=== PATIENT | female | born 1980 | race Caucasian/White ===

== ENCOUNTER 2022-08-23 07:50 | Emergency (ER) | payer BC, SELFPAY ==
--- NOTE | ~2022-08-23 | XR_ITS ---
XR cervical spine 4-5V 08/23/2022 08:21 Indication: Posterior neck pain. Procedure: 4 views of the cervical spine Comparison: No prior studies for comparison. Findings: Straightening of cervical lordosis, likely due to muscle spasm or patient positioning. Vert ebral body heights are maintained. No prevertebral soft tissue swelling. There is mild degenerative d isc disease at C5-6 and C6-7. There is mild multilevel uncinate hypertrophy. Lung apices are normal. Odontoid process is normal. Impression: 1: No acute abnormality of the cervical spine. 2: Mild cervical spondylosis. Reviewed, dictated and finalized at location B. Impression: 1: No acute abnormality of the cervical spine. 2: Mild cervical spondylosis.
[2022-08-23 07:50] VITALS: BP 125/84; PULSE 90; RESP 16; TEMP 36.1; O2SAT 100
[2022-08-23] MEDS: HYDROmorphone HCL INJ (*CRX) 1 MG/ML SYR IM (08:47)
[2022-08-23] MEDS: CYCLOBENZAPRINE HCL 10 MG TABLET PO (08:51)
--- NOTE | 2022-08-23 09:06 | ED.NECK ---
HPI - Neck Pain/Injury General Chief Complaint: Neck Pain/Injury Stated Complaint: NECK PAIN [id number] Time Seen by Provider: 08/23/22 08:00 History of Present Illness HPI Narrative: Pt complains of pain in her left neck and upper back for several weeks. 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 Pt denies other injury. Pt has tried OTC meds and her hydrocodone without relief. Pt denies numbness or weakness. Pt sasy the pain sometimes shoots into her left shoulder in the back. Related Data Allergies Allergy/AdvReac Type Severity Reaction Status Date / Time ANTIHISTAMINES Allergy Unknown Unknown Uncoded 08/23/22 08:02 Review of Systems Review of Systems: All systems reviewed & are unremarkable except as noted in HPI and below PMFSH Family History Family History (Updated 06/16/16 @ 23:21 by DOCTOR UNKNOWN) Father Hypertension Patient's father is in good health Cerebrovascular accident Family history of heart disease in male family member before age 55 Mother Patient's mother is in good health Family history of diabetes mellitus in first degree relative Sibling Family history of diabetes mellitus in first degree relative Social History Social History Smoking status: Heavy tobacco smoker Alcohol intake: current Exam Const: General: healthy appearing and no acute distress Nutritional Appearance: well nourished Orientation/consciousness: patient oriented x3 Limitations: no limitations HENMT: Head: normal to inspection Eyes: Pupils: Equal, round and reactive pupils present EOM: EOMs intact bilaterally Neck: Neck: normal visual inspection and no lymphadenopathy Other: tender left low c spine and left rhomboid with spasm. Chest: Chest palpation & inspection: normal inspection of the chest Resp: Effort & Inspection: normal respiratory effort Auscultation: clear to auscultation bilaterally Cardio: Rate: regular rate Rhythm: regular rhythm GI: GI Palp: Yes Soft to palpation Auscultation: normal bowel sounds Skin: General skin exam: normal color Rashes: no rashes Neuro: General: patient oriented x3 Cranial nerves: Yes Nystagmus not present Speech: normal speech Other: strength 5/5 in both upper extremities Extrem: General: normal to inspection and no clubbing, cyanosis or edema Psych: Mental Status: mental status grossly normal Affect: normal affect Attitude: cooperative Course Vital Signs Vital signs: Vital Signs Temperature 97 F L 08/23/22 07:50 Pulse Rate 90 08/23/22 07:50 Respiratory Rate 16 08/23/22 07:50 Blood Pressure 125/84 08/23/22 07:50 Pulse Oximetry 100 08/23/22 07:50 Oxygen Delivery Room Air 08/23/22 07:50 Temperature 97 F L 08/23/22 07:50 Pulse Rate 78 08/23/22 09:41 Respiratory Rate 16 08/23/22 09:41 Blood Pressure 110/75 08/23/22 09:41 Pulse Oximetry 100 08/23/22 09:41 Oxygen Delivery Room Air 08/23/22 07:50 Discharge Plan Discharge Clinical Impression: Strain of neck muscle Patient Disposition: Home, Self-Care Condition: Improved Instructions: Antibiotic Form, Cervical Strain (ED), Cervical Radiculopathy (ED) Prescriptions: New prednisone 10 mg tablets,dose pack See Rx Instructions .ROUTE .COMPLEX Qty: 48 0RF Rx Instructions: orally per package directions cyclobenzaprine 10 mg tablet 10 mg PO TID Qty: 30 0RF cyclobenzaprine 10 mg tablet 10 mg PO TID Qty: 30 0RF prednisone 10 mg tablets,dose pack See Rx Instructions .ROUTE .COMPLEX Qty: 48 0RF Rx Instructions: orally per package directions Follow-up/Referrals: PHYSICIAN NOT ON STAFF,NONSTAFF [Primary Care Provider] - Stand Alone Forms: Work/School Release IP
[2022-08-23 09:41] VITALS: BP 110/75; PULSE 78; RESP 16; O2SAT 100
== END 2022-08-23 09:45 | disposition home or self-care (01) ==
PROVIDERS: Emergency Provider Emergency Medicine
DX: S16.1XXA Strain of muscle, fascia and tendon at neck level, initial encounter (principal); F17.200 Nicotine dependence, unspecified, uncomplicated; X50.9XXA Other and unspecified overexertion or strenuous movements or postures, initial encounter
CPT/HCPCS: 72050; 96372; 99283; A9270; J1170

== ENCOUNTER 2023-11-23 17:22 | Emergency (ER) | payer BC, SELFPAY ==
--- NOTE | 2023-11-23 18:04 | PC.NURSE ---
called twice for triage, not in waiting room
== END 2023-11-23 18:56 | disposition left against medical advice (07) ==
DX: Z53.21 Procedure and treatment not carried out due to patient leaving prior to being seen by health care provider (principal)
CPT/HCPCS: 99199

== ENCOUNTER 2024-02-14 11:28 | Observation (INO) | payer BC, SELFPAY ==
[2024-02-14] VITALS (16 sets, daily range): BP systolic 118–156; BP diastolic 75–109; PULSE 57–95; RESP 16–20; TEMP 36.2–36.6; O2SAT 95–100; BMI 29.4
--- NOTE | ~2024-02-14 | XR_ITS ---
EXAMINATION: XR stent kub - surgery DATE: 02/15/2024 12:55 INDICATION: Left internal ureteral stent placement TECHNIQUE: Fluoroscopic images from a left internal ureteral stent placement are submitted for review . 17 seconds of fluoroscopy time. 2 fluoroscopic images FINDINGS: There is a left double-J internal ureteral stent projecting in expected position, with proximal Almyra loop at the level of the renal pelvis and distal loop in the pelvis within the bladder lumen. IMPRESSION: 1. Left internal ureteral stent placement. Please refer to real-time procedural findings for detail s. Reviewed, dictated and finalized at location B. IMPRESSION: 1. Left internal ureteral stent placement. Please refer to real-time procedur al findings for details.
--- NOTE | ~2024-02-14 | CT_ITS ---
EXAMINATION: CT abdomen pelvis w con INDICATION: Left flank pain TECHNIQUE: Computed tomographic images of the abdomen and pelvis were obtained after the administrati on of 100 cc of Omnipaque 350 intravenous contrast. The dose-length product (DLP) was 445.63 mGy-cm. Automated exposure control and iterative reconstruction technique were employed. COMPARISON: 04/27/2015 FINDINGS: Minimal dependent atelectasis is present in the lung bases. The heart size is normal. The l iver, spleen, pancreas, gallbladder, and adrenal glands are normal. The right kidney is unremarkable. There is a 12 mm cyst of the left kidney lower pole. There is a 5 mm nonobstructing stone of the lef t kidney lower pole as well. There is mild cortical thinning of the left kidney compared to the right . There is an 11 mm stone at the left ureterovesicular junction. No pathologically enlarged abdominal or pelvic lymph nodes are identified. No free intraperitoneal gas or evidence of bowel obstruction. The appendix is normal. IMPRESSION: 1. 11 mm stone at the left ureterovesicular junction. 2. Nonobstructing left nephrolithiasis. Reviewed, dictated and finalized at location F.
--- NOTE | 2024-02-14 13:55 | ED.ABDPAIN ---
HPI - Abdominal Pain General Chief Complaint: Abdominal Pain <Mariella Hinds PA-C - Last Filed: 02/14/24 13:56> Stated Complaint: left flank pain <Mariella Hinds PA-C - Last Filed: 02/14/24 13:56> Time Seen by Provider: 02/14/24 14:23 <Mariella Hinds PA-C - Last Filed: 02/14/24 13:56> Focused HPI: 43-year-old female history of chronic pain presents to emergency department for left flank pain and left lower quadrant abdominal pain that started 3 days ago. Patient reports associated nausea, no emesis. She is currently on her menstrual cycle. Denies known hematuria or dysuria, emesis, prior abdominal surgeries. Denies history of kidney stones or diverticulitis. She has never had pain like this before. GENERAL: Well-appearing, well-nourished, and in no acute distress. HEAD: Normocephalic, atraumatic. CHEST: Clear to auscultation. ?No respiratory distress. ABD: mild tenderness in the left lower quadrant, CVA tenderness. No guarding, rebound or rigidity. HEART: Regular rate and rhythm.? NEURO: ?Alert and oriented x3. Patient screened in triage and initial orders placed.? ?Additional care and disposition to be based upon?diagnostic testing and treatment. <Mariella Hinds PA-C - Last Filed: 02/14/24 13:56> History of Present Illness HPI narrative: L flank pain. History of IBS-diarrhea predominant subtype. LBM yesterday. Denies dysuria. She is also on Vivanse and oxycodone; last dose of opiate was 7:30 or 8. LMP 3 days ago which is 19 days early but in the setting of PCOS has irregular periods at baseline; otherwise denies any hematuria. No PMH kidney stones. Patient sees a sign writer letterer or painter Dr Warren in [place] for protruding L4-L5. Denies urinary urgency or frequency. . <Sarah Cotton MD - Last Filed: 02/16/24 09:53> Related Data Home Medications: Home Medications Medication Instructions Recorded Confirmed buspirone 10 mg tablet 10 mg PO DAILY 02/14/24 02/14/24 dicyclomine 20 mg tablet 20 mg PO TID 02/14/24 02/14/24 eluxadoline 100 mg tablet (Viberzi) 100 mg PO BID 02/14/24 02/14/24 fluticasone 250 mcg-salmeterol 50 1 ea inhalation BID PRN Shortness 02/14/24 02/14/24 mcg/dose blistr powdr for Of Breath inhalation lisinopril 10 mg tablet 10 mg PO DAILY 02/14/24 02/14/24 metformin 500 mg tablet,extended 500 mg PO DAILY 02/14/24 02/14/24 release 24 hr oxycodone-acetaminophen 10 mg-325 1 tablet PO Q6-8H PRN Pain 02/14/24 02/14/24 mg tablet rosuvastatin 10 mg tablet 10 mg PO DAILY 02/14/24 02/14/24 <Mariella Hinds PA-C - Last Filed: 02/14/24 13:56> Allergies/Adverse Reactions: Allergies Allergy/AdvReac Type Severity Reaction Status Date / Time No Known Allergies Allergy Verified 02/14/24 22:00 <Mariella Hinds PA-C - Last Filed: 02/14/24 13:56> [facility] Past Medical History Medical History: Medical History (Updated 02/16/24 @ 09:53 by Sarah Cotton MD) Chronic pain r/t sciatica and L4/L5/L6 protruding Irritable bowel syndrome with diarrhea PCOS (polycystic ovarian syndrome) <Mariella Hinds PA-C - Last Filed: 02/14/24 13:56> Surgical History Surgical History: Surgical History History of cervical spinal surgery (03/08/23) anterior cervical discectomy and fusion <Mariella Hinds PA-C - Last Filed: 02/14/24 13:56> Family History Family History: Family History Father Hypertension Patient's father is in good health Cerebrovascular accident Family history of heart disease in male family member before age 55 Mother Patient's mother is in good health Family history of diabetes mellitus in first degree relative Sibling Family history of diabetes mellitus in first degree relative <Mariella Hinds PA-C - Last Filed: 02/14/24 13:56> Social History Social History: Social
[2024-02-14] MEDS: ACETAMINOPHEN 500 MG TABLET 1000 MG PO (14:02)
[2024-02-14] MEDS: ONDANSETRON INJ 4 MG/2 ML VIAL IV PUSH (14:02)
[2024-02-14 14:05] LABS: Basophils Absolute Auto 0.1 K/mm3 (0.0-0.1); Basophils Percent Auto 0.3 % (0.2-1.2); Eosinophils Percent Auto 0.2 % (0-4.4); Hematocrit 49.8 % (37.0-47.0); Hemoglobin 16.7 g/dL (12.0-15.0); Immature Granulocyte Absolute 0.06 K/mm3 (0.00-0.031); Immature Granulocyte Percent A 0.3 % (0-0.5); Lymphocytes Absolute Auto 3.45 K/mm3 (0.9-3.2); Lymphocytes Percent Auto 19.6 % (18.3-44.2); Mean Corpuscular HGB Conc 33.5 g/dl (32-36); Mean Corpuscular Hemoglobin 30.9 pg (26-34); Mean Corpuscular Volume 92.1 fl (80-100); Mean Platelet Volume 8.7 fl (7.4-10.4); Monocytes Absolute Auto 0.8 K/mm3 (0.1-0.6); Monocytes Percent Auto 4.3 % (2.6-8.5); Neutrophils Absolute Auto 13.2 K/mm3 (1.3-6.7); Neutrophils Percent Auto 75.3 % (45.5-73.1); Platelet Count Result 307 k/mm3 (150-375); Red Blood Count 5.41 M/mm3 (4.2-5.4); Red Cell Distribution Width 13.9 % (11.5-14.5); White Blood Count 17.6 K/mm3 (4.5-10.0)
--- NOTE | 2024-02-14 14:11 | PC.NURSE ---
Pt to CT scan via w/c from triage ([facility]) at this time.
[2024-02-14 14:18] LABS: Alanine Aminotransferase 40 U/L (6-35); Albumin Level 4.8 g/dL (3.5-5.1); Alkaline Phosphatase 63 U/L (38-126); Anion Gap 9 mmol/L (4-12); Aspartate Amino Transferase 53 U/L (14-36); Bilirubin,Total 0.8 mg/dL (0.2-1.3); Blood Urea Nitrogen 7 mg/dL (7-17); Carbon Dioxide 25 mmol/L (22-30); Chloride 103 mmol/L (98-107); Estimated CRCL calculation 95 ml/min; Estimated Glomerular Filt Rate > 60; Glucose 165 mg/dL (65-110); Lipase 144 U/L (23-300); Potassium 3.8 mmol/L (3.4-5.0); Sodium 137 mmol/L (137-145)
[2024-02-14 14:44] LABS: Appearance Urine Clear (Clear); Bacteria Urine None Seen /hpf; Bilirubin Urine 1+ (Negative); Blood Urine Trace (Negative); Color Urine Dark Yellow (Yellow); Glucose Urine UA Negative (Negative); Ketones Urine 1+ mg/dL (Negative); Leukocyte Esterase Ur Trace LEU/UL (Negative); Nitrate Urine Negative (Negative); Non Pathogenic Casts 0-2; Protein Urine Trace mg/dL (Negative); Specific Grav Ur 1.027 (1.001-1.035); Squamous Epithelial Cell Urine Few /hpf (Few)
[2024-02-14 14:48] LABS: Add Urine Microscopic? YES
[2024-02-14] MEDS: SODIUM CHLORIDE 0.9% IV 1,000 ML 999 ML IV CONT (14:57)
[2024-02-14] MEDS: MORPHINE SULFATE (*CRX) 4 MG/ML INJ IV PUSH ×2 (14:57→16:24)
--- NOTE | 2024-02-14 15:46 | WPDURCON ---
Assessment and Plan Assessment and plan (1) Left ureteral stone: Code(s): N20.1 - Calculus of ureter Status: Acute Assessment and Plan: Admission for hydration analgesics and IV antibiotics overnight Tomorrow plan either cystoscopy with left ureteroscopy, stone extraction with possible retrograde pyelogram and stent placement if no signs of infection or simple cyst on left stent removal if she has evidence of acute cystitis and/or pyelonephritis overnight Urology Consult Note HPI Date Seen: 02/14/24 Primary Care Provider: UNKNOWN,DOCTOR Consult Narrative Narrative: Lissa Muñoz is a 43 year old female without history of urolithiasis who presents the emergency department a 3 to four-day history of left flank pain and nausea. She denies fevers chills or gross hematuria. CT imaging demonstrates, somewhat surprisingly, a very large 11 mm stone in her left distal ureter just at her left UVJ. There is little if any hydronephrosis. Careful inspection of the CT highly suggest, however that this is indeed a ureteral stone. Pain management has been difficult prompting decision for admission for hydration and analgesics. If there is no sign of acute urinary tract infection tomorrow I will proceed with cystoscopy with laser lithotripsy, stone extraction with possible retrograde pyelography and stent placement. Review of Systems Review of Systems: All systems reviewed & are unremarkable except as noted in HPI and below [facility] Family History Family History (Updated 06/16/16 @ 23:21 by DOCTOR UNKNOWN) Father Hypertension Patient's father is in good health Cerebrovascular accident Family history of heart disease in male family member before age 55 Mother Patient's mother is in good health Family history of diabetes mellitus in first degree relative Sibling Family history of diabetes mellitus in first degree relative Social History Social History Smoking status: Heavy tobacco smoker Alcohol intake: current Meds Home Medications and Allergies Home Medications Medication Instructions Recorded Confirmed Type cyclobenzaprine 10 mg tablet 10 mg PO TID #30 tabs 08/23/22 Rx cyclobenzaprine 10 mg tablet 10 mg PO TID #30 tabs 08/23/22 Rx prednisone 10 mg tablets in a dose See Rx Instructions PO .COMPLEX 08/23/22 Rx pack #48 ea prednisone 10 mg tablets in a dose See Rx Instructions PO .COMPLEX 08/23/22 Rx pack #48 ea Allergies Allergy/AdvReac Type Severity Reaction Status Date / Time ANTIHISTAMINES Allergy Unknown Unknown Uncoded 02/14/24 13:59 Vital Signs Vital Signs - 24 hr 02/14/24 11:35 Temperature 97.2 F L Pulse Rate 95 Respiratory Rate 20 Blood Pressure 127/75 Pulse Oximetry 100 Oxygen Delivery Room Air Exam Const: General: no acute distress Resp: Effort & Inspection: normal respiratory effort GI: Inspection: non-distended GI Palp: No abdominal tenderness and No Guarding due to palpation present (GI) Auscultation: normal bowel sounds Results Labs 02/14/24 13:59 02/14/24 13:59 Labs: Short CBC 02/14/24 Range/Units 13:59 WBC 17.6 H (4.5-10.0) K/mm3 Hgb 16.7 H (12.0-15.0) g/dL Hct 49.8 H (37.0-47.0) % Plt Count 307 (150-375) k/mm3 BMP 02/14/24 13:59 Sodium 137 Potassium 3.8 Chloride 103 Carbon Dioxide 25 BUN 7 Creatinine 0.60 L Glucose 165 H Calcium 10.0 Liver Function 02/14/24 Range/Units 13:59 Total Bilirubin 0.8 (0.2-1.3) mg/dL AST 53 H (14-36) U/L ALT 40 H (6-35) U/L Alkaline Phosphatase 63 (38-126) U/L Albumin 4.8 (3.5-5.1) g/dL Urine 02/14/24 Range/Units 14:12 Urine Color Dark yellow (Yellow) Urine Appearance Clear (Clear) Urine pH 7.0 (5.0-9.0) Ur Specific [place] 1.027 (1.001-1.035) Urine Protein Trace (Negative) mg/dL Urine Glucose (UA) Negative (Negative) mg/dL
--- NOTE | 2024-02-14 17:45 | PM.IMHP ---
H&P: HPI History of Present Illness Date/Time: 02/14/24 17:45 Chief Complaint: Flank Pain Narrative: 43 y/o F presents here with flank pain with PMH of chronic pain r/t sciatica and L4/L5/L6 protruding, IBS, and PCOS. Patient presents here from home for further evaluation of left flank pain and left lower quadrant abdominal pain. Pain initially began insidiously a few weeks ago and significantly worsened 3 days ago. Pain described as stabbing, radiation from LLQ to L flank, and no aggravating/alleviating factors. Has been experiencing associated nausea (new) and body aches (chronic, no change). Denies vomiting, diarrhea, fever or chills. Denies dysuria, urinary frequency, or hematuria. Currently on cycle. No history of kidney stones are diverticulitis. No recent infections, last UTI was 3 months ago. Currently experiencing 10/10 pain otherwise no other complaints. Follows with [facility] ([place], [place]). Initial VS at presentation: 97.2F, HR 95, RR 20, 127/75, and 100% on RA. ED workup showed: WBC 17.6, Hgb 16.7, creatinine 0.6, glucose 165, LFTs mildly elevated, and UA equivocal. CT of the abdomen pelvis showed an 11 mm stone at the left ureterovesicular junction and nonobstructing left nephrolithiasis. [facility] Past Medical History Medical History Chronic pain r/t sciatica and L4/L5/L6 protruding IBS (irritable bowel syndrome) PCOS (polycystic ovarian syndrome) Surgical History Surgical History History of cervical spinal surgery (03/08/23) anterior cervical discectomy and fusion Family History Family History Father Hypertension Patient's father is in good health Cerebrovascular accident Family history of heart disease in male family member before age 55 Mother Patient's mother is in good health Family history of diabetes mellitus in first degree relative Sibling Family history of diabetes mellitus in first degree relative Social History Social History Smoking packs per day: 1 Smoking cigarettes per day: 20.0 Years smoked: 25 Smoking pack-years: 25.00 Smoking status: Heavy tobacco smoker Alcohol intake: current Substance use: current Substance use type: marijuana Do You Feel Safe in your Home?: Yes Lack of Transportation: No Lack of Food: Never True Current Housing: I Have Housing Concerned About Future Housing: YES Difficulty Paying Gas/Electric Bills: No Difficulty Paying for Meds: YES Currently Unemployed: No Education: Don't Know Difficulty w/ Childcare or Family Care: No Spiritual care concerns: No Meds Home Medications and Allergies Home Medications Medication Instructions Recorded Confirmed Type buspirone 10 mg tablet 10 mg PO DAILY 02/14/24 02/14/24 History dicyclomine 20 mg tablet 20 mg PO TID 02/14/24 02/14/24 History eluxadoline 100 mg tablet (Viberzi) 100 mg PO BID 02/14/24 02/14/24 History fluticasone 250 mcg-salmeterol 50 1 ea inhalation BID PRN Shortness 02/14/24 02/14/24 History mcg/dose blistr powdr for Of Breath inhalation lisinopril 10 mg tablet 10 mg PO DAILY 02/14/24 02/14/24 History metformin 500 mg tablet,extended 500 mg PO DAILY 02/14/24 02/14/24 History release 24 hr oxycodone-acetaminophen 10 mg-325 1 tablet PO Q6-8H PRN Pain 02/14/24 02/14/24 History mg tablet rosuvastatin 10 mg tablet 10 mg PO DAILY 02/14/24 02/14/24 History Allergies Allergy/AdvReac Type Severity Reaction Status Date / Time ANTIHISTAMINES Allergy Unknown Unknown Uncoded 02/14/24 13:59 Vital Signs Vital Signs - 24 hr 02/14/24 11:35 02/14/24 15:16 02/14/24 15:31 Temperature 97.2 F L Pulse Rate 95 83 Respiratory Rate 20 18 Blood Pressure 127/75 126/82 119/80 Pulse Oximetry 100 95 98 Oxygen Delivery
--- NOTE | 2024-02-14 18:39 | ADMGEN ---
This patient, Lissa Muñoz, was admitted to Medical Room 257-01. Patient/family oriented to hospital policies and general routines including ID bracelet, bed and alarms, visiting hours, pain management, procedures, bathroom and other care routines, personal items, smoking policy, room service/diet, and visiting hours. Information on how to activate the Rapid Response Team has been discussed. Patient/Family are encouraged to report perceived risks to care and to ask questions if they do not understand what they are told or what they should do.
[2024-02-14] MEDS: LACTATED RINGERS 1,000 ML 75 ML IV CONT (19:00)
[2024-02-14] MEDS: oxyCODONE/ACETAMINOPHEN (*CRX) 10-325 MG TABLET 1 TAB PO (19:00)
[2024-02-14] MEDS: MORPHINE SULFATE (*CRX) 2 MG/ML INJ IV PUSH (22:19)
[2024-02-14] MEDS: diphenhydrAMINE HCl INJ 50 MG/ML VIAL 25 MG IV PUSH (23:44)
[2024-02-15] VITALS (13 sets, daily range): BP systolic 105–142; BP diastolic 74–92; PULSE 61–84; RESP 10–19; TEMP 35.8–36.6; O2SAT 96–100
[2024-02-15] MEDS: oxyCODONE/ACETAMINOPHEN (*CRX) 10-325 MG TABLET 1 TAB PO ×2 (02:33→08:43)
[2024-02-15 05:39] LABS: Hemoglobin A1C 6.2 % (<5.7)
[2024-02-15 05:41] LABS: Basophils Absolute Auto 0.1 K/mm3 (0.0-0.1); Basophils Percent Auto 0.4 % (0.2-1.2); Eosinophils Absolute Auto 0.2 K/mm3 (0-0.3); Eosinophils Percent Auto 1.1 % (0-4.4); Hematocrit 46.3 % (37.0-47.0); Hemoglobin 14.9 g/dL (12.0-15.0); Immature Granulocyte Absolute 0.06 K/mm3 (0.00-0.031); Immature Granulocyte Percent A 0.4 % (0-0.5); Lymphocytes Absolute Auto 4.84 K/mm3 (0.9-3.2); Lymphocytes Percent Auto 30.6 % (18.3-44.2); Mean Corpuscular HGB Conc 32.2 g/dl (32-36); Mean Corpuscular Hemoglobin 30.4 pg (26-34); Mean Corpuscular Volume 94.5 fl (80-100); Mean Platelet Volume 9.1 fl (7.4-10.4); Monocytes Absolute Auto 0.9 K/mm3 (0.1-0.6); Monocytes Percent Auto 5.8 % (2.6-8.5); Neutrophils Absolute Auto 9.8 K/mm3 (1.3-6.7); Neutrophils Percent Auto 61.7 % (45.5-73.1); Platelet Count Result 272 k/mm3 (150-375); Red Cell Distribution Width 13.6 % (11.5-14.5); White Blood Count 15.8 K/mm3 (4.5-10.0)
[2024-02-15 05:45] LABS: Anion Gap 4 mmol/L (4-12); Blood Urea Nitrogen 9 mg/dL (7-17); Carbon Dioxide 26 mmol/L (22-30); Chloride 106 mmol/L (98-107); Estimated CRCL calculation 95 ml/min; Estimated Glomerular Filt Rate > 60; Glucose 111 mg/dL (65-110); Potassium 3.8 mmol/L (3.4-5.0); Sodium 136 mmol/L (137-145)
--- NOTE | 2024-02-15 06:27 | WPDHPUPDATE1 ---
History and Physical Update Update Date/Time: 02/15/24 06:27 History and Physical has been reviewed, including an updated exam of the patient. There are NO changes in the patient's condition. Risks, benefits, and alternatives have been discussed and questions answered. Patient agrees to proceed with procedure.
--- NOTE | 2024-02-15 07:12 | ECG_ITS ---
Measurements Intervals Raymond Rate: 69 P: 62 MA: 160 QRS: 17 QRSD: 80 T: 29 QT: 393 QTc: 423 Interpretive Statements SINUS RHYTHM BASELINE ARTIFACT- V3-V4 NORMAL ECG NO PREVIOUS ECG AVAILABLE FOR COMPARISON Electronically Signed On 02-15-2024 10:40:25 CDT by Ab Haskins D.O.
[2024-02-15 08:41] LABS: Glucose Point of Care 135 mg/dl (65-105)
[2024-02-15] MEDS: busPIRone HCL 10 MG TABLET PO (08:44)
--- NOTE | 2024-02-15 11:31 | WPDANESEPPF ---
Anes - Initial Pre Proc Eval Procedure: Operation Date: 02/15/24 12:30 Proposed Procedures p Cystoscopy, Left Retrograde Pylogram, Left Ureteroscopy, Left Stone Extraction, Possible Holmium Laser, Possible Stent Placement(Left) - Sher Mattson MD Date/Time: 02/15/24 11:31 Surgeon: Fito Junior MD Pre Op Diagnosis: 11mm Stone, plan for OR 02/14 Patient Data Age: 43 Gender: F Height: 1.57 m Weight: 72.9 kg Last Vital Signs Temp 36.2 C L 02/15/24 11:28 Pulse 71 02/15/24 11:28 Resp 18 02/15/24 11:28 BP 111/76 02/15/24 11:28 Pulse Ox 100 02/15/24 11:28 O2 Del Method Room Air 02/15/24 11:28 Allergies Allergy/AdvReac Type Severity Reaction Status Date / Time No Known Allergies Allergy Verified 02/14/24 22:00 Home Medications Medication Instructions Recorded Confirmed Type buspirone 10 mg tablet 10 mg PO DAILY 02/14/24 02/14/24 History dicyclomine 20 mg tablet 20 mg PO TID 02/14/24 02/14/24 History eluxadoline 100 mg tablet (Viberzi) 100 mg PO BID 02/14/24 02/14/24 History fluticasone 250 mcg-salmeterol 50 1 ea inhalation BID PRN Shortness 02/14/24 02/14/24 History mcg/dose blistr powdr for Of Breath inhalation lisinopril 10 mg tablet 10 mg PO DAILY 02/14/24 02/14/24 History metformin 500 mg tablet,extended 500 mg PO DAILY 02/14/24 02/14/24 History release 24 hr oxycodone-acetaminophen 10 mg-325 1 tablet PO Q6-8H PRN Pain 02/14/24 02/14/24 History mg tablet rosuvastatin 10 mg tablet 10 mg PO DAILY 02/14/24 02/14/24 History Laboratory Tests 02/14/24 02/14/24 02/15/24 13:59 14:12 04:43 WBC 17.6 H K/mm3 15.8 H K/mm3 (4.5-10.0) (4.5-10.0) RBC 5.41 H M/mm3 4.90 M/mm3 (4.2-5.4) (4.2-5.4) Hgb 16.7 H g/dL 14.9 g/dL (12.0-15.0) (12.0-15.0) Hct 49.8 H % 46.3 % (37.0-47.0) (37.0-47.0) MCV 92.1 fl 94.5 fl (80-100) (80-100) MCH 30.9 pg 30.4 pg (26-34) (26-34) MCHC 33.5 g/dl 32.2 g/dl (32-36) (32-36) RDW 13.9 % 13.6 % (11.5-14.5) (11.5-14.5) Plt Count 307 k/mm3 272 k/mm3 (150-375) (150-375) MPV 8.7 fl 9.1 fl (7.4-10.4) (7.4-10.4) Immature Gran % (Auto) 0.3 % 0.4 % (0-0.5) (0-0.5) Neut % (Auto) 75.3 H % 61.7 % (45.5-73.1) (45.5-73.1) Lymph % (Auto) 19.6 % 30.6 % (18.3-44.2) (18.3-44.2) [place] % (Auto) 4.3 % 5.8 % (2.6-8.5) (2.6-8.5) Eos % (Auto) 0.2 % 1.1 % (0-4.4) (0-4.4) Baso % (Auto) 0.3 % 0.4 % (0.2-1.2) (0.2-1.2) Lymph # (Auto) 3.45 H K/mm3 4.84 H K/mm3 (0.9-3.2) (0.9-3.2) [place] # (Auto) 0.8 H K/mm3 0.9 H K/mm3 (0.1-0.6) (0.1-0.6) Eos # (Auto) 0.0 K/mm3 0.2 K/mm3 (0-0.3) (0-0.3) Baso # (Auto) 0.1 K/mm3 0.1 K/mm3 (0.0-0.1) (0.0-0.1) Abs Immat Gran (auto) 0.06 H K/mm3 0.06 H K/mm3 (0.00-0.031) (0.00-0.031) Absolute Neuts (auto) 13.2 H K/mm3 9.8 H K/mm3 (1.3-6.7) (1.3-6.7) Absolute Nucleated RBC 0.000 K/mm3 0.000 K/mm3 (0.0-0.012) (0.0-0.012) Nucleated RBC % 0.0 % 0.0 % (0.0-0.2) (0.0-0.2) Sodium 137 mmol/L 136 L mmol/L (137-145) (137-145) Potassium 3.8 mmol/L 3.8 mmol/L (3.4-5.0) (3.4-5.0) Chloride 103 mmol/L 106 mmol/L (98-107) (98-107) Carbon Dioxide 25 mmol/L 26 mmol/L (22-30) (22-30) Anion Gap 9 mmol/L 4 L mmol/L (4-12) (4-12) BUN 7 mg/dL 9 mg/dL (7-17) (7-17) Creatinine 0.60 L mg/dL 0.60 L mg/dL (0.7-1.0) (0.7-1.0) Estim Creat Clear Calc 95 ml/min 95 ml/min Estimated GFR > 60 > 60 (59 - ) (59 - ) Glucose 165 H mg/dL 111 H mg/dL (65-110) (65-110) POC Capillary Glucose Hemoglobin A1c 6.2 H % (<5.7) Calcium 10.0 mg/dL 9.0 mg/dL (8.4-10.2) (8.4-10.2) Total Bilirubin 0.8 mg/dL (0.2-1.3) AST 53 H U/L (14-36) ALT 40 H U/L
[2024-02-15 11:48] LABS: Glucose Point of Care 134 mg/dl (65-105)
[2024-02-15] MEDS: LACTATED RINGERS 1,000 ML 30 ML IV CONT (12:00)
[2024-02-15] MEDS: LIDOCAINE HCL 2% GEL UROJET 10 ML PKG MUCOUS MEM (12:44)
--- NOTE | 2024-02-15 13:00 | W.PM.PROC2 ---
Procedure Note - Detailed Date of Procedure 02/15/24 Pre-op Diagnosis Large left distal ureteral calculus Post-op Diagnosis Same Procedure Performed Cystoscopy, left ureteroscopy with laser lithotripsy, stone extraction and left ureteral stent placement Surgeon Sher Mattson MD Anesthesia General Description of Procedure Patient is brought to the operative suite where she was prepped draped in routine sterile fashion while in dorsal lithotomy position after the uneventful induction of a general LMA anesthetic. Cystoscopy was undertaken with a 19 F rigid cystoscope. Bladder neck and urethra normal. There was no intravesical foreign body neoplasm. I can see a stone in her left intramural ureter is right at the ostium of the ureteral orifice. Placed a 0.035 in glidewire to the left renal pelvis. Using a semi-rigid ureteral scope and a 200 micron Fan laser fiber set on ureteral dusting dusted the stone into multiple small fragments all of which were removed with a 1.9 F disposable stone basket. I placed a 4.8 F variable length ureteral stent with the proximal coil in the renal pelvis distal coil in the bladder. Scopes and wires removed. She was taken recovery room good condition Drains Yes Packing Yes Pathology Yes Complications No immediate complications Condition Stable
[2024-02-15] MEDS: KETOROLAC 15 MG/ML VIAL (*BKC) 30 MG IV PUSH (13:24)
[2024-02-15] MEDS: fentaNYL CITRATE INJ (*CRX) 100 MCG/2 ML VIAL 25 MCG IV PUSH ×8 (13:30→13:47)
[2024-02-15 13:33] LABS: Glucose Point of Care 116 mg/dl (65-105)
[2024-02-15] MEDS: HYDROmorphone HCL INJ (*CRX) 1 MG/ML SYR IV PUSH ×3 (13:56→14:29)
--- NOTE | 2024-02-15 15:05 | PM.IMPN ---
Progress Note: A&P Assessment and Plan (1) Left ureteral stone: Code(s): N20.1 - Calculus of ureter Status: Acute Assessment and Plan: - CT abdomen pelvis w/con (02/13): 1. 11 mm stone at the left ureterovesicular junction. 2. Nonobstructing left nephrolithiasis. - WBC 17.6, has previously been elevated and saw heme/onc who were unable to provide a dx, father has similar issue. - urology is consulted - cystoscopy today with left ureteroscopy, stone extraction, possible retrograde pyelogram and stent placement if no signs of infection or simple cyst on left. Stent removal if there is evidence of acute cystitis and/or pyelonephritis overnight Analgesia IV hydration ceftriaxone - UA: 1+ ketones, 1+ bilirubin, trace leuks, 11-20 RBC, 6-10 WBC, few epithelial cells, and no bacteria. - UC pending - IV fluids: LR at 75 mL/hr - pain control, does have chronic pain and goes to [facility] ([place], [place]). On oxycodone-acetaminophen 10-325 mg 1 tablet every 6-8 hours for pain. Plan Diet: Regular GI Prophylaxis: Not currently indicated DVT Prophylaxis: SCDs Lines: Peripheral Code Status: Full code Subjective Date/time seen: 02/15/24 15:05 Interval history: Patient reporting pain this morning on exam, but had just received pain medication shortly prior. Continues to endorse flank pain. Urology plan to take patient for cystoscopy early afternoon. Will continue AB therapy and monitor response. Review of Systems Review of Systems: All systems reviewed & are unremarkable except as noted in HPI and below Exam Const: General: comfortable and no acute distress Other: , female, not toxic appearance HENMT: Face/Nose/Sinus: Normal nares present Mouth: Yes moist mucous membranes Eyes: General: appearance normal, both eyes and all related structures Sclera: sclerae normal Pupils: Equal, round and reactive pupils present EOM: EOMs intact bilaterally Neck: Neck: supple Resp: Effort & Inspection: normal respiratory effort Auscultation: clear to auscultation bilaterally Cardio: Rate: regular rate Rhythm: regular rhythm Other: S1-S2 present without murmur, rub, ectopy GI: Auscultation: normal bowel sounds Other: Soft, nondistended : Bimanual exam- vagina & uterus: Cervical tenderness present Other: + CVA tenderness on the left. Skin: General skin exam: normal color and no rashes or lesions noted Wounds: no wounds Neuro: General: gait normal Cranial nerves: Yes Equal, round and reactive pupils present Speech: normal speech Sensory Exam: normal sensation Other: A&O x4 Extrem: General: normal to inspection Psych: Mental Status: mental status grossly normal Affect: normal affect Other: Good insight judgment. Objective Data Vital Signs Vital Signs: Vital Signs - 24 hr 02/14/24 15:16 02/14/24 15:31 02/14/24 15:45 Temperature Pulse Rate 83 Respiratory Rate 18 Blood Pressure 126/82 119/80 Pulse Oximetry 95 98 98 Oxygen Delivery Oxygen Flow Rate 02/14/24 15:47 02/14/24 16:01 02/14/24 16:02 Temperature Pulse Rate Respiratory Rate Blood Pressure 156/109 H 136/84 Pulse Oximetry 100 98 100 Oxygen Delivery Oxygen Flow Rate 02/14/24 16:02 02/14/24 16:15 02/14/24 16:16 Temperature Pulse Rate Respiratory Rate Blood Pressure 128/89 Pulse Oximetry 99 97 100 Oxygen Delivery Oxygen Flow Rate 02/14/24 16:32 02/14/24 16:45 02/14/24 17:00 Temperature Pulse Rate Respiratory Rate Blood Pressure Pulse Oximetry 100 100 99 Oxygen Delivery Oxygen Flow Rate 02/14/24 17:15 02/14/24 17:30 02/14/24 18:46 Temperature Pulse Rate 78 Respiratory Rate 18 Blood Pressure 127/83 Pulse Oximetry 98 98 Oxygen Delivery Room Air Oxygen Flow Rate 02/14/24 18:47 02/14/24 21:23 02/14/24 22:19 Temperature 97.8 F 97.9 F Pulse Rate 75
[2024-02-15] MEDS: IBUPROFEN 400 MG TABLET PO (17:00)
--- NOTE | 2024-02-21 06:15 | PM.DS ---
DS: Admitting Diagnosis Discharge Date 02/15/24 Admitting Diagnosis Left ureteral stone DS: Discharge Diagnosis Discharge Diagnosis (1) Left ureteral stone: Code(s): N20.1 - Calculus of ureter Status: Acute DS: Summary Hospital Course Hospital Course: Flu she was seen in the emergency department with a painful obstructing left distal ureteral stone. Fairly immediately she has left ureteroscopy with laser lithotripsy stone extraction and stent placement. Subsequently, pain resolved and she was tolerating regular diet. Add fiber discharge she had been afebrile. She was instructed to follow-up within 7-10 days for stent Time Spent with Patient Time attestation: Total time spent providing and/or coordinating discharge services: DS: Data Data Completed and Pending Completed studies during hospitalization: Pending at discharge 02/15/24 12:48 Surgical [PTH] Routine Discharge Plan Discharge Attending physician on discharge: Fito Junior Consulting providers: Mariella Hinds; Sher Mattson; Twin Todd; Maximus Howell; Latisha Pleitez; Ab Haskins; Rubia Workman; Karsten Johns Discharging Clinician: Sehr Mattson Patient Disposition: Home, Self-Care Activity: other - see discharge instructions Diet: other - see discharge instructions Discharge Instructions: 1) Activity: no driving or important decisions x24 hours. 2) Diet: resume your normal, pre-admission diet. 3) Follow-up: 7-14 days for stent removal / call for appointment ([phone]). Patient Instructions: Antibiotic Form, How to Stop Smoking (GEN) Stand Alone Forms: General Discharge Information Follow-up/Referrals: Sher Mattson MD [Physician] - Discharge Medications: New ketorolac 10 mg tablet 10 mg PO Q6H 5 Days Qty: 20 0RF cefdinir 300 mg capsule 300 mg PO Q12H Qty: 14 0RF Continued fluticasone propion-salmeterol 250-50 mcg/dose blister with device 1 ea INHALATION BID PRN (Reason: Shortness Of Breath) oxycodone-acetaminophen 10-325 mg tablet 1 tablet PO Q6-8H PRN (Reason: Pain) dicyclomine 20 mg tablet 20 mg PO TID buspirone 10 mg tablet 10 mg PO DAILY lisinopril 10 mg tablet 10 mg PO DAILY metformin 500 mg tablet extended release 24 hr 500 mg PO DAILY rosuvastatin 10 mg tablet 10 mg PO DAILY Viberzi 100 mg tablet 100 mg PO BID Date of admission: 02/14/24 16:45 Primary Care Provider: Judson,Francisco Javier Ross Admitting Provider: Fito Junior Attending physician on admission: Sher Mattson Condition: Stable
== END 2024-02-15 16:50 | disposition home or self-care (01) ==
LOC: ANHED 15:38 → ANH2MED 18:30
PROVIDERS: Physician Assistant; Student in an Organized Health Care Education/Training Program; Admitting Provider Hospitalist; Emergency Provider Student in an Organized Health Care Education/Training Program; Visit Provider Urology
PROC: (CPT 52352; principal; 2024-02-15 12:30)
DX: N20.1 Calculus of ureter (principal); N28.1 Cyst of kidney, acquired; K58.0 Irritable bowel syndrome with diarrhea; G89.29 Other chronic pain; E28.2 Polycystic ovarian syndrome; F17.210 Nicotine dependence, cigarettes, uncomplicated; Z98.890 Other specified postprocedural states; F10.90 Alcohol use, unspecified, uncomplicated; F12.90 Cannabis use, unspecified, uncomplicated; Z79.51 Long term (current) use of inhaled steroids; Z79.84 Long term (current) use of oral hypoglycemic drugs; Z79.52 Long term (current) use of systemic steroids; Z79.891 Long term (current) use of opiate analgesic; Z79.899 Other long term (current) drug therapy
CPT/HCPCS: 52356; 36415; 74177; 80048; 80053; 81001; 81025; 82365; 82948; 83036; 83690; 85025; 87086; 87088; 88300; 93005; 96361; 96365; 96375; 96376; 99285; A9270; C1769; C2617; G0378; J0690; J0696; J1100; J1170; J1200; J1885; J2250; J2270; J2405; J2704; J3010; J7030; J7120; Q9966; Q9967

== ENCOUNTER 2024-03-07 09:34 | Inpatient (IN) | payer BC, SELFPAY ==
[2024-03-07] VITALS (7 sets, daily range): BP systolic 89–132; BP diastolic 56–96; PULSE 69–87; RESP 14–20; TEMP 36.1–36.9; O2SAT 98–100; BMI 29.8
--- NOTE | ~2024-03-07 | US_ITS ---
Limited Abdominal Sonogram: Real-time sonographic imaging of the right upper quadrant was performed. Clinical History: Abnormal lipase Findings: The liver appears echogenic, with no evidence of mass lesion or bile duct dilatation. Main portal vein demonstrates normal direction of flow. The gallbladder is well distended, and appears no rmal with no evidence of gallstone or wall thickening. The common bile duct measures 10 mm. The visu alized pancreas, aorta, and IVC are unremarkable. Impression: Diffuse fatty infiltration of liver. Dilated common bile duct, uncertain etiology. No definite gallstone is seen. Consider MRCP as indicat ed. Reviewed, dictated and finalized at location . Impression: Diffuse fatty infiltration of liver. Dilated common bile duct, uncertain etiology. No definite gallstone is seen. Co nsider MRCP as indicated.
--- NOTE | ~2024-03-07 | CT_ITS ---
Non-contrast CT scan of the Abdomen and Pelvis Clinical indication: Left flank pain Technique: 2.5 mm axial scans were obtained through the abdomen and pelvis without intravenous or or al contrast. Dose reduction technique was used on this scan by utilizing automated exposure control a nd iterative reconstruction technique. The dose-length product (DLP) was 208.11 mGy-cm. COMPARISON: 02/14/2024 Findings: Images through the lung bases reveal no abnormalities. Probable minimal fullness of left renal collecting system and left ureter, which could reflect a pass ed stone. No ureteral stones seen currently. Small nonobstructing left lower pole renal stones are pr esent. No right renal or ureteral stone. No right hydronephrosis. The liver, spleen, pancreas, gallbladder, and adrenals appear normal. There is no aortic aneurysm. There is no evidence of bowel obstruction. Images through the pelvis were performed. There is no evidence of ascites or lymphadenopathy. Urinary bladder unremarkable. No pelvic mass seen. No ascites. Impression: Minimal fullness of the left renal collecting system and left ureter could reflect sequelae of recent ly passed stone. No ureteral stones seen currently. Small nonobstructing left lower pole renal stones. Reviewed, dictated and finalized at [facility]. Impression: Minimal fullness of the left renal collecting system and left ureter could refl ect sequelae of recently passed stone. No ureteral stones seen currently. Small nonobstructing left lower pole renal stones.
--- NOTE | ~2024-03-07 | MR_ITS ---
EXAMINATION: MR MRCP wo/w con/w 3D wo ind DATE: 03/08/2024 11:38 INDICATION: Abdominal pain. Bile duct dilatation. TECHNIQUE: Magnetic resonance imaging (MRI) of the abdomen was performed without and with 14 mL Multi Maxine intravenous contrast. Sequences included coronal T2-weighted FS FSE, coronal T2-weighted FSE, a xial T1-weighted LAVA, coronal FS FIESTA, axial dual-echo T1-weighted SPGR, coronal lava-FLEX, sagitt al T2-weighted FSE, axial T2-weighted FSE, and axial DWI. Thick-slab T2-weighted FSE images were obta ined for magnetic resonance cholangiopancreatography (MRCP). Maximum intensity projection 3-D reconst ructions of the volumetric data were created by the technologist. Postcontrast sequences included cor onal LAVA-flex and time course of axial T1-weighted LAVA. COMPARISON: CT abdomen and pelvis 03/07/24 FINDINGS: ABDOMEN MRI: There is diffuse hepatic steatosis. There is a 6 mm cyst in the liver. The gallbladder i s distended. The spleen, pancreas, adrenal glands, and right kidney are normal. There is an 11 mm cys t in left kidney. ABDOMEN MRCP: The common duct is mildly dilated to 7 mm. No choledocholithiasis. IMPRESSION: 1. Mildly dilated common duct. No choledocholithiasis. 2. Gallbladder distention, which may be secondary to fasting. 3. Diffuse hepatic steatosis. Reviewed, dictated and finalized at location A.
--- NOTE | 2024-03-07 10:08 | ED.ABDPAIN ---
HPI - Abdominal Pain General Chief Complaint: Abdominal Pain <Mariella Hinds PA-C - Last Filed: 03/07/24 18:15> Stated Complaint: left flank pain <Mariella Hinds PA-C - Last Filed: 03/07/24 18:15> Time Seen by Provider: 03/07/24 09:47 <Mariella Hinds PA-C - Last Filed: 03/07/24 18:15> History of Present Illness HPI narrative: 43-year-old female with history of chronic pain secondary to protruding L4-L5, IBS presents to emergency department for left flank pain x3 days. Patient was seen in our emergency department on 02/14/2024 for similar symptoms and was diagnosed with an 11 mm stone at the left UVJ. She was admitted to the hospitalist was consulted by urology, Dr. Mattson. She had a cystoscopy with left ureteroscopy, laser lithotripsy, stone extraction and left ureteral stent placement. She had her stent removed approximately 1 week ago and has not had any issues in the interim until symptoms started again 3 days ago. She has also noticed some hematuria but denies dysuria, fevers or vomiting. She endorses associated nausea. States she took oxycodone and ibuprofen at 4:00 a.m. this morning without improvement and has not taken anything since. <Mariella Hinds PA-C - Last Filed: 03/07/24 18:15> Related Data Home Medications: Home Medications Medication Instructions Recorded Confirmed buspirone 10 mg tablet 10 mg PO BID 02/14/24 03/07/24 dicyclomine 20 mg tablet 20 mg PO TID 02/14/24 03/07/24 eluxadoline 100 mg tablet (Viberzi) 100 mg PO BID 02/14/24 03/07/24 fluticasone 250 mcg-salmeterol 50 1 ea inhalation BID PRN Shortness 02/14/24 03/07/24 mcg/dose blistr powdr for Of Breath inhalation lisinopril 10 mg tablet 10 mg PO DAILY 02/14/24 03/07/24 metformin 500 mg tablet,extended 500 mg PO DAILY 02/14/24 03/07/24 release 24 hr oxycodone-acetaminophen 10 mg-325 1.5 tablet PO Q6-8H PRN Pain 02/14/24 03/07/24 mg tablet rosuvastatin 10 mg tablet 10 mg PO HS 02/14/24 03/07/24 <Mariella Hinds PA-C - Last Filed: 03/07/24 18:15> Allergies/Adverse Reactions: Allergies Allergy/AdvReac Type Severity Reaction Status Date / Time No Known Allergies Allergy Verified 02/14/24 22:00 <Mariella Hinds PA-C - Last Filed: 03/07/24 18:15> Review of Systems Review of Systems: CONSTITUTIONAL: Denies fever, chills, or sweats. EYES: Denies visual changes, redness, or discharge. ENT: Denies rhinorrhea, congestion, sore throat, or otalgia. CARDIOVASCULAR: Denies chest pain, palpitations, or edema. RESPIRATORY: Denies cough or dyspnea. GASTROINTESTINAL: See HPI GENITOURINARY: Denies dysuria or hematuria. SKIN: Denies rash or itching. MUSCULOSKELETAL: Denies back pain, joint pain, or myalgia. NEUROLOGIC: Denies headache, numbness, or weakness. PSYCHIATRIC: Denies anxiety or depression. <Mariella Hinds PA-C - Last Filed: 03/07/24 18:15> [facility] Past Medical History Medical History: Medical History (Updated 03/08/24 @ 14:26 by Tyshawn Weber MD) Asthma Chronic pain r/t sciatica and L4/L5/L6 protruding HLD (hyperlipidemia) HTN (hypertension) Irritable bowel syndrome with diarrhea Irritable bowel syndrome with diarrhea PCOS (polycystic ovarian syndrome) <Mariella Hinds PA-C - Last Filed: 03/07/24 18:15> Surgical History Surgical History: Surgical History History of cervical spinal surgery (03/08/23) anterior cervical discectomy and fusion <Mariella Hinds PA-C - Last Filed: 03/07/24 18:15> Family History Family History: Family History Father Hypertension Patient's father is in good health Cerebrovascular accident Family history of heart disease in male family member before age 55 Mother Patient's mother is in good health Family history of diabetes mellitus in first degree relative Sibling Family histor
[2024-03-07] MEDS: MORPHINE SULFATE (*CRX) 4 MG/ML INJ IV PUSH (10:55)
[2024-03-07] MEDS: SODIUM CHLORIDE 0.9% IV 1,000 ML 999 ML IV CONT ×2 (10:55→12:49)
[2024-03-07] MEDS: ONDANSETRON INJ 4 MG/2 ML VIAL IV PUSH (10:55)
[2024-03-07 11:04] LABS: Basophils Absolute Auto 0.1 K/mm3 (0.0-0.1); Basophils Percent Auto 0.5 % (0.2-1.2); Eosinophils Absolute Auto 0.1 K/mm3 (0-0.3); Eosinophils Percent Auto 0.3 % (0-4.4); Hematocrit 50.7 % (37.0-47.0); Hemoglobin 16.8 g/dL (12.0-15.0); Immature Granulocyte Absolute 0.07 K/mm3 (0.00-0.031); Immature Granulocyte Percent A 0.4 % (0-0.5); Lymphocytes Absolute Auto 4.46 K/mm3 (0.9-3.2); Mean Corpuscular HGB Conc 33.1 g/dl (32-36); Mean Corpuscular Hemoglobin 30.9 pg (26-34); Mean Corpuscular Volume 93.4 fl (80-100); Monocytes Absolute Auto 0.9 K/mm3 (0.1-0.6); Monocytes Percent Auto 4.7 % (2.6-8.5); Neutrophils Percent Auto 70.1 % (45.5-73.1); Platelet Count Result 352 k/mm3 (150-375); Red Blood Count 5.43 M/mm3 (4.2-5.4); Red Cell Distribution Width 13.6 % (11.5-14.5); White Blood Count 18.6 K/mm3 (4.5-10.0)
[2024-03-07 11:16] LABS: Alanine Aminotransferase 39 U/L (6-35); Albumin Level 4.8 g/dL (3.5-5.1); Alkaline Phosphatase 67 U/L (38-126); Anion Gap 11 mmol/L (4-12); Aspartate Amino Transferase 41 U/L (14-36); Bilirubin,Total 0.8 mg/dL (0.2-1.3); Blood Urea Nitrogen 11 mg/dL (7-17); Calcium 10.3 mg/dL (8.4-10.2); Carbon Dioxide 22 mmol/L (22-30); Chloride 110 mmol/L (98-107); Estimated CRCL calculation 83 ml/min; Estimated Glomerular Filt Rate > 60; Glucose 116 mg/dL (65-110); Lipase 963 U/L (23-300); Sodium 143 mmol/L (137-145)
[2024-03-07 11:23] LABS: Partial Thromboplastin Time 26.4 Seconds (22.3-36.8); Prothrombin Time 13.7 Seconds (11.1-14.7)
[2024-03-07 12:23] LABS: Bacteria Urine 4+ /hpf; Need Manual Microscopic Reviewed; Non Pathogenic Casts 0-2; RBC Urine >100 /hpf (0-2); Squamous Epithelial Cell Urine Many /hpf (Few); WBC Urine 51-100 /hpf (0-3)
[2024-03-07 12:25] LABS: Appearance Urine Turbid (Clear); Bilirubin Urine 1+ (Negative); Blood Urine 3+ (Negative); Color Urine Dark Yellow (Yellow); Glucose Urine UA Negative (Negative); Ketones Urine Negative (Negative); Leukocyte Esterase Ur 2+ LEU/UL (Negative); Nitrate Urine Negative (Negative); Protein Urine 2+ mg/dL (Negative); Specific Grav Ur 1.034 (1.001-1.035); pH Urine 5.5 (5.0-9.0)
[2024-03-07 12:26] LABS: Add Urine Microscopic? YES
[2024-03-07] MEDS: HYDROmorphone HCL INJ (*CRX) 1 MG/ML SYR 0.5 MG IV PUSH (12:50)
--- NOTE | 2024-03-07 14:28 | PM.IMHP ---
H&P: HPI History of Present Illness Date/Time: 03/07/24 14:28 Chief Complaint: Abdominal pain x3 days Narrative: This is a 43-year-old female with a past medical history of chronic pain secondary to sciatica and lower back pain (follows with pain management), irritable bowel syndrome, polycystic ovarian syndrome, hypertension, hyperlipidemia, and asthma. She presents to the ER with complaints of generalized abdominal pain over the past 3 days with associated nausea. She states she has never experienced pain like this before. Nothing at home seemed to help the pain and eating and drinking made the pain worse. She denies fever chills, headache, dizziness shortness of breath, or chest pain. She reports having a small bowel movement today. She is urinating without difficulties. She does note some blood in her urine however she also states that she has started her menses. She has not eaten anything in the last 24 hours because of the pain. At this time she rates her pain at an 8/10. Of note, she was recently admitted here in January with left flank pain and found to have an 11 mm stone in her left distal ureter at left UVJ. She underwent cystoscopy with laser lithotripsy, stone extraction and placement of a left ureteral stent. She has since followed up with Urology and has had her stent removed. In the ED, labs were significant for leukocytosis 18.6, hemoglobin 16.8, hematocrit 50.7, calcium 10.3, AST 41, ALT 39, and lipase 963. Her urinalysis shows 3+ blood, 1+ bilirubin, 2+ leuks, greater than 100 rbc's, wbc's 51-100, and 4+ bacteria. Urine sample with poor collection as many squamous cells present. CT of her abdomen and pelvis shows fullness of the left renal collecting system and left ureter which could reflect recent sequela of passed stone. No ureteral stones present. She does have a small nonobstructing left lower pole renal stone. Right upper quadrant ultrasound was also performed which shows diffuse fatty infiltration of the liver as well as a dilated common bile duct with unclear etiology. No gallstones present. MRCP will be obtained. GI was also consulted. She is being admitted in this setting as observation for further workup abdominal pain. Review of Systems Review of Systems: All systems reviewed & are unremarkable except as noted in HPI and below PMFSH Past Medical History Medical History Asthma Chronic pain r/t sciatica and L4/L5/L6 protruding HLD (hyperlipidemia) HTN (hypertension) Irritable bowel syndrome with diarrhea PCOS (polycystic ovarian syndrome) Surgical History Surgical History History of cervical spinal surgery (03/08/23) anterior cervical discectomy and fusion Family History Family History Father Hypertension Patient's father is in good health Cerebrovascular accident Family history of heart disease in male family member before age 55 Mother Patient's mother is in good health Family history of diabetes mellitus in first degree relative Sibling Family history of diabetes mellitus in first degree relative Social History Social History (Updated 03/07/24 @ 14:57 by Stella Klein APRN) Social History: Lives at home with her father and , Chinmay Muñoz. Chinmay is her emergency contact ([phone]). Smoking packs per day: 1 Smoking cigarettes per day: 20.0 Years smoked: 25 Smoking pack-years: 25.00 Smoking status: Heavy tobacco smoker Tobacco type: cigarettes Alcohol intake: current Alcohol use details: rarely drinks, a couple time a month Substance use: current Substance use type: marijuana Do You Feel Safe in your Home?: Yes Lack of Transportation: No Lack of Food: Never True Current Housing: I Have Housing Concerned About Future Housing: YES Difficulty Paying Gas/Electric Bills: No Dif
[2024-03-07] MEDS: HYDROmorphone HCL INJ (*CRX) 1 MG/ML SYR IV PUSH (14:36)
[2024-03-07] MEDS: PIPERACILLN/TAZ 3.375GM/NS50ML 3.375 GM/50 ML BAG IVPB ×3 (14:55→23:56)
--- NOTE | 2024-03-07 15:59 | PC.NURSE ---
This patient, Lissa Muñoz, was admitted to [facility] Surg Room 314-02. Patient/family oriented to hospital policies and general routines including ID bracelet, bed and alarms, visiting hours, pain management, procedures, bathroom and other care routines, personal items, smoking policy, room service/diet, and visiting hours. Information on how to activate the Rapid Response Team has been discussed. Patient/Family are encouraged to report perceived risks to care and to ask questions if they do not understand what they are told or what they should do.
[2024-03-07] MEDS: LACTATED RINGERS 1,000 ML 100 ML IV CONT (17:02)
[2024-03-07] MEDS: oxyCODONE/ACETAMINOPHEN (*CRX) 10-325 MG TABLET 1 TAB PO ×2 (17:07→20:39)
[2024-03-07 17:55] LABS: Lactic Acid Reflex 0.9 mmol/L (0.7-2.0)
[2024-03-07 17:58] LABS: CRP < 0.5 mg/dL (<1.0)
[2024-03-07] MEDS: SODIUM CHLORIDE 0.9% IV 100 ML (23:57)
[2024-03-08] MEDS: HYDROmorphone HCL INJ (*CRX) 1 MG/ML SYR IV PUSH ×4 (00:07→17:57)
[2024-03-08] MEDS: oxyCODONE/ACETAMINOPHEN (*CRX) 10-325 MG TABLET 1 TAB PO ×4 (01:59→20:42)
[2024-03-08] MEDS: LACTATED RINGERS 1,000 ML 100 ML IV CONT ×2 (04:17→17:57)
[2024-03-08 05:24] LABS: Basophils Absolute Auto 0.1 K/mm3 (0.0-0.1); Basophils Percent Auto 0.6 % (0.2-1.2); Eosinophils Absolute Auto 0.1 K/mm3 (0-0.3); Eosinophils Percent Auto 0.9 % (0-4.4); Hemoglobin 13.9 g/dL (12.0-15.0); Immature Granulocyte Absolute 0.06 K/mm3 (0.00-0.031); Immature Granulocyte Percent A 0.5 % (0-0.5); Lymphocytes Absolute Auto 3.34 K/mm3 (0.9-3.2); Mean Corpuscular HGB Conc 33.1 g/dl (32-36); Mean Corpuscular Hemoglobin 31.2 pg (26-34); Mean Corpuscular Volume 94.2 fl (80-100); Mean Platelet Volume 9.2 fl (7.4-10.4); Monocytes Absolute Auto 0.5 K/mm3 (0.1-0.6); Monocytes Percent Auto 4.2 % (2.6-8.5); Neutrophils Absolute Auto 8.7 K/mm3 (1.3-6.7); Neutrophils Percent Auto 67.8 % (45.5-73.1); Platelet Count Result 229 k/mm3 (150-375); Red Blood Count 4.46 M/mm3 (4.2-5.4); Red Cell Distribution Width 13.6 % (11.5-14.5); White Blood Count 12.9 K/mm3 (4.5-10.0)
[2024-03-08 05:33] LABS: Hemoglobin A1C 5.8 % (<5.7)
[2024-03-08 05:35] LABS: Alanine Aminotransferase 52 U/L (6-35); Albumin Level 3.6 g/dL (3.5-5.1); Alkaline Phosphatase 44 U/L (38-126); Anion Gap 7 mmol/L (4-12); Aspartate Amino Transferase 67 U/L (14-36); Blood Urea Nitrogen 8 mg/dL (7-17); Calcium 8.8 mg/dL (8.4-10.2); Carbon Dioxide 21 mmol/L (22-30); Chloride 110 mmol/L (98-107); Cholesterol 97 mg/dL (0-200); Estimated CRCL calculation 96 ml/min; Estimated Glomerular Filt Rate > 60; Glucose 108 mg/dL (65-110); HDL Direct 26 mg/dL; Lipase 446 U/L (23-300); Magnesium 1.9 mg/dL (1.6-2.3); Sodium 138 mmol/L (137-145); Triglycerides 153 mg/dL (<150)
[2024-03-08 05:45] LABS: LDL Cholesterol Direct 53 mg/dL
[2024-03-08 05:59] VITALS: BP 92/61; PULSE 64; RESP 12; TEMP 36; O2SAT 99
[2024-03-08] MEDS: PIPERACILLN/TAZ 3.375GM/NS50ML 3.375 GM/50 ML BAG IVPB ×3 (06:15→17:08)
--- NOTE | 2024-03-08 08:10 | P.PNIM_ITS ---
Progress Note: A&P Assessment and Plan (1) Abdominal pain: Qualifiers: Abdominal location: right upper quadrant Qualified Code(s): R10.11 - Right upper quadrant pain Code(s): R10.9 - Unspecified abdominal pain Status: Acute Assessment and Plan: Presents with a 3 day history of abdominal pain that has steadily worsened. Oxycodone and ibuprofen have not helped the pain. She has been unable to eat because of the discomfort. She recently was treated for a kidney stone in the left UVJ in 01/2024. Her stent was removed approximately 1 week ago. * Leukocytosis 18.6 but afebrile. CBC appears possibly hemoconcentrated as H/H is elevated. * Lactic ordered, blood cultures pending * Abdominal pain 06/28 to RUQ and LUQ * Continue home Percocet and PRN Dilaudid * Zofran as needed for nausea * Clear liquid diet okay for now * IV fluids LR at 100 ml per hour * Zosyn continued * urine HCG pending 03/08: * Leukocytosis resolving, WBC 12.9 today. H/H down from 16.8/50.7 to 13.9/42, likely from hemoconcentration. * Lactic normal * BC and urine cultures pending * lipase downtrending 446 today * Still requiring pain medication (2) Common bile duct dilatation: Code(s): K83.8 - Other specified diseases of biliary tract Status: Acute Assessment and Plan: RUQ shows common bile duct dilation with uncertain etiology as well as fatty liver disease * MRCP ordered * GI consulted, rec's appreciated 03/08: * awaiting MRCP to be completed (3) Asthma: Qualifiers: Asthma complication type: uncomplicated Asthma persistence: persistent Asthma severity: mild Qualified Code(s): J45.30 - Mild persistent asthma, uncomplicated Code(s): J45.909 - Unspecified asthma, uncomplicated Status: Acute Assessment and Plan: On daily maintenance inhaler * Resume Advair (4) HLD (hyperlipidemia): Qualifiers: Hyperlipidemia type: unspecified Qualified Code(s): E78.5 - Hyperlipidemia, unspecified Code(s): E78.5 - Hyperlipidemia, unspecified Status: Acute Assessment and Plan: Taking Crestor 10 mg daily * lipid panel ordered for am 03/08: * triglycerides 153, cholesterol 97, ldl 53, hdl 26 (5) HTN (hypertension): Qualifiers: Hypertension type: primary hypertension Qualified Code(s): I10 - Essential (primary) hypertension Code(s): I10 - Essential (primary) hypertension Status: Acute Assessment and Plan: On lisinopril 10 mg daily * SBP 120-130s/ 80-90's * Resume lisinopril 03/08: * BP low today 90/50's * holding lisinopril (6) Leukocytosis: Qualifiers: Leukocytosis type: unspecified Qualified Code(s): D72.829 - Elevated white blood cell count, unspecified Code(s): D72.829 - Elevated white blood cell count, unspecified Status: Acute Assessment and Plan: UTI vs abdominal infection vs inflammation vs hemoconcentration * leukocytosis seen on labs from 01/2024. WBC 15-17 at that admission. * WBC 18.6 today without fever * Patient is a smoker so this could be contributing as well * UA was indicating UTI however it was a poor sample with many squamous cells present. Patient is also on her menses. * Urine culture was sent * Blood cultures sent * RUQ ultrasound is not concerning for acute cholecystitis but rather common bile duct dilatation. Plan Await MRCP results IVF and IV pain meds Clear liquid diet---can possibly advance
--- NOTE | 2024-03-08 08:10 | PM.IMPN ---
Progress Note: A&P Assessment and Plan (1) Abdominal pain: Qualifiers: Abdominal location: right upper quadrant Qualified Code(s): R10.11 - Right upper quadrant pain Code(s): R10.9 - Unspecified abdominal pain Status: Acute Assessment and Plan: Presents with a 3 day history of abdominal pain that has steadily worsened. Oxycodone and ibuprofen have not helped the pain. She has been unable to eat because of the discomfort. She recently was treated for a kidney stone in the left UVJ in 01/2024. Her stent was removed approximately 1 week ago. Leukocytosis 18.6 but afebrile. CBC appears possibly hemoconcentrated as H/H is elevated. Lactic ordered, blood cultures pending Abdominal pain 06/28 to RUQ and LUQ Continue home Percocet and PRN Dilaudid Zofran as needed for nausea Clear liquid diet okay for now IV fluids LR at 100 ml per hour Zosyn continued urine HCG pending 03/08: Leukocytosis resolving, WBC 12.9 today. H/H down from 16.8/50.7 to 13.9/42, likely from hemoconcentration. Lactic normal BC and urine cultures pending lipase downtrending 446 today Still requiring pain medication (2) Common bile duct dilatation: Code(s): K83.8 - Other specified diseases of biliary tract Status: Acute Assessment and Plan: RUQ shows common bile duct dilation with uncertain etiology as well as fatty liver disease MRCP ordered GI consulted, rec's appreciated 03/08: awaiting MRCP to be completed (3) Asthma: Qualifiers: Asthma complication type: uncomplicated Asthma persistence: persistent Asthma severity: mild Qualified Code(s): J45.30 - Mild persistent asthma, uncomplicated Code(s): J45.909 - Unspecified asthma, uncomplicated Status: Acute Assessment and Plan: On daily maintenance inhaler Resume Advair (4) HLD (hyperlipidemia): Qualifiers: Hyperlipidemia type: unspecified Qualified Code(s): E78.5 - Hyperlipidemia, unspecified Code(s): E78.5 - Hyperlipidemia, unspecified Status: Acute Assessment and Plan: Taking Crestor 10 mg daily lipid panel ordered for am 03/08: triglycerides 153, cholesterol 97, ldl 53, hdl 26 (5) HTN (hypertension): Qualifiers: Hypertension type: primary hypertension Qualified Code(s): I10 - Essential (primary) hypertension Code(s): I10 - Essential (primary) hypertension Status: Acute Assessment and Plan: On lisinopril 10 mg daily SBP 120-130s/ 80-90's Resume lisinopril 03/08: BP low today 90/50's holding lisinopril (6) Leukocytosis: Qualifiers: Leukocytosis type: unspecified Qualified Code(s): D72.829 - Elevated white blood cell count, unspecified Code(s): D72.829 - Elevated white blood cell count, unspecified Status: Acute Assessment and Plan: UTI vs abdominal infection vs inflammation vs hemoconcentration leukocytosis seen on labs from 01/2024. WBC 15-17 at that admission. WBC 18.6 today without fever Patient is a smoker so this could be contributing as well UA was indicating UTI however it was a poor sample with many squamous cells present. Patient is also on her menses. Urine culture was sent Blood cultures sent RUQ ultrasound is not concerning for acute cholecystitis but rather common bile duct dilatation. Plan Await MRCP results IVF and IV pain meds Clear liquid diet---can possibly advance this evening if she is going okay and testing is benign Subjective Date/time seen: 03/08/24 08:10 Interval history: This is a 43-year-old female with a past medical history of chronic pain secondary to sciatica and lower back pain (follows with pain management), irritable bowel syndrome, polycystic ovarian syndrome, hypertension, hyperlipidemia, and asthma. She presents to the ER with complaints of generalized abdominal pain over the past 3 days with associ
[2024-03-08] MEDS: ENOXAPARIN 40 MG/0.4 ML SYRINGE SUB-Q (08:40)
[2024-03-08] MEDS: PANTOPRAZOLE SODIUM IV 40 MG VIAL IV PUSH (08:41)
[2024-03-08 08:56] VITALS: O2SAT 98
[2024-03-08 14:00] VITALS: BP 112/76; PULSE 68; RESP 18; TEMP 36.8; O2SAT 100
--- NOTE | 2024-03-08 14:22 | WPDGICN ---
Assessment and Plan Assessment and plan (1) Abdominal pain: Qualifiers: Abdominal location: right upper quadrant Qualified Code(s): R10.11 - Right upper quadrant pain Code(s): R10.9 - Unspecified abdominal pain Status: Acute Assessment and Plan: noted elevated lipase and mild transaminatis pending MRCP (dilated bile duct), may need surgery consult based on findings (2) Common bile duct dilatation: Code(s): K83.8 - Other specified diseases of biliary tract Status: Acute Assessment and Plan: pending mrcp (3) HTN (hypertension): Qualifiers: Hypertension type: primary hypertension Qualified Code(s): I10 - Essential (primary) hypertension Code(s): I10 - Essential (primary) hypertension Status: Acute (4) Asthma: Qualifiers: Asthma severity: mild Asthma persistence: persistent Asthma complication type: uncomplicated Qualified Code(s): J45.30 - Mild persistent asthma, uncomplicated Code(s): J45.909 - Unspecified asthma, uncomplicated Status: Acute (5) Pancreatitis: Qualifiers: Acute pancreatitis complication: unspecified Chronicity: acute Pancreatitis type: biliary Qualified Code(s): K85.10 - Biliary acute pancreatitis without necrosis or infection Code(s): K85.90 - Acute pancreatitis without necrosis or infection, unspecified Status: Acute Assessment and Plan: tg 150, no cholelithiasis- pending mrcp (6) Irritable bowel syndrome with diarrhea: Code(s): K58.0 - Irritable bowel syndrome with diarrhea Status: Acute Assessment and Plan: at some point will need colonoscopy she is already on viberzi- probably will need to discontinue now that she has pancreatitis GI Consult Note Consult date/time: 03/08/24 14:22 Reason for consult: abdominal pain, dilated bile duct HPI: Lissa Muñoz is a 43 year old female with a past medical history of chronic pain secondary to sciatica and lower back pain (follows with pain management), irritable bowel syndrome- diarrhea on viberzi but never had scopes, polycystic ovarian syndrome, hypertension, hyperlipidemia, and asthma. She came to the ER with 3 days of progressive abdominal pain that got severe with associated nausea. About 3 weeks ago had severe pain in left flank and found to have an 11 mm stone in her left distal ureter at left UVJ treated with cystoscopy with laser lithotripsy, stone extraction and placement of a left ureteral stent.? She has since followed up with Urology and has had her stent removed. Labs were significant for leukocytosis 18.6, hemoglobin 16.8, hematocrit 50.7, calcium 10.3, AST 41, ALT 39, and lipase 963.? CT of her abdomen and pelvis shows fullness of the left renal collecting system and left ureter which could reflect recent sequela of passed stone.? No ureteral stones present. Review of Systems Constitutional: Constitutional: Denies headache(s) and Denies weakness Eyes: Eyes: Denies blurry vision ENT: Reports Normal hearing present, Denies headache(s) and Denies neck pain Cardiovascular: Cardiovascular: Denies chest pain and Denies dyspnea Respiratory: Respiratory: Denies dyspnea Gastrointestinal: Gastrointestinal: Reports no additional gastrointestinal complaints Genitourinary: Comments: recent kidney stone Musculoskeletal: Musculoskeletal: Denies stiffness Integumentary/Breasts: Skin/Breast: Denies dry skin Neurologic: Reports Normal hearing present, Denies headache(s) and Denies weakness Psychiatric: Psychiatric: Reports anxiety Endocrine: Endocrine: Denies change in body appearance Hematologic/Lymphatic: Hematologic/Lymphatic: Denies easy bleeding Allergic/Immunologic: Allergic/Immunologic: Denies urticaria PMFSH Past Medical History Medical History (Updated 03/08/24 @ 14:26 by Tyshawn Weber MD) Asthma Chronic pain r/t sciatica and L4/L5/L6 protruding
[2024-03-08 21:14] VITALS: BP 98/58; PULSE 55; RESP 14; TEMP 35.8; O2SAT 99
[2024-03-09] MEDS: PIPERACILLN/TAZ 3.375GM/NS50ML 3.375 GM/50 ML BAG IVPB ×2 (00:42→06:11)
[2024-03-09] MEDS: SODIUM CHLORIDE 0.9% IV 250 ML (00:43)
[2024-03-09] MEDS: oxyCODONE/ACETAMINOPHEN (*CRX) 10-325 MG TABLET 1 TAB PO ×3 (00:43→11:36)
[2024-03-09 06:00] VITALS: BP 127/64; PULSE 81; RESP 16; TEMP 36.2; O2SAT 98
[2024-03-09] MEDS: HYDROmorphone HCL INJ (*CRX) 1 MG/ML SYR IV PUSH ×2 (06:10→10:05)
[2024-03-09] MEDS: LACTATED RINGERS 1,000 ML 100 ML IV CONT (06:12)
[2024-03-09 06:22] LABS: Basophils Absolute Auto 0.1 K/mm3 (0.0-0.1); Basophils Percent Auto 0.5 % (0.2-1.2); Eosinophils Absolute Auto 0.1 K/mm3 (0-0.3); Eosinophils Percent Auto 1.2 % (0-4.4); Hematocrit 40.4 % (37.0-47.0); Hemoglobin 13.6 g/dL (12.0-15.0); Immature Granulocyte Absolute 0.05 K/mm3 (0.00-0.031); Immature Granulocyte Percent A 0.5 % (0-0.5); Lymphocytes Absolute Auto 3.43 K/mm3 (0.9-3.2); Lymphocytes Percent Auto 33.7 % (18.3-44.2); Mean Corpuscular HGB Conc 33.7 g/dl (32-36); Mean Corpuscular Hemoglobin 31.3 pg (26-34); Mean Corpuscular Volume 93.1 fl (80-100); Mean Platelet Volume 9.6 fl (7.4-10.4); Monocytes Absolute Auto 0.6 K/mm3 (0.1-0.6); Monocytes Percent Auto 5.4 % (2.6-8.5); Neutrophils Percent Auto 58.7 % (45.5-73.1); Platelet Count Result 219 k/mm3 (150-375); Red Blood Count 4.34 M/mm3 (4.2-5.4); Red Cell Distribution Width 12.9 % (11.5-14.5); White Blood Count 10.2 K/mm3 (4.5-10.0)
[2024-03-09 06:40] LABS: Alanine Aminotransferase 37 U/L (6-35); Albumin Level 3.5 g/dL (3.5-5.1); Alkaline Phosphatase 47 U/L (38-126); Anion Gap 2 mmol/L (4-12); Aspartate Amino Transferase 30 U/L (14-36); Bilirubin,Total 0.6 mg/dL (0.2-1.3); Blood Urea Nitrogen 5 mg/dL (7-17); Calcium 8.8 mg/dL (8.4-10.2); Carbon Dioxide 26 mmol/L (22-30); Chloride 109 mmol/L (98-107); Estimated CRCL calculation 113 ml/min; Estimated Glomerular Filt Rate > 60; Glucose 101 mg/dL (65-110); Potassium 3.9 mmol/L (3.4-5.0); Sodium 137 mmol/L (137-145)
--- NOTE | 2024-03-09 07:12 | P.PNIM_ITS ---
Progress Note: A&P Assessment and Plan (1) Abdominal pain: Qualifiers: Abdominal location: right upper quadrant Qualified Code(s): R10.11 - Right upper quadrant pain Code(s): R10.9 - Unspecified abdominal pain Status: Acute Assessment and Plan: Presents with a 3 day history of abdominal pain that has steadily worsened. Oxycodone and ibuprofen have not helped the pain. She has been unable to eat because of the discomfort. She recently was treated for a kidney stone in the left UVJ in 01/2024. Her stent was removed approximately 1 week ago. * Leukocytosis 18.6 but afebrile. CBC appears possibly hemoconcentrated as H/H is elevated. * Lactic ordered, blood cultures pending * Abdominal pain 06/28 to RUQ and LUQ * Continue home Percocet and PRN Dilaudid * Zofran as needed for nausea * Clear liquid diet okay for now * IV fluids LR at 100 ml per hour * Zosyn continued * urine HCG pending 03/08: * Leukocytosis resolving, WBC 12.9 today. H/H down from 16.8/50.7 to 13.9/42, likely from hemoconcentration. * Lactic normal * BC and urine cultures pending * lipase downtrending 446 today * Still requiring pain medication 03/09: * blood cultures with NGTD * urine culture is growing gram negative bacilli * lipase (2) Common bile duct dilatation: Code(s): K83.8 - Other specified diseases of biliary tract Status: Acute Assessment and Plan: RUQ shows common bile duct dilation with uncertain etiology as well as fatty liver disease * MRCP ordered * GI consulted, rec's appreciated 03/08: * awaiting MRCP to be completed 03/09: * awaiting MRCP read (3) Asthma: Qualifiers: Asthma severity: mild Asthma persistence: persistent Asthma complication type: uncomplicated Qualified Code(s): J45.30 - Mild persistent asthma, uncomplicated Code(s): J45.909 - Unspecified asthma, uncomplicated Status: Acute Assessment and Plan: On daily maintenance inhaler * Resume Advair (4) HLD (hyperlipidemia): Qualifiers: Hyperlipidemia type: unspecified Qualified Code(s): E78.5 - Hyperlipidemia, unspecified Code(s): E78.5 - Hyperlipidemia, unspecified Status: Acute Assessment and Plan: Taking Crestor 10 mg daily * lipid panel ordered for am 03/08: * triglycerides 153, cholesterol 97, ldl 53, hdl 26 (5) HTN (hypertension): Qualifiers: Hypertension type: primary hypertension Qualified Code(s): I10 - Essential (primary) hypertension Code(s): I10 - Essential (primary) hypertension Status: Acute Assessment and Plan: On lisinopril 10 mg daily * SBP 120-130s/ 80-90's * Resume lisinopril 03/08: * BP low today 90/50's * holding lisinopril (6) Leukocytosis: Qualifiers: Leukocytosis type: unspecified Qualified Code(s): D72.829 - Elevated white blood cell count, unspecified Code(s): D72.829 - Elevated white blood cell count, unspecified Status: Acute Assessment and Plan: UTI vs abdominal infection vs inflammation vs hemoconcentration * leukocytosis seen on labs from 01/2024. WBC 15-17 at that admission. * WBC 18.6 today without fever * Patient is a smoker so this could be contributing as well * UA was indicating UTI however it was a poor sample with many squamous cells present. Patient is also on her menses. * Urine culture was sent * Blood cultures sent * RUQ ultrasound is not concerning for acute cholecystitis but r
--- NOTE | 2024-03-09 07:12 | PM.IMPN ---
Progress Note: A&P Assessment and Plan (1) Abdominal pain: Qualifiers: Abdominal location: right upper quadrant Qualified Code(s): R10.11 - Right upper quadrant pain Code(s): R10.9 - Unspecified abdominal pain Status: Acute Assessment and Plan: Presents with a 3 day history of abdominal pain that has steadily worsened. Oxycodone and ibuprofen have not helped the pain. She has been unable to eat because of the discomfort. She recently was treated for a kidney stone in the left UVJ in 01/2024. Her stent was removed approximately 1 week ago. Leukocytosis 18.6 but afebrile. CBC appears possibly hemoconcentrated as H/H is elevated. Lactic ordered, blood cultures pending Abdominal pain 06/28 to RUQ and LUQ Continue home Percocet and PRN Dilaudid Zofran as needed for nausea Clear liquid diet okay for now IV fluids LR at 100 ml per hour Zosyn continued urine HCG pending 03/08: Leukocytosis resolving, WBC 12.9 today. H/H down from 16.8/50.7 to 13.9/42, likely from hemoconcentration. Lactic normal BC and urine cultures pending lipase downtrending 446 today Still requiring pain medication 03/09: blood cultures with NGTD urine culture is growing gram negative bacilli lipase (2) Common bile duct dilatation: Code(s): K83.8 - Other specified diseases of biliary tract Status: Acute Assessment and Plan: RUQ shows common bile duct dilation with uncertain etiology as well as fatty liver disease MRCP ordered GI consulted, rec's appreciated 03/08: awaiting MRCP to be completed 03/09: awaiting MRCP read (3) Asthma: Qualifiers: Asthma severity: mild Asthma persistence: persistent Asthma complication type: uncomplicated Qualified Code(s): J45.30 - Mild persistent asthma, uncomplicated Code(s): J45.909 - Unspecified asthma, uncomplicated Status: Acute Assessment and Plan: On daily maintenance inhaler Resume Advair (4) HLD (hyperlipidemia): Qualifiers: Hyperlipidemia type: unspecified Qualified Code(s): E78.5 - Hyperlipidemia, unspecified Code(s): E78.5 - Hyperlipidemia, unspecified Status: Acute Assessment and Plan: Taking Crestor 10 mg daily lipid panel ordered for am 03/08: triglycerides 153, cholesterol 97, ldl 53, hdl 26 (5) HTN (hypertension): Qualifiers: Hypertension type: primary hypertension Qualified Code(s): I10 - Essential (primary) hypertension Code(s): I10 - Essential (primary) hypertension Status: Acute Assessment and Plan: On lisinopril 10 mg daily SBP 120-130s/ 80-90's Resume lisinopril 03/08: BP low today 90/50's holding lisinopril (6) Leukocytosis: Qualifiers: Leukocytosis type: unspecified Qualified Code(s): D72.829 - Elevated white blood cell count, unspecified Code(s): D72.829 - Elevated white blood cell count, unspecified Status: Acute Assessment and Plan: UTI vs abdominal infection vs inflammation vs hemoconcentration leukocytosis seen on labs from 01/2024. WBC 15-17 at that admission. WBC 18.6 today without fever Patient is a smoker so this could be contributing as well UA was indicating UTI however it was a poor sample with many squamous cells present. Patient is also on her menses. Urine culture was sent Blood cultures sent RUQ ultrasound is not concerning for acute cholecystitis but rather common bile duct dilatation. Plan Await MRCP results IVF and IV pain meds Clear liquid diet---can possibly advance this evening if she is going okay and testing is benign Subjective Date/time seen: 03/09/24 07:12 Interval history: This is a 43-year-old female with a past medical history of chronic pain secondary to sciatica and lower back pain (follows with pain management), irritable bowel syndrome, polycystic ovarian syndrome, hypertension, h
[2024-03-09 07:46] LABS: Lipase 58 U/L (23-300)
[2024-03-09] MEDS: PANTOPRAZOLE SODIUM IV 40 MG VIAL IV PUSH (10:04)
--- NOTE | 2024-03-09 11:06 | PM.DS ---
DS: Admitting Diagnosis Discharge Date 03/09/24 Admitting Diagnosis abdominal pain DS: Discharge Diagnosis Discharge Diagnosis (1) Abdominal pain: Qualifiers: Abdominal location: right upper quadrant Qualified Code(s): R10.11 - Right upper quadrant pain Code(s): R10.9 - Unspecified abdominal pain Status: Acute (2) Common bile duct dilatation: Code(s): K83.8 - Other specified diseases of biliary tract Status: Acute (3) Asthma: Qualifiers: Asthma severity: mild Asthma persistence: persistent Asthma complication type: uncomplicated Qualified Code(s): J45.30 - Mild persistent asthma, uncomplicated Code(s): J45.909 - Unspecified asthma, uncomplicated Status: Acute (4) HLD (hyperlipidemia): Qualifiers: Hyperlipidemia type: unspecified Qualified Code(s): E78.5 - Hyperlipidemia, unspecified Code(s): E78.5 - Hyperlipidemia, unspecified Status: Acute (5) HTN (hypertension): Qualifiers: Hypertension type: primary hypertension Qualified Code(s): I10 - Essential (primary) hypertension Code(s): I10 - Essential (primary) hypertension Status: Acute (6) Leukocytosis: Qualifiers: Leukocytosis type: unspecified Qualified Code(s): D72.829 - Elevated white blood cell count, unspecified Code(s): D72.829 - Elevated white blood cell count, unspecified Status: Acute Plan (1) Abdominal pain: ?Qualifiers: ?Abdominal location:?right upper quadrant? Qualified Code(s):?R10.11 - Right upper quadrant pain ?Code(s): R10.9 - Unspecified abdominal pain ?Status:?Acute ?Assessment and Plan: Presents with a 3 day history of abdominal pain that has steadily worsened. Oxycodone and ibuprofen have not helped the pain. She has been unable to eat because of the discomfort. She recently was treated for a kidney stone in the left UVJ in 01/2024. Her stent was removed approximately 1 week ago. Leukocytosis 18.6 but afebrile. CBC appears possibly hemoconcentrated as H/H is elevated. Lactic ordered, blood cultures pending Abdominal pain / to RUQ and LUQ Continue home Percocet and PRN Dilaudid Zofran as needed for nausea Clear liquid diet okay for now IV fluids LR at 100 ml per hour Zosyn continued urine HCG pending 03/08: Leukocytosis resolving, WBC 12.9 today. H/H down from 16.8/50.7 to 13.9/42, likely from hemoconcentration. Lactic normal BC and urine cultures pending lipase downtrending 446 today Still requiring pain medication (2) Common bile duct dilatation: ?Code(s): K83.8 - Other specified diseases of biliary tract ?Status:?Acute ?Assessment and Plan: RUQ shows common bile duct dilation with uncertain etiology as well as fatty liver disease MRCP ordered GI consulted, rec's appreciated 03/08: awaiting MRCP to be completed (3) Asthma: ?Qualifiers: ?Asthma complication type:?uncomplicated??Asthma persistence:?persistent??Asthma severity:?mild? Qualified Code(s):?J45.30 - Mild persistent asthma, uncomplicated ?Code(s): J45.909 - Unspecified asthma, uncomplicated ?Status:?Acute ?Assessment and Plan: On daily maintenance inhaler Resume Advair(4) HLD (hyperlipidemia): ?Qualifiers: ?Hyperlipidemia type:?unspecified? Qualified Code(s):?E78.5 - Hyperlipidemia, unspecified ?Code(s): E78.5 - Hyperlipidemia, unspecified ?Status:?Acute ?Assessment and Plan: Taking Crestor 10 mg daily lipid panel ordered for am 03/08: triglycerides 153, cholesterol 97, ldl 53, hdl 26(5) HTN (hypertension): ?Qualifiers: ?Hypertension type:?primary hypertension? Qualified Code(s):?I10 - Essential (primary) hypertension ?Code(s): I10 - Essential (primary) hypertension ?Status:?Acute ?Assessment and Plan: On lisinopril 10 mg daily SBP 120-130s/ 80-90's Resume lisinopril 03/08: BP low today 90/50's
--- NOTE | 2024-03-09 12:40 | WPDGIPROGNO ---
Progress Note: A&P Assessment and Plan (1) Abdominal pain: Qualifiers: Abdominal location: right upper quadrant Qualified Code(s): R10.11 - Right upper quadrant pain Code(s): R10.9 - Unspecified abdominal pain Status: Acute Assessment and Plan: resolved, tolerating diet ? mild pancreatitis, normal lipase now (2) Common bile duct dilatation: Code(s): K83.8 - Other specified diseases of biliary tract Status: Acute Assessment and Plan: mrcp reviewed, no bile duct stone, normal GB but mildly distended follow-up office, if recurrent pain then may refer to surgery- we discussed about it (3) Irritable bowel syndrome with diarrhea: Code(s): K58.0 - Irritable bowel syndrome with diarrhea Status: Acute Assessment and Plan: never had colonoscopy, we can plan to do one as outpatient (4) Pancreatitis: Qualifiers: Acute pancreatitis complication: unspecified Chronicity: acute Pancreatitis type: biliary Qualified Code(s): K85.10 - Biliary acute pancreatitis without necrosis or infection Code(s): K85.90 - Acute pancreatitis without necrosis or infection, unspecified Status: Acute Assessment and Plan: no alcohol (5) UTI (urinary tract infection): Code(s): N39.0 - Urinary tract infection, site not specified Status: Acute Assessment and Plan: on abx Subjective Date/time seen: 03/09/24 12:40 Interval history: feeling much better, pain is gone and she is feeling like going home Review of Systems Review of Systems: All systems reviewed & are unremarkable except as noted in HPI and below Exam Const: General: comfortable and no acute distress HENMT: Face/Nose/Sinus: Normal nares present Eyes: General: appearance normal, both eyes and all related structures Neck: Neck: supple Resp: Auscultation: clear to auscultation bilaterally Cardio: Rate: regular rate Rhythm: regular rhythm GI: Inspection: non-distended GI Palp: Yes Soft to palpation and No Tenderness to palpation present (GI) Auscultation: normal bowel sounds Skin: General skin exam: normal color Neuro: Speech: normal speech Motor exam (neuro): 5/5 motor strength present throughout Extrem: General: normal to inspection Psych: Mental Status: mental status grossly normal Objective Data Vital Signs Vital Signs: Vital Signs - 24 hr 03/08/24 14:00 03/08/24 21:14 03/08/24 20:00 Temperature 98.2 F 96.4 F L Pulse Rate 68 55 L Respiratory Rate 18 14 Blood Pressure 112/76 98/58 L Pulse Oximetry 100 99 Oxygen Delivery Room Air 03/09/24 06:00 03/09/24 08:40 Temperature 97.1 F L Pulse Rate 81 Respiratory Rate 16 Blood Pressure 127/64 Pulse Oximetry 98 Oxygen Delivery Room Air Intake/Output Intake/Output: Intake & Output 03/06/24 03/07/24 03/08/24 03/09/24 23:59 23:59 23:59 23:59 Intake Total 2840 3932 1530 Output Total 1450 1000 Balance 2840 2482 530 Meds/Results Medications: Active Medications Generic Name Dose Route Start Last Admin Trade Name Freq PRN Reason Stop Dose Admin Acetaminophen 650 mg 03/07/24 15:30 Acetaminophen 325 Mg Tablet PO Q4H PRN Mild Pain (1-3) or Fever Enoxaparin Sodium 40 mg 03/08/24 09:00 03/09/24 10:05 Enoxaparin 40 Mg/0.4 Ml Syringe SUB-Q Not Given DAILY [facility] Piperacillin/Tazobactam/Dextrose 3.375 gm in 50 mls @ 100 mls/hr 03/07/24 18:00 03/09/24 06:11 Zosyn 3.375 Gm/Ns 50 Ml IVPB 100 mls/hr Q6H [facility] Administration Ondansetron HCl 4 mg 03/07/24 14:22 Ondansetron Inj 4 Mg/2 Ml Vial IV PUSH Q4H PRN Nausea Oxycodone/Acetaminophen 1 tab 03/07/24 15:30 03/09/24 11:36 Oxycodone/Acetaminophen (*Crx) 10-325 Mg Tablet PO 1 tab Q4H PRN Administration Pain Rated 4-6 Pantoprazole Sodium 40 mg 03/08/24 09:00 03/09/24 10:04 Pantoprazole Sodium Iv 40 Mg Vial IV PUSH 40 mg QAM [facility] Administratio
== END 2024-03-09 12:10 | disposition home or self-care (01) | DRG 440 ==
LOC: ANHED 14:22 → ANH3MEDSUR 15:43
PROVIDERS: Admitting Provider Internal Medicine; Emergency Provider Physician Assistant; Visit Provider Nurse Practitioner Acute Care
DX: K85.90 Acute pancreatitis without necrosis or infection, unspecified (principal); J45.909 Unspecified asthma, uncomplicated; K83.8 Other specified diseases of biliary tract; M54.30 Sciatica, unspecified side; M51.26 Other intervertebral disc displacement, lumbar region; G89.29 Other chronic pain; K58.0 Irritable bowel syndrome with diarrhea; E28.2 Polycystic ovarian syndrome; F17.210 Nicotine dependence, cigarettes, uncomplicated; N20.0 Calculus of kidney; Z87.442 Personal history of urinary calculi; K76.0 Fatty (change of) liver, not elsewhere classified; E78.5 Hyperlipidemia, unspecified; I10 Essential (primary) hypertension
CPT/HCPCS: 36415; 74176; 74183; 76376; 76705; 80053; 80061; 81001; 81025; 83036; 83605; 83690; 83735; 85025; 85610; 85730; 86140; 87040; 87077; 87086; 87088; 87186; 96361; 96365; 96372; 96375; 96376; 99285; A9270; A9577; C9113; G0378; J1170; J1650; J2270; J2405; J2543; J7030; J7050; J7120

== ENCOUNTER 2024-03-29 13:56 | Inpatient (IN) | payer BC, SELFPAY ==
[2024-03-29] VITALS (42 sets, daily range): BP systolic 116–157; BP diastolic 66–108; PULSE 79–99; RESP 10–29; TEMP 37.2; O2SAT 93–100
--- NOTE | ~2024-03-29 | XR_ITS ---
EXAMINATION: XR cholangiogram surg 1st inj DATE: 04/02/2024 19:02 INDICATION: Right upper quadrant abdominal pain. TECHNIQUE: 133 fluoroscopic images of the right upper quadrant were obtained during intraoperative ch olangiography performed by the surgeon. I was not present in the operating room. Fluoroscopy exposure time was 44 seconds. COMPARISON: CT abdomen and pelvis 03/29/2024 FINDINGS: There is a catheter in the cystic duct. Contrast passes through the common duct to the duod enum. The common duct is dilated. No choledocholithiasis. IMPRESSION: 1. No choledocholithiasis. Reviewed, dictated and finalized at location E. IMPRESSION: 1. No choledocholithiasis.
--- NOTE | ~2024-03-29 | CT_ITS ---
EXAMINATION: CT abdomen pelvis w con DATE: 03/29/2024 16:38 INDICATION: rt abd pain TECHNIQUE: Computed tomography (CT) of the abdomen and pelvis was performed with 100 mL Omnipaque-350 intravenous contrast. Automated exposure control and iterative reconstruction technique were employe d. The dose-length product was 515.80 mGy-cm. COMPARISON: 02/06/2024 and 08/20/2015. FINDINGS: Lower thorax: Unremarkable Liver: Subcentimeter right lobe hypodensity, too small to characterize, likely cyst or hemangioma. Biliary/Gallbladder: Mildly dilated gallbladder. No gallstones or inflammatory change. 9 mm common bi le duct. Pancreas: No mass or duct dilation. Spleen: Normal. Adrenals:No mass. Kidneys: No suspicious mass, obstructing stone, or hydronephrosis. 11 mm left lower pole cyst. Nonobs tructing left lower pole calcifications. Left renal scarring. GI tract: Mild distal esophageal and gastric wall edema. Mostly fluid-filled colon. No small or large bowel dilation. Normal appendix. Mesentery/Peritoneum: No ascites, mass, or free air. Retroperitoneum: No mass. Pelvis: Pelvic organs are within normal limits. Soft Tissues: Soft tissues and body wall unremarkable. Bones: No acute osseous finding. IMPRESSION: Mild esophagitis/gastritis. Mild gallbladder hydrops, may be secondary to fasting or obstruction. Dilated common bile duct, no ob structing stone or mass detected. Correlate with biliary labs and consider MRCP and/or biliary scanni ng as clinically indicated. Fluid-filled colon as can be seen with diarrheal illness. Reviewed, dictated and finalized at location K. IMPRESSION: Mild esophagitis/gastritis. Mild gallbladder hydrops, may be secondary to fasting or obstruction. Dilated c ommon bile duct, no obstructing stone or mass detected. Correlate with biliary labs and consider MRCP and/or biliary scanning as clinically indicated. Fluid-filled colon as can be seen with diarrheal illness.
--- NOTE | ~2024-03-29 | XR_ITS ---
EXAMINATION: XR chest 1V portable Exam Date/Time: 03/29/2024 15:10 CDT HISTORY: suicidal Comparison: 04/27/2015. RESULT: Lines, tubes, and devices: ACDF hardware. Lungs and pleura: Clear. Cardiomediastinal silhouette: Stable. Other: No acute osseous or upper abdominal finding. IMPRESSION: No acute cardiopulmonary process. Reviewed, dictated and finalized at location K.
--- NOTE | ~2024-03-29 | NM_ITS ---
EXAMINATION: NM hepatobiliary w pharm DATE: 03/31/2024 14:28 INDICATION: Right upper quadrant abdominal pain COMPARISON: CT dated 03/19/2024 TECHNIQUE: 4.9 mCi Tc-99m mebrofenin (Choletec) was administered intravenously. Scintigraphic images of the abdomen were obtained for one hour. 3 mcg sincalide (Kinevac) was administered by slow intrav enous infusion, and imaging was continued for 69 minutes. Gallbladder ejection fraction was calculate d by the technologist. FINDINGS: There is normal clearance of radiotracer from the blood pool. There is homogeneous tracer uptake by t he liver. Activity progresses to the gallbladder and bowel. The gallbladder ejection fraction (GBEF) is 69% (normal 10-90%, but most patient with gallbladder dysfunction have GBEF < 35% which does over lap with the normal range). IMPRESSION: 1. Normal hepatobiliary scan. Reviewed, dictated and finalized at location B.
--- NOTE | ~2024-03-29 | XR_ITS ---
EXAMINATION: XR UGIAC wo kub DATE: 04/01/2024 12:33 INDICATION: Right upper quadrant abdominal pain. TECHNIQUE: The patient drank thick barium, gas-producing crystals, and thin barium. Fluoroscopy of th e esophagus, stomach, and proximal small bowel was performed. Fluoroscopy exposure time was 0.5 minut es. The total number of images was 326. Total dose-area product was 1.998 Gy-cm^2. COMPARISON: CT abdomen and pelvis 03/29/2024 FINDINGS: There is no mass or stricture of the esophagus. Esophageal motility is normal. There is no hiatal hernia. There was no gastroesophageal reflux with provocative maneuvers. The stomach and proxi mal small bowel show normal folding patterns. There are changes of anterior fusion procedure in cervi demetrius spine. IMPRESSION: 1. Normal upper gastrointestinal series. Reviewed, dictated and finalized at location A.
[2024-03-29 14:07] LABS: Glucose Point of Care 85 mg/dl (65-105)
--- NOTE | 2024-03-29 14:08 | ED.GENADULT ---
HPI - General Adult General Chief complaint: Overdose Stated complaint: INTENTIONAL OD ON METFORMIN HCL Source: patient and EMS Mode of arrival: EMS Limitations: no limitations History of Present Illness HPI narrative: 43 years old white female came to the ED by ambulance from home. Patient lives with her , reporting taking 50 tablets of metformin 500 mg each at 10:30 a.m. this morning which is approximately 4 hours prior to arrival to the emergency room, telling me because she had weak moment, she loves herself and does not like to harm herself. She denies any history of suicidal ideation or attempts in the past. She she denied any history of psych hospitalization. Patient is telling me that she have a lot of medical issues, in pain all the time and tired of having pain without relief. History of PCOS, pancreatitis, kidney stone, IBS, depression and anxiety. She smokes cigarettes and marijuana almost daily, cannot sleep because of insomnia. Complaining of right abdominal pain for weeks been to our hospital many times for the same complaint without significant findings. Currently patient denying any new symptoms except right abdominal pain. She denies any nausea or vomiting or chest pain or shortness of breath or headache. Related Data Home Medications Medication Instructions Recorded Confirmed buspirone 10 mg tablet 10 mg PO BID 02/14/24 03/07/24 dicyclomine 20 mg tablet 20 mg PO TID 02/14/24 03/07/24 eluxadoline 100 mg tablet (Viberzi) 100 mg PO BID 02/14/24 03/07/24 fluticasone 250 mcg-salmeterol 50 1 ea inhalation BID PRN Shortness 02/14/24 03/07/24 mcg/dose blistr powdr for Of Breath inhalation lisinopril 10 mg tablet 10 mg PO DAILY 02/14/24 03/07/24 metformin 500 mg tablet,extended 500 mg PO DAILY 02/14/24 03/07/24 release 24 hr oxycodone-acetaminophen 10 mg-325 1.5 tablet PO Q6-8H PRN Pain 02/14/24 03/07/24 mg tablet rosuvastatin 10 mg tablet 10 mg PO HS 02/14/24 03/07/24 Allergies Allergy/AdvReac Type Severity Reaction Status Date / Time No Known Allergies Allergy Verified 02/14/24 22:00 Review of Systems Review of Systems: All systems reviewed & are unremarkable except as noted in HPI and below PMFSH Past Medical History Medical History Asthma Chronic pain r/t sciatica and L4/L5/L6 protruding HLD (hyperlipidemia) HTN (hypertension) Irritable bowel syndrome with diarrhea Irritable bowel syndrome with diarrhea PCOS (polycystic ovarian syndrome) Surgical History Surgical History History of cervical spinal surgery (03/08/23) anterior cervical discectomy and fusion Family History Family History Father Hypertension Patient's father is in good health Cerebrovascular accident Family history of heart disease in male family member before age 55 Mother Patient's mother is in good health Family history of diabetes mellitus in first degree relative Sibling Family history of diabetes mellitus in first degree relative Social History Social History Social History: Lives at home with her father and , Chinmay Muñoz. Chinmay is her emergency contact ([phone]). Smoking packs per day: 1 Smoking cigarettes per day: 20.0 Years smoked: 20 Smoking pack-years: 20.00 Smoking status: Heavy tobacco smoker Tobacco type: cigarettes Second hand tobacco smoke exposure: No Alcohol intake: never Alcohol use details: rarely drinks, a couple time a month Substance use: current Substance use type: marijuana Last use: 03/06/24 Do You Feel Safe in your Home?: Yes Lack of Transportation: No Lack of Food: Never True Current Housing: I Have Housing Concerned About Future Housing: No Difficulty Paying Gas/Electric Bills: No Difficulty Paying for Meds: No Cur
--- NOTE | 2024-03-29 14:11 | ECG_ITS ---
SEE SCANNED COPY FOR CONFIRMED REPORT MTDD
[2024-03-29] MEDS: SODIUM CHLORIDE 0.9% IV 1,000 ML 999 ML IV CONT ×2 (14:23→19:10)
--- NOTE | 2024-03-29 14:33 | PC.NURSE ---
Spoke with Omari from Poison Control, ticket number is [id number]. State to monitor for metabolic lactic acidosis with BMP, BUN, CREAT, ABG, Lactic, Urine screen, toxicology screen. poison control states that hypoglycemia is not a concern, that they are more concerned for metabolic lactic acidosis which can be corrected with sodium bicarb or possibly dialysis. symptoms to watch for are abdominal pain and cramping, flatulence, lightheadedness, dizziness, patient reportedly took a toxic dose which is > 150 mg/kg or 25 grams. The peak of the medication will occur between 4-8 hours.
[2024-03-29 14:40] LABS: Basophils Absolute Auto 0.1 K/mm3 (0.0-0.1); Basophils Percent Auto 0.3 % (0.2-1.2); Eosinophils Percent Auto 0.1 % (0-4.4); Hematocrit 47.4 % (37.0-47.0); Hemoglobin 16.2 g/dL (12.0-15.0); Immature Granulocyte Percent A 0.6 % (0-0.5); Lymphocytes Absolute Auto 2.93 K/mm3 (0.9-3.2); Lymphocytes Percent Auto 16.6 % (18.3-44.2); Mean Corpuscular HGB Conc 34.2 g/dl (32-36); Mean Corpuscular Volume 90.8 fl (80-100); Mean Platelet Volume 9.4 fl (7.4-10.4); Monocytes Absolute Auto 1.3 K/mm3 (0.1-0.6); Monocytes Percent Auto 7.2 % (2.6-8.5); Neutrophils Absolute Auto 13.3 K/mm3 (1.3-6.7); Neutrophils Percent Auto 75.2 % (45.5-73.1); Platelet Count Result 346 k/mm3 (150-375); Red Blood Count 5.22 M/mm3 (4.2-5.4); Red Cell Distribution Width 13.5 % (11.5-14.5); White Blood Count 17.7 K/mm3 (4.5-10.0)
[2024-03-29 15:00] LABS: Acetaminophen < 10 ug/mL (10-30); Ethanol < 10 mg/dL (<10); Lactic Acid Reflex 2.1 mmol/L (0.7-2.0); Salicylate < 1.0 mg/dL (2-20)
[2024-03-29 15:02] LABS: Alanine Aminotransferase 29 U/L (6-35); Albumin Level 4.5 g/dL (3.5-5.1); Alkaline Phosphatase 71 U/L (38-126); Anion Gap 12 mmol/L (4-12); Aspartate Amino Transferase 30 U/L (14-36); Bilirubin,Total 0.6 mg/dL (0.2-1.3); Blood Urea Nitrogen 5 mg/dL (7-17); Calcium 9.6 mg/dL (8.4-10.2); Carbon Dioxide 18 mmol/L (22-30); Chloride 110 mmol/L (98-107); Estimated Glomerular Filt Rate > 60; Glucose 98 mg/dL (65-110); Magnesium 1.9 mg/dL (1.6-2.3); Phosphorus 3.7 mg/dL (2.5-4.5); Sodium 140 mmol/L (137-145)
[2024-03-29 15:05] LABS: INR 1.1; Prothrombin Time 14.4 Seconds (11.1-14.7)
[2024-03-29 15:06] LABS: Partial Thromboplastin Time 28.7 Seconds (22.3-36.8)
[2024-03-29 15:09] LABS: Alveolar/Arterial O2 Gradient 26.4 mmHg; Base Excess ABG -2.7 mEq/l (+/-2.0); Fractional Inspired Oxygen 21 %; HCO3 ABG 20.3 mEq/l (22.0-26.0); Oxygen Content ABG 20.8 %vol (16.0-22.0); Oxygen Saturation ABG 96.9 % (95.0-100.0); Oxyhemoglobin 93.4 % THb (90.0-100.0); PCO2 ABG 31.1 mmHg (35.0-45.0); PO2 ABG 86.1 mmHg (80.0-100.0); Total Hemoglobin 15.8 g/dL (12.0-18.0); pH ABG 7.433 (7.350-7.450)
[2024-03-29 15:11] LABS: Device ROOM AIR; Site Drawn LEFT RADIAL
--- NOTE | 2024-03-29 15:13 | PC.NURSE ---
Spouse - Chinmay Muñoz called to check on the patient. Spoke with the patient to ask if I could give information, patient replied whatever, i don't even care, do whatever you want
--- NOTE | 2024-03-29 15:32 | PC.NURSE ---
Spouse of patient states that patient filled a prescription for 112 oxy pills last week and they are now all gone.
[2024-03-29 15:50] LABS: Amphetamine Screen Urine Negative (Negative); Appearance Urine Clear (Clear); Bacteria Urine 2+ /hpf; Barbiturate Screen Urine Negative (Negative); Benzodiazepines Screen Urine Negative (Negative); Bilirubin Urine Negative (Negative); Blood Urine Negative (Negative); Cannabinoid Screen Urine Positive (Negative); Cocaine Screen Urine Negative (Negative); Color Urine Dark Yellow (Yellow); Glucose Urine UA Negative (Negative); Ketones Urine Trace mg/dL (Negative); Leukocyte Esterase Ur Trace LEU/UL (Negative); Methadone Screen Urine Negative (Negative); Need Manual Microscopic Reviewed; Nitrate Urine Negative (Negative); Non Pathogenic Casts 0-2; Opiate Screen Urine Negative (Negative); Phencyclidine Screen Urine Negative (Negative); Protein Urine Trace mg/dL (Negative); Specific Grav Ur 1.023 (1.001-1.035); Squamous Epithelial Cell Urine Moderate /hpf (Few); WBC Urine 0-5 /hpf (0-3); pH Urine 5.5 (5.0-9.0)
[2024-03-29 15:51] LABS: Add Urine Microscopic? YES
--- NOTE | 2024-03-29 16:50 | PC.NURSE ---
1620- Sriram with Poison control called, labs and VS reviewed. To return call and assess status after 1900.
[2024-03-29 17:38] LABS: Reflex Lactic Acid Yes or No Add Lactic
[2024-03-29] MEDS: HYDROmorphone HCL INJ (*CRX) 1 MG/ML SYR 0.5 MG IV PUSH ×2 (18:05→22:52)
[2024-03-29] MEDS: ONDANSETRON INJ 4 MG/2 ML VIAL IV PUSH (18:05)
[2024-03-29] MEDS: PIPERACILLN/TAZ 3.375GM/NS50ML 3.375 GM/50 ML BAG IVPB (18:19)
[2024-03-29 18:41] LABS: Lactic Acid 4.2 mmol/L (0.7-2.0)
[2024-03-29 19:17] LABS: Alveolar/Arterial O2 Gradient 19.3 mmHg; Fractional Inspired Oxygen 21 %; HCO3 ABG 17.8 mEq/l (22.0-26.0); Oxygen Saturation ABG 97.5 % (95.0-100.0); Oxyhemoglobin 95.9 % THb (90.0-100.0); PCO2 ABG 28.5 mmHg (35.0-45.0); PO2 ABG 96.3 mmHg (80.0-100.0); PO2 FiO2 Ratio Arterial Blood 4.59 %; pH ABG 7.414 (7.350-7.450)
[2024-03-29 19:18] LABS: Site Drawn LEFT RADIAL
[2024-03-29 19:19] LABS: Modified Allen's Test Pass
[2024-03-29] MEDS: SODIUM BICARBONATE 8.4% 50 MEQ/50 ML SYRINGE IV PUSH (19:49)
[2024-03-29] MEDS: DEXTROSE 50% 25 GM/50 ML SYRINGE IV PUSH ×2 (19:49→20:26)
[2024-03-29] MEDS: INSULIN HUMAN REGULAR (*BKC) 100 UNITS/ML 10 UNITS IV PUSH (19:50)
--- NOTE | 2024-03-29 20:12 | PM.IMHP ---
H&P: HPI History of Present Illness Date/Time: 03/29/24 20:12 Chief Complaint: OD Narrative: This is a 43-year-old with past medical history significant for polycystic ovarian syndrome, obesity, tobacco dependence, chronic abdominal pain, irritable bowel syndrome, hypertension, chronic pain, asthma. patient presents to the emergency room after taking 50 tablets of 500 mg metformin at around 10:00 a.m. presented to the hospital roughly 3 hours later. Patient denies intention hurting herself. Poison Control was consulted. Patient is status post dialysis catheter placement by General surgery. Patient has been admitted for further evaluation management and treatment. EXAMINATION:? XR chest 1V portable Exam Date/Time:? 03/29/2024 15:10 CDT HISTORY: suicidal ? Comparison:? 04/27/2015. RESULT: Lines, tubes, and devices:? ACDF hardware. Lungs and pleura:? Clear. Cardiomediastinal silhouette:? Stable. Other:? No acute osseous or upper abdominal finding. ? IMPRESSION: No acute cardiopulmonary process. EXAMINATION: CT abdomen pelvis w con DATE: 03/29/2024 16:38 INDICATION: rt abd pain TECHNIQUE: Computed tomography (CT) of the abdomen and pelvis was performed with 100 mL Omnipaque-350 intravenous contrast. Automated exposure control and iterative reconstruction technique were employed. The dose-length product was 515.80 mGy-cm. COMPARISON: 02/06/2024 and 08/20/2015. FINDINGS: Lower thorax: Unremarkable Liver: Subcentimeter right lobe hypodensity, too small to characterize, likely cyst or hemangioma.? Biliary/Gallbladder: Mildly dilated gallbladder. No gallstones or inflammatory change. 9 mm common bile duct. Pancreas: No mass or duct dilation. Spleen: Normal. Adrenals:No mass. Kidneys: No suspicious mass, obstructing stone, or hydronephrosis. 11 mm left lower pole cyst. Nonobstructing left lower pole calcifications. Left renal scarring. GI tract: Mild distal esophageal and gastric wall edema. Mostly fluid-filled colon. No small or large bowel dilation. Normal appendix. Mesentery/Peritoneum: No ascites, mass, or free air. Retroperitoneum: No mass. Pelvis: Pelvic organs are within normal limits. Soft Tissues: Soft tissues and body wall unremarkable. Bones:? No acute osseous finding. IMPRESSION: Mild esophagitis/gastritis. Mild gallbladder hydrops, may be secondary to fasting or obstruction. Dilated common bile duct, no obstructing stone or mass detected. Correlate with biliary labs and consider MRCP and/or biliary scanning as clinically indicated. Fluid-filled colon as can be seen with diarrheal illness. Review of Systems Review of Systems: Took 50 tabs 500 mg metformin Constitutional: Constitutional: Denies chills, Denies fatigue, Denies fever(s) and Denies malaise Eyes: Eyes: Denies change in vision ENT: Denies dysphagia and Denies odynophagia Cardiovascular: Cardiovascular: Denies chest pain, Denies radiating jaw, neck or arm pain and Denies palpitations Respiratory: Respiratory: Denies chest congestion and Denies cough Gastrointestinal: Gastrointestinal: Reports abdominal pain, Reports diarrhea, Denies nausea and Denies vomiting Genitourinary: Genitourinary: Denies dysuria Musculoskeletal: Musculoskeletal: Denies myalgias Integumentary/Breasts: Skin/Breast: Denies rash Neurologic: Denies focal weakness and Denies Sensory deficit (Neuro) Psychiatric: Psychiatric: Reports no additional psychiatric complaints and Reports as per HPI Endocrine: Endocrine: Denies cold intolerance, Denies fatigue, Denies flushing, Denies heat intolerance, Denies polyphagia, Denies polydipsia and Denies palpitations Hematologic/Lymphatic: Hematologic/Lymphatic: Reports no additional hematologic/lymphatic complaints and Reports as per HPI Allergic/Immunologic: Allergic/Immunologic: Reports no additional allergic/immunologic complaints and Reports as per HPI PMFSH Past Medical History Medical History (Updat
--- NOTE | 2024-03-29 20:18 | PM.CNNEP ---
Assessment and Plan Assessment and plan (1) Intentional metformin overdose: Code(s): T38.3X2A - Poisoning by insulin and oral hypoglycemic [antidiabetic] drugs, intentional self-harm, initial encounter Status: Acute Assessment and Plan: Lissa has overdosed on metformin. Her lactic acid is on the rise. It was 2.1 at 2:30 p.m. and 4.2 at 6:20 p.m.. The patient has no symptoms. No mental status changes and no GI symptoms. She does have a rising anion gap and a lowering bicarbonate level consistent with her rising lactic acid level. Her pH has remained normal. Her renal function is normal. I called the pharmacy and her metformin is an extended release form. It is made by [facility] within and an NDC of [phone]. I called poison Control. Our initial phone call result in the thought that we may or may not need dialysis overnight but for right now she does not need dialysis therapy. This is because she has no symptoms and her pH is normal. However, we will watch labs every 6hours and if there is any clinical deterioration we can always do a dialysis overnight. The patient does not need any more IV fluids at this point. Will discontinue the fluids. If we give too much then the bicarbonate might drop from dilution. Plan: Stop IV fluids Lactate level and BMP Q 6hours starting at midnight Long discussion with ER doctor Josemanuel, poison Control, and her local pharmacy. (2) Lactic acidosis: Code(s): E87.20 - Acidosis, unspecified Status: Acute Assessment and Plan: Will check lactic acid levels overnight (3) HTN (hypertension): Qualifiers: Hypertension type: primary hypertension Qualified Code(s): I10 - Essential (primary) hypertension Code(s): I10 - Essential (primary) hypertension Status: Acute Assessment and Plan: Blood pressure is doing okay (4) HLD (hyperlipidemia): Qualifiers: Hyperlipidemia type: unspecified Qualified Code(s): E78.5 - Hyperlipidemia, unspecified Code(s): E78.5 - Hyperlipidemia, unspecified Status: Acute (5) Left ureteral stone: Code(s): N20.1 - Calculus of ureter Status: Acute History of Present Illness Reason for Consult Consult date: 03/29/24 Chief Complaint Chief complaint: INTENTIONAL OD ON METFORMIN HCL History of Present Illness Narrative: Lissa is a very pleasant 43-year-old lady who has multiple medical problems including polycystic ovarian syndrome, anxiety, IBS with diarrhea, hyperlipidemia, a kidney stone last month, history of pancreatitis, chronic pain, and hypertension. The patient has many stressors at home. She has been having trouble at work, and also has been having trouble because she lives with her father and her soon to be ex-. She says that she had a ?weak moment ?and with all the stresses involved took 50 tablets of metformin 500mg at around 10:30 a.m. this morning. The patient says that she is not suicidal but had just ?had enough? between being in pain all the time, and the above stressors. The patient does not really have any symptoms right now however was scared so came to the ER. She was evaluated in the emergency room. Her lactic acid level at 1st was 2.1 at 2:30 p.m. and then at 6:00 p.m. it had risen to 4.2. Her bicarbonate level is low at 18 and her baseline is 26. Her baseline anion gap ranges from 2-5 under normal circumstances and the current anion gap is 12. Her creatinine is normal and at its baseline. Review of Systems Constitutional: Constitutional: Reports no additional constitutional complaints Eyes: Eyes: Reports no additional eye complaints ENT: Reports system reviewed and no additional complaints, except as documented Cardiovascular: Cardiovascular: Reports no additional cardiovascular complaints Respiratory: Respiratory: Reports no additional respiratory complaints Gastrointestinal: Gastrointestinal: Reports no additio
[2024-03-29 20:31] LABS: Glucose Point of Care 158 mg/dl (65-105)
--- NOTE | 2024-03-29 21:12 | PC.NURSE ---
Dr. Dos Santos at bedside with EDT inserting emergent dialysis catheter.
--- NOTE | 2024-03-29 22:17 | W.PM.PROC2 ---
Procedure Note - Detailed Date of Procedure 03/29/24 Pre-op Diagnosis Metabolic acidosis from overdose, inadequate venous access Post-op Diagnosis Same Procedure Performed Placement of right femoral dialysis intravenous catheter Surgeon Rashad Dos Santos MD Anesthesia Local Indications Patient has been suffering from some abdominal pain and became very frustrated as pain was continuing. She took an overdose of metformin and came to the emergency room. She has had a progressive metabolic acidosis due to the drug overdose. Nephrology feels she needs to dialyzed tonight and I was asked to emergently place a central venous catheter for dialysis. Description of Procedure Patient was in the emergency room on cart. After discussion and consent signed, she was in a supine position. The right groin was washed with soap and water. It was then prepped with chlorhexidine. Sterile draping and technique were then used. Local anesthesia was infiltrated in the area of the right femoral vein. Unfortunately, it was difficult to cannulate the vein and it took several passes before this was accomplished. Once cannulated, the guidewire passed readily into the iliac and inferior vena cava. The tract was dilated and then a dual lumen Mckinley catheter was then passed over the guidewire and into the right common iliac vein. Both ports flushed well and aspirated blood with ease. The line was sutured to the skin with 3-0 nylon. A sterile dressing was then applied. Patient was awake and had minimal discomfort during the procedure. Estimated Blood Loss -5 Drains No Packing No Pathology None sent Complications No immediate complications Condition Stable Disposition No change [facility] Billing Surgery - Charge Forward: Surgery Billing (Placement right femoral central venous catheter)
--- NOTE | 2024-03-29 22:34 | PM.CNGS ---
Assessment and Plan Assessment and plan (1) Abdominal pain, chronic, right upper quadrant: Code(s): R10.11 - Right upper quadrant pain; G89.29 - Other chronic pain Status: Acute Assessment and Plan: Multiple imaging tests have shown no abnormality of the gallbladder and no gallstones or sludge. However patient does have pain that worsens after eating and is now chronic. She could have chronic acalculous cholecystitis or biliary dyskinesia. Will order HIDA scan with pharmaceutical stimulation once patient recovered adequately from her metformin overdose. Her imaging also has shown a dilated common bile duct but no stones related. On the current CT scan it is felt to be 9 mm. She just had an MRCP on 03/09/2020 for which showed again a dilated bile duct but no gallstones. Another possible reason for her right upper quadrant pain could be biliary papillary stenosis. Dr. Vargas has been consulted and will evaluate patient in this regard. Thank you for asking me to see this patient in consultation. I will follow along with you. (2) Major depression: Qualifiers: Major depression recurrence: unspecified whether recurrent Active/Remission status: remission status unspecified Qualified Code(s): F32.9 - Major depressive disorder, single episode, unspecified Code(s): F32.9 - Major depressive disorder, single episode, unspecified Status: Acute (3) Intentional metformin overdose: Code(s): T38.3X2A - Poisoning by insulin and oral hypoglycemic [antidiabetic] drugs, intentional self-harm, initial encounter Status: Acute Assessment and Plan: Dialysis is planned for tonight. (4) Chronic pain: Qualifiers: Chronic pain type: chronic pain syndrome Qualified Code(s): G89.4 - Chronic pain syndrome Code(s): G89.29 - Other chronic pain Status: Chronic Assessment and Plan: Mostly pain in her lower back but also now right upper quadrant abdomen. (5) PCOS (polycystic ovarian syndrome): Code(s): E28.2 - Polycystic ovarian syndrome Status: Chronic Assessment and Plan: This and ear will bowel syndrome or also sources of chronic pain. History of Present Illness Consult details Consult date: 03/29/24 Reason for consult: abdominal pain Requesting physician: Deb Abernathy MD Narrative: Patient is a 43-year-old woman with chronic back pain who sees a pain management physician. She has had previously an anterior cervical diskectomy and fusion. She continues to have sciatic. She also has chronic pain syndromes with polycystic ovarian syndrome and irritable bowel syndrome. Patient has been in [facility] 3 times in the last 6 weeks. Around the end of January she had flank pain and was found to have a ureteral impacted 11 mm stone. This was able to be removed by Urology. Three weeks later, in February, she came in with abdominal pain more in the right upper quadrant, and was admitted. It was noted on imaging that her common bile duct was dilated but there were no stones in her gallbladder or abnormalities of wall thickness or pericholecystic fluid or inflammation. It was thought should she had a urinary tract infection and was feeling much better after a 3 day admission. She came to the emergency room today, 3 weeks after her last discharge, with right-sided abdominal pain and a suicidal gesture. She took 50 metformin tablets which were 500 mg each. This has resulted in a significant lactic acidosis that will probably need dialysis tonight. Please see my operative note for placement of a right femoral vein central venous catheter for dialysis. She was noted to have exquisite right upper quadrant tenderness. Her liver enzymes were normal. She had a CT scan of the abdomen and pelvis which showed a mildly dye be plated gallbladder without signs of inflammation and a 9 mm dilated common bile duct. She had an MRCP on 03/09/2020 for which showed a dilated com
[2024-03-30] VITALS (17 sets, daily range): BP systolic 109–149; BP diastolic 70–96; PULSE 69–93; RESP 13–23; TEMP 36.6–37.1; O2SAT 97–99
[2024-03-30 00:20] LABS: Lactic Acid Reflex 3.9 mmol/L (0.7-2.0)
[2024-03-30 00:21] LABS: Anion Gap 11 mmol/L (4-12); Blood Urea Nitrogen 5 mg/dL (7-17); Calcium 9.2 mg/dL (8.4-10.2); Carbon Dioxide 18 mmol/L (22-30); Chloride 112 mmol/L (98-107); Estimated CRCL calculation 84 ml/min; Estimated Glomerular Filt Rate > 60; Glucose 106 mg/dL (65-110); Potassium 3.7 mmol/L (3.4-5.0); Sodium 141 mmol/L (137-145)
[2024-03-30 00:42] LABS: Glucose Point of Care 99 mg/dl (65-105)
--- NOTE | 2024-03-30 00:48 | PC.NURSE ---
Dr Robbins called for pain medicine request-pt reports pain at a 9, to make aware of frequent loose stools and 13 partially digested metformin in stool, and to clarify need for fingersticks. Orders received for q1hr fingersticks and if they stay above 90 can change to q4hr, change diet to regular, OK to give 2mg Dilaudid IV now and continue home Percocet.
--- NOTE | 2024-03-30 00:51 | ADMGEN ---
This patient, Lissa Muñoz, was admitted to Intensive Care Unit-4 at 2140. Patient/family oriented to hospital policies and general routines including ID bracelet, bed and alarms, visiting hours, pain management, procedures, bathroom and other care routines, personal items, smoking policy, room service/diet, and visiting hours. Information on how to activate the Rapid Response Team has been discussed. Suicide precautions explained. Patient/Family are encouraged to report perceived risks to care and to ask questions if they do not understand what they are told or what they should do.
[2024-03-30 00:57] LABS: Alveolar/Arterial O2 Gradient 25.4 mmHg; Base Excess ABG -5.4 mEq/l (+/-2.0); Fractional Inspired Oxygen 21 %; HCO3 ABG 17.9 mEq/l (22.0-26.0); Oxygen Content ABG 20.3 %vol (16.0-22.0); Oxyhemoglobin 96.2 % THb (90.0-100.0); PCO2 ABG 29.3 mmHg (35.0-45.0); PO2 ABG 89.2 mmHg (80.0-100.0); PO2 FiO2 Ratio Arterial Blood 4.25 %; Reduced Hemoglobin 2.8 %THb (0-5.0); pH ABG 7.403 (7.350-7.450)
[2024-03-30 00:58] LABS: Device ROOM AIR; Modified Allen's Test Pass; Site Drawn LEFT RADIAL
[2024-03-30] MEDS: HYDROmorphone HCL INJ (*CRX) 1 MG/ML SYR 2 MG IV PUSH (01:12)
--- NOTE | 2024-03-30 01:27 | PC.NURSE ---
03/29/[address] Brock. Wants ABG at midnight in addition to ordered labs. Only need to call with results if there is a significant change or patient condition worsens.
[2024-03-30 01:55] LABS: MRSA (PCR) NOT DETECTED (NOT DETECTE)
[2024-03-30] MEDS: oxyCODONE/ACETAMINOPHEN (*CRX) 10-325 MG TABLET 1.5 TAB PO ×4 (02:17→21:58)
[2024-03-30] MEDS: PIPERACILLN/TAZ 3.375GM/NS50ML 3.375 GM/50 ML BAG IVPB ×4 (02:21→21:03)
[2024-03-30 02:30] LABS: Glucose Point of Care 130 mg/dl (65-105)
[2024-03-30 03:38] LABS: Glucose Point of Care 105 mg/dl (65-105)
[2024-03-30 04:25] LABS: Glucose Point of Care 133 mg/dl (65-105)
--- NOTE | 2024-03-30 04:39 | PC.NURSE ---
Dr Robbins called due to patient reporting pain level of 8 with no pain meds available until 816. One time order for 50mcg fentanyl IVP received .
[2024-03-30] MEDS: fentaNYL CITRATE INJ (*CRX) 100 MCG/2 ML VIAL 50 MCG IV PUSH (04:46)
[2024-03-30 06:27] LABS: Lactic Acid Reflex 2.7 mmol/L (0.7-2.0)
[2024-03-30 06:27] LABS: Anion Gap 10 mmol/L (4-12); Blood Urea Nitrogen 7 mg/dL (7-17); Carbon Dioxide 19 mmol/L (22-30); Chloride 110 mmol/L (98-107); Estimated CRCL calculation 83 ml/min; Estimated Glomerular Filt Rate > 60; Glucose 104 mg/dL (65-110); Potassium 4.1 mmol/L (3.4-5.0); Sodium 139 mmol/L (137-145)
[2024-03-30 08:21] LABS: Glucose Point of Care 113 mg/dl (65-105)
[2024-03-30 09:13] LABS: Reflex Lactic Acid Yes or No Add Lactic
[2024-03-30] MEDS: HYDROmorphone HCL INJ (*CRX) 1 MG/ML SYR 0.5 MG IV PUSH ×4 (09:40→21:06)
[2024-03-30] MEDS: SODIUM BICARBONATE 8.4% 150 MEQ in WATER, STERILE FOR INJECTION 950 ML 100 MEQ IV CONT ×2 (09:40→20:41)
--- NOTE | 2024-03-30 10:05 | WPDCNINT ---
Assessment and Plan Assessment and plan (1) Intentional metformin overdose: Code(s): T38.3X2A - Poisoning by insulin and oral hypoglycemic [antidiabetic] drugs, intentional self-harm, initial encounter Status: Acute Assessment and Plan: Patient took 50 pills of 500 mg extended-release metformin at 10:30 a.m. 03/29 Nephrology was consulted in the ER and poison control was consulted Her lactic acid level 2.1-> 4.2 --> 2.7 A temporary dialysis catheter was placed by general surgery in the ER in anticipation of hemodialysis but Nephrology at this time has elected to continue with conservative management Continue serial lactic acid monitoring IV fluids with bicarb Will defer decision for hemodialysis per Nephrology Continue suicide precautions Will leave dialysis catheter in for another 24 hours to make sure patient does not need dialysis (2) Lactic acidosis: Code(s): E87.20 - Acidosis, unspecified Status: Acute (3) Tobacco dependence: Code(s): F17.200 - Nicotine dependence, unspecified, uncomplicated Status: Acute Assessment and Plan: Patient was counseled and encouraged to quit smoking (4) Abdominal pain: Qualifiers: Abdominal location: right upper quadrant Qualified Code(s): R10.11 - Right upper quadrant pain Code(s): R10.9 - Unspecified abdominal pain Status: Acute Assessment and Plan: Patient has had abdominal pain for 3 months in right upper quadrant. Patient admitted at [facility] and was seen by GI. Abdomen pelvis CT IMPRESSION: Mild esophagitis/gastritis. Mild gallbladder hydrops, may be secondary to fasting or obstruction. Dilated common bile duct, no obstructing stone or mass detected. Correlate with biliary labs and consider MRCP and/or biliary scanning as clinically indicated. Fluid-filled colon as can be seen with diarrheal illness. MRC03/09/24 IMPRESSION: 1. Mildly dilated common duct. No choledocholithiasis. 2. Gallbladder distention, which may be secondary to fasting. 3. Diffuse hepatic steatosis Patient seen by general surgery and GI consult pending HIDA scan ordered Pain control Will defer management to GI and General surgery at this (5) HLD (hyperlipidemia): Qualifiers: Hyperlipidemia type: unspecified Qualified Code(s): E78.5 - Hyperlipidemia, unspecified Code(s): E78.5 - Hyperlipidemia, unspecified Status: Acute Assessment and Plan: Resume rosuvastatin (6) Suicide attempt by drug ingestion: Code(s): T50.902A - Poisoning by unspecified drugs, medicaments and biological substances, intentional self-harm, initial encounter Status: Acute Assessment and Plan: Continue precautions Once medical issues of addressed patient will be evaluated by Psychiatry She does have a distant history of depression was treated when she lost her mother 80 years ago (7) Gastritis: Code(s): K29.70 - Gastritis, unspecified, without bleeding Status: Acute Assessment and Plan: CT abdomen pelvis suggest gastritis and esophagitis will start PPI Plan DVT prophylaxis -start Lovenox Stress ulcer prophylaxis -PPI Nutrition -diet ordered Code Status - Full Code Family Independence Case Manager Consult Note Consult date: 03/30/24 Reason for consult: Metformin overdose HPI: Lissa Muñoz is a 43 year old female with past medical history of polycystic ovarian disease, obesity, tobacco abuse, abdominal pain, irritable bowel syndrome, hypertension, asthma presented yesterday to ER after taking 50 tablets of 500 mg extended-release metformin around 10:30 a.m. yesterday. Patient was discharged from [place] last month after treatment for abdominal pain. She states she has multiple stresses at home with chronic pain, issues with his personal life and at work. She got frustrated and took 50 tablets of metformin which are extended release. She states that she thought that metformin is an
--- NOTE | 2024-03-30 10:16 | PM.PNGS ---
Progress Note: A&P Assessment and Plan (1) Abdominal pain, chronic, right upper quadrant: Code(s): R10.11 - Right upper quadrant pain; G89.29 - Other chronic pain Status: Acute Assessment and Plan: Will get HIDA scan tomorrow. Continues to be tender right over her gallbladder. Suspect she will need cholecystectomy for acalculous cholecystitis. (2) Suicide attempt by drug ingestion: Code(s): T50.902A - Poisoning by unspecified drugs, medicaments and biological substances, intentional self-harm, initial encounter Status: Acute Assessment and Plan: Being treated. No dialysis last night. (3) Chronic pain: Qualifiers: Chronic pain type: chronic pain syndrome Qualified Code(s): G89.4 - Chronic pain syndrome Code(s): G89.29 - Other chronic pain Status: Chronic (4) Common bile duct dilatation: Code(s): K83.8 - Other specified diseases of biliary tract Status: Acute Assessment and Plan: Abnormal on imaging but MRCP just a few months ago was negative for common bile duct stones. Dr. Vargas is evaluating. Subjective Subjective Date/Time Seen: 03/30/24 10:16 Patient reports: still having pain (Right upper quadrant) and afebrile Review of Systems Review of Systems: All systems reviewed & are unremarkable except as noted in HPI and below (HPI and those items noted below) Constitutional: Constitutional: Denies chills and Denies fever(s) Cardiovascular: Cardiovascular: Denies chest pain, Denies diaphoresis, Denies dyspnea and Denies paroxysmal nocturnal dyspnea Respiratory: Respiratory: Denies chest congestion, Denies cough and Denies dyspnea Integumentary/Breasts: Skin/Breast: Denies lesions and Denies rash Exam Const: General: cooperative, comfortable, no acute distress, alert and awake Orientation/consciousness: patient oriented x3 GI: Inspection: normal to inspection and non-distended GI Palp: Yes Soft to palpation, Yes Tenderness to palpation present (GI) (Right upper quadrant), Yes Guarding due to palpation present (GI) and No Rebound tenderness present Auscultation: normal bowel sounds Neuro: General: patient oriented x3 and no focal motor deficits Extrem: General: no calf tenderness and no edema Psych: Affect: normal affect Insight: Good insight present (Psych) Judgement: Good judgement present (Psych) Objective Data Vital Signs Vital Signs: Vital Signs - 24 hr 03/29/24 13:54 03/29/24 13:59 03/29/24 14:02 Temperature Pulse Rate Respiratory Rate 13 Blood Pressure Pulse Oximetry Oxygen Delivery Room Air Room Air 03/29/24 14:04 03/29/24 14:06 03/29/24 15:45 Temperature 37.2 C Pulse Rate 88 93 85 Respiratory Rate 20 16 29 H Blood Pressure 142/100 H 142/100 H 120/66 Pulse Oximetry 98 98 97 Oxygen Delivery 03/29/24 16:45 03/29/24 17:00 03/29/24 18:06 Temperature Pulse Rate 83 83 88 Respiratory Rate 23 H 21 H 19 Blood Pressure Pulse Oximetry 99 99 100 Oxygen Delivery 03/29/24 18:13 03/29/24 18:15 03/29/24 18:16 Temperature Pulse Rate 83 94 86 Respiratory Rate 20 18 17 Blood Pressure 146/90 H 140/108 H Pulse Oximetry 99 98 99 Oxygen Delivery 03/29/24 18:30 03/29/24 18:45 03/29/24 19:00 Temperature Pulse Rate 88 96 92 Respiratory Rate 21 H 23 H 14 Blood Pressure Pulse Oximetry Oxygen Delivery 03/29/24 19:15 03/29/24 19:30 03/29/24 19:45 Temperature Pulse Rate 91 99 85 Respiratory Rate 18 22 H 23 H Blood Pressure Pulse Oximetry 98 99 Oxygen Delivery 03/29/24 19:46 03/29/24 20:00 03/29/24 20:01 Temperature Pulse Rate 90 81 86 Respiratory Rate 23 H 22 H 17 Blood Pressure 124/77 136/100 H Pulse Oximetry 100 100 100 Oxygen Delivery 03/29/24 20:15 03/29/24 20:16 03/29/24 20:30 Temperature Pulse Rate 89 89 89 Respiratory Rate 20 22 H 19 Blood Pressure 125/67 Pulse Oximetry 99 99 98 Oxygen Delivery
--- NOTE | 2024-03-30 11:10 | PM.IMPN ---
Progress Note: A&P Assessment and Plan (1) Intentional metformin overdose: Code(s): T38.3X2A - Poisoning by insulin and oral hypoglycemic [antidiabetic] drugs, intentional self-harm, initial encounter Status: Acute Assessment and Plan: Patient took 50 pills of 500 mg extended-release metformin at 10:30 a.m. 03/29 in an intentional suicide attempt. Nephrology was consulted in the ER and poison control was consulted Her lactic acid level 2.1-> 4.2 --> 2.7 A temporary dialysis catheter was placed by general surgery in the ER in anticipation of hemodialysis but Nephrology at this time has elected to continue with conservative management Continue serial lactic acid monitoring IV fluids with bicarb added today Will defer decision for hemodialysis per Nephrology Continue suicide precautions Will leave dialysis catheter in for another 24 hours to make sure patient does not need dialysis (2) Suicide attempt by drug ingestion: Code(s): T50.902A - Poisoning by unspecified drugs, medicaments and biological substances, intentional self-harm, initial encounter Status: Acute Assessment and Plan: Patient here for suicide attempt. She does have a distant history of depression Continue suicide precautions Once medical issues of addressed patient will be evaluated by Crisis (3) Lactic acidosis: Code(s): E87.20 - Acidosis, unspecified Status: Acute Assessment and Plan: As above. Continue serial checks untilstable. (4) Abdominal pain: Qualifiers: Abdominal location: right upper quadrant Qualified Code(s): R10.11 - Right upper quadrant pain Code(s): R10.9 - Unspecified abdominal pain Status: Acute Assessment and Plan: Patient has had abdominal pain for 3 months in right upper quadrant. CT A/P in January 2024 and again February 2024 showing normal liver and GB RUQ US 03/07/24 showing diffuse fatty infiltration of the liver and dilated CBD. No GS MRCP 03/09/24 showing mildly dilated CBD but no choledocholithiasis. GB distention and diffuse hepatic steatosis. CT A/P here showing mild GB hydrops and dilated CBD but no obvious stone or obstruction. LFTs normal. HIDA scan ordered. (5) HLD (hyperlipidemia): Qualifiers: Hyperlipidemia type: unspecified Qualified Code(s): E78.5 - Hyperlipidemia, unspecified Code(s): E78.5 - Hyperlipidemia, unspecified Status: Acute Assessment and Plan: LFTs normal. Continue rosuvastatin (6) Gastritis: Code(s): K29.70 - Gastritis, unspecified, without bleeding Status: Acute Assessment and Plan: CT abdomen pelvis showing mild gastritis and esophagitis Continue PPI (7) Tobacco dependence: Code(s): F17.200 - Nicotine dependence, unspecified, uncomplicated Status: Acute Assessment and Plan: Patient was counseled and encouraged to quit smoking Plan DVT prophylaxis - Lovenox Code Status - Full Code Subjective Date/time seen: 03/30/24 11:10 Interval history: 43yo female with PCOS, tobacco abuse and chronic abdominal pain here for an intentional metformin overdose. Patient with pain in the RUQ for the past 3 months. She has IBS and has had abdominal imaging in the past but the RUQ pain is new and she has never had before. She admits to taking excessive amounts of metformin in 'a moment of weakness'. She is under considerable stress at work and at home. She admits to taking the medications to end her life but denies suicidal feelings now. She had not been feeling suicidal recently and states she overdosed on impulse. Exam Narrative: AF 98.8 134/89 78 14 99% ra Gen - NARD Chest - CTA bilaterally, nml RR CV - RRR S1/S2 Abd - Soft, obese, RUQ tenderness without guarding. - Rt femoral dialysis catheter in place. Turcios secured draining clear yellow urine Ext - No pedal edema Neuro - Alert and oriented. Nonfocal exam. Psych - Nml
[2024-03-30 11:39] LABS: Lactic Acid 2.7 mmol/L (0.7-2.0)
[2024-03-30 11:40] LABS: Anion Gap 9 mmol/L (4-12); Blood Urea Nitrogen 7 mg/dL (7-17); Calcium 9.1 mg/dL (8.4-10.2); Carbon Dioxide 21 mmol/L (22-30); Chloride 106 mmol/L (98-107); Estimated CRCL calculation 83 ml/min; Estimated Glomerular Filt Rate > 60; Glucose 101 mg/dL (65-110); Potassium 4.3 mmol/L (3.4-5.0); Sodium 136 mmol/L (137-145)
[2024-03-30] MEDS: PANTOPRAZOLE SODIUM IV 40 MG VIAL IV PUSH ×2 (11:40→21:05)
--- NOTE | 2024-03-30 11:56 | PM.PNNEP ---
Progress Note: A&P Assessment and Plan (1) Intentional metformin overdose: Code(s): T38.3X2A - Poisoning by insulin and oral hypoglycemic [antidiabetic] drugs, intentional self-harm, initial encounter Status: Acute Assessment and Plan: Lissa has overdosed on metformin. Her lactic acid is on the rise. It was 2.1 at 2:30 p.m. and 4.2 at 6:20 p.m.. It was the same at midnight with a value of 3.9 and then she had 2 levels today both 2.7. Still asymptomatic. Her renal function is normal. Patient's bicarbonate level has stabilized. Anion gap is still a bit high. She does have some liver issues which may slow the metabolism of the lactate. I talked with Dr. Dubois at length. We will leave the dialysis catheter in and repeat the lactate later today. Consider pulling in out of the lactate level comes down more. Her creatinine is up slightly at 0.7. Will keep an eye on this since she got contrast yesterday. (2) Lactic acidosis: Code(s): E87.20 - Acidosis, unspecified Status: Acute Assessment and Plan: Will check lactic acid levels every 6hours (3) HTN (hypertension): Qualifiers: Hypertension type: primary hypertension Qualified Code(s): I10 - Essential (primary) hypertension Code(s): I10 - Essential (primary) hypertension Status: Acute Assessment and Plan: Blood pressure is doing okay (4) HLD (hyperlipidemia): Qualifiers: Hyperlipidemia type: unspecified Qualified Code(s): E78.5 - Hyperlipidemia, unspecified Code(s): E78.5 - Hyperlipidemia, unspecified Status: Acute Assessment and Plan: She gets rosuvastatin (5) Left ureteral stone: Code(s): N20.1 - Calculus of ureter Status: Acute Assessment and Plan: Per as an outpatient Subjective Date/time seen: 03/30/24 11:56 Interval history: Lissa is feeling better today. No chest pain or shortness of breath She has some discomfort in her belly which has been going on for a few months from her gallbladder. Nothing new. Mental status is normal Review of Systems Cardiovascular: Cardiovascular: Reports no additional cardiovascular complaints Respiratory: Respiratory: Reports no additional respiratory complaints Gastrointestinal: Gastrointestinal: Reports no additional gastrointestinal complaints Genitourinary: Genitourinary: Reports no additional female genitourinary complaints Exam Narrative: WDWN in NAD skin no rash head ncat lungs clear cor reg no rub abd BS+ nontender and soft ext no edema. Objective Data Vital Signs Vital Signs: Vital Signs - 24 hr 03/29/24 13:54 03/29/24 13:59 03/29/24 14:02 Temperature Pulse Rate Respiratory Rate 13 Blood Pressure Pulse Oximetry Oxygen Delivery Room Air Room Air 03/29/24 14:04 03/29/24 14:06 03/29/24 15:45 Temperature 98.9 F Pulse Rate 88 93 85 Respiratory Rate 20 16 29 H Blood Pressure 142/100 H 142/100 H 120/66 Pulse Oximetry 98 98 97 Oxygen Delivery 03/29/24 16:45 03/29/24 17:00 03/29/24 18:06 Temperature Pulse Rate 83 83 88 Respiratory Rate 23 H 21 H 19 Blood Pressure Pulse Oximetry 99 99 100 Oxygen Delivery 03/29/24 18:13 03/29/24 18:15 03/29/24 18:16 Temperature Pulse Rate 83 94 86 Respiratory Rate 20 18 17 Blood Pressure 146/90 H 140/108 H Pulse Oximetry 99 98 99 Oxygen Delivery 03/29/24 18:30 03/29/24 18:45 03/29/24 19:00 Temperature Pulse Rate 88 96 92 Respiratory Rate 21 H 23 H 14 Blood Pressure Pulse Oximetry Oxygen Delivery 03/29/24 19:15 03/29/24 19:30 03/29/24 19:45 Temperature Pulse Rate 91 99 85 Respiratory Rate 18 22 H 23 H Blood Pressure Pulse Oximetry 98 99 Oxygen Delivery 03/29/24 19:46 03/29/24 20:00 03/29/24 20:01 Temperature Pulse Rate 90 81 86 Respiratory Rate 23 H 22 H 17 Blood Pressure 124/77 136/100 H Pulse Oximetry 100 100
--- NOTE | 2024-03-30 12:06 | PC.NURSE ---
Spoke with Sriram at poison control. Poison control has signed off on the case at [phone] 03/30/24.
--- NOTE | 2024-03-30 13:40 | WPDGICN ---
Assessment and Plan Assessment and plan (1) Abdominal pain, chronic, right upper quadrant: Code(s): R10.11 - Right upper quadrant pain; G89.29 - Other chronic pain Status: Acute Assessment and Plan: could be chronic acalculus cholecystitis hida scan pending, surgery on board Suspect she will need cholecystectomy for acalculous cholecystitis. (2) Suicide attempt by drug ingestion: Code(s): T50.902A - Poisoning by unspecified drugs, medicaments and biological substances, intentional self-harm, initial encounter Status: Acute Assessment and Plan: icu care, poison control on board (3) Lactic acidosis: Code(s): E87.20 - Acidosis, unspecified Status: Acute Assessment and Plan: from metformin OD improving nephrology on board, renal function still normal (4) Major depression: Qualifiers: Active/Remission status: remission status unspecified Major depression recurrence: unspecified whether recurrent Qualified Code(s): F32.9 - Major depressive disorder, single episode, unspecified Code(s): F32.9 - Major depressive disorder, single episode, unspecified Status: Acute (5) Intentional metformin overdose: Code(s): T38.3X2A - Poisoning by insulin and oral hypoglycemic [antidiabetic] drugs, intentional self-harm, initial encounter Status: Acute GI Consult Note Consult date/time: 03/30/24 13:40 Reason for consult: ruq pain HPI: Lissa Muñoz is a 43 year old female with past medical history of polycystic ovarian disease for which she has a prescription of metformin, obesity, tobacco abuse, depression (currently not taking meds- about 8 years ago prescribed medication when family member diet) and chronic abdominal pain. She came yesterday to ER after decided to take 50 tablets of 500 mg extended-release metformin around 10:30 a.m. yesterday.? She has been under a lot of stress at home with anxiety, also chronic abdominal pain. At end of January she had flank pain and was found to have a ureteral impacted 11 mm stone, treated by Urology.? Three weeks later, in February, she came in with abdominal pain more in the right upper quadrant, I met her during that time, she had common bile duct mildy dilated but there were no stones in her gallbladder or abnormalities of wall thickness or pericholecystic fluid or inflammation.? It was thought should she had a urinary tract infection and was feeling much better after a 3 day admission.?As part of work up she had normal liver enzymes, CT scan of the abdomen and pelvis which showed gallbladder without signs of inflammation and a 9 mm dilated common bile duct.? She had an MRCP on 03/09/2020 for which showed a dilated common bile duct but no choledocholithiasis and a mildly dilated gallbladder.? A right upper quadrant ultrasound on 03/07/2024 showed dilated bile duct and fatty diffuse infiltration of the liver.? ER found to have metabolic acidosis, lactic acidosis, CT abdomen pelvis showed gallbladder hydrops with dilated CBD fluid-filled colon.?Admitted to ICU for close monitoring and suicide precautions. Review of Systems Review of Systems: All systems reviewed & are unremarkable except as noted in HPI and below (HPI and those items noted below) Constitutional: Constitutional: Denies chills and Denies fever(s) Eyes: Eyes: Denies blurry vision ENT: Reports Normal hearing present Cardiovascular: Cardiovascular: Denies chest pain, Denies diaphoresis, Denies dyspnea and Denies paroxysmal nocturnal dyspnea Respiratory: Respiratory: Denies chest congestion, Denies cough and Denies dyspnea Gastrointestinal: Gastrointestinal: Reports abdominal pain Genitourinary: Genitourinary: Denies dysuria Musculoskeletal: Musculoskeletal: Denies neck pain Integumentary/Breasts: Skin/Breast: Denies lesions and Denies rash Neurologic: Denies Abnormal speech present Psychiatric: Psychiatric: Reports anxiety, Reports depression and Re
[2024-03-30 16:07] LABS: Glucose Point of Care 93 mg/dl (65-105)
[2024-03-30 19:30] LABS: Lactic Acid Reflex 2.6 mmol/L (0.7-2.0)
[2024-03-30 19:32] LABS: Anion Gap 9 mmol/L (4-12); Blood Urea Nitrogen 7 mg/dL (7-17); Calcium 9.2 mg/dL (8.4-10.2); Carbon Dioxide 24 mmol/L (22-30); Chloride 104 mmol/L (98-107); Estimated CRCL calculation 113 ml/min; Estimated Glomerular Filt Rate > 60; Glucose 102 mg/dL (65-110); Potassium 3.3 mmol/L (3.4-5.0); Sodium 137 mmol/L (137-145)
[2024-03-30 22:18] LABS: Reflex Lactic Acid Yes or No Add Lactic
[2024-03-30 22:36] LABS: Glucose Point of Care 114 mg/dl (65-105)
[2024-03-30 22:58] LABS: Lactic Acid 2.2 mmol/L (0.7-2.0)
[2024-03-30 22:59] LABS: Anion Gap 4 mmol/L (4-12); Blood Urea Nitrogen 6 mg/dL (7-17); Carbon Dioxide 27 mmol/L (22-30); Chloride 102 mmol/L (98-107); Estimated CRCL calculation 113 ml/min; Estimated Glomerular Filt Rate > 60; Glucose 108 mg/dL (65-110); Potassium 3.1 mmol/L (3.4-5.0); Sodium 133 mmol/L (137-145)
[2024-03-30] MEDS: traZODone HCL 50 MG TABLET PO (23:50)
[2024-03-30 23:53] LABS: Glucose Point of Care 141 mg/dl (65-105)
[2024-03-31] VITALS (10 sets, daily range): BP systolic 105–161; BP diastolic 64–92; PULSE 59–77; RESP 14–18; TEMP 36.6–37.1; O2SAT 95–98
[2024-03-31] MEDS: HYDROmorphone HCL INJ (*CRX) 1 MG/ML SYR 0.5 MG IV PUSH ×5 (01:15→23:38)
[2024-03-31] MEDS: PIPERACILLN/TAZ 3.375GM/NS50ML 3.375 GM/50 ML BAG IVPB ×4 (01:15→19:50)
[2024-03-31 04:15] LABS: Hematocrit 40.5 % (37.0-47.0); Hemoglobin 13.7 g/dL (12.0-15.0); Mean Corpuscular HGB Conc 33.8 g/dl (32-36); Mean Corpuscular Hemoglobin 31.2 pg (26-34); Mean Corpuscular Volume 92.3 fl (80-100); Mean Platelet Volume 9.4 fl (7.4-10.4); Platelet Count Result 231 k/mm3 (150-375); Red Blood Count 4.39 M/mm3 (4.2-5.4); Red Cell Distribution Width 13.2 % (11.5-14.5); White Blood Count 12.6 K/mm3 (4.5-10.0)
[2024-03-31 04:31] LABS: Lactic Acid Reflex 1.4 mmol/L (0.7-2.0)
[2024-03-31 04:32] LABS: Alanine Aminotransferase 25 U/L (6-35); Albumin Level 3.5 g/dL (3.5-5.1); Alkaline Phosphatase 49 U/L (38-126); Anion Gap 5 mmol/L (4-12); Aspartate Amino Transferase 23 U/L (14-36); Bilirubin,Total 0.5 mg/dL (0.2-1.3); Blood Urea Nitrogen 5 mg/dL (7-17); Carbon Dioxide 31 mmol/L (22-30); Chloride 102 mmol/L (98-107); Estimated CRCL calculation 97 ml/min; Estimated Glomerular Filt Rate > 60; Glucose 94 mg/dL (65-110); Magnesium 1.5 mg/dL (1.6-2.3); Potassium 3.3 mmol/L (3.4-5.0); Sodium 138 mmol/L (137-145)
[2024-03-31 07:49] LABS: Glucose Point of Care 121 mg/dl (65-105)
[2024-03-31] MEDS: PANTOPRAZOLE SODIUM IV 40 MG VIAL IV PUSH ×2 (08:16→21:06)
[2024-03-31] MEDS: POTASSIUM CHLORIDE 20 MEQ PACKET (FOR LIQUID) 40 MEQ PO (08:17)
[2024-03-31] MEDS: ROSUVASTATIN 10 MG TABLET PO (08:17)
[2024-03-31] MEDS: SODIUM BICARBONATE 8.4% 150 MEQ in WATER, STERILE FOR INJECTION 950 ML 100 MEQ IV CONT (08:22)
[2024-03-31] MEDS: MAGNESIUM SULF 2 GM/WATER 50ML 2 GM/50 ML BAG IVPB (09:07)
--- NOTE | 2024-03-31 09:50 | PM.PNNEP ---
Progress Note: A&P Assessment and Plan (1) Intentional metformin overdose: Code(s): T38.3X2A - Poisoning by insulin and oral hypoglycemic [antidiabetic] drugs, intentional self-harm, initial encounter Status: Acute Assessment and Plan: concern was rising lactic acid 2.1 at 2:30 p.m. on 03/29 4.2 at 6:20 p.m. on 03/29 3.9 at midnight on 03/30 however, since then, lactic has been downtrending with supportive therapy (down to 1.4 by AM labs today) renal function remains normal otherwise, asymptomatic okay to stop bicarb fluids okay to d/c dialysis catheter follow trend of repeat labs continue supportive therapy (2) Lactic acidosis: Code(s): E87.20 - Acidosis, unspecified Status: Acute Assessment and Plan: resolving follow trend was on bicarbonate fluids to compensate (3) HTN (hypertension): Qualifiers: Hypertension type: primary hypertension Qualified Code(s): I10 - Essential (primary) hypertension Code(s): I10 - Essential (primary) hypertension Status: Chronic Assessment and Plan: starting creep up pain maybe playing a role follow trend of hemodynamics ok to resume home lisinopril Not much else to add -- will continue to follow from a distance. Subjective Date/time seen: 03/31/24 09:50 Interval history: Follow-up for lactic acidosis and metformin overdose. Chart reviewed -- assuming care from Dr. Brock; lactic acidosis appears to have resolved with stability in renal function/creatinine; never required IMPORT COORDINATOR/dialysis since admission; no apparent distress noted at the time of my visit; no issues/events overnight or earlier this morning. Exam Narrative: General: WD/WN female in NAD Heart: normal S1 and S2; no rub Lungs: clear to auscultation Abdomen: soft, nontender, nondistended, positive bowel sounds Extremities: no cyanosis or clubbing; no edema Skin: warm and dry Objective Data Vital Signs Vital Signs: Vital Signs Temp Pulse Resp BP Pulse Ox O2 Del Method 03/31/24 08:00 69 03/31/24 08:00 98.7 F 70 16 161/92 H 95 03/31/24 06:00 66 03/31/24 04:00 74 03/31/24 04:00 97 Room Air 03/31/24 04:00 98.1 F 69 14 145/91 H 97 03/31/24 02:00 59 L 03/31/24 00:00 72 03/31/24 00:00 97 Room Air 03/31/24 00:00 98.4 F 77 18 119/66 97 03/30/24 20:00 98 Room Air 03/30/24 20:00 97.8 F 69 23 H 122/70 98 03/30/24 22:00 75 03/30/24 20:00 69 03/30/24 18:00 81 03/30/24 16:00 75 03/30/24 16:00 98.5 F 90 13 147/95 H 98 03/30/24 15:44 97 Room Air 03/30/24 14:00 98.3 F 72 22 H 114/72 97 03/30/24 14:00 72 Intake/Output Intake/Output: Intake & Output 03/28/24 03/29/24 03/30/24 03/31/24 23:59 23:59 23:59 23:59 Intake Total 2050 1650.0 1450 Output Total 1150 2850 Balance 2050 500.0 -1400 Meds/Results Medications: Active Medications Generic Name Dose Route Start Last Admin Trade Name Freq PRN Reason Stop Dose Admin Buspirone HCl 10 mg 03/31/24 11:00 Buspirone Hcl 10 Mg Tablet PO BID MAYO Enoxaparin Sodium 40 mg 03/30/24 09:00 03/31/24 08:17 Enoxaparin 40 Mg/0.4 Ml Syringe SUB-Q Not Given DAILY MAYO Hydromorphone HCl 0.5 mg 03/30/24 08:43 03/31/24 04:16 Hydromorphone Hcl Inj (*Crx) 1 Mg/Ml Syr IV PUSH 0.5 mg Q3H PRN Administration Pain Rated 7-10 Piperacillin/Tazobactam/Dextrose 3.375 gm in 50 mls @ 100 mls/hr 03/30/24 02:00 03/31/24 08:48 Zosyn 3.375 Gm/Ns 50 Ml IVPB Infused Q6H MAYO Infusion Ibuprofen 400 mg/ Sodium 104 mls @ 208 mls/hr 03/31/24 11:29 Chloride IVPB 03/31/24 21:00 Q6H PRN Pain Rated 4-6 Lisinopril 10 mg 03/31/24 11:00 Lisinopril 10 Mg Tablet PO DAILY [facility] Melatonin 5 mg 03/31/24 21:00 Melatonin 5 Mg Tablet PO HS [facility] Oxycodone/Acetaminophen 1.5 tab
--- NOTE | 2024-03-31 09:50 | P.PNNP_ITS ---
Progress Note: A&P Assessment and Plan (1) Intentional metformin overdose: Code(s): T38.3X2A - Poisoning by insulin and oral hypoglycemic [antidiabetic] drugs, intentional self-harm, initial encounter Status: Acute Assessment and Plan: * concern was rising lactic acid * 2.1 at 2:30 p.m. on 03/29 * 4.2 at 6:20 p.m. on 03/29 * 3.9 at midnight on 03/30 * however, since then, lactic has been downtrending with supportive therapy (down to 1.4 by AM labs today) * renal function remains normal * otherwise, asymptomatic * okay to stop bicarb fluids * okay to d/c dialysis catheter * follow trend of repeat labs * continue supportive therapy (2) Lactic acidosis: Code(s): E87.20 - Acidosis, unspecified Status: Acute Assessment and Plan: * resolving * follow trend * was on bicarbonate fluids to compensate (3) HTN (hypertension): Qualifiers: Hypertension type: primary hypertension Qualified Code(s): I10 - Essential (primary) hypertension Code(s): I10 - Essential (primary) hypertension Status: Chronic Assessment and Plan: * starting creep up * pain maybe playing a role * follow trend of hemodynamics * ok to resume home lisinopril Not much else to add -- will continue to follow from a distance. Subjective Date/time seen: 03/31/24 09:50 Interval history: Follow-up for lactic acidosis and metformin overdose. Chart reviewed -- assuming care from Dr. Brock; lactic acidosis appears to have resolved with stability in renal function/creatinine; never required HEALTH CARE CONSULTANT/dialysis since admission; no apparent distress noted at the time of my visit; no issues/events overnight or earlier this morning. Exam Narrative: General: WD/WN female in NAD Heart: normal S1 and S2; no rub Lungs: clear to auscultation Abdomen: soft, nontender, nondistended, positive bowel sounds Extremities: no cyanosis or clubbing; no edema Skin: warm and dry Objective Data Vital Signs Vital Signs: Vital Signs Temp Pulse Resp BP Pulse Ox O2 Del Method 03/31/24 08:00 69 03/31/24 08:00 98.7 F 70 16 161/92 H 95 03/31/24 06:00 66 03/31/24 04:00 74 03/31/24 04:00 97 Room Air 03/31/24 04:00 98.1 F 69 14 145/91 H 97 03/31/24 02:00 59 L 03/31/24 00:00 72 03/31/24 00:00 97 Room Air 03/31/24 00:00 98.4 F 77 18 119/66 97 03/30/24 20:00 98 Room Air 03/30/24 20:00 97.8 F 69 23 H 122/70 98 03/30/24 22:00 75 03/30/24 20:00 69 03/30/24 18:00 81 03/30/24 16:00 75 03/30/24 16:00 98.5 F 90 13 147/95 H 98 03/30/24 15:44 97 Room Air 03/30/24 14:00 98.3 F 72 22 H 114/72 97 03/30/24 14:00 72 Intake/Output Intake/Output: Intake & Output 03/28/24 03/29/24 03/30/24 03/31/24 23:59 23:59 23:59 23:59 Intake Total 2050 1650.0 1450 Output Total 1150 2850 Balance 0 500.0 -1400 Meds/Results Medications: Active Medications Generic Name Dose Route Start Last Admin Trade Name Freq PRN Reason Stop Dose Admin Busp
[2024-03-31 11:31] LABS: Glucose Point of Care 121 mg/dl (65-105)
--- NOTE | 2024-03-31 11:35 | PM.PNGS ---
Progress Note: A&P Assessment and Plan (1) Abdominal pain, chronic, right upper quadrant: Code(s): R10.11 - Right upper quadrant pain; G89.29 - Other chronic pain Status: Acute Assessment and Plan: lead mason tender in the RUQ. Will get a HIDA scan tomorrow. Suspect acalculous cholecystitis and may need a cholecystectomy depending on HIDA results. (2) Suicide attempt by drug ingestion: Code(s): T50.902A - Poisoning by unspecified drugs, medicaments and biological substances, intentional self-harm, initial encounter Status: Acute Assessment and Plan: Being treated with nephrology following. Lactate trending down to normal today. No plans for dialysis and may be removing dialysis catheter per nursing. (3) Chronic pain: Qualifiers: Chronic pain type: chronic pain syndrome Qualified Code(s): G89.4 - Chronic pain syndrome Code(s): G89.29 - Other chronic pain Status: Chronic (4) Common bile duct dilatation: Code(s): K83.8 - Other specified diseases of biliary tract Status: Acute Assessment and Plan: CT showed CBD dilated to 9 mm. MRCP done a few weeks ago after finding a dilated CBD on abdominal ultrasound. MRCP showed no common duct stone. GI following. Plan I have discussed the patient's case and plan of care with Dr. Dos Santos Subjective Subjective Date/Time Seen: 03/31/24 11:35 Patient reports: no new complaints, pain is less (abd pain better but still rating 7/10) and afebrile Interval history: This is a 43 yo with multiple medical problems, who presented to the ER after ingesting 50 tablets of extended-release metformin. Workup in the Er showed mild metabolic acidosis, lactic acidosis, and CT evidence of gallbladder hydrops and dilated CBD. Initially, Nephrology felt she would need hemodialysis and a dialysis catheter was placed, although she has improved with medical management without requiring dialysis. Our service was consulted for the RUQ pain and she is seen in ICU with suicide precautions and a sitter at the bedside. Chart reviewed. She is still complaining of RUQ abdominal that has improved some since admission. She is NPO and without any narcotics this morning for the HIDA scan. No nausea or vomiting. No other specific complaints at this time. Exam Const: General: comfortable and no acute distress Orientation/consciousness: patient oriented x3 GI: Inspection: non-distended GI Palp: Yes Soft to palpation, Yes Tenderness to palpation present (GI) (epigastric and RUQ), No Guarding due to palpation present (GI) and No Rebound tenderness present Auscultation: normal bowel sounds Objective Data Vital Signs Vital Signs: Vital Signs - 24 hr 03/30/24 11:44 03/30/24 12:00 03/30/24 12:00 Temperature 98.4 F Pulse Rate 81 88 93 Respiratory Rate 16 18 Blood Pressure 145/73 H Pulse Oximetry 99 98 Oxygen Delivery Room Air 03/30/24 14:00 03/30/24 14:00 03/30/24 15:44 Temperature 98.3 F Pulse Rate 72 72 Respiratory Rate 22 H Blood Pressure 114/72 Pulse Oximetry 97 97 Oxygen Delivery Room Air 03/30/24 16:00 03/30/24 16:00 03/30/24 18:00 Temperature 98.5 F Pulse Rate 90 75 81 Respiratory Rate 13 Blood Pressure 147/95 H Pulse Oximetry 98 Oxygen Delivery 03/30/24 20:00 03/30/24 22:00 03/30/24 20:00 Temperature 97.8 F Pulse Rate 69 75 69 Respiratory Rate 23 H Blood Pressure 122/70 Pulse Oximetry 98 Oxygen Delivery 03/30/24 20:00 03/31/24 00:00 03/31/24 00:00 Temperature 98.4 F Pulse Rate 77 Respiratory Rate 18 Blood Pressure 119/66 Pulse Oximetry 98 97 97 Oxygen Delivery Room Air Room Air 03/31/24 00:00 03/31/24 02:00 03/31/24 04:00 Temperature 98.1 F Pulse Rate 72 59 L 69 Respiratory Rate 14 Blood Pressure 145/91 H Pulse Oximetry 97 Oxygen Delivery 03/31/24 04:00 03/31/24 04:00 03/31/24 06:00 Temperature Pulse Rate 74 66 Respiratory Rate B
[2024-03-31 12:17] LABS: Anion Gap 7 mmol/L (4-12); Blood Urea Nitrogen 5 mg/dL (7-17); Calcium 9.1 mg/dL (8.4-10.2); Carbon Dioxide 28 mmol/L (22-30); Chloride 102 mmol/L (98-107); Estimated CRCL calculation 97 ml/min; Estimated Glomerular Filt Rate > 60; Glucose 119 mg/dL (65-110); Potassium 3.8 mmol/L (3.4-5.0); Sodium 137 mmol/L (137-145)
--- NOTE | 2024-03-31 12:50 | PC.NURSE ---
Pt to nuclear medicine for HIDA scan via wheelchair
--- NOTE | 2024-03-31 13:06 | WPDGIPROGNO ---
Progress Note: A&P Assessment and Plan (1) Abdominal pain, chronic, right upper quadrant: Code(s): R10.11 - Right upper quadrant pain; G89.29 - Other chronic pain Status: Acute Assessment and Plan: hida scan, surgery on board for possible lap kathleen based on result (2) Intentional metformin overdose: Code(s): T38.3X2A - Poisoning by insulin and oral hypoglycemic [antidiabetic] drugs, intentional self-harm, initial encounter Status: Acute Assessment and Plan: still in icu, lactic acidosis resolved and never required dialysis (3) Lactic acidosis: Code(s): E87.20 - Acidosis, unspecified Status: Acute (4) Major depression: Qualifiers: Active/Remission status: remission status unspecified Major depression recurrence: unspecified whether recurrent Qualified Code(s): F32.9 - Major depressive disorder, single episode, unspecified Code(s): F32.9 - Major depressive disorder, single episode, unspecified Status: Acute Subjective Date/time seen: 03/31/24 13:06 Interval history: similar pain in ruq, no nausea sitter at bedside (suicidal precaution) Review of Systems Review of Systems: All systems reviewed & are unremarkable except as noted in HPI and below Exam Const: General: cooperative, no acute distress, alert and awake Orientation/consciousness: patient oriented x3 HENMT: Face/Nose/Sinus: Normal nares present Eyes: Sclera: sclerae normal Neck: Neck: supple Resp: Effort & Inspection: normal respiratory effort Cardio: Rate: regular rate GI: Inspection: normal to inspection and non-distended GI Palp: Yes Soft to palpation, Yes Tenderness to palpation present (GI) (Right upper quadrant) and No Rebound tenderness present Auscultation: normal bowel sounds Skin: General skin exam: normal color Neuro: General: patient oriented x3 and no focal motor deficits Extrem: General: no edema Psych: Affect: Anxious affect present Objective Data Vital Signs Vital Signs: Vital Signs - 24 hr 03/30/24 14:00 03/30/24 14:00 03/30/24 15:44 Temperature 98.3 F Pulse Rate 72 72 Respiratory Rate 22 H Blood Pressure 114/72 Pulse Oximetry 97 97 Oxygen Delivery Room Air 03/30/24 16:00 03/30/24 16:00 03/30/24 18:00 Temperature 98.5 F Pulse Rate 90 75 81 Respiratory Rate 13 Blood Pressure 147/95 H Pulse Oximetry 98 Oxygen Delivery 03/30/24 20:00 03/30/24 22:00 03/30/24 20:00 Temperature 97.8 F Pulse Rate 69 75 69 Respiratory Rate 23 H Blood Pressure 122/70 Pulse Oximetry 98 Oxygen Delivery 03/30/24 20:00 03/31/24 00:00 03/31/24 00:00 Temperature 98.4 F Pulse Rate 77 Respiratory Rate 18 Blood Pressure 119/66 Pulse Oximetry 98 97 97 Oxygen Delivery Room Air Room Air 03/31/24 00:00 03/31/24 02:00 03/31/24 04:00 Temperature 98.1 F Pulse Rate 72 59 L 69 Respiratory Rate 14 Blood Pressure 145/91 H Pulse Oximetry 97 Oxygen Delivery 03/31/24 04:00 03/31/24 04:00 03/31/24 06:00 Temperature Pulse Rate 74 66 Respiratory Rate Blood Pressure Pulse Oximetry 97 Oxygen Delivery Room Air 03/31/24 08:00 03/31/24 08:00 Temperature 98.7 F Pulse Rate 70 69 Respiratory Rate 16 Blood Pressure 161/92 H Pulse Oximetry 95 Oxygen Delivery Intake/Output Intake/Output: Intake & Output 03/28/24 03/29/24 03/30/24 03/31/24 23:59 23:59 23:59 23:59 Intake Total 2050 1650.0 1450 Output Total 1150 2850 Balance 2050 500.0 -1400 Meds/Results Medications: Active Medications Generic Name Dose Route Start Last Admin Trade Name Freq PRN Reason Stop Dose Admin Buspirone HCl 10 mg 03/31/24 11:00 Buspirone Hcl 10 Mg Tablet PO BID ON LICENSE OF [facility] Enoxaparin Sodium 40 mg 03/30/24 09:00 03/31/24 08:17 Enoxaparin 40 Mg/0.4 Ml Syringe SUB-Q Not Given DAILY MAYO Hydromorphone HCl 0.5 mg 03/30/24 08:43 03/31/24 04:16 Hydromorphone Hcl
--- NOTE | 2024-03-31 14:18 | PM.IMPN ---
Progress Note: A&P Assessment and Plan (1) Intentional metformin overdose: Code(s): T38.3X2A - Poisoning by insulin and oral hypoglycemic [antidiabetic] drugs, intentional self-harm, initial encounter Status: Acute Assessment and Plan: Patient took 50 pills of 500 mg extended-release metformin at 10:30 a.m. 03/29 in an intentional suicide attempt. Nephrology was consulted in the ER and poison control was consulted Her lactic acid level 2.1 -> 4.2 -> 2.7 -> 1.4 A temporary dialysis catheter was placed by general surgery in the ER in anticipation of hemodialysis but Nephrology at this time has elected to continue with conservative management IV fluids with bicarb added and Lactic acid normal Okay to stop IV fluids and remove HD catheter if okay with others. Continue suicide precautions (2) Suicide attempt by drug ingestion: Code(s): T50.902A - Poisoning by unspecified drugs, medicaments and biological substances, intentional self-harm, initial encounter Status: Acute Assessment and Plan: Patient here for suicide attempt. She does have a history of depression Continue suicide precautions Resume Buspar. Once medical issues are addressed, patient will be evaluated by Crisis but feel she needs inpatient evaluationand treatment. (3) Lactic acidosis: Code(s): E87.20 - Acidosis, unspecified Status: Acute Assessment and Plan: As above. (4) Abdominal pain: Qualifiers: Abdominal location: right upper quadrant Qualified Code(s): R10.11 - Right upper quadrant pain Code(s): R10.9 - Unspecified abdominal pain Status: Acute Assessment and Plan: Patient has had abdominal pain for 3 months in right upper quadrant. CT A/P in January 2024 and again February 2024 showing normal liver and GB RUQ US 03/07/24 showing diffuse fatty infiltration of the liver and dilated CBD. No GS MRCP 03/09/24 showing mildly dilated CBD but no choledocholithiasis. GB distention and diffuse hepatic steatosis. CT A/P here showing mild GB hydrops and dilated CBD but no obvious stone or obstruction. LFTs normal. HIDA scan ordered for today. Apprecaite General Surgery input (5) HLD (hyperlipidemia): Qualifiers: Hyperlipidemia type: unspecified Qualified Code(s): E78.5 - Hyperlipidemia, unspecified Code(s): E78.5 - Hyperlipidemia, unspecified Status: Acute Assessment and Plan: LFTs normal. Continue rosuvastatin (6) Gastritis: Code(s): K29.70 - Gastritis, unspecified, without bleeding Status: Acute Assessment and Plan: CT abdomen pelvis showing mild gastritis and esophagitis Continue PPI (7) Tobacco dependence: Code(s): F17.200 - Nicotine dependence, unspecified, uncomplicated Status: Acute Assessment and Plan: Patient was counseled and encouraged to quit smoking Plan DVT prophylaxis - Lovenox Code Status - Full Code Subjective Date/time seen: 03/31/24 14:18 Interval history: 43yo female with PCOS, tobacco abuse and chronic abdominal pain here for an intentional metformin overdose. No issues overnight. Slept poorly. Still with RUQ abdominal pain. No Cp or SOB. Requesting discharge. Exam Narrative: AF 98.7 161/92 69 16 95% ra Gen - NARD Chest - CTA bilaterally, nml RR CV - RRR S1/S2 Abd - Soft, obese, RUQ tenderness - Rt femoral dialysis catheter in place. Turcios secured draining clear yellow urine Ext - No pedal edema Neuro - Alert and oriented. Nonfocal exam. Psych - unhappy mood Skin - Warm and dry Objective Data Vital Signs Vital Signs: Vital Signs - 24 hr 03/30/24 15:44 03/30/24 16:00 03/30/24 16:00 Temperature 98.5 F Pulse Rate 90 75 Respiratory Rate 13 Blood Pressure 147/95 H Pulse Oximetry 97 98 Oxygen Delivery Room Air 03/30/24 18:00 03/30/24 20:00 03/30/24 22:00 Temperature Pulse Rate 81 69 75 Respiratory Rat
--- NOTE | 2024-03-31 14:25 | PC.NURSE ---
Pt returned from nuclear medicine via wheelchair. No issues noted
[2024-03-31] MEDS: oxyCODONE/ACETAMINOPHEN (*CRX) 10-325 MG TABLET 1.5 TAB PO ×2 (14:29→21:08)
[2024-03-31] MEDS: IBUPROFEN IV 400 MG in SODIUM CHLORIDE 0.9% IV 100 ML 208 MG IVPB (15:02)
[2024-03-31] MEDS: busPIRone HCL 10 MG TABLET PO ×2 (15:05→19:50)
[2024-03-31] MEDS: lisinopriL 10 MG TABLET PO (15:05)
[2024-03-31 16:34] LABS: Glucose Point of Care 196 mg/dl (65-105)
[2024-03-31 18:35] LABS: Lactic Acid Reflex 2.2 mmol/L (0.7-2.0)
[2024-03-31 18:36] LABS: Anion Gap 12 mmol/L (4-12); Blood Urea Nitrogen 7 mg/dL (7-17); Carbon Dioxide 24 mmol/L (22-30); Chloride 104 mmol/L (98-107); Estimated CRCL calculation 84 ml/min; Estimated Glomerular Filt Rate > 60; Glucose 101 mg/dL (65-110); Potassium 3.6 mmol/L (3.4-5.0); Sodium 140 mmol/L (137-145)
[2024-03-31 19:57] LABS: Glucose Point of Care 131 mg/dl (65-105)
[2024-03-31] MEDS: MELATONIN 5 MG TABLET PO (21:06)
[2024-03-31 21:19] LABS: Reflex Lactic Acid Yes or No Add Lactic
[2024-03-31 21:51] LABS: Lactic Acid 1.9 mmol/L (0.7-2.0)
[2024-04-01 00:16] LABS: Anion Gap 8 mmol/L (4-12); Blood Urea Nitrogen 6 mg/dL (7-17); Calcium 8.9 mg/dL (8.4-10.2); Carbon Dioxide 26 mmol/L (22-30); Chloride 102 mmol/L (98-107); Estimated CRCL calculation 97 ml/min; Estimated Glomerular Filt Rate > 60; Glucose 127 mg/dL (65-110); Lactic Acid Reflex 1.6 mmol/L (0.7-2.0); Potassium 3.4 mmol/L (3.4-5.0); Sodium 136 mmol/L (137-145)
[2024-04-01] MEDS: PIPERACILLN/TAZ 3.375GM/NS50ML 3.375 GM/50 ML BAG IVPB ×4 (03:25→20:06)
[2024-04-01] MEDS: HYDROmorphone HCL INJ (*CRX) 1 MG/ML SYR 0.5 MG IV PUSH ×4 (03:26→20:13)
[2024-04-01 04:14] LABS: Hematocrit 42.2 % (37.0-47.0); Hemoglobin 14.1 g/dL (12.0-15.0); Mean Corpuscular HGB Conc 33.4 g/dl (32-36); Mean Corpuscular Volume 92.7 fl (80-100); Mean Platelet Volume 9.4 fl (7.4-10.4); Platelet Count Result 261 k/mm3 (150-375); Red Blood Count 4.55 M/mm3 (4.2-5.4); Red Cell Distribution Width 13.2 % (11.5-14.5); White Blood Count 14.1 K/mm3 (4.5-10.0)
[2024-04-01 04:26] LABS: Alanine Aminotransferase 23 U/L (6-35); Albumin Level 3.8 g/dL (3.5-5.1); Alkaline Phosphatase 48 U/L (38-126); Anion Gap 6 mmol/L (4-12); Aspartate Amino Transferase 28 U/L (14-36); Bilirubin,Total 0.7 mg/dL (0.2-1.3); Blood Urea Nitrogen 6 mg/dL (7-17); Carbon Dioxide 26 mmol/L (22-30); Chloride 105 mmol/L (98-107); Estimated CRCL calculation 97 ml/min; Estimated Glomerular Filt Rate > 60; Glucose 116 mg/dL (65-110); Phosphorus 5.3 mg/dL (2.5-4.5); Potassium 3.6 mmol/L (3.4-5.0); Sodium 137 mmol/L (137-145)
[2024-04-01 04:43] VITALS: BP 125/85
[2024-04-01] MEDS: oxyCODONE/ACETAMINOPHEN (*CRX) 10-325 MG TABLET 1.5 TAB PO ×4 (04:45→22:12)
[2024-04-01 08:00] VITALS: BP 132/74; PULSE 76; RESP 16; TEMP 36.6; O2SAT 98
[2024-04-01] MEDS: ROSUVASTATIN 10 MG TABLET PO (08:10)
[2024-04-01] MEDS: busPIRone HCL 10 MG TABLET PO ×2 (08:10→17:34)
[2024-04-01] MEDS: PANTOPRAZOLE SODIUM IV 40 MG VIAL IV PUSH ×2 (08:10→20:07)
[2024-04-01] MEDS: lisinopriL 10 MG TABLET PO (08:10)
[2024-04-01 09:03] VITALS: O2SAT 98
[2024-04-01 10:04] LABS: SARS-CoV-2 RNA PCR Negative (Negative)
--- NOTE | 2024-04-01 13:05 | PM.IMPN ---
Progress Note: A&P Assessment and Plan (1) Intentional metformin overdose: Code(s): T38.3X2A - Poisoning by insulin and oral hypoglycemic [antidiabetic] drugs, intentional self-harm, initial encounter Status: Acute Assessment and Plan: Patient took 50 pills of 500 mg extended-release metformin at 10:30 a.m. 03/29 in an intentional suicide attempt. Nephrology was consulted in the ER and poison control was consulted A temporary dialysis catheter was placed by general surgery in the ER in anticipation of hemodialysis but Nephrology at this time has elected to continue with conservative management SP IV fluids with bicarb added and Lactic acid normal Pts labs are stable after fluid hydration Pt kidney function is stable HD catheter removed pt did not have dialysis (2) Suicide attempt by drug ingestion: Code(s): T50.902A - Poisoning by unspecified drugs, medicaments and biological substances, intentional self-harm, initial encounter Status: Acute Assessment and Plan: Patient here for suicide attempt. She does have a history of depression Continue suicide precautions Resume Buspar. pt is now stable, medically, Crisis team ok to assess inpatient evaluationand treatment today. (3) Lactic acidosis: Code(s): E87.20 - Acidosis, unspecified Status: Acute Assessment and Plan: Resolvedwith fluids (4) Abdominal pain: Qualifiers: Abdominal location: right upper quadrant Qualified Code(s): R10.11 - Right upper quadrant pain Code(s): R10.9 - Unspecified abdominal pain Status: Acute Assessment and Plan: Patient has had abdominal pain for 3 months in right upper quadrant. CT A/P in January 2024 and again February 2024 showing normal liver and GB RUQ US 03/07/24 showing diffuse fatty infiltration of the liver and dilated CBD. No GS MRCP 03/09/24 showing mildly dilated CBD but no choledocholithiasis. GB distention and diffuse hepatic steatosis. CT A/P here showing mild GB hydrops and dilated CBD but no obvious stone or obstruction. LFTs normal. HIDA scan is nl no need for any surgery Appreciate General Surgery input (5) HLD (hyperlipidemia): Qualifiers: Hyperlipidemia type: unspecified Qualified Code(s): E78.5 - Hyperlipidemia, unspecified Code(s): E78.5 - Hyperlipidemia, unspecified Status: Acute Assessment and Plan: LFTs normal. Continue rosuvastatin (6) Gastritis: Code(s): K29.70 - Gastritis, unspecified, without bleeding Status: Acute Assessment and Plan: CT abdomen pelvis showing mild gastritis and esophagitis Continue PPI (7) Tobacco dependence: Code(s): F17.200 - Nicotine dependence, unspecified, uncomplicated Status: Acute Assessment and Plan: Patient was counseled and encouraged to quit smoking Subjective Date/time seen: 04/01/24 13:05 Interval history: 43yo female with PCOS, tobacco abuse and chronic abdominal pain here for an intentional metformin overdose. States she was having a lot of stress at work Pt denies any abdominal pains today ok to see the Crisis team today. Pt is medically stable to see Crisis team. HIDA scan was negative yesterday Today wcc is high likely a reactive problem Pt WCc runs high prior to admission Otherwise labs are good creat is stable Review of Systems Review of Systems: No acute issues Exam Narrative: Gen - Midde aged lady looks depressed poor eye contact Chest - CTA bilaterally, nml RR CV - RRR S1/S2 Abd - Soft, obese, RUQ tenderness - Rt femoral dialysis catheter in place. Turcios secured draining clear yellow urine Ext - No pedal edema Neuro - Alert and oriented. Nonfocal exam. Psych - unhappy mood Skin - Warm and dry Objective Data Vital Signs Vital Signs: Vital Signs - 24 hr 03/31/24 18:23 03/31/24 19:44 03/31/24 21:00 Temperature 37.1 C 36.6 C Pulse Rat
--- NOTE | 2024-04-01 15:08 | WPDGIPROGNO ---
Progress Note: A&P Assessment and Plan (1) Abdominal pain, chronic, right upper quadrant: Code(s): R10.11 - Right upper quadrant pain; G89.29 - Other chronic pain Status: Acute Assessment and Plan: hida scan normal, also normal liver enzymes and UGI series exam is benign today she is eating snacks (2) Intentional metformin overdose: Code(s): T38.3X2A - Poisoning by insulin and oral hypoglycemic [antidiabetic] drugs, intentional self-harm, initial encounter Status: Acute Assessment and Plan: still in icu, lactic acidosis resolved and never required dialysis (3) Lactic acidosis: Code(s): E87.20 - Acidosis, unspecified Status: Acute (4) Major depression: Qualifiers: Active/Remission status: remission status unspecified Major depression recurrence: unspecified whether recurrent Qualified Code(s): F32.9 - Major depressive disorder, single episode, unspecified Code(s): F32.9 - Major depressive disorder, single episode, unspecified Status: Acute Assessment and Plan: by primary, sitter at bedside Subjective Date/time seen: 04/01/24 15:08 Interval history: she is upset because she heard that probably will be transferred to psych facility she had lunch with chips, she has chronic abdominal pain but seems quite comfortable Review of Systems Review of Systems: All systems reviewed & are unremarkable except as noted in HPI and below Exam Const: General: cooperative, no acute distress, alert and awake Orientation/consciousness: patient oriented x3 HENMT: Face/Nose/Sinus: Normal nares present Eyes: Sclera: sclerae normal Neck: Neck: supple Resp: Effort & Inspection: normal respiratory effort Cardio: Rate: regular rate GI: Inspection: normal to inspection and non-distended GI Palp: Yes Soft to palpation, No Tenderness to palpation present (GI), No Guarding due to palpation present (GI) and No Rebound tenderness present Auscultation: normal bowel sounds Skin: General skin exam: normal color Neuro: General: patient oriented x3 and no focal motor deficits Extrem: General: no edema Psych: Affect: Anxious affect present Objective Data Vital Signs Vital Signs: Vital Signs - 24 hr 03/31/24 18:23 03/31/24 19:44 03/31/24 21:00 Temperature 98.8 F 97.8 F Pulse Rate 76 72 Respiratory Rate 17 14 Blood Pressure 105/64 131/82 124/79 Pulse Oximetry 98 98 Oxygen Delivery 03/31/24 20:00 03/31/24 23:35 04/01/24 04:43 Temperature 98.1 F Pulse Rate 72 Respiratory Rate 14 Blood Pressure 113/67 125/85 Pulse Oximetry 98 98 Oxygen Delivery Room Air 04/01/24 09:03 04/01/24 08:00 04/01/24 08:00 Temperature 97.8 F Pulse Rate 76 76 Respiratory Rate 16 16 Blood Pressure 132/74 Pulse Oximetry 98 98 98 Oxygen Delivery Room Air Room Air Intake/Output Intake/Output: Intake & Output 03/29/24 03/30/24 03/31/24 04/01/24 23:59 23:59 23:59 23:59 Intake Total 2050 1650.0 2394 1100 Output Total 1150 3800 800 Balance 2050 500.0 -1406 300 Meds/Results Medications: Active Medications Generic Name Dose Route Start Last Admin Trade Name Freq PRN Reason Stop Dose Admin Buspirone HCl 10 mg 03/31/24 11:00 04/01/24 08:10 Buspirone Hcl 10 Mg Tablet PO 10 mg BID MAYO Administration Enoxaparin Sodium 40 mg 03/30/24 09:00 04/01/24 08:11 Enoxaparin 40 Mg/0.4 Ml Syringe SUB-Q Not Given DAILY MAYO Hydromorphone HCl 0.5 mg 03/30/24 08:43 04/01/24 14:08 Hydromorphone Hcl Inj (*Crx) 1 Mg/Ml Syr IV PUSH 0.5 mg Q3H PRN Administration Pain Rated 7-10 Piperacillin/Tazobactam/Dextrose 3.375 gm in 50 mls @ 100 mls/hr 03/30/24 02:00 04/01/24 14:08 Zosyn 3.375 Gm/Ns 50 Ml IVPB 100 mls/hr Q6H MAYO Administration Lisinopril 10 mg 03/31/24 11:00 04/01/24 08:10 Lisinopril 10 Mg Tablet PO 10 mg DAILY MAYO Administration Melatonin 5 mg 03/31/24 21:00 03/31/24 21:0
--- NOTE | 2024-04-01 15:28 | PM.TDS ---
Transfer Discharge Sum: Prov Provider Date of admission: 03/29/24 22:45 Primary care physician: PHYSICIAN NOT ON STAFF Admitting clinician: Braxton Klein MD Consults: 03/29/24 20:10 Consult to Physician Routine Comment: Consulting Provider: Rashad oDs Santos Reason for consultation: abdominal pain, dialysis catheter placement Has provider been notified: Yes Consult to Physician Routine Comment: Consulting Provider: Oh Brock Reason for consultation: drug overdose, dialysis Has provider been notified: Yes Consult to Physician Routine Comment: Consulting Provider: Pato Irene Reason for consultation: drug overdose, major depression Has provider been notified: Yes DS: Admitting Diagnosis Discharge Date 04/01/2024 Admitting Diagnosis Overdose DS: Discharge Diagnosis Discharge Diagnosis (1) Intentional metformin overdose: Code(s): T38.3X2A - Poisoning by insulin and oral hypoglycemic [antidiabetic] drugs, intentional self-harm, initial encounter Status: Acute Assessment and Plan: Patient took 50 pills of 500 mg extended-release metformin at 10:30 a.m. 03/29 in an intentional suicide attempt. Nephrology was consulted in the ER and poison control was consulted A temporary dialysis catheter was placed by general surgery in the ER in anticipation of hemodialysis but Nephrology at this time has elected to continue with conservative management SP IV fluids with bicarb added and Lactic acid normal Pts labs are stable after fluid hydration Pt kidney function is stable HD catheter removed pt did not have dialysis (2) Suicide attempt by drug ingestion: Code(s): T50.902A - Poisoning by unspecified drugs, medicaments and biological substances, intentional self-harm, initial encounter Status: Acute Assessment and Plan: Patient here for suicide attempt. She does have a history of depression Continue suicide precautions Resume Buspar. pt is now stable, medically, Crisis team ok to assess inpatient evaluationand treatment today. (3) Lactic acidosis: Code(s): E87.20 - Acidosis, unspecified Status: Acute Assessment and Plan: Resolvedwith fluids (4) Abdominal pain: Qualifiers: Abdominal location: right upper quadrant Qualified Code(s): R10.11 - Right upper quadrant pain Code(s): R10.9 - Unspecified abdominal pain Status: Acute Assessment and Plan: Patient has had abdominal pain for 3 months in right upper quadrant. CT A/P in January 2024 and again February 2024 showing normal liver and GB RUQ US 03/07/24 showing diffuse fatty infiltration of the liver and dilated CBD. No GS MRCP 03/09/24 showing mildly dilated CBD but no choledocholithiasis. GB distention and diffuse hepatic steatosis. CT A/P here showing mild GB hydrops and dilated CBD but no obvious stone or obstruction. LFTs normal. HIDA scan is nl no need for any surgery Appreciate General Surgery input (5) HLD (hyperlipidemia): Qualifiers: Hyperlipidemia type: unspecified Qualified Code(s): E78.5 - Hyperlipidemia, unspecified Code(s): E78.5 - Hyperlipidemia, unspecified Status: Acute Assessment and Plan: LFTs normal. Continue rosuvastatin (6) Gastritis: Code(s): K29.70 - Gastritis, unspecified, without bleeding Status: Acute Assessment and Plan: CT abdomen pelvis showing mild gastritis and esophagitis Continue PPI (7) Tobacco dependence: Code(s): F17.200 - Nicotine dependence, unspecified, uncomplicated Status: Acute Assessment and Plan: Patient was counseled and encouraged to quit smoking Transfer Discharge Sum: Med Medications Active and Home Medications: Home Medications buspirone 10 mg tablet 10 mg PO BID 02/14/24 [History Confirmed 03/29/24] dicyclomine 20 mg tablet 20 mg PO TID 02/14/24 [History Confirmed 03/29/24] eluxadolin
[2024-04-01 16:00] VITALS: BP 152/82; PULSE 76; RESP 18; TEMP 36.6; O2SAT 98
[2024-04-01 16:37] LABS: Glucose Point of Care 137 mg/dl (65-105)
[2024-04-01 16:53] LABS: Beta HCG Quantitative < 2.39 mIU/ML
--- NOTE | 2024-04-01 16:57 | PM.PNGS ---
Progress Note: A&P Assessment and Plan (1) Abdominal pain, chronic, right upper quadrant: Code(s): R10.11 - Right upper quadrant pain; G89.29 - Other chronic pain Status: Acute Assessment and Plan: Pain was better earlier today but is now back again and very painful. It started about an hour after eating. Her exam again shows a palpable very tender gallbladder fundus. Her upper GI today was negative. All gallbladder imaging including her hepatobiliary scan has been negative for gallstones or acute gallbladder inflammation. Clinically I feel this is her gallbladder causing the pain. Her history agrees with this as does the her exam. I discussed this with the patient and talked with her on the telephone after talking with the patient. I explained that her gallbladder studies have not shown evidence of cholecystitis but nothing else to explain this pain has shown up either. I feel cholecystectomy is very likely to relieve this pain. There certainly is a chance that cholecystectomy will be done and the pain will continue. At this point, there was really nothing else we can do to know if the gallbladder is the source other than remove it. She understands there is a risk of persistent pain. I will perform an intraoperative cholangiogram at the time of her laparoscopic cholecystectomy to provide another imaging study of her common bile duct. As she has been found to have some common bile duct dilatation on several imaging studies but negative MRCP, persistent pain could be due to biliary papillary stenosis but more likely is due to her gallbladder. I explained the procedure, risks, benefits and alternatives. She is awaiting transfer to psychiatry facility at [facility]. Bed is not currently available. She will not be transferring there until she has had cholecystectomy and has adequately recovered from that procedure. All questions were answered. She understands and agrees to go ahead. (2) Suicide attempt by drug ingestion: Qualifiers: Encounter type: subsequent encounter Qualified Code(s): T50.902D - Poisoning by unspecified drugs, medicaments and biological substances, intentional self-harm, subsequent encounter Code(s): T50.902A - Poisoning by unspecified drugs, medicaments and biological substances, intentional self-harm, initial encounter Status: Acute Assessment and Plan: Metformin ingestion (3) Chronic pain: Qualifiers: Chronic pain type: chronic pain syndrome Qualified Code(s): G89.4 - Chronic pain syndrome Code(s): G89.29 - Other chronic pain Status: Chronic Assessment and Plan: Chronic back pain (4) Tobacco dependence: Code(s): F17.200 - Nicotine dependence, unspecified, uncomplicated Status: Chronic Assessment and Plan: Increases surgical risk. Have advised to stop smoking. Subjective Subjective Date/Time Seen: 04/01/24 16:57 Patient reports: still having pain (Right upper quadrant pain a little better this morning. She ate about an hour ago and it is hurting more again.), tolerating a regular diet (Eating better but eating still provokes right upper quadrant pain) and afebrile Review of Systems Review of Systems: All systems reviewed & are unremarkable except as noted in HPI and below (HPI) Exam Const: General: cooperative, no acute distress, alert, awake, uncomfortable (Holding her right upper quadrant abdomen because of pain) and overweight Orientation/consciousness: patient oriented x3 GI: Inspection: no abdominal wall ecchymosis, non-distended and no visible herniation GI Palp: Yes Soft to palpation, Yes Tenderness to palpation present (GI) (Very tender right upper quadrant, gallbladder fundus palpable and tender), Yes Guarding due to palpation present (GI), No Hernia present, Yes Palpable mass present (Distended gallbladder right upper quadrant) and No Rebound tenderness present Ausc
[2024-04-01 20:10] VITALS: BP 138/76; PULSE 80; RESP 18; TEMP 36.7; O2SAT 99
[2024-04-01 20:32] LABS: Glucose Point of Care 105 mg/dl (65-105)
[2024-04-01] MEDS: MELATONIN 5 MG TABLET PO (22:12)
[2024-04-02] VITALS (16 sets, daily range): BP systolic 124–181; BP diastolic 78–101; PULSE 65–90; RESP 12–26; TEMP 36.3–36.7; O2SAT 95–100
[2024-04-02] MEDS: HYDROmorphone HCL INJ (*CRX) 1 MG/ML SYR 0.5 MG IV PUSH ×6 (01:13→21:12)
[2024-04-02] MEDS: PIPERACILLN/TAZ 3.375GM/NS50ML 3.375 GM/50 ML BAG IVPB ×4 (01:14→19:56)
[2024-04-02 04:07] LABS: Hematocrit 41.3 % (37.0-47.0); Hemoglobin 14.1 g/dL (12.0-15.0); Mean Corpuscular HGB Conc 34.1 g/dl (32-36); Mean Corpuscular Hemoglobin 31.4 pg (26-34); Mean Platelet Volume 9.3 fl (7.4-10.4); Platelet Count Result 242 k/mm3 (150-375); Red Blood Count 4.49 M/mm3 (4.2-5.4); Red Cell Distribution Width 13.4 % (11.5-14.5); White Blood Count 14.9 K/mm3 (4.5-10.0)
[2024-04-02 04:20] LABS: Alanine Aminotransferase 23 U/L (6-35); Albumin Level 3.8 g/dL (3.5-5.1); Alkaline Phosphatase 46 U/L (38-126); Anion Gap 4 mmol/L (4-12); Aspartate Amino Transferase 25 U/L (14-36); Bilirubin,Total 0.6 mg/dL (0.2-1.3); Blood Urea Nitrogen 5 mg/dL (7-17); Calcium 8.7 mg/dL (8.4-10.2); Carbon Dioxide 28 mmol/L (22-30); Chloride 106 mmol/L (98-107); Estimated CRCL calculation 84 ml/min; Estimated Glomerular Filt Rate > 60; Glucose 113 mg/dL (65-110); Phosphorus 5.7 mg/dL (2.5-4.5); Potassium 3.5 mmol/L (3.4-5.0); Sodium 138 mmol/L (137-145)
[2024-04-02] MEDS: oxyCODONE/ACETAMINOPHEN (*CRX) 10-325 MG TABLET 1.5 TAB PO ×2 (06:00→13:31)
[2024-04-02 08:37] LABS: Glucose Point of Care 135 mg/dl (65-105)
[2024-04-02] MEDS: PANTOPRAZOLE SODIUM IV 40 MG VIAL IV PUSH ×2 (08:38→21:12)
[2024-04-02] MEDS: busPIRone HCL 10 MG TABLET PO (08:38)
[2024-04-02] MEDS: lisinopriL 10 MG TABLET PO (08:38)
[2024-04-02] MEDS: ROSUVASTATIN 10 MG TABLET PO (08:38)
[2024-04-02 12:28] LABS: Glucose Point of Care 107 mg/dl (65-105)
--- NOTE | 2024-04-02 14:00 | PC.NURSE ---
pt to surgery via stretcher with Adriane RN
[2024-04-02] MEDS: LACTATED RINGERS 1,000 ML 30 ML IV CONT (14:22)
--- NOTE | 2024-04-02 14:27 | WPDGIPROGNO ---
Progress Note: A&P Assessment and Plan (1) Abdominal pain, chronic, right upper quadrant: Code(s): R10.11 - Right upper quadrant pain; G89.29 - Other chronic pain Status: Acute Assessment and Plan: hida scan normal, also normal liver enzymes and UGI series but recurrent post prandial RUQ pain, final decision is to take her to OR for cholecystectomy will follow as needed (2) Intentional metformin overdose: Code(s): T38.3X2A - Poisoning by insulin and oral hypoglycemic [antidiabetic] drugs, intentional self-harm, initial encounter Status: Acute Assessment and Plan: still in icu, lactic acidosis resolved and never required dialysis sitter at bedside (3) Lactic acidosis: Code(s): E87.20 - Acidosis, unspecified Status: Acute Assessment and Plan: resolved (4) Major depression: Qualifiers: Active/Remission status: remission status unspecified Major depression recurrence: unspecified whether recurrent Qualified Code(s): F32.9 - Major depressive disorder, single episode, unspecified Code(s): F32.9 - Major depressive disorder, single episode, unspecified Status: Acute Assessment and Plan: by primary, sitter at bedside Subjective Date/time seen: 04/02/24 14:27 Interval history: yesterday once again more ruq pain after eating surgery will take her later today for scott wang Review of Systems Review of Systems: All systems reviewed & are unremarkable except as noted in HPI and below Exam Const: General: cooperative, no acute distress, alert and awake Orientation/consciousness: patient oriented x3 HENMT: Face/Nose/Sinus: Normal nares present Eyes: Sclera: sclerae normal Neck: Neck: supple Resp: Effort & Inspection: normal respiratory effort Cardio: Rate: regular rate GI: Inspection: normal to inspection and non-distended GI Palp: Yes Soft to palpation, Yes Tenderness to palpation present (GI) (TTP in ruq, no rebound) and No Guarding due to palpation present (GI) Auscultation: normal bowel sounds Skin: General skin exam: normal color Neuro: General: patient oriented x3 and no focal motor deficits Extrem: General: no edema Psych: Affect: Anxious affect present Objective Data Vital Signs Vital Signs: Vital Signs - 24 hr 04/01/24 16:00 04/01/24 20:00 04/01/24 20:10 Temperature 98 F 98.0 F Pulse Rate 76 80 Respiratory Rate 18 18 Blood Pressure 152/82 H 138/76 Pulse Oximetry 98 99 Oxygen Delivery Room Air 04/02/24 08:21 04/02/24 08:00 Temperature 97.6 F Pulse Rate 65 Respiratory Rate 12 Blood Pressure 124/85 Pulse Oximetry 98 Oxygen Delivery Room Air Intake/Output Intake/Output: Intake & Output 03/30/24 03/31/24 04/01/24 04/02/24 23:59 23:59 23:59 23:59 Intake Total 1650.0 2394 2380 594 Output Total 1150 3800 2500 700 Balance 500.0 -1406 -120 -106 Meds/Results Medications: Active Medications Generic Name Dose Route Start Last Admin Trade Name Freq PRN Reason Stop Dose Admin Buspirone HCl 10 mg 03/31/24 11:00 04/02/24 08:38 Buspirone Hcl 10 Mg Tablet PO 10 mg BID MAYO Administration Enoxaparin Sodium 40 mg 03/30/24 09:00 04/02/24 08:51 Enoxaparin 40 Mg/0.4 Ml Syringe SUB-Q Not Given DAILY MAYO Hydromorphone HCl 0.5 mg 03/30/24 08:43 04/02/24 11:56 Hydromorphone Hcl Inj (*Crx) 1 Mg/Ml Syr IV PUSH 0.5 mg Q3H PRN Administration Pain Rated 7-10 Piperacillin/Tazobactam/Dextrose 3.375 gm in 50 mls @ 100 mls/hr 03/30/24 02:00 04/02/24 14:02 Zosyn 3.375 Gm/Ns 50 Ml IVPB Infused Q6H MAYO Infusion Lactated Ringer's 1,000 mls @ 30 mls/hr 04/02/24 08:00 04/02/24 14:22 Lr - Lactated Ringers Iv IV CONT 30 mls/hr .Q24H MAYO Administration Lisinopril 10 mg 03/31/24 11:00 04/02/24 08:38 Lisinopril 10 Mg Tablet PO 10 mg DAILY MAYO Administration Melatonin 5 mg 03/31/24 21:00 04/01/24 22:12 Melatonin 5 Mg Tablet PO
--- NOTE | 2024-04-02 14:57 | SUR.PREOP ---
[employer] PRESENT R/T PT SELF-HARM PRECAUTIONS.
--- NOTE | 2024-04-02 15:16 | WPDANESEPPF ---
Anes - Initial Pre Proc Eval Procedure: Operation Date: 04/02/24 14:30 Proposed Procedures p Laparoscopic Cholecystectomy With Intraoperative Cholangiograms - Rashad Dos Santos MD Date/Time: 04/02/24 15:16 Surgeon: Braxton Klein MD Pre Op Diagnosis: Metformin overdose, lactic acidosis, major depress Patient Data Age: 43 Gender: F Height: 1.57 m Weight: 76.2 kg Last Vital Signs Temp 98.1 F 04/02/24 14:30 Pulse 67 04/02/24 14:30 Resp 12 04/02/24 14:30 BP 137/78 04/02/24 14:30 Pulse Ox 98 04/02/24 14:30 O2 Del Method Room Air 04/02/24 14:30 Allergies Allergy/AdvReac Type Severity Reaction Status Date / Time No Known Allergies Allergy Verified 02/14/24 22:00 Home Medications Medication Instructions Recorded Confirmed Type buspirone 10 mg tablet 10 mg PO BID 02/14/24 03/29/24 History dicyclomine 20 mg tablet 20 mg PO TID 02/14/24 03/29/24 History eluxadoline 100 mg tablet (Viberzi) 100 mg PO BID 02/14/24 03/30/24 History fluticasone 250 mcg-salmeterol 50 1 ea inhalation BID PRN Shortness 02/14/24 03/30/24 History mcg/dose blistr powdr for Of Breath inhalation lisinopril 10 mg tablet 10 mg PO DAILY 02/14/24 03/29/24 History metformin 500 mg tablet,extended 500 mg PO BID 02/14/24 03/29/24 History release 24 hr oxycodone-acetaminophen 10 mg-325 1.5 tablet PO Q6-8H PRN Pain 02/14/24 03/30/24 History mg tablet rosuvastatin 10 mg tablet 10 mg PO HS 02/14/24 03/29/24 History levocetirizine 5 mg tablet (Xyzal) 5 mg PO HS PRN Congestion 03/31/24 03/31/24 History Laboratory Tests 04/01/24 04/01/24 04/01/24 04:08 16:35 20:29 WBC RBC Hgb Hct MCV MCH MCHC RDW Plt Count MPV Sodium Potassium Chloride Carbon Dioxide Anion Gap BUN Creatinine Estim Creat Clear Calc Estimated GFR Glucose POC Capillary Glucose 137 H mg/dl 105 mg/dl (65-105) (65-105) Calcium Phosphorus Magnesium Total Bilirubin AST ALT Alkaline Phosphatase Total Protein Albumin Beta HCG, Quant < 2.39 mIU/ML 04/02/24 04/02/24 04/02/24 03:54 08:26 12:04 WBC 14.9 H K/mm3 (4.5-10.0) RBC 4.49 M/mm3 (4.2-5.4) Hgb 14.1 g/dL (12.0-15.0) Hct 41.3 % (37.0-47.0) MCV 92.0 fl (80-100) MCH 31.4 pg (26-34) MCHC 34.1 g/dl (32-36) RDW 13.4 % (11.5-14.5) Plt Count 242 k/mm3 (150-375) MPV 9.3 fl (7.4-10.4) Sodium 138 mmol/L (137-145) Potassium 3.5 mmol/L (3.4-5.0) Chloride 106 mmol/L (98-107) Carbon Dioxide 28 mmol/L (22-30) Anion Gap 4 mmol/L (4-12) BUN 5 L mg/dL (7-17) Creatinine 0.70 mg/dL (0.7-1.0) Estim Creat Clear Calc 84 ml/min Estimated GFR > 60 (59 - ) Glucose 113 H mg/dL (65-110) POC Capillary Glucose 135 H mg/dl 107 H mg/dl (65-105) (65-105) Calcium 8.7 mg/dL (8.4-10.2) Phosphorus 5.7 H mg/dL (2.5-4.5) Magnesium 2.0 mg/dL (1.6-2.3) Total Bilirubin 0.6 mg/dL (0.2-1.3) AST 25 U/L (14-36) ALT 23 U/L (6-35) Alkaline Phosphatase 46 U/L (38-126) Total Protein 7.0 g/dL (6.3-8.2) Albumin 3.8 g/dL (3.5-5.1) Beta HCG, Quant Patient hx anesthesia problems: none Family hx anesthesia problems: none Results Review: All pre-operative results and documents have been reviewed as part of the pre-operative evaluation. [facility] Past Medical History Medical History (Reviewed
--- NOTE | 2024-04-02 15:30 | PM.IMPN ---
Progress Note: A&P Assessment and Plan (1) Intentional metformin overdose: Code(s): T38.3X2A - Poisoning by insulin and oral hypoglycemic [antidiabetic] drugs, intentional self-harm, initial encounter Status: Acute Assessment and Plan: Patient took 50 pills of 500 mg extended-release metformin at 10:30 a.m. 03/29 in an intentional suicide attempt. Nephrology was consulted in the ER and poison control was consulted A temporary dialysis catheter was placed by general surgery in the ER in anticipation of hemodialysis but Nephrology at this time has elected to continue with conservative management SP IV fluids with bicarb added and Lactic acid normal Pts labs are stable after fluid hydration Pt kidney function is stable HD catheter removed pt did not have dialysis (2) Suicide attempt by drug ingestion: Qualifiers: Encounter type: subsequent encounter Qualified Code(s): T50.902D - Poisoning by unspecified drugs, medicaments and biological substances, intentional self-harm, subsequent encounter Code(s): T50.902A - Poisoning by unspecified drugs, medicaments and biological substances, intentional self-harm, initial encounter Status: Acute Assessment and Plan: Patient here for suicide attempt. She does have a history of depression Continue suicide precautions Resume Buspar. pt is now stable, medically, Crisis team ok to assess inpatient evaluationand treatment today. (3) Lactic acidosis: Code(s): E87.20 - Acidosis, unspecified Status: Acute Assessment and Plan: Resolvedwith fluids (4) Abdominal pain: Qualifiers: Abdominal location: right upper quadrant Qualified Code(s): R10.11 - Right upper quadrant pain Code(s): R10.9 - Unspecified abdominal pain Status: Acute Assessment and Plan: Patient has had abdominal pain for 3 months in right upper quadrant. CT A/P in January 2024 and again February 2024 showing normal liver and GB RUQ US 03/07/24 showing diffuse fatty infiltration of the liver and dilated CBD. No GS MRCP 03/09/24 showing mildly dilated CBD but no choledocholithiasis. GB distention and diffuse hepatic steatosis. CT A/P here showing mild GB hydrops and dilated CBD but no obvious stone or obstruction. LFTs normal. HIDA scan is nl Pt wants to take pt for lap kathleen tomorrow due to on and off abdominal pains (5) HLD (hyperlipidemia): Qualifiers: Hyperlipidemia type: unspecified Qualified Code(s): E78.5 - Hyperlipidemia, unspecified Code(s): E78.5 - Hyperlipidemia, unspecified Status: Acute Assessment and Plan: LFTs normal. Continue rosuvastatin (6) Gastritis: Code(s): K29.70 - Gastritis, unspecified, without bleeding Status: Acute Assessment and Plan: CT abdomen pelvis showing mild gastritis and esophagitis Continue PPI (7) Tobacco dependence: Code(s): F17.200 - Nicotine dependence, unspecified, uncomplicated Status: Chronic Assessment and Plan: Patient was counseled and encouraged to quit smoking Subjective Date/time seen: 04/01/24 15:30 Interval history: 43yo female with PCOS, tobacco abuse and chronic abdominal pain here for an intentional metformin overdose. States she was having a lot of stress at work Pt denies any abdominal pains today ok to see the Crisis team today. Pt is medically stable to see Crisis team. HIDA scan was negative Pt still having abdominal pain Transfer is cancelled surgery would like to do lap cholecystectomy prior to Transfer to [facility] Review of Systems Review of Systems: Some abdominal pains on and off Exam Narrative: Gen - Midde aged lady looks depressed poor eye contact Chest - CTA bilaterally, nml RR CV - RRR S1/S2 Abd - Soft, obese, RUQ tenderness - Rt femoral dialysis catheter in place. Turcios secured draining clear yellow urine Ext - No p
--- NOTE | 2024-04-02 15:35 | PM.IMPN ---
Progress Note: A&P Assessment and Plan (1) Intentional metformin overdose: Code(s): T38.3X2A - Poisoning by insulin and oral hypoglycemic [antidiabetic] drugs, intentional self-harm, initial encounter Status: Acute Assessment and Plan: Patient took 50 pills of 500 mg extended-release metformin at 10:30 a.m. 03/29 in an intentional suicide attempt. Nephrology was consulted in the ER and poison control was consulted A temporary dialysis catheter was placed by general surgery in the ER in anticipation of hemodialysis but Nephrology at this time has elected to continue with conservative management SP IV fluids with bicarb added and Lactic acid normal Pts labs are stable after fluid hydration Pt kidney function is stable HD catheter removed pt did not have dialysis (2) Suicide attempt by drug ingestion: Qualifiers: Encounter type: subsequent encounter Qualified Code(s): T50.902D - Poisoning by unspecified drugs, medicaments and biological substances, intentional self-harm, subsequent encounter Code(s): T50.902A - Poisoning by unspecified drugs, medicaments and biological substances, intentional self-harm, initial encounter Status: Acute Assessment and Plan: Patient here for suicide attempt. She does have a history of depression Continue suicide precautions Resume Buspar. pt seen crisis team yesterday pt due to go to [facility] after surgery (3) Lactic acidosis: Code(s): E87.20 - Acidosis, unspecified Status: Acute Assessment and Plan: Resolvedwith fluids (4) Abdominal pain: Qualifiers: Abdominal location: right upper quadrant Qualified Code(s): R10.11 - Right upper quadrant pain Code(s): R10.9 - Unspecified abdominal pain Status: Acute Assessment and Plan: Patient has had abdominal pain for 3 months in right upper quadrant. CT A/P in January 2024 and again February 2024 showing normal liver and GB RUQ US 03/07/24 showing diffuse fatty infiltration of the liver and dilated CBD. No GS MRCP 03/09/24 showing mildly dilated CBD but no choledocholithiasis. GB distention and diffuse hepatic steatosis. CT A/P here showing mild GB hydrops and dilated CBD but no obvious stone or obstruction. LFTs normal. HIDA scan is nl Pt wants to take pt for lap kathleen today due to on and off abdominal pains (5) HLD (hyperlipidemia): Qualifiers: Hyperlipidemia type: unspecified Qualified Code(s): E78.5 - Hyperlipidemia, unspecified Code(s): E78.5 - Hyperlipidemia, unspecified Status: Acute Assessment and Plan: LFTs normal. Continue rosuvastatin (6) Gastritis: Code(s): K29.70 - Gastritis, unspecified, without bleeding Status: Acute Assessment and Plan: CT abdomen pelvis showing mild gastritis and esophagitis Continue PPI (7) Tobacco dependence: Code(s): F17.200 - Nicotine dependence, unspecified, uncomplicated Status: Chronic Assessment and Plan: Patient was counseled and encouraged to quit smoking Subjective Date/time seen: 04/02/24 15:35 Interval history: 43yo female with PCOS, tobacco abuse and chronic abdominal pain here for an intentional metformin overdose. States she was having a lot of stress at work Pt still having abdominal pain Transfer is cancelled surgery would like to do lap cholecystectomy prior to Transfer to [facility] Pt to have lap kathleen today advance diet as tolerated after surgery hopeful transfer ramya to [facility] seen by Crisis team already Review of Systems Review of Systems: on and off abdominal pains Exam Narrative: Gen - Midde aged lady looks depressed poor eye contact Chest - CTA bilaterally, nml RR CV - RRR S1/S2 Abd - Soft, obese, RUQ tenderness - Rt femoral dialysis catheter in place. Turcios secured draining clear yellow urine Ext - No pedal edema
[2024-04-02] MEDS: HYDROmorphone HCL INJ (*CRX) 1 MG/ML SYR 0.25 MG IV PUSH ×6 (15:48→20:25)
--- NOTE | 2024-04-02 17:38 | WPDHPUPDATE1 ---
History and Physical Update Update Date/Time: 04/02/24 17:38 History and Physical has been reviewed, including an updated exam of the patient. There are NO changes in the patient's condition. Risks, benefits, and alternatives have been discussed and questions answered. Patient agrees to proceed with procedure.
[2024-04-02] MEDS: ONDANSETRON INJ 4 MG/2 ML VIAL IV PUSH (17:50)
--- NOTE | 2024-04-02 17:58 | W.PM.PROC2 ---
Procedure Note - Detailed Date of Procedure 04/02/24 Pre-op Diagnosis Right upper quadrant pain, gallbladder hydrops Post-op Diagnosis Same (And Right upper quadrant appendix) Procedure Performed Laparoscopic cholecystectomy with intraoperative cholangiogram, laparoscopic appendectomy Surgeon Rashad Dos Santos MD Form Grader Leta Calles [facility] Anesthesia General and Local Indications Patient has been plagued by severe right upper quadrant abdominal pain for several weeks. She has had thorough testing and imaging has not shown any gallstones but did show dilation of her common bile duct. MRCP imaging did not show stones in the gallbladder or the bile duct. Hepatobiliary scan was normal. Her contrast upper GI was normal. Some imaging does describe a very distended gallbladder and on exam she has a palpable fundus of her gallbladder that is quite tender. She continues to have right upper quadrant abdominal pain, worse with eating, and no plausible source. She is taken to surgery now for laparoscopic cholecystectomy with intraoperative cholangiogram. Findings The gallbladder had some chronic inflammatory changes in the area of the infundibulum and triangle of Calot. Intraoperative cholangiogram was normal. Patient's appendix had a thickened proximal end and was somewhat pale. It was in the right upper quadrant probably 8 in from the gallbladder. The possibility of chronic appendicitis as the cause of her pain is plausible. Since the appendix was in the right upper quadrant and a possible source of pain, it was removed as well. Description of Procedure Patient was taken to surgery and induced into general anesthesia. The abdomen is prepped and draped. Trocars were placed in the usual fashion using applied Medical optical trocars and a 5 mm camera. The gallbladder was quite distended. We used a laparoscopic aspirator and decompressed the gallbladder. The cholecystotomy was closed with a Vicryl endoloop. The gallbladder was then retracted anterosuperiorly. It is was still pretty distended with fluid and quite a long gallbladder. Traction was placed on the infundibulum and dissection was then carried out in the cholecystohepatic triangle. There was quite a bit of chronic inflammation in this area. I dissected day cystic duct and during dissection of the cystic artery, it severed and proceeded to bleed. I got control of it and eventually clipped it securely. While I was suctioning some of the blood away, I saw laterally on the right very near the liver, the appendix. I reviewed the appendix and, as mentioned, it did have a pale color and a thickened proximal half. There were no signs of acute inflammation. It was very near the gallbladder fossa and was in the right upper quadrant. I went back to the gallbladder field. We suctioned the blood away and then irrigated the area. All looked quite good again. We then dissected the gallbladder off the liver at its lower half. Critical view was achieved at this point. The cystic duct was dissected to near its entirety. A clip was placed on the junction of the gallbladder and cystic duct. I made a small incision here and exposed the cystic duct lumen. I attempted to pass the cholangiogram catheter down the cystic duct but this was unsuccessful. I went ahead and clipped this opening and then a just a little farther down the cystic duct I made a 2nd opening. This I somewhat dilated with a right angle clamp. The cholangiogram catheter passed through this opening without difficulty. We then shot cine fluoroscopy cholangiograms with Omnipaque. They appeared to be of good quality. I did not see any evidence of a common bile duct stone or other abnormality. I spoke with the radiologist to agreed there were no stones. I went ahead and securely clipped the remainder of the cystic duct and divided it. I checked again the cystic artery which had been clipped and it looked quite good. We continued our dissection
[2024-04-02] MEDS: BUPIVACAINE/EPINEPHRINE 0.5% 50 ML VIAL 30 ML INFILTRATE (18:08)
--- NOTE | 2024-04-02 19:21 | SUR.PHASEI ---
1922 Sitter back at bedside
[2024-04-02] MEDS: hydrALAZINE HCL 20 MG/ML VIAL 10 MG IV PUSH ×2 (19:40→23:44)
[2024-04-02] MEDS: MELATONIN 5 MG TABLET PO (21:12)
[2024-04-02 22:09] LABS: Glucose Point of Care 187 mg/dl (65-105)
[2024-04-02] MEDS: HYDROmorphone HCL INJ (*CRX) 1 MG/ML SYR IV PUSH (23:30)
[2024-04-02] MEDS: diphenhydrAMINE HCl INJ 50 MG/ML VIAL 25 MG IV PUSH (23:44)
[2024-04-02] MEDS: IBUPROFEN IV 800 MG/200 ML 800 MG/200 ML BAG 400 MG IVPB (23:50)
[2024-04-03] VITALS: BP 162/92; PULSE 95; RESP 19; O2SAT 98
[2024-04-03 01:00] VITALS: BP 105/52; PULSE 91; RESP 22; O2SAT 98
--- NOTE | 2024-04-03 01:56 | PC.NURSE ---
Documentation correction: All 1999 and 2099 on 04/02/24 by this RN was done at 2215. RN attempted to change time of assessments and was unable to.
[2024-04-03] MEDS: PIPERACILLN/TAZ 3.375GM/NS50ML 3.375 GM/50 ML BAG IVPB ×2 (02:10→08:55)
[2024-04-03] MEDS: oxyCODONE/ACETAMINOPHEN (*CRX) 5-325 MG TABLET 1 TABLET PO ×3 (02:10→12:00)
[2024-04-03] MEDS: HYDROmorphone HCL INJ (*CRX) 1 MG/ML SYR IV PUSH ×2 (03:32→06:26)
[2024-04-03 04:08] LABS: Hematocrit 42.3 % (37.0-47.0); Hemoglobin 14.3 g/dL (12.0-15.0); Mean Corpuscular HGB Conc 33.8 g/dl (32-36); Mean Corpuscular Hemoglobin 30.9 pg (26-34); Mean Corpuscular Volume 91.4 fl (80-100); Mean Platelet Volume 9.3 fl (7.4-10.4); Platelet Count Result 290 k/mm3 (150-375); Red Blood Count 4.63 M/mm3 (4.2-5.4); Red Cell Distribution Width 13.7 % (11.5-14.5); White Blood Count 28.3 K/mm3 (4.5-10.0)
[2024-04-03 04:21] LABS: Alanine Aminotransferase 36 U/L (6-35); Alkaline Phosphatase 45 U/L (38-126); Anion Gap 6 mmol/L (4-12); Aspartate Amino Transferase 61 U/L (14-36); Bilirubin,Total 0.7 mg/dL (0.2-1.3); Blood Urea Nitrogen 6 mg/dL (7-17); Carbon Dioxide 27 mmol/L (22-30); Chloride 103 mmol/L (98-107); Estimated CRCL calculation 97 ml/min; Estimated Glomerular Filt Rate > 60; Glucose 163 mg/dL (65-110); Magnesium 1.9 mg/dL (1.6-2.3); Phosphorus 4.2 mg/dL (2.5-4.5); Potassium 3.5 mmol/L (3.4-5.0); Sodium 136 mmol/L (137-145)
[2024-04-03] MEDS: IBUPROFEN IV 800 MG/200 ML 800 MG/200 ML BAG 400 MG IVPB ×2 (05:09→16:20)
[2024-04-03 05:16] VITALS: BP 113/64; PULSE 82; RESP 22; TEMP 36.9; O2SAT 100
--- NOTE | 2024-04-03 05:26 | PC.NURSE ---
0526: Update given to per patient request.
[2024-04-03 07:52] LABS: Glucose Point of Care 134 mg/dl (65-105)
[2024-04-03 08:00] VITALS: BP 111/70; PULSE 84; RESP 18; TEMP 36.7; O2SAT 99
--- NOTE | 2024-04-03 08:22 | WPDANESPN ---
Anes - Prog Note Post-Op Date/Time: 04/03/24 08:22 Cardiovascular status: normal Respiratory status: normal Airway patency: baseline Mental status: baseline Post-Op hydration status: normal Vital Signs: Last Vital Signs Temp 36.7 C 04/03/24 08:00 Pulse 84 04/03/24 08:00 Resp 18 04/03/24 08:00 BP 111/70 04/03/24 08:00 Pulse Ox 99 04/03/24 08:00 O2 Del Method Room Air 04/02/24 20:45 O2 Flow Rate 8 04/02/24 19:45 Pain Score (VAS): 0 I/O: Intake & Output 04/02/24 04/03/24 04/03/24 23:59 07:59 15:59 Intake Total 350 894 Output Total 2500 950 Balance -2150 -56 Laboratory Tests 04/03/24 03:59 04/03/24 03:59 04/02/24 04/02/24 04/02/24 08:26 12:04 21:53 WBC RBC Hgb Hct MCV MCH MCHC RDW Plt Count MPV Sodium Potassium Chloride Carbon Dioxide Anion Gap BUN Creatinine Estim Creat Clear Calc Estimated GFR Glucose POC Capillary Glucose 135 H 107 H 187 H Calcium Phosphorus Magnesium Total Bilirubin AST ALT Alkaline Phosphatase Total Protein Albumin 04/03/24 04/03/24 03:59 07:46 WBC 28.3 H RBC 4.63 Hgb 14.3 Hct 42.3 MCV 91.4 MCH 30.9 MCHC 33.8 RDW 13.7 Plt Count 290 MPV 9.3 Sodium 136 L Potassium 3.5 Chloride 103 Carbon Dioxide 27 Anion Gap 6 BUN 6 L Creatinine 0.60 L Estim Creat Clear Calc 97 Estimated GFR > 60 Glucose 163 H POC Capillary Glucose 134 H Calcium 9.0 Phosphorus 4.2 Magnesium 1.9 Total Bilirubin 0.7 AST 61 H ALT 36 H Alkaline Phosphatase 45 Total Protein 7.0 Albumin 4.0 Post-procedural complaints: none Patient Feedback: Patient satisfied with anesthetic care.
[2024-04-03] MEDS: oxyCODONE/ACETAMINOPHEN (*CRX) 10-325 MG TABLET 1.5 TAB PO ×2 (08:53→15:02)
[2024-04-03] MEDS: ROSUVASTATIN 10 MG TABLET PO (08:54)
[2024-04-03] MEDS: lisinopriL 10 MG TABLET PO (08:54)
[2024-04-03] MEDS: busPIRone HCL 10 MG TABLET PO ×2 (08:54→16:19)
[2024-04-03] MEDS: PANTOPRAZOLE SODIUM IV 40 MG VIAL IV PUSH (08:54)
--- NOTE | 2024-04-03 11:26 | PM.IMPN ---
Progress Note: A&P Assessment and Plan (1) Intentional metformin overdose: Code(s): T38.3X2A - Poisoning by insulin and oral hypoglycemic [antidiabetic] drugs, intentional self-harm, initial encounter Status: Acute Assessment and Plan: Patient took 50 pills of 500 mg extended-release metformin at 10:30 a.m. 03/29 in an intentional suicide attempt. Nephrology was consulted in the ER and poison control was consulted A temporary dialysis catheter was placed by general surgery in the ER in anticipation of hemodialysis but Nephrology at this time has elected to continue with conservative management SP IV fluids with bicarb added and Lactic acid normal Pts labs are stable after fluid hydration Pt kidney function is stable HD catheter removed pt did not have dialysis (2) Suicide attempt by drug ingestion: Qualifiers: Encounter type: subsequent encounter Qualified Code(s): T50.902D - Poisoning by unspecified drugs, medicaments and biological substances, intentional self-harm, subsequent encounter Code(s): T50.902A - Poisoning by unspecified drugs, medicaments and biological substances, intentional self-harm, initial encounter Status: Acute Assessment and Plan: Patient here for suicide attempt. She does have a history of depression Continue suicide precautions Resume Buspar. pt to see crisis team today (3) Lactic acidosis: Code(s): E87.20 - Acidosis, unspecified Status: Acute Assessment and Plan: Resolved with fluids (4) Abdominal pain: Qualifiers: Abdominal location: right upper quadrant Qualified Code(s): R10.11 - Right upper quadrant pain Code(s): R10.9 - Unspecified abdominal pain Status: Acute Assessment and Plan: Patient has had abdominal pain for 3 months in right upper quadrant. CT A/P in January 2024 and again February 2024 showing normal liver and GB RUQ US 03/07/24 showing diffuse fatty infiltration of the liver and dilated CBD. No GS MRCP 03/09/24 showing mildly dilated CBD but no choledocholithiasis. GB distention and diffuse hepatic steatosis. CT A/P here showing mild GB hydrops and dilated CBD but no obvious stone or obstruction. LFTs normal. HIDA scan is nl sp lap kathleen post op day 1 cleared from medical and surgerical teams awaiting crisis evaluation today (5) HLD (hyperlipidemia): Qualifiers: Hyperlipidemia type: unspecified Qualified Code(s): E78.5 - Hyperlipidemia, unspecified Code(s): E78.5 - Hyperlipidemia, unspecified Status: Acute Assessment and Plan: LFTs normal. Continue rosuvastatin (6) Gastritis: Code(s): K29.70 - Gastritis, unspecified, without bleeding Status: Acute Assessment and Plan: CT abdomen pelvis showing mild gastritis and esophagitis Continue PPI (7) Tobacco dependence: Code(s): F17.200 - Nicotine dependence, unspecified, uncomplicated Status: Chronic Assessment and Plan: Patient was counseled and encouraged to quit smoking Subjective Date/time seen: 04/03/24 11:26 Interval history: 43yo female with PCOS, tobacco abuse and chronic abdominal pain here for an intentional metformin overdose. States she was having a lot of stress at work Pt still having abdominal pain Transfer is cancelled surgery would like to do lap cholecystectomy prior to Transfer to [facility] Pt sp lap kathleen pt is cleared post op day 1 by surgery team Ok for crisis team to see today Pt is medically cleared to see crisis team today Review of Systems Review of Systems: Walking, talking, tolerating diet, doing well post op day 1 Exam Narrative: Gen - Midde aged lady looks depressed Chest - CTA bilaterally, nml RR CV - RRR S1/S2 Abd - Soft, sp lap cholecystectomy surgery - Rt femoral dialysis catheter in place. Turcios secured draining clear yellow urine Ext - No pedal edema
[2024-04-03 11:58] LABS: Glucose Point of Care 130 mg/dl (65-105)
[2024-04-03 12:00] VITALS: BP 127/77
--- NOTE | 2024-04-03 14:09 | PM.PNGS ---
Progress Note: A&P Assessment and Plan (1) Abdominal pain, chronic, right upper quadrant: Code(s): R10.11 - Right upper quadrant pain; G89.29 - Other chronic pain Status: Acute Assessment and Plan: Doing well postop day 1 following laparoscopic cholecystectomy with IOC, which was negative. Also had a laparoscopic appendectomy with findings of a right upper quadrant appendix during surgery. Surgically stable for discharge to the psychiatric facility on a low-fat diet. Follow-up in 2-[address] Dos Santos. (2) Suicide attempt by drug ingestion: Qualifiers: Encounter type: subsequent encounter Qualified Code(s): T50.902D - Poisoning by unspecified drugs, medicaments and biological substances, intentional self-harm, subsequent encounter Code(s): T50.902A - Poisoning by unspecified drugs, medicaments and biological substances, intentional self-harm, initial encounter Status: Acute (3) Chronic pain: Qualifiers: Chronic pain type: chronic pain syndrome Qualified Code(s): G89.4 - Chronic pain syndrome Code(s): G89.29 - Other chronic pain Status: Chronic (4) Tobacco dependence: Code(s): F17.200 - Nicotine dependence, unspecified, uncomplicated Status: Chronic Subjective Subjective Date/Time Seen: 04/03/24 14:09 Post Op day: 1 (Laparoscopic cholecystectomy with IOC, laparoscopic appendectomy) Patient reports: no new complaints, feels better, pain is less, tolerating a regular diet, voiding w/o difficulty, flatus, no bowel movement and afebrile Interval history: Patient feeling better today. Reports her preoperative abdominal pain has improved and now she only has incisional pain postop which is controlled. No nausea or vomiting. Tolerating a diet. Ambulating and tolerating this well. Exam Const: General: comfortable and no acute distress GI: Inspection: non-distended and incision (incisions dry and intact) GI Palp: Yes Soft to palpation, Yes Tenderness to palpation present (GI) (incisional) and No Guarding due to palpation present (GI) Auscultation: normal bowel sounds Objective Data Vital Signs Vital Signs: Vital Signs - 24 hr 04/02/24 14:30 04/02/24 19:23 04/02/24 19:35 Temperature 98.1 F 97.4 F L Pulse Rate 67 83 87 Respiratory Rate 12 22 H 24 H Blood Pressure 137/78 181/98 H 153/93 H Pulse Oximetry 98 96 100 Oxygen Delivery Room Air Simple Face Mask Simple Face Mask Oxygen Flow Rate 8 8 04/02/24 19:45 04/02/24 20:00 04/02/24 20:15 Temperature Pulse Rate 90 90 89 Respiratory Rate 19 19 20 Blood Pressure 156/91 H 163/98 H 163/88 H Pulse Oximetry 100 97 96 Oxygen Delivery Simple Face Mask Room Air Room Air Oxygen Flow Rate 8 04/02/24 20:30 04/02/24 20:45 04/02/24 21:20 Temperature Pulse Rate 88 90 86 Respiratory Rate 20 20 16 Blood Pressure 169/95 H 170/90 H 152/82 H Pulse Oximetry 97 97 98 Oxygen Delivery Room Air Room Air Oxygen Flow Rate 04/02/24 21:30 04/02/24 21:45 04/02/24 22:00 Temperature Pulse Rate 84 86 87 Respiratory Rate 24 H 21 H 17 Blood Pressure 155/101 H 159/86 H 168/92 H Pulse Oximetry 95 96 96 Oxygen Delivery Oxygen Flow Rate 04/02/24 22:15 04/02/24 22:45 04/02/24 23:15 Temperature Pulse Rate 85 84 83 Respiratory Rate 24 H 26 H 22 H Blood Pressure 171/89 H 171/81 H 177/97 H Pulse Oximetry 98 99 98 Oxygen Delivery Oxygen Flow Rate 04/03/24 00:00 04/03/24 01:00 04/03/24 05:16 Temperature 98.4 F Pulse Rate 95 91 82 Respiratory Rate 19 22 H 22 H Blood Pressure 162/92 H 105/52 L 113/64 Pulse Oximetry 98 98 100 Oxygen Delivery Oxygen Flow Rate 04/03/24 08:00 04/03/24 08:00 04/03/24 12:00 Temperature 98.1 F Pulse Rate 84 Respiratory Rate 18 Blood Pressure 111/70 127/77 Pulse Oximetry 99 Oxygen Delivery Room Air Oxygen Flow Rate Intake/Output Intake/Output: Intake & Output 03/31/24 04/01/24 04/02/24 04/03/24
--- NOTE | 2024-04-03 15:40 | PM.PNGS ---
Progress Note: A&P Assessment and Plan (1) Cholecystitis, acute: Code(s): K81.0 - Acute cholecystitis Status: Acute Assessment and Plan: s/p lap appy and kathleen, await path, doing well, cont routine postop care, ok to discharge from surgical standpoint, f/u Dr. Dos Santos in 2 wks Subjective Subjective Date/Time Seen: 04/03/24 15:40 Interval history: feels much better, mild incisional pain Review of Systems Review of Systems: All systems reviewed & are unremarkable except as noted in HPI and below Exam Const: General: cooperative, comfortable and no acute distress Resp: Auscultation: clear to auscultation bilaterally Cardio: Rate: regular rate Rhythm: regular rhythm GI: Inspection: normal to inspection and incision GI Palp: Yes abdominal tenderness and Yes Soft to palpation Objective Data Vital Signs Vital Signs: Vital Signs - 24 hr 04/02/24 19:23 04/02/24 19:35 04/02/24 19:45 Temperature 36.3 C L Pulse Rate 83 87 90 Respiratory Rate 22 H 24 H 19 Blood Pressure 181/98 H 153/93 H 156/91 H Pulse Oximetry 96 100 100 Oxygen Delivery Simple Face Mask Simple Face Mask Simple Face Mask Oxygen Flow Rate 8 8 8 04/02/24 20:00 04/02/24 20:15 04/02/24 20:30 Temperature Pulse Rate 90 89 88 Respiratory Rate 19 20 20 Blood Pressure 163/98 H 163/88 H 169/95 H Pulse Oximetry 97 96 97 Oxygen Delivery Room Air Room Air Room Air Oxygen Flow Rate 04/02/24 20:45 04/02/24 21:20 04/02/24 21:30 Temperature Pulse Rate 90 86 84 Respiratory Rate 20 16 24 H Blood Pressure 170/90 H 152/82 H 155/101 H Pulse Oximetry 97 98 95 Oxygen Delivery Room Air Oxygen Flow Rate 04/02/24 21:45 04/02/24 22:00 04/02/24 22:15 Temperature Pulse Rate 86 87 85 Respiratory Rate 21 H 17 24 H Blood Pressure 159/86 H 168/92 H 171/89 H Pulse Oximetry 96 96 98 Oxygen Delivery Oxygen Flow Rate 04/02/24 22:45 04/02/24 23:15 04/03/24 00:00 Temperature Pulse Rate 84 83 95 Respiratory Rate 26 H 22 H 19 Blood Pressure 171/81 H 177/97 H 162/92 H Pulse Oximetry 99 98 98 Oxygen Delivery Oxygen Flow Rate 04/03/24 01:00 04/03/24 05:16 04/03/24 08:00 Temperature 36.9 C 36.7 C Pulse Rate 91 82 84 Respiratory Rate 22 H 22 H 18 Blood Pressure 105/52 L 113/64 111/70 Pulse Oximetry 98 100 99 Oxygen Delivery Oxygen Flow Rate 04/03/24 08:00 04/03/24 12:00 Temperature Pulse Rate Respiratory Rate Blood Pressure 127/77 Pulse Oximetry Oxygen Delivery Room Air Oxygen Flow Rate Intake/Output Intake/Output: Intake & Output 03/31/24 04/01/24 04/02/24 04/03/24 23:59 23:59 23:59 23:59 Intake Total 2394 2380 944 1184 Output Total 3800 2500 3200 950 [facility] -4684 -120 -1986 234 Meds/Results Medications: Active Medications Generic Name Dose Route Start Last Admin Trade Name Freq PRN Reason Stop Dose Admin Acetaminophen 500 mg 04/02/24 22:38 Acetaminophen 500 Mg Tablet PO Q6H PRN Pain Rated 1-3 Buspirone HCl 10 mg 03/31/24 11:00 04/03/24 08:54 Buspirone Hcl 10 Mg Tablet PO 10 mg BID MAYO Administration Diphenhydramine HCl 25 mg 04/02/24 22:38 04/02/24 23:44 Diphenhydramine Hcl Inj 50 Mg/Ml Vial IV PUSH 25 mg Q6H PRN Administration Itching Enoxaparin Sodium 40 mg 03/30/24 09:00 04/03/24 10:57 Enoxaparin 40 Mg/0.4 Ml Syringe SUB-Q Not Given DAILY MAYO Hydralazine HCl 10 mg 04/02/24 23:27 04/02/24 23:44 Hydralazine Hcl 20 Mg/Ml Vial IV PUSH 10 mg Q4H PRN Administration Hypertension Hydromorphone HCl 0.5 mg 03/30/24 08:43 04/02/24 21:12 Hydromorphone Hcl Inj (*Crx) 1 Mg/Ml Syr IV PUSH 0.5 mg Q3H PRN Administration Pain Rated 7-10 Hydromorphone HCl 1 mg 04/02/24 22:38 04/03/24 06:26 Hydromorphone Hcl Inj (*Crx) 1 Mg/Ml Syr IV PUSH 1 mg Q2H PRN Administration Breakthrough Pain Rated 7-10 or NPO Hydromorphone HCl 0.5 mg 04/02/24 22:38 Hydromorp
[2024-04-03 16:00] VITALS: BP 112/88; PULSE 84; RESP 16; TEMP 37.1; O2SAT 98
[2024-04-03 16:26] LABS: Glucose Point of Care 116 mg/dl (65-105)
--- NOTE | 2024-04-03 17:49 | PM.DS ---
DS: Admitting Diagnosis Discharge Date 04/03/2024 Admitting Diagnosis Overdose DS: Discharge Diagnosis Discharge Diagnosis (1) Intentional metformin overdose: Code(s): T38.3X2A - Poisoning by insulin and oral hypoglycemic [antidiabetic] drugs, intentional self-harm, initial encounter Status: Acute Assessment and Plan: Patient took 50 pills of 500 mg extended-release metformin at 10:30 a.m. 03/29 in an intentional suicide attempt. Nephrology was consulted in the ER and poison control was consulted A temporary dialysis catheter was placed by general surgery in the ER in anticipation of hemodialysis but Nephrology at this time has elected to continue with conservative management SP IV fluids with bicarb added and Lactic acid normal Pts labs are stable after fluid hydration Pt kidney function is stable HD catheter removed pt did not have dialysis (2) Suicide attempt by drug ingestion: Qualifiers: Encounter type: subsequent encounter Qualified Code(s): T50.902D - Poisoning by unspecified drugs, medicaments and biological substances, intentional self-harm, subsequent encounter Code(s): T50.902A - Poisoning by unspecified drugs, medicaments and biological substances, intentional self-harm, initial encounter Status: Acute Assessment and Plan: Patient here for suicide attempt. She does have a history of depression Continue suicide precautions Resume Buspar Pt to see crisis team today Ok to Dc home with suicide pact (3) Lactic acidosis: Code(s): E87.20 - Acidosis, unspecified Status: Acute Assessment and Plan: Resolved with fluids (4) Abdominal pain: Qualifiers: Abdominal location: right upper quadrant Qualified Code(s): R10.11 - Right upper quadrant pain Code(s): R10.9 - Unspecified abdominal pain Status: Acute Assessment and Plan: Patient has had abdominal pain for 3 months in right upper quadrant. CT A/P in January 2024 and again February 2024 showing normal liver and GB RUQ US 03/07/24 showing diffuse fatty infiltration of the liver and dilated CBD. No GS MRCP 03/09/24 showing mildly dilated CBD but no choledocholithiasis. GB distention and diffuse hepatic steatosis. CT A/P here showing mild GB hydrops and dilated CBD but no obvious stone or obstruction. LFTs normal. HIDA scan is nl sp lap kathleen post op day 1 cleared from medical and surgical teams awaiting crisis evaluation today ok to dc home with suicide pact (5) HLD (hyperlipidemia): Qualifiers: Hyperlipidemia type: unspecified Qualified Code(s): E78.5 - Hyperlipidemia, unspecified Code(s): E78.5 - Hyperlipidemia, unspecified Status: Acute Assessment and Plan: LFTs normal. Continue rosuvastatin (6) Gastritis: Code(s): K29.70 - Gastritis, unspecified, without bleeding Status: Acute Assessment and Plan: CT abdomen pelvis showing mild gastritis and esophagitis Continue PPI (7) Tobacco dependence: Code(s): F17.200 - Nicotine dependence, unspecified, uncomplicated Status: Chronic Assessment and Plan: Patient was counseled and encouraged to quit smoking (8) Cholecystitis, acute: Code(s): K81.0 - Acute cholecystitis Status: Acute DS: Summary Hospital Course Hospital Course: 43yo female with PCOS, tobacco abuse and chronic abdominal pain here for an intentional metformin overdose. States she was having a lot of stress at work Pt still having abdominal pain Transfer is cancelled surgery would like to do lap cholecystectomy prior to Transfer to [facility] Pt sp lap kathleen pt is cleared post op day 1 by surgery team Ok for crisis team to see today Pt is medically cleared to see crisis team ok to DC with suicide pact Time Spent with Patient Time attestation: Total time spent providing and/or coordinating discharge services:50 minutes on day of DC
== END 2024-04-03 18:12 | disposition home or self-care (01) | DRG 908 ==
LOC: ANHED 19:48 → ANHICU 23:16
PROVIDERS: Internal Medicine; Internal Medicine Nephrology; Surgery; Admitting Provider Internal Medicine; Emergency Provider Emergency Medicine; Visit Provider Family Medicine
PROC: 0FT44ZZ Resection of Gallbladder, Percutaneous Endoscopic Approach (ICD-10-PCS; CPT 47562; principal; 2024-04-02 14:30)
PROC: 0DTJ4ZZ Resection of Appendix, Percutaneous Endoscopic Approach (ICD-10-PCS; CPT 44970; 2024-04-02 14:30)
DX: T38.3X2A Poisoning by insulin and oral hypoglycemic [antidiabetic] drugs, intentional self-harm, initial encounter (principal); E87.20 Acidosis, unspecified; K81.0 Acute cholecystitis; K82.1 Hydrops of gallbladder; K81.1 Chronic cholecystitis; I10 Essential (primary) hypertension; E28.2 Polycystic ovarian syndrome; E78.5 Hyperlipidemia, unspecified; E66.9 Obesity, unspecified; K58.0 Irritable bowel syndrome with diarrhea; K58.9 Irritable bowel syndrome, unspecified; R10.11 Right upper quadrant pain; K83.8 Other specified diseases of biliary tract; K29.70 Gastritis, unspecified, without bleeding; M54.30 Sciatica, unspecified side; G89.29 Other chronic pain; G47.00 Insomnia, unspecified; F32.9 Major depressive disorder, single episode, unspecified; F41.9 Anxiety disorder, unspecified; F12.90 Cannabis use, unspecified, uncomplicated; F17.210 Nicotine dependence, cigarettes, uncomplicated; Z20.822 Contact with and (suspected) exposure to COVID-19; Z87.442 Personal history of urinary calculi
CPT/HCPCS: 36415; 36600; 71045; 74177; 74246; 74300; 78227; 80048; 80053; 80307; 81001; 81025; 82375; 82805; 82948; 83050; 83605; 83735; 84100; 84702; 85025; 85027; 85610; 85730; 87040; 87635; 87641; 88304; 93005; 96361; 96365; 96375; 96376; 99285; A9270; A9537; C1751; C9113; J0330; J0360; J1170; J1200; J1741; J1815; J2250; J2371; J2405; J2543; J2704; J2805; J3010; J3475; J7030; J7120; Q9966; Q9967

== ENCOUNTER 2024-04-06 09:33 | Inpatient (IN) | payer BC, SELFPAY ==
[2024-04-06] VITALS (22 sets, daily range): BP systolic 103–199; BP diastolic 59–115; PULSE 76–101; RESP 11–23; TEMP 35.8–36.5; O2SAT 95–100; BMI 28.3
--- NOTE | ~2024-04-06 | NM_ITS ---
EXAMINATION: NM hepatobiliary wo pharm DATE: 04/07/2024 08:52 INDICATION: Epigastric abdominal pain after cholecystectomy. COMPARISON: CT abdomen and pelvis/ TECHNIQUE: 5.5 mCi Tc-99m mebrofenin (Choletec) was administered intravenously. Scintigraphic images of the abdomen were obtained for one hour. FINDINGS: There is normal clearance of radiotracer from the blood pool. There is homogeneous tracer u ptake by the liver. Activity progresses to the bowel. IMPRESSION: 1. Normal hepatobiliary scintigraphy status post cholecystectomy. No bile leak. Reviewed, dictated and finalized at location A. IMPRESSION: 1. Normal hepatobiliary scintigraphy status post cholecystectomy. No bile leak .
--- NOTE | ~2024-04-06 | CT_ITS ---
EXAMINATION: CT abdomen pelvis w con DATE: 04/06/2024 11:01 INDICATION: Epigastric abdominal pain. TECHNIQUE: Computed tomography (CT) of the abdomen and pelvis was performed with 100 mL Omnipaque 350 intravenous contrast. Automated exposure control and iterative reconstruction technique were employe d. The dose-length product was 605.91 mGy-cm. COMPARISON: CT abdomen and pelvis 03/29/2024, 02/14/24, 08/20/15 FINDINGS: The visualized portions of the lung bases demonstrate mild atelectasis. No pleural effusion . The heart size is normal. No pericardial effusion. There is a 4 mm cyst in the liver. The spleen is normal. There are changes of cholecystectomy. There is a 3.1 x 0.9 x 2.1 cm hypoechoic mass in the g allbladder fossa. The pancreas, adrenal glands, and right kidney are normal. There is cortical thinni ng of left kidney. There is a 4 mm stone in left kidney. There is mild left hydronephrosis and hydrou reter. There are no dilated loops of bowel. The appendix is not visualized. There are no pathological ly enlarged lymph nodes. There is no free intraperitoneal fluid. There is mild thoracic and lumbar sp ondylosis. IMPRESSION: 1. Small mass in the gallbladder fossa, likely inflammation/scarring versus hematoma from recent chol ecystectomy. 2. Chronic mild left hydronephrosis and hydroureter. Mild left kidney atrophy. Reviewed, dictated and finalized at location A. IMPRESSION: 1. Small mass in the gallbladder fossa, likely inflammation/scarring versus hem atoma from recent cholecystectomy. 2. Chronic mild left hydronephrosis and hydroureter. Mild left kidney atrophy.
--- NOTE | ~2024-04-06 | MR_ITS ---
EXAMINATION: MR MRCP wo/w con/w 3D wo ind DATE: 04/08/2024 13:30 INDICATION: Abdominal pain. Biliary dilatation. Elevated lipase. TECHNIQUE: Magnetic resonance imaging (MRI) of the abdomen was performed without and with 14 mL Multi Maxine intravenous contrast. Sequences included coronal T2-weighted FS FSE, coronal T2-weighted FSE, a xial T1-weighted LAVA, coronal FS FIESTA, axial dual-echo T1-weighted SPGR, coronal lava-FLEX, sagitt al T2-weighted FSE, axial T2-weighted FSE, and axial DWI. Thick-slab T2-weighted FSE images were obta ined for magnetic resonance cholangiopancreatography (MRCP). Maximum intensity projection 3-D reconst ructions of the volumetric data were created by the technologist. Postcontrast sequences included cor onal LAVA-flex and time course of axial T1-weighted LAVA. COMPARISON: CT abdomen and pelvis 04/06/2024 FINDINGS: ABDOMEN MRI: There is a 5 mm cyst in the liver. There is a 2.9 x 1.5 cm mass in the gallbladder fossa , consistent with inflammation/scarring versus hematoma from recent cholecystectomy. The spleen, panc reas, adrenal glands, and right kidney are normal. There is a 13 mm cyst in left kidney. There is mil d atrophy of left kidney. There is mild left hydronephrosis. There are no dilated loops of bowel. The re is trace perihepatic ascites. There are no pathologically enlarged lymph nodes. ABDOMEN MRCP: The common duct is normal and measures 6 mm. No choledocholithiasis. IMPRESSION: 1. No choledocholithiasis. 2. Chronic mild left hydronephrosis and hydroureter. Mild left kidney atrophy. Reviewed, dictated and finalized at location A.
--- NOTE | ~2024-04-06 | US_ITS ---
EXAMINATION: US right upper quadrant DATE: 04/06/2024 15:49 INDICATION: Elevated liver enzymes, status post cholecystectomy TECHNIQUE: Multiple grayscale and Doppler ultrasound images of the right upper quadrant were obtained . COMPARISON: None available. FINDINGS: Mildly dilated pancreatic duct. Increased liver echogenicity No surface nodularity. Normal hepatopetal flow in the main portal vein. Surgically absent gallbladder. Irregular focus of avascular echogenicity in the gallbladder fossa. The common bile duct measures 10 mm. There was no sonographic Luna sign. IMPRESSION: Echogenic liver, most commonly due to steatosis but also can be seen with hepatitis and fibrosis. Post surgical change/hematoma in the gallbladder fossa. Intrahepatic, extrahepatic and pancreatic duct dilation concerning for obstruction. Correlate with bi liary labs and forthcoming hepatobiliary scan result. Reviewed, dictated and finalized at location K. IMPRESSION: Echogenic liver, most commonly due to steatosis but also can be seen with hepat itis and fibrosis. Post surgical change/hematoma in the gallbladder fossa. Intrahepatic, extrahepatic and pancreatic duct dilation concerning for obstruct ion. Correlate with biliary labs and forthcoming hepatobiliary scan result.
[2024-04-06] MEDS: SODIUM CHLORIDE 0.9% IV 1,000 ML 999 ML IV CONT (10:25)
[2024-04-06] MEDS: ONDANSETRON INJ 4 MG/2 ML VIAL IV PUSH (10:26)
[2024-04-06] MEDS: MORPHINE SULFATE (*CRX) 4 MG/ML INJ IV PUSH (10:27)
[2024-04-06 10:36] LABS: Basophils Absolute Auto 0.1 K/mm3 (0.0-0.1); Basophils Percent Auto 0.3 % (0.2-1.2); Eosinophils Absolute Auto 0.2 K/mm3 (0-0.3); Eosinophils Percent Auto 0.4 % (0-4.4); Hemoglobin 14.8 g/dL (12.0-15.0); Immature Granulocyte Absolute 0.34 K/mm3 (0.00-0.031); Lymphocytes Absolute Auto 2.68 K/mm3 (0.9-3.2); Lymphocytes Percent Auto 7.5 % (18.3-44.2); Mean Corpuscular HGB Conc 34.4 g/dl (32-36); Mean Corpuscular Hemoglobin 31.8 pg (26-34); Mean Corpuscular Volume 92.3 fl (80-100); Mean Platelet Volume 9.5 fl (7.4-10.4); Monocytes Absolute Auto 1.6 K/mm3 (0.1-0.6); Monocytes Percent Auto 4.4 % (2.6-8.5); Neutrophils Absolute Auto 30.7 K/mm3 (1.3-6.7); Neutrophils Percent Auto 86.4 % (45.5-73.1); Platelet Count Result 314 k/mm3 (150-375); Red Blood Count 4.66 M/mm3 (4.2-5.4); Red Cell Distribution Width 13.7 % (11.5-14.5); White Blood Count 35.6 K/mm3 (4.5-10.0)
[2024-04-06 10:48] LABS: Alanine Aminotransferase 88 U/L (6-35); Albumin Level 4.1 g/dL (3.5-5.1); Alkaline Phosphatase 81 U/L (38-126); Anion Gap 10 mmol/L (4-12); Aspartate Amino Transferase 258 U/L (14-36); Bilirubin,Total 0.8 mg/dL (0.2-1.3); Blood Urea Nitrogen 8 mg/dL (7-17); Calcium 9.6 mg/dL (8.4-10.2); Carbon Dioxide 23 mmol/L (22-30); Chloride 109 mmol/L (98-107); Estimated CRCL calculation 93 ml/min; Estimated Glomerular Filt Rate > 60; Glucose 192 mg/dL (65-110); Potassium 3.3 mmol/L (3.4-5.0); Sodium 142 mmol/L (137-145)
[2024-04-06 10:51] LABS: Estimated CRCL calculation 93 ml/min; Estimated Glomerular Filt Rate > 60
[2024-04-06 11:04] LABS: Lipase 4548 U/L (23-300)
--- NOTE | 2024-04-06 11:10 | PC.NURSE ---
Pt up to bathroom. Gait steady. Rates pain down to 8/10. Urine sample collected and sent to lab. Bedside preg negative.
--- NOTE | 2024-04-06 11:16 | ED.ABDPAIN ---
HPI - Abdominal Pain General Chief Complaint: Recheck/Abnormal Lab/Rx Stated Complaint: Poat op pain Time Seen by Provider: 04/06/24 10:07 History of Present Illness HPI narrative: Patient is a 43-year-old female who presents ER with abdominal pain. Recently had a cholecystectomy an appendectomy performed by Dr. Dos Santos. She is discharged couple days ago. She had been doing well but this morning fell a sudden epigastric pain. No radiation. She did eat a hamburger last night. No fevers or chills or sweats. No issues with her surgical sites. Of note patient was also here for intentional metformin overdose last week. Related Data Home Medications Medication Instructions Recorded Confirmed buspirone 10 mg tablet 10 mg PO BID 02/14/24 04/06/24 dicyclomine 20 mg tablet 20 mg PO TID 02/14/24 04/06/24 eluxadoline 100 mg tablet (Viberzi) 100 mg PO BID 02/14/24 04/06/24 fluticasone 250 mcg-salmeterol 50 1 ea inhalation BID PRN Shortness 02/14/24 04/06/24 mcg/dose blistr powdr for Of Breath inhalation lisinopril 10 mg tablet 10 mg PO DAILY 02/14/24 04/06/24 metformin 500 mg tablet,extended 500 mg PO BID 02/14/24 04/06/24 release 24 hr rosuvastatin 10 mg tablet 10 mg PO HS 02/14/24 04/06/24 levocetirizine 5 mg tablet (Xyzal) 5 mg PO HS PRN Congestion 03/31/24 04/06/24 Allergies Allergy/AdvReac Type Severity Reaction Status Date / Time No Known Allergies Allergy Verified 04/06/24 09:52 Review of Systems Review of Systems: All systems reviewed & are unremarkable except as noted in HPI and below Constitutional: Constitutional: Reports no additional constitutional complaints ENT: Reports system reviewed and no additional complaints, except as documented Cardiovascular: Cardiovascular: Reports no additional cardiovascular complaints Respiratory: Respiratory: Reports no additional respiratory complaints Gastrointestinal: Gastrointestinal: Reports abdominal pain, Denies diarrhea, Denies nausea and Denies vomiting Genitourinary: Genitourinary: Reports no additional female genitourinary complaints PMFSH Past Medical History Medical History (Updated 04/06/24 @ 16:36 by Pranav Golden MD) Asthma Chronic pain r/t sciatica and L4/L5/L6 protruding HLD (hyperlipidemia) HTN (hypertension) Irritable bowel syndrome with diarrhea Irritable bowel syndrome with diarrhea Lactic acid acidosis PCOS (polycystic ovarian syndrome) Surgical History Surgical History (Updated 04/06/24 @ 16:33 by Pranav Golden MD) History of appendectomy History of cervical spinal surgery (03/08/23) anterior cervical discectomy and fusion History of cholecystectomy Family History Family History Father Hypertension Patient's father is in good health Cerebrovascular accident Family history of heart disease in male family member before age 55 Mother Patient's mother is in good health Family history of diabetes mellitus in first degree relative Sibling Family history of diabetes mellitus in first degree relative Social History Social History Social History: Lives at home with her father and , Chinmay Muñoz. Chinmay is her emergency contact ([phone]). Smoking packs per day: 1 Smoking cigarettes per day: 20.0 Years smoked: 29 Smoking pack-years: 29.00 Smoking status: Heavy tobacco smoker Second hand tobacco smoke exposure: Yes Alcohol intake: never Alcohol use details: rarely drinks, a couple time a month Substance use: current Substance use type: marijuana Last use: 03/29 Do You Feel Safe in your Home?: Yes Lack of Transportation: No Lack of Food: Never True Current Housing: I Have Housing Concerned About Future Housing: No Difficulty Paying Gas/Electric Bills: No Difficulty Paying for Meds: No Currently Unemployed: No Education: Grade School Difficulty w
[2024-04-06 11:44] LABS: Appearance Urine Clear (Clear); Bacteria Urine Rare /hpf; Bilirubin Urine Negative (Negative); Blood Urine 1+ (Negative); Color Urine Yellow (Yellow); Glucose Urine UA Negative (Negative); Ketones Urine Negative (Negative); Leukocyte Esterase Ur Negative LEU/UL (Negative); Need Manual Microscopic Reviewed; Nitrate Urine Negative (Negative); Non Pathogenic Casts 0-2; Protein Urine Negative (Negative); Squamous Epithelial Cell Urine Moderate /hpf (Few); Urobilinogen Urine 0.2 mg/dL (<2.0); WBC Urine 0-5 /hpf (0-3)
[2024-04-06 11:45] LABS: Add Urine Microscopic? YES; Specific Grav Ur 1.036 (1.001-1.035)
[2024-04-06] MEDS: PIPERACILLN/TAZ 3.375GM/NS50ML 3.375 GM/50 ML BAG IVPB ×3 (11:56→23:43)
[2024-04-06 12:02] LABS: Lactic Acid Reflex 1.5 mmol/L (0.7-2.0)
--- NOTE | 2024-04-06 13:44 | ADMGEN ---
This patient, Lissa Muñoz, was admitted to 3 [facility] Surg Room 300-01. Patient/family oriented to hospital policies and general routines including ID bracelet, bed and alarms, visiting hours, pain management, procedures, bathroom and other care routines, personal items, smoking policy, room service/diet, and visiting hours. Information on how to activate the Rapid Response Team has been discussed. Patient/Family are encouraged to report perceived risks to care and to ask questions if they do not understand what they are told or what they should do.
--- NOTE | 2024-04-06 13:49 | PM.IMHP ---
H&P: HPI History of Present Illness Date/Time: 04/06/24 13:49 Chief Complaint: Abdominal pain Narrative: This is a 43-year-old female who presented recently for suicide attempt with intentional overdose on metformin manage conservatively without requiring any dialysis was cleared by crisis team and discharged on 04/03/2024, also had CT abdomen pelvis showing dilated CBD MRCP showing mildly dilated CBD with no choledocholithiasis however had gallbladder distention and diffuse hepatic steatosis. Repeat CTA abdomen and pelvis showed mild gallbladder hydrops and dilated CBD but no obvious obstruction. HIDA scan was normal. Surgery was consulted and she is status post lap cholecystectomy performed on 04/02/2024. She presents back to the ED today with abdominal pain and some nausea with no vomiting. This started all of sudden this a.m.. No fever chills. No diarrhea. She had normal bowel movement earlier today. She was hypertensive on arrival to the ED laboratory workup revealed WBC count of 35.6. Hemoglobin was normal. Normal LFTs are elevated with particularly transaminases with AST 258 ALT 88. Lipase level was elevated 4548. CT abdomen pelvis showed small mass in the gallbladder fossa likely inflammation/scarring versus hematoma from recent cholecystectomy. Chronic mild left hydronephrosis and hydroureter was also noted along with mild left kidney atrophy. She is admitted in this setting for further treatment and management. Review of Systems Review of Systems: - CONSTITUTIONAL: Denies weight loss, fever and chills. - HEENT: Denies changes in vision and hearing - RESPIRATORY: Denies SOB and cough. - CV: Denies palpitations and CP. - GI: Reports abdominal pain, nausea, vomiting and denies diarrhea. - : Denies dysuria and urinary frequency. - MSK: Denies myalgia and joint pain. - SKIN: Denies rash and pruritus. - NEUROLOGICAL: Denies headache and syncope. - PSYCHIATRIC: Denies recent changes in mood. Denies anxiety and depression. [facility] Past Medical History Medical History Asthma Chronic pain r/t sciatica and L4/L5/L6 protruding HLD (hyperlipidemia) HTN (hypertension) Irritable bowel syndrome with diarrhea Irritable bowel syndrome with diarrhea Lactic acid acidosis PCOS (polycystic ovarian syndrome) Surgical History Surgical History History of cervical spinal surgery (03/08/23) anterior cervical discectomy and fusion Family History Family History Father Hypertension Patient's father is in good health Cerebrovascular accident Family history of heart disease in male family member before age 55 Mother Patient's mother is in good health Family history of diabetes mellitus in first degree relative Sibling Family history of diabetes mellitus in first degree relative Social History Social History Social History: Lives at home with her father and , Chinmay Muñoz. Chinmay is her emergency contact ([phone]). Smoking packs per day: 1 Smoking cigarettes per day: 20.0 Years smoked: 29 Smoking pack-years: 29.00 Smoking status: Heavy tobacco smoker Tobacco type: cigarettes Second hand tobacco smoke exposure: Yes Alcohol intake: never Alcohol use details: rarely drinks, a couple time a month Substance use: current Substance use type: marijuana Last use: 03/29 Do You Feel Safe in your Home?: Yes Lack of Transportation: No Lack of Food: Never True Current Housing: I Have Housing Concerned About Future Housing: No Difficulty Paying Gas/Electric Bills: No Difficulty Paying for Meds: No Currently Unemployed: No Education: Grade School Difficulty w/ Childcare or Family Care: No Living arrangements: with famil
[2024-04-06] MEDS: MORPHINE SULFATE (*CRX) 2 MG/ML INJ IV PUSH ×4 (13:51→23:32)
[2024-04-06] MEDS: SODIUM CHLORIDE 0.9% IV 1,000 ML 200 ML IV CONT ×2 (13:51→20:40)
[2024-04-06] MEDS: busPIRone HCL 10 MG TABLET PO (14:22)
[2024-04-07] MEDS: MORPHINE SULFATE (*CRX) 2 MG/ML INJ IV PUSH ×10 (02:41→23:38)
[2024-04-07] MEDS: SODIUM CHLORIDE 0.9% IV 1,000 ML 200 ML IV CONT ×2 (03:13→11:12)
[2024-04-07 05:24] VITALS: BP 109/70; PULSE 84; RESP 16; TEMP 36.4; O2SAT 96
[2024-04-07] MEDS: PIPERACILLN/TAZ 3.375GM/NS50ML 3.375 GM/50 ML BAG IVPB ×3 (05:31→17:23)
[2024-04-07 06:58] LABS: Lipase 269 U/L (23-300)
[2024-04-07] MEDS: PANTOPRAZOLE SODIUM IV 40 MG VIAL IV PUSH (07:40)
[2024-04-07 08:00] VITALS: O2SAT 96
--- NOTE | 2024-04-07 08:02 | P.CONGI_ITS ---
I, Tyshawn Weber MD, have provided a substantive portion of the care of this patient and discussed the patient with my Nurse Practitioner. I have reviewed any new relevant radiographic and laboratory results including medications. I agree with her documentation as noted below.?I personally performed the medical decision making and much of the history and exam for this encounter. briefly, she is known to us from recent hospitalization after had suicidal attempt with metformin OD, also chronic RUQ, imaging showed dilated bile duct but had normal hida and mrcp, decision was finally to proceed with lap kathleen. She is back after severe pain in RUQ, elevated lipase, also leukocytosis and liver enzymes. CT scan showed hematoma at GB fossa, hida scan no bile leak. Pending new mrcp to assess biliary system, wonder if post surgical changes/hematoma part of problem (awaiting on MRCP). Surgery to see patient again. On antibiotics. She also will need colonoscopy as outpatient. Also ordered work up for chronic liver disease (she had mild elevated transaminases previously) Assessment and Plan Assessment and plan (1) Acute pancreatitis: Qualifiers: Acute pancreatitis complication: unspecified Pancreatitis type: biliary Qualified Code(s): K85.10 - Biliary acute pancreatitis without necrosis or infection Code(s): K85.90 - Acute pancreatitis without necrosis or infection, unspecified Status: Acute (2) Abnormal findings on imaging of biliary tract: Code(s): R93.2 - Abnormal findings on diagnostic imaging of liver and biliary tract Status: Acute (3) Elevated liver transaminase level: Code(s): R74.01 - Elevation of levels of liver transaminase levels Status: Acute (4) Elevated lipase: Code(s): R74.8 - Abnormal levels of other serum enzymes Status: Acute (5) Hypokalemia: Code(s): E87.6 - Hypokalemia Status: Acute (6) Suicide attempt by drug ingestion: Qualifiers: Encounter type: subsequent encounter Qualified Code(s): T50.902D - Poisoning by unspecified drugs, medicaments and biological substances, intentional self-harm, subsequent encounter Code(s): T50.902A - Poisoning by unspecified drugs, medicaments and biological substances, intentional self-harm, initial encounter Status: Acute (7) RUQ pain: Code(s): R10.11 - Right upper quadrant pain Status: Acute (8) Chronic diarrhea: Code(s): K52.9 - Noninfective gastroenteritis and colitis, unspecified Status: Acute Plan 1) Acute pancreatitis/elevated lipase/recent suicide attempt/ RUQ pain: No prior EGD Hx. Patient S/P CCX 04/02/2024 intraoperative cholangiogram suggested no choledocholithiasis. On 04/03/2024 patient attempt suicide with metformin overdose requiring dialysis. CT on admission showed small mass in the gallbladder fossa, likely inflammation/scarring vs hematoma from recent CCX. Ultrasound showing post surgical change/hematoma in the gallbladder fossa and intra and extrahepatic and pancreatic duct dilation concerning for obstruction. HIDA scan today showed no bile leaks. On admission lipase at 4548 and today normalized at 269. Patient admits to RUQ pain that has been occurring for a few months and has continued post CCX. Her pain is sharp and intermittent in nature and has no correlation with food intake and no known triggers. When pain occurs it normally lasts for 10-15 mins. She had nausea prior to admission but denies any nausea or vomiting since admission. Patient's mother was diagnosed with stomach cancer in her early 60's and maternal aunt also had stomach cancer. * Acute lipase elevati
--- NOTE | 2024-04-07 08:02 | WPDGICN ---
Assessment and Plan Assessment and plan (1) Acute pancreatitis: Qualifiers: Acute pancreatitis complication: unspecified Pancreatitis type: biliary Qualified Code(s): K85.10 - Biliary acute pancreatitis without necrosis or infection Code(s): K85.90 - Acute pancreatitis without necrosis or infection, unspecified Status: Acute (2) Abnormal findings on imaging of biliary tract: Code(s): R93.2 - Abnormal findings on diagnostic imaging of liver and biliary tract Status: Acute (3) Elevated liver transaminase level: Code(s): R74.01 - Elevation of levels of liver transaminase levels Status: Acute (4) Elevated lipase: Code(s): R74.8 - Abnormal levels of other serum enzymes Status: Acute (5) Hypokalemia: Code(s): E87.6 - Hypokalemia Status: Acute (6) Suicide attempt by drug ingestion: Qualifiers: Encounter type: subsequent encounter Qualified Code(s): T50.902D - Poisoning by unspecified drugs, medicaments and biological substances, intentional self-harm, subsequent encounter Code(s): T50.902A - Poisoning by unspecified drugs, medicaments and biological substances, intentional self-harm, initial encounter Status: Acute (7) RUQ pain: Code(s): R10.11 - Right upper quadrant pain Status: Acute (8) Chronic diarrhea: Code(s): K52.9 - Noninfective gastroenteritis and colitis, unspecified Status: Acute Plan 1) Acute pancreatitis/elevated lipase/recent suicide attempt/ RUQ pain: No prior EGD Hx. Patient S/P CCX 04/02/2024 intraoperative cholangiogram suggested no choledocholithiasis. On 04/03/2024 patient attempt suicide with metformin overdose requiring dialysis. CT on admission showed small mass in the gallbladder fossa, likely inflammation/scarring vs hematoma from recent CCX. Ultrasound showing post surgical change/hematoma in the gallbladder fossa and intra and extrahepatic and pancreatic duct dilation concerning for obstruction. HIDA scan today showed no bile leaks. On admission lipase at 4548 and today normalized at 269. Patient admits to RUQ pain that has been occurring for a few months and has continued post CCX. Her pain is sharp and intermittent in nature and has no correlation with food intake and no known triggers. When pain occurs it normally lasts for 10-15 mins. She had nausea prior to admission but denies any nausea or vomiting since admission. Patient's mother was diagnosed with stomach cancer in her early 60's and maternal aunt also had stomach cancer. Acute lipase elevation secondary to recent metformin overdose attempt? vs post CCX pancreatitis Will check MRCP to further evaluate for biliary obstruction, if obstruction noted may require an ERCP Continue antibiotics Surgery is consulted Discussed outpatient EGD if inpatient work up is unremarkable 2) Elevated liver transaminase/hepatic steatosis: Elevated LFT's with hepatocellular pattern, bilirubin and Alk Phos normal. Elevation in transaminase since 04/03 with AST 61-->258 and ALT 36-->88. Ultrasound showed hepatic steatosis and intra and extrahepatic ductal dilation. Record review reveals transaminase elevation since January. Weight loss, cholesterol control, healthy eating, exercise and alcohol avoidance recommended Liver work up ordered 3) Chronic diarrhea: Patient has never had a colonoscopy. Admits to diarrhea x 5-6 years and was previously diagnosed with IBS-D. She is currently controlled on Viberzi 75 mg BID and dicyclomine PRN. On her current regimen she is having daily BMs that are formed and non urgent. Per patient she never had a work up for her diarrhea. Continue current regimen Discussed outpatient colonoscopy to rule out IBD or microscopic colitis 4) Leukocytosis: WBC increased since last admission 28-->36. Continue antibiotics surgery already consulted, pending recommendations 5) Hypokalemia: Mild with potassium at 3.3
[2024-04-07] MEDS: busPIRone HCL 10 MG TABLET PO ×2 (08:55→16:31)
[2024-04-07] MEDS: ENOXAPARIN 40 MG/0.4 ML SYRINGE SUB-Q (08:56)
[2024-04-07 11:14] LABS: Iron 342 ug/dL (37-170)
[2024-04-07 11:24] LABS: Percent Iron Saturation 93 % (20-50)
[2024-04-07 12:07] LABS: HAV RESULT Negative (Negative); Hepatitis B Core IgM Result Negative (Negative)
[2024-04-07 12:18] LABS: Hepatitis C Virus Antibody Negative (Negative)
[2024-04-07 13:23] LABS: Hepatitis B Surface Antigen Negative (Negative)
[2024-04-07 14:00] VITALS: BP 130/83; PULSE 73; RESP 14; TEMP 36.2; O2SAT 100
[2024-04-07 14:19] LABS: Hematocrit 40.8 % (37.0-47.0); Hemoglobin 13.2 g/dL (12.0-15.0); Mean Corpuscular HGB Conc 32.4 g/dl (32-36); Mean Corpuscular Hemoglobin 31.1 pg (26-34); Mean Platelet Volume 9.8 fl (7.4-10.4); Platelet Count Result 263 k/mm3 (150-375); Red Blood Count 4.25 M/mm3 (4.2-5.4); White Blood Count 10.2 K/mm3 (4.5-10.0)
[2024-04-07 14:26] LABS: Alanine Aminotransferase 276 U/L (6-35); Albumin Level 3.6 g/dL (3.5-5.1); Alkaline Phosphatase 108 U/L (38-126); Anion Gap 8 mmol/L (4-12); Aspartate Amino Transferase 241 U/L (14-36); Bilirubin,Total 1.8 mg/dL (0.2-1.3); Blood Urea Nitrogen 3 mg/dL (7-17); Carbon Dioxide 23 mmol/L (22-30); Chloride 108 mmol/L (98-107); Estimated CRCL calculation 93 ml/min; Estimated Glomerular Filt Rate > 60; Glucose 151 mg/dL (65-110); Potassium 3.5 mmol/L (3.4-5.0); Sodium 139 mmol/L (137-145)
--- NOTE | 2024-04-07 15:32 | PM.IMPN ---
Progress Note: A&P Assessment and Plan (1) Leukocytosis: Qualifiers: Leukocytosis type: unspecified Qualified Code(s): D72.829 - Elevated white blood cell count, unspecified Code(s): D72.829 - Elevated white blood cell count, unspecified Status: Acute (2) Pancreatitis: Qualifiers: Acute pancreatitis complication: unspecified Chronicity: acute Pancreatitis type: biliary Qualified Code(s): K85.10 - Biliary acute pancreatitis without necrosis or infection Code(s): K85.90 - Acute pancreatitis without necrosis or infection, unspecified Status: Acute (3) HTN (hypertension): Qualifiers: Hypertension type: primary hypertension Qualified Code(s): I10 - Essential (primary) hypertension Code(s): I10 - Essential (primary) hypertension Status: Chronic (4) HLD (hyperlipidemia): Qualifiers: Hyperlipidemia type: unspecified Qualified Code(s): E78.5 - Hyperlipidemia, unspecified Code(s): E78.5 - Hyperlipidemia, unspecified Status: Acute (5) Major depression: Qualifiers: Active/Remission status: remission status unspecified Major depression recurrence: unspecified whether recurrent Qualified Code(s): F32.9 - Major depressive disorder, single episode, unspecified Code(s): F32.9 - Major depressive disorder, single episode, unspecified Status: Acute (6) Irritable bowel syndrome with diarrhea: Code(s): K58.0 - Irritable bowel syndrome with diarrhea Status: Acute Plan This is a 43-year-old female who presented recently for suicide attempt with intentional overdose on metformin manage conservatively without requiring any dialysis was cleared by crisis team and discharged on 04/03/2024, also had CT abdomen pelvis showing dilated CBD MRCP showing mildly dilated CBD with no choledocholithiasis however had gallbladder distention and diffuse hepatic steatosis. Repeat CTA abdomen and pelvis showed mild gallbladder hydrops and dilated CBD but no obvious obstruction. HIDA scan was normal. Surgery was consulted and she is status post lap cholecystectomy performed on 04/02/2024. She presents back to the ED with abdominal pain. She was hypertensive on arrival to the ED laboratory workup revealed WBC count of 35.6. Hemoglobin was normal. Normal LFTs are elevated with particularly transaminases with AST 258 ALT 88. Lipase level was elevated 4548. Lactic acid is normal CT abdomen pelvis showed small mass in the gallbladder fossa likely inflammation/scarring versus hematoma from recent cholecystectomy. Chronic mild left hydronephrosis and hydroureter was also noted along with mild left kidney atrophy. Nissa is negative for UTI had some RBCs. She is admitted in this setting for further treatment and management. Intraoperative cholangiogram suggested no choledocholithiasis. Also had laparoscopic appendectomy with findings of right upper quadrant appendix during surgery IV Zosyn started NPO and IV fluid , wanting to eat will give trial of clear liquids received tolerated well. HIDA scan with no bile leak. ivf for actue pancreatitis. IV analgesics and IV antiemetics pancultured and follow . Lipase Normalized today Elevated liver enzymes: Right Upper quadrant ultrasound with dilated extrahepatic dilatation obstruction. GI consulted. MRCP per GI History of left internal ureteral stent placement 02/09 for 11 mm stone at left UVJ. hypertension Hyperlipidemia DVT prophylaxis Lovenox Code status full Subjective Date/time seen: 04/07/24 15:32 Interval history: She is feeling better. Abdominal soreness present. No nausea vomiting. Tolerated clear liquid diet. Review of Systems Review of Systems: All systems reviewed & are unremarkable except as noted in HPI and below Exam Narrative: GENERAL: The patient is well developed, not in acute distress HEENT: Nonicteric sclerae, PERRLA, EOMI. Oropharynx clear. Moist muc
[2024-04-07 20:14] VITALS: BP 127/81; PULSE 76; RESP 16; TEMP 36.2; O2SAT 99
[2024-04-07] MEDS: SODIUM CHLORIDE 0.9% IV 1,000 ML 100 ML IV CONT (23:52)
[2024-04-08] MEDS: PIPERACILLN/TAZ 3.375GM/NS50ML 3.375 GM/50 ML BAG IVPB ×3 (00:15→14:21)
[2024-04-08 05:22] VITALS: BP 145/94; PULSE 91; RESP 16; TEMP 36.2; O2SAT 98
[2024-04-08] MEDS: MORPHINE SULFATE (*CRX) 2 MG/ML INJ IV PUSH ×3 (05:56→12:28)
[2024-04-08 06:22] LABS: Basophils Absolute Auto 0.1 K/mm3 (0.0-0.1); Basophils Percent Auto 0.5 % (0.2-1.2); Eosinophils Absolute Auto 0.2 K/mm3 (0-0.3); Eosinophils Percent Auto 1.7 % (0-4.4); Hematocrit 38.2 % (37.0-47.0); Hemoglobin 12.6 g/dL (12.0-15.0); Immature Granulocyte Absolute 0.03 K/mm3 (0.00-0.031); Immature Granulocyte Percent A 0.3 % (0-0.5); Lymphocytes Absolute Auto 2.02 K/mm3 (0.9-3.2); Lymphocytes Percent Auto 18.2 % (18.3-44.2); Mean Corpuscular Hemoglobin 30.6 pg (26-34); Mean Corpuscular Volume 92.7 fl (80-100); Mean Platelet Volume 9.9 fl (7.4-10.4); Monocytes Absolute Auto 0.7 K/mm3 (0.1-0.6); Monocytes Percent Auto 6.1 % (2.6-8.5); Neutrophils Absolute Auto 8.1 K/mm3 (1.3-6.7); Neutrophils Percent Auto 73.2 % (45.5-73.1); Platelet Count Result 235 k/mm3 (150-375); Red Blood Count 4.12 M/mm3 (4.2-5.4); Red Cell Distribution Width 13.2 % (11.5-14.5); White Blood Count 11.1 K/mm3 (4.5-10.0)
[2024-04-08 06:32] LABS: Alanine Aminotransferase 193 U/L (6-35); Albumin Level 3.6 g/dL (3.5-5.1); Alkaline Phosphatase 97 U/L (38-126); Anion Gap 6 mmol/L (4-12); Aspartate Amino Transferase 87 U/L (14-36); Bilirubin,Total 0.7 mg/dL (0.2-1.3); Blood Urea Nitrogen 2 mg/dL (7-17); Calcium 8.7 mg/dL (8.4-10.2); Carbon Dioxide 25 mmol/L (22-30); Chloride 107 mmol/L (98-107); Estimated CRCL calculation 110 ml/min; Estimated Glomerular Filt Rate > 60; Glucose 131 mg/dL (65-110); Magnesium 1.7 mg/dL (1.6-2.3); Potassium 3.3 mmol/L (3.4-5.0); Sodium 138 mmol/L (137-145)
[2024-04-08] MEDS: busPIRone HCL 10 MG TABLET PO (09:44)
[2024-04-08] MEDS: ENOXAPARIN 40 MG/0.4 ML SYRINGE SUB-Q (09:44)
[2024-04-08] MEDS: PANTOPRAZOLE SODIUM IV 40 MG VIAL IV PUSH (09:45)
[2024-04-08] MEDS: POTASSIUM CHLORIDE 20 MEQ ER TABLET 40 MEQ PO (09:46)
--- NOTE | 2024-04-08 11:44 | PM.CNGS ---
Assessment and Plan Assessment and plan (1) RUQ pain: Code(s): R10.11 - Right upper quadrant pain Status: Acute Assessment and Plan: Patient returns with epigastric and right upper quadrant abdominal pain following a laparoscopic cholecystectomy with IOC and laparoscopic appendectomy. Her IOC was negative last week. She does report this is different than her preoperative pain. Imaging suggests postsurgical changes versus hematoma in the gallbladder fossa. HIDA scan negative for a bile leak. No evidence of a complication related to her recent surgery in her workup. There is also findings of intrahepatic, extrahepatic and pancreatic duct dilation on the right upper quadrant ultrasound that is being worked up further with an MRCP. Some of her pain could be postsurgical pain that should continue to improve with time. No indication for any surgical intervention at this time. (2) History of cholecystectomy: Code(s): Z90.49 - Acquired absence of other specified parts of digestive tract Status: Resolved Assessment and Plan: Appears to be healing well postop day 6 following a laparoscopic cholecystectomy with IOC and laparoscopic appendectomy. Incisions healing well with no signs of infection. HIDA scan negative for bile leak. (3) Acute pancreatitis: Qualifiers: Acute pancreatitis complication: unspecified Pancreatitis type: biliary Qualified Code(s): K85.10 - Biliary acute pancreatitis without necrosis or infection Code(s): K85.90 - Acute pancreatitis without necrosis or infection, unspecified Status: Acute Assessment and Plan: Lipase 4500 on admission, but normalized yesterday. Continue supportive management. Right upper quadrant ultrasound mentions intrahepatic, extrahepatic and pancreatic duct dilation concerning for obstruction. MRCP ordered. (4) Abnormal findings on imaging of biliary tract: Code(s): R93.2 - Abnormal findings on diagnostic imaging of liver and biliary tract Status: Acute Assessment and Plan: Right upper quadrant ultrasound mentions intrahepatic, extrahepatic and pancreatic duct dilation concerning for obstruction. MRCP ordered. Plan I have discussed the patient's case and plan of care with Dr. Stark. History of Present Illness Consult details Consult date: 04/08/24 Reason for consult: other (Possible postop complication) Requesting physician: Pranav Golden MD Narrative: This is a 43-year-old woman who is status post laparoscopic cholecystectomy with intraoperative cholangiogram, laparoscopic appendectomy by Dr. Dos Santos on 04/02/2024. Intraoperative cholangiogram was negative. She was discharged on 04/03/2024 and return to the ER 2 days ago with epigastric abdominal pain. She reports the pain was different from the preoperative pain she was experiencing. She was doing well postoperatively up until she woke up 2 days ago with epigastric pain. No complaints with her incisions. Reports nausea, but no vomiting. Workup in the ER showed white blood cell count 74698, which was 28,000 on discharge. Repeat labs yesterday showed a white blood cell count down to 10,000 yesterday. Labs also showed total bilirubin 0.8, AST 258, ALT 8, alk-phos 81, and lipase 4500. CT scan of the abdomen and pelvis showed a small mass in the gallbladder fossa, likely inflammation/scarring versus hematoma from recent cholecystectomy. Also seen is chronic mild left hydronephrosis and hydroureter with mild left kidney atrophy. Right upper quadrant ultrasound showed an echogenic liver, postsurgical changes/hematoma in the gallbladder fossa, and intrahepatic, extrahepatic and pancreatic duct dilation concerning for obstruction. She was admitted to the hospitalist service. Our service was consulted for possible postoperative complication. HIDA scan was ordered and negative for bile leak. AST and ALT trending down. Lipase normalized. MRCP has been ordered. Patient see
--- NOTE | 2024-04-08 13:34 | PM.IMPN ---
Progress Note: A&P Assessment and Plan (1) Leukocytosis: Qualifiers: Leukocytosis type: unspecified Qualified Code(s): D72.829 - Elevated white blood cell count, unspecified Code(s): D72.829 - Elevated white blood cell count, unspecified Status: Acute (2) Pancreatitis: Qualifiers: Acute pancreatitis complication: unspecified Chronicity: acute Pancreatitis type: biliary Qualified Code(s): K85.10 - Biliary acute pancreatitis without necrosis or infection Code(s): K85.90 - Acute pancreatitis without necrosis or infection, unspecified Status: Acute (3) HTN (hypertension): Qualifiers: Hypertension type: primary hypertension Qualified Code(s): I10 - Essential (primary) hypertension Code(s): I10 - Essential (primary) hypertension Status: Chronic (4) HLD (hyperlipidemia): Qualifiers: Hyperlipidemia type: unspecified Qualified Code(s): E78.5 - Hyperlipidemia, unspecified Code(s): E78.5 - Hyperlipidemia, unspecified Status: Acute (5) Major depression: Qualifiers: Active/Remission status: remission status unspecified Major depression recurrence: unspecified whether recurrent Qualified Code(s): F32.9 - Major depressive disorder, single episode, unspecified Code(s): F32.9 - Major depressive disorder, single episode, unspecified Status: Acute (6) Irritable bowel syndrome with diarrhea: Code(s): K58.0 - Irritable bowel syndrome with diarrhea Status: Acute Plan This is a 43-year-old female who presented recently for suicide attempt with intentional overdose on metformin manage conservatively without requiring any dialysis was cleared by crisis team and discharged on 04/03/2024, also had CT abdomen pelvis showing dilated CBD MRCP showing mildly dilated CBD with no choledocholithiasis however had gallbladder distention and diffuse hepatic steatosis. Repeat CTA abdomen and pelvis showed mild gallbladder hydrops and dilated CBD but no obvious obstruction. HIDA scan was normal. Surgery was consulted and she is status post lap cholecystectomy performed on 04/02/2024. She presents back to the ED with abdominal pain. She was hypertensive on arrival to the ED laboratory workup revealed WBC count of 35.6. Hemoglobin was normal. Normal LFTs are elevated with particularly transaminases with AST 258 ALT 88. Lipase level was elevated 4548. Lactic acid is normal CT abdomen pelvis showed small mass in the gallbladder fossa likely inflammation/scarring versus hematoma from recent cholecystectomy. Chronic mild left hydronephrosis and hydroureter was also noted along with mild left kidney atrophy. Nissa is negative for UTI had some RBCs. She is admitted in this setting for further treatment and management. Intraoperative cholangiogram suggested no choledocholithiasis. Also had laparoscopic appendectomy with findings of right upper quadrant appendix during surgery IV Zosyn started NPO and IV fluid , wanting to eat will give trial of clear liquids received tolerated well. HIDA scan with no bile leak. ivf for actue pancreatitis. IV analgesics and IV antiemetics pancultured and follow . Lipase Normalized today Elevated liver enzymes: Right Upper quadrant ultrasound with dilated extrahepatic dilatation obstruction. GI consulted. MRCP per GI which is ordered. Await MRCP. History of left internal ureteral stent placement 02/09 for 11 mm stone at left UVJ. hypertension Hyperlipidemia DVT prophylaxis Lovenox Code status full Subjective Date/time seen: 04/08/24 13:34 Interval history: Feels better. Abdomen is sore but not bad. No nausea vomiting. Tolerating clear. Review of Systems Review of Systems: All systems reviewed & are unremarkable except as noted in HPI and below Exam Narrative: GENERAL: The patient is well developed, not in acute distress HEENT: Nonicteric sclerae, PERRLA, EOMI. Oropharynx clear.
[2024-04-08 14:00] VITALS: BP 149/87; PULSE 69; RESP 14; TEMP 36.2; O2SAT 100
[2024-04-08] MEDS: DICYCLOMINE HCL 10 MG CAPSULE 20 MG PO (14:20)
[2024-04-08 15:04] LABS: Alpha-1-Antitrypsin, QN 172 mg/dL (83-199); Ceruloplasmin 23 mg/dL (14-48)
--- NOTE | 2024-04-08 15:46 | WPDGIPROGNO ---
Progress Note: A&P Assessment and Plan (1) RUQ pain: Code(s): R10.11 - Right upper quadrant pain Status: Acute Assessment and Plan: no choledocholithiasis, noted localized inflammation from recent cholecystectomy pain is better and liver enzymes coming down ok to advance diet, she would like to go home today will sign off, no need of endoscopic evaluation (2) History of cholecystectomy: Code(s): Z90.49 - Acquired absence of other specified parts of digestive tract Status: Resolved (3) Elevated liver transaminase level: Code(s): R74.01 - Elevation of levels of liver transaminase levels Status: Acute Assessment and Plan: probably from recent lap kathleen/inflammation trending down (4) Abnormal findings on imaging of biliary tract: Code(s): R93.2 - Abnormal findings on diagnostic imaging of liver and biliary tract Status: Acute Subjective Date/time seen: 04/08/24 15:46 Interval history: pain has improved, mrcp reviewed and no choledocholithiasis she is feeling better and would like to go home Review of Systems Review of Systems: All systems reviewed & are unremarkable except as noted in HPI and below Exam Const: General: comfortable and no acute distress Nutritional Appearance: average body habitus Orientation/consciousness: patient oriented x3 HENMT: Head: normocephalic and atraumatic Ears: hearing grossly normal bilaterally Mouth: Yes moist mucous membranes Eyes: General: appearance normal, both eyes and all related structures Neck: Neck: normal visual inspection Resp: Effort & Inspection: no respiratory distress Auscultation: clear to auscultation bilaterally Cardio: Rate: regular rate Rhythm: regular rhythm GI: Inspection: non-distended and incision (Healing well with glue intact, no erythema or drainage) GI Palp: Yes Soft to palpation, Yes Tenderness to palpation present (GI) (Mild tenderness in the right upper quadrant), No Guarding due to palpation present (GI) and No Rebound tenderness present Auscultation: normal bowel sounds Skin: General skin exam: normal color Neuro: General: moves all extremities and no focal motor deficits Speech: normal speech Motor exam (neuro): 5/5 motor strength present throughout Extrem: General: normal to inspection and no edema Psych: Mental Status: mental status grossly normal Attitude: cooperative Insight: Good insight present (Psych) Judgement: Good judgement present (Psych) Objective Data Vital Signs Vital Signs: Vital Signs - 24 hr 04/07/24 20:14 04/07/24 20:00 04/08/24 05:22 Temperature 97.2 F L 97.1 F L Pulse Rate 76 91 Respiratory Rate 16 16 Blood Pressure 127/81 145/94 H Pulse Oximetry 99 98 Oxygen Delivery Room Air 04/08/24 08:00 04/08/24 14:00 Temperature 97.2 F L Pulse Rate 69 Respiratory Rate 14 Blood Pressure 149/87 H Pulse Oximetry 100 Oxygen Delivery Room Air Intake/Output Intake/Output: Intake & Output 04/05/24 04/06/24 04/07/24 04/08/24 23:59 23:59 23:59 23:59 Intake Total 2530 4487 468 Balance 2530 4487 468 Meds/Results Medications: Active Medications Generic Name Dose Route Start Last Admin Trade Name Freq PRN Reason Stop Dose Admin Buspirone HCl 10 mg 04/06/24 17:00 04/08/24 09:44 Buspirone Hcl 10 Mg Tablet PO 10 mg BID MAYO Administration Dicyclomine HCl 20 mg 04/08/24 13:00 04/08/24 14:20 Dicyclomine Hcl 10 Mg Capsule PO 20 mg TID MAYO Administration Enoxaparin Sodium 40 mg 04/07/24 09:00 04/08/24 09:44 Enoxaparin 40 Mg/0.4 Ml Syringe SUB-Q 40 mg DAILY MAYO Administration Piperacillin/Tazobactam/Dextrose 3.375 gm in 50 mls @ 100 mls/hr 04/06/24 18:00 04/08/24 14:21 Zosyn 3.375 Gm/Ns 50 Ml IVPB 100 mls/hr Q6HR MAYO Administration Sodium Chloride 1,000 mls @ 100 mls/hr 04/06/24 11:45 04/08/24 14:22 Normal Saline Iv IV CONT Not Given .Q10H MAYO Loratadine 10 mg
--- NOTE | 2024-04-08 15:56 | PM.DS ---
DS: Admitting Diagnosis Discharge Date 04/08/2024 Admitting Diagnosis Abdominal pain DS: Discharge Diagnosis Discharge Diagnosis (1) Leukocytosis: Qualifiers: Leukocytosis type: unspecified Qualified Code(s): D72.829 - Elevated white blood cell count, unspecified Code(s): D72.829 - Elevated white blood cell count, unspecified Status: Acute (2) Pancreatitis: Qualifiers: Acute pancreatitis complication: unspecified Chronicity: acute Pancreatitis type: biliary Qualified Code(s): K85.10 - Biliary acute pancreatitis without necrosis or infection Code(s): K85.90 - Acute pancreatitis without necrosis or infection, unspecified Status: Acute (3) HTN (hypertension): Qualifiers: Hypertension type: primary hypertension Qualified Code(s): I10 - Essential (primary) hypertension Code(s): I10 - Essential (primary) hypertension Status: Chronic (4) HLD (hyperlipidemia): Qualifiers: Hyperlipidemia type: unspecified Qualified Code(s): E78.5 - Hyperlipidemia, unspecified Code(s): E78.5 - Hyperlipidemia, unspecified Status: Acute (5) Major depression: Qualifiers: Active/Remission status: remission status unspecified Major depression recurrence: unspecified whether recurrent Qualified Code(s): F32.9 - Major depressive disorder, single episode, unspecified Code(s): F32.9 - Major depressive disorder, single episode, unspecified Status: Acute (6) Irritable bowel syndrome with diarrhea: Code(s): K58.0 - Irritable bowel syndrome with diarrhea Status: Acute DS: Summary Hospital Course Hospital Course: This is a 43-year-old female who presented recently for suicide attempt with intentional overdose on metformin manage conservatively without requiring any dialysis was cleared by crisis team and discharged on 04/03/2024, also had CT abdomen pelvis showing dilated CBD MRCP showing mildly dilated CBD with no choledocholithiasis however had gallbladder distention and diffuse hepatic steatosis.? Repeat CTA abdomen and pelvis showed mild gallbladder hydrops and dilated CBD but no obvious obstruction.? HIDA scan was normal.? Surgery was consulted and she is status post lap cholecystectomy performed on 04/02/2024.? She presents back to the ED with abdominal pain.? She was hypertensive on arrival to the ED laboratory workup revealed WBC count of 35.6.? Hemoglobin was normal.? Normal LFTs are elevated with particularly transaminases with AST 258 ALT 88.? Lipase level was elevated 4548.? Lactic acid is normal CT abdomen pelvis showed small mass in the gallbladder fossa likely inflammation/scarring versus hematoma from recent cholecystectomy.? Chronic mild left hydronephrosis and hydroureter was also noted along with mild left kidney atrophy.? Nissa is negative for UTI had some RBCs.? She is admitted in this setting for further treatment and management.? Intraoperative cholangiogram suggested no choledocholithiasis.? Also had laparoscopic appendectomy with findings of right upper quadrant appendix during surgery IV Zosyn started NPO and IV fluid , wanting to eat will give trial of clear liquids received tolerated well.? HIDA scan with no bile leak. ivf for actue pancreatitis.? IV analgesics and IV antiemetics pancultured and follow .? Lipase ? Normalized promptly the next day Elevated liver enzymes:? Right? Upper quadrant ultrasound with dilated extrahepatic dilatation obstruction.? GI consulted. MRCP? per GI which is ordered.? MRCP came back with no choledocholithiasis. There is 2.9 x 1.5 cm mass in the gallbladder foci consistent with inflammation/scarring versus hematoma from recent cholecystectomy. Leukocytosis promptly resolved. No further indications of antibiotics. Cultures were negative History of left internal ureteral stent placement 02/09 for 11 mm stone at left UVJ. hypertension Hyperlipidemia DVT prophylaxis Lovenox Code status fu
--- NOTE | 2024-04-08 17:56 | PC.NURSE ---
Pt ate regular food for dinner. Tolerated well without complaints. Will discharge as ordered.
[2024-04-09 11:13] LABS: Alpha Fetoprotein Tumor Marker 1.8 ng/mL
[2024-04-09 13:43] LABS: Actin Antibody (IgG) <20 U (<20)
[2024-04-18 00:48] LABS: ALT 232 U/L (6-29); Alpha-2-Macroglobulin 287 mg/dL (106-279); Apolipoprotein A1 96 mg/dL (101-198); Fibrosis Score 0.76; Fibrosis Stage F4; GGT 289 U/L (3-55); Haptoglobin 179 mg/dL (43-212); Necroinflammat Act Grade A3; Total Bilirubin 1.4 mg/dL (0.2-1.2)
[2024-04-18 10:07] LABS: Mitochondrial (M2) Ab (IgG) <20.0 U
== END 2024-04-08 18:38 | disposition home or self-care (01) | DRG 439 ==
LOC: ANHED 10:15 → ANH3MEDSUR 12:31
PROVIDERS: Nurse Practitioner Family; Admitting Provider Internal Medicine; Emergency Provider Emergency Medicine; Visit Provider Internal Medicine
DX: K85.80 Other acute pancreatitis without necrosis or infection (principal); N13.30 Unspecified hydronephrosis; N13.4 Hydroureter; J45.909 Unspecified asthma, uncomplicated; I10 Essential (primary) hypertension; E78.5 Hyperlipidemia, unspecified; E28.2 Polycystic ovarian syndrome; E87.6 Hypokalemia; K58.0 Irritable bowel syndrome with diarrhea; R74.01 Elevation of levels of liver transaminase levels; F32.9 Major depressive disorder, single episode, unspecified; Z98.1 Arthrodesis status; Z90.49 Acquired absence of other specified parts of digestive tract
CPT/HCPCS: 36415; 74177; 74183; 76376; 76705; 78226; 80053; 80074; 81001; 81025; 81596; 82103; 82105; 82390; 82728; 83520; 83540; 83550; 83605; 83690; 83735; 85025; 85027; 86038; 86364; 87040; 96361; 96365; 96366; 96372; 96375; 96376; 99285; A9270; A9537; A9577; C9113; G0378; J1650; J2270; J2405; J2543; J7030; Q9967

== ENCOUNTER 2024-07-22 21:24 | Emergency (ER) | payer BC, SELFPAY ==
--- NOTE | ~2024-07-22 | CT_ITS ---
EXAMINATION: CT abdomen pelvis wo con DATE: 07/22/2024 23:43 INDICATION: Kidney stone. TECHNIQUE: Computed tomography (CT) of the abdomen and pelvis was performed without intravenous contr ast. Automated exposure control and iterative reconstruction technique were employed. The dose-length product was 208.36 mGy-cm. COMPARISON: CT abdomen and pelvis 04/06/2024 FINDINGS: The visualized portions of the lung bases are clear without pneumonia or pleural effusion. The heart size is normal. No pericardial effusion. The liver is normal. There are changes of cholecys tectomy. The spleen, pancreas, and adrenal glands are normal. There is a 2 mm stone in right kidney. There is cortical thinning of left kidney. There is an 11 mm stone in left kidney. There are no dilat ed loops of bowel. The appendix is not visualized. There are no pathologically enlarged lymph nodes. There is no ascites. There is mild lumbar spondylosis. IMPRESSION: 1. Bilateral nonobstructing kidney stones. Reviewed, dictated and finalized at location A.
[2024-07-22 21:38] VITALS: BP 141/73; PULSE 86; RESP 16; TEMP 36.8; O2SAT 99
[2024-07-22 21:53] LABS: BEDSIDEPREGUCG Negative
[2024-07-22 22:08] LABS: Add Urine Microscopic? YES; Appearance Urine Clear (Clear); Bacteria Urine None Seen /hpf; Bilirubin Urine 1+ (Negative); Blood Urine Negative (Negative); Color Urine Dark Yellow (Yellow); Glucose Urine UA Trace mg/dL (Negative); Ketones Urine Negative (Negative); Leukocyte Esterase Ur Negative LEU/UL (Negative); Need Manual Microscopic Reviewed; Nitrate Urine Negative (Negative); Non Pathogenic Casts 0-2; Protein Urine Trace mg/dL (Negative); Specific Grav Ur 1.036 (1.001-1.035); Squamous Epithelial Cell Urine Occasional /hpf (Few); WBC Urine 0-5 /hpf (0-3)
[2024-07-22 22:45] VITALS: PULSE 86; RESP 12; O2SAT 99
[2024-07-22 23:09] LABS: Basophils Absolute Auto 0.1 K/mm3 (0.0-0.1); Basophils Percent Auto 0.4 % (0.2-1.2); Eosinophils Absolute Auto 0.2 K/mm3 (0-0.3); Eosinophils Percent Auto 1.1 % (0-4.4); Hematocrit 45.3 % (37.0-47.0); Hemoglobin 15.6 g/dL (12.0-15.0); Immature Granulocyte Absolute 0.08 K/mm3 (0.00-0.031); Immature Granulocyte Percent A 0.4 % (0-0.5); Lymphocytes Absolute Auto 4.74 K/mm3 (0.9-3.2); Lymphocytes Percent Auto 25.3 % (18.3-44.2); Mean Corpuscular HGB Conc 34.4 g/dl (32-36); Mean Corpuscular Hemoglobin 31.5 pg (26-34); Mean Corpuscular Volume 91.3 fl (80-100); Mean Platelet Volume 9.3 fl (7.4-10.4); Monocytes Absolute Auto 1.3 K/mm3 (0.1-0.6); Neutrophils Absolute Auto 12.3 K/mm3 (1.3-6.7); Neutrophils Percent Auto 65.8 % (45.5-73.1); Platelet Count Result 294 k/mm3 (150-375); Red Blood Count 4.96 M/mm3 (4.2-5.4); Red Cell Distribution Width 14.3 % (11.5-14.5); White Blood Count 18.8 K/mm3 (4.5-10.0)
[2024-07-22 23:15] VITALS: BP 148/107; PULSE 90; RESP 14; O2SAT 99
[2024-07-22 23:30] VITALS: PULSE 90; RESP 18; O2SAT 99
[2024-07-22 23:31] VITALS: BP 143/99; PULSE 95; RESP 12; O2SAT 99
[2024-07-22] MEDS: ONDANSETRON INJ 4 MG/2 ML VIAL IV PUSH (23:31)
[2024-07-22] MEDS: HYDROmorphone HCL INJ (*CRX) 1 MG/ML SYR 0.5 MG IV PUSH (23:32)
[2024-07-22 23:35] LABS: Alanine Aminotransferase 32 U/L (6-35); Albumin Level 4.3 g/dL (3.5-5.1); Alkaline Phosphatase 71 U/L (38-126); Anion Gap 10 mmol/L (4-12); Aspartate Amino Transferase 32 U/L (14-36); Bilirubin,Total 0.2 mg/dL (0.2-1.3); Blood Urea Nitrogen 9 mg/dL (7-17); Calcium 9.1 mg/dL (8.4-10.2); Carbon Dioxide 28 mmol/L (22-30); Chloride 102 mmol/L (98-107); Estimated CRCL calculation 72 ml/min; Estimated Glomerular Filt Rate > 60; Glucose 91 mg/dL (65-110); Potassium 3.6 mmol/L (3.4-5.0); Sodium 140 mmol/L (137-145)
[2024-07-22 23:49] VITALS: PULSE 82; RESP 15; O2SAT 98
[2024-07-23] VITALS (13 sets, daily range): BP systolic 98–153; BP diastolic 62–91; PULSE 71–84; RESP 12–21; TEMP 36.5; O2SAT 97–100
--- NOTE | 2024-07-23 01:58 | ED.GENADULT ---
HPI - General Adult General Chief complaint: Abdominal Pain Stated complaint: flank pain Time Seen by Provider: 07/22/24 23:23 History of Present Illness HPI narrative: This is a 43-year-old female presenting ED with chief complaint of left lower quadrant abdominal pain. Patient says the pain started 4 days ago. Stabbing pain in the left side that radiates to her back. It is 10 out 10 intensity and constant. She has had this pain many times in when she had kidney stones. No exacerbating alleviating factors. Patient denies fevers chills nausea vomiting or diarrhea. Last BM was earlier today and was normal. No fevers chills chest pain or difficulty breathing. Related Data Home Medications Medication Instructions Recorded Confirmed buspirone 10 mg tablet 10 mg PO BID 02/14/24 04/23/24 dicyclomine 20 mg tablet 20 mg PO TID 02/14/24 04/23/24 eluxadoline 100 mg tablet (Viberzi) 100 mg PO BID 02/14/24 04/23/24 fluticasone 250 mcg-salmeterol 50 1 ea inhalation BID 02/14/24 04/23/24 mcg/dose blistr powdr for inhalation lisinopril 10 mg tablet 10 mg PO DAILY 02/14/24 04/23/24 metformin 500 mg tablet,extended 500 mg PO BID 02/14/24 04/23/24 release 24 hr rosuvastatin 10 mg tablet 10 mg PO HS 02/14/24 04/23/24 levocetirizine 5 mg tablet (Xyzal) 5 mg PO HS PRN Congestion 03/31/24 04/23/24 Allergies Allergy/AdvReac Type Severity Reaction Status Date / Time No Known Allergies Allergy Verified 04/21/24 09:16 [facility] Past Medical History Medical History Asthma Chronic pain r/t sciatica and L4/L5/L6 protruding HLD (hyperlipidemia) HTN (hypertension) Irritable bowel syndrome with diarrhea Irritable bowel syndrome with diarrhea Lactic acid acidosis PCOS (polycystic ovarian syndrome) Surgical History Surgical History History of appendectomy History of cervical spinal surgery (03/08/23) anterior cervical discectomy and fusion History of cholecystectomy Family History Family History Father Hypertension Patient's father is in good health Cerebrovascular accident Family history of heart disease in male family member before age 55 Mother Patient's mother is in good health Family history of diabetes mellitus in first degree relative Sibling Family history of diabetes mellitus in first degree relative Social History Social History Social History: Lives at home with her father and , Chinmay Moy is her emergency contact ([phone]). Smoking packs per day: 1 Smoking cigarettes per day: 20.0 Years smoked: 29 Smoking pack-years: 29.00 Smoking status: Heavy tobacco smoker Second hand tobacco smoke exposure: Yes Alcohol intake: never Alcohol use details: rarely drinks, a couple time a month Substance use: current Substance use type: marijuana Last use: 03/29 Do You Feel Safe in your Home?: Yes Lack of Transportation: No Lack of Food: Never True Current Housing: I Have Housing Concerned About Future Housing: No Difficulty Paying Gas/Electric Bills: No Difficulty Paying for Meds: No Currently Unemployed: No Education: Grade School Difficulty w/ Childcare or Family Care: No Living arrangements: with family Additional living arrangements comments: Lives with father and Occupation/Education: unemployed Additional occupation/education comments: 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 Head: atraumatic. EYES: EOMI, NOSE: Atraumatic NECK: Trachea midline RESPIRATORY: No increased rate of breathing clear to auscultation CARDIOVASCULAR: RRR, ABDOMINAL: Tenderness in left lower quadrant, left CVA tenderness
[2024-07-23] MEDS: DICYCLOMINE HCL INJ 20 MG/2 ML VIAL IM (02:12)
== END 2024-07-23 02:26 | disposition home or self-care (01) ==
PROVIDERS: Emergency Provider Emergency Medicine
DX: R10.32 Left lower quadrant pain (principal); I10 Essential (primary) hypertension; J45.909 Unspecified asthma, uncomplicated; E78.5 Hyperlipidemia, unspecified; K58.0 Irritable bowel syndrome with diarrhea; E28.2 Polycystic ovarian syndrome; F17.210 Nicotine dependence, cigarettes, uncomplicated; Z90.49 Acquired absence of other specified parts of digestive tract; Z79.84 Long term (current) use of oral hypoglycemic drugs; Z79.899 Other long term (current) drug therapy
CPT/HCPCS: 36415; 74176; 80053; 81001; 81025; 85025; 96372; 96374; 96375; 99284; J0500; J1170; J2405

== ENCOUNTER 2024-07-24 17:12 | Emergency (ER) | payer BC, SELFPAY ==
--- NOTE | ~2024-07-24 | XR_ITS ---
EXAMINATION: XR hip LT 2V w AP pelvis DATE: 07/24/2024 22:15 INDICATION: Left hip pain. Fall. TECHNIQUE: An anteroposterior view of the pelvis and 2 views of left hip were obtained. COMPARISON: Pelvis radiograph 07/02/2015 FINDINGS: Alignment is normal. No fracture. There is mild osteoarthritis of the hips. There is at [address] st mild lumbar spondylosis. IMPRESSION: 1. Mild osteoarthritis of the hips. Reviewed, dictated and finalized at location A.
--- NOTE | ~2024-07-24 | XR_ITS ---
EXAMINATION: XR knee LT 3V DATE: 07/24/2024 22:15 INDICATION: Left knee injury. TECHNIQUE: 3 views of left knee were obtained. COMPARISON: None. FINDINGS: Alignment is normal. No fracture. There is mild tricompartmental osteoarthritis. No knee carl int effusion. IMPRESSION: 1. Mild left knee osteoarthritis. Reviewed, dictated and finalized at location A.
--- NOTE | ~2024-07-24 | CT_ITS ---
EXAMINATION: CT thoracic lumbar wo con DATE: 07/24/2024 21:20 INDICATION: Midline back tenderness. Fall. TECHNIQUE: Computed tomography (CT) of the thoracic and lumbar spine was performed without intravenou s contrast. Automated exposure control and iterative reconstruction technique were employed. The dose -length product was 958.89 mGy-cm. COMPARISON: None FINDINGS: CT THORACIC SPINE: Alignment is normal. There are changes of anterior fusion procedure at C6-C7 with anterior plate and screws. Vertebral body heights are normal. Intervertebral disc heights are normal. There are osteophytes at most levels. There is multilevel mild facet joint osteoarthritis. No neural foraminal stenosis. There is mild central canal stenosis at T2-T3 and T3-T4. CT LUMBAR SPINE: There is a 10 mm stone in left kidney. Bone alignment is normal. Vertebral body heig hts are normal. Intervertebral disc heights are normal. The following disc levels are specifically di scussed: L1-L2: The disc does not extend beyond the endplate margin. There is mild bilateral facet joint osteo arthritis. There is no neural foraminal stenosis. There is no central canal stenosis. L2-L3: The disc does not extend beyond the endplate margin. There is mild bilateral facet joint osteo arthritis. There is no neural foraminal stenosis. There is no central canal stenosis. L3-L4: The disc does not extend beyond the endplate margin. There is mild bilateral facet joint osteo arthritis. There is no neural foraminal stenosis. There is no central canal stenosis. L4-L5: The disc is bulging. There is mild bilateral facet joint osteoarthritis. There is mild bilater al neural foraminal stenosis. There is mild central canal stenosis. L5-S1: The disc is bulging. There is severe bilateral facet joint osteoarthritis. There is mild bilat eral neural foraminal stenosis. There is mild central canal stenosis. IMPRESSION: 1. No fracture. 2. Mild thoracic and lumbar spondylosis. Reviewed, dictated and finalized at location A.
[2024-07-24 17:15] VITALS: BP 152/79; PULSE 86; RESP 16; TEMP 36.7; O2SAT 100
--- NOTE | 2024-07-24 18:11 | ED.FALL ---
HPI - Fall General Chief Complaint: Fall <Maximus Sheehan PA-C - Last Filed: 07/24/24 18:13> Stated Complaint: fall <Maximus Sheehan PA-C - Last Filed: 07/24/24 18:13> Time Seen by Provider: 07/24/24 21:45 <Maximus Sheehan PA-C - Last Filed: 07/24/24 18:13> Focused HPI: This is a 43-year-old female who presents to the ED for chief complaint of a fall. States that she tripped while going up stairs and fell onto her left side. Reports a lot of degenerative disc disease and is on chronic opioid pain medications. She has run out of her pain meds and was unable to get in with her pain management doctor today. Endorses low back pain, midback pain and no other signs of injury. Denies numbness or weakness. Denies bowel or bladder dysfunction. GENERAL: Well-appearing, well-nourished, and in no acute distress. HEAD: Normocephalic, atraumatic. CHEST: Clear to auscultation. No respiratory distress. HEART: Regular rate and rhythm. NEURO: Alert and oriented x3. Patient screened in triage and initial orders placed. Additional care and disposition to be based upon diagnostic testing and treatment. <Maximus Sheehan PA-C - Last Filed: 07/24/24 18:13> Source: patient <Maximus Sheehan PA-C - Last Filed: 07/24/24 18:13> Mode of arrival: ambulatory <Maximus Sheehan PA-C - Last Filed: 07/24/24 18:13> Limitations: no limitations <Maximus Sheehan PA-C - Last Filed: 07/24/24 18:13> History of Present Illness HPI Narrative: [age] year old female presenting to the emergency department for evaluation for left hip pain and back pain. Patient does have history of chronic pain and does follow-up with a pain specialist. Patient denies striking head denies loss consciousness. Patient states the fall was caused because her left knee gave out. <Rene Culver MD - Last Filed: 07/25/24 04:44> Related Data Home Medications: Home Medications Medication Instructions Recorded Confirmed buspirone 10 mg tablet 10 mg PO BID 02/14/24 04/23/24 dicyclomine 20 mg tablet 20 mg PO TID 02/14/24 04/23/24 eluxadoline 100 mg tablet (Viberzi) 100 mg PO BID 02/14/24 04/23/24 fluticasone 250 mcg-salmeterol 50 1 ea inhalation BID 02/14/24 04/23/24 mcg/dose blistr powdr for inhalation lisinopril 10 mg tablet 10 mg PO DAILY 02/14/24 04/23/24 metformin 500 mg tablet,extended 500 mg PO BID 02/14/24 04/23/24 release 24 hr rosuvastatin 10 mg tablet 10 mg PO HS 02/14/24 04/23/24 levocetirizine 5 mg tablet (Xyzal) 5 mg PO HS PRN Congestion 03/31/24 04/23/24 <Maximus Sheehan PA-C - Last Filed: 07/24/24 18:13> Allergies/Adverse Reactions: Allergies Allergy/AdvReac Type Severity Reaction Status Date / Time No Known Allergies Allergy Verified 04/21/24 09:16 <Maximus Sheehan PA-C - Last Filed: 07/24/24 18:13> Review of Systems Review of Systems: All systems reviewed & are unremarkable except as noted in HPI and below <Rene Culver MD - Last Filed: 07/25/24 04:44> [facility] Past Medical History Medical History: Medical History Asthma Chronic pain r/t sciatica and L4/L5/L6 protruding HLD (hyperlipidemia) HTN (hypertension) Irritable bowel syndrome with diarrhea Irritable bowel syndrome with diarrhea Lactic acid acidosis PCOS (polycystic ovarian syndrome) <Maximus Sheehan PA-C - Last Filed: 07/24/24 18:13> Surgical History Surgical History: Surgical History History of appendectomy History of cervical spinal surgery (03/08/23) anterior cervical discectomy and fusion History of cholecystectomy <Maxiums Sheehan PA-C - Last Filed: 07/24/24 18:13> Family History Family History: Family History Father Hypertension Patient's father is in good health Cerebrovascular accident Family history of heart disease in male famil
[2024-07-24] MEDS: HYDROcodone/acetaminophen (*CRX) 5-325 MG TABLET 1 TAB PO (22:18)
--- NOTE | 2024-07-24 22:20 | PC.NURSE ---
Flexeril not administered d/t pt refusal after pt educated that a side effect is drowsiness. If d/c, pt states she will be driving home tonight and has not had flexeril before.
[2024-07-24 22:37] VITALS: BP 98/70; PULSE 67; RESP 16; O2SAT 100
== END 2024-07-24 22:45 | disposition home or self-care (01) ==
PROVIDERS: Emergency Provider Emergency Medicine
DX: M25.552 Pain in left hip (principal); M25.562 Pain in left knee; W10.9XXA Fall (on) (from) unspecified stairs and steps, initial encounter; J45.909 Unspecified asthma, uncomplicated; E78.5 Hyperlipidemia, unspecified; I10 Essential (primary) hypertension; F17.210 Nicotine dependence, cigarettes, uncomplicated
CPT/HCPCS: 72128; 72131; 73502; 73562; 99284; A9270

== ENCOUNTER 2024-08-31 14:28 | Emergency (ER) | payer BC, SELFPAY ==
--- NOTE | ~2024-08-31 | CT_ITS ---
EXAMINATION: CT abdomen pelvis w con DATE: 08/31/2024 16:14 INDICATION: Epigastric, suprapubic, lower back pain TECHNIQUE: Computed tomography (CT) of the abdomen and pelvis was performed with 100 mL Omnipaque-350 intravenous contrast. Automated exposure control and iterative reconstruction technique were employe d. The dose-length product was 487.50 mGy-cm. COMPARISON: 07/22/2024; MRCP 04/08/2024. FINDINGS: Lower thorax: Unremarkable Liver: Subcentimeter right lobe hypodensity, likely cyst or hemangioma. Biliary/Gallbladder: Gallbladder is absent. No bile duct dilation. Pancreas: No mass or duct dilation. Spleen: Normal. Adrenals:No mass. Kidneys: No suspicious mass, obstructing stone, or hydronephrosis. Simple cyst in the left inferior p ole. Left renal scarring. Subcentimeter right midpole hypodensity too small to characterize but likel y represents a cyst. Multiple bilateral nonobstructing calculi, measuring up to 1.2 cm in the left in ferior pole. GI tract: Mild distal esophageal and gastric wall edema. No small or large bowel dilation. Appendix n ot confidently visualized. Mesentery/Peritoneum: No ascites, mass, or free air. Retroperitoneum: No mass. Pelvis: Pelvic organs are within normal limits. Soft Tissues: Small fat-containing left inguinal hernia. Bones: No acute osseous finding. IMPRESSION: Mild esophagitis/gastritis. Otherwise, no acute abdominopelvic process detected. Reviewed, dictated and finalized at location K.
[2024-08-31 14:31] VITALS: BP 143/83; PULSE 97; RESP 15; TEMP 36.8; O2SAT 100
[2024-08-31 14:50] LABS: BEDSIDEPREGUCG Negative (Negative)
[2024-08-31 14:51] LABS: Hemoglobin 15.7 g/dL (12.0-15.0); Mean Corpuscular HGB Conc 34.1 g/dl (32-36); Mean Corpuscular Hemoglobin 32.1 pg (26-34); Mean Corpuscular Volume 94.1 fl (80-100); Mean Platelet Volume 9.1 fl (7.4-10.4); Platelet Count Result 335 k/mm3 (150-375); Red Blood Count 4.89 M/mm3 (4.2-5.4); Red Cell Distribution Width 14.3 % (11.5-14.5); White Blood Count 24.1 K/mm3 (4.5-10.0)
[2024-08-31 15:11] LABS: Alanine Aminotransferase 62 U/L (6-35); Albumin Level 4.4 g/dL (3.5-5.1); Alkaline Phosphatase 87 U/L (38-126); Anion Gap 9 mmol/L (4-12); Aspartate Amino Transferase 82 U/L (14-36); Bilirubin,Total 0.6 mg/dL (0.2-1.3); Blood Urea Nitrogen 9 mg/dL (7-17); Calcium 9.5 mg/dL (8.4-10.2); Carbon Dioxide 23 mmol/L (22-30); Chloride 103 mmol/L (98-107); Estimated CRCL calculation 83 ml/min; Estimated Glomerular Filt Rate > 60; Glucose 112 mg/dL (65-110); Lipase 194 U/L (23-300); Sodium 135 mmol/L (137-145)
[2024-08-31 15:15] LABS: Add Urine Microscopic? YES; Appearance Urine Turbid (Clear); Bacteria Urine 4+ /hpf; Bilirubin Urine Negative (Negative); Blood Urine Negative (Negative); Color Urine Dark Yellow (Yellow); Glucose Urine UA Negative (Negative); Ketones Urine Trace mg/dL (Negative); Leukocyte Esterase Ur 2+ LEU/UL (Negative); Need Manual Microscopic Reviewed; Nitrate Urine Negative (Negative); Non Pathogenic Casts 0-2; Protein Urine Trace mg/dL (Negative); Specific Grav Ur 1.028 (1.001-1.035); Squamous Epithelial Cell Urine Many /hpf (Few); WBC Urine 21-50 /hpf (0-3); pH Urine 6.5 (5.0-9.0)
[2024-08-31 15:24] LABS: Monocytes Absolute Manual 1.44 K/mm3 (0.1-0.90); Monocytes Percent Manual 6 % (3-9); Neutrophils Percent Manual 72 % (46-73); Platelet Estimate Adequate (Adequate); Schistocytes None Seen; Total Cells Counted 100
--- NOTE | 2024-08-31 16:06 | ED.FALL ---
HPI - Fall General Chief Complaint: Fall Stated Complaint: fall Time Seen by Provider: 08/31/24 15:26 History of Present Illness HPI Narrative: 43-year-old female presented emergency department for evaluation for back pain epigastric pain. Patient does have left-sided back pain. Patient reports she had a fall in the shower today further worsening her back. Patient has also been having epigastric pain for the last 2 days. Related Data Home Medications Medication Instructions Recorded Confirmed buspirone 10 mg tablet 10 mg PO BID 02/14/24 04/23/24 dicyclomine 20 mg tablet 20 mg PO TID 02/14/24 04/23/24 eluxadoline 100 mg tablet (Viberzi) 100 mg PO BID 02/14/24 04/23/24 fluticasone 250 mcg-salmeterol 50 1 ea inhalation BID 02/14/24 04/23/24 mcg/dose blistr powdr for inhalation lisinopril 10 mg tablet 10 mg PO DAILY 02/14/24 04/23/24 metformin 500 mg tablet,extended 500 mg PO BID 02/14/24 04/23/24 release 24 hr rosuvastatin 10 mg tablet 10 mg PO HS 02/14/24 04/23/24 levocetirizine 5 mg tablet (Xyzal) 5 mg PO HS PRN Congestion 03/31/24 04/23/24 Allergies Allergy/AdvReac Type Severity Reaction Status Date / Time No Known Allergies Allergy Verified 04/21/24 09:16 Review of Systems Review of Systems: All systems reviewed & are unremarkable except as noted in HPI and below PMFSH Past Medical History Medical History Asthma Chronic pain r/t sciatica and L4/L5/L6 protruding HLD (hyperlipidemia) HTN (hypertension) Irritable bowel syndrome with diarrhea Irritable bowel syndrome with diarrhea Lactic acid acidosis PCOS (polycystic ovarian syndrome) Surgical History Surgical History History of appendectomy History of cervical spinal surgery (03/08/23) anterior cervical discectomy and fusion History of cholecystectomy Family History Family History Father Hypertension Patient's father is in good health Cerebrovascular accident Family history of heart disease in male family member before age 55 Mother Patient's mother is in good health Family history of diabetes mellitus in first degree relative Sibling Family history of diabetes mellitus in first degree relative Social History Social History Social History: Lives at home with her father and , Chinmay Moy is her emergency contact ([phone]). Smoking packs per day: 1 Smoking cigarettes per day: 20.0 Years smoked: 29 Smoking pack-years: 29.00 Smoking status: Heavy tobacco smoker Second hand tobacco smoke exposure: Yes Alcohol intake: never Alcohol use details: rarely drinks, a couple time a month Substance use: current Substance use type: marijuana Last use: 03/29 Do You Feel Safe in your Home?: Yes Lack of Transportation: No Lack of Food: Never True Current Housing: I Have Housing Concerned About Future Housing: No Difficulty Paying Gas/Electric Bills: No Difficulty Paying for Meds: No Currently Unemployed: No Education: Grade School Difficulty w/ Childcare or Family Care: No Living arrangements: with family Additional living arrangements comments: Lives with father and Occupation/Education: unemployed Additional occupation/education comments: 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 HEAD: normocephalic, atraumatic. EYES: PERRLA/EOMI, conjunctivae clear. NOSE: Normal no drainage EARS:TMS clear with good light reflex. THROAT: Pharynx clear, no exudate. NECK: Supple. No adenopathy, no masses. RESPIRATORY: Airway patent, respirations nonlabored. Clear to auscultation bilaterally, no rales, rhonchi, wheezin
[2024-08-31] MEDS: HYDROmorphone HCL INJ (*CRX) 1 MG/ML SYR 0.5 MG IV PUSH (16:17)
[2024-08-31] MEDS: PANTOPRAZOLE SODIUM IV 40 MG VIAL IV PUSH (16:54)
[2024-08-31] MEDS: FAMOTIDINE 20 MG/2 ML VIAL IV PUSH (16:54)
== END 2024-08-31 18:06 | disposition home or self-care (01) ==
PROVIDERS: Emergency Provider Emergency Medicine
DX: K20.90 Esophagitis, unspecified without bleeding (principal); K29.70 Gastritis, unspecified, without bleeding; N39.0 Urinary tract infection, site not specified; G89.29 Other chronic pain; I10 Essential (primary) hypertension; J45.909 Unspecified asthma, uncomplicated; E78.5 Hyperlipidemia, unspecified; E28.2 Polycystic ovarian syndrome; K58.0 Irritable bowel syndrome with diarrhea; Z90.49 Acquired absence of other specified parts of digestive tract; Z79.899 Other long term (current) drug therapy; Z79.84 Long term (current) use of oral hypoglycemic drugs; F17.210 Nicotine dependence, cigarettes, uncomplicated
CPT/HCPCS: 36415; 74177; 80053; 81001; 81025; 83690; 85025; 87086; 96365; 96375; 99284; J0696; J1171; J2470; Q9967

== ENCOUNTER 2024-09-10 16:34 | Emergency (ER) | payer BC, SELFPAY ==
--- NOTE | ~2024-09-10 | CT_ITS ---
CLINICAL INDICATION: Left flank pain. COMPARISON: 08/31/2024. TECHNIQUE: Computed tomography (CT) of the abdomen and pelvis was performed without intravenous contr ast. The dose-length product was 409.21 mGy-cm. FINDINGS/OBSERVATIONS: Visualized lower thorax:The bilateral lung bases are clear. The heart is of normal size, without derrick cardial effusion. A small hiatal hernia is present. Liver: The liver is enlarged measuring 19 cm in longitudinal dimension. Gallbladder and biliary system: The gallbladder is surgically absent. Pancreas: Limited evaluation without intravenous contrast. Spleen: The spleen is not enlarged and demonstrates homogeneous attenuation. Kidneys: A 15 mm calculus is identified within the lower pole of the left kidney. No left sided hydroureteronephrosis is present. This is unchanged from examination dated 08/31/2014 A 3 mm calculus is identified within the interpolar region of the right kidney, also unchanged. Multiple smaller calculi are detected bilaterally, all are nonobstructing. Adrenal glands: Unremarkable Gastrointestinal tract: Unremarkable Appendix:The appendix is not definitively visualized. However, no pericecal inflammatory change is id entified suggest the presence of acute appendicitis. Vasculature: Unremarkable Lymph nodes: No pathologically enlarged or morphologically suspicious lymph nodes within the retroper itoneum or at the mesentery. Pelvic structures:The bladder is decompressed, limiting its evaluation. The uterus is anteverted and anteflexed. The contour of the bilateral ovaries are unremarkable. Body wall and musculoskeletal: Fat-containing left inguinal hernia. No significant degenerative disea se is identified within the lower thoracic or lumbosacral spine. No lytic or blastic lesions are present. IMPRESSION: Redemonstration of bilateral nonobstructing renal calculi, as detailed above. No obstructive uropathy. Reviewed, dictated and finalized at location A.
[2024-09-10 16:38] VITALS: BP 144/92; PULSE 110; RESP 18; O2SAT 97
[2024-09-10 16:58] VITALS: BP 133/88; PULSE 109; RESP 20; O2SAT 98
--- NOTE | 2024-09-10 17:08 | ED.FEMALEGU ---
HPI - Female Genitourinary General Chief complaint: Urogenital-Female Stated complaint: kidney stone sx Time Seen by Provider: 09/10/24 17:00 History of Present Illness HPI Narrative: Year old female with history of hyperlipidemia, hypertension, asthma, MDD, s/p pancreatitis, s/p appendectomy cholecystectomy presents to the emergency department for left flank pain and left-sided abdominal pain for 2 days. Patient describes the pain as sharp and constant. States she has had kidney stones in the past and this seems similar. She went to [facility] yesterday and was told she had a stone lodged in her kidney but it was not obstructing so she was discharged home. States the pain is progressively worsened so she presented to our ER today. She is reporting associated nausea, denies emesis, fever, dysuria, hematuria. Related Data Home Medications Medication Instructions Recorded Confirmed buspirone 10 mg tablet 10 mg PO BID 02/14/24 04/23/24 dicyclomine 20 mg tablet 20 mg PO TID 02/14/24 04/23/24 eluxadoline 100 mg tablet (Viberzi) 100 mg PO BID 02/14/24 04/23/24 fluticasone 250 mcg-salmeterol 50 1 ea inhalation BID 02/14/24 04/23/24 mcg/dose blistr powdr for inhalation lisinopril 10 mg tablet 10 mg PO DAILY 02/14/24 04/23/24 metformin 500 mg tablet,extended 500 mg PO BID 02/14/24 04/23/24 release 24 hr rosuvastatin 10 mg tablet 10 mg PO HS 02/14/24 04/23/24 levocetirizine 5 mg tablet (Xyzal) 5 mg PO HS PRN Congestion 03/31/24 04/23/24 Allergies Allergy/AdvReac Type Severity Reaction Status Date / Time No Known Allergies Allergy Verified 04/21/24 09:16 [facility], [facility] Past Medical History Medical History Asthma Chronic pain r/t sciatica and L4/L5/L6 protruding HLD (hyperlipidemia) HTN (hypertension) Irritable bowel syndrome with diarrhea Irritable bowel syndrome with diarrhea Lactic acid acidosis PCOS (polycystic ovarian syndrome) Surgical History Surgical History History of appendectomy History of cervical spinal surgery (03/08/23) anterior cervical discectomy and fusion History of cholecystectomy Family History Family History Father Hypertension Patient's father is in good health Cerebrovascular accident Family history of heart disease in male family member before age 55 Mother Patient's mother is in good health Family history of diabetes mellitus in first degree relative Sibling Family history of diabetes mellitus in first degree relative Social History Social History Social History: Lives at home with her father and , Chinmay Muñoz. Chinmay is her emergency contact ([phone]). Smoking packs per day: 1 Smoking cigarettes per day: 20.0 Years smoked: 29 Smoking pack-years: 29.00 Smoking status: Heavy tobacco smoker Second hand tobacco smoke exposure: Yes Alcohol intake: never Alcohol use details: rarely drinks, a couple time a month Substance use: current Substance use type: marijuana Last use: 03/29 Do You Feel Safe in your Home?: Yes Lack of Transportation: No Lack of Food: Never True Current Housing: I Have Housing Concerned About Future Housing: No Difficulty Paying Gas/Electric Bills: No Difficulty Paying for Meds: No Currently Unemployed: No Education: Grade School Difficulty w/ Childcare or Family Care: No Living arrangements: with family Additional living arrangements comments: Lives with father and Occupation/Education: unemployed Additional occupation/education comments: 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 HEAD: Normoceph
[2024-09-10 17:43] LABS: Basophils Absolute Auto 0.1 K/mm3 (0.0-0.1); Basophils Percent Auto 0.5 % (0.2-1.2); Eosinophils Absolute Auto 0.1 K/mm3 (0-0.3); Eosinophils Percent Auto 0.6 % (0-4.4); Hematocrit 47.5 % (37.0-47.0); Hemoglobin 16.3 g/dL (12.0-15.0); Immature Granulocyte Absolute 0.09 K/mm3 (0.00-0.031); Immature Granulocyte Percent A 0.5 % (0-0.5); Lymphocytes Absolute Auto 4.02 K/mm3 (0.9-3.2); Lymphocytes Percent Auto 21.4 % (18.3-44.2); Mean Corpuscular HGB Conc 34.3 g/dl (32-36); Mean Corpuscular Hemoglobin 32.3 pg (26-34); Mean Corpuscular Volume 94.1 fl (80-100); Mean Platelet Volume 9.5 fl (7.4-10.4); Monocytes Percent Auto 5.1 % (2.6-8.5); Neutrophils Absolute Auto 13.5 K/mm3 (1.3-6.7); Neutrophils Percent Auto 71.9 % (45.5-73.1); Platelet Count Result 351 k/mm3 (150-375); Red Blood Count 5.05 M/mm3 (4.2-5.4); White Blood Count 18.8 K/mm3 (4.5-10.0)
[2024-09-10 17:48] LABS: BEDSIDEPREGUCG Negative (Negative)
[2024-09-10 17:55] LABS: Alanine Aminotransferase 29 U/L (6-35); Albumin Level 4.7 g/dL (3.5-5.1); Alkaline Phosphatase 68 U/L (38-126); Anion Gap 11 mmol/L (4-12); Aspartate Amino Transferase 26 U/L (14-36); Bilirubin,Total 0.5 mg/dL (0.2-1.3); Blood Urea Nitrogen 11 mg/dL (7-17); Calcium 9.5 mg/dL (8.4-10.2); Carbon Dioxide 25 mmol/L (22-30); Chloride 104 mmol/L (98-107); Estimated CRCL calculation 82 ml/min; Estimated Glomerular Filt Rate > 60; Glucose 114 mg/dL (65-110); Lipase 206 U/L (23-300); Potassium 3.5 mmol/L (3.4-5.0); Sodium 140 mmol/L (137-145)
[2024-09-10 18:03] LABS: Add Urine Microscopic? YES; Appearance Urine Cloudy (Clear); Bacteria Urine Rare /hpf; Bilirubin Urine Negative (Negative); Blood Urine Non-Hemolyzed Trace (Negative); Color Urine Dark Yellow (Yellow); Glucose Urine UA Trace mg/dL (Negative); Ketones Urine Trace mg/dL (Negative); Leukocyte Esterase Ur Negative LEU/UL (Negative); Need Manual Microscopic Reviewed; Nitrate Urine Negative (Negative); Non Pathogenic Casts 0-2; Protein Urine Trace mg/dL (Negative); Specific Grav Ur 1.026 (1.001-1.035); Squamous Epithelial Cell Urine Moderate /hpf (Few); WBC Urine 0-5 /hpf (0-3)
[2024-09-10] MEDS: SODIUM CHLORIDE 0.9% IV 1,000 ML 999 ML IV CONT (18:17)
[2024-09-10] MEDS: ONDANSETRON INJ 4 MG/2 ML VIAL IV PUSH (18:19)
[2024-09-10] MEDS: MORPHINE SULFATE (*CRX) 4 MG/ML INJ IV PUSH (18:20)
[2024-09-10 18:26] VITALS: BP 127/83; PULSE 89; RESP 18; O2SAT 98
[2024-09-10 18:38] VITALS: TEMP 36.3
[2024-09-10] MEDS: KETOROLAC 15 MG/ML VIAL (*BKC) IV PUSH (20:05)
[2024-09-10 20:10] VITALS: BP 122/84; PULSE 84; RESP 20; TEMP 36.3; O2SAT 98
== END 2024-09-10 20:16 | disposition home or self-care (01) ==
PROVIDERS: Emergency Provider Physician Assistant
DX: R10.9 Unspecified abdominal pain (principal); N20.0 Calculus of kidney; R31.21 Asymptomatic microscopic hematuria; E78.5 Hyperlipidemia, unspecified; I10 Essential (primary) hypertension; J45.909 Unspecified asthma, uncomplicated; F17.210 Nicotine dependence, cigarettes, uncomplicated
CPT/HCPCS: 36415; 74176; 80053; 81001; 81025; 83690; 85025; 96361; 96374; 96375; 99284; J1885; J2270; J2405; J7030

== ENCOUNTER 2024-09-26 12:10 | Observation (INO) | payer BC, SELFPAY ==
--- NOTE | ~2024-09-26 | CT_ITS ---
CT of the Abdomen and Pelvis: Indication: Abdominal pain Technique: 2.5 mm axial scans were obtained through the abdomen and pelvis following intravenous adm inistration of 100 cc of Omnipaque 350. Dose reduction technique was used on this scan by utilizing a utomated exposure control and iterative reconstruction technique. The dose-length product (DLP) was 4 19.01 mGy-cm. COMPARISON: 09/10/2024 Findings: Scans through the lung bases are unremarkable. The liver, spleen, pancreas, adrenals and right kidney are within normal limits. Cholecystectomy clip s are present. Irregular left lower pole renal stone measures 14 mm in diameter. No evidence of aorti c aneurysm. No lymphadenopathy. No bowel obstruction or bowel wall thickening. There is no evidence to suggest acute appendicitis. Images through the pelvis were performed. Urinary bladder unremarkable. Both ovaries are somewhat pro minent, but stable from prior exam. No other adnexal mass seen. No ascites. Impression: No acute abnormality evident. 14 mm left renal stone. Reviewed, dictated and finalized at location . LIER MANAGER Impression: No acute abnormality evident. 14 mm left renal stone.
[2024-09-26 12:12] VITALS: BP 125/84; PULSE 97; RESP 16; TEMP 36.6; O2SAT 100
--- NOTE | 2024-09-26 12:23 | ED_ITS ---
HPI - Female Genitourinary General Chief complaint: Urogenital-Female <Nereida Teran APRN - Last Filed: 09/26/24 12:26> Stated complaint: L flank pain <Nereida Teran APRN - Last Filed: 09/26/24 12:26> Time Seen by Provider: 09/26/24 12:15 <Nereida Teran APRN - Last Filed: 09/26/24 12:26> Focused HPI: Patient is a 44-year-old female who presents to ER with left lower quadrant pain, nausea, vomiting, diarrhea. She reports her medical history is kidney stones, appendectomy, and cholecystectomy. Patient reports her symptoms started yesterday. She denies any urinary symptoms, chest pain, or fevers. GENERAL: Well-appearing, well-nourished, and in no acute distress. HEAD: Normocephalic, atraumatic. CHEST: Clear to auscultation. ?No respiratory distress. HEART: Regular rate and rhythm.? NEURO: ?Alert and oriented x3. Patient screened in triage and initial orders placed.? ?Additional care and disposition to be based upon?diagnostic testing and treatment. <Nereida Teran, SURVEYOR HELPER [employer] - Last Filed: 09/26/24 12:26> Related Data Home medications: Home Medications Medication Instructions Recorded Confirmed buspirone 10 mg tablet 10 mg PO BID 02/14/24 04/23/24 dicyclomine 20 mg tablet 20 mg PO TID 02/14/24 04/23/24 eluxadoline 100 mg tablet (Viberzi) 100 mg PO BID 02/14/24 04/23/24 fluticasone 250 mcg-salmeterol 50 1 ea inhalation BID 02/14/24 04/23/24 mcg/dose blistr powdr for inhalation lisinopril 10 mg tablet 10 mg PO DAILY 02/14/24 04/23/24 metformin 500 mg tablet,extended 500 mg PO BID 02/14/24 04/23/24 release 24 hr rosuvastatin 10 mg tablet 10 mg PO HS 02/14/24 04/23/24 levocetirizine 5 mg tablet (Xyzal) 5 mg PO HS PRN Congestion 03/31/24 04/23/24 <Nereida Teran APRN - Last Filed: 09/26/24 12:26> Allergies/Adverse reactions: Allergies Allergy/AdvReac Type Severity Reaction Status Date / Time No Known Allergies Allergy Verified 09/26/24 15:25 <Nereida Teran APRN - Last Filed: 09/26/24 12:26> Review of Systems Review of Systems: All systems reviewed & are unremarkable except as noted in HPI and below <Jef Ahn MD - Last Filed: 09/26/24 16:29> FOR[facility]LY [facility] Past Medical History Medical History: Medical History Asthma Chronic pain r/t sciatica and L4/L5/L6 protruding HLD (hyperlipidemia) HTN (hypertension) Irritable bowel syndrome with diarrhea Irritable bowel syndrome with diarrhea Lactic acid acidosis PCOS (polycystic ovarian syndrome) <Nereida Teran APRN - Last Filed: 09/26/24 12:26> Surgical History Surgical History: Surgical History History of appendectomy History of cervical spinal surgery (03/08/23) anterior cervical discectomy and fusion History of cholecystectomy <Nereida Teran APRN - Last Filed: 09/26/24 12:26> Family History Family History: Family History Father Hypertension Patient's father is in good health Cerebrovascular accident Family history of heart disease in male family member before age 55 Mother Patient's mother is in good health Family history of diabetes mellitus in first degree relative Sibling Family history of diabetes mellitus in first degree relative <Nereida Teran APRN - Last Filed: 09/26/24 12:26> Social History Social History: Social History Social History: Lives at home with her father and , Chinmay Muñoz. Chinmay is her emergency contact ([phone]). Smoking packs per day: 1 Smoking cigarettes per day: 20.0 Years smoked: 29 Smoking pack-years: 29.00 Smoking status: Heavy tobacco smoker Second hand tobacco smoke exposure: Yes Alcohol intake: never Alcohol use details: rarely drinks, a couple time a month Substance use: current Substance use type: marijuana Last use: 03/29 Do You Feel Safe in your Home?: Yes Lack of Transportation: No Lack of Food: Never True Current Housing: I Have Housing Concerned About Future Housing: No Difficulty Paying Gas/Electric Bills: No Difficulty Paying for Meds: No Currently Unemployed: No Education: Grade School Difficulty w/ Childcare or Family Care: No Living arrangements: with family Additional living arrangements comments: Lives with father and Occupation/Education: unemployed Additional occupation/education comments: 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 Eyes: Pupils equal, round, and reactive to light. Neck: Supple, no tracheal deviation, no JVD. ENMT: Mucous membranes moist Cardiovascular: S1, S2 auscultated. No murmurs, rubs, or gallops. No S3/S4. Normal Distal pulses. No peripheral edema. Respiratory: Lung sounds equal. No wheezes, rales, or rhonchi. Gastrointestinal: Abdomen was soft and non-tender. Non-distended. No rebound or guarding. Left CVA tenderness mild Genitourinary: Deferred Musculoskeletal: Normal muscle tone and bulk. No obvious deformities or tenderness over extremities. Skin: No rashes. Neurological: Strength 5/5 in extremities. Cranial nerves I-XII grossly intact. Distal sensation intact. Mental Status: Awake, alert and oriented x3. Follows commands <Jef Ahn MD - Last Filed: 09/26/24 16:29> Course Vital Signs Vital signs: Vital Signs Temperature 36.6 C 09/26/24 12:12 Pulse Rate 97 09/26/24 12:12 Respiratory Rate 16 09/26/24 12:12 Blood Pressure 125/84 09/26/24 12:12 Pulse Oximetry 100 09/26/24 12:12 Oxygen Delivery Room Air 09/26/24 12:12 Temperature 36.6 C 09/26/24 15:18 Pulse Rate 91 09/26/24 15:18 Respiratory Rate 16 09/26/24 15:18 Blood Pressure 156/96 H 09/26/24 15:18 Pulse Oximetry 100 09/26/24 15:18 Oxygen Delivery Room Air 09/26/24 12:12 <Nereida Teran APRN - Last Filed: 09/26/24 12:26> Vital Signs Temperature 36.6 C 09/26/24 12:12 Pulse Rate 97 09/26/24 12:12 Respiratory Rate 16 09/26/24 12:12 Blood Pressure 125/84 09/26/24 12:12 Pulse Oximetry 100 09/26/24 12:12 Oxygen Delivery Room Air 09/26/24 12:12 Temperature 36.6 C 09/26/24 15:18 Pulse Rate 91 09/26/24 15:18 Respiratory Rate 16 09/26/24 15:18 Blood Pressure 156/96 H 09/26/24 15:18 Pulse Oximetry 100 09/26/24 15:18 Oxygen Delivery Room Air 09/26/24 12:12 <Jef Ahn MD - Last Filed: 09/26/24 16:29> MDM - Female Genitourinary MDM Narrative Medical decision making narrative: Patient presented for left flank pain for few days. On exam is left CVA tenderness. Has a history of kidney stones. Workup obtained, CT shows 14 mm kidney stone left lower renal pole. Will discuss with urology. Given IV pain medication. Spoke with Urology who have no suggestions at this point, do not suspect is causing the pain however clinically it does appear like patient has renal colic in her white blood cell count is elevated however it is chronically elevated feels started ceftriaxone, admitted for observation for fluids and pain control. <Jef Ahn MD - Last Filed: 09/26/24 16:29> Lab Data Result diagrams: 09/26/24 13:02 09/26/24 13:16 <Nereida Teran APRN - Last Filed: 09/26/24 12:26> Labs: Lab Results 09/26/24 09/26/24 09/26/24 Range/Units 13:02 13:04 13:16 WBC 23.8 H (4.5-10.0) K/mm3 RBC 5.13 (4.2-5.4) M/mm3 Hgb 16.5 H (12.0-15.0) g/dL Hct 48.4 H (37.0-47.0) % MCV 94.3 (80-100) fl MCH 32.2 (26-34) pg MCHC 34.1 (32-36) g/dl RDW 13.9 (11.5-14.5) % Plt Count 339 (150-375) k/mm3 MPV 9.2 (7.4-10.4) fl Immature Gran % (Auto) 0.5 (0-0.5) % Neut % (Auto) 81.4 H (45.5-73.1) % Lymph % (Auto) 13.5 L (18.3-44.2) % [place] % (Auto) 4.1 (2.6-8.5) % Eos % (Auto) 0.2 (0-4.4) % Baso % (Auto) 0.3 (0.2-1.2) % Lymph # (Auto) 3.20 (0.9-3.2) K/mm3 [place] # (Auto) 1.0 H (0.1-0.6) K/mm3 Eos # (Auto) 0.1 (0-0.3) K/mm3 Baso # (Auto) 0.1 (0.0-0.1) K/mm3 Abs Immat Gran (auto) 0.13 H (0.00-0.031) K/mm3 Absolute Neuts (auto) 19.3 H (1.3-6.7) K/mm3 Absolute Nucleated RBC 0.000 (0.0-0.012) K/mm3 Nucleated RBC % 0.0 (0.0-0.2) % Sodium 136 L (137-145) mmol/L Potassium 4.4 (3.4-5.0) mmol/L Chloride 103 (98-107) mmol/L Carbon Dioxide 24 (22-30) mmol/L Anion Gap 9 (4-12) mmol/L BUN 7 (7-17) mg/dL Creatinine 0.60 L 0.70 (0.7-1.0) mg/dL Estim Creat Clear Calc 92 80 ml/min Estimated GFR > 60 > 60 (59 - ) Glucose 127 H (65-110) mg/dL Calcium 9.7 (8.4-10.2) mg/dL Total Bilirubin 0.9 (0.2-1.3) mg/dL AST 39 H (14-36) U/L ALT 47 H (6-35) U/L Alkaline Phosphatase 73 (38-126) U/L Total Protein 8.0 (6.3-8.2) g/dL Albumin 4.7 (3.5-5.1) g/dL Lipase 63 (23-300) U/L Urine Color Yellow (Yellow) Urine Appearance Cloudy H (Clear) Urine pH 8.0 (5.0-9.0) Ur Specific [place] 1.013 (1.001-1.035) Urine Protein Negative (Negative) mg/dL Urine Glucose (UA) Negative (Negative) mg/dL Urine Ketones Negative (Negative) mg/dL Ur Blood (Man) Negative (Negative) Urine Nitrate Negative (Negative) Urine Bilirubin Negative (Negative) Urine Urobilinogen 1.0 (<2.0) mg/dL Leukocyte Esterase Rfl Negative (Negative) JOY/UL Urine RBC 3-5 H (0-2) /hpf Urine WBC 0-5 (0-3) /hpf Ur Squamous Epith Cells Many H (Few) /hpf Urine Bacteria Rare /hpf Urine Casts 0-2 POC Urine HCG, Qual Negative (Negative) <Nereida Teran, SURVEYOR HELPER ROD - Last Filed: 09/26/24 12:26> Lab Results 09/26/24 09/26/24 09/26/24 Range/Units 13:02 13:04 13:16 WBC 23.8 H (4.5-10.0) K/mm3 RBC 5.13 (4.2-5.4) M/mm3 Hgb 16.5 H (12.0-15.0) g/dL Hct 48.4 H (37.0-47.0) % MCV 94.3 (80-100) fl MCH 32.2 (26-34) pg MCHC 34.1 (32-36) g/dl RDW 13.9 (11.5-14.5) % Plt Count 339 (150-375) k/mm3 MPV 9.2 (7.4-10.4) fl Immature Gran % (Auto) 0.5 (0-0.5) % Neut % (Auto) 81.4 H (45.5-73.1) % Lymph % (Auto) 13.5 L (18.3-44.2) % [place] % (Auto) 4.1 (2.6-8.5) % Eos % (Auto) 0.2 (0-4.4) % Baso % (Auto) 0.3 (0.2-1.2) % Lymph # (Auto) 3.20 (0.9-3.2) K/mm3 [place] # (Auto) 1.0 H (0.1-0.6) K/mm3 Eos # (Auto) 0.1 (0-0.3) K/mm3 Baso # (Auto) 0.1 (0.0-0.1) K/mm3 Abs Immat Gran (auto) 0.13 H (0.00-0.031) K/mm3 Absolute Neuts (auto) 19.3 H (1.3-6.7) K/mm3 Absolute Nucleated RBC 0.000 (0.0-0.012) K/mm3 Nucleated RBC % 0.0 (0.0-0.2) % Sodium 136 L (137-145) mmol/L Potassium 4.4 (3.4-5.0) mmol/L Chloride 103 (98-107) mmol/L Carbon Dioxide 24 (22-30) mmol/L Anion Gap 9 (4-12) mmol/L BUN 7 (7-17) mg/dL Creatinine 0.60 L 0.70 (0.7-1.0) mg/dL Estim Creat Clear Calc 92 80 ml/min Estimated GFR > 60 > 60 (59 - ) Glucose 127 H (65-110) mg/dL Calcium 9.7 (8.4-10.2) mg/dL Total Bilirubin 0.9 (0.2-1.3) mg/dL AST 39 H (14-36) U/L ALT 47 H (6-35) U/L Alkaline Phosphatase 73 (38-126) U/L Total Protein 8.0 (6.3-8.2) g/dL Albumin 4.7 (3.5-5.1) g/dL Lipase 63 (23-300) U/L Urine Color Yellow (Yellow) Urine Appearance Cloudy H (Clear) Urine pH 8.0 (5.0-9.0) Ur Specific [place] 1.013 (1.001-1.035) Urine Protein Negative (Negative) mg/dL Urine Glucose (UA) Negative (Negative) mg/dL Urine Ketones Negative (Negative) mg/dL Ur Blood (Man) Negative (Negative) Urine Nitrate Negative (Negative) Urine Bilirubin Negative (Negative) Urine Urobilinogen 1.0 (<2.0) mg/dL Leukocyte Esterase Rfl Negative (Negative) JOY/UL Urine RBC 3-5 H (0-2) /hpf Urine WBC 0-5 (0-3) /hpf Ur Squamous Epith Cells Many H (Few) /hpf Urine Bacteria Rare /hpf Urine Casts 0-2 POC Urine HCG, Qual Negative (Negative) <Jef Ahn MD - Last Filed: 09/26/24 16:29> Discharge Plan Discharge Clinical Impression: Left renal stone <Nereida Teran APRN - Last Filed: 09/26/24 12:26> Patient Disposition: Still a Patient <Nereida Teran APRN - Last Filed: 09/26/24 12:26> Condition: Stable <Nereida Teran APRN - Last Filed: 09/26/24 12:26> Prescriptions: No Action fluticasone propion-salmeterol 250-50 mcg/dose blister with device 1 ea INHALATION BID dicyclomine 20 mg tablet 20 mg PO TID buspirone 10 mg tablet 10 mg PO BID lisinopril 10 mg tablet 10 mg PO DAILY metformin 500 mg tablet extended release 24 hr 500 mg PO BID rosuvastatin 10 mg tablet 10 mg PO HS Viberzi 100 mg tablet 100 mg PO BID cyclobenzaprine 10 mg tablet 10 mg PO BID PRN (Reason: muscle spasm) Qty: 14 0RF omeprazole 20 mg capsule,delayed release(DR/EC) 20 mg PO DAILY 14 Days Qty: 14 0RF hydrocodone-acetaminophen 5-325 mg tablet 1 tablet PO Q12H PRN (Reason: pain) Qty: 6 0RF phenazopyridine [Pyridium] 100 mg tablet 100 mg PO TID PRN (Reason: pain) Qty: 6 0RF cephalexin 500 mg capsule 500 mg PO Q8H 7 Days Qty: 21 0RF levocetirizine [Xyzal] 5 mg Tablet 5 mg PO HS PRN (Reason: Congestion) pantoprazole [Protonix] [address] for susp in packet 40 mg PO DAILY Qty: 30 0RF ibuprofen 600 mg tablet 600 mg PO Q6H PRN (Reason: pain) Qty: 14 0RF ondansetron 4 mg tablet,disintegrating 4 mg PO Q6H PRN (Reason: nausea and vomiting) Qty: 14 0RF <Nereida Teran APRN - Last Filed: 09/26/24 12:26> Follow-up/Referrals: UNKNOWN,DOCTOR [Primary Care Provider] - <Nereida Teran APRN - Last Filed: 09/26/24 12:26> Time of Disposition: 16:28 <Nereida Teran APRN - Last Filed: 09/26/24 12:26> 16:28 <Jef Ahn MD - Last Filed: 09/26/24 16:29>
[2024-09-26 13:06] LABS: BEDSIDEPREGUCG Negative (Negative)
[2024-09-26 13:18] LABS: Estimated CRCL calculation 80 ml/min; Estimated Glomerular Filt Rate > 60
[2024-09-26 13:21] LABS: Basophils Absolute Auto 0.1 K/mm3 (0.0-0.1); Basophils Percent Auto 0.3 % (0.2-1.2); Eosinophils Absolute Auto 0.1 K/mm3 (0-0.3); Eosinophils Percent Auto 0.2 % (0-4.4); Hematocrit 48.4 % (37.0-47.0); Hemoglobin 16.5 g/dL (12.0-15.0); Immature Granulocyte Absolute 0.13 K/mm3 (0.00-0.031); Immature Granulocyte Percent A 0.5 % (0-0.5); Lymphocytes Percent Auto 13.5 % (18.3-44.2); Mean Corpuscular HGB Conc 34.1 g/dl (32-36); Mean Corpuscular Hemoglobin 32.2 pg (26-34); Mean Corpuscular Volume 94.3 fl (80-100); Mean Platelet Volume 9.2 fl (7.4-10.4); Monocytes Percent Auto 4.1 % (2.6-8.5); Neutrophils Absolute Auto 19.3 K/mm3 (1.3-6.7); Neutrophils Percent Auto 81.4 % (45.5-73.1); Platelet Count Result 339 k/mm3 (150-375); Red Blood Count 5.13 M/mm3 (4.2-5.4); Red Cell Distribution Width 13.9 % (11.5-14.5); White Blood Count 23.8 K/mm3 (4.5-10.0)
[2024-09-26 13:31] LABS: Alanine Aminotransferase 47 U/L (6-35); Albumin Level 4.7 g/dL (3.5-5.1); Alkaline Phosphatase 73 U/L (38-126); Anion Gap 9 mmol/L (4-12); Aspartate Amino Transferase 39 U/L (14-36); Bilirubin,Total 0.9 mg/dL (0.2-1.3); Blood Urea Nitrogen 7 mg/dL (7-17); Calcium 9.7 mg/dL (8.4-10.2); Carbon Dioxide 24 mmol/L (22-30); Chloride 103 mmol/L (98-107); Estimated CRCL calculation 92 ml/min; Estimated Glomerular Filt Rate > 60; Glucose 127 mg/dL (65-110); Lipase 63 U/L (23-300); Potassium 4.4 mmol/L (3.4-5.0); Sodium 136 mmol/L (137-145)
[2024-09-26 13:46] LABS: Add Urine Microscopic? YES; Appearance Urine Cloudy (Clear); Bacteria Urine Rare /hpf; Bilirubin Urine Negative (Negative); Blood Urine Negative (Negative); Color Urine Yellow (Yellow); Glucose Urine UA Negative (Negative); Ketones Urine Negative (Negative); Leukocyte Esterase Ur Negative LEU/UL (Negative); Nitrate Urine Negative (Negative); Non Pathogenic Casts 0-2; Protein Urine Negative (Negative); Specific Grav Ur 1.013 (1.001-1.035); Squamous Epithelial Cell Urine Many /hpf (Few); WBC Urine 0-5 /hpf (0-3)
[2024-09-26 15:18] VITALS: BP 156/96; PULSE 91; RESP 16; TEMP 36.6; O2SAT 100
[2024-09-26] MEDS: KETOROLAC 15 MG/ML VIAL (*BKC) IV PUSH (15:22)
[2024-09-26] MEDS: SODIUM CHLORIDE 0.9% IV 1,000 ML 999 ML IV CONT (15:22)
[2024-09-26] MEDS: MORPHINE SULFATE (*CRX) 4 MG/ML INJ IV PUSH (15:50)
[2024-09-26 17:41] VITALS: BP 121/89; PULSE 82; RESP 16; TEMP 36.8; O2SAT 98
[2024-09-26] MEDS: cefTRIAXone 2 GM/NS 100 ML 2 GM/100 ML BAG IVPB (17:43)
[2024-09-26] MEDS: SODIUM CHLORIDE 0.9% IV 1,000 ML 150 ML IV CONT (18:40)
--- NOTE | 2024-09-26 18:41 | ADMGEN ---
This patient, Lissa Muñoz, was admitted to Medical Room 249-01. Patient/family oriented to hospital policies and general routines including ID bracelet, bed and alarms, visiting hours, pain management, procedures, bathroom and other care routines, personal items, smoking policy, room service/diet, and visiting hours. Information on how to activate the Rapid Response Team has been discussed. Patient/Family are encouraged to report perceived risks to care and to ask questions if they do not understand what they are told or what they should do.
[2024-09-26 18:43] VITALS: BP 131/82; PULSE 85; RESP 16; TEMP 36.8; O2SAT 99; BMI 28.6
[2024-09-26] MEDS: HYDROmorphone HCL INJ (*CRX) 1 MG/ML SYR IV PUSH ×2 (19:05→22:33)
--- NOTE | 2024-09-26 19:55 | PM.IMHP ---
H&P: HPI History of Present Illness Date/Time: 09/26/24 18:00 Chief Complaint: Left flank pain. Narrative: This is a 44-year-old female with history of kidney stones, chronic left lower back pain, irritable bowel syndrome with diarrhea, hypertension, and polycystic ovarian syndrome who presented to the emergency department via private vehicle for evaluation of left flank pain. The patient provides the following history. She has been having intermittent, colicky left flank pain for several weeks and was seen in the emergency department at [facility] on 09/09/2024 and here at [facility] on 09/10/2024 for evaluation. Imaging showed nonobstructing nephrolithiasis and she was discharged to follow-up with urology. Her pain had improved up until yesterday she once again developed colicky pain and in the left lower back radiating to the flank. The pain is similar to when she has had kidney stones and is not similar to her chronic left low back pain. She is on hydrocodone for her chronic back pain and that has not been helping very much. Associated symptoms include nausea, vomiting, and temperature up to 103? F last evening. She denies headache, neck ache, sinus congestion, dysuria, and hematuria. In the ED: She was afebrile on arrival with stable vital signs. Labs were significant for a WBC count of 23.8, hemoglobin 16.5, sodium 136, creatinine 0.70, AST 39, ALT 47. Urinalysis was positive for 3 to 5 RBC and many squamous cells. CT of the abdomen and pelvis showed no acute abnormality and a 14 mm left renal stone. She received morphine and ketorolac with continued pain. Urology was consulted by the ED physician they state there is no indication for intervention as the stone is in the kidney itself. Unfortunately her pain continues and she is being admitted in this setting for pain control. Review of Systems Review of Systems: 12 systems were reviewed and are negative except for as per HPI. FOR[facility]LY [facility] Past Medical History Medical History (Updated 09/26/24 @ 21:51 by Liat Macario PA-C) Asthma Chronic pain r/t sciatica and L4/L5/L6 protruding Hyperlipidemia Hypertension Irritable bowel syndrome with diarrhea Lactic acid acidosis Polycystic ovarian syndrome Surgical History Surgical History History of appendectomy History of cervical spinal surgery (03/08/23) anterior cervical discectomy and fusion History of cholecystectomy Family History Family History Father Hypertension Patient's father is in good health Cerebrovascular accident Family history of heart disease in male family member before age 55 Mother Patient's mother is in good health Family history of diabetes mellitus in first degree relative Sibling Family history of diabetes mellitus in first degree relative Social History Social History (Updated 09/26/24 @ 21:52 by Liat Macario PA-C) Social History: Surrogate medical decision maker: Chinmay Muñoz, spouse ([phone]). Code status: Full code. Smoking packs per day: 1 Smoking cigarettes per day: 20.0 Years smoked: 30 Smoking pack-years: 30.00 Smoking status: Current every day smoker Tobacco type: cigarettes Second hand tobacco smoke exposure: Yes Alcohol intake: never Alcohol use details: rarely drinks, a couple time a month Substance use: current Substance use type: marijuana Last use: 09/25/2024 Do You Feel Safe in your Home?: Yes Lack of Transportation: No Lack of Food: Never True Current Housing: I Have Housing Concerned About Future Housing: No Difficulty Paying Gas/Electric Bills: No Difficulty Paying for Meds: No Currently Unemployed: No Education: Grade School Difficulty w/ Childcare or Family Care: No Living arrangements: with family Additional living arrangements comments: Lives with father and . 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 Spiritual care concerns: No Agree to blood products: Yes Meds Home Medications and Allergies Home Medications Medication Instructions Recorded Confirmed Type dicyclomine 20 mg tablet 20 mg PO TID 02/14/24 09/26/24 History eluxadoline 100 mg tablet (Viberzi) 100 mg PO BID 02/14/24 09/26/24 History fluticasone 250 mcg-salmeterol 50 1 ea inhalation BID 02/14/24 09/26/24 History mcg/dose blistr powdr for inhalation lisinopril 10 mg tablet 10 mg PO DAILY 02/14/24 09/26/24 History metformin 500 mg tablet,extended 500 mg PO BID 02/14/24 09/26/24 History release 24 hr levocetirizine 5 mg tablet (Xyzal) 5 mg PO HS PRN Congestion 03/31/24 09/26/24 History ibuprofen 600 mg tablet 600 mg PO Q6H PRN pain #14 tabs 09/10/24 09/26/24 Rx buspirone 15 mg tablet 15 mg PO TID 09/26/24 09/26/24 History hydrocodone 10 mg-acetaminophen 1 tablet PO Q6H PRN Pain 09/26/24 09/26/24 History 325 mg tablet Allergies Allergy/AdvReac Type Severity Reaction Status Date / Time No Known Allergies Allergy Verified 09/26/24 18:52 Vital Signs Vital Signs - 24 hr 09/26/24 12:12 09/26/24 15:18 09/26/24 17:41 Temperature 97.8 F 97.8 F 98.3 F Pulse Rate 97 91 82 Respiratory Rate 16 16 16 Blood Pressure 125/84 156/96 H 121/89 Pulse Oximetry 100 100 98 Oxygen Delivery Room Air 09/26/24 18:43 Temperature 98.2 F Pulse Rate 85 Respiratory Rate 16 Blood Pressure 131/82 Pulse Oximetry 99 Oxygen Delivery Exam Narrative: General: Nontoxic-appearing female sitting up in bed in mild pain. Weight: 74.5 kg. BMI: 30.0. HEENT: PERRL, EOMI. Sclera anicteric. Tacky mucous membranes. Neck: Supple. Respiratory: Lungs are clear to auscultation bilaterally. Cardiovascular: Regular rate and rhythm with S1-S2. Gastrointestinal: Abdomen is soft and nondistended with positive bowel sounds. She is tender to palpation over the left flank. No obvious CVA tenderness. No guarding or rebound tenderness. Skin: Warm and dry. Extremities: No cyanosis, clubbing, or edema. Radial and pedal pulses intact. Spine: No midline vertebral tenderness. Neurological: Alert. Cranial nerves 2-12 are grossly intact. No gross focal deficits to casual conversation. Psychiatric: Pleasant and cooperative with normal mood and affect. Judgment and insight intact. H&P: Results Labs Labs: Short CBC 09/26/24 Range/Units 13:02 WBC 23.8 H (4.5-10.0) K/mm3 Hgb 16.5 H (12.0-15.0) g/dL Hct 48.4 H (37.0-47.0) % Plt Count 339 (150-375) k/mm3 BMP 09/26/24 09/26/24 13:02 13:16 Sodium 136 L Potassium 4.4 Chloride 103 Carbon Dioxide 24 BUN 7 Creatinine 0.60 L 0.70 Glucose 127 H Calcium 9.7 Liver Function 09/26/24 Range/Units 13:02 Total Bilirubin 0.9 (0.2-1.3) mg/dL AST 39 H (14-36) U/L ALT 47 H (6-35) U/L Alkaline Phosphatase 73 (38-126) U/L Albumin 4.7 (3.5-5.1) g/dL Urine 09/26/24 Range/Units 13:02 Urine Color Yellow (Yellow) Urine Appearance Cloudy H (Clear) Urine pH 8.0 (5.0-9.0) Ur Specific [place] 1.013 (1.001-1.035) Urine Protein Negative (Negative) mg/dL Urine Glucose (UA) Negative (Negative) mg/dL Impressions Abdomen/Pelvis CT 09/26/24 13:57 Impression: No acute abnormality evident. 14 mm left renal stone. Assessment and Plan Assessment and plan (1) Left flank pain: Code(s): R10.9 - Unspecified abdominal pain Status: Acute (2) Left renal stone: Code(s): N20.0 - Calculus of kidney Status: Acute (3) Leukocytosis: Qualifiers: Leukocytosis type: unspecified Qualified Code(s): D72.829 - Elevated white blood cell count, unspecified Code(s): D72.829 - Elevated white blood cell count, unspecified Status: Acute (4) Hypertension: Code(s): I10 - Essential (primary) hypertension Status: Acute (5) Polycystic ovarian syndrome: Code(s): E28.2 - Polycystic ovarian syndrome Status: Acute Plan The patient presented to the emergency department for evaluation of left flank pain as detailed in HPI. Labs, imaging, EKG, and all reports were personally reviewed. She describes colicky pain however CT scan does not show any findings to correlate for her symptoms. There is a stone in the lower pole of the left kidney with no signs of obstruction. It is plausible that perhaps the stone is moving intermittently but returning back to the kidney. This pain is not similar to her chronic left low back pain though it may very well be musculoskeletal in etiology as she is quite tender with minimal palpation. Urology was consulted by the ED physician and they recommend outpatient follow-up. She is being admitted for supportive care due to ongoing pain. While she endorses a fever last night, her WBC count is chronically elevated and she has been evaluated by Hematology as an outpatient. Her UA shows trace blood and is otherwise unremarkable thus we not continue antibiotics. Vital signs were reviewed and they are stable. Her home medications will resumed as appropriate. Findings and treatment plan were discussed with the patient. Questions were solicited and answered to satisfaction. The patient's medical management will be taken over by the hospitalist team in a.m. Quality VTE Prophylaxis VTE prophylaxis: mechanical ordered The patient has been admitted under observation status. Hospitalist MIPS Advance Care Plan I have confirmed that the patient's Advanced Care Plan is present, code status is documented, or surrogate decision maker is listed in patient medical record.: Yes Medication Reconciliation I have utilized all available resources to obtain, update and review the patients current medications (includes all prescriptions, OTC, herbals, cannabis, and nutritional supplements).: Yes
[2024-09-26 22:00] VITALS: BP 133/93; PULSE 87; RESP 18; TEMP 36.8; O2SAT 100
[2024-09-26] MEDS: traZODone HCL 50 MG TABLET PO (22:03)
[2024-09-27 05:43] LABS: Basophils Absolute Auto 0.1 K/mm3 (0.0-0.1); Basophils Percent Auto 0.5 % (0.2-1.2); Eosinophils Absolute Auto 0.1 K/mm3 (0-0.3); Eosinophils Percent Auto 0.6 % (0-4.4); Hemoglobin 14.3 g/dL (12.0-15.0); Immature Granulocyte Absolute 0.14 K/mm3 (0.00-0.031); Immature Granulocyte Percent A 0.7 % (0-0.5); Lymphocytes Absolute Auto 3.04 K/mm3 (0.9-3.2); Lymphocytes Percent Auto 15.9 % (18.3-44.2); Mean Corpuscular HGB Conc 33.3 g/dl (32-36); Mean Corpuscular Hemoglobin 31.6 pg (26-34); Mean Corpuscular Volume 95.1 fl (80-100); Monocytes Absolute Auto 0.9 K/mm3 (0.1-0.6); Monocytes Percent Auto 4.8 % (2.6-8.5); Neutrophils Absolute Auto 14.8 K/mm3 (1.3-6.7); Neutrophils Percent Auto 77.5 % (45.5-73.1); Platelet Count Result 234 k/mm3 (150-375); Red Blood Count 4.52 M/mm3 (4.2-5.4); Red Cell Distribution Width 14.1 % (11.5-14.5); White Blood Count 19.1 K/mm3 (4.5-10.0)
[2024-09-27] MEDS: HYDROmorphone HCL INJ (*CRX) 1 MG/ML SYR IV PUSH ×5 (05:43→20:36)
[2024-09-27 05:54] LABS: Alanine Aminotransferase 98 U/L (6-35); Albumin Level 3.7 g/dL (3.5-5.1); Alkaline Phosphatase 66 U/L (38-126); Anion Gap 6 mmol/L (4-12); Aspartate Amino Transferase 95 U/L (14-36); Bilirubin,Total 0.4 mg/dL (0.2-1.3); Blood Urea Nitrogen 6 mg/dL (7-17); Calcium 8.7 mg/dL (8.4-10.2); Carbon Dioxide 23 mmol/L (22-30); Chloride 108 mmol/L (98-107); Estimated CRCL calculation 112 ml/min; Estimated Glomerular Filt Rate > 60; Glucose 112 mg/dL (65-110); Potassium 4.3 mmol/L (3.4-5.0); Sodium 137 mmol/L (137-145)
[2024-09-27 06:00] VITALS: BP 105/67; PULSE 71; RESP 18; TEMP 36.7; O2SAT 100
[2024-09-27] MEDS: FLUTICASONE/SALMETEROL 115-21 MCG INHALER 1 PUFF 2 PUFF INHALATION (08:50)
[2024-09-27 08:54] VITALS: O2SAT 99
[2024-09-27] MEDS: DICYCLOMINE HCL 10 MG CAPSULE 20 MG PO ×3 (09:07→16:39)
[2024-09-27] MEDS: lisinopriL 10 MG TABLET PO (09:07)
[2024-09-27] MEDS: busPIRone HCL 5 MG TABLET 15 MG PO ×3 (09:07→16:40)
[2024-09-27 14:00] VITALS: BP 102/47; PULSE 81; RESP 16; TEMP 36.3; O2SAT 97
--- NOTE | 2024-09-27 16:15 | P.PNIM_ITS ---
Progress Note: A&P Assessment and Plan (1) Left renal stone: Code(s): N20.0 - Calculus of kidney Status: Acute Assessment and Plan: * CT 14mm Kidney stone within the kidney nonobstructing * Urology consulted no current intervention * UA clean * Pain control * IV fluids * Follow-up with Urology O/P (2) Elevated liver transaminase level: Code(s): R74.01 - Elevation of levels of liver transaminase levels Status: Acute Assessment and Plan: * Chronically elevated * Hepatitis panel negative 03/2024 (3) Leukocytosis: Qualifiers: Leukocytosis type: unspecified Qualified Code(s): D72.829 - Elevated white blood cell count, unspecified Code(s): D72.829 - Elevated white blood cell count, unspecified Status: Acute Assessment and Plan: * Chronically elevated * Will need to follow with Hematology outpatient * Family history * Check for autoimmune ESR, CRP, JAYCE Plan Code status: Full code per patient DVT prophylaxis: Lovenox Stress ulcer prophylaxis: Protonix 40 daily PT/OT notes: Ambulatory Disposition: Patient continues admission to the medical unit for renal colic after 14 mm kidney stone nonobstructing but continues to have renal pain will continue with pain control at this time plan for discharge in the a.m. and follow up with Urology outpatient. Time Spent With Patient Time with patient: 15 - 25 minutes Subjective Date/time seen: 09/27/24 16:15 Interval history: Patient is a 44-year-old female admitted to the medical unit for pain control due to 14 mm kidney stone 09/27/24: Assumed Care Patient still reporting moderate to severe left flank pain rebound tenderness but denies any further vomiting has some nausea and chills afebrile overnight. And partially due to placement of stone urology states no current intervention at this time. Review of Systems Review of Systems: All systems reviewed & are unremarkable except as noted in HPI and below Exam Narrative: Physical Exam: * GENERAL: Alert and oriented x 3. No acute distress. * EYES: EOMI. No scleral icterus. PERRLA. * HEENT: Moist mucous membranes. * LUNGS: Clear to auscultation bilaterally. No accessory muscle use. * CARDIOVASCULAR: Regular rate and rhythm. No murmur. No JVD. S1-S2 * ABDOMEN: Soft, non tenderness and non-distended. No palpable masses. CVA t enderness * EXTREMITIES: No edema. Non-tender * SKIN: No rashes or lesions. Skin warm, dry. * NEUROLOGIC: No focal neurological deficits. CN II-XII grossly intact * PSYCHIATRIC: Appropriate mood and affect. Good judgement and insight. No visual or auditory hallucinations. No suicidal or homicidal ideation at this time does have HX of suicidal attempt by metformin. Objective Data Vital Signs Vital Signs: Vital Signs - 24 hr 09/26/24 17:41 09/26/24 18:43 09/26/24 20:00 Temperature 98.3 F 98.2 F Pulse Rate 82 85 Respiratory Rate 16 16 Blood Pressure 121/89 131/82 Pulse Oximetry 98 99 Oxygen Delivery Room Air 09/26/24 22:00 09/27/24 06:00 09/27/24 08:54 Temperature 98.2 F 98.0 F Pulse Rate 87 71 Respiratory Rate 18 18 Blood Pressure 133/93 H 105/67 Pulse Oximetry 100 100 99 Oxygen Delivery Room Air 09/27/24 09:05 09/27/24 14:00 Temperature 97.4 F L Pulse Rate 81 Respiratory Rate 16 Blood Pressure 102/47 L Pulse Oximetry 97 Oxygen Delivery Room Air Intake/Output Intake/Output: Intake & Output 09/24/24 09/25/24 09/26/24 09/27/24 23:59 23:59 23:59 23:59 Intake Total 1100 1480 Output Total 75 700 Balance 1025 780 Meds/Results Medications: Active Medications Generic Name Dose Route Start Last Admin Trade Name Freq PRN Reason Stop Dose Admin Acetaminophen 650 mg 09/26/24 21:59 Acetaminophen 325 Mg Tablet PO Q6H PRN Mild Pain (1-3) or Fever Hydrocodone Bitart/Acetaminophen 1 tab 09/26/24 21:59 Hydrocodone/Acetaminophen (*Crx) 10-325 Mg Tablet PO Q6H PRN Pain 4-6 Buspirone HCl 15 mg 09/27/24 09:00 09/27/24 12:49 Buspirone Hcl 5 Mg Tablet PO 15 mg TID MAYO Administration Dicyclomine HCl 20 mg 09/27/24 09:00 09/27/24 12:49 Dicyclomine Hcl 10 Mg Capsule PO 20 mg TID [facility] Administration Hydromorphone HCl 1 mg 09/26/24 18:26 09/27/24 12:54 Hydromorphone Hcl Inj (*Crx) 1 Mg/Ml Syr IV PUSH 1 mg Q3H PRN Administration Pain Rated 7-10 Sodium Chloride 1,000 mls @ 75 mls/hr 09/27/24 16:10 Normal Saline Iv IV [id number] .[id number] [facility] Lisinopril 10 mg 09/27/24 09:00 09/27/24 09:07 Lisinopril 10 Mg Tablet PO 10 mg DAILY [facility] Administration Loratadine 10 mg 09/27/24 21:00 Loratadine 10 Mg Tablet PO QHS [facility] Non-Formulary Medication 100 mg 09/27/24 09:00 09/27/24 11:10 Eluxadoline [Viberzi] PO 10/27/24 08:59 Not Given BID [facility] Pantoprazole Sodium 40 mg 09/28/24 09:00 Pantoprazole 40 Mg Tablet PO QAM [facility] Fluticasone/Salmeterol 2 puff 09/27/24 08:00 09/27/24 08:50 Fluticasone/Salmeterol 115-21 Mcg Inhaler 1 Puff INHALATION 2 puff Q12HRT [facility] Administration Trazodone HCl 50 mg 09/26/24 21:41 09/26/24 22:03 Trazodone Hcl 50 Mg Tablet PO 50 mg HS PRN Administration Insomnia Radiology Results: ITS Impressions Abdomen/Pelvis CT 09/26/24 13:57 Impression: No acute abnormality evident. 14 mm left renal stone. Labs Labs: Laboratory Results - last 24 hr 09/27/24 05:35 WBC 19.1 H RBC 4.52 Hgb 14.3 Hct 43.0 MCV 95.1 MCH 31.6 MCHC 33.3 RDW 14.1 Plt Count 234 MPV 9.0 Immature Gran % (Auto) 0.7 H Neut % (Auto) 77.5 H Lymph % (Auto) 15.9 L Woods % (Auto) 4.8 Eos % (Auto) 0.6 Baso % (Auto) 0.5 Lymph # (Auto) 3.04 Woods # (Auto) 0.9 H Eos # (Auto) 0.1 Baso # (Auto) 0.1 Abs Immat Gran (auto) 0.14 H Absolute Neuts (auto) 14.8 H Absolute Nucleated RBC 0.000 Nucleated RBC % 0.0 Sodium 137 Potassium 4.3 Chloride 108 H Carbon Dioxide 23 Anion Gap 6 BUN 6 L Creatinine 0.50 L Estim Creat Clear Calc 112 Estimated GFR > 60 Glucose 112 H Calcium 8.7 Magnesium 2.0 Total Bilirubin 0.4 AST 95 H ALT 98 H Alkaline Phosphatase 66 Total Protein 7.0 Albumin 3.7 Quality VTE Prophylaxis VTE prophylaxis: pharmacologic ordered -Patient's previous records reviewed on admission -ER notes reviewed in detail on admission -discussed all findings and current treatment plan with patient/Family/POA -Consultations reviewed for recommendations -Patient's disposition for safe discharge discussed with machine adjuster leader case trim Dictation performed by [employer] direct speech recognition software, therefore telegraph lineman variants and typographical errors may occur. Hospitalist MIPS Advance Care Plan I have confirmed that the patient's Advanced Care Plan is present, code status is documented, or surrogate decision maker is listed in patient medical record.: Yes Medication Reconciliation I have utilized all available resources to obtain, update and review the patients current medications (includes all prescriptions, OTC, herbals, cannabis, and nutritional supplements).: Yes The patient is not eligible for med reconciliation; the patient is in a emergent medical situation where delaying treatment would jeopardize the patients heal th.: No
[2024-09-27] MEDS: SODIUM CHLORIDE 0.9% IV 1,000 ML 75 ML IV CONT (16:42)
[2024-09-27] MEDS: traZODone HCL 50 MG TABLET PO (20:36)
[2024-09-27] MEDS: LORATADINE 10 MG TABLET PO (20:36)
[2024-09-27 22:11] VITALS: BP 91/44; PULSE 69; RESP 16; TEMP 36.6; O2SAT 98
[2024-09-28] MEDS: HYDROmorphone HCL INJ (*CRX) 1 MG/ML SYR IV PUSH ×3 (02:11→09:09)
[2024-09-28] MEDS: SODIUM CHLORIDE 0.9% IV 1,000 ML 75 ML IV CONT (05:51)
[2024-09-28 05:56] VITALS: BP 111/71; PULSE 73; RESP 14; TEMP 36.6; O2SAT 99
[2024-09-28 06:11] LABS: CRP < 0.5 mg/dL (<1.0)
[2024-09-28 06:24] LABS: Erythrocyte Sedimentation Rate 19 mm/hr (0-20)
[2024-09-28 07:08] VITALS: PULSE 72; RESP 18; O2SAT 98
[2024-09-28] MEDS: FLUTICASONE/SALMETEROL 115-21 MCG INHALER 1 PUFF 2 PUFF INHALATION (07:08)
[2024-09-28 07:34] LABS: Hemoglobin 13.6 g/dL (12.0-15.0); Mean Corpuscular Hemoglobin 32.7 pg (26-34); Mean Corpuscular Volume 96.2 fl (80-100); Mean Platelet Volume 9.9 fl (7.4-10.4); Platelet Count Result 226 k/mm3 (150-375); Red Blood Count 4.16 M/mm3 (4.2-5.4); Red Cell Distribution Width 14.3 % (11.5-14.5); White Blood Count 17.2 K/mm3 (4.5-10.0)
[2024-09-28 07:41] LABS: Alanine Aminotransferase 71 U/L (6-35); Albumin Level 3.5 g/dL (3.5-5.1); Alkaline Phosphatase 54 U/L (38-126); Anion Gap 6 mmol/L (4-12); Aspartate Amino Transferase 47 U/L (14-36); Bilirubin,Total 0.2 mg/dL (0.2-1.3); Blood Urea Nitrogen 7 mg/dL (7-17); Calcium 8.8 mg/dL (8.4-10.2); Carbon Dioxide 23 mmol/L (22-30); Chloride 108 mmol/L (98-107); Estimated CRCL calculation 93 ml/min; Estimated Glomerular Filt Rate > 60; Glucose 110 mg/dL (65-110); Potassium 4.6 mmol/L (3.4-5.0); Sodium 137 mmol/L (137-145)
[2024-09-28] MEDS: PANTOPRAZOLE 40 MG TABLET PO (09:12)
[2024-09-28] MEDS: busPIRone HCL 5 MG TABLET 15 MG PO (09:12)
[2024-09-28] MEDS: DICYCLOMINE HCL 10 MG CAPSULE 20 MG PO (09:12)
--- NOTE | 2024-09-28 11:00 | P.DS_ITS ---
DS: Admitting Diagnosis Discharge Date 09/28/2024 Admitting Diagnosis CVA pain/LT kidney stone DS: Discharge Diagnosis Discharge Diagnosis (1) Left renal stone: Code(s): N20.0 - Calculus of kidney Status: Acute (2) Elevated liver transaminase level: Code(s): R74.01 - Elevation of levels of liver transaminase levels Status: Acute (3) Leukocytosis: Qualifiers: Leukocytosis type: unspecified Qualified Code(s): D72.829 - Elevated white blood cell count, unspecified Code(s): D72.829 - Elevated white blood cell count, unspecified Status: Acute Plan Disposition: Discharge to home DS: Summary Hospital Course Reason for hospitalization: CVA pain/LT kidney stone Hospital Course: patient was a 44-year-old female with history of kidney stones and chronic lower back pain, IBS, diarrhea, hypertension, PCOS, and depression with suicidal attempt initially presented to the emergency department with complaints of left flank pain she has had multiple admissions due to left flank pain. Upon evaluation patient had CT abdomen which showed a 14 mm kidney stone in the left kidney nonobstructing urology had been called for evaluation however at this time they said there was no indication for surgical intervention. urinalysis showed no source infection patient did report she was having fevers at however during her admission she remained afebrile. She was initially admitted for pain control. patient was found to chronic leukocytosis which did trend down during her admission her ESR and CRP were negative JAYCE pending to evaluate for any autoimmune did encourage patient to follow-up with hematology outpatient. patient still with mild CVA pain which was tolerable. patient with no other complaints and tolerating oral intake patient was discharged to home some pain control, Toradol with recommendation to follow-up with primary care physician, Urology and Hematology outpatient. Status at Discharge Functional status at discharge: independent ambulation Overall status at discharge: patient is progressing back to baseline Time Spent with Patient Time attestation: Total time spent providing and/or coordinating discharge services: Time spent: Greater than 30 minutes Exam Narrative: Physical Exam: * GENERAL: Alert and oriented x 3. No acute distress. * EYES: EOMI. No scleral icterus. PERRLA. * HEENT: Moist mucous membranes. * LUNGS: Clear to auscultation bilaterally. No accessory muscle use. * CARDIOVASCULAR: Regular rate and rhythm. No murmur. No JVD. S1-S2 * ABDOMEN: Soft, non tenderness and non-distended. No palpable masses. CVA tenderness * EXTREMITIES: No edema. Non-tender * SKIN: No rashes or lesions. Skin warm, dry. * NEUROLOGIC: No focal neurological deficits. CN II-XII grossly intact * PSYCHIATRIC: Appropriate mood and affect. Good judgement and insight. No visual or auditory hallucinations. No suicidal or homicidal ideation at this time does have HX of suicidal attempt by metformin. DS: Data Data Completed and Pending Labs on day of discharge: Labs from last 24 hours 09/28/24 05:33 WBC 17.2 H RBC 4.16 L Hgb 13.6 Hct 40.0 MCV 96.2 MCH 32.7 MCHC 34.0 RDW 14.3 Plt Count 226 MPV 9.9 ESR 19 Sodium 137 Potassium 4.6 Chloride 108 H Carbon Dioxide 23 Anion Gap 6 BUN 7 Creatinine 0.60 L Estim Creat Clear Calc 93 Estimated GFR > 60 Glucose 110 Calcium 8.8 Total Bilirubin 0.2 AST 47 H ALT 71 H Alkaline Phosphatase 54 C-Reactive Protein < 0.5 Total Protein 6.0 L Albumin 3.5 JAYCE Screen Pending Preliminary micro results at discharge 09/26/24 17:43 Blood Culture - Preliminary Blood 09/26/24 17:43 Blood Culture - Preliminary Blood Imaging Radiologist's impression: Radiology Results: ITS Impressions Abdomen/Pelvis CT 09/26/24 13:57 Impression: No acute abnormality evident. 14 mm left renal stone. Discharge Plan Discharge Attending physician on discharge: Atilio Klein Discharging Clinician: Leta Sierra Anticipated Discharge Date/Time: 09/28/24 10:46 Patient Disposition: Home, Self-Care Activity: may shower, unlimited and as tolerated Diet: diabetic Discharge Instructions: You are being discharged to home after being treated for [id number] pain and found to have a 14 mm kidney stone. At this time the kidney stone is nonobstructing and no need for surgical intervention during your stay. your urine showed no infection plan will be to follow-up with urology in their office and close monitoring of kidney stone. if symptoms worsen you develop a fever difficulty urinating please seek medical attention. I have prescribed some oral pain medication which can cause a sedative effect as well as constipation I encourage oral hydration and activity. it was noted that you do have an elevated white count which is shown to be chronic I did complete testing for autoimmune disease such as lupus however your JAYCE lab is still pending but can be followed up with your primary. I encourage you to follow-up with a teaching manager outpatient for further evaluation at time of discharge her white count had improved and there was no infectious process found infectious process found. please review attached education regarding kidney stones limit your caffeine intake and increase water intake. How can you care for yourself at home? ? Keep track of any new symptoms or changes in your symptoms. ? Rest until you feel better. ? Be safe with medicines. Take your medicines exactly as prescribed. Call your doctor if you think you are having a problem with your medicine. ? Do not drive after taking a prescription pain medicine. ? Ensure to follow-up with primary care physician as indicated and provide updated medication list provided to you at discharge. When should you call for help? Call 911 anytime you think you may need emergency care. For example, call if: ? You passed out (lost consciousness). Call your doctor now or seek immediate medical care if: ? You have new symptoms like fever, difficulty breathing, Chest pain, vomiting, or rash. ? You have new or different pain. ? You are confused and are having trouble thinking clearly. ? Your symptoms are getting worse. Watch closely for changes in your health, and be sure to contact your doctor if: ? You do not get better as expected. Patient Instructions: Antibiotic Form, Kidney Stones (DC), Leukocytosis (DC) Patient Language: Barbadian Stand Alone Forms: General Discharge Information, Work/School Release IP Follow-up/Referrals: Lamont Doyle MD [Physician] - Call for Appointment (Follow-up for chronic elevated white count) Sher Mattson MD [Physician] - Call for Appointment UNKNOWN,DOCTOR [Primary Care Provider] - 2 Weeks (Please follow-up with primary care physician) Discharge Medications: New ketorolac 10 mg tablet 10 mg PO Q6H PRN (Reason: pain) Qty: 20 0RF Rx Instructions: maximum total duration of 5 days from all oral, intranasal, or parenteral formulations Continued fluticasone propion-salmeterol 250-50 mcg/dose blister with device 1 ea INHALATION BID dicyclomine 20 mg tablet 20 mg PO TID lisinopril 10 mg tablet 10 mg PO DAILY metformin 500 mg tablet extended release 24 hr 500 mg PO BID Viberzi 100 mg tablet 100 mg PO BID buspirone 15 mg tablet 15 mg PO TID hydrocodone-acetaminophen 10-325 mg tablet 1 tablet PO Q6H PRN (Reason: Pain) Qty: 20 0RF levocetirizine [Xyzal] 5 mg Tablet 5 mg PO HS PRN (Reason: Congestion) Discontinued ibuprofen 600 mg tablet 600 mg PO Q6H PRN (Reason: pain) Qty: 14 0RF Date of admission: 09/26/24 16:30 Primary Care Provider: UNKNOWN,DOCTOR Admitting Provider: Ryan Tay Attending physician on admission: Leta Sierra Condition: Stable Quality VTE Prophylaxis VTE prophylaxis: pharmacologic ordered -Patient's previous records reviewed on admission -ER notes reviewed in detail on admission -discussed all findings and current treatment plan with patient/Family/POA -Consultations reviewed for recommendations -Patient's disposition for safe discharge discussed with binder caser Dictation performed by [employer] direct speech recognition software, therefore dining services director variants and typographical errors may occur. Hospitalist MIPS Heart Failure (Exclusion) Patient has history of Heart Transplant or Left Ventricular Assistive Device?: No IF YES, STOP HERE Heart Failure (Qualifier) Patient has current or prior documentation of LVEF less than or equal to 40%, or mod/servere depressed LVSF?: No IF NO, STOP HERE
== END 2024-09-28 11:08 | disposition home or self-care (01) ==
LOC: ANHED 16:28 → ANH2MED 09-27 11:51
PROVIDERS: Physician Assistant; Registered Nurse; Admitting Provider General Practice; Emergency Provider Emergency Medicine; Visit Provider Nurse Practitioner Family
DX: N20.0 Calculus of kidney (principal); R74.01 Elevation of levels of liver transaminase levels; D72.829 Elevated white blood cell count, unspecified; I10 Essential (primary) hypertension; E28.2 Polycystic ovarian syndrome; J45.909 Unspecified asthma, uncomplicated; F17.200 Nicotine dependence, unspecified, uncomplicated; E78.5 Hyperlipidemia, unspecified; K58.0 Irritable bowel syndrome with diarrhea; F32.A Depression, unspecified; M51.16 Intervertebral disc disorders with radiculopathy, lumbar region; G89.29 Other chronic pain; Z98.1 Arthrodesis status; Z87.442 Personal history of urinary calculi; Z79.84 Long term (current) use of oral hypoglycemic drugs; Z79.51 Long term (current) use of inhaled steroids; Z79.899 Other long term (current) drug therapy; Z90.49 Acquired absence of other specified parts of digestive tract; Z91.51 Personal history of suicidal behavior
CPT/HCPCS: 36415; 74177; 80053; 81001; 81025; 83690; 83735; 85025; 85027; 85652; 86038; 86039; 86140; 87040; 94640; 96361; 96365; 96375; 96376; 99285; A9270; G0378; J0696; J1171; J1885; J2270; J7030; Q9967

== ENCOUNTER 2024-10-02 10:55 | Emergency (ER) | payer BC, SELFPAY ==
--- NOTE | ~2024-10-02 | CT_ITS ---
CLINICAL INDICATION: Left flank pain COMPARISON: Examination is compared with multiple prior studies performed most recently on 09/26/2024 and dating back to 02/14/2024. TECHNIQUE: Multiple contiguous axial images of the abdomen and pelvis were performed without the admi nistration of intravenous contrast The dose-length product (DLP) was 227.66 mGy-cm. Automated exposure control and iterative reconstruction technique were employed. FINDINGS/OBSERVATIONS: Visualized lower thorax: The bilateral lung bases are clear. The heart is of normal size, without pericardial effusion. Small hiatal hernia is present. Liver: The liver demonstrates homogeneous attenuation and is borderline enlarged measuring 19 cm in longitud inal dimension. Gallbladder and biliary system: The gallbladder is surgically absent. Pancreas: Limited evaluation of the pancreas secondary to the lack of intravenous contrast. Spleen: The spleen demonstrates homogeneous attenuation and is not enlarged measuring 9 cm in longitudinal di mension. Kidneys: Bulky nonobstructing calculi detected within the bilateral kidneys. The largest on the right is located within the lower pole measuring 8 mm. The largest on the left, also within the lower pole, measures 16 mm. This stone is unchanged from 07/22. Mild left-sided hydronephrosis without an obstructing stone identified. This appearance is similar to most recent CT examination dated 09/26/2024 and dating back to . Adrenal glands: Unremarkable. Gastrointestinal tract: Fecal stasis within the colon. Appendix: Surgically absent. Vasculature: Calcified atherosclerotic disease, far advanced for patient of this age. Lymph nodes: No pathologically enlarged or morphologically suspicious lymph nodes within the retroperitoneum or at the root of the mesentery. Pelvic structures: The bladder is distended, with irregular attenuation at the left ureterovesicular junction for which direct visualization is recommended. The uterus is anteverted and anteflexed, and otherwise unremarkable. The bilateral ovaries are enlarged, consistent with patient's history of PCOS Body wall and musculoskeletal: Small fat-containing umbilical hernia. Trace degenerative disease within the lumbosacral spine, most prominent at the level of L4/L5. IMPRESSION: Bilateral enlarged nonobstructing stones, unchanged from 07/22/2024. Mild left-sided hydroureteronephrosis without an obstructing stone identified. This appearance is unc hanged dating back to 08/31/2024. Indeterminate attenuation within the bladder at the left UVJ for which direct visualization is recomm ended. Reviewed, dictated and finalized at location A. GER UTILIZATION REVIEW IMPRESSION: Bilateral enlarged nonobstructing stones, unchanged from 07/22/2024. Mild left-sided hydroureteronephrosis without an obstructing stone identified. This appearance is unchanged dating back to 08/31/2024. Indeterminate attenuation within the bladder at the left UVJ for which direct v isualization is recommended.
[2024-10-02 11:19] VITALS: BP 114/69; PULSE 89; RESP 14; TEMP 36.6; O2SAT 99
[2024-10-02 12:54] VITALS: BP 110/79; PULSE 81; RESP 14; O2SAT 99
[2024-10-02 14:47] VITALS: BP 144/95; PULSE 85; RESP 20; O2SAT 100
--- NOTE | 2024-10-02 15:04 | ED.ABDPAIN ---
HPI - Abdominal Pain General Chief Complaint: Abdominal Pain Stated Complaint: left flank pain, N/V, (had 14mm stone last week) Time Seen by Provider: 10/02/24 15:02 Source: patient Mode of arrival: ambulatory Limitations: no limitations History of Present Illness HPI narrative: 44 YEARS OLD WHITE FEMALE CAME TO THE ED COMPLAINING OF LEFT FLANK PAIN RADIATING TO LEFT LOWER QUADRANT STARTED FEW DAYS AGO, WAS HOSPITALIZED FOR 14 MM KIDNEY STONE, DISCHARGED 4 DAYS AGO, NEVER BEEN PAIN FREE, PAIN GOT WORSE OVER THE LAST 4 DAYS ASSOCIATED WITH NAUSEA. SHE DENIES ANY FEVER OR CHILLS OR VOMITING. Related Data Home Medications Medication Instructions Recorded Confirmed dicyclomine 20 mg tablet 20 mg PO TID 02/14/24 09/26/24 eluxadoline 100 mg tablet (Viberzi) 100 mg PO BID 02/14/24 09/26/24 fluticasone 250 mcg-salmeterol 50 1 ea inhalation BID 02/14/24 09/26/24 mcg/dose blistr powdr for inhalation lisinopril 10 mg tablet 10 mg PO DAILY 02/14/24 09/26/24 metformin 500 mg tablet,extended 500 mg PO BID 02/14/24 09/26/24 release 24 hr levocetirizine 5 mg tablet (Xyzal) 5 mg PO HS PRN Congestion 03/31/24 09/26/24 buspirone 15 mg tablet 15 mg PO TID 09/26/24 09/26/24 Allergies Allergy/AdvReac Type Severity Reaction Status Date / Time No Known Allergies Allergy Verified 09/26/24 18:52 Review of Systems Review of Systems: All systems reviewed & are unremarkable except as noted in HPI and below PMFSH Past Medical History Medical History Asthma Chronic pain r/t sciatica and L4/L5/L6 protruding Hyperlipidemia Hypertension Irritable bowel syndrome with diarrhea Lactic acid acidosis Polycystic ovarian syndrome Surgical History Surgical History History of appendectomy History of cervical spinal surgery (03/08/23) anterior cervical discectomy and fusion History of cholecystectomy Family History Family History Father Hypertension Patient's father is in good health Cerebrovascular accident Family history of heart disease in male family member before age 55 Mother Patient's mother is in good health Family history of diabetes mellitus in first degree relative Sibling Family history of diabetes mellitus in first degree relative Social History Social History Social History: Surrogate medical decision maker: Chinmay Muñoz, spouse ([phone]). Code status: Full code. Smoking packs per day: 1 Smoking cigarettes per day: 20.0 Years smoked: 30 Smoking pack-years: 30.00 Smoking status: Current every day smoker Tobacco type: cigarettes Second hand tobacco smoke exposure: Yes Alcohol intake: never Alcohol use details: rarely drinks, a couple time a month Substance use: current Substance use type: marijuana Last use: 09/25/2024 Do You Feel Safe in your Home?: Yes Lack of Transportation: No Lack of Food: Never True Current Housing: I Have Housing Concerned About Future Housing: No Difficulty Paying Gas/Electric Bills: No Difficulty Paying for Meds: No Currently Unemployed: No Education: Grade School Difficulty w/ Childcare or Family Care: No Living arrangements: with family Additional living arrangements comments: Lives with father and . 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 Spiritual care concerns: No Agree to blood products: Yes Exam Narrative: GENERAL APPEARANCE: WELL-DEVELOPED, WELL-NOURISHED SKIN: NORMAL COLOR HEAD: NORMOCEPHALIC, NONTRAUMATIC EYES: CLEAR CONJUNCTIVA ENT: OROPHARYNX NORMAL, EARS NORMAL, NOSE NORMAL NECK: SUPPLE, NONTENDER CHEST AND RESPIRATORY: AIRWAY PATENT, NO RESPIRATORY DISTRESS, NO ACCESSORY MUSCLE USE HEART: REGULAR RATE/RHYTHM ABDOMEN: SOFT, MILD TENDERNESS LEFT LOWER QUADRANT AND LEFT FLANK AREA, NO BRUISES OR RASH VASCULAR: NORMAL PERIPHERAL PULSES, NORMAL CAPILLARY REFILL. MUSCULOSKELETAL: NORMAL RANGE OF MOTION, NONTENDER BACK NEUROLOGIC: ALERT AND ORIENTED ?3, COMMUNICATIONS SENIOR ASSOCIATE IS NORMAL TESTED, NO GROSS MOTOR DEFICIT Course Vital Signs Vital signs: Vital Signs Temperature 36.6 C 10/02/24 11:19 Pulse Rate 89 10/02/24 11:19 Respiratory Rate 14 10/02/24 11:19 Blood Pressure 114/69 10/02/24 11:19 Pulse Oximetry 99 10/02/24 11:19 Oxygen Delivery Room Air 10/02/24 11:19 Temperature 36.6 C 10/02/24 11:19 Pulse Rate 86 10/02/24 16:26 Respiratory Rate 18 10/02/24 16:26 Blood Pressure 112/66 10/02/24 16:26 Pulse Oximetry 100 10/02/24 16:26 Oxygen Delivery Room Air 10/02/24 11:19 MDM - Abdominal Pain MDM Narrative Medical decision making narrative: PATIENT CAME WITH LEFT LOWER QUADRANT AND LEFT FLANK PAIN BEEN GOING FOR A WHILE, VITAL SIGNS ARE STABLE PHYSICAL EXAMINATION SHOWED MILD TENDERNESS LEFT LOWER QUADRANT AND LEFT FLANK AREA DIFFERENTIAL DIAGNOSIS INCLUDE URINARY TRACT INFECTION, URETEROLITHIASIS, CONSTIPATION, DIVERTICULITIS, COLITIS, MALIGNANCY. BLOOD WORKUP TODAY INCLUDE CBC, CMP SHOWED WBC OF 18.5 WHICH HAS BEEN ELEVATED SINCE 2023 URINALYSIS SHOWED EVIDENCE OF INFECTION CT ABDOMEN AND PELVIS WITHOUT CONTRAST SHOWED BILATERAL NONOBSTRUCTIVE STONES ON CHANGE FROM 2023, LEFT-SIDED HYDRONEPHROSIS WITHOUT AN OBSTRUCTING STONE IDENTIFIED THIS APPEARANCE AND CHANGE DATING BACK TO AUGUST 31, 2024 INDETERMINATE ATTENUATION WITHIN THE BLADDER AT THE LEFT UVJ FOR WHICH DIRECT VISUALIZATION IS RECOMMENDED. MY PLAN TO DISCHARGE PATIENT ON ANTIBIOTIC, FLOMAX, NORCO AND IBUPROFEN TO FOLLOW UP WITH UROLOGIST. Differential Diagnosis Differential diagnosis: Likely other ( ABOVE.) Medical Records Attestation: I reviewed the patient's medical records. Lab Data Attestation: I reviewed the patient's lab results. 10/02/24 15:34 10/02/24 15:34 Labs: Lab Results 10/02/24 10/02/24 Range/Units 15:32 15:34 WBC 18.5 H (4.5-10.0) K/mm3 RBC 5.12 (4.2-5.4) M/mm3 Hgb 16.5 H (12.0-15.0) g/dL Hct 48.5 H (37.0-47.0) % MCV 94.7 (80-100) fl MCH 32.2 (26-34) pg MCHC 34.0 (32-36) g/dl RDW 14.1 (11.5-14.5) % Plt Count 286 (150-375) k/mm3 MPV 10.0 (7.4-10.4) fl Immature Gran % (Auto) 0.5 (0-0.5) % Neut % (Auto) 78.1 H (45.5-73.1) % Lymph % (Auto) 15.3 L (18.3-44.2) % [place] % (Auto) 4.6 (2.6-8.5) % Eos % (Auto) 1.0 (0-4.4) % Baso % (Auto) 0.5 (0.2-1.2) % Lymph # (Auto) 2.83 (0.9-3.2) K/mm3 [place] # (Auto) 0.9 H (0.1-0.6) K/mm3 Eos # (Auto) 0.2 (0-0.3) K/mm3 Baso # (Auto) 0.1 (0.0-0.1) K/mm3 Abs Immat Gran (auto) 0.09 H (0.00-0.031) K/mm3 Absolute Neuts (auto) 14.5 H (1.3-6.7) K/mm3 Absolute Nucleated RBC 0.000 (0.0-0.012) K/mm3 Nucleated RBC % 0.0 (0.0-0.2) % Sodium 137 (137-145) mmol/L Potassium 4.2 (3.4-5.0) mmol/L Chloride 101 (98-107) mmol/L Carbon Dioxide 26 (22-30) mmol/L Anion Gap 10 (4-12) mmol/L BUN 9 (7-17) mg/dL Creatinine 0.60 L (0.7-1.0) mg/dL Estim Creat Clear Calc 92 ml/min Estimated GFR > 60 (59 - ) Glucose 128 H (65-110) mg/dL Calcium 9.8 (8.4-10.2) mg/dL Total Bilirubin 0.5 (0.2-1.3) mg/dL AST 52 H (14-36) U/L ALT 110 H (6-35) U/L Alkaline Phosphatase 81 (38-126) U/L Total Protein 9.0 H (6.3-8.2) g/dL Albumin 4.9 (3.5-5.1) g/dL Lipase 83 (23-300) U/L Urine Color Yellow (Yellow) Urine Appearance Clear (Clear) Urine pH 6.5 (5.0-9.0) Ur Specific [place] 1.019 (1.001-1.035) Urine Protein Negative (Negative) mg/dL Urine Glucose (UA) Negative (Negative) mg/dL Urine Ketones Negative (Negative) mg/dL Ur Blood (Man) Negative (Negative) Urine Nitrate Negative (Negative) Urine Bilirubin Negative (Negative) Urine Urobilinogen 0.2 (<2.0) mg/dL Add Ur Microanalysis Reviewed Leukocyte Esterase Rfl 2+ H (Negative) JOY/UL Urine RBC 6-10 H (0-2) /hpf Urine WBC 11-20 H (0-3) /hpf Ur Squamous Epith Cells Few (Few) /hpf Urine Bacteria None seen /hpf Urine Casts 0-2 Urine Yeast (Budding) Present H (None) /hpf POC Urine HCG, Qual Negative (Negative) Imaging Data Radiologist's impression: ITS Impressions Abdomen/Pelvis CT 10/02/24 16:00 IMPRESSION: Bilateral enlarged nonobstructing stones, unchanged from 07/22/2024. Mild left-sided hydroureteronephrosis without an obstructing stone identified. This appearance is unchanged dating back to 08/31/2024. Indeterminate attenuation within the bladder at the left UVJ for which direct visualization is recommended. Critical Care Time Critical Care Time Critical Care Time: Yes Total Critical Care Time: 30 Discharge Plan Discharge Clinical Impression: Chronic flank pain, Bilateral kidney stones, H/O leukocytosis, Urinary tract infection Patient Disposition: Home, Self-Care Condition: Stable Instructions: Antibiotic Form, Kidney Stones (ED), Urinary Tract Infection in Women (DC), Flank Pain (ED) Additional Instructions: RETURN IF SYMPTOMS ARE WORSENING , CALL YOUR FAMILY PHYSICIAN FOR APPOINTMENT, TAKE TYLENOL NEEDED FOR ACHES AND PAIN, CONTINUE HOME MEDICATIONS. Prescriptions: New ciprofloxacin HCl [Cipro] 500 mg tablet 500 mg PO Q12H Qty: 14 0RF ondansetron HCl 4 mg tablet 4 mg PO Q4H Qty: 10 0RF Rx Instructions: 1st dose 1-2 hr before radiation tamsulosin [Flomax] 0.4 mg capsule 0.4 mg PO DAILY Qty: 10 0RF No Action fluticasone propion-salmeterol 250-50 mcg/dose blister with device 1 ea INHALATION BID dicyclomine 20 mg tablet 20 mg PO TID lisinopril 10 mg tablet 10 mg PO DAILY metformin 500 mg tablet extended release 24 hr 500 mg PO BID Viberzi 100 mg tablet 100 mg PO BID buspirone 15 mg tablet 15 mg PO TID ketorolac 10 mg tablet 10 mg PO Q6H PRN (Reason: pain) Qty: 20 0RF Rx Instructions: maximum total duration of 5 days from all oral, intranasal, or parenteral formulations hydrocodone-acetaminophen 10-325 mg tablet 1 tablet PO Q6H PRN (Reason: Pain) Qty: 20 0RF levocetirizine [Xyzal] 5 mg Tablet 5 mg PO HS PRN (Reason: Congestion) Follow-up/Referrals: Gabino iPneda MD [Physician] - 10/06/24 UNKNOWN,DOCTOR [Primary Care Provider] - Stand Alone Forms: Work/School Release IP
[2024-10-02 15:35] LABS: BEDSIDEPREGUCG Negative (Negative)
[2024-10-02] MEDS: HYDROmorphone HCL INJ (*CRX) 1 MG/ML SYR 0.5 MG IV PUSH (15:35)
[2024-10-02] MEDS: SODIUM CHLORIDE 0.9% IV 1,000 ML 999 ML IV CONT (15:36)
[2024-10-02] MEDS: ONDANSETRON INJ 4 MG/2 ML VIAL IV PUSH (15:36)
[2024-10-02] MEDS: TAMSULOSIN HCL 0.4 MG CAPSULE PO (15:41)
[2024-10-02 15:43] LABS: Basophils Absolute Auto 0.1 K/mm3 (0.0-0.1); Basophils Percent Auto 0.5 % (0.2-1.2); Eosinophils Absolute Auto 0.2 K/mm3 (0-0.3); Hematocrit 48.5 % (37.0-47.0); Hemoglobin 16.5 g/dL (12.0-15.0); Immature Granulocyte Absolute 0.09 K/mm3 (0.00-0.031); Immature Granulocyte Percent A 0.5 % (0-0.5); Lymphocytes Absolute Auto 2.83 K/mm3 (0.9-3.2); Lymphocytes Percent Auto 15.3 % (18.3-44.2); Mean Corpuscular Hemoglobin 32.2 pg (26-34); Mean Corpuscular Volume 94.7 fl (80-100); Monocytes Absolute Auto 0.9 K/mm3 (0.1-0.6); Monocytes Percent Auto 4.6 % (2.6-8.5); Neutrophils Absolute Auto 14.5 K/mm3 (1.3-6.7); Neutrophils Percent Auto 78.1 % (45.5-73.1); Platelet Count Result 286 k/mm3 (150-375); Red Blood Count 5.12 M/mm3 (4.2-5.4); Red Cell Distribution Width 14.1 % (11.5-14.5); White Blood Count 18.5 K/mm3 (4.5-10.0)
[2024-10-02 15:54] LABS: Alanine Aminotransferase 110 U/L (6-35); Albumin Level 4.9 g/dL (3.5-5.1); Alkaline Phosphatase 81 U/L (38-126); Anion Gap 10 mmol/L (4-12); Aspartate Amino Transferase 52 U/L (14-36); Bilirubin,Total 0.5 mg/dL (0.2-1.3); Blood Urea Nitrogen 9 mg/dL (7-17); Calcium 9.8 mg/dL (8.4-10.2); Carbon Dioxide 26 mmol/L (22-30); Chloride 101 mmol/L (98-107); Estimated CRCL calculation 92 ml/min; Estimated Glomerular Filt Rate > 60; Glucose 128 mg/dL (65-110); Lipase 83 U/L (23-300); Potassium 4.2 mmol/L (3.4-5.0); Sodium 137 mmol/L (137-145)
[2024-10-02 16:26] VITALS: BP 112/66; PULSE 86; RESP 18; O2SAT 100
[2024-10-02 17:38] LABS: Add Urine Microscopic? YES; Appearance Urine Clear (Clear); Bacteria Urine None Seen /hpf; Bilirubin Urine Negative (Negative); Blood Urine Negative (Negative); Budding Yeast Urine Present /hpf; Color Urine Yellow (Yellow); Glucose Urine UA Negative (Negative); Ketones Urine Negative (Negative); Leukocyte Esterase Ur 2+ LEU/UL (Negative); Need Manual Microscopic Reviewed; Nitrate Urine Negative (Negative); Non Pathogenic Casts 0-2; Protein Urine Negative (Negative); Specific Grav Ur 1.019 (1.001-1.035); Squamous Epithelial Cell Urine Few /hpf (Few); Urobilinogen Urine 0.2 mg/dL (<2.0); pH Urine 6.5 (5.0-9.0)
[2024-10-02 18:00] VITALS: BP 110/76; PULSE 89; RESP 18; O2SAT 98
[2024-10-02] MEDS: KETOROLAC 30 MG/ML VIAL (*BKC) IV PUSH (18:09)
== END 2024-10-02 18:40 | disposition home or self-care (01) ==
PROVIDERS: Emergency Provider Emergency Medicine
DX: N20.0 Calculus of kidney (principal); N39.0 Urinary tract infection, site not specified; J45.909 Unspecified asthma, uncomplicated; E78.5 Hyperlipidemia, unspecified; I10 Essential (primary) hypertension; F17.210 Nicotine dependence, cigarettes, uncomplicated
CPT/HCPCS: 36415; 74176; 80053; 81001; 81025; 83690; 85025; 87086; 96361; 96365; 96375; 99284; A9270; J0696; J1171; J1885; J2405; J7030

== ENCOUNTER 2024-10-15 05:34 | Inpatient (IN) | payer BC, SELFPAY ==
[2024-10-15] VITALS (18 sets, daily range): BP systolic 92–173; BP diastolic 58–95; PULSE 74–100; RESP 12–20; TEMP 36.3–36.8; O2SAT 97–100; BMI 31.4
--- NOTE | ~2024-10-15 | XR_ITS ---
Portable chest x-ray Comparison: 03/29/2024 Clinical History: Fever, leukocytosis Findings: Lungs are clear, without focal consolidation or pleural effusion. Cardiomediastinal silho uette is stable. Stable cervical spine fixation hardware. Impression: Clear lungs. Reviewed, dictated and finalized at [facility]. 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
--- NOTE | ~2024-10-15 | CT_ITS ---
CT abdomen pelvis wo con Ordering provider: Gabino Pineda MD History: 44 years Female with . left kidney stone, severe flank pain. . Comparison: None. Technique: CT abdomen and pelvis without IV and without oral contrast. Automated exposure control and iterative reconstruction technique were employed. The dose-length product was 240.31 mGy-cm. Findings: VISUALIZED LOWER CHEST: Dependent atelectatic changes. Subsegmental atelectasis in the left lung base .. UPPER ABDOMINAL ORGANS: Liver: Normal. Gallbladder: Status post cholecystectomy. Spleen: Normal. Stomach/duodenum: Normal. Pancreas: Normal. Adrenals: Normal. Kidneys: tiny stone in the left kidney upper pole. Right kidney lower pole measuring 4 mm. Stone als o seen in the left kidney lower pole measuring 1.2 cm. Right double-J stent seen with the proximal po rtion in the right renal pelvis and distally in the bladder. PELVIC ORGANS: The bladder is underfilled. Uterus: Normal. Slightly prominent left ovary measuring 5.1 x 2.6 cm. The glenohumeral right measures 4 x 2.2 cm BOWEL AND MESENTERY: Colon: No evidence of diverticulitis. Fecal material is loaded in the colon suggestive of constipatio n.Appendix is not demonstrated with no inflammatory changes in the right lower quadrant. Small Bowel: Normal. No obstruction. Peritoneum/mesentery: No free air or free fluid. No mesenteric lymphadenopathy. RETROPERITONEUM: Mild atheromatous disease of the abdominal aorta. No retroperitoneal lymphadenopat hy. MUSCULOSKELETAL: Superficial soft tissues: The superficial soft tissues are normal. Bones: Age appropriate degenerative changes of the spine. IMPRESSION: 1. Bilateral kidney stones with the right double-J stent. 2. Slightly prominent ovaries. Clinical correlation and follow-up advised. 3. Constipation. Reviewed, dictated and finalized at location A. O INSTALLER
--- NOTE | ~2024-10-15 | XR_ITS ---
XR abdomen/kub 1V Ordering provider: Rick Torres MD History: . R sided stone . Comparison: None. FINDINGS: BOWEL: Nonobstructive bowel gas pattern. ORGANOMEGALY: None. SIGNIFICANT PATHOLOGIC CALCIFICATIONS: Contrast is seen in both kidneys. Hydronephrotic changes seen in the right kidney. Dilatation of the right ureter is seen above the lumbosacral area. The distal ri ght ureter is smaller caliber. Contrast is also seen in the urinary bladder. OTHER: No free air is seen under the diaphragm. IMPRESSION: Hydronephrotic changes in the right kidney and ureter with dilated ureter above the lumbosacral area. Definite stones is not seen in the area. Reviewed, dictated and finalized at location A. GER OF PRODUCTION
--- NOTE | ~2024-10-15 | XR_ITS ---
EXAMINATION: XR retrograde pyelo w/stent RT DATE: 10/15/2024 14:26 INDICATION: Right internal ureteral stent placement TECHNIQUE: Fluoroscopic images from a right stent placement are submitted for review. 58 seconds of f luoroscopy time. 46 fluoroscopic images FINDINGS: There is a right double-J internal ureteral stent projecting in expected position, with proximal [place] loop at the level of the renal pelvis and distal loop in the pelvis within the bladder lumen. IMPRESSION: 1. Right internal ureteral stent placement. Please refer to real-time procedural findings for josé li. Reviewed, dictated and finalized at location B. DARIST IMPRESSION: 1. Right internal ureteral stent placement. Please refer to real-time procedu ral findings for details.
--- NOTE | ~2024-10-15 | CT_ITS ---
EXAMINATION: CT chest abdomen pelvis wo con DATE: 10/22/2024 11:57 INDICATION: Leukocytosis. TECHNIQUE: Computed tomography (CT) of the chest, abdomen, and pelvis was performed without intraveno us contrast. Automated exposure control and iterative reconstruction technique were employed. The dos e-length product was 691.00 mGy-cm. COMPARISON: CT abdomen and pelvis 10/17/2024 FINDINGS: CHEST CT: The lungs demonstrate mild dependent atelectasis. There is a 3 mm nodule in left upper lobe, likely b enign. No pleural effusion. The heart size is normal. No pericardial effusion. There is mild thoracic spondylosis. There are changes of anterior fusion procedure in cervical spine. ABDOMEN/PELVIS CT: There is a 4 mm cyst in the liver. There are changes of cholecystectomy. The spleen, pancreas, and ad renal glands are normal. There is a 2 mm stone in right kidney. There is mild atrophy of left kidney. There are 5 stones in left kidney measuring up to 12 mm. There are no dilated loops of bowel. The ap pendix is not visualized. There are no pathologically enlarged lymph nodes. There is no free intraper itoneal fluid. There is mild lumbar spondylosis. IMPRESSION: 1. Bilateral nonobstructing kidney stones. Reviewed, dictated and finalized at location A. PSYCH
--- NOTE | ~2024-10-15 | XR_ITS ---
EXAMINATION: XR retrograde pyelogram RT DATE: 10/20/2024 12:35 INDICATION: Right-sided ureteral stent removal TECHNIQUE: 26 fluoroscopic images of the abdomen and pelvis were obtained during procedure performed by Dr. Smith. Radiologist was not present for the imaging or procedure. The amount of fluoroscopy t carla used during this procedure was 0.2 minutes. Total DAP was 0.284 mGym^2 COMPARISON: 10/17/2024 FINDINGS: Images demonstrate a wire advanced through the right internal ureteral stent the distal tip of which is potentially within a lower pole calyx of the right kidney. Retrograde contrast injection opacifies the normal-appearing right renal collecting system which demonstrate no urothelial irregularities we re extraluminal contrast extravasation. IMPRESSION: 1. Fluoroscopy utilized during reported right-sided ureteral stent removal. See procedure note for fu rther detail. Reviewed, dictated and finalized at location A. CULTURAL EDUCATION INSTRUCTOR IMPRESSION: 1. Fluoroscopy utilized during reported right-sided ureteral stent removal. See procedure note for further detail.
--- NOTE | ~2024-10-15 | CT_ITS ---
EXAMINATION: CT abdomen pelvis wo con DATE: 10/26/2024 14:50 INDICATION: Increased abdominal pain. Kidney stones. TECHNIQUE: Computed tomography (CT) of the abdomen and pelvis was performed without intravenous contr ast. Automated exposure control and iterative reconstruction technique were employed. Exam dose: 242 .62 mGy-cm total exam DLP. COMPARISON: 10/22/2024 CT chest abdomen pelvis FINDINGS: There is asymmetric right renal enlargement and right anterior and posterior pararenal fasc ial thickening and mild asymmetric right perinephric fat stranding in addition to right periureteral stranding, suggesting right acute pyelonephritis in the absence right urinary tract calculus. Subtle pinpoint nonobstructing right renal calculus is suggested again. Multiple stable nonobstructing left renal calculi. No left ureteral calculus or left hydroureteroneph rosis. The urinary bladder, uterus and adnexal areas are unremarkable. Interval slight fluid collection in the right paracolic gutter along the inferolateral margin of the right hepatic lobe. Status post cholecystectomy. The liver, spleen, pancreas, and adrenal glands are unremarkable. Mild atherosclerotic calcification and normal caliber of the abdominal aorta. No intraperitoneal or r etroperitoneal or pelvic mass lesion or adenopathy or ascites. No bowel obstruction or intraperitoneal free air. No suspicious osteolytic or osteoblastic lesions. IMPRESSION: Asymmetric right nephromegaly, mild right pararenal fascial thickening, mild right perir enal and periureteral fat stranding in the prone recommend clinical correlation for right pyelonephri tis Reviewed, dictated and finalized at Location A. Reviewed, dictated and finalized at location A. UTIVE LEGAL SECRETARY IMPRESSION: Asymmetric right nephromegaly, mild right pararenal fascial thicke rosas, mild right perirenal and periureteral fat stranding in the prone recommen d clinical correlation for right pyelonephritis
--- NOTE | ~2024-10-15 | CT_ITS ---
EXAMINATION: CT abdomen pelvis w con DATE: 10/15/2024 07:00 INDICATION: Abdominal pain. TECHNIQUE: Computed tomography (CT) of the abdomen and pelvis was performed with 100 mL Omnipaque 350 intravenous contrast. Automated exposure control and iterative reconstruction technique were employe d. The dose-length product was 482.51 mGy-cm. COMPARISON: CT abdomen and pelvis 10/02/2024 FINDINGS: The visualized portions of the lung bases demonstrate mild atelectasis. No pleural effusion . The heart size is normal. No pericardial effusion. There is a 5 mm cyst in the liver. There are marybel nges of cholecystectomy. The spleen, pancreas, and adrenal glands are normal. There is a delayed righ t-sided contrast nephrogram. There is mild right hydronephrosis. There is a 5 mm stone in proximal ri ght ureter. There is cortical thinning of left kidney. There is a 1.4 cm stone in left kidney. There are no dilated loops of bowel. The appendix is not visualized. There are no pathologically enlarged l ymph nodes. There is no free intraperitoneal fluid. There is mild thoracic spondylosis and moderate l ower lumbar spondylosis. IMPRESSION: 1. 5 mm stone in proximal right ureter with mild right hydronephrosis. 2. Nonobstructing left kidney stone. Reviewed, dictated and finalized at location A. IRER PUMP
[2024-10-15 05:55] LABS: BEDSIDEPREGUCG Negative (Negative)
[2024-10-15 06:07] LABS: Add Urine Microscopic? YES; Appearance Urine Cloudy (Clear); Bacteria Urine 1+ /hpf; Bilirubin Urine Negative (Negative); Blood Urine 3+ (Negative); Color Urine Yellow (Yellow); Glucose Urine UA Negative (Negative); Ketones Urine Negative (Negative); Leukocyte Esterase Ur 1+ LEU/UL (Negative); Nitrate Urine Negative (Negative); Non Pathogenic Casts 0-2; Protein Urine 1+ mg/dL (Negative); RBC Urine >100 /hpf (0-2); Specific Grav Ur 1.016 (1.001-1.035); Squamous Epithelial Cell Urine Moderate /hpf (Few); WBC Urine 51-100 /hpf (0-3); pH Urine 5.5 (5.0-9.0)
[2024-10-15 06:31] LABS: Basophils Absolute Auto 0.1 K/mm3 (0.0-0.1); Basophils Percent Auto 0.4 % (0.2-1.2); Eosinophils Absolute Auto 0.2 K/mm3 (0-0.3); Eosinophils Percent Auto 1.1 % (0-4.4); Hematocrit 45.2 % (37.0-47.0); Hemoglobin 15.6 g/dL (12.0-15.0); Immature Granulocyte Percent A 0.5 % (0-0.5); Lymphocytes Absolute Auto 2.34 K/mm3 (0.9-3.2); Lymphocytes Percent Auto 12.5 % (18.3-44.2); Mean Corpuscular HGB Conc 34.5 g/dl (32-36); Mean Corpuscular Hemoglobin 32.4 pg (26-34); Mean Corpuscular Volume 93.8 fl (80-100); Mean Platelet Volume 9.3 fl (7.4-10.4); Monocytes Absolute Auto 1.2 K/mm3 (0.1-0.6); Monocytes Percent Auto 6.4 % (2.6-8.5); Neutrophils Absolute Auto 14.8 K/mm3 (1.3-6.7); Neutrophils Percent Auto 79.1 % (45.5-73.1); Platelet Count Result 330 k/mm3 (150-375); Red Blood Count 4.82 M/mm3 (4.2-5.4); Red Cell Distribution Width 14.2 % (11.5-14.5); White Blood Count 18.7 K/mm3 (4.5-10.0)
[2024-10-15 06:40] LABS: Alanine Aminotransferase 194 U/L (6-35); Albumin Level 4.3 g/dL (3.5-5.1); Alkaline Phosphatase 95 U/L (38-126); Anion Gap 6 mmol/L (4-12); Aspartate Amino Transferase 105 U/L (14-36); Bilirubin,Total 0.6 mg/dL (0.2-1.3); Blood Urea Nitrogen 10 mg/dL (7-17); Carbon Dioxide 24 mmol/L (22-30); Chloride 108 mmol/L (98-107); Estimated CRCL calculation 75 ml/min; Estimated Glomerular Filt Rate > 60; Glucose 154 mg/dL (65-110); Lipase 143 U/L (23-300); Potassium 4.2 mmol/L (3.4-5.0); Sodium 138 mmol/L (137-145)
[2024-10-15] MEDS: ONDANSETRON INJ 4 MG/2 ML VIAL IV PUSH (06:47)
[2024-10-15] MEDS: SODIUM CHLORIDE 0.9% IV 1,000 ML 999 ML IV CONT (06:47)
[2024-10-15] MEDS: MORPHINE SULFATE (*CRX) 4 MG/ML INJ IV PUSH (06:47)
--- NOTE | 2024-10-15 07:45 | ED_ITS ---
HPI - General Adult General Chief complaint: Abdominal Pain Stated complaint: lower abd pain Time Seen by Provider: 10/15/24 07:01 History of Present Illness HPI narrative: A 44-year-old female presenting to the ED with a chief complaint of right lower quadrant pain. Pain started in the tie loader while she was sleeping. It was a sharp pain in her right lower quadrant radiates across her lower abdomen. It is severe in intensity. Patient has frequent issues with abdominal pain although she says this is different. No exacerbating alleviating factors. Patient notes nausea and dysuria. She denies fevers chills chest pain difficulty breathing diarrhea. history kidney stones. Related Data Home Medications Medication Instructions Recorded Confirmed dicyclomine 20 mg tablet 20 mg PO TID 02/14/24 09/26/24 eluxadoline 100 mg tablet (Viberzi) 100 mg PO BID 02/14/24 09/26/24 fluticasone 250 mcg-salmeterol 50 1 ea inhalation BID 02/14/24 09/26/24 mcg/dose blistr powdr for inhalation lisinopril 10 mg tablet 10 mg PO DAILY 02/14/24 09/26/24 metformin 500 mg tablet,extended 500 mg PO BID 02/14/24 09/26/24 release 24 hr levocetirizine 5 mg tablet (Xyzal) 5 mg PO HS PRN Congestion 03/31/24 09/26/24 buspirone 15 mg tablet 15 mg PO TID 09/26/24 09/26/24 Allergies Allergy/AdvReac Type Severity Reaction Status Date / Time No Known Allergies Allergy Verified 10/15/24 05:34 [facility] Past Medical History Medical History Asthma Chronic pain r/t sciatica and L4/L5/L6 protruding Hyperlipidemia Hypertension Irritable bowel syndrome with diarrhea Lactic acid acidosis Polycystic ovarian syndrome Surgical History Surgical History History of appendectomy History of cervical spinal surgery (03/08/23) anterior cervical discectomy and fusion History of cholecystectomy Family History Family History Father Hypertension Patient's father is in good health Cerebrovascular accident Family history of heart disease in male family member before age 55 Mother Patient's mother is in good health Family history of diabetes mellitus in first degree relative Sibling Family history of diabetes mellitus in first degree relative Social History Social History Social History: Surrogate medical decision maker: Chinmay Muñoz, spouse ([phone]). Code status: Full code. Smoking packs per day: 1 Smoking cigarettes per day: 20.0 Years smoked: 30 Smoking pack-years: 30.00 Smoking status: Current every day smoker Tobacco type: cigarettes Second hand tobacco smoke exposure: Yes Alcohol intake: never Alcohol use details: rarely drinks, a couple time a month Substance use: current Substance use type: marijuana Last use: 09/25/2024 Do You Feel Safe in your Home?: Yes Lack of Transportation: No Lack of Food: Never True Current Housing: I Have Housing Concerned About Future Housing: No Difficulty Paying Gas/Electric Bills: No Difficulty Paying for Meds: No Currently Unemployed: No Education: Grade School Difficulty w/ Childcare or Family Care: No Living arrangements: with family Additional living arrangements comments: Lives with father and . 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 Spiritual care concerns: No Agree to blood products: Yes Exam Narrative: APPEARANCE: Appears uncomfortable. patient flinches with light touch across all back and abdomen. Head: atraumatic. EYES: EOMI, NOSE: Atraumatic NECK: Trachea midline RESPIRATORY: No increased rate of breathing, clear to auscultation CARDIOVASCULAR: RRR, ABDOMINAL: tenderness across the lower abdomen with voluntary guarding. Soft, normal bowel sounds MUSCULOSKELETAl: No obvious deformities NEURO: Alert. Moving 4/4 extremities SKIN:: Warm, dry. Normal color PSYCHIATRIC: Normal affect Course Vital Signs Vital signs: Vital Signs Temperature 97.9 F 10/15/24 05:43 Pulse Rate 88 10/15/24 05:43 Respiratory Rate 17 10/15/24 05:43 Blood Pressure 170/95 H 10/15/24 05:43 Pulse Oximetry 100 10/15/24 05:43 Oxygen Delivery Room Air 10/15/24 05:43 Temperature 98.1 F 10/15/24 06:31 Pulse Rate 91 10/15/24 06:31 Respiratory Rate 14 10/15/24 06:31 Blood Pressure 173/95 H 10/15/24 06:31 Pulse Oximetry 99 10/15/24 06:31 Oxygen Delivery Room Air 10/15/24 05:43 Medical Decision Making [facility] Narrative Medical decision making narrative: -Course: 44-year-old female w/ chronic pain/hx of kidney stones presenting right lower quadrant pain. CT showed a 5 mm stone in the proximal ureter with mild hydronephrosis. White count is elevated 18 although it is chronically elevated. Urine with 51-100 white blood cells +1 leuk esterase greater than 100 red blood cells. Patient given fluid resuscitation and antibiotics. Urology was consulted. Patient be admitted for management of an infected stone. -DDX includes but is not limited to: Kidney stone, infected stone, pyelonephritis colitis enterocolitis -Co-morbidities complicating care: Chronic pain, hx of kidney stones, ibs-d -Independent interpretation of studies: labs/ imaging reviewed -Discussion of Management/Consultants: evelyn Bennett -Shared decision making / Disposition:admitted. Vital Signs Vital Signs: Vital Signs Temperature 97.9 F 10/15/24 05:43 Pulse Rate 88 10/15/24 05:43 Respiratory Rate 17 10/15/24 05:43 Blood Pressure 170/95 H 10/15/24 05:43 Pulse Oximetry 100 10/15/24 05:43 Oxygen Delivery Room Air 10/15/24 05:43 Temperature 98.1 F 10/15/24 06:31 Pulse Rate 91 10/15/24 06:31 Respiratory Rate 14 10/15/24 06:31 Blood Pressure 173/95 H 10/15/24 06:31 Pulse Oximetry 99 10/15/24 06:31 Oxygen Delivery Room Air 10/15/24 05:43 Lab Data 10/15/24 05:59 10/15/24 05:59 Labs: Lab Results 10/15/24 10/15/24 10/15/24 Range/Units 05:52 05:54 05:59 WBC 18.7 H (4.5-10.0) K/mm3 RBC 4.82 (4.2-5.4) M/mm3 Hgb 15.6 H (12.0-15.0) g/dL Hct 45.2 (37.0-47.0) % MCV 93.8 (80-100) fl MCH 32.4 (26-34) pg MCHC 34.5 (32-36) g/dl RDW 14.2 (11.5-14.5) % Plt Count 330 (150-375) k/mm3 MPV 9.3 (7.4-10.4) fl Immature Gran % (Auto) 0.5 (0-0.5) % Neut % (Auto) 79.1 H (45.5-73.1) % Lymph % (Auto) 12.5 L (18.3-44.2) % [place] % (Auto) 6.4 (2.6-8.5) % Eos % (Auto) 1.1 (0-4.4) % Baso % (Auto) 0.4 (0.2-1.2) % Lymph # (Auto) 2.34 (0.9-3.2) K/mm3 [place] # (Auto) 1.2 H (0.1-0.6) K/mm3 Eos # (Auto) 0.2 (0-0.3) K/mm3 Baso # (Auto) 0.1 (0.0-0.1) K/mm3 Abs Immat Gran (auto) 0.10 H (0.00-0.031) K/mm3 Absolute Neuts (auto) 14.8 H (1.3-6.7) K/mm3 Absolute Nucleated RBC 0.000 (0.0-0.012) K/mm3 Nucleated RBC % 0.0 (0.0-0.2) % Sodium 138 (137-145) mmol/L Potassium 4.2 (3.4-5.0) mmol/L Chloride 108 H (98-107) mmol/L Carbon Dioxide 24 (22-30) mmol/L Anion Gap 6 (4-12) mmol/L BUN 10 (7-17) mg/dL Creatinine 0.80 (0.7-1.0) mg/dL Estim Creat Clear Calc 75 ml/min Estimated GFR > 60 (59 - ) Glucose 154 H (65-110) mg/dL Calcium 9.0 (8.4-10.2) mg/dL Total Bilirubin 0.6 (0.2-1.3) mg/dL AST 105 H (14-36) U/L ALT 194 H (6-35) U/L Alkaline Phosphatase 95 (38-126) U/L Total Protein 7.0 (6.3-8.2) g/dL Albumin 4.3 (3.5-5.1) g/dL Lipase 143 (23-300) U/L Urine Color Yellow (Yellow) Urine Appearance Cloudy H (Clear) Urine pH 5.5 (5.0-9.0) Ur Specific [place] 1.016 (1.001-1.035) Urine Protein 1+ H (Negative) mg/dL Urine Glucose (UA) Negative (Negative) mg/dL Urine Ketones Negative (Negative) mg/dL Ur Blood (Man) 3+ H (Negative) Urine Nitrate Negative (Negative) Urine Bilirubin Negative (Negative) Urine Urobilinogen 1.0 (<2.0) mg/dL Leukocyte Esterase Rfl 1+ H (Negative) JOY/UL Urine RBC >100 H (0-2) /hpf Urine WBC 51-100 H (0-3) /hpf Ur Squamous Epith Cells Moderate (Few) /hpf Urine Bacteria 1+ H /hpf Urine Casts 0-2 POC Urine HCG, Qual Negative (Negative) Critical Care Time Critical Care Time Critical Care Time: Yes Total Critical Care Time: 20 Discharge Plan Discharge Clinical Impression: Kidney stone, Leukocytosis, UTI (urinary tract infection) Patient Disposition: Still a Patient Condition: Stable Instructions: Antibiotic Form Prescriptions: No Action fluticasone propion-salmeterol 250-50 mcg/dose blister with device 1 ea INHALATION BID dicyclomine 20 mg tablet 20 mg PO TID lisinopril 10 mg tablet 10 mg PO DAILY metformin 500 mg tablet extended release 24 hr 500 mg PO BID Viberzi 100 mg tablet 100 mg PO BID buspirone 15 mg tablet 15 mg PO TID ketorolac 10 mg tablet 10 mg PO Q6H PRN (Reason: pain) Qty: 20 0RF Rx Instructions: maximum total duration of 5 days from all oral, intranasal, or parenteral formulations hydrocodone-acetaminophen 10-325 mg tablet 1 tablet PO Q6H PRN (Reason: Pain) Qty: 20 0RF ciprofloxacin HCl [Cipro] 500 mg tablet 500 mg PO Q12H Qty: 14 0RF ondansetron HCl 4 mg tablet 4 mg PO Q4H Qty: 10 0RF Rx Instructions: 1st dose 1-2 hr before radiation tamsulosin [Flomax] 0.4 mg capsule 0.4 mg PO DAILY Qty: 10 0RF levocetirizine [Xyzal] 5 mg Tablet 5 mg PO HS PRN (Reason: Congestion) Follow-up/Referrals: UNKNOWN,DOCTOR [Primary Care Provider] -
[2024-10-15] MEDS: HYDROmorphone HCL INJ (*CRX) 1 MG/ML SYR 0.5 MG IV PUSH (08:04)
--- NOTE | 2024-10-15 09:28 | ADMGEN ---
This patient, Lissa Muñoz, was admitted to [facility] Surg Room 317-01. Patient/family oriented to hospital policies and general routines including ID bracelet, bed and alarms, visiting hours, pain management, procedures, bathroom and other care routines, personal items, smoking policy, room service/diet, and visiting hours. Information on how to activate the Rapid Response Team has been discussed. Patient/Family are encouraged to report perceived risks to care and to ask questions if they do not understand what they are told or what they should do.
[2024-10-15] MEDS: MORPHINE SULFATE (*CRX) 2 MG/ML INJ IV PUSH (10:20)
--- NOTE | 2024-10-15 12:01 | WPDANESEPPF ---
Anes - Initial Pre Proc Eval Procedure: Operation Date: 10/15/24 13:30 Proposed Procedures p Cystoscopy, Right Stent Placement - Eren Bennett MD Date/Time: 10/15/24 12:01 Surgeon: Ashley Hernandez MD Pre Op Diagnosis: Infected Stone Patient Data Age: 44 Gender: F Height: 1.57 m Weight: 77.9 kg Last Vital Signs Temp 36.6 C 10/15/24 08:31 Pulse 81 10/15/24 08:31 Resp 17 10/15/24 08:31 BP 135/88 10/15/24 08:31 Pulse Ox 97 10/15/24 08:31 O2 Del Method Room Air 10/15/24 05:43 Allergies Allergy/AdvReac Type Severity Reaction Status Date / Time No Known Allergies Allergy Verified 10/15/24 11:56 Home Medications Medication Instructions Recorded Confirmed Type dicyclomine 20 mg tablet 20 mg PO TID PRN helps stomach 02/14/24 10/15/24 History eluxadoline 100 mg tablet (Viberzi) 100 mg PO BID 02/14/24 10/15/24 History fluticasone 250 mcg-salmeterol 50 1 ea inhalation BID 02/14/24 10/15/24 History mcg/dose blistr powdr for inhalation lisinopril 10 mg tablet 10 mg PO DAILY 02/14/24 10/15/24 History metformin 500 mg tablet,extended 500 mg PO BID 02/14/24 10/15/24 History release 24 hr buspirone 15 mg tablet 15 mg PO TID 09/26/24 10/15/24 History hydrocodone 10 mg-acetaminophen 1 tablet PO Q6H PRN Pain #20 tabs 09/28/24 10/15/24 Rx 325 mg tablet tamsulosin 0.4 mg capsule (Flomax) 0.4 mg PO DAILY #10 caps 10/02/24 10/15/24 Rx Laboratory Tests 10/15/24 10/15/24 10/15/24 05:52 05:54 05:59 WBC 18.7 H K/mm3 (4.5-10.0) RBC 4.82 M/mm3 (4.2-5.4) Hgb 15.6 H g/dL (12.0-15.0) Hct 45.2 % (37.0-47.0) MCV 93.8 fl (80-100) MCH 32.4 pg (26-34) MCHC 34.5 g/dl (32-36) RDW 14.2 % (11.5-14.5) Plt Count 330 k/mm3 (150-375) MPV 9.3 fl (7.4-10.4) Immature Gran % (Auto) 0.5 % (0-0.5) Neut % (Auto) 79.1 H % (45.5-73.1) Lymph % (Auto) 12.5 L % (18.3-44.2) [place] % (Auto) 6.4 % (2.6-8.5) Eos % (Auto) 1.1 % (0-4.4) Baso % (Auto) 0.4 % (0.2-1.2) Lymph # (Auto) 2.34 K/mm3 (0.9-3.2) Coleman # (Auto) 1.2 H K/mm3 (0.1-0.6) Eos # (Auto) 0.2 K/mm3 (0-0.3) Baso # (Auto) 0.1 K/mm3 (0.0-0.1) Abs Immat Gran (auto) 0.10 H K/mm3 (0.00-0.031) Absolute Neuts (auto) 14.8 H K/mm3 (1.3-6.7) Absolute Nucleated RBC 0.000 K/mm3 (0.0-0.012) Nucleated RBC % 0.0 % (0.0-0.2) Sodium 138 mmol/L (137-145) Potassium 4.2 mmol/L (3.4-5.0) Chloride 108 H mmol/L (98-107) Carbon Dioxide 24 mmol/L (22-30) Anion Gap 6 mmol/L (4-12) BUN 10 mg/dL (7-17) Creatinine 0.80 mg/dL (0.7-1.0) Estim Creat Clear Calc 75 ml/min Estimated GFR > 60 (59 - ) Glucose 154 H mg/dL (65-110) Calcium 9.0 mg/dL (8.4-10.2) Total Bilirubin 0.6 mg/dL (0.2-1.3) AST 105 H U/L (14-36) ALT 194 H U/L (6-35) Alkaline Phosphatase 95 U/L (38-126) Total Protein 7.0 g/dL (6.3-8.2) Albumin 4.3 g/dL (3.5-5.1) Lipase 143 U/L (23-300) Urine Color Yellow (Yellow) Urine Appearance Cloudy H (Clear) Urine pH 5.5 (5.0-9.0) Ur Specific [place] 1.016 (1.001-1.035) Urine Protein 1+ H mg/dL (Negative) Urine Glucose (UA) Negative mg/dL (Negative) Urine Ketones Negative mg/dL (Negative) Ur Blood (Man) 3+ H (Negative) Urine Nitrate Negative (Negative) Urine Bilirubin Negative (Negative) Urine Urobilinogen 1.0 mg/dL (<2.0) Leukocyte Esterase Rfl 1+ H JOY/UL (Negative) Urine RBC >100 H /hpf (0-2) Urine WBC 51-100 H /hpf (0-3) Ur Squamous Epith Cells Moderate /hpf (Few) Urine Bacteria 1+ H /hpf Urine Casts 0-2 POC Urine HCG, Qual Negative (Negative) Patient hx anesthesia problems: none Family hx anesthesia problems: none Results Review: All pre-operative results and documents have been reviewed as part of the pre-operative evaluation. [facility] Past Medical History Medical History Asthma Chronic pain r/t sciatica and L4/L5/L6 protruding Hyperlipidemia Hypertension Irritable bowel syndrome with diarrhea Lactic acid acidosis Polycystic ovarian syndrome Surgical History Surgical History History of appendectomy History of cervical spinal surgery (03/08/23) anterior cervical discectomy and fusion History of cholecystectomy Family History Family History Father Hypertension Patient's father is in good health Cerebrovascular accident Family history of heart disease in male family member before age 55 Mother Patient's mother is in good health Family history of diabetes mellitus in first degree relative Sibling Family history of diabetes mellitus in first degree relative Social History Social History Social History: Surrogate medical decision maker: Chinmay Muñoz spouse ([phone]). Code status: Full code. Smoking packs per day: 1 Smoking cigarettes per day: 20.0 Years smoked: 30 Smoking pack-years: 30.00 Smoking status: Current every day smoker Tobacco type: cigarettes Second hand tobacco smoke exposure: Yes Alcohol intake: never Alcohol use details: rarely drinks, a couple time a month Substance use: current Substance use type: marijuana Last use: Marijuana 10/14/24 Do You Feel Safe in your Home?: Yes Lack of Transportation: No Lack of Food: Never True Current Housing: I Have Housing Concerned About Future Housing: No Difficulty Paying Gas/Electric Bills: No Difficulty Paying for Meds: No Currently Unemployed: No Education: Grade School Difficulty w/ Childcare or Family Care: No Living arrangements: with family Additional living arrangements comments: Lives with father and . 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 Spiritual care concerns: No Agree to blood products: Yes Anes - Eval Final PreProcedure Day of Procedure 10/15/24 12:01 Patient weight: obese Heart: regular rate and rhythm Lungs: clear to auscultation Airway: Mallampati scale class III Neurological: alert and oriented Last oral intake: >/= 8 hours ASA classification: III Emergent: no Anesthetic plan: proceed Anesthesia type and monitoring: general LMA and standard monitoring Results Review: All pre-operative results and documents have been reviewed as part of the pre-operative evaluation. Informed Consent: The patient's anesthetic plan and its attendant risks and benefits were discussed with the patient/family/POA. Questions were solicited and answers provided to the satisfaction of the patient/family/POA.
[2024-10-15] MEDS: fentaNYL CITRATE INJ (*CRX) 100 MCG/2 ML VIAL 50 MCG IV PUSH (12:18)
[2024-10-15] MEDS: LACTATED RINGERS 1,000 ML 30 ML IV CONT (12:18)
[2024-10-15] MEDS: LIDOCAINE HCL 2% GEL UROJET 10 ML PKG MUCOUS MEM (13:35)
--- NOTE | 2024-10-15 13:54 | WPDHPUPDATE1 ---
History and Physical Update Update Date/Time: 10/15/24 13:54 History and Physical has been reviewed, including an updated exam of the patient. There are NO changes in the patient's condition. Risks, benefits, and alternatives have been discussed and questions answered. Patient agrees to proceed with procedure.
--- NOTE | 2024-10-15 13:59 | P.CONUR_ITS ---
Assessment and Plan Assessment and plan (1) UTI (urinary tract infection): Code(s): N39.0 - Urinary tract infection, site not specified Status: Acute (2) Left renal stone: Code(s): N20.0 - Calculus of kidney Status: Acute (3) Right ureteral stone: Code(s): N20.1 - Calculus of ureter Status: Acute Plan This is a 44-year-old female with a history of nephrolithiasis, she underwent a left ureteroscopy in January of 2024. She presents today with obstructing right ureteral 5mm stone and associated hydronephrosis. She has urinalysis concerning for infection. Additionally, patient had a nonobstructing 14mm lower pole stone. -patient has been admitted to the hospitalist. She will continue empiric antibiotics. We will tailor antibiotics based on her culture results -patient to be taken to the operating room for cystoscopy and right ureteral stent insertion. -risks, benefits, alternatives of procedure discussed with patient and she agrees to proceed. She understands risks including infection,, pain, tract structures, inability to stent, and complications of anesthesia. Patient understands that the stent is a temporary device. Patient understands she will need definitive stone management at a later date. Urology Consult Note HPI Date Seen: 10/15/24 Requesting Physician: Ashley Hernandez MD Primary Care Provider: UNKNOWN,DOCTOR Consult Narrative Narrative: Lissa Muñoz is a 44 year old female who presented to the emergency department with right-sided flank pain. She has a history of kidney stones. She was found to have an obstructing right ureteral stone. Urology was called for consultation Currently patient denies fevers or chills. She continues have right-sided severe pain. [facility] Past Medical History Medical History (Updated 10/15/24 @ 14:02 by Eren Bennett MD) Asthma Chronic pain r/t sciatica and L4/L5/L6 protruding Hyperlipidemia Hypertension Irritable bowel syndrome with diarrhea Lactic acid acidosis Polycystic ovarian syndrome Right ureteral stone Surgical History Surgical History History of appendectomy History of cervical spinal surgery (03/08/23) anterior cervical discectomy and fusion History of cholecystectomy Family History Family History Father Hypertension Patient's father is in good health Cerebrovascular accident Family history of heart disease in male family member before age 55 Mother Patient's mother is in good health Family history of diabetes mellitus in first degree relative Sibling Family history of diabetes mellitus in first degree relative Social History Social History Social History: Surrogate medical decision maker: Chinmay Muñoz, spouse ([phone]). Code status: Full code. Smoking packs per day: 1 Smoking cigarettes per day: 20.0 Years smoked: 30 Smoking pack-years: 30.00 Smoking status: Current every day smoker Tobacco type: cigarettes Second hand tobacco smoke exposure: Yes Alcohol intake: never Alcohol use details: rarely drinks, a couple time a month Substance use: current Substance use type: marijuana Last use: Marijuana 10/14/24 Do You Feel Safe in your Home?: Yes Lack of Transportation: No Lack of Food: Never True Current Housing: I Have Housing Concerned About Future Housing: No Difficulty Paying Gas/Electric Bills: No Difficulty Paying for Meds: No Currently Unemployed: No Education: Grade School Difficulty w/ Childcare or Family Care: No Living arrangements: with family Additional living arrangements comments: Lives with father and . 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 Spiritual care concerns: No Agree to blood products: Yes Meds Home Medications and Allergies Home Medications Medication Instructions Recorded Confirmed Type dicyclomine 20 mg tablet 20 mg PO TID PRN helps stomach 02/14/24 10/15/24 History eluxadoline 100 mg tablet (Viberzi) 100 mg PO BID 02/14/24 10/15/24 History fluticasone 250 mcg-salmeterol 50 1 ea inhalation BID 02/14/24 10/15/24 History mcg/dose blistr powdr for inhalation lisinopril 10 mg tablet 10 mg PO DAILY 02/14/24 10/15/24 History metformin 500 mg tablet,extended 500 mg PO BID 02/14/24 10/15/24 History release 24 hr buspirone 15 mg tablet 15 mg PO TID 09/26/24 10/15/24 History hydrocodone 10 mg-acetaminophen 1 tablet PO Q6H PRN Pain #20 tabs 09/28/24 10/15/24 Rx 325 mg tablet tamsulosin 0.4 mg capsule (Flomax) 0.4 mg PO DAILY #10 caps 10/02/24 10/15/24 Rx Allergies Allergy/AdvReac Type Severity Reaction Status Date / Time No Known Allergies Allergy Verified 10/15/24 11:56 Vital Signs Vital Signs - 24 hr 10/15/24 05:43 10/15/24 06:31 10/15/24 06:04 Temperature 36.6 C 36.7 C Pulse Rate 88 91 100 Respiratory Rate 17 14 15 Blood Pressure 170/95 H 173/95 H 159/94 H Pulse Oximetry 100 99 100 Oxygen Delivery Room Air 10/15/24 06:31 10/15/24 07:16 10/15/24 08:02 Temperature 36.6 C 36.6 C Pulse Rate 93 82 79 Respiratory Rate 12 16 14 Blood Pressure 173/95 H 163/89 H 139/87 Pulse Oximetry 99 98 99 Oxygen Delivery 10/15/24 08:31 10/15/24 11:45 Temperature 36.6 C 36.3 C L Pulse Rate 81 88 Respiratory Rate 17 16 Blood Pressure 135/88 115/69 Pulse Oximetry 97 100 Oxygen Delivery Exam Narrative: The patient is awake alert. She is in moderate distress due to right-sided pain. Breathing is unlabored. Her abdomen is soft nontender nondistended. Results Labs 10/15/24 05:59 10/15/24 05:59 Labs: Short CBC 10/15/24 Range/Units 05:59 WBC 18.7 H (4.5-10.0) K/mm3 Hgb 15.6 H (12.0-15.0) g/dL Hct 45.2 (37.0-47.0) % Plt Count 330 (150-375) k/mm3 [facility] 10/15/24 05:59 Sodium 138 Potassium 4.2 Chloride 108 H Carbon Dioxide 24 BUN 10 Creatinine 0.80 Glucose 154 H Calcium 9.0 Liver Function 10/15/24 Range/Units 05:59 Total Bilirubin 0.6 (0.2-1.3) mg/dL AST 105 H (14-36) U/L ALT 194 H (6-35) U/L Alkaline Phosphatase 95 (38-126) U/L Albumin 4.3 (3.5-5.1) g/dL Urine 10/15/24 Range/Units 05:52 Urine Color Yellow (Yellow) Urine Appearance Cloudy H (Clear) Urine pH 5.5 (5.0-9.0) Ur Specific [place] 1.016 (1.001-1.035) Urine Protein 1+ H (Negative) mg/dL Urine Glucose (UA) Negative (Negative) mg/dL Urinalysis with bacteria, white blood cells and red blood cells. Positive for leukocyte esterase. Negative nitrite Date of Service: 10/15/24 Procedure(s): CT abdomen pelvis w con Accession Number(s): [id number] cc: Braxton Moreno MD; UNKNOWN,DOCTOR; Rick Torres MD~ EXAMINATION: CT abdomen pelvis w con DATE: 10/15/2024 07:00 INDICATION: Abdominal pain. TECHNIQUE: Computed tomography (CT) of the abdomen and pelvis was performed with 100 mL Omnipaque 350 intravenous contrast. Automated exposure control and iterative reconstruction technique were employed. The dose-length product was 482.51 mGy-cm. COMPARISON: CT abdomen and pelvis 10/02/2024 FINDINGS: The visualized portions of the lung bases demonstrate mild atelectasis. No pleural effusion. The heart size is normal. No pericardial effusion. There is a 5 mm cyst in the liver. There are changes of cholecyst ectomy. The spleen, pancreas, and adrenal glands are normal. There is a delayed right-sided contrast nephrogram. There is mild right hydronephrosis. There is a 5 mm stone in proximal right ureter. There is cortical thinning of left kidney. There is a 1.4 cm stone in left kidney. There are no dilated loops of bowel. The appendix is not visualized. There are no pathologically enlarged lymph nodes. T here is no free intraperitoneal fluid. There is mild thoracic spondylosis and moderate lower lumbar spondylosis. IMPRESSION: 1. 5 mm stone in proximal right ureter with mild right hydronephrosis. 2. Nonobstructing left kidney stone. Reviewed, dictated and finalized at location A. [employer]
[2024-10-15] MEDS: fentaNYL CITRATE INJ (*CRX) 100 MCG/2 ML VIAL 25 MCG IV PUSH ×8 (14:44→15:43)
--- NOTE | 2024-10-15 14:45 | W.PM.PROC2 ---
Procedure Note - Detailed Date of Procedure 10/15/24 Pre-op Diagnosis Obstructing right ureteral stone Urinary tract infection Post-op Diagnosis Same Procedure Performed Cystoscopy, right retrograde pyelogram, right ureteral stent insertion Surgeon Eren Bennett MD Anesthesia General Description of Procedure Informed consent obtained. Patient taken the operating room. She was given preoperative IV antibiotics in ER. She was induced with anesthesia. She was prepped and draped in the normal sterile fashion. A 22 F cystoscope was inserted through the urethra into the bladder. Inspection of the bladder revealed no mucosal abnormalities. She had bilateral orthotopic ureteral orifices. We cannulated the right ureteral orifice with an open-ended 5 F catheter retrograde pyelogram was performed that revealed a filling defect in the proximal ureter with moderate hydronephrosis. There was still contrast retained in the kidney her CT scan earlier today. We then advanced a wire into able to manipulate a Sensor wire beyond the level of the stone into the upper pole. We then placed a 6 F variable length stent with a curl in the renal pelvis and a curl in the bladder. The bladder was then emptied patient was awakened and taken to recovery room stable condition Complications No immediate complications Condition Stable Disposition PACU
--- NOTE | 2024-10-15 15:08 | PM.IMHP ---
H&P: HPI History of Present Illness Date/Time: 10/15/24 15:08 Chief Complaint: Right flank pain Narrative: 44-year-old female past medical history of kidney stones, IBS, PCOS, hypertension anxiety presented to the rates. Patient reported she was usual state of notable 1 a yesterday she started said set right lung described as sharp constant but it seemed suprapubic region. She also reported dysuria but denies bloody urine. No fever chest pain shortness for breath area. ER evaluation notable for stable vital signs within normal limits except blood pressure 170/95. Labs notable for WBC 18.7, AST 105 ALT 194. UA positive for nitrates and leukocyte esterases with rbc's more than 100 WBC 50 1-100. CT abdomen pelvis showed a 5 mm stone proximal right ureter with mild right hydronephrosis. Urology was consulted and patient was started Rocephin, blood and urine culture obtained prior to admission. Review of Systems Review of Systems: All other systems reviewed and negative except as noted in the history above. [facility] Past Medical History Medical History (Updated 10/15/24 @ 14:02 by Eren Bennett MD) Asthma Chronic pain r/t sciatica and L4/L5/L6 protruding Hyperlipidemia Hypertension Irritable bowel syndrome with diarrhea Lactic acid acidosis Polycystic ovarian syndrome Right ureteral stone Surgical History Surgical History History of appendectomy History of cervical spinal surgery (03/08/23) anterior cervical discectomy and fusion History of cholecystectomy Family History Family History Father Hypertension Patient's father is in good health Cerebrovascular accident Family history of heart disease in male family member before age 55 Mother Patient's mother is in good health Family history of diabetes mellitus in first degree relative Sibling Family history of diabetes mellitus in first degree relative Social History Social History Social History: Surrogate medical decision maker: Chinmay Muñoz, spouse ([phone]). Code status: Full code. Smoking packs per day: 1 Smoking cigarettes per day: 20.0 Years smoked: 30 Smoking pack-years: 30.00 Smoking status: Current every day smoker Tobacco type: cigarettes Second hand tobacco smoke exposure: Yes Alcohol intake: never Alcohol use details: rarely drinks, a couple time a month Substance use: current Substance use type: marijuana Last use: Marijuana 10/14/24 Do You Feel Safe in your Home?: Yes Lack of Transportation: No Lack of Food: Never True Current Housing: I Have Housing Concerned About Future Housing: No Difficulty Paying Gas/Electric Bills: No Difficulty Paying for Meds: No Currently Unemployed: No Education: Grade School Difficulty w/ Childcare or Family Care: No Living arrangements: with family Additional living arrangements comments: Lives with father and . 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 Spiritual care concerns: No Agree to blood products: Yes Meds Home Medications and Allergies Home Medications Medication Instructions Recorded Confirmed Type dicyclomine 20 mg tablet 20 mg PO TID PRN helps stomach 02/14/24 10/15/24 History eluxadoline 100 mg tablet (Viberzi) 100 mg PO BID 02/14/24 10/15/24 History fluticasone 250 mcg-salmeterol 50 1 ea inhalation BID 02/14/24 10/15/24 History mcg/dose blistr powdr for inhalation lisinopril 10 mg tablet 10 mg PO DAILY 02/14/24 10/15/24 History metformin 500 mg tablet,extended 500 mg PO BID 02/14/24 10/15/24 History release 24 hr buspirone 15 mg tablet 15 mg PO TID 09/26/24 10/15/24 History hydrocodone 10 mg-acetaminophen 1 tablet PO Q6H PRN Pain #20 tabs 09/28/24 10/15/24 Rx 325 mg tablet tamsulosin 0.4 mg capsule (Flomax) 0.4 mg PO DAILY #10 caps 10/02/24 10/15/24 Rx Allergies Allergy/AdvReac Type Severity Reaction Status Date / Time No Known Allergies Allergy Verified 10/15/24 11:56 Vital Signs Vital Signs - 24 hr 10/15/24 05:43 10/15/24 06:31 10/15/24 06:04 Temperature 97.9 F 98.1 F Pulse Rate 88 91 100 Respiratory Rate 17 14 15 Blood Pressure 170/95 H 173/95 H 159/94 H Pulse Oximetry 100 99 100 Oxygen Delivery Room Air Oxygen Flow Rate 10/15/24 06:31 10/15/24 07:16 10/15/24 08:02 Temperature 97.8 F 97.8 F Pulse Rate 93 82 79 Respiratory Rate 12 16 14 Blood Pressure 173/95 H 163/89 H 139/87 Pulse Oximetry 99 98 99 Oxygen Delivery Oxygen Flow Rate 10/15/24 08:31 10/15/24 11:45 10/15/24 14:27 Temperature 97.9 F 97.3 F L 97.6 F Pulse Rate 81 88 87 Respiratory Rate 17 16 14 Blood Pressure 135/88 115/69 92/58 L Pulse Oximetry 97 100 100 Oxygen Delivery Simple Face Mask Oxygen Flow Rate 8 10/15/24 14:30 10/15/24 14:45 10/15/24 14:50 Temperature Pulse Rate 79 83 Respiratory Rate 20 12 Blood Pressure 95/62 L 114/70 Pulse Oximetry 100 100 100 Oxygen Delivery Simple Face Mask Simple Face Mask Room Air Oxygen Flow Rate 8 8 Exam Narrative: General: alert and comfortable Eyes: EOMI, PERRLA ENNT External ears normal, Neck is supple, no masses, Respiratory systems: Clear to auscultation Cardiovascular S1, S2, normal rhythm, no murmur, rub, or gallop; no thrill or palpable murmurs on palpation. Gastrointestinal: soft, non-tender, and non-distended abdomen with no masses; BS present Skin: no rash, lesions, ulcerations, subcutaneous nodules or induration Musculoskeletal: no abnormality and no tenderness, normal ROM Neurologic: Alert and oriented x3, non focal Mental Status Exam: normal affect H&P: Results Labs Labs: Short CBC 10/15/24 Range/Units 05:59 WBC 18.7 H (4.5-10.0) K/mm3 Hgb 15.6 H (12.0-15.0) g/dL Hct 45.2 (37.0-47.0) % Plt Count 330 (150-375) k/mm3 BMP 10/15/24 05:59 Sodium 138 Potassium 4.2 Chloride 108 H Carbon Dioxide 24 BUN 10 Creatinine 0.80 Glucose 154 H Calcium 9.0 Liver Function 10/15/24 Range/Units 05:59 Total Bilirubin 0.6 (0.2-1.3) mg/dL AST 105 H (14-36) U/L ALT 194 H (6-35) U/L Alkaline Phosphatase 95 (38-126) U/L Albumin 4.3 (3.5-5.1) g/dL Urine 10/15/24 Range/Units 05:52 Urine Color Yellow (Yellow) Urine Appearance Cloudy H (Clear) Urine pH 5.5 (5.0-9.0) Ur Specific [place] 1.016 (1.001-1.035) Urine Protein 1+ H (Negative) mg/dL Urine Glucose (UA) Negative (Negative) mg/dL Assessment and Plan Assessment and plan (1) Right ureteral stone: Code(s): N20.1 - Calculus of ureter Status: Acute (2) UTI (urinary tract infection): Code(s): N39.0 - Urinary tract infection, site not specified Status: Acute (3) Hypertension: Code(s): I10 - Essential (primary) hypertension Status: Acute Plan Right ureteral stone with hydronephrosis Patient presented with denies flank pain radiating to the groin Pain control with p.r.n. Dilaudid Neurologic consulted for possible stone extraction. Possible UTI Patient reported dysuria with suprapubic pain. UA showed positive leukocyte esterase and nitrates Urine culture blood culture pending Continue Rocephin. Hypertension Titrate medications with clinical course. Anxiety Continue medications. PCOS Hold metformin start discharge. IBD Monitor. DVT prophylaxis SCDs, hold anticoagulation for cystoscopy. Full code , Chinmay Muñoz, surrogate decision maker. Hospitalist [facility] Advance Care Plan I have confirmed that the patient's Advanced Care Plan is present, code status is documented, or surrogate decision maker is listed in patient medical record.: Yes Medication Reconciliation I have utilized all available resources to obtain, update and review the patients current medications (includes all prescriptions, OTC, herbals, cannabis, and nutritional supplements).: Yes
--- NOTE | 2024-10-15 15:53 | SUR.PHASEI ---
1545: Currently unable to transfer orders to floor r/t a hospitalist being in the chart on a different computer. Called IT. IT told me that I have to wait until the computer locks the physician out before I can transfer orders. I tried to call the physician, Dr. Hernandez, who told me he was not on the computer . Awaiting to transfer the patient after the orders are able to be transferred. Patient is med/surg status and is off the monitor.
[2024-10-15] MEDS: busPIRone HCL 5 MG TABLET 15 MG PO (17:03)
[2024-10-15] MEDS: HYDROmorphone HCL INJ (*CRX) 1 MG/ML SYR IV PUSH ×2 (18:45→20:47)
[2024-10-15] MEDS: traZODone HCL 50 MG TABLET PO (20:47)
[2024-10-16] MEDS: HYDROmorphone HCL INJ (*CRX) 1 MG/ML SYR IV PUSH ×8 (02:06→22:36)
[2024-10-16 05:05] VITALS: BP 130/82; PULSE 85; RESP 14; TEMP 36.4; O2SAT 99
[2024-10-16 07:03] LABS: Basophils Absolute Auto 0.1 K/mm3 (0.0-0.1); Basophils Percent Auto 0.4 % (0.2-1.2); Eosinophils Absolute Auto 0.1 K/mm3 (0-0.3); Eosinophils Percent Auto 0.3 % (0-4.4); Hematocrit 45.6 % (37.0-47.0); Hemoglobin 14.9 g/dL (12.0-15.0); Immature Granulocyte Absolute 0.11 K/mm3 (0.00-0.031); Immature Granulocyte Percent A 0.6 % (0-0.5); Lymphocytes Absolute Auto 3.49 K/mm3 (0.9-3.2); Mean Corpuscular HGB Conc 32.7 g/dl (32-36); Mean Corpuscular Hemoglobin 31.7 pg (26-34); Mean Platelet Volume 9.3 fl (7.4-10.4); Monocytes Percent Auto 5.3 % (2.6-8.5); Neutrophils Absolute Auto 13.6 K/mm3 (1.3-6.7); Neutrophils Percent Auto 74.4 % (45.5-73.1); Platelet Count Result 318 k/mm3 (150-375); Red Cell Distribution Width 13.7 % (11.5-14.5); White Blood Count 18.3 K/mm3 (4.5-10.0)
[2024-10-16 07:11] LABS: Lactic Acid Reflex 1.3 mmol/L (0.7-2.0)
[2024-10-16 07:14] LABS: Alanine Aminotransferase 462 U/L (6-35); Alkaline Phosphatase 109 U/L (38-126); Anion Gap 3 mmol/L (4-12); Aspartate Amino Transferase 258 U/L (14-36); Bilirubin,Total 0.6 mg/dL (0.2-1.3); Blood Urea Nitrogen 6 mg/dL (7-17); Calcium 9.1 mg/dL (8.4-10.2); Carbon Dioxide 31 mmol/L (22-30); Chloride 104 mmol/L (98-107); Estimated CRCL calculation 85 ml/min; Estimated Glomerular Filt Rate > 60; Glucose 122 mg/dL (65-110); Magnesium 1.7 mg/dL (1.6-2.3); Potassium 4.2 mmol/L (3.4-5.0); Sodium 138 mmol/L (137-145)
[2024-10-16] MEDS: busPIRone HCL 5 MG TABLET 15 MG PO ×3 (08:35→17:26)
--- NOTE | 2024-10-16 09:56 | WPDANESPN ---
Anes - Prog Note Post-Op Date/Time: 10/16/24 09:56 Cardiovascular status: normal Respiratory status: normal Airway patency: baseline Mental status: baseline Post-Op hydration status: normal Vital Signs: Last Vital Signs Temp 36.4 C L 10/16/24 05:05 Pulse 85 10/16/24 05:05 Resp 14 10/16/24 05:05 BP 130/82 10/16/24 05:05 Pulse Ox 99 10/16/24 05:05 O2 Del Method Room Air 10/15/24 15:37 O2 Flow Rate 8 10/15/24 14:45 Pain Score (VAS): 02/26 I/O: Intake & Output 10/15/24 10/16/24 10/16/24 23:59 07:59 15:59 Intake Total 600 250 500 Balance 600 250 500 Laboratory Tests 10/16/24 06:47 10/16/24 06:47 10/16/24 06:47 WBC 18.3 H RBC 4.70 Hgb 14.9 Hct 45.6 MCV 97.0 MCH 31.7 MCHC 32.7 RDW 13.7 Plt Count 318 MPV 9.3 Immature Gran % (Auto) 0.6 H Neut % (Auto) 74.4 H Lymph % (Auto) 19.0 [place] % (Auto) 5.3 Eos % (Auto) 0.3 Baso % (Auto) 0.4 Lymph # (Auto) 3.49 H [place] # (Auto) 1.0 H Eos # (Auto) 0.1 Baso # (Auto) 0.1 Abs Immat Gran (auto) 0.11 H Absolute Neuts (auto) 13.6 H Absolute Nucleated RBC 0.000 Nucleated RBC % 0.0 Sodium 138 Potassium 4.2 Chloride 104 Carbon Dioxide 31 H Anion Gap 3 L BUN 6 L Creatinine 0.70 Estim Creat Clear Calc 85 Estimated GFR > 60 Glucose 122 H Lactic Acid 1.3 Calcium 9.1 Magnesium 1.7 Total Bilirubin 0.6 AST 258 H ALT 462 H Alkaline Phosphatase 109 Total Protein 7.0 Albumin 4.0 Post-procedural complaints: none Patient Feedback: Patient satisfied with anesthetic care.
[2024-10-16 13:00] VITALS: BP 114/68; PULSE 78; RESP 18; TEMP 36.1; O2SAT 100
--- NOTE | 2024-10-16 14:13 | PM.IMPN ---
Progress Note: A&P Assessment and Plan (1) Right ureteral stone: Code(s): N20.1 - Calculus of ureter Status: Acute (2) UTI (urinary tract infection): Code(s): N39.0 - Urinary tract infection, site not specified Status: Acute (3) Hypertension: Code(s): I10 - Essential (primary) hypertension Status: Acute Plan Right ureteral stone with hydronephrosis s/p ureteral stent still having flank pain Pain control with p.r.n. Dilaudid follow up blood culture urology following Possible UTI Patient reported dysuria with suprapubic pain. UA showed positive leukocyte esterase and nitrates Urine culture blood culture pending Continue Rocephin. Hypertension Titrate medications with clinical course. Anxiety Continue medications. PCOS Hold metformin start discharge. IBD Monitor. DVT prophylaxis on Sq Lovenox Full code , Chinmay Muñoz, surrogate decision maker. Subjective Date/time seen: 10/16/24 14:13 Interval history: patient stated she still has pain. Review of Systems Review of Systems: All other systems reviewed and negative except as noted in the history above. Exam Narrative: General: alert and comfortable Eyes: EOMI, PERRLA ENNT External ears normal, Neck is supple, no masses, Respiratory systems: Clear to auscultation Cardiovascular S1, S2, normal rhythm, no murmur, rub, or gallop; no thrill or palpable murmurs on palpation. Gastrointestinal: soft, non-tender, and non-distended abdomen with no masses; BS present Skin: no rash, lesions, ulcerations, subcutaneous nodules or induration Musculoskeletal: no abnormality and no tenderness, normal ROM Neurologic: Alert and oriented x3, non focal Mental Status Exam: normal affect Objective Data Vital Signs Vital Signs: Vital Signs - 24 hr 10/15/24 14:27 10/15/24 14:30 10/15/24 14:45 Temperature 97.6 F Pulse Rate 87 79 83 Respiratory Rate 14 20 12 Blood Pressure 92/58 L 95/62 L 114/70 Pulse Oximetry 100 100 100 Oxygen Delivery Simple Face Mask Simple Face Mask Simple Face Mask Oxygen Flow Rate 8 8 8 10/15/24 14:50 10/15/24 15:00 10/15/24 15:15 Temperature Pulse Rate 83 80 Respiratory Rate 18 18 Blood Pressure 109/76 119/76 Pulse Oximetry 100 98 98 Oxygen Delivery Room Air Room Air Room Air Oxygen Flow Rate 10/15/24 15:30 10/15/24 15:37 10/15/24 16:14 Temperature 97.8 F Pulse Rate 77 82 74 Respiratory Rate 18 18 18 Blood Pressure 111/76 108/75 117/81 Pulse Oximetry 98 98 98 Oxygen Delivery Room Air Room Air Oxygen Flow Rate 10/15/24 16:25 10/15/24 21:05 10/16/24 05:05 Temperature 98.2 F 97.7 F 97.5 F L Pulse Rate 77 88 85 Respiratory Rate 18 16 14 Blood Pressure 131/75 122/71 130/82 Pulse Oximetry 99 100 99 Oxygen Delivery Oxygen Flow Rate 10/16/24 13:00 Temperature 96.9 F L Pulse Rate 78 Respiratory Rate 18 Blood Pressure 114/68 Pulse Oximetry 100 Oxygen Delivery Oxygen Flow Rate Intake/Output Intake/Output: Intake & Output 10/13/24 10/14/24 10/15/24 10/16/24 23:59 23:59 23:59 23:59 Intake Total 2250.0 1230 Balance 2250.0 1230 Meds/Results Medications: Active Medications Generic Name Dose Route Start Last Admin Trade Name Freq PRN Reason Stop Dose Admin Buspirone HCl 15 mg 10/15/24 17:00 10/16/24 13:32 Buspirone Hcl 5 Mg Tablet PO 15 mg TID MAYO Administration Dicyclomine HCl 20 mg 10/15/24 15:07 Dicyclomine Hcl 10 Mg Capsule PO TID PRN helps stomach Fentanyl Citrate 25 mcg 10/15/24 12:12 10/15/24 15:43 Fentanyl Citrate Inj (*Crx) 100 Mcg/2 Ml Vial IV PUSH 25 mcg Q2M PRN Administration Pain Hydromorphone HCl 1 mg 10/15/24 11:12 10/16/24 13:32 Hydromorphone Hcl Inj (*Crx) 1 Mg/Ml Syr IV PUSH 1 mg Q2HR PRN Administration Pain Rated 7-10 Ceftriaxone Sodium 1 gm in 50 mls @ 100 mls/hr 10/15/24 09:00 10/16/24 09:15 Rocephin 1 Gm/Ns 50 Ml IVPB Infused Q24H MAYO Infusion Ondansetron HCl 4 mg 10/15/24 12:12 Ondansetron Inj 4 Mg/2 Ml Vial IV PUSH ONCE PRN Nausea Oxycodone HCl 5 mg 10/15/24 12:12 Oxycodone Hcl (*Crx) 5 Mg Tab Ir PO ONCE PRN Pain Trazodone HCl 50 mg 10/15/24 21:00 10/15/24 20:47 Trazodone Hcl 50 Mg Tablet PO 50 mg HS MAYO Administration Radiology Results: ITS Impressions Abdomen/Pelvis CT 10/15/24 07:02 IMPRESSION: 1. 5 mm stone in proximal right ureter with mild right hydronephrosis. 2. Nonobstructing left kidney stone. Abdomen X-Ray 10/15/24 08:59 IMPRESSION: Hydronephrotic changes in the right kidney and ureter with dilated ureter above the lumbosacral area. Definite stones is not seen in the area. Retrograde Pyelogram 10/15/24 16:09 IMPRESSION: 1. Right internal ureteral stent placement. Please refer to real-time procedural findings for details. Labs Labs: Laboratory Results - last 24 hr 10/16/24 06:47 WBC 18.3 H RBC 4.70 Hgb 14.9 Hct 45.6 MCV 97.0 MCH 31.7 MCHC 32.7 RDW 13.7 Plt Count 318 MPV 9.3 Immature Gran % (Auto) 0.6 H Neut % (Auto) 74.4 H Lymph % (Auto) 19.0 [place] % (Auto) 5.3 Eos % (Auto) 0.3 Baso % (Auto) 0.4 Lymph # (Auto) 3.49 H [place] # (Auto) 1.0 H Eos # (Auto) 0.1 Baso # (Auto) 0.1 Abs Immat Gran (auto) 0.11 H Absolute Neuts (auto) 13.6 H Absolute Nucleated RBC 0.000 Nucleated RBC % 0.0 Sodium 138 Potassium 4.2 Chloride 104 Carbon Dioxide 31 H Anion Gap 3 L BUN 6 L Creatinine 0.70 Estim Creat Clear Calc 85 Estimated GFR > 60 Glucose 122 H Lactic Acid 1.3 Calcium 9.1 Magnesium 1.7 Total Bilirubin 0.6 AST 258 H ALT 462 H Alkaline Phosphatase 109 Total Protein 7.0 Albumin 4.0
[2024-10-16 21:00] VITALS: BP 135/76; PULSE 71; RESP 14; TEMP 36.3; O2SAT 99
[2024-10-16] MEDS: traZODone HCL 50 MG TABLET PO (22:36)
[2024-10-17 05:00] VITALS: BP 153/88; PULSE 77; RESP 14; TEMP 36.4; O2SAT 100
[2024-10-17] MEDS: HYDROmorphone HCL INJ (*CRX) 1 MG/ML SYR IV PUSH ×6 (05:13→22:38)
[2024-10-17 06:07] LABS: Basophils Absolute Auto 0.1 K/mm3 (0.0-0.1); Basophils Percent Auto 0.4 % (0.2-1.2); Eosinophils Absolute Auto 0.2 K/mm3 (0-0.3); Eosinophils Percent Auto 1.6 % (0-4.4); Hematocrit 41.4 % (37.0-47.0); Hemoglobin 14.2 g/dL (12.0-15.0); Immature Granulocyte Absolute 0.07 K/mm3 (0.00-0.031); Immature Granulocyte Percent A 0.5 % (0-0.5); Lymphocytes Absolute Auto 4.23 K/mm3 (0.9-3.2); Lymphocytes Percent Auto 29.3 % (18.3-44.2); Mean Corpuscular HGB Conc 34.3 g/dl (32-36); Mean Corpuscular Hemoglobin 32.2 pg (26-34); Mean Corpuscular Volume 93.9 fl (80-100); Mean Platelet Volume 9.3 fl (7.4-10.4); Monocytes Absolute Auto 0.9 K/mm3 (0.1-0.6); Monocytes Percent Auto 6.3 % (2.6-8.5); Neutrophils Absolute Auto 8.9 K/mm3 (1.3-6.7); Neutrophils Percent Auto 61.9 % (45.5-73.1); Platelet Count Result 252 k/mm3 (150-375); Red Blood Count 4.41 M/mm3 (4.2-5.4); Red Cell Distribution Width 13.9 % (11.5-14.5); White Blood Count 14.4 K/mm3 (4.5-10.0)
[2024-10-17 06:25] LABS: Alanine Aminotransferase 260 U/L (6-35); Albumin Level 3.7 g/dL (3.5-5.1); Alkaline Phosphatase 102 U/L (38-126); Anion Gap 5 mmol/L (4-12); Aspartate Amino Transferase 63 U/L (14-36); Bilirubin,Total 0.3 mg/dL (0.2-1.3); Blood Urea Nitrogen 10 mg/dL (7-17); Calcium 8.9 mg/dL (8.4-10.2); Carbon Dioxide 27 mmol/L (22-30); Chloride 105 mmol/L (98-107); Estimated CRCL calculation 97 ml/min; Estimated Glomerular Filt Rate > 60; Glucose 106 mg/dL (65-110); Magnesium 1.7 mg/dL (1.6-2.3); Potassium 3.6 mmol/L (3.4-5.0); Sodium 137 mmol/L (137-145)
--- NOTE | 2024-10-17 10:00 | PC.NURSE ---
pt refused dose of lovenox this AM.
[2024-10-17] MEDS: busPIRone HCL 5 MG TABLET 15 MG PO ×3 (10:18→16:25)
[2024-10-17] MEDS: HYDROcodone/acetaminophen (*CRX) 10-325 MG TABLET 1 TAB PO (12:40)
--- NOTE | 2024-10-17 12:48 | PM.IMPN ---
Progress Note: A&P Assessment and Plan (1) Right ureteral stone: Code(s): N20.1 - Calculus of ureter Status: Acute (2) UTI (urinary tract infection): Code(s): N39.0 - Urinary tract infection, site not specified Status: Acute (3) Hypertension: Code(s): I10 - Essential (primary) hypertension Status: Acute Plan Right ureteral stone with hydronephrosis s/p ureteral stent still having flank pain Pain control with p.r.n. Dilaudid follow up cultures urology following Possible UTI Patient reported dysuria with suprapubic pain. UA showed positive leukocyte esterase and nitrates Urine culture negative, blood culture pending Continue Rocephin for now Hypertension Titrate medications with clinical course. Anxiety Continue medications. PCOS Hold metformin start discharge. IBD Monitor. DVT prophylaxis on Sq Lovenox Full code , Chinmay Muñoz, surrogate decision maker. Subjective Date/time seen: 10/17/24 12:48 Interval history: Patient still having intractable flank pain Urine culture negative Adjust Pain control Review of Systems Review of Systems: All other systems reviewed and negative except as noted in the history above. Exam Narrative: General: alert and comfortable Eyes: EOMI, PERRLA ENNT External ears normal, Neck is supple, no masses, Respiratory systems: Clear to auscultation Cardiovascular S1, S2, normal rhythm, no murmur, rub, or gallop; no thrill or palpable murmurs on palpation. Gastrointestinal: soft, non-tender, and non-distended abdomen with no masses; BS present Skin: no rash, lesions, ulcerations, subcutaneous nodules or induration Musculoskeletal: no abnormality and no tenderness, normal ROM Neurologic: Alert and oriented x3, non focal Mental Status Exam: normal affect Objective Data Vital Signs Vital Signs: Vital Signs - 24 hr 10/16/24 13:00 10/16/24 21:00 10/16/24 20:00 Temperature 96.9 F L 97.4 F L Pulse Rate 78 71 Respiratory Rate 18 14 Blood Pressure 114/68 135/76 Pulse Oximetry 100 99 Oxygen Delivery Room Air 10/17/24 05:00 Temperature 97.5 F L Pulse Rate 77 Respiratory Rate 14 Blood Pressure 153/88 H Pulse Oximetry 100 Oxygen Delivery Intake/Output Intake/Output: Intake & Output 10/14/24 10/15/24 10/16/24 10/17/24 23:59 23:59 23:59 23:59 Intake Total 2250.0 1470 776 Output Total 350 400 Balance 2250.0 1120 376 Meds/Results Medications: Active Medications Generic Name Dose Route Start Last Admin Trade Name Freq PRN Reason Stop Dose Admin Hydrocodone Bitart/Acetaminophen 1 tab 10/17/24 12:20 10/17/24 12:40 Hydrocodone/Acetaminophen (*Crx) 10-325 Mg Tablet PO 1 tab Q6H PRN Administration Pain Rated 7-10 Buspirone HCl 15 mg 10/15/24 17:00 10/17/24 12:40 Buspirone Hcl 5 Mg Tablet PO 15 mg TID MAYO Administration Dicyclomine HCl 20 mg 10/15/24 15:07 Dicyclomine Hcl 10 Mg Capsule PO TID PRN helps stomach Enoxaparin Sodium 40 mg 10/17/24 09:00 10/17/24 10:20 Enoxaparin 40 Mg/0.4 Ml Syringe SUB-Q Not Given DAILY [facility] Fentanyl Citrate 25 mcg 10/15/24 12:12 10/15/24 15:43 Fentanyl Citrate Inj (*Crx) 100 Mcg/2 Ml Vial IV PUSH 25 mcg Q2M PRN Administration Pain Hydromorphone HCl 1 mg 10/15/24 11:12 10/17/24 10:16 Hydromorphone Hcl Inj (*Crx) 1 Mg/Ml Syr IV PUSH 1 mg Q2HR PRN Administration Pain Rated 7-10 Ceftriaxone Sodium 1 gm in 50 mls @ 100 mls/hr 10/15/24 09:00 10/17/24 10:18 Rocephin 1 Gm/Ns 50 Ml IVPB 100 mls/hr Q24H MAYO Administration Ondansetron HCl 4 mg 10/15/24 12:12 Ondansetron Inj 4 Mg/2 Ml Vial IV PUSH ONCE PRN Nausea Oxycodone HCl 5 mg 10/15/24 12:12 Oxycodone Hcl (*Crx) 5 Mg Tab Ir PO ONCE PRN Pain Trazodone HCl 50 mg 10/15/24 21:00 10/16/24 22:36 Trazodone Hcl 50 Mg Tablet PO 50 mg HS MAYO Administration Radiology Results: ITS Impressions Abdomen/Pelvis CT 10/15/24 07:02 IMPRESSION: 1. 5 mm stone in proximal right ureter with mild right hydronephrosis. 2. Nonobstructing left kidney stone. Abdomen X-Ray 10/15/24 08:59 IMPRESSION: Hydronephrotic changes in the right kidney and ureter with dilated ureter above the lumbosacral area. Definite stones is not seen in the area. Retrograde Pyelogram 10/15/24 16:09 IMPRESSION: 1. Right internal ureteral stent placement. Please refer to real-time procedural findings for details. Labs Labs: Laboratory Results - last 24 hr 10/17/24 05:56 WBC 14.4 H RBC 4.41 Hgb 14.2 Hct 41.4 MCV 93.9 MCH 32.2 MCHC 34.3 RDW 13.9 Plt Count 252 MPV 9.3 Immature Gran % (Auto) 0.5 Neut % (Auto) 61.9 Lymph % (Auto) 29.3 Dane % (Auto) 6.3 Eos % (Auto) 1.6 Baso % (Auto) 0.4 Lymph # (Auto) 4.23 H Dane # (Auto) 0.9 H Eos # (Auto) 0.2 Baso # (Auto) 0.1 Abs Immat Gran (auto) 0.07 H Absolute Neuts (auto) 8.9 H Absolute Nucleated RBC 0.000 Nucleated RBC % 0.0 Sodium 137 Potassium 3.6 Chloride 105 Carbon Dioxide 27 Anion Gap 5 BUN 10 Creatinine 0.60 L Estim Creat Clear Calc 97 Estimated GFR > 60 Glucose 106 Calcium 8.9 Magnesium 1.7 Total Bilirubin 0.3 AST 63 H ALT 260 H Alkaline Phosphatase 102 Total Protein 7.0 Albumin 3.7
[2024-10-17 13:00] VITALS: BP 125/68; PULSE 71; RESP 16; TEMP 36.3; O2SAT 99
[2024-10-17] MEDS: KETOROLAC 30 MG/ML VIAL (*BKC) IM (15:26)
--- NOTE | 2024-10-17 19:26 | PC.NURSE ---
notified exchange of on-call urologist, Dr. Pineda, of ordered imaging results. Awaiting return call.
[2024-10-17 20:00] VITALS: BP 114/67; PULSE 78; RESP 18; TEMP 36.3; O2SAT 97
[2024-10-17] MEDS: traZODone HCL 50 MG TABLET PO (22:37)
[2024-10-17] MEDS: oxyBUTYnin CHLORIDE 2.5 MG TAB PO (22:38)
[2024-10-17] MEDS: TAMSULOSIN HCL 0.4 MG CAPSULE PO (22:38)
[2024-10-18 05:00] VITALS: BP 135/74; PULSE 89; RESP 20; TEMP 36.2; O2SAT 99
[2024-10-18] MEDS: HYDROmorphone HCL INJ (*CRX) 1 MG/ML SYR IV PUSH ×8 (05:21→22:50)
[2024-10-18 07:00] LABS: Basophils Absolute Auto 0.1 K/mm3 (0.0-0.1); Basophils Percent Auto 0.7 % (0.2-1.2); Eosinophils Absolute Auto 0.4 K/mm3 (0-0.3); Hematocrit 43.2 % (37.0-47.0); Hemoglobin 14.2 g/dL (12.0-15.0); Immature Granulocyte Absolute 0.08 K/mm3 (0.00-0.031); Immature Granulocyte Percent A 0.6 % (0-0.5); Lymphocytes Absolute Auto 3.32 K/mm3 (0.9-3.2); Lymphocytes Percent Auto 24.7 % (18.3-44.2); Mean Corpuscular HGB Conc 32.9 g/dl (32-36); Mean Corpuscular Hemoglobin 31.5 pg (26-34); Mean Corpuscular Volume 95.8 fl (80-100); Mean Platelet Volume 9.6 fl (7.4-10.4); Monocytes Absolute Auto 0.8 K/mm3 (0.1-0.6); Monocytes Percent Auto 5.6 % (2.6-8.5); Neutrophils Absolute Auto 8.8 K/mm3 (1.3-6.7); Neutrophils Percent Auto 65.4 % (45.5-73.1); Platelet Count Result 283 k/mm3 (150-375); Red Blood Count 4.51 M/mm3 (4.2-5.4); Red Cell Distribution Width 13.7 % (11.5-14.5); White Blood Count 13.4 K/mm3 (4.5-10.0)
[2024-10-18 07:15] LABS: Alanine Aminotransferase 169 U/L (6-35); Albumin Level 3.6 g/dL (3.5-5.1); Alkaline Phosphatase 79 U/L (38-126); Anion Gap 3 mmol/L (4-12); Aspartate Amino Transferase 41 U/L (14-36); Bilirubin,Total 0.5 mg/dL (0.2-1.3); Blood Urea Nitrogen 10 mg/dL (7-17); Calcium 8.8 mg/dL (8.4-10.2); Carbon Dioxide 30 mmol/L (22-30); Chloride 105 mmol/L (98-107); Estimated CRCL calculation 85 ml/min; Estimated Glomerular Filt Rate > 60; Glucose 116 mg/dL (65-110); Magnesium 1.8 mg/dL (1.6-2.3); Potassium 4.3 mmol/L (3.4-5.0); Sodium 138 mmol/L (137-145)
[2024-10-18] MEDS: busPIRone HCL 5 MG TABLET 15 MG PO ×3 (09:12→17:55)
[2024-10-18] MEDS: ENOXAPARIN 40 MG/0.4 ML SYRINGE SUB-Q (09:12)
--- NOTE | 2024-10-18 11:01 | PM.IMPN ---
Progress Note: A&P Assessment and Plan (1) Right ureteral stone: Code(s): N20.1 - Calculus of ureter Status: Acute (2) UTI (urinary tract infection): Code(s): N39.0 - Urinary tract infection, site not specified Status: Acute (3) Hypertension: Code(s): I10 - Essential (primary) hypertension Status: Acute Plan Right ureteral stone with hydronephrosis BIlateral Kidney stones now s/p right ureteral stent still having flank pain, repeat CT AP showed bilateral stones with right ureteral stents present Pain control with p.r.n. Dilaudid follow up cultures urology following Possible UTI Patient reported dysuria with suprapubic pain. UA showed positive leukocyte esterase and nitrates Urine culture negative, blood culture pending given that patient reported dysuria will continue Antibiotics Continue Rocephin for now Constipation Continue MIralax CT AP showed constipation Hypertension Titrate medications with clinical course. Anxiety Continue medications. PCOS Hold metformin start discharge. IBD Monitor. DVT prophylaxis on Sq Lovenox Subjective Date/time seen: 10/18/24 11:01 Interval history: Patient still having intractable flank pain Urine culture negative Repeat CT AP showed bilateral kidney stones, prior CT showed Right kidney stones Review of Systems Review of Systems: All other systems reviewed and negative except as noted in the history above. Exam Narrative: General: alert and comfortable Eyes: EOMI, PERRLA ENNT External ears normal, Neck is supple, no masses, Respiratory systems: Clear to auscultation Cardiovascular S1, S2, normal rhythm, no murmur, rub, or gallop; no thrill or palpable murmurs on palpation. Gastrointestinal: soft, non-tender, and non-distended abdomen with no masses; BS present Skin: no rash, lesions, ulcerations, subcutaneous nodules or induration Musculoskeletal: no abnormality and no tenderness, normal ROM Neurologic: Alert and oriented x3, non focal Mental Status Exam: normal affect Objective Data Vital Signs Vital Signs: Vital Signs - 24 hr 10/17/24 13:00 10/17/24 20:00 10/17/24 20:00 Temperature 97.4 F L 97.4 F L Pulse Rate 71 78 Respiratory Rate 16 18 Blood Pressure 125/68 114/67 Pulse Oximetry 99 97 Oxygen Delivery Room Air 10/18/24 05:00 10/18/24 08:00 Temperature 97.2 F L Pulse Rate 89 Respiratory Rate 20 Blood Pressure 135/74 Pulse Oximetry 99 Oxygen Delivery Room Air Intake/Output Intake/Output: Intake & Output 10/15/24 10/16/24 10/17/24 10/18/24 23:59 23:59 23:59 23:59 Intake Total 2250.0 1470 1066 558 Output Total 350 600 900 Balance 2250.0 1120 466 -342 Meds/Results Medications: Active Medications Generic Name Dose Route Start Last Admin Trade Name Freq PRN Reason Stop Dose Admin Hydrocodone Bitart/Acetaminophen 1 tab 10/17/24 12:20 10/17/24 12:40 Hydrocodone/Acetaminophen (*Crx) 10-325 Mg Tablet PO 1 tab Q6H PRN Administration Pain Rated 7-10 Buspirone HCl 15 mg 10/15/24 17:00 10/18/24 09:12 Buspirone Hcl 5 Mg Tablet PO 15 mg TID MAYO Administration Dicyclomine HCl 20 mg 10/15/24 15:07 Dicyclomine Hcl 10 Mg Capsule PO TID PRN helps stomach Enoxaparin Sodium 40 mg 10/17/24 09:00 10/18/24 09:12 Enoxaparin 40 Mg/0.4 Ml Syringe SUB-Q 40 mg DAILY MAYO Administration Fentanyl Citrate 25 mcg 10/15/24 12:12 10/15/24 15:43 Fentanyl Citrate Inj (*Crx) 100 Mcg/2 Ml Vial IV PUSH 25 mcg Q2M PRN Administration Pain Hydromorphone HCl 1 mg 10/15/24 11:12 10/18/24 09:50 Hydromorphone Hcl Inj (*Crx) 1 Mg/Ml Syr IV PUSH 1 mg Q2HR PRN Administration Pain Rated 7-10 Ceftriaxone Sodium 1 gm in 50 mls @ 100 mls/hr 10/15/24 09:00 10/18/24 09:43 Rocephin 1 Gm/Ns 50 Ml IVPB Infused Q24H MAYO Infusion Ketorolac Tromethamine 30 mg 10/17/24 14:47 10/17/24 15:26 Ketorolac 30 Mg/Ml Vial (*Bkc) IM 30 mg Q6H PRN Administration Pain Rated 4-6 Ondansetron HCl 4 mg 10/15/24 12:12 Ondansetron Inj 4 Mg/2 Ml Vial IV PUSH ONCE PRN Nausea Oxybutynin Chloride 2.5 mg 10/17/24 19:34 10/17/24 22:38 Oxybutynin Chloride 2.5 Mg Tab PO 2.5 mg DAILY PRN Administration stent discomfort Oxycodone HCl 5 mg 10/15/24 12:12 Oxycodone Hcl (*Crx) 5 Mg Tab Ir PO ONCE PRN Pain Phenazopyridine HCl 100 mg 10/17/24 19:32 Phenazopyridine Hcl 100 Mg Tablet PO TID PRN Dysuria Polyethylene Glycol 17 gm 10/19/24 09:00 Polyethylene Glycol 3350 17 Gm Powd.Pack PO QAM MAYO Tamsulosin HCl 0.4 mg 10/17/24 21:00 10/17/24 22:38 Tamsulosin Hcl 0.4 Mg Capsule PO 0.4 mg HS MAYO Administration Trazodone HCl 50 mg 10/15/24 21:00 10/17/24 22:37 Trazodone Hcl 50 Mg Tablet PO 50 mg HS MAYO Administration Radiology Results: ITS Impressions Abdomen X-Ray 10/15/24 08:59 IMPRESSION: Hydronephrotic changes in the right kidney and ureter with dilated ureter above the lumbosacral area. Definite stones is not seen in the area. Retrograde Pyelogram 10/15/24 16:09 IMPRESSION: 1. Right internal ureteral stent placement. Please refer to real-time procedural findings for details. Abdomen/Pelvis CT 10/17/24 17:49 IMPRESSION: 1. Bilateral kidney stones with the right double-J stent. 2. Slightly prominent ovaries. Clinical correlation and follow-up advised. 3. Constipation. Labs Labs: Laboratory Results - last 24 hr 10/18/24 06:11 WBC 13.4 H RBC 4.51 Hgb 14.2 Hct 43.2 MCV 95.8 MCH 31.5 MCHC 32.9 RDW 13.7 Plt Count 283 MPV 9.6 Immature Gran % (Auto) 0.6 H Neut % (Auto) 65.4 Lymph % (Auto) 24.7 [place] % (Auto) 5.6 Eos % (Auto) 3.0 Baso % (Auto) 0.7 Lymph # (Auto) 3.32 H [place] # (Auto) 0.8 H Eos # (Auto) 0.4 H Baso # (Auto) 0.1 Abs Immat Gran (auto) 0.08 H Absolute Neuts (auto) 8.8 H Absolute Nucleated RBC 0.000 Nucleated RBC % 0.0 Sodium 138 Potassium 4.3 Chloride 105 Carbon Dioxide 30 Anion Gap 3 L BUN 10 Creatinine 0.70 Estim Creat Clear Calc 85 Estimated GFR > 60 Glucose 116 H Calcium 8.8 Magnesium 1.8 Total Bilirubin 0.5 AST 41 H ALT 169 H Alkaline Phosphatase 79 Total Protein 7.0 Albumin 3.6
[2024-10-18 13:00] VITALS: BP 120/63; PULSE 71; RESP 18; TEMP 36.3; O2SAT 100
[2024-10-18] MEDS: TAMSULOSIN HCL 0.4 MG CAPSULE PO (20:10)
[2024-10-18 21:00] VITALS: BP 130/73; PULSE 71; RESP 18; TEMP 36.2; O2SAT 100
[2024-10-18] MEDS: traZODone HCL 50 MG TABLET PO (22:50)
[2024-10-19] MEDS: HYDROmorphone HCL INJ (*CRX) 1 MG/ML SYR IV PUSH ×9 (02:55→23:55)
[2024-10-19 05:00] VITALS: BP 104/72; PULSE 72; RESP 18; TEMP 36.6; O2SAT 97
[2024-10-19 06:50] LABS: Basophils Absolute Auto 0.1 K/mm3 (0.0-0.1); Basophils Percent Auto 0.8 % (0.2-1.2); Eosinophils Absolute Auto 0.3 K/mm3 (0-0.3); Eosinophils Percent Auto 2.5 % (0-4.4); Hematocrit 43.6 % (37.0-47.0); Hemoglobin 14.7 g/dL (12.0-15.0); Immature Granulocyte Absolute 0.06 K/mm3 (0.00-0.031); Immature Granulocyte Percent A 0.5 % (0-0.5); Lymphocytes Absolute Auto 2.95 K/mm3 (0.9-3.2); Lymphocytes Percent Auto 22.3 % (18.3-44.2); Mean Corpuscular HGB Conc 33.7 g/dl (32-36); Mean Corpuscular Hemoglobin 32.4 pg (26-34); Mean Platelet Volume 9.8 fl (7.4-10.4); Monocytes Absolute Auto 0.8 K/mm3 (0.1-0.6); Monocytes Percent Auto 5.9 % (2.6-8.5); Platelet Count Result 256 k/mm3 (150-375); Red Blood Count 4.54 M/mm3 (4.2-5.4); Red Cell Distribution Width 13.7 % (11.5-14.5); White Blood Count 13.2 K/mm3 (4.5-10.0)
[2024-10-19 07:09] LABS: Alanine Aminotransferase 123 U/L (6-35); Albumin Level 3.8 g/dL (3.5-5.1); Alkaline Phosphatase 72 U/L (38-126); Anion Gap 4 mmol/L (4-12); Aspartate Amino Transferase 38 U/L (14-36); Bilirubin,Total 0.7 mg/dL (0.2-1.3); Blood Urea Nitrogen 9 mg/dL (7-17); Calcium 9.1 mg/dL (8.4-10.2); Carbon Dioxide 26 mmol/L (22-30); Chloride 105 mmol/L (98-107); Estimated CRCL calculation 97 ml/min; Estimated Glomerular Filt Rate > 60; Glucose 105 mg/dL (65-110); Magnesium 1.9 mg/dL (1.6-2.3); Potassium 4.5 mmol/L (3.4-5.0); Sodium 135 mmol/L (137-145)
[2024-10-19] MEDS: polyethylene glycoL 3350 17 GM POWD.PACK PO (08:37)
[2024-10-19] MEDS: ENOXAPARIN 40 MG/0.4 ML SYRINGE SUB-Q (08:38)
[2024-10-19] MEDS: busPIRone HCL 5 MG TABLET 15 MG PO ×3 (08:38→16:48)
[2024-10-19 13:00] VITALS: BP 113/73; PULSE 67; RESP 18; TEMP 35.8; O2SAT 99
--- NOTE | 2024-10-19 13:24 | P.PNIM_ITS ---
Progress Note: A&P Assessment and Plan (1) Right ureteral stone: Code(s): N20.1 - Calculus of ureter Status: Acute (2) UTI (urinary tract infection): Code(s): N39.0 - Urinary tract infection, site not specified Status: Acute (3) Hypertension: Code(s): I10 - Essential (primary) hypertension Status: Acute Plan Right ureteral stone with hydronephrosis BIlateral Kidney stones now s/p right ureteral stent still having flank pain, repeat CT AP showed bilateral stones with right ureteral stents present Pain control with p.r.n. Dilaudid awaiting better pain control for discharge urology evaluated and noted that patient can be discharged, awaiting pain control Possible UTI Patient reported dysuria with suprapubic pain. UA showed positive leukocyte esterase and nitrates Urine culture negative, blood culture pending given that patient reported dysuria will continue Antibiotics Continue Rocephin for now Constipation Continue MIralax CT AP showed constipation Hypertension Titrate medications with clinical course. Anxiety Continue medications. PCOS Hold metformin start discharge. IBD Monitor. DVT prophylaxis on Sq Lovenox Subjective Date/time seen: 10/19/24 13:24 Interval history: Patient still having intractable flank pain Urine culture negative urology evaluated and noted that patient can follow up outpatient Awaiting better control for discharge Review of Systems Review of Systems: All other systems reviewed and negative except as noted in the history above. Exam Narrative: General: alert and comfortable Eyes: EOMI, PERRLA ENNT External ears normal, Neck is supple, no masses, Respiratory systems: Clear to auscultation Cardiovascular S1, S2, normal rhythm, no murmur, rub, or gallop; no thrill or palpable murmurs on palpation. Gastrointestinal: soft, non-tender, and non-distended abdomen with no masses; BS present Skin: no rash, lesions, ulcerations, subcutaneous nodules or induration Musculoskeletal: no abnormality and no tenderness, normal ROM Neurologic: Alert and oriented x3, non focal Mental Status Exam: normal affect Objective Data Vital Signs Vital Signs: Vital Signs - 24 hr 10/18/24 21:00 10/19/24 05:00 10/19/24 08:00 Temperature 97.2 F L 97.9 F Pulse Rate 71 72 Respiratory Rate 18 18 Blood Pressure 130/73 104/72 Pulse Oximetry 100 97 Oxygen Delivery Room Air Intake/Output Intake/Output: Intake & Output 11/28/24 11/29/24 11/30/24 12/01/24 23:59 23:59 23:59 23:59 Intake Total 1470 1066 1038 250 Output Total 350 600 900 600 Balance 1120 466 138 -350 Meds/Results Medications: Active Medications Generic Name Dose Route Start Last Admin Trade Name Freq PRN Reason Stop Dose Admin Hydrocodone Bitart/Acetaminophen 1 tab 10/17/24 12:20 10/17/24 12:40 Hydrocodone/Acetaminophen (*Crx) 10-325 Mg Tablet PO 1 tab Q6H PRN Administration Pain Rated 7-10 Buspirone HCl 15 mg 10/15/24 17:00 10/19/24 13:13 Buspirone Hcl 5 Mg Tablet PO 15 mg TID MAYO Administration Dicyclomine HCl 20 mg 10/15/24 15:07 Dicyclomine Hcl 10 Mg Capsule PO TID PRN helps stomach Enoxaparin Sodium 40 mg 10/17/24 09:00 10/19/24 08:38 Enoxaparin 40 Mg/0.4 Ml Syringe SUB-Q 40 mg DAILY MAYO Administration Fentanyl Citrate 25 mcg 10/15/24 12:12 10/15/24 15:43 Fentanyl Citrate Inj (*Crx) 100 Mcg/2 Ml Vial IV PUSH 25 mcg Q2M PRN Administration Pain Hydromorphone HCl 1 mg 10/15/24 11:12 10/19/24 13:13 Hydromorphone Hcl Inj (*Crx) 1 Mg/Ml Syr IV PUSH 1 mg Q2HR PRN Administration Pain Rated 7-10 Ceftriaxone Sodium 1 gm in 50 mls @ 100 mls/hr 10/15/24 09:00 10/19/24 08:38 Rocephin 1 Gm/Ns 50 Ml IVPB 100 mls/hr Q24H MAYO Administration Ketorolac Tromethamine 30 mg 10/17/24 14:47 10/17/24 15:26 Ketorolac 30 Mg/Ml Vial (*Bkc) IM 30 mg Q6H PRN Administration Pain Rated 4-6 Ondansetron HCl 4 mg 10/15/24 12:12 Ondansetron Inj 4 Mg/2 Ml Vial IV PUSH ONCE PRN Nausea Oxybutynin Chloride 2.5 mg 10/17/24 19:34 10/17/24 22:38 Oxybutynin Chloride 2.5 Mg Tab PO 2.5 mg DAILY PRN Administration stent discomfort Oxycodone HCl 5 mg 10/15/24 12:12 Oxycodone Hcl (*Crx) 5 Mg Tab Ir PO ONCE PRN Pain Phenazopyridine HCl 100 mg 10/17/24 19:32 Phenazopyridine Hcl 100 Mg Tablet PO TID PRN Dysuria Polyethylene Glycol 17 gm 10/19/24 09:00 10/19/24 08:37 Polyethylene Glycol 3350 17 Gm Powd.Pack PO 17 gm QAM MAYO Administration Tamsulosin HCl 0.4 mg 10/17/24 21:00 10/18/24 20:10 Tamsulosin Hcl 0.4 Mg Capsule PO 0.4 mg HS MAYO Administration Trazodone HCl 50 mg 10/15/24 21:00 10/18/24 22:50 Trazodone Hcl 50 Mg Tablet PO 50 mg HS MAYO Administration Radiology Results: ITS Impressions Abdomen X-Ray 10/15/24 08:59 IMPRESSION: Hydronephrotic changes in the right kidney and ureter with dilated ureter above the lumbosacral area. Definite stones is not seen in the area. Retrograde Pyelogram 10/15/24 16:09 IMPRESSION: 1. Right internal ureteral stent placement. Please refer to real-time procedural findings for details. Abdomen/Pelvis CT 10/17/24 17:49 IMPRESSION: 1. Bilateral kidney stones with the right double-J stent. 2. Slightly prominent ovaries. Clinical correlation and follow-up advised. 3. Constipation. Labs Labs: Laboratory Results - last 24 hr 10/19/24 06:29 WBC 13.2 H RBC 4.54 Hgb 14.7 Hct 43.6 MCV 96.0 MCH 32.4 MCHC 33.7 RDW 13.7 Plt Count 256 MPV 9.8 Immature Gran % (Auto) 0.5 Neut % (Auto) 68.0 Lymph % (Auto) 22.3 [place] % (Auto) 5.9 Eos % (Auto) 2.5 Baso % (Auto) 0.8 Lymph # (Auto) 2.95 [place] # (Auto) 0.8 H Eos # (Auto) 0.3 Baso # (Auto) 0.1 Abs Immat Gran (auto) 0.06 H Absolute Neuts (auto) 9.0 H Absolute Nucleated RBC 0.000 Nucleated RBC % 0.0 Sodium 135 L Potassium 4.5 Chloride 105 Carbon Dioxide 26 Anion Gap 4 BUN 9 Creatinine 0.60 L Estim Creat Clear Calc 97 Estimated GFR > 60 Glucose 105 Calcium 9.1 Magnesium 1.9 Total Bilirubin 0.7 AST 38 H ALT 123 H Alkaline Phosphatase 72 Total Protein 7.0 Albumin 3.8
[2024-10-19 21:00] VITALS: BP 133/79; PULSE 80; RESP 18; TEMP 36.4; O2SAT 99
[2024-10-19] MEDS: TAMSULOSIN HCL 0.4 MG CAPSULE PO (21:26)
[2024-10-19] MEDS: traZODone HCL 50 MG TABLET PO (23:55)
[2024-10-20] VITALS (9 sets, daily range): BP systolic 82–109; BP diastolic 52–81; PULSE 70–88; RESP 14–20; TEMP 36.2–36.8; O2SAT 95–100
[2024-10-20] MEDS: HYDROmorphone HCL INJ (*CRX) 1 MG/ML SYR IV PUSH ×5 (04:24→21:17)
[2024-10-20 07:25] LABS: Basophils Absolute Auto 0.1 K/mm3 (0.0-0.1); Basophils Percent Auto 0.4 % (0.2-1.2); Eosinophils Absolute Auto 0.7 K/mm3 (0-0.3); Eosinophils Percent Auto 2.7 % (0-4.4); Hematocrit 43.8 % (37.0-47.0); Hemoglobin 14.5 g/dL (12.0-15.0); Immature Granulocyte Absolute 0.11 K/mm3 (0.00-0.031); Immature Granulocyte Percent A 0.5 % (0-0.5); Lymphocytes Absolute Auto 2.62 K/mm3 (0.9-3.2); Lymphocytes Percent Auto 10.9 % (18.3-44.2); Mean Corpuscular HGB Conc 33.1 g/dl (32-36); Mean Corpuscular Hemoglobin 31.9 pg (26-34); Mean Corpuscular Volume 96.5 fl (80-100); Mean Platelet Volume 9.5 fl (7.4-10.4); Monocytes Absolute Auto 1.4 K/mm3 (0.1-0.6); Neutrophils Absolute Auto 19.1 K/mm3 (1.3-6.7); Neutrophils Percent Auto 79.5 % (45.5-73.1); Platelet Count Result 287 k/mm3 (150-375); Red Blood Count 4.54 M/mm3 (4.2-5.4); Red Cell Distribution Width 13.7 % (11.5-14.5)
[2024-10-20 07:51] LABS: Alanine Aminotransferase 102 U/L (6-35); Albumin Level 4.1 g/dL (3.5-5.1); Alkaline Phosphatase 81 U/L (38-126); Anion Gap 7 mmol/L (4-12); Aspartate Amino Transferase 38 U/L (14-36); Bilirubin,Total 0.5 mg/dL (0.2-1.3); Blood Urea Nitrogen 9 mg/dL (7-17); Calcium 9.2 mg/dL (8.4-10.2); Carbon Dioxide 23 mmol/L (22-30); Chloride 104 mmol/L (98-107); Estimated CRCL calculation 115 ml/min; Estimated Glomerular Filt Rate > 60; Glucose 111 mg/dL (65-110); Magnesium 1.9 mg/dL (1.6-2.3); Potassium 4.2 mmol/L (3.4-5.0); Sodium 134 mmol/L (137-145)
--- NOTE | 2024-10-20 08:16 | WPDUROPN2 ---
Progress Note: A&P Assessment and Plan (1) Right ureteral stone: Code(s): N20.1 - Calculus of ureter Status: Acute Assessment and Plan: urine culture negative. Notes stent discomfort. Stent has been in place since Sunday. I offered left ureteroscopy today with stone extraction. She would like to proceed. She understands risks of bleeding, infection, damage to urinary tract, inability to remove the stone. I may or may not replace the stent based on operative findings. Can be discharged home postprocedure if all goes well. Will need outpatient follow-up of her lower pole contralateral kidney stones (2) Kidney stone: Code(s): N20.0 - Calculus of kidney Status: Acute Assessment and Plan: large left lower pole Subjective Subjective Date/Time Seen: 10/20/24 08:16 Review of Systems Review of Systems: still has right flank pain. I suspect stent discomfort. CT scan reviewed. Has left lower pole stone which is not causing issues. Right-sided ureteral stone may be pushed into the kidney. Stent is in place. urine culture is negative Exam Narrative: Holding her right flank alert orient x3 was asleep when I walked into the room. Answers questions appropriately Objective Data Vital Signs Vital Signs: Vital Signs - 24 hr 10/19/24 13:00 10/19/24 21:00 10/20/24 05:00 Temperature 96.4 F L 97.6 F 98.0 F Pulse Rate 67 80 79 Respiratory Rate 18 18 16 Blood Pressure 113/73 133/79 102/72 Pulse Oximetry 99 99 95 Intake/Output Intake/Output: Intake & Output 10/17/24 10/18/24 10/19/24 10/20/24 23:59 23:59 23:59 23:59 Intake Total 1066 1038 780 200 Output Total 600 900 600 Balance 466 138 180 200 Meds/Results Medications: Active Medications Generic Name Dose Route Start Last Admin Trade Name Freq PRN Reason Stop Dose Admin Hydrocodone Bitart/Acetaminophen 1 tab 10/17/24 12:20 10/17/24 12:40 Hydrocodone/Acetaminophen (*Crx) 10-325 Mg Tablet PO 1 tab Q6H PRN Administration Pain Rated 7-10 Buspirone HCl 15 mg 10/15/24 17:00 10/19/24 16:48 Buspirone Hcl 5 Mg Tablet PO 15 mg TID MAYO Administration Dicyclomine HCl 20 mg 10/15/24 15:07 Dicyclomine Hcl 10 Mg Capsule PO TID PRN helps stomach Enoxaparin Sodium 40 mg 10/17/24 09:00 10/19/24 08:38 Enoxaparin 40 Mg/0.4 Ml Syringe SUB-Q 40 mg DAILY MAYO Administration Fentanyl Citrate 25 mcg 10/15/24 12:12 10/15/24 15:43 Fentanyl Citrate Inj (*Crx) 100 Mcg/2 Ml Vial IV PUSH 25 mcg Q2M PRN Administration Pain Hydromorphone HCl 1 mg 10/15/24 11:12 10/20/24 06:29 Hydromorphone Hcl Inj (*Crx) 1 Mg/Ml Syr IV PUSH 1 mg Q2HR PRN Administration Pain Rated 7-10 Ceftriaxone Sodium 1 gm in 50 mls @ 100 mls/hr 10/15/24 09:00 10/19/24 09:08 Rocephin 1 Gm/Ns 50 Ml IVPB Infused Q24H [facility] Infusion Ketorolac Tromethamine 30 mg 10/17/24 14:47 10/17/24 15:26 Ketorolac 30 Mg/Ml Vial (*Bkc) IM 30 mg Q6H PRN Administration Pain Rated 4-6 Ondansetron HCl 4 mg 10/15/24 12:12 Ondansetron Inj 4 Mg/2 Ml Vial IV PUSH ONCE PRN Nausea Oxybutynin Chloride 2.5 mg 10/17/24 19:34 10/17/24 22:38 Oxybutynin Chloride 2.5 Mg Tab PO 2.5 mg DAILY PRN Administration stent discomfort Oxycodone HCl 5 mg 10/15/24 12:12 Oxycodone Hcl (*Crx) 5 Mg Tab Ir PO ONCE PRN Pain Phenazopyridine HCl 100 mg 10/17/24 19:32 Phenazopyridine Hcl 100 Mg Tablet PO TID PRN Dysuria Polyethylene Glycol 17 gm 10/19/24 09:00 10/19/24 08:37 Polyethylene Glycol 3350 17 Gm Powd.Pack PO 17 gm QAM MAYO Administration Tamsulosin HCl 0.4 mg 10/17/24 21:00 10/19/24 21:26 Tamsulosin Hcl 0.4 Mg Capsule PO 0.4 mg HS MAYO Administration Trazodone HCl 50 mg 10/15/24 21:00 10/19/24 23:55 Trazodone Hcl 50 Mg Tablet PO 50 mg HS MAYO Administration Radiology Results: ITS Impressions Abdomen X-Ray 10/15/24 08:59 IMPRESSION: Hydronephrotic changes in the right kidney and ureter with dilated ureter above the lumbosacral area. Definite stones is not seen in the area. Retrograde Pyelogram 10/15/24 16:09 IMPRESSION: 1. Right internal ureteral stent placement. Please refer to real-time procedural findings for details. Abdomen/Pelvis CT 10/17/24 17:49 IMPRESSION: 1. Bilateral kidney stones with the right double-J stent. 2. Slightly prominent ovaries. Clinical correlation and follow-up advised. 3. Constipation. Labs Labs: Laboratory Results - last 24 hr 10/20/24 06:46 Sodium 134 L Potassium 4.2 Chloride 104 Carbon Dioxide 23 Anion Gap 7 BUN 9 Creatinine 0.50 L Estim Creat Clear Calc 115 Estimated GFR > 60 Glucose 111 H Calcium 9.2 Magnesium 1.9 Total Bilirubin 0.5 AST 38 H ALT 102 H Alkaline Phosphatase 81 Total Protein 7.0 Albumin 4.1
--- NOTE | 2024-10-20 08:18 | WPDHPUPDATE1 ---
History and Physical Update Update Date/Time: 10/20/24 08:18 History and Physical has been reviewed, including an updated exam of the patient. There are NO changes in the patient's condition. Risks, benefits, and alternatives have been discussed and questions answered. Patient agrees to proceed with procedure.
[2024-10-20] MEDS: busPIRone HCL 5 MG TABLET 15 MG PO ×3 (08:55→18:30)
--- NOTE | 2024-10-20 11:17 | PM.IMPN ---
Progress Note: A&P Assessment and Plan (1) Right ureteral stone: Code(s): N20.1 - Calculus of ureter Status: Acute (2) UTI (urinary tract infection): Code(s): N39.0 - Urinary tract infection, site not specified Status: Acute (3) Hypertension: Code(s): I10 - Essential (primary) hypertension Status: Acute Plan Right ureteral stone with hydronephrosis Bilateral Kidney stones now s/p right ureteral stent repeat CT AP showed bilateral stones with right ureteral stents present For ureteroscopy for stone extraction today Urology following Possible UTI Worsening leukocytosis likley from ureteral stone as urine culture is negative Patient reported dysuria with suprapubic pain. UA showed positive leukocyte esterase and nitrates Urine culture negative, blood culture pending Continue Rocephin for now and monitor WBC monitor leukocytosis Constipation Continue Miralax CT AP showed constipation Hypertension Titrate medications with clinical course. Anxiety Continue medications. PCOS Hold metformin start discharge. IBD Monitor. DVT prophylaxis on Sq Lovenox Subjective Date/time seen: 10/20/24 11:17 Interval history: Urology taking patient for ureteroscopy for stone extraction today patient has been having intractable bilateral flank pain with new left ureteral stone of repeat CT AP Here initially for Right ureteral stone had stent placed and started having new left sided pain which showed left ureteral stone for which she is going for Ureteroscopy today Review of Systems Review of Systems: All other systems reviewed and negative except as noted in the history above. Exam Narrative: General: alert and comfortable Eyes: EOMI, PERRLA ENNT External ears normal, Neck is supple, no masses, Respiratory systems: Clear to auscultation Cardiovascular S1, S2, normal rhythm, no murmur, rub, or gallop; no thrill or palpable murmurs on palpation. Gastrointestinal: soft, non-tender, and non-distended abdomen with no masses; BS present Skin: no rash, lesions, ulcerations, subcutaneous nodules or induration Musculoskeletal: no abnormality and no tenderness, normal ROM Neurologic: Alert and oriented x3, non focal Mental Status Exam: normal affect Objective Data Vital Signs Vital Signs: Vital Signs - 24 hr 10/19/24 13:00 10/19/24 21:00 10/20/24 05:00 Temperature 96.4 F L 97.6 F 98.0 F Pulse Rate 67 80 79 Respiratory Rate 18 18 16 Blood Pressure 113/73 133/79 102/72 Pulse Oximetry 99 99 95 Oxygen Delivery 10/20/24 08:55 Temperature Pulse Rate Respiratory Rate Blood Pressure Pulse Oximetry Oxygen Delivery Room Air Intake/Output Intake/Output: Intake & Output 10/17/24 10/18/24 10/19/24 10/20/24 23:59 23:59 23:59 23:59 Intake Total 1066 1038 780 200 Output Total 600 900 600 Balance 466 138 180 200 Meds/Results Medications: Active Medications Generic Name Dose Route Start Last Admin Trade Name Freq PRN Reason Stop Dose Admin Hydrocodone Bitart/Acetaminophen 1 tab 10/17/24 12:20 10/17/24 12:40 Hydrocodone/Acetaminophen (*Crx) 10-325 Mg Tablet PO 1 tab Q6H PRN Administration Pain Rated 7-10 Buspirone HCl 15 mg 10/15/24 17:00 10/20/24 08:55 Buspirone Hcl 5 Mg Tablet PO 15 mg TID MAYO Administration Dicyclomine HCl 20 mg 10/15/24 15:07 Dicyclomine Hcl 10 Mg Capsule PO TID PRN helps stomach Enoxaparin Sodium 40 mg 10/17/24 09:00 10/19/24 08:38 Enoxaparin 40 Mg/0.4 Ml Syringe SUB-Q 40 mg DAILY MAYO Administration Fentanyl Citrate 25 mcg 10/15/24 12:12 10/15/24 15:43 Fentanyl Citrate Inj (*Crx) 100 Mcg/2 Ml Vial IV PUSH 25 mcg Q2M PRN Administration Pain Fentanyl Citrate 25 mcg 10/20/24 08:24 Fentanyl Citrate Inj (*Crx) 100 Mcg/2 Ml Vial IV PUSH Q2M PRN Pain Hydromorphone HCl 1 mg 10/15/24 11:12 10/20/24 08:54 Hydromorphone Hcl Inj (*Crx) 1 Mg/Ml Syr IV PUSH 1 mg Q2HR PRN Administration Pain Rated 7-10 Lactated Ringer's 1,000 mls @ 30 mls/hr 10/20/24 08:25 Lr - Lactated Ringers Iv IV CONT .Q24H MAYO Lactated Ringer's 1,000 mls @ 30 mls/hr 10/20/24 08:25 Lr - Lactated Ringers Iv IV CONT .Q24H MAYO Ceftriaxone Sodium 2 gm in 100 mls @ 200 mls/hr 10/20/24 21:00 Rocephin 2 Gm/Ns 100 Ml IVPB Q24H MAYO Ketorolac Tromethamine 30 mg 10/17/24 14:47 10/17/24 15:26 Ketorolac 30 Mg/Ml Vial (*Bkc) IM 30 mg Q6H PRN Administration Pain Rated 4-6 Ondansetron HCl 4 mg 10/15/24 12:12 Ondansetron Inj 4 Mg/2 Ml Vial IV PUSH ONCE PRN Nausea Ondansetron HCl 4 mg 10/20/24 08:24 Ondansetron Inj 4 Mg/2 Ml Vial IV PUSH ONCE PRN Nausea Oxybutynin Chloride 2.5 mg 10/17/24 19:34 10/17/24 22:38 Oxybutynin Chloride 2.5 Mg Tab PO 2.5 mg DAILY PRN Administration stent discomfort Oxycodone HCl 5 mg 10/15/24 12:12 Oxycodone Hcl (*Crx) 5 Mg Tab Ir PO ONCE PRN Pain Phenazopyridine HCl 100 mg 10/17/24 19:32 Phenazopyridine Hcl 100 Mg Tablet PO TID PRN Dysuria Polyethylene Glycol 17 gm 10/19/24 09:00 10/19/24 08:37 Polyethylene Glycol 3350 17 Gm Powd.Pack PO 17 gm QAM MAYO Administration Tamsulosin HCl 0.4 mg 10/17/24 21:00 10/19/24 21:26 Tamsulosin Hcl 0.4 Mg Capsule PO 0.4 mg HS MAYO Administration Trazodone HCl 50 mg 10/15/24 21:00 10/19/24 23:55 Trazodone Hcl 50 Mg Tablet PO 50 mg HS MAYO Administration Radiology Results: ITS Impressions Abdomen X-Ray 10/15/24 08:59 IMPRESSION: Hydronephrotic changes in the right kidney and ureter with dilated ureter above the lumbosacral area. Definite stones is not seen in the area. Retrograde Pyelogram 10/15/24 16:09 IMPRESSION: 1. Right internal ureteral stent placement. Please refer to real-time procedural findings for details. Abdomen/Pelvis CT 10/17/24 17:49 IMPRESSION: 1. Bilateral kidney stones with the right double-J stent. 2. Slightly prominent ovaries. Clinical correlation and follow-up advised. 3. Constipation. Labs Labs: Laboratory Results - last 24 hr 10/20/24 06:46 WBC 24.0 H RBC 4.54 Hgb 14.5 Hct 43.8 MCV 96.5 MCH 31.9 MCHC 33.1 RDW 13.7 Plt Count 287 MPV 9.5 Immature Gran % (Auto) 0.5 Neut % (Auto) 79.5 H Lymph % (Auto) 10.9 L [place] % (Auto) 6.0 Eos % (Auto) 2.7 Baso % (Auto) 0.4 Lymph # (Auto) 2.62 [place] # (Auto) 1.4 H Eos # (Auto) 0.7 H Baso # (Auto) 0.1 Abs Immat Gran (auto) 0.11 H Absolute Neuts (auto) 19.1 H Absolute Nucleated RBC 0.000 Nucleated RBC % 0.0 Sodium 134 L Potassium 4.2 Chloride 104 Carbon Dioxide 23 Anion Gap 7 BUN 9 Creatinine 0.50 L Estim Creat Clear Calc 115 Estimated GFR > 60 Glucose 111 H Calcium 9.2 Magnesium 1.9 Total Bilirubin 0.5 AST 38 H ALT 102 H Alkaline Phosphatase 81 Total Protein 7.0 Albumin 4.1
--- NOTE | 2024-10-20 11:38 | PC.NURSE ---
To preop via wheelchair.
--- NOTE | 2024-10-20 11:53 | P.PNAN_ITS ---
Anes - Initial Pre Proc Eval Procedure: Operation Date: 10/15/24 13:30 Proposed Procedures p Cystoscopy, Right Stent Placement - Eren Bennett MD Operation Date: 10/20/24 13:30 Proposed Procedures p Cystoscopy, Possible Right Retrograde Pyelogram, Possible Right Ureteroscopy, Proceed as Indicated(Right) - Royal Smith MD Date/Time: 10/20/24 11:53 Surgeon: Ashley Hernandez MD Pre Op Diagnosis: Infected Stone Patient Data Age: 44 Gender: F Height: 1.57 m Weight: 77.9 kg Last Vital Signs Temp 36.7 C 10/20/24 05:00 Pulse 79 10/20/24 05:00 Resp 16 10/20/24 05:00 BP 102/72 10/20/24 05:00 Pulse Ox 95 10/20/24 05:00 O2 Del Method Room Air 10/20/24 08:55 O2 Flow Rate 8 10/15/24 14:45 Allergies Allergy/AdvReac Type Severity Reaction Status Date / Time No Known Allergies Allergy Verified 10/15/24 11:56 Home Medications Medication Instructions Recorded Confirmed Type dicyclomine 20 mg tablet 20 mg PO TID PRN helps stomach 02/14/24 10/15/24 History eluxadoline 100 mg tablet (Viberzi) 100 mg PO BID 02/14/24 10/15/24 History fluticasone 250 mcg-salmeterol 50 1 ea inhalation BID 02/14/24 10/15/24 History mcg/dose blistr powdr for inhalation lisinopril 10 mg tablet 10 mg PO DAILY 02/14/24 10/15/24 History metformin 500 mg tablet,extended 500 mg PO BID 02/14/24 10/15/24 History release 24 hr buspirone 15 mg tablet 15 mg PO TID 09/26/24 10/15/24 History hydrocodone 10 mg-acetaminophen 1 tablet PO Q6H PRN Pain #20 tabs 09/28/24 10/15/24 Rx 325 mg tablet tamsulosin 0.4 mg capsule (Flomax) 0.4 mg PO DAILY #10 caps 10/02/24 10/15/24 Rx Laboratory Tests 10/20/24 06:46 WBC 24.0 H K/mm3 (4.5-10.0) RBC 4.54 M/mm3 (4.2-5.4) Hgb 14.5 g/dL (12.0-15.0) Hct 43.8 % (37.0-47.0) MCV 96.5 fl (80-100) MCH 31.9 pg (26-34) MCHC 33.1 g/dl (32-36) RDW 13.7 % (11.5-14.5) Plt Count 287 k/mm3 (150-375) MPV 9.5 fl (7.4-10.4) Immature Gran % (Auto) 0.5 % (0-0.5) Neut % (Auto) 79.5 H % (45.5-73.1) Lymph % (Auto) 10.9 L % (18.3-44.2) [place] % (Auto) 6.0 % (2.6-8.5) Eos % (Auto) 2.7 % (0-4.4) Baso % (Auto) 0.4 % (0.2-1.2) Lymph # (Auto) 2.62 K/mm3 (0.9-3.2) [place] # (Auto) 1.4 H K/mm3 (0.1-0.6) Eos # (Auto) 0.7 H K/mm3 (0-0.3) Baso # (Auto) 0.1 K/mm3 (0.0-0.1) Abs Immat Gran (auto) 0.11 H K/mm3 (0.00-0.031) Absolute Neuts (auto) 19.1 H K/mm3 (1.3-6.7) Absolute Nucleated RBC 0.000 K/mm3 (0.0-0.012) Nucleated RBC % 0.0 % (0.0-0.2) Sodium 134 L mmol/L (137-145) Potassium 4.2 mmol/L (3.4-5.0) Chloride 104 mmol/L (98-107) Carbon Dioxide 23 mmol/L (22-30) Anion Gap 7 mmol/L (4-12) BUN 9 mg/dL (7-17) Creatinine 0.50 L mg/dL (0.7-1.0) Estim Creat Clear Calc 115 ml/min Estimated GFR > 60 (59 - ) Glucose 111 H mg/dL (65-110) Calcium 9.2 mg/dL (8.4-10.2) Magnesium 1.9 mg/dL (1.6-2.3) Total Bilirubin 0.5 mg/dL (0.2-1.3) AST 38 H U/L (14-36) ALT 102 H U/L (6-35) Alkaline Phosphatase 81 U/L (38-126) Total Protein 7.0 g/dL (6.3-8.2) Albumin 4.1 g/dL (3.5-5.1) Patient hx anesthesia problems: none Family hx anesthesia problems: none Results Review: All pre-operative results and documents have been reviewed as part of the pre- operative evaluation. [facility] Past Medical History Medical History Asthma Chronic pain r/t sciatica and L4/L5/L6 protruding Hyperlipidemia Hypertension Irritable bowel syndrome with diarrhea Lactic acid acidosis Polycystic ovarian syndrome Right ureteral stone Surgical History Surgical History History of appendectomy History of cervical spinal surgery (03/08/23) anterior cervical discectomy and fusion History of cholecystectomy Family History Family History Father Hypertension Patient's father is in good health Cerebrovascular accident Family history of heart disease in male family member before age 55 Mother Patient's mother is in good health Family history of diabetes mellitus in first degree relative Sibling Family history of diabetes mellitus in first degree relative Social History Social History Social History: Surrogate medical decision maker: Chinmay Muñoz, spouse ([phone]). Code status: Full code. Smoking packs per day: 1 Smoking cigarettes per day: 20.0 Years smoked: 30 Smoking pack-years: 30.00 Smoking status: Current every day smoker Tobacco type: cigarettes Second hand tobacco smoke exposure: Yes Alcohol intake: never Alcohol use details: rarely drinks, a couple time a month Substance use: current Substance use type: marijuana Last use: Marijuana 10/14/24 Do You Feel Safe in your Home?: Yes Lack of Transportation: No Lack of Food: Never True Current Housing: I Have Housing Concerned About Future Housing: No Difficulty Paying Gas/Electric Bills: No Difficulty Paying for Meds: No Currently Unemployed: No Education: Grade School Difficulty w/ Childcare or Family Care: No Living arrangements: with family Additional living arrangements comments: Lives with father and . 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 Spiritual care concerns: No Agree to blood products: Yes Anes - Eval Final PreProcedure Day of Procedure 10/20/24 11:53 Patient weight: obese Heart: regular rate and rhythm Lungs: decreased breath sounds Airway: Mallampati scale class III Neurological: alert and oriented Last oral intake: >/= 8 hours ASA classification: III Emergent: no Anesthetic plan: proceed Anesthesia type and monitoring: general LMA and standard monitoring Results Review: All pre-operative results and documents have been reviewed as part of the pre- operative evaluation. Informed Consent: The patient's anesthetic plan and its attendant risks and benefits were discussed with the patient/family/POA. Questions were solicited and answers provided to the satisfaction of the patient/family/POA.
[2024-10-20] MEDS: LACTATED RINGERS 1,000 ML 30 ML IV CONT (11:56)
[2024-10-20] MEDS: LIDOCAINE HCL 2% GEL UROJET 10 ML PKG MUCOUS MEM (12:22)
[2024-10-20] MEDS: fentaNYL CITRATE INJ (*CRX) 100 MCG/2 ML VIAL 25 MCG IV PUSH ×2 (12:55→13:05)
--- NOTE | 2024-10-20 12:57 | W.PM.PROC2 ---
Procedure Note - Detailed Date of Procedure 10/20/24 Pre-op Diagnosis Right ureteral stone Post-op Diagnosis Same Procedure Performed Cystoscopy, right retrograde pyelogram, right ureteroscopy, stone extraction, stent removal Surgeon Royal Smith MD Anesthesia General Indications This is a woman with a right ureteral stone. She had a stent placed. The stone has been pushed back into the kidney. It is in the lower pole. She has had difficulty tolerating her stent. Her urine culture is negative. I will extract her stone today. She understands risks of bleeding, infection, inability of the stone, damage to the urinary tract. She agrees to proceed Findings Right ureteral stone found in lower pole. Description of Procedure She was correctly identified. Informed consent obtained. From the operating room. She was given anesthesia. She is placed in dorsal lithotomy position. She was prepped and draped sterile fashion. Time-out performed. He was already on appropriate perioperative antibiotics. I performed cystoscopy. The bladder was examined. There is no significant bladder abnormalities of the stent. The stent was grasped brought out through the meatus. I placed a guidewire through the stent into the renal pelvis. I then performed flexible ureteroscopy. There were no stones seen in the ureter. I went into the kidney. I did retrograde pyelogram to outline renal anatomy. I then searched all calices. The upper pole was clear. The midpole was clear. A small stone was seen the lower pole calyx. It was difficult to access the stone as there was a severe bend on the ureteral scope. I was finally able to get a basket through the ureteral scope and basket out the stone. I then extracted the stone intact. There was no other stones in the ureter. There was minimal trauma to the ureter. I elected to not leave ureteral stent. The wire was removed. She was awakened transferred to PACU in stable condition Implants None Estimated Blood Loss 0 Urine Output 0 Drains No Packing No Pathology Yes (Stone) Complications No immediate complications Condition Stable Disposition PACU
--- NOTE | 2024-10-20 13:30 | PC.NURSE ---
Back from OR,sitting on side of bed.
[2024-10-20] MEDS: oxyBUTYnin CHLORIDE 2.5 MG TAB PO (14:14)
[2024-10-20] MEDS: HYDROcodone/acetaminophen (*CRX) 10-325 MG TABLET 1 TAB PO ×2 (14:16→20:38)
[2024-10-20] MEDS: metFORMIN HCL XR 500 MG TAB.SR.24H PO (17:07)
[2024-10-20] MEDS: TAMSULOSIN HCL 0.4 MG CAPSULE PO (20:37)
[2024-10-20] MEDS: PHENAZOPYRIDINE HCL 100 MG TABLET PO (20:38)
[2024-10-20] MEDS: cefTRIAXone 2 GM/NS 100 ML 2 GM/100 ML BAG IVPB (20:39)
[2024-10-20] MEDS: FLUTICASONE/SALMETEROL 115-21 MCG INHALER 1 PUFF 2 PUFF INHALATION (21:36)
[2024-10-20] MEDS: traZODone HCL 50 MG TABLET PO (22:01)
[2024-10-21 06:00] VITALS: BP 104/68; PULSE 85; RESP 18; TEMP 36.6; O2SAT 98
[2024-10-21] MEDS: HYDROmorphone HCL INJ (*CRX) 1 MG/ML SYR IV PUSH ×5 (06:45→20:48)
[2024-10-21 06:47] LABS: Basophils Absolute Auto 0.1 K/mm3 (0.0-0.1); Basophils Percent Auto 0.3 % (0.2-1.2); Eosinophils Absolute Auto 0.4 K/mm3 (0-0.3); Eosinophils Percent Auto 1.4 % (0-4.4); Hematocrit 45.4 % (37.0-47.0); Hemoglobin 15.2 g/dL (12.0-15.0); Immature Granulocyte Absolute 0.16 K/mm3 (0.00-0.031); Immature Granulocyte Percent A 0.7 % (0-0.5); Lymphocytes Absolute Auto 3.09 K/mm3 (0.9-3.2); Lymphocytes Percent Auto 12.6 % (18.3-44.2); Mean Corpuscular HGB Conc 33.5 g/dl (32-36); Mean Corpuscular Volume 95.6 fl (80-100); Mean Platelet Volume 9.2 fl (7.4-10.4); Monocytes Absolute Auto 1.3 K/mm3 (0.1-0.6); Monocytes Percent Auto 5.5 % (2.6-8.5); Neutrophils Absolute Auto 19.5 K/mm3 (1.3-6.7); Neutrophils Percent Auto 79.5 % (45.5-73.1); Platelet Count Result 323 k/mm3 (150-375); Red Blood Count 4.75 M/mm3 (4.2-5.4); Red Cell Distribution Width 13.5 % (11.5-14.5); White Blood Count 24.5 K/mm3 (4.5-10.0)
[2024-10-21 07:03] LABS: Alanine Aminotransferase 84 U/L (6-35); Albumin Level 4.3 g/dL (3.5-5.1); Alkaline Phosphatase 79 U/L (38-126); Anion Gap 4 mmol/L (4-12); Aspartate Amino Transferase 26 U/L (14-36); Bilirubin,Total 0.5 mg/dL (0.2-1.3); Blood Urea Nitrogen 8 mg/dL (7-17); Calcium 9.5 mg/dL (8.4-10.2); Carbon Dioxide 28 mmol/L (22-30); Chloride 104 mmol/L (98-107); Estimated CRCL calculation 85 ml/min; Estimated Glomerular Filt Rate > 60; Glucose 136 mg/dL (65-110); Magnesium 1.9 mg/dL (1.6-2.3); Potassium 4.5 mmol/L (3.4-5.0); Sodium 136 mmol/L (137-145)
[2024-10-21] MEDS: polyethylene glycoL 3350 17 GM POWD.PACK PO (09:15)
[2024-10-21] MEDS: ENOXAPARIN 40 MG/0.4 ML SYRINGE SUB-Q (09:19)
[2024-10-21] MEDS: lisinopriL 10 MG TABLET PO (09:19)
[2024-10-21] MEDS: metFORMIN HCL XR 500 MG TAB.SR.24H PO ×2 (09:19→16:56)
[2024-10-21] MEDS: busPIRone HCL 5 MG TABLET 15 MG PO ×3 (09:19→16:56)
[2024-10-21] MEDS: FLUTICASONE/SALMETEROL 115-21 MCG INHALER 1 PUFF 2 PUFF INHALATION ×2 (09:23→20:29)
[2024-10-21 13:55] VITALS: BP 97/61; PULSE 112; RESP 20; TEMP 36.5; O2SAT 98
[2024-10-21] MEDS: HYDROcodone/acetaminophen (*CRX) 10-325 MG TABLET 1 TAB PO (14:21)
[2024-10-21] MEDS: CEFEPIME 2 GM/NS 50 ML 2 GM/50 ML BAG IVPB ×2 (15:06→20:47)
--- NOTE | 2024-10-21 15:24 | WPDANESPN ---
Anes - Prog Note Post-Op Date/Time: 10/21/24 15:24 Cardiovascular status: normal Respiratory status: normal Airway patency: baseline Mental status: baseline Post-Op hydration status: normal Vital Signs: Last Vital Signs Temp 36.5 C 10/21/24 13:55 Pulse 112 H 10/21/24 13:55 Resp 20 10/21/24 13:55 BP 97/61 L 10/21/24 13:55 Pulse Ox 98 10/21/24 13:55 O2 Del Method Room Air 10/21/24 08:00 O2 Flow Rate 8 10/20/24 12:50 Pain Score (VAS): 0 I/O: Intake & Output 10/20/24 10/21/24 10/21/24 23:59 07:59 15:59 Intake Total 340 0 954 Output Total 800 Balance 340 -800 954 Laboratory Tests 10/21/24 06:34 10/21/24 06:34 10/21/24 10/21/24 06:34 14:47 WBC 24.5 H RBC 4.75 Hgb 15.2 H Hct 45.4 MCV 95.6 MCH 32.0 MCHC 33.5 RDW 13.5 Plt Count 323 MPV 9.2 Immature Gran % (Auto) 0.7 H Neut % (Auto) 79.5 H Lymph % (Auto) 12.6 L [place] % (Auto) 5.5 Eos % (Auto) 1.4 Baso % (Auto) 0.3 Lymph # (Auto) 3.09 [place] # (Auto) 1.3 H Eos # (Auto) 0.4 H Baso # (Auto) 0.1 Abs Immat Gran (auto) 0.16 H Absolute Neuts (auto) 19.5 H Absolute Nucleated RBC 0.000 Nucleated RBC % 0.0 Sodium 136 L Potassium 4.5 Chloride 104 Carbon Dioxide 28 Anion Gap 4 BUN 8 Creatinine 0.70 Estim Creat Clear Calc 85 Estimated GFR > 60 Glucose 136 H Calcium 9.5 Magnesium 1.9 Total Bilirubin 0.5 AST 26 ALT 84 H Alkaline Phosphatase 79 Total Protein 7.0 Albumin 4.3 Nasal MRSA (PCR) Pending Microbiology 10/15/24 08:31 Blood Blood Culture - Final 10/15/24 08:30 Blood Blood Culture - Final Post-procedural complaints: none Patient Feedback: Patient satisfied with anesthetic care.
[2024-10-21 16:19] LABS: MRSA (PCR) NOT DETECTED (NOT DETECTE)
--- NOTE | 2024-10-21 17:07 | P.PNIM_ITS ---
Progress Note: A&P Assessment and Plan (1) Right ureteral stone: Code(s): N20.1 - Calculus of ureter Status: Acute (2) UTI (urinary tract infection): Code(s): N39.0 - Urinary tract infection, site not specified Status: Acute (3) Hypertension: Code(s): I10 - Essential (primary) hypertension Status: Acute Plan Right ureteral stone with hydronephrosis Bilateral Kidney stones now s/p right ureteral stent repeat CT AP showed bilateral stones with right ureteral stents present For ureteroscopy for stone extraction today Urology following Possible UTI Worsening leukocytosis likley from ureteral stone as urine culture is negative Patient reported dysuria with suprapubic pain. UA showed positive leukocyte esterase and nitrates Urine culture negative, blood culture pending Continue Rocephin for now and monitor WBC monitor leukocytosis Constipation Continue Miralax CT AP showed constipation Hypertension Titrate medications with clinical course. Anxiety Continue medications. PCOS Hold metformin start discharge. IBD Monitor. DVT prophylaxis on Sq Lovenox Subjective Date/time seen: 10/21/24 17:07 Interval history: Patient antibiotic escalated from ceftriaxone to cefepime due to increase in WBC. Patient reports March 2024 her whole medical issues started with appendix and gallbladder removal and subsequent history of multiple kidney stones. She reports removing 11 mm kidney stone from her left kidney on March 2024. On August she reports she was again diagnosed with 14 mm kidney stone on her left kidney. Last week she had episodes of abdominal pain and diagnosed with a right nephrolithiasis for which she underwent cystoscopy, right retrograde pyelogram, right ureteroscopy, stone extraction, stent removal on 10/20/2024. Patient in does she is having severe left lower flank pain. Will discuss with Urology about this concern. Review of Systems Review of Systems: All other systems reviewed and negative except as noted in the history above. Exam Narrative: General: alert and comfortable Eyes: EOMI, PERRLA ENNT External ears normal, Neck is supple, no masses, Respiratory systems: Clear to auscultation Cardiovascular S1, S2, normal rhythm, no murmur, rub, or gallop; no thrill or palpable murmurs on palpation. Gastrointestinal: soft, non-tender, and non-distended abdomen with no masses; BS present Skin: no rash, lesions, ulcerations, subcutaneous nodules or induration Musculoskeletal: no abnormality and no tenderness, normal ROM Neurologic: Alert and oriented x3, non focal Mental Status Exam: normal affect Objective Data Vital Signs Vital Signs: Vital Signs - 24 hr 10/20/24 20:00 10/20/24 21:37 10/20/24 19:25 Temperature 98.2 F Pulse Rate 81 Respiratory Rate 18 18 Blood Pressure 105/65 Pulse Oximetry 100 Oxygen Delivery Room Air 10/21/24 06:00 10/21/24 08:00 10/21/24 13:55 Temperature 97.8 F 97.7 F Pulse Rate 85 112 H Respiratory Rate 18 20 Blood Pressure 104/68 97/61 L Pulse Oximetry 98 98 Oxygen Delivery Room Air Intake/Output Intake/Output: Intake & Output 10/18/24 10/19/24 10/20/24 10/21/24 23:59 23:59 23:59 23:59 Intake Total 1038 993 955 6732 Output Total 900 600 0 800 Balance 138 180 930 634 Meds/Results Medications: Active Medications Generic Name Dose Route Start Last Admin Trade Name Freq PRN Reason Stop Dose Admin Hydrocodone Bitart/Acetaminophen 1 tab 10/17/24 12:20 10/21/24 14:21 Hydrocodone/Acetaminophen (*Crx) 10-325 Mg Tablet PO 1 tab Q6H PRN Administration Pain Rated 7-10 Hydrocodone Bitart/Acetaminophen 1 tab 10/20/24 13:23 Hydrocodone/Acetaminophen (*Crx) 10-325 Mg Tablet PO Q6H PRN Pain 4-6 Buspirone HCl 15 mg 10/15/24 17:00 10/21/24 16:56 Buspirone Hcl 5 Mg Tablet PO 15 mg TID MAYO Administration Dicyclomine HCl 20 mg 10/15/24 15:07 Dicyclomine Hcl 10 Mg Capsule PO TID PRN helps stomach Enoxaparin Sodium 40 mg 10/17/24 09:00 10/21/24 09:19 Enoxaparin 40 Mg/0.4 Ml Syringe SUB-Q 40 mg DAILY MAYO Administration Hydromorphone HCl 1 mg 10/15/24 11:12 10/21/24 16:56 Hydromorphone Hcl Inj (*Crx) 1 Mg/Ml Syr IV PUSH 1 mg Q2HR PRN Administration Pain Rated 7-10 Cefepime HCl 2 gm in 50 mls @ 100 mls/hr 10/21/24 14:30 10/21/24 15:06 Maxipime 2 Gm/Ns 50 Ml IVPB 100 mls/hr Q8HR MAYO Administration Ketorolac Tromethamine 30 mg 10/17/24 14:47 10/17/24 15:26 Ketorolac 30 Mg/Ml Vial (*Bkc) IM 30 mg Q6H PRN Administration Pain Rated 4-6 Lisinopril 10 mg 10/21/24 09:00 10/21/24 09:19 Lisinopril 10 Mg Tablet PO 10 mg DAILY MAYO Administration Metformin HCl 500 mg 10/20/24 17:00 10/21/24 16:56 Metformin Hcl Xr 500 Mg Tab.Sr.24h PO 500 mg BIDWM MAYO Administration Miscellaneous Information 0 each 10/21/24 00:01 10/21/24 00:58 Viberzi Is Non-Formulary. Use Pt Own Supply? XX 11/20/24 00:00 Not Given CLARIFY MAYO Non-Formulary Medication 100 mg 10/20/24 17:00 Eluxadoline [Viberzi] PO 11/19/24 16:59 BID MAYO Oxybutynin Chloride 2.5 mg 10/17/24 19:34 10/20/24 14:14 Oxybutynin Chloride 2.5 Mg Tab PO 2.5 mg DAILY PRN Administration stent discomfort Phenazopyridine HCl 100 mg 10/17/24 19:32 10/20/24 20:38 Phenazopyridine Hcl 100 Mg Tablet PO 100 mg TID PRN Administration Dysuria Polyethylene Glycol 17 gm 10/19/24 09:00 10/21/24 09:15 Polyethylene Glycol 3350 17 Gm Powd.Pack PO 17 gm QAM MAYO Administration Fluticasone/Salmeterol 2 puff 10/20/24 20:00 10/21/24 09:23 Fluticasone/Salmeterol 115-21 Mcg Inhaler 1 Puff INHALATION 2 puff Q12HRT MAYO Administration Tamsulosin HCl 0.4 mg 10/17/24 21:00 10/20/24 20:37 Tamsulosin Hcl 0.4 Mg Capsule PO 0.4 mg HS MAYO Administration Trazodone HCl 50 mg 10/15/24 21:00 10/20/24 22:01 Trazodone Hcl 50 Mg Tablet PO 50 mg HS MAYO Administration Radiology Results: ITS Impressions Abdomen X-Ray 10/15/24 08:59 IMPRESSION: Hydronephrotic changes in the right kidney and ureter with dilated ureter above the lumbosacral area. Definite stones is not seen in the area. Abdomen/Pelvis CT 10/17/24 17:49 IMPRESSION: 1. Bilateral kidney stones with the right double-J stent. 2. Slightly prominent ovaries. Clinical correlation and follow-up advised. 3. Constipation. Retrograde Pyelogram 10/20/24 12:42 IMPRESSION: 1. Fluoroscopy utilized during reported right-sided ureteral stent removal. See procedure note for further detail. Labs Labs: Laboratory Results - last 24 hr 10/21/24 10/21/24 06:34 14:47 WBC 24.5 H RBC 4.75 Hgb 15.2 H Hct 45.4 MCV 95.6 MCH 32.0 MCHC 33.5 RDW 13.5 Plt Count 323 MPV 9.2 Immature Gran % (Auto) 0.7 H Neut % (Auto) 79.5 H Lymph % (Auto) 12.6 L [place] % (Auto) 5.5 Eos % (Auto) 1.4 Baso % (Auto) 0.3 Lymph # (Auto) 3.09 [place] # (Auto) 1.3 H Eos # (Auto) 0.4 H Baso # (Auto) 0.1 Abs Immat Gran (auto) 0.16 H Absolute Neuts (auto) 19.5 H Absolute Nucleated RBC 0.000 Nucleated RBC % 0.0 Sodium 136 L Potassium 4.5 Chloride 104 Carbon Dioxide 28 Anion Gap 4 BUN 8 Creatinine 0.70 Estim Creat Clear Calc 85 Estimated GFR > 60 Glucose 136 H Calcium 9.5 Magnesium 1.9 Total Bilirubin 0.5 AST 26 ALT 84 H Alkaline Phosphatase 79 Total Protein 7.0 Albumin 4.3 Nasal MRSA (PCR) Not detected Hospitalist MIPS Advance Care Plan I have confirmed that the patient's Advanced Care Plan is present, code status is documented, or surrogate decision maker is listed in patient medical record.: Yes Medication Reconciliation I have utilized all available resources to obtain, update and review the patients current medications (includes all prescriptions, OTC, herbals, cannabis, and nutritional supplements).: Yes
[2024-10-21] MEDS: TAMSULOSIN HCL 0.4 MG CAPSULE PO (20:47)
[2024-10-21] MEDS: traZODone HCL 50 MG TABLET PO (20:59)
[2024-10-21 21:23] VITALS: BP 104/65; PULSE 109; RESP 20; TEMP 36.2; O2SAT 100
[2024-10-22] VITALS (11 sets, daily range): BP systolic 100–120; BP diastolic 54–68; PULSE 88–120; RESP 13–18; TEMP 36.6–39.6; O2SAT 94–100
[2024-10-22] MEDS: HYDROmorphone HCL INJ (*CRX) 1 MG/ML SYR IV PUSH ×6 (03:30→20:46)
[2024-10-22] MEDS: ACETAMINOPHEN 325 MG TABLET 650 MG PO ×3 (03:40→22:44)
[2024-10-22] MEDS: CEFEPIME 2 GM/NS 50 ML 2 GM/50 ML BAG IVPB ×2 (05:30→13:02)
[2024-10-22 07:17] LABS: Hematocrit 41.9 % (37.0-47.0); Mean Corpuscular HGB Conc 33.4 g/dl (32-36); Mean Corpuscular Hemoglobin 31.9 pg (26-34); Mean Corpuscular Volume 95.4 fl (80-100); Mean Platelet Volume 9.7 fl (7.4-10.4); Platelet Count Result 296 k/mm3 (150-375); Red Blood Count 4.39 M/mm3 (4.2-5.4); Red Cell Distribution Width 13.8 % (11.5-14.5); White Blood Count 40.7 K/mm3 (4.5-10.0)
[2024-10-22 07:25] LABS: Alanine Aminotransferase 65 U/L (6-35); Albumin Level 3.9 g/dL (3.5-5.1); Alkaline Phosphatase 80 U/L (38-126); Anion Gap 8 mmol/L (4-12); Aspartate Amino Transferase 41 U/L (14-36); Bilirubin,Total 0.7 mg/dL (0.2-1.3); Blood Urea Nitrogen 11 mg/dL (7-17); Carbon Dioxide 24 mmol/L (22-30); Chloride 101 mmol/L (98-107); Estimated CRCL calculation 85 ml/min; Estimated Glomerular Filt Rate > 60; Glucose 181 mg/dL (65-110); Potassium 3.7 mmol/L (3.4-5.0); Sodium 133 mmol/L (137-145)
[2024-10-22] MEDS: FLUTICASONE/SALMETEROL 115-21 MCG INHALER 1 PUFF 2 PUFF INHALATION ×2 (08:12→21:24)
[2024-10-22] MEDS: busPIRone HCL 5 MG TABLET 15 MG PO ×3 (09:40→16:23)
[2024-10-22] MEDS: metFORMIN HCL XR 500 MG TAB.SR.24H PO ×2 (09:40→16:23)
[2024-10-22] MEDS: lisinopriL 10 MG TABLET PO (09:40)
[2024-10-22] MEDS: DOXYCYCLINE 100 MG/NS 100 ML 100 MG/100 ML BAG IVPB ×2 (09:42→21:37)
[2024-10-22] MEDS: ENOXAPARIN 40 MG/0.4 ML SYRINGE SUB-Q (09:43)
--- NOTE | 2024-10-22 12:02 | PM.IMPN ---
Progress Note: A&P Assessment and Plan (1) Right ureteral stone: Code(s): N20.1 - Calculus of ureter Status: Acute (2) UTI (urinary tract infection): Code(s): N39.0 - Urinary tract infection, site not specified Status: Acute (3) Hypertension: Code(s): I10 - Essential (primary) hypertension Status: Acute Plan Patient WBC has been increased from 24.5240.7 in spite of escalating the antibiotic yesterday from ceftriaxone to cefepime. Patient also febrile. Yesterday we obtained blood culture. Today ordered abdomen/pelvis CT, urinalysis and urine culture. Added doxycycline. In according to the blood culture culture escalated the antibiotic from cefepime to meropenem. Even though nasal MRSA was negative added vancomycin to cover Enterococcus. Urology evaluated the patient and reports today CT shows 5 nonobstructing stones in the left kidney up to 12mm and a 2mm nonobstructing stone in the right kidney. No bladder abnormality or hydronephrosis noted. Urology planning outpatient management and signed off the case. Right ureteral stone with hydronephrosis Bilateral Kidney stones now s/p cystoscopy, right retrograde pyelogram, right ureteroscopy, stone extraction, stent removal on 10/20/202410/22: repeat CT 5 nonobstructing stones in the left kidney up to 12mm and a 2mm nonobstructing stone in the right kidney. No bladder abnormality or hydronephrosis noted. Urology signed of Possible UTI Worsening leukocytosis kiki from ureteral stone Patient reported dysuria with suprapubic pain. UA showed positive leukocyte esterase and nitrates Urine culture negative, blood culture shows Gram-positive cocci in chains Status post cefepime Ordered meropenem and doxycycline Repeated blood culture, urinalysis, urine culture monitor leukocytosis Constipation Continue Miralax CT AP showed constipation Hypertension Titrate medications with clinical course. Anxiety Continue medications. PCOS Hold metformin start discharge. IBD Monitor. DVT prophylaxis on Sq Lovenox Subjective Date/time seen: 10/22/24 12:02 Interval history: Patient WBC has been increased from 24.5240.7 in spite of escalating the antibiotic yesterday from ceftriaxone to cefepime. Patient also febrile. Yesterday we obtained blood culture. Today ordered abdomen/pelvis CT, urinalysis and urine culture. Added doxycycline. In according to the blood culture culture PA escalated the antibiotic from cefepime to meropenem. Even though nasal MRSA was negative added vancomycin to cover Enterococcus. Urology evaluated the patient and reports today CT shows 5 nonobstructing stones in the left kidney up to 12mm and a 2mm nonobstructing stone in the right kidney. No bladder abnormality or hydronephrosis noted. Urology planning outpatient management and signed off the case Review of Systems Review of Systems: All other systems reviewed and negative except as noted in the history above. Exam Narrative: General: alert and comfortable Eyes: EOMI, PERRLA ENNT External ears normal, Neck is supple, no masses, Respiratory systems: Clear to auscultation Cardiovascular S1, S2, normal rhythm, no murmur, rub, or gallop; no thrill or palpable murmurs on palpation. Gastrointestinal: soft, non-tender, and non-distended abdomen with no masses; BS present Skin: no rash, lesions, ulcerations, subcutaneous nodules or induration Musculoskeletal: no abnormality and no tenderness, normal ROM Neurologic: Alert and oriented x3, non focal Mental Status Exam: normal affect Objective Data Vital Signs Vital Signs: Vital Signs - 24 hr 10/21/24 13:55 10/21/24 20:00 10/21/24 21:23 Temperature 97.7 F 97.2 F L Pulse Rate 112 H 109 H Respiratory Rate 20 20 Blood Pressure 97/61 L 104/65 Pulse Oximetry 98 100 Oxygen Delivery Room Air 10/22/24 03:40 10/22/24 05:58 10/22/24 08:15 Temperature 103.2 F H 99.1 F Pulse Rate 120 H Respiratory Rate 13 Blood Pressure 113/68 Pulse Oximetry 97 94 Oxygen Delivery Room Air 10/22/24 09:41 10/22/24 08:00 Temperature 98.1 F Pulse Rate Respiratory Rate Blood Pressure Pulse Oximetry Oxygen Delivery Room Air Intake/Output Intake/Output: Intake & Output 10/19/24 10/20/24 10/21/24 10/22/24 23:59 23:59 23:59 23:59 Intake Total 404 564 2765 1400 Output Total 600 0 800 Balance 180 060 356 0189 Meds/Results Medications: Active Medications Generic Name Dose Route Start Last Admin Trade Name Freq PRN Reason Stop Dose Admin Acetaminophen 650 mg 10/22/24 03:37 10/22/24 09:41 Acetaminophen 325 Mg Tablet PO 650 mg Q6H PRN Administration Mild Pain (1-3) or Fever Hydrocodone Bitart/Acetaminophen 1 tab 10/17/24 12:20 10/21/24 14:21 Hydrocodone/Acetaminophen (*Crx) 10-325 Mg Tablet PO 1 tab Q6H PRN Administration Pain Rated 7-10 Hydrocodone Bitart/Acetaminophen 1 tab 10/20/24 13:23 Hydrocodone/Acetaminophen (*Crx) 10-325 Mg Tablet PO Q6H PRN Pain 4-6 Buspirone HCl 15 mg 10/15/24 17:00 10/22/24 09:40 Buspirone Hcl 5 Mg Tablet PO 15 mg TID MAYO Administration Dicyclomine HCl 20 mg 10/15/24 15:07 Dicyclomine Hcl 10 Mg Capsule PO TID PRN helps stomach Enoxaparin Sodium 40 mg 10/17/24 09:00 10/22/24 09:43 Enoxaparin 40 Mg/0.4 Ml Syringe SUB-Q 40 mg DAILY MAYO Administration Hydromorphone HCl 1 mg 10/15/24 11:12 10/22/24 09:42 Hydromorphone Hcl Inj (*Crx) 1 Mg/Ml Syr IV PUSH 1 mg Q2HR PRN Administration Pain Rated 7-10 Cefepime HCl 2 gm in 50 mls @ 100 mls/hr 10/21/24 14:30 10/22/24 06:00 Maxipime 2 Gm/Ns 50 Ml IVPB Infused Q8HR MAYO Infusion Doxycycline Hyclate 100 mg in 100 mls @ 100 mls/hr 10/22/24 09:00 10/22/24 09:42 Vibramycin 100 Mg/Ns 100 Ml IVPB 100 mls/hr Q12H MAYO Administration Ketorolac Tromethamine 30 mg 10/17/24 14:47 10/17/24 15:26 Ketorolac 30 Mg/Ml Vial (*Bkc) IM 30 mg Q6H PRN Administration Pain Rated 4-6 Lisinopril 10 mg 10/21/24 09:00 10/22/24 09:40 Lisinopril 10 Mg Tablet PO 10 mg DAILY MAYO Administration Metformin HCl 500 mg 10/20/24 17:00 10/22/24 09:40 Metformin Hcl Xr 500 Mg Tab.Sr.24h PO 500 mg BIDWM MAYO Administration Miscellaneous Information 0 each 10/21/24 00:01 10/22/24 06:03 Viberzi Is Non-Formulary. Use Pt Own Supply? XX 11/20/24 00:00 Not Given CLARIFY MAYO Non-Formulary Medication 100 mg 10/20/24 17:00 Eluxadoline [Viberzi] PO 11/19/24 16:59 BID MAYO Oxybutynin Chloride 2.5 mg 10/17/24 19:34 10/20/24 14:14 Oxybutynin Chloride 2.5 Mg Tab PO 2.5 mg DAILY PRN Administration stent discomfort Phenazopyridine HCl 100 mg 10/17/24 19:32 10/20/24 20:38 Phenazopyridine Hcl 100 Mg Tablet PO 100 mg TID PRN Administration Dysuria Polyethylene Glycol 17 gm 10/19/24 09:00 10/22/24 09:43 Polyethylene Glycol 3350 17 Gm Powd.Pack PO Not Given QAM MAYO Fluticasone/Salmeterol 2 puff 10/20/24 20:00 10/22/24 08:12 Fluticasone/Salmeterol 115-21 Mcg Inhaler 1 Puff INHALATION 2 puff Q12HRT MAYO Administration Tamsulosin HCl 0.4 mg 10/17/24 21:00 10/21/24 20:47 Tamsulosin Hcl 0.4 Mg Capsule PO 0.4 mg HS MAYO Administration Trazodone HCl 50 mg 10/15/24 21:00 10/21/24 20:59 Trazodone Hcl 50 Mg Tablet PO 50 mg HS MAYO Administration Radiology Results: ITS Impressions Abdomen X-Ray 10/15/24 08:59 IMPRESSION: Hydronephrotic changes in the right kidney and ureter with dilated ureter above the lumbosacral area. Definite stones is not seen in the area. Abdomen/Pelvis CT 10/17/24 17:49 IMPRESSION: 1. Bilateral kidney stones with the right double-J stent. 2. Slightly prominent ovaries. Clinical correlation and follow-up advised. 3. Constipation. Retrograde Pyelogram 10/20/24 12:42 IMPRESSION: 1. Fluoroscopy utilized during reported right-sided ureteral stent removal. See procedure note for further detail. Labs Labs: Laboratory Results - last 24 hr 10/21/24 10/22/24 14:47 06:47 WBC 40.7 H RBC 4.39 Hgb 14.0 Hct 41.9 MCV 95.4 MCH 31.9 MCHC 33.4 RDW 13.8 Plt Count 296 MPV 9.7 Sodium 133 L Potassium 3.7 Chloride 101 Carbon Dioxide 24 Anion Gap 8 BUN 11 Creatinine 0.70 Estim Creat Clear Calc 85 Estimated GFR > 60 Glucose 181 H Calcium 9.0 Total Bilirubin 0.7 AST 41 H ALT 65 H Alkaline Phosphatase 80 Total Protein 7.0 Albumin 3.9 Nasal MRSA (PCR) Not detected Hospitalist MIPS Advance Care Plan I have confirmed that the patient's Advanced Care Plan is present, code status is documented, or surrogate decision maker is listed in patient medical record.: Yes Medication Reconciliation I have utilized all available resources to obtain, update and review the patients current medications (includes all prescriptions, OTC, herbals, cannabis, and nutritional supplements).: Yes
--- NOTE | 2024-10-22 13:10 | WPDUROPN2 ---
Progress Note: A&P Assessment and Plan (1) Right ureteral stone: Code(s): N20.1 - Calculus of ureter Status: Acute Assessment and Plan: s/p uncomplicated cystoscopy, right renal stone extraction, ureteral stent removal with Dr. Smith on 10/20/24. Febrile overnight, T-max 103.2. Worsening leukocytosis, WBC trend 13 - 24 - 40. Renal function stable, Cr 0.7. Patient c/o chronic left flank pain. CT AP today shows 5 nonobstructing stones in the left kidney up to 12mm and a 2mm nonobstructing stone in the right kidney. No bladder abnormality or hydronephrosis noted. 10/21/24 blood cultures NGTD on IV cefepime. 10/15/24 urine culture was negative. (2) Kidney stone: Code(s): N20.0 - Calculus of kidney Status: Acute Assessment and Plan: Large left lower pole Plan Plan for outpatient management of her lower pole contralateral kidney stones. Has appointment with Dr. Bennett next month with renal ultrasound prior. Patient is interested in stone treatment as soon as possible. On IV antibiotics, pending blood culture. Given normal renal function, negative urine culture, and nonobstructing stones -- leukocytosis and fever likely unrelated to acute process. Inpatient urology team signing off. Please call with questions. Subjective Subjective Date/Time Seen: 10/22/24 13:10 Post Op day: 2 Principal diagnosis: Renal stones, sepsis Interval history: s/p uncomplicated cystoscopy, right renal stone extraction, ureteral stent removal with Dr. Smith on 10/20/24. Febrile overnight, T-max 103.2. Worsening leukocytosis, WBC trend 13 - 24 - 40. No recent lactic acid. Renal function stable, Cr 0.7. Patient c/o chronic left flank pain. Denies nausea. CT AP today shows 5 nonobstructing stones in the left kidney up to 12mm and a 2mm nonobstructing stone in the right kidney. No bladder abnormality or hydronephrosis noted. 10/21/24 blood cultures NGTD on IV cefepime. 10/15/24 urine culture was negative. Exam Const: General: comfortable and no acute distress Resp: Effort & Inspection: normal respiratory effort : Other: Left flank tenderness Skin: General skin exam: normal color and no rashes or lesions noted Neuro: Speech: normal speech Extrem: General: normal to inspection Psych: Mental Status: mental status grossly normal Objective Data Vital Signs Vital Signs: Vital Signs - 24 hr 10/21/24 13:55 10/21/24 20:00 10/21/24 21:23 Temperature 97.7 F 97.2 F L Pulse Rate 112 H 109 H Respiratory Rate 20 20 Blood Pressure 97/61 L 104/65 Pulse Oximetry 98 100 Oxygen Delivery Room Air 10/22/24 03:40 10/22/24 05:58 10/22/24 08:15 Temperature 103.2 F H 99.1 F Pulse Rate 120 H Respiratory Rate 13 Blood Pressure 113/68 Pulse Oximetry 97 94 Oxygen Delivery Room Air 10/22/24 09:41 10/22/24 08:00 Temperature 98.1 F Pulse Rate Respiratory Rate Blood Pressure Pulse Oximetry Oxygen Delivery Room Air Intake/Output Intake/Output: Intake & Output 10/19/24 10/20/24 10/21/24 10/22/24 23:59 23:59 23:59 23:59 Intake Total 697 268 4651 1400 Output Total 600 0 800 Balance 180 828 700 8130 Meds/Results Medications: Active Medications Generic Name Dose Route Start Last Admin Trade Name Freq PRN Reason Stop Dose Admin Acetaminophen 650 mg 10/22/24 03:37 10/22/24 09:41 Acetaminophen 325 Mg Tablet PO 650 mg Q6H PRN Administration Mild Pain (1-3) or Fever Hydrocodone Bitart/Acetaminophen 1 tab 10/17/24 12:20 10/21/24 14:21 Hydrocodone/Acetaminophen (*Crx) 10-325 Mg Tablet PO 1 tab Q6H PRN Administration Pain Rated 7-10 Hydrocodone Bitart/Acetaminophen 1 tab 10/20/24 13:23 Hydrocodone/Acetaminophen (*Crx) 10-325 Mg Tablet PO Q6H PRN Pain 4-6 Buspirone HCl 15 mg 10/15/24 17:00 10/22/24 13:01 Buspirone Hcl 5 Mg Tablet PO 15 mg TID MAYO Administration Dicyclomine HCl 20 mg 10/15/24 15:07 Dicyclomine Hcl 10 Mg Capsule PO TID PRN helps stomach Enoxaparin Sodium 40 mg 10/17/24 09:00 10/22/24 09:43 Enoxaparin 40 Mg/0.4 Ml Syringe SUB-Q 40 mg DAILY MAYO Administration Hydromorphone HCl 1 mg 10/15/24 11:12 10/22/24 13:04 Hydromorphone Hcl Inj (*Crx) 1 Mg/Ml Syr IV PUSH 1 mg Q2HR PRN Administration Pain Rated 7-10 Cefepime HCl 2 gm in 50 mls @ 100 mls/hr 10/21/24 14:30 10/22/24 13:02 Maxipime 2 Gm/Ns 50 Ml IVPB 100 mls/hr Q8HR MAYO Administration Doxycycline Hyclate 100 mg in 100 mls @ 100 mls/hr 10/22/24 09:00 10/22/24 09:42 Vibramycin 100 Mg/Ns 100 Ml IVPB 100 mls/hr Q12H MAYO Administration Ketorolac Tromethamine 30 mg 10/17/24 14:47 10/17/24 15:26 Ketorolac 30 Mg/Ml Vial (*Bkc) IM 30 mg Q6H PRN Administration Pain Rated 4-6 Lisinopril 10 mg 10/21/24 09:00 10/22/24 09:40 Lisinopril 10 Mg Tablet PO 10 mg DAILY MAYO Administration Metformin HCl 500 mg 10/20/24 17:00 10/22/24 09:40 Metformin Hcl Xr 500 Mg Tab.Sr.24h PO 500 mg BIDWM MAYO Administration Miscellaneous Information 0 each 10/21/24 00:01 10/22/24 06:03 Viberzi Is Non-Formulary. Use Pt Own Supply? XX 11/20/24 00:00 Not Given CLARIFY MAYO Non-Formulary Medication 100 mg 10/20/24 17:00 Eluxadoline [Viberzi] PO 11/19/24 16:59 BID MAYO Oxybutynin Chloride 2.5 mg 10/17/24 19:34 10/20/24 14:14 Oxybutynin Chloride 2.5 Mg Tab PO 2.5 mg DAILY PRN Administration stent discomfort Phenazopyridine HCl 100 mg 10/17/24 19:32 10/20/24 20:38 Phenazopyridine Hcl 100 Mg Tablet PO 100 mg TID PRN Administration Dysuria Polyethylene Glycol 17 gm 10/19/24 09:00 10/22/24 09:43 Polyethylene Glycol 3350 17 Gm Powd.Pack PO Not Given QAM MAYO Fluticasone/Salmeterol 2 puff 10/20/24 20:00 10/22/24 08:12 Fluticasone/Salmeterol 115-21 Mcg Inhaler 1 Puff INHALATION 2 puff Q12HRT MAYO Administration Tamsulosin HCl 0.4 mg 10/17/24 21:00 10/21/24 20:47 Tamsulosin Hcl 0.4 Mg Capsule PO 0.4 mg HS MAYO Administration Trazodone HCl 50 mg 10/15/24 21:00 10/21/24 20:59 Trazodone Hcl 50 Mg Tablet PO 50 mg HS MAYO Administration Radiology Results: ITS Impressions Abdomen X-Ray 10/15/24 08:59 IMPRESSION: Hydronephrotic changes in the right kidney and ureter with dilated ureter above the lumbosacral area. Definite stones is not seen in the area. Abdomen/Pelvis CT 10/17/24 17:49 IMPRESSION: 1. Bilateral kidney stones with the right double-J stent. 2. Slightly prominent ovaries. Clinical correlation and follow-up advised. 3. Constipation. Retrograde Pyelogram 10/20/24 12:42 IMPRESSION: 1. Fluoroscopy utilized during reported right-sided ureteral stent removal. See procedure note for further detail. Chest/Abdomen/Pelvis CT 10/22/24 12:05 IMPRESSION: 1. Bilateral nonobstructing kidney stones. Labs Labs: Laboratory Results - last 24 hr 10/21/24 10/22/24 14:47 06:47 WBC 40.7 H RBC 4.39 Hgb 14.0 Hct 41.9 MCV 95.4 MCH 31.9 MCHC 33.4 RDW 13.8 Plt Count 296 MPV 9.7 Sodium 133 L Potassium 3.7 Chloride 101 Carbon Dioxide 24 Anion Gap 8 BUN 11 Creatinine 0.70 Estim Creat Clear Calc 85 Estimated GFR > 60 Glucose 181 H Calcium 9.0 Total Bilirubin 0.7 AST 41 H ALT 65 H Alkaline Phosphatase 80 Total Protein 7.0 Albumin 3.9 Nasal MRSA (PCR) Not detected
[2024-10-22 15:19] LABS: Add Urine Microscopic? YES; Appearance Urine Cloudy (Clear); Bacteria Urine Rare /hpf; Bilirubin Urine Negative (Negative); Blood Urine 2+ (Negative); Color Urine Yellow (Yellow); Glucose Urine UA Negative (Negative); Ketones Urine Negative (Negative); Leukocyte Esterase Ur 1+ LEU/UL (Negative); Need Manual Microscopic Reviewed; Nitrate Urine Negative (Negative); Non Pathogenic Casts 0-2; Protein Urine 1+ mg/dL (Negative); RBC Urine 21-50 /hpf (0-2); Specific Grav Ur 1.033 (1.001-1.035); Squamous Epithelial Cell Urine Many /hpf (Few); Urobilinogen Urine 0.2 mg/dL (<2.0); WBC Urine 21-50 /hpf (0-3)
[2024-10-22] MEDS: VANCOMYCIN 2,000 MG/NS 500 ML 2,000 MG/500 ML BAG 250 MG IVPB (15:29)
[2024-10-22] MEDS: HYDROcodone/acetaminophen (*CRX) 10-325 MG TABLET 1 TAB PO (15:57)
[2024-10-22] MEDS: MEROPENEM 1 GM/NS 100 ML 1 GM/100 ML BAG IVPB (20:46)
[2024-10-22] MEDS: TAMSULOSIN HCL 0.4 MG CAPSULE PO (21:38)
[2024-10-22] MEDS: traZODone HCL 50 MG TABLET PO (22:44)
[2024-10-23] VITALS (12 sets, daily range): BP systolic 105–114; BP diastolic 45–72; PULSE 88–106; RESP 18; TEMP 36.4–40.5; O2SAT 96–100
[2024-10-23] MEDS: HYDROmorphone HCL INJ (*CRX) 1 MG/ML SYR IV PUSH ×5 (00:36→20:19)
[2024-10-23] MEDS: VANCOMYCIN 1,500 MG/NS 500 ML 1,500 MG/500 ML BAG 250 MG IVPB ×2 (04:01→20:20)
[2024-10-23] MEDS: IBUPROFEN IV 800 MG/200 ML 800 MG/200 ML BAG 400 MG IVPB (05:50)
[2024-10-23] MEDS: ACETAMINOPHEN 325 MG TABLET 650 MG PO ×2 (05:52→12:41)
[2024-10-23 06:24] LABS: Influenza A QL RT-PCR Negative (Negative); Influenza B QL RT-PCR Negative (Negative); RSV RNA, RT-PCR Negative (Negative); SARS-CoV-2 RNA PCR Negative (Negative)
[2024-10-23 07:27] LABS: Hematocrit 37.5 % (37.0-47.0); Hemoglobin 12.3 g/dL (12.0-15.0); Mean Corpuscular HGB Conc 32.8 g/dl (32-36); Mean Corpuscular Hemoglobin 31.8 pg (26-34); Mean Corpuscular Volume 96.9 fl (80-100); Mean Platelet Volume 9.4 fl (7.4-10.4); Platelet Count Result 233 k/mm3 (150-375); Red Blood Count 3.87 M/mm3 (4.2-5.4); Red Cell Distribution Width 13.8 % (11.5-14.5); White Blood Count 26.3 K/mm3 (4.5-10.0)
[2024-10-23] MEDS: MEROPENEM 1 GM/NS 100 ML 1 GM/100 ML BAG IVPB ×3 (07:30→23:52)
[2024-10-23] MEDS: SODIUM CHLORIDE 0.9% IV 1,000 ML 100 ML IV CONT ×2 (07:30→20:19)
[2024-10-23] MEDS: FLUTICASONE/SALMETEROL 115-21 MCG INHALER 1 PUFF 2 PUFF INHALATION ×2 (08:04→20:23)
[2024-10-23 08:05] LABS: Alanine Aminotransferase 55 U/L (6-35); Albumin Level 3.6 g/dL (3.5-5.1); Alkaline Phosphatase 71 U/L (38-126); Anion Gap 7 mmol/L (4-12); Aspartate Amino Transferase 23 U/L (14-36); Bilirubin,Total 0.9 mg/dL (0.2-1.3); Blood Urea Nitrogen 11 mg/dL (7-17); Calcium 8.7 mg/dL (8.4-10.2); Carbon Dioxide 23 mmol/L (22-30); Chloride 102 mmol/L (98-107); Estimated CRCL calculation 85 ml/min; Estimated Glomerular Filt Rate > 60; Glucose 154 mg/dL (65-110); Potassium 4.1 mmol/L (3.4-5.0); Sodium 132 mmol/L (137-145)
[2024-10-23 08:12] LABS: Add Urine Microscopic? YES; Appearance Urine Cloudy (Clear); Bacteria Urine None Seen /hpf; Bilirubin Urine Negative (Negative); Blood Urine Negative (Negative); Color Urine Yellow (Yellow); Glucose Urine UA Negative (Negative); Ketones Urine Negative (Negative); Leukocyte Esterase Ur Trace LEU/UL (Negative); Need Manual Microscopic Reviewed; Nitrate Urine Negative (Negative); Non Pathogenic Casts 0-2; Protein Urine Negative (Negative); RBC Urine 0-2 /hpf (0-2); Specific Grav Ur 1.016 (1.001-1.035); Squamous Epithelial Cell Urine Few /hpf (Few); Urobilinogen Urine 0.2 mg/dL (<2.0); pH Urine 6.5 (5.0-9.0)
[2024-10-23] MEDS: HYDROcodone/acetaminophen (*CRX) 10-325 MG TABLET 1 TAB PO ×2 (08:58→17:22)
[2024-10-23] MEDS: ENOXAPARIN 40 MG/0.4 ML SYRINGE SUB-Q (08:58)
[2024-10-23] MEDS: metFORMIN HCL XR 500 MG TAB.SR.24H PO ×2 (08:58→17:22)
[2024-10-23] MEDS: lisinopriL 10 MG TABLET PO (08:59)
[2024-10-23] MEDS: busPIRone HCL 5 MG TABLET 15 MG PO ×3 (08:59→17:21)
[2024-10-23] MEDS: DOXYCYCLINE 100 MG/NS 100 ML 100 MG/100 ML BAG IVPB (09:05)
--- NOTE | 2024-10-23 13:09 | P.PNIM_ITS ---
Progress Note: A&P Assessment and Plan (1) Right ureteral stone: Code(s): N20.1 - Calculus of ureter Status: Acute (2) UTI (urinary tract infection): Code(s): N39.0 - Urinary tract infection, site not specified Status: Acute (3) Hypertension: Code(s): I10 - Essential (primary) hypertension Status: Acute Plan 10/23: WBC is increasing but also patient has spikes of fever (105). Continue meropenem, vancomycin and doxycycline. Pending blood culture and urine culture 10/22:Patient WBC has been increased from 24.5 to 40.7 in spite of escalating the antibiotic yesterday from ceftriaxone to cefepime. Patient also febrile. Yesterday we obtained blood culture. Today ordered abdomen/pelvis CT, urinalysis and urine culture. Added doxycycline. In according to the blood culture culture escalated the antibiotic from cefepime to meropenem. Even though nasal MRSA was negative added vancomycin to cover Enterococcus. Urology evaluated the patient and reports today CT shows 5 nonobstructing stones in the left kidney up to 12mm and a 2mm nonobstructing stone in the right kidney. No bladder abnormality or hydronephrosis noted. Urology planning outpatient management and signed off the case. Right ureteral stone with hydronephrosis Bilateral Kidney stones now s/p cystoscopy, right retrograde pyelogram, right ureteroscopy, stone extraction, stent removal on 10/20/202410/22: repeat CT 5 nonobstructing stones in the left kidney up to 12mm and a 2mm nonobstructing stone in the right kidney. No bladder abnormality or hydronephrosis noted. Urology signed of Possible UTI Worsening leukocytosis kiki from ureteral stone Patient reported dysuria with suprapubic pain. UA showed positive leukocyte esterase and nitrates Urine culture negative, blood culture shows Gram-positive cocci in chains Status post cefepime Ordered meropenem and doxycycline Repeated blood culture, urinalysis, urine culture monitor leukocytosis Constipation Continue Miralax CT AP showed constipation Hypertension Titrate medications with clinical course. Anxiety Continue medications. PCOS Hold metformin start discharge. IBD Monitor. DVT prophylaxis on Sq Lovenox Subjective Date/time seen: 10/23/24 13:09 Interval history: Patient WBCs improving although patient has spikes of fever (105). Pending b lood culture and urine culture. Review of Systems Review of Systems: All other systems reviewed and negative except as noted in the history above. Exam Narrative: General: alert and comfortable Eyes: EOMI, PERRLA ENNT External ears normal, Neck is supple, no masses, Respiratory systems: Clear to auscultation Cardiovascular S1, S2, normal rhythm, no murmur, rub, or gallop; no thrill or palpable murmurs on palpation. Gastrointestinal: soft, non-tender, and non-distended abdomen with no masses; BS present Skin: no rash, lesions, ulcerations, subcutaneous nodules or induration Musculoskeletal: no abnormality and no tenderness, normal ROM Neurologic: Alert and oriented x3, non focal Mental Status Exam: normal affect Objective Data Vital Signs Vital Signs: Vital Signs - 24 hr 10/22/24 14:00 10/22/24 21:27 10/22/24 21:31 Temperature 97.9 F Pulse Rate 88 106 H Respiratory Rate 18 Blood Pressure 120/54 L Pulse Oximetry 100 97 Oxygen Delivery Room Air 10/22/24 21:47 10/22/24 20:00 10/22/24 22:37 Temperature 97.8 F 101.5 F H Pulse Rate 102 H Respiratory Rate 18 Blood Pressure 100/58 L Pulse Oximetry 98 Oxygen Delivery Room Air 10/22/24 22:44 10/22/24 23:44 10/23/24 05:50 Temperature 101 F H 98.9 F 105 F H Pulse Rate Respiratory Rate Blood Pressure Pulse Oximetry Oxygen Delivery 10/23/24 05:52 10/23/24 06:00 10/23/24 06:44 Temperature 105 F H 100.5 F H 99.4 F Pulse Rate 106 H Respiratory Rate 18 Blood Pressure 114/72 Pulse Oximetry 100 Oxygen Delivery 10/23/24 06:50 10/23/24 07:36 10/23/24 08:06 Temperature 99.4 F 99.4 F Pulse Rate Respiratory Rate Blood Pressure Pulse Oximetry 99 Oxygen Delivery Room Air 10/23/24 08:00 10/23/24 12:41 Temperature 98.2 F Pulse Rate Respiratory Rate Blood Pressure Pulse Oximetry Oxygen Delivery Room Air Intake/Output Intake/Output: Intake & Output 10/20/24 10/21/24 10/22/24 10/23/24 23:59 23:59 23:59 23:59 Intake Total 930 1534 3068 1500 Output Total 0 800 Balance 275 387 5410 1500 Meds/Results Medications: Active Medications Generic Name Dose Route Start Last Admin Trade Name Freq PRN Reason Stop Dose Admin Acetaminophen 650 mg 10/22/24 03:37 10/23/24 12:41 Acetaminophen 325 Mg Tablet PO 650 mg Q6H PRN Administration Mild Pain (1-3) or Fever Hydrocodone Bitart/Acetaminophen 1 tab 10/17/24 12:20 10/23/24 08:58 Hydrocodone/Acetaminophen (*Crx) 10-325 Mg Tablet PO 1 tab Q6H PRN Administration Pain Rated 7-10 Hydrocodone Bitart/Acetaminophen 1 tab 10/20/24 13:23 Hydrocodone/Acetaminophen (*Crx) 10-325 Mg Tablet PO Q6H PRN Pain 4-6 Buspirone HCl 15 mg 10/15/24 17:00 10/23/24 12:40 Buspirone Hcl 5 Mg Tablet PO 15 mg TID MAYO Administration Dicyclomine HCl 20 mg 10/15/24 15:07 Dicyclomine Hcl 10 Mg Capsule PO TID PRN helps stomach Enoxaparin Sodium 40 mg 10/17/24 09:00 10/23/24 08:58 Enoxaparin 40 Mg/0.4 Ml Syringe SUB-Q 40 mg DAILY MAYO Administration Hydromorphone HCl 1 mg 10/15/24 11:12 10/23/24 10:16 Hydromorphone Hcl Inj (*Crx) 1 Mg/Ml Syr IV PUSH 1 mg Q2HR PRN Administration Pain Rated 7-10 Doxycycline Hyclate 100 mg in 100 mls @ 100 mls/hr 10/22/24 09:00 10/23/24 09:05 Vibramycin 100 Mg/Ns 100 Ml IVPB 100 mls/hr Q12H MAYO Administration Vancomycin HCl 1,500 mg in 500 mls @ 250 mls/hr 10/23/24 04:00 10/23/24 06:01 Vancomycin 1,500 Mg/Ns 500 Ml IVPB Infused Q12H MAYO Infusion Meropenem 1 gm in 100 mls @ 200 mls/hr 10/22/24 20:00 10/23/24 13:02 IVPB 200 mls/hr Q8HR MAYO Administration Sodium Chloride 1,000 mls @ 125 mls/hr 10/23/24 05:45 10/23/24 07:30 Normal Saline Iv IV CONT 100 mls/hr .Q8H MAYO Administration Lisinopril 10 mg 10/21/24 09:00 10/23/24 08:59 Lisinopril 10 Mg Tablet PO 10 mg DAILY MAYO Administration Metformin HCl 500 mg 10/20/24 17:00 10/23/24 08:58 Metformin Hcl Xr 500 Mg Tab.Sr.24h PO 500 mg BIDWM MAYO Administration Miscellaneous Information 0 each 10/21/24 00:01 10/23/24 03:19 Viberzi Is Non-Formulary. Use Pt Own Supply? XX 11/20/24 00:00 Not Given CLARIFY MAYO Non-Formulary Medication 100 mg 10/20/24 17:00 Eluxadoline [Viberzi] PO 11/19/24 16:59 BID MAYO Oxybutynin Chloride 2.5 mg 10/17/24 19:34 10/20/24 14:14 Oxybutynin Chloride 2.5 Mg Tab PO 2.5 mg DAILY PRN Administration stent discomfort Phenazopyridine HCl 100 mg 10/17/24 19:32 10/20/24 20:38 Phenazopyridine Hcl 100 Mg Tablet PO 100 mg TID PRN Administration Dysuria Polyethylene Glycol 17 gm 10/19/24 09:00 10/23/24 09:05 Polyethylene Glycol 3350 17 Gm Powd.Pack PO Not Given QAM MAYO Fluticasone/Salmeterol 2 puff 10/20/24 20:00 10/23/24 08:04 Fluticasone/Salmeterol 115-21 Mcg Inhaler 1 Puff INHALATION 2 puff Q12HRT MAYO Administration Tamsulosin HCl 0.4 mg 10/17/24 21:00 10/22/24 21:38 Tamsulosin Hcl 0.4 Mg Capsule PO 0.4 mg HS MAYO Administration Trazodone HCl 50 mg 10/15/24 21:00 10/22/24 22:44 Trazodone Hcl 50 Mg Tablet PO 50 mg HS MAYO Administration Radiology Results: ITS Impressions Abdomen X-Ray 10/15/24 08:59 IMPRESSION: Hydronephrotic changes in the right kidney and ureter with dilated ureter above the lumbosacral area. Definite stones is not seen in the area. Abdomen/Pelvis CT 10/17/24 17:49 IMPRESSION: 1. Bilateral kidney stones with the right double-J stent. 2. Slightly prominent ovaries. Clinical correlation and follow-up advised. 3. Constipation. Retrograde Pyelogram 10/20/24 12:42 IMPRESSION: 1. Fluoroscopy utilized during reported right-sided ureteral stent removal. See procedure note for further detail. Chest/Abdomen/Pelvis CT 10/22/24 12:05 IMPRESSION: 1. Bilateral nonobstructing kidney stones. Chest X-Ray 10/23/24 07:12 Impression: Clear lungs. Labs Labs: Laboratory Results - last 24 hr 10/22/24 10/23/24 10/23/24 14:49 05:41 06:42 WBC RBC Hgb Hct MCV MCH MCHC RDW Plt Count MPV Sodium Potassium Chloride Carbon Dioxide Anion Gap BUN Creatinine Estim Creat Clear Calc Estimated GFR Glucose Lactic Acid Calcium Total Bilirubin AST ALT Alkaline Phosphatase Total Protein Albumin Urine Color Yellow Yellow Urine Appearance Cloudy H Cloudy H Urine pH 6.0 6.5 Ur Specific [place] 1.033 1.016 Urine Protein 1+ H Negative Urine Glucose (UA) Negative Negative Urine Ketones Negative Negative Ur Blood (Man) 2+ H Negative Urine Nitrate Negative Negative Urine Bilirubin Negative Negative Urine Urobilinogen 0.2 0.2 Ur Leukocyte Esterase 1+ H Add Ur Microanalysis Reviewed Reviewed Leukocyte Esterase Rfl Trace H Urine RBC 21-50 H 0-2 Urine WBC 21-50 H 6-10 H Ur Squamous Epith Cells Many H Few Urine Bacteria Rare None seen Urine Casts 0-2 0-2 Influenza A (RT-PCR) Negative Influenza B (RT-PCR) Negative RSV (RT-PCR) Negative SARS-CoV-2 RNA (RT-PCR) Negative 10/23/24 07:14 WBC 26.3 H RBC 3.87 L Hgb 12.3 Hct 37.5 MCV 96.9 MCH 31.8 MCHC 32.8 RDW 13.8 Plt Count 233 MPV 9.4 Sodium 132 L Potassium 4.1 Chloride 102 Carbon Dioxide 23 Anion Gap 7 BUN 11 Creatinine 0.70 Estim Creat Clear Calc 85 Estimated GFR > 60 Glucose 154 H Lactic Acid 2.0 Calcium 8.7 Total Bilirubin 0.9 AST 23 ALT 55 H Alkaline Phosphatase 71 Total Protein 7.0 Albumin 3.6 Urine Color Urine Appearance Urine pH Ur Specific [place] Urine Protein Urine Glucose (UA) Urine Ketones Ur Blood (Man) Urine Nitrate Urine Bilirubin Urine Urobilinogen Ur Leukocyte Esterase Add Ur Microanalysis Leukocyte Esterase Rfl Urine RBC Urine WBC Ur Squamous Epith Cells Urine Bacteria Urine Casts Influenza A (RT-PCR) Influenza B (RT-PCR) RSV (RT-PCR) SARS-CoV-2 RNA (RT-PCR) Hospitalist MIPS Advance Care Plan I have confirmed that the patient's Advanced Care Plan is present, code status is documented, or surrogate decision maker is listed in patient medical record.: Yes Medication Reconciliation I have utilized all available resources to obtain, update and review the patients current medications (includes all prescriptions, OTC, herbals, cannabis, and nutritional supplements).: Yes
[2024-10-23] MEDS: traZODone HCL 50 MG TABLET PO (20:20)
[2024-10-23] MEDS: TAMSULOSIN HCL 0.4 MG CAPSULE PO (20:20)
[2024-10-24] VITALS (7 sets, daily range): BP systolic 91–112; BP diastolic 51–63; PULSE 68–89; RESP 18; TEMP 36.1–37.7; O2SAT 98–100
[2024-10-24] MEDS: HYDROmorphone HCL INJ (*CRX) 1 MG/ML SYR IV PUSH ×7 (00:34→21:25)
[2024-10-24] MEDS: ACETAMINOPHEN 325 MG TABLET 650 MG PO (00:42)
[2024-10-24] MEDS: oxyCODONE/ACETAMINOPHEN (*CRX) 10-325 MG TABLET 1 TAB PO (06:30)
[2024-10-24 06:37] LABS: Hematocrit 35.8 % (37.0-47.0); Hemoglobin 11.9 g/dL (12.0-15.0); Mean Corpuscular HGB Conc 33.2 g/dl (32-36); Mean Corpuscular Hemoglobin 32.2 pg (26-34); Mean Platelet Volume 9.6 fl (7.4-10.4); Platelet Count Result 228 k/mm3 (150-375); Red Blood Count 3.69 M/mm3 (4.2-5.4); Red Cell Distribution Width 13.6 % (11.5-14.5); White Blood Count 18.8 K/mm3 (4.5-10.0)
[2024-10-24 06:57] LABS: Alanine Aminotransferase 36 U/L (6-35); Albumin Level 3.2 g/dL (3.5-5.1); Alkaline Phosphatase 61 U/L (38-126); Anion Gap 3 mmol/L (4-12); Aspartate Amino Transferase 19 U/L (14-36); Bilirubin,Total 0.5 mg/dL (0.2-1.3); Blood Urea Nitrogen 7 mg/dL (7-17); Calcium 8.4 mg/dL (8.4-10.2); Carbon Dioxide 26 mmol/L (22-30); Chloride 108 mmol/L (98-107); Estimated CRCL calculation 85 ml/min; Estimated Glomerular Filt Rate > 60; Glucose 101 mg/dL (65-110); Potassium 4.2 mmol/L (3.4-5.0); Sodium 137 mmol/L (137-145)
[2024-10-24] MEDS: FLUTICASONE/SALMETEROL 115-21 MCG INHALER 1 PUFF 2 PUFF INHALATION ×2 (08:15→20:24)
[2024-10-24] MEDS: busPIRone HCL 5 MG TABLET 15 MG PO ×3 (08:19→16:34)
[2024-10-24] MEDS: lisinopriL 10 MG TABLET PO (08:19)
[2024-10-24] MEDS: metFORMIN HCL XR 500 MG TAB.SR.24H PO ×2 (08:19→16:34)
[2024-10-24] MEDS: polyethylene glycoL 3350 17 GM POWD.PACK PO (08:26)
[2024-10-24] MEDS: MEROPENEM 1 GM/NS 100 ML 1 GM/100 ML BAG IVPB ×3 (08:28→23:26)
[2024-10-24] MEDS: ENOXAPARIN 40 MG/0.4 ML SYRINGE SUB-Q (09:09)
[2024-10-24] MEDS: SODIUM CHLORIDE 0.9% IV 1,000 ML 75 ML IV CONT (09:10)
[2024-10-24] MEDS: VANCOMYCIN 1,500 MG/NS 500 ML 1,500 MG/500 ML BAG 150 MG IVPB (09:10)
[2024-10-24] MEDS: HYDROcodone/acetaminophen (*CRX) 10-325 MG TABLET 1 TAB PO ×2 (12:19→16:35)
--- NOTE | 2024-10-24 17:42 | P.PNIM_ITS ---
Progress Note: A&P Assessment and Plan (1) Right ureteral stone: Code(s): N20.1 - Calculus of ureter Status: Acute (2) UTI (urinary tract infection): Code(s): N39.0 - Urinary tract infection, site not specified Status: Acute (3) Hypertension: Code(s): I10 - Essential (primary) hypertension Status: Acute Plan 10/24: Preliminary blood culture shows no growth. Blood culture from 10/21 shows Enterococcus faecium resistant to ampicillin and sensitive to vancomycin, streptomycin and gentamicin. Will continue vancomycin for 2 weeks. 10/23: WBC is increasing but also patient has spikes of fever (105). Continue meropenem, vancomycin and doxycycline. Pending blood culture and urine culture 10/22:Patient WBC has been increased from 24.5 to 40.7 in spite of escalating the antibiotic yesterday from ceftriaxone to cefepime. Patient also febrile. Yesterday we obtained blood culture. Today ordered abdomen/pelvis CT, urinalysis and urine culture. Added doxycycline. In according to the blood culture culture escalated the antibiotic from cefepime to meropenem. Even though nasal MRSA was negative added vancomycin to cover Enterococcus. Urology evaluated the patient and reports today CT shows 5 nonobstructing stones in the left kidney up to 12mm and a 2mm nonobstructing stone in the right kidney. No bladder abnormality or hydronephrosis noted. Urology planning outpatient lise mackay and signed off the case. Right ureteral stone with hydronephrosis Bilateral Kidney stones now s/p cystoscopy, right retrograde pyelogram, right ureteroscopy, stone extraction, stent removal on 10/20/202410/22: repeat CT 5 nonobstructing stones in the left kidney up to 12mm and a 2mm nonobstructing stone in the right kidney. No bladder abnormality or hydronep hrosis noted. Urology signed of Possible UTI Worsening leukocytosis imanley from ureteral stone Patient reported dysuria with suprapubic pain. UA showed positive leukocyte esterase and nitrates Urine culture negative, blood culture shows Gram-positive cocci in chains Status post cefepime Ordered meropenem and doxycycline Repeated blood culture, urinalysis, urine culture monitor leukocytosis Constipation Continue Miralax CT AP showed constipation Hypertension Titrate medications with clinical course. Anxiety Continue medications. PCOS Hold metformin start discharge. IBD Monitor. DVT prophylaxis on Sq Lovenox Subjective Date/time seen: 10/24/24 17:42 Interval history: Patient still complains of pain. Patient WBCs trending down. Review of Systems Review of Systems: All other systems reviewed and negative except as noted in the history above. Exam Narrative: General: alert and comfortable Eyes: EOMI, PERRLA ENNT External ears normal, Neck is supple, no masses, Respiratory systems: Clear to auscultation Cardiovascular S1, S2, normal rhythm, no murmur, rub, or gallop; no thrill or palpable murmurs on palpation. Gastrointestinal: soft, non-tender, and non-distended abdomen with no masses; BS present Skin: no rash, lesions, ulcerations, subcutaneous nodules or induration Musculoskeletal: no abnormality and no tenderness, normal ROM Neurologic: Alert and oriented x3, non focal Mental Status Exam: normal affect Objective Data Vital Signs Vital Signs: Vital Signs - 24 hr 10/23/24 20:25 10/23/24 20:00 10/23/24 21:45 Temperature 97.6 F Pulse Rate 96 96 91 Respiratory Rate 18 18 Blood Pressure 105/52 L Pulse Oximetry 98 98 99 Oxygen Delivery Room Air Room Air 10/24/24 00:42 10/24/24 00:42 10/24/24 05:00 Temperature 99.9 F H 99.9 F H 97.8 F Pulse Rate 89 Respiratory Rate 18 Blood Pressure 91/51 L Pulse Oximetry 99 Oxygen Delivery 10/24/24 08:15 Temperature Pulse Rate Respiratory Rate Blood Pressure Pulse Oximetry 98 Oxygen Delivery Room Air Intake/Output Intake/Output: Intake & Output 10/21/24 10/22/24 10/23/24 10/24/24 23:59 23:59 23:59 23:59 Intake Total 1534 3068 4250 2440 Output Total 800 Balance 734 3068 4250 2440 Meds/Results Medications: Active Medications Generic Name Dose Route Start Last Admin Trade Name Freq PRN Reason Stop Dose Admin Acetaminophen 650 mg 10/22/24 03:37 10/24/24 00:42 Acetaminophen 325 Mg Tablet PO 650 mg Q6H PRN Administration Mild Pain (1-3) or Fever Hydrocodone Bitart/Acetaminophen 1 tab 10/17/24 12:20 10/23/24 17:22 Hydrocodone/Acetaminophen (*Crx) 10-325 Mg Tablet PO 1 tab Q6H PRN Administration Pain Rated 7-10 Hydrocodone Bitart/Acetaminophen 1 tab 10/20/24 13:23 10/24/24 16:35 Hydrocodone/Acetaminophen (*Crx) 10-325 Mg Tablet PO 1 tab Q6H PRN Administration Pain 4-6 Buspirone HCl 15 mg 10/15/24 17:00 10/24/24 16:34 Buspirone Hcl 5 Mg Tablet PO 15 mg TID MAYO Administration Dicyclomine HCl 20 mg 10/15/24 15:07 Dicyclomine Hcl 10 Mg Capsule PO TID PRN helps stomach Enoxaparin Sodium 40 mg 10/17/24 09:00 10/24/24 09:09 Enoxaparin 40 Mg/0.4 Ml Syringe SUB-Q 40 mg DAILY MAYO Administration Hydromorphone HCl 1 mg 10/15/24 11:12 10/24/24 14:20 Hydromorphone Hcl Inj (*Crx) 1 Mg/Ml Syr IV PUSH 1 mg Q2HR PRN Administration Pain Rated 7-10 Sodium Chloride 1,000 mls @ 125 mls/hr 10/23/24 05:45 10/24/24 09:10 Normal Saline Iv IV CONT 75 mls/hr .Q8H MAYO Administration Meropenem 1 gm in 100 mls @ 200 mls/hr 10/24/24 00:00 10/24/24 17:03 IVPB Infused Q8H MAYO Infusion Vancomycin HCl 1,500 mg in 500 mls @ 250 mls/hr 10/24/24 09:00 10/24/24 12:30 Vancomycin 1,500 Mg/Ns 500 Ml IVPB Infused Q12H MAYO Infusion Lisinopril 10 mg 10/21/24 09:00 10/24/24 08:19 Lisinopril 10 Mg Tablet PO 10 mg DAILY MAYO Administration Metformin HCl 500 mg 10/20/24 17:00 10/24/24 16:34 Metformin Hcl Xr 500 Mg Tab.Sr.24h PO 500 mg BIDWM MAYO Administration Miscellaneous Information 0 each 10/21/24 00:01 10/23/24 03:19 Viberzi Is Non-Formulary. Use Pt Own Supply? XX 11/20/24 00:00 Not Given CLARIFY MAYO Non-Formulary Medication 100 mg 10/20/24 17:00 Eluxadoline [Viberzi] PO 11/19/24 16:59 BID MAYO Oxybutynin Chloride 2.5 mg 10/17/24 19:34 10/20/24 14:14 Oxybutynin Chloride 2.5 Mg Tab PO 2.5 mg DAILY PRN Administration stent discomfort Phenazopyridine HCl 100 mg 10/17/24 19:32 10/20/24 20:38 Phenazopyridine Hcl 100 Mg Tablet PO 100 mg TID PRN Administration Dysuria Polyethylene Glycol 17 gm 10/19/24 09:00 10/24/24 08:26 Polyethylene Glycol 3350 17 Gm Powd.Pack PO 17 gm QAM MAYO Administration Fluticasone/Salmeterol 2 puff 10/20/24 20:00 10/24/24 08:15 Fluticasone/Salmeterol 115-21 Mcg Inhaler 1 Puff INHALATION 2 puff Q12HRT MAYO Administration Tamsulosin HCl 0.4 mg 10/17/24 21:00 10/23/24 20:20 Tamsulosin Hcl 0.4 Mg Capsule PO 0.4 mg HS MAYO Administration Trazodone HCl 50 mg 10/15/24 21:00 10/23/24 20:20 Trazodone Hcl 50 Mg Tablet PO 50 mg HS MAYO Administration Radiology Results: ITS Impressions Abdomen X-Ray 10/15/24 08:59 IMPRESSION: Hydronephrotic changes in the right kidney and ureter with dilated ureter above the lumbosacral area. Definite stones is not seen in the area. Abdomen/Pelvis CT 10/17/24 17:49 IMPRESSION: 1. Bilateral kidney stones with the right double-J stent. 2. Slightly prominent ovaries. Clinical correlation and follow-up advised. 3. Constipation. Retrograde Pyelogram 10/20/24 12:42 IMPRESSION: 1. Fluoroscopy utilized during reported right-sided ureteral stent removal. See procedure note for further detail. Chest/Abdomen/Pelvis CT 10/22/24 12:05 IMPRESSION: 1. Bilateral nonobstructing kidney stones. Chest X-Ray 10/23/24 07:12 Impression: Clear lungs. Labs Labs: Laboratory Results - last 24 hr 10/24/24 10/24/24 05:58 05:59 WBC 18.8 H RBC 3.69 L Hgb 11.9 L Hct 35.8 L MCV 97.0 MCH 32.2 MCHC 33.2 RDW 13.6 Plt Count 228 MPV 9.6 Sodium 137 Potassium 4.2 Chloride 108 H Carbon Dioxide 26 Anion Gap 3 L BUN 7 Creatinine 0.70 Estim Creat Clear Calc 85 Estimated GFR > 60 Glucose 101 Calcium 8.4 Total Bilirubin 0.5 AST 19 ALT 36 H Alkaline Phosphatase 61 Total Protein 6.0 L Albumin 3.2 L Hospitalist MIPS Advance Care Plan I have confirmed that the patient's Advanced Care Plan is present, code status is documented, or surrogate decision maker is listed in patient medical record.: Yes Medication Reconciliation I have utilized all available resources to obtain, update and review the patients current medications (includes all prescriptions, OTC, herbals, cannabi s, and nutritional supplements).: Yes
[2024-10-24 20:36] LABS: Vancomycin Trough 11.4 ug/mL (10.0-20.0)
[2024-10-24] MEDS: TAMSULOSIN HCL 0.4 MG CAPSULE PO (20:53)
[2024-10-24] MEDS: traZODone HCL 50 MG TABLET PO (20:53)
[2024-10-24] MEDS: VANCOMYCIN 1,500 MG/NS 500 ML 1,500 MG/500 ML BAG 250 MG IVPB (21:17)
[2024-10-25] VITALS (7 sets, daily range): BP systolic 109–114; BP diastolic 59–68; PULSE 77–96; RESP 18; TEMP 36.4–37.1; O2SAT 97–100
[2024-10-25] MEDS: HYDROmorphone HCL INJ (*CRX) 1 MG/ML SYR IV PUSH ×6 (00:25→20:56)
[2024-10-25] MEDS: SODIUM CHLORIDE 0.9% IV 1,000 ML 75 ML IV CONT (02:08)
[2024-10-25] MEDS: VANCOMYCIN 1,500 MG/NS 500 ML 1,500 MG/500 ML BAG 200 MG IVPB (05:02)
[2024-10-25 07:01] LABS: Hematocrit 35.5 % (37.0-47.0); Hemoglobin 11.5 g/dL (12.0-15.0); Mean Corpuscular HGB Conc 32.4 g/dl (32-36); Mean Corpuscular Hemoglobin 31.4 pg (26-34); Mean Platelet Volume 9.5 fl (7.4-10.4); Platelet Count Result 233 k/mm3 (150-375); Red Blood Count 3.66 M/mm3 (4.2-5.4); Red Cell Distribution Width 13.4 % (11.5-14.5); White Blood Count 16.3 K/mm3 (4.5-10.0)
[2024-10-25 07:15] LABS: Alanine Aminotransferase 29 U/L (6-35); Albumin Level 3.3 g/dL (3.5-5.1); Alkaline Phosphatase 58 U/L (38-126); Anion Gap 7 mmol/L (4-12); Aspartate Amino Transferase 16 U/L (14-36); Bilirubin,Total 0.4 mg/dL (0.2-1.3); Blood Urea Nitrogen 7 mg/dL (7-17); Calcium 8.4 mg/dL (8.4-10.2); Carbon Dioxide 22 mmol/L (22-30); Chloride 108 mmol/L (98-107); Estimated CRCL calculation 97 ml/min; Estimated Glomerular Filt Rate > 60; Glucose 99 mg/dL (65-110); Potassium 4.1 mmol/L (3.4-5.0); Sodium 137 mmol/L (137-145)
[2024-10-25] MEDS: busPIRone HCL 5 MG TABLET 15 MG PO ×3 (08:02→16:58)
[2024-10-25] MEDS: metFORMIN HCL XR 500 MG TAB.SR.24H PO ×2 (08:03→16:58)
[2024-10-25] MEDS: lisinopriL 10 MG TABLET PO (08:03)
[2024-10-25] MEDS: DICYCLOMINE HCL 10 MG CAPSULE 20 MG PO ×3 (08:03→16:58)
[2024-10-25] MEDS: polyethylene glycoL 3350 17 GM POWD.PACK PO (08:05)
[2024-10-25] MEDS: ENOXAPARIN 40 MG/0.4 ML SYRINGE SUB-Q (08:10)
[2024-10-25] MEDS: MEROPENEM 1 GM/NS 100 ML 1 GM/100 ML BAG IVPB (08:36)
[2024-10-25] MEDS: FLUTICASONE/SALMETEROL 115-21 MCG INHALER 1 PUFF 2 PUFF INHALATION ×2 (08:44→21:17)
--- NOTE | 2024-10-25 10:31 | PM.IMPN ---
Progress Note: A&P Assessment and Plan (1) Right ureteral stone: Code(s): N20.1 - Calculus of ureter Status: Acute (2) UTI (urinary tract infection): Code(s): N39.0 - Urinary tract infection, site not specified Status: Acute (3) Hypertension: Code(s): I10 - Essential (primary) hypertension Status: Acute Plan 10/25: Discontinued Merrem and will cont Vancomycin total of 2 weeks. If her WBC trends down ,possibly discharge with PICC line for Vancomycin 10/24: Preliminary blood culture shows no growth. Blood culture from 10/21 shows Enterococcus faecium resistant to ampicillin and sensitive to vancomycin, streptomycin and gentamicin. Will continue vancomycin for 2 weeks. 10/23: WBC is increasing but also patient has spikes of fever (105). Continue meropenem, vancomycin and doxycycline. Pending blood culture and urine culture 10/22:Patient WBC has been increased from 24.5 to 40.7 in spite of escalating the antibiotic yesterday from ceftriaxone to cefepime. Patient also febrile. Yesterday we obtained blood culture. Today ordered abdomen/pelvis CT, urinalysis and urine culture. Added doxycycline. In according to the blood culture culture escalated the antibiotic from cefepime to meropenem. Even though nasal MRSA was negative added vancomycin to cover Enterococcus. Urology evaluated the patient and reports today CT shows 5 nonobstructing stones in the left kidney up to 12mm and a 2mm nonobstructing stone in the right kidney. No bladder abnormality or hydronephrosis noted. Urology planning outpatient management and signed off the case. Right ureteral stone with hydronephrosis Bilateral Kidney stones now s/p cystoscopy, right retrograde pyelogram, right ureteroscopy, stone extraction, stent removal on 10/20/202410/22: repeat CT 5 nonobstructing stones in the left kidney up to 12mm and a 2mm nonobstructing stone in the right kidney. No bladder abnormality or hydronephrosis noted. Urology signed of Possible UTI Worsening leukocytosis likley from ureteral stone Patient reported dysuria with suprapubic pain. UA showed positive leukocyte esterase and nitrates Urine culture negative, blood culture shows Gram-positive cocci in chains Status post cefepime Ordered meropenem and doxycycline Repeated blood culture, urinalysis, urine culture monitor leukocytosis Constipation Continue Miralax CT AP showed constipation Hypertension Titrate medications with clinical course. Anxiety Continue medications. PCOS Hold metformin start discharge. IBD Monitor. DVT prophylaxis on Sq Lovenox Subjective Date/time seen: 10/25/24 10:31 Interval history: Discontinued Merrem and will cont Vancomycin total of 2 weeks. If her WBC trends down ,possibly discharge with PICC line for Vancomycin.Patient is feeling better than yesterday. No acute events overnight. Review of Systems Review of Systems: All other systems reviewed and negative except as noted in the history above. Exam Narrative: General: alert and comfortable Eyes: EOMI, PERRLA ENNT External ears normal, Neck is supple, no masses, Respiratory systems: Clear to auscultation Cardiovascular S1, S2, normal rhythm, no murmur, rub, or gallop; no thrill or palpable murmurs on palpation. Gastrointestinal: soft, non-tender, and non-distended abdomen with no masses; BS present Skin: no rash, lesions, ulcerations, subcutaneous nodules or induration Musculoskeletal: no abnormality and no tenderness, normal ROM Neurologic: Alert and oriented x3, non focal Mental Status Exam: normal affect Objective Data Vital Signs Vital Signs: Vital Signs - 24 hr 10/24/24 14:00 10/24/24 20:20 10/24/24 20:45 Temperature 96.9 F L 98.3 F Pulse Rate 68 84 Respiratory Rate 18 18 Blood Pressure 110/63 112/60 Pulse Oximetry 100 99 98 Oxygen Delivery Room Air 10/24/24 20:00 10/25/24 06:00 10/25/24 08:44 Temperature 97.6 F Pulse Rate 84 96 77 Respiratory Rate 18 18 Blood Pressure 109/59 L Pulse Oximetry 98 98 97 Oxygen Delivery Room Air Room Air 10/25/24 08:45 Temperature Pulse Rate 77 Respiratory Rate 18 Blood Pressure Pulse Oximetry Oxygen Delivery Intake/Output Intake/Output: Intake & Output 10/22/24 10/23/24 10/24/24 10/25/24 23:59 23:59 23:59 23:59 Intake Total 3068 4250 4580 1850 Balance 3068 4250 4580 1850 Meds/Results Medications: Active Medications Generic Name Dose Route Start Last Admin Trade Name Freq PRN Reason Stop Dose Admin Acetaminophen 650 mg 10/22/24 03:37 10/24/24 00:42 Acetaminophen 325 Mg Tablet PO 650 mg Q6H PRN Administration Mild Pain (1-3) or Fever Hydrocodone Bitart/Acetaminophen 1 tab 10/17/24 12:20 10/23/24 17:22 Hydrocodone/Acetaminophen (*Crx) 10-325 Mg Tablet PO 1 tab Q6H PRN Administration Pain Rated 7-10 Hydrocodone Bitart/Acetaminophen 1 tab 10/20/24 13:23 10/24/24 16:35 Hydrocodone/Acetaminophen (*Crx) 10-325 Mg Tablet PO 1 tab Q6H PRN Administration Pain 4-6 Buspirone HCl 15 mg 10/15/24 17:00 10/25/24 08:02 Buspirone Hcl 5 Mg Tablet PO 15 mg TID MAYO Administration Dicyclomine HCl 20 mg 10/15/24 15:07 10/25/24 08:03 Dicyclomine Hcl 10 Mg Capsule PO 20 mg TID PRN Administration helps stomach Enoxaparin Sodium 40 mg 10/17/24 09:00 10/25/24 08:10 Enoxaparin 40 Mg/0.4 Ml Syringe SUB-Q 40 mg DAILY MAYO Administration Hydromorphone HCl 1 mg 10/15/24 11:12 10/25/24 08:18 Hydromorphone Hcl Inj (*Crx) 1 Mg/Ml Syr IV PUSH 1 mg Q2HR PRN Administration Pain Rated 7-10 Sodium Chloride 1,000 mls @ 125 mls/hr 10/23/24 05:45 10/25/24 02:08 Normal Saline Iv IV CONT 75 mls/hr .Q8H MAYO Administration Vancomycin HCl 1,500 mg in 500 mls @ 250 mls/hr 10/24/24 21:00 10/25/24 08:30 Vancomycin 1,500 Mg/Ns 500 Ml IVPB Infused Q8H MAYO Infusion Lisinopril 10 mg 10/21/24 09:00 10/25/24 08:03 Lisinopril 10 Mg Tablet PO 10 mg DAILY MAYO Administration Metformin HCl 500 mg 10/20/24 17:00 10/25/24 08:03 Metformin Hcl Xr 500 Mg Tab.Sr.24h PO 500 mg BIDWM MAYO Administration Miscellaneous Information 0 each 10/21/24 00:01 10/23/24 03:19 Linda Is Non-Formulary. Use Pt Own Supply? XX 11/20/24 00:00 Not Given CLARIFY MAYO Non-Formulary Medication 100 mg 10/20/24 17:00 Eluxadoline [Viberzi] PO 11/19/24 16:59 BID MAYO Oxybutynin Chloride 2.5 mg 10/17/24 19:34 10/20/24 14:14 Oxybutynin Chloride 2.5 Mg Tab PO 2.5 mg DAILY PRN Administration stent discomfort Phenazopyridine HCl 100 mg 10/17/24 19:32 10/20/24 20:38 Phenazopyridine Hcl 100 Mg Tablet PO 100 mg TID PRN Administration Dysuria Polyethylene Glycol 17 gm 10/19/24 09:00 10/25/24 08:05 Polyethylene Glycol 3350 17 Gm Powd.Pack PO 17 gm QAM MAYO Administration Fluticasone/Salmeterol 2 puff 10/20/24 20:00 10/25/24 08:44 Fluticasone/Salmeterol 115-21 Mcg Inhaler 1 Puff INHALATION 2 puff Q12HRT MAYO Administration Tamsulosin HCl 0.4 mg 10/17/24 21:00 10/24/24 20:53 Tamsulosin Hcl 0.4 Mg Capsule PO 0.4 mg HS MAYO Administration Trazodone HCl 50 mg 10/15/24 21:00 10/24/24 20:53 Trazodone Hcl 50 Mg Tablet PO 50 mg HS MAYO Administration Radiology Results: ITS Impressions Abdomen X-Ray 10/15/24 08:59 IMPRESSION: Hydronephrotic changes in the right kidney and ureter with dilated ureter above the lumbosacral area. Definite stones is not seen in the area. Abdomen/Pelvis CT 10/17/24 17:49 IMPRESSION: 1. Bilateral kidney stones with the right double-J stent. 2. Slightly prominent ovaries. Clinical correlation and follow-up advised. 3. Constipation. Retrograde Pyelogram 10/20/24 12:42 IMPRESSION: 1. Fluoroscopy utilized during reported right-sided ureteral stent removal. See procedure note for further detail. Chest/Abdomen/Pelvis CT 10/22/24 12:05 IMPRESSION: 1. Bilateral nonobstructing kidney stones. Chest X-Ray 10/23/24 07:12 Impression: Clear lungs. Labs Labs: Laboratory Results - last 24 hr 10/24/24 10/25/24 20:00 06:48 WBC 16.3 H RBC 3.66 L Hgb 11.5 L Hct 35.5 L MCV 97.0 MCH 31.4 MCHC 32.4 RDW 13.4 Plt Count 233 MPV 9.5 Sodium 137 Potassium 4.1 Chloride 108 H Carbon Dioxide 22 Anion Gap 7 BUN 7 Creatinine 0.60 L Estim Creat Clear Calc 97 Estimated GFR > 60 Glucose 99 Calcium 8.4 Total Bilirubin 0.4 AST 16 ALT 29 Alkaline Phosphatase 58 Total Protein 6.0 L Albumin 3.3 L Vancomycin Trough 11.4 Hospitalist MIPS Advance Care Plan I have confirmed that the patient's Advanced Care Plan is present, code status is documented, or surrogate decision maker is listed in patient medical record.: Yes Medication Reconciliation I have utilized all available resources to obtain, update and review the patients current medications (includes all prescriptions, OTC, herbals, cannabis, and nutritional supplements).: Yes
[2024-10-25] MEDS: HYDROcodone/acetaminophen (*CRX) 10-325 MG TABLET 1 TAB PO ×2 (11:08→16:58)
[2024-10-25] MEDS: LORazepam INJ (*CRX) 2 MG/ML VIAL 1 MG IM (13:11)
[2024-10-25] MEDS: LIDOCAINE HCL 1% PF INJ 5 ML VIAL INFILTRATE (14:45)
[2024-10-25] MEDS: VANCOMYCIN 1,500 MG/NS 500 ML 1,500 MG/500 ML BAG 250 MG IVPB (15:38)
[2024-10-25] MEDS: traZODone HCL 50 MG TABLET PO (20:27)
[2024-10-25] MEDS: TAMSULOSIN HCL 0.4 MG CAPSULE PO (20:27)
[2024-10-25] MEDS: CENTRAL LINE FLUSH 10 ML IV PUSH (20:29)
[2024-10-25] MEDS: VANCOMYCIN 1,250 MG/NS 250 ML 1,250 MG/250 ML BAG 166.67 MG IVPB (23:11)
[2024-10-26] MEDS: HYDROmorphone HCL INJ (*CRX) 1 MG/ML SYR IV PUSH ×5 (01:05→21:48)
[2024-10-26 01:11] VITALS: TEMP 37.7
[2024-10-26] MEDS: ACETAMINOPHEN 325 MG TABLET 650 MG PO (01:11)
[2024-10-26] MEDS: CENTRAL LINE FLUSH 10 ML IV PUSH ×3 (05:39→22:00)
[2024-10-26 05:45] VITALS: BP 115/79; PULSE 91; RESP 16; TEMP 36.6; O2SAT 99
[2024-10-26] MEDS: VANCOMYCIN 1,250 MG/NS 250 ML 1,250 MG/250 ML BAG 166.67 MG IVPB (08:03)
[2024-10-26] MEDS: busPIRone HCL 5 MG TABLET 15 MG PO ×3 (08:14→16:50)
[2024-10-26] MEDS: metFORMIN HCL XR 500 MG TAB.SR.24H PO ×2 (08:14→16:50)
[2024-10-26] MEDS: lisinopriL 10 MG TABLET PO (08:14)
[2024-10-26] MEDS: ENOXAPARIN 40 MG/0.4 ML SYRINGE SUB-Q (08:14)
[2024-10-26 08:30] VITALS: PULSE 87; RESP 20; O2SAT 98
[2024-10-26] MEDS: FLUTICASONE/SALMETEROL 115-21 MCG INHALER 1 PUFF 2 PUFF INHALATION ×2 (08:30→23:34)
[2024-10-26] MEDS: SODIUM CHLORIDE 0.9% IV 1,000 ML 125 ML IV CONT (10:20)
[2024-10-26] MEDS: HYDROcodone/acetaminophen (*CRX) 10-325 MG TABLET 1 TAB PO (10:31)
[2024-10-26 11:28] LABS: Hematocrit 32.7 % (37.0-47.0); Hemoglobin 11.2 g/dL (12.0-15.0); Mean Corpuscular HGB Conc 34.3 g/dl (32-36); Mean Corpuscular Hemoglobin 32.3 pg (26-34); Mean Corpuscular Volume 94.2 fl (80-100); Mean Platelet Volume 9.5 fl (7.4-10.4); Platelet Count Result 229 k/mm3 (150-375); Red Blood Count 3.47 M/mm3 (4.2-5.4); Red Cell Distribution Width 13.2 % (11.5-14.5); White Blood Count 14.6 K/mm3 (4.5-10.0)
[2024-10-26 11:36] LABS: Alanine Aminotransferase 23 U/L (6-35); Albumin Level 3.1 g/dL (3.5-5.1); Alkaline Phosphatase 57 U/L (38-126); Anion Gap 5 mmol/L (4-12); Aspartate Amino Transferase 17 U/L (14-36); Bilirubin,Total 0.3 mg/dL (0.2-1.3); Blood Urea Nitrogen 6 mg/dL (7-17); Calcium 8.6 mg/dL (8.4-10.2); Carbon Dioxide 27 mmol/L (22-30); Chloride 105 mmol/L (98-107); Estimated CRCL calculation 115 ml/min; Estimated Glomerular Filt Rate > 60; Glucose 99 mg/dL (65-110); Potassium 3.7 mmol/L (3.4-5.0); Sodium 137 mmol/L (137-145)
--- NOTE | 2024-10-26 13:02 | P.PNIM_ITS ---
Progress Note: A&P Assessment and Plan (1) Right ureteral stone: Code(s): N20.1 - Calculus of ureter Status: Acute (2) UTI (urinary tract infection): Code(s): N39.0 - Urinary tract infection, site not specified Status: Acute (3) Hypertension: Code(s): I10 - Essential (primary) hypertension Status: Acute Plan 10/26: Ordered CT scan abdomen pelvis. PICC line for vancomycin 2 weeks. 10/25: Discontinued Merrem and will cont Vancomycin total of 2 weeks. If her WBC trends down ,possibly discharge with PICC line for Vancomycin 10/24: Preliminary blood culture shows no growth. Blood culture from 10/21 shows Enterococcus faecium resistant to ampicillin and sensitive to vancomycin, streptomycin and gentamicin. Will continue vancomycin for 2 weeks. 10/23: WBC is increasing but also patient has spikes of fever (105). Continue meropenem, vancomycin and doxycycline. Pending blood culture and urine culture 10/22:Patient WBC has been increased from 24.5 to 40.7 in spite of escalating the antibiotic yesterday from ceftriaxone to cefepime. Patient also febrile. Yesterday we obtained blood culture. Today ordered abdomen/pelvis CT, urinalysis and urine culture. Added doxycycline. In according to the blood culture culture escalated the antibiotic from cefepime to meropenem. Even though nasal MRSA was negative added vancomycin to cover Enterococcus. Urology evaluated the patient and reports today CT shows 5 nonobstructing stones in the left kidney up to 12mm and a 2mm nonobstructing stone in the right kidney. No bladder abnormality or hydronephrosis noted. Urology planning outpatient management and signed off the case. Right ureteral stone with hydronephrosis Bilateral Kidney stones now s/p cystoscopy, right retrograde pyelogram, right ureteroscopy, stone extraction, stent removal on 10/20/202410/22: repeat CT 5 nonobstructing stones in the left kidney up to 12mm and a 2mm nonobstructing stone in the right kidney. No bladder abnormality or hydronephrosis noted. Urology signed of Possible UTI Worsening leukocytosis imanley from ureteral stone Patient reported dysuria with suprapubic pain. UA showed positive leukocyte esterase and nitrates Urine culture negative, blood culture shows Gram-positive cocci in chains Status post cefepime Ordered meropenem and doxycycline Repeated blood culture, urinalysis, urine culture monitor leukocytosis Constipation Continue Miralax CT AP showed constipation Hypertension Titrate medications with clinical course. Anxiety Continue medications. PCOS Hold metformin start discharge. IBD Monitor. DVT prophylaxis on Sq Lovenox Subjective Date/time seen: 10/26/24 13:02 Interval history: Patient lost her IV line. Patient needs 2 weeks of vancomycin, so placed the PICC line today. Tomorrow we will educate IV infusion.WBC trending down. Naresh stefanie complains of pain and concerned about her renal stone being moved and wanted to do CT scan. Review of Systems Review of Systems: All other systems reviewed and negative except as noted in the history above. Exam Narrative: General: alert and comfortable Eyes: EOMI, PERRLA ENNT External ears normal, Neck is supple, no masses, Respiratory systems: Clear to auscultation Cardiovascular S1, S2, normal rhythm, no murmur, rub, or gallop; no thrill or palpable murmurs on palpation. Gastrointestinal: soft, non-tender, and non-distended abdomen with no masses; BS present Skin: no rash, lesions, ulcerations, subcutaneous nodules or induration Musculoskeletal: no abnormality and no tenderness, normal ROM Neurologic: Alert and oriented x3, non focal Mental Status Exam: normal affect Objective Data Vital Signs Vital Signs: Vital Signs - 24 hr 10/25/24 14:00 10/25/24 21:20 10/25/24 20:00 Temperature 97.8 F Pulse Rate 96 96 Respiratory Rate 18 18 Blood Pressure 113/68 Pulse Oximetry 99 97 97 Oxygen Delivery Room Air Room Air Fraction of Inspired Oxygen 10/25/24 21:36 10/26/24 01:11 10/26/24 01:11 Temperature 98.8 F 99.8 F H 99.8 F H Pulse Rate 93 Respiratory Rate 18 Blood Pressure 114/67 Pulse Oximetry 100 Oxygen Delivery Fraction of Inspired Oxygen 10/26/24 05:45 10/26/24 08:30 10/26/24 08:30 Temperature 97.9 F Pulse Rate 91 87 Respiratory Rate 16 20 Blood Pressure 115/79 Pulse Oximetry 99 98 Oxygen Delivery Room Air Fraction of Inspired Oxygen 21 10/26/24 08:15 Temperature Pulse Rate Respiratory Rate Blood Pressure Pulse Oximetry Oxygen Delivery Room Air Fraction of Inspired Oxygen Intake/Output Intake/Output: Intake & Output 12/04/1110/24/24 10/25/24 10/26/24 23:59 23:59 23:59 23:59 Intake Total 4250 4580 3650 1570 Balance 4250 4580 3650 1570 Meds/Results Medications: Active Medications Generic Name Dose Route Start Last Admin Trade Name Freq PRN Reason Stop Dose Admin Acetaminophen 650 mg 10/22/24 03:37 10/26/24 01:11 Acetaminophen 325 Mg Tablet PO 650 mg Q6H PRN Administration Mild Pain (1-3) or Fever Hydrocodone Bitart/Acetaminophen 1 tab 10/17/24 12:20 10/26/24 10:31 Hydrocodone/Acetaminophen (*Crx) 10-325 Mg Tablet PO 1 tab Q6H PRN Administration Pain Rated 7-10 Hydrocodone Bitart/Acetaminophen 1 tab 10/20/24 13:23 10/25/24 16:58 Hydrocodone/Acetaminophen (*Crx) 10-325 Mg Tablet PO 1 tab Q6H PRN Administration Pain 4-6 Buspirone HCl 15 mg 10/15/24 17:00 10/26/24 12:41 Buspirone Hcl 5 Mg Tablet PO 15 mg TID MAYO Administration Dicyclomine HCl 20 mg 10/15/24 15:07 10/25/24 16:58 Dicyclomine Hcl 10 Mg Capsule PO 20 mg TID PRN Administration helps stomach Enoxaparin Sodium 40 mg 10/17/24 09:00 10/26/24 08:14 Enoxaparin 40 Mg/0.4 Ml Syringe SUB-Q 40 mg DAILY MAYO Administration Hydromorphone HCl 1 mg 10/25/24 12:49 10/26/24 12:41 Hydromorphone Hcl Inj (*Crx) 1 Mg/Ml Syr IV PUSH 1 mg Q2HR PRN Administration Pain Rated 7-10 Sodium Chloride 1,000 mls @ 125 mls/hr 10/23/24 05:45 10/25/24 15:39 Normal Saline Iv IV CONT 125 mls/hr .Q8H MAYO Infusion Vancomycin HCl 1,250 mg in 250 mls @ 166.667 mls/hr 10/26/24 00:00 10/26/24 09:33 Vancomycin 1,250 Mg/Ns 250 Ml IVPB Infused Q8H MAYO Infusion Lisinopril 10 mg 10/21/24 09:00 10/26/24 08:14 Lisinopril 10 Mg Tablet PO 10 mg DAILY MAYO Administration Metformin HCl 500 mg 10/20/24 17:00 10/26/24 08:14 Metformin Hcl Xr 500 Mg Tab.Sr.24h PO 500 mg BIDWM MAYO Administration Miscellaneous Information 0 each 10/21/24 00:01 10/23/24 03:19 Viberzi Is Non-Formulary. Use Pt Own Supply? XX 11/20/24 00:00 Not Given CLARIFY MAYO Miscellaneous Information 0 each 10/26/24 00:01 Brinkley Order Requires Renewal Or It Will Automatically Discontinue XX 11/25/24 00:00 CLARIFY [facility] Non-Formulary Medication 100 mg 10/20/24 17:00 Eluxadoline [Viberzi] PO 11/19/24 16:59 BID MAYO Oxybutynin Chloride 2.5 mg 10/17/24 19:34 10/20/24 14:14 Oxybutynin Chloride 2.5 Mg Tab PO 2.5 mg DAILY PRN Administration stent discomfort Phenazopyridine HCl 100 mg 10/17/24 19:32 10/20/24 20:38 Phenazopyridine Hcl 100 Mg Tablet PO 100 mg TID PRN Administration Dysuria Polyethylene Glycol 17 gm 10/19/24 09:00 10/26/24 08:16 Polyethylene Glycol 3350 17 Gm Powd.Pack PO Not Given QAM MAYO Fluticasone/Salmeterol 2 puff 10/20/24 20:00 10/26/24 08:30 Fluticasone/Salmeterol 115-21 Mcg Inhaler 1 Puff INHALATION 2 puff Q12HRT MAYO Administration Sodium Chloride 20 ml 10/25/24 15:39 Central Line Flush IV PUSH PRN PRN after blood draws Sodium Chloride 10 ml 10/25/24 15:39 Central Line Flush IV PUSH PRN PRN with TPN bag changes Sodium Chloride 10 ml 10/25/24 22:00 10/26/24 12:41 Central Line Flush IV PUSH 10 ml Q8HR MAYO Administration Tamsulosin HCl 0.4 mg 10/17/24 21:00 10/25/24 20:27 Tamsulosin Hcl 0.4 Mg Capsule PO 0.4 mg HS MAYO Administration Trazodone HCl 50 mg 10/15/24 21:00 10/25/24 20:27 Trazodone Hcl 50 Mg Tablet PO 50 mg HS MAYO Administration Radiology Results: ITS Impressions Abdomen X-Ray 10/15/24 08:59 IMPRESSION: Hydronephrotic changes in the right kidney and ureter with dilated ureter above the lumbosacral area. Definite stones is not seen in the area. Abdomen/Pelvis CT 10/17/24 17:49 IMPRESSION: 1. Bilateral kidney stones with the right double-J stent. 2. Slightly prominent ovaries. Clinical correlation and follow-up advised. 3. Constipation. Retrograde Pyelogram 10/20/24 12:42 IMPRESSION: 1. Fluoroscopy utilized during reported right-sided ureteral stent removal. See procedure note for further detail. Chest/Abdomen/Pelvis CT 10/22/24 12:05 IMPRESSION: 1. Bilateral nonobstructing kidney stones. Chest X-Ray 10/23/24 07:12 Impression: Clear lungs. Labs Labs: Laboratory Results - last 24 hr 10/25/24 10/26/24 20:54 11:12 WBC 14.6 H RBC 3.47 L Hgb 11.2 L Hct 32.7 L MCV 94.2 MCH 32.3 MCHC 34.3 RDW 13.2 Plt Count 229 MPV 9.5 Sodium 137 Potassium 3.7 Chloride 105 Carbon Dioxide 27 Anion Gap 5 BUN 6 L Creatinine 0.50 L Estim Creat Clear Calc 115 Estimated GFR > 60 Glucose 99 Calcium 8.6 Total Bilirubin 0.3 AST 17 ALT 23 Alkaline Phosphatase 57 Total Protein 6.0 L Albumin 3.1 L Vancomycin Trough 20.0 Hospitalist MIPS Advance Care Plan I have confirmed that the patient's Advanced Care Plan is present, code status is documented, or surrogate decision maker is listed in patient medical record.: Yes Medication Reconciliation I have utilized all available resources to obtain, update and review the patients current medications (includes all prescriptions, OTC, herbals, cannabis, and nutritional supplements).: Yes
[2024-10-26 14:00] VITALS: BP 108/73; PULSE 91; RESP 16; TEMP 36.6; O2SAT 100
[2024-10-26] MEDS: oxyCODONE/ACETAMINOPHEN (*CRX) 10-325 MG TABLET 1 TAB PO ×2 (15:30→23:01)
[2024-10-26] MEDS: VANCOMYCIN 1,250 MG/NS 250 ML 1,250 MG/250 ML BAG 166.66 MG IVPB (15:31)
[2024-10-26] MEDS: traZODone HCL 50 MG TABLET PO (21:48)
[2024-10-26] MEDS: TAMSULOSIN HCL 0.4 MG CAPSULE PO (21:48)
[2024-10-26 22:00] VITALS: BP 149/99; PULSE 95; RESP 18; TEMP 36.7; O2SAT 100
[2024-10-27 01:56] LABS: Vancomycin Trough 16.2 ug/mL (10.0-20.0)
[2024-10-27] MEDS: SODIUM CHLORIDE 0.9% IV 1,000 ML 125 ML IV CONT ×3 (01:56→23:40)
[2024-10-27] MEDS: oxyCODONE/ACETAMINOPHEN (*CRX) 10-325 MG TABLET 1 TAB PO ×4 (02:39→22:06)
[2024-10-27] MEDS: VANCOMYCIN 1,250 MG/NS 250 ML 1,250 MG/250 ML BAG 166.67 MG IVPB ×3 (02:40→18:21)
[2024-10-27 06:00] VITALS: BP 114/69; PULSE 89; RESP 16; TEMP 36.3; O2SAT 98
[2024-10-27] MEDS: CENTRAL LINE FLUSH 10 ML IV PUSH ×3 (06:29→22:30)
[2024-10-27 06:35] LABS: Hematocrit 32.5 % (37.0-47.0); Mean Corpuscular HGB Conc 33.8 g/dl (32-36); Mean Corpuscular Hemoglobin 32.4 pg (26-34); Mean Corpuscular Volume 95.9 fl (80-100); Mean Platelet Volume 9.5 fl (7.4-10.4); Platelet Count Result 228 k/mm3 (150-375); Red Blood Count 3.39 M/mm3 (4.2-5.4); Red Cell Distribution Width 13.2 % (11.5-14.5); White Blood Count 14.9 K/mm3 (4.5-10.0)
[2024-10-27 06:43] LABS: Alanine Aminotransferase 20 U/L (6-35); Alkaline Phosphatase 55 U/L (38-126); Anion Gap 5 mmol/L (4-12); Aspartate Amino Transferase 17 U/L (14-36); Bilirubin,Total 0.2 mg/dL (0.2-1.3); Blood Urea Nitrogen 7 mg/dL (7-17); Calcium 8.4 mg/dL (8.4-10.2); Carbon Dioxide 26 mmol/L (22-30); Chloride 105 mmol/L (98-107); Estimated CRCL calculation 115 ml/min; Estimated Glomerular Filt Rate > 60; Glucose 92 mg/dL (65-110); Potassium 3.7 mmol/L (3.4-5.0); Sodium 136 mmol/L (137-145)
[2024-10-27 08:00] VITALS: PULSE 65; RESP 20; O2SAT 98
[2024-10-27] MEDS: FLUTICASONE/SALMETEROL 115-21 MCG INHALER 1 PUFF 2 PUFF INHALATION ×2 (08:00→20:25)
[2024-10-27] MEDS: polyethylene glycoL 3350 17 GM POWD.PACK PO (08:54)
[2024-10-27] MEDS: busPIRone HCL 5 MG TABLET 15 MG PO ×3 (08:55→17:07)
[2024-10-27] MEDS: metFORMIN HCL XR 500 MG TAB.SR.24H PO ×2 (08:55→17:07)
[2024-10-27] MEDS: lisinopriL 10 MG TABLET PO (08:55)
[2024-10-27] MEDS: HYDROmorphone HCL INJ (*CRX) 1 MG/ML SYR IV PUSH ×4 (08:56→20:47)
[2024-10-27] MEDS: ENOXAPARIN 40 MG/0.4 ML SYRINGE SUB-Q (09:01)
--- NOTE | 2024-10-27 13:30 | P.PNIM_ITS ---
Progress Note: A&P Assessment and Plan (1) Right ureteral stone: Code(s): N20.1 - Calculus of ureter Status: Acute (2) UTI (urinary tract infection): Code(s): N39.0 - Urinary tract infection, site not specified Status: Acute (3) Hypertension: Code(s): I10 - Essential (primary) hypertension Status: Acute Plan 10/26: Ordered CT scan abdomen pelvis. PICC line for vancomycin 2 weeks. 10/25: Discontinued Merrem and will cont Vancomycin total of 2 weeks. If her WBC trends down ,possibly discharge with PICC line for Vancomycin 10/24: Preliminary blood culture shows no growth. Blood culture from 10/21 shows Enterococcus faecium resistant to ampicillin and sensitive to vancomycin, streptomycin and gentamicin. Will continue vancomycin for 2 weeks. 10/23: WBC is increasing but also patient has spikes of fever (105). Continue meropenem, vancomycin and doxycycline. Pending blood culture and urine culture 10/22:Patient WBC has been increased from 24.5 to 40.7 in spite of escalating the antibiotic yesterday from ceftriaxone to cefepime. Patient also febrile. Yesterday we obtained blood culture. Today ordered abdomen/pelvis CT, urinalysis and urine culture. Added doxycycline. In according to the blood culture culture escalated the antibiotic from cefepime to meropenem. Even though nasal MRSA was negative added vancomycin to cover Enterococcus. Urology evaluated the patient and reports today CT shows 5 nonobstructing stones in the left kidney up to 12mm and a 2mm nonobstructing stone in the right kidney. No bladder abnormality or hydronephrosis noted. Urology planning outpatient management and signed off the case. Right ureteral stone with hydronephrosis Bilateral Kidney stones now s/p cystoscopy, right retrograde pyelogram, right ureteroscopy, stone extraction, stent removal on 10/20/202410/22: repeat CT 5 nonobstructing stones in the left kidney up to 12mm and a 2mm nonobstructing stone in the right kidney. No bladder abnormality or hydronephrosis noted. Urology signed of Possible UTI Worsening leukocytosis imanley from ureteral stone Patient reported dysuria with suprapubic pain. UA showed positive leukocyte esterase and nitrates Urine culture negative, blood culture shows Gram-positive cocci in chains Status post cefepime Ordered meropenem and doxycycline Repeated blood culture, urinalysis, urine culture monitor leukocytosis Constipation Continue Miralax CT AP showed constipation Hypertension Titrate medications with clinical course. Anxiety Continue medications. PCOS Hold metformin start discharge. IBD Monitor. DVT prophylaxis on Sq Lovenox Subjective Date/time seen: 10/27/24 13:30 Interval history: Patient was about to get discharged with vancomycin 17 50 mg IV q.12 hours until 11 06 but was not able to arrange home healthcare to set up the process. P atient will be discharged tomorrow. Denies any complaints other than the flank pain due to nephrolithiasis. Review of Systems Review of Systems: All other systems reviewed and negative except as noted in the history above. Exam Narrative: General: alert and comfortable Eyes: EOMI, PERRLA ENNT External ears normal, Neck is supple, no masses, Respiratory systems: Clear to auscultation Cardiovascular S1, S2, normal rhythm, no murmur, rub, or gallop; no thrill or palpable murmurs on palpation. Gastrointestinal: soft, non-tender, and non-distended abdomen with no masses; BS present Skin: no rash, lesions, ulcerations, subcutaneous nodules or induration Musculoskeletal: no abnormality and no tenderness, normal ROM Neurologic: Alert and oriented x3, non focal Mental Status Exam: normal affect Objective Data Vital Signs Vital Signs: Vital Signs - 24 hr 10/26/24 14:00 10/26/24 22:00 10/26/24 20:00 Temperature 97.9 F 98.1 F Pulse Rate 91 95 Respiratory Rate 16 18 Blood Pressure 108/73 149/99 H Pulse Oximetry 100 100 Oxygen Delivery Room Air 10/27/24 06:00 10/27/24 08:00 10/27/24 08:00 Temperature 97.3 F L Pulse Rate 89 65 Respiratory Rate 16 20 Blood Pressure 114/69 Pulse Oximetry 98 98 Oxygen Delivery Room Air 10/27/24 08:00 Temperature Pulse Rate Respiratory Rate Blood Pressure Pulse Oximetry Oxygen Delivery Room Air Intake/Output Intake/Output: Intake & Output 10/24/24 10/25/24 10/26/24 10/27/24 23:59 23:59 23:59 23:59 Intake Total 4580 3650 2690 1838 Balance 4580 3650 2690 1838 Meds/Results Medications: Active Medications Generic Name Dose Route Start Last Admin Trade Name Freq PRN Reason Stop Dose Admin Acetaminophen 650 mg 10/22/24 03:37 10/26/24 01:11 Acetaminophen 325 Mg Tablet PO 650 mg Q6H PRN Administration Mild Pain (1-3) or Fever Buspirone HCl 15 mg 10/15/24 17:00 10/27/24 12:17 Buspirone Hcl 5 Mg Tablet PO 15 mg TID MAYO Administration Dicyclomine HCl 20 mg 10/15/24 15:07 10/25/24 16:58 Dicyclomine Hcl 10 Mg Capsule PO 20 mg TID PRN Administration helps stomach Enoxaparin Sodium 40 mg 10/17/24 09:00 10/27/24 09:01 Enoxaparin 40 Mg/0.4 Ml Syringe SUB-Q 40 mg DAILY MAYO Administration Hydromorphone HCl 1 mg 10/25/24 12:49 10/27/24 08:56 Hydromorphone Hcl Inj (*Crx) 1 Mg/Ml Syr IV PUSH 1 mg Q2HR PRN Administration Pain Rated 7-10 Sodium Chloride 1,000 mls @ 125 mls/hr 10/23/24 05:45 10/27/24 01:56 Normal Saline Iv IV CONT 125 mls/hr .Q8H MAYO Administration Vancomycin HCl 1,250 mg in 250 mls @ 166.667 mls/hr 10/27/24 03:00 10/27/24 11:04 Vancomycin 1,250 Mg/Ns 250 Ml IVPB 166.67 mls/hr Q8H MAYO Administration Lisinopril 10 mg 10/21/24 09:00 10/27/24 08:55 Lisinopril 10 Mg Tablet PO 10 mg DAILY MAYO Administration Metformin HCl 500 mg 10/20/24 17:00 10/27/24 08:55 Metformin Hcl Xr 500 Mg Tab.Sr.24h PO 500 mg BIDWM MAYO Administration Miscellaneous Information 0 each 10/21/24 00:01 10/23/24 03:19 Viberzi Is Non-Formulary. Use Pt Own Supply? XX 11/20/24 00:00 Not Given CLARIFY MAYO Non-Formulary Medication 100 mg 10/20/24 17:00 Eluxadoline [Viberzi] PO 11/19/24 16:59 BID MAYO Oxybutynin Chloride 2.5 mg 10/17/24 19:34 10/20/24 14:14 Oxybutynin Chloride 2.5 Mg Tab PO 2.5 mg DAILY PRN Administration stent discomfort Oxycodone/Acetaminophen 1 tablet 10/26/24 13:11 Oxycodone/Acetaminophen (*Crx) 5-325 Mg Tablet PO Q4H PRN Pain Rated 4-6 Oxycodone/Acetaminophen 1 tab 10/26/24 13:11 10/27/24 11:07 Oxycodone/Acetaminophen (*Crx) 10-325 Mg Tablet PO 1 tab Q4H PRN Administration Pain Rated 7-10 Phenazopyridine HCl 100 mg 10/17/24 19:32 10/20/24 20:38 Phenazopyridine Hcl 100 Mg Tablet PO 100 mg TID PRN Administration Dysuria Polyethylene Glycol 17 gm 10/19/24 09:00 10/27/24 08:54 Polyethylene Glycol 3350 17 Gm Powd.Pack PO 17 gm QAM MAYO Administration Fluticasone/Salmeterol 2 puff 10/20/24 20:00 10/27/24 08:00 Fluticasone/Salmeterol 115-21 Mcg Inhaler 1 Puff INHALATION 2 puff Q12HRT MAYO Administration Sodium Chloride 20 ml 10/25/24 15:39 Central Line Flush IV PUSH PRN PRN after blood draws Sodium Chloride 10 ml 10/25/24 15:39 Central Line Flush IV PUSH PRN PRN with TPN bag changes Sodium Chloride 10 ml 10/25/24 22:00 10/27/24 12:18 Central Line Flush IV PUSH 10 ml Q8HR MAYO Administration Tamsulosin HCl 0.4 mg 10/17/24 21:00 10/26/24 21:48 Tamsulosin Hcl 0.4 Mg Capsule PO 0.4 mg HS MAYO Administration Trazodone HCl 50 mg 10/15/24 21:00 10/26/24 21:48 Trazodone Hcl 50 Mg Tablet PO 50 mg HS MAYO Administration Radiology Results: ITS Impressions Abdomen X-Ray 10/15/24 08:59 IMPRESSION: Hydronephrotic changes in the right kidney and ureter with dilated ureter above the lumbosacral area. Definite stones is not seen in the area. Retrograde Pyelogram 10/20/24 12:42 IMPRESSION: 1. Fluoroscopy utilized during reported right-sided ureteral stent removal. See procedure note for further detail. Chest/Abdomen/Pelvis CT 10/22/24 12:05 IMPRESSION: 1. Bilateral nonobstructing kidney stones. Chest X-Ray 10/23/24 07:12 Impression: Clear lungs. Abdomen/Pelvis CT 10/26/24 15:09 IMPRESSION: Asymmetric right nephromegaly, mild right pararenal fascial thickening, mild right perirenal and periureteral fat stranding in the prone recommend clinical correlation for right pyelonephritis ADDENDUM: 10/26/24 1720 Impression: IMPRESSION: Asymmetric right nephromegaly, mild right perirenal fascial thickening, mild right perirenal and periureteral fat stranding; recommend clinical correlation for right acute pyelonephritis Labs Labs: Laboratory Results - last 24 hr 10/26/24 10/27/24 23:12 06:22 WBC 14.9 H RBC 3.39 L Hgb 11.0 L Hct 32.5 L MCV 95.9 MCH 32.4 MCHC 33.8 RDW 13.2 Plt Count 228 MPV 9.5 Sodium 136 L Potassium 3.7 Chloride 105 Carbon Dioxide 26 Anion Gap 5 BUN 7 Creatinine 0.50 L Estim Creat Clear Calc 115 Estimated GFR > 60 Glucose 92 Calcium 8.4 Total Bilirubin 0.2 AST 17 ALT 20 Alkaline Phosphatase 55 Total Protein 6.0 L Albumin 3.0 L Vancomycin Trough 16.2
[2024-10-27 14:00] VITALS: BP 120/58; PULSE 68; RESP 20; TEMP 36.3; O2SAT 97
[2024-10-27 20:28] VITALS: O2SAT 98
[2024-10-27] MEDS: traZODone HCL 50 MG TABLET PO (20:47)
[2024-10-27] MEDS: TAMSULOSIN HCL 0.4 MG CAPSULE PO (20:47)
[2024-10-27 21:57] VITALS: BP 126/91; PULSE 85; RESP 18; TEMP 37.2; O2SAT 100
--- NOTE | 2024-10-28 | ECHO_ITS ---
Patient Info Name: Lissa Muñoz Age: 44 years : 1980 Gender: Female Ht: 62 in Wt: 171 lbs BSA: 1.87 m2 HR: 87 bpm BP: 109 / 73 mmHg Heart Rhythm: Sinus Rhythm Technical Quality: Fair Exam Date: 10/28/2024 10:52 AM Exam Location: Echo Lab Patient Status: Inpatient Admit Date: 10/17/2024 Staff Ordering Physician: Ashley Hernandez MD Compensation Consulting Manager: Jean-Claude Callahan RDCS Attending Provider: Ashley Hernandez MD Exam Type: CA echo doppler color flow Study Info Indications - ENTEROCOCCUS FAECIUM BACTEREMIA R/O ENDOCARDITIS Complete two-dimensional, color flow and Doppler transthoracic echocardiogram is performed. Summary 1. Left ventricular chamber dimension is normal. 2. Left ventricular systolic function is normal, estimated at 55-60%. 3. There is mildly increased left ventricular wall thickness. 4. The left ventricular diastolic function is grade I diastolic dysfunction. 5. Right ventricular systolic function is normal. 6. The mitral valve annulus is moderately calcified. 7. There is mild mitral valve regurgitation. 8. There is mild tricuspid valve regurgitation. 9. Study ordered to rule out endocarditis. No vegetations seen on this study, however, cannot rule out vegetation. Consider SANDRA if clinically indicated. Left Ventricle Left ventricular chamber dimension is normal. Left ventricular systolic function is normal, estimated at 55-60%. There is mildly increased left ventricular wall thickness. The left ventricular diastolic function is grade I diastolic dysfunction. Right Ventricle Right ventricular chamber dimension is normal. Right ventricular systolic function is normal. Left Atria Left atrial chamber dimension is normal. Right Atria Right atrial chamber dimension is normal. Atrial Septum Intact interatrial septum visualized by color flow imaging. Aortic Valve The aortic valve is not well visualized. There is no aortic valve regurgitation. Pulmonic Valve The pulmonic valve is not well visualized. Mitral Valve There is mild mitral valve regurgitation. The mitral valve annulus is moderately calcified. Tricuspid Valve There is mild tricuspid valve regurgitation. Pericardium/Pleural There is no pericardial effusion. Inferior Vena Cava Normal inferior vena cava with >50% collapse upon inspiration consistent with normal right atrial pressure, 3 mmHg. Aorta The aortic root size at the sinus of Valsalva is normal. Left Ventricular Outflow Tract Name Value Normal LVOT 2D LVOT Diameter 1.6 cm LVOT Doppler LVOT Peak Gradient 6 mmHg LVOT Mean Gradient 4 mmHg LVOT VTI 26 cm LVOT VTI/AV VTI Ratio 0.9 LVOT Stroke Volume 52 ml LVOT CO 4.3 l/min LVOT CI 2.3 l/min/m2 Pulmonic Valve Name Value Normal RVOT Doppler RVOT Peak Gradient 2 mmHg PV Doppler PV Peak Gradient 4 mmHg Mitral Valve Name Value Normal MV Doppler MV Peak Gradient 5 mmHg MV Mean Gradient 3 mmHg MV Decel [place] 1,172 cm/s2 MV PHT 29 ms MV Area (PHT) 7.6 cm2 4.0-5.0 MV Area (Cont Eq VTI) 1.8 cm2 MV Diastolic Function MV E Peak Velocity 117 cm/s MV A Peak Velocity 79 cm/s MV E/A 1.5 MV Decel Time 100 ms MV Annular TDI MV E/e' (Septal) 8.9 <=8.0 MV E/e' (Lateral) 8.1 <=8.0 MV E/e' (Average) 8.5 Tricuspid Valve Name Value Normal TV Regurgitation Doppler TR Peak Velocity 258 cm/s TR Peak Gradient 27 mmHg Estimated PAP/RSVP RA Pressure 3 mmHg <=5 PA Systolic Pressure 30 mmHg <36 RV Systolic Pressure 30 mmHg <36 Aorta Name Value Normal Ascending Aorta Ao Root Diameter (MM) 2.5 cm Ao Root Diam Index (MM) 1.3 cm/m2 Aortic Valve Name Value Normal AV Doppler AV Peak Velocity 149 cm/s AV Peak Gradient 9 mmHg AV Mean Gradient 6 mmHg AV VTI 30 cm AV Area (Cont Eq VTI) 1.7 cm2 >=3.0 AV Area (Cont Eq Jaswinder) 1.7 cm2 AV Regurgitation 2D LVOT Area 2.0 cm2 Ventricles Name Value Normal LV Dimensions 2D/MM IVS Diastolic Thickness (2D) 0.8 cm 0.6-1.0 LVID Diastole (2D) 4.7 cm 3.8-5.2 LVIW Diastolic Thickness (2D) 0.8 cm 0.6-0.9 LVID Systole (2D) 2.8 cm 2.2-3.5 LVOT Diameter 1.6 cm LV Mass (2D Cubed) 122.20 g 67.00-162.00 LV Mass Index (2D Cubed) 65 g/m2 43-95 Relative Wall Thickness (2D) 0.32 LV Fractional Shortening/Ejection Fraction 2D/MM LV Fractional Shortening (2D) 41 % 27-45 LV EF (2D Teicholz) 71 % 54-74 LV Diastolic Volume (4C MOD) 82 ml LV EF (4C MOD) 42 % LV Diastolic Volume (2C MOD) 95 ml LV EF (2C MOD) 49 % LV Diastolic Volume (BP MOD) 88 ml 46-106 LV Diastolic Volume Index (BP MOD) 47 ml/m2 29-61 LV Systolic Volume (BP MOD) 50 ml 14-42 LV Systolic Volume Index (BP MOD) 27 ml/m2 8-24 LV EF (BP MOD) 44 % 54-74 LV Diastolic Length (4C) 7.0 cm LV Systolic Length (4C) 6.1 cm LV Stroke Volume (4C MOD) 34 ml Atria Name Value Normal LA Dimensions LA Dimension (MM) 3.9 cm 2.7-3.8 LA Volume (4C A-L) 44 ml LA Volume (BP A-L) 55 ml RA Dimensions RA Area (4C) 12.2 cm2 <=18.0 Report Signatures
[2024-10-28] MEDS: oxyCODONE/ACETAMINOPHEN (*CRX) 10-325 MG TABLET 1 TAB PO ×3 (02:28→13:37)
[2024-10-28 02:49] LABS: Hematocrit 31.7 % (37.0-47.0); Hemoglobin 10.7 g/dL (12.0-15.0); Mean Corpuscular HGB Conc 33.8 g/dl (32-36); Mean Corpuscular Hemoglobin 31.9 pg (26-34); Mean Corpuscular Volume 94.6 fl (80-100); Mean Platelet Volume 9.3 fl (7.4-10.4); Platelet Count Result 223 k/mm3 (150-375); Red Blood Count 3.35 M/mm3 (4.2-5.4); Red Cell Distribution Width 13.1 % (11.5-14.5); White Blood Count 15.9 K/mm3 (4.5-10.0)
[2024-10-28 03:00] LABS: Alanine Aminotransferase 21 U/L (6-35); Albumin Level 3.1 g/dL (3.5-5.1); Alkaline Phosphatase 57 U/L (38-126); Anion Gap 6 mmol/L (4-12); Aspartate Amino Transferase 21 U/L (14-36); Bilirubin,Total 0.2 mg/dL (0.2-1.3); Blood Urea Nitrogen 8 mg/dL (7-17); Calcium 8.8 mg/dL (8.4-10.2); Carbon Dioxide 26 mmol/L (22-30); Chloride 107 mmol/L (98-107); Estimated CRCL calculation 115 ml/min; Estimated Glomerular Filt Rate > 60; Glucose 113 mg/dL (65-110); Potassium 3.5 mmol/L (3.4-5.0); Sodium 139 mmol/L (137-145)
[2024-10-28] MEDS: VANCOMYCIN 1,250 MG/NS 250 ML 1,250 MG/250 ML BAG 166.67 MG IVPB ×2 (04:00→10:23)
[2024-10-28] MEDS: HYDROmorphone HCL INJ (*CRX) 1 MG/ML SYR IV PUSH ×2 (05:30→10:21)
[2024-10-28 06:00] VITALS: BP 109/73; PULSE 87; RESP 18; TEMP 36.6; O2SAT 97
[2024-10-28] MEDS: CENTRAL LINE FLUSH 10 ML IV PUSH ×2 (06:00→13:39)
[2024-10-28] MEDS: FLUTICASONE/SALMETEROL 115-21 MCG INHALER 1 PUFF 2 PUFF INHALATION (08:43)
[2024-10-28 09:42] LABS: Vancomycin Trough 16.5 ug/mL (10.0-20.0)
[2024-10-28] MEDS: SODIUM CHLORIDE 0.9% IV 1,000 ML 125 ML IV CONT (10:19)
[2024-10-28] MEDS: ENOXAPARIN 40 MG/0.4 ML SYRINGE SUB-Q (10:20)
[2024-10-28] MEDS: metFORMIN HCL XR 500 MG TAB.SR.24H PO (10:20)
[2024-10-28] MEDS: polyethylene glycoL 3350 17 GM POWD.PACK PO (10:20)
[2024-10-28] MEDS: lisinopriL 10 MG TABLET PO (10:20)
[2024-10-28] MEDS: busPIRone HCL 5 MG TABLET 15 MG PO ×2 (10:20→13:37)
--- NOTE | 2024-10-28 15:16 | PM.DS ---
DS: Admitting Diagnosis Discharge Date 10/28/24 Admitting Diagnosis Left flank pain. DS: Discharge Diagnosis Discharge Diagnosis (1) Kidney stone: Code(s): N20.0 - Calculus of kidney Status: Acute (2) Right ureteral stone: Code(s): N20.1 - Calculus of ureter Status: Acute (3) Left renal stone: Code(s): N20.0 - Calculus of kidney Status: Acute DS: Summary Hospital Course Hospital Course: This is a 44-year-old female with history of kidney stones, chronic left lower back pain, irritable bowel syndrome with diarrhea, hypertension, and polycystic ovarian syndrome who presented to the emergency department via private vehicle for evaluation of left flank pain. The patient provides the following history. She has been having intermittent, colicky left flank pain for several weeks and was seen in the emergency department at [facility] on 09/09/2024 and here at [facility] on 09/10/2024 for evaluation. Imaging showed nonobstructing nephrolithiasis and she was discharged to follow-up with urology. Her pain had improved up until yesterday she once again developed colicky pain and in the left lower back radiating to the flank. The pain is similar to when she has had kidney stones and is not similar to her chronic left low back pain. She is on hydrocodone for her chronic back pain and that has not been helping very much. Associated symptoms include nausea, vomiting, and temperature up to 103? F last evening. She denies headache, neck ache, sinus congestion, dysuria, and hematuria. In the ED: She was afebrile on arrival with stable vital signs. Labs were significant for a WBC count of 23.8, hemoglobin 16.5, sodium 136, creatinine 0.70, AST 39, ALT 47. Urinalysis was positive for 3 to 5 RBC and many squamous cells. CT of the abdomen and pelvis showed no acute abnormality and a 14 mm left renal stone. She received morphine and ketorolac with continued pain. Urology was consulted by the ED physician they state there is no indication for intervention as the stone is in the kidney itself. Unfortunately her pain continues and she is being admitted in this setting for pain control. Patient initially had right ureteral stent placed however her pain was unrelieved and repeat CT AP showed new left ureteral stones and upwards displaced of right sided stone. Patient underwent right ureteral stone extraction with stent rerieval, however left stone was deferred due to bacteremia. Initially, urine culture was negative, however, blood culture was positive for Enterococcus faecium sensitive to Vancomycin. NO murmur on auscultation and no stigmata of endocarditis, ECHO did not show any vegetations. Given that patient did not show any clinical signs of Endocarditis, and repeat blood culture is negative, she was discharged to complete 14 days total of abx. Urology planning to complete ureteroscopy outpatien after infection control. Patient will continue to follow up with urology as instructed F/u with PCP in 3-5 days. Assessment and Plan (1) Right ureteral stone: Code(s): N20.1 - Calculus of ureter Status: Acute (2) UTI (urinary tract infection): Code(s): N39.0 - Urinary tract infection, site not specified Status: Acute (3) Hypertension: Code(s): I10 - Essential (primary) hypertension Status: Acute Plan 10/26: Ordered CT scan abdomen pelvis. PICC line for vancomycin 2 weeks. 10/25: Discontinued Merrem and will cont Vancomycin total of 2 weeks. If her WBC trends down ,possibly discharge with PICC line for Vancomycin 10/24: Preliminary blood culture shows no growth. Blood culture from 10/21 shows Enterococcus faecium resistant to ampicillin and sensitive to vancomycin, streptomycin and gentamicin. Will continue vancomycin for 2 weeks. 10/23: WBC is increasing but also patient has spikes of fever (105). Continue meropenem, vancomycin and doxycycline. Pending blood culture and urine culture 10/22:Patient WBC has been increased from 24.5 to 40.7 in spite of escalating the antibiotic yesterday from ceftriaxone to cefepime. Patient also febrile. Yesterday we obtained blood culture. Today ordered abdomen/pelvis CT, urinalysis and urine culture. Added doxycycline. In according to the blood culture culture escalated the antibiotic from cefepime to meropenem. Even though nasal MRSA was negative added vancomycin to cover Enterococcus. Urology evaluated the patient and reports today CT shows 5 nonobstructing stones in the left kidney up to 12mm and a 2mm nonobstructing stone in the right kidney. No bladder abnormality or hydronephrosis noted. Urology planning outpatient management and signed off the case. Right ureteral stone with hydronephrosis Bilateral Kidney stones now s/p cystoscopy, right retrograde pyelogram, right ureteroscopy, stone extraction, stent removal on 10/20/2024 12: repeat CT 5 nonobstructing stones in the left kidney up to 12mm and a 2mm nonobstructing stone in the right kidney. No bladder abnormality or hydronephrosis noted. Urology signed of Possible UTI Worsening leukocytosis likley from ureteral stone Patient reported dysuria with suprapubic pain. UA showed positive leukocyte esterase and nitrates Urine culture negative, blood culture shows Gram-positive cocci in chains Status post cefepime Ordered meropenem and doxycycline Repeated blood culture, urinalysis, urine culture monitor leukocytosis Constipation Continue Miralax CT AP showed constipation Hypertension Titrate medications with clinical course. Anxiety Continue medications. PCOS Hold metformin start discharge. IBD Monitor. DVT prophylaxis on Sq Lovenox Subjective Date/time seen: 10/27/24 13:30 Interval history: Patient was about to get discharged with vancomycin 17 50 mg IV q.12 hours until 11 06 but was not able to arrange home healthcare to set up the process. Patient will be discharged tomorrow. Denies any complaints other than the flank pain due to nephrolithiasis. Time Spent with Patient Time attestation: Total time spent providing and/or coordinating discharge services: DS: Data Data Completed and Pending Completed studies during hospitalization: Pending at discharge 10/20/24 12:31 Surgical [PTH] Routine Labs on day of discharge: Labs from last 24 hours 10/28/24 10/28/24 02:34 02:30 WBC 15.9 H RBC 3.35 L Hgb 10.7 L Hct 31.7 L MCV 94.6 MCH 31.9 MCHC 33.8 RDW 13.1 Plt Count 223 MPV 9.3 Sodium 139 Potassium 3.5 Chloride 107 Carbon Dioxide 26 Anion Gap 6 BUN 8 Creatinine 0.50 L Estim Creat Clear Calc 115 Estimated GFR > 60 Glucose 113 H Calcium 8.8 Total Bilirubin 0.2 AST 21 ALT 21 Alkaline Phosphatase 57 Total Protein 6.0 L Albumin 3.1 L Vancomycin Trough 16.5 Preliminary micro results at discharge 10/23/24 07:17 Blood Culture - Preliminary Blood 10/23/24 07:09 Blood Culture - Preliminary Blood Discharge Plan Discharge Attending physician on discharge: Ryan Tay Consulting providers: Donald,Etai Discharging Clinician: Ryan Tay Anticipated Discharge Date/Time: 10/28/24 15:13 Patient Disposition: Home, Self-Care Activity: as tolerated Diet: regular Discharge Instructions: Patient had a positive blood culture Enterococcus faecium on 10/21. Patient needs to continue vancomycin 17 50 mg q.12 hours until 11/06/2024. Patient was set up with home health care for antibiotic guidance. Patient needs follow-up with PCP, Infectious Disease and Urology within a week upon discharge. Per Care Coordination: [facility] ([phone]) is arranged for IV vancomycin q12 until 11/06/24. [facility] RN ([phone]) is arranged and will see you on Saturday 12/30, they will call you regarding first visit. Patient Instructions: Antibiotic Form, How to Stop Smoking (GEN), How to Care for Your PICC (Peripherally Inserted Central Catheter) (DC), PICC (Peripherally Inserted Central Catheter) in Children (DC), How to Flush Your PICC (Peripherally Inserted Central Catheter) (DC), PICC (Peripherally Inserted Central Catheter) (DC) Patient Language: Citizen Of [place] Stand Alone Forms: General Discharge Information, Work/School Release IP Follow-up/Referrals: Eren Bennett MD [Physician] - 1 Week UNKNOWN,DOCTOR [Primary Care Provider] - 1 Week (Patient had a positive blood culture Enterococcus faecium on 10/21. Patient needs to continue vancomycin 17 50 mg q.12 hours until 11/06/2024. Patient was set up with home health care for antibiotic guidance. Patient needs follow-up with PCP, Infectious Disease and Urology within a week upon discharge.) Discharge Medications: New tamsulosin 0.4 mg Capsule 0.4 mg PO HS Qty: 25 0RF phenazopyridine 100 mg Tablet 100 mg PO TID PRN (Reason: Dysuria) Qty: 20 0RF vancomycin 1.75 gram recon soln 1.75 g IV Q24H Rx Instructions: Patient had a positive blood culture Enterococcus faecium on 10/21. Patient needs to continue vancomycin 1750 mg q.12 hours until 11/06/2024. Patient was set up with home health care for antibiotic guidance. oxycodone-acetaminophen 5-325 mg Tablet 1 tablet PO Q4H PRN (Reason: Pain Rated 4-6) 5 Days Qty: 12 0RF Continued fluticasone propion-salmeterol 250-50 mcg/dose blister with device 1 ea INHALATION BID dicyclomine 20 mg tablet 20 mg PO TID PRN (Reason: helps stomach) lisinopril 10 mg tablet 10 mg PO DAILY metformin 500 mg tablet extended release 24 hr 500 mg PO BID Viberzi 100 mg tablet 100 mg PO BID buspirone 15 mg tablet 15 mg PO TID hydrocodone-acetaminophen 10-325 mg tablet 1 tablet PO Q6H PRN (Reason: Pain) Qty: 20 0RF tamsulosin [Flomax] 0.4 mg capsule 0.4 mg PO DAILY Qty: 10 0RF Date of admission: 10/17/24 13:06 Primary Care Provider: UNKNOWN,DOCTOR Admitting Provider: Ashley Hernandez Attending physician on admission: Ashley Hernandez Condition: Stable
== END 2024-10-28 13:23 | disposition home or self-care (01) | DRG 660 ==
LOC: ANHED 08:07 → ANH3MEDSUR 09:04
PROVIDERS: Emergency Medicine; General Practice; Nurse Practitioner; Urology; Admitting Provider Internal Medicine; Emergency Provider Emergency Medicine; Visit Provider Internal Medicine
PROC: BT1DYZZ Fluoroscopy of Right Kidney, Ureter and Bladder using Other Contrast (ICD-10-PCS; CPT 52352; principal; 2024-10-15 13:30)
PROC: 0TP98DZ Removal of Intraluminal Device from Ureter, Via Natural or Artificial Opening Endoscopic (ICD-10-PCS; CPT 52352; principal; 2024-10-20 13:30)
DX: N13.6 Pyonephrosis (principal); N20.2 Calculus of kidney with calculus of ureter; T83.84XA Pain due to genitourinary prosthetic devices, implants and grafts, initial encounter; R78.81 Bacteremia; I10 Essential (primary) hypertension; J45.909 Unspecified asthma, uncomplicated; E28.2 Polycystic ovarian syndrome; K58.0 Irritable bowel syndrome with diarrhea; M51.17 Intervertebral disc disorders with radiculopathy, lumbosacral region; G89.29 Other chronic pain; F41.9 Anxiety disorder, unspecified; F17.210 Nicotine dependence, cigarettes, uncomplicated; Z20.822 Contact with and (suspected) exposure to COVID-19; Z98.1 Arthrodesis status; Z87.442 Personal history of urinary calculi
CPT/HCPCS: 36415; 36569; 71045; 71250; 74018; 74176; 74177; 74420; 80053; 80202; 81001; 81025; 82365; 83605; 83690; 83735; 85025; 85027; 87040; 87086; 87088; 87181; 87637; 87641; 88300; 93306; 94640; 96361; 96365; 96375; 96376; 99285; A9270; C1758; C1769; C2617; G0378; J0692; J0696; J1100; J1171; J1650; J1741; J1885; J2003; J2060; J2185; J2250; J2270; J2371; J2405; J2704; J3010; J3370; J7030; J7120; Q9966; Q9967

== ENCOUNTER 2024-11-03 10:42 | Outpatient (NON) | payer BC, SELFPAY ==
[2024-11-03 11:44] LABS: Hematocrit 44.1 % (37.0-47.0); Hemoglobin 14.8 g/dL (12.0-15.0); Mean Corpuscular HGB Conc 33.6 g/dl (32-36); Mean Corpuscular Hemoglobin 31.6 pg (26-34); Mean Corpuscular Volume 94.2 fl (80-100); Mean Platelet Volume 9.4 fl (7.4-10.4); Platelet Count Result 473 k/mm3 (150-375); Red Blood Count 4.68 M/mm3 (4.2-5.4); Red Cell Distribution Width 13.5 % (11.5-14.5); White Blood Count 22.7 K/mm3 (4.5-10.0)
[2024-11-03 12:06] LABS: Alanine Aminotransferase 29 U/L (6-35); Albumin Level 4.5 g/dL (3.5-5.1); Alkaline Phosphatase 83 U/L (38-126); Anion Gap 8 mmol/L (4-12); Aspartate Amino Transferase 26 U/L (14-36); Bilirubin,Total 0.4 mg/dL (0.2-1.3); Blood Urea Nitrogen 8 mg/dL (7-17); Calcium 9.7 mg/dL (8.4-10.2); Carbon Dioxide 25 mmol/L (22-30); Chloride 103 mmol/L (98-107); Estimated Glomerular Filt Rate > 60; Glucose 134 mg/dL (65-110); Potassium 4.2 mmol/L (3.4-5.0); Sodium 136 mmol/L (137-145)
== END 2024-11-03 10:43 | disposition home or self-care (01) ==
LOC: HOME HLTH 10:43
PROVIDERS: Visit Provider Family Medicine Geriatric Medicine
DX: N20.1 Calculus of ureter (principal); N39.0 Urinary tract infection, site not specified; I10 Essential (primary) hypertension
CPT/HCPCS: 80053; 80202; 85027

== ENCOUNTER 2024-11-03 11:45 | Emergency (ER) | payer BC, SELFPAY ==
[2024-11-03] VITALS (8 sets, daily range): BP systolic 142–169; BP diastolic 86–98; PULSE 87–92; RESP 16–17; TEMP 37.1; O2SAT 98–100
--- NOTE | ~2024-11-03 | US_ITS ---
EXAMINATION: US pelvic complete w TV DATE: 11/03/2024 17:24 INDICATION: Left pelvic pain. TECHNIQUE: Multiple transabdominal and transvaginal sonographic images of the pelvis were obtained. COMPARISON: CT abdomen pelvis/ FINDINGS: TRANSABDOMINAL ULTRASOUND: The uterus measures 7.8 x 3.6 x 4.4 cm. There is no free fluid in the pelvis. TRANSVAGINAL ULTRASOUND: The endometrial complex measures 1 mm in thickness. There is a nabothian cysts in the cervix. The rig ht ovary measures 3.7 x 2.5 x 4.1 cm. The left ovary measures 7.5 x 4.1 x 3.2 cm. There is a 4.1 cm c yst in left ovary. There is normal vascular flow in the ovaries. IMPRESSION: 1. 4.1 cm cyst in left ovary, likely a follicular cyst. Reviewed, dictated and finalized at location A. NLESS STEEL FINISHER
--- NOTE | ~2024-11-03 | CT_ITS ---
CT abdomen pelvis wo con Ordering provider: Pranav Golden MD History: 44 years Female with . LLQ/Flank pain . Comparison: October 26, 2024 Technique: CT abdomen and pelvis without IV and without oral contrast. Automated exposure control and iterative reconstruction technique were employed. The dose-length product was 488.00 mGy-cm. Findings: VISUALIZED LOWER CHEST: Normal. UPPER ABDOMINAL ORGANS: Liver: Normal. Gallbladder: Status post cholecystectomy. Spleen: Normal. Stomach/duodenum: Normal. Pancreas: Normal. Adrenals: Normal. Kidneys: Tiny Stone seen in the right kidney lower pole. Large stone seen in the left kidney lower po le measuring 1.4 cm. Tiny stones also seen in the left mid and upper pole. Mild left hydronephrosis w ith no ureteric stones. PELVIC ORGANS: The bladder is normal. Left ovarian cyst measuring 4.1 cm. BOWEL AND MESENTERY: Colon: No evidence of diverticulitis. The appendix is not demonstrated. Small Bowel: Normal. No obstruction. Peritoneum/mesentery: No free air or free fluid. No mesenteric lymphadenopathy. RETROPERITONEUM: Mild atheromatous disease of the abdominal aorta. No retroperitoneal lymphadenopat hy. Small para-aortic lymph nodes are seen with the largest measures 1.1 cm. MUSCULOSKELETAL: Superficial soft tissues: The superficial soft tissues are normal. Bones: Age appropriate degenerative changes of the spine. IMPRESSION: 1. Bilateral kidney stones with mild left hydronephrotic changes. 2. No evidence of appendicitis, diverticulitis or intestinal obstruction. 3. Left ovarian cyst. Reviewed, dictated and finalized at location A. ATION COURSES SALES REPRESENTATIVE
--- NOTE | ~2024-11-03 | XR_ITS ---
XR chest PICC line Ordering provider: Pranav Golden MD History: 44 years Female with . picc line okay to use . Comparison: October 23, 2024 FINDINGS: MEDIASTINUM: The cardiac silhouette is not enlarged. Left PICC line with the tip overlying superior v al cava. LUNGS: No infiltrates, effusions or pneumothorax. OTHER: No free air under the diaphragm. IMPRESSION: No acute cardiopulmonary pathology. Reviewed, dictated and finalized at location A. GAS ANALYST
--- NOTE | 2024-11-03 12:10 | PC.NURSE ---
pt has a double lumen picc line in left upper arm, picc line flushes adequately but does not pull back and no blood return.
[2024-11-03 12:45] LABS: BEDSIDEPREGUCG Negative (Negative)
--- NOTE | 2024-11-03 13:10 | ED.GENADULT ---
HPI - General Adult General Chief complaint: Back Pain/Injury Stated complaint: left flank pain Time Seen by Provider: 11/03/24 12:05 History of Present Illness HPI narrative: Patient is a 44-year-old female who presents ER with left lower quadrant abdominal pain. Ongoing over last day. Recently released from the hospital after having complications from a septic stone. She has a PICC line and receives vancomycin. No fevers or chills or sweats. Currently on her menstrual cycle and having vaginal bleeding. No urinary symptoms. Related Data Home Medications ?Medication ?Instructions ?Recorded ?Confirmed ?Last Taken ?Type dicyclomine 20 mg tablet 20 mg PO TID PRN helps stomach 02/14/24 10/15/24 03/07/24 07:30 History eluxadoline 100 mg tablet (Viberzi) 100 mg PO BID 02/14/24 10/15/24 10/14/24 History fluticasone 250 mcg-salmeterol 50 1 ea inhalation BID 02/14/24 10/15/24 10/14/24 History mcg/dose blistr powdr for inhalation lisinopril 10 mg tablet 10 mg PO DAILY 02/14/24 10/15/24 10/14/24 History metformin 500 mg tablet,extended 500 mg PO BID 02/14/24 10/15/24 10/14/24 History release 24 hr buspirone 15 mg tablet 15 mg PO TID 09/26/24 10/15/24 10/14/24 History Allergies Allergy/AdvReac Type Severity Reaction Status Date / Time No Known Allergies Allergy Verified 11/03/24 11:46 Review of Systems Review of Systems: All systems reviewed & are unremarkable except as noted in HPI and below Constitutional: Constitutional: Reports no additional constitutional complaints Cardiovascular: Cardiovascular: Reports no additional cardiovascular complaints Respiratory: Respiratory: Reports no additional respiratory complaints Gastrointestinal: Gastrointestinal: Reports abdominal pain, Denies diarrhea, Reports nausea and Denies vomiting Genitourinary: Genitourinary: Reports no additional female genitourinary complaints Musculoskeletal: Musculoskeletal: Reports no additional musculoskeletal complaints [facility] Past Medical History Medical History (Updated 11/03/24 @ 16:57 by Pranav Golden MD) Leukocytosis Chronic elevation with hematology consult in past. 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 Surgical History Surgical History History of appendectomy History of cholecystectomy History of cervical spinal surgery (03/08/23) anterior cervical discectomy and fusion Family History Family History Father Hypertension Patient's father is in good health Cerebrovascular accident Family history of heart disease in male family member before age 55 Mother Patient's mother is in good health Family history of diabetes mellitus in first degree relative Sibling Family history of diabetes mellitus in first degree relative Social History Social History Social History: Surrogate medical decision maker: Chinmay Muñoz, spouse ([phone]). Code status: Full code. Smoking packs per day: 1 Smoking cigarettes per day: 20.0 Years smoked: 30 Smoking pack-years: 30.00 Smoking status: Current every day smoker Tobacco type: cigarettes Second hand tobacco smoke exposure: Yes Alcohol intake: never Alcohol use details: rarely drinks, a couple time a month Substance use: current Substance use type: marijuana Last use: Marijuana 10/14/24 Do You Feel Safe in your Home?: Yes Lack of Transportation: No Lack of Food: Never True Current Housing: I Have Housing Concerned About Future Housing: No Difficulty Paying Gas/Electric Bills: No Difficulty Paying for Meds: No Currently Unemployed: No Education: Grade School Difficulty w/ Childcare or Family Care: No Living arrangements: with family Additional living arrangements comments: Lives with father and . 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 Spiritual care concerns: No Agree to blood products: Yes Exam Narrative: GENERAL: Well-appearing, well-nourished, and in no acute distress. HEAD: Normocephalic, atraumatic. ENT: Mucous membranes moist. NECK: Supple. CHEST: Clear to auscultation. No respiratory distress. HEART: Regular rate and rhythm. Normal peripheral pulses. ABDOMEN: Soft, tender palpation left lower quadrant with voluntary guarding, nondistended. No CVA tenderness. EXTREMITIES: Normal range of motion. No edema. SKIN: Warm, dry, no rash. NEURO: Alert and oriented x3. PSYCH: Normal mood and affect. Course Course Emergency Course: Patient informed of lab and imaging results. Discussed case with patient's PCP reports she has chronically elevated white blood cell count. Will discharge home and she can continue her home antibiotics. Patient does have ovarian cyst without torsion. She is on her menstrual cycle. Vital Signs Vital signs: Vital Signs Temperature 98.7 F 11/03/24 11:45 Pulse Rate 92 11/03/24 11:45 Respiratory Rate 16 11/03/24 11:45 Blood Pressure 169/87 H 11/03/24 11:45 Pulse Oximetry 100 11/03/24 11:45 Oxygen Delivery Room Air 11/03/24 11:45 Temperature 98.8 F 11/03/24 12:09 Pulse Rate 87 11/03/24 12:09 Respiratory Rate 17 11/03/24 12:09 Blood Pressure 142/86 H 11/03/24 13:38 Pulse Oximetry 98 11/03/24 13:45 Oxygen Delivery Room Air 11/03/24 11:45 Medical Decision Making Vital Signs Vital Signs: Vital Signs Temperature 98.7 F 11/03/24 11:45 Pulse Rate 92 11/03/24 11:45 Respiratory Rate 16 11/03/24 11:45 Blood Pressure 169/87 H 11/03/24 11:45 Pulse Oximetry 100 11/03/24 11:45 Oxygen Delivery Room Air 11/03/24 11:45 Temperature 98.8 F 11/03/24 12:09 Pulse Rate 87 11/03/24 12:09 Respiratory Rate 17 11/03/24 12:09 Blood Pressure 142/86 H 11/03/24 13:38 Pulse Oximetry 98 11/03/24 13:45 Oxygen Delivery Room Air 11/03/24 11:45 Lab Data 11/03/24 13:11 11/03/24 13:11 Labs: Lab Results 11/03/24 11/03/24 Range/Units 12:43 13:11 WBC 22.4 H (4.5-10.0) K/mm3 RBC 4.72 (4.2-5.4) M/mm3 Hgb 14.8 (12.0-15.0) g/dL Hct 44.3 (37.0-47.0) % MCV 93.9 (80-100) fl MCH 31.4 (26-34) pg MCHC 33.4 (32-36) g/dl RDW 13.2 (11.5-14.5) % Plt Count 426 H (150-375) k/mm3 MPV 8.7 (7.4-10.4) fl Immature Gran % (Auto) 1.1 H (0-0.5) % Neut % (Auto) 78.9 H (45.5-73.1) % Lymph % (Auto) 13.6 L (18.3-44.2) % [place] % (Auto) 3.8 (2.6-8.5) % Eos % (Auto) 1.8 (0-4.4) % Baso % (Auto) 0.8 (0.2-1.2) % Lymph # (Auto) 3.04 (0.9-3.2) K/mm3 [place] # (Auto) 0.9 H (0.1-0.6) K/mm3 Eos # (Auto) 0.4 H (0-0.3) K/mm3 Baso # (Auto) 0.2 H (0.0-0.1) K/mm3 Abs Immat Gran (auto) 0.24 H (0.00-0.031) K/mm3 Absolute Neuts (auto) 17.7 H (1.3-6.7) K/mm3 Absolute Nucleated RBC 0.000 (0.0-0.012) K/mm3 Nucleated RBC % 0.0 (0.0-0.2) % Sodium 137 (137-145) mmol/L Potassium 4.1 (3.4-5.0) mmol/L Chloride 105 (98-107) mmol/L Carbon Dioxide 26 (22-30) mmol/L Anion Gap 6 (4-12) mmol/L BUN 7 (7-17) mg/dL Creatinine 0.60 L (0.7-1.0) mg/dL Estim Creat Clear Calc 93 ml/min Estimated GFR > 60 (59 - ) Glucose 115 H (65-110) mg/dL Calcium 9.7 (8.4-10.2) mg/dL Total Bilirubin 0.4 (0.2-1.3) mg/dL AST 26 (14-36) U/L ALT 27 (6-35) U/L Alkaline Phosphatase 83 (38-126) U/L Total Protein 8.0 (6.3-8.2) g/dL Albumin 4.3 (3.5-5.1) g/dL Urine Color Yellow (Yellow) Urine Appearance Clear (Clear) Urine pH 6.5 (5.0-9.0) Ur Specific [place] 1.006 (1.001-1.035) Urine Protein Negative (Negative) mg/dL Urine Glucose (UA) Negative (Negative) mg/dL Urine Ketones Negative (Negative) mg/dL Ur Blood (Man) Negative (Negative) Urine Nitrate Negative (Negative) Urine Bilirubin Negative (Negative) Urine Urobilinogen 0.2 (<2.0) mg/dL Leukocyte Esterase Rfl Negative (Negative) JOY/UL POC Urine HCG, Qual Negative (Negative) Imaging Data Radiologist's impression: ITS Impressions Chest X-Ray 11/03/24 13:15 IMPRESSION: No acute cardiopulmonary pathology. Abdomen/Pelvis CT 11/03/24 13:18 IMPRESSION: 1. Bilateral kidney stones with mild left hydronephrotic changes. 2. No evidence of appendicitis, diverticulitis or intestinal obstruction. 3. Left ovarian cyst. Discharge Plan Discharge Clinical Impression: Ovarian cyst Patient Disposition: Home, Self-Care Condition: Stable Additional Instructions: Return to the emergency department if you develop severe abdominal pain, severe nausea and vomiting to the point where you are unable to keep down fluids, if you develop chest pain or difficulty breathing, blood in your stool, dizziness or fainting, or if you develop any other new or concerning symptoms as these could be signs of more serious medical illness. Try to stay well hydrated. Patient Language: Thai Prescriptions: No Action fluticasone propion-salmeterol 250-50 mcg/dose blister with device 1 ea INHALATION BID dicyclomine 20 mg tablet 20 mg PO TID PRN (Reason: helps stomach) lisinopril 10 mg tablet 10 mg PO DAILY metformin 500 mg tablet extended release 24 hr 500 mg PO BID Viberzi 100 mg tablet 100 mg PO BID buspirone 15 mg tablet 15 mg PO TID hydrocodone-acetaminophen 10-325 mg tablet 1 tablet PO Q6H PRN (Reason: Pain) Qty: 20 0RF tamsulosin [Flomax] 0.4 mg capsule 0.4 mg PO DAILY Qty: 10 0RF tamsulosin 0.4 mg Capsule 0.4 mg PO HS Qty: 25 0RF phenazopyridine 100 mg Tablet 100 mg PO TID PRN (Reason: Dysuria) Qty: 20 0RF vancomycin 1.75 gram recon soln 1.75 g IV Q24H Rx Instructions: Patient had a positive blood culture Enterococcus faecium on 10/21. Patient needs to continue vancomycin 1750 mg q.12 hours until 11/06/2024. Patient was set up with home health care for antibiotic guidance. oxycodone-acetaminophen 5-325 mg Tablet 1 tablet PO Q4H PRN (Reason: Pain Rated 4-6) 5 Days Qty: 12 0RF Follow-up/Referrals: Judson,Cody Humphrey MD [Non-Staff] - 1 Week UNKNOWN,DOCTOR [Primary Care Provider] -
[2024-11-03 13:17] LABS: Basophils Absolute Auto 0.2 K/mm3 (0.0-0.1); Basophils Percent Auto 0.8 % (0.2-1.2); Eosinophils Absolute Auto 0.4 K/mm3 (0-0.3); Eosinophils Percent Auto 1.8 % (0-4.4); Hematocrit 44.3 % (37.0-47.0); Hemoglobin 14.8 g/dL (12.0-15.0); Immature Granulocyte Absolute 0.24 K/mm3 (0.00-0.031); Immature Granulocyte Percent A 1.1 % (0-0.5); Lymphocytes Absolute Auto 3.04 K/mm3 (0.9-3.2); Lymphocytes Percent Auto 13.6 % (18.3-44.2); Mean Corpuscular HGB Conc 33.4 g/dl (32-36); Mean Corpuscular Hemoglobin 31.4 pg (26-34); Mean Corpuscular Volume 93.9 fl (80-100); Mean Platelet Volume 8.7 fl (7.4-10.4); Monocytes Absolute Auto 0.9 K/mm3 (0.1-0.6); Monocytes Percent Auto 3.8 % (2.6-8.5); Neutrophils Absolute Auto 17.7 K/mm3 (1.3-6.7); Neutrophils Percent Auto 78.9 % (45.5-73.1); Platelet Count Result 426 k/mm3 (150-375); Red Blood Count 4.72 M/mm3 (4.2-5.4); Red Cell Distribution Width 13.2 % (11.5-14.5); White Blood Count 22.4 K/mm3 (4.5-10.0)
[2024-11-03 13:19] LABS: Add Urine Microscopic? NO; Appearance Urine Clear (Clear); Bilirubin Urine Negative (Negative); Blood Urine Negative (Negative); Color Urine Yellow (Yellow); Glucose Urine UA Negative (Negative); Ketones Urine Negative (Negative); Leukocyte Esterase Ur Negative LEU/UL (Negative); Nitrate Urine Negative (Negative); Protein Urine Negative (Negative); Specific Grav Ur 1.006 (1.001-1.035); Urobilinogen Urine 0.2 mg/dL (<2.0); pH Urine 6.5 (5.0-9.0)
[2024-11-03] MEDS: SODIUM CHLORIDE 0.9% IV 1,000 ML 999 ML IV CONT (13:37)
[2024-11-03] MEDS: MORPHINE SULFATE (*CRX) 4 MG/ML INJ IV PUSH (13:37)
[2024-11-03] MEDS: ONDANSETRON INJ 4 MG/2 ML VIAL IV PUSH (13:37)
[2024-11-03 13:38] LABS: Alanine Aminotransferase 27 U/L (6-35); Albumin Level 4.3 g/dL (3.5-5.1); Alkaline Phosphatase 83 U/L (38-126); Anion Gap 6 mmol/L (4-12); Aspartate Amino Transferase 26 U/L (14-36); Bilirubin,Total 0.4 mg/dL (0.2-1.3); Blood Urea Nitrogen 7 mg/dL (7-17); Calcium 9.7 mg/dL (8.4-10.2); Carbon Dioxide 26 mmol/L (22-30); Chloride 105 mmol/L (98-107); Estimated CRCL calculation 93 ml/min; Estimated Glomerular Filt Rate > 60; Glucose 115 mg/dL (65-110); Potassium 4.1 mmol/L (3.4-5.0); Sodium 137 mmol/L (137-145)
== END 2024-11-03 17:10 | disposition home or self-care (01) ==
PROVIDERS: Emergency Provider Emergency Medicine
DX: E28.2 Polycystic ovarian syndrome (principal); I10 Essential (primary) hypertension; J45.909 Unspecified asthma, uncomplicated; E78.5 Hyperlipidemia, unspecified; K58.0 Irritable bowel syndrome with diarrhea; F17.210 Nicotine dependence, cigarettes, uncomplicated; Z98.1 Arthrodesis status; Z95.828 Presence of other vascular implants and grafts; Z90.49 Acquired absence of other specified parts of digestive tract; Z79.84 Long term (current) use of oral hypoglycemic drugs; Z79.899 Other long term (current) drug therapy; N13.2 Hydronephrosis with renal and ureteral calculous obstruction
CPT/HCPCS: 36415; 74176; 76830; 76856; 80053; 80202; 81003; 81025; 85025; 85027; 96361; 96374; 96375; 99284; J2270; J2405; J7030

== ENCOUNTER 2024-12-08 21:01 | Emergency (ER) | payer BC, SELFPAY ==
--- NOTE | ~2024-12-08 | CT_ITS ---
CT of the Abdomen and Pelvis: Indication: Left flank pain Technique: 2.5 mm axial scans were obtained through the abdomen and pelvis following intravenous adm inistration of 100 cc of Omnipaque 350. Dose reduction technique was used on this scan by utilizing a utomated exposure control and iterative reconstruction technique. The dose-length product (DLP) was 5 65.89 mGy-cm. COMPARISON: 11/03/2024 Findings: Scans through the lung bases are unremarkable. The liver, spleen, pancreas, adrenals and right kidney are within normal limits. 15 mm nonobstructing left lower pole renal stone present. Cholecystectomy clips are present. No evidence of aortic aneury sm. No lymphadenopathy. No bowel obstruction or bowel wall thickening. There is no evidence to suggest acute appendicitis. Images through the pelvis were performed. Small bilateral ovarian cysts are present. No other adnexal mass seen. Urinary bladder unremarkable. No ascites. Impression: Nonobstructing 15 mm left lower pole renal stone. Small bilateral ovarian cysts. Reviewed, dictated and finalized at [facility]. 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 Small bilateral ovarian cysts.
[2024-12-08 21:06] VITALS: BP 137/92; PULSE 87; RESP 18; TEMP 36.1; O2SAT 100
--- NOTE | 2024-12-08 22:51 | ED_ITS ---
HPI - Abdominal Pain General Chief Complaint: Abdominal Pain Stated Complaint: flank pain Time Seen by Provider: 12/08/24 22:46 Source: patient Mode of arrival: ambulatory Limitations: no limitations History of Present Illness HPI narrative: This is a 44-year-old female who presents to the ED for chief complaint of left flank pain starting yesterday. Patient reports that she has had kidney stones in the past and this feels similar. States the of the last time she was here she was admitted in September of 2024 for infected kidney stone. States that she has felt nauseous but has not had any vomiting yet. Denies fevers, chills, diarrhea. Related Data Home Medications ?Medication ?Instructions ?Recorded ?Confirmed ?Last Taken ?Type dicyclomine 20 mg tablet 20 mg PO TID PRN helps stomach 02/14/24 10/15/24 03/07/24 07:30 History eluxadoline 100 mg tablet (Viberzi) 100 mg PO BID 02/14/24 10/15/24 10/14/24 History fluticasone 250 mcg-salmeterol 50 1 ea inhalation BID 02/14/24 10/15/24 10/14/24 History mcg/dose blistr powdr for inhalation lisinopril 10 mg tablet 10 mg PO DAILY 02/14/24 10/15/24 10/14/24 History metformin 500 mg tablet,extended 500 mg PO BID 02/14/24 10/15/24 10/14/24 History release 24 hr buspirone 15 mg tablet 15 mg PO TID 09/26/24 10/15/24 10/14/24 History Allergies Allergy/AdvReac Type Severity Reaction Status Date / Time No Known Allergies Allergy Verified 12/08/24 21:02 Review of Systems 2 Review of Systems: All systems as dictated in HPI [facility] Past Medical History Medical History (Updated 12/09/24 @ 01:34 by Maximus Sheehan PA-C) Leukocytosis Chronic elevation with hematology consult in past. 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 Surgical History Surgical History History of appendectomy History of cholecystectomy History of cervical spinal surgery (03/08/23) anterior cervical discectomy and fusion Family History Family History Father Hypertension Patient's father is in good health Cerebrovascular accident Family history of heart disease in male family member before age 55 Mother Patient's mother is in good health Family history of diabetes mellitus in first degree relative Sibling Family history of diabetes mellitus in first degree relative Social History Social History Social History: Surrogate medical decision maker: Chinmay Muñoz, spouse ([phone]). Code status: Full code. Smoking packs per day: 1 Smoking cigarettes per day: 20.0 Years smoked: 30 Smoking pack-years: 30.00 Smoking status: Current every day smoker Tobacco type: cigarettes Second hand tobacco smoke exposure: Yes Alcohol intake: never Alcohol use details: rarely drinks, a couple time a month Substance use: current Substance use type: marijuana Last use: Marijuana 10/14/24 Do You Feel Safe in your Home?: Yes Lack of Transportation: No Lack of Food: Never True Current Housing: I Have Housing Concerned About Future Housing: No Difficulty Paying Gas/Electric Bills: No Difficulty Paying for Meds: No Currently Unemployed: No Education: Grade School Difficulty w/ Childcare or Family Care: No Living arrangements: with family Additional living arrangements comments: Lives with father and . 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 Spiritual care concerns: No Agree to blood products: Yes Exam 2 Narrative: GENERAL: Well-appearing, well-nourished, and in no acute distress. HEAD: Normocephalic, atraumatic. EYES: PERRLA and EOMI. ENT: Nares clear, no rhinorrhea or epistaxis. Mucous membranes moist. Oropharynx without tonsillar hypertrophy exudate or other lesions. NECK: Supple. No adenopathy or masses. CHEST: No respiratory distress. Clear to auscultation. No wheezes rales or rhonchi HEART: Regular rate and rhythm. No murmur heard. Normal peripheral pulses. ABDOMEN: Left flank tenderness. Soft, otherwise nontender, nondistended, normal active bowel sounds. MSK: Normal range of motion. No edema. SKIN: Warm, dry, no rash. NEURO: Alert and oriented x4. No focal deficits. PSYCH: Normal mood and affect. Course Vital Signs Vital signs: Vital Signs Temperature 97.0 F L 12/08/24 21:06 Pulse Rate 87 12/08/24 21:06 Respiratory Rate 18 12/08/24 21:06 Blood Pressure 137/92 H 12/08/24 21:06 Pulse Oximetry 100 12/08/24 21:06 Temperature 97.0 F L 12/08/24 21:06 Pulse Rate 86 12/08/24 23:30 Respiratory Rate 16 12/08/24 23:30 Blood Pressure 140/92 H 12/08/24 23:30 Pulse Oximetry 96 12/08/24 23:30 MDM - Abdominal Pain MDM Narrative Medical decision making narrative: This is a 44-year-old female who presents to the ED for chief complaint of lower back/flank pain. Vitals are normal. Exam does show left flank tenderness. Lab work shows elevated white count [id number], however felt more likely to be acute phase reaction as her urinalysis is grossly negative for infection. CMP does show mild elevations of AST and ALT within normal alk-phos. She has no right upper quadrant tenderness on exam. CT abdomen pelvis with IV contrast: Nonobstructing 12 mm left lower pole renal stone. No obstructive uropathy. No hydronephrosis. Given the above workup is reassuring, of felt more likely to be due to a musculoskeletal cause of pain. She has improved after antiemetics, pain medications here. Patient will be discharged in stable condition. Supportive measures discussed and return precautions given. Patient is understanding and agreeable with plan for discharge with PCP follow-up. Lab Data 12/08/24 23:25 12/08/24 23:25 Labs: Lab Results 12/08/24 12/08/24 12/08/24 Range/Units 23:01 23:04 23:25 WBC 17.3 H (4.5-10.0) K/mm3 RBC 4.78 (4.2-5.4) M/mm3 Hgb 14.7 (12.0-15.0) g/dL Hct 44.2 (37.0-47.0) % MCV 92.5 (80-100) fl MCH 30.8 (26-34) pg MCHC 33.3 (32-36) g/dl RDW 13.4 (11.5-14.5) % Plt Count 312 (150-375) k/mm3 MPV 9.4 (7.4-10.4) fl Immature Gran % (Auto) 0.4 (0-0.5) % Neut % (Auto) 66.2 (45.5-73.1) % Lymph % (Auto) 23.1 (18.3-44.2) % [place] % (Auto) 6.9 (2.6-8.5) % Eos % (Auto) 2.9 (0-4.4) % Baso % (Auto) 0.5 (0.2-1.2) % Lymph # (Auto) 3.99 H (0.9-3.2) K/mm3 [place] # (Auto) 1.2 H (0.1-0.6) K/mm3 Eos # (Auto) 0.5 H (0-0.3) K/mm3 Baso # (Auto) 0.1 (0.0-0.1) K/mm3 Abs Immat Gran (auto) 0.07 H (0.00-0.031) K/mm3 Absolute Neuts (auto) 11.4 H (1.3-6.7) K/mm3 Absolute Nucleated RBC 0.000 (0.0-0.012) K/mm3 Nucleated RBC % 0.0 (0.0-0.2) % Sodium 141 (137-145) mmol/L Potassium 3.5 (3.4-5.0) mmol/L Chloride 99 (98-107) mmol/L Carbon Dioxide 32 H (22-30) mmol/L Anion Gap 10 (4-12) mmol/L BUN 13 D (7-17) mg/dL Creatinine 0.68 L (0.7-1.0) mg/dL Estim Creat Clear Calc 83 ml/min Estimated GFR > 60 (59 - ) Glucose 123 H (65-110) mg/dL Calcium 9.5 (8.4-10.2) mg/dL Total Bilirubin 0.4 (0.2-1.3) mg/dL AST 153 H (14-36) U/L ALT 320 H (6-35) U/L Alkaline Phosphatase 126 (38-126) U/L Total Protein 8.0 (6.3-8.2) g/dL Albumin 4.2 (3.5-5.1) g/dL Lipase 138 (23-300) U/L Urine Color Yellow (Yellow) Urine Appearance Cloudy H (Clear) Urine pH 6.0 (5.0-9.0) Ur Specific [place] 1.022 (1.001-1.035) Urine Protein Negative (Negative) mg/dL Urine Glucose (UA) Negative (Negative) mg/dL Urine Ketones Negative (Negative) mg/dL Ur Blood (Man) Negative (Negative) Urine Nitrate Negative (Negative) Urine Bilirubin Negative (Negative) Urine Urobilinogen 1.0 (<2.0) mg/dL Leukocyte Esterase Rfl Negative (Negative) JOY/UL Urine RBC 6-10 H (0-2) /hpf Urine WBC 0-5 (0-3) /hpf Ur Squamous Epith Cells Occasional (Few) /hpf Calcium Oxalate Crystal Present (None) /hpf Urine Bacteria Rare /hpf Urine Casts 0-2 POC Urine HCG, Qual Negative (Negative) Discharge Plan Discharge Clinical Impression: Low back pain Patient Disposition: Home, Self-Care Condition: Stable Instructions: Antibiotic Form Additional Instructions: Exam and imaging today are reassuring overall. No new kidney stones or UTI today. Please follow-up with PCP on this issue. Make sure that your taking regular Tylenol and ibuprofen at home for pain control. If you have any new or worsening symptoms please return to the ER for further evaluation. Patient Language: Sinhala Prescriptions: No Action fluticasone propion-salmeterol 250-50 mcg/dose blister with device 1 ea INHALATION BID dicyclomine 20 mg tablet 20 mg PO TID PRN (Reason: helps stomach) lisinopril 10 mg tablet 10 mg PO DAILY metformin 500 mg tablet extended release 24 hr 500 mg PO BID Viberzi 100 mg tablet 100 mg PO BID buspirone 15 mg tablet 15 mg PO TID hydrocodone-acetaminophen 10-325 mg tablet 1 tablet PO Q6H PRN (Reason: Pain) Qty: 20 0RF tamsulosin [Flomax] 0.4 mg capsule 0.4 mg PO DAILY Qty: 10 0RF tamsulosin 0.4 mg Capsule 0.4 mg PO HS Qty: 25 0RF phenazopyridine 100 mg Tablet 100 mg PO TID PRN (Reason: Dysuria) Qty: 20 0RF vancomycin 1.75 gram recon soln 1.75 g IV Q24H Rx Instructions: Patient had a positive blood culture Enterococcus faecium on 10/21. Patient needs to continue vancomycin 1750 mg q.12 hours until 11/06/2024. Patient was set up with home health care for antibiotic guidance. oxycodone-acetaminophen 5-325 mg Tablet 1 tablet PO Q4H PRN (Reason: Pain Rated 4-6) 5 Days Qty: 12 0RF Follow-up/Referrals: UNKNOWN,DOCTOR [Primary Care Provider] - Time of Disposition: 01:34
[2024-12-08 23:06] LABS: BEDSIDEPREGUCG Negative (Negative)
[2024-12-08] MEDS: HYDROmorphone HCL INJ (*CRX) 1 MG/ML SYR 0.5 MG IV PUSH (23:15)
[2024-12-08] MEDS: ONDANSETRON INJ 4 MG/2 ML VIAL IV PUSH (23:15)
[2024-12-08 23:30] VITALS: BP 140/92; PULSE 86; RESP 16; O2SAT 96
[2024-12-08 23:30] LABS: Basophils Absolute Auto 0.1 K/mm3 (0.0-0.1); Basophils Percent Auto 0.5 % (0.2-1.2); Eosinophils Absolute Auto 0.5 K/mm3 (0-0.3); Eosinophils Percent Auto 2.9 % (0-4.4); Hematocrit 44.2 % (37.0-47.0); Hemoglobin 14.7 g/dL (12.0-15.0); Immature Granulocyte Absolute 0.07 K/mm3 (0.00-0.031); Immature Granulocyte Percent A 0.4 % (0-0.5); Lymphocytes Absolute Auto 3.99 K/mm3 (0.9-3.2); Lymphocytes Percent Auto 23.1 % (18.3-44.2); Mean Corpuscular HGB Conc 33.3 g/dl (32-36); Mean Corpuscular Hemoglobin 30.8 pg (26-34); Mean Corpuscular Volume 92.5 fl (80-100); Mean Platelet Volume 9.4 fl (7.4-10.4); Monocytes Absolute Auto 1.2 K/mm3 (0.1-0.6); Monocytes Percent Auto 6.9 % (2.6-8.5); Neutrophils Absolute Auto 11.4 K/mm3 (1.3-6.7); Neutrophils Percent Auto 66.2 % (45.5-73.1); Platelet Count Result 312 k/mm3 (150-375); Red Blood Count 4.78 M/mm3 (4.2-5.4); Red Cell Distribution Width 13.4 % (11.5-14.5); White Blood Count 17.3 K/mm3 (4.5-10.0)
[2024-12-08 23:33] LABS: Add Urine Microscopic? YES; Appearance Urine Cloudy (Clear); Bacteria Urine Rare /hpf; Bilirubin Urine Negative (Negative); Blood Urine Negative (Negative); Calcium Oxalate Crystals Urine Present /hpf; Color Urine Yellow (Yellow); Glucose Urine UA Negative (Negative); Ketones Urine Negative (Negative); Leukocyte Esterase Ur Negative LEU/UL (Negative); Nitrate Urine Negative (Negative); Non Pathogenic Casts 0-2; Protein Urine Negative (Negative); Specific Grav Ur 1.022 (1.001-1.035); Squamous Epithelial Cell Urine Occasional /hpf (Few); WBC Urine 0-5 /hpf (0-3)
[2024-12-08 23:50] LABS: Alanine Aminotransferase 320 U/L (6-35); Albumin Level 4.2 g/dL (3.5-5.1); Alkaline Phosphatase 126 U/L (38-126); Anion Gap 10 mmol/L (4-12); Aspartate Amino Transferase 153 U/L (14-36); Bilirubin,Total 0.4 mg/dL (0.2-1.3); Blood Urea Nitrogen 13 mg/dL (7-17); Calcium 9.5 mg/dL (8.4-10.2); Carbon Dioxide 32 mmol/L (22-30); Chloride 99 mmol/L (98-107); Estimated CRCL calculation 83 ml/min; Estimated Glomerular Filt Rate > 60; Glucose 123 mg/dL (65-110); Lipase 138 U/L (23-300); Potassium 3.5 mmol/L (3.4-5.0); Sodium 141 mmol/L (137-145)
[2024-12-09 01:53] VITALS: RESP 18; O2SAT 98
[2024-12-09 01:54] VITALS: BP 141/82; PULSE 82; RESP 18; O2SAT 98
--- OUTSIDE RECORDS SUMMARY | 2024-12-11 14:59 | XMS_ITS | Clinical Summary ---
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 Name Role Phone Unavailable Primary Care Provider Unavailabl e Encounters Date Type Department Care Team Description 12/10/2024 External Device Data [facility]STRACTION Provider, Abstract 11/27/2024 7:30 AM INVESTIGATIONS CONSULTANT [facility]illary [facility] [address] [place] [address] Sameer Florez MD History of fracture; Lumbar radiculopathy 11/27/2024 7:00 AM INVESTIGATIONS CONSULTANT Ancillary Procedure [place] [address] [place] [id number] Sameer Florez MD History of fracture; Cervical radiculopathy 10/21/2024 External Device Data [facility] ABSTRACTION Provider, Abstract 2024 External Device Data [facility] ABSTRACTION Provider, Abstract from Last 3 Months Social History Tobacco Use Types Packs/Day Years Used Date Smoking Tobacco: Never Assessed Comments Unknown Sex and Gender Information Value Date Recorded Sex Assigned at Not on file Legal Sex Female 5:32 PM INVESTIGATIONS CONSULTANT Gender Identity Not on file Sexual Orientation Not on file Plan of Treatment Health Maintenance Due Date Last Done Comments Pre-Diabetes and Diabetes Screening 1979 PNEUMOCOCCAL VACCINE 0-64 YE ARS (1 of 2 - PCV) 1985 DTAP/TDAP/TD VACCINES (1 - Tdap) 1998 HEPATITIS B VACCINES (1 of 3 - 19+ 3-dose series) 1998 CERVICAL CANCER SCREENING 2009 BREAST CANCER SCREENING 2019 INFLUENZA VACCINE (#1) 2024 COLORECTAL SCREENING 2024 Colorectal Cancer Screening 2024 FIT-DNA Q 3 years 2024 FIT/FOBT Q 1 year 2024 Flex Sig/CT Colonography Q 5 years 2024 HPV VACCINES Aged Out No longer eligi ble based on patient's age to complete this topic Procedures Procedure Name Priority Date/Time Associated Diagnosis Comments MRI LUMBAR WO CONTRAST Routine 11/27/2024 7:45 AM INVESTIGATIONS CONSULTANT History of fracture Lumbar radiculopathy MRI CERVICAL WO CONTRAST Routine 11/27/2024 7:14 AM INVESTIGATIONS CONSULTANT History of fracture Cervical radiculopathy from Last 3 Months Results * MRI LUMBAR WO CONTRAST (11/27/2024 7:45 AM INVESTIGATIONS CONSULTANT) Anatomical Region Laterality Modality Spine Magnetic Resonan ce 11/27/2024 7:45 AM INVESTIGATIONS CONSULTANT Impressions 11/27/2024 7:53 AM INVESTIGATIONS CONSULTANT IMPRESSION: ?? 1. Mild degenerative change without significant central canal or neural foraminal narrowing seen. A left paracentral annular fissure is apparent at L5-S1. Narrative 11/27/2024 7:53 AM INVESTIGATIONS CONSULTANT EXAM: MRI LUMBAR WO CONTRAST DATE: 11/27/2024 HISTORY: History of fracture; Lumbar radiculopathy COMPARISON: 09/11/2023. TECHNIQUE: Multiplanar multisequence FINDINGS: ?? The conus with normal signal intensity and size ends at L1. The vertebral body heights and bony alignment are well-maintained. No abnormal marrow signal is seen. There is mild degenerative disc disease at L5-S1. And 11 mm cyst is noted inferiorly in the left kidney. There is a subcentimeter right renal cyst. Segmental analysis: At L1-L2, no central canal or neural foraminal narrowing is seen. At L2-L3, no central canal or neural foraminal narrowing is seen. At L3-L4, a diffuse disc protrusion is present without central canal or neural foraminal narrowing seen. At L4-L5, a central disc protrusion is present. No central canal or neural foraminal narrowing is noted. At L5-S1, a diffuse disc protrusion is seen. No central canal or neural foraminal narrowing is noted. There is some linear high signal to the left of midline posteriorly in the disc consistent with an annular fissure. Procedure Note Jhonny Hernandez MD - 11/27/2024 EXAM: MRI LUMBAR WO CONTRAST DATE: 11/27/2024 HISTORY: History of fracture; Lumbar radiculopathy COMPARISON: 09/11/2023. TECHNIQUE: Multiplanar multisequence FINDINGS: The conus with normal signal intensity and size ends at L1. The vertebral body heights and bony alignment are well-maintained. No abnormal marrow signal is seen. There is mild degenerative disc disease at L5-S1. And 11 mm cyst is noted inferiorly in the left kidney. There is a subcentimeter right renal cyst. Segmental analysis: At L1-L2, no central canal or neural foraminal narrowing is seen. At L2-L3, no central canal or neural foraminal narrowing is seen. At L3-L4, a diffuse disc protrusion is present without central canal or neural foraminal narrowing seen. At L4-L5, a central disc protrusion is present. No central canal or neural foraminal narrowing is noted. At L5-S1, a diffuse disc protrusion is seen. No central canal or neural foraminal narrowing is noted. There is some linear high signal to the left of midline posteriorly in the disc consistent with an annular fissure. IMPRESSION: 1. Mild degenerative change without significant central canal or neural foraminal narrowing seen. A left paracentral annular fissure is apparent at L5-S1. Sameer Florez MD MR ORDERABLES Final Result * MRI CERVICAL WO CONTRAST (11/27/2024 7:14 AM INVESTIGATIONS CONSULTANT) Anatomical Region Laterality Modality Spine Magnetic Resonan ce 11/27/2024 7:15 AM INVESTIGATIONS CONSULTANT Impressions 11/27/2024 7:33 AM INVESTIGATIONS CONSULTANT IMPRESSION: ?? Susceptibility artifact associated with fusion from C5 through C7. At C5/6 and C6/7, uncovertebral joint hypertrophy mildly narrows the left neural foramen. Narrative 11/27/2024 7:33 AM INVESTIGATIONS CONSULTANT EXAM: MRI CERVICAL WO CONTRAST DATE: 11/27/2024 7:24 AM HISTORY: History of fracture; Cervical radiculopathy TECHNIQUE: Multiplanar multisequencing images of the cervical spine were performed without contrast. COMPARISON: MRI cervical spine from August 2023. FINDINGS: ??There is susceptibility artifact associated with fusion hardware from C5 through C7. These findings are not changed. C2/3: Normal. C3/4: Normal. C4/5: Normal. C5/6: There is no central stenosis. The right foramen is patent. Uncovertebral joint hypertrophy mildly narrows the left foramen. C6/7: There is no central stenosis. The right foramen is patent. Uncovertebral joint hypertrophy mildly narrows the left foramen. C7/T1: Unremarkable. Procedure Note Madison Villanueva MD - 11/27/2024 EXAM: MRI CERVICAL WO CONTRAST DATE: 11/27/2024 7:24 AM HISTORY: History of fracture; Cervical radiculopathy TECHNIQUE: Multiplanar multisequencing images of the cervical spine were performed without contrast. COMPARISON: MRI cervical spine from August 2023. FINDINGS: There is susceptibility artifact associated with fusion hardware from C5 through C7. These findings are not changed. C2/3: Normal. C3/4: Normal. C4/5: Normal. C5/6: There is no central stenosis. The right foramen is patent. Uncovertebral joint hypertrophy mildly narrows the left foramen. C6/7: There is no central stenosis. The right foramen is patent. Uncovertebral joint hypertrophy mildly narrows the left foramen. C7/T1: Unremarkable. IMPRESSION: Susceptibility artifact associated with fusion from C5 through C7. At C5/6 and C6/7, uncovertebral joint hypertrophy mildly narrows the left neural foramen. Sameeryonathan Florez MD MR ORDERABLES Final Result from Last [address] [place] [address] [employer] ACCESS CHOICE
--- OUTSIDE RECORDS SUMMARY | 2024-12-11 14:59 | XMS_ITS | Clinical Summary ---
Author Organization [facility] Address [address] [place] [address]. [place], [place] [address] [place] [id number] Care Team Providers Care Dry House Tender Name Role Phone Dino Roperhen Primary Care Provider [phone] David Bell MD Unavailable [phone] Danilo Dolan MD Unavailable [phone] Harvey Liriano MD Unavailable Unavailable Allergies Active Allergy Reactions Criticality Noted Date Comments Seasonal Headache,Sneezing,Ot her (see comment) 03/01/2023 allergies all year long. Sneezing, watery eyes, sinus headaches Medications fluticasone-salmete rol (ADVAIR DISKUS) 250-50 MCG/ACT inhaler Inhale 1 puff into the lungs 2 (two) times daily. 08/03/20 22 Active rosuvastatin (CRESTOR) 10 MG tablet Take 1 tablet (10 mg total) by mouth nightly at bedtime. 02/19/20 23 Active gabapentin (NEURONTIN) 300 MG capsule Take 2 capsules (600 mg total) by mouth 3 (three) times daily. Says this is ordered 4 times a day but she takes it 3 times a day and PCP is aware of that 01/25/20 23 Active metFORMIN ER (GLUCOPHAGE-XR) 500 MG 24 hr tablet Take 1 tablet (500 mg total) by mouth 2 (two) times a day. 01/10/20 23 Active nabumetone (RELAFEN) 750 MG tablet Take 1 tablet (750 mg total) by mouth 2 (two) times daily. 09/02/20 22 Active Eluxadoline 75 MG Tab Take 100 mg by mouth 2 (two) times a day. Active dicyclomine (BENTYL) 20 MG tablet Take 1 tablet (20 mg total) by mouth 3 (three) times daily. 09/02/20 22 Active albuterol (PROVENTIL) (2.5 MG/3ML) 0.083% nebulizer solution 3 mLs (2.5 mg total) as needed for Wheezing or Shortness of breath. Active busPIRone (BUSPAR) 10 MG tablet Take 1 tablet (10 mg total) by mouth as needed. Active Levocetirizine Dihydrochloride (XYZAL OR) Take 1 tablet by mouth daily. Active albuterol sulfate HFA 108 (90 Base) MCG/ACT inhaler Inhale 2 puffs into the lungs every 6 (six) hours as needed for Wheezing. Active ibuprofen (MOTRIN) 200 MG tablet Take 4 tablets (800 mg total) by mouth every 6 (six) hours as needed for Pain. Active acetaminophen (TYLENOL) 500 MG tablet Take 2 tablets (1,000 mg total) by mouth every 6 (six) hours as needed for Pain. Active metoprolol succinate ER (TOPROL-XL) 25 MG 24 hr tablet Take 1 tablet (25 mg total) by mouth daily. 03/07/20 23 Active HYDROmorphone (DILAUDID) 2 MG tabletIndications:p ost-op pain Take 2 tablets (4 mg total) by mouth every 4 (four) hours as needed for Pain (take 1-2 tablets every fours hour by mouth for post-operativ e pain. DO NOT TAKE WITH ANY OTHER OPIATE MEDICATIONS). Indications: post-op pain 45 tablet 03/09/20 23 Active HYDROmorphone (DILAUDID) 2 MG tabletIndications:P ost-operative pain Take 2 tablets (4 mg total) by mouth every 4 (four) hours as needed for Pain (Take 1-2 tablets every four hours by mouth for post-operativ e pain. Do not take with any other opiate medications). Indications: Post-operativ e pain 45 tablet 03/09/20 23 Active naproxen (NAPROSYN) 500 MG tablet Take 1 tablet (500 mg total) by mouth 2 (two) times daily with meals. 30 tablet 11/13/20 24 Active oxyCODONE-acetamino phen (PERCOCET) 5-325 MG tabletIndications:A cute Pain < 7 Day Supply Take 1 tablet by mouth every 4 (four) hours as needed for Pain. Indications: Acute Pain < 7 Day Supply 10 tablet 11/13/20 Active ketorolac (TORADOL) 10 MG tablet Take 1 tablet (10 mg total) by mouth every 6 (six) hours as needed for Pain. 20 tablet 11/08/20 24 024 Active Problems Problem Noted Date Diagnosed Date Cervical radiculopathy 03/08/2023 Encounters Date Type Department Care Team Description 11/13/2024 2:06 PM FOOD DEHYDRATOR OPERATOR - 11/13/2024 4:36 PM [facility] Emergency [facility] [place] [address] Raz Wade PA-C Flank Pain Discharge Disposition: Home or Self Care (Routine Discharge) 11/13/2024 Travel 11/08/2024 4:47 AM FOOD DEHYDRATOR OPERATOR - 11/08/2024 7:06 AM [facility] Emergency [facility] [place] [address] Jorgito Kathleen MD,PHD Leta Silveira MD Flank Pain Discharge Disposition: Home or Self Care (Routine Discharge) 11/08/2024 Travel from Last 3 Months Family History Medical History Relation Comments Heart Disease Father Hypertension Father Cancer Mother stomach cancer Diabetes Mother Stomach cancer Mother Cancer Paternal Aunt stomach cancer Stomach cancer Paternal Aunt Relation Status Comments Father Alive Mother (Age 64) 25 cm mass in stomach, lymphoma, rare stomach cancer, spinal cerebellum degeneration, paralyzed from waist down, deaf, developed it in her late 20's Paternal Aunt Sister Alive Social History Tobacco Use Types Packs/Day Years Used Date Smoking Tobacco: Every Day Cigarettes 0.5 25 Smokeless Tobacco: Never Tobacco Cessation:Ready to Q uit: Not Asked Alcohol Use Standard Drinks/Week Comments Not Currently 0 (1 standard drink = 0.6 oz pure alcohol) rarely drinks alcohol, last drink over a year ago Humiliation, Afraid, Rape, and Kick questionnair e Answer Date Recorded Within the last year, have y ou been afraid of your partner or ex-partner? No 03/08/2023 Within the last year, have y ou been humiliated or emotionally abused in other ways by your partner or ex-partner? No Within the last year, have y ou been kicked, hit, slapped, or otherwise physically hurt by your partner or ex-partner? No 03/08/2023 Within the last year, have y ou been raped or forced to have any kind of sexual activity by your partner or ex-partner? No 03/08/2023 Overall Financial Resource Strain (CARDIA) Answe r Date Recorded How hard is it for you to pa y for the very basics like food, housing, medical care, and heating? Not hard at all 03/08/2023 Exercise Vital Sign Answer Date Recorde d On average, how many days pe r week do you engage in moderate to strenuous exercise (like a brisk walk)? 0 days 03/08/2023 On average, how many minutes do you engage in exercise at this level? 0 min 03/08/2023 Hunger Vital Sign Answer Date Recorded Within the past 12 months, y ou worried that your food would run out before you got the money to buy more. Never true 03/08/20 Within the past 12 months, t he food you bought just didn't last and you didn't have money to get more. Never true 03/08/2023 PRAPARE - Transportation Answer Date Re corded In the past 12 months, has l ack of transportation kept you from medical appointments or from getting medications? No 02/18 In the past 12 months, has l ack of transportation kept you from meetings, work, or from getting things needed for daily living? No 03/08/2023 Housing Stability Vital Sign Answer Luis e Recorded In the last 12 months, was t here a time when you were not able to pay the mortgage or rent on time? No 03/08/2023 In the last 12 months, how many places have you lived? 1 03/08/2023 In the last 12 months, was t here a time when you did not have a steady place to sleep or slept in a longterm (including now)? No 03/08/2023 Comments No Sex and Gender Information Value Date Recorded Sex Assigned at Not on file Legal Sex Female 4:07 PM FOOD DEHYDRATOR OPERATOR Gender Identity Not on file Sexual Orientation Not on file Last Filed Vital Signs Vital Sign Reading Time Taken Comments Blood Pressure 158/108 11/13/2024 4:03 PM FOOD DEHYDRATOR OPERATOR Pulse 91 11/13/2024 4:03 PM FOOD DEHYDRATOR OPERATOR Temperature 36.9 ??C (98.4 ??F) 11/13/2024 1:38 PM CS T Respiratory Rate 18 11/13/2024 4:03 PM FOOD DEHYDRATOR OPERATOR Oxygen Saturation 100% 11/13/2024 4:03 PM FOOD DEHYDRATOR OPERATOR Inhaled Oxygen Concentration - - Weight 76.2 kg (167 lb 15.9 oz) 11/13/2024 1:38 PM FOOD DEHYDRATOR OPERATOR Height 157.5 cm (5' 2 ) 11/13/2024 1:38 PM FOOD DEHYDRATOR OPERATOR Body Mass Index 30.73 11/13/2024 1:38 PM FOOD DEHYDRATOR OPERATOR Plan of Treatment Health Maintenance Due Date Last Done Comments Cervical Cancer Screening Pa p Smear (Age 30 to 64) Every 3 Years 1979 Colorectal Cancer Screening Colonoscopy (10 Years) 1979 Annual Physical 1982 Pneumococcal Vaccine: Pediat rics (0 to 5 Years) and At-Risk Patients (6 to 64 Years) (1 of 2 - PCV) 1985 Hepatitis C 1997 DTaP, Tdap and Td Vaccines ( 1 - Tdap) 1998 Hepatitis B Vaccines (1 of 3 - 19+ 3-dose series) 1998 Cervical Cancer Screening Pa p with HPV Testing (Age 30 to 64) Every 5 Years 2009 Cervical Cancer Screening with HPV 2009 Mammogram Screening 2019 COVID-19 Vaccine (2 - 2023-2 5 season) 2024 06/14/2021 Influenza Adult (#1) 2024 HPV Vaccines Aged Out No longer eligi ble based on patient's age to complete this topic Meningococcal Vaccine Aged Out No fartun medhat eligible based on patient's age to complete this topic RSV Immunizations Under 20 Months Aged Out No longer eligible based on patient's age to complete this topic Goals Goal Patient Goal Type Associated Problems Recent Progress Patient-Stated? Author Family - family caregiver with be involved in care transitions and discharge planning Lifestyle No Steve Solis, RN Medical Devices Implanted Type Area Set Up Mechanic Stamping [employer] Device Identifier Shelf Expiration Date Model / Serial / Lot Graft Bone I Factor 2.5cc Allograft Putty Syringe - [id number] Implanted:Qt y: 1 on 03/08/2023 by Danilo Dolan MD at [facility] Bone N/A: Spine Cervical [employer] [id number] 07/19/2025 700-025 / / [id number] Zavation Cage [id number] Implanted:Qt y: 1 on 03/08/2023 by Danilo Dolan MD at [facility] Cage N/A: Spine Cervical 20-0607 / / Description:At c6-7 Zavation [id number] Cage Implanted:Qt y: 1 on 03/08/2023 by Danilo Dolan MD at [facility] Cage N/A: Spine Cervical 20-0606 / / Description:At c5-6 Zavation 32mm Plate Implanted:Qt y: 1 on 03/08/2023 by Danilo Dolan MD at [facility] Plate N/A: Spine Cervical 30-0232 / / Zavation 4.0x12mm Vsd Screw Implanted:Qt y: 6 on 03/08/2023 by Danilo Dolan MD at [facility] Screw N/A: Spine Cervical 31-4012 / / Tissue Surgiflo 8ml - [id number] Implanted:Qt y: 1 on 03/08/2023 by Danilo Dolan MD at [facility] Sealant N/A: Spine Cervical [employer] 04/18/2024 [id number] / / [id number] Procedures Procedure Name Priority Date/Time Associated Diagnosis Comments HC URINALYSIS AUTO W/O MICRO STAT 11/13/2024 2:26 PM FOOD DEHYDRATOR OPERATOR LIPASE STAT 11/13/2024 2:26 PM FOOD DEHYDRATOR OPERATOR COMPREHENSIVE METABOLIC PANEL STAT 11/13/2024 2:26 PM FOOD DEHYDRATOR OPERATOR CBC W/DIFF AUTOMATED STAT 11/13/2024 2:26 PM FOOD DEHYDRATOR OPERATOR CT ABD+PEL WO CON STAT 11/13/2024 2:2 0 PM FOOD DEHYDRATOR OPERATOR CT ABD+PEL WO CON STAT 11/08/2024 5:4 4 AM FOOD DEHYDRATOR OPERATOR COMPREHENSIVE METABOLIC PANEL STAT 11/08/2024 5:43 AM FOOD DEHYDRATOR OPERATOR CBC W/DIFF AUTOMATED STAT 11/08/2024 5:43 AM FOOD DEHYDRATOR OPERATOR POCT URINE (BACK OFFICE) STAT 11/08/2024 5:27 AM FOOD DEHYDRATOR OPERATOR HC URINALYSIS AUTO W/O MICRO STAT 11/08/2024 5:06 AM FOOD DEHYDRATOR OPERATOR from Last 3 Months Results * URINALYSIS (11/13/2024 2:26 PM FOOD DEHYDRATOR OPERATOR) Only the most recent of2 resultswithin the time period is included. SPECIMEN TYPE URINE CLEAN CATCH 11/13/2024 2:23 PM FOOD DEHYDRATOR OPERATOR [facility] COLOR (U) LIGHT YELLOW 11/13/2024 2:53 PM FOOD DEHYDRATOR OPERATOR [facility] TRANSPARENCY CLEAR 11/13/2024 2:53 PM FOOD DEHYDRATOR OPERATOR [facility] SPECIFIC GRAVITY (U) 1.009 1.001 - 1.030 11/13/2024 2:53 PM FOOD DEHYDRATOR OPERATOR [facility] U PH 6.5 5.0 - 9.0 11/13/2024 2:53 PM FOOD DEHYDRATOR OPERATOR [facility] LEUKOCYTES (U) NEGATIVE NEGATIVE 11/13/2024 2:53 PM FOOD DEHYDRATOR OPERATOR [facility] NITRITES NEGATIVE NEGATIVE 11/13/2024 2:53 PM FOOD DEHYDRATOR OPERATOR [facility] PROTEIN RANDOM (U) NEGATIVE <30 MG/DL 11/13/2024 2:53 PM FOOD DEHYDRATOR OPERATOR [facility] GLUCOSE (U) NORMAL NORMAL MG/DL 11/13/2024 2:53 PM FOOD DEHYDRATOR OPERATOR [facility] KETONES MG/DL (U) NEGATIVE NEGATIVE MG/DL 11/13/2024 2:53 PM FOOD DEHYDRATOR OPERATOR [facility] UROBILINOGEN NORMAL NORMAL MG/DL 11/13/2024 2:53 PM FOOD DEHYDRATOR OPERATOR [facility] BILIRUBIN (U) NEGATIVE NEGATIVE MG/DL 11/13/2024 2:53 PM FOOD DEHYDRATOR OPERATOR [facility] BLOOD (U) NEGATIVE NEGATIVE 11/13/2024 2:53 PM FOOD DEHYDRATOR OPERATOR [facility] URINE SPECIMEN OBTAINED BY CLEAN CATCH PROCEDURE / Unknown 11/13/2024 2:26 PM FOOD DEHYDRATOR OPERATOR Priti Paredes BEARING MACHINE OPERATOR URINE ORDERABLES Final Resu lt [facility] [address] [place] [id number], [place] [phone] * (ABNORMAL) COMPREHENSIVE METABOLIC PANEL (11/13/2024 2:26 PM FOOD DEHYDRATOR OPERATOR) Only the most recent of2 resultswithin the time period is included. GLUCOSE 93 70 - 99 MG/DL 11/13/2024 3:19 PM FOOD DEHYDRATOR OPERATOR [facility] BUN 11 7 - 18 MG/DL 11/13/2024 3:19 PM FOOD DEHYDRATOR OPERATOR [facility] CREATININE S/P/B 0.76 0.55 - 1.02 MG/DL 11/13/2024 3:19 PM FOOD DEHYDRATOR OPERATOR [facility] SODIUM S/P/B 136 136 - 145 MMOL/L 11/13/2024 3:19 PM FOOD DEHYDRATOR OPERATOR [facility] POTASSIUM S/P/B 4.0 3.5 - 5.1 MMOL/L 11/13/2024 3:19 PM [facility] CHLORIDE S/P/B 105 97 - 115 MMOL/L 11/13/2024 3:19 PM [facility] CO2 26.7 21 - 32 MMOL/L 11/13/2024 3:19 PM [facility] CALCIUM S/P/B 9.6 8.5 - 10.1 MG/DL 11/13/2024 3:19 PM [facility] BILIRUBIN TOTAL S/P/B 0.3 0.2 - 1.2 MG/DL 11/13/2024 3:19 PM [facility] Comment: THIS ASSAY IS NOT RECOMMENDED FOR PATIENTS UNDERGOING TREATMENT WITH ELTROMBOPAG DUE TO THE POTENTIAL FOR FALSELY ELEVATED RESULTS. TOTAL PROTEIN S/P/B 8.3(H) 6.4 - 8.2 G/DL 11/13/2024 3:19 PM [facility] ALBUMIN S/P/B 3.7 3.4 - 5.0 G/DL 11/13/2024 3:19 PM [facility] AST 62(H) 15 - 37 U/L 11/13/2024 3:19 PM [facility] ALT 206(H) 14 - 55 U/L 11/13/2024 3:19 PM [facility] ALKALINE PHOSPHATASE S/P/B 134 50 - 136 U/L 11/13/2024 3:19 PM [facility] ANION GAP 4.3 2 - 10 MMOL/L 11/13/2024 3:19 PM [facility] BUN CREATININE RATIO 14.5 6 - 26 11/13/2024 3:19 PM [facility] A/G RATIO 0.8(L) 1.0 - 2.0 RATIO 11/13/2024 3:19 PM [facility] GFR ESTIMATE >90 >90 ML/MIN/1.7 3 M2 11/13/2024 3:19 PM FOOD DEHYDRATOR OPERATOR [facility] Comment: NOTE: eGFR is not calculated for patients <18 years of age or gender unknown. This is an estimated GFR calculation using the new CKD EPI creatinine equation without race and so does not require a correction factor for race. This estimated GFR should not be used for calculating drug doses. 11/13/2024 2:26 PM FOOD DEHYDRATOR OPERATOR Priti Paredes BEARING MACHINE OPERATOR LABORATORY Final Resul t [facility] [address] [place] [address], [place] [phone] * (ABNORMAL) CBC W/DIFF AUTOMATED (11/13/2024 2:26 PM FOOD DEHYDRATOR OPERATOR) Only the most recent of2 resultswithin the time period is included. WBC 22.70(H) 4.5 - 11.0 x10'3/uL 11/13/2024 2:55 PM FOOD DEHYDRATOR OPERATOR [facility] RBC 4.86 4.20 - 5.40 x10'6/uL 11/13/2024 2:55 PM FOOD DEHYDRATOR OPERATOR [facility] HGB 15.0 12.0 - 16.0 G/DL 11/13/2024 2:55 PM FOOD DEHYDRATOR OPERATOR [facility] HCT 44.8 38.0 - 48.0 % 11/13/2024 2:55 PM FOOD DEHYDRATOR OPERATOR [facility] MCV 92.2 81.0 - 99.0 FL 11/13/2024 2:55 PM FOOD DEHYDRATOR OPERATOR [facility] MCH 30.9 27.0 - 31.0 PG 11/13/2024 2:55 PM FOOD DEHYDRATOR OPERATOR [facility] MCHC 33.5 32.0 - 36.0 G/DL 11/13/2024 2:55 PM FOOD DEHYDRATOR OPERATOR [facility] RDW 13.2 11.5 - 14.5 % 11/13/2024 2:55 PM FOOD DEHYDRATOR OPERATOR [facility] PLT 411(H) 130 - 400 x10'3/uL 11/13/2024 2:55 PM [facility] MPV 9.1(L) 9.3 - 12.2 FL 11/13/2024 2:55 PM FOOD DEHYDRATOR OPERATOR [facility] DIFFERENTIAL TYPE AUTOMATED DIFFERENTIAL 11/13/2024 2:55 PM FOOD DEHYDRATOR OPERATOR [facility] NEUTROPHILS % 74.0 % 11/13/2024 2:55 PM [facility] LYMPHOCYTES % 16.5 % 11/13/2024 2:55 PM [facility] MONOCYTES % 6.1 % 11/13/2024 2:55 PM FOOD DEHYDRATOR OPERATOR [facility] EOSINOPHILS 1.4 % 11/13/2024 2:55 PM FOOD DEHYDRATOR OPERATOR [facility] BASOPHILS 0.7 % 11/13/2024 2:55 PM FOOD DEHYDRATOR OPERATOR [facility] IMMATURE GRANS % 1.3 % 11/13/20 2:55 PM [facility] ABS. NEUTROPHILS 16.79(H) 1.80 - 7.70 x10'3/uL 11/13/2024 2:55 PM FOOD DEHYDRATOR OPERATOR [facility] ABS. LYMPHOCYTES 3.75 1.00 - 4.80 x10'3/uL 11/13/2024 2:55 PM FOOD DEHYDRATOR OPERATOR [facility] ABS. MONOCYTES 1.39(H) 0.24 - 0.86 x10'3/uL 11/13/2024 2:55 PM [facility] ABS. EOSINOPHILS 0.31 0.04 - 0.36 x10'3/uL 11/13/2024 2:55 PM FOOD DEHYDRATOR OPERATOR [facility] ABS. BASOPHILS 0.16(H) 0.01 - 0.08 x10'3/uL 11/13/2024 2:55 PM FOOD DEHYDRATOR OPERATOR [facility] ABS. IMMATURE GRANULOCYTES 0.30 0.00 - 0.49 x10'3/uL 11/13/2024 2:55 PM FOOD DEHYDRATOR OPERATOR [facility] 11/13/2024 2:26 PM FOOD DEHYDRATOR OPERATOR Priti Paredes [facility] Final Resul t Performing Organization Address City/[facility]/ZIP Co de Phone Number [facility] [address] [place] [address], [place] [phone] * (ABNORMAL) LIPASE (11/13/2024 2:26 PM FOOD DEHYDRATOR OPERATOR) LIPASE 101(H) 13 - 75 UNITS/L 11/13/2024 3:19 PM FOOD DEHYDRATOR OPERATOR [facility] 11/13/2024 2:26 PM FOOD DEHYDRATOR OPERATOR Priti Paredes [facility] Final Resul t Performing Organization Address [facility]/[place] Co de Phone Number [address] [address], [place] [phone] * CT ABD+PEL WO CON (11/13/2024 2:20 PM FOOD DEHYDRATOR OPERATOR) Only the most recent of2 resultswithin the time period is included. Anatomical Region Laterality Modality Abdomen Computed Tomogra phy 11/13/2024 2:22 PM FOOD DEHYDRATOR OPERATOR Impressions 11/13/2024 2:33 PM FOOD DEHYDRATOR OPERATOR IMPRESSION: 1. ??No obstructive stone or other acute abnormality identified. 2. ??Nonobstructive bilateral nephrolithiasis. 3. ??Bilateral ovarian cysts. 4. ??Other chronic or nonurgent findings as described above. Referred By: ?? Interpreted By: Nathan Welch MD, 11/13/2024 2:22 PM Narrative 11/13/2024 2:33 PM FOOD DEHYDRATOR OPERATOR [address] [address] Examination: CT ABD+PEL WO CON Clinical history: Bilateral flank pain Comparison: 01/09/2024 DATE/TIME: 11/13/2024 2:13 PM Technique: Multiplanar CT images of the abdomen and pelvis were obtained without IV contrast. Oral contrast: None. ??A dose lowering technique was used for this procedure, which may include, but is not limited to, dose reduction technique, automated exposure control, the use of iterative reconstruction, and ALARA (As Low As Reasonably Achievable) / Image Gently techniques. Findings: Tiny low-density right hepatic lobe lesion, too small to characterize. ??Liver upper limits of normal size. ??Spleen is normal size. ??Pancreas is not well evaluated without IV contrast. ??Cholecystectomy. ??Bile ducts upper limits of normal size. ??No adrenal mass. ??Mild left renal atrophy, stable. ??There is a nonobstructive left renal stone measuring 1.3 cm. ??Tiny nonobstructive right renal stone. ??No obstructive stone or hydronephrosis. ??Bladder is decompressed and not well evaluated. ??Stable 4.5 cm left ovarian cyst. ??New 2.9 cm right ovarian cysts. ??Recommend follow-up ultrasound as discussed on the prior exam report. ??Abdominal aorta is normal caliber. No free air or fluid. ??Calcified pelvic phleboliths. ??No bowel obstruction. ??No bowel wall thickening. ??Appendix is not identified but no evidence for appendicitis. ??No acute osseous abnormality. Procedure Note Nathan Welch MD - 11/13/[address] [address] Examination: CT ABD+PEL WO CON Clinical history: Bilateral flank pain Comparison: 01/09/2024 DATE/TIME: 11/13/2024 2:13 PM Technique: Multiplanar CT images of the abdomen and pelvis were obtainedwithout IV contrast. Oral contrast: None. A dose lowering technique wasused for this procedure, which may include, but is not limited to, dosereduction technique, automated exposure control, the use of iterativereconstruction, and ALARA (As Low As Reasonably Achievable) / Image Gentlytechniques. Findings: Tiny low-density right hepatic lobe lesion, too small tocharacterize. Liver upper limits of normal size. Spleen is normal size.Pancreas is not well evaluated without IV contrast. Cholecystectomy.Bile ducts upper limits of normal size. No adrenal mass. Mild left renalatrophy, stable. There is a nonobstructive left renal stone measuring 1.3cm. Tiny nonobstructive right renal stone. No obstructive stone orhydronephrosis. Bladder is decompressed and not well evaluated. Stable4.5 cm left ovarian cyst. New 2.9 cm right ovarian cysts. Recommendfollow-up ultrasound as discussed on the prior exam report. Abdominalaorta is normal caliber. No free air or fluid. Calcified pelvic phleboliths. No bowelobstruction. No bowel wall thickening. Appendix is not identified but noevidence for appendicitis. No acute osseous abnormality. IMPRESSION: 1. No obstructive stone or other acute abnormality identified. 2. Nonobstructive bilateral nephrolithiasis. 3. Bilateral ovarian cysts. 4. Other chronic or nonurgent findings as described above. Referred By: Interpreted By: Nathan Welch MD, 11/13/2024 2:22 PM Priti Paredes BEARING MACHINE OPERATOR CT Final Resul t * POCT urine (11/08/2024 5:27 AM FOOD DEHYDRATOR OPERATOR) URINE HCG TEST NEGATIVE Internal Control: VALID Jorgito Kathleen MD,PHD POINT OF CARE TEST ORDERAB LES Final Result from Last 3 Months Insurance [facility] Advance Directives * Full Code (Latest Code Status on File) Date Activated Date Inactivated Comments 03/09/2023 12:43 AM 03/09/2023 6:15 PM Care Teams Dry House Tender Relationship Specialty Start Date End Date Dino Roper DO [address] [place] [address] PCP - General FAMILY PRACTICE 01/23/23 David Bell MD [address] [place] [address], [address] [place] [address] Referring Physician MEDICAL ONCOLOGY 03/01/23 Danilo Dolan MD [address] [address] NEUROLOGICAL SURGERY 03/01/23 Harvey Liriano MD [address] [address] CARDIOVASCULAR DISEASE 03/07/23
--- OUTSIDE RECORDS SUMMARY | 2024-12-11 14:59 | XMS_ITS | Patient Health Summary ---
Author Organization [facility] [employer] Address [address] [place] [address] Care Team Providers Care Solutions Sales Consultant Name Role Phone Dino Roperhen Primary Care Provider [phone] Note from [facility],non-owned Affiliates and Associated Physician Practices is amultiple site organization consisting of ambulatory clinics and hospital sitesin [place], [place], [place] and [place]. This disclosure is being madepursuant to the Care Everywhere program and may not contain all information available regarding this patient. Last updated 18.[facility] Allergies No known active allergies Medications * Be aware that medications may not be up to date on this document. Alwaysverify current medications with the patient. * mometasone-formoterol (Dulera) 200-5 MCG/ACT inhaler Inhale 2 (two) puffs by mouth 2 times daily * citalopram (CELEXA) 20 MG tablet Take 1 (one) tablet by mouth once daily * gabapentin (NEURONTIN) 300 MG capsule Take 2 (two) capsules by mouth 2 times daily * metFORMIN (GLUCOPHAGE) 500 MG tablet Take 1 (one) tablet by mouth 2 times daily with morning and evening meal * nabumetone (RELAFEN) 750 MG tablet Take 1 (one) tablet by mouth 2 times daily * traZODone (DESYREL) 100 MG tablet Take 100 mg by mouth at bedtime * HYDROcodone-acetaminophen (NORCO) 5-325 MG tablet Take 1 (one) tablet by mouth 2 times daily 3TID * cetirizine (ZyrTEC) 10 MG tablet Take 1 (one) tablet by mouth once daily Reasons: Hayfever * eluxadoline (Viberzi) 75 MG tablet Take 1 (one) tablet by mouth 2 times daily with morning and evening meal 100 bid * acetaminophen (Tylenol) 500 MG tablet Take 2 (two) tablets by mouth every 6 hours as needed * albuterol (Proventil;Ventolin) (2.5 MG/3ML) 0.083% nebulizer solution 2.5 (two and one-half) mg as needed * busPIRone (Buspar) 10 MG tablet Take 1 (one) tablet by mouth as needed * Levocetirizine Dihydrochloride (XYZAL PO) Take 10 mg by mouth * dicyclomine (Bentyl) 20 MG tablet(Started 09/02/2022) Take 1 (one) tablet by mouth 3 times daily * metFORMIN ER 24hr (Glucophage XR) 500 MG tablet(Started 01/10/2023) Take 1 (one) tablet by mouth 2 times daily * rosuvastatin (Crestor) 10 MG tablet(Started 02/18/2023) Take 1 (one) tablet by mouth * metoprolol succinate XL 24hr (Toprol XL) 25 MG tablet(Started 03/07/2023) Take 1 (one) tablet by mouth once daily 4 refills by 03/06/2024 Social History Tobacco Use Types Packs/Day Years Used Date Smoking Tobacco: Every Day Cigarettes Smokeless Tobacco: Never Sex and Gender Information Value Date Recorded Sex Assigned at Not on file Gender Identity Not on file Sexual Orientation Not on file Last Filed Vital Signs Vital Sign Reading Time Taken Comments Blood Pressure 144/92 03/07/2023 1:49 PM CDT Pulse 96 03/07/2023 1:49 PM CDT Temperature 36.6 ??C (97.8 ??F) 03/07/2023 1:49 PM CD T Respiratory Rate 13 03/04/2021 1:46 PM CDT Oxygen Saturation 98% 03/07/2023 1:49 PM CDT Inhaled Oxygen Concentration - - Weight 82.4 kg (181 lb 9.6 oz) 03/07/2023 1:49 P M CDT Height 157.5 cm (5' 2 ) 03/07/2023 1:49 PM CDT Body Mass Index 33.22 03/07/2023 1:49 PM CDT Procedures * EKG 12-LEAD(Performed 03/07/2023) Performed for Pre-op examination * LAB RESULTS ORDER(Performed 03/06/2023) * CARDIAC EKG ORDER(Performed 03/04/2023) * CARDIAC EKG ORDER(Performed 02/26/2023) * Darian Block(Performed 03/04/2021) * HCG URINE QUAL POCT NOTIFICATION(Performed 03/04/2021) Performed for Preoperative examination * VA RAD EXCIS WRIST SYNOV/TENDON,EXTEN(Performed 03/04/2021) Performed for Carpal tunnel syndrome, right, Extensor intersection syndrome, right * VA REVISE MEDIAN N/CARPAL TUNNEL SURG(Performed 03/04/2021) Performed for Carpal tunnel syndrome, right, Extensor intersection syndrome, right * HCG URINE QUALITATIVE - POCT (IP) INTERFACED(Performed 03/04/2021) * XR FINGERS RIGHT 2VW OR MORE(Performed 02/11/2021) Performed for Pain and swelling of forearm, right * XR WRIST RIGHT 3VW OR MORE(Performed 02/11/2021) Performed for Pain and swelling of forearm, right * PATHOLOGY TISSUE EXAM (STL)(Performed 09/01/2020) Performed for Skin neoplasm * HCG URINE QUAL POCT NOTIFICATION(Performed 09/01/2020) Performed for Pre-op testing * EXCISION MASS OR TUMOR HAND/WRIST/FINGER(Performed 09/01/2020) Performed for Skin neoplasm * HCG URINE QUALITATIVE - POCT (IP) INTERFACED(Performed 09/01/2020) * MRI LUMBAR SPINE WO CONTRAST(Performed 06/04/2018) Performed for Osteoarthritis of lumbar spine, unspecified spinal osteoarthritis complication status * XR KNEE LEFT 4VW OR MORE(Performed 06/04/2018) Performed for Sciatica of left side, Trochanteric bursitis, left hip, Left knee pain, unspecified chronicity, Left foot pain * XR FOOT LEFT 3VW OR MORE(Performed 06/04/2018) Performed for Sciatica of left side, Trochanteric bursitis of left hip, Left foot pain * XR PELVIS W BILAT HIP 2VW(Performed 06/04/2018) Performed for Sciatica of left side, Trochanteric bursitis of left hip, Left foot pain * GROSS + MICRO EXAM(Performed 06/30/1999) Results * EKG 12-LEAD (03/07/2023 1:56 PM CDT) Ventricular Rate 96 BPM SJ SL MED GRP MUSE Atrial Rate 96 BPM SJ SL ME D GRP MUSE P-R Interval 148 ms SJ SL M ED GRP MUSE QRS Duration ms 74 ms SJ S L MED GRP MUSE Q-T Interval ms 348 ms SJ S L MED GRP MUSE QTC Calculation (Bezet) 439 ms SJ SL MED GRP MUSE Calculated P [place] 28 degrees SJ SL MED GRP MUSE Calculated R [place] 52 degrees SJ SL MED GRP MUSE Calculated T [place] -3 degrees SJ SL MED GRP MUSE Interpretation EKG Normal sinus rhythm Low voltage QRS Nonspecific ST and T wave abnormality Borderline ECG Confirmed by CITLALI MOHAN, SAMER ([id number]) on 03/08/2023 3:10:06 AM SJ SL MED GRP MUSE 03/07/2023 1:56 PM CDT 03/08/2023 3:10 AM CDT Samer Citlali MOHAN ECG ORDERABLES [facility] MED GRP MUSE * LAB RESULTS ORDER (03/06/2023) 03/06/2023 Narrative 03/06/2023 Ordered by an unspecified provider. Scanned Document LAB - THERAPEUTIC DR UG MONITORING ORDERABLES * CARDIAC EKG ORDER (03/04/2023) Only the most recent of2 resultswithin the time period is included. 03/04/2023 Narrative 03/04/2023 Ordered by an unspecified provider. Scanned Document CARDIAC SERVICES ORD ERABLES * ANESTHESIA BLOCK PERF (03/04/2021 12:33 PM CDT) Narrative Faviola De La Fuente DO - 03/04/2021 12:33 PM CDT Faviola De La Fuente, DO ? 03/04/2021 12:34 PM Darian Block: ? Patient Location: OR. Procedure: ??Darian Block Pre Procedure Section: ?? Indications: ??surgical anesthesia Pre-Anesthetic Checklist: ??Patient identified, Site examined, Surgical consent verified, Pre-op evaluation done, Informed consent obtained, Allergies reviewed, IV Checked, Risks and benefits discussed, Monitors and equipment, Time-out performed and Questions answered/anesthesia questions answered Patient Position: ??supine Laterality: ??right Monitors: ??BP, continuous pluse ox, EKG and End tidal CO2 Patient Sedated? ??Nursing documentation on MAR ? Sedation Agents (manual): propofol ??fentanyl ??versed mL Prep: ??Chloraprep Block IV already in place: ??yes Gauge: ??22 Procedure: ? Tourniquet: ??single Inflation Pressure: ??250 Arm Exsanguinated: ??yes Tourniquet Inflated: ??yes Pulses Checked: ??yes Drug Injected: ??yes Procedure Tolerance: ??tolerated well Staff Section ? Anesthesia Provider: Faviola De La Fuente, , Performed the procedure Faviola De La Fuente DO GENERAL ANESTHESIA O RDERABLES * HCG URINE QUAL POCT NOTIFICATION (03/04/2021 12:30 PM CDT) Only the most recent of2 resultswithin the time period is included. Comment Notification Label Only - See Separate Report 03/04/2021 12:30 PM CDT [facility] Urine URINE / Unknown 11:17 AM CDT Faviola De La Fuente DO LAB - URINALYSIS ORD ERABLES [facility] [address] [place] [address] * HCG URINE QUALITATIVE - POCT (IP) INTERFACED (03/04/2021 11:27 AM CDT) Only the most recent of2 resultswithin the time period is included. HCG Qual Urine Negative Negative 03/04/2021 11:32 AM CDT [facility] Urine URINE / Unknown 03/04/2021 1 1:27 AM CDT 03/04/2021 11:32 AM CDT Kam Isabel MD LAB - POINT OF CARE ORDERABLES [facility] [address] [place] [address] * XR FINGERS RIGHT 2VW OR MORE (02/11/2021 9:00 AM CDT) Anatomical Region Laterality Modality Upper Extremity, Wrist / Hand Ra diographic Imaging 02/11/2021 10:2 8 AM CDT Narrative 02/11/2021 10:29 AM CDT EXAM: XR FINGERS RIGHT 2VW OR MORE*[id number] INDICATION: Right thumb pain COMPARISON: none available FINDINGS: There is no displaced fracture or dislocation. There is no osseous destruction. Significant hypertrophic or erosive changes are not identified. A radiodense foreign body is not identified. *Reading Radiologist: Juan Alberto Morse on 02/11/2021 at 10:29 AM Procedure Note Juan Alberto Morse MD - 02/11/2021 EXAM: XR FINGERS RIGHT 2VW OR MORE*[id number] INDICATION: Right thumb pain COMPARISON: none available FINDINGS: There is no displaced fracture or dislocation. There is no osseous destruction. Significant hypertrophic or erosive changes are not identified. A radiodense foreign body is not identified. *Reading Radiologist: Juan Alberto Morse on 02/11/2021 at 10:29 AM Kam Isabel MD DIAGNOSTIC IMAGING O RDERABLES * XR WRIST RIGHT 3VW OR MORE (02/11/2021 9:00 AM CDT) Anatomical Region Laterality Modality Wrist / Hand Radiographic Sangeeta ging 02/11/2021 10:2 3 AM CDT Narrative 02/11/2021 10:26 AM CDT 3 VIEWS RIGHT WRIST Indication: Right wrist pain Findings: There is no displaced fracture or dislocation. There is no osseous destruction. Significant hypertrophic or erosive changes are not identified. There is mild radiocarpal joint space narrowing. *Reading Radiologist: Juan Alberto Morse on 02/11/2021 at 10:26 AM Procedure Note Juan Alberto Morse MD - 02/11/2021 3 VIEWS RIGHT WRIST Indication: Right wrist pain Findings: There is no displaced fracture or dislocation. There is no osseous destruction. Significant hypertrophic or erosive changes are not identified. There is mild radiocarpal joint space narrowing. *Reading Radiologist: Juan Alberto Morse on 02/11/2021 at 10:26 AM Kam Isabel MD DIAGNOSTIC IMAGING O RDERABLES * PATHOLOGY TISSUE EXAM (STL) (09/01/2020 12:24 PM CDT) Case Report Surgical Pathology Report ? Case: [id number] ? Authorizing Provider: ??Kam Isabel MD ? Collected: ? 09/01/2020 12:24 PM ? Ordering Location: ? [facility] ?Received: ?09/01/2020 02:48 PM ? CENTER ? Pathologist: ? Silvestre Levi MD ? Specimen: ?Hand Mass, right wrist ? 09/03/2020 2:53 PM CDT [facility] Final Diagnosis 1. Right wrist mass, excision: -- Benign pseudocyst, excised AB/scs 09/03/2020 2:53 PM CDT [facility] Gross Description Received in formalin, labeled with the patient's name and hand mass are two pieces of glistening, light solis tissue measuring 0.5 x 0.3 and 0.8 x 0.5 cm. Submitted in toto in A1. AB/ns 09/03/2020 2:53 PM CDT [facility] Microscopic Description The right wrist lesion appears to be a benign pseudocyst. There is considerable fibrosis surrounding the cyst suggesting that it has been there for some time. AB/scs 09/03/2020 2:53 PM CDT [facility] Disclaimer All histochemical and/or immunohistochemical results are interpreted with controls that demonstrate appropriate staining reactions before reporting results. Note on use of immunocytochemistry reagents: This test was developed and its performance characteristic determined by [facility], Department of Laboratory Medicine. It has not been cleared or approved by the U.S. Food and Drug Administration (FDA). The FDA has determined that such clearance or approval is not necessary. The test is used for clinical purpose. It should not be regarded as investigational or for research. This laboratory is certified to perform high complexity testing. The performance characteristics of the IHC/MONTEZ assays have been validated on formalin-fixed paraffin embedded tissues only. The assays have not been validated on decalcified tissues. Results should be interpreted with caution. 09/03/2020 2:53 PM CDT [facility] Embedded Images 09/03/2020 2:53 PM CDT [facility] Pathology/Cytolo gy MASS / Unknown 09/01/2020 12:24 PM CDT 09/01/2020 2:48 PM CDT Comment:Pre-op diagnosis: D49.2 S. Aidan Isabel MD LAB - PATHOLOGY/CYTO LOGY ORDERABLES [facility] [address] [place] [address] * MRI LUMBAR SPINE WO CONTRAST (06/04/2018 11:57 AM CDT) Anatomical Region Laterality Modality Spine Magnetic Resonan ce 06/04/2018 12:5 9 PM CDT Impressions 06/04/2018 1:18 PM CDT There are mild discogenic degenerative changes at L4-5 and L5-S1 without significant stenosis. Edited by Radha Grijalva on 06/04/2018 1:07 PM Reading Radiologist: Madison Travis MD on 06/04/2018 at 1:18 PM Narrative 06/04/2018 1:18 PM CDT MRI LUMBAR SPINE INDICATION: Osteoarthritis of lumbar spine. Left leg pain and numbness. Lumbar radiculopathy. COMPARISON: None. TECHNIQUE: Sagittal and axial T1 and T2. Sagittal STIR, 3-D lumbar myelogram. FINDINGS: There are no comparison radiographs of the lumbar spine available at this time. For the purposes of this examination, it should be assumed that this patient has five lumbar vertebral bodies. Careful correlation between this and the subsequent radiographic examinations of the lumbar spine is recommended to ensure consistent numbering of disc spaces. This is particularly important if surgery is considered. Alignment: Normal. Marrow: Normal. Spinal cord: Normal in morphology and in signal intensity. Terminates at approximately L1-2. Disc spaces: There is mild loss of disc height and hydration at L5-S1. Remaining discs appear unremarkable. The following levels were directly imaged in the axial plane: T12-L1: Normal. L1-L2: Normal. L2-L3: Normal. L3-L4: Normal. L4-L5: There is a minimal disc bulge without significant stenosis. L5-S1: Mild diffuse disc bulge does not result in significant stenosis. Procedure Note Madison Travis MD - 06/04/2018 MRI LUMBAR SPINE INDICATION: Osteoarthritis of lumbar spine. Left leg pain and numbness. Lumbar radiculopathy. COMPARISON: None. TECHNIQUE: Sagittal and axial T1 and T2. Sagittal STIR, 3-D lumbar myelogram. FINDINGS: There are no comparison radiographs of the lumbar spine available at this time. For the purposes of this examination, it should be assumed that this patient has five lumbar vertebral bodies. Careful correlation between this and the subsequent radiographic examinations of the lumbar spine is recommended to ensure consistent numbering of disc spaces. This is particularly important if surgery is considered. Alignment: Normal. Marrow: Normal. Spinal cord: Normal in morphology and in signal intensity. Terminates at approximately L1-2. Disc spaces: There is mild loss of disc height and hydration at L5-S1. Remaining discs appear unremarkable. The following levels were directly imaged in the axial plane: T12-L1: Normal. L1-L2: Normal. L2-L3: Normal. L3-L4: Normal. L4-L5: There is a minimal disc bulge without significant stenosis. L5-S1: Mild diffuse disc bulge does not result in significant stenosis. IMPRESSION There are mild discogenic degenerative changes at L4-5 and L5-S1 without significant stenosis. Edited by Radha Grijalva on 06/04/2018 1:07 PM Reading Radiologist: Madison Travis MD on 06/04/2018 at 1:18 PM Francisco Javier Montero MD MR ORDERABLES * XR FOOT 3+ VW LEFT (06/04/2018 11:30 AM CDT) Anatomical Region Laterality Modality Ankle / Foot Radiographic Sangeeta ging 06/04/2018 3:39 PM CDT Impressions 06/04/2018 3:40 PM CDT Calcaneal spurs Reading Radiologist: Paul Sethi MD on 06/04/2018 at 3:40 PM Narrative 06/04/2018 3:40 PM CDT Left foot 3 views INDICATION: Left foot pain, initial encounter FINDINGS: 3 views of the left foot without prior shows no acute fracture, subluxation or dislocation. There are spurs off the plantar and posterior aspect of the calcaneus. Procedure Note Paul Sethi MD - 06/04/2018 Left foot 3 views INDICATION: Left foot pain, initial encounter FINDINGS: 3 views of the left foot without prior shows no acute fracture, subluxation or dislocation. There are spurs off the plantar and posterior aspect of the calcaneus. IMPRESSION Calcaneal spurs Reading Radiologist: Paul Sethi MD on 06/04/2018 at 3:40 PM Francisco Javier Montero MD DIAGNOSTIC IMAGING O RDERABLES * XR KNEE LEFT 4VW OR MORE (06/04/2018 11:30 AM CDT) Anatomical Region Laterality Modality Lower Extremity Radiographic Sangeeta ging 06/04/2018 1:13 PM CDT Narrative 06/04/2018 1:14 PM CDT Left Knee 4 View INDICATION: Left knee pain FINDINGS: ??No acute fracture or dislocation. There is mild enthesopathy at the insertion of the quadriceps tendon. Reading Radiologist: Roma Crespo MD on 06/04/2018 at 1:14 PM Procedure Note Roma Crespo MD - 06/04/2018 Left Knee 4 View INDICATION: Left knee pain FINDINGS: No acute fracture or dislocation. There is mild enthesopathy at the insertion of the quadriceps tendon. Reading Radiologist: Roma Crespo MD on 06/04/2018 at 1:14 PM Francisco Javier Montero MD DIAGNOSTIC IMAGING O [place] * XR HIPS BILATERAL 2 VW W AP PELVIS (06/04/2018 11:30 AM CDT) Anatomical Region Laterality Modality Pelvis, Lower Extremity Radiogra phic Imaging 06/04/2018 3:34 PM CDT Impressions 06/04/2018 3:35 PM CDT No acute osseous abnormality Reading Radiologist: Paul Sethi MD on 06/04/2018 at 3:35 PM Narrative 06/04/2018 3:35 PM CDT Pelvis AP view and bilateral hips 2 views each INDICATION: Pelvic pain and bilateral hip pain FINDINGS: Frontal view the pelvis and 2 views of each hip without prior shows no acute fracture, subluxation or dislocation. Procedure Note Paul Sethi MD - 06/04/2018 Pelvis AP view and bilateral hips 2 views each INDICATION: Pelvic pain and bilateral hip pain FINDINGS: Frontal view the pelvis and 2 views of each hip without prior shows no acute fracture, subluxation or dislocation. IMPRESSION No acute osseous abnormality Reading Radiologist: Paul Sethi MD on 06/04/2018 at 3:35 PM Francisco Javier Montero MD DIAGNOSTIC IMAGING O RDERABLES * GROSS + MICRO EXAM (06/30/1999 12:00 AM CDT) Result CASE NUMBER [id number] Comment: ORDERING PHYSICIAN ??SHELLEY CHO SPECIMEN TYPE ?Pilonidal Cyst Surgeon ?SHELLEY CHO M.D. Gross Exam ? JARROD AGUDELO Gross Report ? INDICATION FOR PROCEDURE ??PILONIDAL CYST OPERATION ??PILONIDAL CYSTECTOMY SPECIMEN ??PILONIDAL CYST GROSS ?? THE SPECIMEN IS RECEIVED IN A CONTAINER LABELED WITH THE PATIENT'S NAME JAMAICA CARLSON AND IDENTIFIED PILONIDAL CYST . ??THE SPECIMEN CONSISTS OF A SANTANA ELLIPSE OF SKIN WHICH MEASURES 6.7 X 2.1 X 2.0 CM. ??THERE ARE THREE SINUS OPENINGS WHICH RANGE IN SIZE FROM 1 X 1 MM TO 2 X 1 MM. ??SERIAL SECTIONS DISCLOSE A SINUS TRACT WHICH MEASURES 1.7 X 1.2 X 1.0 CM. ??A HOT WOUND SPRING PRODUCTION SUPERVISOR SECTION IS SUBMITTED IN A SINGLE CASSETTE. MP/SP MICROSCOPIC EXAM ? MICROSCOPIC ?? SECTIONS OF SKIN DISPLAY A SINUS TRACT, CONSISTENT WITH PILONIDAL CYST. DIAGNOSIS ? DIAGNOSIS ?? [1] SKIN, EXCISION -- ?? PILONIDAL CYST [id number] Released By ?ADIN KEN MISCELLANEOUS SAMPLE S / Unknown 06/30/1999 06/30/1999 10:35 AM CDT Historical Provider LAB - PATHOLOGY/C YTOLOGY ORDERABLES [employer] Sales Consultant Relationship Specialty Start Date End Date Dino Roper DO [address] [place] [address] PCP - General Family Medicine 08/30/20
--- OUTSIDE RECORDS SUMMARY | 2024-12-11 14:59 | XMS_ITS | Referral Summary ---
Author Organization [facility] [employer] Address [address] [place] [address] Care Team Providers Care [employer] Name Role Phone Judson Dino SalgadoEmil Primary Care Provider [phone] Source Comments [facility] [employer],non-owned Affiliates and Associated Physician Practices is amultiple site organization consisting of ambulatory clinics and hospital sitesin [place], [place], [place] and [place]. This disclosure is being madepursuant to the Care Everywhere program and may not contain all information available regarding this patient. Last updated 18.[facility] [employer] Allergies No known active allergies Medications * Be aware that medications may not be up to date on this document. Alwaysverify current medications with the patient. Medication Sig Dispensed Refills Start Date End Date Status mometasone-formoterol (Dulera) 200-5 MCG/ACT inhaler Inhale 2 (two) puffs by mouth 2 times daily Active citalopram (CELEXA) 20 MG tablet Take 1 (one) tablet by mouth once daily Active gabapentin (NEURONTIN) 300 MG capsule Take 2 (two) capsules by mouth 2 times daily Active metFORMIN (GLUCOPHAGE) 500 MG tablet Take 1 (one) tablet by mouth 2 times daily with morning and evening meal Active nabumetone (RELAFEN) 750 MG tablet Take 1 (one) tablet by mouth 2 times daily Active traZODone (DESYREL) 100 MG tablet Take 100 mg by mouth at bedtime Active HYDROcodone-acetaminoph en (NORCO) 5-325 MG tablet Take 1 (one) tablet by mouth 2 times daily 3TID Active cetirizine (ZyrTEC) 10 MG tabletIndications:Seaso nal Allergic Rhinitis Take 1 (one) tablet by mouth once daily Reasons: Hayfever Active eluxadoline (Viberzi) 75 MG tablet Take 1 (one) tablet by mouth 2 times daily with morning and evening meal 100 bid Active acetaminophen (Tylenol) 500 MG tablet Take 2 (two) tablets by mouth every 6 hours as needed Active albuterol (Proventil;Ventolin) (2.5 MG/3ML) 0.083% nebulizer solution 2.5 (two and one-half) mg as needed Active busPIRone (Buspar) 10 MG tablet Take 1 (one) tablet by mouth as needed Active Levocetirizine Dihydrochloride (XYZAL PO) Take 10 mg by mouth Active dicyclomine (Bentyl) 20 MG tablet Take 1 (one) tablet by mouth 3 times daily 09/02/2022 Active metFORMIN ER 24hr (Glucophage XR) 500 MG tablet Take 1 (one) tablet by mouth 2 times daily 01/10/2023 Active rosuvastatin (Crestor) 10 MG tablet Take 1 (one) tablet by mouth 02/18/2023 Active metoprolol succinate XL 24hr (Toprol XL) 25 MG tablet Take 1 (one) tablet by mouth once daily 90 tablet 4 03/07/2023 Active Social History Tobacco Use Types Packs/Day Years [...] Mass Index 33.22 03/07/2023 1:49 PM CDT Plan of Treatment Not on file Care Teams [employer] Relationship Specialty Start Date End Date Dino Roper DO [address] [place] [address] [place] [address] PCP - General Family Medicine 08/30/20
--- OUTSIDE RECORDS SUMMARY | 2024-12-11 14:59 | XMS_ITS | Clinical Summary ---
Author Organization [facility] Address [address] [place] [address] Care Team Providers Care Health Physics Technician Name Role Phone Roper Dino SalgadoEmil Primary Care Provider [phone] Source Comments [facility],non-owned Affiliates and Associated Physician Practices is amultiple site organization consisting of ambulatory clinics and hospital sitesin [place], [place], [place] and [place]. This disclosure is being madepursuant to the Care Everywhere program and may not contain all information available regarding this patient. Last updated 18.[facility] Allergies No known active allergies Medications * [...] 03/07/2023 1:49 PM CDT Plan of Treatment Health Maintenance Due Date Last Done Comments KYRA BentonAGES 45-75) - COL ON CA SCREENING 1979 COLON MONITORING 1979 COLONOSCOPY - COLON CA SCREENING 1979 CT COLONOGRAPHY - COLON CA SCREENING 1979 Colorectal Cancer Screening 1979 FIT - COLON CA SCREENING 1979 FLEX SIG - COLON CA SCREENING 1979 MAMMOGRAM 1979 PAP SMEAR 1979 HIV SCREENING 1994 HEPATITIS C SCREENING 09/18/1997 DTAP/TDAP/TD VACCINES (1 - Tdap) 1998 HEPATITIS B VACCINE (1 of 3 - 19+ 3-dose series) 1998 PNEUMOCOCCAL VACCINE (1 of 2 - PCV) 1998 SCREENING FOR DIABETES 03/07/2023 COVID-19 VACCINE (1 - 2023-2 5 season) 2024 INFLUENZA VACCINE (#1) 2024 DEPRESSION SCREENING 11/19/2024 ZOSTER VACCINE (1 of 2) 2029 HIB VACCINE Aged Out No longer eligi ble based on patient's age to complete this topic HPV VACCINE Aged Out No longer eligi ble based on patient's age to complete this topic MENINGOCOCCAL (Group B) VACCINE Aged Out No longer eligible based on patient's age to complete this topic MENINGOCOCCAL VACCINE Aged Out No fartun medhat eligible based on patient's age to complete this topic Care Teams Health Physics Technician Relationship Specialty Start Date End Date Dino Roper DO [address] [place] [address] [place] [address] PCP - General Family Medicine 08/30/20
--- OUTSIDE RECORDS SUMMARY | 2024-12-11 15:00 | XMS_ITS | Encounter Summary ---
Author Organization [facility] Healthcare Address [address] [place] [address] Care Team Providers Care Supply Chain Associate Name Role Phone Cody Roper DO Primary Care Provider David Bell MD Unavailable [phone] Encounter Details Date Type Department Care Team (Late st Contact Info) Description 01/12/2023 Telephone [facility] [address] [place] [address] [place] [phone] [address] Social History Tobacco Use Types Packs/Day Years Used Date Smoking Tobacco: Heavy Smoker Cigarettes 1 24 Smokeless Tobacco: Never Alcohol Use Standard Drinks/Week Comments Yes 0 (1 standard drink = 0.6 oz pur e alcohol) rare Comments No Sex and Gender Information Value Date Recorded Sex Assigned at Not on file Legal Sex Female 8:19 AM CDT Gender Identity Not on file Sexual Orientation Not on file documented as of this encounter Plan of Treatment Not on file documented as of this encounter Visit Diagnoses Not on filedocumented in this encounter Care Teams Supply Chain Associate Relationship Specialty Start Date End Date Cody Roper DO [address] [place] [address] PCP - General Family Medicine 07/02/19 David Bell MD [address] [place] [address] Medical Oncologist/Tissue Technician Hematology and Oncology 06/11/20 documented as of this encounter
--- OUTSIDE RECORDS SUMMARY | 2024-12-11 15:00 | XMS_ITS | Referral Summary ---
Author Organization [facility] Address [address] [place] [address] Care Team Providers Care County Engineer Name Role Phone Cody Roper DO Primary Care Provider David Bell MD Unavailable [phone] Allergies No known active allergies Medications traZODone (DESYREL) 50 mg tablet Take 50 mg by mouth nightly at bedtime. 0 9 Active piroxicam (FELDENE) 20 mg capsule Take by mouth daily 3 9 Active montelukast (SINGULAIR) 10 mg tablet Take 10 mg by mouth every evening 3 9 Active metFORMIN XR (GLUCOPHAGE XR) 500 mg 24 hr tablet Take by mouth 2 (two) times a day with meals 11 9 Active DULERA 200-5 mcg/actuation inhaler TAKE 2 PUFFS BY MOUTH TWICE A DAY 3 9 Active gabapentin (NEURONTIN) 300 mg capsule 600 mg 3 (three) times a day 11 9 Active cetirizine (ZyrTEC) 10 mg tablet Take 10 mg by mouth daily Active albuterol 2.5 mg /3 mL (0.083 %) nebulizer solution as needed Active busPIRone (BUSPAR) 10 mg tablet buspirone 10 mg tablet Active Viberzi 100 mg tablet 2 (two) times a day 2 Active dicyclomine (BENTYL) 20 mg tablet Take 20 mg by mouth 3 (three) times a day as needed 2 Active Advair Diskus 250-50 mcg/dose diskus inhaler TAKE 1 PUFF BY MOUTH TWICE A DAY 2 Active HYDROcodone-roverto taminophen (NORCO) 5-325 mg per tablet TAKE 1 TABLET BY MOUTH THREE TIMES A DAY NEEDED FOR PAIN 2 Active hydrocortisone (ANUSOL-HC) 2.5 % rectal cream 2 Active nabumetone (RELAFEN) 750 mg tablet Take 750 mg by mouth 2 (two) times a day 2 Active diazePAM (VALIUM) 10 mg tabletIndicatio ns:anxiety,Arelis tion Take 1 tablet 1 hour before procedure. Will need courier driver to bring him. 2 tablet 3 Active Active Problems Problem Noted Date Diagnosed Date Chronic pain of left knee 11/30/2022 Myalgia 10/19/2022 Cervical radiculopathy 10/19/2022 Cervical spinal stenosis 10/19/2022 Leucocytosis 07/16/2019 Resolved Problems Problem Noted Date Diagnosed Date Resolved Date Chronic pain of right knee 11/30/2022 0 11/30/2022 Social History Tobacco Use Types Packs/Day Years Used Date Smoking Tobacco: Heavy Smoker Cigarettes 1 24 Smokeless Tobacco: Never Tobacco Cessation:Ready to Q uit: Not Asked; Counseling Given: Not Answered Alcohol Use Standard Drinks/Week Comments Yes 0 (1 standard drink = 0.6 oz pur e alcohol) rare Personal Safety Answer Date Recorded Getting School Help Needed Not on file 12/02 Comments No Sex and Gender Information Value Date Recorded Sex Assigned at Not on file Legal Sex Female 8:19 AM CDT Gender Identity Not on file Sexual Orientation Not on file Last Filed Vital Signs Vital Sign Reading Time Taken Comments Blood Pressure 107/77 11/30/2022 12:49 PM LYE BATH OPERATOR Pulse 77 11/30/2022 12:49 PM LYE BATH OPERATOR Temperature 36.4 ??C (97.5 ??F) 11/02/2022 7:14 AM CS T Respiratory Rate 16 11/30/2022 12:49 PM LYE BATH OPERATOR Oxygen Saturation 100% 11/30/2022 12:49 PM LYE BATH OPERATOR Inhaled Oxygen Concentration - - Weight 83.2 kg (183 lb 8 oz) 10/19/2022 9:40 AM LYE BATH OPERATOR Height 157.5 cm (5' 2 ) 10/19/2022 9:40 AM LYE BATH OPERATOR Body Mass Index 33.56 10/19/2022 9:40 AM LYE BATH OPERATOR Plan of Treatment Not on file Insurance [employer] ACC[employer] CHOICE [employer] Care Teams County Engineer Relationship Specialty Start Date End Date Cody Roper DO [address] [place] [address] PCP - General Family Medicine 07/02/19 David Bell MD [address] [place] [place] [place] [address] Medical Oncologist/Fishing Vessel Mate Hematology and Oncology 06/11/20
--- OUTSIDE RECORDS SUMMARY | 2024-12-11 15:00 | XMS_ITS | Clinical Summary ---
Author Organization [facility] Address [address] [place] [address] Care Team Providers Care Agricultural Equipment Operator Name Role Phone Cody Roper DO Primary Care Provider David Bell MD Unavailable [phone] Allergies No known active allergies Medications [...] tablet 1 hour before procedure. Will need laundry route driver to bring him. 2 tablet 3 Active Active Problems Problem Noted Date Diagnosed Date Chronic pain of left knee 11/30/2022 Myalgia 10/19/2022 Cervical radiculopathy 10/19/2022 Cervical spinal stenosis 10/19/2022 Leucocytosis 07/16/2019 Resolved Problems Problem Noted Date Diagnosed Date Resolved Date Chronic pain of right knee 11/30/2022 0 11/30/2022 Medical History Medical History Date Comments Asthma Family History Medical History Relation Name Comments Lymphoma Mother Stomach cancer Mother Relation Name Status Comments Mother Social History Tobacco Use Types Packs/Day Years [...] on file Sexual Orientation Not on file Obstetrics History Last Filed Vital Signs Vital Sign Reading Time Taken Comments Blood Pressure 107/77 11/30/2022 12:49 PM GREY STOCK RECORDER Pulse 77 11/30/2022 12:49 PM GREY STOCK RECORDER Temperature 36.4 ??C (97.5 ??F) 11/02/2022 7:14 AM CS T Respiratory Rate 16 11/30/2022 12:49 PM GREY STOCK RECORDER Oxygen Saturation 100% 11/30/2022 12:49 PM GREY STOCK RECORDER Inhaled Oxygen Concentration - - Weight 83.2 kg (183 lb 8 oz) 10/19/2022 9:40 AM GREY STOCK RECORDER Height 157.5 cm (5' 2 ) 10/19/2022 9:40 AM GREY STOCK RECORDER Body Mass Index 33.56 10/19/2022 9:40 AM GREY STOCK RECORDER Plan of Treatment Health Maintenance Due Date Last Done Comments Breast Cancer Screening-Mammogram 1979 Cervical Cancer Screening 1979 Colon Cancer Screening-Colonoscopy 1979 Depression Screening 1979 Hepatitis C Screening 1979 Pneumococcal vaccine <65 (1 of 2 - PCV) 1985 DTaP/Tdap/Td Vaccine (1 - Tdap) 1990 Hepatitis B Screening 1997 Regular Well Visit/Exam 18-64 1997 Covid-19 Vaccine (2 - 2023-2 5 season) 2024 06/14/2021 Influenza Vaccine (#1) 2024 HPV Vaccines Aged Out No longer eligi ble based on patient's age to complete this topic Insurance [employer] Care Teams Agricultural Equipment Operator Relationship Specialty Start Date End Date Cody Roper DO [address] [place] [address] PCP - General Family Medicine 07/02/19 David Bell MD [address] [place] [address] Medical Oncologist/Farm General Manager Hematology and Oncology 06/11/20
--- OUTSIDE RECORDS SUMMARY | 2024-12-11 15:00 | XMS_ITS | Continuity of Care Document ---
Author Organization [facility] Address [address] [place] [address] Phone Care Team Providers Care Clinical Rehab Liaison Name Role Phone Cody Roper DO Unavailable Unavailable Allergies, Adverse Reactions, Alerts Substance Reaction Status Criticality No Known Allergies Active No Inform ation Medications Medication Instructions Dosage Effective Dates (start - stop) Status Comments oxycodone-acetaminop hen 5 mg-325 mg tablet take 1 tablet by oral route every 6 hours as needed 1.00 tablet - Active Viberzi 100 mg tablet TAKE 1 TABLET BY MOUTH TWICE A DAY - Active METFORMIN HCL ER 500 MG TABLET TAKE 1 TABLET BY MOUTH TWICE A DAY WITH MORNING AND EVENING MEALS. - Active buspirone 15 mg tablet take 1 tablet by oral route 3 times every day for Anxiety - Active LISINOPRIL 10 MG TABLET TAKE 1 TABLET BY MOUTH EVERY DAY - Active dicyclomine 20 mg tablet TAKE 1 TABLET BY MOUTH THREE TIMES A DAY - Active Advair Diskus 250 mcg-50 mcg/dose powder for inhalation TAKE 1 PUFF BY MOUTH TWICE A DAY - Active Diflucan 100 mg tablet take 1 tablet by oral route every day 100 MG - Active nystatin 100,000 unit/gram topical powder apply by topical route 2 times every day to the affected area(s) both arm pits - Active Crestor 10 mg tablet TAKE 1 TABLET BY MOUTH ONCE DAILY AT BEDTIME - Active Vitamin D3 50 mcg (2,000 unit) tablet take 1 tablet by oral route 2 times every day 1 tablet - Active otc Xyzal 5 mg tablet take 1 tablet by oral route every day in the evening 5 MG - Active Refresh Optive 0.5 %-0.9 % eye drops place 1 to 2 drops in affected eye(s) twice daily as needed - Active ProAir HFA 90 mcg/actuation aerosol inhaler inhale 2 puff by inhalation route every 4 - 6 hours as needed for Asthma - Active fluticasone 50 mcg/actuation nasal spray,suspension spray once in each nostril as needed - Active Procedures Procedure Date CBC, INC PLATELETS AND DIFFERENTIAL COMPREHEN METABOLIC PANEL CMP HEMOGLOBIN A1C HGA1C, GLYCO MICROALBUMIN, QN (URINE) CREATININE, (U-R) ROUTINE VENIPUNCTURE OFFICE [id number]-[id number] BODY MASS INDEX DOCD SYST BP GE 130 - 139MM HG DIAST BP 80-89 MM HG GENERAL HEALTH PANEL LIPID PANEL ROUTINE VENIPUNCTURE OFFICE VOOZC-WZL-[id number] BODY MASS INDEX DOCD SYST BP LT 130 MM HG DIAST BP < 80 MM HG VITAMIN D, 25-HYDROXY OFFICE [id number] BODY MASS INDEX DOCD SYST BP LT 130 MM HG DIAST BP 80-89 MM HG ANTINUCLEAR ANTIBODIES (JAYCE) BASIC METABOLIC PANEL(BMP) C-REACTIVE PROTEIN (CRP) HEMATOCRIT (HCT) HEMOGLOBIN (HGB) HEMOGLOBIN A1C HGA1C, GLYCO RHEUMATOID FACTOR: QN RBC SED RATE, AUTOMATED URIC ACID, (S) URINALYSIS, DIPSTICK (UA) - Office Lab D ROUTINE VENIPUNCTURE OFFICE MOAYZ-LJR-[id number] BODY MASS INDEX DOCD SYST BP LT 130 MM HG DIAST BP 80-89 MM HG BASIC METABOLIC PANEL(BMP) HEMATOCRIT (HCT) HEMOGLOBIN (HGB) HEMOGLOBIN A1C HGA1C, GLYCO LIPID PANEL VITAMIN D, 25-HYDROXY ROUTINE VENIPUNCTURE Pt inelig neg scrn depres OFFICE GQYPT-OQS-CYUSPETS BODY MASS INDEX DOCD SYST BP GE 130 - 139MM HG DIAST BP 80-89 MM HG EKG (ELECTROCARDIOGRAM) OFFICE KOMXH-WMR-TBADQAYE BODY MASS INDEX DOCD SYST BP GE 130 - 139MM HG DIAST BP 80-89 MM HG BASIC METABOLIC PANEL(BMP) CBC, INC PLATELETS AND DIFFERENTIAL HEMOGLOBIN A1C HGA1C, GLYCO MICROALBUMIN, QN (URINE) CREATININE, (U-R) ROUTINE VENIPUNCTURE CBC, INC PLATELETS AND DIFFERENTIAL COMPREHEN METABOLIC PANEL CMP HEMOGLOBIN A1C HGA1C, GLYCO MICROALBUMIN, QN (URINE) CREATININE, (U-R) VITAMIN D, 25-HYDROXY URINALYSIS, DIPSTICK (UA) - Office Lab J ROUTINE VENIPUNCTURE OFFICE ROVLO-MJP-BXCYTWLA John-19-2023 BODY MASS INDEX DOCD SYST BP GE 130 - 139MM HG DIAST BP 80-89 MM HG OFFICE DOQKP-WEV-ZPSSXSBW BODY MASS INDEX DOCD SYST BP LT 130 MM HG DIAST BP < 80 MM HG DSCHRG MED/CURRENT MED MERGE OFFICE RIGUO-EWX-TCMZOYES SYST BP LT 130 MM HG DIAST BP 80-89 MM HG CBC, INC PLATELETS AND DIFFERENTIAL COMPREHEN METABOLIC PANEL CMP 2 HEMOGLOBIN A1C HGA1C, GLYCO LIPID PANEL VITAMIN D, 25-HYDROXY URINALYSIS, DIPSTICK (UA) - Office Lab S ROUTINE VENIPUNCTURE OFFICE UAOYM-CCG-ZLLHVYUO BODY MASS INDEX DOCD SYST BP LT 130 MM HG DIAST BP 80-89 MM HG URINALYSIS W MICROSCOPIC (UA) URINALYSIS, DIPSTICK (UA) - Office Lab S Brief Emotional/Behavioral A ssessment, With Scoring/Doct, Per Stndrd Instrument Pt inelig neg scrn depres BASIC METABOLIC PANEL(BMP) HEMATOCRIT (HCT) HEMOGLOBIN (HGB) ROUTINE VENIPUNCTURE HEMOGLOBIN A1C HGA1C, GLYCO MICROALBUMIN, QN (URINE) CREATININE, (U-R) OFFICE AEBJV-ABQ-DMBBMNHS BODY MASS INDEX DOCD SYST BP GE 130 - 139MM HG DIAST BP 80-89 MM HG CBC, INC PLATELETS AND DIFFERENTIAL COMPREHEN METABOLIC PANEL CMP 2 HEMOGLOBIN A1C HGA1C, GLYCO LIPID PANEL VITAMIN D, 25-HYDROXY MICROALBUMIN, SEMIQN(RGT STRIP) - OL Jan ROUTINE VENIPUNCTURE OFFICE HNCPJ-LDG-UZUTYVVB BODY MASS INDEX DOCD SYST BP LT 130 MM HG DIAST BP 80-89 MM HG EKG (ELECTROCARDIOGRAM) OFFICE WKMWP-PZB-RRTVNPJI BODY MASS INDEX DOCD SYST BP LT 130 MM HG DIAST BP 80-89 MM HG OFFICE OOIRL-OSM-WBFLYQYF [facility] LT 130 MM HG DIAST BP 80-89 MM HG KENALOG 10 MG INJ; MULTIPLE TRIGGER PTS, 1 OR 2 MUSCLE GROUPS OFFICE VNHUP-CNB-TLKAZAIM BODY MASS INDEX DOCD SYST BP LT 130 MM HG DIAST BP 80-89 MM HG OFFICE VAUEX-GKJ-VEWLDFVM [facility]ODY [facility] BP GE 130 - 139MM HG DIAST BP 80-89 MM HG CBC, INC PLATELETS AND DIFFERENTIAL COMPREHEN METABOLIC PANEL CMP 1 HEMOGLOBIN A1C HGA1C, GLYCO LIPID PANEL ROUTINE VENIPUNCTURE Pt inelig neg scrn depres OFFICE QJKGM-YEG-MYYAEOVQ BODY MASS INDEX DOCD SYST BP LT 130 MM HG DIAST BP 80-89 MM HG CBC, INC PLATELETS AND DIFFERENTIAL COMPREHEN METABOLIC PANEL CMP 1 HEMOGLOBIN A1C HGA1C, GLYCO ROUTINE VENIPUNCTURE OFFICE RQIRJ-FPP-KIQXXAHU BODY MASS INDEX DOCD SYST BP >= 140 MM HG6 IT DIAST BP 80-89 MM HG CBC, INC PLATELETS AND DIFFERENTIAL COMPREHEN METABOLIC PANEL CMP 1 HEMOGLOBIN A1C HGA1C, GLYCO ROUTINE VENIPUNCTURE OFFICE VVCIP-WFM-AAYEIINI BODY MASS INDEX DOCD SYST BP LT 130 MM HG DIAST BP < 80 MM HG DEAMIDATED GLADIN PEPTIDE IGA 0 DEAMIDATED GLADIN PEPTIDE IGG 0 TISSUE TRANSGLUTIMASE IGA TISSUE TRANSGLUTIMASE IGG ROUTINE VENIPUNCTURE BODY MASS INDEX DOCD SYST BP GE 130 - 139MM HG DIAST BP 80-89 MM HG OFFICE NOCPG-OSO-APIZFWPS OFFICE BOSHN-WXI-PSYUCCEI BODY MASS INDEX DOCD SYST BP LT 130 MM HG DIAST BP < 80 MM HG CBC, INC PLATELETS AND DIFFERENTIAL COMPREHEN METABOLIC PANEL CMP 0 HEMOGLOBIN A1C HGA1C, GLYCO LIPID PANEL ROUTINE VENIPUNCTURE Brief Emotional/Behavioral A ssessment, With Scoring/Doct, Per Stndrd Instrument Pt inelig neg scrn depres Kept Appointment No Charge Encounter Jul OFFICE KIPYW-EAF-VNVKHTMR BODY MASS INDEX DOCD SYST BP LT 130 MM HG DIAST BP 80-89 MM HG CBC, INC PLATELETS AND DIFFERENTIAL COMPREHEN METABOLIC PANEL CMP 0 ROUTINE VENIPUNCTURE PREVENTATIVE-EST: 40-64 BODY MASS INDEX DOCD SYST BP LT 130 MM HG DIAST BP 80-89 MM HG Brief Emotional/Behavioral A ssessment, With Scoring/Doct, Per Stndrd Instrument THYROID STIMULATION HORMONE(TSH) 2019 ROUTINE VENIPUNCTURE SCREENING FOR PAP (OBTAINING SPECIMEN) M OFFICE QGVXF-IFY-PFNVVLCR BODY MASS INDEX DOCD SYST BP LT 130 MM HG DIAST BP < 80 MM HG BP OFFICE/OUTPATIENT VISIT EST OFFICE PTOSU-NDY-WIUXFMBH BODY MASS INDEX DOCD SYST BP LT 130 MM HG DIAST BP 80-89 MM HG CBC, INC PLATELETS AND DIFFERENTIAL COMPREHEN METABOLIC PANEL CMP 9 HEMOGLOBIN A1C HGA1C, GLYCO LIPID PANEL ROUTINE VENIPUNCTURE THERAPEUTIC EXERCISES ULTRASOUND THERAPY THERAPEUTIC EXERCISES ULTRASOUND THERAPY Brief Emotional/Behavioral A ssessment, With Scoring/Doct, Per Stndrd Instrument Clin depression screen doc OFFICE EPKME-QKN-EYDWSWAI BODY MASS INDEX DOCD SYST BP LT 130 MM HG DIAST BP < 80 MM HG THERAPEUTIC EXERCISES ULTRASOUND THERAPY ELECTRICAL STIMULATION THERAPEUTIC EXERCISES ULTRASOUND THERAPY ULTRASOUND THERAPY THERAPEUTIC EXERCISES THERAPEUTIC EXERCISES ULTRASOUND THERAPY OT EVAL (MOD COMPLEXITY) CBC, INC PLATELETS AND DIFFERENTIAL COMPREHEN METABOLIC PANEL CMP 9 HEMOGLOBIN A1C HGA1C, GLYCO ROUTINE VENIPUNCTURE OFFICE SMKLO-XAE-WIXXJIIS BODY MASS INDEX DOCD SYST BP GE 130 - 139MM HG DIAST BP 80-89 MM HG Advance Directives Directive Yes / No Effective Date File Name Life Support Not Answered N/A N/A Intubation Not Answered N/A N/A Antibiotics Not Answered N/A N/A IV Fluid Support Not Answered N/A N/A Tube Feed Not Answered N/A N/A Other Directive N/A N/A WARNING:The information contained in this section is historical and is provided for information only and does not constitute a legal document or any assurance that the information is still accurate. Please verify the information with the vaca of the legal document before using it for clinical purposes. Encounters Encounter Description Practice Location Reason(s) For Visit Diagnoses Date Provider Providers Copied on Encounter [facility], [address], [place], [place], [address] , tel: [phone] [facility] No Information 4 Judson Ross. [address] [place] [address], [address] [place] [address], . tel:[phone] [facility], [address], [place], [place], [address] , tel: [phone] [facility] Kidney stone 4 Judson Ross. [address] [place] [address], [id number], . tel:[phone] [facility], [address], [place], [place], [address] , tel: [phone] Roper No Information 4 Judson Ross. [address] [place] [address], [id number], . tel:[phone] [facility], [address], [place], [place], [address] , tel: [phone] Roper No Information 4 Judson Ross. [address] [place] [address], [id number], . tel:[phone] OFFICE NVBYK-VTO-OD TAILED [facility], [address], [place], [place], [address] , tel: [phone] Roper mmp (chief complaint) Encounter for screening mammogram for malignant neoplasm of breastEssential (primary) hypertensionMixe d hyperlipidemiaMo derate persistent asthma without complicationGast roesophageal reflux disease without esophagitisAnxie tyPolycystic ovary syndromeMetaboli c syndromeSpondylo sis, unspecifiedOther spondylosis with radiculopathy, cervical regionOther spondylosis with radiculopathy, lumbosacral regionUnilateral primary osteoarthritis, left kneeCarpal tunnel syndrome of right wristInsomnia, unspecified typeControlled substance agreement signedIrritable bowel syndrome with diarrheaCurrent smokerLeukocytos is, unspecified typeVitamin D deficiencyHx of cholecystectomy 4 Judson Ross. [address] [place], [place], [address], . tel:[phone] Referring Provider: Cody Stein, [address] [place] [address], [place], [address] . tel:[phone] [facility], [address], [place], [place], [address] , tel: [phone] [facility] No Information 4 Judson Ross. [address] [place], [place], [address], . tel:[phone] [facility], [address], [place], [place], [address] , tel: [phone] Judson No Information 4 Judson Ross. [address] [facility], [place], [place], [address], . tel:[phone] [facility], [address], [place], [place], [address] , tel: [phone] Judson No Information 4 Judson Ross. [address] [place], [place], [address], [place]. tel:[phone] OFFICE MCEFN-AMW-FF TAILED [facility], [address], [place], [place], [address] , tel: [phone] Judson mmp (chief complaint) Mixed hyperlipidemiaMo derate persistent asthma without complicationGast roesophageal reflux disease without esophagitisPolyc ystic ovary syndromeMetaboli c syndromeCarpal tunnel syndrome of right wristIrritable bowel syndrome with diarrheaInsomnia , unspecified typeCurrent smokerControlled substance agreement signedLeukocytos is, unspecified typeSpondylosis, unspecifiedOther spondylosis with radiculopathy, cervical regionOther spondylosis with radiculopathy, lumbosacral regionUnilateral primary osteoarthritis, left kneeObesity (BMI 30.0-34.9)Essent ial (primary) hypertensionEnco unter for screening mammogram for malignant neoplasm of breastAnxietyTin ea corporisVitamin D deficiency 4 Judson Ross. [address] [place], [place], [address], . tel:[phone] Referring Provider: Cody Stein, [address] [facility], [place], [address] . tel:[phone] OFFICE EMWXP-OLM-WG [facility], [address], [place], [place], [address] , [place] tel: [phone] Judson mmp (chief complaint) Gastroesophageal reflux disease without esophagitisMetab olic syndromeModerate persistent asthma without complicationPoly cystic ovary syndromeCarpal tunnel syndrome of right wristInsomnia, unspecified typeObesity (BMI 30.0-34.9)Curren t smokerControlled substance agreement signedEncounter for screening mammogram for malignant neoplasm of breastAnxietyMix ed hyperlipidemiaEs sential (primary) hypertensionOthe r spondylosis with radiculopathy, cervical regionOther spondylosis with radiculopathy, lumbosacral regionSpondylosi s, unspecifiedUnila teral primary osteoarthritis, left kneeIrritable bowel syndrome with diarrheaUTI symptomsLeukocyt osis, unspecified typeArthralgia of multiple joints 3 Judson Ross. [address] [facility], [place], [place], [address], [place]. tel:[phone] Referring Provider: Cody Stein, [address] [facility], [place], [address] . tel:[phone] OFFICE DOCCN-TCJ-AS [facility], [address], [place], [place], [address] , [place] tel: [phone] [facility] IBS D (chief complaint) Irritable bowel syndrome with diarrhea 3 Meena Garrison. [address] [facility] [place], [place], [address], [place]. tel:[phone] Referring Provider: Emil Roper, [address] [facility], [place], [address] . tel:[phone] [facility], [address], [place], [place], [address] , [place] tel: [phone] Judson Other spondylosis with radiculopathy, cervical regionOther spondylosis with radiculopathy, lumbosacral regionSpondylosi s, unspecifiedUnila teral primary osteoarthritis, left knee Jul- 3 Judson Ross. [address] [facility], [place], [place], [address], [place]. tel:[phone] [facility], [address], [place], [place], [address] , [place] tel: [phone] Judson No Information 3 Judson Ross. [address] [facility], [place], [place], [address], [place]. tel:[phone] OFFICE OZTCY-MVY-KW [facility], [address], [place], [place], [address] , [place] tel: [phone] Judson mmp (chief complaint) Essential (primary) hypertensionMixe d hyperlipidemiaGa stroesophageal reflux disease without esophagitisPolyc ystic ovary syndromeAnxietyM oderate persistent asthma without complicationSpon dylosisOsteoarth ritis of spine with radiculopathy, cervical regionUnilateral primary osteoarthritis, left kneeLumbosacral radiculopathy due to degenerative joint disease of spineMetabolic syndromeIrritabl e bowel syndrome with diarrheaObesity (BMI 30.0-34.9)Iman t smokerCarpal tunnel syndrome of right wristInsomnia, unspecified typeControlled substance agreement signedEncounter for screening mammogram for malignant neoplasm of breast 3 Judson Ross. [address] [place], [place], [address], [place]. tel:[phone] Referring Provider: Cody Stein, [address] [facility] [address], [place], [address] . tel:[phone] [facility]ICE [facility], [address], [place], [place], [address] , [place] tel: [phone] [facility] (chief complaint) Essential (primary) hypertensionMeta bolic syndromeIrritabl e bowel syndrome with diarrheaUrinary incontinence, unspecified typeInsomnia, unspecified typeCurrent smokerCarpal tunnel syndrome of right wristMixed hyperlipidemiaAl lergic rhinitis, unspecified seasonality, unspecified triggerGastroeso phageal reflux disease without esophagitisModer ate persistent asthma without complicationAnxi etySpondylosisPo lycystic ovary syndromeUnilater al primary osteoarthritis, left kneeOsteoarthrit is of spine with radiculopathy, cervical regionLumbosacra l radiculopathy due to degenerative joint disease of spineCervical radiculopathyCoc cyxdyniaObesity (BMI 30.0-34.9)Other chronic painOpioid usePre-op evaluationAbnorm al EKG 3 Judson Ross. [address] [facility] [address], [place], [place], [address], [place]. tel:[phone] Referring Provider: Cody Stein, [address] [facility] [address], [place], [address] . tel:[phone] OFFICE [facility], [address], [place], [place], [address] , [place] tel: [phone] [facility] (chief complaint) Lumbosacral radiculopathy due to degenerative joint disease of spineUTI symptomsEssentia l (primary) hypertensionMixe d hyperlipidemiaGa stroesophageal reflux disease without esophagitisMetab olic syndromeModerate persistent asthma without complicationAnxi etyPolycystic ovary syndromeSpondylo sisOsteoarthriti s of spine with radiculopathy, cervical regionUnilateral primary osteoarthritis, left kneeUrinary incontinence, unspecified typeInsomnia, unspecified typeCurrent smokerObesity (BMI 30.0-34.9)Carpal tunnel syndrome of right wristAllergic rhinitis, unspecified seasonality, unspecified triggerOpioid useCoccyxdyniaOt her chronic painIrritable bowel syndrome with diarrheaCervical radiculopathy 3 Judson Ross. [address] [place], [place], [address], . tel:[phone] Referring Provider: Cody Stein, [address] [place] [address], [place], [address] . tel:[phone] OFFICE OFSWW-IPA-NK [facility], [address], [place], [place], [address] , [place] tel:[phone] [facility] Follow up (chief complaint) Irritable bowel syndrome with diarrheaRectal itching 2 Jerrell Gillette. [address] [place] [address], [address], [place]. tel:[phone] Referring Provider: Cody Stein, [address] [place] [address], [place], [address] . tel:[phone] OFFICE MMTMB-HUW-JO [facility], [address], [place], [place], [address] , [place] tel:[phone] Judson madsen (chief complaint) Cervical radiculopathyNec k pain, chronicOther chronic pain 2 Jim Camp. [address] [place], [place], [address], [place]. tel:[phone] Referring Provider: Cody Stein, [address] [facility], [place], [address] . tel:[phone] OFFICE GRQJQ-ZGF-LA [facility], [address], [place], [place], [address] , [place] tel:[phone] Judson madsen (chief complaint) Essential (primary) hypertensionMixe d hyperlipidemiaMo derate persistent asthma without complicationGast roesophageal reflux disease without esophagitisAnxie tyPolycystic ovary syndromeMetaboli c syndromeSpondylo sisOsteoarthriti s of spine with radiculopathy, cervical regionLumbosacra l radiculopathy due to degenerative joint disease of spineUnilateral primary osteoarthritis, left kneeIrritable bowel syndrome with diarrheaUrinary incontinence, unspecified typeInsomnia, unspecified typeCurrent smokerObesity (BMI 30.0-34.9)Carpal tunnel syndrome of right wristAllergic rhinitis, unspecified seasonality, unspecified triggerOpioid useCoccyxdyniaVi tamin D deficiency Jul- 2 Judson Ross. [address] [place] [address], [id number], . tel:[phone] Referring Provider: Cody Stein, [address] [place] [address], [address] . tel:[phone] [facility], [address], [place], [place], [address] , tel:[phone] Judson UTI symptoms/c oncerns (chief complaint) UTI symptoms 2 Judson Ross. [address] [place] [address], [id number], [place]. tel:[phone] Referring Provider: Cody Stein, [address] [place] [address], [place], [address] . tel:[phone] OFFICE FPFWI-EJT-TT [facility], [address], [place], [place], [address] , tel:[phone] Judson mmp (chief complaint) Essential (primary) hypertensionMeta bolic syndromeMixed hyperlipidemiaCo ccyxdyniaModerat e persistent asthma without complicationPoly cystic ovary syndromeOsteoart hritis of spine with radiculopathy, cervical regionLumbosacra l radiculopathy due to degenerative joint disease of spineSpondylosis Irritable bowel syndrome with diarrheaUrinary incontinence, unspecified typeUnilateral primary osteoarthritis, left kneeGastroesopha geal reflux disease without esophagitisAnxie tyVitamin D deficiencyAllerg ic rhinitis, unspecified seasonality, unspecified triggerCarpal tunnel syndrome of right wristOpioid useObesity (BMI 30.0-34.9)Iman powell smokerInsomnia, unspecified type Be 2 Judson Ross. [address] [facility] [address], [place], [place], [address], . tel:[phone] Referring Provider: Cody Stein, [address] [place] [address] B, [place], [address] . tel:[phone] OFFICE MRWEG-TMN-KN [facility], [address], [place], [place], [address] , [place] tel:[phone] Judson mmp (chief complaint) Essential (primary) hypertensionMixe d hyperlipidemiaMo derate persistent asthma without complicationGast roesophageal reflux disease without esophagitisAnxie tyPolycystic ovary syndromeMetaboli c syndromeOsteoart hritis of spine with radiculopathy, cervical regionLumbosacra l radiculopathy due to degenerative joint disease of spineSpondylosis Unilateral primary osteoarthritis, left kneeIrritable bowel syndrome with diarrheaUrinary incontinence, unspecified typeInsomnia, unspecified typeCurrent smokerObesity (BMI 30.0-34.9)Opioid useCarpal tunnel syndrome of right wristAllergic rhinitis, unspecified seasonality, unspecified triggerVitamin D deficiencyMeralg ia paresthetica of left side 2 Judson Ross. [address] [place] [address], [place], [place], [address], [place]. tel:[phone] Referring Provider: Cody Stein, [address] [place] [address], [place], [address] . tel:[phone] OFFICE UWSYY-SXS-NP [facility], [address], [place], [place], [address] , [place] tel:[phone] Judson Rash (chief complaint) IntertrigoHyperp igmentation 2 Erasmo Cheney. [address] [place] [address], [address], [place], [place], [address], [place]. tel:[phone] Referring Provider: Cody Stein, [address] [place] [address] B, [place], [address] . tel:[phone] OFFICE QLDMD-SMJ-VZ [facility], [address], [place], [place], [address] , [place] tel:[phone] [facility] IBS (chief complaint) Irritable bowel syndrome with diarrhea 1 Jerrell Gillette. [address] [place], [place], [address], [place]. tel:[phone] Referring Provider: Cody Stein, [address] [place] [address], [address] . tel:[phone] [facility]ICE [facility], [address], [place], [place], [address] , [place] tel: [phone] Judson madsen (chief complaint) Encounter for screening mammogram for malignant neoplasm of breastEssential (primary) hypertensionMixe d hyperlipidemiaMo derate persistent asthma without complicationGast roesophageal reflux disease without esophagitisAnxie tyPolycystic ovary syndromeMetaboli c syndromeOsteoart hritis of spine with radiculopathy, cervical regionLumbosacra l radiculopathy due to degenerative joint disease of spineSpondylosis Unilateral primary osteoarthritis, left kneeIrritable bowel syndrome with diarrheaUrinary incontinence, unspecified typeInsomnia, unspecified typeCurrent smokerObesity (BMI 30.0-34.9)Opioid use 1 Judson Ross. [address] [place], [place], [address], [place]. tel:[phone] Referring Provider: Cody Stein, [address] [place], [address] . tel:[phone] [facility]ICE [facility], [address], [place], [place], [address] , [place] tel:[phone] Judson madsen (chief complaint) Essential (primary) hypertensionMixe d hyperlipidemiaGa stroesophageal reflux disease without esophagitisModer ate persistent asthma without complicationIrri table bowel syndrome with diarrheaInsomnia , unspecified typeLumbosacral radiculopathy due to degenerative joint disease of spineSpondylosis Osteoarthritis of spine with radiculopathy, cervical regionUnilateral primary osteoarthritis, left kneePolycystic ovary syndromeMetaboli c syndromeObesity (BMI 30.0-34.9)Hernánen t smokerUrinary incontinence, unspecified typeEncntr screen mammogram for malignant neoplasm of breastOpioid useNon-seasonal allergic rhinitis due to pollenAnxiety 1 Judson Ross. [address] [facility], [place], [place], [address], . [phone] Referring Provider: Cody Stein, [address] [facility], [place], [address] . tel:[phone] [employer], [address], [place], [place], [address] , tel: [phone] Judson No Information 1 Judson Ross. [address] [facility], [place], [place], [address], . tel:[phone] [employer], [address], [place], [place], [address] , tel: [phone] [facility] Urinary incontinence, unspecified type 1 Judson Ross. [address] [facility], [place], [place], [address], . tel:[phone] OFFICE EWOCD-JWB-RI [facility], [address], [place], [place], [address] , tel: [phone] Judson MMP (chief complaint) Essential (primary) hypertensionMixe d hyperlipidemiaMe tabolic syndromeLeukocyt osis, unspecified typeModerate persistent asthma without complicationGast roesophageal reflux disease, esophagitis presence not specifiedIrritab le bowel syndrome with diarrheaInsomnia , unspecified typeCurrent smokerPolycystic ovary syndromeObesity (BMI 30.0-34.9)Unilat eral primary osteoarthritis, left kneeLumbosacral radiculopathy due to degenerative joint disease of spineSpondylosis Osteoarthritis of spine with radiculopathy, cervical regionSciatica, unspecified lateralityFatigu e, unspecified typeCarpal tunnel syndrome of right wristPrimary osteoarthritis of left foot 1 Judson Ross. [address] [facility], [place], [place], [address], [place]. tel:[phone] Referring Provider: Cody Stein, [address] [place] [address] B, [place], [address] . tel:[phone] OFFICE QDKDI-AIU-RV [facility], [address], [place], [place], [address] , [place] tel: [phone] Judson mmp (chief complaint) Essential (primary) hypertensionMixe d hyperlipidemiaMo derate persistent asthma without complicationGast roesophageal reflux disease, esophagitis presence not specifiedIrritab le bowel syndrome with diarrheaInsomnia , unspecified typeCurrent smokerPolycystic ovary syndromeObesity (BMI 30.0-34.9)Unilat eral primary osteoarthritis, left kneeLumbosacral radiculopathy due to degenerative joint disease of spineSpondylosis Osteoarthritis of spine with radiculopathy, cervical regionSciatica, unspecified lateralityMetabo lic syndromeLeukocyt osis, unspecified typeFatigue, unspecified typeBody mass index (BMI) 32.0-32.9, adultCarpal tunnel syndrome of right wrist 1 Judson Ross. [address] [place] [address], [place], [place], [address], [place]. tel:[phone] Referring Provider: Cody Stein, [address] [place] [address], [place], [address] . tel:[phone] OFFICE DAIQB-DYD-NJ [facility], [address], [place], [place], [address] , [place] tel:[phone] [facility] Diarrhea (chief complaint) Irritable bowel syndrome with diarrhea 0 Jerrell Gillette. [address] [place], [place], [address], [place]. tel:[phone] Referring Provider: Cody Stein, [address] [place] [address] B, [place], [address] . tel:[phone] OFFICE OTXXI-FBI-FE [facility], [address], [place], [place], [address] , [place] tel:[phone] [facility] Diarrhea (chief complaint) Irritable bowel syndrome with diarrhea 0 0 Jerrell Leta. [address] [place], [place], [address], [place]. tel:[phone] Referring Provider: Cody Stein, [address] [place] [address], [place], [address] . tel:[phone] OFFICE IPBLG-KRZ-HY [facility], [address], [place], [place], [address] , [place] tel: [phone] Judson mmp (chief complaint) Unilateral primary osteoarthritis, left kneeLumbosacral radiculopathy due to degenerative joint disease of spineSpondylosis Osteoarthritis of spine with radiculopathy, cervical regionSciatica, unspecified lateralityMetabo lic syndromeLeukocyt osis, unspecified typeEssential (primary) hypertensionMode rate persistent asthma without complicationMixe d hyperlipidemiaIr ritable bowel syndrome with diarrheaGastroes ophageal reflux disease, esophagitis presence not specifiedInsomni a, unspecified typeCurrent smokerFatigue, unspecified typePolycystic ovary syndromeObesity (BMI 30.0-34.9)Gangli on cyst 0 Judson Ross. [address] [place] [address], [place], [place], [address], [place]. tel:[phone] Referring Provider: Cody Stein, [address] [place] [address], [place], [address] . tel:[phone] [facility], [address], [place], [place], [address] , [place] tel:[phone] Judson weight check (chief complaint) No Information 0 Judson Ross. [address] [place], [place], [address], [place]. tel:[phone] Referring Provider: Cody Stein, [address] [facility], [place], [address] . tel:[phone] OFFICE EXGCB-VXG-PN [facility], [address], [place], [place], [address] , [place] tel: [phone] Judson mmp (chief complaint) Unilateral primary osteoarthritis, left kneeLumbosacral radiculopathy due to degenerative joint disease of spineSpondylosis Osteoarthritis of spine with radiculopathy, cervical regionSciatica, unspecified lateralityMetabo lic syndromeLeukocyt osis, unspecified typeEssential (primary) hypertensionMode rate persistent asthma without complicationMixe d hyperlipidemiaIr ritable bowel syndrome with diarrheaGastroes ophageal reflux disease, esophagitis presence not specifiedInsomni a, unspecified typeCurrent smokerFatigue, unspecified typePolycystic ovary syndromeObesity (BMI 30.0-34.9) 0 Judson Ross. [address] [place] [address] [place], [address], . tel:[phone] Referring Provider: Cody Stein, [address] [place] [address] B, [place], [address] . tel:[phone] PREVENTATIVE -EST: 40-64 [facility], [address], [place], [place], [address] , tel: [phone] Judson mmp (chief complaint) Unilateral primary osteoarthritis, left kneeLumbosacral radiculopathy due to degenerative joint disease of spineOsteoarthri tis of spine with radiculopathy, cervical regionMetabolic syndromeLeukocyt osis, unspecified typeEssential (primary) hypertensionMode rate persistent asthma without complicationMixe d hyperlipidemiaSc iatica, unspecified lateralityIrrita ble bowel syndrome with diarrheaGastroes ophageal reflux disease, esophagitis presence not specifiedInsomni a, unspecified typeCurrent smokerFatigue, unspecified typeWeight lossPolycystic ovary syndromePhysical exam 0 Judson Ross. [address] [place] [address] B, [place], [place], [address], . tel:[phone] Referring Provider: Cody Stein, [address] [place] [address] B, [place], [address] . tel:[phone] OFFICE EGBNG-VWE-BZ [facility], [address], [place], [place], [address] , tel: [phone] Judson WWE/PAP (chief complaint) Cervical cancer screeningPCOS (polycystic ovarian syndrome)Hirsuti smSexual dysfunction 0 Jim Camp. [address] [place], [place], [address], . tel:[phone] Referring Provider: Cody Stein, [address] [place] [address], [address] . tel:[phone] BP OFFICE/OUTPA TIENT VISIT EST [facility], [address], [place], [place], [address] , [place] tel: [phone] Judson Essential (primary) hypertension 0 Judson Ross. [address] [place] [address], [address], . tel:[phone] Referring Provider: Cody Stein, [address] [place] [address], [address] . tel:[phone] OFFICE FODMF-SDA-BY [facility], [address], [place], [place], [address] , [place] tel: [phone] Judson MMP (chief complaint) Unilateral primary osteoarthritis, left kneeLateral epicondylitis of right elbowLumbosacral radiculopathy due to degenerative joint disease of spineOsteoarthri tis of spine with radiculopathy, cervical regionMetabolic syndromeLeukocyt osis, unspecified typeEssential hypertensionMixe d hyperlipidemiaSc iatica, unspecified lateralityIrrita ble bowel syndrome with diarrheaGastroes ophageal reflux disease, esophagitis presence not specifiedInsomni a, unspecified typeCurrent smokerEncntr screen mammogram for malignant neoplasm of breastModerate persistent asthma without complication 9 Judson Ross. [address] [place] [address], [id number], . tel:[phone] Referring Provider: Cody Stein, [address] [place] [address], [address] . tel:[phone] [facility], [address], [place], [place], [address] , tel: [phone] Judson Unilateral primary osteoarthritis, left knee Sep-3 0- 9 Judson Ross. [address] [place], [place], [address], . tel:[phone] Referring Provider: Cody Stein, [address] [facility], [place], [address] . tel:[phone] [facility], [address], [place], [place], [address] , [place] tel: [phone] Judson No Information Sep-2 3 9 Judson Ross. [address] [place], [place], [address], . tel:[phone] Referring Provider: Cody Stein, [address] [place], [address] . tel:[phone] OFFICE FQWOJ-XIY-EX PANDED [facility], [address], [place], [place], [address] , tel: [phone] Judson *depressio n (chief complaint) Current moderate episode of major depressive disorder without prior episodeUnilatera l primary osteoarthritis, left knee Sep-1 9 Jim Camp. [address] [place], [place], [address], . tel:[phone] Referring Provider: Cody Stein, [address] [facility], [place], [address] . tel:[phone] [facility], [address], [place], [place], [address] , [place] tel: [phone] Judson Unilateral primary osteoarthritis, left knee Sep-1 9 Judson Ross. [address] [place], [place], [address], . tel:[phone] Referring Provider: Cody Stein, [address] [facility], [place], [address] . tel:[phone] [facility], [address], [place], [place], [address] , [place] tel: [phone] [facility] Unilateral primary osteoarthritis, left knee Sep-0 9-201 9 Judson Ross. [address] [facility], [place], [place], [address], [place]. tel:[phone] Referring Provider: Cody Stein, [address] [place] [address], [place], [address] . tel:[phone] [facility], [address], [place], [place], [address] , [place] tel: [phone] [facility] Unilateral primary osteoarthritis, left knee Sep-0 5-201 9 Judson Ross. [address] [place], [place], [address], [place]. tel:[phone] Referring Provider: Cody Stein, [address] [place] [address], [address] . tel:[phone] [facility] [address], [place], [place], [address] , [place] tel: [phone] [facility] Right arm pain Sep-0 4-201 9 Judson Ross. [address] [facility], [place], [place], [address], [place]. tel:[phone] [facility], [address], [place], [place], [address] , [place] tel: [phone] [facility]oper Unilateral primary osteoarthritis, left knee Aug-1 9-201 9 Judson Ross. [address] [facility], [place], [place], [address], [place]. tel:[phone] Referring Provider: Cody Stein, [address] [facility], [place], [address] . tel:[phone] [facility] [address], [place], [place], [address] , [place] tel: [phone] [facility] Unilateral primary osteoarthritis, left knee Aug-0 5-201 9 Judson Ross. [address] [place], [place], [address], [place]. tel:[phone] Referring Provider: Cody Stein, [address] [place] [address] B, [place], [address] . tel:[phone] OFFICE AJBMA-KJG-VV [facility], [address], [place], [place], [address] , tel:[phone] Judson mmp (chief complaint) Lateral epicondylitis of right elbowLumbosacral radiculopathy due to degenerative joint disease of spineOsteoarthri tis of spine with radiculopathy, cervical regionMetabolic syndromeScreenin g for colon cancerOsteoarthr itis of left knee, unspecified osteoarthritis typeLeukocytosis , unspecified typeEssential hypertensionMixe d hyperlipidemiaSc iatica, unspecified lateralityIrrita ble bowel syndrome with diarrheaGastroes ophageal reflux disease, esophagitis presence not specifiedInsomni a, unspecified typeCurrent smokerModerate persistent asthma without complication Judson Ross. [address] [place] [address] B, [place], [place], [address], [place]. tel:[phone] Referring Provider: Cody Stein, [address] [place] [address] B, [place], [address] . tel:[phone] [facility] [address], [place], [place], [address] , [place] tel:[phone] Judson Chronic pain of left kneeOther chronic pain 9 [facility]. [address] [place] [address], [address] [place] [address], [address], [place]. tel:[phone] [facility] [address], [place], [place], [address] , [place] tel:[phone] Judson Left knee pain. (chief complaint) Chronic pain of left knee 9 [facility]. [address] [place] [address], [address] [facility], [place], [place], [address], [place]. tel:[phone] Referring Provider: Cody Stein, [address] [place] [address] B, [place], [address] . tel:[phone] [facility] [address], [place], [place], [address] , [place] tel: [phone] Judson URI_ (chief complaint) Moderate persistent asthma with acute exacerbation Erasmo Cheney. [address] [place] [address], [address], [place], [place], [address], [place]. tel:[phone] Referring Provider: Cody Stein, [address] [facility] B, [place], [address] . tel:[phone] [facility], [address], [place], [place], [address] , [place] tel: [phone] Judson Lumbosacral radiculopathy due to degenerative joint disease of spineOsteoarthri tis of spine with radiculopathy, cervical regionOsteoarthr itis of multiple joints, unspecified osteoarthritis typeType 2 diabetes mellitus without complication, unspecified terminal carman insulin use statusEssential hypertensionMixe d hyperlipidemiaSc iatica, unspecified lateralityIrrita ble bowel syndrome with diarrheaGastroes ophageal reflux disease, esophagitis presence not specifiedInsomni a, unspecified typeCurrent smokerAsthma, unspecified asthma severity, unspecified whether complicated, unspecified whether persistentImmuni zation refusedLateral epicondylitis of right elbow Judson Ross. [address] [facility] [place], [address], [place]. tel:[phone] Referring Provider: Cody Stein, [address] [facility], [place], [address] . tel:[phone] [facility], [address], [place], [place], [address] , [place] tel: [phone] Judson Lumbosacral radiculopathy due to degenerative joint disease of spineOsteoarthri tis of spine with radiculopathy, cervical regionOsteoarthr itis of multiple joints, unspecified osteoarthritis typeType 2 diabetes mellitus without complication, unspecified halfway insulin use statusEssential hypertensionMixe d hyperlipidemiaSc iatica, unspecified lateralityIrrita ble bowel syndrome with diarrheaGastroes ophageal reflux disease, esophagitis presence not specifiedInsomni a, unspecified typeCurrent smokerAsthma, unspecified asthma severity, unspecified whether complicated, unspecified whether persistent 8 Judson Ross. [address] [place], [place], [address], . tel:[phone] Referring Provider: Cody Stein, [address] [place], [address] . tel:[phone] [facility], [address], [place], [place], [address] , tel: [phone] Judson Lumbosacral radiculopathy due to degenerative joint disease of spineOsteoarthri tis of spine with radiculopathy, cervical regionOsteoarthr itis of multiple joints, unspecified osteoarthritis typeType 2 diabetes mellitus without complication, unspecified terminal carman insulin use statusEssential hypertensionMixe d hyperlipidemiaSc iatica, unspecified lateralityIrrita ble bowel syndrome with diarrheaGastroes ophageal reflux disease, esophagitis presence not specifiedInsomni a, unspecified typeCurrent smokerAsthma, unspecified asthma severity, unspecified whether complicated, unspecified whether persistentFatigu e, unspecified typeArthralgia of both kneesLow vitamin D level 8 Judson Ross. [address] [place], [place], [address], . tel:[phone] Referring Provider: Cody Stein, [address] [place], [address] . tel:[phone] [facility], [address], [place], [place], [address] , tel: [phone] Judson Lumbosacral radiculopathy due to degenerative joint disease of spineOsteoarthri tis of spine with radiculopathy, cervical regionOsteoarthr itis of multiple joints, unspecified osteoarthritis typeType 2 diabetes mellitus without complication, unspecified halfway insulin use statusEssential hypertensionMixe d hyperlipidemiaSc iatica, unspecified lateralityIrrita ble bowel syndrome with diarrheaGastroes ophageal reflux disease, esophagitis presence not specifiedInsomni a, unspecified typePainful menstrual flowCurrent smokerAsthma, unspecified asthma severity, unspecified whether complicated, unspecified whether persistentEye lesionChronic sinusitis, unspecified location 8 Judson Ross. [address] [place], [place], [address], . tel:[phone] Referring Provider: Cody Stein, [address] [facility], [place], [address] . tel:[phone] [facility], [address], [place], [place], [address] , tel: [phone] Judson Type 2 diabetes mellitus without complication, unspecified terminal carman insulin use statusHypertensi ve heart disease without heart failureMixed hyperlipidemiaPr imary osteoarthritis of both hipsSpondylosis of cervical region without myelopathy or radiculopathySci atica, unspecified lateralityIrrita ble bowel syndrome with diarrheaGastroes ophageal reflux disease, esophagitis presence not specifiedInsomni a, unspecified typePainful menstrual flowCurrent smokerGanglion cystRight wrist tendonitisRight carpal tunnel syndromeLumbosac ral radiculopathy due to degenerative joint disease of spine Judson Ross. [address] [place], [place], [address], . tel:[phone] Referring Provider: Cody Stein, [address] [place], [address] . tel:[phone] [facility] [address], [place], [place], [address] , tel: [phone] Judson Type 2 diabetes mellitus without complication, unspecified terminal carman insulin use statusHypertensi ve heart disease without heart failureInsomnia, unspecified typePrimary osteoarthritis of both hipsSpondylosis of cervical region without myelopathy or radiculopathyPai nful menstrual flowIrritable bowel syndrome with diarrheaCurrent smokerInfluenza vaccination declinedGastroes ophageal reflux disease, esophagitis presence not specifiedSciatic a, unspecified lateralityStomac h painMedication monitoring encounter Judson Ross. [address] [place] [address], [address], . tel:[phone] Referring Provider: Cody Stein, [address] [place] [address], [address] . tel:[phone] [facility], [address], [place], [place], [address] , tel: [phone] [facility] Primary osteoarthritis of both hipsSpondylosis of cervical region without myelopathy or radiculopathyHyp ertensive heart disease without heart failureType 2 diabetes mellitus without complication, unspecified halfway insulin use statusInsomnia, unspecified typeIrritable bowel syndrome with diarrheaPainful menstrual flowCurrent smoker 7 Judson Ross. [address] [place] [address], [address], . tel:[phone] Referring Provider: Cody Stein, [address] [place] [address], [address] . tel:[phone] [facility], [address], [place], [place], [address] , tel: [phone] Judson Primary osteoarthritis of both hipsSpondylosis of cervical region without myelopathy or radiculopathyHyp ertensive heart disease without heart failureType 2 diabetes mellitus without complication, unspecified terminal carman insulin use statusInsomnia, unspecified typeIrritable bowel syndrome with diarrheaMixed hyperlipidemia 7 Judson Ross. [address] [place] [address], [address], . tel:[phone] Referring Provider: Cody Stein, [address] [place] [address], [address] . tel:[phone] [facility], [address], [place], [place], [address] , tel:[phone] [place] Primary osteoarthritis of both hipsSpondylosis of cervical region without myelopathy or radiculopathyHyp ertensive heart disease without heart failureType 2 diabetes mellitus without complication, unspecified halfway insulin use statusInsomnia, unspecified type 6 Judson Ross. [address] [place] [address] B, [place], [place], [address], [place]. tel:[phone] Referring Provider: Cody Stein, [address] [facility], [place], [address] . tel:[phone] [facility], [address], [place], [place], [address] , [place] tel:[phone] Judson Strain of left hip, initial encounterLeft shoulder strain, initial encounter Sep- 2201 6 Reno Cris. [address] [facility], [place], [place], [address]. tel:[phone] Referring Provider: Cody Stein, [address] [place] [address], [place], [address] . tel:[phone] [facility], [address], [place], [place], [address] , [place] tel:[phone] Judson Chronic obstructive pulmonary disease, unspecifiedOther allergic rhinitisMixed hyperlipidemiaOt her fatigueInsomnia, persistentLocali zed osteoarthritis of lumbar spine Jan-0 6 Judson Ross. [address] [facility], [place], [place], [address], [place]. tel:[phone] Referring Provider: Cody Stein, [address] [facility], [place], [address] . tel:[phone] [facility], [address], [place], [place], [address] , [place] tel:[phone] Judson Sciatica, unspecified lateralityCoughC hronic obstructive pulmonary disease, unspecifiedOther allergic rhinitisMorbid obesity, unspecified obesity type Nov- 5 Judson Ross. [address] [facility], [place], [place], [address], [place]. tel:[phone] Referring Provider: Cody Stein, [address] [facility], [place], [address] . tel:[phone] Family History Family Member Type Diagnosis Age At Onset No Information Immunizations Vaccine Date Status Comments [employer]) COVID19 Vaccine, 0.3mL per dose, 2 doses, administered 21 days apart refused Note: per pt, she shea d reaction to 1st vaccine. ; Source: New Immunization Record COVID-19, mRNA, LNP-S, PF, 3 0 mcg/0.3 mL dose administered Source: Other Provid er Tdap refused Source: New Imm unization Record Tdap refused Source: New Imm unization Record Payers Payer name Insurance type Covered constitution party ID Authorantonio ramirez(s) BCBS ACCESS CHOICE BL [id number] BCBS ACCESS CHOICE BL [id number] BC[employer] INACTIVE OUT OF STATE [id number] [employer] INACTIVE OUT OF STATE [id number] Social History Type Description Quantity Date Captured Comments Alcohol Use Details Unknown Caffeine Use Details Unknown Tobacco Use Status Smoking Status No Information Sex Female Chief Complaint And Reason For Visit No Information Reason For Referral Reason For Referral No Information Plan Of Treatment Date Type Action Status Goal Dietary manageme nt education, guidance, and counseling completed Referral Ordered: Dr. Елена Melendez -Pain Medicine (related to Other spondylosis with radiculopathy, lumbosacral region) ordered Referral Referred To: Dr. Елена Melendez Ordered: Referrals: Pain Medicine. Dr. Елена Melendez. Evaluation/diagnostic/treatment - Level 3 ordered Referral Ordered: MRI OF NECK, SPINE W/O CONTRAST Appointment date/timeframe: 09/22/2022 ordered Referral Ordered: EKG (ELECTROCARDIOGRAM) ordered Referral Ordered: SCREENING MAMMOGRAM (CAD) Bilateral breast ordered Referral Ordered: X-RAY EXAM OF FOREARM, A/P & LAT Right arm ordered Referral Ordered: MRI knee left wo contrast Left knee Appointment date/timeframe: 06/12/2019 ordered Patient Education Back Stretches: Exercis es completed Future Order: Radiology Order SC REENING MAMMOGRAM (CAD) Bilateral breast ([id number]), Body Site: breast, Sent on: Sent Future Order: Radiology Order SC REENING MAMMOGRAM (CAD) Bilateral breast ([id number]), Body Site: breast, Sent on: Sent Future Order: Radiology Order SC REENING MAMMOGRAM (CAD) Bilateral breast ([id number]), Body Site: breast, Sent on: Sent Future Order: Lab Order Urine Cu lture, Routine ([id number]), Collected on: , Sent on: Sent Future Order: Lab Order UA- Dips tick (office Lab) ([id number]), Collected on: Ordered Future Order: Radiology Order SC REENING MAMMOGRAM (CAD) Bilateral breast ([id number]), Body Site: breast, Sent on: Sent History Of Present Illness Encounter Date Complaint History Of Prese nt Illness mmp HTN: Pt is manag ing BP through diet and lifestyle changes. No reported CP, SOB, lightheadedness, or edema. HLD: Med compliant. No reported myalgias.Asthma: No breathing concerns.GERD: No recent flares.Anxiety: Pt is med compliant. Pt reports that she has been dealing with increased anxiety. States she lost her job after having surgery. No SI/HI.PCOS: No complaints. Metabolic syndrome: No hypo/hyperglycemic sx.Spondylosis/OA/DDD: Pt is med compliant. No reported CP, SOB, lightheadedness, or edema. Carpal tunnel: No complaints.IBS: Med compliant. No concerns.Insomnia: No complaints. Smoker: No change in habits reported. mmp HTN: Pt is manag ing BP through diet and lifestyle changes. No reported CP, SOB, lightheadedness, or edema. HLD: Med compliant. No reported myalgias.Asthma: No breathing concerns.GERD: No recent flares.Anxiety: Pt is med compliant. Mood is stable. No SI/HI.PCOS: No complaints. Metabolic syndrome: No hypo/hyperglycemic sx.Spondylosis/OA/DDD: Pt states she is doing well. Pt is still following up with pain management. She really likes her doctor. No new or worsening symptoms. Carpal tunnel: No complaints.IBS: Med compliant. No concerns.Insomnia: No complaints. Obesity: No change in diet or exercise.Smoker: No change in habits reported.Tinea Corporis: Pt complains that she has had a rash under both her arms. States she has had it for a while and it has not improved. No other compliants. mmp HTN: Pt is manag ing BP through diet and lifestyle changes. No reported CP, SOB, lightheadedness, or edema. HLD: Med compliant. No reported myalgias.Asthma: No breathing concerns.GERD: No recent flares.Anxiety: Pt is med compliant. Mood is stable. No SI/HI.PCOS: No complaints. Metabolic syndrome: No hypo/hyperglycemic sx.Spondylosis/OA/DDD: Pt states she is doing well. She has a new pain management doctor who she really likes. Her pain medication was changed from hydrocodone to oxycodone, which is doing a lot better with pain control. No other new or worsening symptoms. Carpal tunnel: No complaints.IBS: Med compliant. No concerns.Insomnia: No complaints. Obesity: No change in diet or exercise.Smoker: No change in habits reported. IBS D Comments: review ed chart and medications, viberzi working well twice a day, Dicyclomine as needed, content how doing and here for renewal and follow up, no fmhx no scope hx. reviewed labs. no complaints. reviewed diet practices mmp HTN: Pt states juliana mcneil started her on metoprolol, but she stopped taking it in the hospital because her BP dropped to 80s/60s. She checks BP at home periodically but cannot recall the numbers. No CP or edema reported.HLD: Med compliant. No reported myalgias.Asthma: No breathing concerns.GERD: No recent flares.Anxiety: Pt states she ran out of the buspirone. Moods stable. No SI/HI. PCOS: No complaints. Metabolic syndrome: No hypo/hyperglycemic sx.Spondylosis/OA/DDD: Med compliant. Pt states she still has some neck pain, but her pain is significantly better. No longer has the numbness/tingling in hands. Notes still having pain in knee and back. Notes her insurance called her and will no longer pay for injections - they told her cost riddle, it would be better for her to get surgeries rather than repeated injections. No worsening sx.Carpal tunnel: No complaints.IBS: Med compliant. No concerns.Insomnia: Pt states she has difficulty falling/staying asleep. Notes only 1 hour of sleep last night. States she was given melatonin in the hospital and that did not help at all. Obesity: No change in diet or exercise.Smoker: No change in habits reported. [facility] Pre-Op Clearance : Pt is overall well today. HTN: Pt is med compliant. No reported CP, SOB, lightheadedness, or edema. HLD: Pt is med compliant. No reported myalgia or claudication. GERD: No reported flares. Asthma: No breathing concerns. Anxiety: Pt is med compliant. Mood is stable. No SI/HI. PCOS: Pt is med compliant. No complaints. Spondylosis/OA/Radiculopathy/Chronic Pain/Coccyxdynia: Pt is med compliant. No new or worsening symptoms. Urinary Incont: No other complaints. Metabolic Syndrome: Pt is managing through diet and lifestyle changes. No hyper/hypoglycemic symptoms. Insomnia: No complaints. Allergies: Pt is med compliant. No complaints. Smoker: No changes in habits. Obesity: No changes in diet or exercise habits.Abnormal EKG - Pt was upset by the news of an abnormal EKG. She has surgery scheduled for this . No other complaints. [facility] HTN: Pt is med c ompliant. No reported CP, SOB, lightheadedness, or edema. HLD: Pt is med compliant. No reported myalgia or claudication. GERD: No reported flares. Asthma: No breathing concerns. Anxiety: Pt is med compliant. Mood is stable. No SI/HI. PCOS: Pt is med compliant. No complaints. Spondylosis/OA/Radiculopathy/Chronic Pain/Coccyxdynia: Pt is med compliant. No new or worsening symptoms. Urinary Incont/UTI Symptoms: Pt reported that she is having some feelings of pressure. No other complaints. Metabolic Syndrome: Pt is managing through diet and lifestyle changes. No hyper/hypoglycemic symptoms. Insomnia: No complaints. Allergies: Pt is med compliant. No complaints. Smoker: No changes in habits. Obesity: No changes in diet or exercise habits. Follow up 42 year old evelyn qiu that presents for follow up. She has been taking Viberzi. She reports having improvement of diarrhea. She reports having rectal itching, and small amount of blood. She has tried medicated wipes. She uses dicyclomine as needed prior to heavier meals. She has been having problems with neck pain. mmp Lissa presents today with a six-week history of neck pain. States that after a month her pain was severe enough, she went to the ER 08/22/22. Patient had x-ray of neck which was normal per patient. She was given prednisone and muscle relaxers, which took the pain away. States two days after stopping the prednisone, her pain returned. States she feels okay in the morning, pain increases at the end of the day. Pain was sudden in onset, not improving. No injury. Patient states it's a sharp, stabbing pain, that radiates down her neck and into her left arm. She notes some mild numbness and tingling in hand. Patient has hydrocodone for pain, which she took for this pain and it didn't help at all. Patient took ibuprofen 800mg twice daily for one month, then took prednisone for two weeks from the ER. She has been doing home physical therapy with stretching and massage, local pressure improves pain. mmp HTN: Pt is manag ing through diet and lifestyle changes. No CP, SOB, lightheadedness, or edema. HLD: Pt is med compliant. No complaints of myalgia or claudication. GERD: Pt is managing through diet and lifestyle. No recent flares reported. METABOLIC SYNDROME: Pt is managing through diet and lifestyle. No hyper/hypoglycemic symptoms reported. ASTHMA: No breathing concerns reported. ANXIETY: Pt is med complaint. Mood is stable. No SI/HI. PCOS: No complaints. SPONDYLOSIS/OA: Pt is med compliant. No new or worsening symptoms. IBS: Pt is med complaint. No complaints. INSOMNIA: Pt states that the amitriptyline wasn't working, and that it was causing her to be very restless while sleeping. SMOKER: No change in habits reported. OBESITY: No change in diet or lifestyle changes. CARPAL TUNNEL: No Complaints. ALLERGIES: No complaints UTI symptoms/concerns mmp HTN: Currently m anaging through diet and lifestyle. No reported CP, SOB, lightheadedness or edema. HLD: Pt states med compliance. No reported myalgias or claudication. Asthma: No breathing concerns reported. GERD: No recent flares. Anxiety: Pt is med compliant. Moods stable. No SI/HI. PCOS: Pt states med compliance. No complaints. Metabolic syndrome: per lab. No complaints. Spondylosis/OA/radiculopathy: Pt is med compliant. No new or worsening symptoms. Carpal tunnel: No complaints. IBS: Pt states med compliance. No concerns regarding BMs. Urinary incontinence: No complaints. AR: Pt is med compliant. No recent flares. Insomnia: Pt states med compliance; mentions that she feels her pill is no longer working because the past 2 weeks she has laid in bed each night staring at the ceiling until she eventually falls asleep. No further complaints. Vit D def: No complaints. Current smoker: No change in habits reported. Obesity: No reported change in diet or exercise. Coccydynia: Pt states she has been experiencing severe pain in her tailbone region. Notes she had several cysts removed from that area previously and the pain is similar, however she does not feel a nodule like she has previously. She is unable to sit long due to the pain. Denies recent injuries. tena Alcaraz came in to discuss multiple medical problems both acute and chronic in nature.RHM: Pt is UTD with mammogram as of 11/2021. Pt had one covid vaccine and had a reaction and will not get another one. HTN: Currently managing through diet and lifestyle. No reported CP, SOB, lightheadedness or edema. HLD: Med compliant. No reported myalgias or claudication. Asthma: Pt is compliant with inhaler use. No breathing concerns. GERD: No recent flares. Anxiety: Pt states med compliance. Moods stable. No SI/HI. PCOS: Pt is med compliant. F/u with [employer] as scheduled. No complaints. Metabolic syndrome: per labs. No hypo/hyperglycemic symptoms. Cervical OA w/ radiculopathy/ DDD of lumbar w/ radiculopathy/ spondylosis/ OA of L knee: Pt states med compliance. . No further complaints. IBS: Pt is med compliant. No concerns regarding BMs. Urinary incontinence: No urinary concerns. Insomnia: Pt is med compliant. No sleeping concerns reported. Tobacco use: She has no desire to quit any time soon as she feels smoking helps with her anxiety. Obesity: No reported change in diet or exercise.Opioid use: Pt know risk and benefit of taking a control substance.AR: Pt complains of sinus issues and itchy watery eyes and would like something for thisMeralgia paresthetica: Pt complains today of worsening pain in left thigh and wonders what she can do to resolve it.Vit D Def: Labs ordered today. Rash The patient pres ents for Rash. This episode began gradually and has lasted several weeks. The symptom(s) are described as mild, worse and occurs continuously. Affected area(s) include both axillae. The patient describes the affected area(s) as itchy, red and scaly. The symptoms are not associated with contact with chemicals, contact with plants, new perfume and new skin soaps/lotions. Aggravating factors include sweating. Associated symptoms include erythema (skin), hyperpigmentation, pruritus and scaling. Pertinent negatives include bleeding, bleeding skin, cracking, crusting, dry skin, edema, fatigue, painful rash and urticaria. There are no other household members with similar symptoms. Relevant history negative for history of allergies, history of asthma and history of atopic dermatitis. IBS 41 year old evelyn qiu that presents for IBS. She is currently on Viberzi helps control her diarrhea. She has bowel movement daily, can be runny sometimes but most of the time is formed. Denies blood in stools. Uses dicyclomine as needed. mmp RHM: Pt states t hat she had an allergic reaction to the covid vaccine therefore did not get the second injection and needs a waiver stating that she is medically exempt, letter was written and given to pt to not get the covid vaccine due to medical complications. HTN: Currently managing through diet and lifestyle. No reported CP, SOB, lightheadedness or edema. HLD: Currently managing through diet and lifestyle. No reported myalgias or claudication. Asthma: Pt is compliant with Dulera; notes her ProAir is . No breathing concerns. GERD: No recent flares. Anxiety: Pt states med compliance. Moods stable. No SI/HI. PCOS: Pt is med compliant. F/u with [employer] as scheduled. No complaints. Metabolic syndrome: per labs. No hypo/hyperglycemic symptoms. Cervical OA w/ radiculopathy/ DDD of lumbar w/ radiculopathy/ spondylosis/ OA of L knee: Pt states med compliance. . No further complaints. Pt states that she tripped over her dog and fell hard which hurt her back and is requesting an injection in the back today. IBS: Pt is med compliant; notes that she has difficulty getting access to her Phenohytro. No concerns regarding BMs. Urinary incontinence: No urinary concerns. Insomnia: Pt is med compliant. No sleeping concerns reported. Tobacco use: Pt states that she smokes 1/2 ppd now and only 5-6 cigarettes daily when she works in person. She has no desire to quit any time soon as she feels smoking helps with her anxiety. Obesity: No reported change in diet or exercise.Opioid use: Pt know risk and benefit of taking a control substance. Screening mammogram: Order given in the office today. mmp HTN: Currently m anaging through diet and lifestyle. No reported CP, SOB, lightheadedness or edema. HLD: Currently managing through diet and lifestyle. No reported myalgias or claudication. Asthma: Pt is compliant with Dulera; notes her ProAir is . No breathing concerns. GERD: No recent flares. Anxiety: Pt states med compliance. Moods stable. No SI/HI. PCOS: Pt is med compliant. F/u with [employer] as scheduled. No complaints. Metabolic syndrome: per labs. No hypo/hyperglycemic symptoms. Cervical OA w/ radiculopathy/ DDD of lumbar w/ radiculopathy/ spondylosis/ OA of L knee: Pt states med compliance. She states she has been dealing with this for several years and it feels that it is worsening. She saw an ortho previously and refuses to go back to him because she feels it was rude and did not take her seriously. Notes the pain is 7/10 as of right now. She states the hydrocodone does help with the pain, but she would like to have the knee checked further to see how much it has worsened. She states she did PT before and did not get much relief. She also received 3 injections for her knee by ortho and did not get any relief either. No further complaints. IBS: Pt is med compliant; notes that she has difficulty getting access to her Phenohytro. No concerns regarding BMs. Urinary incontinence: No urinary concerns. Insomnia: Pt is med compliant. No sleeping concerns reported. AR: Pt is med compliant. Notes that since the spring, she has been getting intermittent sinus HAs - at least 3 times weekly. No further complaints. Tobacco use: Pt states that she smokes 1/2 ppd now and only 5-6 cigarettes daily when she works in person. She has no desire to quit any time soon as she feels smoking helps with her anxiety. Obesity: No reported change in diet or exercise. MMP Lissa Muñoz came in for multiple problems today both acute and chronic. RHM: Pt has not gotten the Covid vaccine yet but will schedule an appointment for one upon leaving the office today. Elevated White Count: Per lab hx. No associated symptoms.Metabolic Syndrome: Pt states med compliance. No reports of visual changes, nails changes, or numbness/tingling in the extremities. HTN: No reports of SOB, CP, lightheadedness, or SHEA. HLD: Pt continues to work on healthy, low-fat diet and exercise.IBS: Pt reports no other associated symptoms today.GERD: Pt states med compliance. No recent flare ups.Insomnia: Pt states med compliant. No new complaints.Tobacco Use: No reports of changes in tobacco use.Fatigue: Pt reports no fatigue todayPolycystic Ovary Syndrome: Pt reports that she is following up with OBGYN as scheduled. Asthma: Pt states no new symptoms.Obesity: Pt states med compliant and reports no recent changes in diet/exercise. Pt has gained 6 lbs since last office visit. Carpal Tunnel, R Hand: Pt reports no new symptoms today. Pt reports she had carpal tunnel surgery on 03-04-21 and has a follow up appointment with Dr. Isabel on 03-11-21. Lumbosacral Radiculopathy: Pt reports her pain symptoms are unchanged.OA of the spine/knee/foot: Pt states med compliance. Pt reports that her symptoms are unchanged. Pt reports that she is having some slight lateral left foot edema secondary to knee pain/issues. Spondylosis/Sciatica: Pt reports that her pain is unchanged. mmp Lissa Muñoz came in for multiple problems today both acute and chronic. Pt reports her L knee has been bothering her badly, and she is trying not to cry when speaking about it. She said if she had the option between being on pain meds and surgery, she would choose surgery.Elevated White Count: Per lab hx. No associated symptoms.Metabolic Syndrome: Pt states med compliance. No reports of visual changes, nails changes, or numbness/tingling in the extremities. HTN: No reports of SOB, CP, lightheadedness, or SHEA. HLD: Pt continues to work on healthy, low-fat diet and exercise.IBS: Pt reports no other associated symptoms today. Pt reports she is currently on Viberzi, which has been a miracle pill for her. She follows with a nurse practitioner for this, but she cannot remember her name.GERD: Pt states med compliance. No recent flare ups.Insomnia: Pt states med compliant. No new complaints.Tobacco Use: No reports of changes in tobacco use.Fatigue: Pt reports no fatigue todayPolycystic Ovary Syndrome: Pt reports that she is following up with OBGYN as scheduled. Asthma: Pt states no new symptoms.Obesity: Pt states med compliant and reports no recent changes in diet/exercise.Carpal Tunnel, R Hand: Pt reports she has been wearing a brace nightly for about 4 weeks. She follows with Dr. Tracy (spelling?), hand surgeon at [facility]. Unilateral Primary Arthritis: Pt reports her knee symptoms are unchanged. She is interested in increasing her hydrocodone.Lumbosacral Radiculopathy: Pt reports her pain symptoms are unchanged. She is interested in increasing her hydrocodone.OA: Pt states med compliance. Pt reports that her knee symptoms are unchanged. She is interested in increasing her hydrocodone.Spondylosis/Sciatica: Pt reports that her back pain is unchanged. She is interested in increasing her hydrocodone. Diarrhea (comments) 40 year old female that presents for follow up. She was started on Viberzi for diarrhea. She has been taking for past month. Denies constipation, abdominal pain, and blood in stools. Diarrhea Nov-30-2020 Diarrhea Diarrhea (comments) 40 year old female that presents for diarrhea. Denies family hx of IBD and colon cancer. Has had for several months. Will have pain before has BM then will get relief of pain. Will go 5-6 times per day. She is taking Donnatol and helps some, denies blood in stools. Denies weight loss. Denies changes in medication or doses of medications. Donnatol has worked in the past and is not helping as much as had in the past. Denies changes in anxiety or stress. 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 Has not tried otc diarrhea mediations. Has tried modifying diet. mmp Lissa Muñoz came in for an annual physical exam. She reports that she is feeling well overall.Elevated white count: Pt has no new symptoms. Metabolic syndrome: She is compliant with metformin daily. No reports of visual changes, nails changes, or numbness/tingling in the extremities. HTN: No reports of SOB, CP, lightheadedness, or SHEA. OA: Compliant with current treatment regimen. Pt reports that her knee is hurting. Spondylosis/Sciatica: Pt reports that her back pain is unchanged. HLD: Pt continues to work on healthy, low-fat diet and exercise.IBS: Pt reports no other associated symptoms today.GERD: She is compliant with Protonix and reports no worsening heartburn symptoms. Insomnia: Pt reports no change in sleep symptoms today and is compliant with current treatment plan.Tobacco use: No reports of changes in tobacco use.Fatigue: Pt reports no fatigue todayPolycystic ovary syndrome: Pt reports that she is following up with OBGYN as scheduled. Unilateral Primary Arthritis: Pt reports her knee symptoms are unchanged. Lumbosacral radiculopathy: Pt reports her pain symptoms are unchanged. Asthma: Pt states no new symptoms.Obesity: BMI is greater than 31.Ganglion Cyst: Pt has a cyst on her right hand that she will have removed on Sunday. weight check mmp Lissa Muñoz came in for an annual physical exam. She reports that she is feeling well overall.Elevated white count: Pt has no new symptoms. Metabolic syndrome: She is compliant with metformin daily. No reports of visual changes, nails changes, or numbness/tingling in the extremities. HTN: No reports of SOB, CP, lightheadedness, or SHEA. OA: Compliant with current treatment regimen. Pt reports that her knee is hurting. Spondylosis/Sciatica: Pt reports that her back is hurting badly. HLD: Pt continues to work on healthy, low-fat diet and exercise.IBS: Pt reports no other associated symptoms today.GERD: She is compliant with Protonix and reports no worsening heartburn symptoms. Insomnia: Pt reports no change in sleep symptoms today and is compliant with current treatment plan.Tobacco use: No reports of changes in tobacco use.Fatigue: Pt reports some fatigue todayPolycystic ovary syndrome: Pt reports that she is following up with OBGYN as scheduled. Unilateral Primary Arthritis: Pt states no new symptoms. Lumbosacral radiculopathy: Pt has no new complaints. Asthma: Pt states no new symptoms.Obesity: BMI is greater than 33. mmp Lissa Muñoz came in for an annual physical exam. She reports that she is feeling well overall.Weight loss: Pt has lost 25 pounds since the beginning of the year. She was recently informed that insurance will no longer be covering Phentermine. 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 No reports of visual changes, nails changes, or numbness/tingling in the extremities. HTN: No reports of SOB, CP, lightheadedness, or SHEA. OA: Compliant with current treatment regimen. Pt reports that her pain persists. She is upset that her orthopedist told her that she is not a candidate for orthopaedic surgery for her left kneeSpondylosis/Sciatica: Pt reports compliant with treatment plan. Pt reports that her pain persists. She does think that the gabapentin helps very much. She reports that she is doing everything she is supposed to. She reports that she constantly moves her leg around. HLD: Pt continues to work on healthy, low-fat diet and exercise.IBS: Pt reports no other associated symptoms today.GERD: She is compliant with Protonix and reports no worsening heartburn symptoms. Insomnia: Pt reports no change in sleep symptoms today and is compliant with current treatment plan.Tobacco use: No reports of changes in tobacco use.Fatigue: Pt reports some fatigue todayPolycystic ovary syndrome: Pt reports that she is following up with OBGYN as scheduled, she is having regular periods since starting metformin WWE/PAP Lissa presents today for well woman exam. She has not had pap smear since 2006. Patient has PCOS and hirsutism. Patient states she has to shave her upper lip and chin due to dark, thick hair growth on chin and lip. Patient states her hormones have been off in the past. Patient is on metformin for PCOS. Patient is smoker. Patient states she has no sexual drive, for the past two years, states she has to fake orgasms with her . MMP Lissa Muñoz came in for multiple medical problems both acute and chronic in nature.Elevated white count: Pt notes that her mother from a rare lymphoma and she had an aunt that of lymphoma. 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 No reports of visual changes, nails changes, or numbness/tingling in the extremities. HTN: No reports of SOB, CP, lightheadedness, or SHEA. OA: Compliant with current treatment regimen. Pt had a cortisone shot in her left knee and reported that eventually surgey is likely an option for her knees.Spondylosis/Sciatica: Pt reports compliant with treatment plan. Pt reports that her back pain persists and is excruciatingHLD: Pt continues to work on healthy, low-fat diet and exercise.IBS: Pt reports no other associated symptoms today.GERD: She is compliant with Protonix and reports no worsening heartburn symptoms. Insomnia: Pt reports no change in sleep symptoms today and is compliant with current treatment plan.Tobacco use: No reports of changes in tobacco use.Fatigue: Pt reports that she is always tired even after cutting back on her hours at [employer]. *depression Patient presents today with persistent feelings of depression for the past several months, doesn't seem to be improving. Patient has had three deaths in the family within the past two years, her grandmother, aunt, mother. States she has no interest or pleasure in doing things. She is also having difficulty getting to sleep and staying asleep, despite taking trazodone 50mg once daily. PHQ9 score 14. denies suicidal ideations. mmp Lissa uMñoz came in for multiple medical problems both acute and chronic in nature.Left knee pain: Pt reports compliant with treatment plan. She notes that the level of pain is stable. Pt denies any changes in activity level. Pt is using a wrap for left knee today. Pt is curious if she will need a knee replacement. She reports that the pain is so bad that she cries about it every day. Elevated white count: Pt notes that her mother recently from a rare lymphoma and she had an aunt that of lymphoma.Metabolic syndrome: She is compliant with metformin daily. No reports of visual changes, nails changes, or numbness/tingling in the extremities. HTN: No reports of SOB, CP, lightheadedness, or SHEA. OA: Compliant with current treatment regimen.Spondylosis/Sciatica: Pt reports compliant with treatment plan. Pt notes no changes in level of spondylosis pain today.HLD: Pt continues to work on healthy, low-fat diet and exercise.IBS: Pt reports having frequent bowel movements but no other associated symptoms today.GERD: She is compliant with Protonix and reports no worsening heartburn symptoms. Insomnia: Pt reports no change in sleep symptoms today and is compliant with current treatment plan.Tobacco use: No reports of changes in tobacco use.Right elbow pain: Pt reports compliant with treatment plan. She notes that the level of elbow pain is stable today. Left knee pain. The patient pres ents today for Left knee pain. She reports this has been ongoing for 2 years. She had an xray done on 06/04/2018 which showed mild enthesopathy of the insertion of the quadriceps. This is where she complains of the pain today. She describes the pain as sore, tight and achy, occasionally sharp. Worse with walking and bending. She rates the pain 8/10. She has tried a knee brace from the [employer] store and Ibuprofen with minimal relief. URI_ Patient presents today with cough, wheezing, SOB, congestion, and nasal drainage for 3 days. Denies fever, chills, or chest pain. Cough is described as productive with brown and green sputum. OTC medications tried include Zyrtec with relief. Patient typically uses Flonase nasal spray but ran out. Drinking fluids well. Denies n/v/d. Denies known sick contacts. Patient has history of asthma and uses Dulera daily as prescribed and Proair PRN. She has been using Proair for every 4-6 hours for the last 2 days with minimal symptom improvement. She continue to smoke tobacco. Reports she has cut back to 10 cigarettes daily. She denies hospitalization or ER visits for Asthma exacerbations. She was previously followed by Asthma/Allergy but stopped going due to cost. Functional Status Date Functional Assessmen t No Information Instructions Date Instruction Additional Infor sapphire Pt knows the risks o f taking a controlled substance; have previously discussed risks and benefits of use. Pt signed updated contract today; gave pt a copy. Continue hydrocodone-acetaminophen as prescribed. Will monitor. Related to Controlled substance agreement signed Stable. Will monitor through lab s. Related to Vitamin D deficiency Stable - Will monitor through la bs. Related to Leukocytosis, unspecified type [facility] S/P cholecystectomy with appendectomy. Stable. Continue current treatment plan. Will monitor. RHM: Discussed and recommended COVID-19 booster, Flu Shot and RSV vaccine. F/U in 4 months or sooner if neededCharting performed by Monica Trivedi, acting as scribe for Kam Roper.Kam Roper, : I reviewed the chart and agree with and approve of the documentation. Related to Hx of cholecystectomy Pt received order fo r screening mammogram Related to Encounter for screening mammogram for malignant neoplasm of breast Stable - Continue cu rrent treatment plan. Will monitor - notify for persisting or worsening symptoms. Related to Insomnia, unspecified type Stable - Continue cu rrent treatment with dicyclomine 20mg 1 tab TID prn and Viberzi 100mg 1 tab BID as directed. Will monitor. Notify our office if you experience changes in your BMs. Related to Irritable bowel syndrome with diarrhea Unchanged. F/u with hand surgeon as scheduled. Will monitor. Related to Carpal tunnel syndrome of right wrist S/p 2 level ACDF wit h plating. With improved symptoms. PDMP has been checked. Continue current treatment with Oxycodone 10mg-325mg 1 tab four times daily. Continue following up with Pain Management. Encourage to complete stretches and mdmte-yq-rvppxj exercises. Encouraged patient to try and lose some weight. Will monitor. Related to Other spondylosis with radiculopathy, cervical region Unchanged. Insurance will no longer pay for injections. Continue current treatment with Oxycodone 10mg-325mg 1 tab four times daily. Continue following up with Pain Management. Continue following up with Dr. Dolan, orthopaedic surgeon as scheduled. Encourage to complete stretches and bhocg-iy-pswonf exercises. Encouraged patient to try and lose some weight. Will monitor. Related to Other spondylosis with radiculopathy, lumbosacral region Unchanged. Insurance will no longer pay for injections. Continue current treatment with Oxycodone 10mg-325mg 1 tab four times daily. Continue following up with Pain Management. Encourage to complete stretches and alhfk-ds-smhhvn exercises. Encouraged patient to try and lose some weight. Will monitor. Related to Spondylosis, unspecified Unchanged. Insurance will no longer pay for injections. Continue current treatment with Oxycodone 10mg-325mg 1 tab four times daily. Continue following up with Pain Management. Encourage to complete stretches and qodem-oh-jqpznm exercises. Encouraged patient to try and lose some weight. Will monitor. Related to Unilateral primary osteoarthritis, left knee Last A1c was 6.2% on 10/2023. Encouraged patient to avoid processed sugars and to maintain a healthy, balanced low-carb diet with regular exercise. Will continue to monitor- notify if symptoms change or worsen. Related to Metabolic syndrome Stable, no recent fl are-ups. Continue current treatment plan. Avoid trigger foods. Will continue to monitor. Notify for persisting/worsening symptoms. Related to Gastroesophageal reflux disease without esophagitis Symptomatic with inc reased anxiety. INCREASE buspirone 10mg to buspirone 15mg 1 tab TID, as directed; Rx sent to pharmacy. Recommend regular exercise to help improve symptoms. Will continue to monitor. Notify for persisting/worsening symptoms. Related to Anxiety Managed per OBGYN. Juliana allen stable. Will monitor. Related to Polycystic ovary syndrome Breathing stable. Co ntinue with current inhaler regimen. Continue to monitor. Notify for breathing complaints. Related to Moderate persistent asthma without complication Controlled at 134/89 today. Continue current treatment with lisinopril 10mg 1 tab daily. Encouraged low-sodium diet and drink plenty of water daily. Will continue to monitor.Labs- CMP, CBC, A1c Related to Essential (primary) hypertension Stable - Continue cu rrent treatment with rosuvastatin 10mg 1 tab QHS as directed. Encouraged a low-cholesterol diet with regular cardiovascular exercise as tolerated. Will continue to monitor. Related to Mixed hyperlipidemia Medication management Symptomatic with alfonzo h under ADONIS arms - BEGIN treatment with Diflucan 100mg 1 tab x 10days, and Nystatin Powder, apply to rash TID; Rx sent to pharmacy. Will monitor - Notify for worsening symptoms. Related to Tinea corporis Stable - Continue cu rrent treatment with dicyclomine 20mg 1 tab TID prn and Viberzi 100mg 1 tab BID as directed. Will monitor. Notify our office if you experience changes in your BMs. Related to Irritable bowel syndrome with diarrhea Stable - Will monitor through la bs. Related to Leukocytosis, unspecified type Pt received order for mammogram today. Related to Encounter for screening mammogram for malignant neoplasm of breast Unchanged. F/u with hand surgeon as scheduled. Will monitor. Related to Carpal tunnel syndrome of right wrist Stable - Continue cu rrent treatment plan. Will monitor - notify for persisting or worsening symptoms. Related to Insomnia, unspecified type Unchanged. Insurance will no longer pay for injections. Continue current treatment with Oxycodone 10mg-325mg 1 tab four times daily. Continue following up with Pain Management. Encourage to complete stretches and vmale-op-yqgapq exercises. Encouraged patient to try and lose some weight. Will monitor. Related to Unilateral primary osteoarthritis, left knee Pt knows the risks o f taking a controlled substance; have previously discussed risks and benefits of use. Pt signed updated contract today; gave pt a copy. Continue hydrocodone-acetaminophen as prescribed. Will monitor. Related to Controlled substance agreement signed BMI of 29.4 today. E ncouraged weight loss by making healthy dietary choices and increased activity. Focus on drinking plenty of water daily and getting adequate sleep. Monitor. Related to Obesity (BMI 30.0-34.9) Unchanged. Insurance will no longer pay for injections. Continue current treatment with Oxycodone 10mg-325mg 1 tab four times daily. Continue following up with Pain Management. Continue following up with Dr. Dolan, orthopaedic surgeon as scheduled. Encourage to complete stretches and adyhg-ha-wtoyhx exercises. Encouraged patient to try and lose some weight. Will monitor. Related to Other spondylosis with radiculopathy, lumbosacral region Unchanged. Insurance will no longer pay for injections. Continue current treatment with Oxycodone 10mg-325mg 1 tab four times daily. Continue following up with Pain Management. Encourage to complete stretches and jkimp-ai-aifrqs exercises. Encouraged patient to try and lose some weight. Will monitor. Related to Spondylosis, unspecified S/p 2 level ACDF wit h plating. With improved symptoms. PDMP has been checked. Continue current treatment with Oxycodone 10mg-325mg 1 tab four times daily. Continue following up with Pain Management. Encourage to complete stretches and txumk-ka-nquteq exercises. Encouraged patient to try and lose some weight. Will monitor. Related to Other spondylosis with radiculopathy, cervical region Managed per OBGYN. C linically stable. Will monitor. Related to Polycystic ovary syndrome Stable, no recent fl are-ups. Continue current treatment plan. Avoid trigger foods. Will continue to monitor. Notify for persisting/worsening symptoms. Related to Gastroesophageal reflux disease without esophagitis Symptoms controlled. Continue treatment with buspirone 10mg 1-1.5 tab BID as directed - refilled today. Recommend regular exercise to help improve symptoms. Will continue to monitor. Notify for persisting/worsening symptoms. Related to Anxiety Last A1c was 6.0% on 02/2023. Encouraged patient to avoid processed sugars and to maintain a healthy, balanced low-carb diet with regular exercise. Will continue to monitor- notify if symptoms change or worsen. Related to Metabolic syndrome Stable - Continue cu rrent treatment with rosuvastatin 10mg 1 tab QHS as directed. Encouraged a low-cholesterol diet with regular cardiovascular exercise as tolerated. Will continue to monitor. Related to Mixed hyperlipidemia Controlled at 102/70 today. Continue current treatment with lisinopril 10mg 1 tab daily. Encouraged low-sodium diet and drink plenty of water daily. Will continue to monitor.Labs- CMP, CBC, TSH, Vit D Related to Essential (primary) hypertension Breathing stable. Co ntinue with current inhaler regimen. Continue to monitor. Notify for breathing complaints. Related to Moderate persistent asthma without complication Medication management Stable - Will monitor through la bs. Related to Leukocytosis, unspecified type Symptomatic with uri nary frequency - Will send UA for C&S. BEGIN treatment with Bactrim DS 1 tab BID x10 days. Will monitor. Related to UTI symptoms Pt received order for mammogram today. Related to Encounter for screening mammogram for malignant neoplasm of breast BMI of 31.7 today. E ncouraged weight loss by making healthy dietary choices and increased activity. Focus on drinking plenty of water daily and getting adequate sleep. Monitor. Related to Obesity (BMI 30.0-34.9) Pt knows the risks o f taking a controlled substance; have previously discussed risks and benefits of use. Pt signed updated contract today; gave pt a copy. Continue hydrocodone-acetaminophen as prescribed. Will monitor. Related to Controlled substance agreement signed Stable - Continue cu rrent treatment plan. Will monitor - notify for persisting or worsening symptoms. Related to Insomnia, unspecified type Stable - Continue cu rrent treatment with dicyclomine 20mg 1 tab TID prn and Viberzi 100mg 1 tab BID as directed. Will monitor. Notify our office if you experience changes in your BMs. Related to Irritable bowel syndrome with diarrhea Unchanged. F/u with hand surgeon as scheduled. Will monitor. Related to Carpal tunnel syndrome of right wrist Unchanged. Insurance will no longer pay for injections. Continue current treatment with Oxycodone 10mg-325mg 1 tab four times daily. Continue following up with Pain Management. Continue following up with Dr. Dolan, orthopaedic surgeon as scheduled. Encourage to complete stretches and yylbz-yi-pulyeh exercises. Encouraged patient to try and lose some weight. Will monitor. Related to Other spondylosis with radiculopathy, lumbosacral region Unchanged. Insurance will no longer pay for injections. Continue current treatment with Oxycodone 10mg-325mg 1 tab four times daily. Continue following up with Pain Management. Encourage to complete stretches and ksjuw-mo-xutusn exercises. Encouraged patient to try and lose some weight. Will monitor. Related to Unilateral primary osteoarthritis, left knee Unchanged. Insurance will no longer pay for injections. Continue current treatment with Oxycodone 10mg-325mg 1 tab four times daily. Continue following up with Pain Management. Encourage to complete stretches and iotll-wg-gtuzrh exercises. Encouraged patient to try and lose some weight. Will monitor. Related to Spondylosis, unspecified S/p 2 level ACDF wit h plating. With improved symptoms. PDMP has been checked. Continue current treatment with Oxycodone 10mg-325mg 1 tab four times daily. Continue following up with Pain Management. Encourage to complete stretches and lbfms-wy-caxglf exercises. Encouraged patient to try and lose some weight. Will monitor. Related to Other spondylosis with radiculopathy, cervical region Managed per OBGYN. Juliana linically stable. Will monitor. Related to Polycystic ovary syndrome Last A1c was 6.0% on 02/2023. Encouraged patient to avoid processed sugars and to maintain a healthy, balanced low-carb diet with regular exercise. Will continue to monitor- notify if symptoms change or worsen. Related to Metabolic syndrome Symptoms controlled. Continue treatment with buspirone 10mg 1-1.5 tab BID as directed - refilled today. Recommend regular exercise to help improve symptoms. Will continue to monitor. Notify for persisting/worsening symptoms. Related to Anxiety Breathing stable. Co ntinue with current inhaler regimen. Continue to monitor. Notify for breathing complaints. Related to Moderate persistent asthma without complication Stable - Continue cu rrent treatment with rosuvastatin 10mg 1 tab QHS as directed. Encouraged a low-cholesterol diet with regular cardiovascular exercise as tolerated. Will continue to monitor. Related to Mixed hyperlipidemia Stable, no recent fl are-ups. Continue current treatment plan. Avoid trigger foods. Will continue to monitor. Notify for persisting/worsening symptoms. Related to Gastroesophageal reflux disease without esophagitis Controlled at 127/86 today. Currently managing through diet and lifestyle. Instructed to check BP at home a few times weekly and bring numbers at next visit. If BP is consistently above 140/90, contact office and will adjust medication. Goal BP is under 140/90. Encouraged low-sodium diet and drink plenty of water daily. Will continue to monitor.Labs- BMP, H&H, A1c Related to Essential (primary) hypertension Medication management Continue Viberzi and as needed DicyclomineReviewed ideal IBS dietColonoscopy at age 45Follow up in 1 year Related to Irritable bowel syndrome with diarrhea Handout BMI of 33.4 today. E ncouraged weight loss by making healthy dietary choices and increased activity. Focus on drinking plenty of water daily and getting adequate sleep. Monitor. Related to Obesity (BMI 30.0-34.9) Symptomatic - Pt josephine led melatonin due to ineffectiveness. Discussed restarting buspirone may help with this. If not, contact office and can discuss other options. Encouraged proper sleep hygiene. Monitor. Notify for changes in sleeping pattern. Related to Insomnia, unspecified type Unchanged. F/u with hand surgeon as scheduled. Will monitor. Related to Carpal tunnel syndrome of right wrist Stable - Continue cu rrent treatment with dicyclomine 20mg 1 tab TID prn and Viberzi 100mg 1 tab BID as directed. Will monitor. Notify our office if you experience changes in your BMs. Related to Irritable bowel syndrome with diarrhea Unchanged. Insurance will no longer pay for injections. PDMP has been checked. Continue current treatment with Hydrocodone 5-325mg 1 tab TID prn, Nabumetone 750mg 1 tab BID and Gabapentin 300mg 2 tabs QID prn. Continue following up with Dr. Dolan, orthopaedic surgeon as scheduled. Encourage to complete stretches and uulab-xd-eblrkw exercises. Encouraged patient to try and lose some weight. Will monitor. Related to Unilateral primary osteoarthritis, left knee Unchanged. Insurance will no longer pay for injections. PDMP has been checked. Continue current treatment with Hydrocodone 5-325mg 1 tab TID prn, Nabumetone 750mg 1 tab BID and Gabapentin 300mg 2 tabs QID prn. Continue following up with Dr. Dolan, orthopaedic surgeon as scheduled. Encourage to complete stretches and yaqoq-zt-zvwalw exercises. Encouraged patient to try and lose some weight. Will monitor. Related to Lumbosacral radiculopathy due to degenerative joint disease of spine S/p 2 level ACDF wit h plating. With improved symptoms. PDMP has been checked. Continue current treatment with Hydrocodone 5-325mg 1 tab TID prn, Nabumetone 750mg 1 tab BID and Gabapentin 300mg 2 tabs QID prn. Continue following up with Dr. Dolan, orthopaedic surgeon as scheduled. Encourage to complete stretches and ognot-yh-slucjq exercises. Encouraged patient to try and lose some weight. Will monitor. Related to Osteoarthritis of spine with radiculopathy, cervical region Managed per OBGYN. C linically stable. Will monitor. Related to Polycystic ovary syndrome Unchanged. Insurance will no longer pay for injections. PDMP has been checked. Continue current treatment with Hydrocodone 5-325mg 1 tab TID prn, Nabumetone 750mg 1 tab BID and Gabapentin 300mg 2 tabs QID prn. Continue following up with Dr. Dolan, orthopaedic surgeon as scheduled. Encourage to complete stretches and yywsn-lc-oqdkls exercises. Encouraged patient to try and lose some weight. Will monitor. Related to Spondylosis Breathing stable. Co ntinue with current inhaler regimen. Continue to monitor. Notify for breathing complaints. Related to Moderate persistent asthma without complication Last A1c was 6.0% on 02/2023. Encouraged patient to avoid processed sugars and to maintain a healthy, balanced low-carb diet with regular exercise. Will continue to monitor- notify if symptoms change or worsen. Related to Metabolic syndrome Symptoms controlled. RESTART treatment with buspirone 10mg 1-1.5 tab BID as directed - refilled today. Recommend regular exercise to help improve symptoms. Will continue to monitor. Notify for persisting/worsening symptoms. Related to Anxiety Stable, no recent fl are-ups. Continue current treatment plan. Avoid trigger foods. Will continue to monitor. Notify for persisting/worsening symptoms. Related to Gastroesophageal reflux disease without esophagitis Stable - Continue cu rrent treatment with rosuvastatin 10mg 1 tab QHS as directed. Encouraged a low-cholesterol diet with regular cardiovascular exercise as tolerated. Will continue to monitor. Related to Mixed hyperlipidemia Controlled at 132/80 today. Pt was started on metoprolol succinate 25mg daily by cardiology, but stopped taking it when her BP dropped in the hospital to 80s/60s. Currently managing through diet and lifestyle. Instructed to check BP at home a few times weekly and bring numbers at next visit. If BP is consistently above 140/90, contact office and will adjust medication. Goal BP is under 140/90. Encouraged low-sodium diet and drink plenty of water daily. Will continue to monitor.Labs- BMP, H&H, LP, A1c, Vit D Related to Essential (primary) hypertension Gave req for screeni ng mammogram. F/U in 4 months or sooner if neededCharting performed by Monica Head, acting as scribe for Kam Roper.Kam Roper, DO: I reviewed the chart and agree with and approve of the documentation. Related to Encounter for screening mammogram for malignant neoplasm of breast Pt knows the risks o f taking a controlled substance; have previously discussed risks and benefits of use. Pt signed updated contract today; gave pt a copy. Continue hydrocodone-acetaminophen as prescribed. Will monitor. Related to Controlled substance agreement signed Medication management Per 03/06/23 EKG done in office- Possible inferior Infarct. Will refer to Cardiology for Stress Test. Pt will need to be cleared by cardiology before being medically cleared for surgery. RHM: Discussed and recommended COVID-19 booster. F/U at next scheduled appointment or sooner if neededCharting performed by Monica Trivedi, acting as scribe for Kam Roper.Kam Roper DO: I reviewed the chart and agree with and approve of the documentation. Related to Abnormal EKG Reviewed age appropr iate safety, nutrition, and health maintenance. Pt will need to be cleared by cardiology before medically cleared for surgery Related to Pre-op evaluation Pt knows the risks o f taking a controlled substance; have previously discussed risks and benefits of use. Continue Hydrocodone 5-325mg 1 tab TID prn as prescribed. Will monitor. Related to Opioid use BMI of 33 today. Enc ouraged weight loss by making healthy dietary choices and increased activity. Focus on drinking plenty of water daily and getting adequate sleep. Monitor. Related to Obesity (BMI 30.0-34.9) Stable - Continue cu rrent treatment with dicyclomine 20mg 1 tab TID prn and Viberzi 100mg 1 tab BID as directed. Will monitor. Notify our office if you experience changes in your BMs. Related to Irritable bowel syndrome with diarrhea Stable Encouraged pr oper sleep hygiene. Monitor. Notify for changes in sleeping pattern. Related to Insomnia, unspecified type Last A1c was 6.0% on 01/2022. Encouraged patient to avoid processed sugars and to maintain a healthy, balanced low-carb diet with regular exercise. Will continue to monitor- notify if symptoms change or worsen. Related to Metabolic syndrome Stable - Continue tr eatment with Xyzal 5mg 1 tab QHS as directed. Will monitor. Related to Allergic rhinitis, unspecified seasonality, unspecified trigger Unchanged. F/u with hand surgeon as scheduled. Will monitor. Related to Carpal tunnel syndrome of right wrist Unchanged. Continue current treatment with Hydrocodone 5-325mg 1 tab TID prn, Nabumetone 750mg 1 tab BID and Gabapentin 300mg 2 tabs TID. Continue following up with orthopaedic surgeon as scheduled. Encourage to complete stretches and oxsfs-jv-picdlx exercises. Encouraged patient to try and lose some weight. Will monitor. Related to Lumbosacral radiculopathy due to degenerative joint disease of spine Unchanged. Continue current treatment with Hydrocodone 5-325mg 1 tab TID prn, Nabumetone 750mg 1 tab BID and Gabapentin 300mg 2 tabs TID. Continue following up with orthopaedic surgeon as scheduled. Encourage to complete stretches and icboa-mj-eqbltp exercises. Encouraged patient to try and lose some weight. Will monitor. Related to Other chronic pain Unchanged. Continue current treatment with Hydrocodone 5-325mg 1 tab TID prn, Nabumetone 750mg 1 tab BID and Gabapentin 300mg 2 tabs TID. Continue following up with orthopaedic surgeon as scheduled. Encourage to complete stretches and dpmzg-rj-jdjhkp exercises. Encouraged patient to try and lose some weight. Will monitor. Related to Cervical radiculopathy Stable. Continue cur rent treatment with Hydrocodone 5-325mg 1 tab TID prn and Nabumetone 750mg 1 tab BID as directed. Will monitor. Related to Coccyxdynia Unchanged. Continue current treatment with Hydrocodone 5-325mg 1 tab TID prn, Nabumetone 750mg 1 tab BID and Gabapentin 300mg 2 tabs TID. Continue following up with orthopaedic surgeon as scheduled. Encourage to complete stretches and trbhp-kk-bfqjak exercises. Encouraged patient to try and lose some weight. Will monitor. Related to Unilateral primary osteoarthritis, left knee Unchanged. Continue current treatment with Hydrocodone 5-325mg 1 tab TID prn, Nabumetone 750mg 1 tab BID and Gabapentin 300mg 2 tabs TID. Continue following up with orthopaedic surgeon as scheduled. Encourage to complete stretches and kwwsv-zj-reyezl exercises. Encouraged patient to try and lose some weight. Will monitor. Related to Osteoarthritis of spine with radiculopathy, cervical region Stable - Continue cu rrent treatment plan. Notify for new/worsening urinary symptoms. Will monitor.sening urinary symptoms. Will monitor. Related to Urinary incontinence, unspecified type Breathing stable. Co ntinue with current inhaler regimen. Continue to monitor. Notify for breathing complaints. Related to Moderate persistent asthma without complication Symptoms controlled. Continue current treatment with buspirone 10mg 1-1.5 tab BID as directed. Recommend regular exercise to help improve symptoms. Will continue to monitor. Notify for persisting/worsening symptoms. Related to Anxiety Stable - Continue cu rrent treatment with rosuvastatin 10mg 1 tab QHS as directed. Encouraged a low-cholesterol diet with regular cardiovascular exercise as tolerated. Will continue to monitor. Related to Mixed hyperlipidemia Stable, no recent fl are-ups. Continue current treatment plan. Avoid trigger foods. Will continue to monitor. Notify for persisting/worsening symptoms. Related to Gastroesophageal reflux disease without esophagitis Unchanged. Continue current treatment with Hydrocodone 5-325mg 1 tab TID prn, Nabumetone 750mg 1 tab BID and Gabapentin 300mg 2 tabs TID. Continue following up with orthopaedic surgeon as scheduled. Encourage to complete stretches and fbnin-yz-zdibbq exercises. Encouraged patient to try and lose some weight. Will monitor. Related to Spondylosis Managed per OBGYNChanel Bansal ontinue current treatment with Metformin ER 500mg 1 tablet BID, per recommendation of OBGYN. Will monitor. Related to Polycystic ovary syndrome Controlled at 135/92 today and rechecked at 130/80. Currently managing through diet and lifestyle. Encouraged low-sodium diet and drink plenty of water daily. Will continue to monitor.Labs: CMP, CBC, A1c, Micro, Vit D Related to Essential (primary) hypertension Medication management Unchanged. Continue current treatment with Hydrocodone 5-325mg 1 tab TID prn, Nabumetone 750mg 1 tab BID and Gabapentin 300mg 2 tabs TID. Continue following up with orthopaedic surgeon as scheduled. Encourage to complete stretches and qvnmc-gb-kytvwe exercises. Encouraged patient to try and lose some weight. Will monitor. Related to Other chronic pain Unchanged. Continue current treatment with Hydrocodone 5-325mg 1 tab TID prn, Nabumetone 750mg 1 tab BID and Gabapentin 300mg 2 tabs TID. Continue following up with orthopaedic surgeon as scheduled. Encourage to complete stretches and kdbeb-fx-twzjvb exercises. Encouraged patient to try and lose some weight. Will monitor. Related to Cervical radiculopathy Pt knows the risks o f taking a controlled substance; have previously discussed risks and benefits of use. Continue Hydrocodone 5-325mg 1 tab TID prn as prescribed. Will monitor. RHM: Discussed and recommended COVID- booster. F/U in 4 months or sooner if neededCharting performed by Monica Trivedi, acting as scribe for Kam Roper.Kam Roper, DO: I reviewed the chart and agree with and approve of the documentation. Related to Opioid use Stable - Continue tr eatment with Xyzal 5mg 1 tab QHS as directed. Will monitor. Related to Allergic rhinitis, unspecified seasonality, unspecified trigger Stable. Continue cur rent treatment with Hydrocodone 5-325mg 1 tab TID prn and Nabumetone 750mg 1 tab BID as directed. Will monitor. Related to Coccyxdynia Stable Encouraged pr oper sleep hygiene. Monitor. Notify for changes in sleeping pattern. Related to Insomnia, unspecified type Unchanged. F/u with hand surgeon as scheduled. Will monitor. Related to Carpal tunnel syndrome of right wrist Stable - Continue cu rrent treatment plan. Notify for new/worsening urinary symptoms. Will monitor. Related to Urinary incontinence, unspecified type BMI of 33 today. Enc ouraged weight loss by making healthy dietary choices and increased activity. Focus on drinking plenty of water daily and getting adequate sleep. Monitor. Related to Obesity (BMI 30.0-34.9) Stable - Continue cu rrent treatment with dicyclomine 20mg 1 tab TID prn and Viberzi 100mg 1 tab BID as directed. Will monitor. Notify our office if you experience changes in your BMs. Related to Irritable bowel syndrome with diarrhea Unchanged. Continue current treatment with Hydrocodone 5-325mg 1 tab TID prn, Nabumetone 750mg 1 tab BID and Gabapentin 300mg 2 tabs TID. Continue following up with orthopaedic surgeon as scheduled. Encourage to complete stretches and kdvkn-mb-rkhpxd exercises. Encouraged patient to try and lose some weight. Will monitor. Related to Lumbosacral radiculopathy due to degenerative joint disease of spine Unchanged. Continue current treatment with Hydrocodone 5-325mg 1 tab TID prn, Nabumetone 750mg 1 tab BID and Gabapentin 300mg 2 tabs TID. Continue following up with orthopaedic surgeon as scheduled. Encourage to complete stretches and nvrvb-mv-unawdj exercises. Encouraged patient to try and lose some weight. Will monitor. Related to Unilateral primary osteoarthritis, left knee Symptoms controlled. Continue current treatment with buspirone 10mg 1-1.5 tab BID as directed. Recommend regular exercise to help improve symptoms. Will continue to monitor. Notify for persisting/worsening symptoms. Related to Anxiety Unchanged. Continue current treatment with Hydrocodone 5-325mg 1 tab TID prn, Nabumetone 750mg 1 tab BID and Gabapentin 300mg 2 tabs TID. Continue following up with orthopaedic surgeon as scheduled. Encourage to complete stretches and vyrbp-py-moaxgh exercises. Encouraged patient to try and lose some weight. Will monitor. Related to Osteoarthritis of spine with radiculopathy, cervical region Unchanged. Continue current treatment with Hydrocodone 5-325mg 1 tab TID prn, Nabumetone 750mg 1 tab BID and Gabapentin 300mg 2 tabs TID. Continue following up with orthopaedic surgeon as scheduled. Encourage to complete stretches and jzvxy-wm-zxqaov exercises. Encouraged patient to try and lose some weight. Will monitor. Related to Spondylosis Breathing stable. Co ntinue with current inhaler regimen. Continue to monitor. Notify for breathing complaints. Related to Moderate persistent asthma without complication Last A1c was 6.0% on 01/2022. Encouraged patient to avoid processed sugars and to maintain a healthy, balanced low-carb diet with regular exercise. Will continue to monitor- notify if symptoms change or worsen. Related to Metabolic syndrome Stable, no recent fl are-ups. Continue current treatment plan. Avoid trigger foods. Will continue to monitor. Notify for persisting/worsening symptoms. Related to Gastroesophageal reflux disease without esophagitis Managed per OBGYN. C ontinue current treatment with Metformin ER 500mg 1 tablet BID, per recommendation of OBGYN. Will monitor. Related to Polycystic ovary syndrome Stable - Continue cu rrent treatment with rosuvastatin 10mg 1 tab QHS as directed. Encouraged a low-cholesterol diet with regular cardiovascular exercise as tolerated. Will continue to monitor. Related to Mixed hyperlipidemia Controlled at 135/92 today and rechecked at 130/80. Currently managing through diet and lifestyle. Encouraged low-sodium diet and drink plenty of water daily. Will continue to monitor.Labs: CMP, CBC, A1c, Micro, Vit D Related to Essential (primary) hypertension Medication management Continue taking the Viberzi twice daily we are increasing the dose to 100 mg from 75 mgUse dicyclomine as neededFollow up in the office in one year or sooner for problems Related to Irritable bowel syndrome with diarrhea Use the hydrocortiso ne cream twice daily for 2 weeksYou can also buy TUKS pads (witch brianna) padsIf you don't have improvement of your symptoms with the medications contact the office Related to Rectal itching as noted above Related to Other chronic pain MRI cervical spine w ithout contrast. Physical therapy eval and treat, 8 visits for now, more if needed Related to Neck pain, chronic Prednisone taper. Hy drocodone for pain. Will order MRI of cervical spine. Related to Cervical radiculopathy Pt knows the risks o f taking a controlled substance; have previously discussed risks and benefits of use. Continue Hydrocodone 5-325mg 1 tab TID prn as prescribed. Will monitor. Related to Opioid use Stable - D/C treatme nt with amitriptyline 25mg 1 tab QHS as directed; pt was not getting any relief from medication. Encouraged proper sleep hygiene. Monitor. Notify for changes in sleeping pattern. Related to Insomnia, unspecified type Stable. Continue cur rent treatment with Hydrocodone 5-325mg 1 tab TID prn and Nabumetone 750mg 1 tab BID as directed. Will monitor. RHM: Discussed and recommended COVID-19 booster. F/U in 3 months or sooner if neededCharting performed by Monica Trivedi, acting as scribe for Kam Roper.Kam Roper, DO: I reviewed the chart and agree with and approve of the documentation. Related to Coccyxdynia Stable - Will monitor. Related t o Vitamin D deficiency BMI of 32 today. Enc ouraged weight loss by making healthy dietary choices and increased activity. Focus on drinking plenty of water daily and getting adequate sleep. Monitor. Related to Obesity (BMI 30.0-34.9) Stable - Continue cu rrent treatment with dicyclomine 20mg 1 tab TID prn and Viberzi 75mg 1 tab BID as directed. Will monitor. Notify our office if you experience changes in your BMs. Related to Irritable bowel syndrome with diarrhea Stable - Continue tr eatment with Xyzal 5mg 1 tab QHS as directed. Will monitor. Related to Allergic rhinitis, unspecified seasonality, unspecified trigger Stable - Continue cu rrent treatment plan. Notify for new/worsening urinary symptoms. Will monitor. Related to Urinary incontinence, unspecified type Unchanged. Continue current treatment with Hydrocodone 5-325mg 1 tab TID prn, Nabumetone 750mg 1 tab BID and Gabapentin 300mg 2 tabs TID. Continue following up with orthopaedic surgeon as scheduled. Encourage to complete stretches and rozgo-cy-cmioyc exercises. Encouraged patient to try and lose some weight. Will monitor. Related to Unilateral primary osteoarthritis, left knee Unchanged. F/u with hand surgeon as scheduled. Will monitor. Related to Carpal tunnel syndrome of right wrist Unchanged. Continue current treatment with Hydrocodone 5-325mg 1 tab TID prn, Nabumetone 750mg 1 tab BID and Gabapentin 300mg 2 tabs TID. Continue following up with orthopaedic surgeon as scheduled. Encourage to complete stretches and domrb-vi-heietf exercises. Encouraged patient to try and lose some weight. Will monitor. Related to Osteoarthritis of spine with radiculopathy, cervical region Unchanged. Continue current treatment with Hydrocodone 5-325mg 1 tab TID prn, Nabumetone 750mg 1 tab BID and Gabapentin 300mg 2 tabs TID. Continue following up with orthopaedic surgeon as scheduled. Encourage to complete stretches and jbzfw-bq-iktvth exercises. Encouraged patient to try and lose some weight. Will monitor. Related to Spondylosis Unchanged. Continue current treatment with Hydrocodone 5-325mg 1 tab TID prn, Nabumetone 750mg 1 tab BID and Gabapentin 300mg 2 tabs TID. Continue following up with orthopaedic surgeon as scheduled. Encourage to complete stretches and dylii-ce-texvoe exercises. Encouraged patient to try and lose some weight. Will monitor. Related to Lumbosacral radiculopathy due to degenerative joint disease of spine Symptoms controlled. Continue current treatment with buspirone 10mg 1-1.5 tab BID as directed. Recommend regular exercise to help improve symptoms. Will continue to monitor. Notify for persisting/worsening symptoms. Related to Anxiety Managed per OBGYN. Juliana ontinue current treatment with Metformin ER 500mg 1 tablet BID, per recommendation of OBGYN. Will monitor. Related to Polycystic ovary syndrome Last A1c was 6.0% on 01/2022. Encouraged patient to avoid processed sugars and to maintain a healthy, balanced low-carb diet with regular exercise. Will continue to monitor- notify if symptoms change or worsen. Related to Metabolic syndrome Stable, no recent fl are-ups. Continue current treatment plan. Avoid trigger foods. Will continue to monitor. Notify for persisting/worsening symptoms. Related to Gastroesophageal reflux disease without esophagitis Controlled at 115/88 today. Currently managing through diet and lifestyle. Encouraged low-sodium diet and drink plenty of water daily. Will continue to monitor.Labs- CMP, CBC, LIPID, VIT D, A1C Related to Essential (primary) hypertension Breathing stable. Co ntinue with current inhaler regimen. Continue to monitor. Notify for breathing complaints. Related to Moderate persistent asthma without complication Stable - Continue cu rrent treatment with rosuvastatin 10mg 1 tab QHS as directed. Encouraged a low-cholesterol diet with regular cardiovascular exercise as tolerated. Will continue to monitor. Related to Mixed hyperlipidemia Medication management Symptomatic - Discus sed possible scar tissue irritation from prior cyst removals in that area. BEGIN treatment with medrol dose colin as directed; Rx sent today. Continue current treatment with Hydrocodone 5-325mg 1 tab TID prn and Nabumetone 750mg 1 tab BID as directed. Will monitor. Related to Coccyxdynia Stable - Continue tr eatment with Xyzal 5mg 1 tab QHS as directed. Will monitor. Related to Allergic rhinitis, unspecified seasonality, unspecified trigger Stable - Will monitor. Related t o Vitamin D deficiency BMI of 33.2 today. E ncouraged weight loss by making healthy dietary choices and increased activity. Focus on drinking plenty of water daily and getting adequate sleep. Monitor. Related to Obesity (BMI 30.0-34.9) Symptomatic - Decrea se treatment with trazodone 100mg to 1/2 tab daily x 1 week then stop. BEGIN treatment with amitriptyline 25mg 1 tab QHS as directed; Rx sent today. Encouraged proper sleep hygiene. Monitor. Notify for changes in sleeping pattern. Related to Insomnia, unspecified type Unchanged. F/u with hand surgeon as scheduled. Will monitor. Related to Carpal tunnel syndrome of right wrist Pt knows the risks o f taking a controlled substance; have previously discussed risks and benefits of use. Continue Hydrocodone 5-325mg 1 tab TID prn as prescribed. Will monitor. RHM: Discussed and recommended COVID-19 booster. F/U in 3 months or sooner if neededCharting performed by Monica Head, acting as scribe for Kam Roper.Kam Roper DO: I reviewed the chart and agree with and approve of the documentation. Related to Opioid use Unchanged. Continue current treatment with Hydrocodone 5-325mg 1 tab TID prn, Nabumetone 750mg 1 tab BID and Gabapentin 300mg 2 tabs TID. Continue following up with orthopaedic surgeon as scheduled. Encourage to complete stretches and agdds-rv-arlnna exercises. Encouraged patient to try and lose some weight. Will monitor. Related to Spondylosis Last A1c was 6.0% on 01/2022. Encouraged patient to avoid processed sugars and to maintain a healthy, balanced low-carb diet with regular exercise. Will continue to monitor- notify if symptoms change or worsen. Related to Metabolic syndrome Stable - Continue cu rrent treatment with dicyclomine 20mg 1 tab TID prn and Viberzi 75mg 1 tab BID as directed. Will monitor. Notify our office if you experience changes in your BMs. Related to Irritable bowel syndrome with diarrhea Stable - Continue cu rrent treatment plan. Notify for new/worsening urinary symptoms. Will monitor. Related to Urinary incontinence, unspecified type Unchanged. Continue current treatment with Hydrocodone 5-325mg 1 tab TID prn, Nabumetone 750mg 1 tab BID and Gabapentin 300mg 2 tabs TID. Continue following up with orthopaedic surgeon as scheduled. Encourage to complete stretches and xpfnw-ir-iiadlx exercises. Encouraged patient to try and lose some weight. Will monitor. Related to Unilateral primary osteoarthritis, left knee Symptoms controlled. Continue current treatment with buspirone 10mg 1-1.5 tab BID as directed. Recommend regular exercise to help improve symptoms. Will continue to monitor. Notify for persisting/worsening symptoms. Related to Anxiety Unchanged. Continue current treatment with Hydrocodone 5-325mg 1 tab TID prn, Nabumetone 750mg 1 tab BID and Gabapentin 300mg 2 tabs TID. Continue following up with orthopaedic surgeon as scheduled. Encourage to complete stretches and gzlrb-pi-iznvyl exercises. Encouraged patient to try and lose some weight. Will monitor. Related to Osteoarthritis of spine with radiculopathy, cervical region Unchanged. Continue current treatment with Hydrocodone 5-325mg 1 tab TID prn, Nabumetone 750mg 1 tab BID and Gabapentin 300mg 2 tabs TID. Continue following up with orthopaedic surgeon as scheduled. Encourage to complete stretches and anxvj-ca-fdqene exercises. Encouraged patient to try and lose some weight. Will monitor. Related to Lumbosacral radiculopathy due to degenerative joint disease of spine Managed per OBGYN. C ontinue current treatment with Metformin ER 500mg 1 tablet BID, per recommendation of OBGYN. Will monitor. Related to Polycystic ovary syndrome Stable, no recent fl are-ups. Continue current treatment plan. Avoid trigger foods. Will continue to monitor. Notify for persisting/worsening symptoms. Related to Gastroesophageal reflux disease without esophagitis Stable - Continue cu rrent treatment with rosuvastatin 10mg 1 tab QHS as directed. Encouraged a low-cholesterol diet with regular cardiovascular exercise as tolerated. Will continue to monitor. Related to Mixed hyperlipidemia Controlled at 145/95 and rechecked at 136/80 today. Currently managing through diet and lifestyle. Encouraged low-sodium diet and drink plenty of water daily. Will continue to monitor.Labs- BMP, H&H, HgA1c, micro Related to Essential (primary) hypertension Breathing stable. Co ntinue with current inhaler regimen. Continue to monitor. Notify for breathing complaints. Related to Moderate persistent asthma without complication Medication management Symptomatic with pedro n in left thigh worse upon sitting. Referred to ortho surgeon. Will monitor. F/u 3 months or sooner if needed Charting performed by Colleen Gallardo, acting as scribe for Dr. Roper. Dr. Cody Roper, DO: I reviewed the chart and agree with and approve of the documentation. Related to Meralgia paresthetica of left side Labs ordered today. will monitor . Related to Vitamin D deficiency Symptomatic with zaira al drainage, eye watering and itching. Start Xyxal as directed and eye drops as directed. RX sent to pharm. Will monitor. Related to Allergic rhinitis, unspecified seasonality, unspecified trigger Symptomatic with lum p at wrist and pain. Referred to see hand surgeon. Will monitor. Related to Carpal tunnel syndrome of right wrist Stable - Continue cu rrent treatment plan. Notify for new/worsening urinary symptoms. Will monitor. Related to Urinary incontinence, unspecified type BMI of 34.0 today wi th weight gain of 4lbs since last ov. Encouraged weight loss by making healthy dietary choices and increased activity. Focus on drinking plenty of water daily and getting adequate sleep. Monitor. Related to Obesity (BMI 30.0-34.9) Pt knows the risks o f taking a controlled substance; have previously discussed risks and benefits of use. Continue Hydrocodone 5-325mg 1 tab TID prn as prescribed. Will monitor. Related to Opioid use Stable. Continue cur rent treatment with trazodone 100mg 1 tab daily as directed. Encouraged proper sleep hygiene. Monitor. Notify for changes in sleeping pattern. Related to Insomnia, unspecified type Unchanged. Continue current treatment with Hydrocodone 5-325mg 1 tab TID as needed, Nabumetone 750mg 1 tab BID and Gabapentin 300mg 2 tabs QID. Continue following up with orthopaedic surgeon as scheduled. Encourage to complete stretches and rczes-bs-ohhyur exercises. Encouraged patient to try and lose some weight. Will monitor. Related to Lumbosacral radiculopathy due to degenerative joint disease of spine Unchanged. Continue current treatment with Hydrocodone 5-325mg 1 tab TID as needed, Nabumetone 750mg 1 tab BID and Gabapentin 300mg 2 tabs QID. Continue following up with orthopaedic surgeon as scheduled. Encourage to complete stretches and aradv-ec-mjattb exercises. Encouraged patient to try and lose some weight. Will monitor. Related to Spondylosis Managed per OBGYN. C ontinue current treatment with Metformin ER 500mg 1 tablet BID, per recommendation of OBGYN. Will monitor. Related to Polycystic ovary syndrome Stable - Discussed d ecreased availability of the Phenohytro in pharmacies can replace with dicyclomine 20mg 1 tab TID prn if it becomes too difficult to get the other medication. Continue current treatment with Phenohytro 1 tab daily and Viberzi 75mg 1 tab BID as directed. Will monitor. Notify our office if you experience changes in your BMs. Related to Irritable bowel syndrome with diarrhea Last A1c was 5.7% on 06/2021. Encouraged patient to avoid processed sugars and to maintain a healthy, balanced low-carb diet with regular exercise. Will continue to monitor- notify if symptoms change or worsen. Related to Metabolic syndrome Symptoms controlled. Continue current treatment with citalopram 20mg 1 tab daily and buspirone 10mg 1-1.5 tab BID as directed. Recommend regular exercise to help improve symptoms. Will continue to monitor. Notify for persisting/worsening symptoms. Related to Anxiety Unchanged. Continue current treatment with Hydrocodone 5-325mg 1 tab TID as needed, Nabumetone 750mg 1 tab BID , and Gabapentin 300mg 2 tabs QID. Continue following up with orthopaedic surgeon as scheduled. Encourage to complete stretches and zzupa-xc-hmwghv exercises. Encouraged patient to try and lose some weight. Will monitor. Related to Unilateral primary osteoarthritis, left knee Unchanged. Continue current treatment with Hydrocodone 5-325mg 1 tab TID as needed, Nabumetone 750mg 1 tab BID and Gabapentin 300mg 2 tabs QID. Continue following up with orthopaedic surgeon as scheduled. Encourage to complete stretches and qyzul-lk-xddahn exercises. Encouraged patient to try and lose some weight. Will monitor. Related to Osteoarthritis of spine with radiculopathy, cervical region Controlled. BP of 13 4/100 taken in the office today 118/80 upon recheck. Currently managing through diet and lifestyle. Encouraged low-sodium diet and drink plenty of water daily. Will continue to monitor.EKG done in the office today showed normal sinus rhythm and rate. Labs: CMP/CBC/A1C/Micro/Vit D/FLP Related to Essential (primary) hypertension Breathing stable. Co ntinue with current inhaler regimen. Continue to monitor. Notify for breathing complaints. Related to Moderate persistent asthma without complication Stable, no recent fl are-ups. Continue current treatment plan. Avoid trigger foods. Will continue to monitor. Notify for persisting/worsening symptoms. Related to Gastroesophageal reflux disease without esophagitis Stable . Continue cu rrent treatment with Crestor 10mg 1 tab QHS as directed. Encouraged a low-cholesterol diet with regular cardiovascular exercise as tolerated. Will continue to monitor. Related to Mixed hyperlipidemia Medication management Start Clotrimazole t o bilateral axillas twice daily for 14 daysIf no improvement notify office. Keep clean and dry Follow up as needed Related to Intertrigo Suspect related to i ntertrigo, could be underlying acanthosis nigrans as well. Will monitor and follow up if no improvement with Clotrimazole. Related to Hyperpigmentation Continue with the Vi berzi daily as you have beenUse dicyclomine as neededAvoid foods that give you problemsFollow up in the office in one year, sooner for problems Related to Irritable bowel syndrome with diarrhea Pt knows the risks o f taking a controlled substance; have previously discussed risks and benefits of use. Continue Hydrocodone 5-325mg 1 tab TID prn as prescribed. Will monitor. Related to Opioid use Order given in the o ffice today. Will monitor. F/u 3 months or sooner if neededPt was given a letter today stating that she is allergic to the Covid vaccine and should be exempt from getting it. Charting performed by Colleen Gallardo, acting as scribe for Dr. Roper. Dr. Cody Roper, DO: I reviewed the chart and agree with and approve of the documentation. Related to Encounter for screening mammogram for malignant neoplasm of breast Stable. Continue cur rent treatment with trazodone 100mg 1 tab daily as directed. Encouraged proper sleep hygiene. Monitor. Notify for changes in sleeping pattern. Related to Insomnia, unspecified type Stable - Continue cu rrent treatment plan. Notify for new/worsening urinary symptoms. Will monitor. Related to Urinary incontinence, unspecified type BMI of 33.4 today wi th weight gain of 3lbs since last ov. Encouraged healthy dietary choices and increased activity. Focus on drinking plenty of water daily and getting adequate sleep. Monitor. Related to Obesity (BMI 30.0-34.9) Unchanged; with wors ening symptoms. Continue current treatment with Hydrocodone 5-325mg 1 tab TID as needed, Relafen 750mg 1 tablet BID, and Gabapentin 300mg 2 tabs QID. Continue following up with orthopaedic surgeon as scheduled. Encourage to complete stretches and psrhi-wh-xbkyir exercises. Encouraged patient to try and lose some weight. Will monitor. Related to Unilateral primary osteoarthritis, left knee Stable - Discussed d ecreased availability of the Phenohytro in pharmacies can replace with dicyclomine 20mg 1 tab TID prn if it becomes too difficult to get the other medication. Continue current treatment with Phenohytro 1 tab daily and Viberzi 1 tab BID as directed. Will monitor. Notify our office if you experience changes in your BMs. Related to Irritable bowel syndrome with diarrhea Symptoms controlled. Continue current treatment with citalopram 20mg 1 tab daily and buspirone 10mg 1-1.5 tab BID as directed. Recommend regular exercise to help improve symptoms. Will continue to monitor. Notify for persisting/worsening symptoms. Related to Anxiety Unchanged. Kenalog i njection given in the back today in the office. Pt tolerated well. Continue current treatment with Hydrocodone 5-325mg 1 tab TID as needed, Relafen 750mg 1 tablet BID, and Gabapentin 300mg 2 tabs QID. Continue following up with orthopaedic surgeon as scheduled. Encourage to complete stretches and tmdat-hp-btyjou exercises. Encouraged patient to try and lose some weight. Will monitor. Related to Osteoarthritis of spine with radiculopathy, cervical region Unchanged. Kenalog i njection given in the back today in the office. Pt tolerated well. Continue current treatment with Hydrocodone 5-325mg 1 tab TID as needed, Relafen 750mg 1 tablet BID, and Gabapentin 300mg 2 tabs QID. Continue following up with orthopaedic surgeon as scheduled. Encourage to complete stretches and xaise-og-glmfhw exercises. Encouraged patient to try and lose some weight. Will monitor. Related to Spondylosis Managed per OBGYNChanel Bansal ontinue current treatment with Metformin ER 500mg 1 tablet BID, per recommendation of OBGYN. Will monitor. Related to Polycystic ovary syndrome Stable, no recent fl are-ups. Continue current treatment plan. Avoid trigger foods. Will continue to monitor. Notify for persisting/worsening symptoms. Related to Gastroesophageal reflux disease without esophagitis Unchanged. Kenalog i njection given in the back today in the office. Pt tolerated well. Continue current treatment with Hydrocodone 5-325mg 1 tab TID as needed, Relafen 750mg 1 tablet BID, and Gabapentin 300mg 2 tabs QID. Continue following up with orthopaedic surgeon as scheduled. Encourage to complete stretches and hhszr-om-uphbeb exercises. Encouraged patient to try and lose some weight. Will monitor. Related to Lumbosacral radiculopathy due to degenerative joint disease of spine Breathing stable. Co ntinue with current inhaler regimen; refilled ProAir today. Continue to monitor. Notify for breathing complaints. Related to Moderate persistent asthma without complication Last A1c was 5.8% on 02/2021. Encouraged patient to avoid processed sugars and to maintain a healthy, balanced low-carb diet with regular exercise. Will continue to monitor- notify if symptoms change or worsen. Related to Metabolic syndrome Controlled at 127/89 today. Currently managing through diet and lifestyle. Encouraged low-sodium diet and drink plenty of water daily. Will continue to monitor. Related to Essential (primary) hypertension Stable - Currently m anaging through diet and lifestyle. Encouraged a low-cholesterol diet with regular cardiovascular exercise as tolerated. Will continue to monitor. Related to Mixed hyperlipidemia Medication management Unchanged; with wors ening symptoms. Continue current treatment with Hydrocodone 5-325mg 1 tab TID as needed, Relafen 750mg 1 tablet BID, and Gabapentin 300mg 2 tabs QID. Continue following up with orthopaedic surgeon as scheduled. Encourage to complete stretches and kkcsc-zl-qoykdj exercises. Encouraged patient to try and lose some weight. Will monitor. Related to Unilateral primary osteoarthritis, left knee Unchanged. Continue current treatment with Hydrocodone 5-325mg 1 tab TID as needed, Relafen 750mg 1 tablet BID, and Gabapentin 300mg 2 tabs QID. Continue following up with orthopaedic surgeon as scheduled. Encourage to complete stretches and kkkme-up-vfpwzx exercises. Encouraged patient to try and lose some weight. Will monitor. Related to Spondylosis Unchanged. Continue current treatment with Hydrocodone 5-325mg 1 tab TID as needed, Relafen 750mg 1 tablet BID, and Gabapentin 300mg 2 tabs QID. Continue following up with orthopaedic surgeon as scheduled. Encourage to complete stretches and jxxkp-hc-nnboqn exercises. Encouraged patient to try and lose some weight. Will monitor. Related to Lumbosacral radiculopathy due to degenerative joint disease of spine Symptoms controlled. Continue current treatment with citalopram 20mg 1 tab daily and buspirone 10mg 1-1.5 tab BID as directed. Recommend regular exercise to help improve symptoms. Will continue to monitor. Notify for persisting/worsening symptoms. Related to Anxiety Symptomatic with int ermittent sinus SHEA and itchy eyes. BEGIN treatment with Patanol 0.1% eye drops as directed; Rx sent today. Continue current treatment with Zyrtec 10mg 1 tab daily and Flonase as directed. Will continue to monitor. Related to Non-seasonal allergic rhinitis due to pollen Pt received requisit ion for screening mammogram in office today.RHM: Pt received [employer] COVID-19 vaccine x1 on 06/14/2021 and is scheduled for x2 on 07/11/2021. F/U in 4 months or sooner if neededCharting performed by Monica Head, acting as scribe for Kam Roper.Kam Roper, DO: I reviewed the chart and agree with and approve of the documentation. Related to Encntr screen mammogram for malignant neoplasm of breast Pt knows the risks o f taking a controlled substance; have previously discussed risks and benefits of use. Continue Hydrocodone 5-325mg 1 tab TID prn as prescribed. Will monitor. Related to Opioid use BMI of 32.9 today. E ncouraged healthy dietary choices and increased activity. Focus on drinking plenty of water daily and getting adequate sleep. Monitor. Related to Obesity (BMI 30.0-34.9) Stable. Continue cur rent treatment with trazodone 100mg 1 tab daily as directed. Encouraged proper sleep hygiene. Monitor. Notify for changes in sleeping pattern. Related to Insomnia, unspecified type Last A1c was 5.8% on 02/2021. Encouraged patient to avoid processed sugars and to maintain a healthy, balanced low-carb diet with regular exercise. Will continue to monitor- notify if symptoms change or worsen. Related to Metabolic syndrome Breathing stable. Co ntinue with current inhaler regimen; refilled ProAir today. Continue to monitor. Notify for breathing complaints. Related to Moderate persistent asthma without complication Stable - Continue cu rrent treatment plan. Notify for new/worsening urinary symptoms. Will monitor. Related to Urinary incontinence, unspecified type Stable, no recent fl are-ups. Continue current treatment plan. Avoid trigger foods. Will continue to monitor. Notify for persisting/worsening symptoms. Related to Gastroesophageal reflux disease without esophagitis Stable - Discussed d ecreased availability of the Phenohytro in pharmacies can replace with dicyclomine 20mg 1 tab TID prn if it becomes too difficult to get the other medication. Continue current treatment with Phenohytro 1 tab daily and Viberzi 1 tab BID as directed. Will monitor. Notify our office if you experience changes in your BMs. Related to Irritable bowel syndrome with diarrhea Stable - Currently m anaging through diet and lifestyle. Encouraged a low-cholesterol diet with regular cardiovascular exercise as tolerated. Will continue to monitor. Related to Mixed hyperlipidemia Controlled at 137/90 and rechecked at 132/84 today. Currently managing through diet and lifestyle. Encouraged low-sodium diet and drink plenty of water daily. Will continue to monitor.Labs- CBC, CMP, LP, HgA1c, micro Related to Essential (primary) hypertension Managed per OBGYN. C ontinue current treatment with Metformin ER 500mg 1 tablet BID, per recommendation of OBGYN. Will monitor. Related to Polycystic ovary syndrome Unchanged. Continue current treatment with Hydrocodone 5-325mg 1 tab TID as needed, Relafen 750mg 1 tablet BID, and Gabapentin 300mg 2 tabs QID. Continue following up with orthopaedic surgeon as scheduled. Encourage to complete stretches and dwchi-bh-ghfevy exercises. Encouraged patient to try and lose some weight. Will monitor. Related to Osteoarthritis of spine with radiculopathy, cervical region Medication management Secondary to left kn ee pain, causing pt to walk abnormally which resulted in left foot pain and edema. Will Monitor. Related to Primary osteoarthritis of left foot Symptomatic Reports she had surgery on right wrist on 03/04/21. Surgery site is healing nicely. Continue current treatment from surgeon. Continue following with hand surgeon as scheduled. Notify office if symptoms worsen. Will continue to monitor. Related to Carpal tunnel syndrome of right wrist BMI of 33.2 today. P t has gained 6lbs since last office visit. Continue current treatment. Encouraged healthy diet and exercise. Will continue to monitor. Related to Obesity (BMI 30.0-34.9) Stable. Continue cur rent treatment with Hydrocodone 5-325mg 1 tab TID as needed, Relafen 750mg 1 tablet BID, and Gabapentin 300mg 2 tabs QID. Continue following up with orthopaedic surgeon as scheduled. Encourage to complete stretches and mptkj-vc-aejmuk exercises. Encouraged patient to try and lose some weight. Will monitor. Related to Osteoarthritis of spine with radiculopathy, cervical region Stable. Continue cur rent treatment with Hydrocodone 5-325mg 1 tab TID as needed, Relafen 750mg 1 tablet BID, and Gabapentin 300mg 2 tabs QID. Continue following up with orthopaedic surgeon as scheduled. Encourage to complete stretches and qaqnr-qp-qqfpab exercises. Encouraged patient to try and lose some weight. Will monitor. Related to Sciatica, unspecified laterality Asymptomatic. Will m onitor. F/u 4 months or sooner if needed Charting performed by Colleen Gallardo, acting as scribe for Dr. Roper. Dr. Cody Roper, DO: I reviewed the chart and agree with and approve of the documentation. Related to Fatigue, unspecified type Stable. Continue cur rent treatment with Hydrocodone 5-325mg 1 tab TID as needed, Relafen 750mg 1 tablet BID, and Gabapentin 300mg 2 tabs QID. Continue following up with orthopaedic surgeon as scheduled. Knee pain is causing pt to have slight lateral left foot edema. Encourage to complete stretches and rqhsx-zr-tskypl exercises. Encouraged patient to try and lose some weight. Will monitor. Related to Unilateral primary osteoarthritis, left knee Stable. Continue cur rent treatment with Hydrocodone 5-325mg 1 tab TID as needed, Relafen 750mg 1 tablet BID, and Gabapentin 300mg 2 tabs QID. Continue following up with orthopaedic surgeon as scheduled. Encourage to complete stretches and pixrf-ta-dtooqu exercises. Encouraged patient to try and lose some weight. Will monitor. Related to Spondylosis Managed per OBGYN. C ontrolled by Metformin ER 500mg 1 tablet BID and Spironolactone 50mg 1 tab BID per recommendation of OBGYN. Will monitor. Related to Polycystic ovary syndrome Stable. Continue cur rent treatment with Hydrocodone 5-325mg 1 tab TID as needed, Relafen 750mg 1 tablet BID, and Gabapentin 300mg 2 tabs QID. Continue following up with orthopaedic surgeon as scheduled. Encourage to complete stretches and gcleq-db-rzozdg exercises. Encouraged patient to try and lose some weight. Will monitor. Related to Lumbosacral radiculopathy due to degenerative joint disease of spine Controlled. Continue current treatment with Trazodone 100mg 1 tablet at bedtime. Encourage good sleep hygiene. Will monitor. Related to Insomnia, unspecified type Last A1c was 5.8% on 12/06/2020. Controlled. Continue current treatment with Metformin ER 500mg 1 tab BID. Encourage diabetic diet and regular exercise as tolerated. Encourage annual eye exams and vigilant self-foot exams. Will continue to monitor.Labs: [id number]: Able to self-manage condition. Goals: Your goal is to work on healthy eating habits. Barriers: No barriers to goal achievement have been identified. Related to Metabolic syndrome Stable, no recent fl are ups. Advised to avoid trigger foods. Will continue to monitor. Notify for worsening or persisting symptoms. Related to Gastroesophageal reflux disease, esophagitis presence not specified Stable. Continue cur rent treatment with Viberzi 75mg as directed by GI. Will continue to monitor. Notify for worsening symptoms. Related to Irritable bowel syndrome with diarrhea Per lab hx, WBC 16.7 8 on 06/19/2019. Will continue to monitor. Related to Leukocytosis, unspecified type Breathing stable. Co ntinue current treatment with ProAir HFA 90mcg 2 puffs Q4-6hours prn, and Dulera 200-5mcg 2 puffs twice daily per pulmonology . Encouraged exercise to improve endurance. Continue following up with pulmonology as scheduled. Will monitor. Related to Moderate persistent asthma without complication Encourage to maintai n a healthy low-fat diet and regular exercise as tolerated. Will continue to monitor. Related to Mixed hyperlipidemia Controlled. BP of 11 2/84 taken in the office today. Controlled without medication at this time. Encourage to maintain a low-sodium diet and regular exercise as tolerated. Will continue to monitor. Notify for SOB, CP, palpitations, lightheadedness, or edema.Labs: CMP/CBC Related to Essential (primary) hypertension Medication management Unchanged. Continue current treatment plan. Continue following with hand surgeon as scheduled. Notify office if symptoms worsen. Will continue to monitor. Related to Carpal tunnel syndrome of right wrist See plan #12Labs: CM P, CBC, [id number] up in 3 months or sooner if needed. Charting performed by Lesli Uribe, acting as scribe for Dr. KnappDr. Judson MD: I reviewed the chart and agree with and approve of the documentation. Related to Body mass index (BMI) 32.0-32.9, adult Symptomatic. INCREAS E Hydrocodone 5-325mg 1 tab TID as needed. Continue current treatment - Relafen 750mg 1 tablet BID, and Gabapentin 300mg 2 tabs QID. Continue following up with orthopaedic surgeon as scheduled. Encourage to complete stretches and tpvmk-uw-fepdhx exercises. Encouraged patient to try and lose some weight. Will monitor. Related to Spondylosis Asymptomatic. Will monitor. Rela kathrine to Fatigue, unspecified type Per lab hx, WBC 16.7 8 on 06/19/2019. Will continue to monitor. Related to Leukocytosis, unspecified type Symptomatic. INCREAS E Hydrocodone 5-325mg 1 tab TID as needed. Continue current treatment - Relafen 750mg 1 tablet BID, and Gabapentin 300mg 2 tabs QID. Continue following up with orthopaedic surgeon as scheduled. Encourage to complete stretches and bpwyd-yk-fadjha exercises. Encouraged patient to try and lose some weight. Will monitor. Related to Osteoarthritis of spine with radiculopathy, cervical region Symptomatic. INCREAS E Hydrocodone 5-325mg 1 tab TID as needed. Continue current treatment - Relafen 750mg 1 tablet BID, and Gabapentin 300mg 2 tabs QID. Continue following up with orthopaedic surgeon as scheduled. Encourage to complete stretches and dylhu-rb-ovmalq exercises. Encouraged patient to try and lose some weight. Will monitor. Related to Sciatica, unspecified laterality Last A1c was 5.7% on 10/02/2019. Continue current treatment - Metformin ER 500mg 1 tab BID. Encourage diabetic diet and regular exercise as tolerated. Encourage annual eye exams and vigilant self-foot exams. Will continue to monitor.Status: Able to self-manage condition. Goals: Your goal is to work on healthy eating habits. Barriers: No barriers to goal achievement have been identified.CMP, A1c Related to Metabolic syndrome Managed per OBGYN. C ontrolled by Metformin ER 500mg 1 tablet BID and Spironolactone 50mg 1 tab daily per recommendation of OBGYN. Will monitor. Related to Polycystic ovary syndrome BMI of 32.17 today. Continue current treatment - Phentermine 37.5 mg 1 tablet 1 hr before lunch. Encouraged healthy diet and exercise. Will continue to monitor. Related to Obesity (BMI 30.0-34.9) Symptomatic. INCREAS E Hydrocodone 5-325mg 1 tab TID as needed. Continue current treatment - Relafen 750mg 1 tablet BID, and Gabapentin 300mg 2 tabs QID. Continue following up with orthopaedic surgeon as scheduled. Encourage to complete stretches and qxyta-nk-nduuev exercises. Encouraged patient to try and lose some weight. Will monitor. Related to Lumbosacral radiculopathy due to degenerative joint disease of spine Symptomatic. INCREAS E Hydrocodone 5-325mg 1 tab TID as needed. Continue current treatment - Relafen 750mg 1 tablet BID, and Gabapentin 300mg 2 tabs QID. Continue following up with orthopaedic surgeon as scheduled. Encourage to complete stretches and yxcan-bo-rhiejd exercises. Encouraged patient to try and lose some weight. Will monitor. Related to Unilateral primary osteoarthritis, left knee Controlled. Continue current treatment - Trazodone 100mg 1 tablet at bedtime. Encourage good sleep hygiene. Will monitor. Related to Insomnia, unspecified type Stable. Continue cur rent treatment - Viberzi as directed by GI. Will continue to monitor. Notify for worsening symptoms. Related to Irritable bowel syndrome with diarrhea Stable, no recent fl are ups. Advised to avoid trigger foods. Will continue to monitor. Notify for worsening or persisting symptoms. Related to Gastroesophageal reflux disease, esophagitis presence not specified Encourage to maintai n a healthy low-fat diet and regular exercise as tolerated. Will continue to monitor. Related to Mixed hyperlipidemia Controlled without m edication at this time. Encourage Pt to maintain a low-sodium diet and regular exercise as tolerated. Will continue to monitor. Notify for SOB, CP, palpitations, lightheadedness, or edema.CMP, CBC Related to Essential (primary) hypertension Breathing stable. Co ntinue current treatment - ProAir HFA 90mcg 2 puffs Q4-6hours prn, and Dulera 200-5mcg 2 puffs twice daily per pulmonology (refilled today). Encouraged exercise to improve endurance. Continue following up with pulmonology as scheduled. Will monitor. Related to Moderate persistent asthma without complication Medication management Dietary management e ducation, guidance, and counseling Related to Body mass index (BMI) 32.0-32.9, adult Giving encouragement to exercise Related to Body mass index (BMI) 32.0-32.9, adult Continue to take the Viberzi twice dailyFollow up in one year or sooner for problems Related to Irritable bowel syndrome with diarrhea Take the Viberzi twi ce dailyAvoid greasy and spicy foodsQuit smokingFollow up in 4-6 weeksOur office will call you with the labs when the results are available Related to Irritable bowel syndrome with diarrhea Symptomatic. Cleared for surgery. Will monitor. Follow up in 3 months or sooner if needed. Charting performed by Renaldo Castillo, acting as scribe for Dr. KnappDr. Judson MD: I reviewed the chart and agree with and approve of the documentation. Related to Ganglion cyst BMI >31. Continue wi th Phentermine 37.5 mg 1 tablet 1 hr before lunch. Encouraged healthy diet and exercise. Will continue to monitor. Related to Obesity (BMI 30.0-34.9) Managed per OBGYN. C ontrolled by Metformin ER 500mg 1 tablet BID and Spironolactone 50mg 1 tab daily per recommendation of OBGYN. Will monitor. Related to Polycystic ovary syndrome Controlled. Continue with Trazodone 100mg 1 tablet at bedtime. Encourage good sleep hygiene. Will monitor. Related to Insomnia, unspecified type Asymptomatic. Will monitor. Rela kathrine to Fatigue, unspecified type Breathing stable tod ay. Continue current treatment plan with ProAir HFA 2 puffs Q4-6hours prn, and Dulera 200mcg-5mcg 2 puffs twice daily per pulmonology. Encouraged exercise to improve endurance. Continue following up with pulmonology as scheduled. Will monitor. Related to Moderate persistent asthma without complication Stable, no recent fl are ups. Advised to avoid trigger foods. Will continue to monitor. Notify for worsening or persisting symptoms. Related to Gastroesophageal reflux disease, esophagitis presence not specified Stable. Encourage to maintain a healthy low-fat diet and regular exercise as tolerated. Will continue to monitor.Labs: CMP, LP Related to Mixed hyperlipidemia Stable. Will continu e to monitor. Notify for worsening symptoms. Related to Irritable bowel syndrome with diarrhea WBC 16.78 on 06/19/2019. Will mo nitor. Related to Leukocytosis, unspecified type Controlled with diet and exercise. Encourage Pt to maintain a low-sodium diet and regular exercise as tolerated. Will continue to monitor. Notify for SOB, CP, palpitations, lightheadedness, or edema.Labs: CMP, CBC Related to Essential (primary) hypertension HA1c 5.7% on 019. Continue current treatment plan with Metformin ER 500mg 1 tab BID. Encourage diabetic diet and regular exercise as tolerated. Encourage annual eye exams and vigilant self-foot exams. Will continue to monitor.Status: Able to self-manage condition. Goals: Your goal is to work on healthy eating habits. Barriers: No barriers to goal achievement have been identified.Labs: CMP, HA1c, UA for micro Related to Metabolic syndrome Symptomatic. Continu e following up with orthopaedic surgeon as scheduled. Continue with Hydrocodone 5-325mg 1 tab every 12 hours as needed, Relafen 750mg 1 tablet BID, and Gabapentin 300mg 2 tabs QID. Encourage to complete stretches and mdgiv-al-yxitee exercises. Encouraged patient to try and lose some weight. Will monitor. Related to Sciatica, unspecified laterality Symptomatic. Continu e following up with orthopaedic surgeon as scheduled. Continue with Hydrocodone 5-325mg 1 tab every 12 hours as needed, Relafen 750mg 1 tablet BID, and Gabapentin 300mg 2 tabs QID. Encourage to complete stretches and brqeu-qf-hgdjtw exercises. Encouraged patient to try and lose some weight. Will monitor. Related to Spondylosis Symptomatic. Continu e following up with orthopaedic surgeon as scheduled. Continue with Hydrocodone 5-325mg 1 tab every 12 hours as needed, Relafen 750mg 1 tablet BID, and Gabapentin 300mg 2 tabs QID. Encourage to complete stretches and vvywg-iv-fhlakv exercises. Encouraged patient to try and lose some weight. Will monitor. Related to Osteoarthritis of spine with radiculopathy, cervical region Symptomatic. Continu e following up with orthopaedic surgeon as scheduled. Continue with Hydrocodone 5-325mg 1 tab every 12 hours as needed, Relafen 750mg 1 tablet BID, and Gabapentin 300mg 2 tabs QID. Encourage to complete stretches and tllpv-ez-eobpfr exercises. Encouraged patient to try and lose some weight. Will monitor. Related to Lumbosacral radiculopathy due to degenerative joint disease of spine Symptomatic. Continu e following up with orthopaedic surgeon as scheduled. Continue with Hydrocodone 5-325mg 1 tab every 12 hours as needed, Relafen 750mg 1 tablet BID, and Gabapentin 300mg 2 tabs QID. Encourage to complete stretches and tfnjr-su-xvprwg exercises. Encouraged patient to try and lose some weight. Will monitor. Related to Unilateral primary osteoarthritis, left knee Medication management BMI >33. START Phent ermine 37.5 mg 1 tablet 1 hr before lunch. Encouraged healthy diet and exercise. Will continue to monitor. Related to Obesity (BMI 30.0-34.9) Managed per OBGYN. C ontrolled by Metformin ER 500mg 1 tablet BID and Spironolactone 50mg 1 tab daily per recommendation of OBGYN. Will monitor. Related to Polycystic ovary syndrome Controlled. Continue with Trazodone 100mg 1 tablet at bedtime. Encourage good sleep hygiene. Will monitor. Related to Insomnia, unspecified type Asymptomatic. Will monitor. Rela kathrine to Fatigue, unspecified type Breathing stable tod ay. Continue current treatment plan with ProAir HFA 2 puffs Q4-6hours prn, and Dulera 200mcg-5mcg 2 puffs twice daily per pulmonology. Encouraged exercise to improve endurance. Continue following up with pulmonology as scheduled. Will monitor. Related to Moderate persistent asthma without complication WBC 16.78 on 06/19/2019. Will mo nitor. Related to Leukocytosis, unspecified type Stable, no recent fl are ups. Advised to avoid trigger foods. Will continue to monitor. Notify for worsening or persisting symptoms. Related to Gastroesophageal reflux disease, esophagitis presence not specified Stable. Will continu e to monitor. Notify for worsening symptoms. Related to Irritable bowel syndrome with diarrhea Stable. Encourage to maintain a healthy low-fat diet and regular exercise as tolerated. Will continue to monitor. Related to Mixed hyperlipidemia HA1c 5.7% on 019. Continue current treatment plan with Metformin ER 500mg 1 tab BID. Encourage diabetic diet and regular exercise as tolerated. Encourage annual eye exams and vigilant self-foot exams. Will continue to monitor.Status: Able to self-manage condition. Goals: Your goal is to work on healthy eating habits. Barriers: No barriers to goal achievement have been identified. Related to Metabolic syndrome Controlled with diet and exercise. Encourage Pt to maintain a low-sodium diet and regular exercise as tolerated. Will continue to monitor. Notify for SOB, CP, palpitations, lightheadedness, or edema.Labs: CMP, CBC Related to Essential (primary) hypertension Symptomatic. Continu e following up with orthopaedic surgeon as scheduled. Continue with Hydrocodone 5-325mg 1 tab every 12 hours as needed. STOP Feldene 20mg 1 tab daily. START Relafen 750mg 1 tablet BID. Continue with Gabapentin 300mg 2 tabs QID. Encourage to complete stretches and xmlmn-nd-vxdqjx exercises. Encouraged patient to try and lose some weight. Will monitor. Related to Unilateral primary osteoarthritis, left knee Controlled. Continue following up with orthopaedic surgeon as scheduled. Continue with Hydrocodone 5-325mg 1 tab every 12 hours as needed. STOP Feldene 20mg 1 tab daily. START with Relafen 750mg 1 tablet BID. Continue with Gabapentin 300mg 2 tabs QID. Encourage to complete stretches and omugm-qo-gbpmgi exercises. Encouraged patient to try and lose some weight. Will monitor. Related to Lumbosacral radiculopathy due to degenerative joint disease of spine Stable. Continue fol lowing up with orthopaedic surgeon as scheduled. Continue with Hydrocodone 5-325mg 1 tab every 12 hours as needed. STOP Feldene 20mg 1 tab daily. START with Relafen 750mg 1 tablet daily. Continue with Gabapentin 300mg 2 tabs QID. Encourage to complete stretches and mgawj-uv-cutqma exercises. Encouraged patient to try and lose some weight. Will monitor. Related to Osteoarthritis of spine with radiculopathy, cervical region Controlled. Continue following up with orthopaedic surgeon as scheduled. Continue with Hydrocodone 5-325mg 1 tab every 12 hours as needed. STOP Feldene 20mg 1 tab daily. START Relafen 750mg 1 tablet BID. Continue with Gabapentin 300mg 2 tabs QID. Encourage to complete stretches and dxhjm-je-oxyahm exercises. Encouraged patient to try and lose some weight. Will monitor. Related to Spondylosis Symptomatic. Continu e following up with orthopaedic surgeon as scheduled. Continue with Hydrocodone 5-325mg 1 tab every 6 hours as needed. STOP Feldene 20mg 1 tab daily. START Relafen 750mg 1 tablet BID Continue with Gabapentin 300mg 2 tabs QID. Encourage to complete stretches and asqvz-po-mawxdo exercises. Encouraged patient to try and lose some weight. Will monitor. Related to Sciatica, unspecified laterality Medication management Reviewed age appropr iate safety, nutrition, and health maintenance. Related to Physical exam Managed per OBGYN. S tart Spironolactone 50mg 1 tab daily per recommendation of OBGYN. Will monitor. RHM: Pt reports that she is UTD with her pap smearFollow up in 3 months or sooner as needed. Charting performed by Antelmo Hayes, acting as scribe for Dr. Roper.Kam Roper: I reviewed the chart and agree with and approve of documentation. Related to Polycystic ovary syndrome Pt has lost 25 pound s since last office visit. Continue with weight loss and exercise. Will monitor. Related to Weight loss Symptomatic. Will mo nitor.Labs: CBC and TSH Related to Fatigue, unspecified type Stable, no recent fl are ups. Continue current treatment plan with Protonix 40mg 1 tab daily. Advised to avoid trigger foods. Will continue to monitor. Notify for worsening or persisting symptoms. Related to Gastroesophageal reflux disease, esophagitis presence not specified Pain persists. Judy lopez following up with orthopaedic surgeon as scheduled. Continue with Hydrocodone 5-325mg 1 tab every 6 hours as needed. Rx sent today. Continue with Feldine 20mg 1 tab daily. Gabapentin 300mg 2 tabs QID and Flexeril 10mg 1 tab QHS as directed. Encourage to complete stretches and fjeet-vm-orebwf exercises. Encouraged patient to try and lose some weight. Will monitor. Related to Sciatica, unspecified laterality Stable. Will continu e to monitor. Notify for worsening symptoms. Related to Irritable bowel syndrome with diarrhea Controlled. Continue with Trazodone 100mg 1 tablet at bedtime. Encourage good sleep hygiene. Will monitor. Related to Insomnia, unspecified type WBC 16.78 on 019. Will refer to cut off saw operator pipe blanks if WBC remains elevated today. Will monitor. Related to Leukocytosis, unspecified type Encourage to maintai n a healthy low-fat diet and regular exercise as tolerated. Will continue to monitor.Labs: CMP and LP Related to Mixed hyperlipidemia Controlled with diet and exercise. Encourage Pt to maintain a low-sodium diet and regular exercise as tolerated. Will continue to monitor. Notify for SOB, CP, palpitations, lightheadedness, or edema. Related to Essential (primary) hypertension HA1c 5.7% on 019. Continue current treatment plan with Metformin ER 500mg 1 tab BID. Encourage diabetic diet and regular exercise as tolerated. Encourage annual eye exams and vigilant self-foot exams. Will continue to monitor.Status: Able to self-manage condition. Goals: Your goal is to work on healthy eating habits. Barriers: No barriers to goal achievement have been identified.Labs: CMP, HA1c, and UA for micro Related to Metabolic syndrome Pain persists. Judy nue following up with orthopaedic surgeon as scheduled. Continue with Hydrocodone 5-325mg 1 tab every 6 hours as needed. Rx sent today. Continue with Feldine 20mg 1 tab daily. Gabapentin 300mg 2 tabs QID and Flexeril 10mg 1 tab QHS as directed. Encourage to complete stretches and ogmzg-hg-himiny exercises. Encouraged patient to try and lose some weight. Will monitor. Related to Lumbosacral radiculopathy due to degenerative joint disease of spine Pain persists. Judy nue following up with orthopaedic surgeon as scheduled. Continue with Hydrocodone 5-325mg 1 tab every 6 hours as needed. Rx sent today. Continue with Feldine 20mg 1 tab daily. Gabapentin 300mg 2 tabs QID and Flexeril 10mg 1 tab QHS as directed. Encourage to complete stretches and wvsgz-ui-nnfwsn exercises. Encouraged patient to try and lose some weight. Will monitor. Related to Osteoarthritis of spine with radiculopathy, cervical region Pain persists. Judy nue following up with orthopaedic surgeon as scheduled. Continue with Hydrocodone 5-325mg 1 tab every 6 hours as needed. Rx sent today. Continue with Feldine 20mg 1 tab daily. Gabapentin 300mg 2 tabs QID and Flexeril 10mg 1 tab QHS as directed. Encourage to complete stretches and eykqs-im-onwvdf exercises. Encouraged patient to try and lose some weight. Will monitor. Related to Unilateral primary osteoarthritis, left knee Breathing stable tod ay. Continue current treatment plan with ProAir HFA 2 puffs Q4-6hours prn, Albuterol rescue inhaler 2 puffs every 4-6 hours as needed, and Dulera per pulmonology. Encouraged exercise to improve endurance. Continue following up with pulmonology as scheduled. Will monitor. Related to Moderate persistent asthma without complication Medication management Will check hormone l evels today as noted above Related to Sexual dysfunction Discussed laser hair removing or waxing with patient for hair removal. Labs: Testosterone level, LH, FSH, progesterone level, estradiol level, TSH Related to Hirsutism Shes on metformin ER 500mg twice daily. See plan 3 Related to PCOS (polycystic ovarian syndrome) Pap smear done in office today. Related to Cervical cancer screening Breathing stable tod ay. Continue current treatment plan with ProAir HFA 2 puffs Q4-6hours prn, Albuterol rescue inhaler 2 puffs every 4-6 hours as needed, and Dulera per pulmonology. Encouraged exercise to improve endurance. Continue following up with pulmonology as scheduled. Will monitor. Related to Moderate persistent asthma without complication Rx for mammogram given today. Re lated to [facility] screen mammogram for malignant neoplasm of breast Controlled. Continue with Trazodone 100mg 1 tablet at bedtime. Encourage good sleep hygiene. Will monitor. Related to Insomnia, unspecified type Stable, no recent fl are ups. Continue current treatment plan with Protonix 40mg 1 tab daily. Advised to avoid trigger foods. Will continue to monitor. Notify for worsening or persisting symptoms. Related to Gastroesophageal reflux disease, esophagitis presence not specified Symptoms unchanged. Continue current treatment plan with Gabapentin 300mg 2 tabs QID and Flexeril 10mg 1 tab QHS. Encourage to complete stretches and ttbps-fu-hijild exercises. Will continue to monitor. Related to Sciatica, unspecified laterality Encourage to maintai n a healthy low-fat diet and regular exercise as tolerated. Will continue to monitor.Labs: CMP and LP Related to Mixed hyperlipidemia Stable. Will continu e to monitor. Notify for worsening symptoms. Related to Irritable bowel syndrome with diarrhea Controlled with diet and exercise. Encourage Pt to maintain a low-sodium diet and regular exercise as tolerated. Will continue to monitor. Notify for SOB, CP, palpitations, lightheadedness, or edema.Labs: CBC and CMP Related to Essential hypertension Pain persists. Judy nue following up with orthopaedic surgeon as scheduled. Continue with Hydrocodone 5-325mg 1 tab every 6 hours as needed and Feldine 20mg 1 tab daily. Gabapentin 300mg 2 tabs QID and Flexeril 10mg 1 tab QHS as directed. Encourage to complete stretches and eezrw-pz-dlvawd exercises. Encouraged patient to try and lose some weight. Will monitor. Related to Osteoarthritis of spine with radiculopathy, cervical region HA1c 5.8% on 019. Continue current treatment plan with Metformin 500mg 1 tab BID. Encourage diabetic diet and regular exercise as tolerated. Encourage annual eye exams and vigilant self-foot exams. Will continue to monitor.Status: Able to self-manage condition. Goals: Your goal is to work on healthy eating habits. Barriers: No barriers to goal achievement have been identified.Labs: CMP, HA1c, and UA for micro Related to Metabolic syndrome Pain persists. Judy nue following up with orthopaedic surgeon as scheduled. Continue with Hydrocodone 5-325mg 1 tab every 6 hours as needed and Feldine 20mg 1 tab daily. Gabapentin 300mg 2 tabs QID and Flexeril 10mg 1 tab QHS as directed. Encourage to complete stretches and gsdur-fk-gwqkft exercises. Encouraged patient to try and lose some weight. Will monitor. Related to Lateral epicondylitis of right elbow WBC 16.78 on 019. Will refer to cut off saw operator pipe blanks if WBC remains elevated today. Will monitor. Related to Leukocytosis, unspecified type Pain persists. Judy nue following up with orthopaedic surgeon as scheduled. Continue with Hydrocodone 5-325mg 1 tab every 6 hours as needed and Feldine 20mg 1 tab daily. Gabapentin 300mg 2 tabs QID and Flexeril 10mg 1 tab QHS as directed. Encourage to complete stretches and xgkzl-jb-yhyzub exercises. Encouraged patient to try and lose some weight. Will monitor. Related to Lumbosacral radiculopathy due to degenerative joint disease of spine Pain persists. Judy nue following up with orthopaedic surgeon as scheduled. Continue with Hydrocodone 5-325mg 1 tab every 6 hours as needed and Feldine 20mg 1 tab daily. Gabapentin 300mg 2 tabs QID and Flexeril 10mg 1 tab QHS as directed. Encourage to complete stretches and dnrkf-ge-sogghf exercises. Encouraged patient to try and lose some weight. Will monitor. Related to Unilateral primary osteoarthritis, left knee Medication management Start buspirone 10-1 5 mg three times daily as needed for depression, anxiety. start citalopram 20mg once daily, call office in one month with update on symptoms.Status: Requires more self-management coaching. Goals: Your goal is to manage stress. Barriers: No barriers to goal achievement have been identified. Related to Current moderate episode of major depressive disorder without prior episode Pain persists. She i s starting physical therapy on June 23 for her knee. If the pain does not improve will refer to an orthopaedic surgeon. Start Hydrocodone 5-325mg 1 tab every 6 hours as needed and Feldine 20mg 1 tab daily. Continue with Gabapentin 300mg 2 tabs QID and Flexeril 10mg 1 tab QHS as directed. Encourage to complete stretches and xdecb-dw-cznnud exercises. Encouraged patient to try and lose some weight. Will monitor. Related to Osteoarthritis of left knee, unspecified osteoarthritis type Controlled. Continue with Trazadone 50mg 1 tablet at bedtime. Encourage good sleep hygiene. Will monitor. Related to Insomnia, unspecified type Stable, no recent fl are ups. Continue current treatment plan with Protonix 40mg 1 tab daily. Advised to avoid trigger foods. Will continue to monitor. Notify for worsening or persisting symptoms. Related to Gastroesophageal reflux disease, esophagitis presence not specified Breathing stable tod ay. Continue current treatment plan with ProAir HFA 2 puffs Q4-6hours prn, Albuterol rescue inhaler 2 puffs every 4-6 hours as needed, Singulair 10mg daily, and Dulera per pulmonology. Encouraged exercise to improve endurance. Continue following up with pulmonology as scheduled. Will monitor. Related to Moderate persistent asthma without complication Symptoms unchanged. Continue current treatment plan with Gabapentin 300mg 2 tabs QID and Flexeril 10mg 1 tab QHS. Encourage to complete stretches and mszkw-sy-oldyxm exercises. Will continue to monitor. Related to Sciatica, unspecified laterality Stable. Will continu e to monitor. Notify for worsening symptoms. Related to Irritable bowel syndrome with diarrhea Controlled with diet and exercise. Encourage Pt to maintain a low-sodium diet and regular exercise as tolerated. Will continue to monitor. Notify for SOB, CP, palpitations, lightheadedness, or edema.Labs: CBC and CMP Related to Essential hypertension Encourage to maintai n a healthy low-fat diet and regular exercise as tolerated. Will continue to monitor. Related to Mixed hyperlipidemia Pain persists. Judy nue with Gabapentin 300mg 2 tabs QID and Flexeril 10mg 1 tab QHS as directed. Encourage to complete stretches and hfyfc-hb-hohkpj exercises. Encouraged patient to try and lose some weight. Will monitor. Related to Osteoarthritis of spine with radiculopathy, cervical region Pain persists. Judy nue with Gabapentin 300mg 2 tabs QID and Flexeril 10mg 1 tab QHS as directed. Encourage to complete stretches and hkitz-cb-olgwqg exercises. Encouraged patient to try and lose some weight. Will monitor. Related to Lumbosacral radiculopathy due to degenerative joint disease of spine Pain persists. Judy nue with Gabapentin 300mg 2 tabs QID and Flexeril 10mg 1 tab QHS as directed. Encourage to complete stretches and eyvfn-hd-czpuaf exercises. Encouraged patient to try and lose some weight. Will monitor. Related to Lateral epicondylitis of right elbow HA1c 5.2% on 08/26/20 18. Continue current treatment plan with Metformin 500mg 1 tab BID. Encourage diabetic diet and regular exercise as tolerated. Encourage annual eye exams and vigilant self-foot exams. Will continue to monitor.Labs: HA1C Status: Able to self-manage condition. Goals: Your goal is to work on healthy eating habits. Barriers: No barriers to goal achievement have been identified. Related to Metabolic syndrome WBC 19.61 on 019 and 19.23 on 05/20/2019. Will refer to cut off saw operator pipe blanks if WBC remains elevated today. Will monitor. Labs: CBC Related to Leukocytosis, unspecified type Fit test stool cards given today. Follow up in 3 months or sooner as needed. Charting performed by Antelmo Hayes, acting as scribe for Dr. Roper.Kam Roper: I reviewed the chart and agree with and approve of documentation. Related to Screening for colon cancer Medication management Start Medrol dose pa ck. Discussed side effectsRecommend patient take Meloxicam daily after Medrol Dose pack is completed for at least 2 weeks to help with inflammation. Patient to call if pain not improved in 5-7 days and will send Tramadol 50mg TID PRN severe pain. qty 15 no refills. Discussed side effects and risks of NSAIDS. Elevate extremity when resting. Wear knee brace to help with stabilization. Applied today in officePatient to have PT/OT, and/or steroid knee injections. May get MRI if no improvement with PTDiscussed plan with patient who verbalizes understanding and agrees with plan Follow up as needed Related to Chronic pain of left knee Neb treatment in off ice today- Patient much improved s/p treatment. Needs to use daily inhaler for symptom control. Will order home nebulizer for patient. Will send albuterol neb solution 2.5mg/3mL every 4-6 hours as neededUse Albuterol rescue inhaler 2 puffs every 4-6 hours as needed for wheezing, shortness of breath, and/or cough. Start Prednisone 40mg taper over 12 days. Discussed side effects. Start Singulair 10mg daily. Avoid triggers and increase fluid intake.Follow up as needed for new or worsening symptoms Related to Moderate persistent asthma with acute exacerbation Assessments Type Assessment Date No Information Patient Care Teams Name Effective Dates (start - stop) Status Members No Information
--- OUTSIDE RECORDS SUMMARY | 2024-12-11 15:03 | XMS_ITS | Continuity of Care Document ---
Author Organization [facility] Address [address] [place] [address] Phone Care Team Providers Care Medical Safety Director Name Role Phone Cody Roper DO Unavailable [...] QN (URINE) CREATININE, (U-R) ROUTINE VENIPUNCTURE OFFICE ZIDVX-RVS-YCFIJPYM BODY MASS INDEX DOCD SYST BP GE 130 - 139MM HG DIAST BP 80-89 MM HG GENERAL HEALTH PANEL LIPID PANEL ROUTINE VENIPUNCTURE OFFICE KRZVY-KSX-LHOHWTOZ BODY MASS INDEX DOCD SYST BP LT 130 MM HG DIAST BP < 80 MM HG VITAMIN D, 25-HYDROXY OFFICE OHWPW-OEO-TVMKCVJR BODY MASS INDEX DOCD SYST BP LT 130 MM HG DIAST BP 80-89 MM HG ANTINUCLEAR ANTIBODIES (JAYCE) BASIC METABOLIC PANEL(BMP) C-REACTIVE PROTEIN (CRP) HEMATOCRIT (HCT) HEMOGLOBIN (HGB) HEMOGLOBIN A1C HGA1C, GLYCO RHEUMATOID FACTOR: QN RBC SED RATE, AUTOMATED URIC ACID, (S) URINALYSIS, DIPSTICK (UA) - Office Lab D ROUTINE VENIPUNCTURE OFFICE PWJXL-SSU-YGSCGCEC BODY MASS INDEX DOCD SYST BP LT 130 MM HG DIAST BP 80-89 MM HG BASIC METABOLIC PANEL(BMP) HEMATOCRIT (HCT) HEMOGLOBIN (HGB) HEMOGLOBIN A1C HGA1C, GLYCO LIPID PANEL VITAMIN D, 25-HYDROXY ROUTINE VENIPUNCTURE Pt inelig neg scrn depres OFFICE MVUBZ-WPM-OXGYXJVB BODY MASS INDEX DOCD SYST BP GE 130 - 139MM HG DIAST BP 80-89 MM HG EKG (ELECTROCARDIOGRAM) OFFICE NAZSY-WQJ-UXTJXTVD BODY MASS INDEX DOCD SYST BP GE [...] - Office Lab J ROUTINE VENIPUNCTURE OFFICE YRHBJ-YFQ-LFQGBLPB John-19-2023 BODY MASS INDEX DOCD SYST BP GE 130 - 139MM HG DIAST BP 80-89 MM HG OFFICE GPXJV-BFZ-ZOTNHXEJ BODY MASS INDEX DOCD SYST BP LT 130 MM HG DIAST BP < 80 MM HG DSCHRG MED/CURRENT MED MERGE OFFICE VCBAK-OVU-CUQGQBPZ SYST BP LT 130 MM HG DIAST BP 80-89 MM HG CBC, INC PLATELETS AND DIFFERENTIAL COMPREHEN METABOLIC PANEL CMP 2 HEMOGLOBIN A1C HGA1C, GLYCO LIPID PANEL VITAMIN D, 25-HYDROXY URINALYSIS, DIPSTICK (UA) - Office Lab S ROUTINE VENIPUNCTURE OFFICE PKDIO-VSG-SFFAKSLU BODY MASS INDEX DOCD SYST BP LT 130 MM HG DIAST BP 80-89 MM HG URINALYSIS W MICROSCOPIC (UA) URINALYSIS, DIPSTICK (UA) - Office Lab S Brief Emotional/Behavioral A ssessment, With Scoring/Doct, Per Stndrd Instrument Pt inelig neg scrn depres BASIC METABOLIC PANEL(BMP) HEMATOCRIT (HCT) HEMOGLOBIN (HGB) ROUTINE VENIPUNCTURE HEMOGLOBIN A1C HGA1C, GLYCO MICROALBUMIN, QN (URINE) CREATININE, (U-R) OFFICE KQPJI-LKB-QRVXOTSM BODY MASS INDEX DOCD SYST BP GE 130 - 139MM HG DIAST BP 80-89 MM HG CBC, INC PLATELETS AND DIFFERENTIAL COMPREHEN METABOLIC PANEL CMP 2 HEMOGLOBIN A1C HGA1C, GLYCO LIPID PANEL VITAMIN D, 25-HYDROXY MICROALBUMIN, SEMIQN(RGT STRIP) - OL Jan ROUTINE VENIPUNCTURE OFFICE KJANR-BMR-MOAUDCVS BODY MASS INDEX DOCD SYST BP LT 130 MM HG DIAST BP 80-89 MM HG EKG (ELECTROCARDIOGRAM) OFFICE ZBMMY-SHP-EGAXYBRX BODY MASS INDEX DOCD SYST BP LT 130 MM HG DIAST BP 80-89 MM HG OFFICE PYQON-AJS-WETNQIEY BODY MASS [facility] BP LT 130 MM HG DIAST BP 80-89 MM HG KENALOG 10 MG INJ; MULTIPLE TRIGGER PTS, 1 OR 2 MUSCLE GROUPS OFFICE FIVBG-LTV-USOEAWVH BODY MASS INDEX DOCD SYST BP LT 130 MM HG DIAST BP 80-89 MM HG OFFICE BMUDH-RAW-CGJPXJLY BODY MASS INDEX [facility] SY[facility] BP GE 130 - 139MM HG DIAST BP 80-89 MM HG CBC, INC PLATELETS AND DIFFERENTIAL COMPREHEN METABOLIC PANEL CMP 1 HEMOGLOBIN A1C HGA1C, GLYCO LIPID PANEL ROUTINE VENIPUNCTURE Pt inelig neg scrn depres OFFICE YCQWQ-EBF-MZFWFSXV BODY MASS INDEX DOCD SYST BP LT 130 MM HG DIAST BP 80-89 MM HG CBC, INC PLATELETS AND DIFFERENTIAL COMPREHEN METABOLIC PANEL CMP 1 HEMOGLOBIN A1C HGA1C, GLYCO ROUTINE VENIPUNCTURE OFFICE DZYCM-GIR-SOEOBIEU BODY MASS INDEX DOCD SYST BP >= 140 MM HG6 IT DIAST BP 80-89 MM HG CBC, INC PLATELETS AND DIFFERENTIAL COMPREHEN METABOLIC PANEL CMP 1 HEMOGLOBIN A1C HGA1C, GLYCO ROUTINE VENIPUNCTURE OFFICE IANEA-LHO-JXTWNGBV BODY MASS INDEX DOCD SYST BP LT 130 MM HG DIAST BP < 80 MM HG DEAMIDATED GLADIN PEPTIDE IGA 0 DEAMIDATED GLADIN PEPTIDE IGG 0 TISSUE TRANSGLUTIMASE IGA TISSUE TRANSGLUTIMASE IGG ROUTINE VENIPUNCTURE BODY MASS INDEX DOCD SYST BP GE 130 - 139MM HG DIAST BP 80-89 MM HG OFFICE PGOYB-WFP-AANPGBMK OFFICE LJVXT-OPB-KUEJNRSQ BODY MASS INDEX DOCD SYST BP LT 130 MM HG DIAST BP < 80 MM HG CBC, INC PLATELETS AND DIFFERENTIAL COMPREHEN METABOLIC PANEL CMP 0 HEMOGLOBIN A1C HGA1C, GLYCO LIPID PANEL ROUTINE VENIPUNCTURE Brief Emotional/Behavioral A ssessment, With Scoring/Doct, Per Stndrd Instrument Pt inelig neg scrn depres Kept Appointment No Charge Encounter Jul OFFICE GPSAK-HFD-VZKIWJUZ BODY MASS INDEX DOCD SYST BP LT [...] SCREENING FOR PAP (OBTAINING SPECIMEN) M OFFICE OPDOQ-OLT-WZGOZKPA BODY MASS INDEX DOCD SYST BP LT 130 MM HG DIAST BP < 80 MM HG BP OFFICE/OUTPATIENT VISIT EST OFFICE FNDAN-RXL-LXPQLPIB BODY MASS INDEX DOCD SYST BP LT 130 MM HG DIAST BP 80-89 MM HG CBC, INC PLATELETS AND DIFFERENTIAL COMPREHEN METABOLIC PANEL CMP 9 HEMOGLOBIN A1C HGA1C, GLYCO LIPID PANEL ROUTINE VENIPUNCTURE THERAPEUTIC EXERCISES ULTRASOUND THERAPY THERAPEUTIC EXERCISES ULTRASOUND THERAPY Brief Emotional/Behavioral A ssessment, With Scoring/Doct, Per Stndrd Instrument Clin depression screen doc OFFICE ZHRMZ-RLD-FWMAKXTH BODY MASS INDEX DOCD SYST BP LT 130 MM HG DIAST BP < 80 MM HG THERAPEUTIC EXERCISES ULTRASOUND THERAPY ELECTRICAL STIMULATION THERAPEUTIC EXERCISES ULTRASOUND THERAPY ULTRASOUND THERAPY THERAPEUTIC EXERCISES THERAPEUTIC EXERCISES ULTRASOUND THERAPY OT EVAL (MOD COMPLEXITY) CBC, INC PLATELETS AND DIFFERENTIAL COMPREHEN METABOLIC PANEL CMP 9 HEMOGLOBIN A1C HGA1C, GLYCO ROUTINE VENIPUNCTURE OFFICE XERDG-NWA-PHYBBYGD BODY MASS INDEX DOCD SYST BP GE [...] Diagnoses Date Provider Providers Copied on Encounter [employer] [facility], [address], [place], [place], [address] , tel: [phone] Roper No Information 4 Judson Ross. [address] [place] [address], [address] [place] [address], . tel:[phone] [facility], [address], [place], [place], [address] , tel: [phone] Roper Kidney stone 4 Judson Ross. [address] [place] [address], [id number], . tel:[phone] [facility], [address], [place], [place], [address] , tel: [phone] Roper No Information 4 Judson Ross. [address] [place] [address], [id number], . tel:[phone] [employer] [facility], [address], [place], [place], [address] , tel: [phone] Roper No Information 4 Judson Ross. [address] [place] [address], [id number], . tel:[phone] OFFICE JHLYU-AEN-ZL TAILED [facility], [address], [place], [place], [address] , tel: [phone] Roper mmp (chief complaint) Encounter for screening [...] deficiencyHx of cholecystectomy 4 Judson Ross. [address] [place], [place], [address], . tel:[phone] Referring Provider: Cody Stein, [address] [place] [address], [place], [address] . tel:[phone] [facility], [address], [place], [place], [address] , tel: [phone] Steele No Information 4 Judson Ross. [address], [place], [address], . tel:[phone] [facility], [address], [place], [place], [address] , tel: [phone] Judson No Information 4 Judson Ross. [address] [facility], [place], [place], [address], . tel:[phone] [facility], [address], [place], [place], [address] , tel: [phone] Judson No Information 4 Judson Ross. [address], [place], [address], [place]. tel:[phone] OFFICE ABVMY-JCQ-PZ TAILED [facility], [address], [place], [place], [address] , tel: [phone] Judson mmp (chief complaint) Mixed hyperlipidemiaMo derate [...] corporisVitamin D deficiency 4 Judson Ross. [address], [place], [address], . tel:[phone] Referring Provider: Cody Stein, [address] [facility], [place], [address] . tel:[phone] OFFICE KGFAM-MGI-YI [facility], [address], [place], [place], [address] , [place] tel: [phone] Judson mmp (chief complaint) Gastroesophageal reflux disease [...] of multiple joints 3 Judson Ross. [address] [facility], [place], [place], [address], [place]. tel:[phone] Referring Provider: Cody Stein, [address] [facility], [place], [address] . tel:[phone] OFFICE MZPHY-KJP-HX [facility], [address], [place], [place], [address] , [place] tel: [phone] [facility] IBS D (chief complaint) Irritable bowel syndrome with diarrhea [address] [facility] [place] [address], [place]. tel:[phone] Referring Provider: Emil Roper, [address] [facility], [place], [address] . tel:[phone] [facility], [address], [place], [place], [address] , [place] tel: [phone] Judson Other spondylosis with radiculopathy, cervical regionOther spondylosis with radiculopathy, lumbosacral regionSpondylosi s, unspecifiedUnila teral primary osteoarthritis, left knee Jul- 3 Judson Ross. [address] [facility], [place], [place], [address], [place]. tel:[phone] [facility], [address], [place], [place], [address] , [place] tel: [phone] Judson No Information 3 Judson Ross. [address] [facility], [place], [place], [address], [place]. tel:[phone] OFFICE FWNGO-NKY-VA [facility], [address], [place], [place], [address] , [place] tel: [phone] Judson mmp (chief complaint) Essential (primary) hypertensionMixe [...] neoplasm of breast 3 Judson Ross. [address], [place], [address], [place]. tel:[phone] Referring Provider: Cody Stein, [address] [facility] [address], [place], [address] . tel:[phone] [facility], [address], [place], [place], [address] , [place] tel: [phone] [facility] (chief complaint) Essential (primary) hypertensionMeta bolic syndromeIrritabl [...] evaluationAbnorm al EKG 3 Judson Ross. [address] [facility] [address], [place], [place], [address], [place]. tel:[phone] Referring Provider: Cody Stein, [address] [facility] [address], [place], [address] . tel:[phone] OFFICE [facility], [address], [place], [place], [address] , [place] tel: [phone] [facility] (chief complaint) Lumbosacral radiculopathy due [...] with diarrheaCervical radiculopathy 3 Judson Ross. [address], [place], [address], . tel:[phone] Referring Provider: Cody Stein, [address] [place] [address], [place], [address] . tel:[phone] OFFICE FCOQO-FGU-GZ [facility], [address], [place], [place], [address] , [place] tel:[phone] [facility] Follow up (chief complaint) Irritable bowel syndrome with diarrheaRectal itching 2 Jerrell Gillette. [address] [place] [address], [address], [place]. tel:[phone] Referring Provider: Cody Stein, [address] [place] [address], [place], [address] . tel:[phone] OFFICE LXXQB-LOS-TT [facility], [address], [place], [place], [address] , [place] tel:[phone] Judson madsen (chief complaint) Cervical radiculopathyNec k pain, chronicOther chronic pain 2 Jim Camp. [address] [place], [place], [address], [place]. tel:[phone] Referring Provider: Cody Stein, [address] [facility], [place], [address] . tel:[phone] OFFICE CKUDY-MNZ-JL [facility] [employer] [facility], [address], [place], [place], [address] , [place] tel:[phone] Judson madsen (chief complaint) Essential (primary) hypertensionMixe [...] tamin D deficiency Jul- 2 Judson Ross. [address] [place] [address], [id number], . tel:[phone] Referring Provider: Cody Stein, [address] [place] [address], [address] . tel:[phone] [facility], [address], [place], [place], [address] , tel: [phone] Judson UTI symptoms/c oncerns (chief complaint) UTI symptoms 2 Judson Ross. [address] [place] [address], [id number], [place]. tel:[phone] Referring Provider: Cody Stein, [address] [place] [address], [place], [address] . tel:[phone] OFFICE ZXMIB-ETQ-VB [facility], [address], [place], [place], [address] , tel:[phone] Judson mmp (chief complaint) Essential (primary) hypertensionMeta [...] unspecified type Be 2 Judson Ross. [address] [facility] [address], [place], [place], [address], . tel:[phone] Referring Provider: Cody Stein, [address] [place] [address] B, [place], [address] . tel:[phone] OFFICE OIJXX-NXC-ZR [facility], [address], [place], [place], [address] , [place] tel:[phone] Judson mmp (chief complaint) Essential (primary) hypertensionMixe [...] paresthetica of left side 2 Judson Ross. [address] [place] [address], [place], [place], [address], [place]. tel:[phone] Referring Provider: Cody Stein, [address] [place] [address], [place], [address] . tel:[phone] OFFICE HCFOZ-NFH-FN [facility], [address], [place], [place], [address] , [place] tel:[phone] Judson Rash (chief complaint) IntertrigoHyperp igmentation 2 Erasmo Cheney. [address] [place] [address], [address], [place], [place], [address], [place]. tel:[phone] Referring Provider: Cody Stein, [address] [place] [address] B, [place], [address] . tel:[phone] OFFICE UEWYU-AQQ-IO [facility], [address], [place], [place], [address] , [place] tel:[phone] [facility] IBS (chief complaint) Irritable bowel syndrome with diarrhea 1 Jerrell Gillette. [address] [place], [place], [address], [place]. tel:[phone] Referring Provider: Cody Stein, [address] [place] [address], [address] . tel:[phone] [facility]ICE [facility], [address], [place], [place], [address] , [place] tel: [phone] Judson madsen (chief complaint) Encounter for screening [...] (BMI 30.0-34.9)Opioid use 1 Judson Ross. [address] [place], [place], [address], [place]. tel:[phone] Referring Provider: Cody Stein, [address] [place], [address] . tel:[phone] OFFICE [facility]DS[facility], [address], [place], [place], [address] , [place] tel:[phone] Judson madsen (chief complaint) Essential (primary) hypertensionMixe [...] due to pollenAnxiety 1 Judson Ross. [address] [facility], [place], [place], [address], . [phone] Referring Provider: Cody Stein, [address] [facility], [place], [address] . tel:[phone] [employer] [facility], [address], [place], [place], [address] , tel: [phone] Judson No Information 1 Judson Ross. [address] [facility], [place], [place], [address], . tel:[phone] [facility], [address], [place], [place], [address] , tel: [phone] [facility] Urinary incontinence, unspecified type 1 Judson Ross. [address] [facility], [place], [place], [address], . tel:[phone] OFFICE JMYUF-NPA-QA [facility], [address], [place], [place], [address] , tel: [phone] Judson MMP (chief complaint) Essential (primary) hypertensionMixe [...] of left foot 1 Judson Ross. [address] [facility], [place], [place], [address], [place]. tel:[phone] Referring Provider: Cody Stein, [address] [place] [address] B, [place], [address] . tel:[phone] OFFICE QPYHQ-WMR-SR [facility], [address], [place], [place], [address] , [place] tel: [phone] Judson mmp (chief complaint) Essential (primary) hypertensionMixe [...] syndrome of right wrist 1 Judson Ross. [address] [place] [address], [place], [place], [address], [place]. tel:[phone] Referring Provider: Cody Stein, [address] [place] [address], [place], [address] . tel:[phone] OFFICE ZOEKP-XIG-HQ [facility], [address], [place], [place], [address] , [place] tel:[phone] [facility] Diarrhea (chief complaint) Irritable bowel syndrome with diarrhea 0 Jerrell Gillette. [address] [place], [place], [address], [place]. tel:[phone] Referring Provider: Cody Stein, [address] [place] [address] B, [place], [address] . tel:[phone] OFFICE FZDHW-AJW-MK [facility], [address], [place], [place], [address] , [place] tel:[phone] [facility] Diarrhea (chief complaint) Irritable bowel syndrome with diarrhea 0 0 Jerrell Leta. [address] [place], [place], [address], [place]. tel:[phone] Referring Provider: Cody Stein, [address] [place] [address], [place], [address] . tel:[phone] OFFICE ANBOT-RYH-MN [facility], [address], [place], [place], [address] , [place] tel: [phone] Judson mmp (chief complaint) Unilateral primary osteoarthritis, [...] (BMI 30.0-34.9)Gangli on cyst 0 Judson Ross. [address] [place] [address], [place], [place], [address], [place]. tel:[phone] Referring Provider: Cody Stein, [address] [place] [address], [place], [address] . tel:[phone] [facility], [address], [place], [place], [address] , [place] tel:[phone] Judson weight check (chief complaint) No Information 0 Judson Ross. [address], [place], [address], [place]. tel:[phone] Referring Provider: Cody Stein, [address] [facility], [place], [address] . tel:[phone] OFFICE WWSIM-OMA-ZO [facility], [address], [place], [place], [address] , [place] tel: [phone] Judson mmp (chief complaint) Unilateral primary osteoarthritis, [...] ovary syndromeObesity (BMI 30.0-34.9) 0 Judson Ross. [address] [place] [address] [place], [place], [address], . tel:[phone] Referring Provider: Cody Stein, [address] [place] [address] B, [place], [address] . tel:[phone] PREVENTATIVE -EST: 40-64 [facility], [address], [place], [place], [address] , tel: [phone] Judson mmp (chief complaint) Unilateral primary osteoarthritis, [...] lossPolycystic ovary syndromePhysical exam 0 Judson Ross. [address] [place] [address] B, [place], [place], [address], . tel:[phone] Referring Provider: Cody Stein, [address] [place] [address] B, [place], [address] . tel:[phone] OFFICE TKADB-VLS-QT [facility], [address], [place], [place], [address] , tel: [phone] [employer] WWE/PAP (chief complaint) Cervical cancer screeningPCOS (polycystic ovarian syndrome)Hirsuti smSexual dysfunction 0 Jim Camp. [address] [place], [place], [address], . tel:[phone] Referring Provider: Cody Stein, [address] [place] [address], [address] . tel:[phone] BP OFFICE/OUTPA TIENT VISIT EST [facility], [address], [place], [place], [address] , [place] tel: [phone] Judson Essential (primary) hypertension 0 Judson Ross. [address] [place] [address], [address], . tel:[phone] Referring Provider: Cody Stein, [address] [place] [address], [address] . tel:[phone] OFFICE UYQES-TUA-IV [facility], [address], [place], [place], [address] , [place] tel: [phone] Judson MMP (chief complaint) Unilateral primary osteoarthritis, [...] persistent asthma without complication 9 Judson Ross. [address] [place] [address], [address], . tel:[phone] Referring Provider: Cody Stein, [address] [place] [address], [address] . [phone] [facility], [address], [place], [place], [address] , tel: [phone] Judson Unilateral primary osteoarthritis, left knee Sep-3 0- 9 Judson Ross. [address], [place], [address], . tel:[phone] Referring Provider: Cody Stein, [address] [facility], [place], [address] . tel:[phone] [facility], [address], [place], [place], [address] , [place] tel: [phone] Judson No Information Sep-2 3 9 Judson Ross. [address], [place], [address], . tel:[phone] Referring Provider: Cody Stein, [address] [place], [address] . tel:[phone] OFFICE OHGQJ-WDA-SQ PANDED [facility], [address], [place], [place], [address] , tel: [phone] Judson *depressio n (chief complaint) Current moderate episode of major depressive disorder without prior episodeUnilatera l primary osteoarthritis, left knee Sep-1 9 Jim Camp. [address] [place], [place], [address], . tel:[phone] Referring Provider: Cody Stein, [address] [facility], [place], [address] . [phone] [facility], [address], [place], [place], [address] , [place] tel: [phone] Judson Unilateral primary osteoarthritis, left knee Sep-1 9 Judson Ross. [address] [place], [place], [address], . tel:[phone] Referring Provider: Cody Stein, [address] [facility], [place], [address] . tel:[phone] [facility], [address], [place], [place], [address] , [place] tel: [phone] Roper Unilateral primary osteoarthritis, left knee Sep-0 9-201 9 Judson Ross. [address] [facility], [place], [place], [address], [place]. tel:[phone] Referring Provider: Cody Stein, [address] [place] [address], [place], [address] . tel:[phone] [facility], [address], [place], [place], [address] , [place] tel: [phone] Roper Unilateral primary osteoarthritis, left knee Sep-0 5-201 9 Judson Ross. [address], [place], [address], [place]. tel:[phone] Referring Provider: Cody Stein, [address] [place] [address], [address] . tel:[phone] [facility] [address], [place], [place], [address] , [place] tel: [phone] Roper Right arm pain Sep-0 4-201 9 Judson Ross. [address] [facility], [place], [place], [address], [place]. tel:[phone] [facility], [address], [place], [place], [address] , [place] tel: [phone] Roper Unilateral primary osteoarthritis, left knee Aug-1 9-201 9 Judson Ross. [address] [facility], [place], [place], [address], [place]. tel:[phone] Referring Provider: Cody Stein, [address] [facility], [place], [address] . tel:[phone] [facility] [address], [place], [place], [address] , [place] tel: [phone] Roper Unilateral primary osteoarthritis, left knee Aug-0 5-201 9 Judson Ross. [address], [place], [address], [place]. tel:[phone] Referring Provider: Cody Stein, [address] [place] [address] B, [place], [address] . tel:[phone] OFFICE SBTJA-KLT-XF [facility], [address], [place], [place], [address] , tel:[phone] Judson mmp (chief complaint) Lateral epicondylitis of [...] smokerModerate persistent asthma without complication Judson Ross. [address] [place] [address] B, [place], [place], [address], [place]. tel:[phone] Referring Provider: Cody Stein, [address] [place] [address] B, [place], [address] . tel:[phone] [facility] [address], [place], [place], [address] , [place] tel:[phone] Judson Chronic pain of left kneeOther chronic pain 9 [facility]. [address] [place] [address], [address] [place] [address], [id number], [place]. tel:[phone] [facility] [address], [place], [place], [address] , [place] tel:[phone] Judson Left knee pain. (chief complaint) Chronic pain of left knee 9 [facility]. [address] [place] [address], [address] [facility], [place], [place], [address], [place]. tel:[phone] Referring Provider: Cody Stein, [address] [place] [address] B, [place], [address] . tel:[phone] [facility] [address], [place], [place], [id number] , [place] tel: [phone] Judson URI_ (chief complaint) Moderate persistent asthma with acute exacerbation Erasmo Cheney. [address] [place] [address], [address], [place], [place], [id number], [place]. tel:[phone] Referring Provider: Cody Stein, [address] [facility] [address], [place], [address] . tel:[phone] [facility], [address], [place], [place], [id number] , [place] tel: [phone] Judson Lumbosacral radiculopathy due to degenerative joint disease of spineOsteoarthri tis of spine with radiculopathy, cervical regionOsteoarthr itis of multiple joints, unspecified osteoarthritis typeType 2 diabetes mellitus without complication, unspecified supervisor intermediates insulin use statusEssential hypertensionMixe d hyperlipidemiaSc iatica, unspecified lateralityIrrita ble bowel syndrome with diarrheaGastroes ophageal reflux disease, esophagitis presence not specifiedInsomni a, unspecified typeCurrent smokerAsthma, unspecified asthma severity, unspecified whether complicated, unspecified whether persistentImmuni zation refusedLateral epicondylitis of right elbow Judson Ross. [address] [facility] [place], [id number], [place]. tel:[phone] Referring Provider: Cody Stein, [address] [facility], [place], [address] . tel:[phone] [facility], [address], [place], [place], [id number] , [place] tel: [phone] Judson Lumbosacral radiculopathy due to degenerative joint disease of spineOsteoarthri tis of spine with radiculopathy, cervical regionOsteoarthr itis of multiple joints, unspecified osteoarthritis typeType 2 diabetes mellitus without complication, unspecified mcc insulin use statusEssential hypertensionMixe d hyperlipidemiaSc iatica, unspecified lateralityIrrita ble bowel syndrome with diarrheaGastroes ophageal reflux disease, esophagitis presence not specifiedInsomni a, unspecified typeCurrent smokerAsthma, unspecified asthma severity, unspecified whether complicated, unspecified whether persistent 8 Judson Ross. [address] [place], [place], [id number], . tel:[phone] Referring Provider: Cody Stein, [address] [place], [address] . tel:[phone] [facility], [address], [place], [place], [id number] , tel: [phone] Judson Lumbosacral radiculopathy due to degenerative joint disease of spineOsteoarthri tis of spine with radiculopathy, cervical regionOsteoarthr itis of multiple joints, unspecified osteoarthritis typeType 2 diabetes mellitus without complication, unspecified supervisor intermediates insulin use statusEssential hypertensionMixe d hyperlipidemiaSc iatica, unspecified lateralityIrrita ble bowel syndrome with diarrheaGastroes ophageal reflux disease, esophagitis presence not specifiedInsomni a, unspecified typeCurrent smokerAsthma, unspecified asthma severity, unspecified whether complicated, unspecified whether persistentFatigu e, unspecified typeArthralgia of both kneesLow vitamin D level 8 Judson Ross. [address] [place], [place], [id number], . tel:[phone] Referring Provider: Cody Stein, [address] [place], [address] . tel:[phone] [facility], [address], [place], [place], [id number] , tel: [phone] Judson Lumbosacral radiculopathy due to degenerative joint disease of spineOsteoarthri tis of spine with radiculopathy, cervical regionOsteoarthr itis of multiple joints, unspecified osteoarthritis typeType 2 diabetes mellitus without complication, unspecified mcc insulin use statusEssential hypertensionMixe d hyperlipidemiaSc iatica, unspecified lateralityIrrita ble bowel syndrome with diarrheaGastroes ophageal reflux disease, esophagitis presence not specifiedInsomni a, unspecified typePainful menstrual flowCurrent smokerAsthma, unspecified asthma severity, unspecified whether complicated, unspecified whether persistentEye lesionChronic sinusitis, unspecified location 8 Judson Ross. [address] [place], [place], [id number], . tel:[phone] Referring Provider: Cody Stein, [address] [facility], [place], [address] . tel:[phone] [facility], [address], [place], [place], [address] , tel: [phone] Judson Type 2 diabetes mellitus without complication, unspecified supervisor intermediates insulin use statusHypertensi ve heart disease without heart failureMixed hyperlipidemiaPr imary osteoarthritis of both hipsSpondylosis of cervical region without myelopathy or radiculopathySci atica, unspecified lateralityIrrita ble bowel syndrome with diarrheaGastroes ophageal reflux disease, esophagitis presence not specifiedInsomni a, unspecified typePainful menstrual flowCurrent smokerGanglion cystRight wrist tendonitisRight carpal tunnel syndromeLumbosac ral radiculopathy due to degenerative joint disease of spine Judson Ross. [address] [place], [place], [id number], . tel:[phone] Referring Provider: Cody Stein, [address] [place], [address] . tel:[phone] [facility] [address], [place], [place], [address] , tel: [phone] Judson Type 2 diabetes mellitus without complication, unspecified supervisor intermediates insulin use statusHypertensi ve heart disease without heart failureInsomnia, unspecified typePrimary osteoarthritis of both hipsSpondylosis of cervical region without myelopathy or radiculopathyPai nful menstrual flowIrritable bowel syndrome with diarrheaCurrent smokerInfluenza vaccination declinedGastroes ophageal reflux disease, esophagitis presence not specifiedSciatic a, unspecified lateralityStomac h painMedication monitoring encounter Judson Ross. [address] [place] [address], [id number], . tel:[phone] Referring Provider: Cody Stein, [address] [place] [address], [address] . tel:[phone] [facility], [address], [place], [place], [address] , tel: [phone] [place] Primary osteoarthritis of both hipsSpondylosis of cervical region without myelopathy or radiculopathyHyp ertensive heart disease without heart failureType 2 diabetes mellitus without complication, unspecified mcc insulin use statusInsomnia, unspecified typeIrritable bowel syndrome with diarrheaPainful menstrual flowCurrent smoker 7 Judson Ross. [address] [place] [address], [id number], . tel:[phone] Referring Provider: Cody Stein, [address] [place] [address], [address] . tel:[phone] [facility], [address], [place], [place], [address] , tel: [phone] Judson Primary osteoarthritis of both hipsSpondylosis of cervical region without myelopathy or radiculopathyHyp ertensive heart disease without heart failureType 2 diabetes mellitus without complication, unspecified supervisor intermediates insulin use statusInsomnia, unspecified typeIrritable bowel syndrome with diarrheaMixed hyperlipidemia 7 Judson Ross. [address] [place] [address], [id number], . tel:[phone] Referring Provider: Cody Stein, [address] [place] [address], [address] . tel:[phone] [facility], [address], [place], [place], [address] , tel:[phone] [place] Primary osteoarthritis of both hipsSpondylosis of cervical region without myelopathy or radiculopathyHyp ertensive heart disease without heart failureType 2 diabetes mellitus without complication, unspecified mcc insulin use statusInsomnia, unspecified type 6 Judson Ross. [address] [place] [address] B, [place], [place], [address], [place]. tel:[phone] Referring Provider: Cody Stein, [address] [facility], [place], [address] . tel:[phone] [facility], [address], [place], [place], [address] , [place] tel:[phone] Judson Strain of left hip, initial encounterLeft shoulder strain, initial encounter Sep- 2201 6 Ren[place] Cris. [address] [facility], [place], [place], [address]. tel:[phone] Referring Provider: Cody Stein, [address] [place] [address], [place], [address] . tel:[phone] [facility], [address], [place], [place], [address] , [place] tel:[phone] Judson Chronic obstructive pulmonary disease, unspecifiedOther allergic rhinitisMixed hyperlipidemiaOt her fatigueInsomnia, persistentLocali zed osteoarthritis of lumbar spine Jan-0 6 Judson Ross. [address] [facility], [place], [place], [address], [place]. tel:[phone] Referring Provider: Cody Stein, [address] [facility], [place], [address] . tel:[phone] [facility], [address], [place], [place], [address] , [place] tel:[phone] Judson Sciatica, unspecified lateralityCoughC hronic obstructive pulmonary disease, unspecifiedOther allergic rhinitisMorbid obesity, unspecified obesity type Nov- 5 Judson Ross. [address] [facility], [place], [place], [address], [place]. tel:[phone] Referring Provider: Cody Stein, [address] [facility], [place], [address] . tel:[phone] Family History Family Member Type Diagnosis Age At Onset No Information Immunizations Vaccine Date Status Comments [employer] ([employer]) COVID19 Vaccine, 0.3mL per [...] Record Payers Payer name Insurance type Covered green party ID Authorantonio ramirez(s) BCBS ACCESS CHOICE BL [id number] BCBS ACCESS CHOICE BL [id number] BCBS INACTIVE OUT OF STATE [id number] BCBS INACTIVE OUT OF STATE [id number] Social History Type Description Quantity Date Captured [...] Order SC REENING MAMMOGRAM (CAD) Bilateral breast (59833), Body Site: breast, Sent on: Sent Future Order: Radiology Order SC REENING MAMMOGRAM (CAD) Bilateral breast ([id number]), Body Site: breast, Sent on: Sent Future Order: Radiology Order SC REENING MAMMOGRAM (CAD) Bilateral breast ([id number]), Body Site: breast, Sent on: Sent Future Order: Lab Order Urine Cu lture, Routine ([id number]), Collected on: , Sent on: Sent Future Order: Lab Order UA- Dips tick (office Lab) ([id number]), Collected on: Ordered Future Order: Radiology Order SC REENING MAMMOGRAM (CAD) Bilateral breast ([id number]), Body Site: breast, Sent on: Sent History [...] or exercise.Smoker: No change in habits reported. [facility] Pre-Op Clearance : Pt is overall well [...] scheduled for this . No other complaints. [facility] HTN: Pt is med c ompliant. No [...] PCOS: Pt is med compliant. F/u with POULTRY FARM MANAGER as scheduled. No complaints. Metabolic syndrome: per [...] PCOS: Pt is med compliant. F/u with POULTRY FARM MANAGER as scheduled. No complaints. Metabolic syndrome: per [...] PCOS: Pt is med compliant. F/u with POULTRY FARM MANAGER as scheduled. No complaints. Metabolic syndrome: per [...] with Dr. Tracy (spelling?), hand surgeon at [facility]. 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 Has not tried otc diarrhea mediations. [...] Pt has fhx of lymphoma but last hand candle molder visit found no cause for concernMetabolic syndrome: [...] that of lymphoma. Pt followed up with hand candle molder and he could not find anything wrong [...] after cutting back on her hours at [employer]. *depression Patient presents today with persistent feelings [...] score 14. denies suicidal ideations. mmp Lissa Muñoz came in for multiple medical [...] has tried a knee brace from the [employer] store and Ibuprofen with minimal relief. URI_ [...] Pain Management. Encourage to complete stretches and tlcbn-uu-woclpm exercises. Encouraged patient to try and lose some weight. Will monitor. Related to Other spondylosis with radiculopathy, cervical region Unchanged. Insurance will no longer pay for injections. Continue current treatment with Oxycodone 10mg-325mg 1 tab four times daily. Continue following up with Pain Management. Continue following up with Dr. Dolan, orthopaedic surgeon as scheduled. Encourage to complete stretches and dovoe-kz-jnieix exercises. Encouraged patient to try and lose some weight. Will monitor. Related to Other spondylosis with radiculopathy, lumbosacral region Unchanged. Insurance will no longer pay for injections. Continue current treatment with Oxycodone 10mg-325mg 1 tab four times daily. Continue following up with Pain Management. Encourage to complete stretches and vwuto-ls-smgmal exercises. Encouraged patient to try and lose some weight. Will monitor. Related to Spondylosis, unspecified Unchanged. Insurance will no longer pay for injections. Continue current treatment with Oxycodone 10mg-325mg 1 tab four times daily. Continue following up with Pain Management. Encourage to complete stretches and hpwex-nj-pnksqz exercises. Encouraged patient to try and lose [...] continue to monitor. Related to Mixed hyperlipidemia Symptomatic with inc reased anxiety. INCREASE buspirone 10mg to buspirone 15mg 1 tab TID, as directed; Rx sent to pharmacy. Recommend regular exercise to help improve symptoms. Will continue to monitor. Notify for persisting/worsening symptoms. Related to Anxiety Controlled at 134/89 today. Continue current treatment with lisinopril 10mg 1 tab daily. Encouraged low-sodium diet and drink plenty of water daily. Will continue to monitor.Labs- CMP, CBC, A1c Related to Essential (primary) hypertension Managed per OBGYN. C linically stable. Will monitor. Related to Polycystic ovary syndrome Breathing stable. Co ntinue with current inhaler regimen. Continue to monitor. Notify for breathing complaints. Related to Moderate persistent asthma without complication Medication management Symptomatic with alfonzo h under ADONIS arms - BEGIN treatment with Diflucan 100mg 1 tab x 10days, and Nystatin Powder, apply to rash TID; Rx sent to pharmacy. Will monitor - Notify for worsening symptoms. Related to Tinea corporis Pt received order for mammogram today. Related to Encounter for screening mammogram for malignant neoplasm of breast Stable - Continue cu rrent treatment with dicyclomine 20mg 1 tab TID prn and Viberzi 100mg 1 tab BID as directed. Will monitor. Notify our office if you experience changes in your BMs. Related to Irritable bowel syndrome with diarrhea Stable - Will monitor through la bs. Related to Leukocytosis, unspecified type Unchanged. F/u with hand surgeon [...] Pain Management. Encourage to complete stretches and xjqsc-eo-zcqirb exercises. Encouraged patient to try and lose [...] as scheduled. Encourage to complete stretches and pvwyf-gu-mrgsxj exercises. Encouraged patient to try and lose some weight. Will monitor. Related to Other spondylosis with radiculopathy, lumbosacral region Unchanged. Insurance will no longer pay for injections. Continue current treatment with Oxycodone 10mg-325mg 1 tab four times daily. Continue following up with Pain Management. Encourage to complete stretches and ssfjl-cf-mkrwhn exercises. Encouraged patient to try and lose some weight. Will monitor. Related to Spondylosis, unspecified S/p 2 level ACDF wit h plating. With improved symptoms. PDMP has been checked. Continue current treatment with Oxycodone 10mg-325mg 1 tab four times daily. Continue following up with Pain Management. Encourage to complete stretches and bprjb-rr-zvjuys exercises. Encouraged patient to try and lose some weight. Will monitor. Related to Other spondylosis with radiculopathy, cervical region Managed per OBGYN. C linically stable. Will monitor. Related to Polycystic ovary syndrome Stable, no recent fl are-ups. Continue current treatment plan. Avoid trigger foods. Will continue to monitor. Notify for persisting/worsening symptoms. Related to Gastroesophageal reflux disease without esophagitis Breathing stable. Co ntinue with current inhaler regimen. Continue to monitor. Notify for breathing complaints. Related to Moderate persistent asthma without complication Symptoms controlled. Continue treatment with buspirone 10mg [...] Related to Essential (primary) hypertension Medication management Stable - Will monitor through [...] as scheduled. Encourage to complete stretches and bvlcj-um-oddxfb exercises. Encouraged patient to try and lose some weight. Will monitor. Related to Other spondylosis with radiculopathy, lumbosacral region Unchanged. Insurance will no longer pay for injections. Continue current treatment with Oxycodone 10mg-325mg 1 tab four times daily. Continue following up with Pain Management. Encourage to complete stretches and exees-nq-twecpq exercises. Encouraged patient to try and lose some weight. Will monitor. Related to Unilateral primary osteoarthritis, left knee S/p 2 level ACDF wit h plating. With improved symptoms. PDMP has been checked. Continue current treatment with Oxycodone 10mg-325mg 1 tab four times daily. Continue following up with Pain Management. Encourage to complete stretches and opztq-gs-tcncfb exercises. Encouraged patient to try and lose some weight. Will monitor. Related to Other spondylosis with radiculopathy, cervical region Unchanged. Insurance will no longer pay for injections. Continue current treatment with Oxycodone 10mg-325mg 1 tab four times daily. Continue following up with Pain Management. Encourage to complete stretches and awzpx-zc-wxtxra exercises. Encouraged patient to try and lose some weight. Will monitor. Related to Spondylosis, unspecified Managed per OBGYN. C linically stable. Will [...] as scheduled. Encourage to complete stretches and xjxsc-kj-uqbaxx exercises. Encouraged patient to try and lose [...] as scheduled. Encourage to complete stretches and qmvux-as-ecauxn exercises. Encouraged patient to try and lose [...] as scheduled. Encourage to complete stretches and vlisj-xr-ghxljm exercises. Encouraged patient to try and lose [...] as scheduled. Encourage to complete stretches and ipatg-pm-puynac exercises. Encouraged patient to try and lose [...] Carpal tunnel syndrome of right wrist Stable Encouraged pr oper sleep hygiene. Monitor. [...] Allergic rhinitis, unspecified seasonality, unspecified trigger Unchanged. Continue current treatment with Hydrocodone 5-325mg 1 tab TID prn, Nabumetone 750mg 1 tab BID and Gabapentin 300mg 2 tabs TID. Continue following up with orthopaedic surgeon as scheduled. Encourage to complete stretches and bmmgk-ao-dikifw exercises. Encouraged patient to try and lose some weight. Will monitor. Related to Lumbosacral radiculopathy due to degenerative joint disease of spine Stable. Continue cur rent treatment with Hydrocodone 5-325mg 1 tab TID prn and Nabumetone 750mg 1 tab BID as directed. Will monitor. Related to Coccyxdynia Unchanged. Continue current treatment with Hydrocodone 5-325mg 1 tab TID prn, Nabumetone 750mg 1 tab BID and Gabapentin 300mg 2 tabs TID. Continue following up with orthopaedic surgeon as scheduled. Encourage to complete stretches and whygk-nu-jctqol exercises. Encouraged patient to try and lose some weight. Will monitor. Related to Other chronic pain Unchanged. Continue current treatment with Hydrocodone 5-325mg 1 tab TID prn, Nabumetone 750mg 1 tab BID and Gabapentin 300mg 2 tabs TID. Continue following up with orthopaedic surgeon as scheduled. Encourage to complete stretches and avcyn-sh-ypikww exercises. Encouraged patient to try and lose some weight. Will monitor. Related to Cervical radiculopathy Stable - Continue cu rrent treatment plan. Notify for new/worsening urinary symptoms. Will monitor.sening urinary symptoms. Will monitor. Related to Urinary incontinence, unspecified type Unchanged. Continue current treatment with Hydrocodone 5-325mg 1 tab TID prn, Nabumetone 750mg 1 tab BID and Gabapentin 300mg 2 tabs TID. Continue following up with orthopaedic surgeon as scheduled. Encourage to complete stretches and tygck-ck-ojhqli exercises. Encouraged patient to try and lose some weight. Will monitor. Related to Unilateral primary osteoarthritis, left knee Unchanged. Continue current treatment with Hydrocodone 5-325mg 1 tab TID prn, Nabumetone 750mg 1 tab BID and Gabapentin 300mg 2 tabs TID. Continue following up with orthopaedic surgeon as scheduled. Encourage to complete stretches and lxzlp-jx-hfueor exercises. Encouraged patient to try and lose some weight. Will monitor. Related to Osteoarthritis of spine with radiculopathy, cervical region Breathing stable. Co ntinue with current inhaler [...] as scheduled. Encourage to complete stretches and uioyh-kt-cvkvbo exercises. Encouraged patient to try and lose [...] as scheduled. Encourage to complete stretches and uwtgm-tg-qnrkbs exercises. Encouraged patient to try and lose some weight. Will monitor. Related to Other chronic pain Unchanged. Continue current treatment with Hydrocodone 5-325mg 1 tab TID prn, Nabumetone 750mg 1 tab BID and Gabapentin 300mg 2 tabs TID. Continue following up with orthopaedic surgeon as scheduled. Encourage to complete stretches and oaxph-ao-iymrcj exercises. Encouraged patient to try and lose some weight. Will monitor. Related to Cervical radiculopathy Pt knows the risks o f taking a controlled substance; have previously discussed risks and benefits of use. Continue Hydrocodone 5-325mg 1 tab TID prn as prescribed. Will monitor. RHM: Discussed and recommended COVID-19 booster. F/U in 4 months or sooner if neededCharting performed by Monica Trivedi, acting as scribe for Kam Roper.Kam Roper, DO: I reviewed the chart and agree with and approve of the documentation. Related to Opioid use Stable. Continue cur rent treatment with Hydrocodone 5-325mg 1 tab TID prn and Nabumetone 750mg 1 tab BID as directed. Will monitor. Related to Coccyxdynia Stable - Continue tr eatment with Xyzal 5mg 1 tab QHS as directed. Will monitor. Related to Allergic rhinitis, unspecified seasonality, unspecified trigger BMI of 33 today. Enc ouraged weight loss by making healthy dietary choices and increased activity. Focus on drinking plenty of water daily and getting adequate sleep. Monitor. Related to Obesity (BMI 30.0-34.9) Stable Encouraged pr oper sleep hygiene. Monitor. Notify for changes in sleeping pattern. Related to Insomnia, unspecified type Unchanged. F/u with hand surgeon as scheduled. Will monitor. Related to Carpal tunnel syndrome of right wrist Stable - Continue cu rrent treatment plan. Notify for new/worsening urinary symptoms. Will monitor. Related to Urinary incontinence, unspecified type Stable - Continue cu rrent [...] as scheduled. Encourage to complete stretches and xbiyz-pm-gyxakc exercises. Encouraged patient to try and lose some weight. Will monitor. Related to Lumbosacral radiculopathy due to degenerative joint disease of spine Unchanged. Continue current treatment with Hydrocodone 5-325mg 1 tab TID prn, Nabumetone 750mg 1 tab BID and Gabapentin 300mg 2 tabs TID. Continue following up with orthopaedic surgeon as scheduled. Encourage to complete stretches and lyeoo-cd-wksebm exercises. Encouraged patient to try and lose some weight. Will monitor. Related to Unilateral primary osteoarthritis, left knee Managed per OBGYN. C ontinue current treatment with Metformin ER 500mg 1 tablet BID, per recommendation of OBGYN. Will monitor. Related to Polycystic ovary syndrome Symptoms controlled. Continue current treatment with buspirone [...] as scheduled. Encourage to complete stretches and smwti-nk-unvafr exercises. Encouraged patient to try and lose some weight. Will monitor. Related to Osteoarthritis of spine with radiculopathy, cervical region Unchanged. Continue current treatment with Hydrocodone 5-325mg 1 tab TID prn, Nabumetone 750mg 1 tab BID and Gabapentin 300mg 2 tabs TID. Continue following up with orthopaedic surgeon as scheduled. Encourage to complete stretches and ypauf-ip-ddckeo exercises. Encouraged patient to try and lose [...] monitor. Related to Opioid use BMI of 32 today. Enc ouraged weight loss by making healthy dietary choices and increased activity. Focus on drinking plenty of water daily and getting adequate sleep. Monitor. Related to Obesity (BMI 30.0-34.9) Stable - D/C treatme nt with amitriptyline [...] monitor. Related t o Vitamin D deficiency Stable - Continue cu rrent treatment with dicyclomine 20mg 1 tab TID prn and Viberzi 75mg 1 tab BID as directed. Will monitor. Notify our office if you experience changes in your BMs. Related to Irritable bowel syndrome with diarrhea Unchanged. F/u with hand surgeon as scheduled. Will monitor. Related to Carpal tunnel syndrome of right wrist Stable - Continue tr eatment with Xyzal [...] as scheduled. Encourage to complete stretches and pxrzj-zo-gwmcjs exercises. Encouraged patient to try and lose some weight. Will monitor. Related to Unilateral primary osteoarthritis, left knee Unchanged. Continue current treatment with Hydrocodone 5-325mg 1 tab TID prn, Nabumetone 750mg 1 tab BID and Gabapentin 300mg 2 tabs TID. Continue following up with orthopaedic surgeon as scheduled. Encourage to complete stretches and oasod-vs-annghw exercises. Encouraged patient to try and lose some weight. Will monitor. Related to Osteoarthritis of spine with radiculopathy, cervical region Unchanged. Continue current treatment with Hydrocodone 5-325mg 1 tab TID prn, Nabumetone 750mg 1 tab BID and Gabapentin 300mg 2 tabs TID. Continue following up with orthopaedic surgeon as scheduled. Encourage to complete stretches and qeuia-lt-afuroe exercises. Encouraged patient to try and lose some weight. Will monitor. Related to Spondylosis Unchanged. Continue current treatment with Hydrocodone 5-325mg 1 tab TID prn, Nabumetone 750mg 1 tab BID and Gabapentin 300mg 2 tabs TID. Continue following up with orthopaedic surgeon as scheduled. Encourage to complete stretches and qyope-in-josfsp exercises. Encouraged patient to try and lose [...] as scheduled. Encourage to complete stretches and vrbqi-up-urfpgv exercises. Encouraged patient to try and lose [...] as scheduled. Encourage to complete stretches and dlfbq-ha-xntlrd exercises. Encouraged patient to try and lose [...] as scheduled. Encourage to complete stretches and cqggu-ef-ydyzlo exercises. Encouraged patient to try and lose some weight. Will monitor. Related to Osteoarthritis of spine with radiculopathy, cervical region Unchanged. Continue current treatment with Hydrocodone 5-325mg 1 tab TID prn, Nabumetone 750mg 1 tab BID and Gabapentin 300mg 2 tabs TID. Continue following up with orthopaedic surgeon as scheduled. Encourage to complete stretches and pdbtk-sr-oqegmv exercises. Encouraged patient to try and lose [...] as scheduled. Encourage to complete stretches and xawey-en-nwouzv exercises. Encouraged patient to try and lose some weight. Will monitor. Related to Lumbosacral radiculopathy due to degenerative joint disease of spine Unchanged. Continue current treatment with Hydrocodone 5-325mg 1 tab TID as needed, Nabumetone 750mg 1 tab BID and Gabapentin 300mg 2 tabs QID. Continue following up with orthopaedic surgeon as scheduled. Encourage to complete stretches and rkhhr-pt-uuhjap exercises. Encouraged patient to try and lose [...] as scheduled. Encourage to complete stretches and gvqvm-am-nrmsua exercises. Encouraged patient to try and lose some weight. Will monitor. Related to Unilateral primary osteoarthritis, left knee Unchanged. Continue current treatment with Hydrocodone 5-325mg 1 tab TID as needed, Nabumetone 750mg 1 tab BID and Gabapentin 300mg 2 tabs QID. Continue following up with orthopaedic surgeon as scheduled. Encourage to complete stretches and baznd-ny-fmvlxi exercises. Encouraged patient to try and lose [...] Related to Obesity (BMI 30.0-34.9) Stable - Discussed d ecreased availability of [...] Related to Irritable bowel syndrome with diarrhea Unchanged; with wors ening symptoms. Continue current treatment with Hydrocodone 5-325mg 1 tab TID as needed, Relafen 750mg 1 tablet BID, and Gabapentin 300mg 2 tabs QID. Continue following up with orthopaedic surgeon as scheduled. Encourage to complete stretches and skcys-ab-geelxo exercises. Encouraged patient to try and lose some weight. Will monitor. Related to Unilateral primary osteoarthritis, left knee Symptoms controlled. Continue current treatment with citalopram [...] as scheduled. Encourage to complete stretches and rfdiw-uu-hufayw exercises. Encouraged patient to try and lose [...] as scheduled. Encourage to complete stretches and sidif-iv-tfukvm exercises. Encouraged patient to try and lose some weight. Will monitor. Related to Spondylosis Managed per OBGYNChanel Bansal ontinue current treatment with Metformin ER 500mg 1 tablet BID, per recommendation of OBGYN. Will monitor. Related to Polycystic ovary syndrome Last A1c was 5.8% on 02/2021. Encouraged [...] as scheduled. Encourage to complete stretches and suvhy-ur-padyuy exercises. Encouraged patient to try and lose some weight. Will monitor. Related to Lumbosacral radiculopathy due to degenerative joint disease of spine Breathing stable. Co ntinue with current inhaler regimen; refilled ProAir today. Continue to monitor. Notify for breathing complaints. Related to Moderate persistent asthma without complication Stable - Currently m anaging through diet and lifestyle. Encouraged a low-cholesterol diet with regular cardiovascular exercise as tolerated. Will continue to monitor. Related to Mixed hyperlipidemia Controlled at 127/89 today. Currently managing through diet and lifestyle. Encouraged low-sodium diet and drink plenty of water daily. Will continue to monitor. Related to Essential (primary) hypertension Medication management Unchanged; with wors ening symptoms. Continue current treatment with Hydrocodone 5-325mg 1 tab TID as needed, Relafen 750mg 1 tablet BID, and Gabapentin 300mg 2 tabs QID. Continue following up with orthopaedic surgeon as scheduled. Encourage to complete stretches and kcnqa-vb-mecuka exercises. Encouraged patient to try and lose some weight. Will monitor. Related to Unilateral primary osteoarthritis, left knee Unchanged. Continue current treatment with Hydrocodone 5-325mg 1 tab TID as needed, Relafen 750mg 1 tablet BID, and Gabapentin 300mg 2 tabs QID. Continue following up with orthopaedic surgeon as scheduled. Encourage to complete stretches and jwqhh-pe-wslpxs exercises. Encouraged patient to try and lose some weight. Will monitor. Related to Spondylosis Unchanged. Continue current treatment with Hydrocodone 5-325mg 1 tab TID as needed, Relafen 750mg 1 tablet BID, and Gabapentin 300mg 2 tabs QID. Continue following up with orthopaedic surgeon as scheduled. Encourage to complete stretches and bquqw-ha-gwqxyz exercises. Encouraged patient to try and lose [...] Non-seasonal allergic rhinitis due to pollen Pt knows the risks o f taking a controlled substance; have previously discussed risks and benefits of use. Continue Hydrocodone 5-325mg 1 tab TID prn as prescribed. Will monitor. Related to Opioid use Pt received requisit ion for screening mammogram in office today.RHM: Pt received [employer] COVID-19 vaccine x1 on 06/14/2021 and is scheduled for x2 on 07/11/2021. F/U in 4 months or sooner if neededCharting performed by Monica Head, acting as scribe for Kam Roper.Kam Roper, DO: I reviewed the chart and agree with and approve of the documentation. Related to Encntr screen mammogram for malignant neoplasm of breast BMI of 32.9 today. E ncouraged healthy [...] as scheduled. Encourage to complete stretches and xfkxd-na-rqcfet exercises. Encouraged patient to try and lose [...] as scheduled. Encourage to complete stretches and auvjj-vb-kekqsh exercises. Encouraged patient to try and lose some weight. Will monitor. Related to Osteoarthritis of spine with radiculopathy, cervical region Stable. Continue cur rent treatment with Hydrocodone 5-325mg 1 tab TID as needed, Relafen 750mg 1 tablet BID, and Gabapentin 300mg 2 tabs QID. Continue following up with orthopaedic surgeon as scheduled. Encourage to complete stretches and xqxja-vx-wcefma exercises. Encouraged patient to try and lose [...] foot edema. Encourage to complete stretches and vcjhg-gx-eajtyy exercises. Encouraged patient to try and lose some weight. Will monitor. Related to Unilateral primary osteoarthritis, left knee Stable. Continue cur rent treatment with Hydrocodone 5-325mg 1 tab TID as needed, Relafen 750mg 1 tablet BID, and Gabapentin 300mg 2 tabs QID. Continue following up with orthopaedic surgeon as scheduled. Encourage to complete stretches and rdkcf-if-tqozlu exercises. Encouraged patient to try and lose some weight. Will monitor. Related to Spondylosis Stable. Continue cur rent treatment with Hydrocodone 5-325mg 1 tab TID as needed, Relafen 750mg 1 tablet BID, and Gabapentin 300mg 2 tabs QID. Continue following up with orthopaedic surgeon as scheduled. Encourage to complete stretches and ksean-zw-kwridc exercises. Encouraged patient to try and lose some weight. Will monitor. Related to Lumbosacral radiculopathy due to degenerative joint disease of spine Managed per OBGYN. C ontrolled by Metformin ER 500mg 1 tablet BID and Spironolactone 50mg 1 tab BID per recommendation of OBGYN. Will monitor. Related to Polycystic ovary syndrome Controlled. Continue current treatment with Trazodone 100mg 1 tablet at bedtime. Encourage good sleep hygiene. Will monitor. Related to Insomnia, unspecified type Last A1c was 5.8% on 12/06/2020. Controlled. Continue current treatment with Metformin ER 500mg 1 tab BID. Encourage diabetic diet and regular exercise as tolerated. Encourage annual eye exams and vigilant self-foot exams. Will continue to monitor.Labs: [id number]: Able to self-manage condition. Goals: Your goal [...] wrist See plan #12Labs: CM P, CBC, [id number] up in 3 months or sooner if [...] as scheduled. Encourage to complete stretches and wjado-ml-qcwfjj exercises. Encouraged patient to try and lose [...] as scheduled. Encourage to complete stretches and xychi-gc-psogoo exercises. Encouraged patient to try and lose some weight. Will monitor. Related to Osteoarthritis of spine with radiculopathy, cervical region Symptomatic. INCREAS E Hydrocodone 5-325mg 1 tab TID as needed. Continue current treatment - Relafen 750mg 1 tablet BID, and Gabapentin 300mg 2 tabs QID. Continue following up with orthopaedic surgeon as scheduled. Encourage to complete stretches and gvauv-va-yaydys exercises. Encouraged patient to try and lose [...] as scheduled. Encourage to complete stretches and wojcr-ly-wvgstr exercises. Encouraged patient to try and lose some weight. Will monitor. Related to Lumbosacral radiculopathy due to degenerative joint disease of spine Symptomatic. INCREAS E Hydrocodone 5-325mg 1 tab TID as needed. Continue current treatment - Relafen 750mg 1 tablet BID, and Gabapentin 300mg 2 tabs QID. Continue following up with orthopaedic surgeon as scheduled. Encourage to complete stretches and jhpbr-zv-fnjmlw exercises. Encouraged patient to try and lose [...] continue to monitor. Related to Mixed hyperlipidemia Breathing stable. Co ntinue current treatment - ProAir HFA 90mcg 2 puffs Q4-6hours prn, and Dulera 200-5mcg 2 puffs twice daily per pulmonology (refilled today). Encouraged exercise to improve endurance. Continue following up with pulmonology as scheduled. Will monitor. Related to Moderate persistent asthma without complication Controlled without m edication at this time. Encourage Pt to maintain a low-sodium diet and regular exercise as tolerated. Will continue to monitor. Notify for SOB, CP, palpitations, lightheadedness, or edema.CMP, CBC Related to Essential (primary) hypertension Medication management Dietary management e ducation, guidance, [...] Will monitor. Related to Polycystic ovary syndrome Asymptomatic. Will monitor. Rela kathrine to Fatigue, unspecified type Controlled. Continue with Trazodone 100mg 1 tablet at bedtime. Encourage good sleep hygiene. Will monitor. Related to Insomnia, unspecified type Breathing stable tod ay. Continue [...] mo nitor. Related to Leukocytosis, unspecified type HA1c 5.7% on 019. Continue current treatment [...] UA for micro Related to Metabolic syndrome Controlled with diet [...] tabs QID. Encourage to complete stretches and bzaxp-kv-citcnm exercises. Encouraged patient to try and lose some weight. Will monitor. Related to Sciatica, unspecified laterality Symptomatic. Continu e following up with orthopaedic surgeon as scheduled. Continue with Hydrocodone 5-325mg 1 tab every 12 hours as needed, Relafen 750mg 1 tablet BID, and Gabapentin 300mg 2 tabs QID. Encourage to complete stretches and utcwr-ax-noczko exercises. Encouraged patient to try and lose some weight. Will monitor. Related to Spondylosis Symptomatic. Continu e following up with orthopaedic surgeon as scheduled. Continue with Hydrocodone 5-325mg 1 tab every 12 hours as needed, Relafen 750mg 1 tablet BID, and Gabapentin 300mg 2 tabs QID. Encourage to complete stretches and fdcrm-df-docpac exercises. Encouraged patient to try and lose some weight. Will monitor. Related to Osteoarthritis of spine with radiculopathy, cervical region Symptomatic. Continu e following up with orthopaedic surgeon as scheduled. Continue with Hydrocodone 5-325mg 1 tab every 12 hours as needed, Relafen 750mg 1 tablet BID, and Gabapentin 300mg 2 tabs QID. Encourage to complete stretches and vpniu-mw-oobvwe exercises. Encouraged patient to try and lose some weight. Will monitor. Related to Lumbosacral radiculopathy due to degenerative joint disease of spine Symptomatic. Continu e following up with orthopaedic surgeon as scheduled. Continue with Hydrocodone 5-325mg 1 tab every 12 hours as needed, Relafen 750mg 1 tablet BID, and Gabapentin 300mg 2 tabs QID. Encourage to complete stretches and yqpjg-pg-fvuzfy exercises. Encouraged patient to try and lose [...] Will monitor. Related to Polycystic ovary syndrome Asymptomatic. Will monitor. Rela kathrine to Fatigue, unspecified type Controlled. Continue with Trazodone 100mg 1 tablet at bedtime. Encourage good sleep hygiene. Will monitor. Related to Insomnia, unspecified type Breathing stable tod ay. Continue [...] CMP, CBC Related to Essential (primary) hypertension Stable. Encourage to maintain a healthy low-fat [...] have been identified. Related to Metabolic syndrome Symptomatic. Continu e following up with orthopaedic surgeon as scheduled. Continue with Hydrocodone 5-325mg 1 tab every 12 hours as needed. STOP Feldene 20mg 1 tab daily. START Relafen 750mg 1 tablet BID. Continue with Gabapentin 300mg 2 tabs QID. Encourage to complete stretches and vyhpy-gs-ombooy exercises. Encouraged patient to try and lose some weight. Will monitor. Related to Unilateral primary osteoarthritis, left knee Controlled. Continue following up with orthopaedic surgeon as scheduled. Continue with Hydrocodone 5-325mg 1 tab every 12 hours as needed. STOP Feldene 20mg 1 tab daily. START with Relafen 750mg 1 tablet BID. Continue with Gabapentin 300mg 2 tabs QID. Encourage to complete stretches and vzeyq-us-eevigj exercises. Encouraged patient to try and lose [...] tabs QID. Encourage to complete stretches and oebls-it-dcudbe exercises. Encouraged patient to try and lose [...] tabs QID. Encourage to complete stretches and eaulq-eo-kvbgbg exercises. Encouraged patient to try and lose some weight. Will monitor. Related to Spondylosis Symptomatic. Continu e following up with orthopaedic surgeon as scheduled. Continue with Hydrocodone 5-325mg 1 tab every 6 hours as needed. STOP Feldene 20mg 1 tab daily. START Relafen 750mg 1 tablet BID Continue with Gabapentin 300mg 2 tabs QID. Encourage to complete stretches and esyoz-bi-yhouva exercises. Encouraged patient to try and lose [...] and TSH Related to Fatigue, unspecified type Controlled. Continue with Trazodone 100mg 1 tablet [...] as directed. Encourage to complete stretches and ibcuc-yg-dcumwo exercises. Encouraged patient to try and lose some weight. Will monitor. Related to Sciatica, unspecified laterality Stable. Will continu e to monitor. Notify for worsening symptoms. Related to Irritable bowel syndrome with diarrhea WBC 16.78 on 019. Will refer to hand candle molder if WBC remains elevated today. Will monitor. Related to Leukocytosis, unspecified type Encourage to mainestuardo n a healthy low-fat diet and regular [...] as directed. Encourage to complete stretches and lgkuy-xm-uybngo exercises. Encouraged patient to try and lose [...] as directed. Encourage to complete stretches and hmkdt-cz-bqvpsd exercises. Encouraged patient to try and lose [...] as directed. Encourage to complete stretches and aduep-ai-cizbmt exercises. Encouraged patient to try and lose [...] tab QHS. Encourage to complete stretches and cemej-bs-syohrl exercises. Will continue to monitor. Related to [...] as directed. Encourage to complete stretches and isleh-gn-xthqgd exercises. Encouraged patient to try and lose [...] as directed. Encourage to complete stretches and bxsrx-hu-evqyvw exercises. Encouraged patient to try and lose some weight. Will monitor. Related to Lateral epicondylitis of right elbow WBC 16.78 on 019. Will refer to hand candle molder if WBC remains elevated today. Will monitor. Related to Leukocytosis, unspecified type Pain persists. Judy nue following up with orthopaedic surgeon as scheduled. Continue with Hydrocodone 5-325mg 1 tab every 6 hours as needed and Feldine 20mg 1 tab daily. Gabapentin 300mg 2 tabs QID and Flexeril 10mg 1 tab QHS as directed. Encourage to complete stretches and wospc-mt-woekzl exercises. Encouraged patient to try and lose [...] as directed. Encourage to complete stretches and cacve-wd-tdexfu exercises. Encouraged patient to try and lose [...] as directed. Encourage to complete stretches and bzarm-ft-wvsiwj exercises. Encouraged patient to try and lose [...] Related to Irritable bowel syndrome with diarrhea Breathing stable tod ay. Continue current treatment [...] tab QHS. Encourage to complete stretches and sklgv-pm-dxzosx exercises. Will continue to monitor. Related to Sciatica, unspecified laterality Controlled with diet and exercise. Encourage Pt [...] as directed. Encourage to complete stretches and mnosf-pf-bdukmv exercises. Encouraged patient to try and lose some weight. Will monitor. Related to Osteoarthritis of spine with radiculopathy, cervical region HA1c 5.2% on 08/26/20 18. Continue current [...] have been identified. Related to Metabolic syndrome Pain persists. Judy nue with Gabapentin 300mg 2 tabs QID and Flexeril 10mg 1 tab QHS as directed. Encourage to complete stretches and cvnfh-tc-vlnxzr exercises. Encouraged patient to try and lose some weight. Will monitor. Related to Lumbosacral radiculopathy due to degenerative joint disease of spine Pain persists. Judy nue with Gabapentin 300mg 2 tabs QID and Flexeril 10mg 1 tab QHS as directed. Encourage to complete stretches and zlgwe-hq-hcmalr exercises. Encouraged patient to try and lose some weight. Will monitor. Related to Lateral epicondylitis of right elbow WBC 19.61 on 019 and 19.23 on 05/20/2019. Will refer to hand candle molder if WBC remains elevated today. Will monitor. [...]
== END 2024-12-09 01:52 | disposition home or self-care (01) ==
PROVIDERS: Emergency Provider Physician Assistant
DX: M54.50 Low back pain, unspecified (principal); I10 Essential (primary) hypertension; E78.5 Hyperlipidemia, unspecified; E28.2 Polycystic ovarian syndrome; J45.909 Unspecified asthma, uncomplicated; K58.0 Irritable bowel syndrome with diarrhea; F17.210 Nicotine dependence, cigarettes, uncomplicated; Z87.442 Personal history of urinary calculi; Z90.49 Acquired absence of other specified parts of digestive tract; Z98.1 Arthrodesis status
CPT/HCPCS: 36415; 74177; 80053; 81001; 81025; 83690; 85025; 96374; 96375; 99284; J1171; J2405; Q9967

== ENCOUNTER 2024-12-10 14:17 | Outpatient (CLI) | payer BC, SELFPAY ==
[2024-12-10 15:14] LABS: Add Urine Microscopic? YES; Appearance Urine Cloudy (Clear); Bacteria Urine 1+ /hpf; Bilirubin Urine Negative (Negative); Blood Urine Negative (Negative); Color Urine Dark Yellow (Yellow); Glucose Urine UA Negative (Negative); Ketones Urine Trace mg/dL (Negative); Leukocyte Esterase Ur Negative LEU/UL (Negative); Nitrate Urine Negative (Negative); Non Pathogenic Casts 0-2; Protein Urine Negative (Negative); Specific Grav Ur 1.022 (1.001-1.035); Squamous Epithelial Cell Urine Moderate /hpf (Few); WBC Urine 0-5 /hpf (0-3); pH Urine 5.5 (5.0-9.0)
[2024-12-10 15:23] LABS: Partial Thromboplastin Time 28.4 Seconds (22.3-36.8)
--- OUTSIDE RECORDS SUMMARY | 2024-12-12 02:06 | XMS_ITS | Clinical Summary ---
Author Organization [facility] Address [address] [place] [address] Care Team Providers Care Production Artist Name Role Phone Unavailable Primary Care Provider Unavailabl e Encounters Date Type Department Care Team Description 12/10/2024 External Device Data [facility]STRACTION Provider, Abstract 11/27/2024 7:30 AM LARGE ANIMAL VETERINARIAN Ancillary Procedure [facility] [address] [place] [address] Sameer Florez MD History of fracture; Lumbar radiculopathy 11/27/2024 7:00 AM LARGE ANIMAL VETERINARIAN Ancillary Procedure [facility] [address] [place] [id number] Sameer Florez MD History of fracture; Cervical radiculopathy 10/21/2024 External Device Data [facility]STRACTION Provider, Abstract 2024 External Device Data [facility]STRACTION Provider, Abstract from Last 3 Months Social History Tobacco Use Types Packs/Day Years Used Date Smoking Tobacco: Never Assessed Comments Unknown Sex and Gender Information Value Date Recorded Sex Assigned at Not on file Legal Sex Female 5:32 PM LARGE ANIMAL VETERINARIAN Gender Identity Not on file Sexual Orientation [...] LUMBAR WO CONTRAST Routine 11/27/2024 7:45 AM LARGE ANIMAL VETERINARIAN History of fracture Lumbar radiculopathy MRI CERVICAL WO CONTRAST Routine 11/27/2024 7:14 AM LARGE ANIMAL VETERINARIAN History of fracture Cervical radiculopathy from Last 3 Months Results * MRI LUMBAR WO CONTRAST (11/27/2024 7:45 AM LARGE ANIMAL VETERINARIAN) Anatomical Region Laterality Modality Spine Magnetic Resonan ce 11/27/2024 7:45 AM LARGE ANIMAL VETERINARIAN Impressions 11/27/2024 7:53 AM LARGE ANIMAL VETERINARIAN IMPRESSION: ?? 1. Mild degenerative change without significant central canal or neural foraminal narrowing seen. A left paracentral annular fissure is apparent at L5-S1. Narrative 11/27/2024 7:53 AM LARGE ANIMAL VETERINARIAN EXAM: MRI LUMBAR WO CONTRAST DATE: 11/27/2024 [...] MRI CERVICAL WO CONTRAST (11/27/2024 7:14 AM LARGE ANIMAL VETERINARIAN) Anatomical Region Laterality Modality Spine Magnetic Resonan ce 11/27/2024 7:15 AM LARGE ANIMAL VETERINARIAN Impressions 11/27/2024 7:33 AM LARGE ANIMAL VETERINARIAN IMPRESSION: ?? Susceptibility artifact associated with fusion from C5 through C7. At C5/6 and C6/7, uncovertebral joint hypertrophy mildly narrows the left neural foramen. Narrative 11/27/2024 7:33 AM LARGE ANIMAL VETERINARIAN EXAM: MRI CERVICAL WO CONTRAST DATE: 11/27/2024 [...] Final Result from Last [address] [place] [place] [address] [employer] ACCESS CHOICE
--- OUTSIDE RECORDS SUMMARY | 2024-12-12 02:06 | XMS_ITS | Referral Summary ---
Author Organization [facility] Address [address] [place] [address] Care Team Providers Care Drafter Electrical Name Role Phone Judson Dino SalgadoEmil Primary Care Provider [phone] Source Comments [facility],non-owned Affiliates and Associated Physician Practices is amultiple site organization consisting of ambulatory clinics and hospital sitesin [place], [place], [place] and [place]. This disclosure is being madepursuant to the Care Everywhere program and may not contain all information available regarding this patient. Last updated 18.[facility] Allergies No known active allergies Medications * [...] of Treatment Not on file Care Teams Drafter Electrical Relationship Specialty Start Date End Date Dino Roper DO [address] [place] [address] [place] [address] PCP - General Family Medicine 08/30/20
--- OUTSIDE RECORDS SUMMARY | 2024-12-12 02:06 | XMS_ITS | Continuity of Care Document ---
Author Organization [employer] Address [address] [place] [address] Phone Care Team Providers Care Incinerator Attendant Name Role Phone Cody Roper DO Unavailable [...] QN (URINE) CREATININE, (U-R) ROUTINE VENIPUNCTURE OFFICE CASCG-CUC-ABFRHOAF BODY MASS INDEX DOCD SYST BP GE 130 - 139MM HG DIAST BP 80-89 MM HG GENERAL HEALTH PANEL LIPID PANEL ROUTINE VENIPUNCTURE OFFICE MEPPO-XFZ-EHZJRMRI BODY MASS INDEX DOCD SYST BP LT 130 MM HG DIAST BP < 80 MM HG VITAMIN D, 25-HYDROXY OFFICE LKDCS-ODK-BQIDLDTC BODY MASS INDEX DOCD SYST BP LT 130 MM HG DIAST BP 80-89 MM HG ANTINUCLEAR ANTIBODIES (JAYCE) BASIC METABOLIC PANEL(BMP) C-REACTIVE PROTEIN (CRP) HEMATOCRIT (HCT) HEMOGLOBIN (HGB) HEMOGLOBIN A1C HGA1C, GLYCO RHEUMATOID FACTOR: QN RBC SED RATE, AUTOMATED URIC ACID, (S) URINALYSIS, DIPSTICK (UA) - Office Lab D ROUTINE VENIPUNCTURE OFFICE ZWCHH-UMV-RLWHHBQU BODY MASS INDEX DOCD SYST BP LT 130 MM HG DIAST BP 80-89 MM HG BASIC METABOLIC PANEL(BMP) HEMATOCRIT (HCT) HEMOGLOBIN (HGB) HEMOGLOBIN A1C HGA1C, GLYCO LIPID PANEL VITAMIN D, 25-HYDROXY ROUTINE VENIPUNCTURE Pt inelig neg scrn depres OFFICE GHWGQ-IVT-AGOVEAWK BODY MASS INDEX DOCD SYST BP GE 130 - 139MM HG DIAST BP 80-89 MM HG EKG (ELECTROCARDIOGRAM) OFFICE LRZYT-KEJ-NOJKLPGG BODY MASS INDEX DOCD SYST BP GE [...] - Office Lab J ROUTINE VENIPUNCTURE OFFICE VFGPB-VNJ-STQYBOKB John-19-2023 BODY MASS INDEX DOCD SYST BP GE 130 - 139MM HG DIAST BP 80-89 MM HG OFFICE BVFQZ-MNV-FTPKWLJW BODY MASS INDEX DOCD SYST BP LT 130 MM HG DIAST BP < 80 MM HG DSCHRG MED/CURRENT MED MERGE OFFICE VZKQR-YVA-JKAGNWOQ SYST BP LT 130 MM HG DIAST BP 80-89 MM HG CBC, INC PLATELETS AND DIFFERENTIAL COMPREHEN METABOLIC PANEL CMP 2 HEMOGLOBIN A1C HGA1C, GLYCO LIPID PANEL VITAMIN D, 25-HYDROXY URINALYSIS, DIPSTICK (UA) - Office Lab S ROUTINE VENIPUNCTURE OFFICE HJHDR-ANL-KRPJYIQI BODY MASS INDEX DOCD SYST BP LT 130 MM HG DIAST BP 80-89 MM HG URINALYSIS W MICROSCOPIC (UA) URINALYSIS, DIPSTICK (UA) - Office Lab S Brief Emotional/Behavioral A ssessment, With Scoring/Doct, Per Stndrd Instrument Pt inelig neg scrn depres BASIC METABOLIC PANEL(BMP) HEMATOCRIT (HCT) HEMOGLOBIN (HGB) ROUTINE VENIPUNCTURE HEMOGLOBIN A1C HGA1C, GLYCO MICROALBUMIN, QN (URINE) CREATININE, (U-R) OFFICE BUNRA-EJF-BBFMHVOZ BODY MASS INDEX DOCD SYST BP GE 130 - 139MM HG DIAST BP 80-89 MM HG CBC, INC PLATELETS AND DIFFERENTIAL COMPREHEN METABOLIC PANEL CMP 2 HEMOGLOBIN A1C HGA1C, GLYCO LIPID PANEL VITAMIN D, 25-HYDROXY MICROALBUMIN, SEMIQN(RGT STRIP) - OL Jan ROUTINE VENIPUNCTURE OFFICE AHYYL-FLO-AYUFFLMY BODY MASS INDEX DOCD SYST BP LT 130 MM HG DIAST BP 80-89 MM HG EKG (ELECTROCARDIOGRAM) OFFICE RQNXN-GUI-GISITMLX BODY MASS INDEX DOCD SYST BP LT 130 MM HG DIAST BP 80-89 MM HG OFFICE LBVZO-HCA-AWISEOIG BODY MASS INDEX [facility] SYST BP LT 130 MM HG DIAST BP 80-89 MM HG KENALOG 10 MG INJ; MULTIPLE TRIGGER PTS, 1 OR 2 MUSCLE GROUPS OFFICE WUFZD-JWO-FQHJCVER BODY MASS INDEX DOCD SYST BP LT 130 MM HG DIAST BP 80-89 MM HG OFFICE ASFYK-DHR-LINIYVSM BODY MASS INDEX [facility] SYST BP GE 130 - 139MM HG DIAST BP 80-89 MM HG CBC, INC PLATELETS AND DIFFERENTIAL COMPREHEN METABOLIC PANEL CMP 1 HEMOGLOBIN A1C HGA1C, GLYCO LIPID PANEL ROUTINE VENIPUNCTURE Pt inelig neg scrn depres OFFICE YUHJA-NLN-GYKXXMMC BODY MASS INDEX DOCD SYST BP LT 130 MM HG DIAST BP 80-89 MM HG CBC, INC PLATELETS AND DIFFERENTIAL COMPREHEN METABOLIC PANEL CMP 1 HEMOGLOBIN A1C HGA1C, GLYCO ROUTINE VENIPUNCTURE OFFICE TPPZF-YMJ-XOPPMOOG BODY MASS INDEX DOCD SYST BP >= 140 MM HG6 IT DIAST BP 80-89 MM HG CBC, INC PLATELETS AND DIFFERENTIAL COMPREHEN METABOLIC PANEL CMP 1 HEMOGLOBIN A1C HGA1C, GLYCO ROUTINE VENIPUNCTURE OFFICE DLXAB-JQM-ULEPIWTA BODY MASS INDEX DOCD SYST BP LT 130 MM HG DIAST BP < 80 MM HG DEAMIDATED GLADIN PEPTIDE IGA 0 DEAMIDATED GLADIN PEPTIDE IGG 0 TISSUE TRANSGLUTIMASE IGA TISSUE TRANSGLUTIMASE IGG ROUTINE VENIPUNCTURE BODY MASS INDEX DOCD SYST BP GE 130 - 139MM HG DIAST BP 80-89 MM HG OFFICE MEDQJ-VHM-MHCUMXOZ OFFICE YHKZE-OLP-UJIBZPLB BODY MASS INDEX DOCD SYST BP LT 130 MM HG DIAST BP < 80 MM HG CBC, INC PLATELETS AND DIFFERENTIAL COMPREHEN METABOLIC PANEL CMP 0 HEMOGLOBIN A1C HGA1C, GLYCO LIPID PANEL ROUTINE VENIPUNCTURE Brief Emotional/Behavioral A ssessment, With Scoring/Doct, Per Stndrd Instrument Pt inelig neg scrn depres Kept Appointment No Charge Encounter Jul OFFICE MPWXD-LPX-YAFANUYT BODY MASS INDEX DOCD SYST BP LT [...] SCREENING FOR PAP (OBTAINING SPECIMEN) M OFFICE GMAXL-MPD-IQQVFOZK BODY MASS INDEX DOCD SYST BP LT 130 MM HG DIAST BP < 80 MM HG BP OFFICE/OUTPATIENT VISIT EST OFFICE LOCSU-ZTZ-VJIFNQVM BODY MASS INDEX DOCD SYST BP LT 130 MM HG DIAST BP 80-89 MM HG CBC, INC PLATELETS AND DIFFERENTIAL COMPREHEN METABOLIC PANEL CMP 9 HEMOGLOBIN A1C HGA1C, GLYCO LIPID PANEL ROUTINE VENIPUNCTURE THERAPEUTIC EXERCISES ULTRASOUND THERAPY THERAPEUTIC EXERCISES ULTRASOUND THERAPY Brief Emotional/Behavioral A ssessment, With Scoring/Doct, Per Stndrd Instrument Clin depression screen doc OFFICE SGORT-XXT-IWASOYSQ BODY MASS INDEX DOCD SYST BP LT 130 MM HG DIAST BP < 80 MM HG THERAPEUTIC EXERCISES ULTRASOUND THERAPY ELECTRICAL STIMULATION THERAPEUTIC EXERCISES ULTRASOUND THERAPY ULTRASOUND THERAPY THERAPEUTIC EXERCISES THERAPEUTIC EXERCISES ULTRASOUND THERAPY OT EVAL (MOD COMPLEXITY) CBC, INC PLATELETS AND DIFFERENTIAL COMPREHEN METABOLIC PANEL CMP 9 HEMOGLOBIN A1C HGA1C, GLYCO ROUTINE VENIPUNCTURE OFFICE IXBED-RKW-ZWKIOAUC BODY MASS INDEX DOCD SYST BP GE [...] Diagnoses Date Provider Providers Copied on Encounter [facility], [address], [place], [place], [address] , tel: [phone] Roper No Information 4 Judson Ross. [address] [place] [address], [address] [place] [place] [address], . tel:[phone] [facility], [address], [place], [place], [address] , tel: [phone] Roper Kidney stone 4 Judson Ross. [address] [place] [address], [id number], . tel:[phone] [facility], [address], [place], [place], [address] , tel: [phone] Roper No Information 4 Judson Ross. [address] [place] [address], [id number], . tel:[phone] [facility], [address], [place], [place], [address] , tel: [phone] Roper No Information 4 Judson Ross. [address] [place] [address], [id number], . tel:[phone] OFFICE XKVWM-GLF-GG TAILED [facility], [address], [place], [place], [address] , tel: [phone] Roper mmp (chief complaint) Encounter for screening [...] deficiencyHx of cholecystectomy 4 Judson Ross. [address] [place], [place], [address], . tel:[phone] Referring Provider: Cody Stein, [address] [place] [address], [place], [address] . tel:[phone] [facility], [address], [place], [place], [address] , tel: [phone] [place] No Information 4 Judson Ross. [address] [place], [place], [address], . tel:[phone] [facility], [address], [place], [place], [address] , tel: [phone] Judson No Information 4 Judson Ross. [address] [facility], [place], [place], [address], . tel:[phone] [facility], [address], [place], [place], [address] , tel: [phone] Judson No Information 4 Judson Ross. [address] [place], [place], [address], [place]. tel:[phone] OFFICE PQHLA-QCR-TK TAILED [facility], [address], [place], [place], [address] , tel: [phone] Judson mmp (chief complaint) Mixed hyperlipidemiaMo derate [...] corporisVitamin D deficiency 4 Judson Ross. [address] [place], [place], [address], . tel:[phone] Referring Provider: Cody Stein, [address] [facility], [place], [address] . tel:[phone] OFFICE GEKAL-YHY-MR [facility], [address], [place], [place], [address] , [place] tel: [phone] Judson mmp (chief complaint) Gastroesophageal reflux disease [...] of multiple joints 3 Judson Ross. [address] [facility], [place], [place], [address], [place]. tel:[phone] Referring Provider: Cody Stein, [address] [facility], [place], [address] . tel:[phone] OFFICE LMQMJ-FRX-ZZ [facility], [address], [place], [place], [address] , [place] tel: [phone] [facility] IBS D (chief complaint) Irritable bowel syndrome with diarrhea 3 Meena Garrison. [address] [facility] [place], [address], [place]. tel:[phone] Referring Provider: Emil Roper, [address] [facility], [place], [address] . tel:[phone] [facility], [address], [place], [place], [address] , [place] tel: [phone] Judson Other spondylosis with radiculopathy, cervical regionOther spondylosis with radiculopathy, lumbosacral regionSpondylosi s, unspecifiedUnila teral primary osteoarthritis, left knee Jul- 3 Judson Ross. [address] [facility], [place], [place], [address], [place]. tel:[phone] [facility], [address], [place], [place], [address] , [place] tel: [phone] Judson No Information 3 Judson Ross. [address] [facility], [place], [place], [address], [place]. tel:[phone] OFFICE TVIQF-FDX-SJ [facility], [address], [place], [place], [address] , [place] tel: [phone] Judson mmp (chief complaint) Essential (primary) hypertensionMixe [...] neoplasm of breast 3 Judson Ross. [address] [place], [place], [address], [place]. tel:[phone] Referring Provider: Cody Stein, [address] [facility] [address], [place], [address] . tel:[phone] OFFICE [facility], [address], [place], [place], [address] , [place] tel: [phone] [facility] (chief complaint) Essential (primary) hypertensionMeta bolic [...] evaluationAbnorm al EKG 3 Judson Ross. [address] [facility] [address], [place], [place], [address], [place]. tel:[phone] Referring Provider: Cody Stein, [address] [facility] [address], [place], [address] . tel:[phone] OFFICE JUJMQ[facility]OMW[facility], [address], [place], [place], [address] , [place] tel: [phone] [facility] (chief complaint) Lumbosacral radiculopathy due to degenerative [...] with diarrheaCervical radiculopathy 3 Judson Ross. [address] [place], [place], [address], . tel:[phone] Referring Provider: Cody Stein, [address] [place] [address], [place], [address] . tel:[phone] OFFICE LOUAY-WXO-CR [facility], [address], [place], [place], [address] , [place] tel:[phone] [facility] Follow up (chief complaint) Irritable bowel syndrome with diarrheaRectal itching 2 Jerrell Gillette. [address] [place] [address], [address], [place]. tel:[phone] Referring Provider: Cody Stein, [address] [place] [address], [place], [address] . tel:[phone] OFFICE WIKJE-AYN-HT [facility] [employer], [address], [place], [place], [address] , [place] tel:[phone] Judson madsen (chief complaint) Cervical radiculopathyNec k pain, chronicOther chronic pain 2 Jim Camp. [address] [place], [place], [address], [place]. tel:[phone] Referring Provider: Cody Stein, [address] [facility], [place], [address] . tel:[phone] OFFICE ADPXL-OQM-HX [facility] [employer] [facility] [employer], [address], [place], [place], [address] , [place] tel:[phone] Judson madsen (chief complaint) Essential (primary) hypertensionMixe [...] tamin D deficiency Jul- 2 Judson Ross. [address] [place] [address], [id number], . tel:[phone] Referring Provider: Cody Stein, [address] [place] [address], [address] . tel:[phone] [facility], [address], [place], [place], [address] , tel:[phone] Judson UTI symptoms/c oncerns (chief complaint) UTI symptoms 2 Judson Ross. [address] [place] [address], [id number], [place]. tel:[phone] Referring Provider: Cody Stein, [address] [place] [address], [place], [address] . tel:[phone] OFFICE RHFBE-FOX-WF [facility], [address], [place], [place], [address] , tel:[phone] Judson mmp (chief complaint) Essential (primary) hypertensionMeta [...] unspecified type Be 2 Judson Ross. [address] [facility] [address], [place], [place], [address], . tel:[phone] Referring Provider: Cody Stein, [address] [place] [address] B, [place], [address] . tel:[phone] OFFICE TUDAU-HCA-JA [facility], [address], [place], [place], [address] , [place] tel:[phone] Judson mmp (chief complaint) Essential (primary) hypertensionMixe [...] paresthetica of left side 2 Judson Ross. [address] [place] [address], [place], [place], [address], [place]. tel:[phone] Referring Provider: Cody Stein, [address] [place] [address], [place], [address] . tel:[phone] OFFICE HWCJL-CGQ-ZC [facility], [address], [place], [place], [address] , [place] tel:[phone] Judson Rash (chief complaint) IntertrigoHyperp igmentation 2 Erasmo Cheney. [address] [place] [address], [address] Floor, [place], [place], [address], [place]. tel:[phone] Referring Provider: Cody Stein, [address] [place] [address] B, [place], [address] . tel:[phone] OFFICE SOBIY-UUB-IV [facility], [address], [place], [place], [address] , [place] tel:[phone] [facility] IBS (chief complaint) Irritable bowel syndrome with diarrhea 1 Jerrell Gillette. [address] [place], [place], [address], [place]. tel:[phone] Referring Provider: Cody Stein, [address] [place] [address], [address] . tel:[phone] [facility]ICE [facility], [address], [place], [place], [address] , [place] tel: [phone] Judson madsen (chief complaint) Encounter for screening [...] (BMI 30.0-34.9)Opioid use 1 Judson Ross. [address] [place], [place], [address], [place]. tel:[phone] Referring Provider: Cody Stein, [address] [place], [address] . tel:[phone] [facility]ICE [facility], [address], [place], [place], [address] , [place] tel:[phone] Judson madsen (chief complaint) Essential (primary) hypertensionMixe [...] due to pollenAnxiety 1 Judson Ross. [address] [facility], [place], [place], [address], . [phone] Referring Provider: Cody Stein, [address] [facility], [place], [address] . tel:[phone] [facility] [employer], [address], [place], [place], [address] , tel: [phone] Judson No Information 1 Judson Ross. [address] [facility], [place], [place], [address], . tel:[phone] [facility], [address], [place], [place], [address] , tel: [phone] [facility] Urinary incontinence, unspecified type 1 Judson Ross. [address] [facility], [place], [place], [address], . tel:[phone] OFFICE CVISW-PNJ-LJ [facility], [address], [place], [place], [address] , tel: [phone] Judson MMP (chief complaint) Essential (primary) hypertensionMixe [...] of left foot 1 Judson Ross. [address] [facility], [place], [place], [address], [place]. tel:[phone] Referring Provider: Cody Stein, [address] [place] [address] B, [place], [address] . tel:[phone] OFFICE AUGPH-TGG-EL [facility], [address], [place], [place], [address] , [place] tel: [phone] Judson mmp (chief complaint) Essential (primary) hypertensionMixe [...] syndrome of right wrist 1 Judson Ross. [address] [place] [address], [place], [place], [address], [place]. tel:[phone] Referring Provider: Cody Stein, [address] [place] [address], [place], [address] . tel:[phone] OFFICE FDXSX-WNZ-HT [facility], [address], [place], [place], [address] , [place] tel:[phone] [facility] Diarrhea (chief complaint) Irritable bowel syndrome with diarrhea 0 Jerrell Gillette. [address] [place], [place], [address], [place]. tel:[phone] Referring Provider: Cody Stein, [address] [place] [address] B, [place], [address] . tel:[phone] OFFICE ADMJN-NVA-FH [facility], [address], [place], [place], [address] , [place] tel:[phone] [facility] Diarrhea (chief complaint) Irritable bowel syndrome with diarrhea 0 0 Jerrell Leta. [address] [place], [place], [address], [place]. tel:[phone] Referring Provider: Cody Stein, [address] [place] [address], [place], [address] . tel:[phone] OFFICE LBNPB-RSR-UV [facility], [address], [place], [place], [address] , [place] tel: [phone] Judson mmp (chief complaint) Unilateral primary osteoarthritis, [...] (BMI 30.0-34.9)Gangli on cyst 0 Judson Ross. [address] [place] [address], [place], [place], [address], [place]. tel:[phone] Referring Provider: Cody Stein, [address] [place] [address], [place], [address] . [phone] [facility], [address], [place], [place], [address] , [place] tel:[phone] Judson weight check (chief complaint) No Information 0 Judson Ross. [address] [place], [place], [address], [place]. tel:[phone] Referring Provider: Cody Stein, [address] [facility], [place], [address] . tel:[phone] OFFICE HORPR-WGI-IM [facility], [address], [place], [place], [address] , [place] tel: [phone] Judson mmp (chief complaint) Unilateral primary osteoarthritis, [...] ovary syndromeObesity (BMI 30.0-34.9) 0 Judson Ross. [address] [place] [address] [place], [address], . tel:[phone] Referring Provider: Cody Stein, [address] [place] [address] B, [place], [address] . tel:[phone] PREVENTATIVE -EST: 40-64 [facility], [address], [place], [place], [address] , tel: [phone] Judson mmp (chief complaint) Unilateral primary osteoarthritis, [...] lossPolycystic ovary syndromePhysical exam 0 Judson Ross. [address] [place] [address] B, [place], [place], [address], . tel:[phone] Referring Provider: Cody Stein, [address] [place] [address] B, [place], [address] . tel:[phone] OFFICE FVFWT-ZKI-OJ [facility], [address], [place], [place], [address] , tel: [phone] Judson WWE/PAP (chief complaint) Cervical cancer screeningPCOS (polycystic ovarian syndrome)Hirsuti smSexual dysfunction 0 Jim Camp. [address] [place], [place], [address], . tel:[phone] Referring Provider: Cody Stein, [address] [place] [address], [address] . tel:[phone] BP OFFICE/OUTPA TIENT VISIT EST [facility], [address], [place], [place], [address] , [place] tel: [phone] Judson Essential (primary) hypertension 0 Judson Ross. [address] [place] [address], [address], . tel:[phone] Referring Provider: Cody Stein, [address] [place] [address], [address] . tel:[phone] OFFICE ZOVAV-EIH-LA [facility], [address], [place], [place], [address] , [place] tel: [phone] Judson MMP (chief complaint) Unilateral primary osteoarthritis, [...] persistent asthma without complication 9 Judson Ross. [address] [place] [address], [address], . tel:[phone] Referring Provider: Cody Stein, [address] [place] [address], [address] . [phone] [facility], [address], [place], [place], [address] , tel: [phone] Judson Unilateral primary osteoarthritis, left knee Sep-3 0- 9 Judson Ross. [address] [place], [place], [address], . tel:[phone] Referring Provider: Cody Stein, [address] [facility], [place], [address] . [phone] [facility], [address], [place], [place], [address] , [place] tel: [phone] Judson No Information Sep-2 3 9 Judson Ross. [address] [place], [place], [address], . tel:[phone] Referring Provider: Cody Stein, [address] [place], [address] . tel:[phone] OFFICE LEKTV-XVW-LU PANDED [facility], [address], [place], [place], [address] , tel: [phone] Judson *depressio n (chief complaint) Current moderate episode of major depressive disorder without prior episodeUnilatera l primary osteoarthritis, left knee Sep-1 9 Jim Camp. [address] [place], [place], [address], . tel:[phone] Referring Provider: Cody Stein, [address] [facility], [place], [address] . tel:[phone] [facility], [address], [place], [place], [address] , [place] tel: [phone] Judson Unilateral primary osteoarthritis, left knee Sep-1 9 Judson Ross. [address] [place], [place], [address], . tel:[phone] Referring Provider: Cody Stein, [address] [facility], [place], [address] . [phone] [facility], [address], [place], [place], [address] , [place] tel: [phone] Roper Unilateral primary osteoarthritis, left knee Sep-0 9-201 9 Judson Ross. [address] [facility], [place], [place], [address], [place]. tel:[phone] Referring Provider: Cody Stein, [address] [place] [address], [place], [address] . [phone] [facility], [address], [place], [place], [address] , [place] tel: [phone] Roper Unilateral primary osteoarthritis, left knee Sep-0 5-201 9 Judson Ross. [address] [place], [place], [address], [place]. tel:[phone] Referring Provider: Cody Stein, [address] [place] [address], [address] . tel:[phone] [facility] [address], [place], [place], [address] , [place] tel: [phone] Roper Right arm pain Sep-0 4-201 9 Judson Ross. [address] [facility], [place], [place], [address], [place]. [phone] [facility], [address], [place], [place], [address] , [place] tel: [phone] Roper Unilateral primary osteoarthritis, left knee Aug-1 9-201 9 Judson Ross. [address] [facility], [place], [place], [address], [place]. tel:[phone] Referring Provider: Cody Stein, [address] [facility], [place], [address] . tel:[phone] [facility] [address], [place], [place], [address] , [place] tel: [phone] Roper Unilateral primary osteoarthritis, left knee Aug-0 5-201 9 Judson Ross. [address] [place], [place], [address], [place]. tel:[phone] Referring Provider: Cody Stein, [address] [place] [address] B, [place], [address] . tel:[phone] OFFICE PSZLC-HBA-IY [facility], [address], [place], [place], [address] , tel:[phone] Judson mmp (chief complaint) Lateral epicondylitis of [...] smokerModerate persistent asthma without complication Judson Ross. [address] [place] [address] B, [place], [place], [address], [place]. tel:[phone] Referring Provider: Cody Stein, [address] [place] [address] B, [place], [address] . tel:[phone] [facility] [address], [place], [place], [address] , [place] tel:[phone] Judson Chronic pain of left kneeOther chronic pain 9 [facility]. [address] [place] [address], [address] [place] [address], [address], [place]. tel:[phone] [facility] [address], [place], [place], [address] , [place] tel:[phone] Judson Left knee pain. (chief complaint) Chronic pain of left knee 9 [facility]. [address] [place] [address], [address] [facility], [place], [place], [address], [place]. tel:[phone] Referring Provider: Cody Stein, [address] [place] [address] B, [place], [address] . tel:[phone] [facility] [address], [place], [place], [address] , [place] tel: [phone] Judson URI_ (chief complaint) Moderate persistent asthma with acute exacerbation Erasmo Cheney. [address] [place] [address], [address] Floor, [place], [place], [address], [place]. tel:[phone] Referring Provider: Cody Stein, [address] [facility] [address], [place], [address] . tel:[phone] [facility], [address] [address], [place], [place], [id number] , [place] tel: [phone] Judson Lumbosacral radiculopathy due to degenerative joint disease of spineOsteoarthri tis of spine with radiculopathy, cervical regionOsteoarthr itis of multiple joints, unspecified osteoarthritis typeType 2 diabetes mellitus without complication, unspecified terminal makeup operator insulin use statusEssential hypertensionMixe d hyperlipidemiaSc iatica, unspecified lateralityIrrita ble bowel syndrome with diarrheaGastroes ophageal reflux disease, esophagitis presence not specifiedInsomni a, unspecified typeCurrent smokerAsthma, unspecified asthma severity, unspecified whether complicated, unspecified whether persistentImmuni zation refusedLateral epicondylitis of right elbow Judson Ross. [address] [facility] [place], [id number], [place]. tel:[phone] Referring Provider: Cody Stein, [address] [facility], [place], [address] . tel:[phone] [facility], [address], [place], [place], [address] , [place] tel: [phone] Judson Lumbosacral radiculopathy due to degenerative joint disease of spineOsteoarthri tis of spine with radiculopathy, cervical regionOsteoarthr itis of multiple joints, unspecified osteoarthritis typeType 2 diabetes mellitus without complication, unspecified long-term insulin use statusEssential hypertensionMixe d hyperlipidemiaSc iatica, unspecified lateralityIrrita ble bowel syndrome with diarrheaGastroes ophageal reflux disease, esophagitis presence not specifiedInsomni a, unspecified typeCurrent smokerAsthma, unspecified asthma severity, unspecified whether complicated, unspecified whether persistent 8 Judson Ross. [address] [place], [place], [id number], . tel:[phone] Referring Provider: Cody Stein, [address] [place], [address] . tel:[phone] [facility], [address], [place], [place], [address] , tel: [phone] Judson Lumbosacral radiculopathy due to degenerative joint disease of spineOsteoarthri tis of spine with radiculopathy, cervical regionOsteoarthr itis of multiple joints, unspecified osteoarthritis typeType 2 diabetes mellitus without complication, unspecified terminal makeup operator insulin use statusEssential hypertensionMixe d hyperlipidemiaSc iatica, unspecified lateralityIrrita ble bowel syndrome with diarrheaGastroes ophageal reflux disease, esophagitis presence not specifiedInsomni a, unspecified typeCurrent smokerAsthma, unspecified asthma severity, unspecified whether complicated, unspecified whether persistentFatigu e, unspecified typeArthralgia of both kneesLow vitamin D level 8 Judson Ross. [address] [place], [place], [id number], . tel:[phone] Referring Provider: Cody Stein, [address] [place], [address] . tel:[phone] [facility], [address], [place], [place], [address] , tel: [phone] Judson Lumbosacral radiculopathy due to degenerative joint disease of spineOsteoarthri tis of spine with radiculopathy, cervical regionOsteoarthr itis of multiple joints, unspecified osteoarthritis typeType 2 diabetes mellitus without complication, unspecified long-term insulin use statusEssential hypertensionMixe d hyperlipidemiaSc iatica, unspecified lateralityIrrita ble bowel syndrome with diarrheaGastroes ophageal reflux disease, esophagitis presence not specifiedInsomni a, unspecified typePainful menstrual flowCurrent smokerAsthma, unspecified asthma severity, unspecified whether complicated, unspecified whether persistentEye lesionChronic sinusitis, unspecified location 8 Judson Ross. [address] [place], [place], [address], . tel:[phone] Referring Provider: Cody Stein, [address] [facility], [place], [address] . tel:[phone] [facility], [address], [place], [place], [address] , tel: [phone] Judson Type 2 diabetes mellitus without complication, unspecified terminal makeup operator insulin use statusHypertensi ve heart disease without heart failureMixed hyperlipidemiaPr imary osteoarthritis of both hipsSpondylosis of cervical region without myelopathy or radiculopathySci atica, unspecified lateralityIrrita ble bowel syndrome with diarrheaGastroes ophageal reflux disease, esophagitis presence not specifiedInsomni a, unspecified typePainful menstrual flowCurrent smokerGanglion cystRight wrist tendonitisRight carpal tunnel syndromeLumbosac ral radiculopathy due to degenerative joint disease of spine Judson Ross. [address] [place], [place], [address], . tel:[phone] Referring Provider: Cody Stein, [address] [place], [address] . tel:[phone] [facility] [address], [place], [place], [address] , tel: [phone] Judson Type 2 diabetes mellitus without complication, unspecified terminal makeup operator insulin use statusHypertensi ve heart disease without heart failureInsomnia, unspecified typePrimary osteoarthritis of both hipsSpondylosis of cervical region without myelopathy or radiculopathyPai nful menstrual flowIrritable bowel syndrome with diarrheaCurrent smokerInfluenza vaccination declinedGastroes ophageal reflux disease, esophagitis presence not specifiedSciatic a, unspecified lateralityStomac h painMedication monitoring encounter Judson Ross. [address] [place] [address], [id number], . tel:[phone] Referring Provider: Cody Stein, [address] [place] [address], [address] . tel:[phone] [facility], [address], [place], [place], [address] , tel: [phone] [place] Primary osteoarthritis of both hipsSpondylosis of cervical region without myelopathy or radiculopathyHyp ertensive heart disease without heart failureType 2 diabetes mellitus without complication, unspecified long-term insulin use statusInsomnia, unspecified typeIrritable bowel syndrome with diarrheaPainful menstrual flowCurrent smoker 7 Judson Ross. [address] [place] [address], [id number], . tel:[phone] Referring Provider: Cody Stein, [address] [place] [address], [address] . tel:[phone] [facility], [address], [place], [place], [address] , tel: [phone] Judson Primary osteoarthritis of both hipsSpondylosis of cervical region without myelopathy or radiculopathyHyp ertensive heart disease without heart failureType 2 diabetes mellitus without complication, unspecified terminal makeup operator insulin use statusInsomnia, unspecified typeIrritable bowel syndrome with diarrheaMixed hyperlipidemia 7 Judson Ross. [address] [place] [address], [id number], . tel:[phone] Referring Provider: Cody Stein, [address] [place] [address], [address] . tel:[phone] [facility], [address], [place], [place], [address] , tel:[phone] [place] Primary osteoarthritis of both hipsSpondylosis of cervical region without myelopathy or radiculopathyHyp ertensive heart disease without heart failureType 2 diabetes mellitus without complication, unspecified long-term insulin use statusInsomnia, unspecified type 6 Judson Ross. [address] [place] [address] B, [place], [place], [address], [place]. tel:[phone] Referring Provider: Cody Stein, [address] [facility], [place], [address] . tel:[phone] [facility], [address], [place], [place], [address] , [place] tel:[phone] Judson Strain of left hip, initial encounterLeft shoulder strain, initial encounter Sep- 2201 6 [place] Cris. [address] [facility], [place], [place], [address]. tel:[phone] Referring Provider: Cody Stein, [address] [place] [address], [place], [address] . tel:[phone] [facility], [address], [place], [place], [address] , [place] tel:[phone] Judson Chronic obstructive pulmonary disease, unspecifiedOther allergic rhinitisMixed hyperlipidemiaOt her fatigueInsomnia, persistentLocali zed osteoarthritis of lumbar spine Jan-0 6 Judson Ross. [address] [facility], [place], [place], [address], [place]. tel:[phone] Referring Provider: Cody Stein, [address] [facility], [place], [address] . tel:[phone] [facility], [address], [place], [place], [address] , [place] tel:[phone] Judson Sciatica, unspecified lateralityCoughC hronic obstructive pulmonary disease, unspecifiedOther allergic rhinitisMorbid obesity, unspecified obesity type Nov- 5 Judson Ross. [address] [facility], [place], [place], [address], [place]. tel:[phone] Referring Provider: Cody Stein, [address] [facility], [place], [address] . tel:[phone] Family History Family Member Type Diagnosis Age At Onset No Information Immunizations Vaccine Date Status Comments [employer] ([employer] d) COVID19 Vaccine, 0.3mL per [...] Record Payers Payer name Insurance type Covered alliance party ID Authorantonio ramirez(s) BCBS ACCESS CHOICE BL [id number] BCBS ACCESS CHOICE BL [id number] BCBS INACTIVE OUT OF STATE [id number] BCBS INACTIVE OUT OF STATE [id number] Social History Type Description Quantity Date Captured [...] Order SC REENING MAMMOGRAM (CAD) Bilateral breast (58176), Body Site: breast, Sent on: Sent Future Order: Radiology Order SC REENING MAMMOGRAM (CAD) Bilateral breast ([id number]), Body Site: breast, Sent on: Sent Future Order: Radiology Order SC REENING MAMMOGRAM (CAD) Bilateral breast ([id number]), Body Site: breast, Sent on: Sent Future Order: Lab Order Urine Cu lture, Routine ([id number]), Collected on: , Sent on: Sent Future Order: Lab Order UA- Dips tick (office Lab) ([id number]), Collected on: Ordered Future Order: Radiology Order SC REENING MAMMOGRAM (CAD) Bilateral breast ([id number]), Body Site: breast, Sent on: Sent History [...] or exercise.Smoker: No change in habits reported. [facility] Pre-Op Clearance : Pt is [...] scheduled for this . No other complaints. [facility] HTN: Pt is med c [...] PCOS: Pt is med compliant. F/u with RESIDENT CARE ASSISTANT as scheduled. No complaints. Metabolic syndrome: per [...] PCOS: Pt is med compliant. F/u with RESIDENT CARE ASSISTANT as scheduled. No complaints. Metabolic syndrome: per [...] PCOS: Pt is med compliant. F/u with RESIDENT CARE ASSISTANT as scheduled. No complaints. Metabolic syndrome: per [...] with Dr. Tracy (spelling?), hand surgeon at [facility]. 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 Has not tried otc diarrhea mediations. [...] Pt has fhx of lymphoma but last american board certified orthotist visit found no cause for concernMetabolic syndrome: [...] that of lymphoma. Pt followed up with american board certified orthotist and he could not find anything wrong [...] after cutting back on her hours at [employer]. *depression Patient presents today with persistent feelings [...] has tried a knee brace from the [employer] store and Ibuprofen with minimal relief. URI_ [...] Pain Management. Encourage to complete stretches and tarzu-fp-ivcguh exercises. Encouraged patient to try and lose some weight. Will monitor. Related to Other spondylosis with radiculopathy, cervical region Unchanged. Insurance will no longer pay for injections. Continue current treatment with Oxycodone 10mg-325mg 1 tab four times daily. Continue following up with Pain Management. Continue following up with Dr. Dolan, orthopaedic surgeon as scheduled. Encourage to complete stretches and oxjxz-wc-rkgtqu exercises. Encouraged patient to try and lose some weight. Will monitor. Related to Other spondylosis with radiculopathy, lumbosacral region Unchanged. Insurance will no longer pay for injections. Continue current treatment with Oxycodone 10mg-325mg 1 tab four times daily. Continue following up with Pain Management. Encourage to complete stretches and iiqtt-tk-twaagv exercises. Encouraged patient to try and lose some weight. Will monitor. Related to Spondylosis, unspecified Unchanged. Insurance will no longer pay for injections. Continue current treatment with Oxycodone 10mg-325mg 1 tab four times daily. Continue following up with Pain Management. Encourage to complete stretches and erkgp-rb-naegzk exercises. Encouraged patient to try and lose [...] Pain Management. Encourage to complete stretches and lfpvr-vm-rcishk exercises. Encouraged patient to try and lose [...] as scheduled. Encourage to complete stretches and nxkym-mu-wddqhd exercises. Encouraged patient to try and lose some weight. Will monitor. Related to Other spondylosis with radiculopathy, lumbosacral region Unchanged. Insurance will no longer pay for injections. Continue current treatment with Oxycodone 10mg-325mg 1 tab four times daily. Continue following up with Pain Management. Encourage to complete stretches and pcpyr-us-sjtkks exercises. Encouraged patient to try and lose some weight. Will monitor. Related to Spondylosis, unspecified S/p 2 level ACDF wit h plating. With improved symptoms. PDMP has been checked. Continue current treatment with Oxycodone 10mg-325mg 1 tab four times daily. Continue following up with Pain Management. Encourage to complete stretches and ykyko-er-phkdst exercises. Encouraged patient to try and lose [...] as scheduled. Encourage to complete stretches and ikota-mo-qhfvkp exercises. Encouraged patient to try and lose some weight. Will monitor. Related to Other spondylosis with radiculopathy, lumbosacral region Unchanged. Insurance will no longer pay for injections. Continue current treatment with Oxycodone 10mg-325mg 1 tab four times daily. Continue following up with Pain Management. Encourage to complete stretches and yhjjq-ag-hzvwhk exercises. Encouraged patient to try and lose some weight. Will monitor. Related to Unilateral primary osteoarthritis, left knee S/p 2 level ACDF wit h plating. With improved symptoms. PDMP has been checked. Continue current treatment with Oxycodone 10mg-325mg 1 tab four times daily. Continue following up with Pain Management. Encourage to complete stretches and kmims-ov-edutkr exercises. Encouraged patient to try and lose some weight. Will monitor. Related to Other spondylosis with radiculopathy, cervical region Unchanged. Insurance will no longer pay for injections. Continue current treatment with Oxycodone 10mg-325mg 1 tab four times daily. Continue following up with Pain Management. Encourage to complete stretches and gnsjl-jc-hqqsog exercises. Encouraged patient to try and lose [...] as scheduled. Encourage to complete stretches and ugija-tq-alncje exercises. Encouraged patient to try and lose [...] as scheduled. Encourage to complete stretches and xcabx-tt-zunwag exercises. Encouraged patient to try and lose [...] as scheduled. Encourage to complete stretches and xcqfj-rs-buyykh exercises. Encouraged patient to try and lose [...] as scheduled. Encourage to complete stretches and dasfq-qf-wexrvp exercises. Encouraged patient to try and lose [...] as scheduled. Encourage to complete stretches and lymou-zf-btungs exercises. Encouraged patient to try and lose [...] as scheduled. Encourage to complete stretches and eptgi-vp-gqqrfd exercises. Encouraged patient to try and lose some weight. Will monitor. Related to Other chronic pain Unchanged. Continue current treatment with Hydrocodone 5-325mg 1 tab TID prn, Nabumetone 750mg 1 tab BID and Gabapentin 300mg 2 tabs TID. Continue following up with orthopaedic surgeon as scheduled. Encourage to complete stretches and jbexb-uw-kpnzvc exercises. Encouraged patient to try and lose [...] as scheduled. Encourage to complete stretches and jmdzi-qt-inxnxe exercises. Encouraged patient to try and lose some weight. Will monitor. Related to Unilateral primary osteoarthritis, left knee Unchanged. Continue current treatment with Hydrocodone 5-325mg 1 tab TID prn, Nabumetone 750mg 1 tab BID and Gabapentin 300mg 2 tabs TID. Continue following up with orthopaedic surgeon as scheduled. Encourage to complete stretches and tgkfd-bz-gbpciz exercises. Encouraged patient to try and lose [...] as scheduled. Encourage to complete stretches and cfzai-ms-oemguu exercises. Encouraged patient to try and lose [...] as scheduled. Encourage to complete stretches and ftkbn-ee-uhsdau exercises. Encouraged patient to try and lose some weight. Will monitor. Related to Other chronic pain Unchanged. Continue current treatment with Hydrocodone 5-325mg 1 tab TID prn, Nabumetone 750mg 1 tab BID and Gabapentin 300mg 2 tabs TID. Continue following up with orthopaedic surgeon as scheduled. Encourage to complete stretches and cbqhe-lo-djpuxj exercises. Encouraged patient to try and lose [...] as scheduled. Encourage to complete stretches and clqzg-tp-nluwxm exercises. Encouraged patient to try and lose some weight. Will monitor. Related to Lumbosacral radiculopathy due to degenerative joint disease of spine Unchanged. Continue current treatment with Hydrocodone 5-325mg 1 tab TID prn, Nabumetone 750mg 1 tab BID and Gabapentin 300mg 2 tabs TID. Continue following up with orthopaedic surgeon as scheduled. Encourage to complete stretches and qdrhn-li-fybhud exercises. Encouraged patient to try and lose [...] as scheduled. Encourage to complete stretches and hyana-it-pytaos exercises. Encouraged patient to try and lose some weight. Will monitor. Related to Osteoarthritis of spine with radiculopathy, cervical region Unchanged. Continue current treatment with Hydrocodone 5-325mg 1 tab TID prn, Nabumetone 750mg 1 tab BID and Gabapentin 300mg 2 tabs TID. Continue following up with orthopaedic surgeon as scheduled. Encourage to complete stretches and asvxz-zz-hoongf exercises. Encouraged patient to try and lose [...] as scheduled. Encourage to complete stretches and fvzpt-ro-ozttkl exercises. Encouraged patient to try and lose some weight. Will monitor. Related to Unilateral primary osteoarthritis, left knee Unchanged. Continue current treatment with Hydrocodone 5-325mg 1 tab TID prn, Nabumetone 750mg 1 tab BID and Gabapentin 300mg 2 tabs TID. Continue following up with orthopaedic surgeon as scheduled. Encourage to complete stretches and eagfb-pf-cbykdd exercises. Encouraged patient to try and lose some weight. Will monitor. Related to Osteoarthritis of spine with radiculopathy, cervical region Unchanged. Continue current treatment with Hydrocodone 5-325mg 1 tab TID prn, Nabumetone 750mg 1 tab BID and Gabapentin 300mg 2 tabs TID. Continue following up with orthopaedic surgeon as scheduled. Encourage to complete stretches and dwpup-rq-rukkce exercises. Encouraged patient to try and lose some weight. Will monitor. Related to Spondylosis Unchanged. Continue current treatment with Hydrocodone 5-325mg 1 tab TID prn, Nabumetone 750mg 1 tab BID and Gabapentin 300mg 2 tabs TID. Continue following up with orthopaedic surgeon as scheduled. Encourage to complete stretches and xptdy-iz-sxjrvv exercises. Encouraged patient to try and lose [...] as scheduled. Encourage to complete stretches and iiyez-no-putuae exercises. Encouraged patient to try and lose [...] as scheduled. Encourage to complete stretches and vohis-ol-vtdzcr exercises. Encouraged patient to try and lose [...] as scheduled. Encourage to complete stretches and ugcwd-je-yingpx exercises. Encouraged patient to try and lose some weight. Will monitor. Related to Osteoarthritis of spine with radiculopathy, cervical region Unchanged. Continue current treatment with Hydrocodone 5-325mg 1 tab TID prn, Nabumetone 750mg 1 tab BID and Gabapentin 300mg 2 tabs TID. Continue following up with orthopaedic surgeon as scheduled. Encourage to complete stretches and epnfc-oz-edizvm exercises. Encouraged patient to try and lose [...] as scheduled. Encourage to complete stretches and aqhtv-zi-uwsklt exercises. Encouraged patient to try and lose some weight. Will monitor. Related to Lumbosacral radiculopathy due to degenerative joint disease of spine Unchanged. Continue current treatment with Hydrocodone 5-325mg 1 tab TID as needed, Nabumetone 750mg 1 tab BID and Gabapentin 300mg 2 tabs QID. Continue following up with orthopaedic surgeon as scheduled. Encourage to complete stretches and gyoan-ro-zoagvn exercises. Encouraged patient to try and lose [...] as scheduled. Encourage to complete stretches and hywjv-gz-wkmnht exercises. Encouraged patient to try and lose some weight. Will monitor. Related to Unilateral primary osteoarthritis, left knee Unchanged. Continue current treatment with Hydrocodone 5-325mg 1 tab TID as needed, Nabumetone 750mg 1 tab BID and Gabapentin 300mg 2 tabs QID. Continue following up with orthopaedic surgeon as scheduled. Encourage to complete stretches and qxyly-cx-ccbqsi exercises. Encouraged patient to try and lose [...] as scheduled. Encourage to complete stretches and urcxk-ig-snosvf exercises. Encouraged patient to try and lose [...] as scheduled. Encourage to complete stretches and jjzxi-za-vmtlsl exercises. Encouraged patient to try and lose [...] as scheduled. Encourage to complete stretches and erjld-eq-oavaml exercises. Encouraged patient to try and lose [...] as scheduled. Encourage to complete stretches and apfld-rn-fwpjrz exercises. Encouraged patient to try and lose [...] as scheduled. Encourage to complete stretches and lsxvm-ep-bjybma exercises. Encouraged patient to try and lose some weight. Will monitor. Related to Unilateral primary osteoarthritis, left knee Unchanged. Continue current treatment with Hydrocodone 5-325mg 1 tab TID as needed, Relafen 750mg 1 tablet BID, and Gabapentin 300mg 2 tabs QID. Continue following up with orthopaedic surgeon as scheduled. Encourage to complete stretches and pcgyq-ap-odoglk exercises. Encouraged patient to try and lose some weight. Will monitor. Related to Spondylosis Unchanged. Continue current treatment with Hydrocodone 5-325mg 1 tab TID as needed, Relafen 750mg 1 tablet BID, and Gabapentin 300mg 2 tabs QID. Continue following up with orthopaedic surgeon as scheduled. Encourage to complete stretches and zfapy-ei-erbgnj exercises. Encouraged patient to try and lose [...] screening mammogram in office today.RHM: Pt received [employer] COVID-19 vaccine x1 on 06/14/2021 and is [...] as scheduled. Encourage to complete stretches and cdxpa-vw-rjpggt exercises. Encouraged patient to try and lose [...] as scheduled. Encourage to complete stretches and vrhfw-hb-xodztp exercises. Encouraged patient to try and lose some weight. Will monitor. Related to Osteoarthritis of spine with radiculopathy, cervical region Stable. Continue cur rent treatment with Hydrocodone 5-325mg 1 tab TID as needed, Relafen 750mg 1 tablet BID, and Gabapentin 300mg 2 tabs QID. Continue following up with orthopaedic surgeon as scheduled. Encourage to complete stretches and xsier-xr-pmfgno exercises. Encouraged patient to try and lose [...] foot edema. Encourage to complete stretches and ijtub-wn-blwtdf exercises. Encouraged patient to try and lose some weight. Will monitor. Related to Unilateral primary osteoarthritis, left knee Stable. Continue cur rent treatment with Hydrocodone 5-325mg 1 tab TID as needed, Relafen 750mg 1 tablet BID, and Gabapentin 300mg 2 tabs QID. Continue following up with orthopaedic surgeon as scheduled. Encourage to complete stretches and pbdfx-wu-kggyqc exercises. Encouraged patient to try and lose some weight. Will monitor. Related to Spondylosis Stable. Continue cur rent treatment with Hydrocodone 5-325mg 1 tab TID as needed, Relafen 750mg 1 tablet BID, and Gabapentin 300mg 2 tabs QID. Continue following up with orthopaedic surgeon as scheduled. Encourage to complete stretches and ejxxq-be-sjqkxm exercises. Encouraged patient to try and lose [...] vigilant self-foot exams. Will continue to monitor.Labs: [id number]: Able to self-manage condition. Goals: Your goal [...] wrist See plan #12Labs: CM P, CBC, [id number] up in 3 months or sooner if [...] as scheduled. Encourage to complete stretches and dlhhl-ut-mxxisw exercises. Encouraged patient to try and lose [...] as scheduled. Encourage to complete stretches and crxtm-fo-ymgahg exercises. Encouraged patient to try and lose some weight. Will monitor. Related to Osteoarthritis of spine with radiculopathy, cervical region Symptomatic. INCREAS E Hydrocodone 5-325mg 1 tab TID as needed. Continue current treatment - Relafen 750mg 1 tablet BID, and Gabapentin 300mg 2 tabs QID. Continue following up with orthopaedic surgeon as scheduled. Encourage to complete stretches and fsvxa-ma-btjjeo exercises. Encouraged patient to try and lose [...] as scheduled. Encourage to complete stretches and dcixi-sp-kjnora exercises. Encouraged patient to try and lose some weight. Will monitor. Related to Lumbosacral radiculopathy due to degenerative joint disease of spine Symptomatic. INCREAS E Hydrocodone 5-325mg 1 tab TID as needed. Continue current treatment - Relafen 750mg 1 tablet BID, and Gabapentin 300mg 2 tabs QID. Continue following up with orthopaedic surgeon as scheduled. Encourage to complete stretches and uannc-tb-wqgfll exercises. Encouraged patient to try and lose [...] tabs QID. Encourage to complete stretches and dyuol-jx-wtmgye exercises. Encouraged patient to try and lose some weight. Will monitor. Related to Sciatica, unspecified laterality Symptomatic. Continu e following up with orthopaedic surgeon as scheduled. Continue with Hydrocodone 5-325mg 1 tab every 12 hours as needed, Relafen 750mg 1 tablet BID, and Gabapentin 300mg 2 tabs QID. Encourage to complete stretches and qhvky-un-fqekvv exercises. Encouraged patient to try and lose some weight. Will monitor. Related to Spondylosis Symptomatic. Continu e following up with orthopaedic surgeon as scheduled. Continue with Hydrocodone 5-325mg 1 tab every 12 hours as needed, Relafen 750mg 1 tablet BID, and Gabapentin 300mg 2 tabs QID. Encourage to complete stretches and iobar-xs-pnlzia exercises. Encouraged patient to try and lose some weight. Will monitor. Related to Osteoarthritis of spine with radiculopathy, cervical region Symptomatic. Continu e following up with orthopaedic surgeon as scheduled. Continue with Hydrocodone 5-325mg 1 tab every 12 hours as needed, Relafen 750mg 1 tablet BID, and Gabapentin 300mg 2 tabs QID. Encourage to complete stretches and xiemo-mg-wrvred exercises. Encouraged patient to try and lose some weight. Will monitor. Related to Lumbosacral radiculopathy due to degenerative joint disease of spine Symptomatic. Continu e following up with orthopaedic surgeon as scheduled. Continue with Hydrocodone 5-325mg 1 tab every 12 hours as needed, Relafen 750mg 1 tablet BID, and Gabapentin 300mg 2 tabs QID. Encourage to complete stretches and msmpj-dc-dwrvpy exercises. Encouraged patient to try and lose [...] tabs QID. Encourage to complete stretches and koxne-hi-nljgsg exercises. Encouraged patient to try and lose some weight. Will monitor. Related to Unilateral primary osteoarthritis, left knee Controlled. Continue following up with orthopaedic surgeon as scheduled. Continue with Hydrocodone 5-325mg 1 tab every 12 hours as needed. STOP Feldene 20mg 1 tab daily. START with Relafen 750mg 1 tablet BID. Continue with Gabapentin 300mg 2 tabs QID. Encourage to complete stretches and yngum-lu-pnzrlw exercises. Encouraged patient to try and lose [...] tabs QID. Encourage to complete stretches and mqgie-yk-iwwvmu exercises. Encouraged patient to try and lose [...] tabs QID. Encourage to complete stretches and lvhlw-gi-mhnutp exercises. Encouraged patient to try and lose some weight. Will monitor. Related to Spondylosis Symptomatic. Continu e following up with orthopaedic surgeon as scheduled. Continue with Hydrocodone 5-325mg 1 tab every 6 hours as needed. STOP Feldene 20mg 1 tab daily. START Relafen 750mg 1 tablet BID Continue with Gabapentin 300mg 2 tabs QID. Encourage to complete stretches and mfvxo-pk-uuuxcj exercises. Encouraged patient to try and lose [...] as directed. Encourage to complete stretches and nmsdn-yz-hlggbh exercises. Encouraged patient to try and lose some weight. Will monitor. Related to Sciatica, unspecified laterality Stable. Will continu e to monitor. Notify for worsening symptoms. Related to Irritable bowel syndrome with diarrhea WBC 16.78 on 019. Will refer to american board certified orthotist if WBC remains elevated today. Will monitor. [...] as directed. Encourage to complete stretches and wdtwv-st-zdbdkp exercises. Encouraged patient to try and lose [...] as directed. Encourage to complete stretches and sngdv-pl-nunwoa exercises. Encouraged patient to try and lose [...] as directed. Encourage to complete stretches and gbtht-rg-qszjmw exercises. Encouraged patient to try and lose [...] tab QHS. Encourage to complete stretches and eiyfp-rp-qgzazi exercises. Will continue to monitor. Related to [...] as directed. Encourage to complete stretches and niqnw-yv-cjyidj exercises. Encouraged patient to try and lose [...] as directed. Encourage to complete stretches and ejikb-yr-hajpid exercises. Encouraged patient to try and lose some weight. Will monitor. Related to Lateral epicondylitis of right elbow WBC 16.78 on 019. Will refer to american board certified orthotist if WBC remains elevated today. Will monitor. Related to Leukocytosis, unspecified type Pain persists. Judy nue following up with orthopaedic surgeon as scheduled. Continue with Hydrocodone 5-325mg 1 tab every 6 hours as needed and Feldine 20mg 1 tab daily. Gabapentin 300mg 2 tabs QID and Flexeril 10mg 1 tab QHS as directed. Encourage to complete stretches and nudwj-zt-qkmudr exercises. Encouraged patient to try and lose [...] as directed. Encourage to complete stretches and kygmg-hp-cfvfsj exercises. Encouraged patient to try and lose [...] as directed. Encourage to complete stretches and wjewm-vb-nzmpuy exercises. Encouraged patient to try and lose [...] tab QHS. Encourage to complete stretches and ylalq-vg-fbisjc exercises. Will continue to monitor. Related to [...] as directed. Encourage to complete stretches and vcekc-pv-emnpqf exercises. Encouraged patient to try and lose [...] as directed. Encourage to complete stretches and swjjz-wc-oxtxea exercises. Encouraged patient to try and lose some weight. Will monitor. Related to Lumbosacral radiculopathy due to degenerative joint disease of spine Pain persists. Judy nue with Gabapentin 300mg 2 tabs QID and Flexeril 10mg 1 tab QHS as directed. Encourage to complete stretches and iqniy-yq-afkzzt exercises. Encouraged patient to try and lose some weight. Will monitor. Related to Lateral epicondylitis of right elbow WBC 19.61 on 019 and 19.23 on 05/20/2019. Will refer to american board certified orthotist if WBC remains elevated today. Will monitor. [...]
--- OUTSIDE RECORDS SUMMARY | 2024-12-12 02:06 | XMS_ITS | Patient Health Summary ---
Author Organization [facility] Address [address] [place] [address] Care Team Providers Care Boiler House Inspector Name Role Phone Dino Roperhen Primary Care Provider [phone] Note from [facility],non-owned Affiliates and Associated Physician Practices is amultiple site organization consisting of ambulatory clinics and hospital sitesin [place], [place], [place] and [place]. This disclosure is being madepursuant to the Care Everywhere program and may not contain all information available regarding this patient. Last updated 18.[facility] Allergies No known active allergies Medications * [...] NOTIFICATION(Performed 03/04/2021) Performed for Preoperative examination * GA RAD EXCIS WRIST SYNOV/TENDON,EXTEN(Performed 03/04/2021) Performed for Carpal tunnel syndrome, right, Extensor intersection syndrome, right * GA REVISE MEDIAN N/CARPAL TUNNEL SURG(Performed 03/04/2021) Performed [...] [facility] Calculated P Ward 28 degrees [facility] MUSE Calculated R Ward 52 degrees [facility] Calculated T Ward -3 degrees [facility] Interpretation EKG Normal sinus rhythm Low voltage QRS Nonspecific ST and T wave abnormality Borderline ECG Confirmed by CITLALI MOHAN, SAMER ([id number]) on 03/08/2023 3:10:06 AM [facility] 03/07/2023 1:56 PM CDT 03/08/2023 3:10 AM CDT Samer Citlali MOHAN ECG ORDERABLES [facility] MUSE * LAB RESULTS ORDER [...] See Separate Report 03/04/2021 12:30 PM CDT [facility] Urine URINE / Unknown 11:17 AM CDT Faviola De La Fuente DO LAB - URINALYSIS ORD ERABLES [facility] [address] [place] [address] * HCG URINE QUALITATIVE - POCT (IP) INTERFACED (03/04/2021 11:27 AM CDT) Only the most recent of2 resultswithin the time period is included. HCG Qual Urine Negative Negative 03/04/2021 11:32 AM CDT [facility] Urine URINE / Unknown 03/04/2021 1 1:27 AM CDT 03/04/2021 11:32 AM CDT Kam Isabel MD LAB - POINT OF CARE ORDERABLES [facility] [address] [place] [address] * XR FINGERS RIGHT 2VW OR MORE (02/11/2021 9:00 AM CDT) Anatomical Region Laterality Modality Upper Extremity, Wrist / Hand Ra diographic Imaging 02/11/2021 10:2 8 AM CDT Narrative 02/11/2021 10:29 AM CDT EXAM: XR FINGERS RIGHT 2VW OR MORE*[id number] INDICATION: Right thumb pain COMPARISON: none available FINDINGS: There is no displaced fracture or dislocation. There is no osseous destruction. Significant hypertrophic or erosive changes are not identified. A radiodense foreign body is not identified. *Reading Radiologist: Juan Alberto Morse on 02/11/2021 at 10:29 AM Procedure Note Juan Alberto Morse MD - 02/11/2021 EXAM: XR FINGERS RIGHT 2VW OR MORE*[id number] INDICATION: Right thumb pain COMPARISON: none available [...] Case Report Surgical Pathology Report ? Case: [id number] ? Authorizing Provider: ??Kam Isabel MD ? Collected: ? 09/01/2020 12:24 PM ? Ordering Location: ? [facility] ?Received: ?09/01/2020 02:48 PM ? CENTER ? Pathologist: ? Silvestre Levi MD ? Specimen: ?Hand Mass, right wrist ? 09/03/2020 2:53 PM CDT [facility] Final Diagnosis 1. Right wrist mass, excision: -- Benign pseudocyst, excised AB/scs 09/03/2020 2:53 PM CDT [facility] Gross Description Received in formalin, labeled with the patient's name and hand mass are two pieces of glistening, light solis tissue measuring 0.5 x 0.3 and 0.8 x 0.5 cm. Submitted in toto in A1. AB/ns 09/03/2020 2:53 PM CDT [facility] Microscopic Description The right wrist lesion appears to be a benign pseudocyst. There is considerable fibrosis surrounding the cyst suggesting that it has been there for some time. AB/scs 09/03/2020 2:53 PM CDT [facility] Disclaimer All histochemical and/or immunohistochemical results are interpreted with controls that demonstrate appropriate staining reactions before reporting results. Note on use of immunocytochemistry reagents: This test was developed and its performance characteristic determined by [facility], Department of Laboratory Medicine. It has not [...] interpreted with caution. 09/03/2020 2:53 PM CDT [facility] Embedded Images 09/03/2020 2:53 PM CDT [facility] Pathology/Cytolo gy MASS / Unknown 09/01/2020 12:24 PM CDT 09/01/2020 2:48 PM CDT Comment:Pre-op diagnosis: D49.2 S. Aidan Isabel MD LAB - PATHOLOGY/CYTO LOGY ORDERABLES [facility] [address] [place] [address] * MRI LUMBAR SPINE WO CONTRAST (06/04/2018 [...] 1.7 X 1.2 X 1.0 CM. ??A ABLE BODIED WATCHMAN SECTION IS SUBMITTED IN A SINGLE CASSETTE. MP/SP MICROSCOPIC EXAM ? MICROSCOPIC ?? SECTIONS OF SKIN DISPLAY A SINUS TRACT, CONSISTENT WITH PILONIDAL CYST. DIAGNOSIS ? DIAGNOSIS ?? [1] SKIN, EXCISION -- ?? PILONIDAL CYST EZC/[id number] Released By ?ADIN KEN MISCELLANEOUS SAMPLE S / Unknown 06/30/1999 06/30/1999 10:35 AM CDT Historical Provider LAB - PATHOLOGY/C YTOLOGY ORDERABLES Care Teams Boiler House Inspector Relationship Specialty Start Date End Date Dino Roper DO [address] [place] [address] PCP - General Family Medicine 08/30/20
--- OUTSIDE RECORDS SUMMARY | 2024-12-12 02:06 | XMS_ITS | Clinical Summary ---
Author Organization [facility] Address [address] [place] [address] Care Team Providers Care Sample Puller Name Role Phone Roper Dino SalgadoEmil Primary Care Provider [phone] Source Comments [facility],non-owned Affiliates and Associated Physician Practices is amultiple site organization consisting of ambulatory clinics and hospital sitesin [place], [place], [place] and [place]. This disclosure is being madepursuant to the Care Everywhere program and may not contain all information available regarding this patient. Last updated 18.[facility] Allergies No known active allergies Medications * [...] age to complete this topic Care Teams Sample Puller Relationship Specialty Start Date End Date Dino Roper DO [address] [place] [address] [place] [address] PCP - General Family Medicine 08/30/20
--- OUTSIDE RECORDS SUMMARY | 2024-12-12 02:08 | XMS_ITS | Referral Summary ---
Author Organization [facility] Address [address] [place] [address] Care Team Providers Care Rn Team Leader Name Role Phone Cody Roper DO Primary Care Provider David Bell MD Unavailable [phone] Allergies No known active allergies Medications [...] tablet 1 hour before procedure. Will need driver material handler to bring him. 2 tablet 3 Active [...] Comments Blood Pressure 107/77 11/30/2022 12:49 PM FRONT [employer]KER LOCKSTITCH Pulse 77 11/30/2022 12:49 PM [employer] Temperature 36.4 ??C (97.5 ??F) 11/02/2022 7:14 AM CS T Respiratory Rate 16 11/30/2022 12:49 PM [employer] Oxygen Saturation 100% 11/30/2022 12:49 PM [employer] Inhaled Oxygen Concentration - - Weight 83.2 kg (183 lb 8 oz) 10/19/2022 9:40 AM [employer] Height 157.5 cm (5' 2 ) 10/19/2022 9:40 AM [employer] Body Mass Index 33.56 10/19/2022 9:40 AM [employer] Plan of Treatment Not on file Insurance [employer] ACCESS CHOICE [employer] ACCESS CHOICE Care Teams Rn Team Leader Relationship Specialty Start Date End Date Cody Roper DO [address] [place] [address] PCP - General Family Medicine 07/02/19 David Bell MD [address] [place] [address] Medical Oncologist/[employer] Hematology and Oncology 06/11/20
--- OUTSIDE RECORDS SUMMARY | 2024-12-12 02:08 | XMS_ITS | Encounter Summary ---
Author Organization [facility] Address [address] [place] [address] Care Team Providers Care Bilingual Kindergarten Teacher Name Role Phone Cody Roper DO Primary Care Provider David Bell MD Unavailable [phone] Encounter Details Date Type Department Care Team (Late st Contact Info) Description 01/12/2023 Telephone [facility] [address] [place] [address] [place] [id number] [address] Social History Tobacco Use Types Packs/Day Years [...] on filedocumented in this encounter Care Teams Bilingual Kindergarten Teacher Relationship Specialty Start Date End Date Cody Roper DO [address] [place] [address] PCP - General Family Medicine 07/02/19 David Bell MD [address] [place] [address] Medical Oncologist/Beader Hematology and Oncology 06/11/20 documented as of this encounter
--- OUTSIDE RECORDS SUMMARY | 2024-12-12 02:08 | XMS_ITS | Clinical Summary ---
Author Organization [facility] Address [address] [place] [address]. [place], [place] [id number] [place] [address] Care Team Providers Care Lavatory Attendant Name Role Phone Dino Roperhen Primary Care Provider [phone] David Bell MD Unavailable [phone] Danilo oDlan MD Unavailable [phone] Harvey Liriano MD Unavailable Unavailable Allergies Active [...] Department Care Team Description 11/13/2024 2:06 PM HEAD OF ACADEMIC TECHNOLOGY - 11/13/2024 4:36 PM [facility] Emergency [facility] [place] [address] Raz Wade PA-C Flank Pain Discharge Disposition: Home or Self Care (Routine Discharge) 11/13/2024 Travel 11/08/2024 4:47 AM HEAD OF ACADEMIC TECHNOLOGY - 11/08/2024 7:06 AM [facility] Emergency [facility] [place] [address] Jorgito Kathleen MD,PHD Leta Silveira MD Flank [...] on file Legal Sex Female 4:07 PM HEAD OF ACADEMIC TECHNOLOGY Gender Identity Not on file Sexual Orientation Not on file Last Filed Vital Signs Vital Sign Reading Time Taken Comments Blood Pressure 158/108 11/13/2024 4:03 PM HEAD OF ACADEMIC TECHNOLOGY Pulse 91 11/13/2024 4:03 PM HEAD [employer] ACADEMIC TECHNOLOGY Temperature 36.9 ??C (98.4 ??F) 11/13/2024 1:38 PM CS T Respiratory Rate 18 11/13/2024 4:03 PM HEAD OF ACADEMIC TECHNOLOGY Oxygen Saturation 100% 11/13/2024 4:03 PM HEAD OF ACADEMIC TECHNOLOGY Inhaled Oxygen Concentration - - Weight 76.2 kg (167 lb 15.9 oz) 11/13/2024 1:38 PM [employer] ACADEMIC TECHNOLOGY Height 157.5 cm (5' 2 ) 11/13/2024 1:38 PM HEAD OF ACADEMIC TECHNOLOGY Body Mass Index 30.73 11/13/2024 1:38 PM HEAD OF ACADEMIC TECHNOLOGY Plan of Treatment Health Maintenance Due Date [...] Solis, RN Medical Devices Implanted Type Area Private Advisor Device Identifier Shelf Expiration Date Model / Serial / Lot Graft Bone I Factor 2.5cc Allograft Putty Syringe - [id number] Implanted:Qt y: 1 on 03/08/2023 by Danilo Dolan MD at [facility] Bone N/A: Spine Cervical [employer] [id number] 07/19/2025 700-025 / / [id number] Zavation Cage [id number] Implanted:Qt y: 1 on 03/08/2023 by Danilo Dolan MD at [facility] Cage N/A: Spine Cervical 20-0607 / / Description:At c6-7 Zavation [id number] Cage Implanted:Qt y: 1 on 03/08/2023 by Danilo Dolan MD at [facility] Cage N/A: Spine Cervical 20-0606 / / Description:At c5-6 Zavation 32mm Plate Implanted:Qt y: 1 on 03/08/2023 by Danilo Dolan MD at [facility] Plate N/A: Spine Cervical 30-0232 / / Zavation 4.0x12mm Vsd Screw Implanted:Qt y: 6 on 03/08/2023 by Danilo Dolan MD at [facility] Screw N/A: Spine Cervical 31-4012 / / Tissue Surgiflo 8ml - [id number] Implanted:Qt y: 1 on 03/08/2023 by Danilo Dolan MD at [facility] Sealant N/A: Spine Cervical [employer] 04/18/2024 [id number] / / [id number] Procedures Procedure Name Priority Date/Time Associated Diagnosis Comments HC URINALYSIS AUTO W/O MICRO STAT 11/13/2024 2:26 PM HEAD OF ACADEMIC TECHNOLOGY LIPASE STAT 11/13/2024 2:26 PM HEAD OF ACADEMIC TECHNOLOGY COMPREHENSIVE METABOLIC PANEL STAT 11/13/2024 2:26 PM HEAD OF ACADEMIC TECHNOLOGY CBC W/DIFF AUTOMATED STAT 11/13/2024 2:26 PM HEAD OF AC[employer]EMIC TECHNOLOGY CT ABD+PEL WO CON STAT 11/13/2024 2:2 0 PM HEAD OF ACADEMIC TECHN[employer]Y CT ABD+PEL WO CON STAT 11/08/2024 5:4 4 AM [employer] ACADEMIC TECHNOLOGY COMPREHENSIVE METABOLIC PANEL STAT 11/08/2024 5:43 AM [employer] ACADEMIC TECHNOLOGY CBC W/DIFF AUTOMATED STAT 11/08/2024 5:43 AM HEAD OF ACADEMIC TECHNOLOGY POCT URINE (BACK OFFICE) STAT 11/08/2024 5:27 AM HEAD OF ACADEMIC TECHNOLOGY HC URINALYSIS AUTO W/O MICRO STAT 11/08/2024 5:06 AM HEAD OF ACADEMIC TECHNOLOGY from Last 3 Months Results * URINALYSIS (11/13/2024 2:26 PM HEAD OF ACADEMIC TECHNOLOGY) Only the most recent of2 resultswithin the time period is included. SPECIMEN TYPE URINE CLEAN CATCH 11/13/2024 2:23 PM HEAD OF ACADEMIC TECHNOLOGY [facility] COLOR (U) LIGHT YELLOW 11/13/2024 2:53 PM HEAD OF ACADEMIC TECHNOLOGY [facility] TRANSPARENCY CLEAR 11/13/2024 2:53 PM HEAD OF ACADEMIC TECHNOLOGY [facility] SPECIFIC GRAVITY (U) 1.009 1.001 - 1.030 11/13/2024 2:53 PM HEAD OF ACADEMIC TECHNOLOGY [facility] U PH 6.5 5.0 - 9.0 11/13/2024 2:53 PM HEAD OF ACADEMIC TECHNOLOGY [facility] LEUKOCYTES (U) NEGATIVE NEGATIVE 11/13/2024 2:53 PM HEAD OF ACADEMIC TECHNOLOGY [facility] NITRITES NEGATIVE NEGATIVE 11/13/2024 2:53 PM HEAD OF ACADEMIC TECHNOLOGY [facility] PROTEIN RANDOM (U) NEGATIVE <30 MG/DL 11/13/2024 2:53 PM HEAD OF ACADEMIC TECHNOLOGY [facility] GLUCOSE (U) NORMAL NORMAL MG/DL 11/13/2024 2:53 PM HEAD OF ACADEMIC TECHNOLOGY [facility] KETONES MG/DL (U) NEGATIVE NEGATIVE MG/DL 11/13/2024 2:53 PM HEAD OF ACADEMIC TECHNOLOGY [facility] UROBILINOGEN NORMAL NORMAL MG/DL 11/13/2024 2:53 PM HEAD OF ACADEMIC TECHNOLOGY [facility] BILIRUBIN (U) NEGATIVE NEGATIVE MG/DL 11/13/2024 2:53 PM HEAD OF ACADEMIC TECHNOLOGY [facility] BLOOD (U) NEGATIVE NEGATIVE 11/13/2024 2:53 PM HEAD OF ACADEMIC TECHNOLOGY [facility] URINE SPECIMEN OBTAINED BY CLEAN CATCH PROCEDURE / Unknown 11/13/2024 2:26 PM HEAD OF ACADEMIC TECHNOLOGY Priti Paredes CHURN OPERATOR URINE ORDERABLES Final Resu lt [facility] [address] [place] [address], [place] [phone] * (ABNORMAL) COMPREHENSIVE METABOLIC PANEL (11/13/2024 2:26 PM HEAD OF ACADEMIC TECHNOLOGY) Only the most recent of2 resultswithin the time period is included. GLUCOSE 93 70 - 99 MG/DL 11/13/2024 3:19 PM HEAD OF ACADEMIC TECHNOLOGY [facility] BUN 11 7 - 18 MG/DL 11/13/2024 3:19 PM HEAD OF ACADEMIC TECHNOLOGY [facility] CREATININE S/P/B 0.76 0.55 - 1.02 MG/DL 11/13/2024 3:19 PM HEAD OF ACADEMIC TECHNOLOGY [facility] SODIUM S/P/B 136 136 - 145 MMOL/L 11/13/2024 3:19 PM HEAD OF ACADEMIC TECHNOLOGY [facility] POTASSIUM S/P/B 4.0 3.5 - 5.1 MMOL/L 11/13/2024 3:19 PM [facility] CHLORIDE S/P/B 105 97 - 115 MMOL/L 11/13/2024 3:19 PM [facility] CO2 26.7 21 - 32 MMOL/L 11/13/2024 3:19 PM [facility] CALCIUM S/P/B 9.6 8.5 - 10.1 MG/DL 11/13/2024 3:19 PM [facility] BILIRUBIN TOTAL S/P/B 0.3 0.2 - 1.2 MG/DL 11/13/2024 3:19 PM [facility] Comment: THIS ASSAY IS NOT RECOMMENDED FOR PATIENTS UNDERGOING TREATMENT WITH ELTROMBOPAG DUE TO THE POTENTIAL FOR FALSELY ELEVATED RESULTS. TOTAL PROTEIN S/P/B 8.3(H) 6.4 - 8.2 G/DL 11/13/2024 3:19 PM [facility] ALBUMIN S/P/B 3.7 3.4 - 5.0 G/DL 11/13/2024 3:19 PM [facility] AST 62(H) 15 - 37 U/L 11/13/2024 3:19 PM [facility] ALT 206(H) 14 - 55 U/L 11/13/2024 3:19 PM [facility] ALKALINE PHOSPHATASE S/P/B 134 50 - 136 U/L 11/13/2024 3:19 PM [facility] ANION GAP 4.3 2 - 10 MMOL/L 11/13/2024 3:19 PM [facility] BUN CREATININE RATIO 14.5 6 - 26 11/13/2024 3:19 PM [facility] A/G RATIO 0.8(L) 1.0 - 2.0 RATIO 11/13/2024 3:19 PM [facility] GFR ESTIMATE >90 >90 ML/MIN/1.7 3 M2 11/13/2024 3:19 PM HEAD OF ACADEMIC TECHNOLOGY [facility] Comment: NOTE: eGFR is not calculated for patients <18 years of age or gender unknown. This is an estimated GFR calculation using the new CKD EPI creatinine equation without race and so does not require a correction factor for race. This estimated GFR should not be used for calculating drug doses. 11/13/2024 2:26 PM HEAD OF ACADEMIC TECHNOLOGY Priti Paredes CHURN OPERATOR LABORATORY Final Resul t [facility] [address] [place] [address], [place] [phone] * (ABNORMAL) CBC W/DIFF AUTOMATED (11/13/2024 2:26 PM [employer] OF ACADEMIC TECHNOLOGY) Only the most recent of2 resultswithin the time period is included. WBC 22.70(H) 4.5 - 11.0 x10'3/uL 11/13/2024 2:55 PM HEAD OF ACADEMIC TECHNOLOGY [facility] RBC 4.86 4.20 - 5.40 x10'6/uL 11/13/2024 2:55 PM HEAD OF ACADEMIC TECHNOLOGY [facility] HGB 15.0 12.0 - 16.0 G/DL 11/13/2024 2:55 PM HEAD OF ACADEMIC TECHNOLOGY [facility] HCT 44.8 38.0 - 48.0 % 11/13/2024 2:55 PM HEAD OF ACADEMIC TECHNOLOGY [facility] MCV 92.2 81.0 - 99.0 FL 11/13/2024 2:55 PM HEAD OF ACADEMIC TECHNOLOGY [facility] MCH 30.9 27.0 - 31.0 PG 11/13/2024 2:55 PM HEAD OF ACADEMIC TECHNOLOGY [facility] MCHC 33.5 32.0 - 36.0 G/DL 11/13/2024 2:55 PM HEAD OF ACADEMIC TECHNOLOGY [facility] RDW 13.2 11.5 - 14.5 % 11/13/2024 2:55 PM HEAD OF ACADEMIC TECHNOLOGY [facility] PLT 411(H) 130 - 400 x10'3/uL 11/13/2024 2:55 PM [facility] MPV 9.1(L) 9.3 - 12.2 FL 11/13/2024 2:55 PM HEAD OF ACADEMIC TECHNOLOGY [facility] DIFFERENTIAL TYPE AUTOMATED DIFFERENTIAL 11/13/2024 2:55 PM HEAD OF ACADEMIC TECHNOLOGY [facility] NEUTROPHILS % 74.0 % 11/13/2024 2:55 PM [facility] LYMPHOCYTES % 16.5 % 11/13/2024 2:55 PM [facility] MONOCYTES % 6.1 % 11/13/2024 2:55 PM HEAD OF ACADEMIC TECHNOLOGY [facility] EOSINOPHILS 1.4 % 11/13/2024 2:55 PM HEAD OF ACADEMIC TECHNOLOGY [facility] BASOPHILS 0.7 % 11/13/2024 2:55 PM HEAD OF ACADEMIC TECHNOLOGY [facility] IMMATURE GRANS % 1.3 % 11/13/20 2:55 PM [facility] ABS. NEUTROPHILS 16.79(H) 1.80 - 7.70 x10'3/uL 11/13/2024 2:55 PM HEAD OF ACADEMIC TECHNOLOGY [facility] ABS. LYMPHOCYTES 3.75 1.00 - 4.80 x10'3/uL 11/13/2024 2:55 PM HEAD OF ACADEMIC TECHNOLOGY [facility] ABS. MONOCYTES 1.39(H) 0.24 - 0.86 x10'3/uL 11/13/2024 2:55 PM [facility] ABS. EOSINOPHILS 0.31 0.04 - 0.36 x10'3/uL 11/13/2024 2:55 PM HEAD OF ACADEMIC TECHNOLOGY [facility] ABS. BASOPHILS 0.16(H) 0.01 - 0.08 x10'3/uL 11/13/2024 2:55 PM HEAD OF ACADEMIC TECHNOLOGY [facility] ABS. IMMATURE GRANULOCYTES 0.30 0.00 - 0.49 x10'3/uL 11/13/2024 2:55 PM HEAD OF ACADEMIC TECHNOLOGY [facility] 11/13/2024 2:26 PM HEAD OF ACADEMIC TECHNOLOGY Priti Paredes [facility] Final Resul t Performing Organization Address City/[facility]/ZIP Co de Phone Number [facility] [address] [place] [address], [place] [phone] * (ABNORMAL) LIPASE (11/13/2024 2:26 PM HEAD OF ACADEMIC TECHNOLOGY) LIPASE 101(H) 13 - 75 UNITS/L 11/13/2024 3:19 PM HEAD OF ACADEMIC TECHNOLOGY [facility] 11/13/2024 2:26 PM HEAD OF ACADEMIC TECHNOLOGY Priti Paredes [facility] Final Resul t Performing Organization Address [facility] Co de Phone Number [address] [address], [place] [phone] * CT ABD+PEL WO CON (11/13/2024 2:20 PM HEAD OF ACADEMIC TECHNOLOGY) Only the most recent of2 resultswithin the time period is included. Anatomical Region Laterality Modality Abdomen Computed Tomogra phy 11/13/2024 2:22 PM HEAD OF ACADEMIC TECHNOLOGY Impressions 11/13/2024 2:33 PM HEAD OF ACADEMIC TECHNOLOGY IMPRESSION: 1. ??No obstructive stone or other acute abnormality identified. 2. ??Nonobstructive bilateral nephrolithiasis. 3. ??Bilateral ovarian cysts. 4. ??Other chronic or nonurgent findings as described above. Referred By: ?? Interpreted By: Nathan Welch MD, 11/13/2024 2:22 PM Narrative 11/13/2024 2:33 PM HEAD OF ACADEMIC TECHNOLOGY [address] [address] Examination: CT ABD+PEL WO CON Clinical history: [...] Procedure Note Nathan Welch MD - 11/13/[address] [address] Examination: CT ABD+PEL WO CON Clinical history: [...] Welch MD, 11/13/2024 2:22 PM Priti Paredes CHURN OPERATOR CT Final Resul t * POCT urine (11/08/2024 5:27 AM HEAD OF ACADEMIC TECHNOLOGY) URINE HCG TEST NEGATIVE Internal Control: VALID Jorgito Kathleen MD,PHD POINT OF CARE TEST ORDERAB LES Final Result from Last 3 Months Insurance [id number] Advance Directives * Full Code (Latest Code Status on File) Date Activated Date Inactivated Comments 03/09/2023 12:43 AM 03/09/2023 6:15 PM Care Teams Lavatory Attendant Relationship Specialty Start Date End Date Dino Roper DO [address] [place] [address] PCP - General FAMILY PRACTICE 01/23/23 David Bell MD [address] [place] [address], [address] [place] [address] Referring Physician MEDICAL ONCOLOGY 03/01/23 Danilo Dolan MD [address] [address] NEUROLOGICAL SURGERY 03/01/23 Harvey Liriano MD [address] [address] CARDIOVASCULAR DISEASE 03/07/23
--- OUTSIDE RECORDS SUMMARY | 2024-12-12 02:08 | XMS_ITS | Clinical Summary ---
Author Organization [facility] Address [address] [place] [address] Care Team Providers Care Silverer Name Role Phone Cody Roper DO Primary Care Provider David Bell MD Unavailable [phone] Allergies No known active allergies Medications [...] tablet 1 hour before procedure. Will need heavy truck driver to bring him. 2 tablet 3 [...] Comments Blood Pressure 107/77 11/30/2022 12:49 PM DISTRIBUTION SUPERVISOR Pulse 77 11/30/2022 12:49 PM DISTRIBUTION SUPERVISOR Temperature 36.4 ??C (97.5 ??F) 11/02/2022 7:14 AM CS T Respiratory Rate 16 11/30/2022 12:49 PM DISTRIBUTION SUPERVISOR Oxygen Saturation 100% 11/30/2022 12:49 PM DISTRIBUTION SUPERVISOR Inhaled Oxygen Concentration - - Weight 83.2 kg (183 lb 8 oz) 10/19/2022 9:40 AM DISTRIBUTION SUPERVISOR Height 157.5 cm (5' 2 ) 10/19/2022 9:40 AM DISTRIBUTION SUPERVISOR Body Mass Index 33.56 10/19/2022 9:40 AM DISTRIBUTION SUPERVISOR Plan of Treatment Health Maintenance Due Date [...] patient's age to complete this topic Insurance Invarium Invarium Care Teams Silverer Relationship Specialty Start Date End Date Cody Roper DO [address] [place] [address] PCP - General Family Medicine 07/02/19 David Bell MD [address] [place] [address] Medical Oncologist/Certified Physician'S Assistant Hematology and Oncology 06/11/20
== END 2024-12-10 14:18 | disposition home or self-care (01) ==
LOC: ANHSURGERY 14:26
PROVIDERS: Visit Provider Urology
DX: Z01.812 Encounter for preprocedural laboratory examination (principal); N20.0 Calculus of kidney
CPT/HCPCS: 36415; 81001; 85610; 85730

== ENCOUNTER 2024-12-12 01:03 | Day surgery (SDC) | payer BC, SELFPAY ==
[2024-12-10 10:18] VITALS: BMI 29.2
--- NOTE | 2024-12-10 10:25 | PC.NURSE ---
Report to the Outpatient Waiting Room, entrance under the green pavilion located off [facility], at time _1100_ on date _[id number]_. Planned Procedure Time: _1pm_.? Time changes happen often and if your time is changed the preop area will call you the afternoon before. - You and your visitor will be asked to self-screen and do not enter if you have any COVID symptoms. Please call surgeon if you need to reschedule. - A mask is optional within the hospital at this time. Patients may have clear liquids (water, carbonated beverages, clear teas, apple juice) until 3 hours prior to surgery with a maximum of 20 ounces. - No food from midnight until time of surgery and no smoking. This includes no chewing gum, candy or mints. Take only the following medications with a SIP of water on the morning of surgery: ___Buspirone and inhaler.____ DO NOT STOP ANY OF YOUR OTHER PRESCRIPTION MEDICATIONS PRIOR TO SURGERY EXCEPT THE FOLLOWING Medications to discontinue per physician ____None____ Acetaminophen ok for pain. Date to take last dose Please no make-up, nail tajik, hairspray, perfume, deodorant, or body powder the day of surgery.? No jewelry (including any body piercings) or valuables the day of surgery, leave them at home.? Please take a shower or bath the night before, or the morning of, surgery with an antibacterial soap.? Wear comfortable, loose fitting clothing.? - Jewelry must be removed prior to entering the operating room.? Rings and piercings that are not removed may be cut off. - The hospital will not accept responsibility for valuables.? - Please leave all valuables, including medications, at home the day of surgery. If you are going home after surgery, a licensed courtesy car driver must drive you home.? - NO public transportation without another adult if you receive anesthesia. - We recommend that an adult stay with you for 24 hours following discharge. - We also recommend that you do not drive, make important decision, drink alcoholic beverages, or take any drugs that were not prescribed by your health care provider for at least 24 hours after your discharge time. Follow any additional instructions given to you from your surgeon. Telephone instructions given to __Melissa__and asked if any additional questions and then verbalized understanding. Patient advised to call surgeon office or pre surgery nurse liaison [phone] if any additional questions.
[2024-12-12] VITALS (9 sets, daily range): BP systolic 109–129; BP diastolic 66–86; PULSE 76–88; RESP 15–20; TEMP 36.6–37.2; O2SAT 94–100
--- NOTE | ~2024-12-12 | XR_ITS ---
EXAMINATION: XR abdomen/kub 1V DATE: 12/12/2024 11:14 INDICATION: Left kidney stone. TECHNIQUE: A supine view of the abdomen on 2 radiographs was obtained. COMPARISON: CT abdomen and pelvis 12/08/2024 FINDINGS: There are no dilated loops of bowel. There is a large volume of stool in the colon. The kid neys are obscured by bowel. There is an 11 mm stone in left kidney lower pole. Surgical clips in the right upper quadrant are likely from cholecystectomy. IMPRESSION: 1. 11 mm stone in left kidney lower pole. Reviewed, dictated and finalized at location B. AGING DESIGNER
--- NOTE | 2024-12-12 06:31 | WPDHPUPDATE1 ---
History and Physical Update Update Date/Time: 12/12/24 06:31 History and Physical has been reviewed, including an updated exam of the patient. There are NO changes in the patient's condition. Risks, benefits, and alternatives have been discussed and questions answered. Patient agrees to proceed with procedure.
--- NOTE | 2024-12-12 07:37 | P.PNAN_ITS ---
Anes - Initial Pre Proc Eval Procedure: Operation Date: 12/12/24 13:00 Proposed Procedures p Left Extracorporeal Shock Wave Lithotripsy - Sher Mattson MD Date/Time: 12/12/24 07:37 Surgeon: Sher Mattson MD Pre Op Diagnosis: Lt Kidney Stone Patient Data Age: 44 Gender: F Height: 1.57 m Weight: 72.7 kg Allergies Allergy/AdvReac Type Severity Reaction Status Date / Time No Known Allergies Allergy Verified 12/10/24 10:14 Home Medications ?Medication ?Instructions ?Recorded ?Confirmed ?Type dicyclomine 20 mg tablet 20 mg PO TID PRN helps stomach 02/14/24 12/10/24 History eluxadoline 100 mg tablet (Viberzi) 100 mg PO BID 02/14/24 12/10/24 History fluticasone 250 mcg-salmeterol 50 1 ea inhalation BID 02/14/24 12/10/24 History mcg/dose blistr powdr for inhalation lisinopril 10 mg tablet 10 mg PO DAILY 02/14/24 12/10/24 History metformin 500 mg tablet,extended 500 mg PO BID 02/14/24 12/10/24 History release 24 hr buspirone 15 mg tablet 15 mg PO TID 09/26/24 12/10/24 History Patient hx anesthesia problems: none Family hx anesthesia problems: none Results Review: All pre-operative results and documents have been reviewed as part of the pre- operative evaluation. [facility] Past Medical History Medical History (Updated 12/10/24 @ 00:00 by Background Daemon) Leukocytosis Chronic elevation with hematology consult in past. 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 Surgical History Surgical History History of appendectomy History of cholecystectomy History of cervical spinal surgery (03/08/23) anterior cervical discectomy and fusion Family History Family History Father Hypertension Patient's father is in good health Cerebrovascular accident Family history of heart disease in male family member before age 55 Mother Patient's mother is in good health Family history of diabetes mellitus in first degree relative Sibling Family history of diabetes mellitus in first degree relative Social History Social History Social History: Surrogate medical decision maker: Chinmay Muñoz, spouse ([phone]). Code status: Full code. Smoking packs per day: 1 Smoking cigarettes per day: 20.0 Years smoked: 30 Smoking pack-years: 30.00 Smoking status: Current every day smoker Tobacco type: cigarettes Second hand tobacco smoke exposure: Yes Alcohol intake: never Alcohol use details: rarely drinks, a couple time a month Substance use: current Substance use type: marijuana Other substance usage details: hs for insomnia Last use: Marijuana 10/14/24 Do You Feel Safe in your Home?: Yes Lack of Transportation: No Lack of Food: Never True Current Housing: I Have Housing Concerned About Future Housing: No Difficulty Paying Gas/Electric Bills: No Difficulty Paying for Meds: No Currently Unemployed: No Education: Grade School Difficulty w/ Childcare or Family Care: No Living arrangements: with family Additional living arrangements comments: Lives with father and . 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 Spiritual care concerns: No Agree to blood products: Yes Anes - Eval Final PreProcedure Day of Procedure 12/12/24 07:37 Patient weight: overweight Heart: regular rate and rhythm Lungs: clear to auscultation Airway: Mallampati scale class II Neurological: alert and oriented Last oral intake: >/= 8 hours ASA classification: III Emergent: no Anesthetic plan: proceed Anesthesia type and monitoring: general LMA and standard monitoring Results Review: All pre-operative results and documents have been reviewed as part of the pre- operative evaluation. Informed Consent: The patient's anesthetic plan and its attendant risks and benefits were discussed with the patient/family/POA. Questions were solicited and answers provided to the satisfaction of the patient/family/POA.
[2024-12-12] MEDS: LACTATED RINGERS 1,000 ML 30 ML IV CONT ×2 (11:30→14:08)
[2024-12-12] MEDS: fentaNYL CITRATE INJ (*CRX) 100 MCG/2 ML VIAL 50 MCG IV PUSH ×2 (11:36→12:00)
[2024-12-12] MEDS: ceFAZolin 2 GM/D5W 50 ML 2 GM/50 ML BAG IVPB (12:59)
[2024-12-12 13:00] LABS: BEDSIDEPREGUCG Negative (Negative)
--- NOTE | 2024-12-12 13:30 | P.OP_ITS ---
Procedure Note - Detailed Date of Procedure 12/12/24 Pre-op Diagnosis Lt Kidney Stone Post-op Diagnosis Same Procedure Performed Left ESWL Surgeon Sher Mattson MD Anesthesia General Description of Procedure The patient was brought to the operative suite where she was placed in the supine position on the Dornier lithotripsy table. The focal point of the lithotripter was placed at a 11mm left lower pole calculus. A total of 2500 shocks were delivered at a power setting of 4. There appeared to be good f ragmentation of the stone. The patient tolerated the procedure well and was taken to the recovery room in good condition. Drains No Packing No Pathology None sent Complications No immediate complications Condition Stable
[2024-12-12] MEDS: fentaNYL CITRATE INJ (*CRX) 100 MCG/2 ML VIAL 25 MCG IV PUSH ×4 (14:04→14:33)
[2024-12-12] MEDS: oxyCODONE HCL (*CRX) 5 MG TAB IR PO (15:00)
== END 2024-12-12 15:25 | disposition home or self-care (01) ==
PROVIDERS: Anesthesiology; Visit Provider Urology
PROC: (CPT 50590; principal; 2024-12-12 13:00)
DX: N20.0 Calculus of kidney (principal)
CPT/HCPCS: 50590; 74018; A9270; J0690; J2003; J2250; J2405; J2704; J3010; J7120

== ENCOUNTER 2024-12-23 10:48 | Emergency (ER) | payer BC, SELFPAY ==
--- NOTE | ~2024-12-23 | CT_ITS ---
EXAMINATION: CT abdomen pelvis wo con DATE: 12/23/2024 16:02 INDICATION: Left lower quadrant abdominal pain. TECHNIQUE: Computed tomography (CT) of the abdomen and pelvis was performed without intravenous contr ast. Automated exposure control and iterative reconstruction technique were employed. The dose-length product was 505.30 mGy-cm. COMPARISON: CT abdomen and pelvis 12/08/2024 FINDINGS: The visualized portions of lung bases demonstrate mild atelectasis. No pleural effusion. Th e heart size is normal. No pericardial effusion. The liver and spleen are normal. There are changes o f cholecystectomy. The pancreas and adrenal glands are normal. There is a 2 mm stone in right kidney. There is cortical thinning of left kidney. There are 4 stones in left kidney measuring up to 13 mm. There are no dilated loops of bowel. The appendix is not visualized. There are no pathologically enla rged lymph nodes. There is no free intraperitoneal fluid. There is mild lumbar spondylosis. IMPRESSION: 1. Nonobstructing bilateral kidney stones. Reviewed, dictated and finalized at location [facility]. [facility]PER[facility]
[2024-12-23 11:26] VITALS: BP 129/91; PULSE 89; RESP 18; TEMP 36.6; O2SAT 100
[2024-12-23 13:32] VITALS: BP 153/86; PULSE 93; RESP 18; TEMP 36.5; O2SAT 100
[2024-12-23 13:52] LABS: BEDSIDEPREGUCG Negative (Negative)
[2024-12-23 13:54] LABS: Basophils Absolute Auto 0.1 K/mm3 (0.0-0.1); Basophils Percent Auto 0.5 % (0.2-1.2); Eosinophils Absolute Auto 0.2 K/mm3 (0-0.3); Hematocrit 46.3 % (37.0-47.0); Hemoglobin 15.4 g/dL (12.0-15.0); Immature Granulocyte Percent A 0.6 % (0-0.5); Lymphocytes Absolute Auto 3.41 K/mm3 (0.9-3.2); Lymphocytes Percent Auto 19.3 % (18.3-44.2); Mean Corpuscular HGB Conc 33.3 g/dl (32-36); Mean Corpuscular Hemoglobin 30.7 pg (26-34); Mean Corpuscular Volume 92.2 fl (80-100); Mean Platelet Volume 9.3 fl (7.4-10.4); Monocytes Absolute Auto 0.9 K/mm3 (0.1-0.6); Neutrophils Percent Auto 73.6 % (45.5-73.1); Platelet Count Result 341 k/mm3 (150-375); Red Blood Count 5.02 M/mm3 (4.2-5.4); Red Cell Distribution Width 13.6 % (11.5-14.5); White Blood Count 17.7 K/mm3 (4.5-10.0)
[2024-12-23 13:58] LABS: Add Urine Microscopic? NO; Appearance Urine Clear (Clear); Bilirubin Urine Negative (Negative); Blood Urine Negative (Negative); Color Urine Yellow (Yellow); Glucose Urine UA Negative (Negative); Ketones Urine Trace mg/dL (Negative); Leukocyte Esterase Ur Negative LEU/UL (Negative); Nitrate Urine Negative (Negative); Protein Urine Negative (Negative); Specific Grav Ur 1.028 (1.001-1.035); pH Urine 5.5 (5.0-9.0)
[2024-12-23 14:09] LABS: Alanine Aminotransferase 62 U/L (6-35); Albumin Level 4.3 g/dL (3.5-5.1); Alkaline Phosphatase 104 U/L (38-126); Anion Gap 9 mmol/L (4-12); Aspartate Amino Transferase 34 U/L (14-36); Bilirubin,Total 0.5 mg/dL (0.2-1.3); Blood Urea Nitrogen 10 mg/dL (7-17); Calcium 9.3 mg/dL (8.4-10.2); Carbon Dioxide 25 mmol/L (22-30); Chloride 104 mmol/L (98-107); Estimated CRCL calculation 93 ml/min; Estimated Glomerular Filt Rate > 60; Glucose 112 mg/dL (65-110); Lipase 85 U/L (23-300); Potassium 4.2 mmol/L (3.4-5.0); Sodium 138 mmol/L (137-145)
[2024-12-23] MEDS: ONDANSETRON INJ 4 MG/2 ML VIAL IV PUSH (16:09)
[2024-12-23] MEDS: SODIUM CHLORIDE 0.9% IV 1,000 ML 150 ML IV CONT (16:09)
[2024-12-23] MEDS: MORPHINE SULFATE (*CRX) 4 MG/ML INJ IV PUSH (16:10)
[2024-12-23 16:11] VITALS: BP 136/91; PULSE 84; RESP 14; O2SAT 98
--- NOTE | 2024-12-23 16:53 | ED.ABDPAIN ---
HPI - Abdominal Pain General Chief Complaint: Abdominal Pain Stated Complaint: abdominal pain Time Seen by Provider: 12/23/24 13:36 Source: patient Mode of arrival: ambulatory Limitations: no limitations History of Present Illness HPI narrative: 44-year-old with a history of for hypertension, kidney stones here with a complaint of left-sided abdominal pain which started this morning associated with mild nausea and vomiting. She states that she had lithotripsy in November and she has not seen passing any stones up her pain is quite insistent since this morning. He denies any fever or chills. Related Data Home Medications ?Medication ?Instructions ?Recorded ?Confirmed ?Last Taken ?Type dicyclomine 20 mg tablet 20 mg PO TID PRN helps stomach 02/14/24 12/10/24 03/07/24 07:30 History eluxadoline 100 mg tablet (Viberzi) 100 mg PO BID 02/14/24 12/10/24 10/14/24 History fluticasone 250 mcg-salmeterol 50 1 ea inhalation BID 02/14/24 12/10/24 10/14/24 History mcg/dose blistr powdr for inhalation lisinopril 10 mg tablet 10 mg PO DAILY 02/14/24 12/10/24 10/14/24 History metformin 500 mg tablet,extended 500 mg PO BID 02/14/24 12/10/24 10/14/24 History release 24 hr buspirone 15 mg tablet 15 mg PO TID 09/26/24 12/12/24 12/12/24 History Allergies Allergy/AdvReac Type Severity Reaction Status Date / Time No Known Allergies Allergy Verified 12/23/24 13:41 Review of Systems Review of Systems: All systems reviewed & are unremarkable except as noted in HPI and below Constitutional: Constitutional: Reports no additional constitutional complaints Eyes: Eyes: Reports no additional eye complaints ENT: Reports system reviewed and no additional complaints, except as documented Cardiovascular: Cardiovascular: Reports no additional cardiovascular complaints Respiratory: Respiratory: Reports no additional respiratory complaints Gastrointestinal: Gastrointestinal: Reports as per HPI Musculoskeletal: Musculoskeletal: Reports no additional musculoskeletal complaints [facility] Past Medical History Medical History Leukocytosis Chronic elevation with hematology consult in past. 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 Surgical History Surgical History History of appendectomy History of cholecystectomy History of cervical spinal surgery (03/08/23) anterior cervical discectomy and fusion Family History Family History Father Hypertension Patient's father is in good health Cerebrovascular accident Family history of heart disease in male family member before age 55 Mother Patient's mother is in good health Family history of diabetes mellitus in first degree relative Sibling Family history of diabetes mellitus in first degree relative Social History Social History Social History: Surrogate medical decision maker: Chinmay Muñoz, spouse ([phone]). Code status: Full code. Smoking packs per day: 1 Smoking cigarettes per day: 20.0 Years smoked: 30 Smoking pack-years: 30.00 Smoking status: Current every day smoker Tobacco type: cigarettes Second hand tobacco smoke exposure: Yes Alcohol intake: never Alcohol use details: rarely drinks, a couple time a month Substance use: current Substance use type: marijuana Other substance usage details: hs for insomnia Last use: Marijuana 10/14/24 Do You Feel Safe in your Home?: Yes Lack of Transportation: No Lack of Food: Never True Current Housing: I Have Housing Concerned About Future Housing: No Difficulty Paying Gas/Electric Bills: No Difficulty Paying for Meds: No Currently Unemployed: No Education: Grade School Difficulty w/ Childcare or Family Care: No Living arrangements: with family Additional living arrangements comments: Lives with father and . 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 Spiritual care concerns: No Agree to blood products: Yes Exam Narrative: GENERAL: Well-appearing, well-nourished, and in no acute distress. HEAD: Normocephalic, atraumatic. EYES: PERRLA and EOMI. ENT: Nares clear, no rhinorrhea or epistaxis. Mucous membranes moist. NECK: Supple. CHEST: Clear to auscultation. No respiratory distress. HEART: Regular rate and rhythm. No murmur heard. Normal peripheral pulses. ABDOMEN: Soft, mild tenderness on the left lower abd nondistended, normal active bowel sounds. EXTREMITIES: Normal range of motion. No edema. SKIN: Warm, dry, no rash. NEURO: No focal deficits. Alert and oriented x3. PSYCH: Normal mood and affect. Course Course Emergency Course: Pain has improved after IV morphine. I did inform her about the lab work, CT findings. Cause of her pain is I am not or could be just a colic pain. Vital Signs Vital signs: Vital Signs Temperature 36.6 C 12/23/24 11:26 Pulse Rate 89 12/23/24 11:26 Respiratory Rate 18 12/23/24 11:26 Blood Pressure 129/91 H 12/23/24 11:26 Pulse Oximetry 100 12/23/24 11:26 Oxygen Delivery Room Air 12/23/24 11:26 Temperature 36.5 C 12/23/24 13:32 Pulse Rate 84 12/23/24 16:11 Respiratory Rate 14 12/23/24 16:11 Blood Pressure 136/91 H 12/23/24 16:11 Pulse Oximetry 98 12/23/24 16:11 Oxygen Delivery Room Air 12/23/24 13:32 MDM - Abdominal Pain Lab Data 12/23/24 13:47 12/23/24 13:47 Labs: Lab Results 12/23/24 12/23/24 Range/Units 13:47 13:50 WBC 17.7 H (4.5-10.0) K/mm3 RBC 5.02 (4.2-5.4) M/mm3 Hgb 15.4 H (12.0-15.0) g/dL Hct 46.3 (37.0-47.0) % MCV 92.2 (80-100) fl MCH 30.7 (26-34) pg MCHC 33.3 (32-36) g/dl RDW 13.6 (11.5-14.5) % Plt Count 341 (150-375) k/mm3 MPV 9.3 (7.4-10.4) fl Immature Gran % (Auto) 0.6 H (0-0.5) % Neut % (Auto) 73.6 H (45.5-73.1) % Lymph % (Auto) 19.3 (18.3-44.2) % Sibley % (Auto) 5.0 (2.6-8.5) % Eos % (Auto) 1.0 (0-4.4) % Baso % (Auto) 0.5 (0.2-1.2) % Lymph # (Auto) 3.41 H (0.9-3.2) K/mm3 Sibley # (Auto) 0.9 H (0.1-0.6) K/mm3 Eos # (Auto) 0.2 (0-0.3) K/mm3 Baso # (Auto) 0.1 (0.0-0.1) K/mm3 Abs Immat Gran (auto) 0.10 H (0.00-0.031) K/mm3 Absolute Neuts (auto) 13.0 H (1.3-6.7) K/mm3 Absolute Nucleated RBC 0.000 (0.0-0.012) K/mm3 Nucleated RBC % 0.0 (0.0-0.2) % Sodium 138 (137-145) mmol/L Potassium 4.2 (3.4-5.0) mmol/L Chloride 104 (98-107) mmol/L Carbon Dioxide 25 (22-30) mmol/L Anion Gap 9 (4-12) mmol/L BUN 10 (7-17) mg/dL Creatinine 0.61 L (0.7-1.0) mg/dL Estim Creat Clear Calc 93 ml/min Estimated GFR > 60 (59 - ) Glucose 112 H (65-110) mg/dL Calcium 9.3 (8.4-10.2) mg/dL Total Bilirubin 0.5 (0.2-1.3) mg/dL AST 34 (14-36) U/L ALT 62 H (6-35) U/L Alkaline Phosphatase 104 (38-126) U/L Total Protein 8.0 (6.3-8.2) g/dL Albumin 4.3 (3.5-5.1) g/dL Lipase 85 (23-300) U/L Urine Color Yellow (Yellow) Urine Appearance Clear (Clear) Urine pH 5.5 (5.0-9.0) Ur Specific Bandy 1.028 (1.001-1.035) Urine Protein Negative (Negative) mg/dL Urine Glucose (UA) Negative (Negative) mg/dL Urine Ketones Trace H (Negative) mg/dL Ur Blood (Man) Negative (Negative) Urine Nitrate Negative (Negative) Urine Bilirubin Negative (Negative) Urine Urobilinogen 1.0 (<2.0) mg/dL Leukocyte Esterase Rfl Negative (Negative) JOY/UL POC Urine HCG, Qual Negative (Negative) Imaging Data Radiologist's impression: ITS Impressions Abdomen/Pelvis CT 12/23/24 16:06 IMPRESSION: 1. Nonobstructing bilateral kidney stones. Discharge Plan Discharge Clinical Impression: Abdominal pain Qualifiers: Abdominal location: lower abdomen, unspecified Qualified Code(s): R10.30 - Lower abdominal pain, unspecified Patient Disposition: Home, Self-Care Condition: Stable Instructions: Abdominal Pain (ED) Patient Language: Spanish Prescriptions: New hydrocodone-acetaminophen 5-325 mg tablet 1 tablet PO Q8H PRN (Reason: pain) Qty: 7 0RF No Action fluticasone propion-salmeterol 250-50 mcg/dose blister with device 1 ea INHALATION BID dicyclomine 20 mg tablet 20 mg PO TID PRN (Reason: helps stomach) lisinopril 10 mg tablet 10 mg PO DAILY metformin 500 mg tablet extended release 24 hr 500 mg PO BID Patient Comments: Takes for PCOS Viberzi 100 mg tablet 100 mg PO BID buspirone 15 mg tablet 15 mg PO TID hydrocodone-acetaminophen 5-325 mg tablet 1 - 2 tablet PO Q6H PRN (Reason: pain) Qty: 20 0RF Follow-up/Referrals: Judson,Cody Juan [Other] Time of Disposition: 17:08
== END 2024-12-23 17:20 | disposition home or self-care (01) ==
PROVIDERS: Emergency Provider Family Medicine
DX: R10.32 Left lower quadrant pain (principal); I10 Essential (primary) hypertension; E78.5 Hyperlipidemia, unspecified; E28.2 Polycystic ovarian syndrome; J45.909 Unspecified asthma, uncomplicated; K58.0 Irritable bowel syndrome with diarrhea; F17.210 Nicotine dependence, cigarettes, uncomplicated; Z87.442 Personal history of urinary calculi; Z90.49 Acquired absence of other specified parts of digestive tract; Z79.899 Other long term (current) drug therapy; N20.0 Calculus of kidney
CPT/HCPCS: 36415; 74176; 80053; 81003; 81025; 83690; 85025; 96361; 96374; 96375; 99284; J2270; J2405; J7030

== ENCOUNTER 2025-01-17 11:45 | Emergency (ER) | payer BC, SELFPAY ==
[2025-01-17 11:55] VITALS: BP 102/69; PULSE 93; RESP 16; TEMP 36.8; O2SAT 98
[2025-01-17 13:57] LABS: BEDSIDEPREGUCG Negative (Negative)
[2025-01-17 14:25] LABS: Alanine Aminotransferase 46 U/L (6-35); Alkaline Phosphatase 100 U/L (38-126); Anion Gap 12 mmol/L (4-12); Aspartate Amino Transferase 32 U/L (14-36); Bilirubin,Total 0.6 mg/dL (0.2-1.3); Blood Urea Nitrogen 10 mg/dL (7-17); Calcium 9.9 mg/dL (8.4-10.2); Carbon Dioxide 28 mmol/L (22-30); Chloride 98 mmol/L (98-107); Estimated CRCL calculation 93 ml/min; Estimated Glomerular Filt Rate > 60; Glucose 141 mg/dL (65-110); Lipase 175 U/L (23-300); Potassium 4.3 mmol/L (3.4-5.0); Sodium 138 mmol/L (137-145)
--- NOTE | 2025-01-17 14:44 | ED.ABDPAIN ---
HPI - Abdominal Pain General Chief Complaint: Abdominal Pain Stated Complaint: right abd pain Time Seen by Provider: 01/17/25 14:05 Source: patient Mode of arrival: ambulatory Limitations: no limitations History of Present Illness HPI narrative: This is a 44-year-old female that presents to the emergency department for right upper quadrant abdominal pain. Ongoing since last night. Associated with nausea and vomiting. Denies fevers, dysuria, hematuria. Related Data Home Medications ?Medication ?Instructions ?Recorded ?Confirmed ?Last Taken ?Type dicyclomine 20 mg tablet 20 mg PO TID PRN helps stomach 02/14/24 12/10/24 03/07/24 07:30 History eluxadoline 100 mg tablet (Viberzi) 100 mg PO BID 02/14/24 12/10/24 10/14/24 History fluticasone 250 mcg-salmeterol 50 1 ea inhalation BID 02/14/24 12/10/24 10/14/24 History mcg/dose blistr powdr for inhalation lisinopril 10 mg tablet 10 mg PO DAILY 02/14/24 12/10/24 10/14/24 History metformin 500 mg tablet,extended 500 mg PO BID 02/14/24 12/10/24 10/14/24 History release 24 hr buspirone 15 mg tablet 15 mg PO TID 09/26/24 12/12/24 12/12/24 History Allergies Allergy/AdvReac Type Severity Reaction Status Date / Time No Known Allergies Allergy Verified 01/17/25 13:57 Review of Systems Review of Systems: CONSTITUTIONAL: Denies fever GASTROINTESTINAL: Reports abdominal pain, nausea, vomiting GENITOURINARY: Denies dysuria or hematuria. All systems reviewed & are unremarkable except as noted in HPI and below PMFSH Past Medical History Medical History Leukocytosis Chronic elevation with hematology consult in past. 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 Surgical History Surgical History History of appendectomy History of cholecystectomy History of cervical spinal surgery (03/08/23) anterior cervical discectomy and fusion Family History Family History Father Hypertension Patient's father is in good health Cerebrovascular accident Family history of heart disease in male family member before age 55 Mother Patient's mother is in good health Family history of diabetes mellitus in first degree relative Sibling Family history of diabetes mellitus in first degree relative Social History Social History Social History: Surrogate medical decision maker: Chinmay Muñoz, spouse ([phone]). Code status: Full code. Smoking packs per day: 1 Smoking cigarettes per day: 20.0 Years smoked: 30 Smoking pack-years: 30.00 Smoking status: Current every day smoker Tobacco type: cigarettes Second hand tobacco smoke exposure: Yes Alcohol intake: never Alcohol use details: rarely drinks, a couple time a month Substance use: current Substance use type: marijuana Other substance usage details: hs for insomnia Last use: Marijuana 10/14/24 Do You Feel Safe in your Home?: Yes Lack of Transportation: No Lack of Food: Never True Current Housing: I Have Housing Concerned About Future Housing: No Difficulty Paying Gas/Electric Bills: No Difficulty Paying for Meds: No Currently Unemployed: No Education: Grade School Difficulty w/ Childcare or Family Care: No Living arrangements: with family Additional living arrangements comments: Lives with father and . 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 Spiritual care concerns: No Agree to blood products: Yes Exam Narrative: GENERAL: Well-appearing, well-nourished, and in no acute distress. HEAD: Normocephalic, atraumatic. EYES: EOMI. CHEST: Clear to auscultation. No respiratory distress. No wheezes rales or rhonchi HEART: Regular rate and rhythm. No murmur heard. Normal peripheral pulses. ABDOMEN: Soft, nondistended, normal active bowel sounds. Tender to palpation in the right upper quadrant, without guarding EXTREMITIES: Normal range of motion. No edema. SKIN: Warm, dry, no rash. NEURO: No focal deficits. Alert and oriented x3. PSYCH: Normal mood and affect Course Course Emergency Course: patient updated on her workup and agrees with plan of care Vital Signs Vital signs: Vital Signs Temperature 98.2 F 01/17/25 11:55 Pulse Rate 93 01/17/25 11:55 Respiratory Rate 16 01/17/25 11:55 Blood Pressure 102/69 01/17/25 11:55 Pulse Oximetry 98 01/17/25 11:55 Temperature 98.2 F 01/17/25 11:55 Pulse Rate 93 01/17/25 11:55 Respiratory Rate 16 01/17/25 11:55 Blood Pressure 102/69 01/17/25 11:55 Pulse Oximetry 98 01/17/25 11:55 MDM - Abdominal Pain MDM Narrative Medical decision making narrative: Patient presents to the emergency department for right upper quadrant abdominal pain. She is afebrile and nontoxic appearing. Her vitals are stable. CBC with leukocytosis, which appears chronic for patient. Metabolic panel without concerning findings. Lipase is normal. Urine without evidence of infection. CT abdomen pelvis without appendicitis, diverticulitis or intestinal obstruction. Shows minimal fullness of the renal pelvis and ureters bilaterally. Possible stone in the left kidney. Mild hepatomegaly. Slightly enlarged lymph nodes at the head of the pancreas. Left ovarian cyst. Slight thickening of the wall the 2nd part of the duodenum. patient updated on her workup and agrees with plan of care. Will be started on PPI. Instructed to have follow-up with gastroenterology. She was given warnings to return to the ER Differential Diagnosis Differential diagnosis: Likely abdominal pain, calculus of kidney, constipation, diverticulitis, gastroenteritis, pancreatitis and other (duodenitis, IBS) Lab Data Attestation: I reviewed the patient's lab results. 01/17/25 13:53 01/17/25 13:53 Labs: Lab Results 01/17/25 01/17/25 Range/Units 13:53 13:55 WBC 23.0 H (4.5-10.0) K/mm3 RBC 5.44 H (4.2-5.4) M/mm3 Hgb 16.7 H (12.0-15.0) g/dL Hct 50.0 H (37.0-47.0) % MCV 91.9 (80-100) fl MCH 30.7 (26-34) pg MCHC 33.4 (32-36) g/dl RDW 14.6 H (11.5-14.5) % Plt Count 396 H (150-375) k/mm3 MPV 9.6 (7.4-10.4) fl Immature Gran % (Auto) Not Reportable Neut % (Auto) Not Reportable Lymph % (Auto) Not Reportable Foard % (Auto) Not Reportable Eos % (Auto) Not Reportable Baso % (Auto) Not Reportable Lymph # (Auto) Not Reportable Foard # (Auto) Not Reportable Eos # (Auto) Not Reportable Baso # (Auto) Not Reportable Abs Immat Gran (auto) Not Reportable Absolute Neuts (auto) Not Reportable Absolute Nucleated RBC Not Reportable Total Counted 100 Neutrophils % (Manual) 75 H (46-73) % Band Neutrophils % Not Reportable Lymphocytes % (Manual) 22.0 (18-44) % Monocytes % (Manual) 2 L (3-9) % Eosinophils % (Manual) 1 (0-4) % Nucleated RBC % Not Reportable Abs Lymphs (Manual) 5.06 H (1.1-4.5) K/mm3 Abs Monocytes (Manual) 0.46 (0.1-0.90) K/mm3 Absolute Eos (Manual) 0.23 (0.02-0.50) K/mm3 Platelet Estimate Slightly increased (Adequate) Anisocytosis 1+ Schistocytes None seen Sodium 138 (137-145) mmol/L Potassium 4.3 (3.4-5.0) mmol/L Chloride 98 (98-107) mmol/L Carbon Dioxide 28 (22-30) mmol/L Anion Gap 12 (4-12) mmol/L BUN 10 (7-17) mg/dL Creatinine 0.61 L (0.7-1.0) mg/dL Estim Creat Clear Calc 93 ml/min Estimated GFR > 60 (59 - ) Glucose 141 H (65-110) mg/dL Calcium 9.9 (8.4-10.2) mg/dL Total Bilirubin 0.6 (0.2-1.3) mg/dL AST 32 (14-36) U/L ALT 46 H (6-35) U/L Alkaline Phosphatase 100 (38-126) U/L Total Protein 9.0 H (6.3-8.2) g/dL Albumin 5.0 (3.5-5.1) g/dL Lipase 175 (23-300) U/L Urine Color Yellow (Yellow) Urine Appearance Cloudy H (Clear) Urine pH 7.0 (5.0-9.0) Ur Specific Sweet 1.011 (1.001-1.035) Urine Protein Negative (Negative) mg/dL Urine Glucose (UA) Negative (Negative) mg/dL Urine Ketones Negative (Negative) mg/dL Ur Blood (Man) 2+ H (Negative) Urine Nitrate Negative (Negative) Urine Bilirubin Negative (Negative) Urine Urobilinogen 0.2 (<2.0) mg/dL Add Ur Microanalysis Reviewed Leukocyte Esterase Rfl Negative (Negative) JOY/UL Urine RBC 21-50 H (0-2) /hpf Urine WBC 0-5 (0-3) /hpf Ur Squamous Epith Cells Few (Few) /hpf Urine Bacteria None seen /hpf Urine Casts 0-2 POC Urine HCG, Qual Negative (Negative) Imaging Data Radiologist's impression: ITS Impressions Abdomen/Pelvis CT 01/17/25 15:19 IMPRESSION: 1. No evidence of appendicitis, diverticulitis or intestinal obstruction. 2. Minimal fullness of the renal pelvis and ureter bilaterally more on the left side with no definite stones. Density seen in the left kidney lower pole may be contrast excretion or a stone. 3. Mild hepatomegaly with tiny cyst. 4. Slightly enlarged lymph nodes in the area of the lesser sac and around the head of the pancreas. 5. Slightly prominent ovaries with a cyst in the left ovary. 6. Slight thickening of the wall of the second part of the duodenum. Prominent pancreatic duct is also noted. Critical Care Time Critical Care Time Critical Care Time: No Discharge Plan Discharge Clinical Impression: Duodenitis Patient Disposition: Home, Self-Care Condition: Stable Instructions: Duodenitis (ED) Additional Instructions: Return to the ER if you experience fever, worsening abdominal pain with nausea and vomiting, you are unable to keep down liquids or solids, blood in the stool, or any other symptoms that are concerning to you Remain well hydrated. Take Pantoprazole as prescribed Follow up with gastroenterology Patient Language: Colombian Prescriptions: New pantoprazole 40 mg tablet,delayed release (DR/EC) 40 mg PO HS 28 Days Qty: 28 0RF No Action fluticasone propion-salmeterol 250-50 mcg/dose blister with device 1 ea INHALATION BID dicyclomine 20 mg tablet 20 mg PO TID PRN (Reason: helps stomach) lisinopril 10 mg tablet 10 mg PO DAILY metformin 500 mg tablet extended release 24 hr 500 mg PO BID Patient Comments: Takes for PCOS Viberzi 100 mg tablet 100 mg PO BID buspirone 15 mg tablet 15 mg PO TID hydrocodone-acetaminophen 5-325 mg tablet 1 - 2 tablet PO Q6H PRN (Reason: pain) Qty: 20 0RF hydrocodone-acetaminophen 5-325 mg tablet 1 tablet PO Q8H PRN (Reason: pain) Qty: 7 0RF Follow-up/Referrals: PHYSICIAN NOT ON STAFF,NONSTAFF [Primary Care Provider] - Tyshawn Weber MD [Physician] -
[2025-01-17 14:54] LABS: Add Urine Microscopic? YES; Appearance Urine Cloudy (Clear); Bacteria Urine None Seen /hpf; Bilirubin Urine Negative (Negative); Blood Urine 2+ (Negative); Color Urine Yellow (Yellow); Glucose Urine UA Negative (Negative); Ketones Urine Negative (Negative); Leukocyte Esterase Ur Negative LEU/UL (Negative); Need Manual Microscopic Reviewed; Nitrate Urine Negative (Negative); Non Pathogenic Casts 0-2; Protein Urine Negative (Negative); RBC Urine 21-50 /hpf (0-2); Specific Grav Ur 1.011 (1.001-1.035); Squamous Epithelial Cell Urine Few /hpf (Few); Urobilinogen Urine 0.2 mg/dL (<2.0); WBC Urine 0-5 /hpf (0-3)
[2025-01-17 15:02] LABS: Hemoglobin 16.7 g/dL (12.0-15.0); Mean Corpuscular HGB Conc 33.4 g/dl (32-36); Mean Corpuscular Hemoglobin 30.7 pg (26-34); Mean Corpuscular Volume 91.9 fl (80-100); Mean Platelet Volume 9.6 fl (7.4-10.4); Platelet Count Result 396 k/mm3 (150-375); Red Blood Count 5.44 M/mm3 (4.2-5.4); Red Cell Distribution Width 14.6 % (11.5-14.5)
[2025-01-17 15:08] LABS: Eosinophils Absolute Manual 0.23 K/mm3 (0.02-0.50); Eosinophils Percent Manual 1 % (0-4); Lymphocytes Absolute Manual 5.06 K/mm3 (1.1-4.5); Monocytes Absolute Manual 0.46 K/mm3 (0.1-0.90); Monocytes Percent Manual 2 % (3-9); Neutrophils Percent Manual 75 % (46-73); Total Cells Counted 100
[2025-01-17 15:09] LABS: Anisocytosis 1+; Platelet Estimate Slightly Increased (Adequate); Schistocytes None Seen
[2025-01-17] MEDS: MORPHINE SULFATE (*CRX) 4 MG/ML INJ IV PUSH (15:09)
[2025-01-17] MEDS: ONDANSETRON INJ 4 MG/2 ML VIAL IV PUSH (15:15)
[2025-01-17] MEDS: PANTOPRAZOLE SODIUM IV 40 MG VIAL IV PUSH (16:16)
[2025-01-17 17:28] VITALS: BP 135/92; PULSE 89; RESP 18; TEMP 37.2; O2SAT 99
== END 2025-01-17 17:30 | disposition home or self-care (01) ==
PROVIDERS: Emergency Medicine; Emergency Provider Physician Assistant
DX: K29.80 Duodenitis without bleeding (principal); I10 Essential (primary) hypertension; J45.909 Unspecified asthma, uncomplicated; E78.5 Hyperlipidemia, unspecified; E28.2 Polycystic ovarian syndrome; K58.0 Irritable bowel syndrome with diarrhea; F17.210 Nicotine dependence, cigarettes, uncomplicated; Z98.1 Arthrodesis status; Z87.442 Personal history of urinary calculi; Z90.49 Acquired absence of other specified parts of digestive tract; Z79.899 Other long term (current) drug therapy; Z79.84 Long term (current) use of oral hypoglycemic drugs; R16.0 Hepatomegaly, not elsewhere classified; K76.89 Other specified diseases of liver
CPT/HCPCS: 36415; 74177; 80053; 81001; 81025; 83690; 85025; 96374; 96375; 99284; J2270; J2405; J2470; Q9967

== ENCOUNTER 2025-02-05 00:46 | Day surgery (SDC) | payer BC, SELFPAY ==
[2025-01-26 08:45] VITALS: BMI 29.5
--- NOTE | 2025-01-26 09:15 | PC.NURSE ---
Report to the Outpatient Waiting Room, entrance under the green pavilion located off [facility], at time _0715_ on date _02/05/25 . Planned Procedure Time: ___914 .? Time changes happen often and if your time is changed the preop area will call you the afternoon before. - You and your visitor will be asked to self-screen and do not enter if you have any COVID symptoms. Please call surgeon if you need to reschedule. - A mask is optional within the hospital at this time. Patients may have clear liquids (water, carbonated beverages, clear teas, apple juice) until 3 hours prior to surgery with a maximum of 20 ounces. - No food from midnight until time of surgery and no smoking, or chewing tobacco (or any form of nicotine). No chewing gum, candy or mints. - Take only the following medications with a SIP of water on the morning of surgery: __BUSPIRONE, PAIN PILL IF NEEDED DO NOT STOP ANY OF YOUR OTHER PRESCRIPTION MEDICATIONS PRIOR TO SURGERY EXCEPT THE FOLLOWING Hold all vitamins and supplements for 3 days per anesthesiologist. Medications to discontinue per physician N/A Date to take last dose____N/A Please no make-up, nail setswana, hairspray, perfume, deodorant, or body powder the day of surgery.? No jewelry (including any body piercings) or valuables the day of surgery, leave them at home.? Please take a shower or bath the night before, or the morning of, surgery with an antibacterial soap.? Wear comfortable, loose fitting clothing.? - Jewelry must be removed prior to entering the operating room.? Rings and piercings that are not removed may be cut off. - The hospital will not accept responsibility for valuables.? - Please leave all valuables, including medications, at home the day of surgery. If you are going home after surgery, a licensed service car driver must drive you home.? - NO public transportation without another adult if you receive anesthesia. - We recommend that an adult stay with you for 24 hours following discharge. - We also recommend that you do not drive, make important decision, drink alcoholic beverages, or take any drugs that were not prescribed by your health care provider for at least 24 hours after your discharge time. Follow any additional instructions given to you from your surgeon. Telephone instructions given to __MELISSA and asked if any additional questions and then verbalized understanding. Patient advised to call surgeon office or pre surgery nurse liaison [phone] if any additional questions.
[2025-02-05] VITALS (8 sets, daily range): BP systolic 112–137; BP diastolic 71–92; PULSE 75–82; RESP 14–20; TEMP 36.3–36.7; O2SAT 95–100
--- NOTE | ~2025-02-05 | XR_ITS ---
XR retrograde pyelo w/stent LT Ordering provider: Sher Mattson MD History: . LEFT SIDE STONES . Comparison: None. FINDINGS/impression: Left retrograde pyelography with stent placement. Fluoroscopy time is 22.6 seconds. Radiation dose is 0.53585 mGym2 or 8.83mGy. Reviewed, dictated and finalized at location A.
--- OUTSIDE RECORDS SUMMARY | 2025-02-05 00:53 | XMS_ITS | Clinical Summary ---
Author Organization [facility] Address [address] [place] [address] Care Team Providers Care Tobacco Prizer Name Role Phone Roper Dino SalgadoEmil Primary Care Provider [phone] Source Comments [facility],non-owned Affiliates and Associated Physician Practices is amultiple site organization consisting of ambulatory clinics and hospital sitesin [place], [place], [place] and [place]. This disclosure is being madepursuant to the Care Everywhere program and may not contain all information available regarding this patient. Last updated 18.[facility] Allergies No known active allergies Medications * [...] 96 03/07/2023 1:49 PM CDT Temperature 36.6 C (97.8 F) 03/07/2023 1:49 PM CDT Respiratory Rate 13 03/04/2021 1:46 PM CDT Oxygen Saturation 98% 03/07/2023 1:49 PM CDT Inhaled Oxygen Concentration - - Weight 82.4 kg (181 lb 9.6 oz) 03/07/2023 1:49 P M CDT Height 157.5 cm (5' 2 ) 03/07/2023 1:49 PM CDT Body Mass Index 33.22 03/07/2023 1:49 PM CDT Plan of Treatment Health Maintenance Due Date Last Done Comments KYRA (AGES 45-75) - COL ON CA SCREENING 1979 [...] 1998 SCREENING FOR DIABETES 03/07/2023 COVID-19 VACCINE ( - 2023-2 5 season) 2024 INFLUENZA VACCINE (#1) 2024 DEPRESSION SCREENING 11/19/2024 ZOSTER VACCINE (1 of 2) 2029 HIB VACCINE Aged Out No longer eligi ble based on patient's age to complete this topic HPV VACCINE Aged Out No longer eligi ble based on patient's age to complete this topic MENINGOCOCCAL (Group B) VACC INE SHARED DECISION-MAKING Aged Out No longer eligibl e based on patient's age to complete this topic MENINGOCOCCAL GROUPS A/C/Y/W VACCINE Aged Out No longer eligible b ased on patient's age to complete this topic Care Teams Tobacco Prizer Relationship Specialty Start Date End Date Dino Roper DO [address] [place] [address] PCP - General Family Medicine 08/30/20
--- OUTSIDE RECORDS SUMMARY | 2025-02-05 00:53 | XMS_ITS | Encounter Summary ---
Author Organization [facility] Healthcare Address [address] [place] [address] Care Team Providers Care Fire Safety Manager Name Role Phone Cody Roper DO Primary Care Provider David Bell MD Unavailable [phone] Encounter Details Date Type Department Care Team (Late st Contact Info) Description 01/12/2023 Telephone [facility] [address] [place] [address] [place] [id number] [address] Social History Tobacco Use Types Packs/Day Years [...] on filedocumented in this encounter Care Teams Fire Safety Manager Relationship Specialty Start Date End Date Cody Roper DO [address] [place] [address] PCP - General Family Medicine 07/02/19 David Bell MD [address] [place] [address] Medical Oncologist/Movement Assembly Final Inspector Hematology and Oncology 06/11/20 documented as of this encounter
--- OUTSIDE RECORDS SUMMARY | 2025-02-05 00:53 | XMS_ITS | Continuity of Care Document ---
Author Organization [employer] Address [address] [place] [address] Phone Care Team Providers Care Assistant Store Manager Sales Name Role Phone Cody Roper DO Unavailable Unavailable Allergies, Adverse Reactions, Alerts Substance Reaction Status Criticality No Known Allergies Active No Inform ation Medications Medication Instructions Dosage Effective Dates (start - stop) Status Comments oxycodone-acetamin ophen 5 mg-325 mg tablet take 1 tablet [...] in each nostril as needed - Active oxycodone-acetamin ophen 5 mg-325 mg tablet take 1 tablet by oral route every 6 hours as needed 1.00 tablet - No Longer Active Procedures Procedure Date CBC, INC PLATELETS AND DIFFERENTIAL COMPREHEN METABOLIC PANEL CMP HEMOGLOBIN A1C HGA1C, GLYCO MICROALBUMIN, QN (URINE) CREATININE, (U-R) ROUTINE VENIPUNCTURE OFFICE ZWPFC-DJU-IXNMZUMY BODY MASS INDEX DOCD SYST BP GE 130 - 139MM HG DIAST BP 80-89 MM HG GENERAL HEALTH PANEL LIPID PANEL ROUTINE VENIPUNCTURE OFFICE RRINN-WDK-WTODRSKA BODY MASS INDEX DOCD SYST BP LT 130 MM HG DIAST BP < 80 MM HG VITAMIN D, 25-HYDROXY OFFICE ANEBP-VUK-BMWWESNP BODY MASS INDEX DOCD SYST BP LT 130 MM HG DIAST BP 80-89 MM HG ANTINUCLEAR ANTIBODIES (JAYCE) BASIC METABOLIC PANEL(BMP) C-REACTIVE PROTEIN (CRP) HEMATOCRIT (HCT) HEMOGLOBIN (HGB) HEMOGLOBIN A1C HGA1C, GLYCO RHEUMATOID FACTOR: QN RBC SED RATE, AUTOMATED URIC ACID, (S) URINALYSIS, DIPSTICK (UA) - Office Lab D ROUTINE VENIPUNCTURE OFFICE AFFJQ-JCM-YWTEWGMT BODY MASS INDEX DOCD SYST BP LT 130 MM HG DIAST BP 80-89 MM HG BASIC METABOLIC PANEL(BMP) HEMATOCRIT (HCT) HEMOGLOBIN (HGB) HEMOGLOBIN A1C HGA1C, GLYCO LIPID PANEL VITAMIN D, 25-HYDROXY ROUTINE VENIPUNCTURE Pt inelig neg scrn depres OFFICE EGAAR-NWW-HIKDIHUX BODY MASS INDEX DOCD SYST BP GE 130 - 139MM HG DIAST BP 80-89 MM HG EKG (ELECTROCARDIOGRAM) OFFICE EHYIY-OIG-RFOQJMHP BODY MASS INDEX DOCD SYST BP GE [...] - Office Lab J ROUTINE VENIPUNCTURE OFFICE FTGMO-JOI-SANNCMWL BODY MASS INDEX DOCD SYST BP GE 130 - 139MM HG DIAST BP 80-89 MM HG OFFICE SHEYT-XKG-XPUVHGLB BODY MASS INDEX DOCD SYST BP LT 130 MM HG DIAST BP < 80 MM HG DSCHRG MED/CURRENT MED MERGE OFFICE FMMOR-XLC-STTOKVCW SYST BP LT 130 MM HG DIAST BP 80-89 MM HG CBC, INC PLATELETS AND DIFFERENTIAL COMPREHEN METABOLIC PANEL CMP HEMOGLOBIN A1C HGA1C, GLYCO LIPID PANEL VITAMIN D, 25-HYDROXY URINALYSIS, DIPSTICK (UA) - Office Lab S ROUTINE VENIPUNCTURE OFFICE NKJEF-DGV-KYFJLRJP BODY MASS INDEX DOCD SYST BP LT 130 MM HG DIAST BP 80-89 MM HG URINALYSIS W MICROSCOPIC (UA) URINALYSIS, DIPSTICK (UA) - Office Lab S Brief Emotional/Behavioral A ssessment, With Scoring/Doct, Per Stndrd Instrument Pt inelig neg scrn depres BASIC METABOLIC PANEL(BMP) HEMATOCRIT (HCT) HEMOGLOBIN (HGB) ROUTINE VENIPUNCTURE HEMOGLOBIN A1C HGA1C, GLYCO MICROALBUMIN, QN (URINE) CREATININE, (U-R) OFFICE OUTIL-DPC-HYOFOAWP BODY MASS INDEX DOCD SYST BP GE 130 - 139MM HG DIAST BP 80-89 MM HG CBC, INC PLATELETS AND DIFFERENTIAL COMPREHEN METABOLIC PANEL CMP 2 HEMOGLOBIN A1C HGA1C, GLYCO LIPID PANEL VITAMIN D, 25-HYDROXY MICROALBUMIN, SEMIQN(RGT STRIP) - OL Jan ROUTINE VENIPUNCTURE OFFICE UVEJV-QCF-IYLXMQWN BODY MASS INDEX DOCD SYST BP LT 130 MM HG DIAST BP 80-89 MM HG EKG (ELECTROCARDIOGRAM) OFFICE PZKOR-RIK-OOPXYVTL BODY MASS INDEX DOCD SYST BP LT 130 MM HG DIAST BP 80-89 MM HG OFFICE DEWAY-MQZ-XWRTQGRG BODY MASS INDEX DOCD SYST BP LT 130 MM HG DIAST BP 80-89 MM HG KENALOG 10 MG INJ; MULTIPLE TRIGGER PTS, 1 OR 2 MUSCLE GROUPS OFFICE APIVM-BPA-DKANIOOF BODY MASS INDEX DOCD SYST BP LT 130 MM HG DIAST BP 80-89 MM HG OFFICE JVQFZ-KXX-LXMJBLWK BODY MASS INDEX DOCD SYST BP GE 130 - 139MM HG DIAST BP 80-89 MM HG CBC, INC PLATELETS AND DIFFERENTIAL COMPREHEN METABOLIC PANEL CMP 1 HEMOGLOBIN A1C HGA1C, GLYCO LIPID PANEL ROUTINE VENIPUNCTURE Pt inelig neg scrn depres OFFICE KEJUK-RAG-GMQHMYDH BODY MASS INDEX DOCD SYST BP LT 130 MM HG DIAST BP 80-89 MM HG CBC, INC PLATELETS AND DIFFERENTIAL COMPREHEN METABOLIC PANEL CMP 1 HEMOGLOBIN A1C HGA1C, GLYCO ROUTINE VENIPUNCTURE OFFICE LVSXX-ZAI-ECSEXKOP BODY MASS INDEX DOCD SYST BP >= 140 MM HG6 IT DIAST BP 80-89 MM HG CBC, INC PLATELETS AND DIFFERENTIAL COMPREHEN METABOLIC PANEL CMP 1 HEMOGLOBIN A1C HGA1C, GLYCO ROUTINE VENIPUNCTURE OFFICE MLQAP-TYM-DWKHCKXP BODY MASS INDEX DOCD SYST BP LT 130 MM HG DIAST BP < 80 MM HG DEAMIDATED GLADIN PEPTIDE IGA 0 DEAMIDATED GLADIN PEPTIDE IGG 0 TISSUE TRANSGLUTIMASE IGA TISSUE TRANSGLUTIMASE IGG ROUTINE VENIPUNCTURE BODY MASS INDEX DOCD SYST BP GE 130 - 139MM HG DIAST BP 80-89 MM HG OFFICE FBYYD-MCL-UWNOGRWI OFFICE PJIPH-FSF-DSKIBHLS BODY MASS INDEX DOCD SYST BP LT 130 MM HG DIAST BP < 80 MM HG CBC, INC PLATELETS AND DIFFERENTIAL COMPREHEN METABOLIC PANEL CMP 0 HEMOGLOBIN A1C HGA1C, GLYCO LIPID PANEL ROUTINE VENIPUNCTURE Brief Emotional/Behavioral A ssessment, With Scoring/Doct, Per Stndrd Instrument Pt inelig neg scrn depres Kept Appointment No Charge Encounter Jul OFFICE FOXMN-ADB-VNKFYTYI BODY MASS INDEX DOCD SYST BP LT [...] SCREENING FOR PAP (OBTAINING SPECIMEN) M OFFICE NTRMW-DSX-GQWYUFKT BODY MASS INDEX DOCD SYST BP LT 130 MM HG DIAST BP < 80 MM HG BP OFFICE/OUTPATIENT VISIT EST OFFICE RKXWA-KLV-IWSCKIVB BODY MASS INDEX DOCD SYST BP LT 130 MM HG DIAST BP 80-89 MM HG CBC, INC PLATELETS AND DIFFERENTIAL COMPREHEN METABOLIC PANEL [facility] 9 HEMOGLOBIN A1C HGA1C, GLYCO LIPID PANEL ROUTINE VENIPUNCTURE THERAPEUTIC EXERCISES ULTRASOUND THERAPY THERAPEUTIC EXERCISES ULTRASOUND THERAPY Brief Emotional/Behavioral A ssessment, With Scoring/Doct, Per Stndrd Instrument Clin depression screen doc OFFICE MXSAM-NGT-VOPYOALP BODY MASS INDEX DOCD SYST BP LT 130 MM HG DIAST BP < 80 MM HG THERAPEUTIC EXERCISES ULTRASOUND THERAPY ELECTRICAL STIMULATION THERAPEUTIC EXERCISES ULTRASOUND THERAPY ULTRASOUND THERAPY THERAPEUTIC EXERCISES THERAPEUTIC EXERCISES ULTRASOUND THERAPY OT EVAL (MOD COMPLEXITY) CBC, INC PLATELETS AND DIFFERENTIAL COMPREHEN METABOLIC PANEL [facility] 9 HEMOGLOBIN A1C HGA1C, GLYCO ROUTINE VENIPUNCTURE OFFICE CUZLK-OVF-DZVIBPEZ BODY MASS INDEX DOCD SYST BP GE [...] Diagnoses Date Provider Providers Copied on Encounter [employer], [address], [place], [place], [address] , tel: [phone] Roper No Information 5 Judson Ross. [address] [place] [address], [id number], . tel:[phone] [employer], [address], [place], [place], [address] , tel: [phone] Roper Kidney stone 4 Judson Ross. [address] [place] [address], [id number], . tel:[phone] [employer], [address], [place], [place], [address] , tel: [phone] Roper No Information 4 Judson Ross. [address] [place] [address], [id number], . tel:[phone] [employer], [address], [place], [place], [address] , tel: [phone] Roper No Information 4 Judson Ross. [address] [place] [address], [id number], . tel:[phone] OFFICE HUAZJ-FRM-MY [facility], [address], [place], [place], [address] , tel: [phone] Roper mmp (chief complaint) Encounter for screening [...] D deficiencyHx of cholecystectomy 4 Judson Ross. [address] [place] [address], [id number], . tel:[phone] Referring Provider: Cody Stein, [address] [place] [address], [address] . tel:[phone] [facility], [address], [place], [place], [address] , tel: [phone] [facility] No Information 4 Judson Ross. [address] [place], [place], [address], . tel:[phone] [facility], [address], [place], [place], [address] , tel: [phone] Judson No Information 4 Judson Ross. [address] [place] [address], [place], [place], [address], . tel:[phone] [employer] [facility], [address], [place], [place], [address] , [place] tel: [phone] Judson No Information 4 Judson Ross. [address] [place] [address], [id number], . tel:[phone] OFFICE SOVZD-XUE-BO [facility], [address], [place], [place], [address] , tel: [phone] Judson mmp (chief complaint) Mixed hyperlipidemiaMo derate [...] ea corporisVitamin D deficiency 4 Judson Ross. [address] [place] [address], [id number], . tel:[phone] Referring Provider: Cody Stein, [address] [place] [address], [address] . tel:[phone] OFFICE QWKMK-BWS-NI [facility], [address], [place], [place], [address] , [place] tel: [phone] Judson mmp (chief complaint) Gastroesophageal reflux disease [...] typeArthralgia of multiple joints 3 Judson Ross. [address] [place] [address], [place], [place], [address], . tel:[phone] Referring Provider: Cody Stein, [address] [place] [address], [place], [address] . tel:[phone] OFFICE SJUVR-VPP-BS PANDED [facility], [address], [place], [place], [address] , [place] tel: [phone] [facility] IBS D (chief complaint) Irritable bowel syndrome with diarrhea 3 Menea Velozyazan. [address] [facility] [address], [place], [place], [address], [place]. tel:[phone] Referring Provider: Emil Roper, [address] [facility] [place], [address] . tel:[phone] [facility], [address], [place], [place], [address] , [place] tel: [phone] Judson Other spondylosis with radiculopathy, cervical regionOther spondylosis with radiculopathy, lumbosacral regionSpondylosi s, unspecifiedUnila teral primary osteoarthritis, left knee Sep- 3 Judson Ross. [address] [place], [place], [address], [place]. tel: [phone] [facility], [address], [place], [place], [address] , [place] tel: [phone] Judson No Information 3 Judson Ross. [address] [facility], [place], [place], [address], [place]. tel:[phone] OFFICE UYUUS-HQV-XD TAILED [facility], [address], [place], [place], [address] , [place] tel: [phone] Judson mmp (chief complaint) Essential (primary) hypertensionMixe d hyperlipidemiaGa stroesophageal reflux disease without esophagitisPolyc ystic ovary syndromeAnxietyM oderate persistent asthma without complicationSpon dylosisOsteoarth ritis of spine with radiculopathy, cervical regionUnilateral primary osteoarthritis, left kneeLumbosacral radiculopathy due to degenerative joint disease of spineMetabolic syndromeIrritabl e bowel syndrome with diarrheaObesity (BMI 30.0-34.9)Curren t smokerCarpal tunnel syndrome of right wristInsomnia, unspecified typeControlled substance agreement signedEncounter for screening mammogram for malignant neoplasm of breast 3 Judson Ross. [address] [facility], [place], [place], [address], . tel:[phone] Referring Provider: Cody Stein, [address] [place] [address], [place], [address] . tel:[phone] [facility], [address], [place], [place], [address] , [place] tel:[phone] [facility] (chief complaint) Essential (primary) hypertensionMeta bolic [...] evaluationAbnorm al EKG 3 Judson Ross. [address] [facility], [place], [place], [address], . tel:[phone] Referring Provider: Cody Stein, [address] [place] [address], [place], [address] . tel:[phone] OFFICE [facility]ZGNW[facility]RFU[facility], [address], [place], [place], [address] , [place] tel:[phone] [facility] (chief complaint) Lumbosacral radiculopathy due to degenerative [...] with diarrheaCervical radiculopathy 3 Judson Ross. [address] [place], [place], [address], [place]. tel:[phone] Referring Provider: Cody Stein, [address] [facility], [place], [address] . tel:[phone] OFFICE BBOJX-XWY-DA [employer], [address], [place], [place], [address] , [place] tel:[phone] [facility] Follow up (chief complaint) Irritable bowel syndrome with diarrheaRectal itching 2 Jerrell Gillette. [address] [place], [place], [address], [place]. tel:[phone] Referring Provider: Cody Stein, [address] [facility], [place], [address] . tel:[phone] OFFICE LRPNN-SBO-VK [facility] [employer], [address], [place], [place], [address] , [place] [phone] Judson madsen (chief complaint) Cervical radiculopathyNec k pain, chronicOther chronic pain 2 Jim Camp. [address] [place], [place], [address], [place]. tel:[phone] Referring Provider: Cody Stein, [address] [place], [address] . tel:[phone] OFFICE LPZSF-YBM-WC [facility] [employer], [address], [place], [place], [address] , [place] tel:[phone] Judson madsen (chief complaint) Essential (primary) hypertensionMixe [...] seasonality, unspecified triggerOpioid useCoccyxdyniaVi tamin D deficiency Sep- 2 Judson Ross. [address] [place], [place], [address], . tel:[phone] Referring Provider: Cody Stein, [address] [place] [address], [address] . tel:[phone] [facility], [address], [place], [place], [address] , [phone] Judson UTI symptoms/c oncerns (chief complaint) UTI symptoms Jul- 2 Judson Ross. [address] [place] [address], [id number], . tel:[phone] Referring Provider: Cody Stein, [address] [place] [address], [address] . tel:[phone] OFFICE SYDFN-DHQ-GY [facility], [address], [place], [place], [address] , [phone] Judson mmp (chief complaint) Essential (primary) hypertensionMeta [...] syndrome of right wristOpioid useObesity (BMI 30.0-34.9)Iman t smokerInsomnia, unspecified type 2 Judson Ross. [address] [place] [address], [place], [place], [address], . tel:[phone] Referring Provider: Cody Stein, [address] [place] [address], [place], [address] . tel:[phone] OFFICE LGAGE-YDG-HC [facility], [address], [place], [place], [address] , [place] tel:[phone] Judson mmp (chief complaint) Essential (primary) hypertensionMixe [...] paresthetica of left side 2 Judson Ross. [address] [place] [address], [place], [place], [address], [place]. tel:[phone] Referring Provider: Cody Stein, [address] [place] [address] B, [place], [address] . tel:[phone] OFFICE VNQEM-IDJ-AN [facility], [address], [place], [place], [address] , [place] tel:[phone] Judson Rash (chief complaint) IntertrigoHyperp igmentation 2 Erasmo Cheney. [address] [place] [address], [address], [place], [place], [address], [place]. tel:[phone] Referring Provider: Cody Stein, [address] [place] [address] B, [place], [address] . tel:[phone] OFFICE UBAAV-LNO-WN [facility], [address], [place], [place], [address] , tel:[phone] [facility] IBS (chief complaint) Irritable bowel syndrome with diarrhea 1 Jerrell Gillette. [address] [place], [place], [address], [place]. tel:[phone] Referring Provider: Cody Stein, [address] [place] [address] B, [place], [address] . tel:[phone] OFFICE YVLNL-VBF-SR [facility], [address], [place], [place], [address] , [place] tel:[phone] Judson madsen (chief complaint) Encounter for screening [...] smokerObesity (BMI 30.0-34.9)Opioid use 1 Judson Ross. [address] [place] [address], [id number], [place]. tel:[phone] Referring Provider: Cody Stein, [address] [place] [address], [place], [address] . tel:[phone] OFFICE SZPAR-ZXG-MS [facility], [address], [place], [place], [address] , [place] tel:[phone] [facility] (chief complaint) Essential (primary) hypertensionMixe d hyperlipidemiaGa stroesophageal reflux disease without esophagitisModer ate persistent asthma without complicationIrri table bowel syndrome with diarrheaInsomnia , unspecified typeLumbosacral radiculopathy due to degenerative joint disease of spineSpondylosis Osteoarthritis of spine with radiculopathy, cervical regionUnilateral primary osteoarthritis, left kneePolycystic ovary syndromeMetaboli c syndromeObesity (BMI 30.0-34.9)Curren t smokerUrinary incontinence, unspecified typeEncntr screen mammogram for malignant neoplasm of breastOpioid useNon-seasonal allergic rhinitis due to pollenAnxiety 1 Judson Ross. [address] [place] [address], [id number], . [phone] Referring Provider: Cody Stein, [address] [place] [address], [address] . tel:[phone] [facility], [address], [place], [place], [address] , tel: [phone] Judson No Information 1 Judson Ross. [address] [place], [place], [address], . tel:[phone] [email or web address], [address], [place], [place], [address] , tel:[phone] [facility] Urinary incontinence, unspecified type 1 Judson Ross. [address] [place], [place], [address], . tel:[phone] OFFICE GECHQ-YQB-UN [facility], [address], [place], [place], [address] , tel: [phone] Judson MMP (chief complaint) Essential (primary) hypertensionMixe [...] of left foot 1 Judson Ross. [address] [place], [place], [address], [place]. tel:[phone] Referring Provider: Cody Stein, [address] [place] [address], [address] . tel:[phone] OFFICE USRYW-ZNQ-TC [facility], [address], [place], [place], [address] , [place] tel: [phone] Judson mmp (chief complaint) Essential (primary) hypertensionMixe [...] syndrome of right wrist 1 Judson Ross. [address] [place], [place], [address], [place]. tel:[phone] Referring Provider: Cody Stein, [address] [place] [address], [place], [address] . tel:[phone] OFFICE JWLXS-KGN-TD [facility], [address], [place], [place], [address] , [place] tel: [phone] [facility] Diarrhea (chief complaint) Irritable bowel syndrome with diarrhea 0 Jerrell Gillette. [address] [place], [place], [address], [place]. tel:[phone] Referring Provider: Cody Stein, [address] [place] [address], [place], [address] . tel:[phone] OFFICE SDOCW[facility]VSX[facility], [address], [place], [place], [address] , [place] tel: [phone] [facility] Diarrhea (chief complaint) Irritable bowel syndrome with diarrhea 0 Jerrell Leta. [address] [place], [place], [address], [place]. tel:[phone] Referring Provider: Cody Stein, [address] [place] [address] [place], [address] . tel:[phone] OFFICE YVRXP-PJH-XK [facility], [address], [place], [place], [address] , [place] tel: [phone] Judson mmp (chief complaint) Unilateral primary osteoarthritis, [...] (BMI 30.0-34.9)Gangli on cyst 0 Judson Ross. [address] [place] [address], [id number], [place]. tel:[phone] Referring Provider: Cody Stein, [address] [facility] [place], [address] . tel:[phone] [employer] [facility], [address], [place], [place], [address] , [place] tel:[phone] Judson weight check (chief complaint) No Information 0 Judson Ross. [address] [place], [place], [address], . tel:[phone] Referring Provider: Cody Stein, [address] [place] [address] [place], [address] . tel:[phone] OFFICE JEXKT-ACO-VN TAILED [facility], [address], [place], [address] , tel:[phone] Judson mmp (chief complaint) Unilateral primary osteoarthritis, [...] ovary syndromeObesity (BMI 30.0-34.9) 0 Judson Ross. [address] [place] [address] [place], [address], [place]. tel:[phone] Referring Provider: Cody Stein, [address] [place] [address] B, [place], [address] . tel:[phone] PREVENTATIVE -EST: 40-64 [facility], [address], [place], [place], [address] , tel:[phone] Judson mmp (chief complaint) Unilateral primary osteoarthritis, [...] lossPolycystic ovary syndromePhysical exam 0 Judson Ross. [address] [place] [address] B, [place], [place], [address], [place]. tel:[phone] Referring Provider: Cody Stein, [address] [facility], [place], [address] . tel:[phone] [facility]ICE [facility], [address], [place], [place], [address] , tel:[phone] Judson WWE/PAP (chief complaint) Cervical cancer screeningPCOS (polycystic ovarian syndrome)Hirsuti smSexual dysfunction 0 Jim Camp. [address] [place], [place], [address], [place]. tel:[phone] Referring Provider: Cody Stein, [address] [place] [address], [place], [address] . tel:[phone] BP OFFICE/OUTPA TIENT VISIT [facility], [address], [place], [address] , tel:[phone] Judson Essential (primary) hypertension 0 Judson Ross. [address] [place] [address], [address], [place]. tel:[phone] Referring Provider: Cody Stein, [address] [place] [address], [place], [address] . tel:[phone] OFFICE [facility], [address], [place], [address] , [place] tel:[phone] Judson MMP (chief complaint) Unilateral primary osteoarthritis, [...] persistent asthma without complication 9 Judson Ross. [address] [place], [place], [address], [place]. tel:[phone] Referring Provider: Cody Stein, [address] [facility], [place], [address] . tel:[phone] [facility], [address], [place], [place], [address] , tel: [phone] Judson Unilateral primary osteoarthritis, left knee Sep-3 0-201 9 Judson Ross. [address] [facility], [place], [place], [address], . tel:[phone] Referring Provider: Cody Stein, [address] [facility], [place], [address] . tel:[phone] [facility] [address], [place], [place], [address] , tel: [phone] Judson No Information Sep-2 3-201 9 Judson Ross. [address] [place], [place], [address], . tel:[phone] Referring Provider: Cdoy Stein, [address] [facility], [place], [address] . tel:[phone] OFFICE SUVBO-YFA-HS PANDED [facility], [address], [place], [place], [address] , tel: [phone] Judson *depressio n (chief complaint) Current moderate episode of major depressive disorder without prior episodeUnilatera l primary osteoarthritis, left knee Sep-1 9- 9 iJm Camp. [address] [place], [place], [address], . tel:[phone] Referring Provider: Cody Stein, [address] [facility], [place], [address] . [phone] [facility] [address], [place], [place], [address] , tel: [phone] Judson Unilateral primary osteoarthritis, left knee Sep-1 6-201 9 Judson Ross. [address] [place], [place], [address], . tel:[phone] Referring Provider: Cody Stein, [address] [place] [address] B, [place], [address] . tel:[phone] [facility], [address], [place], [place], [address] , tel: [phone] Roper Unilateral primary osteoarthritis, left knee Sep-0 9-201 9 Roper Cody. [address] [place] [address] B, [place], [place], [address], . tel:[phone] Referring Provider: Cody Stein, [address] [place] [address] B, [place], [address] . tel:[phone] [facility], [address], [place], [place], [address] , tel: [phone] Roper Unilateral primary osteoarthritis, left knee Sep-0 5-201 9 Roper Cody. [address] [place] [address], [address], . tel:[phone] Referring Provider: Cody Stein, [address] [place] [address] B, [place], [address] . tel:[phone] [facility], [address], [place], [place], [address] , tel: [phone] Roper Right arm pain Sep-0 4-201 9 Roper Cody. [address] [place] [address], [place], [place], [address], . tel:[phone] [facility], [address], [place], [place], [address] , tel: [phone] Roper Unilateral primary osteoarthritis, left knee Aug-1 9-201 9 Roper Cody. [address] [place] [address], [address], . tel:[phone] Referring Provider: Cody Stein, [address] [place] [address], [place], [address] . tel:[phone] [facility], [address], [place], [place], [address] , tel: [phone] Roper Unilateral primary osteoarthritis, left knee 9 Judson Ross. [address] [facility] [facility], [place], [place], [address], [place]. tel:[phone] Referring Provider: Cody Stein, [address] [facility] [address], [place], [address] . tel:[phone] OFFICE UJEIP-APF-TO [facility], [address], [place], [place], [address] , [place] tel:[phone] Judson mmp (chief complaint) Lateral epicondylitis of [...] smokerModerate persistent asthma without complication Judson Ross. [address] [facility], [place], [place], [id number], [place]. tel:[phone] Referring Provider: Cody Stein, [address] [facility] [address], [place], [address] . tel:[phone] [facility], [address], [place], [place], [address] , [place] tel:[phone] Judson Chronic pain of left kneeOther chronic pain 9 [facility]. [address] [place] [address], [address] [facility], [place], [place], [address], [place]. tel:[phone] [facility], [address], [place], [place], [address] , [place] tel:[phone] Judson Left knee pain. (chief complaint) Chronic pain of left knee 9 [facility]. [address] [facility], [address] [facility], [place], [place], [address], [place]. tel:[phone] Referring Provider: Cody Stein, [address] [facility] [address], [place], [address] . tel:[phone] [employer], [address], [place], [place], [address] , [place] tel: [phone] Judson URI_ (chief complaint) Moderate persistent asthma with acute exacerbation Feb-3 0 9 [employer]. [address] [place] [address], [address] Floor, [place], [place], [address], [place]. [phone] Referring Provider: Cody Stein, [address] [facility] [address], [place], [address] . tel:[phone] [employer], [address], [place], [place], [address] , [place] tel: [phone] Judson Lumbosacral radiculopathy due to degenerative joint disease of spineOsteoarthri tis of spine with radiculopathy, cervical regionOsteoarthr itis of multiple joints, unspecified osteoarthritis typeType 2 diabetes mellitus without complication, unspecified skilled nursing insulin use statusEssential hypertensionMixe d hyperlipidemiaSc iatica, unspecified lateralityIrrita ble bowel syndrome with diarrheaGastroes ophageal reflux disease, esophagitis presence not specifiedInsomni a, unspecified typeCurrent smokerAsthma, unspecified asthma severity, unspecified whether complicated, unspecified whether persistentImmuni zation refusedLateral epicondylitis of right elbow 9 Judson Ross. [address] [facility] [address], [place], [place], [address], [place]. tel:[phone] Referring Provider: Cody Stein, [address] [facility] [address], [place], [address] . tel:[phone] [employer], [address], [place], [place], [address] , [place] tel: [phone] Judson Lumbosacral radiculopathy due to degenerative joint disease of spineOsteoarthri tis of spine with radiculopathy, cervical regionOsteoarthr itis of multiple joints, unspecified osteoarthritis typeType 2 diabetes mellitus without complication, unspecified termination clerk insulin use statusEssential hypertensionMixe d hyperlipidemiaSc iatica, unspecified lateralityIrrita ble bowel syndrome with diarrheaGastroes ophageal reflux disease, esophagitis presence not specifiedInsomni a, unspecified typeCurrent smokerAsthma, unspecified asthma severity, unspecified whether complicated, unspecified whether persistent Oct-0 8-201 8 Judson Ross. [address] [place], [place], [address], . tel:[phone] Referring Provider: Cody Stein, [address] [place], [address] . tel:[phone] [employer] [place], [address], [place], [place], [address] , [place] tel: [phone] Judson Lumbosacral radiculopathy due to degenerative joint disease of spineOsteoarthri tis of spine with radiculopathy, cervical regionOsteoarthr itis of multiple joints, unspecified osteoarthritis typeType 2 diabetes mellitus without complication, unspecified termination clerk insulin use statusEssential hypertensionMixe d hyperlipidemiaSc iatica, unspecified lateralityIrrita ble bowel syndrome with diarrheaGastroes ophageal reflux disease, esophagitis presence not specifiedInsomni a, unspecified typeCurrent smokerAsthma, unspecified asthma severity, unspecified whether complicated, unspecified whether persistentFatigu e, unspecified typeArthralgia of both kneesLow vitamin D level 2-201 8 Judson Ross. [address] [place], [place], [address], [place]. tel:[phone] Referring Provider: Cody Stein, [address] [place], [address] . tel:[phone] [employer], [address], [place], [place], [address] , [place] tel: [phone] Judson Lumbosacral radiculopathy due to degenerative joint disease of spineOsteoarthri tis of spine with radiculopathy, cervical regionOsteoarthr itis of multiple joints, unspecified osteoarthritis typeType 2 diabetes mellitus without complication, unspecified skilled nursing insulin use statusEssential hypertensionMixe d hyperlipidemiaSc iatica, unspecified lateralityIrrita ble bowel syndrome with diarrheaGastroes ophageal reflux disease, esophagitis presence not specifiedInsomni a, unspecified typePainful menstrual flowCurrent smokerAsthma, unspecified asthma severity, unspecified whether complicated, unspecified whether persistentEye lesionChronic sinusitis, unspecified location 0 2 8 Judson Ross. [address] [facility], [place], [place], [address], . tel:[phone] Referring Provider: Cody Stein, [address] [facility] [address], [place], [address] . tel:[phone] [employer], [address], [place], [place], [address] , tel: [phone] Judson Type 2 diabetes mellitus without complication, unspecified termination clerk insulin use statusHypertensi ve heart disease without heart failureMixed hyperlipidemiaPr imary osteoarthritis of both hipsSpondylosis of cervical region without myelopathy or radiculopathySci atica, unspecified lateralityIrrita ble bowel syndrome with diarrheaGastroes ophageal reflux disease, esophagitis presence not specifiedInsomni a, unspecified typePainful menstrual flowCurrent smokerGanglion cystRight wrist tendonitisRight carpal tunnel syndromeLumbosac ral radiculopathy due to degenerative joint disease of spine 7 Judson Ross. [address] [facility], [place], [place], [address], . tel:[phone] Referring Provider: Cody Stein, [address] [place] [address] B, [place], [address] . tel:[phone] [employer], [address], [place], [place], [address] , tel: [phone] Judson Type 2 diabetes mellitus without complication, unspecified termination clerk insulin use statusHypertensi ve heart disease without heart failureInsomnia, unspecified typePrimary osteoarthritis of both hipsSpondylosis of cervical region without myelopathy or radiculopathyPai nful menstrual flowIrritable bowel syndrome with diarrheaCurrent smokerInfluenza vaccination declinedGastroes ophageal reflux disease, esophagitis presence not specifiedSciatic a, unspecified lateralityStomac h painMedication monitoring encounter 7 Judson Ross. [address] [place] [address], [place], [place], [address], . tel:[phone] Referring Provider: Cody Stein, [address] [place] [address], [place], [address] . tel:[phone] [employer] [place], [address], [place], [place], [address] , [place] tel: [phone] Judson Primary osteoarthritis of both hipsSpondylosis of cervical region without myelopathy or radiculopathyHyp ertensive heart disease without heart failureType 2 diabetes mellitus without complication, unspecified termination clerk insulin use statusInsomnia, unspecified typeIrritable bowel syndrome with diarrheaPainful menstrual flowCurrent smoker 7 Judson Ross. [address] [place] [address], [id number], . tel:[phone] Referring Provider: Cody Stein, [address] [place] [address], [place], [address] . tel:[phone] [employer], [address], [place], [place], [address] , [place] tel: [phone] Judson Primary osteoarthritis of both hipsSpondylosis of cervical region without myelopathy or radiculopathyHyp ertensive heart disease without heart failureType 2 diabetes mellitus without complication, unspecified termination clerk insulin use statusInsomnia, unspecified typeIrritable bowel syndrome with diarrheaMixed hyperlipidemia 7 Judson Ross. [address] [place] [address], [place], [place], [address], [place]. tel:[phone] Referring Provider: Cody Stein, [address] [place] [address], [place], [address] . tel:[phone] [employer], [address], [place], [place], [address] , [place] tel: [phone] Judson Primary osteoarthritis of both hipsSpondylosis of cervical region without myelopathy or radiculopathyHyp ertensive heart disease without heart failureType 2 diabetes mellitus without complication, unspecified skilled nursing insulin use statusInsomnia, unspecified type 6 Judson Ross. [address] [place], [place], [address], . tel:[phone] Referring Provider: Cody Stein, [address] [facility], [place], [address] . tel:[phone] [facility], [address], [place], [place], [address] , tel: [phone] Judson Strain of left hip, initial encounterLeft shoulder strain, initial encounter 6 Row[employer] Lynch. [address] [place], [place], [address]. tel:[phone] Referring Provider: Cody Stein, [address] [place], [address] . tel:[phone] [facility], [address], [place], [place], [address] , tel: [phone] Judson Chronic obstructive pulmonary disease, unspecifiedOther allergic rhinitisMixed hyperlipidemiaOt her fatigueInsomnia, persistentLocali zed osteoarthritis of lumbar spine 6 Judson Ross. [address] [facility], [place], [place], [address], . tel:[phone] Referring Provider: Cody Stein, [address] [facility], [place], [address] . tel:[phone] [facility], [address], [place], [place], [address] , [place] tel: [phone] Judson Sciatica, unspecified lateralityCoughC hronic obstructive pulmonary disease, unspecifiedOther allergic rhinitisMorbid obesity, unspecified obesity type 5 Judson Ross. [address] [facility], [place], [place], [address], . [phone] Referring Provider: Cody Stein, [address] [place], [address] . tel:[phone] Family History Family Member Type Diagnosis Age At Onset No Information Immunizations Vaccine Date Status Comments Pfizer (Diluent Reconstitute d) COVID19 Vaccine, 0.3mL per [...] Record Payers Payer name Insurance type Covered republican ID Sultana ramirez(s) BCBS ACCESS CHOICE [id number] BCBS ACCESS CHOICE BL [id number] BCBS INACTIVE OUT OF STATE [id number] BCBS INACTIVE OUT OF STATE [id number] Social History Type Description Quantity Date Captured [...] Order SC REENING MAMMOGRAM (CAD) Bilateral breast (35823), Body Site: breast, Sent on: Sent Future Order: Radiology Order SC REENING MAMMOGRAM (CAD) Bilateral breast ([id number]), Body Site: breast, Sent on: Sent Future Order: Radiology Order SC REENING MAMMOGRAM (CAD) Bilateral breast ([id number]), Body Site: breast, Sent on: Sent Future Order: Lab Order Urine Cu lture, Routine ([id number]), Collected on: , Sent on: Sent Future Order: Lab Order UA- Dips tick (office Lab) ([id number]), Collected on: Ordered Future Order: Radiology Order SC REENING MAMMOGRAM (CAD) Bilateral breast ([id number]), Body Site: breast, Sent on: Sent History [...] or exercise.Smoker: No change in habits reported. [facility] Pre-Op Clearance : Pt is [...] scheduled for this . No other complaints. [facility] HTN: Pt is med c [...] stretching and massage, local pressure improves pain. [facility] HTN: Pt is manag ing through diet [...] due to the pain. Denies recent injuries. mmp Lissa came in to discuss multiple medical problems [...] PCOS: Pt is med compliant. F/u with LOG HAUL OPERATOR as scheduled. No complaints. Metabolic syndrome: per [...] PCOS: Pt is med compliant. F/u with LOG HAUL OPERATOR as scheduled. No complaints. Metabolic syndrome: per [...] PCOS: Pt is med compliant. F/u with LOG HAUL OPERATOR as scheduled. No complaints. Metabolic syndrome: per [...] Pt reports that her pain is unchanged. tena Muñoz came in for multiple problems today [...] with Dr. Tracy (spelling?), hand surgeon at [facility]. Unilateral Primary Arthritis: Pt reports her knee [...] abdominal pain, and blood in stools. 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 Has not tried otc diarrhea mediations. [...] Pt has fhx of lymphoma but last mineral mixer visit found no cause for concernMetabolic syndrome: [...] that of lymphoma. Pt followed up with mineral mixer and he could not find anything wrong [...] after cutting back on her hours at [employer]. *depression Patient presents today with persistent feelings [...] has tried a knee brace from the [employer] and Ibuprofen with minimal relief. URI_ Patient [...] No Information Instructions Date Instruction Additional Infor matsharon Pt knows the risks o f taking [...] Pain Management. Encourage to complete stretches and iyzgc-tu-rspilc exercises. Encouraged patient to try and lose some weight. Will monitor. Related to Other spondylosis with radiculopathy, cervical region Unchanged. Insurance will no longer pay for injections. Continue current treatment with Oxycodone 10mg-325mg 1 tab four times daily. Continue following up with Pain Management. Continue following up with Dr. Dolna, orthopaedic surgeon as scheduled. Encourage to complete stretches and xkvmp-bi-ktebwn exercises. Encouraged patient to try and lose some weight. Will monitor. Related to Other spondylosis with radiculopathy, lumbosacral region Unchanged. Insurance will no longer pay for injections. Continue current treatment with Oxycodone 10mg-325mg 1 tab four times daily. Continue following up with Pain Management. Encourage to complete stretches and lyrbq-ay-ntycal exercises. Encouraged patient to try and lose some weight. Will monitor. Related to Spondylosis, unspecified Unchanged. Insurance will no longer pay for injections. Continue current treatment with Oxycodone 10mg-325mg 1 tab four times daily. Continue following up with Pain Management. Encourage to complete stretches and cuoof-el-gwguht exercises. Encouraged patient to try and lose [...] Pain Management. Encourage to complete stretches and fdxsf-xa-nlowvs exercises. Encouraged patient to try and lose [...] as scheduled. Encourage to complete stretches and wsqeu-nq-xmlhlm exercises. Encouraged patient to try and lose some weight. Will monitor. Related to Other spondylosis with radiculopathy, lumbosacral region Unchanged. Insurance will no longer pay for injections. Continue current treatment with Oxycodone 10mg-325mg 1 tab four times daily. Continue following up with Pain Management. Encourage to complete stretches and jfjbo-hx-ckwplp exercises. Encouraged patient to try and lose some weight. Will monitor. Related to Spondylosis, unspecified S/p 2 level ACDF wit h plating. With improved symptoms. PDMP has been checked. Continue current treatment with Oxycodone 10mg-325mg 1 tab four times daily. Continue following up with Pain Management. Encourage to complete stretches and soopm-gs-sjmbky exercises. Encouraged patient to try and lose [...] as scheduled. Encourage to complete stretches and juvzu-yh-ebovce exercises. Encouraged patient to try and lose some weight. Will monitor. Related to Other spondylosis with radiculopathy, lumbosacral region Unchanged. Insurance will no longer pay for injections. Continue current treatment with Oxycodone 10mg-325mg 1 tab four times daily. Continue following up with Pain Management. Encourage to complete stretches and nmjro-vy-tkvvhc exercises. Encouraged patient to try and lose some weight. Will monitor. Related to Unilateral primary osteoarthritis, left knee S/p 2 level ACDF wit h plating. With improved symptoms. PDMP has been checked. Continue current treatment with Oxycodone 10mg-325mg 1 tab four times daily. Continue following up with Pain Management. Encourage to complete stretches and arofd-cb-xjzfuz exercises. Encouraged patient to try and lose some weight. Will monitor. Related to Other spondylosis with radiculopathy, cervical region Unchanged. Insurance will no longer pay for injections. Continue current treatment with Oxycodone 10mg-325mg 1 tab four times daily. Continue following up with Pain Management. Encourage to complete stretches and xtdtk-el-qgepqt exercises. Encouraged patient to try and lose [...] as scheduled. Encourage to complete stretches and puuuv-nq-xvdnpx exercises. Encouraged patient to try and lose some weight. Will monitor. Related to Unilateral primary osteoarthritis, left knee Unchanged. Insurance will no longer pay for injections. PDMP has been checked. Continue current treatment with Hydrocodone 5-325mg 1 tab TID prn, Nabumetone 750mg 1 tab BID and Gabapentin 300mg 2 tabs QID prn. Continue following up with Dr. Dolna, orthopaedic surgeon as scheduled. Encourage to complete stretches and iethp-ci-uepmzj exercises. Encouraged patient to try and lose [...] as scheduled. Encourage to complete stretches and hlzbn-np-yhftkg exercises. Encouraged patient to try and lose [...] as scheduled. Encourage to complete stretches and ivsfm-cy-vjcucn exercises. Encouraged patient to try and lose [...] as scheduled. Encourage to complete stretches and fajsp-bl-zjfufz exercises. Encouraged patient to try and lose [...] as scheduled. Encourage to complete stretches and hzbyj-zj-nqimtp exercises. Encouraged patient to try and lose some weight. Will monitor. Related to Other chronic pain Unchanged. Continue current treatment with Hydrocodone 5-325mg 1 tab TID prn, Nabumetone 750mg 1 tab BID and Gabapentin 300mg 2 tabs TID. Continue following up with orthopaedic surgeon as scheduled. Encourage to complete stretches and alpei-hb-obxnyk exercises. Encouraged patient to try and lose [...] as scheduled. Encourage to complete stretches and wtode-vz-cbipwp exercises. Encouraged patient to try and lose some weight. Will monitor. Related to Unilateral primary osteoarthritis, left knee Unchanged. Continue current treatment with Hydrocodone 5-325mg 1 tab TID prn, Nabumetone 750mg 1 tab BID and Gabapentin 300mg 2 tabs TID. Continue following up with orthopaedic surgeon as scheduled. Encourage to complete stretches and ygwtl-hh-rbzkgi exercises. Encouraged patient to try and lose [...] as scheduled. Encourage to complete stretches and dssxn-tx-mmikio exercises. Encouraged patient to try and lose [...] as scheduled. Encourage to complete stretches and ijula-ls-itftmu exercises. Encouraged patient to try and lose some weight. Will monitor. Related to Other chronic pain Unchanged. Continue current treatment with Hydrocodone 5-325mg 1 tab TID prn, Nabumetone 750mg 1 tab BID and Gabapentin 300mg 2 tabs TID. Continue following up with orthopaedic surgeon as scheduled. Encourage to complete stretches and gmalq-sp-kfygvv exercises. Encouraged patient to try and lose [...] as scheduled. Encourage to complete stretches and eiprj-jx-qynbpp exercises. Encouraged patient to try and lose some weight. Will monitor. Related to Lumbosacral radiculopathy due to degenerative joint disease of spine Unchanged. Continue current treatment with Hydrocodone 5-325mg 1 tab TID prn, Nabumetone 750mg 1 tab BID and Gabapentin 300mg 2 tabs TID. Continue following up with orthopaedic surgeon as scheduled. Encourage to complete stretches and noxuy-xa-lozpzn exercises. Encouraged patient to try and lose some weight. Will monitor. Related to Unilateral primary osteoarthritis, left knee Managed per OBGYNChanel andersoninjamaal current treatment with Metformin ER 500mg 1 [...] as scheduled. Encourage to complete stretches and bfirj-os-mllins exercises. Encouraged patient to try and lose some weight. Will monitor. Related to Osteoarthritis of spine with radiculopathy, cervical region Unchanged. Continue current treatment with Hydrocodone 5-325mg 1 tab TID prn, Nabumetone 750mg 1 tab BID and Gabapentin 300mg 2 tabs TID. Continue following up with orthopaedic surgeon as scheduled. Encourage to complete stretches and xutay-pb-esupav exercises. Encouraged patient to try and lose [...] as scheduled. Encourage to complete stretches and ndzci-ra-rpruum exercises. Encouraged patient to try and lose some weight. Will monitor. Related to Unilateral primary osteoarthritis, left knee Unchanged. Continue current treatment with Hydrocodone 5-325mg 1 tab TID prn, Nabumetone 750mg 1 tab BID and Gabapentin 300mg 2 tabs TID. Continue following up with orthopaedic surgeon as scheduled. Encourage to complete stretches and wrjgk-tn-mbxruo exercises. Encouraged patient to try and lose some weight. Will monitor. Related to Osteoarthritis of spine with radiculopathy, cervical region Unchanged. Continue current treatment with Hydrocodone 5-325mg 1 tab TID prn, Nabumetone 750mg 1 tab BID and Gabapentin 300mg 2 tabs TID. Continue following up with orthopaedic surgeon as scheduled. Encourage to complete stretches and rmkwq-jn-isixmb exercises. Encouraged patient to try and lose some weight. Will monitor. Related to Spondylosis Unchanged. Continue current treatment with Hydrocodone 5-325mg 1 tab TID prn, Nabumetone 750mg 1 tab BID and Gabapentin 300mg 2 tabs TID. Continue following up with orthopaedic surgeon as scheduled. Encourage to complete stretches and rocyo-sp-kwuhtn exercises. Encouraged patient to try and lose [...] as scheduled. Encourage to complete stretches and aoaqw-bt-pmsehs exercises. Encouraged patient to try and lose [...] as scheduled. Encourage to complete stretches and jnexr-hg-mrxvyg exercises. Encouraged patient to try and lose [...] as scheduled. Encourage to complete stretches and vvbvf-ff-zafrol exercises. Encouraged patient to try and lose some weight. Will monitor. Related to Osteoarthritis of spine with radiculopathy, cervical region Unchanged. Continue current treatment with Hydrocodone 5-325mg 1 tab TID prn, Nabumetone 750mg 1 tab BID and Gabapentin 300mg 2 tabs TID. Continue following up with orthopaedic surgeon as scheduled. Encourage to complete stretches and dbmjy-ui-vvxfkj exercises. Encouraged patient to try and lose [...] as scheduled. Encourage to complete stretches and hnmrj-ql-vsgmzg exercises. Encouraged patient to try and lose some weight. Will monitor. Related to Lumbosacral radiculopathy due to degenerative joint disease of spine Unchanged. Continue current treatment with Hydrocodone 5-325mg 1 tab TID as needed, Nabumetone 750mg 1 tab BID and Gabapentin 300mg 2 tabs QID. Continue following up with orthopaedic surgeon as scheduled. Encourage to complete stretches and winht-ln-fcwbru exercises. Encouraged patient to try and lose [...] as scheduled. Encourage to complete stretches and lscsz-mv-yynbwh exercises. Encouraged patient to try and lose some weight. Will monitor. Related to Unilateral primary osteoarthritis, left knee Unchanged. Continue current treatment with Hydrocodone 5-325mg 1 tab TID as needed, Nabumetone 750mg 1 tab BID and Gabapentin 300mg 2 tabs QID. Continue following up with orthopaedic surgeon as scheduled. Encourage to complete stretches and iuxax-ca-kiqfaw exercises. Encouraged patient to try and lose [...] as scheduled. Encourage to complete stretches and sheov-pi-eonebc exercises. Encouraged patient to try and lose [...] as scheduled. Encourage to complete stretches and lpcra-ui-vaovjl exercises. Encouraged patient to try and lose [...] as scheduled. Encourage to complete stretches and ojsyl-ek-dmbgzd exercises. Encouraged patient to try and lose some weight. Will monitor. Related to Spondylosis Managed per OBGYNChanel damian current treatment with Metformin ER 500mg 1 [...] as scheduled. Encourage to complete stretches and ivwnx-ej-gvhkuc exercises. Encouraged patient to try and lose [...] as scheduled. Encourage to complete stretches and poqia-sz-xcytzy exercises. Encouraged patient to try and lose some weight. Will monitor. Related to Unilateral primary osteoarthritis, left knee Unchanged. Continue current treatment with Hydrocodone 5-325mg 1 tab TID as needed, Relafen 750mg 1 tablet BID, and Gabapentin 300mg 2 tabs QID. Continue following up with orthopaedic surgeon as scheduled. Encourage to complete stretches and kruos-ll-gsupuu exercises. Encouraged patient to try and lose some weight. Will monitor. Related to Spondylosis Unchanged. Continue current treatment with Hydrocodone 5-325mg 1 tab TID as needed, Relafen 750mg 1 tablet BID, and Gabapentin 300mg 2 tabs QID. Continue following up with orthopaedic surgeon as scheduled. Encourage to complete stretches and hjbdd-fb-zdfptx exercises. Encouraged patient to try and lose [...] screening mammogram in office today.RHM: Pt received [employer] COVID-19 vaccine x1 on 06/14/2021 and is [...] as scheduled. Encourage to complete stretches and frfel-ni-yfywve exercises. Encouraged patient to try and lose [...] as scheduled. Encourage to complete stretches and keary-uc-ysrvdz exercises. Encouraged patient to try and lose some weight. Will monitor. Related to Osteoarthritis of spine with radiculopathy, cervical region Stable. Continue cur rent treatment with Hydrocodone 5-325mg 1 tab TID as needed, Relafen 750mg 1 tablet BID, and Gabapentin 300mg 2 tabs QID. Continue following up with orthopaedic surgeon as scheduled. Encourage to complete stretches and spmse-sm-ncfrzd exercises. Encouraged patient to try and lose [...] foot edema. Encourage to complete stretches and tpdmv-lk-viwzde exercises. Encouraged patient to try and lose some weight. Will monitor. Related to Unilateral primary osteoarthritis, left knee Stable. Continue cur rent treatment with Hydrocodone 5-325mg 1 tab TID as needed, Relafen 750mg 1 tablet BID, and Gabapentin 300mg 2 tabs QID. Continue following up with orthopaedic surgeon as scheduled. Encourage to complete stretches and chhpu-we-nrdtss exercises. Encouraged patient to try and lose some weight. Will monitor. Related to Spondylosis Stable. Continue cur rent treatment with Hydrocodone 5-325mg 1 tab TID as needed, Relafen 750mg 1 tablet BID, and Gabapentin 300mg 2 tabs QID. Continue following up with orthopaedic surgeon as scheduled. Encourage to complete stretches and onwcm-yw-qbjjaa exercises. Encouraged patient to try and lose [...] vigilant self-foot exams. Will continue to monitor.Labs: [id number]: Able to self-manage condition. Goals: Your goal [...] to Mixed hyperlipidemia Controlled. BP of 11 taken in the office today. Controlled without [...] wrist See plan #12Labs: CM P, CBC, [id number] up in 3 months or sooner if needed. Charting performed by Lesli Uribe, acting as scribe for Dr. Carrizales. MD Judson: I reviewed the chart and agree with and approve of the documentation. Related to Body mass index (BMI) 32.0-32.9, adult Symptomatic. INCREAS E Hydrocodone 5-325mg 1 tab TID as needed. Continue current treatment - Relafen 750mg 1 tablet BID, and Gabapentin 300mg 2 tabs QID. Continue following up with orthopaedic surgeon as scheduled. Encourage to complete stretches and teukw-ty-uiuwhd exercises. Encouraged patient to try and lose [...] as scheduled. Encourage to complete stretches and xjbdk-bs-ctbeot exercises. Encouraged patient to try and lose some weight. Will monitor. Related to Osteoarthritis of spine with radiculopathy, cervical region Symptomatic. INCREAS E Hydrocodone 5-325mg 1 tab TID as needed. Continue current treatment - Relafen 750mg 1 tablet BID, and Gabapentin 300mg 2 tabs QID. Continue following up with orthopaedic surgeon as scheduled. Encourage to complete stretches and msfyk-eb-flukuc exercises. Encouraged patient to try and lose [...] as scheduled. Encourage to complete stretches and tblqw-ky-ltkdgd exercises. Encouraged patient to try and lose some weight. Will monitor. Related to Lumbosacral radiculopathy due to degenerative joint disease of spine Symptomatic. INCREAS E Hydrocodone 5-325mg 1 tab TID as needed. Continue current treatment - Relafen 750mg 1 tablet BID, and Gabapentin 300mg 2 tabs QID. Continue following up with orthopaedic surgeon as scheduled. Encourage to complete stretches and wgild-nh-czacph exercises. Encouraged patient to try and lose [...] tabs QID. Encourage to complete stretches and vppig-jh-ehowuw exercises. Encouraged patient to try and lose some weight. Will monitor. Related to Sciatica, unspecified laterality Symptomatic. Continu e following up with orthopaedic surgeon as scheduled. Continue with Hydrocodone 5-325mg 1 tab every 12 hours as needed, Relafen 750mg 1 tablet BID, and Gabapentin 300mg 2 tabs QID. Encourage to complete stretches and aaxiz-yw-jkigzm exercises. Encouraged patient to try and lose some weight. Will monitor. Related to Spondylosis Symptomatic. Continu e following up with orthopaedic surgeon as scheduled. Continue with Hydrocodone 5-325mg 1 tab every 12 hours as needed, Relafen 750mg 1 tablet BID, and Gabapentin 300mg 2 tabs QID. Encourage to complete stretches and vkpqy-vd-nnhflw exercises. Encouraged patient to try and lose some weight. Will monitor. Related to Osteoarthritis of spine with radiculopathy, cervical region Symptomatic. Continu e following up with orthopaedic surgeon as scheduled. Continue with Hydrocodone 5-325mg 1 tab every 12 hours as needed, Relafen 750mg 1 tablet BID, and Gabapentin 300mg 2 tabs QID. Encourage to complete stretches and nyvqs-my-qgdybb exercises. Encouraged patient to try and lose some weight. Will monitor. Related to Lumbosacral radiculopathy due to degenerative joint disease of spine Symptomatic. Continu e following up with orthopaedic surgeon as scheduled. Continue with Hydrocodone 5-325mg 1 tab every 12 hours as needed, Relafen 750mg 1 tablet BID, and Gabapentin 300mg 2 tabs QID. Encourage to complete stretches and mhavi-jg-eytosj exercises. Encouraged patient to try and lose [...] tabs QID. Encourage to complete stretches and prvcq-ce-xtrhtu exercises. Encouraged patient to try and lose some weight. Will monitor. Related to Unilateral primary osteoarthritis, left knee Controlled. Continue following up with orthopaedic surgeon as scheduled. Continue with Hydrocodone 5-325mg 1 tab every 12 hours as needed. STOP Feldene 20mg 1 tab daily. START with Relafen 750mg 1 tablet BID. Continue with Gabapentin 300mg 2 tabs QID. Encourage to complete stretches and tykzh-ji-tndsje exercises. Encouraged patient to try and lose [...] tabs QID. Encourage to complete stretches and epose-hp-vhcnep exercises. Encouraged patient to try and lose [...] tabs QID. Encourage to complete stretches and xtygt-to-wmlzhl exercises. Encouraged patient to try and lose some weight. Will monitor. Related to Spondylosis Symptomatic. Continu e following up with orthopaedic surgeon as scheduled. Continue with Hydrocodone 5-325mg 1 tab every 6 hours as needed. STOP Feldene 20mg 1 tab daily. START Relafen 750mg 1 tablet BID Continue with Gabapentin 300mg 2 tabs QID. Encourage to complete stretches and dxuxw-vr-metliy exercises. Encouraged patient to try and lose [...] as directed. Encourage to complete stretches and qttsq-dq-lawrky exercises. Encouraged patient to try and lose some weight. Will monitor. Related to Sciatica, unspecified laterality Stable. Will continu e to monitor. Notify for worsening symptoms. Related to Irritable bowel syndrome with diarrhea WBC 16.78 on 019. Will refer to mineral mixer if WBC remains elevated today. Will monitor. [...] as directed. Encourage to complete stretches and wcrnt-zi-nwsroi exercises. Encouraged patient to try and lose [...] as directed. Encourage to complete stretches and dklte-yn-nhvviv exercises. Encouraged patient to try and lose [...] as directed. Encourage to complete stretches and ydkdn-ph-pkilap exercises. Encouraged patient to try and lose [...] tab QHS. Encourage to complete stretches and fmvam-ae-kkotrr exercises. Will continue to monitor. Related to [...] as directed. Encourage to complete stretches and ufcmn-wd-zbuary exercises. Encouraged patient to try and lose [...] as directed. Encourage to complete stretches and ltkqa-ha-kneatn exercises. Encouraged patient to try and lose some weight. Will monitor. Related to Lateral epicondylitis of right elbow WBC 16.78 on 019. Will refer to mineral mixer if WBC remains elevated today. Will monitor. Related to Leukocytosis, unspecified type Pain persists. Judy nue following up with orthopaedic surgeon as scheduled. Continue with Hydrocodone 5-325mg 1 tab every 6 hours as needed and Feldine 20mg 1 tab daily. Gabapentin 300mg 2 tabs QID and Flexeril 10mg 1 tab QHS as directed. Encourage to complete stretches and xzezx-sd-biglax exercises. Encouraged patient to try and lose [...] as directed. Encourage to complete stretches and klsfs-lh-aabmep exercises. Encouraged patient to try and lose [...] as directed. Encourage to complete stretches and abjrt-ze-ogptvj exercises. Encouraged patient to try and lose [...] tab QHS. Encourage to complete stretches and xlwnx-np-bgcadg exercises. Will continue to monitor. Related to [...] as directed. Encourage to complete stretches and vmfmu-vn-souxmj exercises. Encouraged patient to try and lose [...] as directed. Encourage to complete stretches and xdosr-mc-tujphf exercises. Encouraged patient to try and lose some weight. Will monitor. Related to Lumbosacral radiculopathy due to degenerative joint disease of spine Pain persists. Judy nue with Gabapentin 300mg 2 tabs QID and Flexeril 10mg 1 tab QHS as directed. Encourage to complete stretches and mxafa-pp-fpatnc exercises. Encouraged patient to try and lose some weight. Will monitor. Related to Lateral epicondylitis of right elbow WBC 19.61 on 019 and 19.23 on 05/20/2019. Will refer to mineral mixer if WBC remains elevated today. Will monitor. Labs: CBC Related to Leukocytosis, unspecified type Fit test stool cards given today. Follow up in 3 months or sooner as needed. Charting performed by Antelmo Hayes, acting as scribe for Dr. Roper.Kam Roper: I reviewed the chart and agree with and approve of documentation. Related to Screening for colon cancer Medication management Start Medrol dose madalyn lazaro. Discussed side effectsRecommend patient take Meloxicam daily [...]
--- OUTSIDE RECORDS SUMMARY | 2025-02-05 00:53 | XMS_ITS | Clinical Summary ---
Author Organization [facility] Address [address] [place] [address] Care Team Providers Care Supervisor Plastics Name Role Phone Cody Roper DO Primary Care Provider David Bell MD Unavailable [phone] Allergies No known active allergies Medications [...] tablet 1 hour before procedure. Will need home delivery driver to bring him. 2 tablet 3 [...] Comments Blood Pressure 107/77 11/30/2022 12:49 PM WATER TESTER Pulse 77 11/30/2022 12:49 PM WATER TESTER Temperature 36.4 C (97.5 F) 11/02/2022 7:14 AM WATER TESTER Respiratory Rate 16 11/30/2022 12:49 PM WATER TESTER Oxygen Saturation 100% 11/30/2022 12:49 PM WATER TESTER Inhaled Oxygen Concentration - - Weight 83.2 kg (183 lb 8 oz) 10/19/2022 9:40 AM WATER TESTER Height 157.5 cm (5' 2 ) 10/19/2022 9:40 AM WATER TESTER Body Mass Index 33.56 10/19/2022 9:40 AM WATER TESTER Plan of Treatment Health Maintenance Due Date Last Done Comments Breast Cancer Screening-Mammogram 1979 Cervical Cancer Screening 1979 Colon Cancer Screening-Colonoscopy 1979 Depression Screening 1979 Hepatitis C Screening 1979 DTaP/Tdap/Td Vaccine (1 - Tdap) 1990 Hepatitis B Screening 1997 Regular Well Visit/Exam 18-64 1997 Pneumococcal vaccine <65 (1 of 2 - PCV) 1998 Covid-19 Vaccine (2 - 2023-2 5 season) 2024 06/14/2021 Influenza Vaccine (#1) 2024 HPV Vaccines Aged Out No longer eligi ble based on patient's age to complete this topic Insurance [employer] Care Teams Supervisor Plastics Relationship Specialty Start Date End Date Cody Roper DO [address] [place] [address] PCP - General Family Medicine 07/02/19 David Bell MD [address] [place] [address] Medical Oncologist/Plastic Boat Patcher Hematology and Oncology 06/11/20
--- OUTSIDE RECORDS SUMMARY | 2025-02-05 00:53 | XMS_ITS | Referral Summary ---
Author Organization [facility] Address [address] [place] [address] Care Team Providers Care Invas Tech Name Role Phone Cody Roper DO Primary Care Provider David Bell MD Unavailable [phone] Allergies No known active allergies Medications [...] tablet 1 hour before procedure. Will need cpr ambulance driver to bring him. 2 tablet 3 [...] Comments Blood Pressure 107/77 11/30/2022 12:49 PM COMPANY LAUNDRY WORKER Pulse 77 11/30/2022 12:49 PM COMPANY LAUNDRY WORKER Temperature 36.4 C (97.5 F) 11/02/2022 7:14 AM COMPANY LAUNDRY WORKER Respiratory Rate 16 11/30/2022 12:49 PM COMPANY LAUNDRY WORKER Oxygen Saturation 100% 11/30/2022 12:49 PM COMPANY LAUNDRY WORKER Inhaled Oxygen Concentration - - Weight 83.2 kg (183 lb 8 oz) 10/19/2022 9:40 AM COMPANY LAUNDRY WORKER Height 157.5 cm (5' 2 ) 10/19/2022 9:40 AM COMPANY LAUNDRY WORKER Body Mass Index 33.56 10/19/2022 9:40 AM COMPANY LAUNDRY WORKER Plan of Treatment Not on file Insurance [employer] CHO[employer] CHO[employer] Care Teams Invas Tech Relationship Specialty Start Date End Date Cody Roper DO [address] [place] [address] PCP - General Family Medicine 07/02/19 David Bell MD [address] [place] [address] Medical Oncologist/Financial Planning Consultant Hematology and Oncology 06/11/20
--- OUTSIDE RECORDS SUMMARY | 2025-02-05 00:53 | XMS_ITS | Clinical Summary ---
Author Organization [facility] Address [address] [place] [address] Care Team Providers Care Technology Architect Name Role Phone Roper, Dino SalgadoEmil Primary Care Provider [phone] David Bell MD Unavailable [phone] Danilo Dolan MD Unavailable [phone] Harvey Liriano MD Unavailable Unavailable Allergies Active Allergy Reactions Criticality Noted Date Comments Seasonal Headache,Sneezing,Ot her (see comment) 03/01/2023 allergies all year long. Sneezing, watery eyes, sinus headaches Medications fluticasone-salmet francy (ADVAIR DISKUS) 250-50 MCG/ACT inhaler Inhale 1 [...] (six) hours as needed for Wheezing. Active acetaminophen (TYLENOL) 500 MG tablet Take 2 tablets (1,000 mg total) by mouth every 6 (six) hours as needed for Pain. Active metoprolol succinate ER (TOPROL-XL) 25 MG 24 hr tablet Take 1 tablet (25 mg total) by mouth daily. 03/07/20 23 Active HYDROcodone-acetam inophen (NORCO) 5-325 MG tabletIndications: Acute Pain < 7 Day Supply Take 1 tablet by mouth every 6 (six) hours as needed. Indications: Acute Pain < 7 Day Supply 15 tablet 12/25/19 25 Active naloxone (NARCAN) 4 MG/0.1ML nasal spray 1 spray by Nasal route as needed for Opioid reversal. may repeat every 2 to 3 minutes in alternating nostrils until medical assistance becomes available 1 each 12/25/19 25 026 Active ibuprofen (MOTRIN) 200 MG tablet Take 4 tablets (800 mg total) by mouth every 6 (six) hours as needed for Pain. 025 Discontinu ed(Therapy completed) HYDROmorphone (DILAUDID) 2 MG tabletIndications: post-op pain Take 2 tablets (4 mg total) by mouth every 4 (four) hours as needed for Pain (take 1-2 tablets every fours hour by mouth for post-operative pain. DO NOT TAKE WITH ANY OTHER OPIATE MEDICATIONS). Indications: post-op pain 45 tablet 03/09/20 23 025 Discontinu ed(Therapy completed) HYDROmorphone (DILAUDID) 2 MG tabletIndications: Post-operative pain Take 2 tablets (4 mg total) by mouth every 4 (four) hours as needed for Pain (Take 1-2 tablets every four hours by mouth for post-operative pain. Do not take with any other opiate medications). Indications: Post-operative pain 45 tablet 03/09/20 23 025 Discontinu ed(Therapy completed) naproxen (NAPROSYN) 500 MG tablet Take 1 tablet (500 mg total) by mouth 2 (two) times daily with meals. 30 tablet 11/13/20 025 Discontinu ed(Therapy completed) oxyCODONE-acetamin ophen (PERCOCET) 5-325 MG tabletIndications: Acute Pain < 7 Day Supply Take 1 tablet by mouth every 4 (four) hours as needed for Pain. Indications: Acute Pain < 7 Day Supply 10 tablet 11/13/20 025 Discontinu ed(Therapy completed) ketorolac (TORADOL) 10 MG tablet Take 1 tablet (10 mg total) by mouth 4 (four) times daily as needed. 20 tablet 01/19/20 025 Active Problems Problem Noted Date Diagnosed Date Cervical radiculopathy 03/08/2023 Encounters Date Type Department Care Team Description 01/18/2025 9:58 AM MAORI PHYSIOTHERAPIST - 01/18/2025 5:38 PM [facility] Emergency [facility] [place] [address] Marisela Houston PA Abdominal Pain Discharge Disposition: Home or Self Care (Routine Discharge) 01/18/2025 Travel 12/25/2024 2:46 PM MAORI PHYSIOTHERAPIST - 12/25/2024 7:13 PM [facility] Emergency [facility] [place] [address] Radha Cortes NP Abdominal Pain Discharge Disposition: Home or Self Care (Routine Discharge) 12/25/2024 Travel 11/13/2024 2:06 PM MAORI PHYSIOTHERAPIST - 11/13/2024 4:36 PM [facility] Emergency [facility] [place] [address] Raz Wade PA-C Flank Pain Discharge Disposition: Home or Self Care (Routine Discharge) 11/13/2024 Travel 11/08/2024 4:47 AM MAORI PHYSIOTHERAPIST - 11/08/2024 7:06 AM MAORI PHYSIOTHERAPIST Emergency [facility] [place] [address] Jorgito Kathleen MD,PHD Leta Silveira MD Flank [...] place to sleep or slept in a [place] facility (including now)? No 03/08/2023 Comments No Sex and Gender Information Value Date Recorded Sex Assigned at Female 12/25/2024 1:18 PM MAORI PHYSIOTHERAPIST Legal Sex Female 4:07 PM MAORI PHYSIOTHERAPIST Gender Identity Not on file Sexual Orientation Not on file Last Filed Vital Signs Vital Sign Reading Time Taken Comments Blood Pressure 140/93 01/18/2025 5:36 PM MAORI PHYSIOTHERAPIST Pulse 96 01/18/2025 5:36 PM MAORI PHYSIOTHERAPIST Temperature 36.1 C (97 F) 01/18/2025 10:33 AM MAORI PHYSIOTHERAPIST Respiratory Rate 16 01/18/2025 5:36 PM MAORI PHYSIOTHERAPIST Oxygen Saturation 100% 01/18/2025 5:36 PM MAORI PHYSIOTHERAPIST Inhaled Oxygen Concentration - - Weight 73.5 kg (162 lb) 01/18/2025 9:05 AM MAORI PHYSIOTHERAPIST Height 157.5 cm (5' 2 ) 01/18/2025 9:05 AM MAORI PHYSIOTHERAPIST Body Mass Index 29.63 01/18/2025 9:05 AM MAORI PHYSIOTHERAPIST Plan of Treatment Health Maintenance Due Date [...] patient's age to complete this topic Meningococcal B Vaccine Aged Out No l onger eligible based on patient's age to complete [...] Solis, RN Medical Devices Implanted Type Area Animal Scientist Device Identifier Shelf Expiration Date Model / Serial / Lot Graft Bone I Factor 2.5cc Allograft Putty Syringe - [id number] Implanted:Qt y: 1 on 03/08/2023 by Danilo Dolan MD at [facility] Bone N/A: Spine Cervical [employer] [id number] 07/19/2025 700-025 / / [id number] Zavation Cage [id number] Implanted:Qt y: 1 on 03/08/2023 by [facility] Cage N/A: Spine Cervical 20-0607 / / Description:At c6-7 Zavation [id number] Cage Implanted:Qt y: 1 on 03/08/2023 by Danilo Dolan MD at [facility] Cage N/A: Spine Cervical 20-0606 / / Description:At c5-6 Zavation 32mm Plate Implanted:Qt y: 1 on 03/08/2023 by Danilo Dolan MD at [facility] Plate N/A: Spine Cervical 30-0232 / / Zavation 4.0x12mm Vsd Screw Implanted:Qt y: 6 on 03/08/2023 by Danilo Dolan MD at [facility] Screw N/A: Spine Cervical 31-4012 / / Tissue Surgiflo 8ml - [id number] Implanted:Qt y: 1 on 03/08/2023 by [facility] Sealant N/A: Spine Cervical [employer] 04/18/2024 [id number] / / [id number] Procedures Procedure Name Priority Date/Time Associated Diagnosis Comments LACTIC ACID W REFLEX (SEPSIS) TIMED 01/18/2025 1:27 PM MAORI PHYSIOTHERAPIST US PELVIC NON OB COMP TV STAT 01/18/2025 12:42 PM MAORI PHYSIOTHERAPIST LACTIC ACID W REFLEX (SEPSIS) STAT 01/18/2025 10:[address] ABD+PEL KIDNEY STONE STAT 01/18/2025 10:36 AM MAORI PHYSIOTHERAPIST POCT URINE (BACK OFFICE) STAT 01/18/2025 10:10 AM MAORI PHYSIOTHERAPIST HC URINALYSIS AUTO W/O MICRO STAT 01/18/2025 10:08 AM MAORI PHYSIOTHERAPIST COMPREHENSIVE METABOLIC PANEL STAT 01/18/2025 10:08 AM MAORI PHYSIOTHERAPIST CBC W/DIFF AUTOMATED STAT 01/18/2025 10:[address] ABD+PEL W CON STAT 12/25/2024 5:06 PM MAORI PHYSIOTHERAPIST URINE BACTERIA CULTURE STAT 3:53 PM MAORI PHYSIOTHERAPIST HC URINALYSIS AUTO W/O MICRO STAT 12/25/2024 3:53 PM MAORI PHYSIOTHERAPIST POCT URINE (BACK OFFICE) STAT 12/25/2024 3:52 PM MAORI PHYSIOTHERAPIST LIPASE STAT 12/25/2024 3:38 PM MAORI PHYSIOTHERAPIST COMPREHENSIVE METABOLIC PANEL STAT 12/25/2024 3:38 PM MAORI PHYSIOTHERAPIST CBC W/DIFF AUTOMATED STAT 12/25/2024 3:38 PM MAORI PHYSIOTHERAPIST HC URINALYSIS AUTO W/O MICRO STAT 11/13/2024 2:26 PM MAORI PHYSIOTHERAPIST LIPASE STAT 11/13/2024 2:26 PM MAORI PHYSIOTHERAPIST COMPREHENSIVE METABOLIC PANEL STAT 11/13/2024 2:26 PM MAORI PHYSIOTHERAPIST CBC W/DIFF AUTOMATED STAT 11/13/2024 2:[address] ABD+PEL WO CON STAT 11/13/2024 2:2 0 [address] ABD+PEL WO CON STAT 11/08/2024 5:4 4 AM MAORI PHYSIOTHERAPIST COMPREHENSIVE METABOLIC PANEL STAT 11/08/2024 5:43 AM MAORI PHYSIOTHERAPIST CBC W/DIFF AUTOMATED STAT 11/08/2024 5:43 AM MAORI PHYSIOTHERAPIST POCT URINE (BACK OFFICE) STAT 11/08/2024 5:27 AM MAORI PHYSIOTHERAPIST HC URINALYSIS AUTO W/O MICRO STAT 11/08/2024 5:06 AM MAORI PHYSIOTHERAPIST from Last 3 Months Results * LACTIC ACID W REFLEX (SEPSIS) (01/18/2025 1:27 PM MAORI PHYSIOTHERAPIST) Only the most recent of2 resultswithin the time period is included. LACTIC ACID VENOUS 1.3 0.4 - 2.0 MMOL/L 01/18/2025 3:[address] [facility] 01/18/2025 1:27 PM MAORI PHYSIOTHERAPIST us [facility] Final Resul t [facility] [address] [place] [address], [place] [phone] * US PELVIC TV NON OB (01/18/2025 12:42 PM MAORI PHYSIOTHERAPIST) Anatomical Region Laterality Modality Pelvis Ultrasound 01/18/2025 12:3 2 PM MAORI PHYSIOTHERAPIST Impressions 01/18/2025 12:35 PM MAORI PHYSIOTHERAPIST Impression: 1. No acute findings in the pelvis. Documented Doppler flow within both ovaries. 2. Simple appearing bilateral follicular cysts measuring up to 2.9 cm. No specific follow-up is required. Referred By: Interpreted By: Ciaran Márquez MD, 01/18/2025 12:32 PM Narrative 01/18/2025 12:35 PM MAORI PHYSIOTHERAPIST [facility] [address] [place], [place] [address] Procedure: US PELVIC NON OB COMP TV Indication: ovarian cyst, 2.5cm cyst on CT, pain in LLQ Comparison: CT abdomen and pelvis 01/18/2025. Technique: Transvaginal ultrasound performed of the pelvis. Color Doppler and spectral Doppler were performed of the ovaries. Findings: UTERUS: The uterus is anteverted. It measures 8.3 x 3.7 x 4.8 cm. Nabothian cysts. The endometrium measures 0.65 cm. RIGHT ADNEXA: The right ovary appears normal. The right ovary measures 4.3 x 2.6 x 3.4 cm. Documented Doppler flow in the right ovary. There is a simple appearing follicular cysts in the right ovary measured 1.7 x 1.3 x 1.7 cm. LEFT ADNEXA: The left ovary appears normal. The left ovary measures 5.1 x 4.5 x 3.7 cm. Documented Doppler flow in the left ovary. There is a simple appearing follicular cyst in the left ovary measuring 2.9 x 2.1 x 2.7 cm. OTHER: There is no free fluid in the pelvis. The urinary bladder appears normal. Procedure Note Ciaran Márquez MD - 01/18/[address] [address] Procedure: US PELVIC NON OB COMP TV Indication: ovarian cyst, 2.5cm cyst on CT, pain in LLQ Comparison: CT abdomen and pelvis 01/18/2025. Technique: Transvaginal ultrasound performed of the pelvis. Color Dopplerand spectral Doppler were performed of the ovaries. Findings: UTERUS: The uterus is anteverted. It measures 8.3 x 3.7 x 4.8 cm.Nabothian cysts. The endometrium measures 0.65 cm. RIGHT ADNEXA: The right ovary appears normal. The right ovary measures 4.3 x 2.6 x 3.4cm. Documented Doppler flow in the right ovary. There is a simpleappearing follicular cysts in the right ovary measured 1.7 x 1.3 x 1.7cm. LEFT ADNEXA: The left ovary appears normal. The left ovary measures 5.1 x 4.5 x 3.7 cm.Documented Doppler flow in the left ovary. There is a simple appearingfollicular cyst in the left ovary measuring 2.9 x 2.1 x 2.7 cm. OTHER: There is no free fluid in the pelvis. The urinary bladder appearsnormal. Impression: 1. No acute findings in the pelvis. Documented Doppler flow within bothovaries. 2. Simple appearing bilateral follicular cysts measuring up to 2.9 cm.No specific follow-up is required. Referred By: Interpreted By: Ciaran Márquez MD, 01/18/2025 12:32 PM [facility] Final Resul t * CT ABD+PEL KIDNEY STONE (01/18/2025 10:36 AM MAORI PHYSIOTHERAPIST) Anatomical Region Laterality Modality Abdomen Computed Tomogra phy 01/18/2025 10:3 7 AM MAORI PHYSIOTHERAPIST Impressions 01/18/2025 10:41 AM MAORI PHYSIOTHERAPIST IMPRESSION: No acute inflammatory changes are present within the abdomen or pelvis. Bilateral nonobstructive nephrolithiasis. No hydronephrosis or hydroureter. Bilateral ovarian cysts are present. These can be seen normally in a patient of menstrual age. Referred By: Interpreted By: Carlos Moore MD, 01/18/2025 10:37 AM Narrative 01/18/2025 10:41 AM MAORI PHYSIOTHERAPIST [address] [address] Procedure(s): CT ABD+PEL KIDNEY STONE Date of service: 01/18/2025 10:22 AM Provided clinical information: 44 years, Female, left flank pain; stone suspected eft sided abd pain that started yesterday. Pt states that she is also had some vomiting. Pt states that it feels like a kidney stone. Procedure and materials: Helical images of the abdomen and pelvis are obtained from superior to the diaphragm to inferior to the pubic symphysis. Sagittal and coronal reconstructions are obtained. A dose lowering technique was used for this procedure, which may include, but is not limited to, dose reduction technique, automated exposure control, iterative reconstruction, ALARA (As Low As Reasonably Achievable), or Image Gently techniques. Comparison studies: December 25, 2024. Findings: CT abdomen and pelvis: Lung Bases: No pleural effusions or consolidations. Adrenals:Unremarkable Spleen:No splenomegaly. Gallbladder and Biliary system:Prior cholecystectomy. Pancreas:Unremarkable Liver:Unremarkable Kidneys:Bilateral nonobstructive nephrolithiasis is present. No evidence of hydronephrosis. No hydroureter. No ureterolithiasis is present. Bowel:No pericolonic inflammatory changes are present. No small bowel dilatation. Aorta and Retroperitoneum:Aorta is not aneurysmal.No enlarged lymph nodes. Pelvic Organs:Urinary bladder is unremarkable. Uterine contour is unremarkable. Tampon is present in the vaginal vault. Suspected left ovarian cyst measuring 2.5 cm. Suspected 1.5 cm right ovarian cyst is present. These can be seen normally in a patient of menstrual age. Bone/Musculoskeletal: No aggressive osseous lesions. Free fluid: None Procedure Note Carlos Moore MD - 01/18/[address] [address] Procedure(s): CT ABD+PEL KIDNEY STONE Date of service: 01/18/2025 10:22 AM Provided clinical information: 44 years, Female, left flank pain; stonesuspected eft sided abd pain that started yesterday. Pt states that she isalso had some vomiting. Pt states that it feels like a kidney stone. Procedure and materials: Helical images of the abdomen and pelvis areobtained from superior to the diaphragm to inferior to the pubicsymphysis. Sagittal and coronal reconstructions are obtained. A doselowering technique was used for this procedure, which may include, but isnot limited to, dose reduction technique, automated exposure control,iterative reconstruction, ALARA (As Low As Reasonably Achievable), orImage Gently techniques. Comparison studies: December 25, 2024. Findings: CT abdomen and pelvis: Lung Bases: No pleural effusions or consolidations. Adrenals:Unremarkable Spleen:No splenomegaly. Gallbladder and Biliary system:Prior cholecystectomy. Pancreas:Unremarkable Liver:Unremarkable Kidneys:Bilateral nonobstructive nephrolithiasis is present. No evidenceof hydronephrosis. No hydroureter. No ureterolithiasis is present. Bowel:No pericolonic inflammatory changes are present. No small boweldilatation. Aorta and Retroperitoneum:Aorta is not aneurysmal.No enlarged lymphnodes. Pelvic Organs:Urinary bladder is unremarkable. Uterine contour isunremarkable. Tampon is present in the vaginal vault. Suspected leftovarian cyst measuring 2.5 cm. Suspected 1.5 cm right ovarian cyst ispresent. These can be seen normally in a patient of menstrual age. Bone/Musculoskeletal: No aggressive osseous lesions. Free fluid: None IMPRESSION: No acute inflammatory changes are present within the abdomen or pelvis. Bilateral nonobstructive nephrolithiasis. No hydronephrosis orhydroureter. Bilateral ovarian cysts are present. These can be seen normally in apatient of menstrual age. Referred By: Interpreted By: Carlos Moore MD, 01/18/2025 10:[address] [address] Final Resul t * POCT urine (01/18/2025 10:10 AM MAORI PHYSIOTHERAPIST) Only the most recent of3 resultswithin the time period is included. URINE HCG TEST NEGATIVE Internal Control: VALID us [facility] POINT OF CARE TEST ORDERABL ES Final Result * (ABNORMAL) URINALYSIS (01/18/2025 10:08 AM MAORI PHYSIOTHERAPIST) Only the most recent of4 resultswithin the time period is included. SPECIMEN TYPE URINE CLEAN CATCH 01/18/2025 10:10 AM [facility] COLOR (U) YELLOW 01/18/2025 10:35 AM [facility] TRANSPARENCY CLEAR 01/18/2025 10:35 AM [facility] SPECIFIC GRAVITY (U) 1.040(H) 1.001 - 1.030 01/18/2025 10:35 AM [facility] U PH 6.0 5.0 - 9.0 01/18/2025 10:35 AM [facility] LEUKOCYTES (U) NEGATIVE NEGATIVE 01/18/2025 10:35 AM [facility] NITRITES NEGATIVE NEGATIVE 01/18/2025 10:[address] [facility] PROTEIN RANDOM (U) 10 <30 MG/DL 01/18/2025 10:35 AM [facility] GLUCOSE (U) NORMAL NORMAL MG/DL 01/18/2025 10:35 AM [facility] KETONES MG/DL (U) TRACE(A) NEGATIVE MG/DL 01/18/2025 10:35 AM [facility] UROBILINOGEN NORMAL NORMAL MG/DL 01/18/2025 10:35 AM [facility] BILIRUBIN (U) NEGATIVE NEGATIVE MG/DL 01/18/2025 10:35 AM [facility] BLOOD (U) NEGATIVE NEGATIVE 01/18/2025 10:35 AM [facility] URINE SPECIMEN OBTAINED BY CLEAN CATCH PROCEDURE / Unknown 01/18/2025 10:08 AM [facility] us [facility] URINE ORDERABLES Final Resu lt [facility] [address] [place] [address], * (ABNORMAL) COMPREHENSIVE METABOLIC PANEL (01/18/2025 10:08 AM MAORI PHYSIOTHERAPIST) Only the most recent of4 resultswithin the time period is included. GLUCOSE 152(H) 70 - 99 MG/DL 01/18/2025 10:43 AM [facility] BUN 14 7 - 18 MG/DL 01/18/2025 10:43 AM [facility] CREATININE S/P/B 0.90 0.55 - 1.02 MG/DL 01/18/2025 10:43 AM [facility] SODIUM S/P/B 135(L) 136 - 145 MMOL/L 01/18/2025 10:43 AM [facility] POTASSIUM S/P/B 4.3 3.5 - 5.1 MMOL/L 01/18/2025 10:43 AM [facility] CHLORIDE S/P/B 104 97 - 115 MMOL/L 01/18/2025 10:43 AM [facility] CO2 27.5 21 - 32 MMOL/L 01/18/2025 10:43 AM [facility] CALCIUM S/P/B 9.5 8.5 - 10.1 MG/DL 01/18/2025 10:43 AM [facility] BILIRUBIN TOTAL S/P/B 0.4 0.2 - 1.2 MG/DL 01/18/2025 10:43 AM [facility] Comment: THIS ASSAY IS NOT RECOMMENDED FOR PATIENTS UNDERGOING TREATMENT WITH ELTROMBOPAG DUE TO THE POTENTIAL FOR FALSELY ELEVATED RESULTS. TOTAL PROTEIN S/P/B 8.8(H) 6.4 - 8.2 G/DL 01/18/2025 10:43 AM [facility] ALBUMIN S/P/B 4.0 3.4 - 5.0 G/DL 01/18/2025 10:43 AM [facility] AST 23 15 - 37 U/L 01/18/2025 10:43 AM [facility] ALT 43 14 - 55 U/L 01/18/2025 10:43 AM [facility] ALKALINE PHOSPHATASE S/P/B 101 50 - 136 U/L 01/18/2025 10:43 AM [facility] ANION GAP 3.5 2 - 10 MMOL/L 01/18/2025 10:43 AM [facility] BUN CREATININE RATIO 15.6 6 - 26 01/18/2025 10:43 AM [facility] A/G RATIO 0.8(L) 1.0 - 2.0 RATIO 01/18/2025 10:43 AM [facility] GFR ESTIMATE 80(L) >90 ML/MIN/1.7 3 M2 01/18/2025 10:43 AM [facility] Comment: NOTE: eGFR is not calculated for patients <18 years of age or gender unknown. This is an estimated GFR calculation using the new CKD EPI creatinine equation without race and so does not require a correction factor for race. This estimated GFR should not be used for calculating drug doses. 01/18/2025 10:0 8 AM MAORI PHYSIOTHERAPIST us [facility] Final Resul t [facility] [address] [place] [address], * (ABNORMAL) CBC W/DIFF AUTOMATED (01/18/2025 10:08 AM MAORI PHYSIOTHERAPIST) Only the most recent of4 resultswithin the time period is included. WBC 22.23(H) 4.5 - 11.0 x10'3/uL 01/18/2025 10:32 AM [facility] RBC 5.65(H) 4.20 - 5.40 x10'6/uL 01/18/2025 10:32 AM [facility] HGB 16.9(H) 12.0 - 16.0 G/DL 01/18/2025 10:32 AM [facility] HCT 51.5(H) 38.0 - 48.0 % 01/18/2025 10:32 AM [facility] MCV 91.2 81.0 - 99.0 FL 01/18/2025 10:32 AM [facility] MCH 29.9 27.0 - 31.0 PG 01/18/2025 10:32 AM [facility] MCHC 32.8 32.0 - 36.0 G/DL 01/18/2025 10:32 AM [facility] RDW 14.6(H) 11.5 - 14.5 % 01/18/2025 10:32 AM [facility] PLT 415(H) 130 - 400 x10'3/uL 01/18/2025 10:32 AM [facility] MPV 9.0(L) 9.3 - 12.2 FL 01/18/2025 10:32 AM [facility] DIFFERENTIAL TYPE AUTOMATED DIFFERENTIAL 01/18/2025 10:32 AM [facility] NEUTROPHILS % 78.3 % 01/18/2025 10:32 AM [facility] LYMPHOCYTES % 12.7 % 01/18/2025 10:32 AM [facility] MONOCYTES % 5.6 % 01/18/2025 10:32 AM [facility] EOSINOPHILS 2.4 % 01/18/2025 10:32 AM [facility] BASOPHILS 0.4 % 01/18/2025 10:32 AM [facility] IMMATURE GRANS % 0.6 % 01/19/20 10:32 AM [facility] ABS. NEUTROPHILS 17.39(H) 1.80 - 7.70 x10'3/uL 01/18/2025 10:32 AM [facility] ABS. LYMPHOCYTES 2.82 1.00 - 4.80 x10'3/uL 01/18/2025 10:32 AM [facility] ABS. MONOCYTES 1.25(H) 0.24 - 0.86 x10'3/uL 01/18/2025 10:32 AM [facility] ABS. EOSINOPHILS 0.53(H) 0.04 - 0.36 x10'3/uL 01/18/2025 10:[address] [facility] ABS. BASOPHILS 0.10(H) 0.01 - 0.08 x10'3/uL 01/18/2025 10:[address] [facility] ABS. IMMATURE GRANULOCYTES 0.14 0.00 - 0.49 x10'3/uL 01/18/2025 10:[address] [facility] 01/18/2025 10:0 8 AM MAORI PHYSIOTHERAPIST [facility] Final Resul t [facility] [address] [place] [address], [place] [phone] * CT ABD+PEL W CON (12/25/2024 5:06 PM MAORI PHYSIOTHERAPIST) Anatomical Region Laterality Modality Abdomen Computed Tomogra phy 12/25/2024 5:28 PM MAORI PHYSIOTHERAPIST Impressions 12/25/2024 5:34 PM MAORI PHYSIOTHERAPIST IMPRESSION: 1. Bilateral nonobstructing nephrolithiasis measuring up to 14 x 7 mm on the left. Chronic left renal atrophy with multifocal cortical thinning/scarring. 2. Bilateral ovarian cysts measuring up to 2.8 cm. 3. Atherosclerosis. 4. Please see above for additional chronic, incidental, and nonemergent findings elsewhere. Referred By: Interpreted By: Yony Cornejo MD, 12/25/2024 5:28 PM Narrative 12/25/2024 5:34 PM MAORI PHYSIOTHERAPIST [facility] [address] [place], [place] [address] EXAMINATION: CT Abdomen and Pelvis with contrast CLINICAL HISTORY: Abdominal pain. Recent left-sided lithotripsy. COMPARISON: 11/13/2024 TECHNIQUE: Computed tomography of the abdomen and pelvis was obtained after administration of intravenous contrast, 100 mL of Isovue 300, without immediate complication according to routine protocol. A dose lowering technique was used for this procedure, which may include, but is not limited to, dose reduction technique, automated exposure control, the use of iterative reconstruction, and ALARA (As Low As Reasonably Achievable) / Image Gently techniques. FINDINGS: Images of the lower chest reveal no definite acute findings. Status post cholecystectomy with likely physiologic ectasia of the extrahepatic bile ducts. Tiny hypodensity in the right lobe of liver, probably cyst or hemangioma. Spleen, pancreas, and adrenal glands are unremarkable. Redemonstration of 14 x 7 mm nonobstructing left renal lower pole calculus. Additional tiny bilateral nonobstructing calculi evident. Stable mild left renal atrophy. Scattered multifocal renal cortical thinning/scarring. No hydronephrosis or hydroureter. Scattered atherosclerotic plaque and calcification noted along the abdominal aorta. No bulky mesenteric or retroperitoneal lymphadenopathy. Mild distention of the stomach. Small bowel loops are nondilated. Appendix not well visualized. Scattered solid feces in the colon. No findings of bowel obstruction. No free fluid or free air in the abdomen. Bilateral 2.8 cm. Bladder underdistended. No definite calculi seen within the bladder lumen. Tampon noted within the vagina. Sigmoid colon and rectum are unremarkable. No pelvic ascites. No bulky pelvic or inguinal lymphadenopathy. Osseous structures reveal no definite acute findings. Degenerative changes. Procedure Note Yony Cornejo MD - 12/25/2024 [place] [address] EXAMINATION: CT Abdomen and Pelvis with contrast CLINICAL HISTORY: Abdominal pain. Recent left-sided lithotripsy. COMPARISON: 11/13/2024 TECHNIQUE: Computed tomography of the abdomen and pelvis was obtainedafter administration of intravenous contrast, 100 mL of Isovue 300,without immediate complication according to routine protocol. A dose lowering technique was used for this procedure, which may include,but is not limited to, dose reduction technique, automated exposurecontrol, the use of iterative reconstruction, and ALARA (As Low AsReasonably Achievable) / Image Gently techniques. FINDINGS: Images of the lower chest reveal no definite acute findings. Status post cholecystectomy with likely physiologic ectasia of theextrahepatic bile ducts. Tiny hypodensity in the right lobe of liver,probably cyst or hemangioma. Spleen, pancreas, and adrenal glands areunremarkable. Redemonstration of 14 x 7 mm nonobstructing left renal lowerpole calculus. Additional tiny bilateral nonobstructing calculi evident.Stable mild left renal atrophy. Scattered multifocal renal corticalthinning/scarring. No hydronephrosis or hydroureter. Scatteredatherosclerotic plaque and calcification noted along the abdominal aorta.No bulky mesenteric or retroperitoneal lymphadenopathy. Mild distention of the stomach. Small bowel loops are nondilated. Appendixnot well visualized. Scattered solid feces in the colon. No findings ofbowel obstruction. No free fluid or free air in the abdomen. Bilateral 2.8 cm. Bladder underdistended. No definite calculi seen withinthe bladder lumen. Tampon noted within the vagina. Sigmoid colon andrectum are unremarkable. No pelvic ascites. No bulky pelvic or inguinallymphadenopathy. Osseous structures reveal no definite acute findings. Degenerativechanges. IMPRESSION: 1. Bilateral nonobstructing nephrolithiasis measuring up to 14 x 7 mm onthe left. Chronic left renal atrophy with multifocal corticalthinning/scarring. 2. Bilateral ovarian cysts measuring up to 2.8 cm. 3. Atherosclerosis. 4. Please see above for additional chronic, incidental, and nonemergentfindings elsewhere. Referred By: Interpreted By: Yony Cornejo MD, 12/25/2024 5:28 PM Senthil Thorpe MOLD DUMPER CT Final Result * (ABNORMAL) CULTURE URINE (12/25/2024 3:53 PM MAORI PHYSIOTHERAPIST) SPEC DESCRIPTION URINE CLEAN CATCH 12/25/2024 3:[address] [facility] SPECIAL REQUESTS NO SPECIAL REQUEST 12/25/2024 3:[address] [facility] CULTURE RESULT 10,000-49,0 00 COL/ML ESCHERICHIA COLI (A) 12/27/2024 7:[address] [facility] URINE SPECIMEN OBTAINED BY CLEAN CATCH PROCEDURE / Unknown 12/25/2024 3:53 PM MAORI PHYSIOTHERAPIST 12/25/2024 3:57 PM MAORI PHYSIOTHERAPIST Narrative Organism Antibiotic Method Susceptibility Escherichia coli AMPICILLIN BITA (VITEK) <=2: Sensitive Escherichia coli AMPICILLIN/SULBACTAM BITA (VITEK) <=2: Sensitive Escherichia coli CEFTRIAXONE BITA (VITEK) <=1: Sensitive Escherichia coli CEFTAZIDIME BITA (VITEK) <=1: Sensitive Escherichia coli CEFAZOLIN BITA (VITEK) <=4: Sensitive Escherichia coli ESBL BITA (VITEK) NEG: Sensitive Escherichia coli NITROFURANTOIN BITA (VITEK) <=16: Sensitive Escherichia coli GENTAMICIN BITA (VITEK) <=1: Sensitive Escherichia coli LEVOFLOXACIN BITA (VITEK) <=0.12: Sensitive Escherichia coli PIPRACIL/TAZO BITA (VITEK) <=4: Sensitive Escherichia coli TRIMETH-SULFAMETH. BITA (VITEK) <=20: Sensitive Senthil Thorpe NP MICROBIOLOGY - GENERAL ORDERAB LES Final Result Performing Organization Address [facility] Co de Phone Number [facility] [address] [place] [address], [place] [phone] * LIPASE (12/25/2024 3:38 PM MAORI PHYSIOTHERAPIST) Only the most recent of2 resultswithin the time period is included. LIPASE 32 13 - 75 UNITS/L 12/25/2024 4:[address] [facility] 12/25/2024 3:38 PM MAORI PHYSIOTHERAPIST us Senthil Thorpe NP LABORATORY Final Result Performing Organization Address [facility]/ZIP Co de Phone Number [facility] [address] [place] [address], [place] [phone] * CT ABD+PEL WO CON (11/13/2024 2:20 PM MAORI PHYSIOTHERAPIST) Only the most recent of2 resultswithin the time period is included. Anatomical Region Laterality Modality Abdomen Computed Tomogra phy 11/13/2024 2:22 PM MAORI PHYSIOTHERAPIST Impressions 11/13/2024 2:33 PM MAORI PHYSIOTHERAPIST IMPRESSION: 1. No obstructive stone or other acute abnormality identified. 2. Nonobstructive bilateral nephrolithiasis. 3. Bilateral ovarian cysts. 4. Other chronic or nonurgent findings as described above. Referred By: Interpreted By: Nathan Welch MD, 11/13/2024 2:22 PM Narrative 11/13/2024 2:33 PM MAORI PHYSIOTHERAPIST [address] [address] Examination: CT ABD+PEL WO CON Clinical history: Bilateral flank pain Comparison: 01/09/2024 DATE/TIME: 11/13/2024 2:13 PM Technique: Multiplanar CT images of the abdomen and pelvis were obtained without IV contrast. Oral contrast: None. A dose lowering technique was used for this procedure, which may include, but is not limited to, dose reduction technique, automated exposure control, the use of iterative reconstruction, and ALARA (As Low As Reasonably Achievable) / Image Gently techniques. Findings: Tiny low-density right hepatic lobe lesion, too small to characterize. Liver upper limits of normal size. Spleen is normal size. Pancreas is not well evaluated without IV contrast. Cholecystectomy. Bile ducts upper limits of normal size. No adrenal mass. Mild left renal atrophy, stable. There is a nonobstructive left renal stone measuring 1.3 cm. Tiny nonobstructive right renal stone. No obstructive stone or hydronephrosis. Bladder is decompressed and not well evaluated. Stable 4.5 cm left ovarian cyst. New 2.9 cm right ovarian cysts. Recommend follow-up ultrasound as discussed on the prior exam report. Abdominal aorta is normal caliber. No free air or fluid. Calcified pelvic phleboliths. No bowel obstruction. No bowel wall thickening. Appendix is not identified but no evidence for appendicitis. No acute osseous abnormality. Procedure Note Nathan Welch MD - 11/13/2024 [facility] [address] [place], [place] [address] Examination: CT ABD+PEL WO CON Clinical history: [...] Welch MD, 11/13/2024 2:22 PM Priti Paredes MANAGER PHARMACY CT Final Resul t from Last 3 Months Insurance [facility] Advance Directives * Full Code (Latest Code Status on File) Date Activated Date Inactivated Comments 03/09/2023 12:43 AM 03/09/2023 6:15 PM Care Teams Technology Architect Relationship Specialty Start Date End Date Dino Roper DO [address] [place] [id number] PCP - General FAMILY PRACTICE 01/23/23 David Bell MD [address] [place] [address], [address] [place] [address] Referring Physician MEDICAL ONCOLOGY 03/01/23 Danilo Dolan MD [address] [address] NEUROLOGICAL SURGERY 03/01/23 Harvey Liriano MD [address] [address] CARDIOVASCULAR DISEASE 03/07/23
--- OUTSIDE RECORDS SUMMARY | 2025-02-05 00:53 | XMS_ITS | Clinical Summary ---
Author Organization [facility] Address [address] [place] [address] Care Team Providers Care Basketballs And Footballs Reverser Name Role Phone Unavailable Primary Care Provider Unavailabl e Encounters Date Type Department Care Team Description 01/27/2025 External Device Data ST[facility] ABSTRACTION Provider, Abstract 01/27/2025 External Device Data [facility] ABSTRACTION Provider, Abstract 01/24/2025 External Device Data [facility] ABSTRACTION Provider, Abstract 01/23/2025 External Device Data [facility] ABSTRACTION Provider, Abstract 01/21/2025 External Device Data [facility] ABSTRACTION Provider, Abstract 01/06/2025 External Device Data [facility] ABSTRACTION Provider, Abstract 12/30/2024 External Device Data [facility] ABSTRACTION Provider, Abstract 12/10/2024 External Device Data ST[facility] ABSTRACTION Provider, Abstract 12/10/2024 External Device Data ST[facility] ABSTRACTION Provider, Abstract 11/27/2024 7:30 AM SEROLOGIST Ancillary Procedure [place] [address] [place] [address] Sameer Florez MD History of fracture; Lumbar radiculopathy 11/27/2024 7:00 AM SEROLOGIST Ancillary Procedure [place] [address] [place] [address] Sameer Florez MD History of fracture; Cervical radiculopathy from Last 3 Months Social History Tobacco Use Types Packs/Day Years Used Date Smoking Tobacco: Never Assessed Comments Unknown Sex and Gender Information Value Date Recorded Sex Assigned at Not on file Legal Sex Female 5:32 PM SEROLOGIST Gender Identity Not on file Sexual Orientation Not on file Plan of Treatment Health Maintenance Due Date Last Done Comments Pre-Diabetes and Diabetes Screening 1979 DTAP/TDAP/TD VACCINES (1 - Tdap) 1998 HEPATITIS B VACCINES (1 of 3 - 19+ 3-dose series) 1998 PAP SMEAR 2009 BREAST CANCER SCREENING 2019 INFLUENZA VACCINE [...] LUMBAR WO CONTRAST Routine 11/27/2024 7:45 AM SEROLOGIST History of fracture Lumbar radiculopathy MRI CERVICAL WO CONTRAST Routine 11/27/2024 7:14 AM SEROLOGIST History of fracture Cervical radiculopathy from Last 3 Months Results * MRI LUMBAR WO CONTRAST (11/27/2024 7:45 AM SEROLOGIST) Anatomical Region Laterality Modality Spine Magnetic Resonan ce 11/27/2024 7:45 AM SEROLOGIST Impressions 11/27/2024 7:53 AM SEROLOGIST IMPRESSION: 1. Mild degenerative change without significant central canal or neural foraminal narrowing seen. A left paracentral annular fissure is apparent at L5-S1. Narrative 11/27/2024 7:53 AM SEROLOGIST EXAM: MRI LUMBAR WO CONTRAST DATE: 11/27/2024 [...] paracentral annular fissure is apparent at L5-S1. [facility] Florez MD MR ORDERABLES Final Result * MRI CERVICAL WO CONTRAST (11/27/2024 7:14 AM SEROLOGIST) Anatomical Region Laterality Modality Spine Magnetic Resonan ce 11/27/2024 7:15 AM SEROLOGIST Impressions 11/27/2024 7:33 AM SEROLOGIST IMPRESSION: Susceptibility artifact associated with fusion from C5 through C7. At C5/6 and C6/7, uncovertebral joint hypertrophy mildly narrows the left neural foramen. Narrative 11/27/2024 7:33 AM SEROLOGIST EXAM: MRI CERVICAL WO CONTRAST DATE: 11/27/2024 [...] hypertrophy mildly narrows the left neural foramen. Sameer Florez MD MR ORDERABLES Final Result from Last [address] [place] [address] [facility]
--- OUTSIDE RECORDS SUMMARY | 2025-02-05 00:53 | XMS_ITS | Continuity of Care Document ---
Author Organization [facility] Address [address] [place] [address] Phone Care Team Providers Care Nurse Orthopedic Name Role Phone Raz Zaldivar PT Unavailable Unavailable Procedures Procedure Date Therapeutic Activities Neuromuscular Re-Ed Manual Therapy Hot or Cold Pack Therapeutic Activities Neuromuscular Re-Ed Hot or Cold Pack Electrical Stimulation PT Evaluation Low Complexity Hot or Cold Pack Therapeutic Activities Advance Directives Directive Yes / No Effective Date File Name No Information Encounters Encounter Description Practice Location Reason(s) For Visit Diagnoses Date Provider Providers Copied on Encounter [facility], [place], [place], [id number], tel:[phone] [place] No Information 2 Zen Crandall. . [facility], [place], [place], [id number], tel:[phone] [email or web address] No Information 2 Zen Crandall. . Referring Provider: Cody Roper, [facility] [address], [place], [address]. tel:[phone] [facility], [place], [place], [id number], tel:[phone] [place] No Information 0 2 Zenbarrett Crandall. . Referring Provider: Cody Roper, [address] [facility] [address], [place], [address]. tel:[phone] [employer] [place], [address], [place], [place], [id number], tel:[phone] [place] No Information 2 Zenbarrett Crandall. . Referring Provider: Cody Roper, [address], [place], [address]. tel:[phone] Family History Family Member Type Diagnosis Age At Onset No Information Payers Payer name Insurance type Covered green party ID Authorantonio ramirez(s) [facility] [place] [id number] Social History Type Description Quantity Date Captured Comments Sex Female Smoking Status No Information Chief Complaint And Reason For Visit No Information Reason For Referral Reason For Referral No Information Plan Of Treatment Date Type Action Status Goal Tobacco cessation counseling completed Goal Tobacco Cessation Counseling completed History Of Present Illness Encounter Date Complaint History Of Prese nt Illness No Information Functional Status Date Functional Assessmen t No Information Instructions Date Instruction Additional Infor sapphire Giving encouragement to exercise Related to Overweight Giving encouragement to exercise Related to Overweight Assessments Type Assessment Date No Information Patient Care Teams Name Effective Dates (start - stop) Status Members No Information
--- NOTE | 2025-02-05 06:10 | WPDHPUPDATE1 ---
History and Physical Update Update Date/Time: 02/05/25 06:10 History and Physical has been reviewed, including an updated exam of the patient. There are NO changes in the patient's condition. Risks, benefits, and alternatives have been discussed and questions answered. Patient agrees to proceed with procedure.
[2025-02-05] MEDS: LACTATED RINGERS 1,000 ML 30 ML IV CONT (08:00)
--- NOTE | 2025-02-05 08:13 | P.PNAN_ITS ---
Anes - Initial Pre Proc Eval Procedure: Operation Date: 02/05/25 09:00 Proposed Procedures p Cystoscopy, Left Ureteroscopy, Possible Left Retrograde Pyelogram, Possible Left Stone Extraction, Possible Left Stent Placement, Laser Lithotripsy of Bladder Stone - Sher Mattson MD Date/Time: 02/05/25 08:13 Surgeon: Sher Mattson MD Pre Op Diagnosis: left kidney stone Patient Data Age: 44 Gender: F Height: 1.57 m Weight: 77.9 kg Last Vital Signs Temp 36.7 C 02/05/25 07:30 Pulse 82 02/05/25 07:30 Resp 14 02/05/25 07:30 BP 112/71 02/05/25 07:30 Pulse Ox 100 02/05/25 07:30 O2 Del Method Room Air 02/05/25 07:30 Allergies Allergy/AdvReac Type Severity Reaction Status Date / Time No Known Allergies Allergy Verified 02/05/25 07:36 Home Medications ?Medication ?Instructions ?Recorded ?Confirmed ?Type dicyclomine 20 mg tablet 20 mg PO TID PRN helps stomach 02/14/24 01/26/25 History eluxadoline 100 mg tablet (Viberzi) 100 mg PO BID 02/14/24 01/26/25 History fluticasone 250 mcg-salmeterol 50 1 ea inhalation BID 02/14/24 02/05/25 History mcg/dose blistr powdr for inhalation metformin 500 mg tablet,extended 500 mg PO BID 02/14/24 01/26/25 History release 24 hr buspirone 15 mg tablet 15 mg PO TID 09/26/24 02/05/25 History hydrocodone 5 mg-acetaminophen 325 1 - 2 tablet PO Q6H PRN pain #20 12/12/24 01/26/25 Rx mg tablet tabs hydrocodone 5 mg-acetaminophen 325 1 tablet PO Q8H PRN pain #7 tabs 12/23/24 01/26/25 Rx mg tablet dicyclomine 20 mg tablet 20 mg PO BID PRN abdominal pain 01/17/25 01/26/25 Rx #10 tabs pantoprazole 40 mg tablet,delayed 40 mg PO HS 4 weeks #28 tabs 01/17/25 01/26/25 Rx release Patient hx anesthesia problems: none Family hx anesthesia problems: none Results Review: All pre-operative results and documents have been reviewed as part of the pre- operative evaluation. [facility] Past Medical History Medical History Leukocytosis Chronic elevation with hematology consult in past. 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 Surgical History Surgical History History of appendectomy History of cholecystectomy History of cervical spinal surgery (03/08/23) anterior cervical discectomy and fusion Family History Family History Father Hypertension Patient's father is in good health Cerebrovascular accident Family history of heart disease in male family member before age 55 Mother Patient's mother is in good health Family history of diabetes mellitus in first degree relative Sibling Family history of diabetes mellitus in first degree relative Social History Social History Social History: Surrogate medical decision maker: Chinmay Muñoz, spouse ([phone]). Code status: Full code. Smoking packs per day: 1 Smoking cigarettes per day: 20.0 Years smoked: 30 Smoking pack-years: 30.00 Smoking status: Current every day smoker Tobacco type: cigarettes Second hand tobacco smoke exposure: Yes Alcohol intake: never Alcohol use details: rarely drinks, a couple time a month Substance use: current Substance use type: marijuana Other substance usage details: hs for insomnia Last use: Marijuana 10/14/24 Do You Feel Safe in your Home?: Yes Lack of Transportation: No Lack of Food: Never True Current Housing: I Have Housing Concerned About Future Housing: No Difficulty Paying Gas/Electric Bills: No Difficulty Paying for Meds: No Currently Unemployed: No Education: Grade School Difficulty w/ Childcare or Family Care: No Living arrangements: with family Additional living arrangements comments: Lives with father and . 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 Spiritual care concerns: No Agree to blood products: Yes Anes - Eval Final PreProcedure Day of Procedure 02/05/25 08:13 Patient weight: obese Heart: regular rate and rhythm Lungs: decreased breath sounds Airway: Mallampati scale class II Neurological: alert and oriented Last oral intake: >/= 8 hours ASA classification: III Emergent: no Anesthetic plan: proceed Anesthesia type and monitoring: general LMA and standard monitoring Results Review: All pre-operative results and documents have been reviewed as part of the pre- operative evaluation. Informed Consent: The patient's anesthetic plan and its attendant risks and benefits were discusse d with the patient/family/POA. Questions were solicited and answers provided to the satisfaction of the patient/family/POA.
[2025-02-05] MEDS: fentaNYL CITRATE INJ (*CRX) 100 MCG/2 ML VIAL 50 MCG IV PUSH (08:20)
[2025-02-05] MEDS: ceFAZolin 2 GM/D5W 50 ML 2 GM/50 ML BAG IVPB (08:48)
[2025-02-05] MEDS: LIDOCAINE 2% GEL UROJET 10 ML PKG MUCOUS MEM (08:58)
[2025-02-05] MEDS: fentaNYL CITRATE INJ (*CRX) 100 MCG/2 ML VIAL 25 MCG IV PUSH ×2 (09:49→09:59)
--- NOTE | 2025-02-05 09:51 | P.OP_ITS ---
Procedure Note - Detailed Date of Procedure 02/05/25 Pre-op Diagnosis Left kidney stone Post-op Diagnosis Same Procedure Performed Cystoscopy, left retrograde pyelography, left ureteroscopy with laser lithotripsy and stone extraction, left ureteral stent placement Surgeon Sher Mattson MD Anesthesia General Description of Procedure Patient brought the operative suite where she was prepped draped in routine sterile fashion while in dorsal lithotomy position after the uneventful induction of a general LMA anesthetic. Cystoscopy was undertaken with a 19 F rigid cystoscope. Bladder neck and urethra are endoscopically normal. Bladder mucosa is normal. There is no intravesical foreign body or neoplasm. She has a single orthotopic ureteral orifice bilaterally. A 0.035 in glidewire was advanced into the left renal pelvis and the distal ureter was dilated with an 8 F 10 F dilator. A 2nd safety wire was placed followed by a 11 F/13 F ureteral access sheath. Ureteroscopy was undertaken with a 7.5 F flexible ureteral scope. The stone in the lower pole that measures 14 mm is identified. It is pa rtially fragmented from prior ESWL. Complete dusting is undertaken using a 200 micron Fan fiber. It dusted quite nicely and all pieces were deemed to be 2 mm or less. There was 1 sizable piece, perhaps 2-3 mm which is extracted with a 1.9 F disposable stone basket. I performed retrograde pyelogram to ensure inspection of all calices. A 4.8 F variable length stent is positioned with the proximal coil in renal pelvis and distal coil in the bladder. Scopes and wires were removed. Drains Yes Packing No Pathology None sent Complications No immediate complications Condition Stable Disposition PACU
[2025-02-05] MEDS: oxyCODONE HCL (*CRX) 5 MG TAB IR PO (10:40)
== END 2025-02-05 11:12 | disposition home or self-care (01) ==
PROVIDERS: Visit Provider Urology
PROC: (CPT 52352; principal; 2025-02-05 09:00)
DX: N20.0 Calculus of kidney (principal); E78.5 Hyperlipidemia, unspecified; I10 Essential (primary) hypertension; J45.909 Unspecified asthma, uncomplicated; K58.9 Irritable bowel syndrome, unspecified; E28.2 Polycystic ovarian syndrome; D72.829 Elevated white blood cell count, unspecified; G47.00 Insomnia, unspecified; G89.29 Other chronic pain; M54.12 Radiculopathy, cervical region; F12.90 Cannabis use, unspecified, uncomplicated; F17.210 Nicotine dependence, cigarettes, uncomplicated; M19.90 Unspecified osteoarthritis, unspecified site; E66.9 Obesity, unspecified; Z68.31 Body mass index [BMI] 31.0-31.9, adult; Z79.891 Long term (current) use of opiate analgesic; Z79.51 Long term (current) use of inhaled steroids; Z79.84 Long term (current) use of oral hypoglycemic drugs; Z98.890 Other specified postprocedural states; Z98.1 Arthrodesis status; Z90.49 Acquired absence of other specified parts of digestive tract; Z96.0 Presence of urogenital implants; Z80.9 Family history of malignant neoplasm, unspecified; Z82.49 Family history of ischemic heart disease and other diseases of the circulatory system
CPT/HCPCS: 52356; 74420; 82365; 88300; A9270; C1769; C2617; J0690; J1100; J2250; J2405; J2704; J3010; J7120; Q9966

== ENCOUNTER 2025-02-17 13:54 | Outpatient (CLI) | payer BC, SELFPAY ==
--- NOTE | ~2025-02-17 | XR_ITS ---
Supine and upright views of the abdomen Clinical history: Kidney stone COMPARISON: 12/12/2024 Findings: Bowel gas pattern is nonspecific. No evidence for obstruction or free air. Left ureteral st ent in place. No abnormal mass lesion or calcification is seen. Osseous structures are intact. Impression: Left ureteral stent in place. No definite stones identified. Reviewed, dictated and finalized at [facility]. Impression: Left ureteral stent in place. No definite stones identified.
--- OUTSIDE RECORDS SUMMARY | 2025-02-17 15:15 | XMS_ITS | Clinical Summary ---
Author Organization [facility] Address [address] [place] [address] Care Team Providers Care Insurance Law Specialist Name Role Phone Roper, Dino SalgadoEmil Primary Care Provider [phone] David Bell MD Unavailable Danilo Dolan MD Unavailable [phone] Harvey Liriano MD Unavailable Unavailable Allergies Active [...] total) by mouth daily. 03/07/20 23 Active HYDROcodone-acetami nophen (NORCO) 5-325 MG tabletIndications:A cute Pain < 7 [...] available 1 each 12/25/19 25 026 Active ketorolac (TORADOL) 10 MG tablet Take 1 tablet (10 mg total) by mouth 4 (four) times daily as needed. 20 tablet 01/19/20 25 025 Active Problems Problem Noted Date Diagnosed Date Cervical radiculopathy 03/08/2023 Encounters Date Type Department Care Team Description 01/18/2025 9:58 AM WOOD FORM BUILDER - 01/18/2025 5:38 PM WOOD FORM BUILDER Emergency [facility] [place] [address] Marisela Houston PA Abdominal Pain Discharge Disposition: Home or Self Care (Routine Discharge) 01/18/2025 Travel 12/25/2024 2:46 PM WOOD FORM BUILDER - 12/25/2024 7:13 PM WOOD FORM BUILDER Emergency [facility] [place] [address] Radha Cortes NP Abdominal Pain Discharge Disposition: Home or Self Care (Routine Discharge) 12/25/2024 Travel from Last 3 Months Family History [...] money to buy more. Never true 03/08/20 23 Within the past 12 months, t he [...] place to sleep or slept in a senior care (including now)? No 03/08/2023 Comments No Sex and Gender Information Value Date Recorded Sex Assigned at Female 12/25/2024 1:18 PM WOOD FORM BUILDER Legal Sex Female 4:07 PM WOOD FORM BUILDER Gender Identity Not on file Sexual Orientation Not on file Last Filed Vital Signs Vital Sign Reading Time Taken Comments Blood Pressure 140/93 01/18/2025 5:36 PM WOOD FORM BUILDER Pulse 96 01/18/2025 5:36 PM WOOD FORM BUILDER Temperature 36.1 C (97 F) 01/18/2025 10:33 AM WOOD FORM BUILDER Respiratory Rate 16 01/18/2025 5:36 PM WOOD FORM BUILDER Oxygen Saturation 100% 01/18/2025 5:36 PM WOOD FORM BUILDER Inhaled Oxygen Concentration - - Weight 73.5 kg (162 lb) 01/18/2025 9:05 AM WOOD FORM BUILDER Height 157.5 cm (5' 2 ) 01/18/2025 9:05 AM WOOD FORM BUILDER Body Mass Index 29.63 01/18/2025 9:05 AM WOOD FORM BUILDER Plan of Treatment Health Maintenance Due Date [...] (2 - 2023-2 5 season) 2024 06/14/2021 HPV Vaccines Aged Out No longer eligi [...] Solis, RN Medical Devices Implanted Type Area Ferryboat Captain Device Identifier Shelf Expiration Date Model / Serial / Lot Graft Bone I Factor 2.5cc Allograft Putty Syringe - [id number] Implanted:Qt y: 1 on 03/08/2023 by Danilo Dolan MD at [facility] Bone N/A: Spine Cervical [employer] [id number] 07/19/2025 700-025 / / [id number] Zavation Cage [id number] Implanted:Qt y: 1 on 03/08/2023 by Danilo Dolan MD at [facility] Cage N/A: Spine Cervical 20-0607 / / Description:At c6-7 Zavation [id number] Cage Implanted:Qt y: 1 on 03/08/2023 by Danilo Dolan MD at [facility] Cage N/A: Spine Cervical -605 / / Description:At c5-6 Zavation 32mm Plate Implanted:Qt y: 1 on 03/08/2023 by Danilo Dolan MD at [facility] Plate N/A: Spine Cervical 30-0232 / / Zavation 4.0x12mm Vsd Screw Implanted:Qt y: 6 on 03/08/2023 by Danilo Dolan MD at [facility] Screw N/A: Spine Cervical [id number] / / Tissue Surgiflo 8ml - [id number] Implanted:Qt y: 1 on 03/08/2023 by Danilo Dolan MD at [facility] Sealant N/A: Spine Cervical [employer] 04/18/2024 [id number] / / [id number] Procedures Procedure Name Priority Date/Time Associated Diagnosis Comments LACTIC ACID W REFLEX (SEPSIS) TIMED 01/18/2025 1:27 PM WOOD FORM BUILDER US PELVIC NON OB COMP TV STAT 01/18/2025 12:42 PM WOOD FORM BUILDER LACTIC ACID W REFLEX (SEPSIS) STAT 01/18/2025 10:[address] ABD+PEL KIDNEY STONE STAT 01/18/2025 10:36 AM WOOD FORM BUILDER POCT URINE (BACK OFFICE) STAT 01/18/2025 10:10 AM WOOD FORM BUILDER HC URINALYSIS AUTO W/O MICRO STAT 01/18/2025 10:08 AM WOOD FORM BUILDER COMPREHENSIVE METABOLIC PANEL STAT 01/18/2025 10:08 AM WOOD FORM BUILDER CBC W/DIFF AUTOMATED STAT 01/18/2025 10:08 [address] ABD+PEL W CON STAT 12/25/2024 5:06 PM WOOD FORM BUILDER URINE BACTERIA CULTURE STAT 3:53 PM WOOD FORM BUILDER HC URINALYSIS AUTO W/O MICRO STAT 12/25/2024 3:53 PM WOOD FORM BUILDER POCT URINE (BACK OFFICE) STAT 12/25/2024 3:52 PM WOOD FORM BUILDER LIPASE STAT 12/25/2024 3:38 PM WOOD FORM BUILDER COMPREHENSIVE METABOLIC PANEL STAT 12/25/2024 3:38 PM WOOD FORM BUILDER CBC W/DIFF AUTOMATED STAT 12/25/2024 3:38 PM WOOD FORM BUILDER from Last 3 Months Results * LACTIC ACID W REFLEX (SEPSIS) (01/18/2025 1:27 PM WOOD FORM BUILDER) Only the most recent of2 resultswithin the time period is included. LACTIC ACID VENOUS 1.3 0.4 - 2.0 MMOL/L 01/18/2025 3:22 PM WOOD FORM BUILDER [facility] 01/18/2025 1:27 PM WOOD FORM BUILDER Marisela Houston PA LABORATORY Final Resul t [facility] [address] [place] [address], * US PELVIC TV NON OB (01/18/2025 12:42 PM WOOD FORM BUILDER) Anatomical Region Laterality Modality Pelvis Ultrasound 01/18/2025 12:3 2 PM WOOD FORM BUILDER Impressions 01/18/2025 12:35 PM WOOD FORM BUILDER Impression: 1. No acute findings in the pelvis. Documented Doppler flow within both ovaries. 2. Simple appearing bilateral follicular cysts measuring up to 2.9 cm. No specific follow-up is required. Referred By: Interpreted By: Ciaran Márquez MD, 01/18/2025 12:32 PM Narrative 01/18/2025 12:35 PM WOOD FORM BUILDER [address] [address] Procedure: US PELVIC NON OB COMP TV [...] Procedure Note Ciaran Márquez MD - 01/18/[address] [address] Procedure: US PELVIC NON OB COMP TV [...] By: Ciaran Márquez MD, 01/18/2025 12:32 PM us Marisela CANADA ULTRASOUND Final Resul t * CT ABD+PEL KIDNEY STONE (01/18/2025 10:36 AM WOOD FORM BUILDER) Anatomical Region Laterality Modality Abdomen Computed Tomogra phy 01/18/2025 10:3 7 AM WOOD FORM BUILDER Impressions 01/18/2025 10:41 AM WOOD FORM BUILDER IMPRESSION: No acute inflammatory changes are present within the abdomen or pelvis. Bilateral nonobstructive nephrolithiasis. No hydronephrosis or hydroureter. Bilateral ovarian cysts are present. These can be seen normally in a patient of menstrual age. Referred By: Interpreted By: Carlos Moore MD, 01/18/2025 10:37 AM Narrative 01/18/2025 10:41 AM WOOD FORM BUILDER [address] [address] Procedure(s): CT ABD+PEL KIDNEY STONE Date of [...] Procedure Note Carlos Moore MD - 01/18/[address] [address] Procedure(s): CT ABD+PEL KIDNEY STONE Date of [...] By: Carlos Moore MD, 01/18/2025 10:37 AM us [address]ela [place] CT Final Resul t * POCT urine (01/18/2025 10:10 AM WOOD FORM BUILDER) Only the most recent of2 resultswithin the time period is included. URINE HCG TEST NEGATIVE Internal Control: VALID us Marisela [place] POINT OF CARE TEST ORDERABL ES Final Result * (ABNORMAL) URINALYSIS (01/18/2025 10:08 AM WOOD FORM BUILDER) Only the most recent of2 resultswithin the time period is included. SPECIMEN TYPE URINE CLEAN CATCH 01/18/2025 10:10 AM WOOD FORM BUILDER [facility] COLOR (U) YELLOW 01/18/2025 10:35 AM WOOD FORM BUILDER [facility] TRANSPARENCY CLEAR 01/18/2025 10:35 AM [facility] SPECIFIC GRAVITY (U) 1.040(H) 1.001 - 1.030 01/18/2025 10:35 AM [facility] U PH 6.0 5.0 - 9.0 01/18/2025 10:35 AM [facility] LEUKOCYTES (U) NEGATIVE NEGATIVE 01/18/2025 10:35 AM [facility] NITRITES NEGATIVE NEGATIVE 01/18/2025 10:35 AM [facility] PROTEIN RANDOM (U) 10 <30 MG/DL 01/18/2025 10:35 AM [facility] GLUCOSE (U) NORMAL NORMAL MG/DL 01/18/2025 10:35 AM [facility] KETONES MG/DL (U) TRACE(A) NEGATIVE MG/DL 01/18/2025 10:35 AM [facility] UROBILINOGEN NORMAL NORMAL MG/DL 01/18/2025 10:35 AM [facility] BILIRUBIN (U) NEGATIVE NEGATIVE MG/DL 01/18/2025 10:35 AM [facility] BLOOD (U) NEGATIVE NEGATIVE 01/18/2025 10:35 AM [facility] URINE SPECIMEN OBTAINED BY CLEAN CATCH PROCEDURE / Unknown 01/18/2025 10:08 AM [facility] us Marisela [place] URINE ORDERABLES Final Resu lt [facility] [address] [place] [address], [place] [phone] * (ABNORMAL) COMPREHENSIVE METABOLIC PANEL (01/18/2025 10:08 AM WOOD FORM BUILDER) Only the most recent of2 resultswithin the time period is included. GLUCOSE 152(H) 70 - 99 MG/DL 01/18/2025 10:43 AM [facility] BUN 14 7 - 18 MG/DL 01/18/2025 10:43 AM [facility] CREATININE S/P/B 0.90 0.55 - 1.02 MG/DL 01/18/2025 10:43 AM [facility] SODIUM S/P/B 135(L) 136 - 145 MMOL/L 01/18/2025 10:43 AM [facility] POTASSIUM S/P/B 4.3 3.5 - 5.1 MMOL/L 01/18/2025 10:43 AM [facility] CHLORIDE S/P/B 104 97 - 115 MMOL/L 01/18/2025 10:43 AM [facility] CO2 27.5 21 - 32 MMOL/L 01/18/2025 10:43 AM [facility] CALCIUM S/P/B 9.5 8.5 - 10.1 MG/DL 01/18/2025 10:43 AM [facility] BILIRUBIN TOTAL S/P/B 0.4 0.2 - 1.2 MG/DL 01/18/2025 10:43 AM [facility] Comment: THIS ASSAY IS NOT RECOMMENDED FOR PATIENTS UNDERGOING TREATMENT WITH ELTROMBOPAG DUE TO THE POTENTIAL FOR FALSELY ELEVATED RESULTS. TOTAL PROTEIN S/P/B 8.8(H) 6.4 - 8.2 G/DL 01/18/2025 10:43 AM [facility] ALBUMIN S/P/B 4.0 3.4 - 5.0 G/DL 01/18/2025 10:43 AM [facility] AST 23 15 - 37 U/L 01/18/2025 10:43 AM [facility] ALT 43 14 - 55 U/L 01/18/2025 10:43 AM [facility] ALKALINE PHOSPHATASE S/P/B 101 50 - 136 U/L 01/18/2025 10:43 AM [facility] ANION GAP 3.5 2 - 10 MMOL/L 01/18/2025 10:43 AM [facility] BUN CREATININE RATIO 15.6 6 - 26 01/18/2025 10:43 AM [facility] A/G RATIO 0.8(L) 1.0 - 2.0 RATIO 01/18/2025 10:43 AM [facility] GFR ESTIMATE 80(L) >90 ML/MIN/1.7 3 M2 01/18/2025 10:43 AM [facility] Comment: NOTE: eGFR is not calculated for patients <18 years of age or gender unknown. This is an estimated GFR calculation using the new CKD EPI creatinine equation without race and so does not require a correction factor for race. This estimated GFR should not be used for calculating drug doses. 01/18/2025 10:0 8 AM [facility] Marisela CANADA LABORATORY Final Resul t [facility] [address] [place] [address], * (ABNORMAL) CBC W/DIFF AUTOMATED (01/18/2025 10:08 AM WOOD FORM BUILDER) Only the most recent of2 resultswithin the time period is included. WBC 22.23(H) 4.5 - 11.0 x10'3/uL 01/18/2025 10:32 AM [facility] RBC 5.65(H) 4.20 - 5.40 x10'6/uL 01/18/2025 10:32 AM [facility] HGB 16.9(H) 12.0 - 16.0 G/DL 01/18/2025 10:32 AM [facility] HCT 51.5(H) 38.0 - 48.0 % 01/18/2025 10:32 AM [facility] MCV 91.2 81.0 - 99.0 FL 01/18/2025 10:32 AM [facility] MCH 29.9 27.0 - 31.0 PG 01/18/2025 10:32 AM [facility] MCHC 32.8 32.0 - 36.0 G/DL 01/18/2025 10:32 AM [facility] RDW 14.6(H) 11.5 - 14.5 % 01/18/2025 10:32 AM [facility] PLT 415(H) 130 - 400 x10'3/uL 01/18/2025 10:32 AM [facility] MPV 9.0(L) 9.3 - 12.2 FL 01/18/2025 10:32 AM [facility] DIFFERENTIAL TYPE AUTOMATED DIFFERENTIAL 01/18/2025 10:32 AM [facility] NEUTROPHILS % 78.3 % 01/18/2025 10:32 AM [facility] LYMPHOCYTES % 12.7 % 01/18/2025 10:32 AM [facility] MONOCYTES % 5.6 % 01/18/2025 10:32 AM [facility] EOSINOPHILS 2.4 % 01/18/2025 10:32 AM [facility] BASOPHILS 0.4 % 01/18/2025 10:32 AM [facility] IMMATURE GRANS % 0.6 % 01/19/20 10:32 AM WOOD FORM BUILDER [facility] ABS. NEUTROPHILS 17.39(H) 1.80 - 7.70 x10'3/uL 01/18/2025 10:32 AM WOOD FORM BUILDER [facility] ABS. LYMPHOCYTES 2.82 1.00 - 4.80 x10'3/uL 01/18/2025 10:32 AM WOOD FORM BUILDER [facility] ABS. MONOCYTES 1.25(H) 0.24 - 0.86 x10'3/uL 01/18/2025 10:32 AM WOOD FORM BUILDER [facility] ABS. EOSINOPHILS 0.53(H) 0.04 - 0.36 x10'3/uL 01/18/2025 10:32 AM [facility] ABS. BASOPHILS 0.10(H) 0.01 - 0.08 x10'3/uL 01/18/2025 10:32 AM WOOD FORM BUILDER [facility] ABS. IMMATURE GRANULOCYTES 0.14 0.00 - 0.49 x10'3/uL 01/18/2025 10:32 AM WOOD FORM BUILDER [facility] 01/18/2025 10:0 8 AM WOOD FORM BUILDER us Marisela [facility] LABORATORY Final Resul t [facility] [address] [place] [address], * CT ABD+PEL W CON (12/25/2024 5:06 PM WOOD FORM BUILDER) Anatomical Region Laterality Modality Abdomen Computed Tomogra phy 12/25/2024 5:28 PM WOOD FORM BUILDER Impressions 12/25/2024 5:34 PM WOOD FORM BUILDER IMPRESSION: 1. Bilateral nonobstructing nephrolithiasis measuring up to 14 x 7 mm on the left. Chronic left renal atrophy with multifocal cortical thinning/scarring. 2. Bilateral ovarian cysts measuring up to 2.8 cm. 3. Atherosclerosis. 4. Please see above for additional chronic, incidental, and nonemergent findings elsewhere. Referred By: Interpreted By: Yony Cornejo MD, 12/25/2024 5:28 PM Narrative 12/25/2024 5:34 PM WOOD FORM BUILDER [place] [address] EXAMINATION: CT Abdomen and Pelvis with contrast [...] Procedure Note Yony Cornejo MD - 12/25/2024 [facility] [address] [place], [place] [address] EXAMINATION: CT Abdomen and Pelvis with contrast [...] Cornejo MD, 12/25/2024 5:28 PM Senthil Thorpe INSULATION SPRAYER CT Final Result * (ABNORMAL) CULTURE URINE (12/25/2024 3:53 PM WOOD FORM BUILDER) SPEC DESCRIPTION URINE CLEAN CATCH 12/25/2024 3:52 PM WOOD FORM BUILDER [facility] SPECIAL REQUESTS NO SPECIAL REQUEST 12/25/2024 3:52 PM WOOD FORM BUILDER [facility] CULTURE RESULT 10,000-49,0 00 COL/ML ESCHERICHIA COLI (A) 12/27/2024 7:04 AM WOOD FORM BUILDER [facility] URINE SPECIMEN OBTAINED BY CLEAN CATCH PROCEDURE / Unknown 12/25/2024 3:53 PM WOOD FORM BUILDER 12/25/2024 3:57 PM WOOD FORM BUILDER Narrative Organism Antibiotic Method Susceptibility Escherichia coli [...] MICROBIOLOGY - GENERAL ORDERAB LES Final Result [facility] [address] [place] [address], * LIPASE (12/25/2024 3:38 PM WOOD FORM BUILDER) LIPASE 32 13 - 75 UNITS/L 12/25/2024 4:32 PM WOOD FORM BUILDER [facility] 12/25/2024 3:38 PM WOOD FORM BUILDER Senthil Thorpe INSULATION SPRAYER LABORATORY Final Result [facility] [address] [place] [address], from Last 3 Months Insurance [facility] Advance Directives * Full Code (Latest Code Status on File) Date Activated Date Inactivated Comments 03/09/2023 12:43 AM 03/09/2023 6:15 PM Care Teams Insurance Law Specialist Relationship Specialty Start Date End Date Dino Roper DO [address] [place] [address] PCP - General FAMILY PRACTICE 01/23/23 David Bell MD [address] [place] [address], [address] [place] [address] Referring Physician MEDICAL ONCOLOGY 03/01/23 Danilo Dolan MD [address] [address] NEUROLOGICAL SURGERY 03/01/23 Harvey Liriano MD [address] [facility] [address] [place] [address] CARDIOVASCULAR DISEASE 03/07/23
--- OUTSIDE RECORDS SUMMARY | 2025-02-17 15:16 | XMS_ITS | Referral Summary ---
Author Organization [facility] Address [address] [place] [address] Care Team Providers Care Program Therapist Name Role Phone Cody Roper DO Primary Care Provider David Bell MD Unavailable [phone] Allergies No known active allergies Medications [...] tablet 1 hour before procedure. Will need bicycle taxi driver to bring him. 2 tablet 3 [...] Comments Blood Pressure 107/77 11/30/2022 12:49 PM HORSEBACK RIDING INSTRUCTOR Pulse 77 11/30/2022 12:49 PM HORSEBACK RIDING INSTRUCTOR Temperature 36.4 C (97.5 F) 11/02/2022 7:14 AM HORSEBACK RIDING INSTRUCTOR Respiratory Rate 16 11/30/2022 12:49 PM HORSEBACK RIDING INSTRUCTOR Oxygen Saturation 100% 11/30/2022 12:49 PM HORSEBACK RIDING INSTRUCTOR Inhaled Oxygen Concentration - - Weight 83.2 kg (183 lb 8 oz) 10/19/2022 9:40 AM HORSEBACK RIDING INSTRUCTOR Height 157.5 cm (5' 2 ) 10/19/2022 9:40 AM HORSEBACK RIDING INSTRUCTOR Body Mass Index 33.56 10/19/2022 9:40 AM HORSEBACK RIDING INSTRUCTOR Plan of Treatment Not on file Insurance AN[employer]M ACCESS CHOICE [employer] ACCESS CHOICE Care Teams Program Therapist Relationship Specialty Start Date End Date Cody Roper DO [address] [place] [address] PCP - General Family Medicine 07/02/19 David Bell MD [address] [place] [place] [address] Medical Oncologist/Street Department Dispatcher Hematology and Oncology 06/11/20
--- OUTSIDE RECORDS SUMMARY | 2025-02-17 15:16 | XMS_ITS | Encounter Summary ---
Author Organization [facility] Address [address] [place] [address] Care Team Providers Care Glass Rolling Machine Operator Name Role Phone Cody Roper DO Primary Care Provider David Bell MD Unavailable Encounter Details Date Type Department Care Team (Late st Contact Info) Description 01/12/2023 Telephone [facility] [address] [place] [address] [place] [id number] [address] Social History Tobacco Use Types Packs/Day Years [...] on filedocumented in this encounter Care Teams Glass Rolling Machine Operator Relationship Specialty Start Date End Date Cody Roper DO [address] [place] [address] PCP - General Family Medicine 07/02/19 David Bell MD [address] [place] [address] Medical Oncologist/Electronics Manufacturer Hematology and Oncology 06/11/20 documented as of this encounter
--- OUTSIDE RECORDS SUMMARY | 2025-02-17 15:16 | XMS_ITS | Clinical Summary ---
Author Organization [facility] Address [address] [place] [address] Care Team Providers Care Restaurant District Manager Name Role Phone Roper, Dino SalgadoEmil Primary Care Provider [phone] Source Comments [facility],non-owned Affiliates and Associated Physician Practices is amultiple site organization consisting of ambulatory clinics and hospital sitesin [place], [place], [place] and [place]. This disclosure is being madepursuant to the Care Everywhere program and may not contain all information available regarding this patient. Last updated 18.[facility] Allergies No known active allergies Medications * [...] Health Maintenance Due Date Last Done Comments COLOGUARD (AGES 45-75) - COL ON CA SCREENING [...] age to complete this topic Care Teams Restaurant District Manager Relationship Specialty Start Date End Date Dino Roper DO [address] [place] [address] [place] [address] PCP - General Family Medicine 08/30/20
--- OUTSIDE RECORDS SUMMARY | 2025-02-17 15:16 | XMS_ITS | Clinical Summary ---
Author Organization [facility] Address [facility] [place] [address] Care Team Providers Care Optics Test Technician Name Role Phone Unavailable Primary Care Provider Unavailabl e Encounters Date Type Department Care Team Description 02/04/2025 External Device Data STL ABSTRACTION Provider, Abstract [...] STL ABSTRACTION Provider, Abstract 11/27/2024 7:30 AM COMPRESSOR OPERATOR ADJUSTER [facility] [place] [address] [address] [place] [address] Sameer Florez MD History of fracture; Lumbar radiculopathy 11/27/2024 7:00 AM COMPRESSOR OPERATOR ADJUSTER Ancillary Procedure [place] [address] [place] [address] Sameer Florez MD History of fracture; Cervical radiculopathy from Last 3 Months Social History Tobacco Use Types Packs/Day Years Used Date Smoking Tobacco: Never Assessed Comments Unknown Sex and Gender Information Value Date Recorded Sex Assigned at Not on file Legal Sex Female 5:32 PM COMPRESSOR OPERATOR ADJUSTER Gender Identity Not on file Sexual Orientation Not on file Plan of Treatment Health Maintenance Due Date Last Done Comments Pre-Diabetes and Diabetes Screening 1979 DTAP/TDAP/TD VACCINES (1 - Tdap) 1998 HEPATITIS B VACCINES (1 of 3 - 19+ 3-dose series) 1998 HPV/Cotest (21-29) 2000 CERVICAL CANCER SCREENING 2009 HPV/Cotest (30-65) 2009 PAP SMEAR 2009 BREAST CANCER SCREENING 12/07/2022 12/07/19 22, 12/07/2021, 10/15/2019, Additional history exists INFLUENZA VACCINE (#1) 2024 COLORECTAL SCREENING 2024 Colorectal Cancer Screening 2024 FIT-DNA Q 3 years 2024 FIT/FOBT Q 1 year 2024 Flex Sig/CT Colonography Q 5 years 2024 HPV VACCINES Aged Out No longer eligi ble based on patient's age to complete this topic Procedures Procedure Name Priority Date/Time Associated Diagnosis Comments MRI LUMBAR WO CONTRAST Routine 11/27/2024 7:45 AM COMPRESSOR OPERATOR ADJUSTER History of fracture Lumbar radiculopathy MRI CERVICAL WO CONTRAST Routine 11/27/2024 7:14 AM COMPRESSOR OPERATOR ADJUSTER History of fracture Cervical radiculopathy from Last 3 Months Results * MRI LUMBAR WO CONTRAST (11/27/2024 7:45 AM COMPRESSOR OPERATOR ADJUSTER) Anatomical Region Laterality Modality Spine Magnetic Resonan ce 11/27/2024 7:45 AM COMPRESSOR OPERATOR ADJUSTER Impressions 11/27/2024 7:53 AM COMPRESSOR OPERATOR ADJUSTER IMPRESSION: 1. Mild degenerative change without significant central canal or neural foraminal narrowing seen. A left paracentral annular fissure is apparent at L5-S1. Narrative 11/27/2024 7:53 AM COMPRESSOR OPERATOR ADJUSTER EXAM: MRI LUMBAR WO CONTRAST DATE: 11/27/2024 [...] paracentral annular fissure is apparent at L5-S1. Sameeryonathan Florez MD MR ORDERABLES Final Result * MRI CERVICAL WO CONTRAST (11/27/2024 7:14 AM COMPRESSOR OPERATOR ADJUSTER) Anatomical Region Laterality Modality Spine Magnetic Resonan ce 11/27/2024 7:15 AM COMPRESSOR OPERATOR ADJUSTER Impressions 11/27/2024 7:33 AM COMPRESSOR OPERATOR ADJUSTER IMPRESSION: Susceptibility artifact associated with fusion from C5 through C7. At C5/6 and C6/7, uncovertebral joint hypertrophy mildly narrows the left neural foramen. Narrative 11/27/2024 7:33 AM COMPRESSOR OPERATOR ADJUSTER EXAM: MRI CERVICAL WO CONTRAST DATE: 11/27/2024 [...] Final Result from Last 3 Months Insurance [facility] BLUE ACCESS CHOICE
--- OUTSIDE RECORDS SUMMARY | 2025-02-17 15:16 | XMS_ITS | Clinical Summary ---
Author Organization [facility] Address [address] [place] [address] Care Team Providers Care Collector Of Port Name Role Phone Cody Roper DO Primary Care Provider David Bell MD Unavailable [phone] Allergies No known active allergies Medications [...] BY MOUTH TWICE A DAY 2 Active HYDROcodone-rvoerto taminophen (NORCO) 5-325 mg per tablet TAKE 1 TABLET BY MOUTH THREE TIMES A DAY NEEDED FOR PAIN 2 Active hydrocortisone (ANUSOL-HC) 2.5 % rectal cream 2 Active nabumetone (RELAFEN) 750 mg tablet Take 750 mg by mouth 2 (two) times a day 2 Active diazePAM (VALIUM) 10 mg tabletIndicatio ns:anxiety,Arelis tion Take 1 tablet 1 hour before procedure. Will need milk tanker driver to bring him. 2 tablet 3 [...] Comments Blood Pressure 107/77 11/30/2022 12:49 PM VASCULAR SONOGRAPHER Pulse 77 11/30/2022 12:49 PM VASCULAR SONOGRAPHER Temperature 36.4 C (97.5 F) 11/02/2022 7:14 AM VASCULAR SONOGRAPHER Respiratory Rate 16 11/30/2022 12:49 PM VASCULAR SONOGRAPHER Oxygen Saturation 100% 11/30/2022 12:49 PM VASCULAR SONOGRAPHER Inhaled Oxygen Concentration - - Weight 83.2 kg (183 lb 8 oz) 10/19/2022 9:40 AM VASCULAR SONOGRAPHER Height 157.5 cm (5' 2 ) 10/19/2022 9:40 AM VASCULAR SONOGRAPHER Body Mass Index 33.56 10/19/2022 9:40 AM VASCULAR SONOGRAPHER Plan of Treatment Health Maintenance Due Date [...] patient's age to complete this topic Insurance [facility] Address: [facility] [address] [place] [address] [employer] Care Teams Collector Of Port Relationship Specialty Start Date End Date Cody Roper DO [address] [place] [address] PCP - General Family Medicine 07/02/19 David Bell MD [address] [place] [address] Medical Oncologist/Retail Salesperson Hematology and Oncology 06/11/20
== END 2025-02-17 13:55 | disposition home or self-care (01) ==
PROVIDERS: Visit Provider Urology
DX: N20.0 Calculus of kidney (principal)
CPT/HCPCS: 74018

== ENCOUNTER 2025-02-19 14:12 | Emergency (ER) | payer BC, SELFPAY ==
--- NOTE | ~2025-02-19 | CT_ITS ---
EXAMINATION: CT abdomen pelvis wo con DATE: 02/19/2025 16:22 INDICATION: Right upper quadrant and left lower quadrant abdominal pain. TECHNIQUE: Computed tomography (CT) of the abdomen and pelvis was performed without intravenous contr ast. Automated exposure control and iterative reconstruction technique were employed. The dose-length product was 528.45 mGy-cm. COMPARISON: None FINDINGS: Lung bases are clear. Heart size is normal. No pericardial or pleural effusion. Cholecystectomy clips the gallbladder fossa. Liver, spleen, pancreas and bilateral adrenal glands are normal. 1 mm nonobst ructing stone at a lower pole calyx of the right kidney. 6 mm and 4 mm nonobstructing stones at lower pole calyx of the left kidney. Asymmetric mild left renal atrophy. There is mild left hydroureterone phrosis which extends to the normal bladder. No evident obstructing stone identified. Mild haziness t o the fat surrounding the left renal pelvis and left ureter which suggests possible ascending urinary tract infection. Tiny phlebolith in the left hemipelvis posterior to the left ureter. Anteverted danyell edmundo and bilateral adnexa are unremarkable with a couple small ovarian follicles the larger on the lef t measuring up to 1.8 cm. Bowels are unremarkable. The appendix is not visualized. No pericecal infla mmatory change to suggest acute appendicitis. No free intraperitoneal gas or fluid. No pathologically enlarged abdominal or pelvic lymphadenopathy. Very small fat-containing left inguinal hernia. Mild t horacic and lumbar spondylosis. IMPRESSION: 1. Bilateral nonobstructing nephrolithiasis with mild left hydroureteronephrosis and associated mild inflammation surrounding the left ureter and renal pelvis. This could be related to recently passed s tone or ascending urinary tract infection. Correlate with urinalysis. Reviewed, dictated and finalized at location A. IMPRESSION: 1. Bilateral nonobstructing nephrolithiasis with mild left hydroureteronephrosi s and associated mild inflammation surrounding the left ureter and renal pelvis . This could be related to recently passed stone or ascending urinary tract inf ection. Correlate with urinalysis.
[2025-02-19 14:14] VITALS: BP 140/88; PULSE 93; RESP 18; TEMP 36.8; O2SAT 99
--- OUTSIDE RECORDS SUMMARY | 2025-02-19 14:35 | XMS_ITS | Referral Summary ---
Author Organization [facility] Address [address] [place] [address] Care Team Providers Care Valuation Manager Name Role Phone Cody Roper DO Primary Care Provider David Bell MD Unavailable [phone] Allergies No known active allergies Medications [...] tablet 1 hour before procedure. Will need carrier driver to bring him. 2 tablet 3 [...] Comments Blood Pressure 107/77 11/30/2022 12:49 PM PARKING LOT SPOTTER Pulse 77 11/30/2022 12:49 PM PARKING LOT SPOTTER Temperature 36.4 C (97.5 F) 11/02/2022 7:14 AM PARKING LOT SPOTTER Respiratory Rate 16 11/30/2022 12:49 PM PARKING LOT SPOTTER Oxygen Saturation 100% 11/30/2022 12:49 PM PARKING LOT SPOTTER Inhaled Oxygen Concentration - - Weight 83.2 kg (183 lb 8 oz) 10/19/2022 9:40 AM PARKING LOT SPOTTER Height 157.5 cm (5' 2 ) 10/19/2022 9:40 AM PARKING LOT SPOTTER Body Mass Index 33.56 10/19/2022 9:40 AM PARKING LOT SPOTTER Plan of Treatment Not on file Insurance [employer] ACCESS CHOICE [employer] ACCESS CHOICE Care Teams Valuation Manager Relationship Specialty Start Date End Date Cody Roper DO [address] [place] [address] PCP - General Family Medicine 07/02/19 David Bell MD [address] [place] [place] [place] [address] Medical Oncologist/Merchandise Director Hematology and Oncology 06/11/20
--- OUTSIDE RECORDS SUMMARY | 2025-02-19 14:35 | XMS_ITS | Encounter Summary ---
Author Organization [facility] Address [address] [place] [address] Care Team Providers Care Crime Scene Analyst Name Role Phone Cody Roper DO Primary Care Provider David Bell MD Unavailable [phone] Encounter Details Date Type Department Care Team (Late st Contact Info) Description 01/12/2023 Telephone [facility] [address] [place] [address] [place] [id number] [address] Social History Tobacco Use Types Packs/Day Years [...] on filedocumented in this encounter Care Teams Crime Scene Analyst Relationship Specialty Start Date End Date Cody Roper DO [address] [place] [address] PCP - General Family Medicine 07/02/19 David Bell MD [address] [place] [address] Medical Oncologist/Dental Specialist Hematology and Oncology 06/11/20 documented as of this encounter
--- OUTSIDE RECORDS SUMMARY | 2025-02-19 14:35 | XMS_ITS | Clinical Summary ---
Author Organization [facility] Address [address] [place] [address] Care Team Providers Care Armature Rewinder Name Role Phone Roper, Dino SalgadoEmil Primary Care Provider [phone] David Bell MD Unavailable [phone] Danilo Dolan MD Unavailable [phone] Harvey Liriano MD Unavailable Unavailable Allergies Active [...] Department Care Team Description 01/18/2025 9:58 AM EMBEDDED PROCESSOR - 01/18/2025 5:38 PM EMBEDDED PROCESSOR Emergency [facility] [place] [address] Marisela Houston PA Abdominal Pain Discharge Disposition: Home or Self Care (Routine Discharge) 01/18/2025 Travel 12/25/2024 2:46 PM EMBEDDED PROCESSOR - 12/25/2024 7:13 PM EMBEDDED PROCESSOR Emergency [facility] [place] [address] Radha Cortes NP Abdominal Pain Discharge Disposition: [...] place to sleep or slept in a long-term (including now)? No 03/08/2023 Comments No Sex and Gender Information Value Date Recorded Sex Assigned at Female 12/25/2024 1:18 PM EMBEDDED PROCESSOR Legal Sex Female 4:07 PM EMBEDDED PROCESSOR Gender Identity Not on file Sexual Orientation Not on file Last Filed Vital Signs Vital Sign Reading Time Taken Comments Blood Pressure 140/93 01/18/2025 5:36 PM EMBEDDED PROCESSOR Pulse 96 01/18/2025 5:36 PM EMBEDDED PROCESSOR Temperature 36.1 C (97 F) 01/18/2025 10:33 AM EMBEDDED PROCESSOR Respiratory Rate 16 01/18/2025 5:36 PM EMBEDDED PROCESSOR Oxygen Saturation 100% 01/18/2025 5:36 PM EMBEDDED PROCESSOR Inhaled Oxygen Concentration - - Weight 73.5 kg (162 lb) 01/18/2025 9:05 AM EMBEDDED PROCESSOR Height 157.5 cm (5' 2 ) 01/18/2025 9:05 AM EMBEDDED PROCESSOR Body Mass Index 29.63 01/18/2025 9:05 AM EMBEDDED PROCESSOR Plan of Treatment Health Maintenance Due Date [...] Solis, RN Medical Devices Implanted Type Area Pipefitter Device Identifier Shelf Expiration Date Model / Serial / Lot Graft Bone I Factor 2.5cc Allograft Putty Syringe - [id number] Implanted:Qt y: 1 on 03/08/2023 by Danilo Dolan MD at [facility] Bone N/A: Spine Cervical [employer] [id number] 07/19/2025 700-025 / / [id number] Zavation Cage [id number] Implanted:Qt y: 1 on 03/08/2023 by Danilo Dolan MD at [facility] Cage N/A: Spine Cervical [id number] / / Description:At c6-7 Zavation [id number] Cage Implanted:Qt y: 1 on 03/08/2023 by Danilo Dolan MD at [facility] Cage N/A: Spine Cervical -605 / / Description:At c5-6 Zavation 32mm Plate Implanted:Qt y: 1 on 03/08/2023 by Danilo Dolan MD at [facility] Plate N/A: Spine Cervical [id number] / / Zavation 4.0x12mm Vsd Screw Implanted:Qt y: 6 on 03/08/2023 by Danilo Dolan MD at [facility] Screw N/A: Spine Cervical [id number] / / Tissue Surgiflo 8ml - [id number] Implanted:Qt y: 1 on 03/08/2023 by Danilo Dolan MD at [facility] Sealant N/A: Spine Cervical [employer] 04/18/2024 [id number] / / [id number] Procedures Procedure Name Priority Date/Time Associated Diagnosis Comments LACTIC ACID W REFLEX (SEPSIS) TIMED 01/18/2025 1:27 PM EMBEDDED PROCESSOR US PELVIC NON OB COMP TV STAT 01/18/2025 12:42 PM EMBEDDED PROCESSOR LACTIC ACID W REFLEX (SEPSIS) STAT 01/18/2025 10:[address] ABD+PEL KIDNEY STONE STAT 01/18/2025 10:36 AM EMBEDDED PROCESSOR POCT URINE (BACK OFFICE) STAT 01/18/2025 10:10 AM EMBEDDED PROCESSOR HC URINALYSIS AUTO W/O MICRO STAT 01/18/2025 10:08 AM EMBEDDED PROCESSOR COMPREHENSIVE METABOLIC PANEL STAT 01/18/2025 10:08 AM EMBEDDED PROCESSOR CBC W/DIFF AUTOMATED STAT 01/18/2025 10:[address] ABD+PEL W CON STAT 12/25/2024 5:06 PM EMBEDDED PROCESSOR URINE BACTERIA CULTURE STAT 3:53 PM EMBEDDED PROCESSOR HC URINALYSIS AUTO W/O MICRO STAT 12/25/2024 3:53 PM EMBEDDED PROCESSOR POCT URINE (BACK OFFICE) STAT 12/25/2024 3:52 PM EMBEDDED PROCESSOR LIPASE STAT 12/25/2024 3:38 PM EMBEDDED PROCESSOR COMPREHENSIVE METABOLIC PANEL STAT 12/25/2024 3:38 PM EMBEDDED PROCESSOR CBC W/DIFF AUTOMATED STAT 12/25/2024 3:38 PM EMBEDDED PROCESSOR from Last 3 Months Results * LACTIC ACID W REFLEX (SEPSIS) (01/18/2025 1:27 PM EMBEDDED PROCESSOR) Only the most recent of2 resultswithin the time period is included. LACTIC ACID VENOUS 1.3 0.4 - 2.0 MMOL/L 01/18/2025 3:22 PM EMBEDDED PROCESSOR [facility] 01/18/2025 1:27 PM EMBEDDED PROCESSOR Marisela Houston PA LABORATORY Final Resul t [facility] [address] [place] [address], * US PELVIC TV NON OB (01/18/2025 12:42 PM EMBEDDED PROCESSOR) Anatomical Region Laterality Modality Pelvis Ultrasound 01/18/2025 12:3 2 PM EMBEDDED PROCESSOR Impressions 01/18/2025 12:35 PM EMBEDDED PROCESSOR Impression: 1. No acute findings in the pelvis. Documented Doppler flow within both ovaries. 2. Simple appearing bilateral follicular cysts measuring up to 2.9 cm. No specific follow-up is required. Referred By: Interpreted By: Ciaran Márquez MD, 01/18/2025 12:32 PM Narrative 01/18/2025 12:35 PM EMBEDDED PROCESSOR [address] [address] Procedure: US PELVIC NON OB COMP TV [...] Procedure Note Ciaran Márquez MD - 01/18/[address] [address] Procedure: US PELVIC NON OB COMP TV [...] CT ABD+PEL KIDNEY STONE (01/18/2025 10:36 AM EMBEDDED PROCESSOR) Anatomical Region Laterality Modality Abdomen Computed Tomogra phy 01/18/2025 10:3 7 AM EMBEDDED PROCESSOR Impressions 01/18/2025 10:41 AM EMBEDDED PROCESSOR IMPRESSION: No acute inflammatory changes are present within the abdomen or pelvis. Bilateral nonobstructive nephrolithiasis. No hydronephrosis or hydroureter. Bilateral ovarian cysts are present. These can be seen normally in a patient of menstrual age. Referred By: Interpreted By: Carlos Moore MD, 01/18/2025 10:37 AM Narrative 01/18/2025 10:41 AM EMBEDDED PROCESSOR [address] [address] Procedure(s): CT ABD+PEL KIDNEY STONE Date of [...] Procedure Note Carlos Moore MD - 01/18/[address] [address] Procedure(s): CT ABD+PEL KIDNEY STONE Date of [...] t * POCT urine (01/18/2025 10:10 AM EMBEDDED PROCESSOR) Only the most recent of2 resultswithin the time period is included. URINE HCG TEST NEGATIVE Internal Control: VALID us Marisela CANADA POINT OF CARE TEST ORDERABL ES Final Result * (ABNORMAL) URINALYSIS (01/18/2025 10:08 AM EMBEDDED PROCESSOR) Only the most recent of2 resultswithin the time period is included. SPECIMEN TYPE URINE CLEAN CATCH 01/18/2025 10:10 AM EMBEDDED PROCESSOR [facility] COLOR (U) YELLOW 01/18/2025 10:35 AM EMBEDDED PROCESSOR [facility] TRANSPARENCY CLEAR 01/18/2025 10:35 AM [facility] SPECIFIC GRAVITY (U) 1.040(H) 1.001 - 1.030 01/18/2025 10:35 AM [facility] U PH 6.0 5.0 - 9.0 01/18/2025 10:35 AM [facility] LEUKOCYTES (U) NEGATIVE NEGATIVE 01/18/2025 10:35 AM [facility] NITRITES NEGATIVE NEGATIVE 01/18/2025 10:35 AM [facility] PROTEIN RANDOM (U) 10 <30 MG/DL 01/18/2025 10:35 AM [facility] GLUCOSE (U) NORMAL NORMAL MG/DL 01/18/2025 10:35 AM [facility] KETONES MG/DL (U) TRACE(A) NEGATIVE MG/DL 01/18/2025 10:35 AM [facility] UROBILINOGEN NORMAL NORMAL MG/DL 01/18/2025 10:35 AM [facility] BILIRUBIN (U) NEGATIVE NEGATIVE MG/DL 01/18/2025 10:35 AM [facility] BLOOD (U) NEGATIVE NEGATIVE 01/18/2025 10:35 AM [facility] URINE SPECIMEN OBTAINED BY CLEAN CATCH PROCEDURE / Unknown 01/18/2025 10:08 AM [facility] us Marisela CANADA URINE ORDERABLES Final Resu lt [facility] [address] [place] [address], [place] [phone] * (ABNORMAL) COMPREHENSIVE METABOLIC PANEL (01/18/2025 10:08 AM EMBEDDED PROCESSOR) Only the most recent of2 resultswithin the time period is included. GLUCOSE 152(H) 70 - 99 MG/DL 01/18/2025 10:43 AM [facility] BUN 14 7 - 18 MG/DL 01/18/2025 10:43 AM [facility] CREATININE S/P/B 0.90 0.55 - 1.02 MG/DL 01/18/2025 10:43 AM [facility] SODIUM S/P/B 135(L) 136 - 145 MMOL/L 01/18/2025 10:43 AM [facility] POTASSIUM S/P/B 4.3 3.5 - 5.1 MMOL/L 01/18/2025 10:43 AM [facility] CHLORIDE S/P/B 104 97 - 115 MMOL/L 01/18/2025 10:43 AM [facility] CO2 27.5 21 - 32 MMOL/L 01/18/2025 10:43 AM [facility] CALCIUM S/P/B 9.5 8.5 - 10.1 MG/DL 01/18/2025 10:43 AM [facility] BILIRUBIN TOTAL S/P/B 0.4 0.2 - 1.2 MG/DL 01/18/2025 10:43 AM [facility] Comment: THIS ASSAY IS NOT RECOMMENDED FOR PATIENTS UNDERGOING TREATMENT WITH ELTROMBOPAG DUE TO THE POTENTIAL FOR FALSELY ELEVATED RESULTS. TOTAL PROTEIN S/P/B 8.8(H) 6.4 - 8.2 G/DL 01/18/2025 10:43 AM [facility] ALBUMIN S/P/B 4.0 3.4 - 5.0 G/DL 01/18/2025 10:43 AM [facility] AST 23 15 - 37 U/L 01/18/2025 10:43 AM [facility] ALT 43 14 - 55 U/L 01/18/2025 10:43 AM [facility] ALKALINE PHOSPHATASE S/P/B 101 50 - 136 U/L 01/18/2025 10:43 AM [facility] ANION GAP 3.5 2 - 10 MMOL/L 01/18/2025 10:43 AM [facility] BUN CREATININE RATIO 15.6 6 - 26 01/18/2025 10:43 AM [facility] A/G RATIO 0.8(L) 1.0 - 2.0 RATIO 01/18/2025 10:43 AM [facility] GFR ESTIMATE 80(L) >90 ML/MIN/1.7 3 M2 01/18/2025 10:43 AM [facility] Comment: NOTE: eGFR is not calculated for patients <18 years of age or gender unknown. This is an estimated GFR calculation using the new CKD EPI creatinine equation without race and so does not require a correction factor for race. This estimated GFR should not be used for calculating drug doses. 01/18/2025 10:0 8 AM [facility] Marisela CANADA LABORATORY Final Resul t [facility] [address] [place] [address], * (ABNORMAL) CBC W/DIFF AUTOMATED (01/18/2025 10:08 AM EMBEDDED PROCESSOR) Only the most recent of2 resultswithin the time period is included. WBC 22.23(H) 4.5 - 11.0 x10'3/uL 01/18/2025 10:32 AM [facility] RBC 5.65(H) 4.20 - 5.40 x10'6/uL 01/18/2025 10:32 AM [facility] HGB 16.9(H) 12.0 - 16.0 G/DL 01/18/2025 10:32 AM [facility] HCT 51.5(H) 38.0 - 48.0 % 01/18/2025 10:32 AM [facility] MCV 91.2 81.0 - 99.0 FL 01/18/2025 10:32 AM [facility] MCH 29.9 27.0 - 31.0 PG 01/18/2025 10:32 AM [facility] MCHC 32.8 32.0 - 36.0 G/DL 01/18/2025 10:32 AM [facility] RDW 14.6(H) 11.5 - 14.5 % 01/18/2025 10:32 AM [facility] PLT 415(H) 130 - 400 x10'3/uL 01/18/2025 10:32 AM [facility] MPV 9.0(L) 9.3 - 12.2 FL 01/18/2025 10:32 AM [facility] DIFFERENTIAL TYPE AUTOMATED DIFFERENTIAL 01/18/2025 10:32 AM [facility] NEUTROPHILS % 78.3 % 01/18/2025 10:32 AM [facility] LYMPHOCYTES % 12.7 % 01/18/2025 10:32 AM [facility] MONOCYTES % 5.6 % 01/18/2025 10:32 AM [facility] EOSINOPHILS 2.4 % 01/18/2025 10:32 AM [facility] BASOPHILS 0.4 % 01/18/2025 10:32 AM [facility] IMMATURE GRANS % 0.6 % 01/19/20 10:32 AM EMBEDDED PROCESSOR [facility] ABS. NEUTROPHILS 17.39(H) 1.80 - 7.70 x10'3/uL 01/18/2025 10:32 AM EMBEDDED PROCESSOR [facility] ABS. LYMPHOCYTES 2.82 1.00 - 4.80 x10'3/uL 01/18/2025 10:32 AM EMBEDDED PROCESSOR [facility] ABS. MONOCYTES 1.25(H) 0.24 - 0.86 x10'3/uL 01/18/2025 10:32 AM EMBEDDED PROCESSOR [facility] ABS. EOSINOPHILS 0.53(H) 0.04 - 0.36 x10'3/uL 01/18/2025 10:32 AM [facility] ABS. BASOPHILS 0.10(H) 0.01 - 0.08 x10'3/uL 01/18/2025 10:32 AM EMBEDDED PROCESSOR [facility] ABS. IMMATURE GRANULOCYTES 0.14 0.00 - 0.49 x10'3/uL 01/18/2025 10:32 AM EMBEDDED PROCESSOR [facility] 01/18/2025 10:0 8 AM EMBEDDED PROCESSOR us Marisela CANADA LABORATORY Final Resul t [facility] [address] [place] [address], * CT ABD+PEL W CON (12/25/2024 5:06 PM EMBEDDED PROCESSOR) Anatomical Region Laterality Modality Abdomen Computed Tomogra phy 12/25/2024 5:28 PM EMBEDDED PROCESSOR Impressions 12/25/2024 5:34 PM EMBEDDED PROCESSOR IMPRESSION: 1. Bilateral nonobstructing nephrolithiasis measuring up to 14 x 7 mm on the left. Chronic left renal atrophy with multifocal cortical thinning/scarring. 2. Bilateral ovarian cysts measuring up to 2.8 cm. 3. Atherosclerosis. 4. Please see above for additional chronic, incidental, and nonemergent findings elsewhere. Referred By: Interpreted By: Yony Cornejo MD, 12/25/2024 5:28 PM Narrative 12/25/2024 5:34 PM EMBEDDED PROCESSOR [place] [address] EXAMINATION: CT Abdomen and Pelvis with contrast [...] Procedure Note Yony Cornejo MD - 12/25/2024 [facility] [address] [place], [place] [address] EXAMINATION: CT Abdomen and Pelvis with contrast [...] Cornejo MD, 12/25/2024 5:28 PM Senthil Thorpe PRINTED CIRCUIT BOARD PREASSEMBLER CT Final Result * (ABNORMAL) CULTURE URINE (12/25/2024 3:53 PM EMBEDDED PROCESSOR) SPEC DESCRIPTION URINE CLEAN CATCH 12/25/2024 3:52 PM EMBEDDED PROCESSOR [facility] SPECIAL REQUESTS NO SPECIAL REQUEST 12/25/2024 3:52 PM EMBEDDED PROCESSOR [facility] CULTURE RESULT 10,000-49,0 00 COL/ML ESCHERICHIA COLI (A) 12/27/2024 7:04 AM EMBEDDED PROCESSOR [facility] URINE SPECIMEN OBTAINED BY CLEAN CATCH PROCEDURE / Unknown 12/25/2024 3:53 PM EMBEDDED PROCESSOR 12/25/2024 3:57 PM EMBEDDED PROCESSOR Narrative Organism Antibiotic Method Susceptibility Escherichia coli AMPICILLIN BITA (VITEK) <=2: Sensitive Escherichia coli AMPICILLIN/SULBACTAM BIAT (VITEK) <=2: Sensitive Escherichia coli CEFTRIAXONE BITA [...] MICROBIOLOGY - GENERAL ORDERAB LES Final Result [facility] [address] [place] [address], * LIPASE (12/25/2024 3:38 PM EMBEDDED PROCESSOR) LIPASE 32 13 - 75 UNITS/L 12/25/2024 4:32 PM EMBEDDED PROCESSOR [facility] 12/25/2024 3:38 PM EMBEDDED PROCESSOR Senthil Thorpe PRINTED CIRCUIT BOARD PREASSEMBLER LABORATORY Final Result [facility] [address] [place] [address], from Last 3 Months Insurance [facility] Advance Directives * Full Code (Latest Code Status on File) Date Activated Date Inactivated Comments 03/09/2023 12:43 AM 03/09/2023 6:15 PM Care Teams Armature Rewinder Relationship Specialty Start Date End Date Dino Roper DO [address] [place] [address] PCP - General FAMILY PRACTICE 01/23/23 David Bell MD [address] [place] [address], [address] [place] [address] Referring Physician MEDICAL ONCOLOGY 03/01/23 Danilo Dolan MD [address] [address] NEUROLOGICAL SURGERY 03/01/23 Harvey Liriano MD 3 [facility] [address] [place] [address] CARDIOVASCULAR DISEASE 03/07/23
--- OUTSIDE RECORDS SUMMARY | 2025-02-19 14:35 | XMS_ITS | Clinical Summary ---
Author Organization [facility] [email or web address] Address [address] [place] [address] Care Team Providers Care Lubricating Engineer Name Role Phone Roper, Dino SalgadoEmil Primary Care Provider [phone] Source Comments [facility] [email or web address],non-owned Affiliates and Associated Physician Practices is amultiple site organization consisting of ambulatory clinics and hospital sitesin [place], [place], [place] and [place]. This disclosure is being madepursuant to the Care Everywhere program and may not contain all information available regarding this patient. Last updated 18.[facility] [email or web address] Allergies No known active allergies Medications * [...] 1998 SCREENING FOR DIABETES 03/07/2023 COVID-19 VACCINE (2023-2 5 season) 2024 DEPRESSION SCREENING 11/19/2024 INFLUENZA VACCINE (Season Ended) 2025 ZOSTER VACCINE (1 of 2) 2029 HIB [...] age to complete this topic Care Teams Lubricating Engineer Relationship Specialty Start Date End Date Dino Roper DO [address] [place] [address] [address] [address] PCP - General Family Medicine 08/30/20
--- OUTSIDE RECORDS SUMMARY | 2025-02-19 14:36 | XMS_ITS | Clinical Summary ---
Author Organization [facility] Address [facility] [place] [address] Care Team Providers Care Bottom Man Name Role Phone Unavailable Primary Care Provider [...] STL ABSTRACTION Provider, Abstract 11/27/2024 7:30 AM ROLL OPERATOR [facility] [place] [address] [place] [address] Sameer Florez MD History of fracture; Lumbar radiculopathy 11/27/2024 7:00 AM ROLL OPERATOR Ancillary Procedure [place] [address] [place] [address] Sameer Florez MD History of fracture; Cervical radiculopathy from Last 3 Months Social History Tobacco Use Types Packs/Day Years Used Date Smoking Tobacco: Never Assessed Comments Unknown Sex and Gender Information Value Date Recorded Sex Assigned at Not on file Legal Sex Female 5:32 PM ROLL OPERATOR Gender Identity Not on file Sexual [...] LUMBAR WO CONTRAST Routine 11/27/2024 7:45 AM ROLL OPERATOR History of fracture Lumbar radiculopathy MRI CERVICAL WO CONTRAST Routine 11/27/2024 7:14 AM ROLL OPERATOR History of fracture Cervical radiculopathy from Last 3 Months Results * MRI LUMBAR WO CONTRAST (11/27/2024 7:45 AM ROLL OPERATOR) Anatomical Region Laterality Modality Spine Magnetic Resonan ce 11/27/2024 7:45 AM ROLL OPERATOR Impressions 11/27/2024 7:53 AM ROLL OPERATOR IMPRESSION: 1. Mild degenerative change without significant central canal or neural foraminal narrowing seen. A left paracentral annular fissure is apparent at L5-S1. Narrative 11/27/2024 7:53 AM ROLL OPERATOR EXAM: MRI LUMBAR WO CONTRAST DATE: 11/27/2024 [...] MRI CERVICAL WO CONTRAST (11/27/2024 7:14 AM ROLL OPERATOR) Anatomical Region Laterality Modality Spine Magnetic Resonan ce 11/27/2024 7:15 AM ROLL OPERATOR Impressions 11/27/2024 7:33 AM ROLL OPERATOR IMPRESSION: Susceptibility artifact associated with fusion from C5 through C7. At C5/6 and C6/7, uncovertebral joint hypertrophy mildly narrows the left neural foramen. Narrative 11/27/2024 7:33 AM ROLL OPERATOR EXAM: MRI CERVICAL WO CONTRAST DATE: 11/27/2024 [...] Final Result from Last 3 Months Insurance [facility] BLUE ACCESS CHOICE
--- OUTSIDE RECORDS SUMMARY | 2025-02-19 14:36 | XMS_ITS | Clinical Summary ---
Author Organization [facility] Address [address] [place] [address] Care Team Providers Care Supervisor Car And Yard Name Role Phone Cody Roper DO Primary Care Provider David Bell MD Unavailable [phone] Allergies No known active allergies Medications [...] tablet 1 hour before procedure. Will need class c truck driver to bring him. 2 tablet [...] Comments Blood Pressure 107/77 11/30/2022 12:49 PM MONITORING ENGINEER Pulse 77 11/30/2022 12:49 PM MONITORING ENGINEER Temperature 36.4 C (97.5 F) 11/02/2022 7:14 AM MONITORING ENGINEER Respiratory Rate 16 11/30/2022 12:49 PM MONITORING ENGINEER Oxygen Saturation 100% 11/30/2022 12:49 PM MONITORING ENGINEER Inhaled Oxygen Concentration - - Weight 83.2 kg (183 lb 8 oz) 10/19/2022 9:40 AM MONITORING ENGINEER Height 157.5 cm (5' 2 ) 10/19/2022 9:40 AM MONITORING ENGINEER Body Mass Index 33.56 10/19/2022 9:40 AM MONITORING ENGINEER Plan of Treatment Health Maintenance Due Date [...] 2023-2 5 season) 2024 06/14/2021 Influenza Vaccine (Season Ended) 2025 HPV Vaccines Aged Out No longer eligi ble based on patient's age to complete this topic Insurance [employer] Care Teams Supervisor Car And Yard Relationship Specialty Start Date End Date Cody Roper DO [address] [place] [address] PCP - General Family Medicine 07/02/19 David Bell MD [address] [place] [address] Medical Oncologist/Sterile Supervisor Hematology and Oncology 06/11/20
[2025-02-19 15:10] LABS: BEDSIDEPREGUCG Negative (Negative)
[2025-02-19 15:22] LABS: Basophils Absolute Auto 0.1 K/mm3 (0.0-0.1); Basophils Percent Auto 0.3 % (0.2-1.2); Eosinophils Absolute Auto 0.1 K/mm3 (0-0.3); Eosinophils Percent Auto 0.4 % (0-4.4); Hematocrit 50.9 % (37.0-47.0); Hemoglobin 16.8 g/dL (12.0-15.0); Immature Granulocyte Percent A 0.5 % (0-0.5); Lymphocytes Absolute Auto 3.38 K/mm3 (0.9-3.2); Lymphocytes Percent Auto 17.4 % (18.3-44.2); Mean Corpuscular Hemoglobin 30.1 pg (26-34); Mean Corpuscular Volume 91.1 fl (80-100); Mean Platelet Volume 9.7 fl (7.4-10.4); Monocytes Absolute Auto 0.8 K/mm3 (0.1-0.6); Monocytes Percent Auto 4.2 % (2.6-8.5); Neutrophils Percent Auto 77.2 % (45.5-73.1); Platelet Count Result 343 k/mm3 (150-375); Red Blood Count 5.59 M/mm3 (4.2-5.4); Red Cell Distribution Width 14.2 % (11.5-14.5); White Blood Count 19.4 K/mm3 (4.5-10.0)
--- OUTSIDE RECORDS SUMMARY | 2025-02-19 15:29 | XMS_ITS | Clinical Summary ---
Author Organization [facility] Address [address] [place] [address] Care Team Providers Care Pay Per Click Strategist Name Role Phone Cody Roper DO Primary Care Provider David Bell MD Unavailable [phone] Allergies No known active allergies Medications [...] tablet 1 hour before procedure. Will need auto transport driver to bring him. 2 tablet 3 [...] Comments Blood Pressure 107/77 11/30/2022 12:49 PM AUTO PHONE INSTALLER Pulse 77 11/30/2022 12:49 PM AUTO PHONE INSTALLER Temperature 36.4 C (97.5 F) 11/02/2022 7:14 AM AUTO PHONE INSTALLER Respiratory Rate 16 11/30/2022 12:49 PM AUTO PHONE INSTALLER Oxygen Saturation 100% 11/30/2022 12:49 PM AUTO PHONE INSTALLER Inhaled Oxygen Concentration - - Weight 83.2 kg (183 lb 8 oz) 10/19/2022 9:40 AM AUTO PHONE INSTALLER Height 157.5 cm (5' 2 ) 10/19/2022 9:40 AM AUTO PHONE INSTALLER Body Mass Index 33.56 10/19/2022 9:40 AM AUTO PHONE INSTALLER Plan of Treatment Health Maintenance Due Date [...] patient's age to complete this topic Insurance Calvin Calvin Care Teams Pay Per Click Strategist Relationship Specialty Start Date End Date Cody Roper DO [address] [place] [address] PCP - General Family Medicine 07/02/19 David Bell MD [address] [place] [address] Medical Oncologist/Instructional Technology Teacher Hematology and Oncology 06/11/20
--- OUTSIDE RECORDS SUMMARY | 2025-02-19 15:29 | XMS_ITS | Referral Summary ---
Author Organization [facility] Address [address] [place] [address] Care Team Providers Care Multimedia Programmer Name Role Phone Cody Roper DO Primary Care Provider David Bell MD Unavailable [phone] Allergies No known active allergies Medications [...] tablet 1 hour before procedure. Will need wrecking car driver to bring him. 2 tablet 3 [...] Comments Blood Pressure 107/77 11/30/2022 12:49 PM CASEWORK MANAGER Pulse 77 11/30/2022 12:49 PM CASEWORK MANAGER Temperature 36.4 C (97.5 F) 11/02/2022 7:14 AM CASEWORK MANAGER Respiratory Rate 16 11/30/2022 12:49 PM CASEWORK MANAGER Oxygen Saturation 100% 11/30/2022 12:49 PM CASEWORK MANAGER Inhaled Oxygen Concentration - - Weight 83.2 kg (183 lb 8 oz) 10/19/2022 9:40 AM CASEWORK MANAGER Height 157.5 cm (5' 2 ) 10/19/2022 9:40 AM CASEWORK MANAGER Body Mass Index 33.56 10/19/2022 9:40 AM CASEWORK MANAGER Plan of Treatment Not on file Insurance ANTHEM ACCESS CHOICE [employer] ACCESS CHOICE Care Teams Multimedia Programmer Relationship Specialty Start Date End Date Cody Roper DO [address] [place] [address] PCP - General Family Medicine 07/02/19 David Bell MD [address] [place] [address] Medical Oncologist/Yard Jacker Hematology and Oncology 06/11/20
--- OUTSIDE RECORDS SUMMARY | 2025-02-19 15:29 | XMS_ITS | Clinical Summary ---
Author Organization [facility] Address [facility] [place] [address] Care Team Providers Care Division Superintendent Name Role Phone Unavailable Primary Care Provider [...] STL ABSTRACTION Provider, Abstract 11/27/2024 7:30 AM COOKER CHIP [facility] [address] [place] [address] Sameer Florez MD History of fracture; Lumbar radiculopathy 11/27/2024 7:00 AM COOKER CHIP Ancillary Procedure [address] [place] [address] Sameer Florez MD History of fracture; Cervical radiculopathy from Last 3 Months Social History Tobacco Use Types Packs/Day Years Used Date Smoking Tobacco: Never Assessed Comments Unknown Sex and Gender Information Value Date Recorded Sex Assigned at Not on file Legal Sex Female 5:32 PM COOKER CHIP Gender Identity Not on file Sexual Orientation [...] LUMBAR WO CONTRAST Routine 11/27/2024 7:45 AM COOKER CHIP History of fracture Lumbar radiculopathy MRI CERVICAL WO CONTRAST Routine 11/27/2024 7:14 AM COOKER CHIP History of fracture Cervical radiculopathy from Last 3 Months Results * MRI LUMBAR WO CONTRAST (11/27/2024 7:45 AM COOKER CHIP) Anatomical Region Laterality Modality Spine Magnetic Resonan ce 11/27/2024 7:45 AM COOKER CHIP Impressions 11/27/2024 7:53 AM COOKER CHIP IMPRESSION: 1. Mild degenerative change without significant central canal or neural foraminal narrowing seen. A left paracentral annular fissure is apparent at L5-S1. Narrative 11/27/2024 7:53 AM COOKER CHIP EXAM: MRI LUMBAR WO CONTRAST DATE: 11/27/2024 [...] MRI CERVICAL WO CONTRAST (11/27/2024 7:14 AM COOKER CHIP) Anatomical Region Laterality Modality Spine Magnetic Resonan ce 11/27/2024 7:15 AM COOKER CHIP Impressions 11/27/2024 7:33 AM COOKER CHIP IMPRESSION: Susceptibility artifact associated with fusion from C5 through C7. At C5/6 and C6/7, uncovertebral joint hypertrophy mildly narrows the left neural foramen. Narrative 11/27/2024 7:33 AM COOKER CHIP EXAM: MRI CERVICAL WO CONTRAST DATE: 11/27/2024 [...] Final Result from Last 3 Months Insurance [facility] BLUE ACCESS CHOICE
--- OUTSIDE RECORDS SUMMARY | 2025-02-19 15:29 | XMS_ITS | Clinical Summary ---
Author Organization [facility] Address [address] [place] [address] Care Team Providers Care Principal Consultant Name Role Phone Roper, Dino SalgadoEmil Primary Care Provider [phone] Source Comments [facility],non-owned Affiliates and Associated Physician Practices is amultiple site organization consisting of ambulatory clinics and hospital sitesin [place], [place], [place] and [place]. This disclosure is being madepursuant to the Care Everywhere program and may not contain all information available regarding this patient. Last updated 18.[facility] Allergies No known active allergies Medications * [...] age to complete this topic Care Teams Principal Consultant Relationship Specialty Start Date End Date Dino Roper DO [address] [place] [address] [place] [place] [address] PCP - General Family Medicine 08/30/20
--- OUTSIDE RECORDS SUMMARY | 2025-02-19 15:29 | XMS_ITS | Encounter Summary ---
Author Organization [facility] Address [address] [place] [address] Care Team Providers Care Part Time Flexible Clerk Name Role Phone Cody Roper DO Primary Care Provider David Bell MD Unavailable [phone] Encounter Details Date Type Department Care Team (Late st Contact Info) Description 01/12/2023 Telephone [facility] [address] [place] [address] [place] [address] [address] Social History Tobacco Use Types Packs/Day Years [...] on filedocumented in this encounter Care Teams Part Time Flexible Clerk Relationship Specialty Start Date End Date Cody Roper DO [address] [place] [address] PCP - General Family Medicine 07/02/19 David Bell MD [address] [place] [address] Medical Oncologist/Ic Engineer Hematology and Oncology 06/11/20 documented as of this encounter
--- OUTSIDE RECORDS SUMMARY | 2025-02-19 15:29 | XMS_ITS | Clinical Summary ---
Author Organization [facility] Address [address] [place] [address] Care Team Providers Care Foreign Exchange Position Clerk Name Role Phone Roper, Dino SalgadoEmil Primary Care Provider [phone] David Bell MD Unavailable [phone] Danilo Dolan MD Unavailable [phone] Harvey Liriano MD Unavailable Unavailable Allergies Active [...] Department Care Team Description 01/18/2025 9:58 AM FUNERAL LOCATION MANAGER - 01/18/2025 5:38 PM FUNERAL LOCATION MANAGER Emergency [facility] [place] [address] Marisela Houston PA Abdominal Pain Discharge Disposition: Home or Self Care (Routine Discharge) 01/18/2025 Travel 12/25/2024 2:46 PM FUNERAL LOCATION MANAGER - 12/25/2024 7:13 PM FUNERAL LOCATION MANAGER Emergency [facility] [place] [address] Radha Cortes NP Abdominal Pain Discharge Disposition: [...] place to sleep or slept in a prison (including now)? No 03/08/2023 Comments No Sex and Gender Information Value Date Recorded Sex Assigned at Female 12/25/2024 1:18 PM FUNERAL LOCATION MANAGER Legal Sex Female 4:07 PM FUNERAL LOCATION MANAGER Gender Identity Not on file Sexual Orientation Not on file Last Filed Vital Signs Vital Sign Reading Time Taken Comments Blood Pressure 140/93 01/18/2025 5:36 PM FUNERAL LOCATION MANAGER Pulse 96 01/18/2025 5:36 PM FUNERAL LOCATION MANAGER Temperature 36.1 C (97 F) 01/18/2025 10:33 AM FUNERAL LOCATION MANAGER Respiratory Rate 16 01/18/2025 5:36 PM FUNERAL LOCATION MANAGER Oxygen Saturation 100% 01/18/2025 5:36 PM FUNERAL LOCATION MANAGER Inhaled Oxygen Concentration - - Weight 73.5 kg (162 lb) 01/18/2025 9:05 AM FUNERAL LOCATION MANAGER Height 157.5 cm (5' 2 ) 01/18/2025 9:05 AM FUNERAL LOCATION MANAGER Body Mass Index 29.63 01/18/2025 9:05 AM FUNERAL LOCATION MANAGER Plan of Treatment Health Maintenance Due Date [...] Solis, RN Medical Devices Implanted Type Area Buckle Gluer Device Identifier Shelf Expiration Date Model / Serial / Lot Graft Bone I Factor 2.5cc Allograft Putty Syringe - [id number] Implanted:Qt y: 1 on 03/08/2023 by Danilo Dolan MD at [facility] Bone N/A: Spine Cervical [employer] [id number] 07/19/2025 700-025 / / [id number] Zavation Cage [id number] Implanted:Qt y: 1 on 03/08/2023 by Danilo Dolan MD at [facility] Cage N/A: Spine Cervical [id number] / / Description:At c6-7 Zavation [id number] Cage Implanted:Qt y: 1 on 03/08/2023 by Danilo Dolan MD at [facility] Cage N/A: Spine Cervical -605 / / Description:At c5-6 Zavation 32mm Plate Implanted:Qt y: 1 on 03/08/2023 by Danilo Dolan MD at [facility] Plate N/A: Spine Cervical 30-0232 / / Zavation 4.0x12mm Vsd Screw Implanted:Qt y: 6 on 03/08/2023 by Danilo Dolan MD at [facility] Screw N/A: Spine Cervical 31-4012 / / Tissue Surgiflo 8ml - [id number] Implanted:Qt y: 1 on 03/08/2023 by Danilo Dolan MD at [facility] Sealant N/A: Spine Cervical [employer] 04/18/2024 [id number] / / [id number] Procedures Procedure Name Priority Date/Time Associated Diagnosis Comments LACTIC ACID W REFLEX (SEPSIS) TIMED 01/18/2025 1:27 PM FUNERAL LOCATION MANAGER US PELVIC NON OB COMP TV STAT 01/18/2025 12:42 PM FUNERAL LOCATION MANAGER LACTIC ACID W REFLEX (SEPSIS) STAT 01/18/2025 10:59 AM FUNERAL LOCATION MANAGER CT ABD+PEL KIDNEY STONE STAT 01/18/2025 10:36 AM FUNERAL LOCATION MANAGER POCT URINE (BACK OFFICE) STAT 01/18/2025 10:10 AM FUNERAL LOCATION MANAGER HC URINALYSIS AUTO W/O MICRO STAT 01/18/2025 10:08 AM FUNERAL LOCATION MANAGER COMPREHENSIVE METABOLIC PANEL STAT 01/18/2025 10:08 AM FUNERAL LOCATION MANAGER CBC W/DIFF AUTOMATED STAT 01/18/2025 10:08 AM FUNERAL LOCATION MANAGER CT ABD+PEL W CON STAT 12/25/2024 5:06 PM FUNERAL LOCATION MANAGER URINE BACTERIA CULTURE STAT 3:53 PM FUNERAL LOCATION MANAGER HC URINALYSIS AUTO W/O MICRO STAT 12/25/2024 3:53 PM FUNERAL LOCATION MANAGER POCT URINE (BACK OFFICE) STAT 12/25/2024 3:52 PM FUNERAL LOCATION MANAGER LIPASE STAT 12/25/2024 3:38 PM FUNERAL LOCATION MANAGER COMPREHENSIVE METABOLIC PANEL STAT 12/25/2024 3:38 PM FUNERAL LOCATION MANAGER CBC W/DIFF AUTOMATED STAT 12/25/2024 3:38 PM FUNERAL LOCATION MANAGER from Last 3 Months Results * LACTIC ACID W REFLEX (SEPSIS) (01/18/2025 1:27 PM FUNERAL LOCATION MANAGER) Only the most recent of2 resultswithin the time period is included. LACTIC ACID VENOUS 1.3 0.4 - 2.0 MMOL/L 01/18/2025 3:22 PM FUNERAL LOCATION MANAGER [facility] 01/18/2025 1:27 PM FUNERAL LOCATION MANAGER Marisela Houston PA LABORATORY Final Resul t [facility] [address] [place] [address], * US PELVIC TV NON OB (01/18/2025 12:42 PM FUNERAL LOCATION MANAGER) Anatomical Region Laterality Modality Pelvis Ultrasound 01/18/2025 12:3 2 PM FUNERAL LOCATION MANAGER Impressions 01/18/2025 12:35 PM FUNERAL LOCATION MANAGER Impression: 1. No acute findings in the pelvis. Documented Doppler flow within both ovaries. 2. Simple appearing bilateral follicular cysts measuring up to 2.9 cm. No specific follow-up is required. Referred By: Interpreted By: Ciaran Márquez MD, 01/18/2025 12:32 PM Narrative 01/18/2025 12:35 PM FUNERAL LOCATION MANAGER [address] [address] Procedure: US PELVIC NON OB COMP TV [...] Procedure Note Ciaran Márquez MD - 01/18/[address] [address] Procedure: US PELVIC NON OB COMP TV [...] CT ABD+PEL KIDNEY STONE (01/18/2025 10:36 AM FUNERAL LOCATION MANAGER) Anatomical Region Laterality Modality Abdomen Computed Tomogra phy 01/18/2025 10:3 7 AM FUNERAL LOCATION MANAGER Impressions 01/18/2025 10:41 AM FUNERAL LOCATION MANAGER IMPRESSION: No acute inflammatory changes are present within the abdomen or pelvis. Bilateral nonobstructive nephrolithiasis. No hydronephrosis or hydroureter. Bilateral ovarian cysts are present. These can be seen normally in a patient of menstrual age. Referred By: Interpreted By: Carlos Moore MD, 01/18/2025 10:37 AM Narrative 01/18/2025 10:41 AM FUNERAL LOCATION MANAGER [address] [address] Procedure(s): CT ABD+PEL KIDNEY STONE Date of [...] Procedure Note Carlos Moore MD - 01/18/[address] [address] Procedure(s): CT ABD+PEL KIDNEY STONE Date of [...] t * POCT urine (01/18/2025 10:10 AM FUNERAL LOCATION MANAGER) Only the most recent of2 resultswithin the time period is included. URINE HCG TEST NEGATIVE Internal Control: VALID us Marisela CANADA POINT OF CARE TEST ORDERABL ES Final Result * (ABNORMAL) URINALYSIS (01/18/2025 10:08 AM FUNERAL LOCATION MANAGER) Only the most recent of2 resultswithin the time period is included. SPECIMEN TYPE URINE CLEAN CATCH 01/18/2025 10:10 AM FUNERAL LOCATION MANAGER [facility] COLOR (U) YELLOW 01/18/2025 10:35 AM FUNERAL LOCATION MANAGER [facility] TRANSPARENCY CLEAR 01/18/2025 10:35 AM [facility] SPECIFIC GRAVITY (U) 1.040(H) 1.001 - 1.030 01/18/2025 10:35 AM [facility] U PH 6.0 5.0 - 9.0 01/18/2025 10:35 AM [facility] LEUKOCYTES (U) NEGATIVE NEGATIVE 01/18/2025 10:35 AM [facility] NITRITES NEGATIVE NEGATIVE 01/18/2025 10:35 AM [facility] PROTEIN RANDOM (U) 10 <30 MG/DL 01/18/2025 10:35 AM [facility] GLUCOSE (U) NORMAL NORMAL MG/DL 01/18/2025 10:35 AM [facility] KETONES MG/DL (U) TRACE(A) NEGATIVE MG/DL 01/18/2025 10:35 AM [facility] UROBILINOGEN NORMAL NORMAL MG/DL 01/18/2025 10:35 AM [facility] BILIRUBIN (U) NEGATIVE NEGATIVE MG/DL 01/18/2025 10:35 AM [facility] BLOOD (U) NEGATIVE NEGATIVE 01/18/2025 10:35 AM [facility] URINE SPECIMEN OBTAINED BY CLEAN CATCH PROCEDURE / Unknown 01/18/2025 10:08 AM [facility] us Marisela CANADA URINE ORDERABLES Final Resu lt [facility] [address] [place] [address], [place] [phone] * (ABNORMAL) COMPREHENSIVE METABOLIC PANEL (01/18/2025 10:08 AM FUNERAL LOCATION MANAGER) Only the most recent of2 resultswithin the time period is included. GLUCOSE 152(H) 70 - 99 MG/DL 01/18/2025 10:43 AM [facility] BUN 14 7 - 18 MG/DL 01/18/2025 10:43 AM [facility] CREATININE S/P/B 0.90 0.55 - 1.02 MG/DL 01/18/2025 10:43 AM [facility] SODIUM S/P/B 135(L) 136 - 145 MMOL/L 01/18/2025 10:43 AM [facility] POTASSIUM S/P/B 4.3 3.5 - 5.1 MMOL/L 01/18/2025 10:43 AM [facility] CHLORIDE S/P/B 104 97 - 115 MMOL/L 01/18/2025 10:43 AM [facility] CO2 27.5 21 - 32 MMOL/L 01/18/2025 10:43 AM [facility] CALCIUM S/P/B 9.5 8.5 - 10.1 MG/DL 01/18/2025 10:43 AM [facility] BILIRUBIN TOTAL S/P/B 0.4 0.2 - 1.2 MG/DL 01/18/2025 10:43 AM [facility] Comment: THIS ASSAY IS NOT RECOMMENDED FOR PATIENTS UNDERGOING TREATMENT WITH ELTROMBOPAG DUE TO THE POTENTIAL FOR FALSELY ELEVATED RESULTS. TOTAL PROTEIN S/P/B 8.8(H) 6.4 - 8.2 G/DL 01/18/2025 10:43 AM [facility] ALBUMIN S/P/B 4.0 3.4 - 5.0 G/DL 01/18/2025 10:43 AM [facility] AST 23 15 - 37 U/L 01/18/2025 10:43 AM [facility] ALT 43 14 - 55 U/L 01/18/2025 10:43 AM [facility] ALKALINE PHOSPHATASE S/P/B 101 50 - 136 U/L 01/18/2025 10:43 AM [facility] ANION GAP 3.5 2 - 10 MMOL/L 01/18/2025 10:43 AM [facility] BUN CREATININE RATIO 15.6 6 - 26 01/18/2025 10:43 AM [facility] A/G RATIO 0.8(L) 1.0 - 2.0 RATIO 01/18/2025 10:43 AM [facility] GFR ESTIMATE 80(L) >90 ML/MIN/1.7 3 M2 01/18/2025 10:43 AM [facility] Comment: NOTE: eGFR is not calculated for patients <18 years of age or gender unknown. This is an estimated GFR calculation using the new CKD EPI creatinine equation without race and so does not require a correction factor for race. This estimated GFR should not be used for calculating drug doses. 01/18/2025 10:0 8 AM [facility] Marisela CANADA LABORATORY Final Resul t [facility] [address] [place] [address], * (ABNORMAL) CBC W/DIFF AUTOMATED (01/18/2025 10:08 AM FUNERAL LOCATION MANAGER) Only the most recent of2 resultswithin the time period is included. WBC 22.23(H) 4.5 - 11.0 x10'3/uL 01/18/2025 10:32 AM [facility] RBC 5.65(H) 4.20 - 5.40 x10'6/uL 01/18/2025 10:32 AM [facility] HGB 16.9(H) 12.0 - 16.0 G/DL 01/18/2025 10:32 AM [facility] HCT 51.5(H) 38.0 - 48.0 % 01/18/2025 10:32 AM [facility] MCV 91.2 81.0 - 99.0 FL 01/18/2025 10:32 AM [facility] MCH 29.9 27.0 - 31.0 PG 01/18/2025 10:32 AM [facility] MCHC 32.8 32.0 - 36.0 G/DL 01/18/2025 10:32 AM [facility] RDW 14.6(H) 11.5 - 14.5 % 01/18/2025 10:32 AM [facility] PLT 415(H) 130 - 400 x10'3/uL 01/18/2025 10:32 AM [facility] MPV 9.0(L) 9.3 - 12.2 FL 01/18/2025 10:32 AM [facility] DIFFERENTIAL TYPE AUTOMATED DIFFERENTIAL 01/18/2025 10:32 AM [facility] NEUTROPHILS % 78.3 % 01/18/2025 10:32 AM [facility] LYMPHOCYTES % 12.7 % 01/18/2025 10:32 AM [facility] MONOCYTES % 5.6 % 01/18/2025 10:32 AM [facility] EOSINOPHILS 2.4 % 01/18/2025 10:32 AM [facility] BASOPHILS 0.4 % 01/18/2025 10:32 AM [facility] IMMATURE GRANS % 0.6 % 01/19/20 10:32 AM FUNERAL LOCATION MANAGER [facility] ABS. NEUTROPHILS 17.39(H) 1.80 - 7.70 x10'3/uL 01/18/2025 10:32 AM FUNERAL LOCATION MANAGER [facility] ABS. LYMPHOCYTES 2.82 1.00 - 4.80 x10'3/uL 01/18/2025 10:32 AM FUNERAL LOCATION MANAGER [facility] ABS. MONOCYTES 1.25(H) 0.24 - 0.86 x10'3/uL 01/18/2025 10:32 AM FUNERAL LOCATION MANAGER [facility] ABS. EOSINOPHILS 0.53(H) 0.04 - 0.36 x10'3/uL 01/18/2025 10:32 AM [facility] ABS. BASOPHILS 0.10(H) 0.01 - 0.08 x10'3/uL 01/18/2025 10:32 AM FUNERAL LOCATION MANAGER [facility] ABS. IMMATURE GRANULOCYTES 0.14 0.00 - 0.49 x10'3/uL 01/18/2025 10:32 AM FUNERAL LOCATION MANAGER [facility] 01/18/2025 10:0 8 AM FUNERAL LOCATION MANAGER us Marisela CANADA LABORATORY Final Resul t [facility] [address] [place] [address], * CT ABD+PEL W CON (12/25/2024 5:06 PM FUNERAL LOCATION MANAGER) Anatomical Region Laterality Modality Abdomen Computed Tomogra phy 12/25/2024 5:28 PM FUNERAL LOCATION MANAGER Impressions 12/25/2024 5:34 PM FUNERAL LOCATION MANAGER IMPRESSION: 1. Bilateral nonobstructing nephrolithiasis measuring up to 14 x 7 mm on the left. Chronic left renal atrophy with multifocal cortical thinning/scarring. 2. Bilateral ovarian cysts measuring up to 2.8 cm. 3. Atherosclerosis. 4. Please see above for additional chronic, incidental, and nonemergent findings elsewhere. Referred By: Interpreted By: Yony Cornejo MD, 12/25/2024 5:28 PM Narrative 12/25/2024 5:34 PM FUNERAL LOCATION MANAGER [place] [address] EXAMINATION: CT Abdomen and Pelvis with contrast [...] Procedure Note Yony Cornejo MD - 12/25/2024 [facility] [address] [place], [place] [address] EXAMINATION: CT Abdomen and Pelvis with contrast [...] Cornejo MD, 12/25/2024 5:28 PM Senthil Thorpe CHALK MACHINE OPERATOR CT Final Result * (ABNORMAL) CULTURE URINE (12/25/2024 3:53 PM FUNERAL LOCATION MANAGER) SPEC DESCRIPTION URINE CLEAN CATCH 12/25/2024 3:52 PM FUNERAL LOCATION MANAGER [facility] SPECIAL REQUESTS NO SPECIAL REQUEST 12/25/2024 3:52 PM FUNERAL LOCATION MANAGER [facility] CULTURE RESULT 10,000-49,0 00 COL/ML ESCHERICHIA COLI (A) 12/27/2024 7:04 AM FUNERAL LOCATION MANAGER [facility] URINE SPECIMEN OBTAINED BY CLEAN CATCH PROCEDURE / Unknown 12/25/2024 3:53 PM FUNERAL LOCATION MANAGER 12/25/2024 3:57 PM FUNERAL LOCATION MANAGER Narrative Organism Antibiotic Method Susceptibility Escherichia coli [...] MICROBIOLOGY - GENERAL ORDERAB LES Final Result [facility] [address] [place] [address], * LIPASE (12/25/2024 3:38 PM FUNERAL LOCATION MANAGER) LIPASE 32 13 - 75 UNITS/L 12/25/2024 4:32 PM FUNERAL LOCATION MANAGER [facility] 12/25/2024 3:38 PM FUNERAL LOCATION MANAGER Senthil Thorpe CHALK MACHINE OPERATOR LABORATORY Final Result [facility] [address] [place] [address], from Last 3 Months Insurance [facility] Advance Directives * Full Code (Latest Code Status on File) Date Activated Date Inactivated Comments 03/09/2023 12:43 AM 03/09/2023 6:15 PM Care Teams Foreign Exchange Position Clerk Relationship Specialty Start Date End Date Dino Roper DO [address] [facility] [place] [address] PCP - General FAMILY PRACTICE 01/23/23 David Bell MD [address] [place] [address], [address] [place] [address] Referring Physician MEDICAL ONCOLOGY 03/01/23 Danilo Dolan MD [address] [address] NEUROLOGICAL SURGERY 03/01/23 Harvey Liriano MD 3 [facility] [address] [place] [address] CARDIOVASCULAR DISEASE 03/07/23
[2025-02-19 15:33] LABS: Alanine Aminotransferase 37 U/L (6-35); Albumin Level 5.2 g/dL (3.5-5.1); Alkaline Phosphatase 93 U/L (38-126); Anion Gap 13 mmol/L (4-12); Aspartate Amino Transferase 30 U/L (14-36); Bilirubin,Total 0.7 mg/dL (0.2-1.3); Blood Urea Nitrogen 10 mg/dL (7-17); Calcium 9.8 mg/dL (8.4-10.2); Carbon Dioxide 25 mmol/L (22-30); Chloride 103 mmol/L (98-107); Estimated CRCL calculation 88 ml/min; Estimated Glomerular Filt Rate > 60; Glucose 111 mg/dL (65-110); Lipase 126 U/L (23-300); Potassium 3.7 mmol/L (3.4-5.0); Sodium 141 mmol/L (137-145)
[2025-02-19 15:44] LABS: Add Urine Microscopic? YES; Appearance Urine Cloudy (Clear); Bacteria Urine None Seen /hpf; Bilirubin Urine Negative (Negative); Blood Urine 3+ (Negative); Color Urine Dark Yellow (Yellow); Glucose Urine UA Negative (Negative); Ketones Urine Trace mg/dL (Negative); Leukocyte Esterase Ur Trace LEU/UL (Negative); Need Manual Microscopic Reviewed; Nitrate Urine Negative (Negative); Protein Urine Trace mg/dL (Negative); RBC Urine 21-50 /hpf (0-2); Specific Grav Ur 1.026 (1.001-1.035); Squamous Epithelial Cell Urine Moderate /hpf (Few)
--- NOTE | 2025-02-19 15:46 | ED_ITS ---
HPI - Abdominal Pain General Chief Complaint: Abdominal Pain <FIDE Archer Last Filed: 02/20/25 10:06> Stated Complaint: Severe abdominal pain, diarrhea <FIDE Archer Last Filed: 02/20/25 10:06> Time Seen by Provider: 02/19/25 15:02 <FIDE Archer Last Filed: 02/20/25 10:06> Source: patient and old records reviewed <FIDE Archer Last Filed: 02/20/25 10:06> Mode of arrival: ambulatory <FIDE Archer Filed: 02/20/25 10:06> Limitations: no limitations <FIDE Archer Filed: 02/20/25 10:06> History of Present Illness HPI narrative: Patient is a 44-year-old female, with PMH of kidney stones, IBS, PCOS, who presents the ED with report of right upper quadrant abdominal pain. Patient reports pain began last night. Present in her right upper abdomen, radiates around to her right mid back, across her abdomen to her left lower quadrant. Has not taken anything for pain. Reports nausea, vomiting, diarrhea. Denies fevers, urinary complaints. Patient has history of similar pain in the past, has been seen in the ED here for similar pain multiple times. Has been seeing Dr. Vargas's office for GI complaints. <FIDE Archer Last Filed: 02/20/25 10:06> Related Data Home Medications: Home Medications ?Medication ?Instructions ?Recorded ?Confirmed ?Last Taken ?Type fluticasone 250 mcg-salmeterol 50 1 ea inhalation BID 02/14/24 02/12/25 02/05/25 History mcg/dose blistr powdr for inhalation metformin 500 mg tablet,extended 500 mg PO BID 02/14/24 02/12/25 10/14/24 History release 24 hr buspirone 15 mg tablet 15 mg PO TID 09/26/24 02/12/25 02/05/25 History <FIDE Archer Last Filed: 02/20/25 10:06> Allergies/Adverse Reactions: Allergies Allergy/AdvReac Type Severity Reaction Status Date / Time No Known Allergies Allergy Verified 02/19/25 14:13 <Noni Krueger PA-C - Last Filed: 02/20/25 10:06> Review of Systems 2 Review of Systems: All systems reviewed & are unremarkable except as noted in HPI. <Noni Krueger PA-C - Last Filed: 02/20/25 10:06> All systems reviewed & are unremarkable except as noted in HPI and below < Noni Krueger PA-C - Last Filed: 02/20/25 10:06> [facility] Past Medical History Medical History: Medical History Leukocytosis Chronic elevation with hematology consult in past. 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 <Noni Krueger PA-C - Last Filed: 02/20/25 10:06> Surgical History Surgical History: Surgical History History of appendectomy History of cholecystectomy History of cervical spinal surgery (03/08/23) anterior cervical discectomy and fusion <Noni Krueger PA-C - Last Filed: 02/20/25 10:06> Family History Family History: Family History Father Hypertension Patient's father is in good health Cerebrovascular accident Family history of heart disease in male family member before age 55 Mother Patient's mother is in good health Family history of diabetes mellitus in first degree relative Sibling Family history of diabetes mellitus in first degree relative <Noni Krueger PA-C - Last Filed: 02/20/25 10:06> Social History Social History: Social History Social History: Surrogate medical decision maker: Chinmay Muñoz, spouse ([phone]). Code status: Full code. Smoking packs per day: 1 Smoking cigarettes per day: 20.0 Years smoked: 30 Smoking pack-years: 30.00 Smoking status: Current every day smoker Tobacco type: cigarettes Second hand tobacco smoke exposure: Yes Alcohol intake: never Alcohol use details: rarely drinks, a couple time a month Substance use: current Substance use type: marijuana Other substance usage details: hs for insomnia Last use: Marijuana 10/14/24 Do You Feel Safe in your Home?: Yes Lack of Transportation: No Lack of Food: Never True Current Housing: I Have Housing Concerned About Future Housing: No Difficulty Paying Gas/Electric Bills: No Difficulty Paying for Meds: No Currently Unemployed: No Education: Grade School Difficulty w/ Childcare or Family Care: No Living arrangements: with family Additional living arrangements comments: Lives with father and . 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 Spiritual care concerns: No Agree to blood products: Yes <Noni Krueger PA-C - Last Filed: 02/20/25 10:06> Exam 2 Narrative: GENERAL: Well appearing, obese with BMI of 30.3, non-toxic, in no acute distress. HEAD: Normocephalic, atraumatic. RESPIRATORY: Airway patent, respirations nonlabored. Clear to auscultation bilaterally, no rales, rhonchi, wheezing. CARDIOVASCULAR: Regular rate and rhythm without murmurs, rubs, or gallops. ABDOMINAL: Soft, mild diffuse nonfocal tenderness throughout abdomen, no rebound, nondistended. Normoactive BS. MUSCULOSKELETAL: Moves all extremities. No gross deformities. No CVA tenderness SKIN: Warm, dry, normal color. NEURO: A&O X3. Speech clear. PSYCHIATRIC: Appropriate mood and affect. Normal interaction. <Noni Krueger PA-C - Last Filed: 02/20/25 10:06> Course USED CAR SALES MANAGER/PA Physician Supervision This visit was performed by both a physician and an APC. I performed all aspects of the MDM as documented. Patient with increased pain and right forearm after IV contrast extravasation. Patient developing tingling of the fingers and pain with passive range of motion. Compartments are tight on direct palpation. Dorsal compartment with 34 mmHg pressure, superficial volar compartment with 125 mmHg when tested twice. The [place] device was reset with each measurement. Transfer to tertiary care. Possible fasciotomy patient educated on this. <Pranav Golden MD - Last Filed: 02/19/25 22:16> Vital Signs Vital signs: Vital Signs Temperature 98.2 F 02/19/25 14:14 Pulse Rate 93 02/19/25 14:14 Respiratory Rate 18 02/19/25 14:14 Blood Pressure 140/88 02/19/25 14:14 Pulse Oximetry 99 02/19/25 14:14 Oxygen Delivery Room Air 02/19/25 14:14 Temperature 98.2 F 02/19/25 14:14 Pulse Rate 80 02/19/25 19:08 Respiratory Rate 22 H 02/19/25 19:08 Blood Pressure 166/92 H 02/19/25 19:08 Pulse Oximetry 100 02/19/25 19:08 Oxygen Delivery Room Air 02/19/25 14:14 <Noni Krueger PA-C - Last Filed: 02/20/25 10:06> Vital Signs Temperature 98.2 F 02/19/25 14:14 Pulse Rate 93 02/19/25 14:14 Respiratory Rate 18 02/19/25 14:14 Blood Pressure 140/88 02/19/25 14:14 Pulse Oximetry 99 02/19/25 14:14 Oxygen Delivery Room Air 02/19/25 14:14 Temperature 98.2 F 02/19/25 14:14 Pulse Rate 80 02/19/25 19:08 Respiratory Rate 22 H 02/19/25 19:08 Blood Pressure 166/92 H 02/19/25 19:08 Pulse Oximetry 100 02/19/25 19:08 Oxygen Delivery Room Air 02/19/25 14:14 <Pranav Golden MD - Last Filed: 02/19/25 22:16> MDM - Abdominal Pain MDM Narrative Medical decision making narrative: Patient presented to ED with right upper quadrant abdominal pain began last night. History of similar pain in the past. Has been seen in the ED here for similar complaints. Vital signs stable upon arrival. Patient is afebrile. Cbc with blood cell count of 19.4. Patient appears to have chronic leukocytosis per records, appears consistent. CMP is unremarkable. Normal LFTs and lipase. Stable kidney function. UA with trace ketones, 6-10 white blood cell count but moderate squamous cells. Does show trace evidence of blood. Sent for culture. Likely contaminated catch. Urine preg negative. CT abd/pelvis obtained: IMPRESSION: 1. Bilateral nonobstructing nephrolithiasis with mild left hydroureteronephrosis and associated mild inflammation surrounding the left ureter and renal pelvis. This could be related to recently passed stone or ascending urinary tract infection. Correlate with urinalysis. Patient has long history of previous kidney stones. Sees Dr. Mattson. Patient denies urinary symptoms at this time. Symptoms/pain are on right side. I have low suspicion for pyelonephritis at this time. Discussed possibility of recently passed stone. Patient's IV infiltrated with contrast in CT scan. Was notified by CT. Approx 75cc. I went to bedside to reevaluate patient. She does have moderate induration present to R forearm with diffuse tenderness. No overlying skin changes, erythema, or necrosis at this time. Patient reporting some decreased sensation to 2nd-5th fingers. Sensation intact to thumb and dorsal hand. Radial pulses intact. Capillary refill intact throughout all digits. Pulse ox WNL on all digits. Elevating arm, alternating between warm/cold compresses. Will give additional pain medication. Patient persistently calling out in pain. Forearm increasingly taut/indurated diffusely throughout forearm. She continues to have paresthesias in digits, pain with passive ROM of wrist flexion/extension. Will evaluate for compartment syndrome. Patient agreeable to [place] evaluation of forearm compartments. Performed by RG Sanderson. Pressures - 34 dorsal compartment of forearm Pressures - 120-125 superficial volar compartment of forearm -which was measured twice with resetting pen calibration each time. Patient continues to have good pulses at this time. She will require transfer for definitive management, evaluation of compartment syndrome and possible fasciotomy. Discussed case with Dr. Trang Loja, RG @ [facility], accepted patient for transfer. Will arrange emergent transfer. Patient in agreement w/ plan and transfer. <Noni Krueger PA-C - Last Filed: 02/20/25 10:06> Medical Records Attestation: I reviewed the patient's medical records. <Noni Krueger PA-C - Last Filed: 02/20/25 10:06> Lab Data Attestation: I reviewed the patient's lab results. <Noni Krueger PA-C - Last Filed: 02/20/25 10:06> Result diagrams: 02/19/25 15:06 02/19/25 15:06 <Noni Krueger PA-C - Last Filed: 02/20/25 10:06> Labs: Lab Results 02/19/25 02/19/25 Range/Units 15:06 15:08 WBC 19.4 H (4.5-10.0) K/mm3 RBC 5.59 H (4.2-5.4) M/mm3 Hgb 16.8 H (12.0-15.0) g/dL Hct 50.9 H (37.0-47.0) % MCV 91.1 (80-100) fl MCH 30.1 (26-34) pg MCHC 33.0 (32-36) g/dl RDW 14.2 (11.5-14.5) % Plt Count 343 (150-375) k/mm3 MPV 9.7 (7.4-10.4) fl Immature Gran % (Auto) 0.5 (0-0.5) % Neut % (Auto) 77.2 H (45.5-73.1) % Lymph % (Auto) 17.4 L (18.3-44.2) % [place] % (Auto) 4.2 (2.6-8.5) % Eos % (Auto) 0.4 (0-4.4) % Baso % (Auto) 0.3 (0.2-1.2) % Lymph # (Auto) 3.38 H (0.9-3.2) K/mm3 [place] # (Auto) 0.8 H (0.1-0.6) K/mm3 Eos # (Auto) 0.1 (0-0.3) K/mm3 Baso # (Auto) 0.1 (0.0-0.1) K/mm3 Abs Immat Gran (auto) 0.10 H (0.00-0.031) K/mm3 Absolute Neuts (auto) 15.0 H (1.3-6.7) K/mm3 Absolute Nucleated RBC 0.000 (0.0-0.012) K/mm3 Nucleated RBC % 0.0 (0.0-0.2) % Sodium 141 (137-145) mmol/L Potassium 3.7 (3.4-5.0) mmol/L Chloride 103 (98-107) mmol/L Carbon Dioxide 25 (22-30) mmol/L Anion Gap 13 H (4-12) mmol/L BUN 10 (7-17) mg/dL Creatinine 0.66 L (0.7-1.0) mg/dL Estim Creat Clear Calc 88 ml/min Estimated GFR > 60 (59 - ) Glucose 111 H (65-110) mg/dL Calcium 9.8 (8.4-10.2) mg/dL Total Bilirubin 0.7 (0.2-1.3) mg/dL AST 30 (14-36) U/L ALT 37 H (6-35) U/L Alkaline Phosphatase 93 (38-126) U/L Total Protein 10.0 H (6.3-8.2) g/dL Albumin 5.2 H (3.5-5.1) g/dL Lipase 126 (23-300) U/L Urine Color Dark yellow (Yellow) Urine Appearance Cloudy H (Clear) Urine pH 6.0 (5.0-9.0) Ur Specific [place] 1.026 (1.001-1.035) Urine Protein Trace (Negative) mg/dL Urine Glucose (UA) Negative (Negative) mg/dL Urine Ketones Trace H (Negative) mg/dL Ur Blood (Man) 3+ H (Negative) Urine Nitrate Negative (Negative) Urine Bilirubin Negative (Negative) Urine Urobilinogen 1.0 (<2.0) mg/dL Add Ur Microanalysis Reviewed Leukocyte Esterase Rfl Trace H (Negative) JOY/UL Urine RBC 21-50 H (0-2) /hpf Urine WBC 6-10 H (0-3) /hpf Ur Squamous Epith Cells Moderate (Few) /hpf Urine Bacteria None seen /hpf Urine Casts 3-5 POC Urine HCG, Qual Negative (Negative) <Noni Krueger PA-C - Last Filed: 02/20/25 10:06> Lab Results 02/19/25 02/19/25 Range/Units 15:06 15:08 WBC 19.4 H (4.5-10.0) K/mm3 RBC 5.59 H (4.2-5.4) M/mm3 Hgb 16.8 H (12.0-15.0) g/dL Hct 50.9 H (37.0-47.0) % MCV 91.1 (80-100) fl MCH 30.1 (26-34) pg MCHC 33.0 (32-36) g/dl RDW 14.2 (11.5-14.5) % Plt Count 343 (150-375) k/mm3 MPV 9.7 (7.4-10.4) fl Immature Gran % (Auto) 0.5 (0-0.5) % Neut % (Auto) 77.2 H (45.5-73.1) % Lymph % (Auto) 17.4 L (18.3-44.2) % [place] % (Auto) 4.2 (2.6-8.5) % Eos % (Auto) 0.4 (0-4.4) % Baso % (Auto) 0.3 (0.2-1.2) % Lymph # (Auto) 3.38 H (0.9-3.2) K/mm3 [place] # (Auto) 0.8 H (0.1-0.6) K/mm3 Eos # (Auto) 0.1 (0-0.3) K/mm3 Baso # (Auto) 0.1 (0.0-0.1) K/mm3 Abs Immat Gran (auto) 0.10 H (0.00-0.031) K/mm3 Absolute Neuts (auto) 15.0 H (1.3-6.7) K/mm3 Absolute Nucleated RBC 0.000 (0.0-0.012) K/mm3 Nucleated RBC % 0.0 (0.0-0.2) % Sodium 141 (137-145) mmol/L Potassium 3.7 (3.4-5.0) mmol/L Chloride 103 (98-107) mmol/L Carbon Dioxide 25 (22-30) mmol/L Anion Gap 13 H (4-12) mmol/L BUN 10 (7-17) mg/dL Creatinine 0.66 L (0.7-1.0) mg/dL Estim Creat Clear Calc 88 ml/min Estimated GFR > 60 (59 - ) Glucose 111 H (65-110) mg/dL Calcium 9.8 (8.4-10.2) mg/dL Total Bilirubin 0.7 (0.2-1.3) mg/dL AST 30 (14-36) U/L ALT 37 H (6-35) U/L Alkaline Phosphatase 93 (38-126) U/L Total Protein 10.0 H (6.3-8.2) g/dL Albumin 5.2 H (3.5-5.1) g/dL Lipase 126 (23-300) U/L Urine Color Dark yellow (Yellow) Urine Appearance Cloudy H (Clear) Urine pH 6.0 (5.0-9.0) Ur Specific [place] 1.026 (1.001-1.035) Urine Protein Trace (Negative) mg/dL Urine Glucose (UA) Negative (Negative) mg/dL Urine Ketones Trace H (Negative) mg/dL Ur Blood (Man) 3+ H (Negative) Urine Nitrate Negative (Negative) Urine Bilirubin Negative (Negative) Urine Urobilinogen 1.0 (<2.0) mg/dL Add Ur Microanalysis Reviewed Leukocyte Esterase Rfl Trace H (Negative) JOY/UL Urine RBC 21-50 H (0-2) /hpf Urine WBC 6-10 H (0-3) /hpf Ur Squamous Epith Cells Moderate (Few) /hpf Urine Bacteria None seen /hpf Urine Casts 3-5 POC Urine HCG, Qual Negative (Negative) <Pranav Golden MD - Last Filed: 02/19/25 22:16> Imaging Data Attestation: I personally reviewed and interpreted this imaging study as follows: < Noni Krueger PA-C - Last Filed: 02/20/25 10:06> Radiologist's impression: ITS Impressions Abdomen/Pelvis CT 02/19/25 16:34 IMPRESSION: 1. Bilateral nonobstructing nephrolithiasis with mild left hydroureteronephrosis and associated mild inflammation surrounding the left ureter and renal pelvis. This could be related to recently passed stone or ascending urinary tract infection. Correlate with urinalysis. <Noni Krueger PA-C - Last Filed: 02/20/25 10:06> ITS Impressions Abdomen/Pelvis CT 02/19/25 16:34 IMPRESSION: 1. Bilateral nonobstructing nephrolithiasis with mild left hydroureteronephrosis and associated mild inflammation surrounding the left ureter and renal pelvis. This could be related to recently passed stone or ascending urinary tract infection. Correlate with urinalysis. <Pranav Golden MD - Last Filed: 02/19/25 22:16> Discharge Plan Discharge Clinical Impression: Compartment syndrome of forearm, Right upper quadrant abdominal pain, Hydroureteronephrosis IV infiltration Qualifiers: Encounter type: initial encounter Qualified Code(s): T80.1XXA - Vascular complications following infusion, transfusion and therapeutic injection, initial encounter <FIDE Archer Last Filed: 02/20/25 10:06> Patient Disposition: [facility] <FIDE Archer Last Filed: 02/20/25 10:06> Condition: Serious <FIDE Archer Last Filed: 02/20/25 10:06> Patient Language: Burkinan <FIDE Archer Last Filed: 02/20/25 10:06> Prescriptions: No Action fluticasone propion-salmeterol 250-50 mcg/dose blister with device 1 ea INHALATION BID metformin 500 mg tablet extended release 24 hr 500 mg PO BID Patient Comments: Takes for PCOS buspirone 15 mg tablet 15 mg PO TID pantoprazole 40 mg tablet,delayed release (DR/EC) 40 mg PO HS 28 Days Qty: 28 0RF dicyclomine 20 mg tablet 20 mg PO BID PRN (Reason: abdominal pain) Qty: 10 0RF hydrocodone-acetaminophen 5-325 mg tablet 1 - 2 tablet PO Q6H PRN (Reason: pain) Qty: 20 0RF <Noni Krueger PA-C - Last Filed: 02/20/25 10:06> Follow-up/Referrals: Yvonne Vargas LPN [Primary Care Provider] - <FIDE Archer Last Filed: 02/20/25 10:06>
[2025-02-19] MEDS: MORPHINE SULFATE (*CRX) 4 MG/ML INJ IV PUSH (16:35)
[2025-02-19] MEDS: ONDANSETRON INJ 4 MG/2 ML VIAL IV PUSH (16:35)
[2025-02-19] MEDS: SODIUM CHLORIDE 0.9% IV 1,000 ML 999 ML IV CONT (16:36)
[2025-02-19] MEDS: FAMOTIDINE 20 MG/2 ML VIAL IV PUSH (16:36)
--- NOTE | 2025-02-19 16:39 | PC.NURSE ---
pt's IV infiltrated in CT with the contrast. IV removed, pt's arm is firm and pt states she can't feel her hand. Ice applied to extremity and elevated. EDP aware.
[2025-02-19] MEDS: HYDROmorphone HCL INJ (*CRX) 1 MG/ML SYR IV PUSH ×2 (17:56→19:01)
[2025-02-19 17:58] VITALS: BP 149/97; PULSE 99; RESP 22; O2SAT 100
--- NOTE | 2025-02-19 17:58 | PC.NURSE ---
1645-This RN was instructed to remove the ice and apply heat to the infiltrated extremity. pt states she still can not feel her hand. EDP aware.
[2025-02-19 19:08] VITALS: BP 166/92; PULSE 80; RESP 22; O2SAT 100
--- NOTE | 2025-02-19 19:21 | PC.NURSE ---
EMS arrives for patient
== END 2025-02-19 19:26 | disposition short-term general hospital (02) ==
PROVIDERS: Emergency Medicine; Emergency Provider Physician Assistant
DX: T80.1XXA Vascular complications following infusion, transfusion and therapeutic injection, initial encounter (principal); T79.A11A Traumatic compartment syndrome of right upper extremity, initial encounter; R10.11 Right upper quadrant pain; N13.30 Unspecified hydronephrosis; I10 Essential (primary) hypertension; E78.5 Hyperlipidemia, unspecified; F17.210 Nicotine dependence, cigarettes, uncomplicated; Z79.84 Long term (current) use of oral hypoglycemic drugs; X58.XXXA Exposure to other specified factors, initial encounter
CPT/HCPCS: 36415; 74176; 80053; 81001; 81025; 83690; 85025; 87086; 96361; 96374; 96375; 96376; 99285; J1171; J2270; J2405; J7030

== ENCOUNTER 2025-03-09 14:20 | Outpatient (CLI) | payer BC, SELFPAY ==
--- OUTSIDE RECORDS SUMMARY | 2025-03-09 16:18 | XMS_ITS | Continuity of Care Document ---
Author Organization [facility] Address [address] [place] [address] Phone Care Team Providers Care Religious Education Coordinator Name Role Phone Raz Zaldivar PT Unavailable Unavailable Procedures Procedure Date Therapeutic Activities Neuromuscular Re-Ed Manual Therapy Hot or Cold Pack Therapeutic Activities Neuromuscular Re-Ed Hot or Cold Pack Electrical Stimulation PT Evaluation Low Complexity Therapeutic Activities Hot or Cold Pack Advance Directives Directive Yes / No Effective Date File Name No Information Encounters Encounter Description Practice Location Reason(s) For Visit Diagnoses Date Provider Providers Copied on Encounter [facility], [place], [place], [id number], tel:[phone] [place] No Information 2 Zen Crandall. . [facility], [place], [place], [id number], tel:[phone] [employer] No Information 2 Zen Crandall. . Referring Provider: Cody Roper, [facility] [facility] [address], [place], [address]. tel:[phone] [facility], [place], [place], [id number], tel:[phone] [place] No Information 0 2 Zenbarrett Crandall. . Referring Provider: Cody Roper, [address] [facility] [address], [place], [address]. tel:[phone] [facility] [place], [address], [place], [place], [id number], tel:[phone] [place] No Information 2 Zenbarrett Crandall. . Referring Provider: Cody Roper, [address], [place], [address]. tel:[phone] Family History Family Member Type Diagnosis Age At Onset No Information Payers Payer name Insurance type Covered green party ID Authorantonio ramirez(s) [facility] [id number] Social History Type Description Quantity Date Captured [...]
--- OUTSIDE RECORDS SUMMARY | 2025-03-09 16:18 | XMS_ITS | Clinical Summary ---
Author Organization [facility] Address [address] [address] Care Team Providers Care Tile Mechanic Name Role Phone Roper, Dino SalgadoEmil Primary Care Provider [phone] Source Comments [facility],non-owned Affiliates and Associated Physician Practices is amultiple site organization consisting of ambulatory clinics and hospital sitesin [place], [place] and [place]. This disclosure is being madepursuant to the Care Everywhere program and may not contain all information available regarding this patient. Last updated 18.[facility] Allergies No known active allergies Medications * Be aware that medications may not be up to date on this document. Alwaysverify current medications with the patient. mometasone-formoter ol (Dulera) 200-5 MCG/ACT inhaler Inhale 2 (two) [...] 100 mg by mouth at bedtime Active HYDROcodone-acetami nophen (NORCO) 5-325 MG tablet Take 1 (one) tablet by mouth 2 times daily 3TID Active cetirizine (ZyrTEC) 10 MG tabletIndications:S easonal Allergic Rhinitis Take 1 (one) tablet by mouth once daily Reasons: Hayfever Active eluxadoline (Viberzi) 75 MG tablet Take 1 (one) tablet by mouth 2 times daily with morning and evening meal 100 bid Active acetaminophen (Tylenol) 500 MG tablet Take 2 (two) tablets by mouth every 6 hours as needed Active albuterol (Proventil;Ventolin ) (2.5 MG/3ML) 0.083% nebulizer solution 2.5 (two and one-half) mg as needed Active busPIRone (Buspar) 10 MG tablet Take 1 (one) tablet by mouth as needed Active Levocetirizine Dihydrochloride (XYZAL PO) Take 10 mg by mouth Active dicyclomine (Bentyl) 20 MG tablet Take 1 (one) tablet by mouth 3 times daily 2 Active metFORMIN ER 24hr (Glucophage XR) 500 MG tablet Take 1 (one) tablet by mouth 2 times daily 3 Active rosuvastatin (Crestor) 10 MG tablet Take 1 (one) tablet by mouth 3 Active metoprolol succinate XL 24hr (Toprol XL) 25 MG tablet Take 1 (one) tablet by mouth once daily 90 tablet 4 3 Active Social History Tobacco Use Types Packs/Day Years Used Date Smoking Tobacco: Every Day Cigarettes Smokeless Tobacco: Never Comments No Sex and Gender Information Value Date Recorded Sex Assigned at Not on file Legal Sex Female 4:17 AM SILK BRUSHER Gender Identity Not on file Sexual Orientation [...] VACCINE (1 - 2023-2 5 season) 2024 DEPRESSION SCREENING 11/19/2024 INFLUENZA [...] patient's age to complete this topic Insurance [place] BC/BLUE BLUE CROSS BLUE [facility] ANTH ANTHEM BC/BLUE BLUE CROSS BLUE [place] * Guarantor: LISSA OLIVARES Account Type Relation to Patient Date of Phone Billing Address Personal/Family [address] [place] [address] * Guarantor: LISSA OLIVARES Account Type Relation to Patient Date of Phone Billing Address Personal/Family [address] [place] [address] * Guarantor: LISSA OLIVARES Account Type Relation to Patient Date of Phone Billing Address Personal/Family [address] [place] [address] Care Teams Tile Mechanic Relationship Specialty Start Date End Date Dino Roper DO [address] [place] [address] PCP - General Family Medicine 08/30/20
--- OUTSIDE RECORDS SUMMARY | 2025-03-09 16:18 | XMS_ITS | Clinical Summary ---
Author Organization [facility] Address [address] [place] [address] Care Team Providers Care Hand Candy Dipper Name Role Phone Roper, Dino SalgadoEmil Primary Care Provider [phone] David Bell MD Unavailable [phone] Danilo Dolan MD Unavailable [phone] Harvey Liriano MD Unavailable Unavailable Allergies Active [...] available 1 each 12/25/19 25 026 Active Active Problems Problem Noted Date Diagnosed Date Cervical radiculopathy 03/08/2023 Encounters Date Type Department Care Team Description 01/18/2025 9:58 AM ENVIRONMENTAL PROTECTION GEOLOGIST - 01/18/2025 5:38 PM ENVIRONMENTAL PROTECTION GEOLOGIST Emergency [facility] [place] [address] Marisela Houston PA Abdominal Pain Discharge Disposition: Home or Self Care (Routine Discharge) 01/18/2025 Travel 12/25/2024 2:46 PM ENVIRONMENTAL PROTECTION GEOLOGIST - 12/25/2024 7:13 PM ENVIRONMENTAL PROTECTION GEOLOGIST Emergency [facility] Emergency Room [address] [place] [address] Radha Cortes NP Abdominal Pain Discharge Disposition: [...] Sex Assigned at Female 12/25/2024 1:18 PM ENVIRONMENTAL PROTECTION GEOLOGIST Legal Sex Female 4:07 PM ENVIRONMENTAL PROTECTION GEOLOGIST Gender Identity Not on file Sexual Orientation Not on file Last Filed Vital Signs Vital Sign Reading Time Taken Comments Blood Pressure 140/93 01/18/2025 5:36 PM ENVIRONMENTAL PROTECTION GEOLOGIST Pulse 96 01/18/2025 5:36 PM ENVIRONMENTAL PROTECTION GEOLOGIST Temperature 36.1 C (97 F) 01/18/2025 10:33 AM ENVIRONMENTAL PROTECTION GEOLOGIST Respiratory Rate 16 01/18/2025 5:36 PM ENVIRONMENTAL PROTECTION GEOLOGIST Oxygen Saturation 100% 01/18/2025 5:36 PM ENVIRONMENTAL PROTECTION GEOLOGIST Inhaled Oxygen Concentration - - Weight 73.5 kg (162 lb) 01/18/2025 9:05 AM ENVIRONMENTAL PROTECTION GEOLOGIST Height 157.5 cm (5' 2 ) 01/18/2025 9:05 AM ENVIRONMENTAL PROTECTION GEOLOGIST Body Mass Index 29.63 01/18/2025 9:05 AM ENVIRONMENTAL PROTECTION GEOLOGIST Plan of Treatment Health Maintenance Due Date Last Done Comments Cervical Cancer Screening Pa p Smear (Age 30 to 64) Every 3 Years 1979 Colorectal Cancer Screening Colonoscopy (10 Years) 1979 Annual Physical 1982 Hepatitis C 1997 DTaP, Tdap and Td Vaccines ( 1 - Tdap) 1998 Hepatitis B Vaccines (1 of 3 - 19+ 3-dose series) 1998 Pneumococcal Vaccine: Pediat rics (0 to 5 Years) and At-Risk Patients (6 to 49 Years) (1 of 2 - PCV) 1998 Cervical Cancer Screening Pa p with [...] Solis, RN Medical Devices Implanted Type Area Manager Long Term Care Device Identifier Shelf Expiration Date Model / Serial / Lot Graft Bone I Factor 2.5cc Allograft Putty Syringe - [id number] Implanted:Qt y: 1 on 03/08/2023 by Danilo Dolan MD at [facility] Bone N/A: Spine Cervical [employer] [id number] 07/19/2025 700-025 / / [id number] Zavation Cage [id number] Implanted:Qt y: 1 on 03/08/2023 by Danilo Dolan MD at [facility] Cage N/A: Spine Cervical 20-0607 / / Description:At c6-7 Zavation [id number] Cage Implanted:Qt y: 1 on 03/08/2023 by Danilo Dloan MD at [facility] Cage N/A: Spine Cervical 20-0606 / / Description:At c5-6 Zavation 32mm Plate Implanted:Qt y: 1 on 03/08/2023 by Danilo Dolan MD at [facility] Plate N/A: Spine Cervical 30-0232 / / Zavation 4.0x12mm Vsd Screw Implanted:Qt y: 6 on 03/08/2023 by Danilo Dolan MD at [facility] Screw N/A: Spine Cervical 31-4012 / / Tissue Surgiflo 8ml - [id number] Implanted:Qt y: 1 on 03/08/2023 by Danilo Dolan MD at [facility] Sealant N/A: Spine Cervical [employer] 04/18/2024 [id number] / / [id number] Procedures Procedure Name Priority Date/Time Associated Diagnosis Comments LACTIC ACID W REFLEX (SEPSIS) TIMED 01/18/2025 1:27 PM ENVIRONMENTAL PROTECTION GEOLOGIST US PELVIC NON OB COMP TV STAT 01/18/2025 12:42 PM ENVIRONMENTAL PROTECTION GEOLOGIST LACTIC ACID W REFLEX (SEPSIS) STAT 01/18/2025 10:59 AM ENVIRONMENTAL PROTECTION GEOLOGIST CT ABD+PEL KIDNEY STONE STAT 01/18/2025 10:36 AM ENVIRONMENTAL PROTECTION GEOLOGIST POCT URINE (BACK OFFICE) STAT 01/18/2025 10:10 AM ENVIRONMENTAL PROTECTION GEOLOGIST HC URINALYSIS AUTO W/O MICRO STAT 01/18/2025 10:08 AM ENVIRONMENTAL PROTECTION GEOLOGIST COMPREHENSIVE METABOLIC PANEL STAT 01/18/2025 10:08 AM ENVIRONMENTAL PROTECTION GEOLOGIST CBC W/DIFF AUTOMATED STAT 01/18/2025 10:08 AM ENVIRONMENTAL PROTECTION GEOLOGIST CT ABD+PEL W CON STAT 12/25/2024 5:06 PM ENVIRONMENTAL PROTECTION GEOLOGIST URINE BACTERIA CULTURE STAT 3:53 PM ENVIRONMENTAL PROTECTION GEOLOGIST HC URINALYSIS AUTO W/O MICRO STAT 12/25/2024 3:53 PM ENVIRONMENTAL PROTECTION GEOLOGIST POCT URINE (BACK OFFICE) STAT 12/25/2024 3:52 PM ENVIRONMENTAL PROTECTION GEOLOGIST LIPASE STAT 12/25/2024 3:38 PM ENVIRONMENTAL PROTECTION GEOLOGIST COMPREHENSIVE METABOLIC PANEL STAT 12/25/2024 3:38 PM ENVIRONMENTAL PROTECTION GEOLOGIST CBC W/DIFF AUTOMATED STAT 12/25/2024 3:38 PM ENVIRONMENTAL PROTECTION GEOLOGIST from Last 3 Months Results * LACTIC ACID W REFLEX (SEPSIS) (01/18/2025 1:27 PM ENVIRONMENTAL PROTECTION GEOLOGIST) Only the most recent of2 resultswithin the time period is included. LACTIC ACID VENOUS 1.3 0.4 - 2.0 MMOL/L 01/18/2025 3:22 PM ENVIRONMENTAL PROTECTION GEOLOGIST [facility] 01/18/2025 1:27 PM ENVIRONMENTAL PROTECTION GEOLOGIST us [facility] Final Resul t [facility] [address] [place] [address], * US PELVIC TV NON OB (01/18/2025 12:42 PM ENVIRONMENTAL PROTECTION GEOLOGIST) Anatomical Region Laterality Modality Pelvis Ultrasound 01/18/2025 12:3 2 PM ENVIRONMENTAL PROTECTION GEOLOGIST Impressions 01/18/2025 12:35 PM ENVIRONMENTAL PROTECTION GEOLOGIST Impression: 1. No acute findings in the pelvis. Documented Doppler flow within both ovaries. 2. Simple appearing bilateral follicular cysts measuring up to 2.9 cm. No specific follow-up is required. Referred By: Interpreted By: Ciaran Márquez MD, 01/18/2025 12:32 PM Narrative 01/18/2025 12:35 PM ENVIRONMENTAL PROTECTION GEOLOGIST [facility] [address] Procedure: US PELVIC NON OB COMP TV [...] Procedure Note Ciaran Márquez MD - 01/18/[address] [address] Procedure: US PELVIC NON OB COMP TV [...] CT ABD+PEL KIDNEY STONE (01/18/2025 10:36 AM ENVIRONMENTAL PROTECTION GEOLOGIST) Anatomical Region Laterality Modality Abdomen Computed Tomogra phy 01/18/2025 10:3 7 AM ENVIRONMENTAL PROTECTION GEOLOGIST Impressions 01/18/2025 10:41 AM ENVIRONMENTAL PROTECTION GEOLOGIST IMPRESSION: No acute inflammatory changes are present within the abdomen or pelvis. Bilateral nonobstructive nephrolithiasis. No hydronephrosis or hydroureter. Bilateral ovarian cysts are present. These can be seen normally in a patient of menstrual age. Referred By: Interpreted By: Carlos Moore MD, 01/18/2025 10:37 AM Narrative 01/18/2025 10:41 AM ENVIRONMENTAL PROTECTION GEOLOGIST [address] [address] Procedure(s): CT ABD+PEL KIDNEY STONE Date of [...] Procedure Note Carlos Moore MD - 01/18/[address] [address] Procedure(s): CT ABD+PEL KIDNEY STONE Date of [...] t * POCT urine (01/18/2025 10:10 AM ENVIRONMENTAL PROTECTION GEOLOGIST) Only the most recent of2 resultswithin the time period is included. URINE HCG TEST NEGATIVE Internal Control: VALID us Marisela [facility] POINT OF CARE TEST ORDERABL ES Final Result * (ABNORMAL) URINALYSIS (01/18/2025 10:08 AM ENVIRONMENTAL PROTECTION GEOLOGIST) Only the most recent of2 resultswithin the time period is included. SPECIMEN TYPE URINE CLEAN CATCH 01/18/2025 10:10 AM ENVIRONMENTAL PROTECTION GEOLOGIST [facility] COLOR (U) YELLOW 01/18/2025 10:35 AM ENVIRONMENTAL PROTECTION GEOLOGIST [facility] TRANSPARENCY CLEAR 01/18/2025 10:35 AM ENVIRONMENTAL PROTECTION GEOLOGIST [facility] SPECIFIC GRAVITY (U) 1.040(H) 1.001 - 1.030 01/18/2025 10:35 AM [facility] U PH 6.0 5.0 - 9.0 01/18/2025 10:35 AM [facility] LEUKOCYTES (U) NEGATIVE NEGATIVE 01/18/2025 10:35 AM [facility] NITRITES NEGATIVE NEGATIVE 01/18/2025 10:35 AM [facility] PROTEIN RANDOM (U) 10 <30 MG/DL 01/18/2025 10:35 AM [facility] GLUCOSE (U) NORMAL NORMAL MG/DL 01/18/2025 10:35 AM [facility] KETONES MG/DL (U) TRACE(A) NEGATIVE MG/DL 01/18/2025 10:35 AM [facility] UROBILINOGEN NORMAL NORMAL MG/DL 01/18/2025 10:35 AM [facility] BILIRUBIN (U) NEGATIVE NEGATIVE MG/DL 01/18/2025 10:35 AM [facility] BLOOD (U) NEGATIVE NEGATIVE 01/18/2025 10:35 AM [facility] URINE SPECIMEN OBTAINED BY CLEAN CATCH PROCEDURE / Unknown 01/18/2025 10:08 AM [facility] us Marisela [facility] URINE ORDERABLES Final Resu lt [facility] [address] [place] [address], [place] [phone] * (ABNORMAL) COMPREHENSIVE METABOLIC PANEL (01/18/2025 10:08 AM [facility]) Only the most recent of2 resultswithin the time period is included. GLUCOSE 152(H) 70 - 99 MG/DL 01/18/2025 10:43 AM [facility] BUN 14 7 - 18 MG/DL 01/18/2025 10:43 AM [facility] CREATININE S/P/B 0.90 0.55 - 1.02 MG/DL 01/18/2025 10:43 AM [facility] SODIUM S/P/B 135(L) 136 - 145 MMOL/L 01/18/2025 10:43 AM [facility] POTASSIUM S/P/B 4.3 3.5 - 5.1 MMOL/L 01/18/2025 10:43 AM [facility] CHLORIDE S/P/B 104 97 - 115 MMOL/L 01/18/2025 10:43 AM [facility] CO2 27.5 21 - 32 MMOL/L 01/18/2025 10:43 AM [facility] CALCIUM S/P/B 9.5 8.5 - 10.1 MG/DL 01/18/2025 10:43 AM [facility] BILIRUBIN TOTAL S/P/B 0.4 0.2 - 1.2 MG/DL 01/18/2025 10:43 AM [facility] Comment: THIS ASSAY IS NOT RECOMMENDED FOR PATIENTS UNDERGOING TREATMENT WITH ELTROMBOPAG DUE TO THE POTENTIAL FOR FALSELY ELEVATED RESULTS. TOTAL PROTEIN S/P/B 8.8(H) 6.4 - 8.2 G/DL 01/18/2025 10:43 AM [facility] ALBUMIN S/P/B 4.0 3.4 - 5.0 G/DL 01/18/2025 10:43 AM [facility] AST 23 15 - 37 U/L 01/18/2025 10:43 AM [facility] ALT 43 14 - 55 U/L 01/18/2025 10:43 AM [facility] ALKALINE PHOSPHATASE S/P/B 101 50 - 136 U/L 01/18/2025 10:43 AM ENVIRONMENTAL PROTECTION GEOLOGIST [facility] ANION GAP 3.5 2 - 10 MMOL/L 01/18/2025 10:43 AM [facility] BUN CREATININE RATIO 15.6 6 - 26 01/18/2025 10:43 AM [facility] A/G RATIO 0.8(L) 1.0 - 2.0 RATIO 01/18/2025 10:43 AM [facility] GFR ESTIMATE 80(L) >90 ML/MIN/1.7 3 M2 01/18/2025 10:43 AM [facility] Comment: NOTE: eGFR is not calculated for patients <18 years of age or gender unknown. This is an estimated GFR calculation using the new CKD EPI creatinine equation without race and so does not require a correction factor for race. This estimated GFR should not be used for calculating drug doses. 01/18/2025 10:0 8 AM ENVIRONMENTAL PROTECTION GEOLOGIST us [facility] Final Resul t [facility] [address] [place] [address], [place] [phone] * (ABNORMAL) CBC W/DIFF AUTOMATED (01/18/2025 10:08 AM ENVIRONMENTAL PROTECTION GEOLOGIST) Only the most recent of2 resultswithin the time period is included. WBC 22.23(H) 4.5 - 11.0 x10'3/uL 01/18/2025 10:32 AM ENVIRONMENTAL PROTECTION GEOLOGIST [facility] RBC 5.65(H) 4.20 - 5.40 x10'6/uL 01/18/2025 10:32 AM [facility] HGB 16.9(H) 12.0 - 16.0 G/DL 01/18/2025 10:32 AM [facility] HCT 51.5(H) 38.0 - 48.0 % 01/18/2025 10:32 AM [facility] MCV 91.2 81.0 - 99.0 FL 01/18/2025 10:32 AM [facility] MCH 29.9 27.0 - 31.0 PG 01/18/2025 10:32 AM [facility] MCHC 32.8 32.0 - 36.0 G/DL 01/18/2025 10:32 AM [facility] RDW 14.6(H) 11.5 - 14.5 % 01/18/2025 10:32 AM [facility] PLT 415(H) 130 - 400 x10'3/uL 01/18/2025 10:32 AM [facility] MPV 9.0(L) 9.3 - 12.2 FL 01/18/2025 10:32 AM [facility] DIFFERENTIAL TYPE AUTOMATED DIFFERENTIAL 01/18/2025 10:32 AM [facility] NEUTROPHILS % 78.3 % 01/18/2025 10:32 AM [facility] LYMPHOCYTES % 12.7 % 01/18/2025 10:32 AM [facility] MONOCYTES % 5.6 % 01/18/2025 10:32 AM [facility] EOSINOPHILS 2.4 % 01/18/2025 10:32 AM [facility] BASOPHILS 0.4 % 01/18/2025 10:32 AM [facility] IMMATURE GRANS % 0.6 % 01/19/20 10:32 AM [facility] ABS. NEUTROPHILS 17.39(H) 1.80 - 7.70 x10'3/uL 01/18/2025 10:32 AM ENVIRONMENTAL PROTECTION GEOLOGIST [facility] ABS. LYMPHOCYTES 2.82 1.00 - 4.80 x10'3/uL 01/18/2025 10:32 AM ENVIRONMENTAL PROTECTION GEOLOGIST [facility] ABS. MONOCYTES 1.25(H) 0.24 - 0.86 x10'3/uL 01/18/2025 10:32 AM ENVIRONMENTAL PROTECTION GEOLOGIST [facility] ABS. EOSINOPHILS 0.53(H) 0.04 - 0.36 x10'3/uL 01/18/2025 10:32 AM ENVIRONMENTAL PROTECTION GEOLOGIST [facility] ABS. BASOPHILS 0.10(H) 0.01 - 0.08 x10'3/uL 01/18/2025 10:32 AM ENVIRONMENTAL PROTECTION GEOLOGIST [facility] ABS. IMMATURE GRANULOCYTES 0.14 0.00 - 0.49 x10'3/uL 01/18/2025 10:32 AM ENVIRONMENTAL PROTECTION GEOLOGIST [facility] 01/18/2025 10:0 8 AM ENVIRONMENTAL PROTECTION GEOLOGIST Marisela Houston PA LABORATORY Final Resul t [facility] [address] [place] [address], * CT ABD+PEL W CON (12/25/2024 5:06 PM ENVIRONMENTAL PROTECTION GEOLOGIST) Anatomical Region Laterality Modality Abdomen Computed Tomogra phy 12/25/2024 5:28 PM ENVIRONMENTAL PROTECTION GEOLOGIST Impressions 12/25/2024 5:34 PM ENVIRONMENTAL PROTECTION GEOLOGIST IMPRESSION: 1. Bilateral nonobstructing nephrolithiasis measuring up to 14 x 7 mm on the left. Chronic left renal atrophy with multifocal cortical thinning/scarring. 2. Bilateral ovarian cysts measuring up to 2.8 cm. 3. Atherosclerosis. 4. Please see above for additional chronic, incidental, and nonemergent findings elsewhere. Referred By: Interpreted By: Yony Cornejo MD, 12/25/2024 5:28 PM Narrative 12/25/2024 5:34 PM ENVIRONMENTAL PROTECTION GEOLOGIST [address] [address] EXAMINATION: CT Abdomen and Pelvis with contrast [...] Procedure Note Yony Cornejo MD - 12/25/[address] [address] EXAMINATION: CT Abdomen and Pelvis with contrast [...] By: Yony Cornejo MD, 12/25/2024 5:28 PM us Senthil Thorpe NP CT Final Result * (ABNORMAL) CULTURE URINE (12/25/2024 3:53 PM ENVIRONMENTAL PROTECTION GEOLOGIST) SPEC DESCRIPTION URINE CLEAN CATCH 12/25/2024 3:52 PM ENVIRONMENTAL PROTECTION GEOLOGIST [facility] SPECIAL REQUESTS NO SPECIAL REQUEST 12/25/2024 3:52 PM ENVIRONMENTAL PROTECTION GEOLOGIST [facility] CULTURE RESULT 10,000-49,0 00 COL/ML ESCHERICHIA COLI (A) 12/27/2024 7:04 AM ENVIRONMENTAL PROTECTION GEOLOGIST [facility] URINE SPECIMEN OBTAINED BY CLEAN CATCH PROCEDURE / Unknown 12/25/2024 3:53 PM ENVIRONMENTAL PROTECTION GEOLOGIST 12/25/2024 3:57 PM ENVIRONMENTAL PROTECTION GEOLOGIST Narrative Organism Antibiotic Method Susceptibility Escherichia coli [...] Escherichia coli TRIMETH-SULFAMETH. BITA (VITEK) <=20: Sensitive us Senthil Thorpe NP MICROBIOLOGY - GENERAL ORDERAB LES Final Result [facility] [address] [place] [address], [place] [phone] * LIPASE (12/25/2024 3:38 PM ENVIRONMENTAL PROTECTION GEOLOGIST) LIPASE 32 13 - 75 UNITS/L 12/25/2024 4:32 PM ENVIRONMENTAL PROTECTION GEOLOGIST [facility] 12/25/2024 3:38 PM ENVIRONMENTAL PROTECTION GEOLOGIST us Senthil Thorpe METAL [employer]IMMER LABORATORY Final Result [facility] [address] [place] [address], [place] [phone] from Last 3 Months Insurance [facility] Advance Directives * Full Code (Latest Code Status on File) Date Activated Date Inactivated Comments 03/09/2023 12:43 AM 03/09/2023 6:15 PM Care Teams Hand Candy Dipper Relationship Specialty Start Date End Date Dino Roper DO [address] [place] [address] PCP - General FAMILY PRACTICE 01/23/23 David Bell MD [address] [place] [address], [address] [place] [address] Referring Physician MEDICAL ONCOLOGY 03/01/23 Danilo Dolan MD [address] [address] NEUROLOGICAL SURGERY 03/01/23 Harvey Liriano MD 3 [facility] [address] [address] [place] [address] CARDIOVASCULAR DISEASE 03/07/23
--- OUTSIDE RECORDS SUMMARY | 2025-03-09 16:18 | XMS_ITS | Continuity of Care Document ---
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 Name Role Phone Cody Roper DO Unavailable [...] QN (URINE) CREATININE, (U-R) ROUTINE VENIPUNCTURE OFFICE MCOTE-TPA-ICJHMDTK BODY MASS INDEX DOCD SYST BP GE 130 - 139MM HG DIAST BP 80-89 MM HG GENERAL HEALTH PANEL LIPID PANEL ROUTINE VENIPUNCTURE OFFICE GZLKD-PBZ-JVDPNSDP BODY MASS INDEX DOCD SYST BP LT 130 MM HG DIAST BP < 80 MM HG VITAMIN D, 25-HYDROXY OFFICE BIGFC-YVP-CRFJGJSY BODY MASS INDEX DOCD SYST BP LT 130 MM HG DIAST BP 80-89 MM HG ANTINUCLEAR ANTIBODIES (JAYCE) BASIC METABOLIC PANEL(BMP) C-REACTIVE PROTEIN (CRP) HEMATOCRIT (HCT) HEMOGLOBIN (HGB) HEMOGLOBIN A1C HGA1C, GLYCO RHEUMATOID FACTOR: QN RBC SED RATE, AUTOMATED URIC ACID, (S) URINALYSIS, DIPSTICK (UA) - Office Lab D ROUTINE VENIPUNCTURE OFFICE SLVGW-OSH-CRTROVGL BODY MASS INDEX DOCD SYST BP LT 130 MM HG DIAST BP 80-89 MM HG BASIC METABOLIC PANEL(BMP) HEMATOCRIT (HCT) HEMOGLOBIN (HGB) HEMOGLOBIN A1C HGA1C, GLYCO LIPID PANEL VITAMIN D, 25-HYDROXY ROUTINE VENIPUNCTURE Pt inelig neg scrn depres OFFICE SLAGK-SFX-HJHINWIJ BODY MASS INDEX DOCD SYST BP GE 130 - 139MM HG DIAST BP 80-89 MM HG EKG (ELECTROCARDIOGRAM) OFFICE UAYNU-WUM-OZQJAXEM BODY MASS INDEX DOCD SYST BP GE [...] - Office Lab J ROUTINE VENIPUNCTURE OFFICE JVFMH-JEN-LHVLBMJH BODY MASS INDEX DOCD SYST BP GE 130 - 139MM HG DIAST BP 80-89 MM HG OFFICE EWEVI-NKJ-OTKPWSGI BODY MASS INDEX DOCD SYST BP LT 130 MM HG DIAST BP < 80 MM HG DSCHRG MED/CURRENT MED MERGE OFFICE QZGEC-JTC-QMKNJPTE SYST BP LT 130 MM HG DIAST BP 80-89 MM HG CBC, INC PLATELETS AND DIFFERENTIAL COMPREHEN METABOLIC PANEL CMP HEMOGLOBIN A1C HGA1C, GLYCO LIPID PANEL VITAMIN D, 25-HYDROXY URINALYSIS, DIPSTICK (UA) - Office Lab S ROUTINE VENIPUNCTURE OFFICE FEHEY-SBM-YUDIDBYV BODY MASS INDEX DOCD SYST BP LT 130 MM HG DIAST BP 80-89 MM HG URINALYSIS W MICROSCOPIC (UA) URINALYSIS, DIPSTICK (UA) - Office Lab S Brief Emotional/Behavioral A ssessment, With Scoring/Doct, Per Stndrd Instrument Pt inelig neg scrn depres BASIC METABOLIC PANEL(BMP) HEMATOCRIT (HCT) HEMOGLOBIN (HGB) ROUTINE VENIPUNCTURE HEMOGLOBIN A1C HGA1C, GLYCO MICROALBUMIN, QN (URINE) CREATININE, (U-R) OFFICE XUMSI-BNY-WSXVUMPY BODY MASS INDEX DOCD SYST BP GE 130 - 139MM HG DIAST BP 80-89 MM HG CBC, INC PLATELETS AND DIFFERENTIAL COMPREHEN METABOLIC PANEL CMP 2 HEMOGLOBIN A1C HGA1C, GLYCO LIPID PANEL VITAMIN D, 25-HYDROXY MICROALBUMIN, SEMIQN(RGT STRIP) - OL Jan ROUTINE VENIPUNCTURE OFFICE PZEII-UUT-HSDZQPXF BODY MASS INDEX DOCD SYST BP LT 130 MM HG DIAST BP 80-89 MM HG EKG (ELECTROCARDIOGRAM) OFFICE DXJBU-ODA-FIRXHSAK BODY MASS INDEX DOCD SYST BP LT 130 MM HG DIAST BP 80-89 MM HG OFFICE NKMKF-XTG-MJOHELYQ BODY MASS INDEX DOCD SYST BP LT 130 MM HG DIAST BP 80-89 MM HG KENALOG 10 MG INJ; MULTIPLE TRIGGER PTS, 1 OR 2 MUSCLE GROUPS OFFICE DYPND-IXB-XEZFEUZF BODY MASS INDEX DOCD SYST BP LT 130 MM HG DIAST BP 80-89 MM HG OFFICE OVKDB-LFA-XSVUHJBY BODY MASS INDEX DOCD SYST BP GE 130 - 139MM HG DIAST BP 80-89 MM HG CBC, INC PLATELETS AND DIFFERENTIAL COMPREHEN METABOLIC PANEL CMP 1 HEMOGLOBIN A1C HGA1C, GLYCO LIPID PANEL ROUTINE VENIPUNCTURE Pt inelig neg scrn depres OFFICE GHPQM-PZZ-LWZXQNWZ BODY MASS INDEX DOCD SYST BP LT 130 MM HG DIAST BP 80-89 MM HG CBC, INC PLATELETS AND DIFFERENTIAL COMPREHEN METABOLIC PANEL CMP 1 HEMOGLOBIN A1C HGA1C, GLYCO ROUTINE VENIPUNCTURE OFFICE LCQHV-NSW-XXURWCTI BODY MASS INDEX DOCD SYST BP >= 140 MM HG6 IT DIAST BP 80-89 MM HG CBC, INC PLATELETS AND DIFFERENTIAL COMPREHEN METABOLIC PANEL CMP 1 HEMOGLOBIN A1C HGA1C, GLYCO ROUTINE VENIPUNCTURE OFFICE SSBLN-NVY-ADXNJOVA BODY MASS INDEX DOCD SYST BP LT 130 MM HG DIAST BP < 80 MM HG DEAMIDATED GLADIN PEPTIDE IGA 0 DEAMIDATED GLADIN PEPTIDE IGG 0 TISSUE TRANSGLUTIMASE IGA TISSUE TRANSGLUTIMASE IGG ROUTINE VENIPUNCTURE BODY MASS INDEX DOCD SYST BP GE 130 - 139MM HG DIAST BP 80-89 MM HG OFFICE UDQOO-ZEA-DGAALWFC OFFICE LDYKE-TWM-MVZEWUKQ BODY MASS INDEX DOCD SYST BP LT 130 MM HG DIAST BP < 80 MM HG CBC, INC PLATELETS AND DIFFERENTIAL COMPREHEN METABOLIC PANEL CMP 0 HEMOGLOBIN A1C HGA1C, GLYCO LIPID PANEL ROUTINE VENIPUNCTURE Brief Emotional/Behavioral A ssessment, With Scoring/Doct, Per Stndrd Instrument Pt inelig neg scrn depres Kept Appointment No Charge Encounter Jul OFFICE KAAEU-FMY-IGVPZGDX BODY MASS INDEX DOCD SYST BP LT [...] SCREENING FOR PAP (OBTAINING SPECIMEN) M OFFICE AALZC-OWB-OWWVQXBY BODY MASS INDEX DOCD SYST BP LT 130 MM HG DIAST BP < 80 MM HG BP OFFICE/OUTPATIENT VISIT EST OFFICE YEHZP-KKO-LEEDWEXX BODY MASS INDEX DOCD SYST BP LT 130 MM HG DIAST BP 80-89 MM HG CBC, INC PLATELETS AND DIFFERENTIAL COMPREHEN METABOLIC PANEL [facility] 9 HEMOGLOBIN A1C HGA1C, GLYCO LIPID PANEL ROUTINE VENIPUNCTURE THERAPEUTIC EXERCISES ULTRASOUND THERAPY THERAPEUTIC EXERCISES ULTRASOUND THERAPY Brief Emotional/Behavioral A ssessment, With Scoring/Doct, Per Stndrd Instrument Clin depression screen doc OFFICE KHKRV-SVB-MJSUGOEI BODY MASS INDEX DOCD SYST BP LT 130 MM HG DIAST BP < 80 MM HG THERAPEUTIC EXERCISES ULTRASOUND THERAPY ELECTRICAL STIMULATION THERAPEUTIC EXERCISES ULTRASOUND THERAPY ULTRASOUND THERAPY THERAPEUTIC EXERCISES THERAPEUTIC EXERCISES ULTRASOUND THERAPY OT EVAL (MOD COMPLEXITY) CBC, INC PLATELETS AND DIFFERENTIAL COMPREHEN METABOLIC PANEL [facility] 9 HEMOGLOBIN A1C HGA1C, GLYCO ROUTINE VENIPUNCTURE OFFICE FVPGN-WQG-OWJGOFWJ BODY MASS INDEX DOCD SYST BP GE [...] Diagnoses Date Provider Providers Copied on Encounter [facility], [address], [place], [place], [address] , tel: [phone] Roper No Information 5 Judson Ross. [address] [place] [address], [id number], . tel:[phone] [facility], [address], [place], [place], [address] , tel: [phone] Roper Kidney stone 4 Judson Ross. [address] [place] [address], [id number], . tel:[phone] [facility], [address], [place], [place], [address] , tel: [phone] Roper No Information 4 Judson Ross. [address] [place] [address], [id number], . tel:[phone] [facility], [address], [place], [place], [address] , tel: [phone] Roper No Information 4 Judson Ross. [address] [place] [address], [id number], . tel:[phone] OFFICE UUDBW-RBG-VK [facility], [address], [place], [place], [address] , tel: [phone] Roper mmp (chief complaint) Encounter for screening [...] D deficiencyHx of cholecystectomy 4 Judson Ross. [address] [place] [address], [id number], . tel:[phone] Referring Provider: Cody Stein, [address] [place] [address], [address] . tel:[phone] [facility], [address], [place], [place], [address] , tel: [phone] [facility] No Information 4 Judson Ross. [address] [place], [place], [address], . tel:[phone] [facility], [address], [place], [place], [address] , tel: [phone] Judson No Information 4 Judson Ross. [address] [place] [address], [place], [place], [address], . tel:[phone] [facility], [address], [place], [place], [address] , [place] tel: [phone] Judson No Information 4 Judson Ross. [address] [place] [address], [id number], . tel:[phone] OFFICE SFGTW-QCB-QL [facility], [address], [place], [place], [address] , tel: [phone] Judson mmp (chief complaint) Mixed hyperlipidemiaMo derate [...] ea corporisVitamin D deficiency 4 Judson Ross. [address] [place] [address], [id number], . tel:[phone] Referring Provider: Cody Stein, [address] [place] [address], [address] . tel:[phone] OFFICE YLCPR-QAX-DL [facility], [address], [place], [place], [address] , [place] tel: [phone] Judson mmp (chief complaint) Gastroesophageal reflux disease [...] typeArthralgia of multiple joints 3 Judson Ross. [address] [place] [address], [place], [place], [address], . tel:[phone] Referring Provider: Cody Stein, [address] [place] [address], [place], [address] . tel:[phone] OFFICE EYUGD-EUY-IJ PANDED [facility], [address], [place], [place], [address] , [place] tel: [phone] [facility] IBS D (chief complaint) Irritable bowel syndrome with diarrhea 3 Meena Velozyazan. [address] [facility] B, [place], [place], [address], [place]. tel:[phone] Referring Provider: Emil Roper, [address] [place], [address] . tel:[phone] [facility], [address], [place], [place], [address] , [place] tel: [phone] Judson Other spondylosis with radiculopathy, cervical regionOther spondylosis with radiculopathy, lumbosacral regionSpondylosi s, unspecifiedUnila teral primary osteoarthritis, left knee Sep- 3 Judson Ross. [address] [place], [place], [address], [place]. tel: [phone] [facility], [address], [place], [place], [address] , [place] tel: [phone] Judson No Information 3 Judson Ross. [address] [facility], [place], [place], [address], [place]. tel:[phone] OFFICE RIBQG-DIW-MV TAILED [facility], [address], [place], [place], [address] , [place] tel: [phone] Judson mmp (chief complaint) Essential (primary) hypertensionMixe [...] neoplasm of breast 3 Judson Ross. [address] [facility], [place], [place], [address], . tel:[phone] Referring Provider: Cody Stein, [address] [place] [address], [place], [address] . tel:[phone] [facility]ICE [facility], [address], [place], [place], [address] , [place] tel:[phone] [facility] (chief complaint) Essential (primary) hypertensionMeta [...] evaluationAbnorm al EKG 3 Judson Ross. [address] [facility], [place], [place], [address], . tel:[phone] Referring Provider: Cody Stein, [address] [place] [address], [place], [address] . tel:[phone] OFFICE [facility]AP[facility], [address], [place], [place], [address] , [place] tel:[phone] Roper [facility] (chief complaint) Lumbosacral radiculopathy due to degenerative [...] with diarrheaCervical radiculopathy 3 Judson Ross. [address] [place], [place], [address], [place]. tel:[phone] Referring Provider: Cody Stein, [address] [facility], [place], [address] . tel:[phone] OFFICE OOVUW-XYY-FL [employer] [facility], [address], [place], [place], [address] , [place] tel:[phone] [facility] Follow up (chief complaint) Irritable bowel syndrome with diarrheaRectal itching 2 Jerrell Gillette. [address] [place], [place], [address], [place]. tel:[phone] Referring Provider: Cody Stein, [address] [facility], [place], [address] . tel:[phone] OFFICE RDESS-BYH-LP [facility], [address], [place], [place], [address] , [place] [phone] Judson madsen (chief complaint) Cervical radiculopathyNec k pain, chronicOther chronic pain 2 Jim Camp. [address] [place], [place], [address], [place]. tel:[phone] Referring Provider: Cody Stein, [address] [place], [address] . tel:[phone] OFFICE SQPTC-FIU-PP [facility], [address], [place], [place], [address] , [place] tel:[phone] Judson madsen (chief complaint) Essential (primary) hypertensionMixe [...] D deficiency Sep- 2 Judson Ross. [address] [place], [place], [address], . tel:[phone] Referring Provider: Cody Stein, [address] [place] [address], [address] . tel:[phone] [facility], [address], [place], [place], [address] , [phone] Judson UTI symptoms/c oncerns (chief complaint) UTI symptoms Jul- 2 Judson Ross. [address] [place] [address], [id number], . tel:[phone] Referring Provider: Cody Stein, [address] [place] [address], [address] . tel:[phone] OFFICE BXYTN-BUI-PP [facility], [address], [place], [place], [address] , [phone] Judson mmp (chief complaint) Essential (primary) hypertensionMeta [...] t smokerInsomnia, unspecified type 2 Judson Ross. [address] [place] [address], [place], [place], [address], . tel:[phone] Referring Provider: Cody Stein, [address] [place] [address], [place], [address] . tel:[phone] OFFICE GERES-IZG-QG [facility], [address], [place], [place], [address] , [place] tel:[phone] Judson mmp (chief complaint) Essential (primary) hypertensionMixe [...] paresthetica of left side 2 Judson Ross. [address] [place] [address], [place], [place], [address], [place]. tel:[phone] Referring Provider: Cody Stein, [address] [place] [address] B, [place], [address] . tel:[phone] OFFICE GXPNS-QBE-GD [facility], [address], [place], [place], [address] , [place] tel:[phone] Judson Rash (chief complaint) IntertrigoHyperp igmentation 2 Erasmo Cheney. [address] [place] [address], [address], [place], [place], [address], [place]. tel:[phone] Referring Provider: Cody Stein, [address] [place] [address] B, [place], [address] . tel:[phone] OFFICE ETYID-EWY-PE [facility], [address], [place], [place], [address] , tel:[phone] [facility] IBS (chief complaint) Irritable bowel syndrome with diarrhea 1 Jerrell Gillette. [address] [place], [place], [address], [place]. tel:[phone] Referring Provider: Cody Stein, [address] [place] [address] B, [place], [address] . tel:[phone] OFFICE XNNDY-GOP-XH [facility], [address], [place], [place], [address] , [place] tel:[phone] Judson madsen (chief complaint) Encounter for screening [...] smokerObesity (BMI 30.0-34.9)Opioid use 1 Judson Ross. [address] [place] [address], [id number], [place]. tel:[phone] Referring Provider: Cody Stein, [address] [place] [address], [place], [address] . tel:[phone] OFFICE RWTGF-BUQ-MS [facility], [address], [place], [place], [address] , [place] tel:[phone] Judson [facility] (chief complaint) Essential (primary) hypertensionMixe d hyperlipidemiaGa [...] rhinitis due to pollenAnxiety 1 Judson Ross. [address] [place] [address], [address], . [phone] Referring Provider: Cody Stein, [address] [place] [address], [address] . [phone] [facility], [address], [place], [place], [address] , tel: [phone] Judson No Information 1 Judson Ross. [address] [place], [place], [address], . tel:[phone] [facility], [address], [place], [place], [address] , tel:[phone] [facility] Urinary incontinence, unspecified type 1 Judson Ross. [address] [place], [place], [address], . tel:[phone] OFFICE DBDSH-IWF-NN [facility], [address], [place], [place], [address] , tel: [phone] Judson MMP (chief complaint) Essential (primary) hypertensionMixe [...] of left foot 1 Judson Ross. [address] [place], [place], [address], [place]. tel:[phone] Referring Provider: Cody Stein, [address] [place] [address], [address] . tel:[phone] OFFICE BWKZP-TXK-JW [facility], [address], [place], [place], [address] , [place] tel: [phone] Judson mmp (chief complaint) Essential (primary) hypertensionMixe [...] of right wrist 1 Judson Ross. [address] [place], [place], [address], [place]. tel:[phone] Referring Provider: Cody Stein, [address] [place] [address], [place], [address] . tel:[phone] OFFICE JRFMC-EFZ-HL [facility], [address], [place], [place], [address] , [place] tel: [phone] [facility] Diarrhea (chief complaint) Irritable bowel syndrome with diarrhea 0 Jerrell Gillette. [address] [place], [place], [address], [place]. tel:[phone] Referring Provider: Cody Stein, [address] [place] [address], [place], [address] . tel:[phone] OFFICE HAJOZ-RZR-YI [facility], [address], [place], [place], [address] , [place] tel: [phone] [facility] Diarrhea (chief complaint) Irritable bowel syndrome with diarrhea 0 Jerrell Leta. [address] [place], [place], [address], [place]. tel:[phone] Referring Provider: Cody Stein, [address] [place] [address] [place], [address] . tel:[phone] OFFICE IXAOS-JLT-KH [facility], [address], [place], [place], [address] , [place] tel: [phone] Judson mmp (chief complaint) Unilateral primary osteoarthritis, [...] (BMI 30.0-34.9)Gangli on cyst 0 Judson Ross. [address] [place] [address], [address], [place]. tel:[phone] Referring Provider: Cody Stein, [address] [facility], [address] . tel:[phone] [facility], [address], [place], [place], [address] , [place] tel:[phone] Judson weight check (chief complaint) No Information 0 Judson Ross. [address] [place], [place], [address], . tel:[phone] Referring Provider: Cody Stein, [address] [place] [address] [place], [address] . tel:[phone] OFFICE KVAOT-IYK-VT TAILED [facility], [address], [place], [place], [address] , tel:[phone] Judson mmp (chief complaint) Unilateral primary osteoarthritis, [...] ovary syndromeObesity (BMI 30.0-34.9) 0 Judson Ross. [address] [place] [address] [place], [address], [place]. tel:[phone] Referring Provider: Cody Stein, [address] [place] [address] B, [place], [address] . tel:[phone] PREVENTATIVE -EST: 40-64 [facility], [address], [place], [place], [address] , tel:[phone] Judson mmp (chief complaint) Unilateral primary osteoarthritis, [...] lossPolycystic ovary syndromePhysical exam 0 Judson Ross. [address] [place] [address] B, [place], [place], [address], [place]. tel:[phone] Referring Provider: Cody Stein, [address] [facility], [place], [address] . tel:[phone] OFFICE [facility]ANS[facility], [address], [place], [place], [address] , tel:[phone] Judson WWE/PAP (chief complaint) Cervical cancer screeningPCOS (polycystic ovarian syndrome)Hirsuti smSexual dysfunction 0 Jim Camp. [address] [place], [place], [address], [place]. tel:[phone] Referring Provider: Cody Stein, [address] [place] [address], [place], [address] . tel:[phone] BP OFFICE/OUTPA TIENT VISIT [facility], [address], [place], [place], [address] , tel:[phone] Judson Essential (primary) hypertension 0 Judson Ross. [address] [place] [address], [address], [place]. tel:[phone] Referring Provider: Cody Stein, [address] [place] [address], [place], [address] . tel:[phone] OFFICE QGNGD[facility]PJC[facility], [address], [place], [place], [address] , [place] tel:[phone] Judson MMP (chief complaint) Unilateral primary osteoarthritis, [...] asthma without complication 9 Judson Ross. [address] [place], [place], [address], [place]. tel:[phone] Referring Provider: Cody Stein, [address] [facility], [place], [address] . tel:[phone] [facility], [address], [place], [place], [address] , tel: [phone] Judson Unilateral primary osteoarthritis, left knee Sep-3 0-201 9 Judson Ross. [address] [facility], [place], [place], [address], . tel:[phone] Referring Provider: Cody Stein, [address] [facility], [place], [address] . tel:[phone] [facility] [address], [place], [place], [address] , tel: [phone] Judson No Information Sep-2 3-201 9 Judson Ross. [address] [place], [place], [address], . tel:[phone] Referring Provider: Cody Stein, [address] [facility], [place], [address] . tel:[phone] OFFICE AGNCY-WCR-JE PANDED [facility], [address], [place], [place], [address] , tel: [phone] Judson *depressio n (chief complaint) Current moderate episode of major depressive disorder without prior episodeUnilatera l primary osteoarthritis, left knee Sep-1 9- 9 Jim Camp. [address] [place], [place], [address], . tel:[phone] Referring Provider: Cody Stein, [address] [facility], [place], [address] . [phone] [facility] [address], [place], [place], [address] , tel: [phone] Judson Unilateral primary osteoarthritis, left knee Sep-1 6-201 9 Judson Ross. [address] [place], [place], [address], . tel:[phone] Referring Provider: Cody Stein, [address] [place] [address] B, [place], [address] . [phone] [facility], [address], [place], [place], [address] , tel: [phone] Roper Unilateral primary osteoarthritis, left knee Sep-0 9-201 9 Roper Cody. [address] [place] [address] B, [place], [place], [address], . tel:[phone] Referring Provider: Cody Stein, [address] [place] [address] B, [place], [address] . [phone] [facility], [address], [place], [place], [address] , tel: [phone] Roper Unilateral primary osteoarthritis, left knee Sep-0 5-201 9 Roper Cody. [address] [place] [address], [address], . tel:[phone] Referring Provider: Cody Stein, [address] [place] [address] B, [place], [address] . tel:[phone] [facility], [address], [place], [place], [address] , tel: [phone] Roper Right arm pain Sep-0 4-201 9 Roper Cody. [address] [place] [address], [place], [place], [address], . [phone] [facility], [address], [place], [place], [address] , tel: [phone] Roper Unilateral primary osteoarthritis, left knee Aug-1 9-201 9 Roper Cody. [address] [place] [address], [address], . tel:[phone] Referring Provider: Cody Stein, [address] [place] [address], [place], [address] . tel:[phone] [facility], [address], [place], [place], [address] , tel: [phone] Roper Unilateral primary osteoarthritis, left knee 9 Judson Ross. [address] [facility], [place], [place], [address], [place]. tel:[phone] Referring Provider: Cody Stein, [address] [facility] [address], [place], [address] . tel:[phone] OFFICE MYQBY-SKQ-KD [facility], [address], [place], [place], [address] , [place] tel:[phone] Judson mmp (chief complaint) Lateral epicondylitis of [...] persistent asthma without complication Judson Ross. [address] [facility], [place], [place], [address], [place]. tel:[phone] Referring Provider: Cody Stein, [address] [facility] B, [place], [address] . tel:[phone] [facility], [address], [place], [place], [address] , [place] tel:[phone] Judson Chronic pain of left kneeOther chronic pain 9 [facility]. [address] [place] [address], [address] [facility], [place], [place], [address], [place]. tel:[phone] [facility], [address], [place], [place], [address] , [place] tel:[phone] Judson Left knee pain. (chief complaint) Chronic pain of left knee 9 [facility]. [address] [facility], [address] [facility], [place], [place], [address], [place]. tel:[phone] Referring Provider: Cody Stein, [address] [facility] [address], [place], [address] . tel:[phone] [facility], [address], [place], [place], [address] , [place] tel: [phone] Judson URI_ (chief complaint) Moderate persistent asthma with acute exacerbation Feb-3 0 9 [place] [facility]. [address] [place] [address], [address], [place], [place], [id number], [place]. [phone] Referring Provider: Cody Stein, [address] [facility] [facility] [address], [place], [address] . tel:[phone] [facility], [address], [place], [place], [id number] , [place] tel: [phone] Judson Lumbosacral radiculopathy due to degenerative joint disease of spineOsteoarthri tis of spine with radiculopathy, cervical regionOsteoarthr itis of multiple joints, unspecified osteoarthritis typeType 2 diabetes mellitus without complication, unspecified usp insulin use statusEssential hypertensionMixe d hyperlipidemiaSc iatica, unspecified lateralityIrrita ble bowel syndrome with diarrheaGastroes ophageal reflux disease, esophagitis presence not specifiedInsomni a, unspecified typeCurrent smokerAsthma, unspecified asthma severity, unspecified whether complicated, unspecified whether persistentImmuni zation refusedLateral epicondylitis of right elbow 9 Judson Ross. [address] [facility] [address], [place], [place], [address], [place]. tel:[phone] Referring Provider: Cody Stein, [address] [facility] [address], [place], [address] . tel:[phone] [employer], [address], [place], [place], [address] , [place] tel: [phone] Judson Lumbosacral radiculopathy due to degenerative joint disease of spineOsteoarthri tis of spine with radiculopathy, cervical regionOsteoarthr itis of multiple joints, unspecified osteoarthritis typeType 2 diabetes mellitus without complication, unspecified meterman insulin use statusEssential hypertensionMixe d hyperlipidemiaSc iatica, unspecified lateralityIrrita ble bowel syndrome with diarrheaGastroes ophageal reflux disease, esophagitis presence not specifiedInsomni a, unspecified typeCurrent smokerAsthma, unspecified asthma severity, unspecified whether complicated, unspecified whether persistent Oct-0 8-201 8 Judson Ross. [address] [place], [place], [address], . tel:[phone] Referring Provider: Cody Stein, [address] [place], [address] . tel:[phone] [employer], [address], [place], [place], [address] , [place] tel: [phone] Judson Lumbosacral radiculopathy due to degenerative joint disease of spineOsteoarthri tis of spine with radiculopathy, cervical regionOsteoarthr itis of multiple joints, unspecified osteoarthritis typeType 2 diabetes mellitus without complication, unspecified meterman insulin use statusEssential hypertensionMixe d hyperlipidemiaSc iatica, unspecified lateralityIrrita ble bowel syndrome with diarrheaGastroes ophageal reflux disease, esophagitis presence not specifiedInsomni a, unspecified typeCurrent smokerAsthma, unspecified asthma severity, unspecified whether complicated, unspecified whether persistentFatigu e, unspecified typeArthralgia of both kneesLow vitamin D level 2-201 8 Judson Ross. [address] [place], [place], [address], [place]. tel:[phone] Referring Provider: Cody Stein, [address] [place], [address] . tel:[phone] [employer], [address], [place], [place], [address] , [place] tel: [phone] Judson Lumbosacral radiculopathy due to degenerative joint disease of spineOsteoarthri tis of spine with radiculopathy, cervical regionOsteoarthr itis of multiple joints, unspecified osteoarthritis typeType 2 diabetes mellitus without complication, unspecified usp insulin use statusEssential hypertensionMixe d hyperlipidemiaSc iatica, unspecified lateralityIrrita ble bowel syndrome with diarrheaGastroes ophageal reflux disease, esophagitis presence not specifiedInsomni a, unspecified typePainful menstrual flowCurrent smokerAsthma, unspecified asthma severity, unspecified whether complicated, unspecified whether persistentEye lesionChronic sinusitis, unspecified location 0 2 8 Judson Ross. [address] [facility], [place], [place], [address], . tel:[phone] Referring Provider: Cody Stein, [address] [facility] [address], [place], [address] . tel:[phone] [employer], [address], [place], [place], [address] , tel: [phone] Judson Type 2 diabetes mellitus without complication, unspecified meterman insulin use statusHypertensi ve heart disease without heart failureMixed hyperlipidemiaPr imary osteoarthritis of both hipsSpondylosis of cervical region without myelopathy or radiculopathySci atica, unspecified lateralityIrrita ble bowel syndrome with diarrheaGastroes ophageal reflux disease, esophagitis presence not specifiedInsomni a, unspecified typePainful menstrual flowCurrent smokerGanglion cystRight wrist tendonitisRight carpal tunnel syndromeLumbosac ral radiculopathy due to degenerative joint disease of spine 7 Judson Ross. [address] [facility], [place], [place], [address], . tel:[phone] Referring Provider: Cody Stein, [address] [place] [address] [address], [place], [address] . tel:[phone] [employer], [address], [place], [place], [address] , tel: [phone] Judson Type 2 diabetes mellitus without complication, unspecified meterman insulin use statusHypertensi ve heart disease without heart failureInsomnia, unspecified typePrimary osteoarthritis of both hipsSpondylosis of cervical region without myelopathy or radiculopathyPai nful menstrual flowIrritable bowel syndrome with diarrheaCurrent smokerInfluenza vaccination declinedGastroes ophageal reflux disease, esophagitis presence not specifiedSciatic a, unspecified lateralityStomac h painMedication monitoring encounter 7 Judson Ross. [address] [place] [address], [place], [place], [address], . tel:[phone] Referring Provider: Cody Stein, [address] [place] [address], [place], [address] . tel:[phone] [employer], [address], [place], [place], [address] , [place] tel: [phone] Judson Primary osteoarthritis of both hipsSpondylosis of cervical region without myelopathy or radiculopathyHyp ertensive heart disease without heart failureType 2 diabetes mellitus without complication, unspecified meterman insulin use statusInsomnia, unspecified typeIrritable bowel syndrome with diarrheaPainful menstrual flowCurrent smoker 7 Judson Ross. [address] [place] [address], [id number], . tel:[phone] Referring Provider: Cody Stein, [address] [place] [address], [place], [address] . tel:[phone] [employer], [address], [place], [place], [address] , [place] tel: [phone] Judson Primary osteoarthritis of both hipsSpondylosis of cervical region without myelopathy or radiculopathyHyp ertensive heart disease without heart failureType 2 diabetes mellitus without complication, unspecified meterman insulin use statusInsomnia, unspecified typeIrritable bowel syndrome with diarrheaMixed hyperlipidemia 7 Judson Ross. [address] [place] [address], [place], [place], [address], [place]. tel:[phone] Referring Provider: Cody Stein, [address] [place] [address], [place], [address] . tel:[phone] [employer], [address], [place], [place], [address] , [place] tel: [phone] Judson Primary osteoarthritis of both hipsSpondylosis of cervical region without myelopathy or radiculopathyHyp ertensive heart disease without heart failureType 2 diabetes mellitus without complication, unspecified usp insulin use statusInsomnia, unspecified type 6 Judson Ross. [address] [place], [place], [address], . tel:[phone] Referring Provider: Cody Stein, [address] [facility], [place], [address] . tel:[phone] [facility], [address], [place], [place], [address] , tel: [phone] Judson Strain of left hip, initial encounterLeft shoulder strain, initial encounter 6 Rowdy Lynch. [address] [place], [place], [address]. tel:[phone] Referring Provider: Cody Stein, [address] [place], [address] . tel:[phone] [facility], [address], [place], [place], [address] , tel: [phone] Judson Chronic obstructive pulmonary disease, unspecifiedOther allergic rhinitisMixed hyperlipidemiaOt her fatigueInsomnia, persistentLocali zed osteoarthritis of lumbar spine 6 Judson Ross. [address] [facility], [place], [place], [address], . tel:[phone] Referring Provider: Cody Stein, [address] [facility], [place], [address] . tel:[phone] [facility], [address], [place], [place], [address] , [place] tel: [phone] Judson Sciatica, unspecified lateralityCoughC hronic obstructive pulmonary disease, unspecifiedOther allergic rhinitisMorbid obesity, unspecified obesity type 5 Judson Ross. [address] [facility], [place], [place], [address], . [phone] Referring Provider: Cody Stein, [address] [facility] [place], [address] . tel:[phone] Family History Family Member Type Diagnosis Age [...] Record Payers Payer name Insurance type Covered libertarian ID Sultana ramirez(s) BCBS ACCESS CHOICE [id number] BCBS ACCESS CHOICE BL [id number] BCBS INACTIVE OUT OF STATE [id number] BCBS INACTIVE OUT OF STATE [id number] Social History Type Description Quantity Date Captured [...] Order SC REENING MAMMOGRAM (CAD) Bilateral breast (07052), Body Site: breast, Sent on: Sent Future Order: Radiology Order SC REENING MAMMOGRAM (CAD) Bilateral breast ([id number]), Body Site: breast, Sent on: Sent Future Order: Radiology Order SC REENING MAMMOGRAM (CAD) Bilateral breast ([id number]), Body Site: breast, Sent on: Sent Future Order: Lab Order Urine Cu lture, Routine ([id number]), Collected on: , Sent on: Sent Future Order: Lab Order UA- Dips tick (office Lab) ([id number]), Collected on: Ordered Future Order: Radiology Order SC REENING MAMMOGRAM (CAD) Bilateral breast ([id number]), Body Site: breast, Sent on: Sent History [...] or exercise.Smoker: No change in habits reported. [facility] Pre-Op Clearance : Pt is overall well [...] scheduled for this . No other complaints. [facility] HTN: Pt is med c ompliant. No [...] stretching and massage, local pressure improves pain. [facility] HTN: Pt is manag ing through diet [...] PCOS: Pt is med compliant. 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 No complaints. Metabolic syndrome: per [...] PCOS: Pt is med compliant. 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 No complaints. Metabolic syndrome: per [...] PCOS: Pt is med compliant. 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 No complaints. Metabolic syndrome: per [...] with Dr. Tracy (spelling?), hand surgeon at [facility]. 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 Has not tried otc diarrhea mediations. [...] Pt has fhx of lymphoma but last nail setter visit found no cause for concernMetabolic syndrome: [...] that of lymphoma. Pt followed up with nail setter and he could not find anything wrong [...] after cutting back on her hours at [employer]. *depression Patient presents today with persistent feelings [...] has tried a knee brace from the [employer] and Ibuprofen with minimal relief. URI_ Patient [...] Information Instructions Date Instruction Additional Infor sapphire Stable. Will monitor through lab s. Related to Vitamin D deficiency Pt knows the risks o f taking a controlled substance; have previously discussed risks and benefits of use. Pt signed updated contract today; gave pt a copy. Continue hydrocodone-acetaminophen as prescribed. Will monitor. Related to Controlled substance agreement signed Stable - Will monitor through la bs. [...] Pain Management. Encourage to complete stretches and itajc-qv-mkabta exercises. Encouraged patient to try and lose some weight. Will monitor. Related to Other spondylosis with radiculopathy, cervical region Unchanged. Insurance will no longer pay for injections. Continue current treatment with Oxycodone 10mg-325mg 1 tab four times daily. Continue following up with Pain Management. Continue following up with Dr. Dolan, orthopaedic surgeon as scheduled. Encourage to complete stretches and hhdmw-dh-itzfyk exercises. Encouraged patient to try and lose some weight. Will monitor. Related to Other spondylosis with radiculopathy, lumbosacral region Unchanged. Insurance will no longer pay for injections. Continue current treatment with Oxycodone 10mg-325mg 1 tab four times daily. Continue following up with Pain Management. Encourage to complete stretches and oiycs-ao-apsufw exercises. Encouraged patient to try and lose some weight. Will monitor. Related to Unilateral primary osteoarthritis, left knee Unchanged. Insurance will no longer pay for injections. Continue current treatment with Oxycodone 10mg-325mg 1 tab four times daily. Continue following up with Pain Management. Encourage to complete stretches and srnru-wk-mqgzya exercises. Encouraged patient to try and lose some weight. Will monitor. Related to Spondylosis, unspecified Last A1c was 6.2% on 10/2023. Encouraged [...] Pain Management. Encourage to complete stretches and rukoj-aa-faohxk exercises. Encouraged patient to try and lose some weight. Will monitor. Related to Unilateral primary osteoarthritis, left knee BMI of 29.4 today. E ncouraged weight [...] worsening symptoms. Related to Insomnia, unspecified type S/p 2 level ACDF wit h plating. With improved symptoms. PDMP has been checked. Continue current treatment with Oxycodone 10mg-325mg 1 tab four times daily. Continue following up with Pain Management. Encourage to complete stretches and uimhu-ge-ytltoc exercises. Encouraged patient to try and lose some weight. Will monitor. Related to Other spondylosis with radiculopathy, cervical region Unchanged. Insurance will no longer pay for injections. Continue current treatment with Oxycodone 10mg-325mg 1 tab four times daily. Continue following up with Pain Management. Encourage to complete stretches and pbjla-tv-igazzt exercises. Encouraged patient to try and lose some weight. Will monitor. Related to Spondylosis, unspecified Unchanged. Insurance will no longer pay for injections. Continue current treatment with Oxycodone 10mg-325mg 1 tab four times daily. Continue following up with Pain Management. Continue following up with Dr. Dolan, orthopaedic surgeon as scheduled. Encourage to complete stretches and yiwlw-fh-qoykde exercises. Encouraged patient to try and lose some weight. Will monitor. Related to Other spondylosis with radiculopathy, lumbosacral region Stable, no recent fl are-ups. Continue current [...] Vit D Related to Essential (primary) hypertension Managed per OBGYN. C linically stable. Will monitor. Related to Polycystic ovary syndrome Medication management Stable - Will monitor through [...] as scheduled. Encourage to complete stretches and ngrmf-oy-sztpgk exercises. Encouraged patient to try and lose some weight. Will monitor. Related to Other spondylosis with radiculopathy, lumbosacral region Unchanged. Insurance will no longer pay for injections. Continue current treatment with Oxycodone 10mg-325mg 1 tab four times daily. Continue following up with Pain Management. Encourage to complete stretches and cumfv-ul-jcgldd exercises. Encouraged patient to try and lose some weight. Will monitor. Related to Unilateral primary osteoarthritis, left knee S/p 2 level ACDF wit h plating. With improved symptoms. PDMP has been checked. Continue current treatment with Oxycodone 10mg-325mg 1 tab four times daily. Continue following up with Pain Management. Encourage to complete stretches and agdzk-yd-btxvgt exercises. Encouraged patient to try and lose some weight. Will monitor. Related to Other spondylosis with radiculopathy, cervical region Unchanged. Insurance will no longer pay for injections. Continue current treatment with Oxycodone 10mg-325mg 1 tab four times daily. Continue following up with Pain Management. Encourage to complete stretches and ppxre-xl-hxsqvy exercises. Encouraged patient to try and lose some weight. Will monitor. Related to Spondylosis, unspecified Managed per OBGYN. C linically stable. Will monitor. Related to Polycystic ovary syndrome Symptoms controlled. Continue treatment with buspirone [...] Monitor. Related to Obesity (BMI 30.0-34.9) Unchanged. F/u with hand surgeon as scheduled. Will monitor. Related to Carpal tunnel syndrome of right wrist Symptomatic - Pt josephine led melatonin due [...] as scheduled. Encourage to complete stretches and rfigh-by-qsybak exercises. Encouraged patient to try and lose [...] as scheduled. Encourage to complete stretches and bylqi-br-ghlbto exercises. Encouraged patient to try and lose [...] as scheduled. Encourage to complete stretches and ndmhk-ed-vxpuzz exercises. Encouraged patient to try and lose some weight. Will monitor. Related to Spondylosis Unchanged. Insurance will no longer pay for injections. PDMP has been checked. Continue current treatment with Hydrocodone 5-325mg 1 tab TID prn, Nabumetone 750mg 1 tab BID and Gabapentin 300mg 2 tabs QID prn. Continue following up with Dr. Dolan, orthopaedic surgeon as scheduled. Encourage to complete stretches and vhmiw-kc-thalbf exercises. Encouraged patient to try and lose [...] as scheduled. Encourage to complete stretches and olvbp-kb-zhcvce exercises. Encouraged patient to try and lose [...] as scheduled. Encourage to complete stretches and ybacm-mh-oclmaw exercises. Encouraged patient to try and lose some weight. Will monitor. Related to Other chronic pain Unchanged. Continue current treatment with Hydrocodone 5-325mg 1 tab TID prn, Nabumetone 750mg 1 tab BID and Gabapentin 300mg 2 tabs TID. Continue following up with orthopaedic surgeon as scheduled. Encourage to complete stretches and mxejt-kv-yqhlqd exercises. Encouraged patient to try and lose some weight. Will monitor. Related to Cervical radiculopathy Unchanged. Continue current treatment with Hydrocodone 5-325mg 1 tab TID prn, Nabumetone 750mg 1 tab BID and Gabapentin 300mg 2 tabs TID. Continue following up with orthopaedic surgeon as scheduled. Encourage to complete stretches and dklfd-tu-fugbds exercises. Encouraged patient to try and lose some weight. Will monitor. Related to Osteoarthritis of spine with radiculopathy, cervical region Unchanged. Continue current treatment with Hydrocodone 5-325mg 1 tab TID prn, Nabumetone 750mg 1 tab BID and Gabapentin 300mg 2 tabs TID. Continue following up with orthopaedic surgeon as scheduled. Encourage to complete stretches and oiita-fx-fkilgk exercises. Encouraged patient to try and lose some weight. Will monitor. Related to Unilateral primary osteoarthritis, left knee Stable - Continue cu rrent treatment plan. [...] as scheduled. Encourage to complete stretches and kkeaq-vq-ajyvhk exercises. Encouraged patient to try and lose some weight. Will monitor. Related to Spondylosis Stable - Continue cu rrent treatment with rosuvastatin 10mg 1 tab QHS as directed. Encouraged a low-cholesterol diet with regular cardiovascular exercise as tolerated. Will continue to monitor. Related to Mixed hyperlipidemia Symptoms controlled. Continue current treatment with buspirone 10mg 1-1.5 tab BID as directed. Recommend regular exercise to help improve symptoms. Will continue to monitor. Notify for persisting/worsening symptoms. Related to Anxiety Controlled at 135/92 today and rechecked at [...] as scheduled. Encourage to complete stretches and jiulu-ev-cldlqh exercises. Encouraged patient to try and lose some weight. Will monitor. Related to Cervical radiculopathy Unchanged. Continue current treatment with Hydrocodone 5-325mg 1 tab TID prn, Nabumetone 750mg 1 tab BID and Gabapentin 300mg 2 tabs TID. Continue following up with orthopaedic surgeon as scheduled. Encourage to complete stretches and nzgvh-lj-shwqum exercises. Encouraged patient to try and lose some weight. Will monitor. Related to Other chronic pain Pt knows the risks o f taking [...] Monitor. Related to Obesity (BMI 30.0-34.9) Unchanged. F/u with hand surgeon as scheduled. Will monitor. Related to Carpal tunnel syndrome of right wrist Stable - Continue cu rrent treatment plan. Notify for new/worsening urinary symptoms. Will monitor. Related to Urinary incontinence, unspecified type Stable Encouraged pr oper sleep hygiene. Monitor. [...] as scheduled. Encourage to complete stretches and lgbnf-eu-snceth exercises. Encouraged patient to try and lose some weight. Will monitor. Related to Lumbosacral radiculopathy due to degenerative joint disease of spine Unchanged. Continue current treatment with Hydrocodone 5-325mg 1 tab TID prn, Nabumetone 750mg 1 tab BID and Gabapentin 300mg 2 tabs TID. Continue following up with orthopaedic surgeon as scheduled. Encourage to complete stretches and rcsnl-on-hcxlcd exercises. Encouraged patient to try and lose [...] as scheduled. Encourage to complete stretches and rpcfl-ff-tkeoaw exercises. Encouraged patient to try and lose some weight. Will monitor. Related to Osteoarthritis of spine with radiculopathy, cervical region Unchanged. Continue current treatment with Hydrocodone 5-325mg 1 tab TID prn, Nabumetone 750mg 1 tab BID and Gabapentin 300mg 2 tabs TID. Continue following up with orthopaedic surgeon as scheduled. Encourage to complete stretches and ekrpp-cc-yuauml exercises. Encouraged patient to try and lose [...] Related to Essential (primary) hypertension Medication management Use the hydrocortiso ne cream twice daily for 2 weeksYou can also buy TUKS pads (witch brianna) padsIf you don't have improvement of your symptoms with the medications contact the office Related to Rectal itching Continue taking the Viberzi twice daily we are increasing the dose to 100 mg from 75 mgUse dicyclomine as neededFollow up in the office in one year or sooner for problems Related to Irritable bowel syndrome with diarrhea as noted above Related to Other chronic pain MRI cervical spine w ithout contrast. Physical therapy eval and treat, 8 visits for now, more if needed Related to Neck pain, chronic Prednisone taper. Hy drocodone for pain. Will order MRI of cervical spine. Related to Cervical radiculopathy BMI of 32 today. Enc ouraged weight [...] Monica Trivedi, acting as scribe for Kam Terrazas Roper, DO: I reviewed the chart and agree with and approve of the documentation. Related to Coccyxdynia Stable - Will monitor. Related t o Vitamin D deficiency Stable - D/C treatme nt with amitriptyline 25mg 1 tab QHS as directed; pt was not getting any relief from medication. Encouraged proper sleep hygiene. Monitor. Notify for changes in sleeping pattern. Related to Insomnia, unspecified type Pt knows the risks o f taking a controlled substance; have previously discussed risks and benefits of use. Continue Hydrocodone 5-325mg 1 tab TID prn as prescribed. Will monitor. Related to Opioid use Stable - Continue cu rrent treatment with [...] as scheduled. Encourage to complete stretches and galdq-tu-bfnwqn exercises. Encouraged patient to try and lose some weight. Will monitor. Related to Unilateral primary osteoarthritis, left knee Unchanged. Continue current treatment with Hydrocodone 5-325mg 1 tab TID prn, Nabumetone 750mg 1 tab BID and Gabapentin 300mg 2 tabs TID. Continue following up with orthopaedic surgeon as scheduled. Encourage to complete stretches and kufwb-yg-ooheuu exercises. Encouraged patient to try and lose some weight. Will monitor. Related to Osteoarthritis of spine with radiculopathy, cervical region Unchanged. Continue current treatment with Hydrocodone 5-325mg 1 tab TID prn, Nabumetone 750mg 1 tab BID and Gabapentin 300mg 2 tabs TID. Continue following up with orthopaedic surgeon as scheduled. Encourage to complete stretches and rzxmn-rx-zmggux exercises. Encouraged patient to try and lose some weight. Will monitor. Related to Lumbosacral radiculopathy due to degenerative joint disease of spine Symptoms controlled. Continue current treatment with buspirone 10mg 1-1.5 tab BID as directed. Recommend regular exercise to help improve symptoms. Will continue to monitor. Notify for persisting/worsening symptoms. Related to Anxiety Managed per OBGYN. C ontinue current treatment with Metformin ER 500mg 1 tablet BID, per recommendation of OBGYN. Will monitor. Related to Polycystic ovary syndrome Unchanged. Continue current treatment with Hydrocodone 5-325mg 1 tab TID prn, Nabumetone 750mg 1 tab BID and Gabapentin 300mg 2 tabs TID. Continue following up with orthopaedic surgeon as scheduled. Encourage to complete stretches and yjyai-sz-rowvbx exercises. Encouraged patient to try and lose [...] of the documentation. Related to Opioid use Last A1c was 6.0% on 01/2022. Encouraged [...] as scheduled. Encourage to complete stretches and bjjha-jl-tycoxa exercises. Encouraged patient to try and lose [...] as scheduled. Encourage to complete stretches and amugn-ia-nscywt exercises. Encouraged patient to try and lose some weight. Will monitor. Related to Lumbosacral radiculopathy due to degenerative joint disease of spine Managed per OBGYNChanel Bansal ontinue current treatment [...] as scheduled. Encourage to complete stretches and jekxj-mr-dngsya exercises. Encouraged patient to try and lose some weight. Will monitor. Related to Osteoarthritis of spine with radiculopathy, cervical region Unchanged. Continue current treatment with Hydrocodone 5-325mg 1 tab TID prn, Nabumetone 750mg 1 tab BID and Gabapentin 300mg 2 tabs TID. Continue following up with orthopaedic surgeon as scheduled. Encourage to complete stretches and ryzqz-ux-qadplb exercises. Encouraged patient to try and lose some weight. Will monitor. Related to Spondylosis Controlled at 145/95 and rechecked at 136/80 [...] to Mixed hyperlipidemia Medication management Symptomatic with pedro n in [...] monitor. Related to Urinary incontinence, unspecified type Pt knows the risks o f taking a controlled substance; have previously discussed risks and benefits of use. Continue Hydrocodone 5-325mg 1 tab TID prn as prescribed. Will monitor. Related to Opioid use Stable. Continue cur rent treatment with trazodone 100mg 1 tab daily as directed. Encouraged proper sleep hygiene. Monitor. Notify for changes in sleeping pattern. Related to Insomnia, unspecified type BMI of 34.0 today wi th weight gain of 4lbs since last ov. Encouraged weight loss by making healthy dietary choices and increased activity. Focus on drinking plenty of water daily and getting adequate sleep. Monitor. Related to Obesity (BMI 30.0-34.9) Unchanged. Continue current treatment with Hydrocodone 5-325mg 1 tab TID as needed, Nabumetone 750mg 1 tab BID and Gabapentin 300mg 2 tabs QID. Continue following up with orthopaedic surgeon as scheduled. Encourage to complete stretches and favbe-qf-tsnpol exercises. Encouraged patient to try and lose some weight. Will monitor. Related to Lumbosacral radiculopathy due to degenerative joint disease of spine Unchanged. Continue current treatment with Hydrocodone 5-325mg 1 tab TID as needed, Nabumetone 750mg 1 tab BID and Gabapentin 300mg 2 tabs QID. Continue following up with orthopaedic surgeon as scheduled. Encourage to complete stretches and rtmuq-tp-thivzb exercises. Encouraged patient to try and lose [...] as scheduled. Encourage to complete stretches and hbjgq-ev-zjxnfn exercises. Encouraged patient to try and lose some weight. Will monitor. Related to Unilateral primary osteoarthritis, left knee Unchanged. Continue current treatment with Hydrocodone 5-325mg 1 tab TID as needed, Nabumetone 750mg 1 tab BID and Gabapentin 300mg 2 tabs QID. Continue following up with orthopaedic surgeon as scheduled. Encourage to complete stretches and ecmon-ci-cwszjm exercises. Encouraged patient to try and lose some weight. Will monitor. Related to Osteoarthritis of spine with radiculopathy, cervical region Last A1c was 5.7% on 06/2021. Encouraged patient to avoid processed sugars and to maintain a healthy, balanced low-carb diet with regular exercise. Will continue to monitor- notify if symptoms change or worsen. Related to Metabolic syndrome Stable - Discussed d ecreased availability [...] to Irritable bowel syndrome with diarrhea Breathing stable. Co ntinue with current inhaler regimen. Continue to monitor. Notify for breathing complaints. Related to Moderate persistent asthma without complication Stable . Continue cu rrent treatment with Crestor 10mg 1 tab QHS as directed. Encouraged a low-cholesterol diet with regular cardiovascular exercise as tolerated. Will continue to monitor. Related to Mixed hyperlipidemia Stable, no recent fl are-ups. Continue current treatment plan. Avoid trigger foods. Will continue to monitor. Notify for persisting/worsening symptoms. Related to Gastroesophageal reflux disease without esophagitis Controlled. BP of 13 4/100 taken in the office today 118/80 upon recheck. Currently managing through diet and lifestyle. Encouraged low-sodium diet and drink plenty of water daily. Will continue to monitor.EKG done in the office today showed normal sinus rhythm and rate. Labs: CMP/CBC/A1C/Micro/Vit D/FLP Related to Essential (primary) hypertension Medication management Start Clotrimazole t o bilateral [...] Related to Irritable bowel syndrome with diarrhea Order given in the o ffice today. [...] monitor. Related to Opioid use Stable - Continue cu rrent treatment plan. [...] as scheduled. Encourage to complete stretches and dmtvu-qs-hrofgs exercises. Encouraged patient to try and lose [...] to Irritable bowel syndrome with diarrhea Stable. Continue cur rent treatment with trazodone 100mg 1 tab daily as directed. Encouraged proper sleep hygiene. Monitor. Notify for changes in sleeping pattern. Related to Insomnia, unspecified type Unchanged. Kenalog i njection given in the back today in the office. Pt tolerated well. Continue current treatment with Hydrocodone 5-325mg 1 tab TID as needed, Relafen 750mg 1 tablet BID, and Gabapentin 300mg 2 tabs QID. Continue following up with orthopaedic surgeon as scheduled. Encourage to complete stretches and wplqa-vj-yqsbfk exercises. Encouraged patient to try and lose [...] as scheduled. Encourage to complete stretches and nxvul-ic-uqovar exercises. Encouraged patient to try and lose some weight. Will monitor. Related to Spondylosis Last A1c was 5.8% on 02/2021. Encouraged [...] as scheduled. Encourage to complete stretches and opsvr-ye-tinrie exercises. Encouraged patient to try and lose some weight. Will monitor. Related to Lumbosacral radiculopathy due to degenerative joint disease of spine Breathing stable. Co ntinue with current inhaler regimen; refilled ProAir today. Continue to monitor. Notify for breathing complaints. Related to Moderate persistent asthma without complication Managed per OBGYN. Juliana ontinue current treatment [...] persisting/worsening symptoms. Related to Anxiety Stable - Currently m anaging through diet [...] as scheduled. Encourage to complete stretches and qemtr-et-mgutsi exercises. Encouraged patient to try and lose some weight. Will monitor. Related to Unilateral primary osteoarthritis, left knee Unchanged. Continue current treatment with Hydrocodone 5-325mg 1 tab TID as needed, Relafen 750mg 1 tablet BID, and Gabapentin 300mg 2 tabs QID. Continue following up with orthopaedic surgeon as scheduled. Encourage to complete stretches and jvrkd-qa-aftdot exercises. Encouraged patient to try and lose some weight. Will monitor. Related to Lumbosacral radiculopathy due to degenerative joint disease of spine Unchanged. Continue current treatment with Hydrocodone 5-325mg 1 tab TID as needed, Relafen 750mg 1 tablet BID, and Gabapentin 300mg 2 tabs QID. Continue following up with orthopaedic surgeon as scheduled. Encourage to complete stretches and nnogf-vq-azquht exercises. Encouraged patient to try and lose some weight. Will monitor. Related to Spondylosis Symptoms controlled. Continue current treatment with citalopram [...] screening mammogram in office today.RHM: Pt received Equiphon COVID-19 vaccine x1 on 06/14/2021 and is [...] sleeping pattern. Related to Insomnia, unspecified type Breathing stable. Co ntinue with [...] continue to monitor. Related to Mixed hyperlipidemia Last A1c was 5.8% on 02/2021. Encouraged patient to avoid processed sugars and to maintain a healthy, balanced low-carb diet with regular exercise. Will continue to monitor- notify if symptoms change or worsen. Related to Metabolic syndrome Controlled at 137/90 and rechecked at 132/84 today. Currently managing through diet and lifestyle. Encouraged low-sodium diet and drink plenty of water daily. Will continue to monitor.Labs- CBC, CMP, LP, HgA1c, micro Related to Essential (primary) hypertension Unchanged. Continue current treatment with Hydrocodone 5-325mg 1 tab TID as needed, Relafen 750mg 1 tablet BID, and Gabapentin 300mg 2 tabs QID. Continue following up with orthopaedic surgeon as scheduled. Encourage to complete stretches and hdpkd-dk-ixmpsa exercises. Encouraged patient to try and lose some weight. Will monitor. Related to Osteoarthritis of spine with radiculopathy, cervical region Managed per OBGYN. C ontinue current treatment with Metformin ER 500mg 1 tablet BID, per recommendation of OBGYN. Will monitor. Related to Polycystic ovary syndrome Medication management Secondary to left kn ee [...] to Carpal tunnel syndrome of right wrist Stable. Continue cur rent treatment with Hydrocodone 5-325mg 1 tab TID as needed, Relafen 750mg 1 tablet BID, and Gabapentin 300mg 2 tabs QID. Continue following up with orthopaedic surgeon as scheduled. Encourage to complete stretches and robfq-nx-rwfzur exercises. Encouraged patient to try and lose [...] foot edema. Encourage to complete stretches and jofxs-em-bhrtln exercises. Encouraged patient to try and lose some weight. Will monitor. Related to Unilateral primary osteoarthritis, left knee Stable. Continue cur rent treatment with Hydrocodone 5-325mg 1 tab TID as needed, Relafen 750mg 1 tablet BID, and Gabapentin 300mg 2 tabs QID. Continue following up with orthopaedic surgeon as scheduled. Encourage to complete stretches and scgsm-iy-lbsdmh exercises. Encouraged patient to try and lose [...] as scheduled. Encourage to complete stretches and fcfsx-xl-mwpolc exercises. Encouraged patient to try and lose some weight. Will monitor. Related to Spondylosis Asymptomatic. Will m onitor. F/u 4 months [...] as scheduled. Encourage to complete stretches and rrvja-cn-fcryev exercises. Encouraged patient to try and lose some weight. Will monitor. Related to Sciatica, unspecified laterality BMI of 33.2 today. P t has gained 6lbs since last office visit. Continue current treatment. Encouraged healthy diet and exercise. Will continue to monitor. Related to Obesity (BMI 30.0-34.9) Controlled. Continue current treatment with Trazodone 100mg 1 tablet at bedtime. Encourage good sleep hygiene. Will monitor. Related to Insomnia, unspecified type Last A1c was 5.8% on 12/06/2020. Controlled. Continue current treatment with Metformin ER 500mg 1 tab BID. Encourage diabetic diet and regular exercise as tolerated. Encourage annual eye exams and vigilant self-foot exams. Will continue to monitor.Labs: [id number]: Able to self-manage condition. Goals: Your goal [...] to Irritable bowel syndrome with diarrhea Breathing stable. Co ntinue current treatment with ProAir HFA 90mcg 2 puffs Q4-6hours prn, and Dulera 200-5mcg 2 puffs twice daily per pulmonology . Encouraged exercise to improve endurance. Continue following up with pulmonology as scheduled. Will monitor. Related to Moderate persistent asthma without complication Per lab hx, WBC 16.7 8 on 06/19/2019. Will continue to monitor. Related to Leukocytosis, unspecified type Encourage [...] wrist See plan #12Labs: CM P, CBC, [id number] up in 3 months or sooner if [...] as scheduled. Encourage to complete stretches and fzwgb-rn-kdothn exercises. Encouraged patient to try and lose [...] as scheduled. Encourage to complete stretches and qxmyq-io-zumefr exercises. Encouraged patient to try and lose [...] been identified.CMP, A1c Related to Metabolic syndrome Symptomatic. INCREAS E Hydrocodone 5-325mg 1 tab TID as needed. Continue current treatment - Relafen 750mg 1 tablet BID, and Gabapentin 300mg 2 tabs QID. Continue following up with orthopaedic surgeon as scheduled. Encourage to complete stretches and wbumd-pw-fpehxv exercises. Encouraged patient to try and lose some weight. Will monitor. Related to Osteoarthritis of spine with radiculopathy, cervical region Managed per OBGYN. C ontrolled by Metformin [...] as scheduled. Encourage to complete stretches and ezyjr-mo-qggtai exercises. Encouraged patient to try and lose some weight. Will monitor. Related to Unilateral primary osteoarthritis, left knee Symptomatic. INCREAS E Hydrocodone 5-325mg 1 tab TID as needed. Continue current treatment - Relafen 750mg 1 tablet BID, and Gabapentin 300mg 2 tabs QID. Continue following up with orthopaedic surgeon as scheduled. Encourage to complete stretches and ppblg-au-masylo exercises. Encouraged patient to try and lose some weight. Will monitor. Related to Lumbosacral radiculopathy due to degenerative joint disease of spine Controlled. Continue current treatment - Trazodone 100mg [...] tabs QID. Encourage to complete stretches and zequx-st-pgioat exercises. Encouraged patient to try and lose some weight. Will monitor. Related to Sciatica, unspecified laterality Symptomatic. Continu e following up with orthopaedic surgeon as scheduled. Continue with Hydrocodone 5-325mg 1 tab every 12 hours as needed, Relafen 750mg 1 tablet BID, and Gabapentin 300mg 2 tabs QID. Encourage to complete stretches and hmbwc-be-yudysy exercises. Encouraged patient to try and lose some weight. Will monitor. Related to Spondylosis Symptomatic. Continu e following up with orthopaedic surgeon as scheduled. Continue with Hydrocodone 5-325mg 1 tab every 12 hours as needed, Relafen 750mg 1 tablet BID, and Gabapentin 300mg 2 tabs QID. Encourage to complete stretches and alwcc-dm-abrcdz exercises. Encouraged patient to try and lose some weight. Will monitor. Related to Osteoarthritis of spine with radiculopathy, cervical region Symptomatic. Continu e following up with orthopaedic surgeon as scheduled. Continue with Hydrocodone 5-325mg 1 tab every 12 hours as needed, Relafen 750mg 1 tablet BID, and Gabapentin 300mg 2 tabs QID. Encourage to complete stretches and mkatm-yd-uxindj exercises. Encouraged patient to try and lose some weight. Will monitor. Related to Lumbosacral radiculopathy due to degenerative joint disease of spine Symptomatic. Continu e following up with orthopaedic surgeon as scheduled. Continue with Hydrocodone 5-325mg 1 tab every 12 hours as needed, Relafen 750mg 1 tablet BID, and Gabapentin 300mg 2 tabs QID. Encourage to complete stretches and vsery-pk-linmss exercises. Encouraged patient to try and lose some weight. Will monitor. Related to Unilateral primary osteoarthritis, left knee Medication management BMI >33. START Phent ermine 37.5 mg 1 tablet 1 hr before lunch. Encouraged healthy diet and exercise. Will continue to monitor. Related to Obesity (BMI 30.0-34.9) Asymptomatic. Will monitor. Rela kathrine to Fatigue, unspecified type Controlled. Continue with Trazodone 100mg 1 tablet at bedtime. Encourage good sleep hygiene. Will monitor. Related to Insomnia, unspecified type Managed per OBGYN. C ontrolled by Metformin ER 500mg 1 tablet BID and Spironolactone 50mg 1 tab daily per recommendation of OBGYN. Will monitor. Related to Polycystic ovary syndrome Breathing stable tod ay. Continue current treatment [...] tabs QID. Encourage to complete stretches and ptljx-zm-iazctg exercises. Encouraged patient to try and lose some weight. Will monitor. Related to Unilateral primary osteoarthritis, left knee Controlled. Continue following up with orthopaedic surgeon as scheduled. Continue with Hydrocodone 5-325mg 1 tab every 12 hours as needed. STOP Feldene 20mg 1 tab daily. START with Relafen 750mg 1 tablet BID. Continue with Gabapentin 300mg 2 tabs QID. Encourage to complete stretches and tofzc-tb-yewucx exercises. Encouraged patient to try and lose [...] tabs QID. Encourage to complete stretches and tpoee-ym-ccihnh exercises. Encouraged patient to try and lose [...] tabs QID. Encourage to complete stretches and xsdnn-xd-mkrdib exercises. Encouraged patient to try and lose some weight. Will monitor. Related to Spondylosis Symptomatic. Continu e following up with orthopaedic surgeon as scheduled. Continue with Hydrocodone 5-325mg 1 tab every 6 hours as needed. STOP Feldene 20mg 1 tab daily. START Relafen 750mg 1 tablet BID Continue with Gabapentin 300mg 2 tabs QID. Encourage to complete stretches and wxlrz-jx-tymwrz exercises. Encouraged patient to try and lose [...] as directed. Encourage to complete stretches and rysaw-tu-avgoqr exercises. Encouraged patient to try and lose some weight. Will monitor. Related to Sciatica, unspecified laterality Stable. Will continu e to monitor. Notify for worsening symptoms. Related to Irritable bowel syndrome with diarrhea Controlled. Continue with Trazodone 100mg 1 tablet at bedtime. Encourage good sleep hygiene. Will monitor. Related to Insomnia, unspecified type WBC 16.78 on 019. Will refer to nail setter if WBC remains elevated today. Will monitor. [...] as directed. Encourage to complete stretches and ftxyn-fn-yblmgi exercises. Encouraged patient to try and lose [...] as directed. Encourage to complete stretches and xjobz-zb-tehcxu exercises. Encouraged patient to try and lose [...] as directed. Encourage to complete stretches and nbdpt-qj-yauwul exercises. Encouraged patient to try and lose [...] as noted above Related to Sexual dysfunction Shes on metformin ER 500mg twice daily. See plan 3 Related to PCOS (polycystic ovarian syndrome) Discussed laser hair removing or waxing with patient for hair removal. Labs: Testosterone level, LH, FSH, progesterone level, estradiol level, TSH Related to Hirsutism Pap smear done in office today. Related [...] [facility] Stable, no recent fl are ups. Continue [...] to Irritable bowel syndrome with diarrhea Symptoms unchanged. Continue current treatment plan with Gabapentin 300mg 2 tabs QID and Flexeril 10mg 1 tab QHS. Encourage to complete stretches and movgt-ar-pckntc exercises. Will continue to monitor. Related to Sciatica, unspecified laterality Controlled. Continue with Trazodone 100mg 1 tablet at bedtime. Encourage good sleep hygiene. Will monitor. Related to Insomnia, unspecified type Pain persists. Judy nue following up with orthopaedic surgeon as scheduled. Continue with Hydrocodone 5-325mg 1 tab every 6 hours as needed and Feldine 20mg 1 tab daily. Gabapentin 300mg 2 tabs QID and Flexeril 10mg 1 tab QHS as directed. Encourage to complete stretches and lqxtl-tm-snzmdb exercises. Encouraged patient to try and lose [...] as directed. Encourage to complete stretches and ovfcd-xb-zwuqde exercises. Encouraged patient to try and lose some weight. Will monitor. Related to Lateral epicondylitis of right elbow WBC 16.78 on 019. Will refer to nail setter if WBC remains elevated today. Will monitor. Related to Leukocytosis, unspecified type Pain persists. Judy nue following up with orthopaedic surgeon as scheduled. Continue with Hydrocodone 5-325mg 1 tab every 6 hours as needed and Feldine 20mg 1 tab daily. Gabapentin 300mg 2 tabs QID and Flexeril 10mg 1 tab QHS as directed. Encourage to complete stretches and xqpfc-so-drpany exercises. Encouraged patient to try and lose [...] as directed. Encourage to complete stretches and ymexs-ov-sugqda exercises. Encouraged patient to try and lose some weight. Will monitor. Related to Unilateral primary osteoarthritis, left knee Controlled with diet and exercise. Encourage Pt to maintain a low-sodium diet and regular exercise as tolerated. Will continue to monitor. Notify for SOB, CP, palpitations, lightheadedness, or edema.Labs: CBC and CMP Related to Essential hypertension Medication management Start buspirone 10-1 5 mg [...] as directed. Encourage to complete stretches and ognzv-ex-oltdik exercises. Encouraged patient to try and lose some weight. Will monitor. Related to Osteoarthritis of left knee, unspecified osteoarthritis type Stable, no recent fl are ups. [...] tab QHS. Encourage to complete stretches and iiake-kt-booekk exercises. Will continue to monitor. Related to Sciatica, unspecified laterality Controlled. Continue with Trazadone 50mg 1 tablet at bedtime. Encourage good sleep hygiene. Will monitor. Related to Insomnia, unspecified type Encourage to maintai n a healthy low-fat diet and regular exercise as tolerated. Will continue to monitor. Related to Mixed hyperlipidemia Controlled with diet and exercise. Encourage Pt to maintain a low-sodium diet and regular exercise as tolerated. Will continue to monitor. Notify for SOB, CP, palpitations, lightheadedness, or edema.Labs: CBC and CMP Related to Essential hypertension Pain persists. Judy nue with Gabapentin 300mg 2 tabs QID and Flexeril 10mg 1 tab QHS as directed. Encourage to complete stretches and gwfrr-tq-wcpura exercises. Encouraged patient to try and lose [...] as directed. Encourage to complete stretches and ndpjc-sj-ejhnzk exercises. Encouraged patient to try and lose some weight. Will monitor. Related to Lumbosacral radiculopathy due to degenerative joint disease of spine Pain persists. Judy nue with Gabapentin 300mg 2 tabs QID and Flexeril 10mg 1 tab QHS as directed. Encourage to complete stretches and tgrfq-af-xfbawq exercises. Encouraged patient to try and lose some weight. Will monitor. Related to Lateral epicondylitis of right elbow WBC 19.61 on 019 and 19.23 on 05/20/2019. Will refer to nail setter if WBC remains elevated today. Will monitor. [...]
--- OUTSIDE RECORDS SUMMARY | 2025-03-09 16:19 | XMS_ITS | Referral Summary ---
Author Organization [facility] Address [address] [place] [address] Care Team Providers Care Design Engineering Intern Name Role Phone Cody Roper DO Primary Care Provider David Bell MD Unavailable [phone] Encounters Date Type Department Care Team Description 03/04/2025 2:45 PM CDT Office Visit [facility] Surgery [address] [place] [address] 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); Acute postoperative pain; Compartment syndrome of forearm Discharge Disposition: Discharge to home or self care 02/26/2025 8:00 AM CDT - 02/26/2025 10:00 AM CDT Surgery [facility] [address] [place] [phone] Lexis Renteria MD RIGHT FOREARM SECONDARY CLOSURE OF SURGICAL WOUND 02/26/2025 8:15 AM CDT Anesthesia Event [facility] [address] [place] [address] [phone] Brandon Reyes MD 02/25/2025 Telephone [facility] Surgery [address] [facility] 6th [place] [address] [place] [phone] Shweta Perry RN 02/19/2025 9:10 PM CDT Anesthesia Event [facility] [address] [place] [phone] Palomo Jaramillo MD Bharadwaj, Amy Robles MD 02/19/2025 9:35 PM CDT - 02/19/2025 11:35 PM CDT Surgery [facility] [address] [place] [phone] Lexis Renteria MD FASCIOTOMY from Last 3 Months Allergies No known active allergies Medications traZODone (DESYREL) 50 mg tablet Take 50 mg by mouth nightly at bedtime. 0 05/20/20 19 Active piroxicam (FELDENE) 20 mg capsule Take by mouth daily 3 06/20/20 19 Active montelukast (SINGULAIR) 10 mg tablet Take 10 mg by mouth every evening 3 06/11/20 19 Active metFORMIN XR (GLUCOPHAGE XR) 500 mg 24 hr tablet Take by mouth 2 (two) times a day with meals 11 05/24/20 19 Active DULERA 200-5 mcg/actuation inhaler TAKE 2 PUFFS BY MOUTH TWICE A DAY 3 06/11/20 19 Active gabapentin (NEURONTIN) 300 mg capsule 600 mg 3 (three) times a day 05/24/20 19 Active cetirizine (ZyrTEC) 10 mg tablet Take 10 mg by mouth daily Active albuterol 2.5 mg /3 mL (0.083 %) nebulizer solution as needed Active busPIRone (BUSPAR) 10 mg tablet buspirone 10 mg tablet Active Viberzi 100 mg tablet 2 (two) times a day 10/18/20 22 Active dicyclomine (BENTYL) 20 mg tablet Take 20 mg by mouth 3 (three) times a day as needed 09/02/20 22 Active Advair Diskus 250-50 mcg/dose diskus inhaler TAKE 1 PUFF BY MOUTH TWICE A DAY 08/03/20 22 Active hydrocortisone (ANUSOL-HC) 2.5 % rectal cream 10/17/20 Active nabumetone (RELAFEN) 750 mg tablet Take 750 mg by mouth 2 (two) times a day 09/02/20 22 Active diazePAM (VALIUM) 10 mg tabletIndications :Sedation,anxiety Take 1 tablet 1 hour before procedure. Will need log driver to bring him. 2 tablet 11/30/19 23 Active acetaminophen 500 mg capsuleIndication s:Pain Take 2 capsules (1,000 mg total) by mouth every 6 (six) hours 30 tablet 02/21/20 25 Active cyclobenzaprine (FLEXERIL) 5 mg tabletIndications :Muscle Spasm Take 1 tablet (5 mg total) by mouth 3 (three) times a day 30 tablet 02/21/20 25 Active docusate sodium (COLACE) 100 mg capsuleIndication s:constipation Take 1 capsule (100 mg total) by mouth 2 (two) times a day for 7 days 14 capsule 02/21/20 25 Active ondansetron ODT (ZOFRAN-ODT) 4 mg disintegrating tabletIndications :nausea and vomiting Take 1 tablet (4 mg total) by mouth every 6 (six) hours as needed for nausea or vomiting 20 tablet 02/21/20 25 Active amitriptyline (ELAVIL) 10 mg tablet Take 1 tablet (10 mg total) by mouth nightly 30 tablet 02/27/20 25 2024 Active pregabalin (LYRICA) 75 mg capsule Take 1 capsule (75 mg total) by mouth 2 (two) times a day 60 capsule 02/27/20 25 2024 Active bacitracin 500 unit/gram ointment Apply topically 2 (two) times a day 113 g 02/28/20 25 Active oxyCODONE (ROXICODONE) 10 mg tabletIndications :Pain Take 1 tablet (10 mg total) by mouth every 4 (four) hours as needed for pain 20 tablet 02/28/20 25 Active gabapentin (NEURONTIN) 300 mg capsuleIndication s: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 Take 1 capsule (300 mg total) by mouth nightly 30 capsule 03/04/20 25 2024 Active HYDROcodone-aceta minophen (NORCO) 5-325 mg per tablet TAKE 1 TABLET BY MOUTH THREE TIMES A DAY NEEDED FOR PAIN 09/30/20 22 2024 Discontinued(S top Taking at Discharge) oxyCODONE (ROXICODONE) 5 mg immediate release tabletIndications :Pain Take 1 tablet (5 mg total) by mouth every 4 (four) hours as needed for pain 20 tablet 02/21/20 25 2024 Discontinued oxyCODONE (ROXICODONE) 5 mg immediate release tabletIndications :Pain Take 2 tablets (10 mg total) by mouth every 4 (four) hours as needed for pain for up to 20 doses 40 tablet 02/28/20 25 2024 Discontinued(S top Taking at Discharge) Active Problems Problem Noted Date Diagnosed Date Acute postoperative pain 02/25/2025 Non-traumatic compartment syndrome of right uppe r extremity 02/19/2025 Compartment syndrome of forearm 02/19/2025 Chronic pain of left knee 11/30/2022 Myalgia [...] = 0.6 oz pur e alcohol) rare [facility] Utilities Answer Date Recorded In the past 12 months has [employer], [employer], oil, or water [employer] threatened to shut off services in your home? No 02/25/2025 Social Connection and Isolat ion Panel [NHANES] Answer Date Recorded In a typical week, how many times do you talk on the phone with family, friends, or neighbors? More than three times a week 02/25/2025 How often do you get togethe r with friends or relatives? More than three times a week 02/25/2025 How often do you attend chur or anabaptist services? Never 02/25/2025 Do you belong to any clubs o r organizations such as holiness groups, unions, fraternal or athletic groups, or school groups? No 02/25/2025 How often do you attend meet ings of the clubs or organizations you belong to? Never 02/25/2025 Are you , , di vorced, , never , or living with a partner? 02/25/2025 Overall Financial Resource Strain (CARDIA) Answe r Date Recorded How hard is it for you to pa y for the very basics like food, housing, medical care, and heating? Hard 02/25/2025 PHQ-2 Answer Date Recorded PHQ-2 Total Score (If total score is 3 or more points, staff should administer the PHQ-9) 0 02/25/2025 Hunger Vital Sign Answer Date Recorded Within the past 12 months, y ou worried that your food would run out before you got the money to buy more. Often true 02/26/20 25 Within the past 12 months, t he food you bought just didn't last and you didn't have money to get more. Often true 02/25/2025 PRAPARE - Transportation Answer Date Re corded In the past 12 months, has l ack of transportation kept you from medical appointments or from getting medications? No 07/2025 In the past 12 months, has l ack of transportation kept you from meetings, work, or from getting things needed for daily living? No 02/25/2025 Housing Stability Vital Sign Answer Luis e Recorded In the last 12 months, was t here a time when you were not able to pay the mortgage or rent on time? No 02/25/2025 In the past 12 months, how m any times have you moved where you were living? 0 02/25/2025 At any time in the past 12 m [facility], were you homeless or living in a mcc (including now)? No 02/25/2025 Personal Safety Answer Date Recorded Have you ever been in or are you currently in a harmful physical or emotional relationship or is someone making you feel afraid or unsafe? Denies 02/20/2025 Comments No Sex and Gender Information Value Date Recorded Sex Assigned at Not on file Legal Sex Female 8:19 AM CDT Gender Identity Not on file Sexual Orientation Not on file Last Filed Vital Signs Vital Sign Reading Time Taken Comments Blood Pressure 130/71 02/27/2025 7:43 AM CDT Pulse 70 02/27/2025 7:43 AM CDT Temperature 36.5 C (97.7 F) 02/27/2025 7:43 AM CDT Respiratory Rate 20 02/27/2025 7:43 AM CDT Oxygen Saturation 99% 02/27/2025 7:43 AM CDT Inhaled Oxygen Concentration - - Weight 81.2 kg (179 lb) 02/25/2025 9:00 AM CDT Height 157.5 cm (5' 2 ) 02/20/2025 12:50 AM CDT Body Mass Index 32.74 02/20/2025 12:50 AM CDT Plan of Treatment Not on file Procedures Procedure Name Priority Date/Time Associated Diagnosis Comments POCT GLUCOSE DEVICE Routine 02/26/2025 9 :34 AM CDT ANESTHESIA INTUBATION Routine 02/26/2025 8:31 AM CDT SPLIT THICKNESS SKIN GRAFT - UPPER EXTREMITY 02/26/2025 8:15 AM CDT 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 NB4/4 - Case msg requesting cut to close. NB Special Needs dermatome and mesher POCT GLUCOSE DEVICE Routine 02/26/2025 7 :53 AM CDT TYPE AND SCREEN STAT 02/26/2025 7:47 AM CDT EGFR Routine 02/25/2025 9:31 PM CDT BASIC METABOLIC PANEL Routine 02/25/2025 9:31 PM CDT CBC WITHOUT DIFFERENTIAL Routine 02/25/2025 9:31 PM CDT HEMOGLOBIN A1C Routine 02/24/2025 9:50 AM CDT EGFR Routine 02/21/2025 8:58 AM CDT BASIC METABOLIC PANEL Routine 02/21/2025 8:58 AM CDT CBC WITHOUT DIFFERENTIAL Routine 02/21/2025 8:58 AM CDT XR CHEST 1 VIEW IP Routine 02/20/2025 1:55 PM CDT RESPIRATORY PATHOGEN PANEL Routine 02/20/2025 10:39 AM CDT WY AN PROCEDURE PLACEHOLDER Routine 02/19/2025 9:34 PM CDT [place] AN EMERGENT ENDOTRACHEAL AIRWAY Routine 02/19/2025 9:34 PM CDT RELEASE MEDIAN NERVE 02/19/2025 9:17 PM CDT 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 Case Notes Imtiaz [phone] @ 2032 RELEASE GUYONS CANAL 02/19/2025 9:17 PM CDT 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 Case Notes Imtiaz [phone] @ 2032 RELEASE CARPAL TUNNEL 02/19/2025 9:17 PM CDT 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 Case Notes Imtiaz [phone] @ 2032 FASCIOTOMY 02/19/2025 9:17 PM CDT 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 Case Notes Imtiaz [phone] @ 2032 POCT HCG, URINE Routine 02/19/2025 9:10 PM CDT URINALYSIS, MICROSCOPIC ONLY STAT 02/19/2025 9:09 PM CDT URINALYSIS AND REFLEX TO MICROSCOPIC AND CULTURE STAT 02/19/2025 9:09 PM CDT B CHECK SAMPLE STAT 02/19/2025 9:[address] BODY OUTSIDE CONSULT Routine 02/19/2025 8:43 PM CDT WY CRITICAL CARE ILL/INJURED PATIENT INIT 30-74 MIN Routine 02/19/2025 8:35 PM CDT CREATINE KINASE (CK), TOTAL STAT 02/19/2025 8:20 PM CDT EGFR STAT 02/19/2025 8:20 PM CDT DIFFERENTIAL AUTO STAT 02/19/2025 8:2 0 PM CDT PROTIME-INR STAT 02/19/2025 8:20 PM CDT APTT STAT 02/19/2025 8:20 PM CDT TYPE AND SCREEN STAT 02/19/2025 8:20 PM CDT COMPREHENSIVE METABOLIC PANEL STAT 02/19/2025 8:20 PM CDT CBC WITH AUTO DIFFERENTIAL STAT 02/19/2025 8:20 PM CDT from Last 3 Months Results * POCT glucose (02/26/2025 9:34 AM CDT) [facility] Signature Glucose, POC 130 70 - 199 mg/dL Blood 02/26/2025 9:34 AM CDT 02/26/2025 9:34 AM CDT us Lexis Renteria MD LAB POCT ORDERABLES - DE VICE Final Result [facility] Department [place] [address] * Airway (02/26/2025 8:31 AM CDT) Narrative Tristian Vidal MD - 02/26/2025 8:31 AM CDT Tristian Vidal MD 02/26/2025 8:32 AM Airway Patient location: OR Urgency: elective Indications for airway management: anesthesia Difficult airway: no Staff: Supervising provider: Brandon Reyes MD Placed by: Resident: Tristian Vidal MD Airway prep: Preoxygenated: yes Patient position: sniffing Spontaneous ventilation during airway: absent Sedation level during airway: GA Final airway details: Final airway type: endotracheal airway Tube type: ETT ETT size: 7.0 mm Cuffed: yes Technique used for successful ETT placement: video laryngoscopy Devices/Methods used in placement: intubating stylet Insertion site: oral Blade type: Natividad Video blade type: Lebron Blade size: 3 Cormack-Lehane (video): grade I - full view of glottis Cuff volume: 8 mL Cuff inflated with: air ETT to lips: 21 cm Placement verified by: auscultation and CO2 detection Airway secured with: silk tape Number of attempts: 1 Brandon Reyes MD ANESTHESIA ORDERABLES F inal Result * POCT glucose (02/26/2025 7:53 AM CDT) Glucose, POC 107 70 - 199 mg/dL Blood 02/26/2025 7:53 AM CDT 02/26/2025 7:53 AM CDT Lexis Renteria MD LAB POCT ORDERABLES - DE VICE Final Result Performing Organization Address City/[facility] Co de Phone Number [facility] [place] [address] * Type and screen (02/26/2025 7:47 AM CDT) ABO Rh A Positive Ashely, indirect Negative [facility] Blood 02/26/2025 7:47 AM CDT 02/26/2025 8:09 AM CDT Narrative [facility] - 02/26/2025 9:00 AM CDT Has the patient had Daratumumab or Isatuximab in the past 6 months?->Unknown Brandon Reyes MD LAB BLOOD BANK TEST ORD ERABLES Final Result [facility] [place] [address] * eGFR (02/25/2025 9:31 PM CDT) [facility] eGFR >90 >=60 mL/min/1. 73 m2 Comment: Interpretive Data Reference Interval Normal >/= 90 mL/min/1.73m2 Mildly decreased* 60 - 89 mL/min/1.73m2 Mildly to moderately decreased 45 - 59 mL/min/1.73m2 Moderately to severely decreased 30 - 44 mL/min/1.73m2 Severely decreased 15 - 29 mL/min/1.73m2 Kidney Failure < 15 mL/min/1.73m2 *Relative to young adult level Estimated glomerular filtration rate is determined by the 2020 CKD-EPI equation recommended by the National Kidney Foundation (A Unifying Approach to GFR Estimation: Recommendations of the NKF-ASK Task Force on Reassessing the Inclusion of Race in Diagnosing Kidney Disease, JASN 2020). The CKD-EPI equation should not be used for patients with unstable renal function and has not been validated in children and those over 70. Current interpretive data was last reviewed 2021. Blood 02/25/2025 9:31 PM CDT 02/25/2025 10:12 PM CDT us Lexis Renteria MD LAB BLOOD ORDERABLES Fin al Result [facility] Department [place] [address] * (ABNORMAL) CBC without differential (02/25/2025 9:31 PM CDT) [facility] WBC 14.05(H) 3.80 - 9.90 K/cumm Hgb 13.5 11.9 - 15.5 g/dL [facility] Hct 41.7 35.6 - 45.5 % [facility] Plt 286 150 - 400 K/cumm [facility] MPV 9.5 9.1 - 12.3 fL [facility] RBC 4.50 3.90 - 5.20 M/cumm [facility] MCV 92.7 81.3 - 96.4 fL [facility] MCH 30.0 27.1 - 33.3 pg [facility] MCHC 32.4 32.3 - 35.7 g/dL [facility] RDW CV 14.4 11.1 - 14.9 % [facility] RDW SD 48.6(H) 35.7 - 48.1 fL [facility] NRBC abs 0.00 0.00 - 0.01 K/cumm [facility] Blood 02/25/2025 9:31 PM CDT 02/25/2025 10:13 PM CDT Lexis Renteria MD LAB BLOOD ORDERABLES Fin al Result [facility] Department [place] [address] * Basic metabolic panel (02/25/2025 9:31 PM CDT) Sodium 139 135 - 145 mmol/L Potassium, pl 4.3 3.3 - 4.9 mmol/L [facility] Chloride 103 97 - 110 mmol/L [facility] CO2 26 22 - 32 mmol/L [facility] Anion gap 10 2 - 15 mmol/L [facility] BUN 12 6 - 25 mg/dL [facility] Creatinine 0.69 0.60 - 1.10 mg/dL [facility] Glucose 133 70 - 199 mg/dL [facility] Comment: Interpretive Data Fasting glucose >/= 126 mg/dl is diagnostic for diabetes. Fasting is defined as no caloric intake for at least 8 hours. Fasting glucose between 100 mg/dl to 125 mg/dl is diagnostic of prediabetes. In a patient with classic symptoms of hyperglycemia or hyperglycemic crisis, a random glucose >/= 200 mg/dl is diagnostic for diabetes. In the absence of unequivocal hyperglycemia, results should be confirmed by repeat testing. The classification and Diagnosis of Diabetes Diabetes Care 2021; 46: S19-S40. Current interpretive data was last revised 2022. Calcium 9.1 8.5 - 10.3 mg/dL [facility] Blood 02/25/2025 9:31 PM CDT 02/25/2025 10:12 PM CDT Lexis Renteria MD LAB BLOOD ORDERABLES Fin al Result Performing Organization Address [facility] Co de Phone Number [facility] Department [place] [address] * (ABNORMAL) Hemoglobin A1c (02/24/2025 9:50 AM CDT) Hgb A1C 6.3(H) 4.0 - 5.6 % Estimated Average Glucose 134 mg/dL [facility] Comment: The ADA recommends reporting an estimated Average Glucose (eAG) with all Hemoglobin A1c results using the equation derived from a study of 507 normal and diabetic adults. Minority populations were underrepresented and children were not included. (Diabetes Care 2020; 43(S1): S66-S76). The eAG is not equivalent to a fasting glucose. Blood 02/24/2025 9:50 AM CDT 02/24/2025 10:05 AM CDT Kindra Sibley NP LAB BLOOD ORDERABLES Fin al Result Performing Organization Address [facility] Co de Phone Number [facility] Department [place] [address] * eGFR (02/21/2025 8:58 AM CDT) eGFR >90 >=60 mL/min/1. 73 m2 Comment: Interpretive Data Reference Interval Normal >/= 90 mL/min/1.73m2 Mildly decreased* 60 - 89 mL/min/1.73m2 Mildly to moderately decreased 45 - 59 mL/min/1.73m2 Moderately to severely decreased 30 - 44 mL/min/1.73m2 Severely decreased 15 - 29 mL/min/1.73m2 Kidney Failure < 15 mL/min/1.73m2 *Relative to young adult level Estimated glomerular filtration rate is determined by the 2020 CKD-EPI equation recommended by the National Kidney Foundation (A Unifying Approach to GFR Estimation: Recommendations of the NKF-ASK Task Force on Reassessing the Inclusion of Race in Diagnosing Kidney Disease, JASN 2020). The CKD-EPI equation should not be used for patients with unstable renal function and has not been validated in children and those over 70. Current interpretive data was last reviewed 2021. Blood 02/21/2025 8:58 AM CDT 02/21/2025 9:11 AM CDT Lexis Renteria MD LAB BLOOD ORDERABLES Fin al Result Performing Organization Address [facility] Co de Phone Number [facility] [place] [address] * (ABNORMAL) CBC without differential (02/21/2025 8:58 AM CDT) Pathologist [facility] WBC 17.70(H) 3.80 - 9.90 K/cumm Hgb 13.5 11.9 - 15.5 g/dL [facility] Hct 40.8 35.6 - 45.5 % [facility] Plt 267 150 - 400 K/cumm [facility] MPV 9.4 9.1 - 12.3 fL [facility] RBC 4.49 3.90 - 5.20 M/cumm [facility] MCV 90.9 81.3 - 96.4 fL [facility] MCH 30.1 27.1 - 33.3 pg [facility] MCHC 33.1 32.3 - 35.7 g/dL [facility] RDW CV 14.6 11.1 - 14.9 % [facility] RDW SD 48.9(H) 35.7 - 48.1 fL [facility] NRBC abs 0.00 0.00 - 0.01 K/cumm [facility] Blood 02/21/2025 8:58 AM CDT 02/21/2025 9:11 AM CDT us Lexis Renteria MD LAB BLOOD ORDERABLES Fin al Result Performing Organization Address [facility]/ZIP Co de Phone Number [facility] [place] [address] * (ABNORMAL) Basic metabolic panel (02/21/2025 8:58 AM CDT) Sodium 138 135 - 145 mmol/L Potassium, pl 3.5 3.3 - 4.9 mmol/L [facility] Chloride 102 97 - 110 mmol/L [facility] CO2 26 22 - 32 mmol/L [facility] Anion gap 10 2 - 15 mmol/L [facility] BUN 9 6 - 25 mg/dL [facility] Creatinine 0.70 0.60 - 1.10 mg/dL [facility] Glucose 240(H) 70 - 199 mg/dL [facility] Comment: Interpretive Data Fasting glucose >/= 126 mg/dl is diagnostic for diabetes. Fasting is defined as no caloric intake for at least 8 hours. Fasting glucose between 100 mg/dl to 125 mg/dl is diagnostic of prediabetes. In a patient with classic symptoms of hyperglycemia or hyperglycemic crisis, a random glucose >/= 200 mg/dl is diagnostic for diabetes. In the absence of unequivocal hyperglycemia, results should be confirmed by repeat testing. The classification and Diagnosis of Diabetes Diabetes Care 2021; 46: S19-S40. Current interpretive data was last revised 2022. Calcium 9.0 8.5 - 10.3 mg/dL [facility] Blood 02/21/2025 8:58 AM CDT 02/21/2025 9:11 AM CDT Lexis Renteria MD LAB BLOOD ORDERABLES Fin al Result [facility] Department [place] [address] * XR Chest 1 View (02/20/2025 1:55 PM CDT) Anatomical Region Laterality Modality Body, Chest N/A Digital Radiogra phy 02/20/2025 4:10 PM CDT Impressions 02/20/2025 4:23 PM CDT There are no prior chest radiographs for comparison. Comparison is made to CT dated 02/19/2025. Cervical spinal fusion instrumentation noted. No focal consolidation. No pleural effusion. No pneumothorax. Cardiomediastinal silhouette within normal limits. Dictated by: Blanka Mcdonald M.D. The radiology attending physician has personally reviewed this study, and had reviewed and/or edited this written report and agrees with it. Electronically signed by: Jairo Claire M.D. Narrative 02/20/2025 4:23 PM CDT EXAMINATION: 1 view chest radiograph Procedure Note Jairo Claire MD - 02/20/2025 EXAMINATION: 1 view chest radiograph IMPRESSION: There are no prior chest radiographs for comparison. Comparison is made to CT dated 02/19/2025. Cervical spinal fusion instrumentation noted. No focal consolidation. No pleural effusion. No pneumothorax. Cardiomediastinal silhouette within normal limits. Dictated by: Blanka Mcdonald M.D. The radiology attending physician has personally reviewed this study, and had reviewed and/or edited this written report and agrees with it. Electronically signed by: Jairo Claire M.D. Nathalie [facility] [employer] IMG XR PROCEDURES Final Resu lt * Respiratory pathogen panel Nasopharyngeal (02/20/2025 10:39 AM CDT) Influenza A RNA Not Detected Not Detected Influenza B RNA Not Detected Not Detected [facility] RSV RNA Not Detected Not Detected [facility] COVID-19 RNA Not Detected Not Detected [facility] Coronavirus 229E RNA Not Detected Not Detected [facility] Coronavirus HKU1 RNA Not Detected Not Detected [facility] Coronavirus NL63 RNA Not Detected Not Detected [facility] Coronavirus OC43 RNA Not Detected Not Detected [facility] Adenovirus DNA Not Detected Not Detected [facility] Metapneumovirus RNA Not Detected Not Detected [facility] Rhinovirus/Enterov irus RNA Not Detected Not Detected [facility] Parainfluenza 1 RNA Not Detected Not Detected [facility] [facility] Parainfluenza 2 RNA Not Detected Not Detected [facility] Parainfluenza 3 RNA Not Detected Not Detected [facility] Parainfluenza 4 RNA Not Detected Not Detected [facility] B. pertussis DNA Not Detected Not Detected [facility] B. parapertussis DNA Not Detected Not Detected [facility] C. pneumoniae DNA Not Detected Not Detected [facility] M. pneumoniae DNA Not Detected Not Detected [facility] Nasopharyngeal 02/20/2025 10 :39 AM CDT 02/20/2025 10:52 AM CDT [facility]ative [facility] - 02/20/2025 11:59 AM CDT Is the Patient experiencing symptoms consistent with COVID?->No Surveillance testing for transplant patient?->No Interpretive Data The NVELO FilmArray Respiratory Panel (RP2.1) assay is a multiplexed real-time PCR based nucleic acid test capable of simultaneous qualitative detection and identification of multiple respiratory viral and bacterial nucleic acids, including SARS Coronavirus 2 (the causative agent of COVID-19). The following bacteria, viruses and virus subtypes can be identified using the FilmArray RP2.1 assay: Bordetella pertussis, Bordetella parapertussis, Chlamydia pneumoniae, Mycoplasma pneumoniae, Adenovirus, SARS Coronavirus 2, seasonal coronaviruses (Coronavirus HKU1, Coronavirus NL63, Coronavirus 229E, and Coronavirus OC43), Influenza A, Influenza A subtype H1, Influenza A subtype H3, Influenza A subtype 2009 H1, Influenza B, Metapneumovirus, Parainfluenza 1, Parainfluenza 2, Parainfluenza 3, Parainfluenza 4, RSV, Rhinovirus/Enterovirus. Due to the genetic similarity between human Rhinovirus and Enterovirus, the FilmArray RP2.1 assay cannot reliably differentiate them. Coronavirus OC43 may cross-react with some isolates of Coronavirus HKU1. A dual positive result may be due to cross-reactivity or may indicate a co- infection. The detection and identification of specific viral and bacterial nucleic acids from individuals exhibiting signs and symptoms of a respiratory infection aids in the diagnosis of respiratory infection if used in conjunction with other clinical and epidemiological information. The results of this test should not be used as the sole basis for diagnosis, treatment, or other management decisions. Negative results in the setting of a respiratory illness may be due to infection with pathogens that are not detected by this test. Positive results do not rule out infection/co-infection with other organisms. The agent(s) detected by the FilmArray RP2.1 may not be the definite cause of disease. Additional testing (lab, imaging, etc.) may be necessary when evaluating a patient with possible respiratory tract infection. The FilmArray RP2.1 assay has FDA clearance for testing of [employer] swabs. The performance of additional specimen types has been assessed by the performing laboratory. The performance characteristics of this assay have been determined by [facility]. Current interpretive data was last revised on 22. us Nathalie Rodriguez [employer] LAB MICROBIOLOGY - GENERAL O RDERABLES Final Result MARIBELL BISHOP Fam [facility] Department [place] [address] * [place] AN EMERGENT ENDOTRACHEAL AIRWAY, [place] AN PROCEDURE PLACEHOLDER (02/19/2025 9:34 PM CDT) Narrative Tory Lazaro CRNA - 02/19/2025 9:34 PM CDT Tory Lazaro CRNA 02/19/2025 9:34 PM Airway Patient location: OR Urgency: emergent Indications for airway management: anesthesia Difficult airway: no Staff: Placed by: PROTEIN SPECIALIST: Tory Lazaro CRNA Emergent airway documentation: Patient identity confirmed by: verbally with patient and arm band Risks and benefits discussed: yes Consent obtained: yes Consent given by: patient Airway prep: Preoxygenated: yes Patient position: sniffing Mask difficulty assessment: 1 - vent by mask Spontaneous ventilation during airway: present Sedation level during airway: GA Final airway details: Final airway type: endotracheal airway Tube type: ETT ETT size: 7.0 mm Cuffed: yes Technique used for successful ETT placement: video laryngoscopy Devices/Methods used in placement: intubating stylet Insertion site: oral Blade type: Natividad Video blade type: Lebron Blade size: 3 Cormack-Lehane (video): grade I - full view of glottis Initial cuff pressure: 20 cm H2O Cuff volume: 6 mL Cuff inflated with: air ETT to teeth: 21 cm ETT to gums: 22 cm Placement verified by: auscultation Airway secured with: silk tape Number of attempts: 1 Ventilation between attempts: BVM us Palomo Jaramillo MD ANESTHESIA ORDERABLES Final Result * POCT hCG, urine (02/19/2025 9:10 PM CDT) HCG, ur, POC Negative Negative Lot Number [id number] QC Backgroud Clear Acceptable QC Control Line Acceptable Urine 02/19/2025 9:10 PM CDT Lauren Haro MD POINT OF CARE TEST ORDE RABLES Final Result * (ABNORMAL) Urinalysis reflex to microscopic and culture Urine, clean voided (02/19/2025 9:09 PM CDT) Color, ur Straw Yellow Clarity, ur Clear Clear [facility] Specific gravity, ur >1.042(H) 1.003 - 1.030 [facility] pH, urine 6.5 [facility] Comment: Interpretive Data U rine pH is affected by diet, medications, systemic acid-base disturbances, and renal tubular function. pH may affect urinary stone formation. For example, urine pH below 6.0 may help reduce the tendency for calcium phosphate stones and pH greater than 6.0 may reduce the tendency for uric acid stone formation. Source: [facility] [place] Current Interpretive Data was last revised on 2017 Protein, ur ql 1+(A) Negative [facility] Glucose, ur ql Negative Negative [facility] Ketones, ur Trace Negative [facility] Bilirubin, ur Negative Negative [facility] Blood, ur 2+(A) Negative [facility] Urobilinogen, ur <2.0 <2.0 mg/dL [facility] Nitrite, ur Negative Negative [facility] Leukocyte esterase, ur Trace(A) Negative [facility] UA reflex comment Reflex to microscopic UA will be performed. [facility] Urine, clean voided 02/19/2025 9:09 PM CDT 02/19/2025 9:24 PM CDT Lauren Haro MD LAB MICROBIOLOGY - GENE RAL ORDERABLES Final Result [facility] Department [place] [address] * (ABNORMAL) Urinalysis, microscopic only (02/19/2025 9:09 PM CDT) WBC, ur 6-10(A) 0 - 5 /HPF RBC, ur 6-10(A) 0 - 2 /HPF [facility] Epithelial cells, squamous, ur 6-10(A) 0 - 5 /HPF [facility] Comment:Suggestive of contam ination. Consider recollection by clean catch. Mucous, ur Present(A) [facility] Culture Reflex Comment Reflex conditions for urine culture (WBC >10) not met. [facility] Urine, clean voided 02/19/2025 9:09 PM CDT 02/19/2025 9:24 PM CDT Lauren Haro MD LAB URINE ORDERABLES Fi nal Result [facility] Department [place] [address] * Check Sample (02/19/2025 9:01 PM CDT) Pathologist [facility] ABO Rh A Positive [facility] OTHER 02/19/2025 9:01 PM CDT 02/19/2025 9:10 PM CDT Magalie Archibald MD LAB BLOOD ORDERABLES Final Result [facility] [place] [address] [facility] * CT Body Outside Consult (02/19/2025 8:43 PM CDT) Anatomical Region Laterality Modality Body N/A Computed Tomogra phy 02/19/2025 9:22 PM CDT Impressions 02/20/2025 11:06 AM CDT 1. Two left renal calculi measuring up to 5 mm without hydronephrosis with associated urothelial thickening, likely reactive to a recently passed stone. If findings are concerning for a infectious process, recommend correlation with urinalysis. The findings, conclusions and recommendations within this report do not replace the initial findings, conclusions and recommendations made at the facility where the study was performed based upon the imaging and clinical condition at that time. Comparison with the prior report and clinical history is necessary. The provided images may or may not represent the telida source data set and thus may contain changes that may lower the accuracy of this second-opinion interpretation. Dictated by: Mo Oreilly MD The radiology attending physician has personally reviewed this study, and had reviewed and/or edited this written report and agrees with it. Electronically signed by: Anastasia Braswell M.D. Narrative 02/20/2025 11:06 AM CDT EXAMINATION: RADIOLOGY CONSULTATION ON OUTSIDE IMAGING STUDY STUDY INITIALLY PERFORMED: 02/19/2025 at [facility]. TYPE OF STUDY: Multiple CT images of the abdomen and pelvis without intravenous contrast are provided at the time of this interpretation. CONTRAST ROUTE: Contrast was reportedly administered via a right forearm vein, with subsequent complete infiltration complicated by right arm compartment syndrome. This is a technically noncontrast exam. The protocol was adequate to address the clinical question. The outside final report was not available at the time of this second opinion interpretation. TYPE OF CONSULTATION: Consult on outside imaging study with images submitted through Outside Image Sharing Service DATE OF CONSULTATION: 02/19/2025 9:07 PM HISTORY: History of nephrolithiasis, presenting with one day of right-sided flank pain. COMPARISON: None available. FINDINGS: The imaged lower thorax demonstrates no pleural effusion. No basilar consolidation. Normal heart size. No pericardial effusion. Tiny hypoattenuating right liver lesion is too small to fully characterize. Cholecystectomy changes. No biliary ductal dilatation. Normal spleen, pancreas, and adrenal glands. Normal right kidney. There are 2 nonobstructing left renal calculi measuring up to 5 mm in the lower renal pole. There is mild left urothelial thickening in the renal pelvis and proximal ureter which may be reactive. Normal urinary bladder. Uterus is present. Ovarian follicles are present. No suspicious adnexal mass. High density material in the liver may represent ingested contents. Normal proximal duodenum. The appendix is not visualized, reportedly surgically absent. Normal caliber small and large bowel without evidence of obstruction. No free pelvic fluid or intraperitoneal free air. Normal caliber abdominal aorta with scattered atherosclerotic calcifications. No abdominal or pelvic lymphadenopathy. Mild degenerative changes of the imaged spine. No suspicious osseous lesion. Procedure Note Anastasia Braswell MD - 02/20/2025 EXAMINATION: RADIOLOGY CONSULTATION ON OUTSIDE IMAGING STUDY STUDY INITIALLY PERFORMED: 02/19/2025 at [facility]. TYPE OF STUDY: Multiple CT images of the abdomen and pelvis without intravenous contrast are provided at the time of this interpretation. CONTRAST ROUTE: Contrast was reportedly administered via a right forearm vein, with subsequent complete infiltration complicated by right arm compartment syndrome. This is a technically noncontrast exam. The protocol was adequate to address the clinical question. The outside final report was not available at the time of this second opinion interpretation. TYPE OF CONSULTATION: Consult on outside imaging study with images submitted through Outside Image Sharing Service DATE OF CONSULTATION: 02/19/2025 9:07 PM HISTORY: History of nephrolithiasis, presenting with one day of right-sided flank pain. COMPARISON: None available. FINDINGS: The imaged lower thorax demonstrates no pleural effusion. No basilar consolidation. Normal heart size. No pericardial effusion. Tiny hypoattenuating right liver lesion is too small to fully characterize. Cholecystectomy changes. No biliary ductal dilatation. Normal spleen, pancreas, and adrenal glands. Normal right kidney. There are 2 nonobstructing left renal calculi measuring up to 5 mm in the lower renal pole. There is mild left urothelial thickening in the renal pelvis and proximal ureter which may be reactive. Normal urinary bladder. Uterus is present. Ovarian follicles are present. No suspicious adnexal mass. High density material in the liver may represent ingested contents. Normal proximal duodenum. The appendix is not visualized, reportedly surgically absent. Normal caliber small and large bowel without evidence of obstruction. No free pelvic fluid or intraperitoneal free air. Normal caliber abdominal aorta with scattered atherosclerotic calcifications. No abdominal or pelvic lymphadenopathy. Mild degenerative changes of the imaged spine. No suspicious osseous lesion. IMPRESSION: 1. Two left renal calculi measuring up to 5 mm without hydronephrosis with associated urothelial thickening, likely reactive to a recently passed stone. If findings are concerning for a infectious process, recommend correlation with urinalysis. The findings, conclusions and recommendations within this report do not replace the initial findings, conclusions and recommendations made at the facility where the study was performed based upon the imaging and clinical condition at that time. Comparison with the prior report and clinical history is necessary. The provided images may or may not represent the telida source data set and thus may contain changes that may lower the accuracy of this second-opinion interpretation. Dictated by: Mo Oreilly MD The radiology attending physician has personally reviewed this study, and had reviewed and/or edited this written report and agrees with it. Electronically signed by: Anastasia Braswell M.D. us Lauren Haro MD IMG CT PROCEDURES Final Result * [place] CRITICAL CARE ILL/INJURED PATIENT INIT 30-74 MIN (02/19/2025 8:35 PM CDT) Narrative Magalie Archibald MD - 02/19/2025 8:35 PM CDT Magalie Archibald MD 02/19/2025 11:18 PM Critical Care Performed by: Magalie Archibald MD Authorized by: Magalie Archibald MD Critical care provider statement: As reflected in the history, physical exam, orders, notes, and/or MDM, I was personally present while the patient was critically ill and provided critical care services for 32 minutes, excluding time involved in separately billable procedures. Critical care was necessary to treat or prevent imminent or life-threatening deterioration of the following condition(s): Compartment syndrome Critical care was time spent by me providing the following: serial bedside patient exams Pain control Prep for OR I provided emergent necessary critical care medicine services to this patient. I ordered and reviewed test results and/or imaging studies. I spent time discussing the management of this critically ill patient with consultants and the medical staff. I spent time discussing the management and therapeutic options for this critically ill patient with the patient themselves or with the appropriate designated surrogate decision-maker. I spent time documenting in the medical record. us Magalie Archibald MD IN CLINIC/BEDSIDE ORD ERABLES Final Result * eGFR (02/19/2025 8:20 PM CDT) eGFR >90 >=60 mL/min/1. 73 m2 Comment: Interpretive Data Reference Interval Normal >/= 90 mL/min/1.73m2 Mildly decreased* 60 - 89 mL/min/1.73m2 Mildly to moderately decreased 45 - 59 mL/min/1.73m2 Moderately to severely decreased 30 - 44 mL/min/1.73m2 Severely decreased 15 - 29 mL/min/1.73m2 Kidney Failure < 15 mL/min/1.73m2 *Relative to young adult level Estimated glomerular filtration rate is determined by the 2020 CKD-EPI equation recommended by the National Kidney [employer] (A Unifying Approach to GFR Estimation: Recommendations of the NKF-ASK Task Force on Reassessing the Inclusion of Race in Diagnosing Kidney Disease, JASN 2020). The CKD-EPI equation should not be used for patients with unstable renal function and has not been validated in children and those over 70. Current interpretive data was last reviewed 2021. Blood 02/19/2025 8:20 PM CDT 02/19/2025 8:35 PM CDT Lauren Haro MD LAB BLOOD ORDERABLES nal Result [facility] Department [place] [address] * (ABNORMAL) Differential, auto (02/19/2025 8:20 PM CDT) Neutrophil abs 27.04(H) 1.50 - 6.50 K/cumm Imm gran abs 0.24(H) 0.00 - 0.10 K/cumm [facility] Lymphocyte abs 2.60 0.80 - 3.30 K/cumm [facility] Monocyte abs 1.73(H) 0.20 - 0.80 K/cumm [facility] Eosinophil abs 0.03 0.00 - 0.50 K/cumm [facility] Basophil abs 0.11(H) 0.00 - 0.10 K/cumm [facility] Neutrophil pct 85.2 % [facility] Comment: Interpretive Data Percent cell count reference ranges are not reported, since discordance with absolute values may lead to misinterpretation of CBC data. Current Interpretive Data was last revised on 2018. Imm gran pct 0.8 % [facility] Comment: Interpretive Data Percent cell count reference ranges are not reported, since discordance with absolute values may lead to misinterpretation of CBC data. Current Interpretive Data was last revised on 2018. Lymphocyte pct 8.2 % [facility] Comment: Interpretive Data Percent cell count reference ranges are not reported, since discordance with absolute values may lead to misinterpretation of CBC data. Current Interpretive Data was last revised on 2018. Monocyte pct 5.4 % [facility] Comment: Interpretive Data Percent cell count reference ranges are not reported, since discordance with absolute values may lead to misinterpretation of CBC data. Current Interpretive Data was last revised on 2018. Eosinophil pct 0.1 % [facility] Comment: Interpretive Data Percent cell count reference ranges are not reported, since discordance with absolute values may lead to misinterpretation of CBC data. Current Interpretive Data was last revised on 2018. Basophil pct 0.3 % [facility] Comment: Interpretive Data Percent cell count reference ranges are not reported, since discordance with absolute values may lead to misinterpretation of CBC data. Current Interpretive Data was last revised on 2018. Blood 02/19/2025 8:20 PM CDT 02/19/2025 8:36 PM CDT us Lauren Haro MD LAB BLOOD ORDERABLES Fi nal Result [facility] Department [place] [address] * (ABNORMAL) CBC with auto differential (02/19/2025 8:20 PM CDT) WBC 31.75(H) 3.80 - 9.90 K/cumm Hgb 15.1 11.9 - 15.5 g/dL [facility] Hct 44.4 35.6 - 45.5 % [facility] Plt 339 150 - 400 K/cumm [facility] MPV 9.3 9.1 - 12.3 fL [facility] RBC 4.92 3.90 - 5.20 M/cumm [facility] MCV 90.2 81.3 - 96.4 fL [facility] MCH 30.7 27.1 - 33.3 pg [facility] MCHC 34.0 32.3 - 35.7 g/dL [facility] RDW CV 14.5 11.1 - 14.9 % [facility] RDW SD 47.8 35.7 - 48.1 fL [facility] NRBC abs 0.00 0.00 - 0.01 K/cumm [facility] Blood 02/19/2025 8:20 PM CDT 02/19/2025 8:36 PM CDT Lauren Haro MD LAB BLOOD ORDERABLES Fi nal Result Performing Organization Address [facility] de Phone Number [facility] [place] [address] * aPTT (02/19/2025 8:20 PM CDT) aPTT 28 28 - 38 sec Comment: Interpretive Data Heparin therapeutic range: 66.0 - 100.0 seconds. Range based on correlation with therapeutic heparin activity range of 0.3 - 0.7 Units/mL. Current interpretive data was last revised on 2023. Blood 02/19/2025 8:20 PM CDT 02/19/2025 8:39 PM CDT Lauren Haro MD LAB BLOOD ORDERABLES Fi nal Result Performing Organization Address [facility] Co de Phone Number [facility] [place] [address] * Protime-INR (02/19/2025 8:20 PM CDT) PT 11.8 9.7 - 13.0 sec INR 1.09 0.90 - 1.20 [facility] Comment: Interpretive data Oral anticoagulant therapeutic ranges: Venous thromboembolism prophylaxis or treatment: 2.0-3.0 CARDIOLOGY Standard range: 2.0-3.0 High-intensity range: 2.5-3.5 Refer to indication-specific guidelines for appropriate target ranges for prosthetic heart valve replacement. Current interpretive data was last revised on 2019. Blood 02/19/2025 8:20 PM CDT 02/19/2025 8:39 PM CDT Lauren Haro MD LAB BLOOD ORDERABLES Fi nal Result Performing Organization Address [facility] Co de Phone Number [facility] [place] [address] * Type and screen (02/19/2025 8:20 PM CDT) Pathologist [facility] [place], indirect Negative ABO Rh A Positive [facility] Blood 02/19/2025 8:20 PM CDT 02/19/2025 8:33 PM CDT Narrative [facility] - 02/19/2025 9:26 PM CDT Has the patient had Daratumumab or Isatuximab in the past 6 months?->Unknown Lauren Haro MD LAB BLOOD BANK TEST ORD ERABLES Final Result Performing Organization Address [facility] de Phone Number [facility] [place] [address] * Creatine kinase (CK), total (02/19/2025 8:20 PM CDT) Pathologist [facility] CK 61 30 - 200 Units/L Comment:Hemolyzed; result ma y be falsely elevated Blood 02/19/2025 8:20 PM CDT 02/19/2025 8:35 PM CDT Magalie Archibald MD LAB BLOOD ORDERABLES Final Result Performing Organization Address [facility] Co de Phone Number [facility] Department [place] [address] * (ABNORMAL) Comprehensive metabolic panel (02/19/2025 8:20 PM CDT) Sodium 138 135 - 145 mmol/L Potassium, pl 4.4 3.3 - 4.9 mmol/L [facility] Comment:Hemolyzed; Potassium value may be falsely elevated by as much as 0.6-1.0 mmol/L. Suggest redraw and reanalysis. Chloride 102 97 - 110 mmol/L [facility] CO2 22 22 - 32 mmol/L [facility] Anion gap 14 2 - 15 mmol/L [facility] BUN 9 6 - 25 mg/dL [facility] Creatinine 0.69 0.60 - 1.10 mg/dL [facility] Glucose 137 70 - 199 mg/dL [facility] Comment: Interpretive Data Fasting glucose >/= 126 mg/dl is diagnostic for diabetes. Fasting is defined as no caloric intake for at least 8 hours. Fasting glucose between 100 mg/dl to 125 mg/dl is diagnostic of prediabetes. In a patient with classic symptoms of hyperglycemia or hyperglycemic crisis, a random glucose >/= 200 mg/dl is diagnostic for diabetes. In the absence of unequivocal hyperglycemia, results should be confirmed by repeat testing. The classification and Diagnosis of Diabetes Diabetes Care 202; 46: S19-S40. Current interpretive data was last revised 2022. Calcium 9.1 8.5 - 10.3 mg/dL [facility] Bilirubin, total 0.4 0.1 - 1.2 mg/dL [facility] Protein, pl 7.9 6.5 - 8.5 g/dL [facility] Albumin 4.2 3.5 - 5.0 g/dL [facility] Alk phos 85 40 - 130 Units/L [facility] ALT 32 7 - 45 Units/L [facility] AST 47(H) 10 - 45 Units/L [facility] Comment:Hemolyzed; result ma y be falsely elevated Blood 02/19/2025 8:20 PM CDT 02/19/2025 8:35 PM CDT Lauren Haro MD LAB BLOOD ORDERABLES Fi nal Result [facility] Department [place] [address] from Last 3 Months Insurance [employer] Advance Directives For more information, please contact: [phone] * Full Code (Latest Code Status on File) Date Activated Date Inactivated Comments 02/20/2025 12:42 AM 02/27/2025 1:57 PM Care Teams Design Engineering Intern Relationship Specialty Start Date End Date Cody Roper DO [address] [place] [address] PCP - General Family Medicine 07/02/19 David Bell MD [address] [place] [address] Medical Oncologist/Beef Cattle Farm Worker Hematology and Oncology 06/11/20
--- OUTSIDE RECORDS SUMMARY | 2025-03-09 16:19 | XMS_ITS | Encounter Summary ---
Author Organization [facility] Healthcare Address [address] [place] [address] Care Team Providers Care Ladle Filler Name Role Phone Cody Roper DO Primary Care Provider David Bell MD Unavailable [phone] Encounter Details Date Type Department Care Team (Late st Contact Info) Description 01/12/2023 Telephone [facility] [address] [place] [address] [place] [id number] [address] Social History Tobacco Use Types Packs/Day Years [...] on filedocumented in this encounter Care Teams Ladle Filler Relationship Specialty Start Date End Date Cody Roper DO [address] [place] [address] PCP - General Family Medicine 07/02/19 David Bell MD [address] [place] [address] Medical Oncologist/Banquet Steward Hematology and Oncology 06/11/20 documented as of this encounter
--- OUTSIDE RECORDS SUMMARY | 2025-03-09 16:19 | XMS_ITS | Clinical Summary ---
Author Organization 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 Gender Identity Not on file Sexual Orientation Not on file Plan of Treatment Health Maintenance Due Date Last Done Comments Pre-Diabetes and Diabetes Screening 1979 DTAP/TDAP/TD VACCINES (1 - Tdap) 1998 HEPATITIS B VACCINES (1 of 3 - 19+ 3-dose series) 1998 HPV/Cotest (21-29) 2000 CERVICAL CANCER SCREENING 2009 HPV/Cotest (30-65) 2009 PAP SMEAR 2009 BREAST CANCER SCREENING 12/07/2022 12/07/19, 12/07/2021, 10/15/2019, Additional history exists INFLUENZA VACCINE (#1) 2024 COLORECTAL SCREENING 2024 Colorectal Cancer Screening 2024 FIT-DNA Q 3 years 2024 FIT/FOBT Q 1 year 2024 Flex Sig/CT Colonography Q 5 years 2024 HPV VACCINES Aged Out No longer eligi ble based on patient's age to complete this topic Insurance [facility] [employer] CHOICE
--- OUTSIDE RECORDS SUMMARY | 2025-03-09 16:19 | XMS_ITS | Clinical Summary ---
Author Organization [facility] Address [address] [place] [address] Care Team Providers Care Map And Chart Mounter Name Role Phone Cody Roper DO Primary Care Provider David Bell MD Unavailable [phone] Allergies No known active allergies Medications [...] mg 3 (three) times a day 11 05/24/20 19 Active cetirizine (ZyrTEC) 10 mg [...] PUFF BY MOUTH TWICE A DAY 08/03/20 Active hydrocortisone (ANUSOL-HC) 2.5 % rectal cream 10/17/20 Active nabumetone (RELAFEN) 750 mg tablet Take 750 mg by mouth 2 (two) times a day 09/02/20 22 Active diazePAM (VALIUM) 10 mg tabletIndications :Sedation,anxiety Take 1 tablet 1 hour before procedure. 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 02/26/2025 8:15 AM CDT Anesthesia Event [facility] Operating [facility] [address] [place] [address] Brandon Reyes MD 02/26/2025 8:00 AM CDT - 02/26/2025 10:00 AM CDT Surgery [facility] Operating Room [facility] [address] [place] [address] Lexis Renteria MD RIGHT FOREARM SECONDARY CLOSURE OF SURGICAL WOUND 02/25/2025 Telephone [facility] Surgery [address] [facility] 6th [place] [address] Shweta Perry RN 02/19/2025 9:35 PM CDT - 02/19/2025 11:35 PM CDT Surgery [facility] Operating Room [address] [place] [address] Lexis Renteria MD FASCIOTOMY 02/19/2025 9:10 PM CDT Anesthesia Event [facility] Operating Room [address] [place] [address] Palomo Jaramillo MD Bharadwaj, Archana Dhatreecharan, MD 02/19/2025 8:03 PM CDT - 02/27/2025 9:51 AM CDT Hospital Encounter [address] [phone] Magalie Archibald MD Currie, Kelly Bettina, MD 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 Never 02/25/2025 Do you belong to any clubs o r organizations such as samaritan groups, unions, fraternal or athletic groups, or [...] any time in the past 12 m [facility], were you homeless or living in a long-term (including now)? No 02/25/2025 Personal Safety Answer [...] 02/20/2025 12:50 AM CDT Plan of Treatment Health Maintenance Due Date Last Done Comments Breast Cancer Screening-Mammogram 1979 Cervical Cancer Screening 1979 Colon Cancer Screening-Colonoscopy 1979 Hepatitis C Screening 1979 DTaP/Tdap/Td Vaccine (1 - Tdap) 1990 Hepatitis B Screening 1997 Regular Well Visit/Exam 18-64 1997 Pneumococcal vaccine <65 (1 of 2 - PCV) 1998 Covid-19 Vaccine (2 - 2023-2 5 season) 2024 06/14/2021 Influenza Vaccine (Season Ended) 2025 Depression Screening 02/19/2026 02/19/2025 HPV Vaccines Aged Out No longer eligi [...] PATHOGEN PANEL Routine 02/20/2025 10:39 AM CDT CO AN PROCEDURE PLACEHOLDER Routine 02/19/2025 9:34 PM CDT CO AN EMERGENT ENDOTRACHEAL AIRWAY Routine 02/19/2025 9:34 PM CDT RELEASE MEDIAN NERVE 02/19/2025 9:17 PM CDT 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 Case Notes Imtiaz [phone] @ 2032 RELEASE GUYONS CANAL 02/19/2025 9:17 PM CDT 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 Case Notes [facility] [phone] @ 2032 RELEASE CARPAL TUNNEL 02/19/2025 9:17 PM CDT 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 Case Notes [facility] [phone] @ 2032 FASCIOTOMY 02/19/2025 9:17 PM CDT 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 Case Notes Im[facility] [phone] @ 2032 POCT HCG, URINE Routine 02/19/2025 9:10 PM CDT URINALYSIS, MICROSCOPIC ONLY STAT 02/19/2025 9:09 PM CDT URINALYSIS AND REFLEX TO MICROSCOPIC AND CULTURE STAT 02/19/2025 9:09 PM CDT B CHECK SAMPLE STAT 02/19/2025 9:[address] BODY OUTSIDE CONSULT Routine 02/19/2025 8:43 PM CDT CO CRITICAL CARE ILL/INJURED PATIENT INIT 30-74 MIN [...] * POCT glucose (02/26/2025 9:34 AM CDT) Glucose, POC 130 70 - 199 mg/dL Blood 02/26/2025 9:34 AM CDT 02/26/2025 9:34 AM CDT Lexis Renteria MD LAB POCT ORDERABLES - DE VICE Final Result Performing Organization Address [facility] Co de Phone Number [facility] Department of [employer] [place] [place] [address] * Airway (02/26/2025 8:31 AM CDT) Narrative [...] with: silk tape Number of attempts: 1 us Brandon Reyes MD ANESTHESIA ORDERABLES F inal Result * POCT glucose (02/26/2025 7:53 AM CDT) Glucose, POC 107 70 - 199 mg/dL Blood 02/26/2025 7:53 AM CDT 02/26/2025 7:53 AM CDT us Lexis Renteria MD LAB POCT ORDERABLES - DE VICE Final Result Performing Organization Address [facility] Co de Phone Number MARIBELL [facility] Department of [employer] [place] [place] [address] * Type and screen (02/26/2025 7:47 AM CDT) ABO Rh A Positive Ashely, indirect Negative [facility] Blood 02/26/2025 7:47 AM CDT 02/26/2025 8:09 AM CDT Narrative MARIBELL SOL[facility] - 02/26/2025 9:00 AM CDT Has the patient had Daratumumab or Isatuximab in the past 6 months?->Unknown us Brandon Reyes MD LAB BLOOD BANK TEST ORD ERABLES Final Result Performing Organization Address City/[facility]/ZIP Co de Phone Number [facility] Department [place] [address] * eGFR (02/25/2025 9:31 PM CDT) eGFR >90 >=60 mL/min/1. 73 [...] ORDERABLES Fin al Result Performing Organization Address City/[facility]/ZIP Co de Phone Number [facility] Department [place] [address] * (ABNORMAL) CBC without differential (02/25/2025 9:31 PM CDT) [facility] WBC 14.05(H) 3.80 - 9.90 K/cumm Hgb 13.5 11.9 - 15.5 g/dL [facility] Hct 41.7 35.6 - 45.5 % [facility] Plt 286 150 - 400 K/cumm [facility] MPV 9.5 9.1 - 12.3 fL [facility] RBC 4.50 3.90 - 5.20 M/cumm [facility] MCV 92.7 81.3 - 96.4 fL [facility] MCH 30.0 27.1 - 33.3 pg [facility] MCHC 32.4 32.3 - 35.7 g/dL [facility] RDW CV 14.4 11.1 - 14.9 % [facility] RDW SD 48.6(H) 35.7 - 48.1 fL [facility] NRBC abs 0.00 0.00 - 0.01 K/cumm [facility] Blood 02/25/2025 9:31 PM CDT 02/25/2025 10:13 PM CDT us Lexis Renteria MD LAB BLOOD ORDERABLES Fin al Result [facility] Department [place] [address] * Basic metabolic panel (02/25/2025 9:31 PM CDT) [facility] Sodium 139 135 - 145 mmol/L Potassium, pl 4.3 3.3 - 4.9 mmol/L [facility] Chloride 103 97 - 110 mmol/L [facility] CO2 26 22 - 32 mmol/L [facility] Anion gap 10 2 - 15 mmol/L [facility] BUN 12 6 - 25 mg/dL [facility] Creatinine 0.69 0.60 - 1.10 mg/dL [facility] Glucose 133 70 - 199 mg/dL [facility] Comment: Interpretive Data Fasting glucose >/= 126 [...] 2022. Calcium 9.1 8.5 - 10.3 mg/dL [facility] Blood 02/25/2025 9:31 PM CDT 02/25/2025 10:12 PM CDT Lexis Renteria MD LAB BLOOD ORDERABLES Fin al Result Performing Organization Address [facility] de Phone Number [facility] [place] [address] * (ABNORMAL) Hemoglobin A1c (02/24/2025 9:50 AM CDT) Hgb A1C 6.3(H) 4.0 - 5.6 % Estimated Average Glucose 134 mg/dL [facility] Comment: The ADA recommends reporting an estimated Average Glucose (eAG) with all Hemoglobin A1c results using the equation derived from a study of 507 normal and diabetic adults. Minority populations were underrepresented and children were not included. (Diabetes Care 2020; 43(S1): S66-S76). The eAG is not equivalent to a fasting glucose. Blood 02/24/2025 9:50 AM CDT 02/24/2025 10:05 AM CDT us Kindra Sibley NP LAB BLOOD ORDERABLES Fin al Result Performing Organization Address [facility] de Phone Number [facility] [employer] [place] [address] * eGFR (02/21/2025 8:58 AM CDT) [facility] eGFR >90 >=60 mL/min/1. 73 m2 Comment: [...] MD LAB BLOOD ORDERABLES Fin al Result [facility] Department [place] [address] * (ABNORMAL) CBC without differential (02/21/2025 8:58 AM CDT) [facility] WBC 17.70(H) 3.80 - 9.90 K/cumm Hgb 13.5 11.9 - 15.5 g/dL [facility] Hct 40.8 35.6 - 45.5 % [facility] Plt 267 150 - 400 K/cumm [facility] MPV 9.4 9.1 - 12.3 fL [facility] RBC 4.49 3.90 - 5.20 M/cumm [facility] MCV 90.9 81.3 - 96.4 fL [facility] MCH 30.1 27.1 - 33.3 pg [facility] MCHC 33.1 32.3 - 35.7 g/dL [facility] RDW CV 14.6 11.1 - 14.9 % [facility] RDW SD 48.9(H) 35.7 - 48.1 fL [facility] NRBC abs 0.00 0.00 - 0.01 K/cumm [facility] Blood 02/21/2025 8:58 AM CDT 02/21/2025 9:11 AM CDT us Lexis Renteria MD LAB BLOOD ORDERABLES Fin al Result [facility] Department [place] [address] * (ABNORMAL) Basic metabolic panel (02/21/2025 8:58 AM CDT) Sodium 138 135 - 145 mmol/L Potassium, pl 3.5 3.3 - 4.9 mmol/L [facility] Chloride 102 97 - 110 mmol/L [facility] CO2 26 22 - 32 mmol/L [facility] Anion gap 10 2 - 15 mmol/L [facility] BUN 9 6 - 25 mg/dL [facility] Creatinine 0.70 0.60 - 1.10 mg/dL [facility] Glucose 240(H) 70 - 199 mg/dL [facility] Comment: Interpretive Data Fasting glucose >/= 126 [...] 2022. Calcium 9.0 8.5 - 10.3 mg/dL [facility] Blood 02/21/2025 8:58 AM CDT 02/21/2025 9:11 AM CDT us Lexis Renteria MD LAB BLOOD ORDERABLES Fin al Result [facility] Department [place] [address] * XR Chest 1 View (02/20/2025 1:55 [...] it. Electronically signed by: Jairo Claire M.D. us Nathalei Rodriguez CASTING MACHINE OPERATOR AUTOMATIC IMG XR PROCEDURES Final Resu lt * Respiratory pathogen panel Nasopharyngeal (02/20/2025 10:39 AM CDT) Influenza A RNA Not Detected Not Detected Influenza B RNA Not Detected Not Detected [facility] RSV RNA Not Detected Not Detected [facility] COVID-19 RNA Not Detected Not Detected [facility] Coronavirus 229E RNA Not Detected Not Detected [facility] Coronavirus HKU1 RNA Not Detected Not Detected [facility] Coronavirus NL63 RNA Not Detected Not Detected [facility] Coronavirus OC43 RNA Not Detected Not Detected [facility] Adenovirus DNA Not Detected Not Detected [facility] Metapneumovirus RNA Not Detected Not Detected [facility] Rhinovirus/Enterov irus RNA Not Detected Not Detected [facility] Parainfluenza 1 RNA Not Detected Not Detected [facility] Parainfluenza 2 RNA Not Detected Not Detected [facility] Parainfluenza 3 RNA Not Detected Not Detected [facility] Parainfluenza 4 RNA Not Detected Not Detected [facility] B. pertussis DNA Not Detected Not Detected [facility] B. parapertussis DNA Not Detected Not Detected [facility] C. pneumoniae DNA Not Detected Not Detected [facility] M. pneumoniae DNA Not Detected Not Detected [facility] Nasopharyngeal 02/20/2025 10 :39 AM CDT 02/20/2025 10:52 AM CDT Narrative [facility] - 02/20/2025 11:59 AM CDT Is the Patient experiencing symptoms consistent with COVID?->No Surveillance testing for transplant patient?->No Interpretive Data The [employer] FilmArray Respiratory Panel (RP2.1) assay is a [...] assay has FDA clearance for testing of CASTING MACHINE OPERATOR AUTOMATIC swabs. The performance of additional specimen types has been assessed by the performing laboratory. The performance characteristics of this assay have been determined by [facility]. Current interpretive data was last revised on 22. Nathalie Rodriguez CASTING MACHINE OPERATOR AUTOMATIC LAB MICROBIOLOGY - GENERAL O RDERABLES Final Result [facility] Department [place] [address] * CO AN EMERGENT ENDOTRACHEAL AIRWAY, CO AN PROCEDURE PLACEHOLDER (02/19/2025 9:34 PM CDT) Narrative Tory Lazaro CRNA - 02/19/2025 9:34 PM CDT Tory Lazaro CRNA 02/19/2025 9:34 PM Airway Patient location: OR Urgency: emergent Indications for airway management: anesthesia Difficult airway: no Staff: Placed by: EDUCATION TRAINER: Tory Lazaro CRNA Emergent airway documentation: Patient [...] of attempts: 1 Ventilation between attempts: BVM Palomo Jaramillo MD ANESTHESIA ORDERABLES Final Result * POCT hCG, urine (02/19/2025 9:10 PM CDT) HCG, ur, POC Negative Negative Lot Number [id number] QC Backgroud Clear Acceptable QC Control Line Acceptable Urine 02/19/2025 9:10 PM CDT Lauren Haro MD POINT OF CARE TEST MURPHY BOYCE Final Result * (ABNORMAL) Urinalysis reflex to microscopic and culture Urine, clean voided (02/19/2025 9:09 PM CDT) Color, ur Straw Yellow Clarity, ur Clear Clear [facility] Specific gravity, ur >1.042(H) 1.003 - 1.030 [facility] pH, urine 6.5 [facility] Comment: Interpretive Data U rine pH is affected by diet, medications, systemic acid-base disturbances, and renal tubular function. pH may affect urinary stone formation. For example, urine pH below 6.0 may help reduce the tendency for calcium phosphate stones and pH greater than 6.0 may reduce the tendency for uric acid stone formation. Source: [employer] Current Interpretive Data was last revised on 2017 Protein, ur ql 1+(A) Negative [facility] Glucose, ur ql Negative Negative [facility] Ketones, ur Trace Negative [facility] Bilirubin, ur Negative Negative [facility] Blood, ur 2+(A) Negative [facility] Urobilinogen, ur <2.0 <2.0 mg/dL [facility] Nitrite, ur Negative Negative [facility] Leukocyte esterase, ur Trace(A) Negative [facility] UA reflex comment Reflex to microscopic UA will be performed. [facility] Urine, clean voided 02/19/2025 9:09 PM CDT 02/19/2025 9:24 PM CDT Lauren Haro MD LAB MICROBIOLOGY - GENE RAL ORDERABLES Final Result Performing Organization Address [facility] de Phone Number [facility] Department [place] [address] * (ABNORMAL) Urinalysis, microscopic only (02/19/2025 9:09 PM CDT) WBC, ur 6-10(A) 0 - 5 /HPF RBC, ur 6-10(A) 0 - 2 /HPF [facility] Epithelial cells, squamous, ur 6-10(A) 0 - 5 /HPF [facility] Comment:Suggestive of contam ination. Consider recollection by clean catch. Mucous, ur Present(A) [facility] Culture Reflex Comment Reflex conditions for urine culture (WBC >10) not met. [facility] Urine, clean voided 02/19/2025 9:09 PM CDT 02/19/2025 9:24 PM CDT Lauren Haro MD LAB URINE ORDERABLES Fi nal Result Performing Organization Address [facility] Co de Phone Number [facility] Department of [employer] [place] [address] * Check Sample (02/19/2025 9:01 PM CDT) ABO Rh A Positive [facility] HCLL OTHER 02/19/2025 9:0 1 PM CDT 02/19/2025 9:10 PM CDT Magalie Archibald MD LAB BLOOD ORDERABLES Final Result [facility] Department [place] [address] [facility] * CT Body Outside Consult (02/19/2025 8:43 [...] images may or may not represent the lower brule source data set and thus may contain [...] STUDY STUDY INITIALLY PERFORMED: 02/19/2025 at [facility]. TYPE OF STUDY: Multiple CT [...] STUDY STUDY INITIALLY PERFORMED: 02/19/2025 at [facility]. TYPE OF STUDY: Multiple CT [...] images may or may not represent the lower brule source data set and thus may contain changes that may lower the accuracy of this second-opinion interpretation. Dictated by: Mo Oreilly MD The radiology attending physician has personally reviewed this study, and had reviewed and/or edited this written report and agrees with it. Electronically signed by: Anastasia Braswell M.D. Lauren Haro MD IMG CT PROCEDURES Final Result * CO CRITICAL CARE ILL/INJURED PATIENT INIT 30-74 MIN [...] 8:20 PM CDT 02/19/2025 8:35 PM CDT us Lauren Haro MD LAB BLOOD ORDERABLES Fi nal Result [facility] Department [place] [address] * (ABNORMAL) Differential, auto (02/19/2025 8:20 PM CDT) Neutrophil abs 27.04(H) 1.50 - 6.50 K/cumm Imm gran abs 0.24(H) 0.00 - 0.10 K/cumm [facility] Lymphocyte abs 2.60 0.80 - 3.30 K/cumm [facility] Monocyte abs 1.73(H) 0.20 - 0.80 K/cumm [facility] Eosinophil abs 0.03 0.00 - 0.50 K/cumm [facility] Basophil abs 0.11(H) 0.00 - 0.10 K/cumm [facility] Neutrophil pct 85.2 % [facility] Comment: Interpretive Data Percent cell count reference ranges are not reported, since discordance with absolute values may lead to misinterpretation of CBC data. Current Interpretive Data was last revised on 2018. Imm gran pct 0.8 % [facility] Comment: Interpretive Data Percent cell count reference ranges are not reported, since discordance with absolute values may lead to misinterpretation of CBC data. Current Interpretive Data was last revised on 2018. Lymphocyte pct 8.2 % [facility] Comment: Interpretive Data Percent cell count reference ranges are not reported, since discordance with absolute values may lead to misinterpretation of CBC data. Current Interpretive Data was last revised on 2018. Monocyte pct 5.4 % [facility] Comment: Interpretive Data Percent cell count reference ranges are not reported, since discordance with absolute values may lead to misinterpretation of CBC data. Current Interpretive Data was last revised on 2018. Eosinophil pct 0.1 % [facility] Comment: Interpretive Data Percent cell count reference ranges are not reported, since discordance with absolute values may lead to misinterpretation of CBC data. Current Interpretive Data was last revised on 2018. Basophil pct 0.3 % [facility] Comment: Interpretive Data Percent cell count reference ranges are not reported, since discordance with absolute values may lead to misinterpretation of CBC data. Current Interpretive Data was last revised on 2018. Blood 02/19/2025 8:20 PM CDT 02/19/2025 8:36 PM CDT Lauren Haro MD LAB BLOOD ORDERABLES Fi nal Result Performing Organization Address City/[facility] Co de Phone Number [facility] [place] [address] * (ABNORMAL) CBC with auto differential (02/19/2025 8:20 PM CDT) [facility] WBC 31.75(H) 3.80 - 9.90 K/cumm Hgb 15.1 11.9 - 15.5 g/dL [facility] Hct 44.4 35.6 - 45.5 % [facility] Plt 339 150 - 400 K/cumm [facility] MPV 9.3 9.1 - 12.3 fL [facility] RBC 4.92 3.90 - 5.20 M/cumm [facility] MCV 90.2 81.3 - 96.4 fL [facility] MCH 30.7 27.1 - 33.3 pg [facility] MCHC 34.0 32.3 - 35.7 g/dL [facility] RDW CV 14.5 11.1 - 14.9 % [facility] RDW SD 47.8 35.7 - 48.1 fL [facility] NRBC abs 0.00 0.00 - 0.01 K/cumm [facility] Blood 02/19/2025 8:20 PM CDT 02/19/2025 8:36 PM CDT Lauren Haro MD LAB BLOOD ORDERABLES Fi nal Result Performing Organization Address [facility]/ZIP Co de Phone Number MARIBELL [facility] Department [place] [address] * aPTT (02/19/2025 8:20 PM CDT) Pathologist [facility] aPTT 28 28 - 38 sec Comment: Interpretive Data Heparin therapeutic range: 66.0 - 100.0 seconds. Range based on correlation with therapeutic heparin activity range of 0.3 - 0.7 Units/mL. Current interpretive data was last revised on 2023. Blood 02/19/2025 8:20 PM CDT 02/19/2025 8:39 PM CDT Lauren Haro MD LAB BLOOD ORDERABLES Fi nal Result Performing Organization Address [facility] de Phone Number [facility] [place] [address] * Protime-INR (02/19/2025 8:20 PM CDT) PT 11.8 9.7 - 13.0 sec INR 1.09 0.90 - 1.20 [facility] Comment: Interpretive data Oral anticoagulant therapeutic ranges: Venous thromboembolism prophylaxis or treatment: 2.0-3.0 CARDIOLOGY Standard range: 2.0-3.0 High-intensity range: 2.5-3.5 Refer to indication-specific guidelines for appropriate target ranges for prosthetic heart valve replacement. Current interpretive data was last revised on 2019. Blood 02/19/2025 8:20 PM CDT 02/19/2025 8:39 PM CDT Lauren Haro MD LAB BLOOD ORDERABLES Fi nal Result Performing Organization Address [facility] [place] [address] * Type and screen (02/19/2025 8:20 PM CDT) Ashely, indirect Negative ABO Rh A Positive [facility] Blood 02/19/2025 8:20 PM CDT 02/19/2025 8:33 PM CDT Narrative [facility] - 02/19/2025 9:26 PM CDT Has the patient had Daratumumab or Isatuximab in the past 6 months?->Unknown Lauren Haro MD LAB BLOOD BANK TEST ORD ERABLES Final Result Performing Organization Address City/[facility] Co de Phone Number [facility] Department [place] [address] * Creatine kinase (CK), total (02/19/2025 8:20 PM CDT) Pathologist [facility] CK 61 30 - 200 Units/L Comment:Hemolyzed; result ma y be falsely elevated Blood 02/19/2025 8:20 PM CDT 02/19/2025 8:35 PM CDT Magalie Archibald MD LAB BLOOD ORDERABLES Final Result Performing Organization Address [facility] de Phone Number [facility] Department [place] [address] * (ABNORMAL) Comprehensive metabolic panel (02/19/2025 8:20 PM CDT) [facility] Sodium 138 135 - 145 mmol/L Potassium, pl 4.4 3.3 - 4.9 mmol/L [facility] Comment:Hemolyzed; Potassium value may be falsely elevated by as much as 0.6-1.0 mmol/L. Suggest redraw and reanalysis. Chloride 102 97 - 110 mmol/L [facility] CO2 22 22 - 32 mmol/L [facility] Anion gap 14 2 - 15 mmol/L [facility] BUN 9 6 - 25 mg/dL [facility] Creatinine 0.69 0.60 - 1.10 mg/dL [facility] Glucose 137 70 - 199 mg/dL [facility] Comment: Interpretive Data Fasting glucose >/= 126 [...] Calcium 9.1 8.5 - 10.3 mg/dL [facility] Bilirubin, total 0.4 0.1 - 1.2 mg/dL [facility] Protein, pl 7.9 6.5 - 8.5 g/dL [facility] Albumin 4.2 3.5 - 5.0 g/dL [facility] Alk phos 85 40 - 130 Units/L [facility] ALT 32 7 - 45 Units/L [facility] AST 47(H) 10 - 45 Units/L [facility] Comment:Hemolyzed; result ma y be falsely elevated Blood 02/19/2025 8:20 PM CDT 02/19/2025 8:35 PM CDT Lauren Haro MD LAB BLOOD ORDERABLES Fi nal Result [facility] Department [place] [address] from Last 3 Months Insurance [facility] [employer] CHO[employer] ANTHEM ACCESS CHOICE Advance Directives For more information, please contact: [phone] * Full Code (Latest Code Status on File) Date Activated Date Inactivated Comments 02/20/2025 12:42 AM 02/27/2025 1:57 PM Care Teams Map And Chart Mounter Relationship Specialty Start Date End Date Cody Roper DO [address] [place] [address] PCP - General Family Medicine 07/02/19 David Bell MD [address] [place] [address] Medical Oncologist/Terminal Computer Operator Hematology and Oncology 06/11/20
== END 2025-03-09 14:21 | disposition home or self-care (01) ==
LOC: ANHLAB 14:22
PROVIDERS: Visit Provider Nurse Practitioner Family
DX: K58.0 Irritable bowel syndrome with diarrhea (principal)
CPT/HCPCS: 82653; 83993

== ENCOUNTER 2025-03-17 14:34 | Outpatient (CLI) | payer BC, SELFPAY ==
--- NOTE | ~2025-03-17 | XR_ITS ---
XR abdomen/kub 1V 03/17/2025 15:14 INDICATION: Renal stone TECHNIQUE: KUB COMPARISON: None FINDINGS: Bowel gas pattern is normal. There is no evidence of free air, mass, organomegaly, ascites or obstruction. No abnormal calculi are seen. Kidneys are obscured by bowel content, limiting evalu ation for renal stones. The bones appear intact. Moderate lumbar spondylosis. There are cholecystecto my clips. IMPRESSION: 1: No acute abdominal abnormality identified. Reviewed, dictated and finalized at location A.
--- OUTSIDE RECORDS SUMMARY | 2025-03-17 17:05 | XMS_ITS | Clinical Summary ---
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
--- OUTSIDE RECORDS SUMMARY | 2025-03-17 17:05 | XMS_ITS | Referral Summary ---
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) 03/12/2025 Orders Only [facility] Surgery [address] [place] [address] [place] [phone] Lexis Renteria MD 03/12/2025 Orders Only [facility] Surgery [address] [place] [address] [place] [phone] Karina Sharma RMA 03/04/2025 2:45 PM CDT Office Visit [facility] Surgery [address] [place] [address] 6th [place] [address] Josiane Oliveira NP 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 02/19/2025 8:03 PM CDT - 02/27/2025 9:51 AM CDT Hospital Encounter [address] [phone] Magalie Archibald MD Currie, Kelly Bettina, MD 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); Acute postoperative pain; Compartment syndrome of forearm Discharge Disposition: Discharge to home or self care 02/26/2025 8:00 AM CDT - 02/26/2025 10:00 AM CDT Surgery [facility] Operating Room [facility] ([facility]) [address] [place] [address] Lexis Renteria MD RIGHT FOREARM SECONDARY CLOSURE OF SURGICAL WOUND 02/26/2025 8:15 AM CDT Anesthesia Event [facility] ([facility]) [address] [place] [address] Brandon Reyes MD 02/25/2025 [facility] Surgery [address] [place] [address] [facility] 6th [place] [address] [place] [address] Shweta Perry RN 02/19/2025 9:10 PM CDT Anesthesia Event [facility] Operating Room [address] [place] [phone] Palomo Jaramillo MD Bharadwaj, Amy Robles MD 02/19/2025 9:35 PM CDT - 02/19/2025 11:35 PM CDT Surgery [facility] Operating Room [address] [place] [address] Lexis Renteria MD FASCIOTOMY from Last 3 Months Allergies No known active allergies Medications traZODone (DESYREL) 50 mg tablet Take 1 tablet (50 mg total) by mouth nightly at bedtime. 0 019 Active piroxicam (FELDENE) 20 mg capsule Take by mouth daily 3 Active montelukast (SINGULAIR) 10 mg tablet Take 1 tablet (10 mg total) by mouth every evening 3 Active metFORMIN XR (GLUCOPHAGE XR) 500 mg 24 hr tablet Take by mouth 2 (two) times a day with meals 11 Active DULERA 200-5 mcg/actuation inhaler TAKE 2 PUFFS BY MOUTH TWICE A DAY Active gabapentin (NEURONTIN) 300 mg capsule 2 capsules (600 mg total) 3 (three) times a day 11 Active cetirizine (ZyrTEC) 10 mg tablet Take 1 tablet (10 mg total) by mouth daily Active albuterol 2.5 mg /3 mL (0.083 %) nebulizer solution as needed Active busPIRone (BUSPAR) 10 mg tablet buspirone 10 mg tablet Active Viberzi 100 mg tablet 2 (two) times a day Active dicyclomine (BENTYL) 20 mg tablet Take 1 tablet (20 mg total) by mouth 3 (three) times a day as needed Active Advair Diskus 250-50 mcg/dose diskus inhaler TAKE 1 PUFF BY MOUTH TWICE A DAY Active hydrocortisone (ANUSOL-HC) 2.5 % rectal cream Active nabumetone (RELAFEN) 750 mg tablet Take 1 tablet (750 mg total) by mouth 2 (two) times a day Active diazePAM (VALIUM) 10 mg tabletIndications :Sedation,anxiety Take 1 tablet 1 hour before procedure. Will need driver/refuse collector to bring him. 2 tablet 023 Active acetaminophen 500 mg capsuleIndication s:Pain Take 2 capsules (1,000 mg total) by mouth every 6 (six) hours 30 tablet Active cyclobenzaprine (FLEXERIL) 5 mg tabletIndications :Muscle Spasm Take 1 tablet (5 mg total) by mouth 3 (three) times a day 30 tablet Active docusate sodium (COLACE) 100 mg capsuleIndication s:constipation Take 1 capsule (100 mg total) by mouth 2 (two) times a day for 7 days 14 capsule Active ondansetron ODT (ZOFRAN-ODT) 4 mg disintegrating tabletIndications :nausea and vomiting Take 1 tablet (4 mg total) by mouth every 6 (six) hours as needed for nausea or vomiting 20 tablet Active amitriptyline (ELAVIL) 10 mg tablet Take 1 tablet (10 mg total) by mouth nightly 30 tablet 025 2024 Active bacitracin 500 unit/gram ointment Apply topically 2 (two) times a day 113 g Active oxyCODONE (ROXICODONE) 10 mg tabletIndications :Pain Take 1 tablet (10 mg total) by mouth every 4 (four) hours as needed for pain 20 tablet Active gabapentin (NEURONTIN) 300 mg capsuleIndication s: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 Take 1 capsule (300 mg total) by mouth nightly 30 capsule 2024 Active sulfamethoxazole- trimethoprim (BACTRIM DS) 800-160 mg per tablet Take 2 tablets (320 mg of trimethoprim total) by mouth 2 (two) times a day for 7 days 28 tablet 2024 Active pregabalin (LYRICA) 75 mg capsule Take 1 capsule (75 mg total) by mouth 2 (two) times a day 60 capsule 2024 Active diclofenac sodium (VOLTAREN) 1 % gel Apply 2 g topically 4 (four) times a day 100 g Active HYDROcodone-aceta minophen (NORCO) 5-325 mg per tabletIndications :Pain Take 1 tablet by mouth every 6 (six) hours as needed for pain 15 tablet Active naloxone (NARCAN) 4 mg/actuation spray,non-aerosol Administer 1 spray into affected nostril(s) as needed for opioid reversal or respiratory depression Call 911. Administer a single spray in one nostril. Repeat every 3 minutes as needed if no or minimal response. 4 each Active HYDROcodone-aceta minophen (NORCO) 5-325 mg per tablet TAKE 1 TABLET BY MOUTH THREE TIMES A DAY NEEDED FOR PAIN 2024 Discontinued(S top Taking at Discharge) oxyCODONE (ROXICODONE) 5 mg immediate release tabletIndications :Pain Take 1 tablet (5 mg total) by mouth every 4 (four) hours as needed for pain 20 tablet 2024 Discontinued pregabalin (LYRICA) 75 mg capsule Take 1 capsule (75 mg total) by mouth 2 (two) times a day 60 capsule 2024 Discontinued(R eorder) oxyCODONE (ROXICODONE) 5 mg immediate release tabletIndications :Pain Take 2 tablets (10 mg total) by mouth every 4 (four) hours as needed for pain for up to 20 doses 40 tablet 025 2024 Discontinued(S top Taking at Discharge) Active [...] = 0.6 oz pur e alcohol) rare [employer] Answer Date Recorded In the past 12 months has [employer] electric, gas, oil, or water [employer] threatened to shut off services in your [...] 02/25/2025 How often do you attend chur ch or roman catholic services? Never 02/25/2025 Do you belong to any clubs o r organizations such as amish groups, unions, fraternal or athletic groups, or [...] time in the past 12 m [facility], were you homeless or living in a m[facility] (including now)? No 02/25/2025 Personal Safety Answer [...] of right upper extremity Case Notes Imtiaz [phone] @ 2032 RELEASE GUYONS CANAL 02/19/2025 9:17 PM CDT 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 Case Notes Imtiaz [phone] @ 2032 RELEASE CARPAL TUNNEL 02/19/2025 9:17 PM CDT 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 Case Notes Imtiaz [phone] @ 2032 FASCIOTOMY 02/19/2025 9:17 PM CDT 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 Case Notes Imtiaz [phone] @ 2032 POCT HCG, URINE Routine 02/19/2025 [...] POCT ORDERABLES - DE VICE Final Result [facility] [place] [address] * Airway (02/26/2025 8:31 AM CDT) Narrative [...] * POCT glucose (02/26/2025 7:53 AM CDT) [facility] Glucose, POC 107 70 - 199 mg/dL Blood 02/26/2025 7:53 AM CDT 02/26/2025 7:53 AM CDT Lexis Renteria MD LAB POCT ORDERABLES - DE VICE Final Result [facility] [place] [address] * Type and screen (02/26/2025 7:47 AM CDT) [facility] ABO Rh A Positive [place]he[place], indirect Negative [facility] Blood 02/26/2025 7:47 AM CDT 02/26/2025 8:09 AM CDT Narrative [facility] - 02/26/2025 9:00 AM CDT Has the patient had Daratumumab or Isatuximab in the past 6 months?->Unknown Brandon Reyes MD LAB BLOOD BANK TEST ORD ERABLES Final Result [facility] [place] [address] * eGFR (02/25/2025 9:31 PM CDT) [facility] eGFR >90 >=60 mL/min/1. 73 m2 Comment: [...] MD LAB BLOOD ORDERABLES Fin al Result [facility] [place] [address] * (ABNORMAL) CBC without differential (02/25/2025 9:31 PM CDT) WBC 14.05(H) 3.80 - 9.90 K/cumm Hgb 13.5 11.9 - 15.5 g/dL [facility] Hct 41.7 35.6 - 45.5 % [facility] Plt 286 150 - 400 K/cumm [facility] MPV 9.5 9.1 - 12.3 fL [facility] RBC 4.50 3.90 - 5.20 M/cumm [facility] MCV 92.7 81.3 - 96.4 fL [facility] MCH 30.0 27.1 - 33.3 pg [facility] MCHC 32.4 32.3 - 35.7 g/dL [facility] RDW CV 14.4 11.1 - 14.9 % [facility] RDW SD 48.6(H) 35.7 - 48.1 fL [facility] NRBC abs 0.00 0.00 - 0.01 K/cumm [facility] Blood 02/25/2025 9:31 PM CDT 02/25/2025 10:13 PM CDT Lexis Renteria MD LAB BLOOD ORDERABLES Fin al Result Performing Organization Address City/[facility] Co de Phone Number [facility] Department [place] [address] * Basic metabolic panel (02/25/2025 9:31 PM CDT) [facility] Sodium 139 135 - 145 mmol/L Potassium, pl 4.3 3.3 - 4.9 mmol/L [facility] Chloride 103 97 - 110 mmol/L [facility] CO2 26 22 - 32 mmol/L [facility] Anion gap 10 2 - 15 mmol/L [facility] BUN 12 6 - 25 mg/dL [facility] Creatinine 0.69 0.60 - 1.10 mg/dL [facility] Glucose 133 70 - 199 mg/dL [facility] Comment: Interpretive Data Fasting glucose >/= [...] 2022. Calcium 9.1 8.5 - 10.3 mg/dL [facility] Blood 02/25/2025 9:31 PM CDT 02/25/2025 10:12 PM CDT Lexis Renteria MD LAB BLOOD ORDERABLES Fin al Result Performing Organization Address [facility] Co de Phone Number [facility] Department [place] [address] * (ABNORMAL) Hemoglobin A1c (02/24/2025 9:50 AM CDT) Hgb A1C 6.3(H) 4.0 - 5.6 % Estimated Average Glucose 134 mg/dL [facility] Comment: The ADA recommends reporting an estimated [...] NP LAB BLOOD ORDERABLES Fin al Result [facility] [place] [address] * eGFR (02/21/2025 8:58 AM CDT) eGFR [...] of Race in Diagnosing Kidney Disease, JASN 202). The CKD-EPI equation should not be used for patients with unstable renal function and has not been validated in children and those over 70. Current interpretive data was last reviewed 2021. Blood 02/21/2025 8:58 AM CDT 02/21/2025 9:11 AM CDT us Lexis Renteria MD LAB BLOOD ORDERABLES Fin al Result Performing Organization Address [facility] Co de Phone Number [facility] [place] [address] * (ABNORMAL) CBC without differential (02/21/2025 8:58 AM CDT) [facility] WBC 17.70(H) 3.80 - 9.90 K/cumm Hgb 13.5 11.9 - 15.5 g/dL [facility] Hct 40.8 35.6 - 45.5 % [facility] Plt 267 150 - 400 K/cumm [facility] MPV 9.4 9.1 - 12.3 fL [facility] RBC 4.49 3.90 - 5.20 M/cumm [facility] MCV 90.9 81.3 - 96.4 fL [facility] MCH 30.1 27.1 - 33.3 pg [facility] MCHC 33.1 32.3 - 35.7 g/dL [facility] RDW CV 14.6 11.1 - 14.9 % [facility] RDW SD 48.9(H) 35.7 - 48.1 fL [facility] NRBC abs 0.00 0.00 - 0.01 K/cumm [facility] Blood 02/21/2025 8:58 AM CDT 02/21/2025 9:11 AM CDT us Lexis Renteria MD LAB BLOOD ORDERABLES Fin al Result Performing Organization Address [facility] Co de Phone Number [facility] Department [place] [address] * (ABNORMAL) Basic metabolic panel (02/21/2025 8:58 AM CDT) [facility] Sodium 138 135 - 145 mmol/L Potassium, pl 3.5 3.3 - 4.9 mmol/L [facility] Chloride 102 97 - 110 mmol/L [facility] CO2 26 22 - 32 mmol/L [facility] Anion gap 10 2 - 15 mmol/L [facility] BUN 9 6 - 25 mg/dL [facility] Creatinine 0.70 0.60 - 1.10 mg/dL [facility] Glucose 240(H) 70 - 199 mg/dL [facility] Comment: Interpretive Data Fasting glucose >/= [...] 2022. Calcium 9.0 8.5 - 10.3 mg/dL [facility] Blood 02/21/2025 8:58 AM CDT 02/21/2025 9:11 AM CDT Lexis Renteria MD LAB BLOOD ORDERABLES Fin al Result [facility] [place] [address] * XR Chest 1 View (02/20/2025 1:55 [...] signed by: Jairo Claire M.D. Nathalie Rodriguez HV[employer] JOURNEY[employer] IMG XR PROCEDURES Final Resu lt * Respiratory pathogen panel Nasopharyngeal (02/20/2025 10:39 AM CDT) Influenza A RNA Not Detected Not Detected Influenza B RNA Not Detected Not Detected [facility] RSV RNA Not Detected Not Detected [facility] COVID-19 RNA Not Detected Not Detected [facility] Coronavirus 229E RNA Not Detected Not Detected [facility] Coronavirus HKU1 RNA Not Detected Not Detected [facility] Coronavirus NL63 RNA Not Detected Not Detected [facility] Coronavirus OC43 RNA Not Detected Not Detected [facility] Adenovirus DNA Not Detected Not Detected [facility] Metapneumovirus RNA Not Detected Not Detected [facility] Rhinovirus/Enterov irus RNA Not Detected Not Detected [facility] Parainfluenza 1 RNA Not Detected Not Detected [facility] Parainfluenza 2 RNA Not Detected Not Detected [facility] Parainfluenza 3 RNA Not Detected Not Detected [facility] Parainfluenza 4 RNA Not Detected Not Detected [facility] B. pertussis DNA Not Detected Not Detected [facility] B. parapertussis DNA Not Detected Not Detected [facility] C. pneumoniae DNA Not Detected Not Detected [facility] M. pneumoniae DNA Not Detected Not Detected [facility] Nasopharyngeal 02/20/2025 10 :39 AM CDT 02/20/2025 10:52 AM CDT Narrative [facility] - 02/20/2025 11:59 AM CDT Is the Patient experiencing symptoms consistent with COVID?->No Surveillance testing for transplant patient?->No Interpretive Data The [facility] FilmArray Respiratory Panel (RP2.1) assay is a [...] assay has FDA clearance for testing of [employer]NEYMAN swabs. The performance of additional specimen types has been assessed by the performing laboratory. The performance characteristics of this assay have been determined by [facility] Molecular Infectious Disease Laboratory. Current interpretive data was last revised on 22. us Nathalie Rodriguez [employer] LAB MICROBIOLOGY - GENERAL O RDERABLES Final Result [facility] [place] [address] * CO AN EMERGENT ENDOTRACHEAL AIRWAY, CO AN PROCEDURE PLACEHOLDER (02/19/2025 9:34 PM CDT) Narrative Tory Lazaro CRNA - 02/19/2025 9:34 PM CDT Tory Lazaro CRNA 02/19/2025 9:34 PM Airway Patient location: OR Urgency: emergent Indications for airway management: anesthesia Difficult airway: no Staff: Placed by: PLATE CUTTER: Tory Lazaro CRNA Emergent airway documentation: Patient [...] ur Straw Yellow Clarity, ur Clear Clear [facility] Specific gravity, ur >1.042(H) 1.003 - 1.030 [facility] pH, urine 6.5 [facility] Comment: Interpretive Data U rine pH is affected by diet, medications, systemic acid-base disturbances, and renal tubular function. pH may affect urinary stone formation. For example, urine pH below 6.0 may help reduce the tendency for calcium phosphate stones and pH greater than 6.0 may reduce the tendency for uric acid stone formation. Source: [facility] Current Interpretive Data was last revised on 2017 Protein, ur ql 1+(A) Negative [facility] Glucose, ur ql Negative Negative [facility] Ketones, ur Trace Negative [facility] Bilirubin, ur Negative Negative [facility] Blood, ur 2+(A) Negative [facility] Urobilinogen, ur <2.0 <2.0 mg/dL [facility] Nitrite, ur Negative Negative [facility] Leukocyte esterase, ur Trace(A) Negative [facility] UA reflex comment Reflex to microscopic UA will be performed. [facility] Urine, clean voided 02/19/2025 9:09 PM CDT 02/19/2025 9:24 PM CDT us Lauren Haro MD LAB MICROBIOLOGY - GENE RAL ORDERABLES Final Result [facility] [place] [address] * (ABNORMAL) Urinalysis, microscopic only (02/19/2025 9:09 PM CDT) WBC, ur 6-10(A) 0 - 5 /HPF RBC, ur 6-10(A) 0 - 2 /HPF [facility] Epithelial cells, squamous, ur 6-10(A) 0 - 5 /HPF [facility] Comment:Suggestive of contam ination. Consider recollection by clean catch. Mucous, ur Present(A) [facility] Culture Reflex Comment Reflex conditions for urine culture (WBC >10) not met. [facility] Urine, clean voided 02/19/2025 9:09 PM CDT 02/19/2025 9:24 PM CDT Lauren Haro MD LAB URINE ORDERABLES Fi nal Result [facility] Department [place] [address] * Check Sample (02/19/2025 9:01 PM CDT) ABO Rh A Positive [facility] HCLL OTHER 02/19/2025 9:01 PM CDT 02/19/2025 9:10 PM CDT Magalie Archibald MD LAB BLOOD ORDERABLES Final Result Performing Organization Address City/[facility]/ZIP Co de Phone Number [facility] Department [place] [address] [facility] * CT Body Outside Consult [...] images may or may not represent the eyak source data set and thus may contain [...] IMAGING STUDY STUDY INITIALLY PERFORMED: 02/19/2025 at [facility]. TYPE OF STUDY: Multiple CT images of [...] IMAGING STUDY STUDY INITIALLY PERFORMED: 02/19/2025 at [facility]. TYPE OF STUDY: Multiple CT images of [...] images may or may not represent the eyak source data set and thus may contain [...] MD LAB BLOOD ORDERABLES Fi nal Result [facility] [place] [address] * (ABNORMAL) Differential, auto (02/19/2025 8:20 PM CDT) Neutrophil abs 27.04(H) 1.50 - 6.50 K/cumm Imm gran abs 0.24(H) 0.00 - 0.10 K/cumm [facility] Lymphocyte abs 2.60 0.80 - 3.30 K/cumm [facility] Monocyte abs 1.73(H) 0.20 - 0.80 K/cumm [facility] Eosinophil abs 0.03 0.00 - 0.50 K/cumm [facility] Basophil abs 0.11(H) 0.00 - 0.10 K/cumm [facility] Neutrophil pct 85.2 % [facility] Comment: Interpretive Data Percent cell count reference ranges are not reported, since discordance with absolute values may lead to misinterpretation of CBC data. Current Interpretive Data was last revised on 2018. Imm gran pct 0.8 % [facility] Comment: Interpretive Data Percent cell count reference ranges are not reported, since discordance with absolute values may lead to misinterpretation of CBC data. Current Interpretive Data was last revised on 2018. Lymphocyte pct 8.2 % [facility] Comment: Interpretive Data Percent cell count reference ranges are not reported, since discordance with absolute values may lead to misinterpretation of CBC data. Current Interpretive Data was last revised on 2018. Monocyte pct 5.4 % [facility] Comment: Interpretive Data Percent cell count reference ranges are not reported, since discordance with absolute values may lead to misinterpretation of CBC data. Current Interpretive Data was last revised on 2018. Eosinophil pct 0.1 % [facility] Comment: Interpretive Data Percent cell count reference ranges are not reported, since discordance with absolute values may lead to misinterpretation of CBC data. Current Interpretive Data was last revised on 2018. Basophil pct 0.3 % [facility] Comment: Interpretive Data Percent cell count reference ranges are not reported, since discordance with absolute values may lead to misinterpretation of CBC data. Current Interpretive Data was last revised on 2018. Blood 02/19/2025 8:20 PM CDT 02/19/2025 8:36 PM CDT Lauren Haro MD LAB BLOOD ORDERABLES nal Result [facility] [place] [address] * (ABNORMAL) CBC with auto differential (02/19/2025 8:20 PM CDT) WBC 31.75(H) 3.80 - 9.90 K/cumm Hgb 15.1 11.9 - 15.5 g/dL [facility] Hct 44.4 35.6 - 45.5 % [facility] Plt 339 150 - 400 K/cumm [facility] MPV 9.3 9.1 - 12.3 fL [facility] RBC 4.92 3.90 - 5.20 M/cumm [facility] MCV 90.2 81.3 - 96.4 fL [facility] MCH 30.7 27.1 - 33.3 pg [facility] MCHC 34.0 32.3 - 35.7 g/dL [facility] RDW CV 14.5 11.1 - 14.9 % [facility] RDW SD 47.8 35.7 - 48.1 fL [facility] NRBC abs 0.00 0.00 - 0.01 K/cumm [facility] Blood 02/19/2025 8:20 PM CDT 02/19/2025 8:36 PM CDT Lauren Haro MD LAB BLOOD ORDERABLES Fi nal Result Performing Organization Address [facility] de Phone Number [facility] [place] [address] * aPTT (02/19/2025 8:20 PM CDT) aPTT [...] ORDERABLES Fi nal Result Performing Organization Address [facility] de Phone Number [facility] [place] [address] * Protime-INR (02/19/2025 8:20 PM CDT) PT 11.8 9.7 - 13.0 sec INR 1.09 0.90 - 1.20 [facility] Comment: Interpretive data Oral anticoagulant therapeutic ranges: Venous thromboembolism prophylaxis or treatment: 2.0-3.0 CARDIOLOGY Standard range: 2.0-3.0 High-intensity range: 2.5-3.5 Refer to indication-specific guidelines for appropriate target ranges for prosthetic heart valve replacement. Current interpretive data was last revised on 2019. Blood 02/19/2025 8:20 PM CDT 02/19/2025 8:39 PM CDT Lauren Haro MD LAB BLOOD ORDERABLES Fi nal Result Performing Organization Address [facility] Co de Phone Number [facility] [place] [address] * Type and screen (02/19/2025 8:20 PM CDT) [facility] Ashely, indirect Negative ABO Rh A Positive [facility] Blood 02/19/2025 8:20 PM CDT 02/19/2025 8:33 PM CDT Narrative [facility] - 02/19/2025 9:26 PM CDT Has the patient had Daratumumab or Isatuximab in the past 6 months?->Unknown Lauren Haro MD LAB BLOOD BANK TEST ORD ERABLES Final Result Performing Organization Address [facility] Co de Phone Number [facility] Department [place] [address] * Creatine kinase (CK), total (02/19/2025 8:20 PM CDT) [facility] CK 61 30 - 200 Units/L Comment:Hemolyzed; result ma y be falsely elevated Blood 02/19/2025 8:20 PM CDT 02/19/2025 8:35 PM CDT Magalie Archibald MD LAB BLOOD ORDERABLES Final Result Performing Organization Address [facility] Co de Phone Number [facility] Department [place] [address] * (ABNORMAL) Comprehensive metabolic panel (02/19/2025 8:20 PM CDT) [facility] Sodium 138 135 - 145 mmol/L Potassium, pl 4.4 3.3 - 4.9 mmol/L [facility] Comment:Hemolyzed; Potassium value may be falsely elevated by as much as 0.6-1.0 mmol/L. Suggest redraw and reanalysis. Chloride 102 97 - 110 mmol/L [facility] CO2 22 22 - 32 mmol/L [facility] Anion gap 14 2 - 15 mmol/L [facility] BUN 9 6 - 25 mg/dL [facility] Creatinine 0.69 0.60 - 1.10 mg/dL [facility] Glucose 137 70 - 199 mg/dL [facility] Comment: Interpretive Data Fasting glucose >/= [...] 2022. Calcium 9.1 8.5 - 10.3 mg/dL [facility] Bilirubin, total 0.4 0.1 - 1.2 mg/dL [facility] Protein, pl 7.9 6.5 - 8.5 g/dL [facility] Albumin 4.2 3.5 - 5.0 g/dL [facility] Alk phos 85 40 - 130 Units/L [facility] ALT 32 7 - 45 Units/L [facility] AST 47(H) 10 - 45 Units/L [facility] Comment:Hemolyzed; result ma y be falsely elevated Blood 02/19/2025 8:20 PM CDT 02/19/2025 8:35 PM CDT Lauren Haro MD LAB BLOOD ORDERABLES Fi nal Result [facility] [place] [address] from Last 3 Months Insurance Scripted ACCESS CHOICE Scripted ACCESS CHOICE Advance Directives For more information, please contact: [phone] * Full Code (Latest Code Status on File) Date Activated Date Inactivated Comments 02/20/2025 12:42 AM 02/27/2025 1:57 PM Care Teams Wrap Knitting Machine Operator Relationship Specialty Start Date End Date Cody Roper DO [address] [place] [address] PCP - General Family Medicine 07/02/19 David Bell MD [address] [place] [address] Medical Oncologist/Internet Salesperson Hematology and Oncology 06/11/20
--- OUTSIDE RECORDS SUMMARY | 2025-03-17 17:05 | XMS_ITS | Encounter Summary ---
Author Organization [facility] Address [address] [place] [address] Phone Care Team Providers Care Outside Maintenance Worker Name Role Phone Cody Roper DO Primary Care Provider David Bell MD Unavailable [phone] Encounter Details Date Type Department Care Team (Late st Contact Info) Description 03/12/2025 Orders Only [facility] Surgery [address] [facility] [address], [place] [address] Karina Sharma RMA Social History Tobacco Use Types Packs/Day Years Used Date Smoking Tobacco: Heavy Smoker Cigarettes 1 24 Smokeless Tobacco: Never Alcohol Use Standard Drinks/Week Comments Yes 0 (1 standard drink = 0.6 oz pur e alcohol) rare [facility] Utilities Answer Date Recorded In the past 12 months has [employer] electric, gas, oil, or water company threatened to shut off services in your [...] often do you attend chur ch or temple services? Never 02/25/2025 Do you belong to any clubs o r organizations such as cheondoism groups, unions, fraternal or athletic groups, or [...] any time in the past 12 m [facility], were you homeless or living [...] on filedocumented in this encounter Care Teams Outside Maintenance Worker Relationship Specialty Start Date End Date Cody Roper DO [address] [place] [address] PCP - General Family Medicine 07/02/19 David Bell MD [address] [place] [address] Medical Oncologist/Mechanical Engineering Intern Hematology and Oncology 06/11/20 documented as of this encounter
--- OUTSIDE RECORDS SUMMARY | 2025-03-17 17:05 | XMS_ITS | Encounter Summary ---
Author Organization [facility] Healthcare Address [address] [place] [address] Care Team Providers Care Puffer Tender Name Role Phone Cody Roper DO Primary Care Provider David Bell MD Unavailable [phone] Encounter Details Date Type Department Care Team (Late st Contact Info) Description 01/12/2023 Telephone [facility] [address] [place] [address] [place] [address] [address] Social History Tobacco Use Types Packs/Day Years [...] on filedocumented in this encounter Care Teams Puffer Tender Relationship Specialty Start Date End Date Cody Roper DO [address] [place] [address] PCP - General Family Medicine 07/02/19 David Bell MD [address] [place] [address] Medical Oncologist/Stockroom Worker Hematology and Oncology 06/11/20 documented as of this encounter
--- OUTSIDE RECORDS SUMMARY | 2025-03-17 17:05 | XMS_ITS | Clinical Summary ---
Author Organization [facility] Address [address] [place] [place] [address] Care Team Providers Care Hogshead Hooper Name Role Phone Roper, Dino SalgadoEmil Primary Care Provider [phone] Source Comments [facility],non-owned Affiliates and Associated Physician Practices is amultiple site organization consisting of ambulatory clinics and hospital sitesin [place], [place], [place] and [place]. This disclosure is being madepursuant to the Care Everywhere program and may not contain all information available regarding this patient. 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 Gender Identity Not on file Sexual Orientation [...] topic Insurance [place] BC/BLUE BLUE CROSS BLUE [facility] ANTH ANTHEM BC/BLUE BLUE CROSS BLUE SHIELD [place] * Guarantor: LISSA OLIVARES Account Type Relation to Patient Date of Phone Billing Address Personal/Family [address] [place] [address] * Guarantor: LISSA OLIVARES Account Type Relation to Patient Date of Phone Billing Address Personal/Family [address] [place] [address] * Guarantor: LISSA OLIVARES Account Type Relation to Patient Date of Phone Billing Address Personal/Family [address] [place] [address] Care Teams Hogshead Hooper Relationship Specialty Start Date End Date Dino Roper DO [address] [place] [address] PCP - General Family Medicine 08/30/20
--- OUTSIDE RECORDS SUMMARY | 2025-03-17 17:05 | XMS_ITS | Encounter Summary ---
Author Organization [facility] Address [address] [place] [address] Phone Care Team Providers Care Patient Services Representative Name Role Phone Cody Roper DO Primary Care Provider David Bell MD Unavailable [phone] Encounter Details Date Type Department Care Team (Late st Contact Info) Description 03/12/2025 Orders Only [facility] Surgery [address] [facility] [address] [address] [place] [address] [facility] [address] [place] [address] Social History Tobacco Use Types Packs/Day Years Used Date Smoking Tobacco: Heavy Smoker Cigarettes 1 24 Smokeless Tobacco: Never Alcohol Use Standard Drinks/Week Comments Yes 0 (1 standard drink = 0.6 oz pur e alcohol) rare [facility] Utilities Answer Date Recorded In the past 12 months has [employer], gas, oil, or water [employer] threatened to shut off services in your [...] How often do you attend chur or adventism services? Never 02/25/2025 Do you belong to any clubs o r organizations such as methodist groups, unions, fraternal or athletic groups, or [...] in the past 12 m [facility], were you homeless or living in a care home (including now)? No 02/25/2025 Personal Safety Answer [...] on filedocumented in this encounter Care Teams Patient Services Representative Relationship Specialty Start Date End Date Cody Roper DO [address] [place] [address] PCP - General Family Medicine 07/02/19 David Bell MD [address] [place] [address] Medical Oncologist/Company Laborer Hematology and Oncology 06/11/20 documented as of this encounter
--- OUTSIDE RECORDS SUMMARY | 2025-03-17 17:05 | XMS_ITS | Clinical Summary ---
Author Organization [facility] Address [address] [place] [address] Care Team Providers Care Low Raw Sugar Cutter Name Role Phone Judson Dino Emil Primary Care Provider [phone] David Bell MD Unavailable [phone] Danilo Dolan MD Unavailable [phone] Harvey Liriano MD Unavailable Unavailable Allergies Active [...] Department Care Team Description 01/18/2025 9:58 AM [facility] - 01/18/2025 5:38 PM [facility] Emergency [facility] [place] [address] [place] [address] Marisela Houston PA Abdominal Pain Discharge Disposition: Home or Self Care (Routine Discharge) 01/18/2025 Travel 12/25/2024 2:46 PM [facility] - 12/25/2024 7:13 PM [facility] Emergency [facility] [place] [address] [place] [address] Radha Cortes NP Abdominal Pain Discharge Disposition: [...] place to sleep or slept in a assisted (including now)? No 03/08/2023 Comments No Sex and Gender Information Value Date Recorded Sex Assigned at Female 12/25/2024 1:18 PM [facility] Legal Sex Female 4:07 PM [facility] Gender Identity Not on file Sexual Orientation Not on file Last Filed Vital Signs Vital Sign Reading Time Taken Comments Blood Pressure 140/93 01/18/2025 5:36 PM [facility] Pulse 96 01/18/2025 5:36 PM [facility] Temperature 36.1 C (97 F) 01/18/2025 10:33 AM [facility] Respiratory Rate 16 01/18/2025 5:36 PM [facility] Oxygen Saturation 100% 01/18/2025 5:36 PM [facility] Inhaled Oxygen Concentration - - Weight 73.5 kg (162 lb) 01/18/2025 9:05 AM [facility] Height 157.5 cm (5' 2 ) 01/18/2025 9:05 AM [facility] Body Mass Index 29.63 01/18/2025 9:05 AM [facility] Plan of Treatment Health Maintenance Due Date [...] Solis, RN Medical Devices Implanted Type Area Product Scientist Device Identifier Shelf Expiration Date Model / Serial / Lot Graft Bone I Factor 2.5cc Allograft Putty Syringe - [id number] Implanted:Qt y: 1 on 03/08/2023 by Danilo Dolan MD at [facility] Bone N/A: Spine Cervical [employer] [id number] 07/19/2025 700-025 / / [id number] Zavation Cage [id number] Implanted:Qt y: 1 on 03/08/2023 by Danilo Dolan MD at [facility] Cage N/A: Spine Cervical 20-0607 / / Description:At c6-7 Zavation [id number] Cage Implanted:Qt y: 1 on 03/08/2023 by Danilo Dolan MD at [facility] Cage N/A: Spine Cervical 20-0606 / / Description:At c5-6 Zavation 32mm Plate Implanted:Qt y: 1 on 03/08/2023 by Danilo Dolan MD at [facility] Plate N/A: Spine Cervical 30-0232 / / Zavation 4.0x12mm Vsd Screw Implanted:Qt y: 6 on 03/08/2023 by Danilo Dolan MD at [facility] Screw N/A: Spine Cervical 31-4012 / / Tissue Surgiflo 8ml - [id number] Implanted:Qt y: 1 on 03/08/2023 by Danilo Dolan MD at [facility] Sealant N/A: Spine Cervical [employer] 04/18/2024 [id number] / / [id number] Procedures Procedure Name Priority Date/Time Associated Diagnosis Comments LACTIC ACID W REFLEX (SEPSIS) TIMED 01/18/2025 1:27 PM [facility] US PELVIC NON OB COMP TV STAT 01/18/2025 12:42 PM [facility] LACTIC ACID W REFLEX (SEPSIS) STAT 01/18/2025 10:[address] ABD+PEL KIDNEY STONE STAT 01/18/2025 10:36 AM [facility] POCT URINE (BACK OFFICE) STAT 01/18/2025 10:10 AM [facility] HC URINALYSIS AUTO W/O MICRO STAT 01/18/2025 10:08 AM [facility] COMPREHENSIVE METABOLIC PANEL STAT 01/18/2025 10:08 AM [facility] CBC W/DIFF AUTOMATED STAT 01/18/2025 10:[address] ABD+PEL W CON STAT 12/25/2024 5:06 PM [facility] URINE BACTERIA CULTURE STAT 3:53 PM [facility] HC URINALYSIS AUTO W/O MICRO STAT 12/25/2024 3:53 PM [facility] POCT URINE (BACK OFFICE) STAT 12/25/2024 3:52 PM [facility] LIPASE STAT 12/25/2024 3:38 PM [facility] COMPREHENSIVE METABOLIC PANEL STAT 12/25/2024 3:38 PM [facility] CBC W/DIFF AUTOMATED STAT 12/25/2024 3:38 PM [facility] from Last 3 Months Results * LACTIC ACID W REFLEX (SEPSIS) (01/18/2025 1:27 PM [facility]) Only the most recent of2 resultswithin the time period is included. LACTIC ACID VENOUS 1.3 0.4 - 2.0 MMOL/L 01/18/2025 3:[address] [facility] 01/18/2025 1:27 PM [facility] us [facility] Final Resul t [facility] [address] [place] [address], * US PELVIC TV NON OB (01/18/2025 12:42 PM [facility]) Anatomical Region Laterality Modality Pelvis Ultrasound 01/18/2025 12:3 2 PM [facility] Impressions 01/18/2025 12:35 PM [facility] Impression: 1. No acute findings in the pelvis. Documented Doppler flow within both ovaries. 2. Simple appearing bilateral follicular cysts measuring up to 2.9 cm. No specific follow-up is required. Referred By: Interpreted By: Ciaran Márquez MD, 01/18/2025 12:32 PM Narrative 01/18/2025 12:35 PM [facility] [place] [address] Procedure: US PELVIC NON OB COMP TV [...] Procedure Note Ciaran Márquez MD - 01/18/[address] [address] Procedure: US PELVIC NON OB COMP TV [...] CT ABD+PEL KIDNEY STONE (01/18/2025 10:36 AM [facility]) Anatomical Region Laterality Modality Abdomen Computed Tomogra phy 01/18/2025 10:3 7 AM [facility] Impressions 01/18/2025 10:41 AM [facility] IMPRESSION: No acute inflammatory changes are present within the abdomen or pelvis. Bilateral nonobstructive nephrolithiasis. No hydronephrosis or hydroureter. Bilateral ovarian cysts are present. These can be seen normally in a patient of menstrual age. Referred By: Interpreted By: Carlos Moore MD, 01/18/2025 10:37 AM Narrative 01/18/2025 10:41 AM [facility] [address] [address] Procedure(s): CT ABD+PEL KIDNEY STONE Date of [...] Procedure Note Carlos Moore MD - 01/18/[address] [address] Procedure(s): CT ABD+PEL KIDNEY STONE Date of [...] t * POCT urine (01/18/2025 10:10 AM [facility]) Only the most recent of2 resultswithin the time period is included. URINE HCG TEST NEGATIVE Internal Control: VALID us Marisela [facility] POINT OF CARE TEST ORDERABL ES Final Result * (ABNORMAL) URINALYSIS (01/18/2025 10:08 AM [facility]) Only the most recent of2 resultswithin the time period is included. SPECIMEN TYPE URINE CLEAN CATCH 01/18/2025 10:[address] [facility] COLOR (U) YELLOW 01/18/2025 10:[address] [facility] TRANSPARENCY CLEAR 01/18/2025 10:[address] [facility] SPECIFIC GRAVITY (U) 1.040(H) 1.001 - 1.030 01/18/2025 10:35 AM [facility] U PH 6.0 5.0 - 9.0 01/18/2025 10:35 AM [facility] LEUKOCYTES (U) NEGATIVE NEGATIVE 01/18/2025 10:35 AM [facility] NITRITES NEGATIVE NEGATIVE 01/18/2025 10:35 AM [facility] PROTEIN RANDOM (U) 10 <30 MG/DL 01/18/2025 10:35 AM [facility] GLUCOSE (U) NORMAL NORMAL MG/DL 01/18/2025 10:35 AM [facility] KETONES MG/DL (U) TRACE(A) NEGATIVE MG/DL 01/18/2025 10:35 AM [facility] UROBILINOGEN NORMAL NORMAL MG/DL 01/18/2025 10:35 AM [facility] BILIRUBIN (U) NEGATIVE NEGATIVE MG/DL 01/18/2025 10:35 AM [facility] BLOOD (U) NEGATIVE NEGATIVE 01/18/2025 10:35 AM [facility] URINE SPECIMEN OBTAINED BY CLEAN CATCH PROCEDURE / Unknown 01/18/2025 10:08 AM [facility] us Marisela Houston PA URINE ORDERABLES Final Resu lt [facility] [address] [place] [address], [place] [phone] * (ABNORMAL) COMPREHENSIVE METABOLIC PANEL (01/18/2025 10:08 AM [facility]) Only the most recent of2 resultswithin the time period is included. GLUCOSE 152(H) 70 - 99 MG/DL 01/18/2025 10:43 AM [facility] BUN 14 7 - 18 MG/DL 01/18/2025 10:43 AM [facility] CREATININE S/P/B 0.90 0.55 - 1.02 MG/DL 01/18/2025 10:43 AM [facility] SODIUM S/P/B 135(L) 136 - 145 MMOL/L 01/18/2025 10:43 AM [facility] POTASSIUM S/P/B 4.3 3.5 - 5.1 MMOL/L 01/18/2025 10:43 AM [facility] CHLORIDE S/P/B 104 97 - 115 MMOL/L 01/18/2025 10:43 AM [facility] CO2 27.5 21 - 32 MMOL/L 01/18/2025 10:43 AM [facility] CALCIUM S/P/B 9.5 8.5 - 10.1 MG/DL 01/18/2025 10:43 AM [facility] BILIRUBIN TOTAL S/P/B 0.4 0.2 - 1.2 MG/DL 01/18/2025 10:43 AM [facility] Comment: THIS ASSAY IS NOT RECOMMENDED FOR PATIENTS UNDERGOING TREATMENT WITH ELTROMBOPAG DUE TO THE POTENTIAL FOR FALSELY ELEVATED RESULTS. TOTAL PROTEIN S/P/B 8.8(H) 6.4 - 8.2 G/DL 01/18/2025 10:43 AM [facility] ALBUMIN S/P/B 4.0 3.4 - 5.0 G/DL 01/18/2025 10:43 AM [facility] AST 23 15 - 37 U/L 01/18/2025 10:43 AM [facility] ALT 43 14 - 55 U/L 01/18/2025 10:43 AM [facility] ALKALINE PHOSPHATASE S/P/B 101 50 - 136 U/L 01/18/2025 10:[address] [facility] ANION GAP 3.5 2 - 10 MMOL/L 01/18/2025 10:43 AM [facility] BUN CREATININE RATIO 15.6 6 - 26 01/18/2025 10:43 AM [facility] A/G RATIO 0.8(L) 1.0 - 2.0 RATIO 01/18/2025 10:43 AM [facility] GFR ESTIMATE 80(L) >90 ML/MIN/1.7 3 M2 01/18/2025 10:43 AM [facility] Comment: NOTE: eGFR is not calculated for patients <18 years of age or gender unknown. This is an estimated GFR calculation using the new CKD EPI creatinine equation without race and so does not require a correction factor for race. This estimated GFR should not be used for calculating drug doses. 01/18/2025 10:0 8 AM [facility] Final Resul t [facility] [address] [place] [address], [place] [phone] * (ABNORMAL) CBC W/DIFF AUTOMATED (01/18/2025 10:08 AM [facility]) Only the most recent of2 resultswithin the time period is included. WBC 22.23(H) 4.5 - 11.0 x10'3/uL 01/18/2025 10:32 AM [facility] RBC 5.65(H) 4.20 - 5.40 x10'6/uL 01/18/2025 10:32 AM [facility] HGB 16.9(H) 12.0 - 16.0 G/DL 01/18/2025 10:32 AM [facility] HCT 51.5(H) 38.0 - 48.0 % 01/18/2025 10:32 AM [facility] MCV 91.2 81.0 - 99.0 FL 01/18/2025 10:32 AM [facility] MCH 29.9 27.0 - 31.0 PG 01/18/2025 10:32 AM [facility] MCHC 32.8 32.0 - 36.0 G/DL 01/18/2025 10:32 AM [facility] RDW 14.6(H) 11.5 - 14.5 % 01/18/2025 10:32 AM [facility] PLT 415(H) 130 - 400 x10'3/uL 01/18/2025 10:32 AM [facility] MPV 9.0(L) 9.3 - 12.2 FL 01/18/2025 10:32 AM [facility] DIFFERENTIAL TYPE AUTOMATED DIFFERENTIAL 01/18/2025 10:32 AM [facility] NEUTROPHILS % 78.3 % 01/18/2025 10:32 AM [facility] LYMPHOCYTES % 12.7 % 01/18/2025 10:32 AM [facility] MONOCYTES % 5.6 % 01/18/2025 10:32 AM [facility] EOSINOPHILS 2.4 % 01/18/2025 10:32 AM [facility] BASOPHILS 0.4 % 01/18/2025 10:32 AM [facility] IMMATURE GRANS % 0.6 % 01/19/20 10:32 AM [facility] ABS. NEUTROPHILS 17.39(H) 1.80 - 7.70 x10'3/uL 01/18/2025 10:[address] [facility] ABS. LYMPHOCYTES 2.82 1.00 - 4.80 x10'3/uL 01/18/2025 10:[address] [facility] ABS. MONOCYTES 1.25(H) 0.24 - 0.86 x10'3/uL 01/18/2025 10:[address] [facility] ABS. EOSINOPHILS 0.53(H) 0.04 - 0.36 x10'3/uL 01/18/2025 10:[address] [facility] ABS. BASOPHILS 0.10(H) 0.01 - 0.08 x10'3/uL 01/18/2025 10:[address] [facility] ABS. IMMATURE GRANULOCYTES 0.14 0.00 - 0.49 x10'3/uL 01/18/2025 10:[address] [facility] 01/18/2025 10:0 8 AM [facility] us Marisela Houston PA LABORATORY Final Resul t [facility] [address] [place] [address], * CT ABD+PEL W CON (12/25/2024 5:06 PM [facility]) Anatomical Region Laterality Modality Abdomen Computed Tomogra phy 12/25/2024 5:28 PM [facility] Impressions 12/25/2024 5:34 PM [facility] IMPRESSION: 1. Bilateral nonobstructing nephrolithiasis measuring up to 14 x 7 mm on the left. Chronic left renal atrophy with multifocal cortical thinning/scarring. 2. Bilateral ovarian cysts measuring up to 2.8 cm. 3. Atherosclerosis. 4. Please see above for additional chronic, incidental, and nonemergent findings elsewhere. Referred By: Interpreted By: Yony Cornejo MD, 12/25/2024 5:28 PM Narrative 12/25/2024 5:34 PM [facility] [address] [address] EXAMINATION: CT Abdomen and Pelvis with contrast [...] Procedure Note Yony Cornejo MD - 12/25/[address] [address] EXAMINATION: CT Abdomen and Pelvis with contrast [...] * (ABNORMAL) CULTURE URINE (12/25/2024 3:53 PM [facility]) SPEC DESCRIPTION URINE CLEAN CATCH 12/25/2024 3:[address] [facility] SPECIAL REQUESTS NO SPECIAL REQUEST 12/25/2024 3:[address] [facility] CULTURE RESULT 10,000-49,0 00 COL/ML ESCHERICHIA COLI (A) 12/27/2024 7:[address] [facility] URINE SPECIMEN OBTAINED BY CLEAN CATCH PROCEDURE / Unknown 12/25/2024 3:53 PM [facility] 12/25/2024 3:57 PM [facility] Narrative Organism Antibiotic Method Susceptibility Escherichia coli [...] - GENERAL ORDERAB LES Final Result [facility] [address] [place] [address], [place] [phone] * LIPASE (12/25/2024 3:38 PM [facility]) LIPASE 32 13 - 75 UNITS/L 12/25/2024 4:[address] [facility] 12/25/2024 3:38 PM [facility] us Ndiaye C Thorpe SWINGING CUT OFF SAW OPERATOR LABORATORY Final Result [facility] [address] [place] [address], [place] [phone] from Last 3 Months Insurance [facility] Advance Directives * Full Code (Latest Code Status on File) Date Activated Date Inactivated Comments 03/09/2023 12:43 AM 03/09/2023 6:15 PM Care Teams Low Raw Sugar Cutter Relationship Specialty Start Date End Date Dino Roper DO [address] [place] [address] PCP - General FAMILY PRACTICE 01/23/23 David Bell MD [address] [place] [address] Referring Physician MEDICAL ONCOLOGY 03/01/23 Danilo Dolan MD [address] [address] NEUROLOGICAL SURGERY 03/01/23 Harvey Liriano MD 3 [facility] [address] [place] [address] CARDIOVASCULAR DISEASE 03/07/23
--- OUTSIDE RECORDS SUMMARY | 2025-03-17 17:05 | XMS_ITS | Clinical Summary ---
Author Organization [facility] Address [address] [place] [address] Care Team Providers Care Financial Aid Counselor Name Role Phone Cody Roper DO Primary Care Provider David Bell MD Unavailable [phone] Allergies No known active allergies Medications traZODone (DESYREL) 50 mg tablet Take 1 tablet (50 mg total) by mouth nightly at bedtime. 0 019 Active piroxicam (FELDENE) 20 mg capsule Take by mouth daily 3 019 Active montelukast (SINGULAIR) 10 mg tablet Take 1 tablet (10 mg total) by mouth every evening 3 019 Active metFORMIN XR (GLUCOPHAGE XR) 500 mg 24 hr tablet Take by mouth 2 (two) times a day with meals 11 Active DULERA 200-5 mcg/actuation inhaler TAKE 2 PUFFS BY MOUTH TWICE A DAY 3 Active gabapentin (NEURONTIN) 300 mg capsule 2 capsules (600 mg total) 3 (three) times a day 019 Active cetirizine (ZyrTEC) 10 mg tablet Take [...] tablet 1 hour before procedure. Will need dedicated local truck driver to bring him. 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) 03/12/2025 Orders Only [facility] [address] [place] [address] [place] [address] [phone] Lexis Renteria MD 03/12/2025 Orders Only [facility] [address] [place] [address] [place] [address] [phone] Karina Sharma RMA 03/04/2025 2:45 PM CDT Office Visit [facility] [address] [place] [address] Advanced Medicine 6th [place] [phone] Josiane Oliveira NP 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 02/26/2025 8:15 AM CDT Anesthesia Event [facility] Operating [facility] [address] [place] [phone] Brandon Reyes MD 02/26/2025 8:00 AM CDT - 02/26/2025 10:00 AM CDT Surgery [facility] Operating Room [facility] [address] [place] [address] Lexis Renteria MD RIGHT FOREARM SECONDARY CLOSURE OF SURGICAL WOUND 02/25/2025 Telephone [facility] Surgery [address] [place] [address] Advanced Medicine 6th [place] [phone] Shweta Perry RN 02/19/2025 9:35 PM CDT - 02/19/2025 11:35 PM CDT Surgery [facility] Operating Room [address] [place] [phone] Lexis Renteria MD FASCIOTOMY 02/19/2025 9:10 PM CDT Anesthesia Event [facility] Operating Room [address] [place] [phone] Palomo Jaramillo MD Bharadwaj, Archana Dhatreecharan, MD 02/19/2025 8:03 PM CDT - 02/27/2025 9:51 AM CDT Hospital Encounter [facility] [address] [place] [address] Magalie Archibald MD Currie, Kelly Bettina, MD [...] = 0.6 oz pur e alcohol) rare [employer] Utilities Answer Date Recorded In the past 12 months has [employer], gas, oil, or water [employer] threatened to shut off services in your [...] often do you attend chur ch or congregational services? Never 02/25/2025 Do you belong to any clubs o r organizations such as hindu groups, unions, fraternal or athletic groups, or [...] any time in the past 12 m [facility], were you homeless or living in a detention (including now)? No 02/25/2025 Personal Safety Answer [...] PATHOGEN PANEL Routine 02/20/2025 10:[address] AN PROCEDURE PLACEHOLDER Routine 02/19/2025 9:[address] AN EMERGENT ENDOTRACHEAL AIRWAY Routine 02/19/2025 9:34 PM CDT RELEASE MEDIAN NERVE 02/19/2025 9:17 PM CDT 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 Case Notes Imtiaz [phone] @ 2032 RELEASE GUYONS CANAL 02/19/2025 9:17 PM CDT 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 Case Notes Roshan [phone] @ 2032 RELEASE CARPAL TUNNEL 02/19/2025 9:17 PM CDT 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 Case Notes Roshan [phone] @ 2032 FASCIOTOMY 02/19/2025 9:17 PM CDT 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 Case Notes Roshan [phone] @ 2032 POCT HCG, URINE Routine 02/19/2025 9:10 PM CDT URINALYSIS, MICROSCOPIC ONLY STAT 02/19/2025 9:09 PM CDT URINALYSIS AND REFLEX TO MICROSCOPIC AND CULTURE STAT 02/19/2025 9:09 PM CDT B CHECK SAMPLE STAT 02/19/2025 9:[address] BODY OUTSIDE CONSULT Routine 02/19/2025 8:[address] CRITICAL CARE ILL/INJURED PATIENT INIT 30-74 MIN [...] POCT ORDERABLES - DE VICE Final Result [facility] Department [place] [address] * Airway (02/26/2025 8:31 AM CDT) Narrative [...] POCT ORDERABLES - DE VICE Final Result [facility] [place] [address] * Type and screen (02/26/2025 7:47 AM CDT) ABO Rh A Positive [place], indirect Negative [facility] Blood 02/26/2025 7:47 AM CDT 02/26/2025 8:09 AM CDT Narrative [facility] - 02/26/2025 9:00 AM CDT Has the patient had Daratumumab or Isatuximab in the past 6 months?->Unknown Brandon Reyes MD LAB BLOOD BANK TEST ORD ERABLES Final Result Performing Organization Address [facility] Co de Phone Number [facility] Department [place] [address] * eGFR (02/25/2025 9:31 PM CDT) eGFR [...] ORDERABLES Fin al Result Performing Organization Address City/[facility]/ZIP Co de Phone Number [facility] Department [place] [address] * (ABNORMAL) CBC without differential (02/25/2025 9:31 PM CDT) WBC 14.05(H) 3.80 - 9.90 K/cumm Hgb 13.5 11.9 - 15.5 g/dL [facility] Hct 41.7 35.6 - 45.5 % [facility] Plt 286 150 - 400 K/cumm [facility] MPV 9.5 9.1 - 12.3 fL [facility] RBC 4.50 3.90 - 5.20 M/cumm [facility] MCV 92.7 81.3 - 96.4 fL [facility] MCH 30.0 27.1 - 33.3 pg [facility] MCHC 32.4 32.3 - 35.7 g/dL [facility] RDW CV 14.4 11.1 - 14.9 % [facility] RDW SD 48.6(H) 35.7 - 48.1 fL [facility] NRBC abs 0.00 0.00 - 0.01 K/cumm [facility] Blood 02/25/2025 9:31 PM CDT 02/25/2025 10:13 PM CDT Lexis Renteria MD LAB BLOOD ORDERABLES Fin al Result [facility] Department [place] [address] * Basic metabolic panel (02/25/2025 9:31 PM CDT) Pathologist [facility] Sodium 139 135 - 145 mmol/L Potassium, pl 4.3 3.3 - 4.9 mmol/L [facility] Chloride 103 97 - 110 mmol/L [facility] CO2 26 22 - 32 mmol/L [facility] Anion gap 10 2 - 15 mmol/L [facility] BUN 12 6 - 25 mg/dL [facility] Creatinine 0.69 0.60 - 1.10 mg/dL [facility] Glucose 133 70 - 199 mg/dL [facility] Comment: Interpretive Data Fasting glucose >/= 126 [...] classification and Diagnosis of Diabetes Diabetes Care 2022; 46: [id number]. Current interpretive data was last revised 2022. Calcium 9.1 8.5 - 10.3 mg/dL [facility] Blood 02/25/2025 9:31 PM CDT 02/25/2025 10:12 PM CDT Lexis Renteria MD LAB BLOOD ORDERABLES Fin al Result Performing Organization Address [facility] de Phone Number [facility] [place] [address] * (ABNORMAL) Hemoglobin A1c (02/24/2025 9:50 AM CDT) Pathologist [facility] Hgb A1C 6.3(H) 4.0 - 5.6 % Estimated Average Glucose 134 mg/dL [facility] Comment: The ADA recommends reporting an estimated [...] ORDERABLES Fin al Result Performing Organization Address [facility] Co de Phone Number [facility] [place] [address] * eGFR (02/21/2025 8:58 AM CDT) [facility] eGFR >90 >=60 mL/min/1. 73 m2 Comment: [...] MD LAB BLOOD ORDERABLES Fin al Result [facility] Department [place] [address] * (ABNORMAL) CBC without differential (02/21/2025 8:58 AM CDT) WBC 17.70(H) 3.80 - 9.90 K/cumm Hgb 13.5 11.9 - 15.5 g/dL [facility] Hct 40.8 35.6 - 45.5 % [facility] Plt 267 150 - 400 K/cumm [facility] MPV 9.4 9.1 - 12.3 fL [facility] RBC 4.49 3.90 - 5.20 M/cumm [facility] MCV 90.9 81.3 - 96.4 fL [facility] MCH 30.1 27.1 - 33.3 pg [facility] MCHC 33.1 32.3 - 35.7 g/dL [facility] RDW CV 14.6 11.1 - 14.9 % [facility] RDW SD 48.9(H) 35.7 - 48.1 fL [facility] NRBC abs 0.00 0.00 - 0.01 K/cumm [facility] Blood 02/21/2025 8:58 AM CDT 02/21/2025 9:11 AM CDT us Lexis Renteria MD LAB BLOOD ORDERABLES Fin al Result Performing Organization Address [facility] Co de Phone Number [facility] Department [place] [address] * (ABNORMAL) Basic metabolic panel (02/21/2025 8:58 AM CDT) [facility] Sodium 138 135 - 145 mmol/L Potassium, pl 3.5 3.3 - 4.9 mmol/L [facility] Chloride 102 97 - 110 mmol/L [facility] CO2 26 22 - 32 mmol/L [facility] Anion gap 10 2 - 15 mmol/L [facility] BUN 9 6 - 25 mg/dL [facility] Creatinine 0.70 0.60 - 1.10 mg/dL [facility] Glucose 240(H) 70 - 199 mg/dL [facility] Comment: Interpretive Data Fasting glucose >/= 126 [...] 2022. Calcium 9.0 8.5 - 10.3 mg/dL [facility] Blood 02/21/2025 8:58 AM CDT 02/21/2025 9:11 AM CDT us Lexis Renteria MD LAB BLOOD ORDERABLES Fin al Result Performing Organization Address [facility] Co de Phone Number [facility] Department [place] [address] * XR Chest 1 View (02/20/2025 1:55 [...] signed by: Jairo Claire M.D. Nathalie Rodriguez [employer]KEEP[employer]ICE SALES AGENT IMG XR PROCEDURES Final Resu lt * Respiratory pathogen panel Nasopharyngeal (02/20/2025 10:39 AM CDT) Influenza A RNA Not Detected Not Detected Influenza B RNA Not Detected Not Detected [facility] RSV RNA Not Detected Not Detected [facility] COVID-19 RNA Not Detected Not Detected [facility] Coronavirus 229E RNA Not Detected Not Detected [facility] Coronavirus HKU1 RNA Not Detected Not Detected [facility] Coronavirus NL63 RNA Not Detected Not Detected [facility] Coronavirus OC43 RNA Not Detected Not Detected [facility] Adenovirus DNA Not Detected Not Detected [facility] Metapneumovirus RNA Not Detected Not Detected [facility] Rhinovirus/Enterov irus RNA Not Detected Not Detected [facility] Parainfluenza 1 RNA Not Detected Not Detected [facility] Parainfluenza 2 RNA Not Detected Not Detected [facility] Parainfluenza 3 RNA Not Detected Not Detected [facility] Parainfluenza 4 RNA Not Detected Not Detected [facility] B. pertussis DNA Not Detected Not Detected [facility] B. parapertussis DNA Not Detected Not Detected [facility] C. pneumoniae DNA Not Detected Not Detected [facility] M. pneumoniae DNA Not Detected Not Detected [facility] Nasopharyngeal 02/20/2025 10 :39 AM CDT 02/20/2025 10:52 AM CDT Narrative [facility] - 02/20/2025 11:59 AM CDT Is the Patient experiencing symptoms consistent with COVID?->No Surveillance testing for transplant patient?->No Interpretive Data The [email or web address] FilmArray Respiratory Panel (RP2.1) assay is a [...] assay has FDA clearance for testing of BOOKKEEPING SERVICE SALES AGENT swabs. The performance of additional specimen types has been assessed by the performing laboratory. The performance characteristics of this assay have been determined by [facility] Molecular Infectious Disease Laboratory. Current interpretive data was last revised on 22. Nathalie Rodriguez [employer]OOKKEEPING SERVICE SALES AGENT LAB MICROBIOLOGY - GENERAL O RDERABLES Final Result [facility] Department [place] [address] * CT AN EMERGENT ENDOTRACHEAL AIRWAY, CT AN PROCEDURE PLACEHOLDER (02/19/2025 9:34 PM CDT) Narrative Tory Lazaro CRNA - 02/19/2025 9:34 PM CDT Tory Lazaro CRNA 02/19/2025 9:34 PM Airway Patient location: OR Urgency: emergent Indications for airway management: anesthesia Difficult airway: no Staff: Placed by: CAN SEALER: Tory Lazaro CRNA Emergent airway documentation: Patient [...] ur Straw Yellow Clarity, ur Clear Clear [facility] Specific gravity, ur >1.042(H) 1.003 - 1.030 [facility] pH, urine 6.5 [facility] Comment: Interpretive Data U rine pH is affected by diet, medications, systemic acid-base disturbances, and renal tubular function. pH may affect urinary stone formation. For example, urine pH below 6.0 may help reduce the tendency for calcium phosphate stones and pH greater than 6.0 may reduce the tendency for uric acid stone formation. Source: [email or web address] Current Interpretive Data was last revised on 2017 Protein, ur ql 1+(A) Negative [facility] Glucose, ur ql Negative Negative [facility] Ketones, ur Trace Negative [facility] Bilirubin, ur Negative Negative [facility] Blood, ur 2+(A) Negative [facility] Urobilinogen, ur <2.0 <2.0 mg/dL [facility] Nitrite, ur Negative Negative [facility] Leukocyte esterase, ur Trace(A) Negative [facility] UA reflex comment Reflex to microscopic UA will be performed. [facility] Urine, clean voided 02/19/2025 9:09 PM CDT 02/19/2025 9:24 PM CDT Lauren Haro MD LAB MICROBIOLOGY - GENE RAL ORDERABLES Final Result Performing Organization Address City/[facility]/ZIP Co de Phone Number [facility] Department [place] [address] * (ABNORMAL) Urinalysis, microscopic only (02/19/2025 9:09 PM CDT) WBC, ur 6-10(A) 0 - 5 /HPF RBC, ur 6-10(A) 0 - 2 /HPF [facility] Epithelial cells, squamous, ur 6-10(A) 0 - 5 /HPF [facility] Comment:Suggestive of contam ination. Consider recollection by clean catch. Mucous, ur Present(A) [facility] Culture Reflex Comment Reflex conditions for urine culture (WBC >10) not met. [facility] Urine, clean voided 02/19/2025 9:09 PM CDT 02/19/2025 9:24 PM CDT Lauren Haro MD LAB URINE ORDERABLES Fi nal Result Performing Organization Address City/[facility]/ZIP Co de Phone Number [facility] Department [place] [address] * Check Sample (02/19/2025 9:01 PM CDT) ABO Rh A Positive [facility] OTHER 02/19/2025 9:01 PM CDT 02/19/2025 9:10 PM CDT Magalie Archibald MD LAB BLOOD ORDERABLES Final Result Performing Organization Address City/[facility]/ZIP Co de Phone Number [facility] Department [place] [address] [facility] * CT Body Outside Consult (02/19/2025 8:43 [...] images may or may not represent the [place] source data set and thus may contain [...] IMAGING STUDY STUDY INITIALLY PERFORMED: 02/19/2025 at [facility]. TYPE OF STUDY: Multiple CT images of [...] IMAGING STUDY STUDY INITIALLY PERFORMED: 02/19/2025 at [facility]. TYPE OF STUDY: Multiple CT images of [...] images may or may not represent the [place] source data set and thus may contain changes that may lower the accuracy of this second-opinion interpretation. Dictated by: Mo Oreilly MD The radiology attending physician has personally reviewed this study, and had reviewed and/or edited this written report and agrees with it. Electronically signed by: Anastasia Braswell M.D. Lauren Haro MD IMG CT PROCEDURES Final Result * CT CRITICAL CARE ILL/INJURED PATIENT INIT 30-74 MIN [...] MD LAB BLOOD ORDERABLES Fi nal Result [facility] [place] [address] * (ABNORMAL) Differential, auto (02/19/2025 8:20 PM CDT) Neutrophil abs 27.04(H) 1.50 - 6.50 K/cumm Imm gran abs 0.24(H) 0.00 - 0.10 K/cumm [facility] Lymphocyte abs 2.60 0.80 - 3.30 K/cumm [facility] Monocyte abs 1.73(H) 0.20 - 0.80 K/cumm [facility] Eosinophil abs 0.03 0.00 - 0.50 K/cumm [facility] Basophil abs 0.11(H) 0.00 - 0.10 K/cumm [facility] Neutrophil pct 85.2 % [facility] Comment: Interpretive Data Percent cell count reference ranges are not reported, since discordance with absolute values may lead to misinterpretation of CBC data. Current Interpretive Data was last revised on 2018. Imm gran pct 0.8 % [facility] Comment: Interpretive Data Percent cell count reference ranges are not reported, since discordance with absolute values may lead to misinterpretation of CBC data. Current Interpretive Data was last revised on 2018. Lymphocyte pct 8.2 % [facility] Comment: Interpretive Data Percent cell count reference ranges are not reported, since discordance with absolute values may lead to misinterpretation of CBC data. Current Interpretive Data was last revised on 2018. Monocyte pct 5.4 % [facility] Comment: Interpretive Data Percent cell count reference ranges are not reported, since discordance with absolute values may lead to misinterpretation of CBC data. Current Interpretive Data was last revised on 2018. Eosinophil pct 0.1 % [facility] Comment: Interpretive Data Percent cell count reference ranges are not reported, since discordance with absolute values may lead to misinterpretation of CBC data. Current Interpretive Data was last revised on 2018. Basophil pct 0.3 % [facility] Comment: Interpretive Data Percent cell count reference ranges are not reported, since discordance with absolute values may lead to misinterpretation of CBC data. Current Interpretive Data was last revised on 2018. Blood 02/19/2025 8:20 PM CDT 02/19/2025 8:36 PM CDT us Lauren Haro MD LAB BLOOD ORDERABLES Fi nal Result [facility] Department [place] [address] * (ABNORMAL) CBC with auto differential (02/19/2025 8:20 PM CDT) [facility] WBC 31.75(H) 3.80 - 9.90 K/cumm Hgb 15.1 11.9 - 15.5 g/dL [facility] Hct 44.4 35.6 - 45.5 % [facility] Plt 339 150 - 400 K/cumm [facility] MPV 9.3 9.1 - 12.3 fL [facility] RBC 4.92 3.90 - 5.20 M/cumm [facility] MCV 90.2 81.3 - 96.4 fL [facility] MCH 30.7 27.1 - 33.3 pg [facility] MCHC 34.0 32.3 - 35.7 g/dL [facility] RDW CV 14.5 11.1 - 14.9 % [facility] RDW SD 47.8 35.7 - 48.1 fL [facility] NRBC abs 0.00 0.00 - 0.01 K/cumm [facility] Blood 02/19/2025 8:20 PM CDT 02/19/2025 8:36 PM CDT Lauren Haro MD LAB BLOOD ORDERABLES Fi nal Result Performing Organization Address City/[facility] Co de Phone Number [facility] Department [place] [address] * aPTT (02/19/2025 8:20 PM CDT) [facility] aPTT 28 28 - 38 sec Comment: Interpretive Data Heparin therapeutic range: 66.0 - 100.0 seconds. Range based on correlation with therapeutic heparin activity range of 0.3 - 0.7 Units/mL. Current interpretive data was last revised on 2023. Blood 02/19/2025 8:20 PM CDT 02/19/2025 8:39 PM CDT Lauren Haro MD LAB BLOOD ORDERABLES Fi nal Result [facility] [place] [address] * Protime-INR (02/19/2025 8:20 PM CDT) Pathologist [facility] PT 11.8 9.7 - 13.0 sec INR 1.09 0.90 - 1.20 [facility] Comment: Interpretive data Oral anticoagulant therapeutic ranges: Venous thromboembolism prophylaxis or treatment: 2.0-3.0 CARDIOLOGY Standard range: 2.0-3.0 High-intensity range: 2.5-3.5 Refer to indication-specific guidelines for appropriate target ranges for prosthetic heart valve replacement. Current interpretive data was last revised on 2019. Blood 02/19/2025 8:20 PM CDT 02/19/2025 8:39 PM CDT Lauren Haro MD LAB BLOOD ORDERABLES Fi nal Result Performing Organization Address City/[facility]/ZIP Co de Phone Number [facility] [place] [address] * Type and screen (02/19/2025 8:20 PM CDT) Pathologist [facility] [place]he[place], indirect Negative ABO Rh A Positive [facility] Blood 02/19/2025 8:20 PM CDT 02/19/2025 8:33 PM CDT Narrative [facility] - 02/19/2025 9:26 PM CDT Has the patient had Daratumumab or Isatuximab in the past 6 months?->Unknown Lauren Haro MD LAB BLOOD BANK TEST ORD ERABLES Final Result [facility] [place] [address] * Creatine kinase (CK), total (02/19/2025 8:20 PM CDT) Pathologist [facility] CK 61 30 - 200 Units/L Comment:Hemolyzed; result ma y be falsely elevated Blood 02/19/2025 8:20 PM CDT 02/19/2025 8:35 PM CDT Magalie Archibald MD LAB BLOOD ORDERABLES Final Result [facility] Department [place] [address] * (ABNORMAL) Comprehensive metabolic panel (02/19/2025 8:20 PM CDT) Sodium 138 135 - 145 mmol/L Potassium, pl 4.4 3.3 - 4.9 mmol/L [facility] Comment:Hemolyzed; Potassium value may be falsely elevated by as much as 0.6-1.0 mmol/L. Suggest redraw and reanalysis. Chloride 102 97 - 110 mmol/L [facility] CO2 22 22 - 32 mmol/L [facility] Anion gap 14 2 - 15 mmol/L [facility] BUN 9 6 - 25 mg/dL [facility] Creatinine 0.69 0.60 - 1.10 mg/dL [facility] Glucose 137 70 - 199 mg/dL [facility] Comment: Interpretive Data Fasting glucose >/= 126 [...] 2022. Calcium 9.1 8.5 - 10.3 mg/dL [facility] Bilirubin, total 0.4 0.1 - 1.2 mg/dL [facility] Protein, pl 7.9 6.5 - 8.5 g/dL [facility] Albumin 4.2 3.5 - 5.0 g/dL [facility] Alk phos 85 40 - 130 Units/L [facility] ALT 32 7 - 45 Units/[facility] AST 47(H) 10 - 45 Units/L [facility] Comment:Hemolyzed; result ma y be falsely elevated Blood 02/19/2025 8:20 PM CDT 02/19/2025 8:35 PM CDT Lauren Haro MD LAB BLOOD ORDERABLES Fi nal Result Performing Organization Address City/State/[facility] Co de Phone Number [facility] [place] [address] from Last 3 Months Insurance Social Project Social Project Advance Directives For more information, please contact: [phone] * Full Code (Latest Code Status on File) Date Activated Date Inactivated Comments 02/20/2025 12:42 AM 02/27/2025 1:57 PM Care Teams Financial Aid Counselor Relationship Specialty Start Date End Date Cody Roper DO [address] [place] [id number] PCP - General Family Medicine 07/02/19 David Bell MD [address] [place] [address] Medical Oncologist/Property Investor Hematology and Oncology 06/11/20
== END 2025-03-17 14:35 | disposition home or self-care (01) ==
PROVIDERS: Visit Provider Urology
DX: N20.0 Calculus of kidney (principal)
CPT/HCPCS: 74018

== ENCOUNTER 2025-04-10 15:33 | Emergency (ER) | payer BC, SELFPAY ==
--- NOTE | ~2025-04-10 | US_ITS ---
RIGHT UPPER EXTREMITY VENOUS ULTRASOUND Ordering provider: Beatriz Martell PA-C History: . pain, swelling . Comparison: None. FINDINGS: --JUGULAR: Patent and free of thrombus. Normal compressibility, phasic flow and augmentation. --SUBCLAVIAN: Patent and free of thrombus. Normal compressibility, phasic flow and augmentation. --AXILLARY: Patent and free of thrombus. Normal compressibility, phasic flow and augmentation. --BRACHIAL: Patent and free of thrombus. Normal compressibility, phasic flow and augmentation. --CEPHALIC: Patent and free of thrombus. Normal compressibility, phasic flow and augmentation. --BASILIC: Patent and free of thrombus. Normal compressibility, phasic flow and augmentation. --RADIAL: Patent and free of thrombus. Normal compressibility, phasic flow and augmentation. --ULNAR: Patent and free of thrombus. Normal compressibility, phasic flow and augmentation. IMPRESSION: Negative right upper extremity venous US. No deep vein thrombosis. Reviewed, dictated and finalized at location A.
--- NOTE | ~2025-04-10 | XR_ITS ---
HISTORY: pain, swelling COMPARISON: None TECHNIQUE: 3 views of the wrist were performed. FINDINGS: No acute fracture is identified. The carpal arcs are intact. Mild radiocarpal joint space narrowing with sclerosis of the distal radius is present. The remaining visualized joint spaces are otherwise preserved. Bone mineralization is unremarkable. No significant soft tissue swelling is noted. No radiopaque foreign body is identified. IMPRESSION: Degenerative disease, without acute fracture. Reviewed, dictated and finalized at location A.
[2025-04-10 15:35] VITALS: BP 171/91; PULSE 86; RESP 18; TEMP 36.6; O2SAT 99
--- OUTSIDE RECORDS SUMMARY | 2025-04-10 15:36 | XMS_ITS | Clinical Summary ---
Author Organization [facility] Address [address] [place] [address] Care Team Providers Care Needle Process Felt Goods Supervisor Name Role Phone Cody Roper DO Primary Care Provider David Bell MD Unavailable [phone] Allergies No known active allergies Medications traZODone (DESYREL) 50 mg tablet Take 1 tablet (50 mg total) by mouth nightly at bedtime. 0 05/20/20 19 Active piroxicam (FELDENE) 20 mg capsule Take by mouth daily 3 06/20/20 19 Active montelukast (SINGULAIR) 10 mg tablet Take 1 tablet (10 mg total) by mouth every evening 3 06/11/20 19 Active metFORMIN XR (GLUCOPHAGE XR) 500 mg 24 hr tablet Take by mouth 2 (two) times a day with meals 11 05/24/20 19 Active DULERA 200-5 mcg/actuation inhaler TAKE 2 PUFFS BY MOUTH TWICE A DAY 3 06/11/20 19 Active gabapentin (NEURONTIN) 300 mg capsule 2 capsules (600 mg total) 3 (three) times a day 11 05/24/20 [...] (three) times a day as needed 09/02/20 Active Advair Diskus 250-50 mcg/dose diskus inhaler TAKE 1 PUFF BY MOUTH TWICE A DAY 08/03/20 Active hydrocortisone (ANUSOL-HC) 2.5 % rectal cream 10/17/20 Active nabumetone (RELAFEN) 750 mg tablet Take 1 tablet (750 mg total) by mouth 2 (two) times a day 09/02/20 Active diazePAM (VALIUM) 10 mg tabletIndications :Sedation,anxiety Take 1 tablet 1 hour before procedure. 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 2 tablet 11/30/19 23 [...] by mouth nightly 30 tablet 02/27/20 25 Active bacitracin 500 unit/gram ointment Apply topically [...] by mouth nightly 30 capsule 03/04/20 25 Active pregabalin (LYRICA) 75 mg capsule Take 1 capsule (75 mg total) by mouth 2 (two) times a day 60 capsule 03/13/20 25 025 Active diclofenac sodium (VOLTAREN) 1 % gel Apply 2 g topically 4 (four) times a day 100 g 03/13/20 25 Active HYDROcodone-aceta minophen (NORCO) 5-325 mg per tabletIndications :Pain Take 1 tablet by mouth every 6 (six) hours as needed for pain 15 tablet 03/13/20 Active naloxone (NARCAN) 4 mg/actuation spray,non-aerosol Administer 1 spray into affected nostril(s) as needed for opioid reversal or respiratory depression Call 911. Administer a single spray in one nostril. Repeat every 3 minutes as needed if no or minimal response. 4 each 03/13/20 Active pregabalin (LYRICA) 75 mg capsule Take 1 capsule (75 mg total) by mouth 2 (two) times a day 60 capsule 02/27/20 25 025 Discontinu ed(Reorder ) sulfamethoxazole- trimethoprim (BACTRIM DS) 800-160 mg per tablet Take 2 tablets (320 mg of trimethoprim total) by mouth 2 (two) times a day for 7 days 28 tablet 03/13/20 25 025 Active Problems Problem Noted Date [...] Encounters Date Type Department Care Team Description 04/01/2025 2:00 PM CDT Office Visit [facility] Surgery [address] [place] [address] Medical Office Building 1 [place] [address] Shanta Hernandes PA 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) 03/13/2025 12:45 PM CDT Office Visit [facility] Surgery [address] [place] [address] Medical Office Building 1 [place] [address] Lexis Renteria MD 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) 03/12/2025 Orders Only [facility] Surgery [id number] [place] [address] [address] Medical Office Building 1 [place] [phone] Lexis Renteria MD 03/12/2025 Orders Only [facility] Surgery [address] [place] [address] [address] Medical Office Building 1 [place] [phone] Karina Shrama RMA 03/04/2025 2:45 PM CDT Office Visit [facility] Surgery [address] [place] [address] Advanced Medicine 6th [place] [address] Josiane Oliveira NP 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 02/26/2025 8:15 AM CDT Anesthesia Event [facility] [address] [place] [id number] Brandon Reyes MD 02/26/2025 8:00 AM CDT - 02/26/2025 10:00 AM CDT Surgery [facility] [address] [place] [address] Lexis Renteria MD RIGHT FOREARM SECONDARY CLOSURE OF SURGICAL WOUND 02/25/2025 Telephone [facility] Surgery [address] [place] [address] Advanced Medicine 6th [place] [address] Shweta Perry RN 02/19/2025 9:35 PM CDT - 02/19/2025 11:35 PM CDT Surgery [facility] Operating Room [address] [place] [address] Lexis Renteria MD FASCIOTOMY 02/19/2025 9:10 PM CDT Anesthesia Event [facility] Operating Room [address] [place] [id number] Palomo Jaramillo MD Bharadwaj, Amy Robles MD 02/19/2025 8:03 PM CDT - 02/27/2025 9:51 AM CDT Hospital Encounter [facility] 1 [facility] [place] [address] Magalie Archibald MD Currie, Lexis Galeano MD Non-traumatic compartment syndrome of right upper [...] = 0.6 oz pur e alcohol) rare [facility] Utilities Answer Date Recorded In the past 12 months has e electric, gas, oil, or water company threatened [...] often do you attend chur ch or sikh services? Never 02/25/2025 Do you belong to any clubs o r organizations such as anglican groups, unions, fraternal or athletic groups, or [...] any time in the past 12 m [facility], were you homeless or living in a usp (including now)? No 02/25/2025 Personal Safety Answer [...] Diagnosis Comments POCT GLUCOSE DEVICE Routine 02/26/2025 9:34 AM CDT ANESTHESIA INTUBATION Routine 02/26/2025 8:31 [...] PATHOGEN PANEL Routine 02/20/2025 10:39 AM CDT [place] AN PROCEDURE PLACEHOLDER Routine 02/19/2025 9:34 PM CDT [place] AN EMERGENT ENDOTRACHEAL AIRWAY Routine 02/19/2025 9:34 PM CDT RELEASE MEDIAN NERVE 02/19/2025 9:17 PM CDT 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 Case Notes [facility] [phone] @ 2032 RELEASE GUYONS CANAL 02/19/2025 9:17 PM CDT 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 Case Notes [facility] [phone] @ 2032 RELEASE CARPAL TUNNEL 02/19/2025 9:17 PM CDT 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 Case Notes [facility] [phone] @ 2032 FASCIOTOMY 02/19/2025 9:17 PM CDT 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 Case Notes [facility] [phone] @ 2032 POCT HCG, URINE Routine 02/19/2025 9:10 PM CDT URINALYSIS, MICROSCOPIC ONLY STAT 02/19/2025 9:09 PM CDT URINALYSIS AND REFLEX TO MICROSCOPIC AND CULTURE STAT 02/19/2025 9:09 PM CDT B CHECK SAMPLE STAT 02/19/2025 9:[address] BODY OUTSIDE CONSULT Routine 02/19/2025 8:43 PM CDT [place] CRITICAL CARE ILL/INJURED PATIENT INIT 30-74 MIN [...] POCT ORDERABLES - DE VICE Final Result [facility] [place] [address] * Airway (02/26/2025 8:31 AM CDT) Narrative [...] DE VICE Final Result Performing Organization Address [facility]/ZIP Co de Phone Number [facility] [place] [address] * Type and screen (02/26/2025 7:47 AM CDT) ABO Rh A Positive Ashely, indirect Negative [facility] Blood 02/26/2025 7:47 AM CDT 02/26/2025 8:09 AM CDT Narrative [facility] - 02/26/2025 9:00 AM CDT Has the patient had Daratumumab or Isatuximab in the past 6 months?->Unknown Brandon Reyes MD LAB BLOOD BANK TEST ORD ERABLES Final Result [facility] [place] [address] * eGFR (02/25/2025 9:31 PM CDT) [facility] eGFR >90 >=60 mL/min/1. 73 m2 Comment: [...] MD LAB BLOOD ORDERABLES Fin al Result [facility] [address] [facility] [place] [address] * (ABNORMAL) CBC without differential (02/25/2025 9:31 PM CDT) [facility] WBC 14.05(H) 3.80 - 9.90 K/cumm Hgb 13.5 11.9 - 15.5 g/dL [facility] Hct 41.7 35.6 - 45.5 % [facility] Plt 286 150 - 400 K/cumm [facility] MPV 9.5 9.1 - 12.3 fL [facility] RBC 4.50 3.90 - 5.20 M/cumm [facility] MCV 92.7 81.3 - 96.4 fL [facility] MCH 30.0 27.1 - 33.3 pg [facility] MCHC 32.4 32.3 - 35.7 g/dL [facility] RDW CV 14.4 11.1 - 14.9 % [facility] RDW SD 48.6(H) 35.7 - 48.1 fL [facility] NRBC abs 0.00 0.00 - 0.01 K/cumm [facility] Blood 02/25/2025 9:31 PM CDT 02/25/2025 10:13 PM CDT us Lexis Renteria MD LAB BLOOD ORDERABLES Fin al Result [facility] [address] [facility] [place] [address] * Basic metabolic panel (02/25/2025 9:31 PM CDT) Sodium 139 135 - 145 mmol/L Potassium, pl 4.3 3.3 - 4.9 mmol/L [facility] Chloride 103 97 - 110 mmol/L [facility] CO2 26 22 - 32 mmol/L [facility] Anion gap 10 2 - 15 mmol/L [facility] BUN 12 6 - 25 mg/dL [facility] Creatinine 0.69 0.60 - 1.10 mg/dL [facility] Glucose 133 70 - 199 mg/dL [facility] Comment: Interpretive Data Fasting glucose [...] 2022. Calcium 9.1 8.5 - 10.3 mg/dL [facility] Blood 02/25/2025 9:31 PM CDT 02/25/2025 10:12 PM CDT us Lexis Renteria MD LAB BLOOD ORDERABLES Fin al Result Performing Organization Address [facility] Co de Phone Number [facility] Department [place] [address] * (ABNORMAL) Hemoglobin A1c (02/24/2025 9:50 AM CDT) Hgb A1C 6.3(H) 4.0 - 5.6 % Estimated Average Glucose 134 mg/dL [facility] Comment: The ADA recommends reporting [...] ORDERABLES Fin al Result Performing Organization Address [facility] Co de Phone Number [facility] [place] [address] * eGFR (02/21/2025 8:58 AM CDT) eGFR [...] Inclusion of Race in Diagnosing Kidney Disease, KETURAH 2020). The CKD-EPI equation should not be used for patients with unstable renal function and has not been validated in children and those over 70. Current interpretive data was last reviewed 2021. Blood 02/21/2025 8:58 AM CDT 02/21/2025 9:11 AM CDT us Lexis Renteria MD LAB BLOOD ORDERABLES Fin al Result Performing Organization Address City/[facility]/ZIP Co de Phone Number [facility] [place] [address] * (ABNORMAL) CBC without differential (02/21/2025 8:58 AM CDT) WBC 17.70(H) 3.80 - 9.90 K/cumm Hgb 13.5 11.9 - 15.5 g/dL [facility] Hct 40.8 35.6 - 45.5 % [facility] Plt 267 150 - 400 K/cumm [facility] MPV 9.4 9.1 - 12.3 fL [facility] RBC 4.49 3.90 - 5.20 M/cumm [facility] MCV 90.9 81.3 - 96.4 fL [facility] MCH 30.1 27.1 - 33.3 pg [facility] MCHC 33.1 32.3 - 35.7 g/dL [facility] RDW CV 14.6 11.1 - 14.9 % [facility] RDW SD 48.9(H) 35.7 - 48.1 fL [facility] NRBC abs 0.00 0.00 - 0.01 K/cumm [facility] Blood 02/21/2025 8:58 AM CDT 02/21/2025 9:11 AM CDT us Lexis Renteria MD LAB BLOOD ORDERABLES Fin al Result Performing Organization Address City/[facility]/ZIP Co de Phone Number [facility] Department [place] [address] * (ABNORMAL) Basic metabolic panel (02/21/2025 8:58 AM CDT) Sodium 138 135 - 145 mmol/L Potassium, pl 3.5 3.3 - 4.9 mmol/L [facility] Chloride 102 97 - 110 mmol/L [facility] CO2 26 22 - 32 mmol/L [facility] Anion gap 10 2 - 15 mmol/L [facility] BUN 9 6 - 25 mg/dL [facility] Creatinine 0.70 0.60 - 1.10 mg/dL [facility] Glucose 240(H) 70 - 199 mg/dL [facility] Comment: Interpretive Data Fasting glucose [...] 2022. Calcium 9.0 8.5 - 10.3 mg/dL [facility] Blood 02/21/2025 8:58 AM CDT 02/21/2025 9:11 AM CDT us Lexis Renteria MD LAB BLOOD ORDERABLES Fin al Result [facility] [address] [facility] Department [place] [address] * XR Chest 1 View (02/20/2025 1:55 [...] signed by: Jairo Claire M.D. Nathalie Rodriguez PUBLIC HEALTH REPRESENTATIVE IMG XR PROCEDURES Final Resu lt * Respiratory pathogen panel Nasopharyngeal (02/20/2025 10:39 AM CDT) Influenza A RNA Not Detected Not Detected Influenza B RNA Not Detected Not Detected [facility] RSV RNA Not Detected Not Detected [facility] COVID-19 RNA Not Detected Not Detected [facility] Coronavirus 229E RNA Not Detected Not Detected [facility] Coronavirus HKU1 RNA Not Detected Not Detected [facility] Coronavirus NL63 RNA Not Detected Not Detected [facility] Coronavirus OC43 RNA Not Detected Not Detected [facility] Adenovirus DNA Not Detected Not Detected [facility] Metapneumovirus RNA Not Detected Not Detected [facility] Rhinovirus/Enterov irus RNA Not Detected Not Detected [facility] Parainfluenza 1 RNA Not Detected Not Detected [facility] Parainfluenza 2 RNA Not Detected Not Detected [facility] Parainfluenza 3 RNA Not Detected Not Detected [facility] Parainfluenza 4 RNA Not Detected Not Detected [facility] B. pertussis DNA Not Detected Not Detected [facility] B. parapertussis DNA Not Detected Not Detected [facility] C. pneumoniae DNA Not Detected Not Detected [facility] M. pneumoniae DNA Not Detected Not Detected [facility] Nasopharyngeal 02/20/2025 10 :39 AM CDT 02/20/2025 10:52 AM CDT [facility]ative [facility] - 02/20/2025 11:59 AM CDT Is the Patient experiencing symptoms consistent with COVID?->No Surveillance testing for transplant patient?->No Interpretive Data The [employer] Film[employer] Respiratory Panel (RP2.1) assay is a [...] assay has FDA clearance for testing of PUBLIC HEALTH REPRESENTATIVE swabs. The performance of additional specimen types has been assessed by the performing laboratory. The performance characteristics of this assay have been determined by [facility] Molecular Infectious Disease Laboratory. Current interpretive data was last revised on 22. us Nathalie Rodriguez PUBLIC HEALTH REPRESENTATIVE LAB MICROBIOLOGY - GENERAL O RDERABLES Final Result [facility] Department [place] [address] * [place] AN EMERGENT ENDOTRACHEAL AIRWAY, [place] AN PROCEDURE PLACEHOLDER (02/19/2025 9:34 PM CDT) Narrative Tory Lazaro CRNA - 02/19/2025 9:34 PM CDT Tory Lazaro CRNA 02/19/2025 9:34 PM Airway Patient location: OR Urgency: emergent Indications for airway management: anesthesia Difficult airway: no Staff: Placed by: CHEPE: Tory Lazaro CRNA Emergent airway documentation: Patient [...] ur Straw Yellow Clarity, ur Clear Clear [facility] Specific gravity, ur >1.042(H) 1.003 - 1.030 [facility] pH, urine 6.5 [facility] Comment: Interpretive Data U rine pH is affected by diet, medications, systemic acid-base disturbances, and renal tubular function. pH may affect urinary stone formation. For example, urine pH below 6.0 may help reduce the tendency for calcium phosphate stones and pH greater than 6.0 may reduce the tendency for uric acid stone formation. Source: [facility] Current Interpretive Data was last revised on 2017 Protein, ur ql 1+(A) Negative [facility] Glucose, ur ql Negative Negative [facility] Ketones, ur Trace Negative [facility] Bilirubin, ur Negative Negative [facility] Blood, ur 2+(A) Negative [facility] Urobilinogen, ur <2.0 <2.0 mg/dL [facility] Nitrite, ur Negative Negative [facility] Leukocyte esterase, ur Trace(A) Negative [facility] UA reflex comment Reflex to microscopic UA will be performed. [facility] Urine, clean voided 02/19/2025 9:09 PM CDT 02/19/2025 9:24 PM CDT Lauren Haro MD LAB MICROBIOLOGY - GENE RAL ORDERABLES Final Result [facility] Department [place] [address] * (ABNORMAL) Urinalysis, microscopic only (02/19/2025 9:09 PM CDT) WBC, ur 6-10(A) 0 - 5 /HPF RBC, ur 6-10(A) 0 - 2 /HPF [facility] Epithelial cells, squamous, ur 6-10(A) 0 - 5 /HPF [facility] Comment:Suggestive of contam ination. Consider recollection by clean catch. Mucous, ur Present(A) [facility] Culture Reflex Comment Reflex conditions for urine culture (WBC >10) not met. [facility] Urine, clean voided 02/19/2025 9:09 PM CDT 02/19/2025 9:24 PM CDT Lauren Haro MD LAB URINE ORDERABLES Fi nal Result Performing Organization Address [facility] Co de Phone Number [facility] [place] [address] * Check Sample (02/19/2025 9:01 PM CDT) ABO Rh A Positive [facility] HCLL OTHER 02/19/2025 9:01 PM CDT 02/19/2025 9:10 PM CDT us Magalie Archibald MD LAB BLOOD ORDERABLES Final Result Performing Organization Address [facility] Co de Phone Number [facility] [place] [address] [facility] * CT Body Outside Consult (02/19/2025 [...] images may or may not represent the [place] source data set and thus may contain [...] IMAGING STUDY STUDY INITIALLY PERFORMED: 02/19/2025 at [facility]. TYPE OF STUDY: Multiple CT images [...] IMAGING STUDY STUDY INITIALLY PERFORMED: 02/19/2025 at [facility]. TYPE OF STUDY: Multiple CT images [...] images may or may not represent the [place] source data set and thus may contain changes that may lower the accuracy of this second-opinion interpretation. Dictated by: Mo Oreilly MD The radiology attending physician has personally reviewed this study, and had reviewed and/or edited this written report and agrees with it. Electronically signed by: Anastasia Braswell M.D. us Lauren Haro MD IMG CT PROCEDURES Final Result * [place] CRITICAL CARE ILL/INJURED PATIENT INIT 30-74 MIN [...] MD LAB BLOOD ORDERABLES Fi nal Result [facility] [place] [address] * (ABNORMAL) Differential, auto (02/19/2025 8:20 PM CDT) Neutrophil abs 27.04(H) 1.50 - 6.50 K/cumm Imm gran abs 0.24(H) 0.00 - 0.10 K/cumm [facility] Lymphocyte abs 2.60 0.80 - 3.30 K/cumm [facility] Monocyte abs 1.73(H) 0.20 - 0.80 K/cumm [facility] Eosinophil abs 0.03 0.00 - 0.50 K/cumm [facility] Basophil abs 0.11(H) 0.00 - 0.10 K/cumm [facility] Neutrophil pct 85.2 % [facility] Comment: Interpretive Data Percent cell count reference ranges are not reported, since discordance with absolute values may lead to misinterpretation of CBC data. Current Interpretive Data was last revised on 2018. Imm gran pct 0.8 % [facility] Comment: Interpretive Data Percent cell count reference ranges are not reported, since discordance with absolute values may lead to misinterpretation of CBC data. Current Interpretive Data was last revised on 2018. Lymphocyte pct 8.2 % [facility] Comment: Interpretive Data Percent cell count reference ranges are not reported, since discordance with absolute values may lead to misinterpretation of CBC data. Current Interpretive Data was last revised on 2018. Monocyte pct 5.4 % [facility] Comment: Interpretive Data Percent cell count reference ranges are not reported, since discordance with absolute values may lead to misinterpretation of CBC data. Current Interpretive Data was last revised on 2018. Eosinophil pct 0.1 % [facility] Comment: Interpretive Data Percent cell count reference ranges are not reported, since discordance with absolute values may lead to misinterpretation of CBC data. Current Interpretive Data was last revised on 2018. Basophil pct 0.3 % [facility] Comment: Interpretive Data Percent cell count reference ranges are not reported, since discordance with absolute values may lead to misinterpretation of CBC data. Current Interpretive Data was last revised on 2018. Blood 02/19/2025 8:20 PM CDT 02/19/2025 8:36 PM CDT us Lauren Haro MD LAB BLOOD ORDERABLES nal Result [facility] [place] [address] * (ABNORMAL) CBC with auto differential (02/19/2025 8:20 PM CDT) WBC 31.75(H) 3.80 - 9.90 K/cumm Hgb 15.1 11.9 - 15.5 g/dL [facility] Hct 44.4 35.6 - 45.5 % [facility] Plt 339 150 - 400 K/cumm [facility] MPV 9.3 9.1 - 12.3 fL [facility] RBC 4.92 3.90 - 5.20 M/cumm [facility] MCV 90.2 81.3 - 96.4 fL [facility] MCH 30.7 27.1 - 33.3 pg [facility] MCHC 34.0 32.3 - 35.7 g/dL [facility] RDW CV 14.5 11.1 - 14.9 % [facility] RDW SD 47.8 35.7 - 48.1 fL [facility] NRBC abs 0.00 0.00 - 0.01 K/cumm [facility] Blood 02/19/2025 8:20 PM CDT 02/19/2025 8:36 PM CDT Lauren Haro MD LAB BLOOD ORDERABLES nal Result Performing Organization Address [facility] de Phone Number [facility] [place] [address] * aPTT (02/19/2025 8:20 PM CDT) aPTT [...] ORDERABLES Fi nal Result Performing Organization Address [facility] Co de Phone Number [facility] [place] [address] * Protime-INR (02/19/2025 8:20 PM CDT) PT 11.8 9.7 - 13.0 sec INR 1.09 0.90 - 1.20 [facility] Comment: Interpretive data Oral anticoagulant [...] ORDERABLES Fi nal Result Performing Organization Address [facility]/[place] [address] * Type and screen (02/19/2025 8:20 PM CDT) Asehly, indirect Negative ABO Rh A Positive [facility] Blood 02/19/2025 8:20 PM CDT 02/19/2025 8:33 PM CDT Narrative [facility] - 02/19/2025 9:26 PM CDT Has the patient had Daratumumab or Isatuximab in the past 6 months?->Unknown Lauren Haro MD LAB BLOOD BANK TEST ORD ERABLES Final Result Performing Organization Address [facility] [place] [address] * Creatine kinase (CK), total (02/19/2025 8:20 PM CDT) CK 61 30 - 200 Units/L Comment:Hemolyzed; result ma y be falsely elevated Blood 02/19/2025 8:20 PM CDT 02/19/2025 8:35 PM CDT Magalie Archibald MD LAB BLOOD ORDERABLES Final Result Performing Organization Address City/[facility] Co de Phone Number [facility] Department [place] [address] * (ABNORMAL) Comprehensive metabolic panel (02/19/2025 8:20 PM CDT) Sodium 138 135 - 145 mmol/L Potassium, pl 4.4 3.3 - 4.9 mmol/L [facility] Comment:Hemolyzed; Potassium value may be falsely elevated by as much as 0.6-1.0 mmol/L. Suggest redraw and reanalysis. Chloride 102 97 - 110 mmol/L [facility] CO2 22 22 - 32 mmol/L [facility] Anion gap 14 2 - 15 mmol/L [facility] BUN 9 6 - 25 mg/dL [facility] Creatinine 0.69 0.60 - 1.10 mg/dL [facility] Glucose 137 70 - 199 mg/dL [facility] Comment: Interpretive Data Fasting glucose >/= [...] Calcium 9.1 8.5 - 10.3 mg/dL [facility] Bilirubin, total 0.4 0.1 - 1.2 mg/dL [facility] Protein, pl 7.9 6.5 - 8.5 g/dL [facility] Albumin 4.2 3.5 - 5.0 g/dL [facility] Alk phos 85 40 - 130 Units/L [facility] ALT 32 7 - 45 Units/L [facility] AST 47(H) 10 - 45 Units/L [facility] Comment:Hemolyzed; result ma y be falsely elevated Blood 02/19/2025 8:20 PM CDT 02/19/2025 8:35 PM CDT us Lauren Haro MD LAB BLOOD ORDERABLES Fi nal Result [facility] [place] [address] from Last 3 Months Insurance Consert Consert Advance Directives For more information, please contact: [phone] * Full Code (Latest Code Status on File) Date Activated Date Inactivated Comments 02/20/2025 12:42 AM 02/27/2025 1:57 PM Care Teams Needle Process F[employer] Goods Supervisor Relationship Specialty Start Date End Date Cody Roper DO [address] [place] [address] PCP - General Family Medicine 07/02/19 David Bell MD [address] [place] [address] Medical Oncologist/Market Analyst Hematology and Oncology 06/11/20
--- OUTSIDE RECORDS SUMMARY | 2025-04-10 15:36 | XMS_ITS | Referral Summary ---
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) 03/13/2025 12:45 PM CDT Office Visit [facility] Surgery [address] [place] [address] Medical Office Building [address] [place] [phone] Lexis Renteria MD 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) 03/12/2025 Orders Only [facility] Surgery [address] [place] [address] Medical Office Building [address] [place] [phone] Lexis Renteria MD 03/12/2025 Orders Only [facility] Surgery [address] [place] [address] Medical Office Building [address] [place] [phone] Karina Sharma RMA 03/04/2025 2:45 PM CDT Office Visit [facility] Surgery [address] [place] [address] 6th [place] [phone] Josiane Oliveira NP 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 02/19/2025 8:03 PM CDT - 02/27/2025 9:51 AM CDT Hospital Encounter [address] [phone] Magalie Archibald MD Currie, Kelly Bettina, MD 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); Acute postoperative pain; Compartment syndrome of forearm Discharge Disposition: Discharge to home or self care 02/26/2025 8:00 AM CDT - 02/26/2025 10:00 AM CDT Surgery [facility] Operating Room [facility] ([facility]) [address] [place] [address] Lexis Renteria MD RIGHT FOREARM SECONDARY CLOSURE OF SURGICAL WOUND 02/26/2025 8:15 AM CDT Anesthesia Event [facility] Operating Room [facility] ([facility]) [address] [place] [id number] Brandon Reyes MD 02/25/2025 Telephone [facility] Surgery [address] [place] [address] Advanced Medicine 6th [place] [phone] Shweta Perry RN 02/19/2025 9:10 PM CDT Anesthesia Event [facility] Operating Room [address] [place] [phone] Palomo Jaramillo MD Bharadwaj, Amy Robles MD 02/19/2025 9:35 PM CDT - 02/19/2025 11:35 PM CDT Surgery [facility] Operating Room [address] [place] [phone] Lexis Renteria MD FASCIOTOMY from Last 3 [...] total) by mouth every evening 3 06/11/20 Active metFORMIN XR (GLUCOPHAGE XR) 500 mg 24 hr tablet Take by mouth 2 (two) times a day with meals 05/24/20 Active DULERA 200-5 mcg/actuation inhaler TAKE 2 PUFFS BY MOUTH TWICE A DAY 3 06/11/20 19 Active gabapentin (NEURONTIN) 300 mg capsule 2 capsules (600 mg total) 3 (three) times a day 05/24/20 Active cetirizine (ZyrTEC) 10 mg tablet Take 1 tablet (10 mg total) by mouth daily Active albuterol 2.5 mg /3 mL (0.083 %) nebulizer solution as needed Active busPIRone (BUSPAR) 10 mg tablet buspirone 10 mg tablet Active Viberzi 100 mg tablet 2 (two) times a day 10/18/20 Active dicyclomine (BENTYL) 20 mg tablet Take [...] tablet 1 hour before procedure. Will need garbage collector driver to bring him. 2 tablet 11/30/19 [...] as needed for pain 15 tablet 03/13/20 25 Active naloxone (NARCAN) 4 mg/actuation spray,non-aerosol Administer 1 spray into affected nostril(s) as needed for opioid reversal or respiratory depression Call 911. Administer a single spray in one nostril. Repeat every 3 minutes as needed if no or minimal response. 4 each 03/13/20 25 Active pregabalin (LYRICA) 75 mg capsule [...] often do you attend chur ch or latter-day services? Never 02/25/2025 Do you belong to any clubs o r organizations such as pentecostalism groups, unions, fraternal or athletic groups, or [...] were you homeless or living in a senior care (including now)? No 02/25/2025 Personal Safety Answer [...] PATHOGEN PANEL Routine 02/20/2025 10:39 AM CDT NE AN PROCEDURE PLACEHOLDER Routine 02/19/2025 9:34 PM CDT NE AN EMERGENT ENDOTRACHEAL AIRWAY Routine 02/19/2025 9:34 PM CDT RELEASE MEDIAN NERVE 02/19/2025 9:17 PM CDT 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 Case Notes Imtiaz [phone] @ 2032 RELEASE GUYONS CANAL 02/19/2025 9:17 PM CDT 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 Case Notes Imtiaz [phone] @ 2032 RELEASE CARPAL TUNNEL 02/19/2025 9:17 PM CDT 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 Case Notes Imtiaz [phone] @ 2032 FASCIOTOMY 02/19/2025 9:17 PM CDT 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 Case Notes Imtiaz [phone] @ 2032 POCT HCG, URINE Routine 02/19/2025 9:10 PM CDT URINALYSIS, MICROSCOPIC ONLY STAT 02/19/2025 9:09 PM CDT URINALYSIS AND REFLEX TO MICROSCOPIC AND CULTURE STAT 02/19/2025 9:09 PM CDT B CHECK SAMPLE STAT 02/19/2025 9:[address] BODY OUTSIDE CONSULT Routine 02/19/2025 8:43 PM CDT NE CRITICAL CARE ILL/INJURED PATIENT INIT 30-74 MIN [...] POCT ORDERABLES - DE VICE Final Result [facility] [place] [address] * Airway (02/26/2025 8:31 AM CDT) Narrative [...] DE VICE Final Result Performing Organization Address [facility] Co de Phone Number [facility] [place] [address] * Type and screen (02/26/2025 7:47 AM CDT) Pathologist [facility] ABO Rh A Positive Ashely, indirect Negative [facility] Blood 02/26/2025 7:47 AM CDT 02/26/2025 8:09 AM CDT Narrative [facility] - 02/26/2025 9:00 AM CDT Has the patient had Daratumumab or Isatuximab in the past 6 months?->Unknown Brandon Reyes MD LAB BLOOD BANK TEST ORD ERABLES Final Result Performing Organization Address [facility] Co de Phone Number [facility] [place] [address] * eGFR (02/25/2025 9:31 PM CDT) Pathologist [facility] eGFR >90 >=60 mL/min/1. 73 m2 Comment: [...] ORDERABLES Fin al Result Performing Organization Address City/[facility]/ZIP Co de Phone Number [facility] [place] [place] [address] * (ABNORMAL) CBC without differential (02/25/2025 9:31 PM CDT) WBC 14.05(H) 3.80 - 9.90 K/cumm Hgb 13.5 11.9 - 15.5 g/dL [facility] Hct 41.7 35.6 - 45.5 % [facility] Plt 286 150 - 400 K/cumm [facility] MPV 9.5 9.1 - 12.3 fL [facility] RBC 4.50 3.90 - 5.20 M/cumm [facility] MCV 92.7 81.3 - 96.4 fL [facility] MCH 30.0 27.1 - 33.3 pg [facility] MCHC 32.4 32.3 - 35.7 g/dL [facility] RDW CV 14.4 11.1 - 14.9 % [facility] RDW SD 48.6(H) 35.7 - 48.1 fL [facility] NRBC abs 0.00 0.00 - 0.01 K/cumm [facility] Blood 02/25/2025 9:31 PM CDT 02/25/2025 10:13 PM CDT us Lexis Renteria MD LAB BLOOD ORDERABLES Fin al Result Performing Organization Address [facility]/ZIP Co de Phone Number [facility] [place] [address] * Basic metabolic panel (02/25/2025 9:31 PM CDT) Sodium 139 135 - 145 mmol/L Potassium, pl 4.3 3.3 - 4.9 mmol/L [facility] Chloride 103 97 - 110 mmol/L [facility] CO2 26 22 - 32 mmol/L [facility] Anion gap 10 2 - 15 mmol/L [facility] BUN 12 6 - 25 mg/dL [facility] Creatinine 0.69 0.60 - 1.10 mg/dL [facility] Glucose 133 70 - 199 mg/dL [facility] Comment: Interpretive Data Fasting glucose >/= [...] 2022. Calcium 9.1 8.5 - 10.3 mg/dL [facility] Blood 02/25/2025 9:31 PM CDT 02/25/2025 10:12 PM CDT Lexis Renteria MD LAB BLOOD ORDERABLES Fin al Result [facility] [place] [address] * (ABNORMAL) Hemoglobin A1c (02/24/2025 9:50 AM CDT) Hgb A1C 6.3(H) 4.0 - 5.6 % Estimated Average Glucose 134 mg/dL [facility] Comment: The ADA recommends reporting an [...] ORDERABLES Fin al Result Performing Organization Address [facility] Co de Phone Number [facility] [place] [address] * eGFR (02/21/2025 8:58 AM CDT) eGFR [...] ORDERABLES Fin al Result Performing Organization Address City/[facility]/ZIP Co de Phone Number [facility] [place] [place] [address] * (ABNORMAL) CBC without differential (02/21/2025 8:58 AM CDT) WBC 17.70(H) 3.80 - 9.90 K/cumm Hgb 13.5 11.9 - 15.5 g/dL [facility] Hct 40.8 35.6 - 45.5 % [facility] Plt 267 150 - 400 K/cumm [facility] MPV 9.4 9.1 - 12.3 fL [facility] RBC 4.49 3.90 - 5.20 M/cumm [facility] MCV 90.9 81.3 - 96.4 fL [facility] MCH 30.1 27.1 - 33.3 pg [facility] MCHC 33.1 32.3 - 35.7 g/dL [facility] RDW CV 14.6 11.1 - 14.9 % [facility] RDW SD 48.9(H) 35.7 - 48.1 fL [facility] NRBC abs 0.00 0.00 - 0.01 K/cumm [facility] Blood 02/21/2025 8:58 AM CDT 02/21/2025 9:11 AM CDT us Lexis Renteria MD LAB BLOOD ORDERABLES Fin al Result [facility] [place] [address] * (ABNORMAL) Basic metabolic panel (02/21/2025 8:58 AM CDT) Sodium 138 135 - 145 mmol/L Potassium, pl 3.5 3.3 - 4.9 mmol/L [facility] Chloride 102 97 - 110 mmol/L [facility] CO2 26 22 - 32 mmol/L [facility] Anion gap 10 2 - 15 mmol/L [facility] BUN 9 6 - 25 mg/dL [facility] Creatinine 0.70 0.60 - 1.10 mg/dL [facility] Glucose 240(H) 70 - 199 mg/dL [facility] Comment: Interpretive Data Fasting glucose >/= [...] 2022. Calcium 9.0 8.5 - 10.3 mg/dL [facility] Blood 02/21/2025 8:58 AM CDT 02/21/2025 9:11 AM CDT us Lexis Renteria MD LAB BLOOD ORDERABLES Fin al Result [facility] [place] [address] * XR Chest 1 View (02/20/2025 1:55 [...] signed by: Jairo Claire M.D. Nathalie Rodriguez TACK COVERER IMG XR PROCEDURES Final Resu lt * Respiratory pathogen panel Nasopharyngeal (02/20/2025 10:39 AM CDT) Pathologist [facility] Influenza A RNA Not Detected Not Detected Influenza B RNA Not Detected Not Detected [facility] RSV RNA Not Detected Not Detected [facility] COVID-19 RNA Not Detected Not Detected [facility] Coronavirus 229E RNA Not Detected Not Detected [facility] Coronavirus HKU1 RNA Not Detected Not Detected [facility] Coronavirus NL63 RNA Not Detected Not Detected [facility] Coronavirus OC43 RNA Not Detected Not Detected [facility] Adenovirus DNA Not Detected Not Detected [facility] Metapneumovirus RNA Not Detected Not Detected [facility] Rhinovirus/Enterov irus RNA Not Detected Not Detected [facility] Parainfluenza 1 RNA Not Detected Not Detected [facility] Parainfluenza 2 RNA Not Detected Not Detected [facility] Parainfluenza 3 RNA Not Detected Not Detected [facility] Parainfluenza 4 RNA Not Detected Not Detected [facility] B. pertussis DNA Not Detected Not Detected [facility] B. parapertussis DNA Not Detected Not Detected [facility] C. pneumoniae DNA Not Detected Not Detected [facility] M. pneumoniae DNA Not Detected Not Detected [facility] Nasopharyngeal 02/20/2025 10 :39 AM CDT 02/20/2025 10:52 AM CDT Narrative [facility] - 02/20/2025 11:59 AM CDT Is the Patient experiencing symptoms consistent with COVID?->No Surveillance testing for transplant patient?->No Interpretive Data The AmberPoint FilmArray Respiratory Panel (RP2.1) assay is a [...] assay has FDA clearance for testing of TACK COVERER swabs. The performance of additional specimen types has been assessed by the performing laboratory. The performance characteristics of this assay have been determined by [facility]. Current interpretive data was last revised on 22. Nathalie Rodriguez TACK COVERER LAB MICROBIOLOGY - GENERAL O RDERABLES Final Result [facility] [place] [address] * NE AN EMERGENT ENDOTRACHEAL AIRWAY, NE AN PROCEDURE PLACEHOLDER (02/19/2025 9:34 PM CDT) Narrative Tory Lazaro CRNA - 02/19/2025 9:34 PM CDT Tory Lazaro CRNA 02/19/2025 9:34 PM Airway Patient location: OR Urgency: emergent Indications for airway management: anesthesia Difficult airway: no Staff: Placed by: STREET CAR MECHANIC: Tory Lazaro CRNA Emergent airway documentation: Patient [...] POCT hCG, urine (02/19/2025 9:10 PM CDT) Pathologist [facility] HCG, ur, POC Negative Negative Lot Number [id number] QC Backgroud Clear Acceptable QC Control Line Acceptable Urine 02/19/2025 9:10 PM CDT Lauren Haro MD POINT OF CARE TEST MURPHY BOYCE Final Result * (ABNORMAL) Urinalysis reflex to microscopic and culture Urine, clean voided (02/19/2025 9:09 PM CDT) Color, ur Straw Yellow Clarity, ur Clear Clear [facility] Specific gravity, ur >1.042(H) 1.003 - 1.030 [facility] pH, urine 6.5 [facility] Comment: Interpretive Data U rine pH is affected by diet, medications, systemic acid-base disturbances, and renal tubular function. pH may affect urinary stone formation. For example, urine pH below 6.0 may help reduce the tendency for calcium phosphate stones and pH greater than 6.0 may reduce the tendency for uric acid stone formation. Source: [facility] Current Interpretive Data was last revised on 2017 Protein, ur ql 1+(A) Negative [facility] Glucose, ur ql Negative Negative [facility] Ketones, ur Trace Negative [facility] Bilirubin, ur Negative Negative [facility] Blood, ur 2+(A) Negative [facility] Urobilinogen, ur <2.0 <2.0 mg/dL [facility] Nitrite, ur Negative Negative [facility] Leukocyte esterase, ur Trace(A) Negative [facility] UA reflex comment Reflex to microscopic UA will be performed. [facility] Urine, clean voided 02/19/2025 9:09 PM CDT 02/19/2025 9:24 PM CDT Lauren Haro MD LAB MICROBIOLOGY - [facility] ORDERABLES Final Result [facility] [place] [address] * (ABNORMAL) Urinalysis, microscopic only (02/19/2025 9:09 PM CDT) WBC, ur 6-10(A) 0 - 5 /HPF RBC, ur 6-10(A) 0 - 2 /HPF [facility] Epithelial cells, squamous, ur 6-10(A) 0 - 5 /HPF [facility] Comment:Suggestive of contam ination. Consider recollection by clean catch. Mucous, ur Present(A) [facility] Culture Reflex Comment Reflex conditions for urine culture (WBC >10) not met. [facility] Urine, clean voided 02/19/2025 9:09 PM CDT 02/19/2025 9:24 PM CDT us Lauren Haro MD LAB URINE ORDERABLES Fi nal Result [facility] [place] [address] * Check Sample (02/19/2025 9:01 PM CDT) ABO Rh A Positive [facility] HCLL OTHER 02/19/2025 9:01 PM CDT 02/19/2025 9:10 PM CDT Magalie Archibald MD LAB BLOOD ORDERABLES Final Result Performing Organization Address [facility] Co de Phone Number [facility] [place] [address] [facility] * CT Body Outside Consult (02/19/2025 [...] images may or may not represent the [place] source data set and thus may contain [...] IMAGING STUDY STUDY INITIALLY PERFORMED: 02/19/2025 at [facility]. TYPE OF STUDY: Multiple CT images [...] IMAGING STUDY STUDY INITIALLY PERFORMED: 02/19/2025 at [facility]. TYPE OF STUDY: Multiple CT images [...] images may or may not represent the [place] source data set and thus may contain changes that may lower the accuracy of this second-opinion interpretation. Dictated by: Mo Oreilly MD The radiology attending physician has personally reviewed this study, and had reviewed and/or edited this written report and agrees with it. Electronically signed by: Anastasia Braswell M.D. Lauren Haro MD IMG CT PROCEDURES Final Result * NE CRITICAL CARE ILL/INJURED PATIENT INIT 30-74 MIN (02/19/2025 8:35 PM CDT) Magalie Rooney MD - 02/19/2025 8:35 PM CDT Magalie [...] MD LAB BLOOD ORDERABLES Fi nal Result [facility] [place] [address] * (ABNORMAL) Differential, auto (02/19/2025 8:20 PM CDT) Neutrophil abs 27.04(H) 1.50 - 6.50 K/cumm Imm gran abs 0.24(H) 0.00 - 0.10 K/cumm [facility] Lymphocyte abs 2.60 0.80 - 3.30 K/cumm [facility] Monocyte abs 1.73(H) 0.20 - 0.80 K/cumm [facility] Eosinophil abs 0.03 0.00 - 0.50 K/cumm [facility] Basophil abs 0.11(H) 0.00 - 0.10 K/cumm [facility] Neutrophil pct 85.2 % [facility] Comment: Interpretive Data Percent cell count reference ranges are not reported, since discordance with absolute values may lead to misinterpretation of CBC data. Current Interpretive Data was last revised on 2018. Imm gran pct 0.8 % [facility] Comment: Interpretive Data Percent cell count reference ranges are not reported, since discordance with absolute values may lead to misinterpretation of CBC data. Current Interpretive Data was last revised on 2018. Lymphocyte pct 8.2 % [facility] Comment: Interpretive Data Percent cell count reference ranges are not reported, since discordance with absolute values may lead to misinterpretation of CBC data. Current Interpretive Data was last revised on 2018. Monocyte pct 5.4 % [facility] Comment: Interpretive Data Percent cell count reference ranges are not reported, since discordance with absolute values may lead to misinterpretation of CBC data. Current Interpretive Data was last revised on 2018. Eosinophil pct 0.1 % [facility] Comment: Interpretive Data Percent cell count reference ranges are not reported, since discordance with absolute values may lead to misinterpretation of CBC data. Current Interpretive Data was last revised on 2018. Basophil pct 0.3 % [facility] Comment: Interpretive Data Percent cell count reference ranges are not reported, since discordance with absolute values may lead to misinterpretation of CBC data. Current Interpretive Data was last revised on 2018. Blood 02/19/2025 8:20 PM CDT 02/19/2025 8:36 PM CDT Lauren Haro MD LAB BLOOD ORDERABLES Fi nal Result Performing Organization Address City/[facility] Co de Phone Number [facility] [place] [address] * (ABNORMAL) CBC with auto differential (02/19/2025 8:20 PM CDT) WBC 31.75(H) 3.80 - 9.90 K/cumm Hgb 15.1 11.9 - 15.5 g/dL [facility] Hct 44.4 35.6 - 45.5 % [facility] Plt 339 150 - 400 K/cumm [facility] MPV 9.3 9.1 - 12.3 fL [facility] RBC 4.92 3.90 - 5.20 M/cumm [facility] MCV 90.2 81.3 - 96.4 fL [facility] MCH 30.7 27.1 - 33.3 pg [facility] MCHC 34.0 32.3 - 35.7 g/dL [facility] RDW CV 14.5 11.1 - 14.9 % [facility] RDW SD 47.8 35.7 - 48.1 fL [facility] NRBC abs 0.00 0.00 - 0.01 K/cumm [facility] Blood 02/19/2025 8:20 PM CDT 02/19/2025 8:36 PM CDT Lauren Haro MD LAB BLOOD ORDERABLES Fi nal Result Performing Organization Address City/State/[facility] de Phone Number [facility] [place] [place] [address] * aPTT (02/19/2025 8:20 PM CDT) aPTT [...] BLOOD ORDERABLES nal Result Performing Organization Address [facility] [place] [address] * Protime-INR (02/19/2025 8:20 PM CDT) Pathologist [facility] PT 11.8 9.7 - 13.0 sec INR 1.09 0.90 - 1.20 [facility] Comment: Interpretive data Oral anticoagulant therapeutic ranges: Venous thromboembolism prophylaxis or treatment: 2.0-3.0 CARDIOLOGY Standard range: 2.0-3.0 High-intensity range: 2.5-3.5 Refer to indication-specific guidelines for appropriate target ranges for prosthetic heart valve replacement. Current interpretive data was last revised on 2019. Blood 02/19/2025 8:20 PM CDT 02/19/2025 8:39 PM CDT Lauren Haro MD LAB BLOOD ORDERABLES Fi nal Result Performing Organization Address [facility] de Phone Number [facility] [place] [place] [address] * Type and screen (02/19/2025 8:20 PM CDT) Ashely, indirect Negative ABO Rh A Positive [facility] Blood 02/19/2025 8:20 PM CDT 02/19/2025 8:33 PM CDT Narrative [facility] - 02/19/2025 9:26 PM CDT Has the patient had Daratumumab or Isatuximab in the past 6 months?->Unknown Lauren Haro MD LAB BLOOD BANK TEST ORD ERABLES Final Result [facility] [place] [address] * Creatine kinase (CK), total (02/19/2025 8:20 PM CDT) [facility] CK 61 30 - 200 Units/L Comment:Hemolyzed; result ma y be falsely elevated Blood 02/19/2025 8:20 PM CDT 02/19/2025 8:35 PM CDT Magalie Archibald MD LAB BLOOD ORDERABLES Final Result Performing Organization Address [facility] Co de Phone Number [facility] [place] [address] * (ABNORMAL) Comprehensive metabolic panel (02/19/2025 8:20 PM CDT) [facility] Sodium 138 135 - 145 mmol/L Potassium, pl 4.4 3.3 - 4.9 mmol/L [facility] Comment:Hemolyzed; Potassium value may be falsely elevated by as much as 0.6-1.0 mmol/L. Suggest redraw and reanalysis. Chloride 102 97 - 110 mmol/L [facility] CO2 22 22 - 32 mmol/L [facility] Anion gap 14 2 - 15 mmol/L [facility] BUN 9 6 - 25 mg/dL [facility] Creatinine 0.69 0.60 - 1.10 mg/dL [facility] Glucose 137 70 - 199 mg/dL [facility] Comment: Interpretive Data Fasting glucose >/= [...] Calcium 9.1 8.5 - 10.3 mg/dL [facility] Bilirubin, total 0.4 0.1 - 1.2 mg/dL [facility] Protein, pl 7.9 6.5 - 8.5 g/dL [facility] Albumin 4.2 3.5 - 5.0 g/dL [facility] Alk phos 85 40 - 130 Units/L [facility] ALT 32 7 - 45 Units/L [facility] AST 47(H) 10 - 45 Units/L [facility] Comment:Hemolyzed; result ma y be falsely elevated Blood 02/19/2025 8:20 PM CDT 02/19/2025 8:35 PM CDT Lauren Haro MD LAB BLOOD ORDERABLES Fi nal Result [facility] [place] [address] from Last 3 Months Insurance [place] ACCESS CHOICE [employer] ACCESS CHOICE Advance Directives For more information, please contact: [phone] * Full Code (Latest Code Status on File) Date Activated Date Inactivated Comments 02/20/2025 12:42 AM 02/27/2025 1:57 PM Care Teams Hospital Monitor Relationship Specialty Start Date End Date Cody Roper DO [address] [place] [address] PCP - General Family Medicine 07/02/19 David Bell MD [address] [place] [address] Medical Oncologist/Wood Borer Hematology and Oncology 06/11/20
--- OUTSIDE RECORDS SUMMARY | 2025-04-10 15:36 | XMS_ITS | Encounter Summary ---
Author Organization [facility] Address [address] [place] [address] Care Team Providers Care Power Plant Manager Name Role Phone Cody Roper DO Primary Care Provider David Bell MD Unavailable [phone] Encounter Details Date Type Department Care Team (Late st Contact Info) Description 01/12/2023 Telephone [facility] [address] [place] [address] [place] [id number] [address] Social History Tobacco Use Types Packs/Day Years [...] on filedocumented in this encounter Care Teams Power Plant Manager Relationship Specialty Start Date End Date Cody Roper DO [address] [place] [address] PCP - General Family Medicine 07/02/19 David Bell MD [address] [place] [address] Medical Oncologist/Local Superintendent Hematology and Oncology 06/11/20 documented as of this encounter
--- OUTSIDE RECORDS SUMMARY | 2025-04-10 15:36 | XMS_ITS | Encounter Summary ---
Author Organization [facility] Address 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
--- OUTSIDE RECORDS SUMMARY | 2025-04-10 15:36 | XMS_ITS | Clinical Summary ---
Author Organization [facility] Address [address] [place] [address] Care Team Providers Care Microbiology Manager Name Role Phone Roper, Dino SalgadoEmil Primary Care Provider [phone] Source Comments [facility],non-owned Affiliates and Associated Physician Practices is amultiple site organization consisting of ambulatory clinics and hospital sitesin [place], [place], [place] and [place]. This disclosure is being madepursuant to the Care Everywhere program and may not contain all information available regarding this patient. 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 Gender Identity Not on file Sexual Orientation [...] topic Insurance [place] BC/BLUE BLUE CROSS BLUE [facility] ANTH ANTHEM BC/BLUE BLUE CROSS BLUE SHIELD [place] * Guarantor: LISSA OLIVARES Account Type Relation to Patient Date of Phone Billing Address Personal/Family [address] [place] [address] * Guarantor: LISSA OLIVARES Account Type Relation to Patient Date of Phone Billing Address Personal/Family [address] [place] [address] * Guarantor: LISSA OLIVARES Account Type Relation to Patient Date of Phone Billing Address Personal/Family [address] [place] [address] Care Teams Microbiology Manager Relationship Specialty Start Date End Date Dino Roper DO [address] [place] [id number] PCP - General Family Medicine 08/30/20
--- OUTSIDE RECORDS SUMMARY | 2025-04-10 15:38 | XMS_ITS | Clinical Summary ---
Author Organization [facility] Address [address] [place] [address] Care Team Providers Care Gold Tooler Name Role Phone Unavailable Primary Care Provider Unavailabl e Encounters Date Type Department Care Team Description 04/07/2025 External Device Data [facility] ABSTRACTION Provider, Abstract 02/04/2025 External Device Data [facility] ABSTRACTION Provider, [...] on file Legal Sex Female 5:32 PM RN BURN Gender Identity Not on file Sexual Orientation [...] patient's age to complete this topic Insurance [facility] Meet[employer] ACCESS CHOICE
--- OUTSIDE RECORDS SUMMARY | 2025-04-10 15:38 | XMS_ITS | Continuity of Care Document ---
Author Organization [employer] Address [address] [place] [address] Phone Care Team Providers Care Logistics Support Name Role Phone Cody Roper DO Unavailable [...] QN (URINE) CREATININE, (U-R) ROUTINE VENIPUNCTURE OFFICE LUDVB-XWQ-UJWREDJZ BODY MASS INDEX DOCD SYST BP GE 130 - 139MM HG DIAST BP 80-89 MM HG GENERAL HEALTH PANEL LIPID PANEL ROUTINE VENIPUNCTURE OFFICE GJBKQ-GZY-WJEZVOXN BODY MASS INDEX DOCD SYST BP LT 130 MM HG DIAST BP < 80 MM HG VITAMIN D, 25-HYDROXY OFFICE WBPXU-JLZ-ZABGOUZJ BODY MASS INDEX DOCD SYST BP LT 130 MM HG DIAST BP 80-89 MM HG ANTINUCLEAR ANTIBODIES (JAYCE) BASIC METABOLIC PANEL(BMP) C-REACTIVE PROTEIN (CRP) HEMATOCRIT (HCT) HEMOGLOBIN (HGB) HEMOGLOBIN A1C HGA1C, GLYCO RHEUMATOID FACTOR: QN RBC SED RATE, AUTOMATED URIC ACID, (S) URINALYSIS, DIPSTICK (UA) - Office Lab D ROUTINE VENIPUNCTURE OFFICE ZXLTI-DYP-SWJZWALQ BODY MASS INDEX DOCD SYST BP LT 130 MM HG DIAST BP 80-89 MM HG BASIC METABOLIC PANEL(BMP) HEMATOCRIT (HCT) HEMOGLOBIN (HGB) HEMOGLOBIN A1C HGA1C, GLYCO LIPID PANEL VITAMIN D, 25-HYDROXY ROUTINE VENIPUNCTURE Pt inelig neg scrn depres OFFICE ABJOS-QDB-KKPPIUQY BODY MASS INDEX DOCD SYST BP GE 130 - 139MM HG DIAST BP 80-89 MM HG EKG (ELECTROCARDIOGRAM) OFFICE PRLPE-NHH-XCUREHKS BODY MASS INDEX DOCD SYST BP GE [...] - Office Lab J ROUTINE VENIPUNCTURE OFFICE QHOMA-DAD-AFZDEWAY BODY MASS INDEX DOCD SYST BP GE 130 - 139MM HG DIAST BP 80-89 MM HG OFFICE DQTKL-ZRM-EGKIYGPQ BODY MASS INDEX DOCD SYST BP LT 130 MM HG DIAST BP < 80 MM HG DSCHRG MED/CURRENT MED MERGE OFFICE SWFWI-SKO-VYAPCAYP SYST BP LT 130 MM HG DIAST BP 80-89 MM HG CBC, INC PLATELETS AND DIFFERENTIAL COMPREHEN METABOLIC PANEL CMP HEMOGLOBIN A1C HGA1C, GLYCO LIPID PANEL VITAMIN D, 25-HYDROXY URINALYSIS, DIPSTICK (UA) - Office Lab S ROUTINE VENIPUNCTURE OFFICE ZEUAI-CBG-JRJVTDNQ BODY MASS INDEX DOCD SYST BP LT 130 MM HG DIAST BP 80-89 MM HG URINALYSIS W MICROSCOPIC (UA) URINALYSIS, DIPSTICK (UA) - Office Lab S Brief Emotional/Behavioral A ssessment, With Scoring/Doct, Per Stndrd Instrument Pt inelig neg scrn depres BASIC METABOLIC PANEL(BMP) HEMATOCRIT (HCT) HEMOGLOBIN (HGB) ROUTINE VENIPUNCTURE HEMOGLOBIN A1C HGA1C, GLYCO MICROALBUMIN, QN (URINE) CREATININE, (U-R) OFFICE QVJSE-MVY-WDZMARTM BODY MASS INDEX DOCD SYST BP GE 130 - 139MM HG DIAST BP 80-89 MM HG CBC, INC PLATELETS AND DIFFERENTIAL COMPREHEN METABOLIC PANEL CMP 2 HEMOGLOBIN A1C HGA1C, GLYCO LIPID PANEL VITAMIN D, 25-HYDROXY MICROALBUMIN, SEMIQN(RGT STRIP) - OL Jan ROUTINE VENIPUNCTURE OFFICE OZCRO-SVI-RRZEPKNR BODY MASS INDEX DOCD SYST BP LT 130 MM HG DIAST BP 80-89 MM HG EKG (ELECTROCARDIOGRAM) OFFICE SYZFO-EVJ-ZUFIHAQX BODY MASS INDEX DOCD SYST BP LT 130 MM HG DIAST BP 80-89 MM HG OFFICE HDBEH-GJG-LSNNWWNH BODY MASS INDEX DOCD SYST BP LT 130 MM HG DIAST BP 80-89 MM HG KENALOG 10 MG INJ; MULTIPLE TRIGGER PTS, 1 OR 2 MUSCLE GROUPS OFFICE WWYGM-JFR-PJZIBPPE BODY MASS INDEX DOCD SYST BP LT 130 MM HG DIAST BP 80-89 MM HG OFFICE EDUJD-IMU-NVQOCHWK BODY MASS INDEX DOCD SYST BP GE 130 - 139MM HG DIAST BP 80-89 MM HG CBC, INC PLATELETS AND DIFFERENTIAL COMPREHEN METABOLIC PANEL CMP 1 HEMOGLOBIN A1C HGA1C, GLYCO LIPID PANEL ROUTINE VENIPUNCTURE Pt inelig neg scrn depres OFFICE PXGUS-LCC-KNOZLTXH BODY MASS INDEX DOCD SYST BP LT 130 MM HG DIAST BP 80-89 MM HG CBC, INC PLATELETS AND DIFFERENTIAL COMPREHEN METABOLIC PANEL CMP 1 HEMOGLOBIN A1C HGA1C, GLYCO ROUTINE VENIPUNCTURE OFFICE VGIEC-QVD-NVPAVTLZ BODY MASS INDEX DOCD SYST BP >= 140 MM HG6 IT DIAST BP 80-89 MM HG CBC, INC PLATELETS AND DIFFERENTIAL COMPREHEN METABOLIC PANEL CMP 1 HEMOGLOBIN A1C HGA1C, GLYCO ROUTINE VENIPUNCTURE OFFICE WLFXK-WOW-EMXTRGYO BODY MASS INDEX DOCD SYST BP LT 130 MM HG DIAST BP < 80 MM HG DEAMIDATED GLADIN PEPTIDE IGA 0 DEAMIDATED GLADIN PEPTIDE IGG 0 TISSUE TRANSGLUTIMASE IGA TISSUE TRANSGLUTIMASE IGG ROUTINE VENIPUNCTURE BODY MASS INDEX DOCD SYST BP GE 130 - 139MM HG DIAST BP 80-89 MM HG OFFICE HZUEZ-FVH-SLXUUHXS OFFICE GHJFN-CNW-COTOJMTC BODY MASS INDEX DOCD SYST BP LT 130 MM HG DIAST BP < 80 MM HG CBC, INC PLATELETS AND DIFFERENTIAL COMPREHEN METABOLIC PANEL CMP 0 HEMOGLOBIN A1C HGA1C, GLYCO LIPID PANEL ROUTINE VENIPUNCTURE Brief Emotional/Behavioral A ssessment, With Scoring/Doct, Per Stndrd Instrument Pt inelig neg scrn depres Kept Appointment No Charge Encounter Jul OFFICE PSTTK-DFW-LAOHMIEO BODY MASS INDEX DOCD SYST BP LT [...] SCREENING FOR PAP (OBTAINING SPECIMEN) M OFFICE ZDBBD-ZGJ-WGAUKRKJ BODY MASS INDEX DOCD SYST BP LT 130 MM HG DIAST BP < 80 MM HG BP OFFICE/OUTPATIENT VISIT EST OFFICE OGHPO-PYY-TDYACLYR BODY MASS INDEX DOCD SYST BP LT 130 MM HG DIAST BP 80-89 MM HG CBC, INC PLATELETS AND DIFFERENTIAL COMPREHEN METABOLIC PANEL [facility] 9 HEMOGLOBIN A1C HGA1C, GLYCO LIPID PANEL ROUTINE VENIPUNCTURE THERAPEUTIC EXERCISES ULTRASOUND THERAPY THERAPEUTIC EXERCISES ULTRASOUND THERAPY Brief Emotional/Behavioral A ssessment, With Scoring/Doct, Per Stndrd Instrument Clin depression screen doc OFFICE VVKQM-LWT-YRQLAYHA BODY MASS INDEX DOCD SYST BP LT 130 MM HG DIAST BP < 80 MM HG THERAPEUTIC EXERCISES ULTRASOUND THERAPY ELECTRICAL STIMULATION THERAPEUTIC EXERCISES ULTRASOUND THERAPY ULTRASOUND THERAPY THERAPEUTIC EXERCISES THERAPEUTIC EXERCISES ULTRASOUND THERAPY OT EVAL (MOD COMPLEXITY) CBC, INC PLATELETS AND DIFFERENTIAL COMPREHEN METABOLIC PANEL [facility] 9 HEMOGLOBIN A1C HGA1C, GLYCO ROUTINE VENIPUNCTURE OFFICE CFMNR-CEK-UWJATDAO BODY MASS INDEX DOCD SYST BP GE [...] Diagnoses Date Provider Providers Copied on Encounter [employer], [address], [place], [place], [address] , tel: [phone] Roper No Information 5 Judson Ross. [address] [place] [address], [id number], . tel:[phone] [employer], [address], [place], [place], [address] , tel: [phone] Roper Kidney stone 4 Judson Ross. [address] [place] [address], [id number], . tel:[phone] [employer], [address], [place], [place], [address] , tel: [phone] Roper No Information 4 Judson Ross. [address] [place] [address], [id number], . tel:[phone] [employer], [address], [place], [place], [address] , tel: [phone] Roper No Information 4 Judson Ross. [address] [place] [address], [id number], . tel:[phone] OFFICE UNKDP-ULW-NV [facility], [address], [place], [place], [address] , tel: [phone] Roper mmp (chief complaint) Encounter for screening [...] D deficiencyHx of cholecystectomy 4 Judson Ross. [address] [place] [address], [id number], . tel:[phone] Referring Provider: Cody Stein, [address] [place] [address], [address] . tel:[phone] [facility], [address], [place], [place], [address] , tel: [phone] [facility] No Information 4 Judson Ross. [address] [place], [place], [address], . tel:[phone] [facility], [address], [place], [place], [address] , tel: [phone] Judson No Information 4 Judson Ross. [address] [place] [address], [place], [place], [address], . tel:[phone] [facility], [address], [place], [place], [address] , [place] tel: [phone] Judson No Information 4 Judson Ross. [address] [place] [address], [id number], . tel:[phone] OFFICE SDWXE-RON-LF [facility], [address], [place], [place], [address] , tel: [phone] Judson mmp (chief complaint) Mixed hyperlipidemiaMo derate [...] ea corporisVitamin D deficiency 4 Judson Ross. [address] [place] [address], [id number], . tel:[phone] Referring Provider: Cody Stein, [address] [place] [address], [address] . tel:[phone] OFFICE PNYHP-TUM-EI [facility], [address], [place], [place], [address] , [place] tel: [phone] Judson mmp (chief complaint) Gastroesophageal reflux disease [...] typeArthralgia of multiple joints 3 Judson Ross. [address] [place] [address], [place], [place], [address], . tel:[phone] Referring Provider: Cody Stein, [address] [place] [address], [place], [address] . tel:[phone] OFFICE GYBZC-KWU-QN PANDED [facility], [address], [place], [place], [address] , [place] tel: [phone] [facility] IBS D (chief complaint) Irritable bowel syndrome with diarrhea 3 Meena Velozyazan. [address] [facility] [address], [place], [place], [address], [place]. tel:[phone] Referring Provider: Emil Roper, [address] [facility] [place], [address] . tel:[phone] [facility], [address], [place], [place], [address] , [place] tel: [phone] Judson Other spondylosis with radiculopathy, cervical regionOther spondylosis with radiculopathy, lumbosacral regionSpondylosi s, unspecifiedUnila teral primary osteoarthritis, left knee Sep- 3 Judson Ross. [address] [place], [place], [address], [place]. tel: [phone] [facility], [address], [place], [place], [address] , [place] tel: [phone] Judson No Information 3 Judson Ross. [address] [facility], [place], [place], [address], [place]. tel:[phone] OFFICE ZBGFO-APY-RM TAILED [facility], [address], [place], [place], [address] , [place] tel: [phone] Judson mmp (chief complaint) Essential (primary) hypertensionMixe [...] neoplasm of breast 3 Judson Ross. [address] [facility], [place], [place], [address], . tel:[phone] Referring Provider: Cody Stein, [address] [place] [address], [place], [address] . tel:[phone] OFFICE [facility], [address], [place], [place], [address] , [place] tel:[phone] [facility] (chief complaint) Essential (primary) hypertensionMeta bolic [...] evaluationAbnorm al EKG 3 Judson Ross. [address] [facility], [place], [place], [address], . tel:[phone] Referring Provider: Cody Stein, [address] [place] [address], [place], [address] . tel:[phone] OFFICE CYJMS[facility]OTB[facility]ML[facility], [address], [place], [place], [address] , [place] tel:[phone] Roper [facility] (chief complaint) Lumbosacral radiculopathy due to [...] with diarrheaCervical radiculopathy 3 Judson Ross. [address] [place], [place], [address], [place]. tel:[phone] Referring Provider: Cody Stein, [address] [facility], [place], [address] . tel:[phone] OFFICE HCOEW-RGX-HV [employer], [address], [place], [place], [address] , [place] tel:[phone] [facility] Follow up (chief complaint) Irritable bowel syndrome with diarrheaRectal itching 2 Jerrell Gillette. [address] [place], [place], [address], [place]. tel:[phone] Referring Provider: Cody Stein, [address] [facility], [place], [address] . tel:[phone] OFFICE HPBBN-LHL-ZD [facility] [employer], [address], [place], [place], [address] , [place] [phone] Judson madsen (chief complaint) Cervical radiculopathyNec k pain, chronicOther chronic pain 2 Jim Camp. [address] [place], [place], [address], [place]. tel:[phone] Referring Provider: Cody Stein, [address] [place], [address] . tel:[phone] OFFICE LFEPQ-AJJ-XI [facility] [employer], [address], [place], [place], [address] , [place] tel:[phone] Judson madsen (chief complaint) Essential (primary) hypertensionMixe [...] D deficiency Sep- 2 Judson Ross. [address] [place], [place], [address], . tel:[phone] Referring Provider: Cody Stein, [address] [place] [address], [address] . tel:[phone] [facility], [address], [place], [place], [address] , [phone] Judson UTI symptoms/c oncerns (chief complaint) UTI symptoms Jul- 2 Judson Ross. [address] [place] [address], [id number], . tel:[phone] Referring Provider: Cody Stein, [address] [place] [address], [address] . tel:[phone] OFFICE WSRLT-SEM-VY [facility], [address], [place], [place], [address] , [phone] Judson mmp (chief complaint) Essential (primary) hypertensionMeta [...] t smokerInsomnia, unspecified type 2 Judson Ross. [address] [place] [address], [place], [place], [address], . tel:[phone] Referring Provider: Cody Stein, [address] [place] [address], [place], [address] . tel:[phone] OFFICE TDPQX-ZIA-PG [facility], [address], [place], [place], [address] , [place] tel:[phone] Judson mmp (chief complaint) Essential (primary) hypertensionMixe [...] paresthetica of left side 2 Judson Ross. [address] [place] [address], [place], [place], [address], [place]. tel:[phone] Referring Provider: Cody Stein, [address] [place] [address] B, [place], [address] . tel:[phone] OFFICE NMCPS-BCK-KC [facility], [address], [place], [place], [address] , [place] tel:[phone] Judson Rash (chief complaint) IntertrigoHyperp igmentation 2 Erasmo Cheney. [address] [place] [address], [address], [place], [place], [address], [place]. tel:[phone] Referring Provider: Cody Stein, [address] [place] [address] B, [place], [address] . tel:[phone] OFFICE USKUZ-AZQ-DX [facility], [address], [place], [place], [address] , tel:[phone] [facility] IBS (chief complaint) Irritable bowel syndrome with diarrhea 1 Jerrell Gillette. [address] [place], [place], [address], [place]. tel:[phone] Referring Provider: Cody Stein, [address] [place] [address] B, [place], [address] . tel:[phone] OFFICE DTKBI-IBI-LJ [facility], [address], [place], [place], [address] , [place] tel:[phone] Judson madsen (chief complaint) Encounter for screening [...] smokerObesity (BMI 30.0-34.9)Opioid use 1 Judson Ross. [address] [place] [address], [address], [place]. tel:[phone] Referring Provider: Cody Stein, [address] [place] [address], [place], [address] . tel:[phone] OFFICE GVAOD-FVU-UD [facility], [address], [place], [place], [address] , [place] tel:[phone] Judson [facility] (chief complaint) Essential (primary) hypertensionMixe d [...] rhinitis due to pollenAnxiety 1 Judson Ross. [address] [place] [address], [address], . [phone] Referring Provider: Cody Stein, [address] [place] [address], [address] . tel:[phone] [facility] [employer], [address], [place], [place], [address] , tel: [phone] Judson No Information 1 Judson Ross. [address] [place], [place], [address], . tel:[phone] Boni [facility], [address], [place], [place], [address] , tel:[phone] [facility] Urinary incontinence, unspecified type 1 Judson Ross. [address] [place], [place], [address], . tel:[phone] OFFICE FEOQP-QCG-NL [facility], [address], [place], [place], [address] , tel: [phone] Judson MMP (chief complaint) Essential (primary) hypertensionMixe [...] of left foot 1 Judson Ross. [address] [place], [place], [address], [place]. tel:[phone] Referring Provider: Cody Stein, [address] [place] [address], [address] . tel:[phone] OFFICE FJIZT-JMO-TJ [facility], [address], [place], [place], [address] , [place] tel: [phone] Judson mmp (chief complaint) Essential (primary) hypertensionMixe [...] of right wrist 1 Judson Ross. [address] [place], [place], [address], [place]. tel:[phone] Referring Provider: Cody Stein, [address] [place] [address], [place], [address] . tel:[phone] OFFICE ZGIIS-OLN-DE [facility], [address], [place], [place], [address] , [place] tel: [phone] [facility] Diarrhea (chief complaint) Irritable bowel syndrome with diarrhea 0 Jerrell Gillette. [address] [place], [place], [address], [place]. tel:[phone] Referring Provider: Cody Stein, [address] [place] [address], [place], [address] . tel:[phone] OFFICE IBQTQ-UED-VW [facility], [address], [place], [place], [address] , [place] tel: [phone] [facility] Diarrhea (chief complaint) Irritable bowel syndrome with diarrhea 0 Jerrell Leta. [address] [place], [place], [address], [place]. tel:[phone] Referring Provider: Cody Stein, [address] [place] [address] [place], [address] . tel:[phone] OFFICE JJGEW-YAD-LC [facility], [address], [place], [place], [address] , [place] tel: [phone] Judson mmp (chief complaint) Unilateral primary osteoarthritis, [...] (BMI 30.0-34.9)Gangli on cyst 0 Judson Ross. [address] [place] [address], [address], [place]. tel:[phone] Referring Provider: Cody Stein, [address] [facility] [place], [address] . tel:[phone] [facility], [address], [place], [place], [address] , [place] tel:[phone] Judson weight check (chief complaint) No Information 0 Judson Ross. [address] [place], [place], [address], . tel:[phone] Referring Provider: Cody Stein, [address] [place] [address] [place], [address] . tel:[phone] OFFICE CUABD-BNI-XE TAILED [facility], [address], [place], [place], [address] , tel:[phone] Judson mmp (chief complaint) Unilateral primary osteoarthritis, [...] ovary syndromeObesity (BMI 30.0-34.9) 0 Judson Ross. [address] [place] [address] [place], [place], [address], [place]. tel:[phone] Referring Provider: Cody Stein, [address] [place] [address] B, [place], [address] . tel:[phone] PREVENTATIVE -EST: 40-64 [facility], [address], [place], [place], [address] , tel:[phone] Judson mmp (chief complaint) Unilateral primary osteoarthritis, [...] lossPolycystic ovary syndromePhysical exam 0 Judson Ross. [address] [place] [address] B, [place], [place], [address], [place]. tel:[phone] Referring Provider: Cody Stein, [address] [facility], [place], [address] . tel:[phone] OFFICE [facility]FK[facility], [address], [place], [place], [address] , tel:[phone] Judson WWE/PAP (chief complaint) Cervical cancer screeningPCOS (polycystic ovarian syndrome)Hirsuti smSexual dysfunction 0 Jim Camp. [address] [place], [place], [address], [place]. tel:[phone] Referring Provider: Cody Stein, [address] [place] [address], [place], [address] . tel:[phone] BP OFFICE/OUTPA TIENT VISIT [facility], [address], [place], [place], [address] , tel:[phone] Judson Essential (primary) hypertension 0 Judson Ross. [address] [place] [address], [address], [place]. tel:[phone] Referring Provider: Cody Stein, [address] [place] [address], [place], [address] . tel:[phone] OFFICE [facility]KR[facility]SY[facility], [address], [place], [place], [address] , [place] tel:[phone] Judson MMP (chief complaint) Unilateral primary osteoarthritis, [...] asthma without complication 9 Judson Ross. [address] [place], [place], [address], [place]. tel:[phone] Referring Provider: Cody Stein, [address] [facility], [place], [address] . tel:[phone] [facility], [address], [place], [place], [address] , tel: [phone] Judson Unilateral primary osteoarthritis, left knee Sep-3 0-201 9 Judson Ross. [address] [facility], [place], [place], [address], . tel:[phone] Referring Provider: Cody Stein, [address] [facility], [place], [address] . tel:[phone] [facility] [address], [place], [place], [address] , tel: [phone] Judson No Information Sep-2 3-201 9 Judson Ross. [address] [place], [place], [address], . tel:[phone] Referring Provider: Cody Stein, [address] [facility], [place], [address] . tel:[phone] OFFICE SWTFS-GNG-DC PANDED [facility], [address], [place], [place], [address] , tel: [phone] Judson *depressio n (chief complaint) Current moderate episode of major depressive disorder without prior episodeUnilatera l primary osteoarthritis, left knee Sep-1 9- 9 Jim Camp. [address] [place], [place], [address], . tel:[phone] Referring Provider: Cody Stein, [address] [facility], [place], [address] . tel:[phone] [facility] [address], [place], [place], [address] , tel: [phone] Judson Unilateral primary osteoarthritis, left knee Sep-1 6-201 9 Judson Ross. [address] [place], [place], [address], . tel:[phone] Referring Provider: Cody Stein, [address] [place] [address] B, [place], [address] . tel:[phone] [facility], [address], [place], [place], [address] , tel: [phone] Roper Unilateral primary osteoarthritis, left knee Sep-0 9-201 9 Roper Cody. [address] [place] [address] B, [place], [place], [address], . tel:[phone] Referring Provider: Cody Stein, [address] [place] [address] B, [place], [address] . tel:[phone] [facility], [address], [place], [place], [address] , tel: [phone] Roper Unilateral primary osteoarthritis, left knee Sep-0 5-201 9 Roper Cody. [address] [place] [address], [address], . tel:[phone] Referring Provider: Cody Stein, [address] [place] [address] B, [place], [address] . [phone] [facility], [address], [place], [place], [address] , tel: [phone] Roper Right arm pain Sep-0 4-201 9 Roper Cody. [address] [place] [address], [place], [place], [address], . tel:[phone] [facility], [address], [place], [place], [address] , tel: [phone] Roper Unilateral primary osteoarthritis, left knee Aug-1 9-201 9 Roper Cody. [address] [place] [address], [address], . tel:[phone] Referring Provider: Cody Stein, [address] [place] [address], [place], [address] . tel:[phone] [facility], [address], [place], [place], [address] , tel: [phone] Roper Unilateral primary osteoarthritis, left knee 9 Judson Ross. [address] [facility], [place], [place], [address], [place]. tel:[phone] Referring Provider: Cody Stein, [address] [facility] [address], [place], [address] . tel:[phone] OFFICE JHAFQ-MYU-NS [facility], [address], [place], [place], [address] , [place] tel:[phone] Judson mmp (chief complaint) Lateral epicondylitis of [...] persistent asthma without complication Judson Ross. [address] [facility], [place], [place], [address], [place]. tel:[phone] Referring Provider: Cody Stein, [address] [facility] [address], [place], [address] . tel:[phone] [facility], [address], [place], [place], [address] , [place] tel:[phone] Judson Chronic pain of left kneeOther chronic pain 9 [facility]. [address] [place] [address], [address] [facility], [place], [place], [address], [place]. tel:[phone] [facility], [address], [place], [place], [address] , [place] tel:[phone] Judson Left knee pain. (chief complaint) Chronic pain of left knee 9 [facility]. [address] [facility], [address] [facility], [place], [place], [id number], [place]. tel:[phone] Referring Provider: Cody Stein, [address] [facility] [address], [place], [address] . tel:[phone] [employer], [address], [place], [place], [id number] , [place] tel: [phone] Judson URI_ (chief complaint) Moderate persistent asthma with acute exacerbation Feb-3 0 9 [facility]. [address] [place] [address], [address], [place], [place], [id number], [place]. [phone] Referring Provider: Cody Stein, [address] [facility] [address], [place], [place], [address] . tel:[phone] [employer], [address], [place], [place], [address] , [place] tel: [phone] Judson Lumbosacral radiculopathy due to degenerative joint [...] of right elbow [address] [facility] [address], [place], [place], [address], [place]. tel:[phone] Referring Provider: Cody Stein, [address] [facility] [address], [place], [address] . 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 [address] [place], [place], [id number], . tel:[phone] Referring Provider: Cody Stein, [address] [place], [address] . tel:[phone] [employer], [address], [place], [place], [address] , [place] tel: [phone] Judson Lumbosacral radiculopathy due to degenerative joint [...] D level 2-201 8 Judson Ross. [address] [place], [place], [address], [place]. tel:[phone] Referring Provider: Cody Stein, [address] [place], [address] . tel:[phone] [employer], [address], [place], [place], [address] , [place] tel: [phone] Judson Lumbosacral radiculopathy due to degenerative joint [...] location 0 2 8 Judson Ross. [address] [facility], [place], [place], [address], . tel:[phone] Referring Provider: Cody Stein, [address] [facility] [address], [place], [address] . tel:[phone] [employer], [address], [place], [place], [address] , tel: [phone] Judson Type 2 diabetes mellitus without complication, unspecified halfway insulin use statusHypertensi ve heart disease without heart failureMixed hyperlipidemiaPr imary osteoarthritis of both hipsSpondylosis of cervical region without myelopathy or radiculopathySci atica, unspecified lateralityIrrita ble bowel syndrome with diarrheaGastroes ophageal reflux disease, esophagitis presence not specifiedInsomni a, unspecified typePainful menstrual flowCurrent smokerGanglion cystRight wrist tendonitisRight carpal tunnel syndromeLumbosac ral radiculopathy due to degenerative joint disease of spine 7 Judson Ross. [address] [facility], [place], [place], [address], . tel:[phone] Referring Provider: Cody Stein, [address] [place] [address] [address], [place], [address] . tel:[phone] [employer], [address], [place], [place], [address] , tel: [phone] Judson Type 2 diabetes mellitus without complication, unspecified granite fabricator insulin use statusHypertensi ve heart disease without heart failureInsomnia, unspecified typePrimary osteoarthritis of both hipsSpondylosis of cervical region without myelopathy or radiculopathyPai nful menstrual flowIrritable bowel syndrome with diarrheaCurrent smokerInfluenza vaccination declinedGastroes ophageal reflux disease, esophagitis presence not specifiedSciatic a, unspecified lateralityStomac h painMedication monitoring encounter 7 Judson Ross. [address] [place] [address], [place], [place], [id number], . tel:[phone] Referring Provider: Cody Stein, [address] [place] [address], [place], [address] . tel:[phone] [employer], [address], [place], [place], [address] , [place] tel: [phone] Judson Primary osteoarthritis of both hipsSpondylosis of cervical region without myelopathy or radiculopathyHyp ertensive heart disease without heart failureType 2 diabetes mellitus without complication, unspecified granite fabricator insulin use statusInsomnia, unspecified typeIrritable bowel syndrome with diarrheaPainful menstrual flowCurrent smoker 7 Judson Ross. [address] [place] [address], [id number], . tel:[phone] Referring Provider: Cody Stein, [address] [place] [address], [place], [address] . tel:[phone] [employer], [address], [place], [place], [address] , [place] tel: [phone] Judson Primary osteoarthritis of both hipsSpondylosis of cervical region without myelopathy or radiculopathyHyp ertensive heart disease without heart failureType 2 diabetes mellitus without complication, unspecified halfway insulin use statusInsomnia, unspecified typeIrritable bowel syndrome with diarrheaMixed hyperlipidemia 7 Judson Ross. [address] [place] [address], [place], [place], [address], [place]. tel:[phone] Referring Provider: Cody Stein, [address] [place] [address], [place], [address] . tel:[phone] [employer], [address], [place], [place], [address] , [place] tel: [phone] Judson Primary osteoarthritis of both hipsSpondylosis of cervical region without myelopathy or radiculopathyHyp ertensive heart disease without heart failureType 2 diabetes mellitus without complication, unspecified halfway insulin use statusInsomnia, unspecified type 6 Judson Ross. [address] [place], [place], [address], . tel:[phone] Referring Provider: Cody Stein, [address] [facility], [place], [address] . tel:[phone] [facility], [address], [place], [place], [address] , tel: [phone] Judson Strain of left hip, initial encounterLeft shoulder strain, initial encounter 6 Rowdy Lynch. [address] [place], [place], [address]. tel:[phone] Referring Provider: Cody Stein, [address] [place], [address] . tel:[phone] [facility], [address], [place], [place], [address] , tel: [phone] Judson Chronic obstructive pulmonary disease, unspecifiedOther allergic rhinitisMixed hyperlipidemiaOt her fatigueInsomnia, persistentLocali zed osteoarthritis of lumbar spine 6 Judson Ross. [address] [facility], [place], [place], [address], . tel:[phone] Referring Provider: Cody Stein, [address] [facility], [place], [address] . tel:[phone] [facility], [address], [place], [place], [address] , [place] tel: [phone] Judson Sciatica, unspecified lateralityCoughC hronic obstructive pulmonary disease, unspecifiedOther allergic rhinitisMorbid obesity, unspecified obesity type 5 Judson Ross. [address] [facility], [place], [place], [address], . [phone] Referring Provider: Cody Stein, [address] [facility] [place], [address] . tel:[phone] Family History Family Member Type Diagnosis Age [...] name Insurance type Covered alliance party ID Sultana ramirez(s) BCBS ACCESS CHOICE [id number] BCBS ACCESS CHOICE BL [id number] BCBS INACTIVE OUT OF STATE [id number] BCBS INACTIVE OUT OF STATE [id number] Social History Type Description Quantity Date Captured [...] Order SC REENING MAMMOGRAM (CAD) Bilateral breast (28154), Body Site: breast, Sent on: Sent Future Order: Radiology Order SC REENING MAMMOGRAM (CAD) Bilateral breast ([id number]), Body Site: breast, Sent on: Sent Future Order: Radiology Order SC REENING MAMMOGRAM (CAD) Bilateral breast ([id number]), Body Site: breast, Sent on: Sent Future Order: Lab Order Urine Cu lture, Routine ([id number]), Collected on: , Sent on: Sent Future Order: Lab Order UA- Dips tick (office Lab) ([id number]), Collected on: Ordered Future Order: Radiology Order SC REENING MAMMOGRAM (CAD) Bilateral breast ([id number]), Body Site: breast, Sent on: Sent History [...] or exercise.Smoker: No change in habits reported. [facility] Pre-Op Clearance : Pt is overall [...] scheduled for this . No other complaints. [facility] HTN: Pt is med c ompliant. [...] stretching and massage, local pressure improves pain. [facility] HTN: Pt is manag ing through [...] PCOS: Pt is med compliant. F/u with [facility] as scheduled. No complaints. Metabolic syndrome: per [...] PCOS: Pt is med compliant. F/u with [facility] as scheduled. No complaints. Metabolic syndrome: per [...] PCOS: Pt is med compliant. F/u with [facility] as scheduled. No complaints. Metabolic syndrome: per [...] with Dr. Tracy (spelling?), hand surgeon at [facility]. 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 Has not tried otc diarrhea mediations. [...] Pt has fhx of lymphoma but last research program intern visit found no cause for concernMetabolic syndrome: [...] that of lymphoma. Pt followed up with research program intern and he could not find anything wrong [...] after cutting back on her hours at [employer]. *depression Patient presents today with persistent feelings [...] has tried a knee brace from the [employer] and Ibuprofen with minimal relief. URI_ Patient [...] Pain Management. Encourage to complete stretches and emoji-zl-imamtl exercises. Encouraged patient to try and lose some weight. Will monitor. Related to Other spondylosis with radiculopathy, cervical region Unchanged. Insurance will no longer pay for injections. Continue current treatment with Oxycodone 10mg-325mg 1 tab four times daily. Continue following up with Pain Management. Continue following up with Dr. Dolan, orthopaedic surgeon as scheduled. Encourage to complete stretches and tjdat-xh-nfkcxy exercises. Encouraged patient to try and lose some weight. Will monitor. Related to Other spondylosis with radiculopathy, lumbosacral region Unchanged. Insurance will no longer pay for injections. Continue current treatment with Oxycodone 10mg-325mg 1 tab four times daily. Continue following up with Pain Management. Encourage to complete stretches and byliz-lw-rqsbqm exercises. Encouraged patient to try and lose some weight. Will monitor. Related to Spondylosis, unspecified Unchanged. Insurance will no longer pay for injections. Continue current treatment with Oxycodone 10mg-325mg 1 tab four times daily. Continue following up with Pain Management. Encourage to complete stretches and nodmi-cb-sothui exercises. Encouraged patient to try and lose [...] Pain Management. Encourage to complete stretches and rosen-ne-gjkrxi exercises. Encouraged patient to try and lose [...] as scheduled. Encourage to complete stretches and jjtee-ip-jmeoda exercises. Encouraged patient to try and lose some weight. Will monitor. Related to Other spondylosis with radiculopathy, lumbosacral region Unchanged. Insurance will no longer pay for injections. Continue current treatment with Oxycodone 10mg-325mg 1 tab four times daily. Continue following up with Pain Management. Encourage to complete stretches and evzbz-or-wayzce exercises. Encouraged patient to try and lose some weight. Will monitor. Related to Spondylosis, unspecified S/p 2 level ACDF wit h plating. With improved symptoms. PDMP has been checked. Continue current treatment with Oxycodone 10mg-325mg 1 tab four times daily. Continue following up with Pain Management. Encourage to complete stretches and mwrce-ry-zrpijz exercises. Encouraged patient to try and lose [...] as scheduled. Encourage to complete stretches and ftxph-bl-rtssmf exercises. Encouraged patient to try and lose some weight. Will monitor. Related to Other spondylosis with radiculopathy, lumbosacral region Unchanged. Insurance will no longer pay for injections. Continue current treatment with Oxycodone 10mg-325mg 1 tab four times daily. Continue following up with Pain Management. Encourage to complete stretches and bktkx-cz-weknnf exercises. Encouraged patient to try and lose some weight. Will monitor. Related to Unilateral primary osteoarthritis, left knee S/p 2 level ACDF wit h plating. With improved symptoms. PDMP has been checked. Continue current treatment with Oxycodone 10mg-325mg 1 tab four times daily. Continue following up with Pain Management. Encourage to complete stretches and zehmw-oo-gqptke exercises. Encouraged patient to try and lose some weight. Will monitor. Related to Other spondylosis with radiculopathy, cervical region Unchanged. Insurance will no longer pay for injections. Continue current treatment with Oxycodone 10mg-325mg 1 tab four times daily. Continue following up with Pain Management. Encourage to complete stretches and ifxdt-ox-iahmao exercises. Encouraged patient to try and lose [...] as scheduled. Encourage to complete stretches and oqevt-zr-xdrrxp exercises. Encouraged patient to try and lose [...] as scheduled. Encourage to complete stretches and eakdt-qp-vekdye exercises. Encouraged patient to try and lose [...] as scheduled. Encourage to complete stretches and psmpx-cr-kmzjqj exercises. Encouraged patient to try and lose [...] as scheduled. Encourage to complete stretches and uokor-un-fcicxs exercises. Encouraged patient to try and lose [...] as scheduled. Encourage to complete stretches and czrag-hk-kvyyxb exercises. Encouraged patient to try and lose [...] as scheduled. Encourage to complete stretches and icwyy-qa-gfazpn exercises. Encouraged patient to try and lose some weight. Will monitor. Related to Other chronic pain Unchanged. Continue current treatment with Hydrocodone 5-325mg 1 tab TID prn, Nabumetone 750mg 1 tab BID and Gabapentin 300mg 2 tabs TID. Continue following up with orthopaedic surgeon as scheduled. Encourage to complete stretches and vdvhp-wf-lftcop exercises. Encouraged patient to try and lose [...] as scheduled. Encourage to complete stretches and tpeer-ls-twuteh exercises. Encouraged patient to try and lose some weight. Will monitor. Related to Unilateral primary osteoarthritis, left knee Unchanged. Continue current treatment with Hydrocodone 5-325mg 1 tab TID prn, Nabumetone 750mg 1 tab BID and Gabapentin 300mg 2 tabs TID. Continue following up with orthopaedic surgeon as scheduled. Encourage to complete stretches and wsivd-wr-chzbpz exercises. Encouraged patient to try and lose [...] as scheduled. Encourage to complete stretches and nbegl-vg-phxtsy exercises. Encouraged patient to try and lose [...] as scheduled. Encourage to complete stretches and wgdgp-by-csbpis exercises. Encouraged patient to try and lose some weight. Will monitor. Related to Other chronic pain Unchanged. Continue current treatment with Hydrocodone 5-325mg 1 tab TID prn, Nabumetone 750mg 1 tab BID and Gabapentin 300mg 2 tabs TID. Continue following up with orthopaedic surgeon as scheduled. Encourage to complete stretches and euoff-wv-dvgydf exercises. Encouraged patient to try and lose [...] as scheduled. Encourage to complete stretches and tyzok-kc-txjswi exercises. Encouraged patient to try and lose some weight. Will monitor. Related to Lumbosacral radiculopathy due to degenerative joint disease of spine Unchanged. Continue current treatment with Hydrocodone 5-325mg 1 tab TID prn, Nabumetone 750mg 1 tab BID and Gabapentin 300mg 2 tabs TID. Continue following up with orthopaedic surgeon as scheduled. Encourage to complete stretches and lxgob-yb-zsiebm exercises. Encouraged patient to try and lose [...] as scheduled. Encourage to complete stretches and yznkz-iq-xmmuwh exercises. Encouraged patient to try and lose some weight. Will monitor. Related to Osteoarthritis of spine with radiculopathy, cervical region Unchanged. Continue current treatment with Hydrocodone 5-325mg 1 tab TID prn, Nabumetone 750mg 1 tab BID and Gabapentin 300mg 2 tabs TID. Continue following up with orthopaedic surgeon as scheduled. Encourage to complete stretches and sitnd-ii-ymlgmp exercises. Encouraged patient to try and lose [...] as scheduled. Encourage to complete stretches and cpvca-tn-nqapky exercises. Encouraged patient to try and lose some weight. Will monitor. Related to Unilateral primary osteoarthritis, left knee Unchanged. Continue current treatment with Hydrocodone 5-325mg 1 tab TID prn, Nabumetone 750mg 1 tab BID and Gabapentin 300mg 2 tabs TID. Continue following up with orthopaedic surgeon as scheduled. Encourage to complete stretches and ilarg-ii-jvzhvg exercises. Encouraged patient to try and lose some weight. Will monitor. Related to Osteoarthritis of spine with radiculopathy, cervical region Unchanged. Continue current treatment with Hydrocodone 5-325mg 1 tab TID prn, Nabumetone 750mg 1 tab BID and Gabapentin 300mg 2 tabs TID. Continue following up with orthopaedic surgeon as scheduled. Encourage to complete stretches and ukeoj-ly-vpmdhw exercises. Encouraged patient to try and lose some weight. Will monitor. Related to Spondylosis Unchanged. Continue current treatment with Hydrocodone 5-325mg 1 tab TID prn, Nabumetone 750mg 1 tab BID and Gabapentin 300mg 2 tabs TID. Continue following up with orthopaedic surgeon as scheduled. Encourage to complete stretches and khbov-pn-kbkmlt exercises. Encouraged patient to try and lose [...] as scheduled. Encourage to complete stretches and dptbb-rn-nytcrq exercises. Encouraged patient to try and lose [...] as scheduled. Encourage to complete stretches and kedmo-za-damqhi exercises. Encouraged patient to try and lose [...] as scheduled. Encourage to complete stretches and rqtoa-mh-acnolw exercises. Encouraged patient to try and lose some weight. Will monitor. Related to Osteoarthritis of spine with radiculopathy, cervical region Unchanged. Continue current treatment with Hydrocodone 5-325mg 1 tab TID prn, Nabumetone 750mg 1 tab BID and Gabapentin 300mg 2 tabs TID. Continue following up with orthopaedic surgeon as scheduled. Encourage to complete stretches and iqxhg-ry-yradlj exercises. Encouraged patient to try and lose [...] as scheduled. Encourage to complete stretches and mjdkx-em-hmagcw exercises. Encouraged patient to try and lose some weight. Will monitor. Related to Lumbosacral radiculopathy due to degenerative joint disease of spine Unchanged. Continue current treatment with Hydrocodone 5-325mg 1 tab TID as needed, Nabumetone 750mg 1 tab BID and Gabapentin 300mg 2 tabs QID. Continue following up with orthopaedic surgeon as scheduled. Encourage to complete stretches and jsyvv-ep-vtoouz exercises. Encouraged patient to try and lose [...] as scheduled. Encourage to complete stretches and kyahb-fv-jzbymx exercises. Encouraged patient to try and lose some weight. Will monitor. Related to Unilateral primary osteoarthritis, left knee Unchanged. Continue current treatment with Hydrocodone 5-325mg 1 tab TID as needed, Nabumetone 750mg 1 tab BID and Gabapentin 300mg 2 tabs QID. Continue following up with orthopaedic surgeon as scheduled. Encourage to complete stretches and hbbpe-vj-wjyipy exercises. Encouraged patient to try and lose [...] as scheduled. Encourage to complete stretches and ruxpp-ql-vghiew exercises. Encouraged patient to try and lose [...] as scheduled. Encourage to complete stretches and zqymd-mp-zxeosv exercises. Encouraged patient to try and lose [...] as scheduled. Encourage to complete stretches and gxieo-of-awjcly exercises. Encouraged patient to try and lose [...] as scheduled. Encourage to complete stretches and hhswc-im-ntzeux exercises. Encouraged patient to try and lose [...] as scheduled. Encourage to complete stretches and cmxni-cq-aagfzb exercises. Encouraged patient to try and lose some weight. Will monitor. Related to Unilateral primary osteoarthritis, left knee Unchanged. Continue current treatment with Hydrocodone 5-325mg 1 tab TID as needed, Relafen 750mg 1 tablet BID, and Gabapentin 300mg 2 tabs QID. Continue following up with orthopaedic surgeon as scheduled. Encourage to complete stretches and dvflz-nd-xqsufs exercises. Encouraged patient to try and lose some weight. Will monitor. Related to Spondylosis Unchanged. Continue current treatment with Hydrocodone 5-325mg 1 tab TID as needed, Relafen 750mg 1 tablet BID, and Gabapentin 300mg 2 tabs QID. Continue following up with orthopaedic surgeon as scheduled. Encourage to complete stretches and qttjw-ns-vtbhel exercises. Encouraged patient to try and lose [...] screening mammogram in office today.RHM: Pt received [email or web address] COVID-19 vaccine x1 on 06/14/2021 and is [...] as scheduled. Encourage to complete stretches and dlnoz-fj-affrop exercises. Encouraged patient to try and lose [...] as scheduled. Encourage to complete stretches and abdyt-qc-wnhiru exercises. Encouraged patient to try and lose some weight. Will monitor. Related to Osteoarthritis of spine with radiculopathy, cervical region Stable. Continue cur rent treatment with Hydrocodone 5-325mg 1 tab TID as needed, Relafen 750mg 1 tablet BID, and Gabapentin 300mg 2 tabs QID. Continue following up with orthopaedic surgeon as scheduled. Encourage to complete stretches and qdewy-ol-uktwtv exercises. Encouraged patient to try and lose [...] foot edema. Encourage to complete stretches and qhfqy-qb-jbbpja exercises. Encouraged patient to try and lose some weight. Will monitor. Related to Unilateral primary osteoarthritis, left knee Stable. Continue cur rent treatment with Hydrocodone 5-325mg 1 tab TID as needed, Relafen 750mg 1 tablet BID, and Gabapentin 300mg 2 tabs QID. Continue following up with orthopaedic surgeon as scheduled. Encourage to complete stretches and qambi-xe-tqmcjh exercises. Encouraged patient to try and lose some weight. Will monitor. Related to Spondylosis Stable. Continue cur rent treatment with Hydrocodone 5-325mg 1 tab TID as needed, Relafen 750mg 1 tablet BID, and Gabapentin 300mg 2 tabs QID. Continue following up with orthopaedic surgeon as scheduled. Encourage to complete stretches and viomh-oo-fetoqs exercises. Encouraged patient to try and lose [...] vigilant self-foot exams. Will continue to monitor.Labs: [id number]: Able to self-manage condition. Goals: Your goal [...] wrist See plan #12Labs: CM P, CBC, [id number] up in 3 months or sooner if [...] as scheduled. Encourage to complete stretches and ojtzk-nd-vyyvsc exercises. Encouraged patient to try and lose [...] as scheduled. Encourage to complete stretches and afyip-gh-lhkbmn exercises. Encouraged patient to try and lose some weight. Will monitor. Related to Osteoarthritis of spine with radiculopathy, cervical region Symptomatic. INCREAS E Hydrocodone 5-325mg 1 tab TID as needed. Continue current treatment - Relafen 750mg 1 tablet BID, and Gabapentin 300mg 2 tabs QID. Continue following up with orthopaedic surgeon as scheduled. Encourage to complete stretches and lklsi-yy-akxtqm exercises. Encouraged patient to try and lose [...] as scheduled. Encourage to complete stretches and elnyh-pa-ypijxc exercises. Encouraged patient to try and lose some weight. Will monitor. Related to Lumbosacral radiculopathy due to degenerative joint disease of spine Symptomatic. INCREAS E Hydrocodone 5-325mg 1 tab TID as needed. Continue current treatment - Relafen 750mg 1 tablet BID, and Gabapentin 300mg 2 tabs QID. Continue following up with orthopaedic surgeon as scheduled. Encourage to complete stretches and xhsxa-rf-lvoify exercises. Encouraged patient to try and lose [...] tabs QID. Encourage to complete stretches and ljqbx-ey-kqbcsa exercises. Encouraged patient to try and lose some weight. Will monitor. Related to Sciatica, unspecified laterality Symptomatic. Continu e following up with orthopaedic surgeon as scheduled. Continue with Hydrocodone 5-325mg 1 tab every 12 hours as needed, Relafen 750mg 1 tablet BID, and Gabapentin 300mg 2 tabs QID. Encourage to complete stretches and fnmou-gd-feuqdh exercises. Encouraged patient to try and lose some weight. Will monitor. Related to Spondylosis Symptomatic. Continu e following up with orthopaedic surgeon as scheduled. Continue with Hydrocodone 5-325mg 1 tab every 12 hours as needed, Relafen 750mg 1 tablet BID, and Gabapentin 300mg 2 tabs QID. Encourage to complete stretches and agqqt-up-lqfptr exercises. Encouraged patient to try and lose some weight. Will monitor. Related to Osteoarthritis of spine with radiculopathy, cervical region Symptomatic. Continu e following up with orthopaedic surgeon as scheduled. Continue with Hydrocodone 5-325mg 1 tab every 12 hours as needed, Relafen 750mg 1 tablet BID, and Gabapentin 300mg 2 tabs QID. Encourage to complete stretches and dqzob-ay-zddbii exercises. Encouraged patient to try and lose some weight. Will monitor. Related to Lumbosacral radiculopathy due to degenerative joint disease of spine Symptomatic. Continu e following up with orthopaedic surgeon as scheduled. Continue with Hydrocodone 5-325mg 1 tab every 12 hours as needed, Relafen 750mg 1 tablet BID, and Gabapentin 300mg 2 tabs QID. Encourage to complete stretches and froos-um-plntcs exercises. Encouraged patient to try and lose [...] tabs QID. Encourage to complete stretches and nwlil-lg-fqxisy exercises. Encouraged patient to try and lose some weight. Will monitor. Related to Unilateral primary osteoarthritis, left knee Controlled. Continue following up with orthopaedic surgeon as scheduled. Continue with Hydrocodone 5-325mg 1 tab every 12 hours as needed. STOP Feldene 20mg 1 tab daily. START with Relafen 750mg 1 tablet BID. Continue with Gabapentin 300mg 2 tabs QID. Encourage to complete stretches and rplyh-bd-mgxddv exercises. Encouraged patient to try and lose [...] tabs QID. Encourage to complete stretches and bfprg-mh-bgijyc exercises. Encouraged patient to try and lose [...] tabs QID. Encourage to complete stretches and chtoe-mv-ygzcjy exercises. Encouraged patient to try and lose some weight. Will monitor. Related to Spondylosis Symptomatic. Continu e following up with orthopaedic surgeon as scheduled. Continue with Hydrocodone 5-325mg 1 tab every 6 hours as needed. STOP Feldene 20mg 1 tab daily. START Relafen 750mg 1 tablet BID Continue with Gabapentin 300mg 2 tabs QID. Encourage to complete stretches and knwhu-ds-jtxquh exercises. Encouraged patient to try and lose [...] as directed. Encourage to complete stretches and esitz-vh-trgcmi exercises. Encouraged patient to try and lose some weight. Will monitor. Related to Sciatica, unspecified laterality Stable. Will continu e to monitor. Notify for worsening symptoms. Related to Irritable bowel syndrome with diarrhea WBC 16.78 on 019. Will refer to research program intern if WBC remains elevated today. Will monitor. [...] as directed. Encourage to complete stretches and jcfje-tr-rcsvov exercises. Encouraged patient to try and lose [...] as directed. Encourage to complete stretches and jssvb-ld-cyivcy exercises. Encouraged patient to try and lose [...] as directed. Encourage to complete stretches and qcuyc-vs-ptlygq exercises. Encouraged patient to try and lose [...] tab QHS. Encourage to complete stretches and gohwe-tz-zfktst exercises. Will continue to monitor. Related to [...] as directed. Encourage to complete stretches and rxqyl-po-wncifw exercises. Encouraged patient to try and lose [...] as directed. Encourage to complete stretches and noveo-gp-fmzsbd exercises. Encouraged patient to try and lose some weight. Will monitor. Related to Lateral epicondylitis of right elbow WBC 16.78 on 019. Will refer to research program intern if WBC remains elevated today. Will monitor. Related to Leukocytosis, unspecified type Pain persists. Judy nue following up with orthopaedic surgeon as scheduled. Continue with Hydrocodone 5-325mg 1 tab every 6 hours as needed and Feldine 20mg 1 tab daily. Gabapentin 300mg 2 tabs QID and Flexeril 10mg 1 tab QHS as directed. Encourage to complete stretches and wfqcm-df-etyjwo exercises. Encouraged patient to try and lose [...] as directed. Encourage to complete stretches and afclg-cw-ydjucs exercises. Encouraged patient to try and lose [...] as directed. Encourage to complete stretches and zbmav-cg-qoyoug exercises. Encouraged patient to try and lose [...] tab QHS. Encourage to complete stretches and hdofo-bd-cbahuu exercises. Will continue to monitor. Related to [...] as directed. Encourage to complete stretches and avsop-uy-sigese exercises. Encouraged patient to try and lose [...] as directed. Encourage to complete stretches and czdar-ja-rziozh exercises. Encouraged patient to try and lose some weight. Will monitor. Related to Lumbosacral radiculopathy due to degenerative joint disease of spine Pain persists. Judy nue with Gabapentin 300mg 2 tabs QID and Flexeril 10mg 1 tab QHS as directed. Encourage to complete stretches and qayks-pg-hmojfc exercises. Encouraged patient to try and lose some weight. Will monitor. Related to Lateral epicondylitis of right elbow WBC 19.61 on 019 and 19.23 on 05/20/2019. Will refer to research program intern if WBC remains elevated today. Will monitor. [...]
[2025-04-10 16:59] VITALS: BP 164/93; PULSE 87; RESP 16; O2SAT 100
--- NOTE | 2025-04-10 17:19 | ED_ITS ---
HPI - Skin/Abscess/Foreign Bdy General Chief complaint: Skin/Abscess/Foreign Body Stated complaint: Poss incision infection Time Seen by Provider: 04/10/25 17:07 Source: patient Mode of arrival: ambulatory Limitations: no limitations History of Present Illness HPI narrative: This is a 44 year old female that presents to the ER for right wrist pain. Reports she recently underwent fasciotomy at [facility]. She stopped Bactrim about a week ago due to an infection in the forearm. She presents today for continued pain, redness, swelling. She has a follow-up appointment with her hand surgeon, but it is not until next . Denies fevers. Related Data Home Medications ?Medication ?Instructions ?Recorded ?Confirmed ?Last Taken ?Type fluticasone 250 mcg-salmeterol 50 1 ea inhalation BID 02/14/24 02/12/25 02/05/25 History mcg/dose blistr powdr for inhalation metformin 500 mg tablet,extended 500 mg PO BID 02/14/24 02/12/25 10/14/24 History release 24 hr buspirone 15 mg tablet 15 mg PO TID 09/26/24 02/12/25 02/05/25 History Allergies Allergy/AdvReac Type Severity Reaction Status Date / Time No Known Allergies Allergy Verified 04/10/25 16:54 Review of Systems 2 Review of Systems: CONSTITUTIONAL: Denies fever SKIN: Reports redness and swelling NEUROLOGIC: Denies numbness All systems reviewed & are unremarkable except as noted in HPI and below PMFSH Past Medical History Medical History Leukocytosis Chronic elevation with hematology consult in past. 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 Surgical History Surgical History History of appendectomy History of cholecystectomy History of cervical spinal surgery (03/08/23) anterior cervical discectomy and fusion Family History Family History Father Hypertension Patient's father is in good health Cerebrovascular accident Family history of heart disease in male family member before age 55 Mother Patient's mother is in good health Family history of diabetes mellitus in first degree relative Sibling Family history of diabetes mellitus in first degree relative Social History Social History Social History: Surrogate medical decision maker: Chinmay Muñoz, spouse ([phone]). Code status: Full code. Smoking packs per day: 1 Smoking cigarettes per day: 20.0 Years smoked: 30 Smoking pack-years: 30.00 Smoking status: Current every day smoker Tobacco type: cigarettes Second hand tobacco smoke exposure: Yes Alcohol intake: never Alcohol use details: rarely drinks, a couple time a month Substance use: current Substance use type: marijuana Other substance usage details: hs for insomnia Last use: Marijuana 10/14/24 Do You Feel Safe in your Home?: Yes Lack of Transportation: No Lack of Food: Never True Current Housing: I Have Housing Concerned About Future Housing: No Difficulty Paying Gas/Electric Bills: No Difficulty Paying for Meds: No Currently Unemployed: No Education: Grade School Difficulty w/ Childcare or Family Care: No Living arrangements: with family Additional living arrangements comments: Lives with father and . 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 Spiritual care concerns: No Agree to blood products: Yes Exam 2 Narrative: GENERAL: Well-appearing, well-nourished, and in no acute distress. HEAD: Normocephalic, atraumatic. EYES: EOMI. CHEST: No respiratory distress. HEART: Regular rate EXTREMITIES: Normal range of motion. No edema. Compartments are soft. Normal radial pulse. Normal sensation. Several incisions on the right forearm. Left wrist incision palmar/ulnar aspect with mild surrounding redness and swelling. No abnormal drainage or fluctuance SKIN: Warm, dry, no rash. NEURO: No focal deficits. Alert and oriented x3. PSYCH: Normal mood and affect Course Course Emergency Course: Patient updated on workup and agrees with plan of care Consultations Consultation #1: Spoke with Dr. Prieto about patient and workup. Patient will be re-started on Bactrim, follow up at her scheduled appointment Date: 04/10/25 Vital Signs Vital signs: Vital Signs Temperature 98 F 04/10/25 15:35 Pulse Rate 86 04/10/25 15:35 Respiratory Rate 18 04/10/25 15:35 Blood Pressure 171/91 H 04/10/25 15:35 Pulse Oximetry 99 04/10/25 15:35 Oxygen Delivery Room Air 04/10/25 15:35 Temperature 98 F 04/10/25 15:35 Pulse Rate 88 04/10/25 19:28 Respiratory Rate 18 04/10/25 19:28 Blood Pressure 152/88 H 04/10/25 19:28 Pulse Oximetry 99 04/10/25 19:28 Oxygen Delivery Room Air 04/10/25 15:35 MDM - Skin/Abscess/Foreign Bdy MDM Narrative Medical decision making narrative: Patient presents to the emergency department for redness and swelling of her incisions. Recently underwent fasciotomy for compartment syndrome in the beginning of February. Has been following with plastics at [facility]. Reports over the last couple of days she has had worsening pain, some redness and swelling of her right wrist. She is afebrile and nontoxic appearing. Her compartments are soft, she has a normal radial pulse. No fluctuance to suggest an abscess. CBC with leukocytosis to 16.3, looking at her past records leukocytosis seems to be chronic for her. She has seen Hematology for this in the past. Inflammatory markers are not elevated. Wrist a x-ray shows degenerative changes, no acute findings. Ultrasound venous Doppler without evidence of DVT. Spoke with Dr. Prieto about patient and workup. Patient will be re-started on Bactrim, follow up at her scheduled appointment. She was given warnings to return to the ER Differential Diagnosis Differential diagnosis: Likely abscess of skin or subcutaneous tissue, cellulitis and other (chronic pain, DVT) Lab Data Attestation: I reviewed the patient's lab results. 04/10/25 18:02 04/10/25 18:02 Labs: Lab Results 04/10/25 Range/Units 18:02 WBC 16.3 H (4.5-10.0) K/mm3 RBC 5.31 (4.2-5.4) M/mm3 Hgb 15.9 H (12.0-15.0) g/dL Hct 48.0 H (37.0-47.0) % MCV 90.4 (80-100) fl MCH 29.9 (26-34) pg MCHC 33.1 (32-36) g/dl RDW 14.0 (11.5-14.5) % Plt Count 337 (150-375) k/mm3 MPV 9.0 (7.4-10.4) fl Immature Gran % (Auto) 0.8 H (0-0.5) % Neut % (Auto) 64.1 (45.5-73.1) % Lymph % (Auto) 27.3 (18.3-44.2) % [place] % (Auto) 5.9 (2.6-8.5) % Eos % (Auto) 1.3 (0-4.4) % Baso % (Auto) 0.6 (0.2-1.2) % Lymph # (Auto) 4.46 H (0.9-3.2) K/mm3 [place] # (Auto) 1.0 H (0.1-0.6) K/mm3 Eos # (Auto) 0.2 (0-0.3) K/mm3 Baso # (Auto) 0.1 (0.0-0.1) K/mm3 Abs Immat Gran (auto) 0.13 H (0.00-0.031) K/mm3 Absolute Neuts (auto) 10.5 H (1.3-6.7) K/mm3 Absolute Nucleated RBC 0.000 (0.0-0.012) K/mm3 Nucleated RBC % 0.0 (0.0-0.2) % ESR 3 (0-20) mm/hr PT 13.3 (11.1-14.7) Seconds INR 1.0 APTT 28.1 (22.3-36.8) Seconds Sodium 140 (137-145) mmol/L Potassium 3.7 (3.4-5.0) mmol/L Chloride 105 (98-107) mmol/L Carbon Dioxide 25 (22-30) mmol/L Anion Gap 10 (4-12) mmol/L BUN 7 (7-17) mg/dL Creatinine 0.60 L (0.7-1.0) mg/dL Estim Creat Clear Calc 97 ml/min Estimated GFR > 60 (59 - ) Glucose 104 (65-110) mg/dL Calcium 9.3 (8.4-10.2) mg/dL Total Bilirubin 0.7 (0.2-1.3) mg/dL AST 45 H (14-36) U/L ALT 43 H (6-35) U/L Alkaline Phosphatase 88 (38-126) U/L C-Reactive Protein < 0.5 (<1.0) mg/dL Total Protein 10.0 H (6.3-8.2) g/dL Albumin 4.8 (3.5-5.1) g/dL Imaging Data Radiologist's impression: ITS Impressions Venous Doppler Study 04/10/25 17:50 IMPRESSION: Negative right upper extremity venous US. No deep vein thrombosis. Wrist X-Ray 04/10/25 19:27 IMPRESSION: Degenerative disease, without acute fracture. Critical Care Time Critical Care Time Critical Care Time: No Discharge Plan Discharge Clinical Impression: Cellulitis Qualifiers: Site of cellulitis: extremity Site of cellulitis of extremity: upper extremity Laterality: right Qualified Code(s): L03.113 - Cellulitis of right upper limb Patient Disposition: Home Condition: Stable Instructions: Antibiotic Form, Cellulitis (ED) Additional Instructions: Return if symptoms worsen or concerns: any increase in redness, swelling, pain or fever over 101 Take antibiotics as directed. Over the counter pain medication as needed. Prescribed pain medication as needed Follow up with your plastic surgeon at your scheduled appointment Patient Language: Ug[place] Prescriptions: New sulfamethoxazole-trimethoprim 800-160 mg tablet 1 tablet PO Q12H 7 Days Qty: 14 0RF cyclobenzaprine 10 mg tablet 10 mg PO TID PRN (Reason: muscle spasm) Qty: 10 0RF No Action fluticasone propion-salmeterol 250-50 mcg/dose blister with device 1 ea INHALATION BID metformin 500 mg tablet extended release 24 hr 500 mg PO BID Patient Comments: Takes for PCOS buspirone 15 mg tablet 15 mg PO TID pantoprazole 40 mg tablet,delayed release (DR/EC) 40 mg PO HS 28 Days Qty: 28 0RF dicyclomine 20 mg tablet 20 mg PO BID PRN (Reason: abdominal pain) Qty: 10 0RF hydrocodone-acetaminophen 5-325 mg tablet 1 - 2 tablet PO Q6H PRN (Reason: pain) Qty: 20 0RF Follow-up/Referrals: PHYSICIAN NOT ON STAFF,NONSTAFF [Primary Care Provider] -
[2025-04-10 18:02] VITALS: BP 139/81; PULSE 82; RESP 15; O2SAT 99
[2025-04-10] MEDS: HYDROcodone/acetaminophen (*CRX) 5-325 MG TABLET 1 TAB PO (18:05)
[2025-04-10] MEDS: ACETAMINOPHEN 325 MG TABLET 650 MG PO (18:05)
[2025-04-10 18:08] LABS: Basophils Absolute Auto 0.1 K/mm3 (0.0-0.1); Basophils Percent Auto 0.6 % (0.2-1.2); Eosinophils Absolute Auto 0.2 K/mm3 (0-0.3); Eosinophils Percent Auto 1.3 % (0-4.4); Hemoglobin 15.9 g/dL (12.0-15.0); Immature Granulocyte Absolute 0.13 K/mm3 (0.00-0.031); Immature Granulocyte Percent A 0.8 % (0-0.5); Lymphocytes Absolute Auto 4.46 K/mm3 (0.9-3.2); Lymphocytes Percent Auto 27.3 % (18.3-44.2); Mean Corpuscular HGB Conc 33.1 g/dl (32-36); Mean Corpuscular Hemoglobin 29.9 pg (26-34); Mean Corpuscular Volume 90.4 fl (80-100); Monocytes Percent Auto 5.9 % (2.6-8.5); Neutrophils Absolute Auto 10.5 K/mm3 (1.3-6.7); Neutrophils Percent Auto 64.1 % (45.5-73.1); Platelet Count Result 337 k/mm3 (150-375); Red Blood Count 5.31 M/mm3 (4.2-5.4); White Blood Count 16.3 K/mm3 (4.5-10.0)
[2025-04-10 18:20] LABS: Alanine Aminotransferase 43 U/L (6-35); Albumin Level 4.8 g/dL (3.5-5.1); Alkaline Phosphatase 88 U/L (38-126); Anion Gap 10 mmol/L (4-12); Aspartate Amino Transferase 45 U/L (14-36); Bilirubin,Total 0.7 mg/dL (0.2-1.3); Blood Urea Nitrogen 7 mg/dL (7-17); CRP < 0.5 mg/dL (<1.0); Calcium 9.3 mg/dL (8.4-10.2); Carbon Dioxide 25 mmol/L (22-30); Chloride 105 mmol/L (98-107); Estimated CRCL calculation 97 ml/min; Estimated Glomerular Filt Rate > 60; Glucose 104 mg/dL (65-110); Potassium 3.7 mmol/L (3.4-5.0); Sodium 140 mmol/L (137-145)
[2025-04-10 18:29] LABS: Partial Thromboplastin Time 28.1 Seconds (22.3-36.8); Prothrombin Time 13.3 Seconds (11.1-14.7)
--- OUTSIDE RECORDS SUMMARY | 2025-04-10 18:37 | XMS_ITS | Encounter Summary ---
Author Organization [facility] Address 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
--- OUTSIDE RECORDS SUMMARY | 2025-04-10 18:37 | XMS_ITS | Clinical Summary ---
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
--- OUTSIDE RECORDS SUMMARY | 2025-04-10 18:37 | XMS_ITS | Referral Summary ---
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) 03/13/2025 12:45 PM CDT Office Visit [facility] Surgery [address] [place] [address] Medical Office Building [address] [place] [phone] Lexis Renteria MD 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) 03/12/2025 Orders Only [facility] Surgery [address] [place] [address] Medical Office Building [address] [place] [phone] Lexis Renteria MD 03/12/2025 Orders Only [facility] Surgery [address] [place] [address] Medical Office Building [address] [place] [phone] aKrina Sharma RMA 03/04/2025 2:45 PM CDT Office Visit [facility] Surgery [address] [place] [address] 6th [place] [phone] Josiane Oliveira NP 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 02/19/2025 8:03 PM CDT - 02/27/2025 9:51 AM CDT Hospital Encounter [address] [phone] Magalie Archibald MD Currie, Kelly Bettina, MD 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); Acute postoperative pain; Compartment syndrome of forearm Discharge Disposition: Discharge to home or self care 02/26/2025 8:00 AM CDT - 02/26/2025 10:00 AM CDT Surgery [facility] Operating Room [facility] ([facility]) [address] [place] [address] Lexis Renteria MD RIGHT FOREARM SECONDARY CLOSURE OF SURGICAL WOUND 02/26/2025 8:15 AM CDT Anesthesia Event [facility] Operating Room [facility] ([facility]) [address] [place] [phone] Brandon Reyes MD 02/25/2025 Telephone [facility] Surgery [address] [place] [address] Advanced Medicine 6th [place] [phone] Shweta Perry RN 02/19/2025 9:10 PM CDT Anesthesia Event [facility] Operating Room [address] [place] [phone] Palomo Jaramillo MD Bharadwaj, Amy Robles MD 02/19/2025 9:35 PM CDT - 02/19/2025 11:35 PM CDT Surgery [facility] Operating Room [address] [place] [phone] Lexis Renteria MD FASCIOTOMY from Last 3 [...] tablet 1 hour before procedure. Will need lead driver to bring him. 2 tablet 11/30/19 [...] = 0.6 oz pur e alcohol) rare [facility] Utilities Answer Date Recorded In the past [...] any clubs o r organizations such as quaker groups, unions, fraternal or athletic groups, or [...] any time in the past 12 m [facility], were you homeless or living in a senior living (including now)? No 02/25/2025 Personal Safety Answer [...] PATHOGEN PANEL Routine 02/20/2025 10:39 AM CDT VA AN PROCEDURE PLACEHOLDER Routine 02/19/2025 9:34 PM CDT VA AN EMERGENT ENDOTRACHEAL AIRWAY Routine 02/19/2025 9:34 PM CDT RELEASE MEDIAN NERVE 02/19/2025 9:17 PM CDT 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 Case Notes Imtiaz [phone] @ 2032 RELEASE GUYONS CANAL 02/19/2025 9:17 PM CDT 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 Case Notes Imtiaz [phone] @ 2032 RELEASE CARPAL TUNNEL 02/19/2025 9:17 PM CDT 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 Case Notes Imtiaz [phone] @ 2032 FASCIOTOMY 02/19/2025 9:17 PM CDT 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 Case Notes Imtiaz [phone] @ 2032 POCT HCG, URINE Routine 02/19/2025 9:10 PM CDT URINALYSIS, MICROSCOPIC ONLY STAT 02/19/2025 9:09 PM CDT URINALYSIS AND REFLEX TO MICROSCOPIC AND CULTURE STAT 02/19/2025 9:09 PM CDT B CHECK SAMPLE STAT 02/19/2025 9:[address] BODY OUTSIDE CONSULT Routine 02/19/2025 8:43 PM CDT [facility] CRITICAL CARE ILL/INJURED PATIENT INIT 30-74 MIN [...] POCT ORDERABLES - DE VICE Final Result [facility] Department [place] [address] * Airway (02/26/2025 8:31 AM CDT) Narrative [...] DE VICE Final Result Performing Organization Address [facility] Co de Phone Number [facility] [place] [address] * Type and screen (02/26/2025 7:47 AM CDT) Pathologist [facility] ABO Rh A Positive Ashely, indirect Negative [facility] Blood 02/26/2025 7:47 AM CDT 02/26/2025 8:09 AM CDT Narrative [facility] - 02/26/2025 9:00 AM CDT Has the patient had Daratumumab or Isatuximab in the past 6 months?->Unknown Brandon Reyes MD LAB BLOOD BANK TEST ORD ERABLES Final Result Performing Organization Address [facility] Co de Phone Number [facility] [place] [address] * eGFR (02/25/2025 9:31 PM CDT) Pathologist [facility] eGFR >90 >=60 mL/min/1. 73 m2 Comment: [...] ORDERABLES Fin al Result Performing Organization Address City/[facility]/ZIP Co de Phone Number [facility] [place] [address] * (ABNORMAL) CBC without differential (02/25/2025 9:31 PM CDT) WBC 14.05(H) 3.80 - 9.90 K/cumm Hgb 13.5 11.9 - 15.5 g/dL [facility] Hct 41.7 35.6 - 45.5 % [facility] Plt 286 150 - 400 K/cumm [facility] MPV 9.5 9.1 - 12.3 fL [facility] RBC 4.50 3.90 - 5.20 M/cumm [facility] MCV 92.7 81.3 - 96.4 fL [facility] MCH 30.0 27.1 - 33.3 pg [facility] MCHC 32.4 32.3 - 35.7 g/dL [facility] RDW CV 14.4 11.1 - 14.9 % [facility] RDW SD 48.6(H) 35.7 - 48.1 fL [facility] NRBC abs 0.00 0.00 - 0.01 K/cumm [facility] Blood 02/25/2025 9:31 PM CDT 02/25/2025 10:13 PM CDT us Lexis Renteria MD LAB BLOOD ORDERABLES Fin al Result Performing Organization Address [facility]/ZIP Co de Phone Number [facility] Department [place] [address] * Basic metabolic panel (02/25/2025 9:31 PM CDT) Sodium 139 135 - 145 mmol/L Potassium, pl 4.3 3.3 - 4.9 mmol/L [facility] Chloride 103 97 - 110 mmol/L [facility] CO2 26 22 - 32 mmol/L [facility] Anion gap 10 2 - 15 mmol/L [facility] BUN 12 6 - 25 mg/dL [facility] Creatinine 0.69 0.60 - 1.10 mg/dL [facility] Glucose 133 70 - 199 mg/dL [facility] Comment: Interpretive Data Fasting glucose >/= [...] Calcium 9.1 8.5 - 10.3 mg/dL [facility] Blood 02/25/2025 9:31 PM CDT 02/25/2025 10:12 PM CDT Lexis Renteria MD LAB BLOOD ORDERABLES Fin al Result [facility] Department [place] [address] * (ABNORMAL) Hemoglobin A1c (02/24/2025 9:50 AM CDT) Hgb A1C 6.3(H) 4.0 - 5.6 % Estimated Average Glucose 134 mg/dL [facility] Comment: The ADA recommends reporting an [...] ORDERABLES Fin al Result Performing Organization Address [facility] Co de Phone Number [facility] [place] [address] * eGFR (02/21/2025 8:58 AM CDT) eGFR [...] ORDERABLES Fin al Result Performing Organization Address City/[facility]/ZIP Co de Phone Number [facility] [place] [address] * (ABNORMAL) CBC without differential (02/21/2025 8:58 AM CDT) WBC 17.70(H) 3.80 - 9.90 K/cumm Hgb 13.5 11.9 - 15.5 g/dL [facility] Hct 40.8 35.6 - 45.5 % [facility] Plt 267 150 - 400 K/cumm [facility] MPV 9.4 9.1 - 12.3 fL [facility] RBC 4.49 3.90 - 5.20 M/cumm [facility] MCV 90.9 81.3 - 96.4 fL [facility] MCH 30.1 27.1 - 33.3 pg [facility] MCHC 33.1 32.3 - 35.7 g/dL [facility] RDW CV 14.6 11.1 - 14.9 % [facility] RDW SD 48.9(H) 35.7 - 48.1 fL [facility] NRBC abs 0.00 0.00 - 0.01 K/cumm [facility] Blood 02/21/2025 8:58 AM CDT 02/21/2025 9:11 AM CDT us Lexis Renteria MD LAB BLOOD ORDERABLES Fin al Result [facility] Department [place] [address] * (ABNORMAL) Basic metabolic panel (02/21/2025 8:58 AM CDT) Sodium 138 135 - 145 mmol/L Potassium, pl 3.5 3.3 - 4.9 mmol/L [facility] Chloride 102 97 - 110 mmol/L [facility] CO2 26 22 - 32 mmol/L [facility] Anion gap 10 2 - 15 mmol/L [facility] BUN 9 6 - 25 mg/dL [facility] Creatinine 0.70 0.60 - 1.10 mg/dL [facility] Glucose 240(H) 70 - 199 mg/dL [facility] Comment: Interpretive Data Fasting glucose >/= [...] LAB BLOOD ORDERABLES Fin al Result [facility] [place] [address] * XR Chest 1 View (02/20/2025 1:55 [...] signed by: Jairo Claire M.D. Nathalie Rodriguez PLATEN DRIER OPERATOR IMG XR PROCEDURES Final Resu lt * Respiratory pathogen panel Nasopharyngeal (02/20/2025 10:39 AM CDT) Pathologist [facility] Influenza A RNA Not Detected Not Detected Influenza B RNA Not Detected Not Detected [facility] RSV RNA Not Detected Not Detected [facility] COVID-19 RNA Not Detected Not Detected [facility] Coronavirus 229E RNA Not Detected Not Detected [facility] Coronavirus HKU1 RNA Not Detected Not Detected [facility] Coronavirus NL63 RNA Not Detected Not Detected [facility] Coronavirus OC43 RNA Not Detected Not Detected [facility] Adenovirus DNA Not Detected Not Detected [facility] Metapneumovirus RNA Not Detected Not Detected [facility] Rhinovirus/Enterov irus RNA Not Detected Not Detected [facility] Parainfluenza 1 RNA Not Detected Not Detected [facility] Parainfluenza 2 RNA Not Detected Not Detected [facility] Parainfluenza 3 RNA Not Detected Not Detected [facility] Parainfluenza 4 RNA Not Detected Not Detected [facility] B. pertussis DNA Not Detected Not Detected [facility] B. parapertussis DNA Not Detected Not Detected [facility] C. pneumoniae DNA Not Detected Not Detected [facility] M. pneumoniae DNA Not Detected Not Detected [facility] Nasopharyngeal 02/20/2025 10 :39 AM CDT 02/20/2025 10:52 AM CDT Narrative [facility] - 02/20/2025 11:59 AM CDT Is the Patient experiencing symptoms consistent with COVID?->No Surveillance testing for transplant patient?->No Interpretive Data The Specpage FilmArray Respiratory Panel (RP2.1) assay is a [...] assay has FDA clearance for testing of PLATEN DRIER OPERATOR swabs. The performance of additional specimen types has been assessed by the performing laboratory. The performance characteristics of this assay have been determined by [facility] Molecular Infectious Disease Laboratory. Current interpretive data was last revised on 22. Nathalie Rodriguez PLATEN DRIER OPERATOR LAB MICROBIOLOGY - GENERAL O RDERABLES Final Result [facility] [place] [address] * VA AN EMERGENT ENDOTRACHEAL AIRWAY, VA AN PROCEDURE PLACEHOLDER (02/19/2025 9:34 PM CDT) Narrative Tory Lazaro CRNA - 02/19/2025 9:34 PM CDT Tory Lazaro CRNA 02/19/2025 9:34 PM Airway Patient location: OR Urgency: emergent Indications for airway management: anesthesia Difficult airway: no Staff: Placed by: SUPERVISOR LOOPING: Tory Lazaro CRNA Emergent airway documentation: Patient [...] hCG, urine (02/19/2025 9:10 PM CDT) Pathologist [facility] HCG, ur, POC Negative Negative Lot Number [id number] QC Backgroud Clear Acceptable QC Control Line Acceptable Urine 02/19/2025 9:10 PM CDT Lauren Haro MD POINT OF CARE TEST MURPHY BOYCE Final Result * (ABNORMAL) Urinalysis reflex to microscopic and culture Urine, clean voided (02/19/2025 9:09 PM CDT) Color, ur Straw Yellow Clarity, ur Clear Clear [facility] Specific gravity, ur >1.042(H) 1.003 - 1.030 [facility] pH, urine 6.5 [facility] Comment: Interpretive Data U rine pH is affected by diet, medications, systemic acid-base disturbances, and renal tubular function. pH may affect urinary stone formation. For example, urine pH below 6.0 may help reduce the tendency for calcium phosphate stones and pH greater than 6.0 may reduce the tendency for uric acid stone formation. Source: [facility] Current Interpretive Data was last revised on 2017 Protein, ur ql 1+(A) Negative [facility] Glucose, ur ql Negative Negative [facility] Ketones, ur Trace Negative [facility] Bilirubin, ur Negative Negative [facility] Blood, ur 2+(A) Negative [facility] Urobilinogen, ur <2.0 <2.0 mg/dL [facility] Nitrite, ur Negative Negative [facility] Leukocyte esterase, ur Trace(A) Negative [facility] UA reflex comment Reflex to microscopic UA will be performed. [facility] Urine, clean voided 02/19/2025 9:09 PM CDT 02/19/2025 9:24 PM CDT Lauren Haro MD LAB MICROBIOLOGY - [facility] ORDERABLES Final Result [facility] Department [place] [address] * (ABNORMAL) Urinalysis, microscopic only (02/19/2025 9:09 PM CDT) WBC, ur 6-10(A) 0 - 5 /HPF RBC, ur 6-10(A) 0 - 2 /HPF [facility] Epithelial cells, squamous, ur 6-10(A) 0 - 5 /HPF [facility] Comment:Suggestive of contam ination. Consider recollection by clean catch. Mucous, ur Present(A) [facility] Culture Reflex Comment Reflex conditions for urine culture (WBC >10) not met. [facility] Urine, clean voided 02/19/2025 9:09 PM CDT 02/19/2025 9:24 PM CDT us Lauren Haro MD LAB URINE ORDERABLES Fi nal Result [facility] Department [place] [address] * Check Sample (02/19/2025 9:01 PM CDT) ABO Rh A Positive [facility] HCLL OTHER 02/19/2025 9:01 PM CDT 02/19/2025 9:10 PM CDT Magalie Archibald MD LAB BLOOD ORDERABLES Final Result Performing Organization Address [facility] Co de Phone Number [facility] [place] [address] [facility] * CT Body [...] images may or may not represent the [place] source data set and thus may contain [...] IMAGING STUDY STUDY INITIALLY PERFORMED: 02/19/2025 at [facility]. TYPE OF STUDY: Multiple CT images of [...] IMAGING STUDY STUDY INITIALLY PERFORMED: 02/19/2025 at [facility]. TYPE OF STUDY: Multiple CT images of [...] images may or may not represent the [place] source data set and thus may contain changes that may lower the accuracy of this second-opinion interpretation. Dictated by: Mo Oreilly MD The radiology attending physician has personally reviewed this study, and had reviewed and/or edited this written report and agrees with it. Electronically signed by: Anastasia Braswell M.D. Lauren Haro MD IMG CT PROCEDURES Final Result * [facility] CRITICAL CARE ILL/INJURED PATIENT INIT 30-74 MIN [...] LAB BLOOD ORDERABLES Fi nal Result [facility] Department [place] [address] * (ABNORMAL) Differential, auto (02/19/2025 8:20 PM CDT) Neutrophil abs 27.04(H) 1.50 - 6.50 K/cumm Imm gran abs 0.24(H) 0.00 - 0.10 K/cumm [facility] Lymphocyte abs 2.60 0.80 - 3.30 K/cumm [facility] Monocyte abs 1.73(H) 0.20 - 0.80 K/cumm [facility] Eosinophil abs 0.03 0.00 - 0.50 K/cumm [facility] Basophil abs 0.11(H) 0.00 - 0.10 K/cumm [facility] Neutrophil pct 85.2 % [facility] Comment: Interpretive Data Percent cell count reference ranges are not reported, since discordance with absolute values may lead to misinterpretation of CBC data. Current Interpretive Data was last revised on 2018. Imm gran pct 0.8 % [facility] Comment: Interpretive Data Percent cell count reference ranges are not reported, since discordance with absolute values may lead to misinterpretation of CBC data. Current Interpretive Data was last revised on 2018. Lymphocyte pct 8.2 % [facility] Comment: Interpretive Data Percent cell count reference ranges are not reported, since discordance with absolute values may lead to misinterpretation of CBC data. Current Interpretive Data was last revised on 2018. Monocyte pct 5.4 % [facility] Comment: Interpretive Data Percent cell count reference ranges are not reported, since discordance with absolute values may lead to misinterpretation of CBC data. Current Interpretive Data was last revised on 2018. Eosinophil pct 0.1 % [facility] Comment: Interpretive Data Percent cell count reference ranges are not reported, since discordance with absolute values may lead to misinterpretation of CBC data. Current Interpretive Data was last revised on 2018. Basophil pct 0.3 % [facility] Comment: Interpretive Data Percent cell count reference ranges are not reported, since discordance with absolute values may lead to misinterpretation of CBC data. Current Interpretive Data was last revised on 2018. Blood 02/19/2025 8:20 PM CDT 02/19/2025 8:36 PM CDT Lauren Haro MD LAB BLOOD ORDERABLES Fi nal Result Performing Organization Address City/[facility] Co de Phone Number [facility] Department [place] [address] * (ABNORMAL) CBC with auto differential (02/19/2025 8:20 PM CDT) WBC 31.75(H) 3.80 - 9.90 K/cumm Hgb 15.1 11.9 - 15.5 g/dL [facility] Hct 44.4 35.6 - 45.5 % [facility] Plt 339 150 - 400 K/cumm [facility] MPV 9.3 9.1 - 12.3 fL [facility] RBC 4.92 3.90 - 5.20 M/cumm [facility] MCV 90.2 81.3 - 96.4 fL [facility] MCH 30.7 27.1 - 33.3 pg [facility] MCHC 34.0 32.3 - 35.7 g/dL [facility] RDW CV 14.5 11.1 - 14.9 % [facility] RDW SD 47.8 35.7 - 48.1 fL [facility] NRBC abs 0.00 0.00 - 0.01 K/cumm [facility] Blood 02/19/2025 8:20 PM CDT 02/19/2025 8:36 PM CDT Lauren Haro MD LAB BLOOD ORDERABLES Fi nal Result Performing Organization Address City/State/[facility] de Phone Number [facility] [place] [address] * aPTT (02/19/2025 8:20 PM CDT) aPTT [...] BLOOD ORDERABLES nal Result Performing Organization Address [facility] [place] [address] * Protime-INR (02/19/2025 8:20 PM CDT) Pathologist [facility] PT 11.8 9.7 - 13.0 sec INR 1.09 0.90 - 1.20 [facility] Comment: Interpretive data Oral anticoagulant therapeutic ranges: Venous thromboembolism prophylaxis or treatment: 2.0-3.0 CARDIOLOGY Standard range: 2.0-3.0 High-intensity range: 2.5-3.5 Refer to indication-specific guidelines for appropriate target ranges for prosthetic heart valve replacement. Current interpretive data was last revised on 2019. Blood 02/19/2025 8:20 PM CDT 02/19/2025 8:39 PM CDT Lauren Haro MD LAB BLOOD ORDERABLES Fi nal Result Performing Organization Address [facility] de Phone Number [facility] [place] [address] * Type and screen (02/19/2025 8:20 PM CDT) Ashely, indirect Negative ABO Rh A Positive [facility] Blood 02/19/2025 8:20 PM CDT 02/19/2025 8:33 PM CDT Narrative [facility] - 02/19/2025 9:26 PM CDT Has the patient had Daratumumab or Isatuximab in the past 6 months?->Unknown Lauren Haro MD LAB BLOOD BANK TEST ORD ERABLES Final Result [facility] [place] [address] * Creatine kinase (CK), total (02/19/2025 8:20 PM CDT) [facility] CK 61 30 - 200 Units/L Comment:Hemolyzed; result ma y be falsely elevated Blood 02/19/2025 8:20 PM CDT 02/19/2025 8:35 PM CDT Magalie Archibald MD LAB BLOOD ORDERABLES Final Result Performing Organization Address [facility] Co de Phone Number [facility] Department [place] [address] * (ABNORMAL) Comprehensive metabolic panel (02/19/2025 8:20 PM CDT) [facility] Sodium 138 135 - 145 mmol/L Potassium, pl 4.4 3.3 - 4.9 mmol/L [facility] Comment:Hemolyzed; Potassium value may be falsely elevated by as much as 0.6-1.0 mmol/L. Suggest redraw and reanalysis. Chloride 102 97 - 110 mmol/L [facility] CO2 22 22 - 32 mmol/L [facility] Anion gap 14 2 - 15 mmol/L [facility] BUN 9 6 - 25 mg/dL [facility] Creatinine 0.69 0.60 - 1.10 mg/dL [facility] Glucose 137 70 - 199 mg/dL [facility] Comment: Interpretive Data Fasting glucose >/= [...] Calcium 9.1 8.5 - 10.3 mg/dL [facility] Bilirubin, total 0.4 0.1 - 1.2 mg/dL [facility] Protein, pl 7.9 6.5 - 8.5 g/dL [facility] Albumin 4.2 3.5 - 5.0 g/dL [facility] Alk phos 85 40 - 130 Units/L [facility] ALT 32 7 - 45 Units/L [facility] AST 47(H) 10 - 45 Units/L [facility] Comment:Hemolyzed; result ma y be falsely elevated Blood 02/19/2025 8:20 PM CDT 02/19/2025 8:35 PM CDT Lauren Haro MD LAB BLOOD ORDERABLES Fi nal Result [facility] [place] [address] from Last 3 Months Insurance [employer] ACCESS CHOICE [employer] ACCESS CHOICE Advance Directives For more information, please contact: [phone] * Full Code (Latest Code Status on File) Date Activated Date Inactivated Comments 02/20/2025 12:42 AM 02/27/2025 1:57 PM Care Teams Overhead Cleaner Relationship Specialty Start Date End Date Cody Roper DO [address] [place] [address] PCP - General Family Medicine 07/02/19 David Bell MD [address] [place] [address] Medical Oncologist/Lead Manufacturing Technician Hematology and Oncology 06/11/20
--- OUTSIDE RECORDS SUMMARY | 2025-04-10 18:37 | XMS_ITS | Clinical Summary ---
Author Organization [facility] Address [address] [place] [address] Care Team Providers Care Internet Media Planner Name Role Phone Roper, Dino SalgadoEmil Primary Care Provider [phone] Source Comments [facility],non-owned Affiliates and Associated Physician Practices is amultiple site organization consisting of ambulatory clinics and hospital sitesin [place]. This disclosure is being madepursuant to the Care Everywhere program and may not contain all information available regarding this patient. Last updated 18.[facility] Allergies No known active allergies Medications * [...] on file Legal Sex Female 4:17 AM DIAMOND GRINDER Gender Identity Not on file Sexual Orientation [...] topic Insurance [place] BC/BLUE BLUE CROSS BLUE [facility] [employer]THEM BC/BLUE BLUE CROSS BLUE [employer] [place] * Guarantor: LISSA OLIVARES Account Type Relation to Patient Date of Phone Billing Address Personal/Family [address] [place] [address] * Guarantor: LISSA OLIVARES Account Type Relation to Patient Date of Phone Billing Address Personal/Family [address] [place] [address] * Guarantor: LISSA OLIVARES Account Type Relation to Patient Date of Phone Billing Address Personal/Family [address] [place] [address] Care Teams Internet Media Planner Relationship Specialty Start Date End Date Dino Roper DO [address] [place] [id number] PCP - General Family Medicine 08/30/20
--- OUTSIDE RECORDS SUMMARY | 2025-04-10 18:37 | XMS_ITS | Continuity of Care Document ---
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 Name Role Phone Cody Roper DO Unavailable [...] QN (URINE) CREATININE, (U-R) ROUTINE VENIPUNCTURE OFFICE SWYKW-MQU-ZKYCTUAH BODY MASS INDEX DOCD SYST BP GE 130 - 139MM HG DIAST BP 80-89 MM HG GENERAL HEALTH PANEL LIPID PANEL ROUTINE VENIPUNCTURE OFFICE SFCMO-WJR-IVOVQNVE BODY MASS INDEX DOCD SYST BP LT 130 MM HG DIAST BP < 80 MM HG VITAMIN D, 25-HYDROXY OFFICE AYXQJ-SML-LZRGVWKY BODY MASS INDEX DOCD SYST BP LT 130 MM HG DIAST BP 80-89 MM HG ANTINUCLEAR ANTIBODIES (JAYCE) BASIC METABOLIC PANEL(BMP) C-REACTIVE PROTEIN (CRP) HEMATOCRIT (HCT) HEMOGLOBIN (HGB) HEMOGLOBIN A1C HGA1C, GLYCO RHEUMATOID FACTOR: QN RBC SED RATE, AUTOMATED URIC ACID, (S) URINALYSIS, DIPSTICK (UA) - Office Lab D ROUTINE VENIPUNCTURE OFFICE IHGZP-VRX-ROLJMIVH BODY MASS INDEX DOCD SYST BP LT 130 MM HG DIAST BP 80-89 MM HG BASIC METABOLIC PANEL(BMP) HEMATOCRIT (HCT) HEMOGLOBIN (HGB) HEMOGLOBIN A1C HGA1C, GLYCO LIPID PANEL VITAMIN D, 25-HYDROXY ROUTINE VENIPUNCTURE Pt inelig neg scrn depres OFFICE PFISH-JCS-AIPFBLMH BODY MASS INDEX DOCD SYST BP GE 130 - 139MM HG DIAST BP 80-89 MM HG EKG (ELECTROCARDIOGRAM) OFFICE NQSAU-UFP-NROOFGVZ BODY MASS INDEX DOCD SYST BP GE [...] - Office Lab J ROUTINE VENIPUNCTURE OFFICE FDFPX-JJM-MEYKATGD BODY MASS INDEX DOCD SYST BP GE 130 - 139MM HG DIAST BP 80-89 MM HG OFFICE BJDWR-YVG-GDJQYMEB BODY MASS INDEX DOCD SYST BP LT 130 MM HG DIAST BP < 80 MM HG DSCHRG MED/CURRENT MED MERGE OFFICE SJHDT-KKX-XUBMFBPB SYST BP LT 130 MM HG DIAST BP 80-89 MM HG CBC, INC PLATELETS AND DIFFERENTIAL COMPREHEN METABOLIC PANEL CMP HEMOGLOBIN A1C HGA1C, GLYCO LIPID PANEL VITAMIN D, 25-HYDROXY URINALYSIS, DIPSTICK (UA) - Office Lab S ROUTINE VENIPUNCTURE OFFICE FRIVG-ZAK-CTVLMDRK BODY MASS INDEX DOCD SYST BP LT 130 MM HG DIAST BP 80-89 MM HG URINALYSIS W MICROSCOPIC (UA) URINALYSIS, DIPSTICK (UA) - Office Lab S Brief Emotional/Behavioral A ssessment, With Scoring/Doct, Per Stndrd Instrument Pt inelig neg scrn depres BASIC METABOLIC PANEL(BMP) HEMATOCRIT (HCT) HEMOGLOBIN (HGB) ROUTINE VENIPUNCTURE HEMOGLOBIN A1C HGA1C, GLYCO MICROALBUMIN, QN (URINE) CREATININE, (U-R) OFFICE EYQPC-FJL-FIRJMBLW BODY MASS INDEX DOCD SYST BP GE 130 - 139MM HG DIAST BP 80-89 MM HG CBC, INC PLATELETS AND DIFFERENTIAL COMPREHEN METABOLIC PANEL CMP 2 HEMOGLOBIN A1C HGA1C, GLYCO LIPID PANEL VITAMIN D, 25-HYDROXY MICROALBUMIN, SEMIQN(RGT STRIP) - OL Jan ROUTINE VENIPUNCTURE OFFICE YIQER-RKZ-UTHQUBWL BODY MASS INDEX DOCD SYST BP LT 130 MM HG DIAST BP 80-89 MM HG EKG (ELECTROCARDIOGRAM) OFFICE VXJFT-YBV-MIRRBSBM BODY MASS INDEX DOCD SYST BP LT 130 MM HG DIAST BP 80-89 MM HG OFFICE VAGNV-KJA-LYOWSFPB BODY MASS INDEX DOCD SYST BP LT 130 MM HG DIAST BP 80-89 MM HG KENALOG 10 MG INJ; MULTIPLE TRIGGER PTS, 1 OR 2 MUSCLE GROUPS OFFICE MFUPO-XDD-WEVHYCTM BODY MASS INDEX DOCD SYST BP LT 130 MM HG DIAST BP 80-89 MM HG OFFICE LHGAG-CFL-XWPCSRYR BODY MASS INDEX DOCD SYST BP GE 130 - 139MM HG DIAST BP 80-89 MM HG CBC, INC PLATELETS AND DIFFERENTIAL COMPREHEN METABOLIC PANEL CMP 1 HEMOGLOBIN A1C HGA1C, GLYCO LIPID PANEL ROUTINE VENIPUNCTURE Pt inelig neg scrn depres OFFICE RFAIJ-BLN-QUCTVNQL BODY MASS INDEX DOCD SYST BP LT 130 MM HG DIAST BP 80-89 MM HG CBC, INC PLATELETS AND DIFFERENTIAL COMPREHEN METABOLIC PANEL CMP 1 HEMOGLOBIN A1C HGA1C, GLYCO ROUTINE VENIPUNCTURE OFFICE BAWWR-VGL-JHGJBLSX BODY MASS INDEX DOCD SYST BP >= 140 MM HG6 IT DIAST BP 80-89 MM HG CBC, INC PLATELETS AND DIFFERENTIAL COMPREHEN METABOLIC PANEL CMP 1 HEMOGLOBIN A1C HGA1C, GLYCO ROUTINE VENIPUNCTURE OFFICE XEQRE-JOK-HTDXMQXG BODY MASS INDEX DOCD SYST BP LT 130 MM HG DIAST BP < 80 MM HG DEAMIDATED GLADIN PEPTIDE IGA 0 DEAMIDATED GLADIN PEPTIDE IGG 0 TISSUE TRANSGLUTIMASE IGA TISSUE TRANSGLUTIMASE IGG ROUTINE VENIPUNCTURE BODY MASS INDEX DOCD SYST BP GE 130 - 139MM HG DIAST BP 80-89 MM HG OFFICE YSAHQ-LCK-XCGJEDKL OFFICE YFUQW-QCB-FESFQEKC BODY MASS INDEX DOCD SYST BP LT 130 MM HG DIAST BP < 80 MM HG CBC, INC PLATELETS AND DIFFERENTIAL COMPREHEN METABOLIC PANEL CMP 0 HEMOGLOBIN A1C HGA1C, GLYCO LIPID PANEL ROUTINE VENIPUNCTURE Brief Emotional/Behavioral A ssessment, With Scoring/Doct, Per Stndrd Instrument Pt inelig neg scrn depres Kept Appointment No Charge Encounter Jul OFFICE KBUUH-GYF-IWXDTMKN BODY MASS INDEX DOCD SYST BP LT [...] SCREENING FOR PAP (OBTAINING SPECIMEN) M OFFICE VJQZT-GUE-KAIZIEFQ BODY MASS INDEX DOCD SYST BP LT 130 MM HG DIAST BP < 80 MM HG BP OFFICE/OUTPATIENT VISIT EST OFFICE XZRJJ-RUA-XOOVSJOM BODY MASS INDEX DOCD SYST BP LT 130 MM HG DIAST BP 80-89 MM HG CBC, INC PLATELETS AND DIFFERENTIAL COMPREHEN METABOLIC PANEL [facility] 9 HEMOGLOBIN A1C HGA1C, GLYCO LIPID PANEL ROUTINE VENIPUNCTURE THERAPEUTIC EXERCISES ULTRASOUND THERAPY THERAPEUTIC EXERCISES ULTRASOUND THERAPY Brief Emotional/Behavioral A ssessment, With Scoring/Doct, Per Stndrd Instrument Clin depression screen doc OFFICE HGBIH-QUF-KZTEYFGL BODY MASS INDEX DOCD SYST BP LT 130 MM HG DIAST BP < 80 MM HG THERAPEUTIC EXERCISES ULTRASOUND THERAPY ELECTRICAL STIMULATION THERAPEUTIC EXERCISES ULTRASOUND THERAPY ULTRASOUND THERAPY THERAPEUTIC EXERCISES THERAPEUTIC EXERCISES ULTRASOUND THERAPY OT EVAL (MOD COMPLEXITY) CBC, INC PLATELETS AND DIFFERENTIAL COMPREHEN METABOLIC PANEL [facility] 9 HEMOGLOBIN A1C HGA1C, GLYCO ROUTINE VENIPUNCTURE OFFICE PQJVU-VLT-CLKJRFJN BODY MASS INDEX DOCD SYST BP GE [...] Diagnoses Date Provider Providers Copied on Encounter [employer], [address], [place], [place], [address] , tel: [phone] Roper No Information 5 Judson Ross. [address] [place] [address], [id number], . tel:[phone] [employer], [address], [place], [place], [address] , tel: [phone] Roper Kidney stone 4 Judson Ross. [address] [place] [address], [id number], . tel:[phone] [employer], [address], [place], [place], [address] , tel: [phone] Roper No Information 4 Judson Ross. [address] [place] [address], [id number], . tel:[phone] [employer], [address], [place], [place], [address] , tel: [phone] Roper No Information 4 Judson Ross. [address] [place] [address], [id number], . tel:[phone] OFFICE QAOXZ-JUS-OH [facility], [address], [place], [place], [address] , tel: [phone] Roper mmp (chief complaint) Encounter for screening [...] D deficiencyHx of cholecystectomy 4 Judson Ross. [address] [place] [address], [id number], . tel:[phone] Referring Provider: Cody Stein, [address] [place] [address], [address] . tel:[phone] [facility], [address], [place], [place], [address] , tel: [phone] [facility] No Information 4 Judson Ross. [address] [place], [place], [address], . tel:[phone] [facility], [address], [place], [place], [address] , tel: [phone] Judson No Information 4 Judson Ross. [address] [place] [address], [place], [place], [address], . tel:[phone] [facility], [address], [place], [place], [address] , [place] tel: [phone] Judson No Information 4 Judson Ross. [address] [place] [address], [id number], . tel:[phone] OFFICE ZUAPD-KGN-UZ [facility], [address], [place], [place], [address] , tel: [phone] Judson mmp (chief complaint) Mixed hyperlipidemiaMo derate [...] ea corporisVitamin D deficiency 4 Judson Ross. [address] [place] [address], [id number], . tel:[phone] Referring Provider: Cody Stein, [address] [place] [address], [address] . tel:[phone] OFFICE AGEHK-NFH-QT [facility], [address], [place], [place], [address] , [place] tel: [phone] Judson mmp (chief complaint) Gastroesophageal reflux disease [...] typeArthralgia of multiple joints 3 Judson Ross. [address] [place] [address], [place], [place], [address], . tel:[phone] Referring Provider: Cody Stein, [address] [place] [address], [place], [address] . tel:[phone] OFFICE PFGSZ-OPB-JB PANDED [facility], [address], [place], [place], [address] , [place] tel: [phone] [facility] IBS D (chief complaint) Irritable bowel syndrome with diarrhea 3 Meena Velozyazan. [address] [facility] [address], [place], [place], [address], [place]. tel:[phone] Referring Provider: Emil Roper, [address] [facility], [address] . tel:[phone] [facility], [address], [place], [place], [address] , [place] tel: [phone] Judson Other spondylosis with radiculopathy, cervical regionOther spondylosis with radiculopathy, lumbosacral regionSpondylosi s, unspecifiedUnila teral primary osteoarthritis, left knee Sep- 3 Judson Ross. [address], [place], [address], [place]. tel: [phone] [facility], [address], [place], [place], [address] , [place] tel: [phone] Judson No Information 3 Judson Ross. [address] [facility], [place], [place], [address], [place]. tel:[phone] OFFICE BLWHH-SOI-DQ TAILED [facility], [address], [place], [place], [address] , [place] tel: [phone] Judson mmp (chief complaint) Essential (primary) hypertensionMixe [...] neoplasm of breast 3 Judson Ross. [address] [facility], [place], [place], [address], . tel:[phone] Referring Provider: Cody Stein, [address] [place] [address], [place], [address] . tel:[phone] OFFICE [facility], [address], [place], [place], [address] , [place] tel:[phone] [facility] (chief complaint) Essential (primary) hypertensionMeta bolic [...] evaluationAbnorm al EKG 3 Judson Ross. [address] [facility], [place], [place], [address], . tel:[phone] Referring Provider: Cody Stein, [address] [place] [address], [place], [address] . tel:[phone] OFFICE [facility]FR[facility], [address], [place], [place], [address] , [place] tel:[phone] Roper [facility] (chief complaint) Lumbosacral radiculopathy due to [...] with diarrheaCervical radiculopathy 3 Judson Ross. [address], [place], [address], [place]. tel:[phone] Referring Provider: Cody Stein, [address] [facility], [place], [address] . tel:[phone] OFFICE EBVTT-OGN-QS [employer], [address], [place], [place], [address] , [place] tel:[phone] [facility] Follow up (chief complaint) Irritable bowel syndrome with diarrheaRectal itching 2 Jerrell Gillette. [address] [place], [place], [address], [place]. tel:[phone] Referring Provider: Cody Stein, [address] [facility], [place], [address] . tel:[phone] OFFICE QIFLX-EDJ-KO [facility] [employer], [address], [place], [place], [address] , [place] [phone] Judson madsen (chief complaint) Cervical radiculopathyNec k pain, chronicOther chronic pain 2 Jim Camp. [address] [place], [place], [address], [place]. tel:[phone] Referring Provider: Cody Stein, [address] [place], [address] . tel:[phone] OFFICE TAEXW-LMF-LL [facility] [employer], [address], [place], [place], [address] , [place] tel:[phone] Judson madsen (chief complaint) Essential (primary) hypertensionMixe [...] D deficiency Sep- 2 Judson Ross. [address], [place], [address], . tel:[phone] Referring Provider: Cody Stein, [address] [place] [address], [address] . tel:[phone] [facility], [address], [place], [place], [address] , [phone] Judson UTI symptoms/c oncerns (chief complaint) UTI symptoms Jul- 2 Judson Ross. [address] [place] [address], [id number], . tel:[phone] Referring Provider: Cody Stein, [address] [place] [address], [address] . tel:[phone] OFFICE ALASC-ZUW-KR [facility], [address], [place], [place], [address] , [phone] Judson mmp (chief complaint) Essential (primary) hypertensionMeta [...] t smokerInsomnia, unspecified type 2 Judson Ross. [address] [place] [address], [place], [place], [address], . tel:[phone] Referring Provider: Cody Stein, [address] [place] [address], [place], [address] . tel:[phone] OFFICE ZZCHP-TJH-RN [facility], [address], [place], [place], [address] , [place] tel:[phone] Judson mmp (chief complaint) Essential (primary) hypertensionMixe [...] paresthetica of left side 2 Judson Ross. [address] [place] [address], [place], [place], [address], [place]. tel:[phone] Referring Provider: Cody Stein, [address] [place] [address] B, [place], [address] . tel:[phone] OFFICE LFARQ-TSC-UW [facility], [address], [place], [place], [address] , [place] tel:[phone] Judson Rash (chief complaint) IntertrigoHyperp igmentation 2 Erasmo Cheney. [address] [place] [address], [address], [place], [place], [address], [place]. tel:[phone] Referring Provider: Cody Stein, [address] [place] [address] B, [place], [address] . tel:[phone] OFFICE TWDTL-TTN-KJ [facility], [address], [place], [place], [address] , tel:[phone] [facility] IBS (chief complaint) Irritable bowel syndrome with diarrhea 1 Jerrell Gillette. [address] [place], [place], [address], [place]. tel:[phone] Referring Provider: Cody Stein, [address] [place] [address] B, [place], [address] . tel:[phone] OFFICE RKKLB-HAT-QK [facility], [address], [place], [place], [address] , [place] tel:[phone] Judson madsen (chief complaint) Encounter for screening [...] smokerObesity (BMI 30.0-34.9)Opioid use 1 Judson Ross. [address] [place] [address], [id number], [place]. tel:[phone] Referring Provider: Cody Stein, [address] [place] [address], [place], [address] . tel:[phone] OFFICE NFCGF-BRV-LG [facility], [address], [place], [place], [address] , [place] tel:[phone] Judson [facility] (chief complaint) Essential (primary) hypertensionMixe d [...] rhinitis due to pollenAnxiety 1 Judson Ross. [address] [place] [address], [address], . [phone] Referring Provider: Cody Stein, [address] [place] [address], [address] . [phone] [facility], [address], [place], [place], [address] , tel: [phone] Judson No Information 1 Judson Ross. [address], [place], [address], . tel:[phone] [facility], [address], [place], [place], [address] , tel:[phone] [facility] Urinary incontinence, unspecified type 1 Judson Ross. [address], [place], [address], . tel:[phone] OFFICE ZSWHQ-ITR-RV [facility], [address], [place], [place], [address] , tel: [phone] Judson MMP (chief complaint) Essential (primary) hypertensionMixe [...] of left foot 1 Judson Ross. [address] [place], [place], [address], [place]. tel:[phone] Referring Provider: Cody Stein, [address] [place] [address], [address] . tel:[phone] OFFICE TGMXX-PEC-TO [facility], [address], [place], [place], [address] , [place] tel: [phone] Judson mmp (chief complaint) Essential (primary) hypertensionMixe [...] of right wrist 1 Judson Ross. [address] [place], [place], [address], [place]. tel:[phone] Referring Provider: Cody Stein, [address] [place] [address], [place], [address] . tel:[phone] OFFICE KEJTR-UUF-QJ [facility], [address], [place], [place], [address] , [place] tel: [phone] [facility] Diarrhea (chief complaint) Irritable bowel syndrome with diarrhea 0 Jerrell Gillette. [address] [place], [place], [address], [place]. tel:[phone] Referring Provider: Cody Stein, [address] [place] [address], [place], [address] . tel:[phone] OFFICE AXTYT-QVZ-DG [facility], [address], [place], [place], [address] , [place] tel: [phone] [facility] Diarrhea (chief complaint) Irritable bowel syndrome with diarrhea 0 Jerrell Leta. [address] [place], [place], [address], [place]. tel:[phone] Referring Provider: Cody Stein, [address] [place] [address] [place], [address] . tel:[phone] OFFICE LBFVY-CFC-JB [facility], [address], [place], [place], [address] , [place] tel: [phone] Judson mmp (chief complaint) Unilateral primary osteoarthritis, [...] (BMI 30.0-34.9)Gangli on cyst 0 Judson Ross. [address] [place] [address], [address], [place]. tel:[phone] Referring Provider: Cody Stein, [address] [place], [address] . tel:[phone] [facility], [address], [place], [place], [address] , [place] tel:[phone] Judson weight check (chief complaint) No Information 0 Judson Ross. [address], [place], [address], . tel:[phone] Referring Provider: Cody Stein, [address] [place] [address] [place], [address] . tel:[phone] OFFICE OWOSM-MHH-WI TAILED [facility], [address], [place], [place], [address] , tel:[phone] Judson mmp (chief complaint) Unilateral primary osteoarthritis, [...] ovary syndromeObesity (BMI 30.0-34.9) 0 Judson Ross. [address] [place] [address] [place], [address], [place]. tel:[phone] Referring Provider: Cody Stein, [address] [place] [address] B, [place], [address] . tel:[phone] PREVENTATIVE -EST: 40-64 [facility], [address], [place], [place], [address] , tel:[phone] Judson mmp (chief complaint) Unilateral primary osteoarthritis, [...] lossPolycystic ovary syndromePhysical exam 0 Judson Ross. [address] [place] [address] B, [place], [place], [address], [place]. tel:[phone] Referring Provider: Cody Stein, [address] [facility], [place], [address] . tel:[phone] OFFICE [facility], [address], [place], [place], [address] , tel:[phone] Judson WWE/PAP (chief complaint) Cervical cancer screeningPCOS (polycystic ovarian syndrome)Hirsuti smSexual dysfunction 0 Jim Camp. [address] [place], [place], [address], [place]. tel:[phone] Referring Provider: Cody Stein, [address] [place] [address], [place], [address] . tel:[phone] BP OFFICE/OUTPA TIENT VISIT [facility], [address], [place], [place], [address] , tel:[phone] Judson Essential (primary) hypertension 0 Judson Ross. [address] [place] [address], [address], [place]. tel:[phone] Referring Provider: Cody Stein, [address] [place] [address], [place], [address] . tel:[phone] OFFICE [facility], [address], [place], [place], [address] , [place] tel:[phone] Judson MMP (chief complaint) Unilateral primary osteoarthritis, [...] asthma without complication 9 Judson Ross. [address] [place], [place], [address], [place]. tel:[phone] Referring Provider: Cody Stein, [address] [facility], [place], [address] . tel:[phone] [facility], [address], [place], [place], [address] , tel: [phone] Judson Unilateral primary osteoarthritis, left knee Sep-3 0-201 9 Judson Ross. [address] [facility], [place], [place], [address], . tel:[phone] Referring Provider: Cody Stein, [address] [facility], [place], [address] . tel:[phone] [facility] [address], [place], [place], [address] , tel: [phone] Judson No Information Sep-2 3-201 9 Judson Ross. [address] [place], [place], [address], . tel:[phone] Referring Provider: Cody Stein, [address] [facility], [place], [address] . tel:[phone] OFFICE TAYEF-KCR-DS PANDED [facility], [address], [place], [place], [address] , tel: [phone] Judson *depressio n (chief complaint) Current moderate episode of major depressive disorder without prior episodeUnilatera l primary osteoarthritis, left knee Sep-1 9- 9 Jim Camp. [address] [place], [place], [address], . tel:[phone] Referring Provider: Cody Stein, [address] [facility], [place], [address] . [phone] [facility] [address], [place], [place], [address] , tel: [phone] Judson Unilateral primary osteoarthritis, left knee Sep-1 6-201 9 Judson Ross. [address] [place], [place], [address], . tel:[phone] Referring Provider: Cody Stein, [address] [place] [address] B, [place], [address] . [phone] [facility], [address], [place], [place], [address] , tel: [phone] Roper Unilateral primary osteoarthritis, left knee Sep-0 9-201 9 Roper Cody. [address] [place] [address] B, [place], [place], [address], . tel:[phone] Referring Provider: Cody Stein, [address] [place] [address] B, [place], [address] . [phone] [facility], [address], [place], [place], [address] , tel: [phone] Roper Unilateral primary osteoarthritis, left knee Sep-0 5-201 9 Roper Cody. [address] [place] [address], [address], . tel:[phone] Referring Provider: Cody Stein, [address] [place] [address] B, [place], [address] . [phone] [facility], [address], [place], [place], [address] , tel: [phone] Roper Right arm pain Sep-0 4-201 9 Roper Cody. [address] [place] [address], [place], [place], [address], . tel:[phone] [facility], [address], [place], [place], [address] , tel: [phone] Roper Unilateral primary osteoarthritis, left knee Aug-1 9-201 9 Roper Cody. [address] [place] [address], [address], . tel:[phone] Referring Provider: Cody Stein, [address] [place] [address], [place], [address] . [phone] [facility], [address], [place], [place], [address] , tel: [phone] Roper Unilateral primary osteoarthritis, left knee 9 Judson Ross. [address] [facility], [place], [place], [address], [place]. tel:[phone] Referring Provider: Cody Stein, [address] [facility] [address], [place], [address] . tel:[phone] OFFICE OOFRF-SMD-PK [facility], [address], [place], [place], [address] , [place] tel:[phone] Judson mmp (chief complaint) Lateral epicondylitis of [...] persistent asthma without complication Judson Ross. [address] [facility], [place], [place], [address], [place]. tel:[phone] Referring Provider: Cody Stein, [address] [facility] [address], [place], [address] . tel:[phone] [facility], [address], [place], [place], [address] , [place] tel:[phone] Judson Chronic pain of left kneeOther chronic pain 9 [facility]. [address] [place] [address], [address] [facility], [place], [place], [address], [place]. tel:[phone] [facility], [address], [place], [place], [address] , [place] tel:[phone] Judson Left knee pain. (chief complaint) Chronic pain of left knee 9 [facility]. [address] [facility], [address] [facility], [place], [place], [address], [place]. tel:[phone] Referring Provider: Cody Stein, [address] [facility] [address], [place], [address] . tel:[phone] [employer], [address], [place], [place], [address] , [place] tel: [phone] Judson URI_ (chief complaint) Moderate persistent asthma with acute exacerbation Feb-3 0 9 [place]. [address] [place] [address], [address] Floor, [place], [place], [address], [place]. [phone] Referring Provider: Cody Stein, [address] [facility] [address], [place], [address] . tel:[phone] [employer], [address], [place], [place], [address] , [place] tel: [phone] Judson Lumbosacral radiculopathy due to degenerative joint disease of spineOsteoarthri tis of spine with radiculopathy, cervical regionOsteoarthr itis of multiple joints, unspecified osteoarthritis typeType 2 diabetes mellitus without complication, unspecified longterm insulin use statusEssential hypertensionMixe d hyperlipidemiaSc iatica, unspecified lateralityIrrita ble bowel syndrome with diarrheaGastroes ophageal reflux disease, esophagitis presence not specifiedInsomni a, unspecified typeCurrent smokerAsthma, unspecified asthma severity, unspecified whether complicated, unspecified whether persistentImmuni zation refusedLateral epicondylitis of right elbow 9 Judson Ross. [address] [facility] [address], [place], [place], [address], [place]. tel:[phone] Referring Provider: Cody Stein, [address] [facility] [address], [place], [address] . tel:[phone] [employer], [address], [place], [place], [address] , [place] tel: [phone] Judson Lumbosacral radiculopathy due to degenerative joint disease of spineOsteoarthri tis of spine with radiculopathy, cervical regionOsteoarthr itis of multiple joints, unspecified osteoarthritis typeType 2 diabetes mellitus without complication, unspecified ferry terminal supervisor insulin use statusEssential hypertensionMixe d hyperlipidemiaSc iatica, unspecified lateralityIrrita ble bowel syndrome with diarrheaGastroes ophageal reflux disease, esophagitis presence not specifiedInsomni a, unspecified typeCurrent smokerAsthma, unspecified asthma severity, unspecified whether complicated, unspecified whether persistent Oct-0 8-201 8 Judson Ross. [address] [place], [place], [address], . tel:[phone] Referring Provider: Cody Stein, [address] [place], [address] . tel:[phone] [employer], [address], [place], [place], [address] , [place] tel: [phone] Judson Lumbosacral radiculopathy due to degenerative joint disease of spineOsteoarthri tis of spine with radiculopathy, cervical regionOsteoarthr itis of multiple joints, unspecified osteoarthritis typeType 2 diabetes mellitus without complication, unspecified longterm insulin use statusEssential hypertensionMixe d hyperlipidemiaSc iatica, unspecified lateralityIrrita ble bowel syndrome with diarrheaGastroes ophageal reflux disease, esophagitis presence not specifiedInsomni a, unspecified typeCurrent smokerAsthma, unspecified asthma severity, unspecified whether complicated, unspecified whether persistentFatigu e, unspecified typeArthralgia of both kneesLow vitamin D level 2-201 8 Judson Ross. [address] [place], [place], [address], [place]. tel:[phone] Referring Provider: Cody Stein, [address] [place], [address] . tel:[phone] [employer], [address], [place], [place], [address] , [place] tel: [phone] Judson Lumbosacral radiculopathy due to degenerative joint disease of spineOsteoarthri tis of spine with radiculopathy, cervical regionOsteoarthr itis of multiple joints, unspecified osteoarthritis typeType 2 diabetes mellitus without complication, unspecified longterm insulin use statusEssential hypertensionMixe d hyperlipidemiaSc iatica, unspecified lateralityIrrita ble bowel syndrome with diarrheaGastroes ophageal reflux disease, esophagitis presence not specifiedInsomni a, unspecified typePainful menstrual flowCurrent smokerAsthma, unspecified asthma severity, unspecified whether complicated, unspecified whether persistentEye lesionChronic sinusitis, unspecified location 0 2 8 Judson Ross. [address] [facility], [place], [place], [address], . tel:[phone] Referring Provider: Cody Stein, [address] [facility] [address], [place], [address] . tel:[phone] [employer], [address], [place], [place], [address] , tel: [phone] Judson Type 2 diabetes mellitus without complication, unspecified longterm insulin use statusHypertensi ve heart disease without heart failureMixed hyperlipidemiaPr imary osteoarthritis of both hipsSpondylosis of cervical region without myelopathy or radiculopathySci atica, unspecified lateralityIrrita ble bowel syndrome with diarrheaGastroes ophageal reflux disease, esophagitis presence not specifiedInsomni a, unspecified typePainful menstrual flowCurrent smokerGanglion cystRight wrist tendonitisRight carpal tunnel syndromeLumbosac ral radiculopathy due to degenerative joint disease of spine 7 Judson Ross. [address] [facility], [place], [place], [address], . tel:[phone] Referring Provider: Cody Stein, [address] [place] [address] B, [place], [address] . tel:[phone] [employer], [address], [place], [place], [address] , tel: [phone] Judson Type 2 diabetes mellitus without complication, unspecified ferry terminal supervisor insulin use statusHypertensi ve heart disease without heart failureInsomnia, unspecified typePrimary osteoarthritis of both hipsSpondylosis of cervical region without myelopathy or radiculopathyPai nful menstrual flowIrritable bowel syndrome with diarrheaCurrent smokerInfluenza vaccination declinedGastroes ophageal reflux disease, esophagitis presence not specifiedSciatic a, unspecified lateralityStomac h painMedication monitoring encounter 7 Judson Ross. [address] [place] [address], [place], [place], [address], . tel:[phone] Referring Provider: Cody Stein, [address] [place] [address], [place], [address] . tel:[phone] [employer], [address], [place], [place], [address] , [place] tel: [phone] Judson Primary osteoarthritis of both hipsSpondylosis of cervical region without myelopathy or radiculopathyHyp ertensive heart disease without heart failureType 2 diabetes mellitus without complication, unspecified ferry terminal supervisor insulin use statusInsomnia, unspecified typeIrritable bowel syndrome with diarrheaPainful menstrual flowCurrent smoker 7 Judson Ross. [address] [place] [address], [id number], . tel:[phone] Referring Provider: Cody Stein, [address] [place] [address], [place], [address] . tel:[phone] [employer], [address], [place], [place], [address] , [place] tel: [phone] Judson Primary osteoarthritis of both hipsSpondylosis of cervical region without myelopathy or radiculopathyHyp ertensive heart disease without heart failureType 2 diabetes mellitus without complication, unspecified longterm insulin use statusInsomnia, unspecified typeIrritable bowel syndrome with diarrheaMixed hyperlipidemia 7 Judson Ross. [address] [place] [address], [place], [place], [address], [place]. tel:[phone] Referring Provider: Cody Stein, [address] [place] [address], [place], [address] . tel:[phone] [employer], [address], [place], [place], [address] , [place] tel: [phone] Judson Primary osteoarthritis of both hipsSpondylosis of cervical region without myelopathy or radiculopathyHyp ertensive heart disease without heart failureType 2 diabetes mellitus without complication, unspecified longterm insulin use statusInsomnia, unspecified type 6 Judson Ross. [address] [place], [place], [address], . tel:[phone] Referring Provider: Cody Stein, [address] [facility], [place], [address] . tel:[phone] [facility], [address], [place], [place], [address] , tel: [phone] Judson Strain of left hip, initial encounterLeft shoulder strain, initial encounter 6 Rowdy Lynch. [address] [place], [place], [address]. tel:[phone] Referring Provider: Cody Stein, [address] [place], [address] . tel:[phone] [facility], [address], [place], [place], [address] , tel: [phone] Judson Chronic obstructive pulmonary disease, unspecifiedOther allergic rhinitisMixed hyperlipidemiaOt her fatigueInsomnia, persistentLocali zed osteoarthritis of lumbar spine 6 Judson Ross. [address] [facility], [place], [place], [address], . tel:[phone] Referring Provider: Cody Stein, [address] [facility], [place], [address] . tel:[phone] [facility], [address], [place], [place], [address] , [place] tel: [phone] Judson Sciatica, unspecified lateralityCoughC hronic obstructive pulmonary disease, unspecifiedOther allergic rhinitisMorbid obesity, unspecified obesity type 5 Judson Ross. [address] [facility], [place], [place], [address], . [phone] Referring Provider: Coyd Stein, [address] [place], [address] . tel:[phone] Family History Family Member Type Diagnosis Age [...] Record Payers Payer name Insurance type Covered democrat ID Sultana ramirez(s) BCBS ACCESS CHOICE [id number] BCBS ACCESS CHOICE BL [id number] BCBS INACTIVE OUT OF STATE [id number] BCBS INACTIVE OUT OF STATE [id number] Social History Type Description Quantity Date Captured [...] Елена Melendez Ordered: Referrals: Pain Medicine. Dr. Еелна Melendez. Evaluation/diagnostic/treatment - Level 3 ordered Referral [...] Order SC REENING MAMMOGRAM (CAD) Bilateral breast (62063), Body Site: breast, Sent on: Sent Future Order: Radiology Order SC REENING MAMMOGRAM (CAD) Bilateral breast ([id number]), Body Site: breast, Sent on: Sent Future Order: Radiology Order SC REENING MAMMOGRAM (CAD) Bilateral breast ([id number]), Body Site: breast, Sent on: Sent Future Order: Lab Order Urine Cu lture, Routine ([id number]), Collected on: , Sent on: Sent Future Order: Lab Order UA- Dips tick (office Lab) ([id number]), Collected on: Ordered Future Order: Radiology Order SC REENING MAMMOGRAM (CAD) Bilateral breast ([id number]), Body Site: breast, Sent on: Sent History [...] or exercise.Smoker: No change in habits reported. [facility] Pre-Op Clearance : Pt is overall [...] scheduled for this . No other complaints. [facility] HTN: Pt is med c ompliant. [...] stretching and massage, local pressure improves pain. [facility] HTN: Pt is manag ing through [...] PCOS: Pt is med compliant. 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 No complaints. Metabolic syndrome: per [...] PCOS: Pt is med compliant. 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 No complaints. Metabolic syndrome: per [...] PCOS: Pt is med compliant. 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 No complaints. Metabolic syndrome: per [...] Pt reports that her pain is unchanged. etna Muñoz came in for multiple problems today [...] with Dr. Tracy (spelling?), hand surgeon at [facility]. 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 Has not tried otc diarrhea mediations. [...] Pt has fhx of lymphoma but last optical laboratory mechanic visit found no cause for concernMetabolic syndrome: [...] that of lymphoma. Pt followed up with optical laboratory mechanic and he could not find anything wrong [...] after cutting back on her hours at [employer]. *depression Patient presents today with persistent feelings [...] has tried a knee brace from the [facility] and Ibuprofen with minimal relief. URI_ Patient [...] Pain Management. Encourage to complete stretches and ekzpk-zg-lxnggp exercises. Encouraged patient to try and lose some weight. Will monitor. Related to Other spondylosis with radiculopathy, cervical region Unchanged. Insurance will no longer pay for injections. Continue current treatment with Oxycodone 10mg-325mg 1 tab four times daily. Continue following up with Pain Management. Continue following up with Dr. Dolan, orthopaedic surgeon as scheduled. Encourage to complete stretches and ueigs-jh-vgbjep exercises. Encouraged patient to try and lose some weight. Will monitor. Related to Other spondylosis with radiculopathy, lumbosacral region Unchanged. Insurance will no longer pay for injections. Continue current treatment with Oxycodone 10mg-325mg 1 tab four times daily. Continue following up with Pain Management. Encourage to complete stretches and rsugc-di-wkoerk exercises. Encouraged patient to try and lose some weight. Will monitor. Related to Spondylosis, unspecified Unchanged. Insurance will no longer pay for injections. Continue current treatment with Oxycodone 10mg-325mg 1 tab four times daily. Continue following up with Pain Management. Encourage to complete stretches and glxea-os-qnlkmk exercises. Encouraged patient to try and lose [...] Pain Management. Encourage to complete stretches and gdeig-qm-qrbnud exercises. Encouraged patient to try and lose [...] as scheduled. Encourage to complete stretches and yukcb-ev-mxdqhr exercises. Encouraged patient to try and lose some weight. Will monitor. Related to Other spondylosis with radiculopathy, lumbosacral region Unchanged. Insurance will no longer pay for injections. Continue current treatment with Oxycodone 10mg-325mg 1 tab four times daily. Continue following up with Pain Management. Encourage to complete stretches and upign-ye-xxsyxy exercises. Encouraged patient to try and lose some weight. Will monitor. Related to Spondylosis, unspecified S/p 2 level ACDF wit h plating. With improved symptoms. PDMP has been checked. Continue current treatment with Oxycodone 10mg-325mg 1 tab four times daily. Continue following up with Pain Management. Encourage to complete stretches and srupu-nt-sdcfot exercises. Encouraged patient to try and lose [...] as scheduled. Encourage to complete stretches and uemzo-tj-jwotcj exercises. Encouraged patient to try and lose some weight. Will monitor. Related to Other spondylosis with radiculopathy, lumbosacral region Unchanged. Insurance will no longer pay for injections. Continue current treatment with Oxycodone 10mg-325mg 1 tab four times daily. Continue following up with Pain Management. Encourage to complete stretches and apwcb-co-pdxttr exercises. Encouraged patient to try and lose some weight. Will monitor. Related to Unilateral primary osteoarthritis, left knee S/p 2 level ACDF wit h plating. With improved symptoms. PDMP has been checked. Continue current treatment with Oxycodone 10mg-325mg 1 tab four times daily. Continue following up with Pain Management. Encourage to complete stretches and aazdz-tk-wibrmo exercises. Encouraged patient to try and lose some weight. Will monitor. Related to Other spondylosis with radiculopathy, cervical region Unchanged. Insurance will no longer pay for injections. Continue current treatment with Oxycodone 10mg-325mg 1 tab four times daily. Continue following up with Pain Management. Encourage to complete stretches and tzurn-wc-ohthxl exercises. Encouraged patient to try and lose [...] as scheduled. Encourage to complete stretches and zzfeh-fu-sjzqzv exercises. Encouraged patient to try and lose [...] as scheduled. Encourage to complete stretches and wqpif-kz-sqgfbs exercises. Encouraged patient to try and lose [...] as scheduled. Encourage to complete stretches and tvqhz-bi-qhbnof exercises. Encouraged patient to try and lose [...] as scheduled. Encourage to complete stretches and umytt-xr-wunwgs exercises. Encouraged patient to try and lose [...] as scheduled. Encourage to complete stretches and pdrro-lk-drhhbz exercises. Encouraged patient to try and lose [...] as scheduled. Encourage to complete stretches and xydmp-sa-odtqlo exercises. Encouraged patient to try and lose some weight. Will monitor. Related to Other chronic pain Unchanged. Continue current treatment with Hydrocodone 5-325mg 1 tab TID prn, Nabumetone 750mg 1 tab BID and Gabapentin 300mg 2 tabs TID. Continue following up with orthopaedic surgeon as scheduled. Encourage to complete stretches and hdmia-iw-mntzds exercises. Encouraged patient to try and lose [...] as scheduled. Encourage to complete stretches and ntltl-vl-uvfxib exercises. Encouraged patient to try and lose some weight. Will monitor. Related to Unilateral primary osteoarthritis, left knee Unchanged. Continue current treatment with Hydrocodone 5-325mg 1 tab TID prn, Nabumetone 750mg 1 tab BID and Gabapentin 300mg 2 tabs TID. Continue following up with orthopaedic surgeon as scheduled. Encourage to complete stretches and rxypq-ul-kydlff exercises. Encouraged patient to try and lose [...] as scheduled. Encourage to complete stretches and ltauy-ua-mnlqdk exercises. Encouraged patient to try and lose [...] as scheduled. Encourage to complete stretches and ojofc-br-auahgp exercises. Encouraged patient to try and lose some weight. Will monitor. Related to Other chronic pain Unchanged. Continue current treatment with Hydrocodone 5-325mg 1 tab TID prn, Nabumetone 750mg 1 tab BID and Gabapentin 300mg 2 tabs TID. Continue following up with orthopaedic surgeon as scheduled. Encourage to complete stretches and sphrf-vn-jgxobq exercises. Encouraged patient to try and lose [...] as scheduled. Encourage to complete stretches and xytor-er-yjmjay exercises. Encouraged patient to try and lose some weight. Will monitor. Related to Lumbosacral radiculopathy due to degenerative joint disease of spine Unchanged. Continue current treatment with Hydrocodone 5-325mg 1 tab TID prn, Nabumetone 750mg 1 tab BID and Gabapentin 300mg 2 tabs TID. Continue following up with orthopaedic surgeon as scheduled. Encourage to complete stretches and pwugw-xc-hciary exercises. Encouraged patient to try and lose [...] as scheduled. Encourage to complete stretches and hfpcd-lb-kvbfnf exercises. Encouraged patient to try and lose some weight. Will monitor. Related to Osteoarthritis of spine with radiculopathy, cervical region Unchanged. Continue current treatment with Hydrocodone 5-325mg 1 tab TID prn, Nabumetone 750mg 1 tab BID and Gabapentin 300mg 2 tabs TID. Continue following up with orthopaedic surgeon as scheduled. Encourage to complete stretches and wbimr-xr-qoqmej exercises. Encouraged patient to try and lose [...] as scheduled. Encourage to complete stretches and cbyfe-lu-wthnbb exercises. Encouraged patient to try and lose some weight. Will monitor. Related to Unilateral primary osteoarthritis, left knee Unchanged. Continue current treatment with Hydrocodone 5-325mg 1 tab TID prn, Nabumetone 750mg 1 tab BID and Gabapentin 300mg 2 tabs TID. Continue following up with orthopaedic surgeon as scheduled. Encourage to complete stretches and hpgrh-bs-bndzaq exercises. Encouraged patient to try and lose some weight. Will monitor. Related to Osteoarthritis of spine with radiculopathy, cervical region Unchanged. Continue current treatment with Hydrocodone 5-325mg 1 tab TID prn, Nabumetone 750mg 1 tab BID and Gabapentin 300mg 2 tabs TID. Continue following up with orthopaedic surgeon as scheduled. Encourage to complete stretches and flkav-oc-tlsrhe exercises. Encouraged patient to try and lose some weight. Will monitor. Related to Spondylosis Unchanged. Continue current treatment with Hydrocodone 5-325mg 1 tab TID prn, Nabumetone 750mg 1 tab BID and Gabapentin 300mg 2 tabs TID. Continue following up with orthopaedic surgeon as scheduled. Encourage to complete stretches and ppakh-ec-bjwwke exercises. Encouraged patient to try and lose [...] as scheduled. Encourage to complete stretches and lbnqf-vw-gcigtw exercises. Encouraged patient to try and lose [...] as scheduled. Encourage to complete stretches and khdxs-yx-toavoa exercises. Encouraged patient to try and lose [...] as scheduled. Encourage to complete stretches and yavpy-tx-rmzdtu exercises. Encouraged patient to try and lose some weight. Will monitor. Related to Osteoarthritis of spine with radiculopathy, cervical region Unchanged. Continue current treatment with Hydrocodone 5-325mg 1 tab TID prn, Nabumetone 750mg 1 tab BID and Gabapentin 300mg 2 tabs TID. Continue following up with orthopaedic surgeon as scheduled. Encourage to complete stretches and xaptz-bt-ujhtts exercises. Encouraged patient to try and lose [...] as scheduled. Encourage to complete stretches and yjozq-dg-tgfrhj exercises. Encouraged patient to try and lose some weight. Will monitor. Related to Lumbosacral radiculopathy due to degenerative joint disease of spine Unchanged. Continue current treatment with Hydrocodone 5-325mg 1 tab TID as needed, Nabumetone 750mg 1 tab BID and Gabapentin 300mg 2 tabs QID. Continue following up with orthopaedic surgeon as scheduled. Encourage to complete stretches and awkpo-qc-jvmken exercises. Encouraged patient to try and lose [...] as scheduled. Encourage to complete stretches and lipeo-ap-dlghas exercises. Encouraged patient to try and lose some weight. Will monitor. Related to Unilateral primary osteoarthritis, left knee Unchanged. Continue current treatment with Hydrocodone 5-325mg 1 tab TID as needed, Nabumetone 750mg 1 tab BID and Gabapentin 300mg 2 tabs QID. Continue following up with orthopaedic surgeon as scheduled. Encourage to complete stretches and hwoeh-nq-sqbxpp exercises. Encouraged patient to try and lose [...] as scheduled. Encourage to complete stretches and kbeur-iv-gdrika exercises. Encouraged patient to try and lose [...] as scheduled. Encourage to complete stretches and lniqe-zb-iafrcb exercises. Encouraged patient to try and lose [...] as scheduled. Encourage to complete stretches and zoyhb-ra-gmdkqe exercises. Encouraged patient to try and lose [...] as scheduled. Encourage to complete stretches and pfwza-jz-kzrndm exercises. Encouraged patient to try and lose [...] as scheduled. Encourage to complete stretches and kuyij-ch-hhhugn exercises. Encouraged patient to try and lose some weight. Will monitor. Related to Unilateral primary osteoarthritis, left knee Unchanged. Continue current treatment with Hydrocodone 5-325mg 1 tab TID as needed, Relafen 750mg 1 tablet BID, and Gabapentin 300mg 2 tabs QID. Continue following up with orthopaedic surgeon as scheduled. Encourage to complete stretches and cduqi-si-aatjrt exercises. Encouraged patient to try and lose some weight. Will monitor. Related to Spondylosis Unchanged. Continue current treatment with Hydrocodone 5-325mg 1 tab TID as needed, Relafen 750mg 1 tablet BID, and Gabapentin 300mg 2 tabs QID. Continue following up with orthopaedic surgeon as scheduled. Encourage to complete stretches and rxvkb-gg-wefvxi exercises. Encouraged patient to try and lose [...] screening mammogram in office today.RHM: Pt received [employer] COVID-19 vaccine x1 on 06/14/2021 and is [...] as scheduled. Encourage to complete stretches and obbvo-ge-hmvxjt exercises. Encouraged patient to try and lose [...] as scheduled. Encourage to complete stretches and xgayn-ru-qzacel exercises. Encouraged patient to try and lose some weight. Will monitor. Related to Osteoarthritis of spine with radiculopathy, cervical region Stable. Continue cur rent treatment with Hydrocodone 5-325mg 1 tab TID as needed, Relafen 750mg 1 tablet BID, and Gabapentin 300mg 2 tabs QID. Continue following up with orthopaedic surgeon as scheduled. Encourage to complete stretches and pjvuk-bt-uluxib exercises. Encouraged patient to try and lose [...] foot edema. Encourage to complete stretches and iofly-em-qkablo exercises. Encouraged patient to try and lose some weight. Will monitor. Related to Unilateral primary osteoarthritis, left knee Stable. Continue cur rent treatment with Hydrocodone 5-325mg 1 tab TID as needed, Relafen 750mg 1 tablet BID, and Gabapentin 300mg 2 tabs QID. Continue following up with orthopaedic surgeon as scheduled. Encourage to complete stretches and omtiu-mc-rrbpqd exercises. Encouraged patient to try and lose some weight. Will monitor. Related to Spondylosis Stable. Continue cur rent treatment with Hydrocodone 5-325mg 1 tab TID as needed, Relafen 750mg 1 tablet BID, and Gabapentin 300mg 2 tabs QID. Continue following up with orthopaedic surgeon as scheduled. Encourage to complete stretches and nkppa-zx-ucputy exercises. Encouraged patient to try and lose [...] vigilant self-foot exams. Will continue to monitor.Labs: [id number]: Able to self-manage condition. Goals: Your goal [...] wrist See plan #12Labs: CM P, CBC, Z2aJktmrk up in 3 months or sooner if [...] as scheduled. Encourage to complete stretches and vydzt-le-emkknv exercises. Encouraged patient to try and lose [...] as scheduled. Encourage to complete stretches and tynfp-gy-jhawge exercises. Encouraged patient to try and lose some weight. Will monitor. Related to Osteoarthritis of spine with radiculopathy, cervical region Symptomatic. INCREAS E Hydrocodone 5-325mg 1 tab TID as needed. Continue current treatment - Relafen 750mg 1 tablet BID, and Gabapentin 300mg 2 tabs QID. Continue following up with orthopaedic surgeon as scheduled. Encourage to complete stretches and nqlfa-zj-jqlrcj exercises. Encouraged patient to try and lose [...] as scheduled. Encourage to complete stretches and xmufb-ss-gjwwsd exercises. Encouraged patient to try and lose some weight. Will monitor. Related to Lumbosacral radiculopathy due to degenerative joint disease of spine Symptomatic. INCREAS E Hydrocodone 5-325mg 1 tab TID as needed. Continue current treatment - Relafen 750mg 1 tablet BID, and Gabapentin 300mg 2 tabs QID. Continue following up with orthopaedic surgeon as scheduled. Encourage to complete stretches and hrlyl-br-tevcum exercises. Encouraged patient to try and lose [...] tabs QID. Encourage to complete stretches and ljafu-ad-xyrqxr exercises. Encouraged patient to try and lose some weight. Will monitor. Related to Sciatica, unspecified laterality Symptomatic. Continu e following up with orthopaedic surgeon as scheduled. Continue with Hydrocodone 5-325mg 1 tab every 12 hours as needed, Relafen 750mg 1 tablet BID, and Gabapentin 300mg 2 tabs QID. Encourage to complete stretches and ijczu-ej-bhlupz exercises. Encouraged patient to try and lose some weight. Will monitor. Related to Spondylosis Symptomatic. Continu e following up with orthopaedic surgeon as scheduled. Continue with Hydrocodone 5-325mg 1 tab every 12 hours as needed, Relafen 750mg 1 tablet BID, and Gabapentin 300mg 2 tabs QID. Encourage to complete stretches and dtgkf-yh-mmwgms exercises. Encouraged patient to try and lose some weight. Will monitor. Related to Osteoarthritis of spine with radiculopathy, cervical region Symptomatic. Continu e following up with orthopaedic surgeon as scheduled. Continue with Hydrocodone 5-325mg 1 tab every 12 hours as needed, Relafen 750mg 1 tablet BID, and Gabapentin 300mg 2 tabs QID. Encourage to complete stretches and ilpqc-wk-hlsfri exercises. Encouraged patient to try and lose some weight. Will monitor. Related to Lumbosacral radiculopathy due to degenerative joint disease of spine Symptomatic. Continu e following up with orthopaedic surgeon as scheduled. Continue with Hydrocodone 5-325mg 1 tab every 12 hours as needed, Relafen 750mg 1 tablet BID, and Gabapentin 300mg 2 tabs QID. Encourage to complete stretches and nsykb-yw-kmtopa exercises. Encouraged patient to try and lose [...] tabs QID. Encourage to complete stretches and kogbg-ek-xfyfjk exercises. Encouraged patient to try and lose some weight. Will monitor. Related to Unilateral primary osteoarthritis, left knee Controlled. Continue following up with orthopaedic surgeon as scheduled. Continue with Hydrocodone 5-325mg 1 tab every 12 hours as needed. STOP Feldene 20mg 1 tab daily. START with Relafen 750mg 1 tablet BID. Continue with Gabapentin 300mg 2 tabs QID. Encourage to complete stretches and gfdbg-jc-xoxixb exercises. Encouraged patient to try and lose [...] tabs QID. Encourage to complete stretches and doohi-ov-evbeor exercises. Encouraged patient to try and lose [...] tabs QID. Encourage to complete stretches and lssyv-os-nmhrvw exercises. Encouraged patient to try and lose some weight. Will monitor. Related to Spondylosis Symptomatic. Continu e following up with orthopaedic surgeon as scheduled. Continue with Hydrocodone 5-325mg 1 tab every 6 hours as needed. STOP Feldene 20mg 1 tab daily. START Relafen 750mg 1 tablet BID Continue with Gabapentin 300mg 2 tabs QID. Encourage to complete stretches and xmrsf-eh-vhwjfl exercises. Encouraged patient to try and lose [...] as directed. Encourage to complete stretches and xyllt-az-rijifa exercises. Encouraged patient to try and lose some weight. Will monitor. Related to Sciatica, unspecified laterality Stable. Will continu e to monitor. Notify for worsening symptoms. Related to Irritable bowel syndrome with diarrhea WBC 16.78 on 019. Will refer to optical laboratory mechanic if WBC remains elevated today. Will monitor. [...] as directed. Encourage to complete stretches and kdwam-bm-umiesm exercises. Encouraged patient to try and lose [...] as directed. Encourage to complete stretches and wnevu-eh-raszys exercises. Encouraged patient to try and lose [...] as directed. Encourage to complete stretches and ingmb-lj-whzogt exercises. Encouraged patient to try and lose [...] tab QHS. Encourage to complete stretches and twmhi-ri-qsxqwg exercises. Will continue to monitor. Related to [...] as directed. Encourage to complete stretches and rjfvp-zi-jviwqa exercises. Encouraged patient to try and lose [...] as directed. Encourage to complete stretches and tjupq-yd-fffaon exercises. Encouraged patient to try and lose some weight. Will monitor. Related to Lateral epicondylitis of right elbow WBC 16.78 on 019. Will refer to optical laboratory mechanic if WBC remains elevated today. Will monitor. Related to Leukocytosis, unspecified type Pain persists. Judy nue following up with orthopaedic surgeon as scheduled. Continue with Hydrocodone 5-325mg 1 tab every 6 hours as needed and Feldine 20mg 1 tab daily. Gabapentin 300mg 2 tabs QID and Flexeril 10mg 1 tab QHS as directed. Encourage to complete stretches and rfriv-nc-jvbeng exercises. Encouraged patient to try and lose [...] as directed. Encourage to complete stretches and ucriq-hl-stpewo exercises. Encouraged patient to try and lose [...] as directed. Encourage to complete stretches and rimxh-fz-wzxrnd exercises. Encouraged patient to try and lose [...] tab QHS. Encourage to complete stretches and okfsz-wk-dryeoc exercises. Will continue to monitor. Related to [...] as directed. Encourage to complete stretches and uexnh-op-aawhze exercises. Encouraged patient to try and lose [...] identified. Related to Metabolic syndrome Pain persists. Jduy nue with Gabapentin 300mg 2 tabs QID and Flexeril 10mg 1 tab QHS as directed. Encourage to complete stretches and piumn-qo-figmcl exercises. Encouraged patient to try and lose some weight. Will monitor. Related to Lumbosacral radiculopathy due to degenerative joint disease of spine Pain persists. Judy nue with Gabapentin 300mg 2 tabs QID and Flexeril 10mg 1 tab QHS as directed. Encourage to complete stretches and rcjtu-fo-aohvdh exercises. Encouraged patient to try and lose some weight. Will monitor. Related to Lateral epicondylitis of right elbow WBC 19.61 on 019 and 19.23 on 05/20/2019. Will refer to optical laboratory mechanic if WBC remains elevated today. Will monitor. [...]
--- OUTSIDE RECORDS SUMMARY | 2025-04-10 18:37 | XMS_ITS | Continuity of Care Document ---
Author Organization [facility] [facility] Address [address] [place] [address] Phone Care Team Providers Care Statistician Mathematical Name Role Phone Raz Zaldivar PT Unavailable [...] Diagnoses Date Provider Providers Copied on Encounter [facility], [place], [place], [id number], tel:[phone] [place] No Information 2 Zen Crandall. . [facility], [place], [place], [address], tel:[phone] [facility] No Information 2 Zen Crandall. . Referring Provider: Cody Roper, [facility] [facility] [address], [place], [address]. tel:[phone] [facility], [place], [place], [id number], tel:[phone] [place] No Information 0 2 Zenbarrett Crandall. . Referring Provider: Cody Roper, [address] [facility] [address], [place], [address]. tel:[phone] [employer] [place], [address], [place], [place], [address], tel:[phone] [place] No Information 2 Zenbarrett Crandall. . Referring Provider: Cody Roper, [address], [place], [address]. tel:[phone] Family History Family Member Type Diagnosis Age At Onset No Information Payers Payer name Insurance type Covered democrat ID Authorantonio ramirez(s) [facility] [place] [id number] Social History Type Description Quantity Date Captured [...]
--- OUTSIDE RECORDS SUMMARY | 2025-04-10 18:37 | XMS_ITS | Encounter Summary ---
Author Organization [facility] Address [address] [place] [address] Care Team Providers Care Emotionally Impaired Teacher Name Role Phone Cody Roper DO Primary Care Provider David Bell MD Unavailable [phone] Encounter Details Date Type Department Care Team (Late st Contact Info) Description 01/12/2023 Telephone [facility] [address] [place] [address] [place] [id number] [address] Social History Tobacco Use Types Packs/Day Years [...] on filedocumented in this encounter Care Teams Emotionally Impaired Teacher Relationship Specialty Start Date End Date Cody Roper DO [address] [place] [address] PCP - General Family Medicine 07/02/19 David Bell MD [address] [place] [address] Medical Oncologist/Spiritual Minister Hematology and Oncology 06/11/20 documented as of this encounter
--- OUTSIDE RECORDS SUMMARY | 2025-04-10 18:37 | XMS_ITS | Clinical Summary ---
Author Organization [facility] Address [address] [place] [address] Care Team Providers Care Block Breaker Operator Name Role Phone Cody Roper DO Primary Care Provider David Bell MD Unavailable [phone] Allergies No known active allergies Medications [...] tablet 1 hour before procedure. Will need hazmat cdl a driver to bring him. 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) 03/12/2025 Orders Only [facility] [id number] [place] [address] [address] Medical Office Building 1 [place] [phone] Lexis Renteria MD 03/12/2025 Orders Only [facility] [address] [place] [address] [address] Medical Office Building 1 [place] [phone] Karina Sharma RMA 03/04/2025 2:45 PM CDT Office Visit [facility] [address] [place] [address] Advanced Medicine 6th [place] [address] Josiane Oliveira NP 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 02/26/2025 8:15 AM CDT Anesthesia Event [facility] Operating [facility] [address] [place] [address] Brandon Reyes MD 02/26/2025 8:00 AM CDT - 02/26/2025 10:00 AM CDT Surgery [facility] Operating [facility] ([facility]) [address] [place] [address] Lexis Renteria MD RIGHT FOREARM SECONDARY CLOSURE OF SURGICAL WOUND 02/25/2025 Telephone [facility] [address] [place] [address] Advanced Medicine 6th [place] [address] Shweta Perry RN 02/19/2025 9:35 PM CDT - 02/19/2025 11:35 PM CDT Surgery [facility] Operating Room 1 [place] [address] Lexis Renteria MD FASCIOTOMY 02/19/2025 9:10 PM CDT Anesthesia Event [facility] Operating Room 1 [place] [id number] Palomo Jaramillo MD Bharadwaj, Amy Robles MD 02/19/2025 8:03 PM CDT - 02/27/2025 9:51 AM CDT Hospital Encounter [facility] [address] [facility] [place] [address] Magalie Archibald MD Currie, Lexis Galeano MD [...] = 0.6 oz pur e alcohol) rare [facility] Utilities Answer Date Recorded In the [...] often do you attend chur ch or cheondoism services? 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 Case Notes Imtiaz [phone] @ 2032 FASCIOTOMY 02/19/2025 9:17 PM CDT 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 Case Notes Imtiaz [phone] @ 2032 POCT HCG, URINE Routine 02/19/2025 [...] POCT ORDERABLES - DE VICE Final Result [facility] [place] [address] * Airway (02/26/2025 8:31 AM CDT) Narrative [...] DE VICE Final Result Performing Organization Address [facility]/ZIP Co de Phone Number [facility] [place] [address] * Type and screen (02/26/2025 7:47 AM CDT) ABO Rh A Positive [place], indirect Negative [facility] Blood 02/26/2025 7:47 AM CDT 02/26/2025 8:09 AM CDT Narrative [facility] - 02/26/2025 9:00 AM CDT Has the patient had Daratumumab or Isatuximab in the past 6 months?->Unknown Brandon Reyes MD LAB BLOOD BANK TEST ORD ERABLES Final Result [facility] [place] [address] * eGFR (02/25/2025 9:31 PM CDT) [facility] eGFR >90 >=60 mL/min/1. 73 m2 [...] MD LAB BLOOD ORDERABLES Fin al Result [facility] [place] [address] * (ABNORMAL) CBC without differential (02/25/2025 9:31 PM CDT) [facility] WBC 14.05(H) 3.80 - 9.90 K/cumm Hgb 13.5 11.9 - 15.5 g/dL [facility] Hct 41.7 35.6 - 45.5 % [facility] Plt 286 150 - 400 K/cumm [facility] MPV 9.5 9.1 - 12.3 fL [facility] RBC 4.50 3.90 - 5.20 M/cumm [facility] MCV 92.7 81.3 - 96.4 fL [facility] MCH 30.0 27.1 - 33.3 pg [facility] MCHC 32.4 32.3 - 35.7 g/dL [facility] RDW CV 14.4 11.1 - 14.9 % [facility] RDW SD 48.6(H) 35.7 - 48.1 fL [facility] NRBC abs 0.00 0.00 - 0.01 K/cumm [facility] Blood 02/25/2025 9:31 PM CDT 02/25/2025 10:13 PM CDT us Lexis Renteria MD LAB BLOOD ORDERABLES Fin al Result [facility] [place] [address] * Basic metabolic panel (02/25/2025 9:31 PM CDT) Sodium 139 135 - 145 mmol/L Potassium, pl 4.3 3.3 - 4.9 mmol/L [facility] Chloride 103 97 - 110 mmol/L [facility] CO2 26 22 - 32 mmol/L [facility] Anion gap 10 2 - 15 mmol/L [facility] BUN 12 6 - 25 mg/dL [facility] Creatinine 0.69 0.60 - 1.10 mg/dL [facility] Glucose 133 70 - 199 mg/dL [facility] Comment: Interpretive Data Fasting glucose >/= 126 [...] 2022. Calcium 9.1 8.5 - 10.3 mg/dL [facility] Blood 02/25/2025 9:31 PM CDT 02/25/2025 10:12 PM CDT us Lexis Renteria MD LAB BLOOD ORDERABLES Fin al Result Performing Organization Address [facility] Co de Phone Number [facility] [place] [address] * (ABNORMAL) Hemoglobin A1c (02/24/2025 9:50 AM CDT) Hgb A1C 6.3(H) 4.0 - 5.6 % Estimated Average Glucose 134 mg/dL [facility] Comment: The ADA recommends reporting an estimated [...] ORDERABLES Fin al Result Performing Organization Address [facility] Co de Phone Number [facility] [place] [address] * eGFR (02/21/2025 8:58 AM CDT) eGFR [...] Fin al Result Performing Organization Address City/[facility]/ZIP Co de Phone Number [facility] [place] [address] * (ABNORMAL) CBC without differential (02/21/2025 8:58 AM CDT) WBC 17.70(H) 3.80 - 9.90 K/cumm Hgb 13.5 11.9 - 15.5 g/dL [facility] Hct 40.8 35.6 - 45.5 % [facility] Plt 267 150 - 400 K/cumm [facility] MPV 9.4 9.1 - 12.3 fL [facility] RBC 4.49 3.90 - 5.20 M/cumm [facility] MCV 90.9 81.3 - 96.4 fL [facility] MCH 30.1 27.1 - 33.3 pg [facility] MCHC 33.1 32.3 - 35.7 g/dL [facility] RDW CV 14.6 11.1 - 14.9 % [facility] RDW SD 48.9(H) 35.7 - 48.1 fL [facility] NRBC abs 0.00 0.00 - 0.01 K/cumm [facility] Blood 02/21/2025 8:58 AM CDT 02/21/2025 9:11 AM CDT us Lexis Renteria MD LAB BLOOD ORDERABLES Fin al Result Performing Organization Address City/[facility]/ZIP Co de Phone Number [facility] Department [place] [address] * (ABNORMAL) Basic metabolic panel (02/21/2025 8:58 AM CDT) Sodium 138 135 - 145 mmol/L Potassium, pl 3.5 3.3 - 4.9 mmol/L [facility] Chloride 102 97 - 110 mmol/L [facility] CO2 26 22 - 32 mmol/L [facility] Anion gap 10 2 - 15 mmol/L [facility] BUN 9 6 - 25 mg/dL [facility] Creatinine 0.70 0.60 - 1.10 mg/dL [facility] Glucose 240(H) 70 - 199 mg/dL [facility] Comment: Interpretive Data Fasting glucose >/= 126 [...] 2022. Calcium 9.0 8.5 - 10.3 mg/dL [facility] Blood 02/21/2025 8:58 AM CDT 02/21/2025 9:11 AM CDT us Lexis Renteria MD LAB BLOOD ORDERABLES Fin al Result [facility] [place] [address] * XR Chest 1 View (02/20/2025 1:55 [...] signed by: Jairo Claire M.D. Nathalie Rodriguez DRUG ABUSE RESISTANCE EDUCATION OFFICER IMG XR PROCEDURES Final Resu lt * Respiratory pathogen panel Nasopharyngeal (02/20/2025 10:39 AM CDT) Influenza A RNA Not Detected Not Detected Influenza B RNA Not Detected Not Detected [facility] RSV RNA Not Detected Not Detected [facility] COVID-19 RNA Not Detected Not Detected [facility] Coronavirus 229E RNA Not Detected Not Detected [facility] Coronavirus HKU1 RNA Not Detected Not Detected [facility] Coronavirus NL63 RNA Not Detected Not Detected [facility] Coronavirus OC43 RNA Not Detected Not Detected [facility] Adenovirus DNA Not Detected Not Detected [facility] Metapneumovirus RNA Not Detected Not Detected [facility] Rhinovirus/Enterov irus RNA Not Detected Not Detected [facility] Parainfluenza 1 RNA Not Detected Not Detected [facility] Parainfluenza 2 RNA Not Detected Not Detected [facility] Parainfluenza 3 RNA Not Detected Not Detected [facility] Parainfluenza 4 RNA Not Detected Not Detected [facility] B. pertussis DNA Not Detected Not Detected [facility] B. parapertussis DNA Not Detected Not Detected [facility] C. pneumoniae DNA Not Detected Not Detected [facility] M. pneumoniae DNA Not Detected Not Detected [facility] Nasopharyngeal 02/20/2025 10 :39 AM CDT 02/20/2025 10:52 AM CDT [facility] - 02/20/2025 11:59 AM CDT Is the Patient experiencing symptoms consistent with COVID?->No Surveillance testing for transplant patient?->No Interpretive Data The [employer] FilmArray Respiratory Panel (RP2.1) assay is a [...] assay has FDA clearance for testing of DRUG ABUSE RESISTANCE EDUCATION OFFICER swabs. The performance of additional specimen types has been assessed by the performing laboratory. The performance characteristics of this assay have been determined by [facility] Molecular Infectious Disease Laboratory. Current interpretive data was last revised on 22. us Nathalie Rodriguez DRUG ABUSE RESISTANCE EDUCATION OFFICER LAB MICROBIOLOGY - GENERAL O RDERABLES Final Result [facility] [place] [address] * [place] AN EMERGENT ENDOTRACHEAL AIRWAY, [place] [...] Straw Yellow Clarity, ur Clear Clear [facility] Specific gravity, ur >1.042(H) 1.003 - 1.030 [facility] pH, urine 6.5 [facility] Comment: Interpretive Data U rine pH is affected by diet, medications, systemic acid-base disturbances, and renal tubular function. pH may affect urinary stone formation. For example, urine pH below 6.0 may help reduce the tendency for calcium phosphate stones and pH greater than 6.0 may reduce the tendency for uric acid stone formation. Source: [facility] [employer] Current Interpretive Data was last revised on 2017 Protein, ur ql 1+(A) Negative [facility] Glucose, ur ql Negative Negative [facility] Ketones, ur Trace Negative [facility] Bilirubin, ur Negative Negative [facility] Blood, ur 2+(A) Negative [facility] Urobilinogen, ur <2.0 <2.0 mg/dL [facility] Nitrite, ur Negative Negative [facility] Leukocyte esterase, ur Trace(A) Negative [facility] UA reflex comment Reflex to microscopic UA will be performed. [facility] Urine, clean voided 02/19/2025 9:09 PM CDT 02/19/2025 9:24 PM CDT Lauren Haro MD LAB MICROBIOLOGY - GENE RAL ORDERABLES Final Result [facility] [place] [address] * (ABNORMAL) Urinalysis, microscopic only (02/19/2025 9:09 PM CDT) WBC, ur 6-10(A) 0 - 5 /HPF RBC, ur 6-10(A) 0 - 2 /HPF [facility] Epithelial cells, squamous, ur 6-10(A) 0 - 5 /HPF [facility] Comment:Suggestive of contam ination. Consider recollection by clean catch. Mucous, ur Present(A) [facility] Culture Reflex Comment Reflex conditions for urine culture (WBC >10) not met. [facility] Urine, clean voided 02/19/2025 9:09 PM CDT 02/19/2025 9:24 PM CDT Lauren Haro MD LAB URINE ORDERABLES Fi nal Result Performing Organization Address [facility] Co de Phone Number [facility] Department [place] [address] * Check Sample (02/19/2025 9:01 PM CDT) ABO Rh A Positive [facility] HCLL OTHER 02/19/2025 9:01 PM CDT 02/19/2025 9:10 PM CDT us Magalie Archibald MD LAB BLOOD ORDERABLES Final Result Performing Organization Address [facility] Co de Phone Number [facility] Department [place] [address] [facility] * CT Body Outside Consult (02/19/2025 [...] images may or may not represent the [place] source data set and thus may contain [...] IMAGING STUDY STUDY INITIALLY PERFORMED: 02/19/2025 at [facility]. TYPE OF STUDY: Multiple CT images of [...] IMAGING STUDY STUDY INITIALLY PERFORMED: 02/19/2025 at [facility]. TYPE OF STUDY: Multiple CT images of [...] images may or may not represent the [place] source data set and thus may contain [...] MD LAB BLOOD ORDERABLES Fi nal Result [facility] [place] [address] * (ABNORMAL) Differential, auto (02/19/2025 8:20 PM CDT) Neutrophil abs 27.04(H) 1.50 - 6.50 K/cumm Imm gran abs 0.24(H) 0.00 - 0.10 K/cumm [facility] Lymphocyte abs 2.60 0.80 - 3.30 K/cumm [facility] Monocyte abs 1.73(H) 0.20 - 0.80 K/cumm [facility] Eosinophil abs 0.03 0.00 - 0.50 K/cumm [facility] Basophil abs 0.11(H) 0.00 - 0.10 K/cumm [facility] Neutrophil pct 85.2 % [facility] Comment: Interpretive Data Percent cell count reference ranges are not reported, since discordance with absolute values may lead to misinterpretation of CBC data. Current Interpretive Data was last revised on 2018. Imm gran pct 0.8 % [facility] Comment: Interpretive Data Percent cell count reference ranges are not reported, since discordance with absolute values may lead to misinterpretation of CBC data. Current Interpretive Data was last revised on 2018. Lymphocyte pct 8.2 % [facility] Comment: Interpretive Data Percent cell count reference ranges are not reported, since discordance with absolute values may lead to misinterpretation of CBC data. Current Interpretive Data was last revised on 2018. Monocyte pct 5.4 % [facility] Comment: Interpretive Data Percent cell count reference ranges are not reported, since discordance with absolute values may lead to misinterpretation of CBC data. Current Interpretive Data was last revised on 2018. Eosinophil pct 0.1 % [facility] Comment: Interpretive Data Percent cell count reference ranges are not reported, since discordance with absolute values may lead to misinterpretation of CBC data. Current Interpretive Data was last revised on 2018. Basophil pct 0.3 % [facility] Comment: Interpretive Data Percent cell count reference ranges are not reported, since discordance with absolute values may lead to misinterpretation of CBC data. Current Interpretive Data was last revised on 2018. Blood 02/19/2025 8:20 PM CDT 02/19/2025 8:36 PM CDT us Lauren Haro MD LAB BLOOD ORDERABLES nal Result [facility] [place] [address] * (ABNORMAL) CBC with auto differential (02/19/2025 8:20 PM CDT) WBC 31.75(H) 3.80 - 9.90 K/cumm Hgb 15.1 11.9 - 15.5 g/dL [facility] Hct 44.4 35.6 - 45.5 % [facility] Plt 339 150 - 400 K/cumm [facility] MPV 9.3 9.1 - 12.3 fL [facility] RBC 4.92 3.90 - 5.20 M/cumm [facility] MCV 90.2 81.3 - 96.4 fL [facility] MCH 30.7 27.1 - 33.3 pg [facility] MCHC 34.0 32.3 - 35.7 g/dL [facility] RDW CV 14.5 11.1 - 14.9 % [facility] RDW SD 47.8 35.7 - 48.1 fL [facility] NRBC abs 0.00 0.00 - 0.01 K/cumm [facility] Blood 02/19/2025 8:20 PM CDT 02/19/2025 8:36 PM CDT Lauren Haro MD LAB BLOOD ORDERABLES nal Result Performing Organization Address [facility] de Phone Number [facility] [place] [address] * aPTT (02/19/2025 8:20 PM CDT) aPTT [...] ORDERABLES Fi nal Result Performing Organization Address [facility] Co de Phone Number [facility] [place] [address] * Protime-INR (02/19/2025 8:20 PM CDT) PT 11.8 9.7 - 13.0 sec INR 1.09 0.90 - 1.20 [facility] Comment: Interpretive data Oral anticoagulant therapeutic ranges: Venous thromboembolism prophylaxis or treatment: 2.0-3.0 CARDIOLOGY Standard range: 2.0-3.0 High-intensity range: 2.5-3.5 Refer to indication-specific guidelines for appropriate target ranges for prosthetic heart valve replacement. Current interpretive data was last revised on 2019. Blood 02/19/2025 8:20 PM CDT 02/19/2025 8:39 PM CDT Lauren Haro MD LAB BLOOD ORDERABLES Fi nal Result Performing Organization Address [facility]/[place] [address] * Type and screen (02/19/2025 8:20 PM CDT) [place], indirect Negative ABO Rh A Positive [facility] Blood 02/19/2025 8:20 PM CDT 02/19/2025 8:33 PM CDT Narrative [facility] - 02/19/2025 9:26 PM CDT Has the patient had Daratumumab or Isatuximab in the past 6 months?->Unknown Lauren Haro MD LAB BLOOD BANK TEST ORD ERABLES Final Result Performing Organization Address [facility] [place] [address] * Creatine kinase (CK), total (02/19/2025 8:20 PM CDT) CK 61 30 - 200 Units/L Comment:Hemolyzed; result ma y be falsely elevated Blood 02/19/2025 8:20 PM CDT 02/19/2025 8:35 PM CDT Magalie Archibald MD LAB BLOOD ORDERABLES Final Result Performing Organization Address City/[facility] Co de Phone Number [facility] [place] [address] * (ABNORMAL) Comprehensive metabolic panel (02/19/2025 8:20 PM CDT) Sodium 138 135 - 145 mmol/L Potassium, pl 4.4 3.3 - 4.9 mmol/L [facility] Comment:Hemolyzed; Potassium value may be falsely [...] Glucose 137 70 - 199 mg/dL [facility] Comment: Interpretive Data Fasting glucose >/= [...] Calcium 9.1 8.5 - 10.3 mg/dL [facility] Bilirubin, total 0.4 0.1 - 1.2 mg/dL [facility] Protein, pl 7.9 6.5 - 8.5 g/dL [facility] Albumin 4.2 3.5 - 5.0 g/dL [facility] Alk phos 85 40 - 130 Units/L [facility] ALT 32 7 - 45 Units/L [facility] AST 47(H) 10 - 45 Units/L [facility] Comment:Hemolyzed; result ma y be falsely elevated Blood 02/19/2025 8:20 PM CDT 02/19/2025 8:35 PM CDT us Lauren Haro MD LAB BLOOD ORDERABLES Fi nal Result [facility] [place] [address] from Last 3 Months Insurance [employer] Directives For more information, please contact: [phone] * Full Code (Latest Code Status on File) Date Activated Date Inactivated Comments 02/20/2025 12:42 AM 02/27/2025 1:57 PM Care Teams Block Breaker Operator Relationship Specialty Start Date End Date Cody Roper DO [address] [place] [address] PCP - General Family Medicine 07/02/19 David Bell MD [address] [place] [address] Medical Oncologist/Yardage Tufting Machine Operator Hematology and Oncology 06/11/20
--- OUTSIDE RECORDS SUMMARY | 2025-04-10 18:37 | XMS_ITS | Encounter Summary ---
Author Organization [facility] Address 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
[2025-04-10 18:51] LABS: Erythrocyte Sedimentation Rate 3 mm/hr (0-20)
--- NOTE | 2025-04-10 19:00 | PC.NURSE ---
Pt states she is still in severe pain, EDP Beatriz Martell PA-C ,made aware
[2025-04-10] MEDS: diazePAM (*CRX) 5 MG TABLET PO (19:27)
[2025-04-10] MEDS: KETOROLAC 15 MG/ML VIAL (*BKC) IV PUSH (19:27)
[2025-04-10 19:28] VITALS: BP 152/88; PULSE 88; RESP 18; O2SAT 99
--- NOTE | 2025-04-10 21:15 | PC.NURSE ---
This RN to bedside for discharge. Patient upset we did not provide pain medicine. Per PA, patient has rx for oxycodone. Per patient, she cannot take it without stomach upset despite zofran. Per PA, patient seeing pain management. 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
== END 2025-04-10 21:18 | disposition home or self-care (01) ==
PROVIDERS: Emergency Provider Physician Assistant
DX: L03.113 Cellulitis of right upper limb (principal); E78.5 Hyperlipidemia, unspecified; I10 Essential (primary) hypertension; J45.909 Unspecified asthma, uncomplicated; F17.210 Nicotine dependence, cigarettes, uncomplicated
CPT/HCPCS: 36415; 73110; 80053; 85025; 85610; 85652; 85730; 86140; 93971; 96374; 99284; A9270; J1885

== ENCOUNTER 2025-06-08 17:38 | Emergency (ER) | payer BC, SELFPAY ==
--- NOTE | ~2025-06-08 | XR_ITS ---
CHEST RADIOGRAPH, PA AND LATERAL CLINICAL HISTORY: cp . COMPARISON: 11/03/2024 TECHNIQUE: PA and lateral views of the chest. FINDINGS The cardiomediastinal silhouette is unremarkable. The lungs are clear. IMPRESSION: No focal infiltrate or effusion. Reviewed, dictated and finalized at location A.
--- NOTE | 2025-06-08 17:39 | ECG_ITS ---
Test Date: 2025-06-08 17:56:55 Measurements Intervals [place] Rate: 81 P: 62 [place]: 152 QRS: 0 QRSD: 88 T: 42 QT: 336 QTc: 392 Interpretive Statements SINUS RHYTHM No previous ECG available for comparison Electronically Signed On 06-09-2025 16:33:40 CDT by Meghan Watts M.D.
--- OUTSIDE RECORDS SUMMARY | 2025-06-08 17:41 | XMS_ITS | Clinical Summary ---
Author Organization [facility] Address [address] [place] [address] Care Team Providers Care Laboratory Assistant Name Role Phone Judson Dino Emil Primary Care Provider [phone] David Bell MD Unavailable [phone] Danilo Dolan MD Unavailable [phone] Harvey Liriano MD Unavailable Unavailable Allergies Active [...] available 1 each 12/25/19 25 026 Active HYDROcodone-acetami nophen (NORCO) 5-325 MG tabletIndications:A cute Pain < 3 Day Supply Take 1 tablet by mouth every 6 (six) hours as needed for Pain. Indications: Acute Pain < 3 Day Supply 12 tablet 03/26/20 25 Active ondansetron (ZOFRAN-ODT) 4 MG disintegrating tablet Take 1 tablet (4 mg total) by mouth every 8 (eight) hours as needed for Nausea. 20 tablet 04/08/20 25 Active ondansetron (ZOFRAN-ODT) 4 MG disintegrating tablet Take 1 tablet (4 mg total) by mouth every 8 (eight) hours as needed for Nausea. 20 tablet 04/24/20 25 Active Active Problems Problem Noted Date Diagnosed Date Cervical radiculopathy 03/08/2023 Encounters Date Type Department Care Team Description 05/08/2025 10:05 AM CDT - 05/08/2025 10:11 AM CDT Emergency [facility] [place] [address] Jo Ann PA Wrist Pain Discharge Disposition: Home or Self Care (Routine Discharge) 05/08/2025 Travel 04/24/2025 7:53 AM CDT - 04/24/2025 11:04 AM CDT Emergency [facility] [place] [address] Sandra Shipman MD Abdominal Pain Discharge Disposition: Home or Self Care (Routine Discharge) 04/24/2025 Travel 04/08/2025 3:27 PM CDT - 04/08/2025 7:13 PM CDT Emergency [facility] [place] [address] Leo Gregg MD Arm Injury Discharge Disposition: Home or Self Care (Routine Discharge) 04/08/2025 Travel 03/26/2025 4:55 PM CDT - 03/26/2025 10:35 PM CDT Emergency [facility] [place] [address] Jax Rizzo MD Smith, Leta Bansal MD Wound Discharge Disposition: Home or Self Care (Routine Discharge) 03/26/2025 Travel from Last 3 Months Family History [...] Not Answered Alcohol Use Standard Drinks/Week Comments Not Currently [...] place to sleep or slept in a half-way (including now)? 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 TECHNICIAN Gender Identity Not on file Sexual Orientation Not on file Last Filed Vital Signs Vital Sign Reading Time Taken Comments Blood Pressure 169/102 05/08/2025 9:54 AM CDT Pulse 98 05/08/2025 9:54 AM CDT Temperature 36.8 C (98.3 F) 05/08/2025 9:54 AM CDT Respiratory Rate 18 05/08/2025 9:54 AM CDT Oxygen Saturation 99% 05/08/2025 9:54 AM CDT Inhaled Oxygen Concentration - - Weight 77.1 kg (170 lb) 05/08/2025 9:54 AM CDT Height 157.5 cm (5' 2) 05/08/2025 9:54 AM CDT Body Mass Index 31.09 05/08/2025 9:54 AM CDT Plan of Treatment Health Maintenance [...] transitions and discharge planning Lifestyle No Steve Solis RN Medical Devices Implanted Type Area Social Work Administrator Device Identifier Shelf Expiration Date Model / Serial / Lot Graft Bone I Factor 2.5cc Allograft Putty Syringe - [id number] Implanted:Qt y: 1 on 03/08/2023 by Danilo Dolan MD at [facility] Bone N/A: Spine Cervical [employer] [id number] 07/19/2025 700-025 / / [id number] Zavation Cage [id number] Implanted:Qt y: 1 on 03/08/2023 by Danilo Dolan MD at [facility] Cage N/A: Spine Cervical [id number] / / Description:At c6-7 Zavation [id number] Cage Implanted:Qt y: 1 on 03/08/2023 by Danilo Dolan MD at [facility] Cage N/A: Spine Cervical [id number] / / Description:At c5-6 Zavation 32mm Plate Implanted:Qt y: 1 on 03/08/2023 by Danilo Dolan MD at [facility] Plate N/A: Spine Cervical 30-0232 / / Zavation 4.0x12mm Vsd Screw Implanted:Qt y: 6 on 03/08/2023 by Danilo Dolan MD at [facility] Screw N/A: Spine Cervical 31-4012 / / Tissue Surgiflo 8ml - [id number] Implanted:Qt y: 1 on 03/08/2023 by Danilo Dolan MD at [facility] Sealant N/A: Spine Cervical [employer] 04/18/2024 [id number] / / [id number] Procedures Procedure Name Priority Date/Time Associated Diagnosis Comments CT ABD+PEL W CON STAT 04/24/2025 9:20 AM CDT HC URINALYSIS AUTO W/O MICRO STAT 04/24/2025 8:31 AM CDT LIPASE STAT 04/24/2025 8:29 AM CDT COMPREHENSIVE METABOLIC PANEL STAT 04/24/2025 8:29 AM CDT CBC W/DIFF AUTOMATED STAT 04/24/2025 8:29 AM CDT POCT URINE (BACK OFFICE) STAT 04/08/2025 3:50 PM CDT LACTIC ACID W REFLEX (SEPSIS) STAT 04/08/2025 3:50 PM CDT COMPREHENSIVE METABOLIC PANEL STAT 04/08/2025 3:50 PM CDT CBC W/DIFF AUTOMATED STAT 04/08/2025 3:50 PM CDT XR WRIST RT MIN 3V STAT 04/08/2025 2: [address] WRIST RT W CON STAT 03/26/2025 9:1 0 PM CDT MUSCULOSKELETAL ULTRASOUND Routine 03/26/2025 8:47 PM CDT C-REACTIVE PROTEIN STAT 03/26/2025 5: 23 PM CDT LACTIC ACID W REFLEX (SEPSIS) STAT 03/26/2025 5:23 PM CDT SED RATE, ERYTHROCYTE (ESR) STAT 03/26/2025 5:23 PM CDT COMPREHENSIVE METABOLIC PANEL STAT 03/26/2025 5:23 PM CDT CBC W/DIFF AUTOMATED STAT 03/26/2025 5:23 PM CDT XR HAND RT 3V STAT 03/26/2025 5:10 PM CDT from Last 3 Months Results * CT ABD+PEL W IV CON ONLY (04/24/2025 9:20 AM CDT) Anatomical Region Laterality Modality Abdomen Computed Tomogra phy 04/24/2025 9:39 AM CDT Impressions 04/24/2025 10:01 AM CDT =====IMPRESSION:===== 1. No definite etiology for history of abdominal pain and vomiting. 2. Possible subtle urothelial enhancement in the left renal pelvis and proximal ureter. Minimal left hydronephrosis is possible. Correlate clinically for possible infection or other abnormality in this area. Ordered By: SANDRA SHIPMAN Interpreted By: Raz Levin MD, 04/24/2025 9:39 AM Narrative 04/24/2025 10:01 AM CDT [address] [address] EXAMINATION: CT Abdomen and Pelvis with contrast EXAM DATE/TIME: 04/24/2025 9:01 AM REASON FOR EXAM: abd pain , vomiting COMPARISON: 01/18/2025 TECHNIQUE: Computed tomography of the abdomen, and pelvis was performed after the administration of 100 mL Isovue-370 contrast according to routine protocol without immediate complication. A dose lowering technique was used for this procedure, which may include, but is not limited to, dose reduction technique, automated exposure control, the use of iterative reconstruction, and ALARA (As Low As Reasonably Achievable) / Image Gently techniques. FINDINGS: No evidence of bowel dilatation to suggest obstruction is seen. The appendix is not definitely visualized. No secondary findings of acute appendicitis are noted. Enhancement of the urothelium in the left renal pelvis and ureter is suspected such as on image 69. This finding is subtle. The nephrograms appear symmetric. Bilateral minimal perinephric stranding is noted.. Minimal left hydronephrosis is possible. No evidence of left hydroureter is noted. The left kidney may be minimally atrophic. Multiple hypodensities in the kidneys are suggestive of cysts. Lung Bases: No pleural effusions or consolidations. Liver:Unremarkable. Gallbladder and Biliary system:Prior cholecystectomy is noted. Pancreas:Unremarkable. Spleen:No splenomegaly. Kidneys:As described above Ureters and bladder: As described above Adrenals:Normal. Bowel:Colonic and rectal stool is seen. No small bowel dilatation is seen.The stomach, duodenum, and viewed portions of the esophagus are unremarkable. Aorta and Retroperitoneum:Multiple subcentimeter lymph nodes are seen which are stable from prior study. Aorta is not aneurysmal. Pelvic Organs:The ovaries are symmetric and grossly unchanged from prior exam. No adjacent fluid or inflammatory changes are seen. The uterus shows possible small nabothian cysts. Bone/Musculoskeletal: No aggressive osseous lesions. Ascites: None Additional Findings: No ventral or inguinal hernia seen. Procedure Note Raz Levin MD - 04/24/[address] [address] EXAMINATION: CT Abdomen and Pelvis with contrast EXAM DATE/TIME: 04/24/2025 9:01 AM REASON FOR EXAM: abd pain , vomiting COMPARISON: 01/18/2025 TECHNIQUE: Computed tomography of the abdomen, and pelvis was performedafter the administration of 100 mL Isovue-370 contrast according toroutine protocol without immediate complication. A dose lowering techniquewas used for this procedure, which may include, but is not limited to,dose reduction technique, automated exposure control, the use of iterativereconstruction, and ALARA (As Low As Reasonably Achievable) / Image Gentlytechniques. FINDINGS: No evidence of bowel dilatation to suggest obstruction is seen.The appendix is not definitely visualized. No secondary findings of acuteappendicitis are noted. Enhancement of the urothelium in the left renal pelvis and ureter issuspected such as on image 69. This finding is subtle. The nephrogramsappear symmetric. Bilateral minimal perinephric stranding is noted..Minimal left hydronephrosis is possible. No evidence of left hydroureteris noted. The left kidney may be minimally atrophic. Multiplehypodensities in the kidneys are suggestive of cysts. Lung Bases: No pleural effusions or consolidations. Liver:Unremarkable. Gallbladder and Biliary system:Prior cholecystectomy is noted. Pancreas:Unremarkable. Spleen:No splenomegaly. Kidneys:As described above Ureters and bladder: As described above Adrenals:Normal. Bowel:Colonic and rectal stool is seen. No small bowel dilatation isseen.The stomach, duodenum, and viewed portions of the esophagus areunremarkable. Aorta and Retroperitoneum:Multiple subcentimeter lymph nodes are seenwhich are stable from prior study. Aorta is not aneurysmal. Pelvic Organs:The ovaries are symmetric and grossly unchanged from priorexam. No adjacent fluid or inflammatory changes are seen. The uterus showspossible small nabothian cysts. Bone/Musculoskeletal: No aggressive osseous lesions. Ascites: None Additional Findings: No ventral or inguinal hernia seen. =====IMPRESSION:===== 1. No definite etiology for history of abdominal pain and vomiting. 2. Possible subtle urothelial enhancement in the left renal pelvis andproximal ureter. Minimal left hydronephrosis is possible. Correlateclinically for possible infection or other abnormality in this area. Ordered By: SANDRA SHIPMAN Interpreted By: Raz Levin MD, 04/24/2025 9:39 AM Sandra Shipman MD CT Final Result * URINALYSIS (04/24/2025 8:31 AM CDT) SPECIMEN TYPE URINE CLEAN CATCH 04/24/2025 8:30 AM CDT [facility] COLOR (U) YELLOW 04/24/2025 8:47 AM CDT [facility] TRANSPARENCY CLEAR 04/24/2025 8:47 AM CDT [facility] SPECIFIC GRAVITY (U) 1.024 1.001 - 1.030 04/24/2025 8:47 AM CDT [facility] U PH 7.5 5.0 - 9.0 04/24/2025 8:47 AM CDT [facility] LEUKOCYTES (U) NEGATIVE NEGATIVE 04/24/2025 8:47 AM CDT [facility] NITRITES NEGATIVE NEGATIVE 04/24/2025 8:47 AM CDT [facility] PROTEIN RANDOM (U) NEGATIVE <30 MG/DL 04/24/2025 8:47 AM CDT [facility] GLUCOSE (U) NORMAL NORMAL MG/DL 04/24/2025 8:47 AM CDT [facility] KETONES MG/DL (U) NEGATIVE NEGATIVE MG/DL 04/24/2025 8:47 AM CDT [facility] UROBILINOGEN NORMAL NORMAL MG/DL 04/24/2025 8:47 AM CDT [facility] BILIRUBIN (U) NEGATIVE NEGATIVE MG/DL 04/24/2025 8:47 AM CDT [facility] BLOOD (U) NEGATIVE NEGATIVE 04/24/2025 8:47 AM CDT [facility] URINE SPECIMEN OBTAINED BY CLEAN CATCH PROCEDURE / Unknown 04/24/2025 8:31 AM CDT Sandra Shipman MD URINE ORDERABLES Final Result [facility] [address] [place] [address], [place] [phone] * (ABNORMAL) COMPREHENSIVE METABOLIC PANEL (04/24/2025 8:29 AM CDT) Only the most recent of3 resultswithin the time period is included. GLUCOSE 130(H) 70 - 99 MG/DL 04/24/2025 9:39 AM CDT [facility] BUN 8 7 - 18 MG/DL 04/24/2025 9:39 AM CDT [facility] CREATININE S/P/B 0.77 0.55 - 1.02 MG/DL 04/24/2025 9:39 AM T [facility] SODIUM S/P/B 135(L) 136 - 145 MMOL/L 04/24/2025 9:39 AM T [facility] POTASSIUM S/P/B 4.8 3.5 - 5.1 MMOL/L 04/24/2025 9:39 AM T [facility] CHLORIDE S/P/B 106 97 - 115 MMOL/L 04/24/2025 9:39 AM T [facility] CO2 24.3 21 - 32 MMOL/L 04/24/2025 9:39 AM T [facility] CALCIUM S/P/B 9.4 8.5 - 10.1 MG/DL 04/24/2025 9:39 AM T [facility] BILIRUBIN TOTAL S/P/B 0.6 0.2 - 1.2 MG/DL 04/24/2025 9:39 AM T [facility] Comment: THIS ASSAY IS NOT RECOMMENDED FOR PATIENTS UNDERGOING TREATMENT WITH ELTROMBOPAG DUE TO THE POTENTIAL FOR FALSELY ELEVATED RESULTS. TOTAL PROTEIN S/P/B 8.6(H) 6.4 - 8.2 G/DL 04/24/2025 9:39 AM T [facility] ALBUMIN S/P/B 4.1 3.4 - 5.0 G/DL 04/24/2025 9:39 AM T [facility] AST 31 15 - 37 U/L 04/24/2025 9:39 AM T [facility] ALT 60(H) 14 - 55 U/L 04/24/2025 9:39 AM T [facility] ALKALINE PHOSPHATASE S/P/B 104 50 - 136 U/L 04/24/2025 9:39 AM CDT [facility] ANION GAP 4.7 2 - 10 MMOL/L 04/24/2025 9:39 AM CDT [facility] BUN CREATININE RATIO 10.3 6 - 26 04/24/2025 9:39 AM CDT [facility] A/G RATIO 0.9(L) 1.0 - 2.0 RATIO 04/24/2025 9:39 AM CDT [facility] GFR ESTIMATE >90 >90 ML/MIN/1.7 3 M2 04/24/2025 9:39 AM CDT [facility] Comment: NOTE: eGFR is not calculated for patients <18 years of age or gender unknown. This is an estimated GFR calculation using the new CKD EPI creatinine equation without race and so does not require a correction factor for race. This estimated GFR should not be used for calculating drug doses. 04/24/2025 8:29 AM CDT Sandra Shipman MD LABORATORY Final Result [facility] [address] [place] [address], [place] [phone] * (ABNORMAL) CBC W/DIFF AUTOMATED (04/24/2025 8:29 AM CDT) Only the most recent of3 resultswithin the time period is included. WBC 16.11(H) 4.5 - 11.0 x10'3/uL 04/24/2025 8:51 AM CDT [facility] RBC 5.55(H) 4.20 - 5.40 x10'6/uL 04/24/2025 8:51 AM CDT [facility] HGB 16.6(H) 12.0 - 16.0 G/DL 04/24/2025 8:51 AM CDT [facility] HCT 50.6(H) 38.0 - 48.0 % 04/24/2025 8:51 AM CDT [facility] MCV 91.2 81.0 - 99.0 FL 04/24/2025 8:51 AM CDT [facility] MCH 29.9 27.0 - 31.0 PG 04/24/2025 8:51 AM CDT [facility] MCHC 32.8 32.0 - 36.0 G/DL 04/24/2025 8:51 AM CDT [facility] RDW 14.2 11.5 - 14.5 % 04/24/2025 8:51 AM CDT [facility] PLT 306 130 - 400 x10'3/uL 04/24/2025 8:51 AM CDT [facility] MPV 9.4 9.3 - 12.2 FL 04/24/2025 8:51 AM CDT [facility] DIFFERENTIAL TYPE AUTOMATED DIFFERENTIAL 04/24/2025 8:51 AM CDT [facility] NEUTROPHILS % 64.6 % 04/24/2025 8:51 AM CDT [facility] LYMPHOCYTES % 23.6 % 04/24/2025 8:51 AM CDT [facility] MONOCYTES % 8.1 % 04/24/2025 8:51 AM CDT [facility] EOSINOPHILS 2.0 % 04/24/2025 8:51 AM CDT [facility] BASOPHILS 0.6 % 04/24/2025 8:51 AM CDT [facility] IMMATURE GRANS % 1.1 % 04/24/20 8:51 AM CDT [facility] ABS. NEUTROPHILS 10.40(H) 1.80 - 7.70 x10'3/uL 04/24/2025 8:51 AM CDT [facility] ABS. LYMPHOCYTES 3.81 1.00 - 4.80 x10'3/uL 04/24/2025 8:51 AM CDT [facility] ABS. MONOCYTES 1.31(H) 0.24 - 0.86 x10'3/uL 04/24/2025 8:51 AM CDT [facility] ABS. EOSINOPHILS 0.32 0.04 - 0.36 x10'3/uL 04/24/2025 8:51 AM CDT [facility] ABS. BASOPHILS 0.10(H) 0.01 - 0.08 x10'3/uL 04/24/2025 8:51 AM CDT [facility] ABS. IMMATURE GRANULOCYTES 0.17 0.00 - 0.49 x10'3/uL 04/24/2025 8:51 AM CDT [facility] 04/24/2025 8:29 AM CDT Baselazaro Shipman MD LABORATORY Final Result [facility] [address] [place] [address], [place] [phone] * LIPASE (04/24/2025 8:29 AM CDT) LIPASE 42 13 - 75 UNITS/L 04/24/2025 9:39 AM CDT [facility] 04/24/2025 8:29 AM CDT Baselazaro Shipman MD LABORATORY Final Result [facility] [address] [place] [id number], * (ABNORMAL) LACTIC ACID W REFLEX (SEPSIS) (04/08/2025 3:50 PM CDT) Only the most recent of2 resultswithin the time period is included. LACTIC ACID VENOUS 2.2(H) 0.4 - 2.0 MMOL/L 04/08/2025 4:32 PM CDT [facility] Comment: Critical Result(s) Called at: 16:31:19 on 04/08/2025 by: JARRED BEGUM to and read back by: SILVANO WREN 04/08/2025 3:50 PM CDT [place] [facility] Final Result [facility] [address] [place] [address], * POCT urine (04/08/2025 3:50 PM CDT) Pathologist [facility] URINE HCG TEST NEGATIVE Internal Control: VALID 04/08/2025 3:50 PM CDT [place] POINT OF CARE TEST ORDERABLE S Final Result * XR WRIST RT MIN 3V (04/08/2025 2:25 PM CDT) Anatomical Region Laterality Modality Wrist Radiographic Sangeeta ging 04/08/2025 2:51 PM CDT Impressions 04/08/2025 2:52 PM CDT IMPRESSION: 1) No significant radiographic abnormality. Ordered By: RICHMOND WILKERSON Interpreted By: Tomás De Leon MD, 04/08/2025 2:51 PM Narrative 04/08/2025 2:52 PM CDT [facility] [address] [place], [place] [address] Examination: XR WRIST RT MIN 3V Exam time: 04/08/2025 2:24 PM Clinical history: Trauma, recent surgery Comparison: 03/26/2025 Technique: AP, lateral and oblique right wrist Findings: No acute soft tissue abnormality. No evidence of soft tissue gas or radiopaque foreign body. No evidence of fracture or dislocation. Joint spaces are well-maintained. Procedure Note Tomás De Leon MD - 04/08/2025 [facility] [address] [place], [place] [address] Examination: XR WRIST RT MIN 3V Exam time: 04/08/2025 2:24 PM Clinical history: Trauma, recent surgery Comparison: 03/26/2025 Technique: AP, lateral and oblique right wrist Findings: No acute soft tissue abnormality. No evidence of soft tissue gasor radiopaque foreign body. No evidence of fracture or dislocation. Jointspaces are well-maintained. IMPRESSION: 1) No significant radiographic abnormality. Ordered By: RICHMOND WILKERSON Interpreted By: Tomás De Leon MD, 04/08/2025 2:[address] [place] [address] GENERAL IMAGING Final Result * CT WRIST RT W CON (03/26/2025 9:10 PM CDT) Anatomical Region Laterality Modality Wrist Computed Tomogra phy 03/26/2025 9:33 PM CDT Impressions 03/26/2025 9:44 PM CDT IMPRESSION: Multifocal superficial soft tissue abnormalities with no identifiable abscess. Referred By: Interpreted By: Jaden Moore MD, 03/26/2025 9:33 PM Narrative 03/26/2025 9:44 PM CDT [address] [address] EXAM: CT WRIST RT W CON DATE: 03/26/2025 COMPARISON: None. X-ray from earlier today. INDICATION: Patient had a tiny weeks ago. Pain and redness in the right arm and hand. TECHNIQUE: Postcontrast imaging with 100 cc intravenous Isovue-370. Imaging performed from the distal forearm through about the metacarpal phalangeal joint level. A dose lowering technique was used for this procedure, which may include, but is not limited to, dose reduction technique, automated exposure control, iterative reconstruction, ALARA (As Low As Reasonably Achievable), or Image Gently techniques. FINDINGS: Anterior laterally, there is some mild skin thickening and mild diffuse increased density in the adjacent subcutaneous fat. More distally, nonspecific soft tissue density anteriorly also involves the skin and adjacent subcutaneous fat. There are mixed lobules of fat within this soft tissue. Somewhat linear soft tissue density traverses the anteromedial fat in the region of the distal carpal row. Any or all of these findings could be associated with regions of prior surgery. Potential inflammation or diffuse infection. There is no identifiable abscess with this exam. Normal bone density and joint alignment. Procedure Note Jaden Moore MD - 03/26/[address] [address] EXAM: CT WRIST RT W CON DATE: 03/26/2025 COMPARISON: None. X-ray from earlier today. INDICATION: Patient had a tiny weeks ago. Pain and redness in the rightarm and hand. TECHNIQUE: Postcontrast imaging with 100 cc intravenous Isovue-370.Imaging performed from the distal forearm through about the metacarpalphalangeal joint level. A dose lowering technique was used for this procedure, which may include,but is not limited to, dose reduction technique, automated exposurecontrol, iterative reconstruction, ALARA (As Low As ReasonablyAchievable), or Image Gently techniques. FINDINGS: Anterior laterally, there is some mild skin thickening and milddiffuse increased density in the adjacent subcutaneous fat. Moredistally, nonspecific soft tissue density anteriorly also involves theskin and adjacent subcutaneous fat. There are mixed lobules of fat withinthis soft tissue. Somewhat linear soft tissue density traverses theanteromedial fat in the region of the distal carpal row. Any or all ofthese findings could be associated with regions of prior surgery.Potential inflammation or diffuse infection. There is no identifiableabscess with this exam. Normal bone density and joint alignment. IMPRESSION: Multifocal superficial soft tissue abnormalities with noidentifiable abscess. Referred By: Interpreted By: Jaden Moore MD, 03/26/2025 9:33 PM Jax Rizzo MD CT Final Result * Musculoskeletal Ultrasound (03/26/2025 8:47 PM CDT) Narrative Jax Rizzo MD - 03/26/2025 8:47 PM CDT Jax Rizzo MD 03/26/2025 9:01 PM Musculoskeletal Ultrasound Date/Time: 03/26/2025 8:47 PM Performed by: Jax Rizzo MD Authorized by: Jax Rizzo MD Procedure details: Indications: abscess Indications comment: Ultrasound done of volar left wrist over surgical incision Transverse view: Visualized Comments: Linear probe used to assess for abscess, fluid collections, cobblestoning is indication of infection left wrist. No discrete abscess noted however there were small subcutaneous fluid collections. Mild soft tissue edema. Jax Rizzo MD PROCEDURE/MINOR SURGICAL ORDERAB LES Final Result * (ABNORMAL) SED RATE, ERYTHROCYTE (ESR) (03/26/2025 5:23 PM CDT) ESR 44(H) <20 MM/HR 03/26/2025 6:13 PM CDT [facility] Comment:Testing performed on [employer] iSED. 03/26/2025 5:23 PM CDT [place] [facility] Final Result [facility] [address] [place] [address], [place] [phone] * C-REACTIVE PROTEIN (03/26/2025 5:23 PM CDT) C-REACTIVE PROTEIN <0.29 <0.29 mg/dL 03/26/2025 6:05 PM CDT [facility] 03/26/2025 5:23 PM CDT [facility] Final Result [facility] [address] [place] [address], * XR HAND RT 3V (03/26/2025 5:10 PM CDT) Anatomical Region Laterality Modality Hand Radiographic Sangeeta ging 03/26/2025 5:31 PM CDT Impressions 03/26/2025 5:32 PM CDT IMPRESSION: No radiographic abnormality. Referred By: Interpreted By: Denny Márquez MD, 03/26/2025 5:31 PM Narrative 03/26/2025 5:32 PM CDT [facility] [address] [place], [place] [address] Examination: XR HAND RT 3V Exam time: 03/26/2025 5:02 PM Clinical history: Pt comes in with complaints of pain and redness in her right arm and hand. Pt had a faciotomy a few weeks ago at [place] and she is following with the surgeon who put her on antibiotics. Comparison: No prior exam Technique: PA, oblique, and lateral views right hand Findings: Right distal radius and ulna appear unremarkable. Carpal bone relationships and appearances appear normal. Metacarpals and phalanges appear normal. No evidence of subluxation or dislocation. No evidence of soft tissue gas collections or abnormal soft tissue densities. Procedure Note Denny Márquez MD - 03/26/[address] [address] Examination: XR HAND RT 3V Exam time: 03/26/2025 5:02 PM Clinical history: Pt comes in with complaints of pain and redness in her right arm and hand.Pt had a faciotomy a few weeks ago at [place] and she is following with the who put her on antibiotics. Comparison: No prior exam Technique: PA, oblique, and lateral views right hand Findings: Right distal radius and ulna appear unremarkable. Carpal bonerelationships and appearances appear normal. Metacarpals and phalangesappear normal. No evidence of subluxation or dislocation. No evidence ofsoft tissue gas collections or abnormal soft tissue densities. IMPRESSION: No radiographic abnormality. Referred By: Interpreted By: Denny Márquez MD, 03/26/2025 5:31 PM [facility] Final Result from Last 3 Months Insurance [facility] Advance Directives * Full Code (Latest Code Status on File) Date Activated Date Inactivated Comments 03/09/2023 12:43 AM 03/09/2023 6:15 PM Care Teams Laboratory Assistant Relationship Specialty Start Date End Date Dino Roper DO [address] [place] [address] PCP - General FAMILY PRACTICE 01/23/23 David Bell MD [address] [place] [address] Referring Physician MEDICAL ONCOLOGY 03/01/23 Danilo Dolan MD [address] [facility] [address] [place] [address] NEUROLOGICAL SURGERY 03/01/23 Harvey Liriano MD [address] [facility] [address] [place] [address] CARDIOVASCULAR DISEASE 03/07/23
[2025-06-08 17:50] VITALS: BP 181/99; PULSE 85; RESP 20; O2SAT 100
[2025-06-08 20:31] LABS: Hematocrit 50.9 % (37.0-47.0); Hemoglobin 16.7 g/dL (12.0-15.0); Mean Corpuscular HGB Conc 32.8 g/dl (32-36); Mean Corpuscular Hemoglobin 29.7 pg (26-34); Mean Corpuscular Volume 90.6 fl (80-100); Platelet Count Result 332 k/mm3 (150-375); Red Blood Count 5.62 M/mm3 (4.2-5.4); White Blood Count 22.5 K/mm3 (4.5-10.0)
[2025-06-08 20:43] LABS: Add Urine Microscopic? YES; Appearance Urine Clear (Clear); Glucose Urine UA Negative (Negative); Leukocyte Esterase Ur Trace LEU/UL (Negative); Nitrate Urine Negative (Negative); Non Pathogenic Casts 0-2; Specific Grav Ur 1.021 (1.001-1.035)
--- NOTE | 2025-06-08 20:49 | PC.NURSE ---
Pt. let this RN know that she is leaving the ER. GCS 15
[2025-06-08 20:54] LABS: Basophils Absolute Manual 0.22 K/mm3 (0.0-0.1); Basophils Percent Manual 1 % (0-1); Eosinophils Absolute Manual 0.45 K/mm3 (0.02-0.50); Eosinophils Percent Manual 2 % (0-4); Lymphocytes Absolute Manual 4.72 K/mm3 (1.1-4.5); Lymphocytes Percent Manual 21.0 % (18-44); Monocytes Absolute Manual 1.35 K/mm3 (0.1-0.90); Monocytes Percent Manual 6 % (3-9); Neutrophils Percent Manual 70 % (46-73); Schistocytes None Seen; Total Cells Counted 100
[2025-06-08 20:55] LABS: Anisocytosis 2+
[2025-06-08 21:09] LABS: Band Neutrophils Percent 0 % (0-6); Neutrophils Absolute Manual 15.75 K/mm3 (1.3-6.7)
--- OUTSIDE RECORDS SUMMARY | 2025-06-08 21:22 | XMS_ITS | Clinical Summary ---
Author Organization [facility] Address [address] [place] [address] Care Team Providers Care Photogrammetric Surveyor Name Role Phone Judson Dino Emil Primary Care Provider David Bell MD Unavailable [phone] Danilo Dolan MD Unavailable [phone] Harvey Liriano MD Unavailable Unavailable Allergies Active [...] CDT - 05/08/2025 10:11 AM CDT Emergency [facility] [place] [address] Jo Ann PA Wrist Pain Discharge Disposition: Home or Self Care (Routine Discharge) 05/08/2025 Travel 04/24/2025 7:53 AM CDT - 04/24/2025 11:04 AM CDT Emergency [facility] [place] [address] Sandra Shipman MD Abdominal Pain Discharge Disposition: Home or Self Care (Routine Discharge) 04/24/2025 Travel 04/08/2025 3:27 PM CDT - 04/08/2025 7:13 PM CDT Emergency [facility] [place] [address] Leo Gregg MD Arm Injury Discharge Disposition: Home or Self Care (Routine Discharge) 04/08/2025 Travel 03/26/2025 4:55 PM CDT - 03/26/2025 10:35 PM CDT Emergency [facility] [place] [address] Jax Rizzo MD Smith, Leta Bansal MD [...] place to sleep or slept in a custodial (including now)? 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 Gender Identity Not on file Sexual Orientation [...] Years) (1 of 2 - PCV) 1998 HPV Vaccines (1 - 3-dose SCD M series) 2006 Cervical Cancer Screening Pa p with HPV Testing (Age 30 to 64) Every 5 Years 2009 Cervical Cancer Screening with HPV 2009 Mammogram Screening 2019 COVID-19 Vaccine (2 - 2023-2 5 season) 2024 06/14/2021 Meningococcal B Vaccine Aged Out No l [...] Solis RN Medical Devices Implanted Type Area Dress Shoe Inspector Device Identifier Shelf Expiration Date Model / Serial / Lot Graft Bone I Factor 2.5cc Allograft Putty Syringe - [id number] Implanted:Qt y: 1 on 03/08/2023 by Danilo Dolan MD at [facility] Bone N/A: Spine Cervical [employer] [id number] 07/19/2025 700-025 / / [id number] Zavation Cage [id number] Implanted:Qt y: 1 on 03/08/2023 by Danilo Dolan MD at [facility] Cage N/A: Spine Cervical 20-0607 / / Description:At c6-7 Zavation [id number] Cage Implanted:Qt y: 1 on 03/08/2023 by Danilo Dolan MD at [facility] Cage N/A: Spine Cervical 20-0606 / / Description:At c5-6 Zavation 32mm Plate Implanted:Qt y: 1 on 03/08/2023 by Danilo Dolan MD at [facility] Plate N/A: Spine Cervical 30-0232 / / Zavation 4.0x12mm Vsd Screw Implanted:Qt y: 6 on 03/08/2023 by Danilo Dolan MD at [facility] Screw N/A: Spine Cervical 31-4012 / / Tissue Surgiflo 8ml - [id number] Implanted:Qt y: 1 on 03/08/2023 by Danilo Dolan MD at [facility] Sealant N/A: Spine Cervical [employer] 04/18/2024 [id number] / / [id number] Procedures Procedure Name Priority Date/Time Associated Diagnosis [...] 9:39 AM Narrative 04/24/2025 10:01 AM CDT [address] [address] EXAMINATION: CT Abdomen and Pelvis with contrast [...] Procedure Note Raz Levin MD - 04/24/[address] [address] EXAMINATION: CT Abdomen and Pelvis with contrast [...] URINE CLEAN CATCH 04/24/2025 8:30 AM CDT [facility] COLOR (U) YELLOW 04/24/2025 8:47 AM CDT [facility] TRANSPARENCY CLEAR 04/24/2025 8:47 AM CDT [facility] SPECIFIC GRAVITY (U) 1.024 1.001 - 1.030 04/24/2025 8:47 AM CDT [facility] U PH 7.5 5.0 - 9.0 04/24/2025 8:47 AM CDT [facility] LEUKOCYTES (U) NEGATIVE NEGATIVE 04/24/2025 8:47 AM CDT [facility] NITRITES NEGATIVE NEGATIVE 04/24/2025 8:47 AM CDT [facility] PROTEIN RANDOM (U) NEGATIVE <30 MG/DL 04/24/2025 8:47 AM CDT [facility] GLUCOSE (U) NORMAL NORMAL MG/DL 04/24/2025 8:47 AM CDT [facility] KETONES MG/DL (U) NEGATIVE NEGATIVE MG/DL 04/24/2025 8:47 AM CDT [facility] UROBILINOGEN NORMAL NORMAL MG/DL 04/24/2025 8:47 AM CDT [facility] BILIRUBIN (U) NEGATIVE NEGATIVE MG/DL 04/24/2025 8:47 AM CDT [facility] BLOOD (U) NEGATIVE NEGATIVE 04/24/2025 8:47 AM CDT [facility] URINE SPECIMEN OBTAINED BY CLEAN CATCH PROCEDURE / Unknown 04/24/2025 8:31 AM CDT Sandra Shipman MD URINE ORDERABLES Final Result [facility] [address] [place] [address], [place] [phone] * (ABNORMAL) COMPREHENSIVE METABOLIC PANEL (04/24/2025 8:29 AM CDT) Only the most recent of3 resultswithin the time period is included. GLUCOSE 130(H) 70 - 99 MG/DL 04/24/2025 9:39 AM CDT [facility] BUN 8 7 - 18 MG/DL 04/24/2025 9:39 AM CDT [facility] CREATININE S/P/B 0.77 0.55 - 1.02 MG/DL 04/24/2025 9:39 AM T [facility] SODIUM S/P/B 135(L) 136 - 145 MMOL/L 04/24/2025 9:39 AM T [facility] POTASSIUM S/P/B 4.8 3.5 - 5.1 MMOL/L 04/24/2025 9:39 AM CDT [facility] CHLORIDE S/P/B 106 97 - 115 MMOL/L 04/24/2025 9:39 AM T [facility] CO2 24.3 21 - 32 MMOL/L 04/24/2025 9:39 AM T [facility] CALCIUM S/P/B 9.4 8.5 - 10.1 MG/DL 04/24/2025 9:39 AM T [facility] BILIRUBIN TOTAL S/P/B 0.6 0.2 - 1.2 MG/DL 04/24/2025 9:39 AM T [facility] Comment: THIS ASSAY IS NOT RECOMMENDED FOR PATIENTS UNDERGOING TREATMENT WITH ELTROMBOPAG DUE TO THE POTENTIAL FOR FALSELY ELEVATED RESULTS. TOTAL PROTEIN S/P/B 8.6(H) 6.4 - 8.2 G/DL 04/24/2025 9:39 AM T [facility] ALBUMIN S/P/B 4.1 3.4 - 5.0 G/DL 04/24/2025 9:39 AM CDT [facility] AST 31 15 - 37 U/L 04/24/2025 9:39 AM T [facility] ALT 60(H) 14 - 55 U/L 04/24/2025 9:39 AM T [facility] ALKALINE PHOSPHATASE S/P/B 104 50 - 136 U/L 04/24/2025 9:39 AM CDT [facility] ANION GAP 4.7 2 - 10 MMOL/L 04/24/2025 9:39 AM CDT [facility] BUN CREATININE RATIO 10.3 6 - 26 04/24/2025 9:39 AM CDT [facility] A/G RATIO 0.9(L) 1.0 - 2.0 RATIO 04/24/2025 9:39 AM CDT [facility] GFR ESTIMATE >90 >90 ML/MIN/1.7 3 M2 04/24/2025 9:39 AM CDT [facility] Comment: NOTE: eGFR is not calculated for patients <18 years of age or gender unknown. This is an estimated GFR calculation using the new CKD EPI creatinine equation without race and so does not require a correction factor for race. This estimated GFR should not be used for calculating drug doses. 04/24/2025 8:29 AM CDT Sandra Shipman MD LABORATORY Final Result [facility] [address] [place] [address], [place] [phone] * (ABNORMAL) CBC W/DIFF AUTOMATED (04/24/2025 8:29 AM CDT) Only the most recent of3 resultswithin the time period is included. WBC 16.11(H) 4.5 - 11.0 x10'3/uL 04/24/2025 8:51 AM CDT [facility] RBC 5.55(H) 4.20 - 5.40 x10'6/uL 04/24/2025 8:51 AM CDT [facility] HGB 16.6(H) 12.0 - 16.0 G/DL 04/24/2025 8:51 AM CDT [facility] HCT 50.6(H) 38.0 - 48.0 % 04/24/2025 8:51 AM CDT [facility] MCV 91.2 81.0 - 99.0 FL 04/24/2025 8:51 AM CDT [facility] MCH 29.9 27.0 - 31.0 PG 04/24/2025 8:51 AM CDT [facility] MCHC 32.8 32.0 - 36.0 G/DL 04/24/2025 8:51 AM CDT [facility] RDW 14.2 11.5 - 14.5 % 04/24/2025 8:51 AM CDT [facility] PLT 306 130 - 400 x10'3/uL 04/24/2025 8:51 AM CDT [facility] MPV 9.4 9.3 - 12.2 FL 04/24/2025 8:51 AM CDT [facility] DIFFERENTIAL TYPE AUTOMATED DIFFERENTIAL 04/24/2025 8:51 AM CDT [facility] NEUTROPHILS % 64.6 % 04/24/2025 8:51 AM CDT [facility] LYMPHOCYTES % 23.6 % 04/24/2025 8:51 AM CDT [facility] MONOCYTES % 8.1 % 04/24/2025 8:51 AM CDT [facility] EOSINOPHILS 2.0 % 04/24/2025 8:51 AM CDT [facility] BASOPHILS 0.6 % 04/24/2025 8:51 AM CDT [facility] IMMATURE GRANS % 1.1 % 04/24/20 8:51 AM CDT [facility] ABS. NEUTROPHILS 10.40(H) 1.80 - 7.70 x10'3/uL 04/24/2025 8:51 AM CDT [facility] ABS. LYMPHOCYTES 3.81 1.00 - 4.80 x10'3/uL 04/24/2025 8:51 AM CDT [facility] ABS. MONOCYTES 1.31(H) 0.24 - 0.86 x10'3/uL 04/24/2025 8:51 AM CDT [facility] ABS. EOSINOPHILS 0.32 0.04 - 0.36 x10'3/uL 04/24/2025 8:51 AM CDT [facility] ABS. BASOPHILS 0.10(H) 0.01 - 0.08 x10'3/uL 04/24/2025 8:51 AM CDT [facility] ABS. IMMATURE GRANULOCYTES 0.17 0.00 - 0.49 x10'3/uL 04/24/2025 8:51 AM CDT [facility] 04/24/2025 8:29 AM CDT Sandra Shipman MD LABORATORY Final Result [facility] [address] [place], [place] [address], [place] [phone] * LIPASE (04/24/2025 8:29 AM CDT) LIPASE 42 13 - 75 UNITS/L 04/24/2025 9:39 AM CDT [facility] 04/24/2025 8:29 AM CDT Sandra Shipman MD LABORATORY Final Result [facility] [address] [place] [address], [place] [phone] * (ABNORMAL) LACTIC ACID W REFLEX (SEPSIS) (04/08/2025 3:50 PM CDT) Only the most recent of2 resultswithin the time period is included. LACTIC ACID VENOUS 2.2(H) 0.4 - 2.0 MMOL/L 04/08/2025 4:32 PM CDT [facility] Comment: Critical Result(s) Called at: 16:31:19 on 04/08/2025 by: JARRED BEGUM to and read back by: SILVANO WREN 04/08/2025 3:50 PM CDT [place] [facility] Final Result [facility] [address] [place] [address], [place] [phone] * POCT urine (04/08/2025 3:50 PM CDT) URINE HCG TEST NEGATIVE Internal Control: VALID [...] 2:51 PM Narrative 04/08/2025 2:52 PM CDT [facility] [address] [place], [place] [address] Examination: XR WRIST RT MIN 3V Exam time: 04/08/2025 2:24 PM Clinical history: Trauma, recent surgery Comparison: 03/26/2025 Technique: AP, lateral and oblique right wrist Findings: No acute soft tissue abnormality. No evidence of soft tissue gas or radiopaque foreign body. No evidence of fracture or dislocation. Joint spaces are well-maintained. Procedure Note Tomás De Leon MD - 04/08/2025 [facility] [address] [place], [place] [address] Examination: XR WRIST RT MIN 3V Exam [...] Leon MD, 04/08/2025 2:51 PM [place] [facility] Final Result * CT WRIST RT W CON (03/26/2025 9:10 PM CDT) Anatomical Region Laterality Modality Wrist Computed Tomogra phy 03/26/2025 9:33 PM CDT Impressions 03/26/2025 9:44 PM CDT IMPRESSION: Multifocal superficial soft tissue abnormalities with no identifiable abscess. Referred By: Interpreted By: Jaden Moore MD, 03/26/2025 9:33 PM Narrative 03/26/2025 9:44 PM CDT [address] [address] EXAM: CT WRIST RT W CON DATE: [...] Procedure Note Jaden Moore MD - 03/26/[address] [address] EXAM: CT WRIST RT W CON DATE: [...] 44(H) <20 MM/HR 03/26/2025 6:13 PM CDT [facility] Comment:Testing performed on [employer] iSED. 03/26/2025 5:23 PM CDT [facility] Final Result [facility] [address] [place] [address], [place] [phone] * C-REACTIVE PROTEIN (03/26/2025 5:23 PM CDT) C-REACTIVE PROTEIN <0.29 <0.29 mg/dL 03/26/2025 6:05 PM CDT [facility] 03/26/2025 5:23 PM CDT [facility] Final Result [facility] [address] [place] [address], * XR HAND RT 3V (03/26/2025 5:10 PM CDT) Anatomical Region Laterality Modality Hand Radiographic Sangeeta ging 03/26/2025 5:31 PM CDT Impressions 03/26/2025 5:32 PM CDT IMPRESSION: No radiographic abnormality. Referred By: Interpreted By: Denny Márquez MD, 03/26/2025 5:31 PM Narrative 03/26/2025 5:32 PM CDT [facility] [address] [place], [place] [address] Examination: XR HAND RT 3V Exam time: 03/26/2025 5:02 PM Clinical history: Pt comes in with complaints of pain and redness in her right arm and hand. Pt had a faciotomy a few weeks ago at [facility] and she is following with the surgeon [...] Procedure Note Denny Márquez MD - 03/26/[address] [address] Examination: XR HAND RT 3V Exam time: 03/26/2025 5:02 PM Clinical history: Pt comes in with complaints of pain and redness in her right arm and hand.Pt had a faciotomy a few weeks ago at [facility] and she is following with the who [...] By: Denny Márquez MD, 03/26/2025 5:31 PM [place] [facility] Final Result from Last 3 Months Insurance [employer] [address] Advance Directives * Full Code (Latest Code Status on File) Date Activated Date Inactivated Comments 03/09/2023 12:43 AM 03/09/2023 6:15 PM Care Teams Photogrammetric Surveyor Relationship Specialty Start Date End Date Dino Roper DO [address] [place] [address] PCP - General FAMILY PRACTICE 01/23/23 David Bell MD [address] [place] [address] Referring Physician MEDICAL ONCOLOGY 03/01/23 Danilo Dolan MD [address] [facility] [address] [place] [address] NEUROLOGICAL SURGERY 03/01/23 Harvey Liriano MD [address] [facility] [address] [place] [address] CARDIOVASCULAR DISEASE 03/07/23
--- OUTSIDE RECORDS SUMMARY | 2025-06-08 21:22 | XMS_ITS | Clinical Summary ---
Author Organization [facility] Address [address] [place] [address] [place] [address] Care Team Providers Care Friction Paint Machine Tender Name Role Phone Unavailable Primary Care Provider Unavailabl e Encounters Date Type Department Care Team Description 06/03/2025 External Device Data [facility] Provider, Abstract 06/02/2025 External Device Data [facility] Provider, Abstract 05/05/2025 External Device Data [facility] Provider, Abstract 04/21/2025 External Device Data [facility] Provider, Abstract 04/09/2025 External Device Data [facility] Provider, Abstract 04/08/2025 External Device Data [facility] Provider, Abstract 04/07/2025 External Device Data [facility] Provider, Abstract from Last 3 Months Social History Tobacco Use Types Packs/Day Years Used Date Smoking Tobacco: Never Assessed Comments Unknown Sex and Gender Information Value Date Recorded Sex Assigned at Not on file 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 Gender Identity Not on file Sexual Orientation Not on file Plan of Treatment Health Maintenance Due Date Last Done Comments Pre-Diabetes and Diabetes Screening 1979 HPV VACCINES (1 - 3-dose series) 1994 DTAP/TDAP/TD VACCINES (1 - Tdap) 1998 HEPATITIS B VACCINES (1 of 3 - 19+ 3-dose series) 1998 HPV/Cotest (21-29) 2000 CERVICAL CANCER SCREENING 2009 HPV/Cotest (30-65) 2009 PAP SMEAR 2009 BREAST CANCER SCREENING 12/07/2022 12/07/19, 12/07/2021, 10/15/2019, Additional history exists COLORECTAL SCREENING 2024 Colorectal Cancer Screening 2024 FIT-DNA Q 3 years 2024 FIT/FOBT Q 1 year 2024 Flex Sig/CT Colonography Q 5 years 2024 INFLUENZA VACCINE (#1) 2025 Insurance [facility] [employer] CHOICE
== END 2025-06-08 21:15 | disposition left against medical advice (07) ==
PROVIDERS: Emergency Provider Student in an Organized Health Care Education/Training Program
DX: R07.9 Chest pain, unspecified (principal)
CPT/HCPCS: 36415; 71046; 81001; 85025; 93005; 99199

== ENCOUNTER 2025-07-14 00:58 | Day surgery (SDC) | payer BC, SELFPAY ==
--- NOTE | 2025-05-07 10:42 | PC.NURSE ---
We have attempted to reach this patient regarding her appt. scheduled 05/19/25 6 times with messages left on vm with no response from patient. Portal message sent regarding contacting us and that if we do not hear from her by 05/08/25 3pm regarding appt. she will be canceled and will need to call office to get rescheduled. I have also attempted number listed as spouse with message left.
[2025-07-01 09:13] VITALS: BMI 31.4
--- OUTSIDE RECORDS SUMMARY | 2025-07-14 01:01 | XMS_ITS | Clinical Summary ---
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
--- OUTSIDE RECORDS SUMMARY | 2025-07-14 01:01 | XMS_ITS | Clinical Summary ---
Author Organization [facility] Address [address] [place] [address] Care Team Providers Care Baffle Installer Name Role Phone Judson Dino Emil Primary Care Provider [phone] David Bell MD Unavailable [phone] Danilo Dolan MD Unavailable [phone] Harvey Liriano MD Unavailable Unavailable Allergies Active [...] total) by mouth daily. 03/07/20 23 Active naloxone (NARCAN) 4 MG/0.1ML nasal spray 1 spray by Nasal route as needed for Opioid reversal. may repeat every 2 to 3 minutes in alternating nostrils until medical assistance becomes available 1 each 12/25/19 25 026 Active ondansetron (ZOFRAN-ODT) 4 MG disintegrating tablet Take 1 tablet (4 mg total) by mouth every 8 (eight) hours as needed for Nausea. 20 tablet 04/08/20 25 Active ondansetron (ZOFRAN-ODT) 4 MG disintegrating tablet Take 1 tablet (4 mg total) by mouth every 8 (eight) hours as needed for Nausea. 20 tablet 04/24/20 25 Active HYDROcodone-acetami nophen (NORCO) 5-325 MG tabletIndications:A cute Pain < 7 Day Supply Take 1 tablet by mouth every 6 (six) hours as needed. Indications: Acute Pain < 7 Day Supply 10 tablet 06/18/20 25 Active naproxen (NAPROSYN) 375 MG tablet Take 1 tablet (375 mg total) by mouth 2 (two) times daily with meals. 60 tablet 06/18/20 25 Active HYDROcodone-acetami nophen (NORCO) 5-325 MG tabletIndications:A cute Pain < 7 Day Supply Take 1 tablet by mouth every 6 (six) hours as needed. Indications: Acute Pain < 7 Day Supply 15 tablet 12/25/19 25 025 Discontin ued(Thera py completed ) HYDROcodone-acetami nophen (NORCO) 5-325 MG tabletIndications:A cute Pain < 3 Day Supply Take 1 tablet by mouth every 6 (six) hours as needed for Pain. Indications: Acute Pain < 3 Day Supply 12 tablet 03/26/20 25 025 Discontin ued(Thera py completed ) Active Problems Problem Noted Date Diagnosed Date Cervical radiculopathy 03/08/2023 Encounters Date Type Department Care Team Description 06/18/2025 9:20 AM CDT - 06/18/2025 1:23 PM CDT Emergency [facility] [place] [address] Radha Koroma NP Abdominal Pain Discharge Disposition: Home or Self Care (Routine Discharge) 06/18/2025 Travel 05/08/2025 10:05 AM CDT - 05/08/2025 10:11 AM CDT Emergency [facility] [place] [address] Jo Ann PA Wrist Pain Discharge Disposition: Home or Self Care (Routine Discharge) 05/08/2025 Travel 04/24/2025 7:53 AM CDT - 04/24/2025 11:04 AM CDT Emergency [facility] [place] [address] Sandra Shipman MD Abdominal Pain Discharge Disposition: Home or Self Care (Routine Discharge) 04/24/2025 Travel from Last 3 Months Family History [...] Sex Assigned at Female 12/25/2024 1:18 PM PHYSICIAN ASSISTANT CERTIFIED Legal Sex Female 4:07 PM PHYSICIAN ASSISTANT CERTIFIED Gender Identity Not on file Sexual Orientation Not on file Last Filed Vital Signs Vital Sign Reading Time Taken Comments Blood Pressure 170/92 06/18/2025 1:10 PM CDT Pulse 62 06/18/2025 11:19 AM CDT Temperature 36.6 C (97.9 F) 06/18/2025 9:16 AM CDT Respiratory Rate 18 06/18/2025 11:19 AM CDT Oxygen Saturation 97% 06/18/2025 1:10 PM CDT Inhaled Oxygen Concentration - - Weight 78.6 kg (173 lb 4.5 oz) 06/18/2025 9:16 A M CDT Height 157.5 cm (5' 2) 06/18/2025 9:16 AM CDT Body Mass Index 31.69 06/18/2025 9:16 AM CDT Plan of Treatment Health Maintenance [...] Solis, RN Medical Devices Implanted Type Area Diet Supervisor Device Identifier Shelf Expiration Date Model / Serial / Lot Graft Bone I Factor 2.5cc Allograft Putty Syringe - [id number] Implanted:Qt y: 1 on 03/08/2023 by Danilo Dolan MD at [facility] Bone N/A: Spine Cervical [employer] [id number] 07/19/2025 700-025 / / [id number] Zavation Cage [id number] Implanted:Qt y: 1 on 03/08/2023 by Danilo Dolan MD at [facility] Cage N/A: Spine Cervical 20-0607 / / Description:At c6-7 Zavation [id number] Cage Implanted:Qt y: 1 on [facility] Cage N/A: Spine Cervical [id number] / / Description:At c5-6 Zavation 32mm Plate Implanted:Qt y: 1 on 03/08/2023 by Danilo Dolan MD at [facility] Plate N/A: Spine Cervical [id number] / / Zavation 4.0x12mm Vsd Screw Implanted:Qt y: 6 on 03/08/[facility] Screw N/A: Spine Cervical [id number] / / Tissue Surgiflo 8ml - [id number] Implanted:Qt y: 1 on 03/08/2023 by Danilo Dolan MD at [facility] Sealant N/A: Spine Cervical [employer] 04/18/2024 [id number] / / [id number] Procedures Procedure Name Priority Date/Time Associated Diagnosis Comments LIPASE STAT 06/18/2025 12:01 PM CDT COMPREHENSIVE METABOLIC PANEL STAT 06/18/2025 12:01 PM CDT CULTURE, BACTERIA, BLOOD STAT 06/18/2025 10:[address] ABD+PEL WO CON STAT 06/18/2025 10: 31 AM CDT CULTURE, BACTERIA, BLOOD STAT 06/18/2025 10:24 AM CDT HC URINALYSIS AUTO W/O MICRO STAT 06/18/2025 10:22 AM CDT LACTIC ACID W REFLEX (SEPSIS) STAT 06/18/2025 10:22 AM CDT CBC W/DIFF AUTOMATED STAT 06/18/2025 10:22 AM CDT POCT URINE (BACK OFFICE) STAT 06/18/2025 9:[address] ABD+PEL W CON STAT 04/24/2025 9:20 AM CDT HC URINALYSIS AUTO W/O MICRO STAT 04/24/2025 8:31 AM CDT LIPASE STAT 04/24/2025 8:29 AM CDT COMPREHENSIVE METABOLIC PANEL STAT 04/24/2025 8:29 AM CDT CBC W/DIFF AUTOMATED STAT 04/24/2025 8:29 AM CDT from Last 3 Months Results * (ABNORMAL) COMPREHENSIVE METABOLIC PANEL (06/18/2025 12:01 PM CDT) Only the most recent of2 resultswithin the time period is included. [facility] Signature GLUCOSE 106(H) 70 - 99 MG/DL 06/18/2025 12:46 PM CDT [facility] BUN 8 7 - 18 MG/DL 06/18/2025 12:46 PM CDT [facility] CREATININE S/P/B 0.66 0.55 - 1.02 MG/DL 06/18/2025 12:46 PM CDT [facility] SODIUM S/P/B 137 136 - 145 MMOL/L 06/18/2025 12:46 PM CDT [facility] POTASSIUM S/P/B 4.0 3.5 - 5.1 MMOL/L 06/18/2025 12:46 PM CDT [facility] CHLORIDE S/P/B 110 97 - 115 MMOL/L 06/18/2025 12:46 PM CDT [facility] CO2 24.8 21 - 32 MMOL/L 06/18/2025 12:46 PM CDT [facility] CALCIUM S/P/B 9.2 8.5 - 10.1 MG/DL 06/18/2025 12:46 PM CDT [facility] BILIRUBIN TOTAL S/P/B 0.4 0.2 - 1.2 MG/DL 06/18/2025 12:46 PM CDT [facility] Comment: THIS ASSAY IS NOT RECOMMENDED FOR PATIENTS UNDERGOING TREATMENT WITH ELTROMBOPAG DUE TO THE POTENTIAL FOR FALSELY ELEVATED RESULTS. TOTAL PROTEIN S/P/B 8.0 6.4 - 8.2 G/DL 06/18/2025 12:46 PM CDT [facility] ALBUMIN S/P/B 3.8 3.4 - 5.0 G/DL 06/18/2025 12:46 PM CDT [facility] AST 25 15 - 37 U/L 06/18/2025 12:46 PM CDT [facility] ALT 35 14 - 55 U/L 06/18/2025 12:46 PM CDT [facility] ALKALINE PHOSPHATASE S/P/B 77 50 - 136 U/L 06/18/2025 12:46 PM CDT [facility] ANION GAP 2.2 2 - 10 MMOL/L 06/18/2025 12:46 PM CDT [facility] BUN CREATININE RATIO 12.2 6 - 26 06/18/2025 12:46 PM CDT [facility] A/G RATIO 0.9(L) 1.0 - 2.0 RATIO 06/18/2025 12:46 PM CDT [facility] GFR ESTIMATE >90 >90 ML/MIN/1.7 3 M2 06/18/2025 12:46 PM CDT [facility] Comment: NOTE: eGFR is not calculated for patients <18 years of age or gender unknown. This is an estimated GFR calculation using the new CKD EPI creatinine equation without race and so does not require a correction factor for race. This estimated GFR should not be used for calculating drug doses. 06/18/2025 12:0 1 PM CDT Radha Koroma NP LABORATORY Final Result [facility] [address] [place] [address], [place] [phone] * LIPASE (06/18/2025 12:01 PM CDT) Only the most recent of2 resultswithin the time period is included. LIPASE 45 13 - 75 UNITS/L 06/18/2025 12:46 PM CDT [facility] 06/18/2025 12:0 1 PM CDT us Radha Koroma NP LABORATORY Final Result Performing Organization Address City/[facility]/ZIP Co de Phone Number [facility] [address] [place] [address], [place] [phone] * CULTURE, BACTERIA, BLOOD (06/18/2025 10:48 AM CDT) Only the most recent of2 resultswithin the time period is included. SPEC DESCRIPTION BLOOD 06/18/2025 9:16 AM CDT [facility] SPECIAL REQUESTS NO SPECIAL REQUEST 06/18/2025 9:16 AM CDT [facility] CULTURE RESULT NO GROWTH 5 DAYS 06/23/2025 11:10 AM CDT [facility] BLOOD SPECIMEN OBTAINED FOR BLOOD CULTURE / Unknown 06/18/2025 10:48 AM CDT 06/18/2025 10:57 AM CDT us Radha Koroma NP MICROBIOLOGY - GENERAL ORDERA BLES Final Result Performing Organization Address [facility] Co de Phone Number [facility] [address] [place] [address], [place] [phone] * CT ABD+PEL WO CON (06/18/2025 10:31 AM CDT) Anatomical Region Laterality Modality Abdomen Computed Tomogra phy 06/18/2025 10:5 0 AM CDT Impressions 06/18/2025 10:57 AM CDT IMPRESSION: 1. Limited noncontrast assessment complex cystic enlarged appearance of the right ovary. Nonspecific. Further evaluation with pelvic ultrasound can be considered. 2. No other potential acute or localizing abdominal pelvic findings seen to provide a potential explanation for the patient's symptoms. 3. Right renal solitary punctate nonobstructing stone 4. Suspected mild hepatic steatosis and related hepatomegaly. 5. Cholecystectomy. 6. Other nonemergent, incidental, stable and potential chronic findings as discussed in the report body above. Ordered By: RADHA KOROMA Interpreted By: Yong Llamas MD, 06/18/2025 10:50 AM Narrative 06/18/2025 10:57 AM CDT [facility] [address] [place], [place] [address] Exam: CT abdomen and pelvis without contrast Exam Date/Time: 06/18/2025 10:21 AM Indication: 44 female. Right-sided abdominal pain for 3 days Comparison: CT abdomen pelvis 04/24/2025 Technique: Computed tomography of the abdomen and pelvis was performed without contrast. A dose lowering technique was used for this procedure, which may include, but is not limited to, dose reduction technique, automated exposure control, the use of iterative reconstruction, and ALARA (As Low As Reasonably Achievable) / Image Gently techniques. CT findings: LOWER CHEST Normal cardiac size. No pericardial or pleural effusion. Clear lung bases. Limited noncontrast assessment of the soft tissues of viscera. UPPER ABDOMEN Liver and bile ducts: Mild hepatomegaly with left hepatic lobe hypertrophy. Smooth contour Probable underlying mild hepatic steatosis. Right hepatic lobe subcentimeter hypodensity too small to characterize. No other focal noncontrast finding. No intra or extrahepatic biliary tree dilatation. . Gallbladder: Cholecystectomy. Pancreas: Unenhanced pancreas is unremarkable. Spleen: Unenhanced spleen is unremarkable RETROPERITONEUM Adrenals: Normal Kidneys: Right renal 2 mm punctate nonobstructing stone. Is unremarkable noncontrast appearance of the kidneys. Normal size and contour. No focal finding, collecting system obstruction or perinephric stranding.. Lymph nodes: No abdominal mesenteric, retroperitoneal or pelvic adenopathy. BOWEL AND PERITONEUM Bowel: Normal in caliber and wall thickness. No acute other significant gastrointestinal tract finding within study limits Free air or fluid: None. PELVIS Complex cystic appearance of the right ovary large complex cystic appearance of the right ovary measuring 3.4 x 5.0 x 4.3 cm. Left ovarian physiologic cyst. Distended unremarkable urinary bladder. BONES/SOFT TISSUES Minimal degenerative change. No concerning musculoskeletal finding. Procedure Note Yong Llamas MD - 06/18/2025 [facility] [address] [place], [place] [address] Exam: CT abdomen and pelvis without contrast Exam Date/Time: 06/18/2025 10:21 AM Indication: 44 female. Right-sided abdominal pain for 3 days Comparison: CT abdomen pelvis 04/24/2025 Technique: Computed tomography of the abdomen and pelvis was performedwithout contrast. A dose lowering technique was used for this procedure,which may include, but is not limited to, dose reduction technique,automated exposure control, the use of iterative reconstruction, and ALARA(As Low As Reasonably Achievable) / Image Gently techniques. CT findings: LOWER CHEST Normal cardiac size. No pericardial or pleural effusion. Clear lungbases. Limited noncontrast assessment of the soft tissues of viscera. UPPER ABDOMEN Liver and bile ducts: Mild hepatomegaly with left hepatic lobehypertrophy. Smooth contour Probable underlying mild hepatic steatosis.Right hepatic lobe subcentimeter hypodensity too small to characterize. Noother focal noncontrast finding. No intra or extrahepatic biliary treedilatation. . Gallbladder: Cholecystectomy. Pancreas: Unenhanced pancreas is unremarkable. Spleen: Unenhanced spleen is unremarkable RETROPERITONEUM Adrenals: Normal Kidneys: Right renal 2 mm punctate nonobstructing stone. Is unremarkablenoncontrast appearance of the kidneys. Normal size and contour. No focalfinding, collecting system obstruction or perinephric stranding.. Lymph nodes: No abdominal mesenteric, retroperitoneal or pelvicadenopathy. BOWEL AND PERITONEUM Bowel: Normal in caliber and wall thickness. No acute other significantgastrointestinal tract finding within study limits Free air or fluid: None. PELVIS Complex cystic appearance of the right ovary large complex cysticappearance of the right ovary measuring 3.4 x 5.0 x 4.3 cm. Left ovarianphysiologic cyst. Distended unremarkable urinary bladder. BONES/SOFT TISSUES Minimal degenerative change. No concerning musculoskeletal finding. IMPRESSION: 1. Limited noncontrast assessment complex cystic enlarged appearance ofthe right ovary. Nonspecific. Further evaluation with pelvic ultrasoundcan be considered. 2. No other potential acute or localizing abdominal pelvic findings seento provide a potential explanation for the patient's symptoms. 3. Right renal solitary punctate nonobstructing stone 4. Suspected mild hepatic steatosis and related hepatomegaly. 5. Cholecystectomy. 6. Other nonemergent, incidental, stable and potential chronic findings asdiscussed in the report body above. Ordered By: RADHA KOROMA Interpreted By: Yong Llamas MD, 06/18/2025 10:50 AM us Radha Koroma CABLE INSTALLER CT Final Result * LACTIC ACID W REFLEX (SEPSIS) (06/18/2025 10:22 AM CDT) LACTIC ACID VENOUS 1.2 0.4 - 2.0 MMOL/L 06/18/2025 11:07 AM CDT [facility] 06/18/2025 10:2 2 AM CDT us Radha Koroma CABLE INSTALLER LABORATORY Final Result [facility] [address] [place] [address], [place] [phone] * (ABNORMAL) URINALYSIS (06/18/2025 10:22 AM CDT) Only the most recent of2 resultswithin the time period is included. SPECIMEN TYPE URINE CLEAN CATCH 06/18/2025 9:42 AM CDT [facility] COLOR (U) YELLOW 06/18/2025 11:21 AM CDT [facility] TRANSPARENCY CLEAR 06/18/2025 11:21 AM CDT [facility] SPECIFIC GRAVITY (U) 1.023 1.001 - 1.030 06/18/2025 11:21 AM CDT [facility] U PH 6.5 5.0 - 9.0 06/18/2025 11:21 AM CDT [facility] LEUKOCYTES (U) NEGATIVE NEGATIVE 06/18/2025 11:21 AM CDT [facility] NITRITES NEGATIVE NEGATIVE 06/18/2025 11:21 AM CDT [facility] PROTEIN RANDOM (U) NEGATIVE <30 MG/DL 06/18/2025 11:21 AM CDT [facility] GLUCOSE (U) 70(A) NORMAL MG/DL 06/18/2025 11:21 AM CDT [facility] KETONES MG/DL (U) NEGATIVE NEGATIVE MG/DL 06/18/2025 11:21 AM CDT [facility] UROBILINOGEN NORMAL NORMAL MG/DL 06/18/2025 11:21 AM CDT [facility] BILIRUBIN (U) NEGATIVE NEGATIVE MG/DL 06/18/2025 11:21 AM CDT [facility] BLOOD (U) NEGATIVE NEGATIVE 06/18/2025 11:21 AM CDT [facility] URINE SPECIMEN OBTAINED BY CLEAN CATCH PROCEDURE / Unknown 06/18/2025 10:22 AM CDT Radha Koroma NP URINE ORDERABLES Final Result [facility] [address] [place] [address], [place] [phone] * (ABNORMAL) CBC W/DIFF AUTOMATED (06/18/2025 10:22 AM CDT) Only the most recent of2 resultswithin the time period is included. WBC 15.09(H) 4.5 - 11.0 x10'3/uL 06/18/2025 10:45 AM CDT [facility] RBC 5.88(H) 4.20 - 5.40 x10'6/uL 06/18/2025 10:45 AM CDT [facility] HGB 17.9(H) 12.0 - 16.0 G/DL 06/18/2025 10:45 AM CDT [facility] HCT 52.3(H) 38.0 - 48.0 % 06/18/2025 10:45 AM CDT [facility] MCV 88.9 81.0 - 99.0 FL 06/18/2025 10:45 AM CDT [facility] MCH 30.4 27.0 - 31.0 PG 06/18/2025 10:45 AM [facility] MCHC 34.2 32.0 - 36.0 G/DL 06/18/2025 10:45 AM [facility] RDW 15.2(H) 11.5 - 14.5 % 06/18/2025 10:45 AM T [facility] PLT 301 130 - 400 x10'3/uL 06/18/2025 10:45 AM T [facility] MPV 9.6 9.3 - 12.2 FL 06/18/2025 10:45 AM T [facility] DIFFERENTIAL TYPE AUTOMATED DIFFERENTIAL 06/18/2025 10:45 AM CDT [facility] NEUTROPHILS % 77.4 % 06/18/2025 10:45 AM T [facility] LYMPHOCYTES % 17.0 % 06/18/2025 10:45 AM T [facility] MONOCYTES % 4.3 % 06/18/2025 10:45 AM T [facility] EOSINOPHILS 0.5 % 06/18/2025 10:45 AM T [facility] BASOPHILS 0.4 % 06/18/2025 10:45 AM CDT [facility] IMMATURE GRANS % 0.4 % 06/18/20 10:45 AM CDT [facility] ABS. NEUTROPHILS 11.69(H) 1.80 - 7.70 x10'3/uL 06/18/2025 10:45 AM CDT [facility] ABS. LYMPHOCYTES 2.56 1.00 - 4.80 x10'3/uL 06/18/2025 10:45 AM CDT [facility] ABS. MONOCYTES 0.65 0.24 - 0.86 x10'3/uL 06/18/2025 10:45 AM CDT [facility] ABS. EOSINOPHILS 0.07 0.04 - 0.36 x10'3/uL 06/18/2025 10:45 AM CDT [facility] ABS. BASOPHILS 0.06 0.01 - 0.08 x10'3/uL 06/18/2025 10:45 AM CDT [facility] ABS. IMMATURE GRANULOCYTES 0.06 0.00 - 0.49 x10'3/uL 06/18/2025 10:45 AM CDT [facility] 06/18/2025 10:2 2 AM CDT Radha Koroma NP LABORATORY Final Result [facility] [address] [place] [address], * POCT urine (06/18/2025 9:25 AM CDT) URINE HCG TEST NEGATIVE Internal Control: VALID 06/18/2025 9:25 AM CDT Radha Koroma NP POINT OF CARE TEST ORDERABLES Final Result * CT ABD+PEL W IV CON ONLY [...] 9:39 AM Narrative 04/24/2025 10:01 AM CDT [address] [address] EXAMINATION: CT Abdomen and Pelvis with contrast [...] Procedure Note Raz Levin MD - 04/24/[address] [address] EXAMINATION: CT Abdomen and Pelvis with contrast [...] AM Sandra Shipman MD CT Final Result from Last 3 Months Insurance [facility] Advance Directives * Full Code (Latest Code Status on File) Date Activated Date Inactivated Comments 03/09/2023 12:43 AM 03/09/2023 6:15 PM Care Teams Baffle Installer Relationship Specialty Start Date End Date RoperDino EmilDO [address] [place] [address] PCP - General FAMILY PRACTICE 01/23/23 David Bell MD [address] [place] [address] Referring Physician MEDICAL ONCOLOGY 03/01/23 Danilo Dolan MD [address] [address] NEUROLOGICAL SURGERY 03/01/23 Harvey Liriano MD [address] [address] CARDIOVASCULAR DISEASE 03/07/23
[2025-07-14 07:15] VITALS: BP 113/63; PULSE 77; RESP 18; TEMP 36.1; O2SAT 100; BMI 32.7
[2025-07-14] MEDS: LACTATED RINGERS 1,000 ML 150 ML IV CONT (07:18)
[2025-07-14 07:19] LABS: BEDSIDEPREGUCG Negative (Negative)
--- NOTE | 2025-07-14 07:54 | WPDANESEPPF ---
Anes - Initial Pre Proc Eval Procedure: Operation Date: 07/14/25 08:30 Proposed Procedures p Colonoscopy - Tej Hannah MD Date/Time: 07/14/25 07:54 Surgeon: Tej Hannah MD Pre Op Diagnosis: IBS, Abdominal pain Patient Data Age: 44 Gender: F Height: 1.57 m Weight: 81.2 kg Last Vital Signs Temp 36.1 C L 07/14/25 07:15 Pulse 77 07/14/25 07:15 Resp 18 07/14/25 07:15 BP 113/63 07/14/25 07:15 Pulse Ox 100 07/14/25 07:15 O2 Del Method Room Air 07/14/25 07:15 Allergies Allergy/AdvReac Type Severity Reaction Status Date / Time No Known Allergies Allergy Verified 07/14/25 07:13 Home Medications ?Medication ?Instructions ?Recorded ?Confirmed ?Type fluticasone 250 mcg-salmeterol 50 1 ea inhalation BID 02/14/24 07/01/25 History mcg/dose blistr powdr for inhalation metformin 500 mg tablet,extended 500 mg PO BID 02/14/24 07/14/25 History release 24 hr buspirone 15 mg tablet 15 mg PO TID 09/26/24 07/14/25 History dicyclomine 20 mg tablet 20 mg PO BID PRN abdominal pain 01/17/25 07/01/25 Rx #10 tabs pantoprazole 40 mg tablet,delayed 40 mg PO HS 4 weeks #28 tabs 01/17/25 07/01/25 Rx release hydrocodone 5 mg-acetaminophen 325 1 - 2 tablet PO Q6H PRN pain #20 02/05/25 07/01/25 Rx mg tablet tabs cyclobenzaprine 10 mg tablet 10 mg PO TID PRN muscle spasm #10 04/10/25 07/01/25 Rx tabs Laboratory Tests 07/14/25 07:17 POC Urine HCG, Qual Negative (Negative) Patient hx anesthesia problems: none Family hx anesthesia problems: none Results Review: All pre-operative results and documents have been reviewed as part of the pre-operative evaluation. [facility] Past Medical History Medical History Leukocytosis Chronic elevation with hematology consult in past. 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 Surgical History Surgical History History of appendectomy History of cholecystectomy History of cervical spinal surgery (03/08/23) anterior cervical discectomy and fusion Family History Family History Father Hypertension Patient's father is in good health Cerebrovascular accident Family history of heart disease in male family member before age 55 Mother Patient's mother is in good health Family history of diabetes mellitus in first degree relative Sibling Family history of diabetes mellitus in first degree relative Social History Social History Social History: Surrogate medical decision maker: Chinmay Muñoz, spouse ([phone]). Code status: Full code. Smoking packs per day: 1 Smoking cigarettes per day: 20.0 Years smoked: 30 Smoking pack-years: 30.00 Smoking status: Current every day smoker Tobacco type: cigarettes Second hand tobacco smoke exposure: Yes Alcohol intake: never Alcohol use details: rarely drinks, a couple time a month Substance use: current Substance use type: marijuana Other substance usage details: hs for insomnia Last use: Marijuana 10/14/24 Do You Feel Safe in your Home?: Yes Lack of Transportation: No Lack of Food: Never True Current Housing: I Have Housing Concerned About Future Housing: No Difficulty Paying Gas/Electric Bills: No Difficulty Paying for Meds: No Currently Unemployed: No Education: Grade School Difficulty w/ Childcare or Family Care: No Living arrangements: with family Additional living arrangements comments: Lives with father and . 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 Spiritual care concerns: No Agree to blood products: Yes Anes - Eval Final PreProcedure Day of Procedure 07/14/25 07:54 Patient weight: obese Heart: regular rate and rhythm Lungs: clear to auscultation Airway: Mallampati scale class II Neurological: alert and oriented Last oral intake: >/= 8 hours ASA classification: III Emergent: no Anesthetic plan: proceed Anesthesia type and monitoring: general GIVS and standard monitoring Results Review: All pre-operative results and documents have been reviewed as part of the pre-operative evaluation. Informed Consent: The patient's anesthetic plan and its attendant risks and benefits were discussed with the patient/family/POA. Questions were solicited and answers provided to the satisfaction of the patient/family/POA.
--- NOTE | 2025-07-14 08:54 | PM.IMHP ---
H&P: HPI History of Present Illness Date/Time: 07/14/25 08:54 Chief Complaint: Family history of colon polyps Narrative: This patient has family history of colorectal cancer. her father was recently diagnosed with a large tubulovillous adenoma. This is her 1st colonoscopy. Review of Systems Review of Systems: All systems reviewed & are unremarkable except as noted in HPI and below PMFSH Past Medical History Medical History Leukocytosis Chronic elevation with hematology consult in past. 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 Surgical History Surgical History History of appendectomy History of cholecystectomy History of cervical spinal surgery (03/08/23) anterior cervical discectomy and fusion Family History Family History Father Hypertension Patient's father is in good health Cerebrovascular accident Family history of heart disease in male family member before age 55 Mother Patient's mother is in good health Family history of diabetes mellitus in first degree relative Sibling Family history of diabetes mellitus in first degree relative Social History Social History Social History: Surrogate medical decision maker: Chinmay Muñoz, spouse ([phone]). Code status: Full code. Smoking packs per day: 1 Smoking cigarettes per day: 20.0 Years smoked: 30 Smoking pack-years: 30.00 Smoking status: Current every day smoker Tobacco type: cigarettes Second hand tobacco smoke exposure: Yes Alcohol intake: never Alcohol use details: rarely drinks, a couple time a month Substance use: current Substance use type: marijuana Other substance usage details: hs for insomnia Last use: Marijuana 10/14/24 Do You Feel Safe in your Home?: Yes Lack of Transportation: No Lack of Food: Never True Current Housing: I Have Housing Concerned About Future Housing: No Difficulty Paying Gas/Electric Bills: No Difficulty Paying for Meds: No Currently Unemployed: No Education: Grade School Difficulty w/ Childcare or Family Care: No Living arrangements: with family Additional living arrangements comments: Lives with father and . 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 Spiritual care concerns: No Agree to blood products: Yes Meds Home Medications and Allergies Home Medications ?Medication ?Instructions ?Recorded ?Confirmed ?Type fluticasone 250 mcg-salmeterol 50 1 ea inhalation BID 02/14/24 07/01/25 History mcg/dose blistr powdr for inhalation metformin 500 mg tablet,extended 500 mg PO BID 02/14/24 07/14/25 History release 24 hr buspirone 15 mg tablet 15 mg PO TID 09/26/24 07/14/25 History dicyclomine 20 mg tablet 20 mg PO BID PRN abdominal pain 01/17/25 07/01/25 Rx #10 tabs pantoprazole 40 mg tablet,delayed 40 mg PO HS 4 weeks #28 tabs 01/17/25 07/01/25 Rx release hydrocodone 5 mg-acetaminophen 325 1 - 2 tablet PO Q6H PRN pain #20 02/05/25 07/01/25 Rx mg tablet tabs cyclobenzaprine 10 mg tablet 10 mg PO TID PRN muscle spasm #10 04/10/25 07/01/25 Rx tabs Allergies Allergy/AdvReac Type Severity Reaction Status Date / Time No Known Allergies Allergy Verified 07/14/25 07:13 Vital Signs Vital Signs - 24 hr 07/14/25 07:15 Temperature 97.0 F L Pulse Rate 77 Respiratory Rate 18 Blood Pressure 113/63 Pulse Oximetry 100 Oxygen Delivery Room Air Exam Const: General: cooperative and healthy appearing Resp: Effort & Inspection: normal respiratory effort and able to speak in complete sentences Auscultation: clear to auscultation bilaterally Cardio: Rate: regular rate Rhythm: regular rhythm GI: Inspection: normal to inspection GI Palp: No No hepatosplenomegaly present Auscultation: normal bowel sounds Rectal Exam: deferred Skin: General skin exam: normal color Psych: Appearance: grossly normal Mental Status: mental status grossly normal Assessment and Plan Assessment and plan (1) Family history of polyps in the colon: Code(s): Z83.719 - Family history of colon polyps, unspecified Status: Acute Assessment and Plan: The patient is deemed a good candidate for the procedure. Consent signed. Will proceed.
--- NOTE | 2025-07-14 09:22 | S_PTH ---
PATIENT: Lissa Muñoz LOC: [facility] U#:[id number] AGE/SX: 44/F ROOM: RE07/14/[address]: Tej Hannah MD : [id number] BED: DIS: 07/14/2025 SPEC #: [id number] RECD: 07/14/25 10:12 STATUS: CANDY REDylan #: [id number] MAIKOL: 07/14/25 09:[address]: Tej Hannah DEPT: [facility] Surgical RECD BY: Matthew Ross ENTERED: 07/14/25 10:13 SP TYPE: Surgical OTHR DR: TILE DITCHER PHYSICIAN Tissues: A - Colon Polypectomy Procedures: Hematoxylin and Eosin Stain Gross and Microscopic Level 4
[2025-07-14 09:24] VITALS: BP 111/67; PULSE 77; RESP 22; O2SAT 100
[2025-07-14 09:34] VITALS: BP 109/65; PULSE 79; RESP 19; O2SAT 100
[2025-07-14 09:44] VITALS: BP 103/68; PULSE 80; RESP 21; O2SAT 100
== END 2025-07-14 09:54 | disposition home or self-care (01) ==
PROVIDERS: Anesthesiology; Referring Provider Nurse Practitioner Family; Visit Provider Internal Medicine Gastroenterology
PROC: 0DJD8ZZ Inspection of Lower Intestinal Tract, Via Natural or Artificial Opening Endoscopic (ICD-10-PCS; CPT 45378; principal; 2025-07-14 08:30)
DX: Z12.11 Encounter for screening for malignant neoplasm of colon (principal); D12.2 Benign neoplasm of ascending colon; E78.5 Hyperlipidemia, unspecified; I10 Essential (primary) hypertension; E28.2 Polycystic ovarian syndrome; K58.0 Irritable bowel syndrome with diarrhea; J45.909 Unspecified asthma, uncomplicated; F17.210 Nicotine dependence, cigarettes, uncomplicated; F12.90 Cannabis use, unspecified, uncomplicated; G89.29 Other chronic pain; E66.9 Obesity, unspecified; Z68.32 Body mass index [BMI] 32.0-32.9, adult; Z79.51 Long term (current) use of inhaled steroids; Z79.84 Long term (current) use of oral hypoglycemic drugs; Z79.891 Long term (current) use of opiate analgesic; Z98.890 Other specified postprocedural states; Z90.49 Acquired absence of other specified parts of digestive tract; Z98.1 Arthrodesis status; Z87.442 Personal history of urinary calculi; Z83.719 Family history of colon polyps, unspecified; Z82.49 Family history of ischemic heart disease and other diseases of the circulatory system
CPT/HCPCS: 45390; 88305; J2003; J2704; J7120